=== PATIENT | female | born 1935 | race Caucasian/White ===

== ENCOUNTER 2018-01-11 13:38 | Inpatient (IN) | payer OTHER ==
[2018-01-11] MEDS ORDERED: PANTOPRAZOLE 40 MG INJ ONE (15:44)
[2018-01-11] MEDS ORDERED: CEFTRIAXONE 1000 MG/VIAL ONE (15:44)
[2018-01-11] MEDS ORDERED: LEVALBUTEROL 1.25 MG/3 ML NEB ONE (15:44)
[2018-01-11] MEDS ORDERED: NA CHLORIDE 0.9% 0 ML IV ONE (15:44)
[2018-01-11] MEDS ORDERED: IPRATROPIUM BROM 0.5MG/2.5ML ONE (15:44)
[2018-01-11] MEDS ORDERED: NA CHLORIDE 0.9% 1,000 ML ONE ×2 (15:45→18:27)
[2018-01-11] MEDS ORDERED: AZITHROMYCIN 500 MG/250 ML BAG ONE (15:45)
[2018-01-11] MEDS ORDERED: CEFTRIAXONE/SWI 1gm 1 GM/10 ML SYR ONE (15:48)
[2018-01-11 16:13] LABS: Absolute Lymphocytes (CBC) 1.5 K/uL (0.7-4.9); Absolute Monocytes 0.6 K/uL (0.1-1.3); Absolute Neutrophil 6.2 K/uL (1.8-8.0); Basophils % 0.7 % (0-1.3); Eosinophils % 0.4 % (0-4.4); Hematocrit 34.2 % (36.0-45.0); Lymphocytes % 17.3 % (15.3-44.8); MCH 29.9 pg (27.0-35.0); MCV 91.1 fL (80-100); MPV 7.8 fL (7.6-11.3); Monocytes % 7.4 % (3.3-12.3); RBC Red Blood Cell Count 3.76 M/uL (3.86-4.86)
[2018-01-11 16:29] LABS: Protime INR 0.99
[2018-01-11 16:32] LABS: Potassium 3.9 mEq/L (3.6-5.0)
[2018-01-11 16:39] LABS: Albumin 3.7 g/dL (3.2-5.5); Bilirubin Direct 0.1 mg/dL (0-0.2); Bilirubin Total 0.7 mg/dL (0.3-1.2); Protein, Total 7.9 g/dL (6.0-8.3)
[2018-01-11 16:41] LABS: CKMB Creatine Kinase MB 1.3 ng/ml (0.3-4.0)
[2018-01-11 16:44] LABS: Magnesium 3.6 mg/dL (1.8-2.5)
--- NOTE | 2018-01-11 17:23 | ER ---
Nurse's Notes [facility] Name: Veena Gray Age: 83 yrs Sex: Female : 1935 Arrival Date: 01/11/2018 Time: 13:46 Bed 25 Private MD: Diagnosis: Weakness;Hypercalcemia;Hypermagnesemia;Unspecified kidney failure Presentation: 01/11 13:46 Presenting complaint: Patient states: I am sure I am having another UTI, I am being la1 treated for one and I cant get rid of it. I am very weak and having trouble getting up and down. Transition of care: patient was not received from another setting of care. Onset of symptoms was January 11, 2018. Initial Sepsis Screen: Does the patient meet any 2 criteria? No. Patient's initial sepsis screen is negative. Does the patient have a suspected source of infection? No. Patient's initial sepsis screen is negative. Care prior to arrival: None. 13:46 Method Of Arrival: Wheelchair la1 13:46 Acuity: RITIKA 3 la1 Historical: - Allergies: 13:47 Codeine; la1 13:47 Nitrofurantoin; la1 13:47 PENICILLINS; la1 13:47 Sulfa (Sulfonamide Antibiotics); la1 13:47 Macrobid; la1 - PMHx: 13:47 GERD; hiatal hernia; Myocardial infarction; Vertigo; la1 - Immunization history:: Adult Immunizations up to date. - Social history:: Smoking status: Patient/guardian denies using tobacco. - Family history:: not pertinent, pertinent for unknown. Screenin:18 Abuse screen: Denies threats or abuse. Denies injuries from another. Nutritional ed1 screening: No deficits noted. Tuberculosis screening: No symptoms or risk factors identified. Fall Risk No fall in past 12 months (0 pts). No secondary diagnosis (0 pts). No IV (0 pts). Ambulatory Aid- Crutches/Cane/Walker (15 pts). Gait- Weak (10 pts.). Mental Status- Oriented to own ability (0 pts). Total Vigil Fall Scale indicates Low Risk Score (25-44 pts). Fall prevention measures have been instituted. Side Rails Up X 2 Frequent Obs/Assesments occuring Family Present and informed to notify staff if they need to leave bedside As available Patient and Family Educated on Fall Prevention Program and strategies. Assessment: 14:18 General: Appears in no apparent distress. Behavior is calm, cooperative. Pain: Denies ed1 pain. Neuro: Level of Consciousness is awake, alert, obeys commands, Oriented to person, place, time, situation, Relocation Counselor are equal bilaterally Gait is weak. Speech slow. Facial symmetry appears normal, Pupils are PERRLA, Intact Reports blurred vision since 3-4 days ago weakness Denies dizziness, difficulty swallowing, paresthesias numbness headache photophobia diplopia. Cardiovascular: Denies chest pain, Heart tones S1 S2 present. Respiratory: Airway is patent Respiratory effort is even, unlabored, Breath sounds are clear bilaterally. GI: Abdomen is non-distended, Bowel sounds present X 4 quads. Abd is soft and non tender X 4 quads. Reports nausea, Patient currently denies diarrhea, vomiting. : Reports seeing urologist and previous treatment with Doxycycline for recurrent UTI's. EENT: No signs and/or symptoms were reported regarding the EENT system. Derm: Skin is intact, is thin, with poor turgor Skin is dry, Skin is normal, Skin temperature is warm. Musculoskeletal: Circulation, motion, and sensation intact. 14:18 Reassessment: I agree with assessment completed by FLOR Gonzalez . aa5 14:39 Reassessment: Patient appears in no apparent distress at this time. No changes from ed1 previously documented assessment. Patient and/or family updated on plan of care and expected duration. Pain level reassessed. Patient is alert, oriented x 3, equal unlabored respirations, skin warm/dry/pink. 16:15 Reassessment: Patient appears in no apparent distress at this time. No changes from mb3 previously documented assessment. Patient and/or family updated on plan of care and expected duration. Pain level reassessed. Patient is alert, oriented x 3, equal unlabored respirations, skin warm/dry/pink. Patient states symptoms have improved. Vital Signs: 13:47 BP 136 / 79; Pulse 77; Resp 19; Temp 98.3; Pulse Ox 100% on R/A; Weight 63.96 kg; la1 Height 5 ft. 3 in. (160.02 cm); 14:39 BP 167 / 66; Pulse 70; Resp 20; Pulse Ox 93% on R/A; Pain 0/10; ed1 16:14 BP 151 / 91; Pulse 72; Resp 20; Pulse Ox 100% on R/A; mb3 19:26 BP 149 / 49; Pulse 59; Resp 20; Pulse Ox 97% on R/A; mb3 13:47 Body Mass Index 24.98 (63.96 kg, 160.02 cm) la1 ED Course: 13:46 Patient arrived in ED. la1 13:47 Triage completed. la1 13:47 Arm band placed on left wrist. la1 14:10 Lisa Morales LVN is Primary Nurse. ed1 14:18 Patient has correct armband on for positive identification. Bed in low position. Call ed1 light in reach. Side rails up X2. Adult w/ patient. monitoring specialist on. Pulse ox on. NIBP on. Warm blanket given. 14:21 Awaiting ED provider evaluation. ed1 14:40 Resting quietly. Awaiting ED provider evaluation. ed1 14:40 Sridhar Acevedo MD is Attending Physician. [facility] 14:45 Primary Nurse role handed off by Lisa Morales LVN [facility] 14:45 Nelson Dawkins, RACH is Primary Nurse. 3 15:00 Inserted saline lock: 20 gauge in left antecubital area, using aseptic technique. Blood 3 collected. 15:17 Door closed. Warm blanket given. 3 15:51 X-ray completed. Portable x-ray completed in exam room. Patient tolerated procedure jw2 well. 15:51 XRAY Chest (1 view) In Process Unspecified. EDMS 16:50 Urine collected: clean catch specimen, clear, EKG done, by ED staff, reviewed by Sridhar Acevedo MD. 17:20 Vinay Sabillon MD is Hospitalizing Provider. [facility] 18:09 Removal of peripheral IV. Catheter intact, dressing applied. [facility] 18:10 T\T\S collected, blood band applied to patient. add on labs drawn by ar and sent to lab. [facility] Inserted saline lock: 20 gauge in right antecubital area, using aseptic technique. Blood collected. 18:16 CT completed. Patient tolerated procedure well. Patient moved back from CT. Patient bq moved back from radiology. 19:56 No provider procedures requiring assistance completed. Patient admitted, IV remains in [address]. Administered Medications: 15:40 Drug: NS 0.9% 1000 ml Route: IV; Rate: 125 ml/hr; Site: left antecubital; mb3 19:12 Follow up: Response: No adverse reaction mb3 19:13 Follow up: Response: No adverse reaction mb3 19:15 Follow up: IV Status: Infusion continued upon admission mb3 15:40 Drug: Xopenex 1.25 mg Route: Inhalation; mb3 15:40 Drug: AtroVENT Aerosol 0.5 mg Route: Inhalation; mb3 19:13 Follow up: Response: No adverse reaction mb3 15:45 Drug: ProTONIX 40 mg Route: IVP; Site: left antecubital; mb3 19:12 Follow up: Response: No adverse reaction mb3 15:46 Drug: Rocephin - (cefTRIAXone) 1 grams Route: IVPB; Infused Over: 10 mins; Site: left mb3 antecubital; 19:14 Follow up: Response: No adverse reaction; IV Status: Completed infusion mb3 15:50 Drug: Zithromax 500 mg Route: IVPB; Infused Over: 1 hrs; Site: left antecubital; mb3 19:14 Follow up: Response: No adverse reaction; IV Status: Completed infusion mb3 17:35 Drug: NS 0.9% 1000 ml Route: IV; Rate: 1 bolus; Site: left antecubital; mb3 19:13 Follow up: Response: No adverse reaction; IV Status: Completed infusion; IV Intake: mb3 1000ml 20:18 Follow up: Response: No adverse reaction; IV Status: Completed infusion; IV Intake: mb3 1000ml 19:04 Drug: NS 0.9% 500 ml Route: IV; Rate: bolus; Site: right antecubital; mb3 20:18 Follow up: Response: No adverse reaction; IV Status: Completed infusion; IV Intake: mb3 500ml 19:50 Drug: Lasix 40 mg Route: IVP; Site: right antecubital; mb3 20:19 Follow up: Response: No adverse reaction mb3 Intake: 19:13 IV: 1000ml; Total: 1000ml. mb3 20:18 IV: 1000ml; Total: 2000ml. mb3 20:18 IV: 500ml; Total: 2500ml. mb3 Outcome: 17:22 Decision to Hospitalize by Provider. miles 19:55 Admitted to Tele accompanied by tech, via stretcher, room 427, with chart, Report mb3 called to Laisha Reis RN 19:55 Condition: stable 19:55 Instructed on the need for admit. 20:20 Patient left the ED. mb3 Signatures: Dispatcher [employer] EDSridhar Frazier MD MD cha Quilty, Betty bq Calderon, Audri, RN RN aa5 Lisa Morales, AV SPECIALIST AV SPECIALIST ed1 Jeronimo Gomez RN RN amira1 Yesenia Hoover 2 Dina Pena 3 Nelson Dawkins RN RN mb3
--- NOTE | 2018-01-11 17:23 | EDPHYS ---
Physician Documentation [facility] Name: Veena Gray Age: 83 yrs Sex: Female : 1935 Arrival Date: 01/11/2018 Time: 13:46 Bed 25 Private MD: ED Physician Sridhar Acevedo HPI: 01/11 15:33 This 83 yrs old Female presents to ER via Wheelchair with complaints of miles General Weakness. 15:33 weakness, hemoptysis. Onset: The symptoms/episode began/occurred 1 week(s) ago. miles Severity of symptoms: At their worst the symptoms were mild. Historical: - Allergies: 13:47 Codeine; la1 13:47 Nitrofurantoin; la1 13:47 PENICILLINS; la1 13:47 Sulfa (Sulfonamide Antibiotics); la1 13:47 Macrobid; la1 - PMHx: 13:47 GERD; hiatal hernia; Myocardial infarction; Vertigo; la1 - Immunization history:: Adult Immunizations up to date. - Social history:: Smoking status: Patient/guardian denies using tobacco. - Family history:: not pertinent, pertinent for unknown. ROS: 15:33 Constitutional: Negative for fever, chills, and weight loss, Eyes: Negative for injury, miles pain, redness, and discharge, ENT: Negative for injury, pain, and discharge, Neck: Negative for injury, pain, and swelling, Cardiovascular: Negative for chest pain, palpitations, and edema, Respiratory: Negative for shortness of breath, cough, wheezing, and pleuritic chest pain, Abdomen/GI: Negative for abdominal pain, nausea, vomiting, diarrhea, and constipation, Back: Negative for injury and pain, : Negative for injury, bleeding, discharge, and swelling, MS/Extremity: Negative for injury and deformity, Skin: Negative for injury, rash, and discoloration, Neuro: Negative for headache, weakness, numbness, tingling, and seizure, Psych: Negative for depression, anxiety, suicide ideation, homicidal ideation, and hallucinations, Allergy/Immunology: Negative for hives, rash, and allergies. Exam: 15:33 Constitutional: This is a well developed, well nourished patient who is awake, alert, miles and in no acute distress. Head/Face: Normocephalic, atraumatic. Eyes: Pupils equal round and reactive to light, extra-ocular motions intact. Lids and lashes normal. Conjunctiva and sclera are non-icteric and not injected. Cornea within normal limits. Periorbital areas with no swelling, redness, or edema. ENT: Nares patent. No nasal discharge, no septal abnormalities noted. Tympanic membranes are normal and external auditory canals are clear. Oropharynx with no redness, swelling, or masses, exudates, or evidence of obstruction, uvula midline. Mucous membranes moist. Neck: Trachea midline, no thyromegaly or masses palpated, and no cervical lymphadenopathy. Supple, full range of motion without nuchal rigidity, or vertebral point tenderness. No Meningismus. Chest/axilla: Normal chest wall appearance and motion. Nontender with no deformity. No lesions are appreciated. Cardiovascular: Regular rate and rhythm with a normal S1 and S2. No gallops, murmurs, or rubs. Normal PMI, no JVD. No pulse deficits. Respiratory: Lungs have equal breath sounds bilaterally, clear to auscultation and percussion. No rales, rhonchi or wheezes noted. No increased work of breathing, no retractions or nasal flaring. Back: No spinal tenderness. No costovertebral tenderness. Full range of motion. Female : Normal external genitalia. Skin: Warm, dry with normal turgor. Normal color with no rashes, no lesions, and no evidence of cellulitis. 15:33 Abdomen/GI: Rectal exam: rectal tone normal, Stool: brown, hemorrhoid(s). Vital Signs: 13:47 BP 136 / 79; Pulse 77; Resp 19; Temp 98.3; Pulse Ox 100% on R/A; Weight 63.96 kg; la1 Height 5 ft. 3 in. (160.02 cm); 14:39 BP 167 / 66; Pulse 70; Resp 20; Pulse Ox 93% on R/A; Pain 0/10; ed1 16:14 BP 151 / 91; Pulse 72; Resp 20; Pulse Ox 100% on R/A; mb3 19:26 BP 149 / 49; Pulse 59; Resp 20; Pulse Ox 97% on R/A; mb3 13:47 Body Mass Index 24.98 (63.96 kg, 160.02 cm) la1 MDM: 14:40 Patient medically screened. [facility] 15:35 Data reviewed: half-way records. [facility] 01/11 15:31 Order name: Basic Metabolic Panel; Complete Time: 16:51 [facility] 01/11 15:31 Order name: BNP; Complete Time: 16:51 [facility] 01/11 15:31 Order name: CBC with Diff; Complete Time: 16:51 [facility] 01/11 15:31 Order name: Ckmb; Complete Time: 16:51 [facility] 01/11 15:31 Order name: CPK; Complete Time: 16:51 [facility] 01/11 15:31 Order name: LFT's; Complete Time: 16:51 [facility] 01/11 15:31 Order name: Magnesium; Complete Time: 16:51 [facility] 01/11 15:31 Order name: PT-INR; Complete Time: 16:51 [facility] 01/11 15:31 Order name: Ptt, Activated; Complete Time: 16:51 [facility] 01/11 15:31 Order name: Troponin (emerg Dept Use Only); Complete Time: 16:51 [facility] 01/11 15:31 Order name: Lipase; Complete Time: 16:51 [facility] 01/11 15:31 Order name: Blood Culture Adult (2) [facility] 01/11 15:31 Order name: Urine Culture [facility] 01/11 15:31 Order name: Type And Screen [facility] 01/11 15:31 Order name: XRAY Chest (1 view); Complete Time: 18:44 [facility] 01/11 17:16 Order name: Chest Abd Pelvis Wo Con; Complete Time: 18:44 EDMS 01/11 17:26 Order name: Urine Dipstick--Ancillary (enter results) ag 01/11 17:26 Order name: Urine Dipstick-Ancillary EDNE 01/11 17:26 Order name: Pth,Intact ag 01/11 17:26 Order name: PTH Intact EDNE 01/11 17:37 Order name: Vitamin D, 25 (OH), TOTAL EDMS 01/11 17:37 Order name: Vitamin D,1,25 Dihydroxy EDNE 01/11 15:31 Order name: EKG; Complete Time: 15:32 [facility] 01/11 15:31 Order name: Cardiac monitoring; Complete Time: 15:39 [facility] 01/11 15:31 Order name: EKG - Nurse/Tech; Complete Time: 16:50 [facility] 01/11 15:31 Order name: IV Saline Lock; Complete Time: 15:39 [facility] 01/11 15:31 Order name: Labs collected and sent; Complete Time: 15:39 [facility] 01/11 15:31 Order name: O2 Per Protocol; Complete Time: 15:39 [facility] 01/11 15:31 Order name: O2 Sat Monitoring; Complete Time: 15:39 [facility] 01/11 15:31 Order name: Urine Dipstick-Ancillary (obtain specimen); Complete Time: 16:50 [facility] 01/11 17:31 Order name: CONS Physician Consult; Complete Time: 19:12 EDMS Administered Medications: 15:40 Drug: NS 0.9% 1000 ml Route: IV; Rate: 125 ml/hr; Site: left antecubital; mb3 19:12 Follow up: Response: No adverse reaction mb3 19:13 Follow up: Response: No adverse reaction mb3 19:15 Follow up: IV Status: Infusion continued upon admission mb3 15:40 Drug: Xopenex 1.25 mg Route: Inhalation; mb3 15:40 Drug: AtroVENT Aerosol 0.5 mg Route: Inhalation; mb3 19:13 Follow up: Response: No adverse reaction mb3 15:45 Drug: ProTONIX 40 mg Route: IVP; Site: left antecubital; mb3 19:12 Follow up: Response: No adverse reaction mb3 15:46 Drug: Rocephin - (cefTRIAXone) 1 grams Route: IVPB; Infused Over: 10 mins; Site: left mb3 antecubital; 19:14 Follow up: Response: No adverse reaction; IV Status: Completed infusion mb3 15:50 Drug: Zithromax 500 mg Route: IVPB; Infused Over: 1 hrs; Site: left antecubital; mb3 19:14 Follow up: Response: No adverse reaction; IV Status: Completed infusion mb3 17:35 Drug: NS 0.9% 1000 ml Route: IV; Rate: 1 bolus; Site: left antecubital; mb3 19:13 Follow up: Response: No adverse reaction; IV Status: Completed infusion; IV Intake: mb3 1000ml 20:18 Follow up: Response: No adverse reaction; IV Status: Completed infusion; IV Intake: mb3 1000ml 19:04 Drug: NS 0.9% 500 ml Route: IV; Rate: bolus; Site: right antecubital; mb3 20:18 Follow up: Response: No adverse reaction; IV Status: Completed infusion; IV Intake: mb3 500ml 19:50 Drug: Lasix 40 mg Route: IVP; Site: right antecubital; mb3 20:19 Follow up: Response: No adverse reaction mb3 Disposition: 01/11/18 17:22 Hospitalization ordered by Vinay Sabillon for Inpatient Admission. Preliminary diagnosis are Weakness, Hypercalcemia, Hypermagnesemia, Unspecified kidney failure. - Bed requested for Telemetry/MedSurg (Inpatient). - Status is Inpatient Admission. mb3 - Condition is Serious. - Problem is new. - Symptoms have improved. UTI on Admission? No Signatures: Dispatcher [employer] EDNE Sridhar Acevedo MD MD cha Attema, Lee RN RN la1 Randa Arredondo RN RN df Nelson Dawkins RN RN mb3 Corrections: (The following items were deleted from the chart) 17:16 15:32 Chest Abdomen Pelvis W Con+CT.RAD.BRZ ordered. [facility] 18:40 17:22 Hospitalization Ordered by Vinay Sabillon MD for Inpatient Admission. df Preliminary diagnosis is Weakness; Hypercalcemia; Hypermagnesemia; Unspecified kidney failure. Bed requested for Telemetry/MedSurg (Inpatient). Status is Inpatient Admission. Condition is Serious. Problem is new. Symptoms have improved. UTI on Admission? No. miles 20:20 18:40 01/11/2018 17:22 Hospitalization Ordered by Vinay Sabillon MD for Inpatient mb3 Admission. Preliminary diagnosis is Weakness; Hypercalcemia; Hypermagnesemia; Unspecified kidney failure. Bed requested for Telemetry/MedSurg (Inpatient). Status is Inpatient Admission. Condition is Serious. Problem is new. Symptoms have improved. UTI on Admission? No. df
[2018-01-11 17:40] LABS: Urine Blood TRACE (NEG); Urine Glucose NEGATIVE (NEG); Urine Protein TRACE (NEG); Urine Specific Gravity 1.015 (1.005-1.030)
--- NOTE | 2018-01-11 18:19 | P.HP ---
Certification for Inpatient With expected LOS: >2 Midnights Practitioner: I am a practitioner with admitting privileges, knowledge of patient current condition, hospital course, and medical plan of care. Services: Services provided to patient in accordance with Admission requirements found in Title 42 Section 412.3 of the Code of Federal Regulations Patient History Date of Service: 01/11/18 Primary Care Provider: Dr. Vega Reason for admission: Hypercalcemia and weakness History of Present Illness: Patient is 83 years of age has been complaining of performed weakness unable to ambulate she dates back to December 27 denies any polydipsia poly urea no history of malignancies quit smoking a long time ago no prior history of hypercalcemia Allergies codeine Allergy (Mild, Verified 07/02/16 17:22) upset stomach nitrofurantoin [From Macrobid] Allergy (Verified 07/02/16 17:22) Shortness of breath Penicillins Allergy (Verified 07/02/16 17:22) Hives Sulfa (Sulfonamide Antibiotics) Allergy (Verified 07/02/16 17:22) Hives Home Medications: Aspirin [Aspirin EC 325 MG] 325 mg PO DAILY #30 tablet. 07/12/16 Cholecalciferol (Vitamin D3) [Vitamin D 5,000 IU Cap*] 5,000 unit PO DAILY #30 cap 07/12/16 Cholecalciferol (Vitamin D3) [Vitamin D3] 5,000 unit PO DAILY #30 capsule Cranberry Fruit Extract [Cranberry] 500 mg PO DAILY #30 tablet 07/12/16 Ferrous Sulfate [Feosol] 325 mg PO BID #60 tablet 07/12/16 Hydralazine [Apresoline*] 25 mg PO BID #60 tab 07/12/16 Lactobacillus Acidophilus [Probiotic] 1 cap PO DAILY #30 capsule 07/12/16 Levothyroxine [Synthroid*] 1 tab PO DAILY #30 tab 07/12/16 Magnesium Oxide [Mag 0X*] 400 mg PO BID #60 tab 07/12/16 Oxybutinin Er 5mg 1 tab PO DAILY #30 07/12/16 Pantoprazole [Protonix Tab*] 40 mg PO DAILYAC #30 tab 07/12/16 Ramipril [Altace*] 5 mg PO DAILY #30 cap 07/12/16 Sertraline [Zoloft*] 12.5 mg PO BEDTIME #30 tab 07/12/16 - Past Medical/Surgical History Diabetic: No -: Hypertension -: Coronary artery disease -: Chronic renal disease -: Orthostatics hypotension -: Osteoporosis -: Osteoarthritis -: GERD -: Depression with anxiety -: Hypothyroidism -: GERD surgery -: History of chest tube placements x3 -: History of heart catheterization -: Cholecystectomy -: Hysterectomy -: Right knee surgery -: R hip surgery Psychosocial/ Personal History: She is , she has 3 children, she lives at home, 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 - Family History Mother -: Cancer Notes: PT states, " She from "Old Age", she was 89." Father -: Stroke Notes: from abdominal aneurysm - Social History Alcohol use: No CD- Drugs: No Caffeine use: Yes Review of Systems 10-point ROS is otherwise unremarkable General: Weakness Physical Examination - Vital Signs Temperature: 98.3 F Blood Pressure: 136/79 Pulse: 77 Respirations: 14 Pulse Ox (%): 100 (Room-air) - Physical Exam General: Alert, Oriented x3 HEENT: Atraumatic Neck: Supple Respiratory: Clear to auscultation bilaterally Cardiovascular: No edema, Normal S1 S2 Gastrointestinal: Normal bowel sounds, Soft and benign Musculoskeletal: No clubbing, No contractures Integumentary: No rashes, No breakdown Neurological: Normal speech - Studies Laboratory Data (last 24 hrs) 01/11/18 15:00: PT 11.7, INR 0.99, APTT 25.5 01/11/18 15:00: WBC 8.4, Hgb 11.2 L, Hct 34.2 L, Plt Count 401 01/11/18 15:00: B-Natriuretic Peptide 397 H 01/11/18 15:00: Sodium 131 L, Potassium 3.9, BUN 32 H, Creatinine 2.97 H, Glucose 125 H, Magnesium 3.6 H* D, Total Bilirubin 0.7, AST 26, ALT 30, Alkaline Phosphatase 59, Lipase 31 Assessment and Plan - Problems (Diagnosis) (1) Hypercalcemia Current Visit: Yes Status: Acute Plan: Patient is 83 years of age admitted with profound weakness since made the 5th she has hypercalcemia hypermagnesemia renal failure white count is normal chest x-ray no obvious lung mass CT scan pending she is probably volume depleted from our hypercalcemia continue with IV fluids serum PTH level ordered nephrology consulted nasal calcitonin results of CT in pending urinalysis is negative - Advance Directives Does patient have a Living Will: No Does patient have a Durable POA for Healthcare: No
[2018-01-11] MEDS ORDERED: NA CHLORIDE 0.9% 500 ML ONE (18:27)
--- NOTE | 2018-01-11 18:36 | RAD REPORT ---
EXAM DESCRIPTION: CT - Chest Abd Pelvis Wo Con - 01/11/2018 6:15 pm CLINICAL HISTORY: Chest and abdominal pain. Urinary tract infection COMPARISON: None TECHNIQUE: Computed axial tomography of the chest, abdomen and pelvis was obtained. Oral contrast wa s given. IV contrast was not requested. All CT scans are performed using dose optimization technique as appropriate and may include automated exposure control or mA/KV adjustment according to patient size. FINDINGS: The evaluation of mediastinum, daylin, vessels and solid organs is limited secondary to the lack of IV contrast administration No mediastinal or hilar lymphadenopathy is seen. A pleural effusion is not present. A pericardial effusion is not seen. Mild pleural thickening is pre sent A lung consolidation is not present. A 11 millimeter right lower lobe nodule is present. Chronic appe aring interstitial lung opacities are noted. A large hiatal hernia is present. Contrast is present within the esophagus. The liver, spleen, pancreas, adrenals and right kidney appear grossly normal. A 13 millimeter mass ex tends off of the left kidney. There is no evidence of diverticulitis. The appendix is normal. A neurostimulator device is in place. IMPRESSION: Large hiatal hernia with gastroesophageal reflux 11 millimeter right lower lobe nodule. Further evaluation could be obtained with nuclear Medicine PET scan. Alternatively the patient have a followup CT in 3 months to assess stability 13 millimeter left renal mass. Ultrasound is recommended
--- NOTE | 2018-01-11 18:42 | RAD REPORT ---
EXAM DESCRIPTION: Angelia Single View01/11/2018 3:53 pm CLINICAL HISTORY: Cough COMPARISON: May 2017 FINDINGS: Bilateral pulmonary opacities are without significant change and most if not all are chron ic. The heart remains enlarged. A large hiatal hernia is seen IMPRESSION: No acute abnormalities displayed
[2018-01-11] MEDS ORDERED: FUROSEMIDE 40 MG/4 ML VIAL ONE (19:33)
[2018-01-11] MEDS: NA CHLORIDE 0.9% 1,000 ML IV SCH (20:31)
[2018-01-11] MEDS: CALCITONIN NASAL SPRAY 200 IU/DOSE NAS SCH (20:31)
[2018-01-11 21:21] VITALS: BMI 25.0
[2018-01-12] MEDS: NA CHLORIDE 0.9% 1,000 ML IV SCH ×4 (03:56→17:54)
[2018-01-12] MEDS: HYDRALAZINE HCL 20 MG/ML VIAL IV PRN ×2 (05:21→15:43)
[2018-01-12 06:02] LABS: Bilirubin Total 0.5 mg/dL (0.3-1.2); Potassium 3.2 mEq/L (3.6-5.0); Protein, Total 6.3 g/dL (6.0-8.3)
--- NOTE | 2018-01-12 08:01 | EKG ---
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
[2018-01-12] MEDS: CALCITONIN NASAL SPRAY 200 IU/DOSE NAS SCH (11:02)
--- NOTE | 2018-01-12 13:50 | RAD REPORT ---
EXAM DESCRIPTION: US - Renal Ultrasound-Complete - 01/12/2018 1:38 pm CLINICAL HISTORY: Acute renal failure COMPARISON: 01/11/2018 CT study FINDINGS: Both kidneys are normal in size, shape and echotexture. The right kidney measures 9.1 x 5.0 x 4.0 cm. No hydronephrosis, focal mass or perinephric fluid. The left kidney measures 9.2 x 4.9 x 4.5 cm. No hydronephrosis, focal mass or perinephric fluid. 20 x 15 mm anechoic cyst is present with a small adjacent calcification. IMPRESSION: Mildly complicated left renal cyst, otherwise negative study.
--- NOTE | 2018-01-12 15:20 | P.PN ---
Subjective Date of Service: 01/12/18 Primary Care Provider: Dr. Vega Chief Complaint: Hypercalcemia and weakness pt seen and examined at bedside. Chart Reviewed and case DW with nephrology. Currently pt states she still feels weak and has been having generalized weakness in her legs more than anywhere else. Review of Systems General: As per HPI Physical Examination - Vital Signs Temperature: 97.4 F Blood Pressure: 197/77 Pulse: 81 Respirations: 18 Pulse Ox (%): 96 - Physical Exam General: Alert, In no apparent distress HEENT: Atraumatic, PERRLA, EOMI Neck: Supple, JVD not distended Respiratory: Clear to auscultation bilaterally, Normal air movement Cardiovascular: Regular rate/rhythm, Normal S1 S2 Gastrointestinal: Normal bowel sounds, No tenderness Musculoskeletal: No tenderness Integumentary: No rashes Neurological: Normal speech, Normal tone, Normal affect Lymphatics: No axilla or inguinal lymphadenopathy - Studies Laboratory Data (last 24 hrs) 01/11/18 15:00: PT 11.7, INR 0.99, APTT 25.5 01/11/18 15:00: WBC 8.4, Hgb 11.2 L, Hct 34.2 L, Plt Count 401 01/11/18 15:00: B-Natriuretic Peptide 397 H 01/11/18 15:00: Sodium 131 L, Potassium 3.9, BUN 32 H, Creatinine 2.97 H, Glucose 125 H, Magnesium 3.6 H* D, Total Bilirubin 0.7, AST 26, ALT 30, Alkaline Phosphatase 59, Lipase 31 Medications List Reviewed: Yes Assessment & Plan - Problems (Diagnosis) (1) Hypercalcemia Current Visit: Yes Status: Acute Plan: Hypercalcemia of unkown etiology. However most likely related to Ca treatment and infusion for osteoporosis -Pt has been taking Ca supplement for osteoporosis along with infusion every 6 months as well -Currently Ca supplementation on hold -IV fluids and Lasix. Ca improving today -CT chest negative for any mass -Nephrology consulted. Appreciated reccs (2) Chronic kidney disease Current Visit: No Status: Chronic Qualifiers: Chronic kidney disease stage: stage 3 (moderate) Qualified Code(s): N18.3 - Chronic kidney disease, stage 3 (moderate) (3) Coronary artery disease Current Visit: No Status: Chronic Qualifiers: Coronary Disease-Associated Artery/Lesion type: unspecified vessel or lesion type [place] vs. transplanted heart: unspecified whether [place] or transplanted heart Associated angina: angina presence unspecified Qualified Code(s): I25.10 - Atherosclerotic heart disease of [place] coronary artery without angina pectoris (4) GERD (gastroesophageal reflux disease) Current Visit: No Status: Chronic Qualifiers: Esophagitis presence: esophagitis presence not specified Qualified Code(s) : K21.9 - Gastro-esophageal reflux disease without esophagitis (5) Hypertension Current Visit: No Status: Chronic Qualifiers: Hypertension type: essential hypertension Qualified Code(s): I10 - Essential (primary) hypertension (6) Hypothyroidism Current Visit: No Status: Chronic Qualifiers: Hypothyroidism type: unspecified Qualified Code(s): E03.9 - Hypothyroidism , unspecified (7) Pulmonary fibrosis Current Visit: No Status: Chronic Discharge Plan: Home Plan to discharge in: 24 Hours - Code Status/Comfort Care Code Status Assessed: Yes Critical Care: No
[2018-01-12 15:45] LABS: Potassium 3.1 mEq/L (3.6-5.0)
[2018-01-12 15:47] LABS: Magnesium 2.7 mg/dL (1.8-2.5); Phosphorus 3.2 mg/dL (2.5-4.3)
--- NOTE | 2018-01-12 17:13 | CON ---
History Of Present Illness: This is a pleasant lady who was admitted to the hospital. She was admit randolph to the hospital for weakness and difficulty ambulating. She was found to have hypercalcemia. I was called to evaluate a finding on the left kidney 11 mm x 13 mm left renal mass. Apparently, she h as had this for years, 6-7 years intermittently. She was evaluated at [facility]. She also sa nohemy Peng while she was here and when she left she sent all her records and patient to Dr. Duong in [place] to follow this. She is here in the hospital now for hypercalcemia. Cyst seems stable, I do not have any more recommendation for a mass that has been stable for 7 years. I do not think we need to worry about her much anymore. We have her follow up with her urologist, Dr. Duong in [place] and she needs something done. She is welcome to see me if she wishes to do so, but I would not be aggressive with this mass anymore. Allergies: CODEINE CAUSES UPSET STOMACH. NITROFURANTOIN, SHORTNESS OF BREATH. PENICILLIN CAUSE HIV ES. SULFA CAUSE HIVES. Home Medications: Aspirin, vitamin D3, cranberry, ferrous sulfate, hydralazine, acidophilus, probiot ic, Synthroid, magnesium oxide, oxybutynin, Protonix, ramipril, sertraline. Past Medical History: Hypertension, coronary artery disease, chronic renal disease stage 4, orthosta tic hypertension, osteoporosis, osteoarthritis, GERD, depression, anxiety, hypothyroidism, history of chest tube placements x3, history of cardiac cath, cholecystectomy, hysterectomy, right knee surgery , right hip surgery. Psychosocial/personal: She is , has 3 children. Lives at home. Retired [employer]. Family History: Mother has cancer. The patient's sister at 89 from old age. Father had a stroke and from abdominal aneurysm. Social History: No alcohol use. No drug use. No caffeine use. Review of Systems: A 10-point review of systems otherwise unremarkable. Physical Examination: Vital Signs: Afebrile, stable. General: She is alert, oriented x3. HEENT: Atraumatic, normocephalic. Respiratory: Clear. Cardiovascular: S1, S2. Gastrointestinal: Normal bowel sounds. Musculoskeletal: No clubbing. Skin: No rashes. Laboratory Data: White count 8.4, H and H 11 and 34, platelet 401. Coags normal. Chemistry: Sodium 135, potassium 3.2, chloride 98, carbon dioxide 30, BUN 30, creatinine 2.8, GFR 16, glucose 99, calc ium 12.4. Assessment: A 13 mm left renal mass that has been stable for years. She is seen at [facility], seen by Dr. Peng, now she is seen by Dr. Duong in [place]. This mass is not growing in size, it is s table. No need to be aggressive about it. Can follow up p.r.n. Follow up with Dr. Duong. WOJCIECH/LIDIA Voice ID: [id number] Report ID: [id number]
[2018-01-12] MEDS: FUROSEMIDE 40 MG/4 ML VIAL IV SCH (17:24)
[2018-01-12] MEDS: FERROUS SULFATE 325 MG TAB PO SCH (20:56)
[2018-01-12] MEDS: POTASSIUM 25 MEQ EFFERV TAB PO SCH (20:56)
[2018-01-12] MEDS: SERTRALINE HCL 50 MG TAB PO SCH (20:57)
[2018-01-12] MEDS: NIFEDIPINE XL 30 MG TABLET PO SCH (20:57)
[2018-01-12] MEDS: FOLIC ACID 1 MG TABLET PO SCH (20:58)
[2018-01-13] MEDS: NA CHLORIDE 0.9% 1,000 ML IV SCH ×4 (00:20→21:19)
[2018-01-13] MEDS: FUROSEMIDE 40 MG/4 ML VIAL IV SCH (01:00)
--- NOTE | 2018-01-13 02:38 | CON ---
Date of Consultation: 01/12/2018 Chief Complaint: Acute kidney injury. History Of Present Illness: Acute kidney injury, severe nonoliguric, associated with electrolyte abnormalities. The patient was found to have severe hypercalcemia. Calcium level was up to 14.7. The patient has nonoliguric urine output. She is started on IV normal saline for volume control and hypovolemia correction. The patient is on normal saline as well as IV Lasix to control hypercalcemia. The patient was started on calcitonin to control hypercalcemia. Intact PTH was evaluated and is suppressed. 25-hydroxy vitamin D level is 67.5, within normal limits. The patient has multiple medical problems. She has history of kidney complex cyst. According to the patient, previous followup with urologist was in [place] for kidney mass. The patient was seen by power generation technician in [place]. The patient came to the hospital because of generalized weakness. She was lethargic and could not ambulate. She is an 83-year-old woman complaining of weakness, was unable to ambulate since 12/27/2017. She was complaining of polydipsia and polyuria. There is history of complex renal cyst. She has a previous history of tobacco, used to smoke 1 pack per day and quit smoking 20 years ago. She used to smoke for about 20 years. The patient has history of hypertension, was taking Ramipril 5 mg a day and hydralazine 25 mg twice a day. Review of Systems: General: Weakness, polyuria. Eyes: Denies vision changes. Ears, nose, mouth, and Throat: Denies sore throat or earache. Respiratory: Denies PND or orthopnea. Cardiovascular: Denies chest pain or palpitation. GI: Denies nausea or vomiting. : Denies dysuria or hematuria. Has polyuria. Denies urinary retention. All other system reviewed and all are negative. Past Medical History: Hypertension, coronary artery disease, chronic kidney disease stage 3, orthostatic hypotension, osteoporosis, osteoarthritis, depression with anxiety, hypothyroidism. Past Surgical History: History of chest tube placement, history of cardiac catheterization, cholecystectomy, hysterectomy, right knee surgery, and right hip surgery. Laboratory Data: Blood work; sodium 131, potassium 3.9, chloride 89, CO2 of 35. BUN 32, creatinine 2.97, glucose 125, calcium 14.7, magnesium 3.6, albumin 3.7, total protein 7.9. Intact PTH is 11. Today blood work showed calcium 11.7, magnesium 2.7, phosphorus 3.2, potassium 3.1, chloride 99, CO2 of 30. Impression And Plan: 1. Severe acute kidney injury, nonoliguric, associated with hypovolemia, RACHAEL inhibitor effect, as well as a hypercalcemia leading to polyuria and volume depletion. The patient is to continue IV fluids with normal saline for hydration and volume expansion. 2. Hypercalcemia. The patient will continue normal saline and Lasix to treat hypercalcemia. Vitamin D level is within normal and intact PTH is suppressed. Plan is to check for any evidence of monoclonal gammopathy of unknown significance. The patient has history of kidney mass. Urology was consulted for kidney mass. 3. Hypokalemia, replacement as needed. Monitor magnesium level. 4. Diabetes, monitor blood glucose closely , adjust insulin treatment. PINEDA/LIDIA Voice ID: [id number] Report ID: [id number] MARIBETH
[2018-01-13 07:04] LABS: Protein, Total 6.3 g/dL (6.0-8.3)
[2018-01-13 07:08] LABS: Bilirubin Total 0.6 mg/dL (0.3-1.2)
[2018-01-13 07:11] LABS: Potassium 2.9 mEq/L (3.6-5.0)
[2018-01-13] MEDS: LEVOTHYROXINE SOD 0.075 MG TAB PO SCH (08:49)
[2018-01-13] MEDS: OXYBUTYNIN ER 5 MG TAB PO SCH (08:49)
[2018-01-13] MEDS: POTASSIUM 25 MEQ EFFERV TAB PO SCH ×2 (08:50→21:22)
[2018-01-13] MEDS: CALCITONIN NASAL SPRAY 200 IU/DOSE NAS SCH (08:50)
[2018-01-13] MEDS: FERROUS SULFATE 325 MG TAB PO SCH ×2 (08:50→21:21)
[2018-01-13] MEDS ORDERED: FUROSEMIDE 40 MG/4 ML VIAL IV ONE ×2 (12:37→13:33)
[2018-01-13] MEDS: HYDRALAZINE HCL 20 MG/ML VIAL IV PRN ×2 (12:38→15:42)
[2018-01-13] MEDS ORDERED: POTASSIUM 25 MEQ EFFERV TAB PO ONE (12:38)
[2018-01-13] MEDS ORDERED: NA CHLORIDE 0.9% 2,000 ML IV SCH (13:00)
[2018-01-13] MEDS: NA CHLORIDE 0.9% 2,000 ML IV ONE ×2 (13:31→15:06)
--- NOTE | 2018-01-13 13:33 | P.PN ---
Subjective Date of Service: 01/13/18 Primary Care Provider: Dr. Vega Chief Complaint: Hypercalcemia and weakness pt seen and examined at bedside. Chart Reviewed and case DW with nephrology. Currently pt states she still feels weak but better than before. Loss IV access awaiting PICC line placement Review of Systems General: As per HPI Physical Examination - Vital Signs Temperature: 98.6 F Blood Pressure: 163/66 Pulse: 78 Respirations: 18 Pulse Ox (%): 97 - Physical Exam General: Alert, In no apparent distress HEENT: Atraumatic, PERRLA, EOMI Neck: Supple, JVD not distended Respiratory: Clear to auscultation bilaterally, Normal air movement Cardiovascular: Regular rate/rhythm, Normal S1 S2 Gastrointestinal: Normal bowel sounds, No tenderness Musculoskeletal: No tenderness Integumentary: No rashes Neurological: Normal speech, Normal tone, Normal affect Lymphatics: No axilla or inguinal lymphadenopathy - Studies Microbiology Data (last 24 hrs): 01/11/18 16:40 Clean Catch Urine [place] Count - Final BETWEEN 10,000 & 100,000 CFU/ML 01/11/18 16:40 Clean Catch Urine - Final Medications List Reviewed: Yes Assessment & Plan - Problems (Diagnosis) (1) Hypercalcemia Onset Date: 01/12/18 Current Visit: Yes Status: Acute Plan: Hypercalcemia of unkown etiology. However most likely related to Ca treatment and infusion for osteoporosis -Pt has been taking Ca supplement for osteoporosis along with infusion every 6 months as well -Currently Ca supplementation on hold -IV fluids and Lasix. Ca improving today -CT chest negative for any mass -Nephrology consulted. Appreciated reccs (2) Chronic kidney disease Current Visit: No Status: Chronic Qualifiers: Chronic kidney disease stage: stage 3 (moderate) Qualified Code(s): N18.3 - Chronic kidney disease, stage 3 (moderate) (3) Coronary artery disease Current Visit: No Status: Chronic Qualifiers: Coronary Disease-Associated Artery/Lesion type: unspecified vessel or lesion type [place] vs. transplanted heart: unspecified whether [place] or transplanted heart Associated angina: angina presence unspecified Qualified Code(s): I25.10 - Atherosclerotic heart disease of [place] coronary artery without angina pectoris (4) GERD (gastroesophageal reflux disease) Current Visit: No Status: Chronic Qualifiers: Esophagitis presence: esophagitis presence not specified Qualified Code(s) : K21.9 - Gastro-esophageal reflux disease without esophagitis (5) Hypertension Current Visit: No Status: Chronic Qualifiers: Hypertension type: essential hypertension Qualified Code(s): I10 - Essential (primary) hypertension (6) Hypothyroidism Current Visit: No Status: Chronic Qualifiers: Hypothyroidism type: unspecified Qualified Code(s): E03.9 - Hypothyroidism , unspecified (7) Pulmonary fibrosis Current Visit: No Status: Chronic Discharge Plan: Home Plan to discharge in: 24 Hours - Code Status/Comfort Care Code Status Assessed: Yes Critical Care: No
--- NOTE | 2018-01-13 14:55 | RAD REPORT ---
EXAM DESCRIPTION: RAD - Chest Single View - 01/13/2018 2:27 pm CLINICAL HISTORY: PICC line placement COMPARISON: January 11 FINDINGS: Portable chest was obtained following placement of a left upper extremity PICC line. The c atheter tip is in the distal SVC.
[2018-01-13] MEDS ORDERED: LIDOCAINE 1% MPF 5 ML VIAL IM PRN (16:00)
[2018-01-13] MEDS ORDERED: SODIUM CHLORIDE 0.9% 10ML INJ IV PRN ×2 (16:00)
--- NOTE | 2018-01-13 17:04 | PN ---
Subjective: The patient was admitted with hypercalcemia. The patient apparently taking vitamin D and calcitriol and calcium carbonate. The patient admitted with severe hypercalcemia and acute kidney injury. Physical Examination: Vital Signs: Blood pressure 155/68, pulse of 71, afebrile. The patient had good urine output. Chest: Clear to auscultation. Heart: S1, S2. Regular. Abdomen: Soft, nontender. Extremities: No edema. Laboratory Data: WBC 8.4, H and H 11/34.2, platelets 401. Sodium 134, potassium 2.9, bicarb 31, BUN 29, creatinine 3.1, GFR of 14, calcium 11.2. PTH of 11. Current Medications: The patient on its include hydralazine, nifedipine, folic acid, levothyroxine. Assessment And Plan: 1. Acute kidney injury secondary to calcium diuresis, prerenal, still on the dry side. I am going to go ahead and bolus the patient with another 2 L of IV fluid and we will give Lasix after. 2. Hypokalemia. We will supplement. 3. Hypercalcemia secondary to milk-alkali, vitamin D and calcium over dose as above. We will continue hydration. 4. Vitamin D deficiency. No need for vitamin D as I do not feel it is appropriate. ZULAY Voice ID: [id number] Report ID: [id number]
[2018-01-13] MEDS: FOLIC ACID 1 MG TABLET PO SCH (21:21)
[2018-01-13] MEDS: SERTRALINE HCL 50 MG TAB PO SCH (21:21)
[2018-01-13] MEDS: NIFEDIPINE XL 30 MG TABLET PO SCH (21:23)
[2018-01-13] MEDS: SODIUM CHLORIDE 0.9% 10ML INJ IV SCH (21:24)
[2018-01-14] MEDS: NA CHLORIDE 0.9% 1,000 ML IV SCH ×4 (04:17→23:00)
[2018-01-14] MEDS: HYDRALAZINE HCL 20 MG/ML VIAL IV PRN (05:19)
[2018-01-14 05:34] LABS: Albumin 3.1 g/dL (3.2-5.5); Magnesium 2.1 mg/dL (1.8-2.5); Phosphorus 2.1 mg/dL (2.5-4.3); Potassium 3.4 mEq/L (3.6-5.0)
[2018-01-14] MEDS: LEVOTHYROXINE SOD 0.075 MG TAB PO SCH (05:44)
[2018-01-14] MEDS: FERROUS SULFATE 325 MG TAB PO SCH ×2 (08:52→21:32)
[2018-01-14] MEDS: OXYBUTYNIN ER 5 MG TAB PO SCH (08:52)
[2018-01-14] MEDS: CALCITONIN NASAL SPRAY 200 IU/DOSE NAS SCH (08:53)
[2018-01-14] MEDS: SODIUM CHLORIDE 0.9% 10ML INJ IV SCH ×2 (08:53→21:00)
[2018-01-14] MEDS: POTASSIUM 25 MEQ EFFERV TAB PO SCH ×2 (08:53→21:32)
--- NOTE | 2018-01-14 12:10 | P.PN ---
Subjective Date of Service: 01/14/18 Primary Care Provider: Dr. Vega Chief Complaint: Hypercalcemia and weakness pt seen and examined at bedside. Chart Reviewed and case DW with nephrology. Currently pt states she still feels weak but better than before. Ca down to 9.4. Awaiting reccs from Nephrology Review of Systems General: As per HPI Physical Examination - Vital Signs Temperature: 97.5 F Blood Pressure: 141/62 Pulse: 82 Respirations: 18 Pulse Ox (%): 98 - Physical Exam General: Alert, In no apparent distress HEENT: Atraumatic, PERRLA, EOMI Neck: Supple, JVD not distended Respiratory: Clear to auscultation bilaterally, Normal air movement Cardiovascular: Regular rate/rhythm, Normal S1 S2 Gastrointestinal: Normal bowel sounds, No tenderness Musculoskeletal: No tenderness Integumentary: No rashes Neurological: Normal speech, Normal tone, Normal affect Lymphatics: No axilla or inguinal lymphadenopathy - Studies Microbiology Data (last 24 hrs): 01/11/18 16:40 Clean Catch Urine [place] Count - Final BETWEEN 10,000 & 100,000 CFU/ML 01/11/18 16:40 Clean Catch Urine - Final Medications List Reviewed: Yes Assessment & Plan - Problems (Diagnosis) (1) Hypercalcemia Onset Date: 01/12/18 Current Visit: Yes Status: Acute Plan: Hypercalcemia of unkown etiology. However most likely related to Ca treatment and infusion for osteoporosis -Pt has been taking Ca supplement for osteoporosis along with infusion every 6 months as well -Currently Ca supplementation on hold -Ca down to 9.4 now. Stop Lasix continue with Fluids -CT chest negative for any mass -Nephrology consulted. Appreciated reccs (2) Chronic kidney disease Current Visit: No Status: Chronic Qualifiers: Chronic kidney disease stage: stage 3 (moderate) Qualified Code(s): N18.3 - Chronic kidney disease, stage 3 (moderate) (3) Coronary artery disease Current Visit: No Status: Chronic Qualifiers: Coronary Disease-Associated Artery/Lesion type: unspecified vessel or lesion type [place] vs. transplanted heart: unspecified whether [place] or transplanted heart Associated angina: angina presence unspecified Qualified Code(s): I25.10 - Atherosclerotic heart disease of [place] coronary artery without angina pectoris (4) GERD (gastroesophageal reflux disease) Current Visit: No Status: Chronic Qualifiers: Esophagitis presence: esophagitis presence not specified Qualified Code(s) : K21.9 - Gastro-esophageal reflux disease without esophagitis (5) Hypertension Current Visit: No Status: Chronic Qualifiers: Hypertension type: essential hypertension Qualified Code(s): I10 - Essential (primary) hypertension (6) Hypothyroidism Current Visit: No Status: Chronic Qualifiers: Hypothyroidism type: unspecified Qualified Code(s): E03.9 - Hypothyroidism , unspecified (7) Pulmonary fibrosis Current Visit: No Status: Chronic
[2018-01-14] MEDS ORDERED: ACETAMINOPHEN 500 MG TAB PO PRN (16:58)
[2018-01-14] MEDS ORDERED: CALCIUM CARBONATE CHEW 500MG TAB PO PRN (17:18)
[2018-01-14] MEDS ORDERED: FUROSEMIDE 40 MG/4 ML VIAL IV ONE ×2 (20:00→23:06)
[2018-01-14] MEDS: SERTRALINE HCL 50 MG TAB PO SCH (21:30)
[2018-01-14] MEDS: FOLIC ACID 1 MG TABLET PO SCH (21:32)
[2018-01-14] MEDS: NIFEDIPINE XL 30 MG TABLET PO SCH (21:32)
[2018-01-15] MEDS: NA CHLORIDE 0.9% 1,000 ML IV SCH ×2 (01:50→09:14)
--- NOTE | 2018-01-15 02:28 | PN ---
Date of Progress Note: 01/14/2018 Subjective: The patient feeling better. No nausea. No vomiting. The patient admitted with hypercalcemia and acute kidney injury. On the recovery phase, the patient's calcium improved from 14 to 9.6. Physical Examination: Vital Signs: Blood pressure 141/65, pulse of 96. Chest: Clear to auscultation. Heart: S1, S2. Regular. Abdomen: Soft, nontender. Extremities: No edema. Laboratory Data: WBC 8.4, H and H 11.2/34.2, platelet 401. Sodium 134, potassium 3.4, bicarb 31. BUN 26 creatinine 2.9, calcium of 9.4, phosphorus 2.1 magnesium 2.1. Current Medications: The patient on include; 1. Calcitonin. 2. Levothyroxine. 3. Ferrous sulfate. 4. Tums. 5. Nifedipine. 6. Tylenol. 7. Sertraline. 8. Lasix. 9. IV fluid. Assessment And Plan: 1. Acute kidney injury, prerenal, secondary to calcium diuresis. I am going to continue hydration. We will give the patient extra dose of Lasix today and we will monitor. 2. Hypertension, controlled, optimal. Continue current medication. 3. Hypercalcemia secondary to milk-alkali. Resolved. I am going to discontinue any calcium supplement, discontinue vitamin D. We will give the patient a dose of Lasix and we will follow up after hydration. 4. Acute kidney injury on chronic kidney disease secondary to calcium. Diuresis. We do not know her baseline. We will request the record from old lasting machine operator bed. We will decrease her hydration for the time being and we will follow up. ZULAY Voice ID: [id number] Report ID: [id number] MARIBETH
[2018-01-15 07:25] LABS: Albumin 3.5 g/dL (3.2-5.5); Phosphorus 1.9 mg/dL (2.5-4.3); Potassium 3.3 mEq/L (3.6-5.0)
[2018-01-15] MEDS: SODIUM CHLORIDE 0.9% 10ML INJ IV SCH (09:00)
[2018-01-15] MEDS: POTASSIUM 25 MEQ EFFERV TAB PO SCH (09:08)
[2018-01-15] MEDS: FERROUS SULFATE 325 MG TAB PO SCH (09:08)
[2018-01-15] MEDS: OXYBUTYNIN ER 5 MG TAB PO SCH (09:14)
[2018-01-15] MEDS ORDERED: MAGNESIUM SULFATE 1 gm IVPB 1 GM/100 ML BAG IV ONE (11:37)
[2018-01-15 12:51] VITALS: BP 136/69; TEMP 99.5
[2018-01-15 13:14] LABS: Vitamin D 1,25-Dihydroxy Total 15 pg/mL (18-72); Vitamin D,1,25-OH2, D2 <8 pg/mL
--- NOTE | 2018-01-15 13:33 | P.DS ---
Admission Date: 01/11/18 Discharge Date: 01/15/18 Primary Care Provider: Dr. Vega Disposition: ROUTINE DISCHARGE Discharge Condition: GOOD Reason for Admission: Hypercalcemia and weakness Consultations: Nephrology - Problems (1) Hypercalcemia Onset Date: 01/12/18 Current Visit: Yes Status: Acute (2) Chronic kidney disease Current Visit: No Status: Chronic Qualifiers: Chronic kidney disease stage: stage 3 (moderate) Qualified Code(s): N18.3 - Chronic kidney disease, stage 3 (moderate) (3) Coronary artery disease Current Visit: No Status: Chronic Qualifiers: Coronary Disease-Associated Artery/Lesion type: unspecified vessel or lesion type [place] vs. transplanted heart: unspecified whether [place] or transplanted heart Associated angina: angina presence unspecified Qualified Code(s): I25.10 - Atherosclerotic heart disease of [place] coronary artery without angina pectoris (4) GERD (gastroesophageal reflux disease) Current Visit: No Status: Chronic Qualifiers: Esophagitis presence: esophagitis presence not specified Qualified Code(s) : K21.9 - Gastro-esophageal reflux disease without esophagitis (5) Hypertension Current Visit: No Status: Chronic Qualifiers: Hypertension type: essential hypertension Qualified Code(s): I10 - Essential (primary) hypertension (6) Hypothyroidism Current Visit: No Status: Chronic Qualifiers: Hypothyroidism type: unspecified Qualified Code(s): E03.9 - Hypothyroidism , unspecified (7) Pulmonary fibrosis Current Visit: No Status: Chronic Brief History of Present Illness: Patient is 83 years of age has been complaining of performed weakness unable to ambulate she dates back to December 27 denies any polydipsia poly urea no history of malignancies quit smoking a long time ago no prior history of hypercalcemia Hospital Course: Overall during the hospital stay patient remained stable Patient was initially admitted to the hospital for hypercalcemia at magnesium and generalized weakness. Patient has been taking calcium supplement along with calciferol vitamin-D and calcium infusion for her osteoporosis and chronic kidney disease. Patient was found to have hypercalcemia here in the hospital on day of admission along with burning media. Her calcium supplements were stopped at that time. Patient was started on IV fluids and Lasix here. Nephrology was consulted. Who agreed with the above plan. Patient's calcium improved markedly here in the hospital. Initially the levels above 12 however it did come down to 9.4. Patient was doing well overall. For her generalized weakness patient had physical therapy consulted worked with the patient here in the hospital and patient did well overall. Patient was able to ambulate 250 feet with a rolling walker and was then safe for discharge home with home health. Patient also had acute kidney injury while here in the hospital most likely secondary to her calcium infusion. Patient was asked to follow up with her primary care provider and her accounting coordinator once discharged from the hospital. Her creatinine improved markedly after the IV fluids and Lasix here in the hospital and this patient was discharged home under stable condition. Patient was also asked to stop her ramipril that she takes at home along with all her calcium supplements and vitamin-D supplements. Vital Signs/Physical Exam: Temp Pulse Resp BP Pulse Ox 99.5 F 89 16 136/69 94 01/15/18 12:00 01/15/18 12:00 01/15/18 12:00 01/15/18 12:00 01/15/18 12:00 General: Alert, In no apparent distress HEENT: Atraumatic, PERRLA, EOMI Neck: Supple, JVD not distended Respiratory: Clear to auscultation bilaterally, Normal air movement Cardiovascular: Regular rate/rhythm, Normal S1 S2 Gastrointestinal: Normal bowel sounds, No tenderness Musculoskeletal: No tenderness Integumentary: No rashes Neurological: Normal speech, Normal tone, Normal affect Lymphatics: No axilla or inguinal lymphadenopathy Laboratory Data at Discharge: WBC 8.4 K/uL (4.3-10.9) 01/11/18 15:00 Hgb 11.2 g/dL (12.0-15.0) L 01/11/18 15:00 Hct 34.2 % (36.0-45.0) L 01/11/18 15:00 Plt Count 401 K/uL (152-406) 01/11/18 15:00 PT 11.7 SECONDS (9.5-12.5) 01/11/18 15:00 INR 0.99 01/11/18 15:00 APTT 25.5 SECONDS (24.3-36.9) 01/11/18 15:00 Sodium 137 mEq/L (135-145) 01/15/18 06:21 Potassium 3.3 mEq/L (3.6-5.0) L 01/15/18 06:21 BUN 27 mg/dL (6-20) H 01/15/18 06:21 Creatinine 2.65 mg/dL (0.44-1.00) H 01/15/18 06:21 Glucose 95 mg/dL (65-120) 01/15/18 06:21 Phosphorus 1.9 mg/dL (2.5-4.3) L 01/15/18 06:21 Magnesium 2.1 mg/dL (1.8-2.5) D 01/14/18 04:55 Total Bilirubin 0.6 mg/dL (0.3-1.2) 01/13/18 05:47 AST 24 IU/L (10-42) 01/13/18 05:47 ALT 20 IU/L (10-60) 01/13/18 05:47 Alkaline Phosphatase 46 IU/L (42-121) 01/13/18 05:47 B-Natriuretic Peptide 397 pg/ml (<=100) H 01/11/18 15:00 Lipase 31 U/L (22-51) 01/11/18 15:00 Home Medications: Ferrous Sulfate [Feosol] 325 mg PO BID #60 tablet 07/12/16 Levothyroxine [Synthroid*] 1 tab PO DAILY #30 tab 07/12/16 Oxybutinin Er 5mg 1 tab PO DAILY #30 07/12/16 Sertraline [Zoloft*] 12.5 mg PO BEDTIME #30 tab 07/12/16 Folic Acid 0.8 mg PO BEDTIME 01/11/18 Nifedipine [Nifedipine ER] 30 mg PO BEDTIME 01/11/18 Patient Discharge Instructions: Please f/u with Nephrology and PCP in 1 to 2 days post discharge. NO new medication. STOP taking following medication. 1. Calcium, Cacitrol. 2. Vit D. 3. Ramipril. 4. Magnesium oxide. 5. Calcium Infusion. You were admitted to the hospital for Hypercalcemia due to extra calcium supplementation You are asked to stop taking it at this time. F/u with PCP for further treatment of osteoporosis Diet: Regular Activity: Ad demetrio Followup: Angelito Vega MD [Primary Care Provider] - 1-2 Days (CALL THE OFFICE TO MAKE AN APPOINTMENT IN 1-2 DAYS)
[2018-01-15 13:40] VITALS: O2SAT 94
--- NOTE | 2018-01-16 22:40 | DS ---
Date of Discharge: 01/15/2018 Subjective: The patient doing well status post calcitonin status post IV fluid. Calcium has dropped down significantly. Physical Examination: Vital Signs: When I saw the patient, blood pressure of 136/69, pulse of 89. Chest: Clear to auscultation. Heart: S1, S2. Regular. Systolic murmur. Abdomen: Soft nontender. EXTREMITY: No edema. Laboratory Data: H and H 11.3/34.2. Sodium 137, potassium 3.3, bicarb 26, BUN 26, creatinine 2.6, calcium 8.7, magnesium 1.9. Current Medications: Current medications the patient is on include Lasix and IV fluid. Current Medication: As above. Had IV iron, folic acid, hydralazine, Lasix 40 daily. Lidocaine, magnesium and nifedipine. Assessment And Plan: 1. Acute kidney injury secondary to calcium diuresis, recovered, resolved. 2. vitamin D intoxication The patient PTH suppress of 11. recover contionue the hydration 3. UTI, continue current antibiotic. 4. Hyponatremia, resolved. 5. Hypokalemia, hypomagnesemia we will supplement. 6. Obstructive uropathy status post cystoscopy we will follow up. ZULAY Voice ID: [id number] Report ID: [id number] MARIBETH
== END 2018-01-15 14:01 | disposition home or self-care (01) | DRG 641 ==
LOC: ER 13:38 → ERHOLD 17:25 → 4TH 20:07
PROVIDERS: ADMIT Internal Medicine Sleep Medicine; ATTEND Internal Medicine Sleep Medicine
PROC: 02HV33Z Insertion of Infusion Device into Superior Vena Cava, Percutaneous Approach (ICD-10-PCS; principal; 2018-01-13)
DX: E83.52 Hypercalcemia (principal); N17.9 Acute kidney failure, unspecified; I12.9 Hypertensive chronic kidney disease with stage 1 through stage 4 chronic kidney disease, or unspecified chronic kidney disease; N18.3 Chronic kidney disease, stage 3 (moderate); K21.9 Gastro-esophageal reflux disease without esophagitis; I25.10 Atherosclerotic heart disease of native coronary artery without angina pectoris; E03.9 Hypothyroidism, unspecified; J84.10 Pulmonary fibrosis, unspecified; E87.6 Hypokalemia; N28.89 Other specified disorders of kidney and ureter; Z88.0 Allergy status to penicillin; Z88.2 Allergy status to sulfonamides
CPT/HCPCS: 36415; 71045; 71250; 74176; 76770; 80048; 80053; 80069; 80076; 81003; 82306; 82550; 82553; 82652; 83690; 83735; 83880; 83970; 84100; 84132; 84484; 85025; 85610; 85730; 86850; 86900; 86901; 87040; 87086; 87088; 93005; 97163; 99285; C9113; J0360; J0456; J0696; J3475; J7030

== ENCOUNTER 2020-05-25 10:59 | Emergency (ER) | payer OTHER ==
--- NOTE | 2020-05-25 13:30 | ER ---
Nurse's Notes [facility] Name: Veena Gray Age: 85 yrs Sex: Female : 1935 Arrival Date: 05/25/2020 Time: 11:02 Bed 17 Private MD: Angelito Vega B Diagnosis: Pain in left arm Presentation: 05/25 11:09 Chief complaint: Patient states: Left arm pain and swelling for 6 days. No fever. Left ll1 elbow feels hot. Had compression stocking on, PMS intact. Coronavirus screen: Client denies travel out of the [place] in the last 14 days. At this time, the client does not indicate any symptoms associated with coronavirus-19. Ebola Screen: Patient denies travel to an Ebola-affected area in the 21 days before illness onset. Initial Sepsis Screen: Does the patient meet any 2 criteria? No. Patient's initial sepsis screen is negative. Risk Assessment: Do you want to hurt yourself or someone else? Patient reports no desire to harm self or others. Onset of symptoms was May 19, 2020. 11:09 Method Of Arrival: Wheelchair ll1 11:09 Acuity: RITIKA 3 ll1 13:29 Initial Sepsis Screen: Does the patient have a suspected source of infection? No. ph Patient's initial sepsis screen is negative. Historical: - Allergies: 11:09 Codeine; ll1 11:09 Macrobid; ll1 11:09 Nitrofurantoin; ll1 11:09 PENICILLINS; ll1 11:09 Sulfa (Sulfonamide Antibiotics); ll1 - PMHx: 11:09 GERD; hiatal hernia; Myocardial infarction; Vertigo; ll1 - Immunization history:: Flu vaccine is up to date. - Social history:: Smoking status: Patient denies any tobacco usage or history of. Screenin:58 Abuse screen: Denies threats or abuse. Denies injuries from another. Nutritional ph screening: No deficits noted. Tuberculosis screening: No symptoms or risk factors identified. Fall Risk None identified. Assessment: 12:30 General: Appears in no apparent distress. comfortable, well groomed, Behavior is calm, ph cooperative, appropriate for age, Denies fever, feeling ill. Pain: Complains of pain in left elbow. Neuro: Level of Consciousness is awake, alert, obeys commands, Oriented to person, place, time, situation. Cardiovascular: No deficits noted. Respiratory: No deficits noted. Derm: Skin is intact, is healthy with good turgor, Skin is pink, warm \T\ dry. Musculoskeletal: Circulation, motion, and sensation intact. Range of motion: intact in all extremities, Swelling present in dorsal aspect of proximal phalanx of left thumb and left elbow. Vital Signs: 11:09 BP 152 / 66; Pulse 74; Resp 17; Temp 98.1; Pulse Ox 96% ; Weight 61.23 kg; Height 5 ft. ll1 3 in. (160.02 cm); Pain 9/10; 13:15 BP 147 / 68; Pulse 67; Resp 18; Temp 97.8; Pulse Ox 100% on R/A; ph 11:09 Body Mass Index 23.91 (61.23 kg, 160.02 cm) ll1 ED Course: 11:02 Patient arrived in ED. mr 11:03 Angelito Vega MD is Private Physician. mr 11:11 Triage completed. ll1 11:11 Arm band placed on. ll1 11:53 Carmela Hill FNP-C [facility]. kb 11:53 Yusuf Ashley MD is Attending Physician. kb 11:58 Clarissa Mulligan, RACH is Primary Nurse. ph 11:59 Patient has correct armband on for positive identification. Bed in low position. Call ph light in reach. Side rails up X 1. Pulse ox on. NIBP on. Door closed. Noise minimized. 12:33 UPPER EXTREMITY VENOUS UNILATE In Process Unspecified. EDMS 13:29 Angelito Vega MD is Referral Physician. kb 13:40 No provider procedures requiring assistance completed. Patient did not have IV access ph during this emergency room visit. Administered Medications: No medications were administered Outcome: 13:29 Discharge ordered by . kb 13:42 Patient left the ED. ph 13:42 Discharged to home via wheelchair. ph 13:42 Condition: good 13:42 Discharge instructions given to patient, Instructed on discharge instructions, follow up and referral plans. Demonstrated understanding of instructions, follow-up care. Signatures: Dispatcher [employer] [facility] Carmela Hill FNP-C FNP-Robe Hardik Laisha mr Clarissa Mulligan RN RN ph Danis, Lynsay, RN RN ll1
--- NOTE | 2020-05-25 13:30 | EDPHYS ---
Physician Documentation [facility] Name: Veena Gray Age: 85 yrs Sex: Female : 1935 Arrival Date: 05/25/2020 Time: 11:02 Bed 17 Private MD: Angelito Vega B ED Physician Yusuf Ashley HPI: 05/25 12:10 This 85 yrs old Female presents to ER via Wheelchair with complaints of Arm kb Pain. 12:10 The patient or guardian complains of pain, that is acute, swelling. The complaints kb affect the left elbow. Context: The problem was sustained at home, resulted from unknown cause. Onset: The symptoms/episode began/occurred 6 day(s) ago. Treatment prior to arrival includes: compression. Modifying factors: The symptoms are alleviated by nothing. the symptoms are aggravated by nothing. Associated signs and symptoms: Pertinent positives: erythema, pain, swelling, Pertinent negatives: decreased range of motion, deformity, fever, nausea, numbness, tingling, vomiting, warmth, weakness. Severity of symptoms: At their worst the symptoms were moderate, in the emergency department the symptoms are unchanged. The patient has not experienced similar symptoms in the past. The patient has not recently seen a physician. Pt reports she had blood drawn last and on Friday she started having pain to left elbow. States it had gotten red and swollen at times so she was concerned that she had a blood clot. Pain at this time. No redness of swelling noted.. Historical: - Allergies: 11:09 Codeine; ll1 11:09 Macrobid; ll1 11:09 Nitrofurantoin; ll1 11:09 PENICILLINS; ll1 11:09 Sulfa (Sulfonamide Antibiotics); ll1 - PMHx: 11:09 GERD; hiatal hernia; Myocardial infarction; Vertigo; ll1 - Immunization history:: Flu vaccine is up to date. - Social history:: Smoking status: Patient denies any tobacco usage or history of. ROS: 12:12 Constitutional: Negative for fever, chills, and weight loss, Cardiovascular: Negative kb for chest pain, palpitations, and edema, Respiratory: Negative for shortness of breath, cough, wheezing, and pleuritic chest pain, Abdomen/GI: Negative for abdominal pain, nausea, vomiting, diarrhea, and constipation, Back: Negative for injury and pain, Skin: Negative for injury, rash, and discoloration, Neuro: Negative for headache, weakness, numbness, tingling, and seizure. 12:12 MS/extremity: Positive for erythema, pain, swelling, tenderness, of the left elbow. Exam: 12:12 Constitutional: This is a well developed, well nourished patient who is awake, alert, kb and in no acute distress. Head/Face: Normocephalic, atraumatic. Chest/axilla: Normal chest wall appearance and motion. Nontender with no deformity. No lesions are appreciated. Cardiovascular: Regular rate and rhythm with a normal S1 and S2. No gallops, murmurs, or rubs. Normal PMI, no JVD. No pulse deficits. Respiratory: Lungs have equal breath sounds bilaterally, clear to auscultation and percussion. No rales, rhonchi or wheezes noted. No increased work of breathing, no retractions or nasal flaring. Abdomen/GI: Soft, non-tender, with normal bowel sounds. No distension or tympany. No guarding or rebound. No evidence of tenderness throughout. Skin: Warm, dry with normal turgor. Normal color with no rashes, no lesions, and no evidence of cellulitis. MS/ Extremity: Pulses equal, no cyanosis. Neurovascular intact. Full, normal range of motion. Neuro: Awake and alert, GCS 15, oriented to person, place, time, and situation. Cranial nerves II-XII grossly intact. Motor strength 5/5 in all extremities. Sensory grossly intact. Cerebellar exam normal. Normal gait. Vital Signs: 11:09 BP 152 / 66; Pulse 74; Resp 17; Temp 98.1; Pulse Ox 96% ; Weight 61.23 kg; Height 5 ft. ll1 3 in. (160.02 cm); Pain 9/10; 13:15 BP 147 / 68; Pulse 67; Resp 18; Temp 97.8; Pulse Ox 100% on R/A; ph 11:09 Body Mass Index 23.91 (61.23 kg, 160.02 cm) ll1 MDM: 11:55 Patient medically screened. kb 12:13 Data reviewed: vital signs, nurses notes. Data interpreted: Pulse oximetry: on room air kb is 96 %. Interpretation: normal. 13:28 Counseling: I had a detailed discussion with the patient and/or guardian regarding: the kb historical points, exam findings, and any diagnostic results supporting the discharge/admit diagnosis, radiology results, the need for outpatient follow up, a family practitioner, to return to the emergency department if symptoms worsen or persist or if there are any questions or concerns that arise at home. 05/25 12:27 Order name: UPPER EXTREMITY VENOUS UNILATE [facility] Administered Medications: No medications were administered Disposition: 05/26 09:27 Co-signature as Attending Physician, Yusuf Ashley MD I agree with the assessment and kdr plan of care. Disposition: 05/25/20 13:29 Discharged to Home. Impression: Pain in left arm. - Condition is Stable. - Discharge Instructions: Musculoskeletal Pain. - Medication Reconciliation Form, Thank You Letter, Antibiotic Education, Prescription Opioid Use form. - Follow up: Emergency Department; When: As needed; Reason: Worsening of condition. Follow up: Angelito Vega MD; When: 2 - 3 days; Reason: Recheck today's complaints, Continuance of care, Re-evaluation by your physician. Signatures: Dispatcher [employer] [facility] Carmela Hill, CENTRAL OFFICE INSPECTOR-C CENTRAL OFFICE INSPECTOR-Ckb Yusuf Ashley MD MD [facility] Clarissa Mulligan RN RN ph Kirsten Moscoso RN RN ll1 Corrections: (The following items were deleted from the chart) 05/25 12:27 11:54 Extremity Venous Uni Ltd+US.RAD.BRZ ordered. [facility] 13:42 13:29 05/25/2020 13:29 Discharged to Home. Impression: Pain in left arm. Condition is ph Stable. Forms are Medication Reconciliation Form, Thank You Letter, Antibiotic Education, Prescription Opioid Use. Follow up: Emergency Department; When: As needed; Reason: Worsening of condition. Follow up: Angelito Vega; When: 2 - 3 days; Reason: Recheck today's complaints, Continuance of care, Re-evaluation by your physician. kb
[2020-05-25 13:48] VITALS: BP 152/66; TEMP 98.1; O2SAT 96
--- NOTE | 2020-05-26 12:49 | RAD REPORT ---
EXAM DESCRIPTION: US - UPPER EXTREMITY VENOUS UNILATE - 05/25/2020 10:20 pm CLINICAL HISTORY: PAIN Arm pain and swelling COMPARISON: Extremity Venous Uni Ltd dated 07/23/2017 FINDINGS: Left upper extremity venous system was interrogated with Doppler technique. Normal flow, c ompressibility and augmentation was noted. There is no DVT present. IMPRESSION: No evidence of left upper extremity deep venous thrombosis.
--- OUTSIDE RECORDS SUMMARY | 2020-05-31 16:07 | XMS REPORT | Continuity of Care Document ---
:1935 Author Organization [facility] t Address [address] [place] [address] Care Team Providers Name Role Phone Charleen MANCILLA, H Attending Clinician Radiology Attending Clinician Unavailable Doctor Unassigned, Name Attending Clinician Unavailable Problems Condition Condition Condition Status Onset Resolution Last Treating Co mments Source Name Details Category Date Date Treatment Clinician Date 593.2 - Diagnosis Active 2015-03-02 Me stevens "CYST OF - 12:46:00 l KIDNEY," 593.2 - 00:01: 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," Active 02/22/2015 PORFIRIO Martines Allergies, Adverse Reactions, Alerts This patient has no known allergies or adverse reactions. Medications This patient has no known medications. Procedures This patient has no known procedures. Encounters Start End Encounter Admission Attending Care Care Encounter Source Date/Time Date/Time Type Type Clinicians Facility Department ID 2020-04-11 2020-04-11 [facility] [id number] 09:20:00 23:59:00 Encounter Radiology Lilli [id number] [place] [id number] [place] [id number] 2020-04-11 2020-04-11 [facility] [id number] 09:00:00 09:19:00 Encounter Yusuf Reeder [id number] [place] [id number] [place] [id number] 2020-04-11 2020-04-11 Orders Doctor DEIRDRE [id number] 00:00:00 00:00:00 Only Unassigned, VELVET [id number] [place] [facility] [id number] 2020-03-31 2020-03-31 Office Charleen TXADONIS [id number] 11:28:01 12:47:12 Visit Yusuf Reeder [id number] [place] [id number] [facility] [id number] [address] 2019-06-02 2019-06-02 Outpatient [facility] [id number] [facility] 05:35:00 05:35:00 2019-05-05 2019-05-05 Outpatient [facility] [id number] [facility] 14:40:00 14:40:00 Results This patient has no known results.
--- OUTSIDE RECORDS SUMMARY | 2020-05-31 16:07 | XMS REPORT | Continuity of Care Document ---
:1935 Author Organization [employer] Care Team Providers Name Role Phone [employer] Unavailable Un available Problems Problem Status Onset Classification Date Comments Sourc e Date Reported 593.2 - Active OPID "CYST OF 5 [address] KIDNEY," Medications No Data Provided for This Section Allergies, Adverse Reactions, Alerts No Known Medication Allergies Immunizations No Data Provided for This Section Results No Data Provided for This Section Pathology Reports No Data Provided for This Section Diagnostic Reports Report Value Date Source Retroperitoneal Complete US EXAM: US RENAL 03/02/2015 O PID [place] DATE: 03/02/2015. INDICATION: Follow up renal cyst. ADDITIONAL INFORMATION: None. COMPARISON: Renal ultrasound from 03/03/2014. TECHNIQUE: Multiplanar roblero scale and color Doppler ultrasound images of the kidneys and urinary bladder were obtained. FINDINGS: The right kidney measures 7. 9 x 2.4 x 2.9 cm and left kidney measures 7.9 x 4.6 x 4.6 cm. Both the kidneys demonstrate mildly increased cortical echogenicity without any hydronephrosis or focal renal pa renchymal calcifications.The urinary bladder is partially distended. There is a 1.2 cm cyst within interpolar region of the left kidney with slightly thick peripheral wall and not significantly changed compared to previous exam. IMPRESSION: 1. Increased renal echogenicity. Correlate with renal function test. 2. A 1.2 cm cyst within inte rpolar region of the left kidney with slightly thick peripheral wall and not significantly changed compared to previous exam. Consultation Notes No Data Provided for This Section Discharge Summaries No Data Provided for This Section History and Physicals No Data Provided for This Section Vital Signs No Data Provided for This Section Encounters No Data Provided for This Section Procedures No Data Provided for This Section Assessment and Plan No Data Provided for This Section Plan of Care No Data Provided for This Section Social History No Data Provided for This Section Family History No Data Provided for This Section Advance Directives No Data Provided for This Section Functional Status No Data Provided for This Section
== END 2020-05-25 13:42 | disposition home or self-care (01) ==
LOC: ER 10:59
DX: M79.602 Pain in left arm (principal); Z88.0 Allergy status to penicillin; Z88.2 Allergy status to sulfonamides; Z88.5 Allergy status to narcotic agent; Z88.8 Allergy status to other drugs, medicaments and biological substances
CPT/HCPCS: 93971; 99283

== ENCOUNTER 2021-01-08 08:01 | Day surgery (SDC) | payer OTHER ==
[2021-01-05 15:41] LABS: Absolute Lymphocytes (CBC) 1.8 K/uL (0.7-4.9); Basophils % 0.9 % (0-1.3); Hematocrit 33.9 % (36.0-45.0); Lymphocytes % 28.8 % (15.3-44.8); MPV 7.6 fL (7.6-11.3); RBC Red Blood Cell Count 3.83 M/uL (3.86-4.86)
[2021-01-05 15:58] LABS: Potassium 4.4 mmol/L (3.5-5.1)
[2021-01-08] MEDS ORDERED: Ringers Lactate 1,000 ML IV ONE (08:45)
[2021-01-08] MEDS ORDERED: CIPROFLOXACIN 400mg IV 400 MG/200 ML BAG IV ONE (08:56)
[2021-01-08] MEDS ORDERED: propofoL 200 MG/20 ML VIAL IV ONE (09:51)
[2021-01-08] MEDS ORDERED: LIDOCAINE 1% MPF 5 ML VIAL ONE (09:51)
[2021-01-08] MEDS ORDERED: FENTANYL CITR 100 MCG/2 ML ONE (09:51)
[2021-01-08] MEDS ORDERED: dexAMETHasone 10 MG/ML VIAL ONE (10:17)
[2021-01-08] MEDS ORDERED: ONDANSETRON 4 MG/2 ML VIAL ONE (10:19)
[2021-01-08] MEDS ORDERED: KETOROLAC 30 MG/ML INJ ONE (10:19)
[2021-01-08] MEDS ORDERED: EPHEDRINE SULF 50 MG/ML VIAL ONE (10:25)
[2021-01-08] MEDS ORDERED: NS 0.9% VIAL 10 ML ONE (10:25)
--- NOTE | 2021-01-08 10:52 | P.BOP ---
Preoperative diagnosis: PERIANAL BASAL CELL CARCINOMA Postoperative diagnosis: same Primary procedure: Wide excision of perianal basal cell carcinoma with frozen section Estimated blood loss: <10cc Specimen: perianal basal cell carcinoma Findings: perianal basal cell carcinoma margins free per Dr Daniel Anesthesia: General Transferred to: Recovery Room Condition: Good
[2021-01-08 15:14] VITALS: BP 167/59; O2SAT 97
[2021-01-08 15:16] VITALS: TEMP 97
--- NOTE | 2021-01-29 14:57 | OP ---
Date of Procedure: 01/08/2021 Surgeon: Riki Willard MD Preoperative Diagnosis: Perianal basal cell carcinoma. Postoperative Diagnosis: Perianal basal cell carcinoma. Procedures: Wide excision of perianal basal cell carcinoma with frozen section. Estimated Blood Loss: Less than 10 mL. Finding: Perianal basal cell carcinoma, margin free of tumor per Dr. Daniel, pathologist. Anesthesia: General plus local. Indication: This is the case of a female, who comes to us with perianal basal cell carcinoma found o n biopsy. Area was excised since the patient has a mass in that region, even though she has hemorrho id, we found also to have a perianal basal cell carcinoma. Discussed the case with the radiologist, Dr. William, who asked us even though he can treat them with radiation therapy. He preferred to hav e a wide excision of the area and got these possible gross negative margins. The patient was fully e xplained the benefits, alternatives, and risks of this, which include, but not limited to infection, bleeding, damage to adjacent structures, anesthesia complication, chronic wound, incontinence, anal s tricture, recurrence, [place], and even . She also understands this may not relieve any symptoms. S he understood and signed the consent. The patient has a previous ulceration in that region. Procedure In Detail: The patient was brought to the operating room, placed in supine position. Anes thesia was done without complication. The patient was placed in lithotomy position with proper prote ction. Then, we proceeded to identify the area and went outside about 1 to 2 cm away from the area o f previous concern and went all the way down to the fat pad to do wide resection and near the anal sp hincter. The mass was marked for orientation and sent to pathologist who stated the margins are free of tumor. At that moment, it is too big for me to close that. So, we proceeded to obtain hemostasi s and we are going to close by secondary intention and she may even require skin graft. The patient tolerated the procedure well. Local anesthesia was applied and then after that, the patient sent to recovery in stable condition. BABITA/LIDIA Voice ID: [id number] Report ID: [id number]
--- NOTE | 2021-01-29 15:03 | DS ---
Date of Discharge: 01/08/2021 Diagnosis: Perianal basal cell carcinoma. Procedure: Wide excision of perianal basal cell carcinoma with frozen section. Disposition: Home. Activity: As tolerated. No heavy lifting. Plan: Follow up in my office in 1 week. Call for appointment at [phone]. Wet-to-dry twice a day a nd after every bowel movement. Medications: See orders. BABITA/MODL Voice ID: [id number] Report ID: [id number]
== END 2021-01-08 12:50 | disposition home health service (06) ==
LOC: OR 08:01
PROVIDERS: ATTEND Surgery
PROC: 0JB90ZZ Excision of Buttock Subcutaneous Tissue and Fascia, Open Approach (ICD-10-PCS; principal; 2021-01-08 09:15)
DX: C44.510 Basal cell carcinoma of anal skin (principal); Z20.822 Contact with and (suspected) exposure to COVID-19
CPT/HCPCS: 85025; 80048; 36415; 88331; 88332; 88305; 46922; U0003; J2704; J3010; J1100; J7120; J2405; J0744

== ENCOUNTER 2021-12-31 18:56 | Emergency (ER) | payer OTHER ==
--- OUTSIDE RECORDS SUMMARY | 2021-12-31 19:04 | XMS REPORT | Continuity of Care Document ---
:1935 Author Organization [facility] t Address [address] [place] [place] [address] Care Team Providers Name Role Phone Charleen MANCILLA, H Primary Care Physician DEREJE Attending Clinician Unavailable Christy GIBBONS Attending Clinician Unavailable 1, Infusion Nurse Attending Clinician Unavailable Christy Gibbons MD Attending Clinician Doctor Unassigned, Name Attending Clinician Unavailable Nyasia Cowan Attending Clinician Unavailable UNKNOWN Attending Clinician Unavailable DINORA Attending Clinician Unavailable HALIMA Attending Clinician Unavailable Halima STRATEGIC PARTNER DEVELOPMENT MANAGER Attending Clinician Dereje MANCILLA Attending Clinician Only, Test Attending Clinician Unavailable Pob, Lab Main Attending Clinician Unavailable Nyasia HOLMAN Attending Clinician Unavailable Mehran Henson DO Attending Clinician Radiology Attending Clinician Unavailable DEREJE Admitting Clinician Unavailable Nyasia Cowan Admitting Clinician Unavailable Dereje MANCILLA Admitting Clinician Payers Payer Name Policy Type Policy Number Effective Date Expiration Date Yrn morales MEDICARE PART A \\T\\ [id number] 1999 B 00:00:00 [employer] [id number] 2016 00:00:00 Problems Condition Condition Condition Status Onset Resolution Last Treating Co mments Source Name Details Category Date Date Treatment Clinician Date CCL / Diagnosis Active 2018-082019-06-02 Mem oria RENAL 0- 05:41:00 l STENT CCL / 00:00: Rowley RENAL 00 STENT Active 05/25/2019 [facility] NEW PT Diagnosis Active 2019-05-05 Mem oria CONSULT - 04-23 14:43:00 l 2ND NEW PT 00:00: Conrad OPINION CONSULT - 00 2ND OPINION Active 04/23/2019 [facility] ATHEROSCLE Diagnosis Active 2016-11-19 Memoria ROSIS OF 10-17 13:05:00 l CHALKYITSIK 00:00: Conrad ARTERIES ATHEROSCLE 00 OF EX ROSIS OF CHALKYITSIK ARTERIES OF EX Active 10/17/2016 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 DIZZINESS Diagnosis Active 2016-05-01 Memoria 04-21 22:08:00 l 00:00: Rowley DIZZINESS 00 Active 04/21/2016 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, ZULLYZeinab AlbaRobyn Gastroesop Problem Resolve 2020-09-01 Memoria hageal d 22:24:26 l reflux [place]ley disease Gastroesop (disorder) hageal reflux disease (disorder) Resolved Problem 09/01/2020 [facility] Group,[facility], ZULLYZeinab AlbaRobyn History of Problem Resolve 2020-09-01 Memoria - surgery d 22:24:26 l (context-d History Her carrizales ependent of - category) surgery (context-d ependent category) Resolved Problem 09/01/2020 Medical Group,[facility] MARIE Vidala History of Problem Resolve 2020-09-01 Memoria - vertigo d 22:24:26 l (context-d History Her carrizales ependent of - category) vertigo (context-d ependent category) Resolved Problem 09/01/2020 Medical Group,[facility], MARIE Robyn Hypertensi Problem Resolve 2020-09-01 Memoria ve d 22:24:26 l disorder, Rowley systemic Hypertensi arterial ve (disorder) disorder, systemic arterial (disorder) Resolved Problem 09/01/2020 Medical Group,[facility] MARIE Carlson ENCNTR FOR Diagnosis Active 2019-05-05 Memoria GENERAL 14:43:00 l ADULT ENCNTR Conrad MEDICAL FOR EXAM W/ GENERAL ADULT MEDICAL EXAM W/ Active [facility] ILLNESS, Diagnosis Active 2016-05-01 M emoria UNSPECIFIE 22:08:00 l D ILLNESS, Galen n UNSPECIFIE D Active [facility] Myocardial Problem Resolve 2002-0 2020-09-01 2020-09-01 Memoria infarction d - 22:24:26 22:24:26 l (disorder) 00:00: Galen martínez Myocardial 00 infarction (disorder) Resolved 08/25/2002 Problem 09/01/2020 Medical Group,[facility], MARIE Carlson Allergies, Adverse Reactions, Alerts Allergy Allergy Status Severity Reaction(s) Onset Inactive Treating Comm ents Source Name Type Date Date Clinician Penicill DA Active U HIVES [facility] ins 09-14 Hector 00:00: [facility] 00 are [facility] Sulfa DA Active U RASH [facility] (Sulfona 09-14 Hector mid 00:00: Healthc Antibiot 00 are ics) [facility] codeine DA Active U NAUSEA [facility] 09-14 Hector 00:00: Healthc 00 are [facility] Codeine Propensi Active Unknown - Gives NPI: 183 ty to See comments 2- patient [id number] adverse 00:00: the reaction 00 opposite s effects from codeine per patient CODEINE DRUG Active Unknown-Cmnt NPI :183 INGREDI 2-11 [id number] 00:00: 00 Nitrofur Propensi Active Hives NPI:18 3 antoin ty to 05-22 [id number] Monohyd/ adverse 00:00: M-Cryst reaction 00 s Penicill Propensi Active Unknown - Childhood NPI:183 ins ty to See comments 05-22 allergy 131 [id number] adverse 00:00: reaction 00 s Sulfur Propensi Active Hives NPI:183 ty to 05-22 [id number] adverse 00:00: reaction 00 s NITROFUR DRUG Active Hives NPI:183 ANTOIN 05-22 [id number] MONOHYD/ 00:00: M-CRYST 00 PENICILL Drug Active 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 Class 05-22 [id number] 00:00: 00 SULFUR DRUG Active Hives NPI:183 INGREDI 05-22 [id number] 00:00: 00 penicill penicill Active Memori a ins<sup> ins<sup> 3-26 l 1</sup> 1</sup> 05:00: Rowley 00 sulfa sulfa Active Memoria drugs<ward drugs<ward 3-26 l p>2</sup p>2</sup 05:00: Galen n > > 00 nitrofur nitrofur Active Memori a antoin<s antoin<s 3-26 l up>1</ward up>1</ward 05:00: Galen n p> p> 00 sulfa sulfa Active Memoria drugs<ward drugs<ward 3-26 l p>3</sup p>3</sup 05:00: Galen n > > 00 penicill penicill Active Memori a ins<sup> ins<sup> 3-26 l 2</sup> 2</sup> 05:00: Conrad 00 Keflex Keflex Active Memoria l [place] penicill penicill Active Memori a ins ins l Conrad sulfa sulfa Active Memoria drugs drugs l [place] codeine codeine Active Memoria l Conrad niacin niacin Active Memoria l Conrad Plavix Plavix Active Memoria l Conrad Celebrex Celebrex Active Memori a l [place] Social History Social Habit Start Date Stop Date Quantity Comments Source Exposure to Not sure NPI:[id number] 1 SARS-CoV-2 (event) Tobacco use and 2020-12-06 2020-12-06 Never used NPI:[id number] exposure 00:00:00 00:00:00 Tobacco Comment 2020-12-06 2020-12-06 quit 30 yrs ago 00:00:00 00:00:00 Sex [birth year] At [birth year] NPI:[id number] 00:00:00 00:00:00 Smoking Status Start Date Stop Date Source Unknown if ever smoked NPI:[id number] Social History 2019-05-05 19:46:47 2019-05-05 19:46:47 [facility] Medications Ordered Filled Start Stop Current Ordering Indication Dosage Frequency Signature Comments Components Source Medication Medication Date Date Medication? Clinician (SIG) Name Name denosumab 202- No [id number] 60mg 60 mg, N PI:183 (PROLIA) 10-25 03- Subcutaneo [id number] injection 15:00: 15:05 us, ONCE, Syrg 60 mg 00 :00 1 dose, On Rosana 10/25/21 at 0915, Routine
grocery team member approving Non-formul miquel medication : YUSUF GIBBONS H
Reaso n for non-formul miquel use: PATIENT CURRENTLY TAKING NONFORMULA RY PRODUCT denosumab 2020- No [id number] 60mg LLAMA FARMER I:183 (PROLIA) 04-12 [id number] injection 14:15: 14:19 Syrg 60 mg 00 :00 denosumab 2020- No [id number] 60mg 60 mg, NPI:183 (PROLIA) 04-12 Subcutaneo [id number] injection 14:15: 14:19 us, ONCE, Syrg 60 mg 00 :00 1 dose, Rosana 04/12/21 at 0930, Routine
grocery team member approving Non-formul miquel medication : YUSUF GIBBONS
Reaso n for non-formul miquel use: PATIENT CURRENTLY TAKING NONFORMULA RY PRODUCT SERTraline Yes 12.5mg Take 12.5 NPI:183 25 mg 8-06 mg by [id number] tablet 16:25: mouth. 07 Cranberry Yes 500mg Take 500 NPI :183 500 mg Cap 8-06 mg by [id number] 16:25: mouth 2 07 (two) times daily. iron,carb/f Yes 1{tbl} Take 1 LLAMA FARMER I:183 olic ac/vit 8-06 tablet by 131 [id number] Bcomp,C 16:25: mouth 2 (IRON-FOLIC 07 (two) 500 ORAL) times daily. SERTraline Yes 12.5mg Take 12.5 NPI:183 25 mg 8-06 mg by [id number] tablet 16:25: mouth. 07 Cranberry Yes 500mg Take 500 NPI :183 500 mg Cap 8-06 mg by [id number] 16:25: mouth 2 07 (two) times daily. iron,carb/f 0 Yes 1{tbl} Take 1 LLAMA FARMER I:183 olic ac/vit 8-06 tablet by 131 [id number] Bcomp,C 16:25: mouth 2 (IRON-FOLIC 07 (two) 500 ORAL) times daily. SERTraline Yes 12.5mg Take 12.5 NPI:183 25 mg 8-06 mg by [id number] tablet 16:25: mouth. 07 Cranberry Yes 500mg Take 500 NPI :183 500 mg Cap 8-06 mg by [id number] 16:25: mouth 2 07 (two) times daily. iron,carb/f 2020-0 Yes 1{tbl} Take 1 LLAMA FARMER I:183 olic ac/vit 8-06 tablet by 131 [id number] Bcomp,C 16:25: mouth 2 (IRON-FOLIC 07 (two) 500 ORAL) times daily. SERTraline 2020-0 Yes 12.5mg Take 12.5 NPI:183 25 mg 8-06 mg by [id number] tablet 11:25: mouth. 07 Cranberry 2020-0 Yes 500mg Take 500 NPI :183 500 mg Cap 8-06 mg by [id number] 11:25: mouth 2 07 (two) times daily. iron,carb/f 2020-0 Yes 1{tbl} Take 1 LLAMA FARMER I:183 olic ac/vit 8-06 tablet by 131 [id number] Bcomp,C 11:25: mouth 2 (IRON-FOLIC 07 (two) 500 ORAL) times daily. SERTraline 2020-0 Yes 12.5mg Take 12.5 NPI:183 25 mg 8-06 mg by [id number] tablet 11:25: mouth. 07 Cranberry 2020-0 Yes 500mg Take 500 NPI :183 500 mg Cap 8-06 mg by [id number] 11:25: mouth 2 07 (two) times daily. iron,carb/f 2020-0 Yes 1{tbl} Take 1 LLAMA FARMER I:183 olic ac/vit 8-06 tablet by 131 [id number] Bcomp,C 11:25: mouth 2 (IRON-FOLIC 07 (two) 500 ORAL) times daily. folic acid 2020-0 Yes [id number] Take by NPI:183 (FA-8) 0.8 4-15 mouth. [id number] mg Cap 15:51: 38 Magnesium 2020-0 Yes [id number] 500mg Take 500 NPI:183 250 mg Tab 4-15 mg by [id number] 15:51: mouth. 38 aspirin 81 2020-0 Yes 81mg Take 81 mg N PI:183 mg EC 4-15 by mouth [id number] tablet 15:51: daily. 38 CALCIUM 2020-0 Yes Take by NPI:18 3 CITRATE 4-15 mouth. [id number] ORAL 15:51: 38 NIFEdipine 2020-0 Yes Nifedical LLAMA FARMER I:183 XL 30 mg 24 4-15 XL 30 mg 1318 781 hr tablet 15:51: tablet,ext 38 ended release SERTraline 2020-0 Yes sertraline N PI:183 25 mg 4-15 25 mg [id number] tablet 15:51: tablet 38 mirabegron 2020-0 Yes Take by NPI :183 (MYRBETRIQ) 4-15 mouth [id number] 50 mg 15:51: daily. tablet 38 ramipriL 10 2020-0 Yes 10mg Take 10 mg NPI:183 mg capsule 4-15 by mouth 44330 81 15:51: daily. 38 folic acid 2020-0 Yes [id number] Take by NPI:183 (FA-8) 0.8 4-15 mouth. [id number] mg Cap 15:51: 38 Magnesium 2020-0 Yes [id number] 500mg Take 500 NPI:183 250 mg Tab 4-15 mg by [id number] 15:51: mouth. 38 aspirin 81 2020-0 Yes 81mg Take 81 mg N PI:183 mg EC 4-15 by mouth [id number] tablet 15:51: daily. 38 CALCIUM 0 Yes Take by NPI:18 3 CITRATE 4-15 mouth. [id number] ORAL 15:51: 38 NIFEdipine 2020-0 Yes Nifedical LLAMA FARMER I:183 XL 30 mg 24 4-15 XL 30 mg 1318 781 hr tablet 15:51: tablet,ext 38 ended release SERTraline 0 Yes sertraline N PI:183 25 mg 4-15 25 mg [id number] tablet 15:51: tablet 38 mirabegron 2020-0 Yes Take by NPI :183 (MYRBETRIQ) 4-15 mouth [id number] 50 mg 15:51: daily. tablet 38 ramipriL 10 0 Yes 10mg Take 10 mg NPI:183 mg capsule 4-15 by mouth 26154 81 15:51: daily. 38 folic acid 2020-0 Yes [id number] Take by NPI:183 (FA-8) 0.8 4-15 mouth. 7868550 mg Cap 15:51: 38 Magnesium 2020-0 Yes [id number] 500mg Take 500 NPI:183 250 mg Tab 4-15 mg by [id number] 15:51: mouth. 38 aspirin 81 2020-0 Yes 81mg Take 81 mg N PI:183 mg EC 4-15 by mouth [id number] tablet 15:51: daily. 38 CALCIUM 2020-0 Yes Take by NPI:18 3 CITRATE 4-15 mouth. [id number] ORAL 15:51: 38 NIFEdipine 2020-0 Yes Nifedical LLAMA FARMER I:183 XL 30 mg 24 4-15 XL 30 mg 1318 781 hr tablet 15:51: tablet,ext 38 ended release SERTraline 2020-0 Yes sertraline N PI:183 25 mg 4-15 25 mg [id number] tablet 15:51: tablet 38 mirabegron 2020-0 Yes Take by NPI :183 (MYRBETRIQ) 4-15 mouth [id number] 50 mg 15:51: daily. tablet 38 ramipriL 10 2020-0 Yes 10mg Take 10 mg NPI:183 mg capsule 4-15 by mouth 62186 81 15:51: daily. 38 folic acid 2020-0 Yes [id number] Take by NPI:183 (FA-8) 0.8 4-15 mouth. 2763201 mg Cap 15:51: 38 Magnesium 2020-0 Yes [id number] 500mg Take 500 NPI:183 250 mg Tab 4-15 mg by [id number] 15:51: mouth. 38 aspirin 81 2020-0 Yes 81mg Take 81 mg N PI:183 mg EC 4-15 by mouth [id number] tablet 15:51: daily. 38 CALCIUM 2020-0 Yes Take by NPI:18 3 CITRATE 4-15 mouth. [id number] ORAL 15:51: 38 NIFEdipine 2020-0 Yes Nifedical LLAMA FARMER I:183 XL 30 mg 24 4-15 XL 30 mg 1318 781 hr tablet 15:51: tablet,ext 38 ended release SERTraline 2020-0 Yes sertraline N PI:183 25 mg 4-15 25 mg [id number] tablet 15:51: tablet 38 mirabegron 2020-0 Yes Take by NPI :183 (MYRBETRIQ) 4-15 mouth [id number] 50 mg 15:51: daily. tablet 38 ramipriL 10 2020-0 Yes 10mg Take 10 mg NPI:183 mg capsule 4-15 by mouth 39072 81 15:51: daily. 38 folic acid 2020-0 Yes [id number] Take by NPI:183 (FA-8) 0.8 4-15 mouth. 1829794 mg Cap 15:51: 38 Magnesium 2020-0 Yes [id number] 500mg Take 500 NPI:183 250 mg Tab 4-15 mg by [id number] 15:51: mouth. 38 aspirin 81 2020-0 Yes 81mg Take 81 mg N PI:183 mg EC 4-15 by mouth [id number] tablet 15:51: daily. 38 CALCIUM 202-0 Yes Take by NPI:18 3 CITRATE 4-15 mouth. [id number] ORAL 15:51: 38 NIFEdipine 2020-0 Yes Nifedical LLAMA FARMER I:183 XL 30 mg 24 4-15 XL 30 mg 1318 781 hr tablet 15:51: tablet,ext 38 ended release SERTraline 2020-0 Yes sertraline N PI:183 25 mg 4-15 25 mg [id number] tablet 15:51: tablet 38 mirabegron 2020-0 Yes Take by NPI :183 (MYRBETRIQ) 4-15 mouth [id number] 50 mg 15:51: daily. tablet 38 ramipriL 10 2020-0 Yes 10mg Take 10 mg NPI:183 mg capsule 4-15 by mouth [id number] 81 15:51: daily. 38 folic acid 2020-0 Yes [id number] Take by NPI:183 (FA-8) 0.8 4-15 mouth. [id number] mg Cap 15:51: 38 Magnesium 2020-0 Yes [id number] 500mg Take 500 NPI:183 250 mg Tab 4-15 mg by [id number] 15:51: mouth. 38 aspirin 81 2020-0 Yes 81mg Take 81 mg N PI:183 mg EC 4-15 by mouth [id number] tablet 15:51: daily. 38 CALCIUM 2020-0 Yes Take by NPI:18 3 CITRATE 4-15 mouth. [id number] ORAL 15:51: 38 NIFEdipine 2020-0 Yes Nifedical LLAMA FARMER I:183 XL 30 mg 24 4-15 XL 30 mg 1318 781 hr tablet 15:51: tablet,ext 38 ended release SERTraline 2020-0 Yes sertraline N PI:183 25 mg 4-15 25 mg [id number] tablet 15:51: tablet 38 mirabegron 2020-0 Yes Take by NPI :183 (MYRBETRIQ) 4-15 mouth [id number] 50 mg 15:51: daily. tablet 38 ramipriL 10 0 Yes 10mg Take 10 mg NPI:183 mg capsule 4-15 by mouth 70377 81 15:51: daily. 38 folic acid 2020-0 Yes [id number] Take by NPI:183 (FA-8) 0.8 4-15 mouth. 7456725 mg Cap 15:51: 38 Magnesium 2020-0 Yes [id number] 500mg Take 500 NPI:183 250 mg Tab 4-15 mg by [id number] 15:51: mouth. 38 aspirin 81 2020-0 Yes 81mg Take 81 mg N PI:183 mg EC 4-15 by mouth [id number] tablet 15:51: daily. 38 CALCIUM 0 Yes Take by NPI:18 3 CITRATE 4-15 mouth. [id number] ORAL 15:51: 38 NIFEdipine 2020-0 Yes Nifedical LLAMA FARMER I:183 XL 30 mg 24 4-15 XL 30 mg 1318 781 hr tablet 15:51: tablet,ext 38 ended release mirabegron 0 Yes Take by NPI :183 (MYRBETRIQ) 4-15 mouth [id number] 50 mg 15:51: daily. tablet 38 ramipriL 10 0 Yes 10mg Take 10 mg NPI:183 mg capsule 4-15 by mouth 60176 81 15:51: daily. 38 folic acid 0 Yes [id number] Take by NPI:183 (FA-8) 0.8 4-15 mouth. [id number] mg Cap 15:51: 38 Magnesium 2020-0 Yes [id number] 500mg Take 500 NPI:183 250 mg Tab 4-15 mg by [id number] 15:51: mouth. 38 aspirin 81 2020-0 Yes 81mg Take 81 mg N PI:183 mg EC 4-15 by mouth [id number] tablet 15:51: daily. 38 CALCIUM 0 Yes Take by NPI:18 3 CITRATE 4-15 mouth. [id number] ORAL 15:51: 38 NIFEdipine 2020-0 Yes Nifedical LLAMA FARMER I:183 XL 30 mg 24 4-15 XL 30 mg 1318 781 hr tablet 15:51: tablet,ext 38 ended release mirabegron 2020-0 Yes Take by NPI :183 (MYRBETRIQ) 4-15 mouth [id number] 50 mg 15:51: daily. tablet 38 ramipriL 10 2021-0 Yes 10mg Take 10 mg NPI:183 mg capsule 4-15 by mouth 02925 81 15:51: daily. 38 folic acid Yes [id number] Take by NPI:183 (FA-8) 0.8 4-15 mouth. 6546817 mg Cap 15:51: 38 Magnesium Yes [id number] 500mg Take 500 NPI:183 250 mg Tab 4-15 mg by [id number] 15:51: mouth. 38 aspirin 81 Yes 81mg Take 81 mg N PI:183 mg EC 4-15 by mouth [id number] tablet 15:51: daily. 38 CALCIUM Yes Take by NPI:18 3 CITRATE 4-15 mouth. [id number] ORAL 15:51: 38 NIFEdipine Yes Nifedical LLAMA FARMER I:183 XL 30 mg 24 4-15 XL 30 mg 1318 781 hr tablet 15:51: tablet,ext 38 ended release mirabegron Yes Take by NPI :183 (MYRBETRIQ) 4-15 mouth [id number] 50 mg 15:51: daily. tablet 38 ramipriL 10 Yes 10mg Take 10 mg NPI:183 mg capsule 4-15 by mouth 25440 81 15:51: daily. 38 mupirocin 2020- No Intra-op NPI :183 (BACTROBAN 12-07 [id number] OINT) 2 % 14:46: 17:51 skin 00 :38 ointment bupivacaine 2020- No PRN, NPI:1 83 liposome 12-07 Starting [id number] 1 (PF) 14:42: 17:51 Rosana (EXPAREL 00 :38 12/07/20 at (PF)) 1.3 % 0942, (13.3 Until Rosana mg/mL) 12/07/20 at injection 1251, Routine, Intra-op sodium 2020- No PRN, NPI:183 chloride 12-07 Starting 069118 1 0.9 % 14:38: 17:51 Rosana irrigation 00 :38 12/07/20 at solution 0938, Until Rosana 12/07/20 at 1251, Intra-op lactated 2021-0 2021- No 1000mL at 42 NPI:1 83 ringers IV 4-15 04-15 mL/hr, [id number] 1 infusion 13:00: 13:27 1,000 mL, 1,000 mL 00 :00 IV Infusion, ONCE, 1 dose, Rosana 12/07/20 at 0800, Routine, DSU Pre-op lactated 2020-0 2021- No 1000mL at 42 NPI:1 83 ringers IV 4-15 04-15 mL/hr, [id number] 1 infusion 13:00: 13:27 1,000 mL, 1,000 mL 00 :00 IV Infusion, ONCE, 1 dose, Rosana 12/07/20 at 0800, Routine, DSU Pre-op folic acid 2020-0 Yes [id number] Take by NPI:183 (FA-8) 0.8 4-15 mouth. [id number] mg Cap 10:51: 38 Magnesium 2020-0 Yes [id number] 500mg Take 500 NPI:183 250 mg Tab 4-15 mg by [id number] 10:51: mouth. 38 aspirin 81 0 Yes 81mg Take 81 mg N PI:183 mg EC 4-15 by mouth [id number] tablet 10:51: daily. 38 CALCIUM Yes Take by NPI:18 3 CITRATE 4-15 mouth. [id number] ORAL 10:51: 38 NIFEdipine 2020-0 Yes Nifedical LLAMA FARMER I:183 XL 30 mg 24 4-15 XL 30 mg 1318 781 hr tablet 10:51: tablet,ext 38 ended release mirabegron Yes Take by NPI :183 (MYRBETRIQ) 4-15 mouth [id number] 50 mg 10:51: daily. tablet 38 ramipriL 10 0 Yes 10mg Take 10 mg NPI:183 mg capsule 4-15 by mouth 25155 81 10:51: daily. 38 folic acid 2020-0 Yes [id number] Take by NPI:183 (FA-8) 0.8 4-15 mouth. 0493733 mg Cap 10:51: 38 Magnesium 2020-0 Yes [id number] 500mg Take 500 NPI:183 250 mg Tab 4-15 mg by [id number] 10:51: mouth. 38 aspirin 81 2020-0 Yes 81mg Take 81 mg N PI:183 mg EC 4-15 by mouth [id number] tablet 10:51: daily. 38 CALCIUM 2020-0 Yes Take by NPI:18 3 CITRATE 4-15 mouth. [id number] ORAL 10:51: 38 NIFEdipine 2020-0 Yes Nifedical LLAMA FARMER I:183 XL 30 mg 24 4-15 XL 30 mg 1318 781 hr tablet 10:51: tablet,ext 38 ended release mirabegron 2020-0 Yes Take by NPI :183 (MYRBETRIQ) 4-15 mouth [id number] 50 mg 10:51: daily. tablet 38 ramipriL 10 2020-0 Yes 10mg Take 10 mg NPI:183 mg capsule 4-15 by mouth 06907 81 10:51: daily. 38 Magnesium 2020-0 Yes [id number] 500mg Take 500 NPI:183 250 mg Tab 4-14 mg by [id number] 16:39: mouth. 09 aspirin 81 2020-0 Yes 81mg Take 81 mg N PI:183 mg EC 4-14 by mouth [id number] tablet 16:39: daily. 09 CALCIUM 2020-0 Yes Take by NPI:18 3 CITRATE 4-14 mouth. [id number] ORAL 16:39: 09 NIFEdipine 2020-0 Yes Nifedical LLAMA FARMER I:183 XL 30 mg 24 4-14 XL 30 mg 1318 781 hr tablet 16:39: tablet,ext 09 ended release SERTraline 2020-0 Yes sertraline N PI:183 25 mg 4-14 25 mg [id number] tablet 16:39: tablet 09 mirabegron 2020-0 Yes Take by NPI :183 (MYRBETRIQ) 4-14 mouth [id number] 50 mg 16:39: daily. tablet 09 Magnesium 2020-0 Yes [id number] 500mg Take 500 NPI:183 250 mg Tab 4-14 mg by [id number] 16:39: mouth. 09 aspirin 81 2020-0 Yes 81mg Take 81 mg N PI:183 mg EC 4-14 by mouth [id number] tablet 16:39: daily. 09 CALCIUM 2020-0 Yes Take by NPI:18 3 CITRATE 4-14 mouth. [id number] ORAL 16:39: 09 NIFEdipine 2020-0 Yes Nifedical LLAMA FARMER I:183 XL 30 mg 24 4-14 XL 30 mg 1318 781 hr tablet 16:39: tablet,ext 09 ended release SERTraline 2021-0 Yes sertraline N PI:183 25 mg 4-14 25 mg [id number] tablet 16:39: tablet mirabegron Yes Take by NPI :183 (MYRBETRIQ) 4-14 mouth [id number] 50 mg 16:39: daily. tablet 09 NIFEdipine Yes Nifedical LLAMA FARMER I:183 XL 30 mg 24 2-11 XL 30 mg 1318 781 hr tablet 21:33: tablet,ext 01 ended release SERTraline Yes sertraline N PI:183 25 mg 2-11 25 mg [id number] tablet 21:33: tablet 01 NIFEdipine Yes Nifedical [employer] FARMER I:183 XL 30 mg 24 2-11 XL 30 mg 1318 781 hr tablet 21:33: tablet,ext 01 ended release SERTraline Yes sertraline N PI:183 25 mg 2-11 25 mg [id number] tablet 21:33: tablet NIFEdipine Yes Nifedical [employer]ARMER I:183 XL 30 mg 24 2-11 XL 30 mg 1318 781 hr tablet 21:33: tablet,ext 01 ended release SERTraline Yes sertraline N PI:183 25 mg 2-11 25 mg [id number] tablet 21:33: tablet NIFEdipine Yes Nifedical [employer] FARMER I:183 XL 30 mg 24 2-11 XL 30 mg 1318 781 hr tablet 21:33: tablet,ext 01 ended release SERTraline Yes sertraline N PI:183 25 mg 2-11 25 mg [id number] tablet 21:33: tablet 01 24 HR 2019-08 Yes 50 mg = 1 Memoria mirabegron 2-30 tab, PO, l 50 MG 15:24: Daily, # Rowley Extended 00 30 tab, 0 Release Refill(s), Tablet Pharmacy: [Myrbetriq] [facility], 160.02, cm, 08/23/20 8:57:00 [employer], Height, 60, kg, 08/23/20 8:57:00 [employer], Weight 24 HR 2019-08 Yes 50 mg = 1 Memoria mirabegron 0-21 tab, PO, l 50 MG 16:58: Daily, # Rowley Extended 00 30 tab, 0 Release Refill(s), Tablet Pharmacy: [Myrbetriq] [facility], 160.02, cm, 06/14/20 10:46:00 CDT, Height, 60, kg, 06/14/20 10:46:00 CDT, Weight Estradiol 2019-08 Yes See Memoria 0.1 MG/ML 0 Instructio l Vaginal 16:58: ns, apply Mela nn Cream 00 pea size [Estrace] amount to urethra and vagina 3xweek. May dispose of applicator ., # 43 gm, 3 Refill(s), Pharmacy: [facility], 160.02, cm, 06/14/20 10:46:00 CDT, Height, 60, kg, 06/14/20 10:46:00 CDT, Weight NIFEdipine 2018-08 Yes 30 mg = 1 Me moria 30 mg oral 0-09 tab, PO, l tablet, 15:23: BID, # 30 Mela nn extended 00 tab, 0 release Refill(s) spironolact 2018-08 Yes 25 mg = 1 M emoria one 25 mg 0-09 tab, PO, l oral tablet 15:23: Daily, # He rmann 00 30 tab, 3 Refill(s) Sodium 2018-08 No 750 mL, Memoria Chloride 0 Rate: 75 l 0.9% IV 750 14:55: ml/hr, Herm angela mL 00 Infuse over: 10 hr, Route: IV, Dosing Weight 65.909 kg, Total Volume: 750, Start date: 06/02/19 9:55:00 CDT, Duration: 10 hr, Stop date: 06/02/19 19:54:00 CDT, 1.72, m2, 0 Nitroglycer 2018-08 No Notes: Arturo sony in 0 (Same l 14:55: as:Nitroqu Rowley 00 ick, Nitrostat) "Do Not Crush" Sublingual tablet Hydralazine 2018-08 No 10 mg, Arturo sony 0 Route: IV, l 11:50: ONCE, Dosing Weight 65.909, kg, Start date: 06/02/19 6:50:00 CDT, Stop date: 06/02/19 6:50:00 CDT oxybutynin 2018-08 Yes 5 mg = 1 Mem oria 5 mg oral 0-09 tab, PO, l tablet, 10:59: QAM, 0 Rowley extended 00 Refill(s) release ramipril 10 2018-08 Yes 10 mg = 1 M emoria mg oral 0-09 cap, PO, l capsule 10:59: BID, 0 Conrad 00 Refill(s) Roane 2018-08 Yes 1 tab, PO, Memor ia Calcium 0-09 BID, 0 l with 10:59: Refill(s) Conrad Vitamin D 00 Chelated 2018-08 Yes See Memoria Magnesium 0-09 Instructio l 10:59: ns, 250 mg Conrad 00 PO QPM, 0 Refill(s) Bifidobacte Yes 4 mg = 1 Me moria rium 9-11 cap, PO, l Infantis 4 19:55: Daily, # Her carrizales MG Oral 00 28 cap, 0 Capsule Refill(s) [Align] azithromyci Yes See Memori a n 250 mg 9-11 Instructio l oral tablet 19:55: ns, Take 2 Rowley 00 tablets by mouth the first day then 1 tablet by mouth daily on days 2-5., # 6 tab, 0 Refill(s) folic acid Yes [id number] Take by [id number] (FA-[id number]) 0.8 8-16 mouth. [id number] mg Cap 13:45: 04 Magnesium Yes [id number] 500mg Take 500 NPI:[id number] 250 mg Tab 8-16 mg by [id number] 13:45: mouth. 04 aspirin 81 Yes 81mg Take 81 mg N PI:183 mg EC 8-16 by mouth [id number] tablet 13:45: daily. 04 CALCIUM Yes Take by NPI:18 3 CITRATE 8-16 mouth. [id number] ORAL 13:45: 04 folic acid Yes [id number] Take by NPI:183 (FA-8) 0.8 8-16 mouth. [id number] mg Cap 13:45: 04 Magnesium Yes [id number] 500mg Take 500 NPI:183 250 mg Tab 8-16 mg by [id number] 13:45: mouth. 04 aspirin 81 Yes 81mg Take 81 mg N PI:183 mg EC 8-16 by mouth [id number] tablet 13:45: daily. 04 CALCIUM 2019-0 Yes Take by NPI:18 3 CITRATE 8-16 mouth. [id number] ORAL 13:45: 04 folic acid 2019-0 Yes [id number] Take by NPI:183 (FA-8) 0.8 8-16 mouth. [id number] mg Cap 13:45: 04 Magnesium 2019-0 Yes [id number] 500mg Take 500 NPI:183 250 mg Tab 8-16 mg by [id number] 13:45: mouth. 04 aspirin 81 2019-0 Yes 81mg Take 81 mg N PI:183 mg EC 8-16 by mouth [id number] tablet 13:45: daily. 04 CALCIUM 2019-0 Yes Take by NPI:18 3 CITRATE 8-16 mouth. [id number] ORAL 13:45: 04 folic acid 2019-0 Yes [id number] Take by NPI:183 (FA-8) 0.8 8-16 mouth. [id number] mg Cap 13:45: 04 Magnesium 2019-0 Yes [id number] 500mg Take 500 NPI:183 250 mg Tab 8-16 mg by [id number] 13:45: mouth. 04 aspirin 81 2019-0 Yes 81mg Take 81 mg N PI:183 mg EC 8-16 by mouth [id number] tablet 13:45: daily. 04 CALCIUM 2019-0 Yes Take by NPI:18 3 CITRATE 8-16 mouth. [id number] ORAL 13:45: 04 folic acid 2019-0 Yes [id number] Take by NPI:183 (FA-8) 0.8 8-16 mouth. [id number] mg Cap 13:45: 04 Magnesium 2019-0 Yes [id number] 500mg Take 500 NPI:183 250 mg Tab 8-16 mg by [id number] 13:45: mouth. 04 aspirin 81 2019-0 Yes 81mg Take 81 mg N PI:183 mg EC 8-16 by mouth [id number] tablet 13:45: daily. 04 CALCIUM 2019-0 Yes Take by NPI:18 3 CITRATE 8-16 mouth. [id number] ORAL 13:45: 04 folic acid 2019-0 Yes [id number] Take by NPI:183 (FA-8) 0.8 8-16 mouth. [id number] mg Cap 13:45: 04 Magnesium 2019-0 Yes [id number] 500mg Take 500 NPI:183 250 mg Tab 8-16 mg by [id number] 13:45: mouth. 04 aspirin 81 2019-0 Yes 81mg Take 81 mg N PI:183 mg EC 8-16 by mouth [id number] tablet 13:45: daily. 04 CALCIUM 2019-0 Yes Take by NPI:18 3 CITRATE 8-16 mouth. [id number] ORAL 13:45: 04 folic acid 2019-0 Yes [id number] Take by NPI:183 (FA-8) 0.8 8-16 mouth. [id number] mg Cap 13:45: 04 Magnesium 2019-0 Yes [id number] 500mg Take 500 NPI:183 250 mg Tab 8-16 mg by [id number] 13:45: mouth. 04 aspirin 81 2019-0 Yes 81mg Take 81 mg N PI:183 mg EC 8-16 by mouth [id number] tablet 13:45: daily. 04 CALCIUM 2019-0 Yes Take by NPI:18 3 CITRATE 8-16 mouth. [id number] ORAL 13:45: 04 folic acid 2019-0 Yes [id number] Take by NPI:183 (FA-8) 0.8 8-16 mouth. [id number] mg Cap 13:45: 04 Magnesium 2019-0 Yes [id number] 500mg Take 500 NPI:183 250 mg Tab 8-16 mg by [id number] 13:45: mouth. 04 aspirin 81 2019-0 Yes 81mg Take 81 mg N PI:183 mg EC 8-16 by mouth [id number] tablet 13:45: daily. CALCIUM 2019-0 Yes Take by NPI:18 3 CITRATE 8-16 mouth. [id number] ORAL 13:45: 04 folic acid 2019-0 Yes [id number] Take by NPI:183 (FA-8) 0.8 8-16 mouth. [id number] mg Cap 13:45: 04 Magnesium 2019-0 Yes [id number] 500mg Take 500 NPI:183 250 mg Tab 8-16 mg by [id number] 13:45: mouth. 04 aspirin 81 2019-0 Yes 81mg Take 81 mg N PI:183 mg EC 8-16 by mouth [id number] tablet 13:45: daily. 04 CALCIUM 2019-0 Yes Take by NPI:18 3 CITRATE 8-16 mouth. [id number] ORAL 13:45: 04 folic acid 2019-0 Yes [id number] Take by NPI:183 (FA-8) 0.8 8-16 mouth. [id number] mg Cap 13:45: 04 Magnesium 2019-0 Yes [id number] 500mg Take 500 NPI:183 250 mg Tab 8-16 mg by [id number] 13:45: mouth. 04 aspirin 81 2019-0 Yes 81mg Take 81 mg N PI:183 mg EC 8-16 by mouth [id number] tablet 13:45: daily. CALCIUM 2019-0 Yes Take by NPI:18 3 CITRATE 8-16 mouth. [id number] ORAL 13:45: 04 folic acid 2019-0 Yes [id number] Take by NPI:183 (FA-8) 0.8 8-16 mouth. [id number] mg Cap 13:45: 04 Magnesium 2019-0 Yes [id number] 500mg Take 500 NPI:183 250 mg Tab 8-16 mg by [id number] 13:45: mouth. 04 aspirin 81 2019-0 Yes 81mg Take 81 mg N PI:183 mg EC 8-16 by mouth [id number] tablet 13:45: daily. 04 CALCIUM 2019-0 Yes Take by NPI:18 3 CITRATE 8-16 mouth. [id number] ORAL 13:45: 04 folic acid 2019-0 Yes [id number] Take by NPI:183 (FA-8) 0.8 8-16 mouth. [id number] mg Cap 13:45: 04 Magnesium 2019-0 Yes [id number] 500mg Take 500 NPI:183 250 mg Tab 8-16 mg by [id number] 13:45: mouth. aspirin 81 2019-0 Yes 81mg Take 81 mg N PI:183 mg EC 8-16 by mouth [id number] tablet 13:45: daily. 04 CALCIUM 2019-0 Yes Take by NPI:18 3 CITRATE 8-16 mouth. [id number] ORAL 13:45: 04 folic acid 2019-0 Yes [id number] Take by NPI:183 (FA-8) 0.8 8-16 mouth. [id number] mg Cap 13:45: 04 Magnesium 2019-0 Yes [id number] 500mg Take 500 NPI:183 250 mg Tab 8-16 mg by [id number] 13:45: mouth. 04 aspirin 81 2019-0 Yes 81mg Take 81 mg N PI:183 mg EC 8-16 by mouth [id number] tablet 13:45: daily. 04 CALCIUM 2019-0 Yes Take by NPI:18 3 CITRATE 8-16 mouth. [id number] ORAL 13:45: 04 folic acid 2019-0 Yes [id number] Take by NPI:183 (FA-8) 0.8 8-16 mouth. [id number] mg Cap 13:45: 04 Magnesium 2019- Yes [id number] 500mg Take 500 NPI:183 250 mg Tab 8-16 mg by [id number] 13:45: mouth. 04 aspirin 81 Yes 81mg Take 81 mg N PI:183 mg EC 8-16 by mouth [id number] tablet 13:45: daily. 04 CALCIUM 2019 Yes Take by NPI:18 3 CITRATE 8-16 mouth. [id number] ORAL 13:45: 04 folic acid Yes [id number] Take by NPI:183 (FA-8) 0.8 8-16 mouth. [id number] mg Cap 13:45: 04 folic acid 2019 Yes [id number] Take by NPI:183 (FA-8) 0.8 8-16 mouth. [id number] mg Cap 13:45: 04 CALCIUM 2017 Yes Take by NPI:18 3 CITRATE 7-11 mouth. [id number] ORAL 18:20: 52 aspirin 81 Yes 81mg Take 81 mg N PI:183 mg EC 7-11 by mouth [id number] tablet 18:20: daily. 51 aspirin 81 No Notes: Do Me moria mg tablet, 10-29 not crush l enteric 15:00: or chew. Galen n coated 00 (Same As: Ecotrin) clopidogrel No 75 mg, Arturo sony 10-29 Route: PO, l 15:00: Drug form: Conrad 00 TAB, Daily, Dosing Weight 64.545, kg, Start date: 10/29/16 9:00:00 FAMILY [employer]DEPENDENCE CASE MANAGER, Duration: 30 day, Stop date: 11/27/16 9:00:00 CDT Magnesium No Notes: Memori a Oxide 10-29 (Same as: l 15:00: Mag-Ox Conrad 400) Magnesium oxide 082ja=101q g elemental magnesium Dose=____m g magnesium oxide (___mg elemental magnesium) Folic Acid No 0.8 mg, 2 Me moria 10-29 tab, l 15:00: Route: PO, Conrad 00 Drug form: TAB, Daily, Dosing Weight 64.545, kg, Start date: 10/29/16 9:00:00 FAMILY INDEPENDENCE CASE MANAGER, Duration: 30 day, Stop date: 11/27/16 9:00:00 CDT ferrous 2016- No 325 mg, 1 Memor ia sulfate 3-07 tab, l 15:00: Route: PO, Conrad 00 Drug form: ECTAB, Daily, Dosing Weight 64.545, kg, Start date: 10/29/16 9:00:00 FAMILY INDEPENDENCE CASE MANAGER, Duration: 30 day, Stop date: 11/27/16 9:00:00 CDT Vitamin D3 No Notes: Memor ia 3-07 Same as: l 15:00: Vitamin D3 Aspirin No Notes: Do Memor ia 3-07 not crush l 15:00: or chew. (Same As: Ecotrin) Sertraline No Notes: Memor ia 3-07 (Same as: l 15:00: Zoloft) Ramipril No Notes: Memoria 3-07 (Same l 15:00: as:Altace) Synthroid No 75 Memoria 3-07 microgram, l 12:30: 1 tab, Route: PO, Drug form: TAB, Q630AM, Dosing Weight 64.545, kg, Start date: 10/29/16 6:30:00 FAMILY INDEPENDENCE CASE MANAGER, Duration: 30 day, Stop date: 11/27/16 6:30:00 CDT Ticagrelor No Notes: Memor ia 3-07 (Same as: l 12:00: Brilinta) ticagrelor No Notes: Memor ia 3-07 (Same as: l 04:00: Brilinta) Saline No Notes: Memoria Flush 0.9% 3-07 (Same as: l 03:00: BD Posiflush) Brilinta No 60 mg, Memoria 3-07 Route: PO, l 03:00: Drug form: Rowley 00 TAB, Q12H, Dosing Weight 64.545, kg, Start date: 10/28/16 21:00:00 FAMILY INDEPENDENCE CASE MANAGER, Duration: 30 day, Stop date: 11/27/16 9:00:00 CDT Phenergan No Notes: Do Mem oria 10-29 not give l 01:52: IV push. Conrad (Same as: Phenergan) Hydralazine No Notes: Arturo sony 10-29 (Same as: l 00:36: Apresoline ) Push over 5 minutes Saline No Notes: Memoria Flush 0.9% 10-28 (Same as: l 23:59: BD Posiflush) clopidogrel No 300 mg, Mem oria 10-28 Route: PO, l 23:59: Drug form: Conrad 00 TAB, ONCE, Dosing Weight 64.545, kg, Priority: NOW, Start date: 10/28/16 17:59:00 FAMILY INDEPENDENCE CASE MANAGER, Stop date: 10/28/16 17:59:00 FAMILY INDEPENDENCE CASE MANAGER Nitroglycer No Notes: Arturo sony in 10-28 (Same l 23:59: as:Nitroqu ick, Nitrostat) "Do Not Crush" Sublingual tablet Acetaminoph No Notes: Do M emoria en 10-28 not exceed l 23:59: 4 gm/day. (Same as: Tylenol) Sodium No 25 mL, Memoria Chloride 10-28 Rate: 20 l 0.154 23:59: ml/hr, Rowley MEQ/ML 00 Infuse Injectable over: 1.3 Solution hr, Route: IV, Dosing Weight 64.545 kg, Total Volume: 25, Start date: 10/28/16 17:59:00 FAMILY INDEPENDENCE CASE MANAGER, Duration: 24 hr, Stop date: 10/29/16 17:58:00 FAMILY INDEPENDENCE CASE MANAGER Midodrine No 2.5 mg, Memor ia 10-28 Route: PO, l 23:00: Drug form: Conrad 00 TAB, TID, Dosing Weight 64.545, kg, Start date: 10/28/16 17:00:00 FAMILY INDEPENDENCE CASE MANAGER, Duration: 30 day, Stop date: 11/27/16 13:00:00 CDT oxybutynin No Notes: Memor ia 10-28 Same as: l 23:00: Ditropan) Rowley 00 Triamcinolo No Notes: Arturo sony ne 10-28 (Same As: l Acetonide 23:00: Kenalog) Herm angela 0.001 MG/MG 00 Topical Ointment lansoprazol No Notes: Arturo sony e - Take 1 l 22:30: hour Conrad 00 before or 2 hours after meal; Expires in 14 days. Shake well before use. (Same as:Kaiden olson) Compound ed Product - formulatio n not commercial ly available* * aspirin 81 Yes 81 mg, PO, M emoria mg tablet, 3-06 Daily, # l enteric 22:09: 120 tab, 0 Herm angela coated 00 Refill(s) ticagrelor Yes 60 mg, PO, M emoria 60 mg oral 10-28 Q12H, # 60 l tablet 22:09: tab, 0 Conrad 00 Refill(s) Nitroglycer No 0.4 mg, 1 M emoria in 10-28 tab, l 22:00: Route: SL, Rowley 00 Drug form: TAB, Q5Min, Dosing Weight 64.545, kg, PRN Chest Pain, Start date: 10/28/16 16:00:00 FAMILY INDEPENDENCE CASE MANAGER, Duration: 3 doses or times, Stop date: Limited # of times Sodium No 750 mL, Memoria Chloride 10-28 Rate: 75 l 0.154 22:00: ml/hr, Conrad MEQ/ML 00 Infuse Injectable over: 10 Solution hr, Route: IV, Dosing Weight 64.545 kg, Total Volume: 750, Start date: 10/28/16 16:00:00 FAMILY INDEPENDENCE CASE MANAGER, Duration: 10 hr, Stop date: 10/29/16 1:59:00 FAMILY INDEPENDENCE CASE MANAGER ferrous Yes 325 mg = 1 Arturo sony sulfate 325 - tab, PO, l mg oral 19:32: Daily, # Galen n enteric 00 30 tab, 0 coated Refill(s) tablet pantoprazol Yes = 1 Pack, M emoria e 40 MG -06 PO, Daily, l Granules 19:32: # 30 ea, 0 Her carrizales [Protonix] 00 Refill(s) Sodium No 1,000 mL, Memori a Chloride 10-28 Rate: 75 l 0.154 19:25: ml/hr, Conrad MEQ/ML 00 Infuse Injectable over: 13.3 Solution hr, Route: IV, Dosing Weight 64.545 kg, Total Volume: 1,000, Start date: 10/28/16 13:25:00 FAMILY INDEPENDENCE CASE MANAGER, Duration: 30 day, Stop date: 11/27/16 13:24:00 CDT Sodium 2016-0 No 250 mL, Memoria Chloride 10-28 Rate: 250 l 0.154 19:24: ml/hr, Rowley MEQ/ML 00 Infuse Injectable over: 1 Solution hr, Route: IV, Dosing Weight 64.545 kg, Total Volume: 250, Start date: 10/28/16 13:24:00 FAMILY INDEPENDENCE CASE MANAGER, Duration: 30 day, Stop date: 11/27/16 14:23:00 CDT midodrine Yes 2.5 mg = 1 Me moria 2.5 mg oral 04-26 tab, PO, l tablet 16:05: TID, # 90 Galen n 00 tab, 0 Refill(s) non-formula Yes 2.5 mg =, M emoria ry 04-26 PO, BID, # l 16:05: 60, Rowley 00 Refill(s) 0, MISC Maalox No Notes: Memoria Advanced 04-26 (aluminum l Regular 08:55: hydroxide- Herm angela Strength 00 magnesium SUSP hyd-simeth icone 200-200-20 mg/5ml 30 ml ud TRICIA) Sertraline No Sertraline M emoria 25 mg 04-26 25 mg l tablet 02:00: tablet, Conrad 00 0.5 tab, Drug form: MISC, Route: PO, Bedtime, 04/25/16 21:00:00 CDT, Duration: 30 day, Stop date: 05/24/16 21:00:00 CDT potassium No Notes: Memori a chloride 04-25 (Same as: l 14:30: Potassium Conrad 00 Chloride) Mag-Ox 400 No 500 mg, Arturo sony 04-25 Route: PO, l 14:00: Drug form: Rowley 00 TAB, Daily, Dosing Weight 68.636, kg, Start date: 04/25/16 9:00:00 CDT, Duration: 30 day, Stop date: 05/24/16 9:00:00 CDT Sertraline No Sertraline M emoria 25 mg 9- 25 mg l tablet 02:00: tablet, Rowley 00 0.5 tab, Drug form: MISC, Route: PO, Bedtime, 04/24/16 21:00:00 CDT, Duration: 30 day, Stop date: 05/23/16 21:00:00 CDT oxybutynin No Notes: Memor ia 8-31 Same as: l 22:00: Ditropan) Pindolol No 2.5 mg, Memori a 8 Route: PO, l 22:00: Drug form: Rowley 00 TAB, BID, Dosing Weight 68.636, kg, Start date: 04/24/16 17:00:00 CDT, Duration: 30 day, Stop date: 05/24/16 9:00:00 CDT oxybutynin No 5 mg, Memori a extended 04-24 Route: PO, l release 22:00: Drug form: Herm angela 00 ERTAB, BID, Dosing Weight 68.636, kg, Start date: 04/24/16 17:00:00 CDT, Duration: 30 day, Stop date: 05/24/16 9:00:00 CDT pindolol 5 No pindolol 5 M emoria mg tab 8-31 mg tab, l 18:00: 2.5 mg, 0.5 tab, Drug form: MISC, Route: PO, BID, 04/24/16 13:00:00 CDT, Duration: 30 day, Stop date: 05/24/16 9:00:00 CDT Midodrine No Notes: Memori a 8-31 (Same l 18:00: as:Proamat ine) bisoprolol No Notes: Memor ia 8-31 (Same As: l 16:30: Zebeta) 2.5 mg = 1/2 x 5 mg tab Keflex No Notes: Memoria 8-31 Take on l 14:00: empty stomach. (Same As: Keflex) Vitamin D3 No Notes: Memor ia 8-31 Same as : l 14:00: Vitamin D3 Conrad 00 Folic Acid No 0.8 mg, 2 Me moria 04-24 tab, l 14:00: Route: PO, Rowley 00 Drug form: TAB, Daily, Dosing Weight 68.636, kg, Start date: 04/24/16 9:00:00 CDT, Duration: 30 day, Stop date: 05/23/16 9:00:00 CDT Vitamin D3 No 5,000 Memori a 5000 intl 04-24 unit, l units oral 14:00: Route: PO, H ermann capsule 00 Daily, Dosing Weight 68.636, kg, Start date: 04/24/16 9:00:00 CDT, Duration: 30 day, Stop date: 05/23/16 9:00:00 CDT Sertraline No Sertraline M emoria 25 mg 04-24 25 mg l tablet 14:00: tablet, Conrad 00 0.5 tab, Drug form: MISC, Route: PO, Daily, 04/24/16 9:00:00 CDT, Duration: 30 day, Stop date: 05/23/16 9:00:00 CDT Sertraline No 12.5 mg, Mem oria 04-24 Route: PO, l 14:00: Drug form: Rowley 00 TAB, Daily, Dosing Weight 68.636, kg, Start date: 04/24/16 9:00:00 CDT, Duration: 30 day, Stop date: 05/23/16 9:00:00 CDT Potassium No 10 mEq, 1 Mem oria Chloride 10 04-24 tab, l MEQ 14:00: Route: PO, Conrad Extended 00 Drug form: Release ERTAB, Tablet Daily, Dosing Weight 68.636, kg, Start date: 04/24/16 9:00:00 CDT, Duration: 30 day, Stop date: 05/23/16 9:00:00 CDT Mag-Ox 400 No Notes: Memor ia 04-24 (Same as: l 11:53: Mag-Ox Conrad 400) Magnesium oxide 245rm=230q g elemental magnesium Dose=____m g magnesium oxide (___mg elemental magnesium) Hydralazine No Notes: Arturo sony 04-23 (Same as: l 09:51: Apresoline Rowley 00 ) Push over 5 minutes hydrALAZINE No Notes: Arturo sony 8-30 (Same as: l 08:32: Apresoline Conrad ) Push over 5 minutes Hydralazine No Notes: Arturo sony 8-30 (Same as: l 08:09: Apresoline Rowley ) Push over 5 minutes Ramipril No Notes: Memoria 8-30 (Same l 07:08: as:Altace) Rowley 00 24 HR No Notes: Memoria Nifedipine 8-30 (Same as: l 30 MG 02:43: Adalat CC, Galen n Extended 00 Procardia Release XL) Give Tablet on empty [Procardia] stomach. Take 1 hour before or 2 hours after meal; "Avoid grapefruit and grapefruit juice". Do not crush Synthroid No Notes: Memori a 8-29 Take 1 l 14:10: hour Conrad 00 before or 2 hours after meal; Enteral feeds may interefere with the absorption of this medication . (Same as:Synthro id, Levothroid ) Aspirin No Notes: (Do Arturo sony 8-29 Not Crush) l 14:00: Do not Rowley 00 crush or chew. Thyroxine No Notes: Memori a 8-29 Take 1 l 11:30: hour Rowley 00 before or 2 hours after meal; Enteral feeds may interefere with the absorption of this medication . (Same as:Synthro id, Levothroid ) heparin No Notes: Memoria 8-29 porcine l 05:00: heparin Rowley 00 Ramipril No Notes: Memoria 8-29 (Same l 03:10: as:Altace) Conrad 00 Phenergan No Notes: Memori a 8-29 (Same as: l 02:37: Phenergan) Rowley 00 6.25 mg = 1/2 x 12.5 mg TAB Triamcinolo Yes 1 appl, Mem oria ne 04-22 TOP, TID, l Acetonide 02:36: # 15 gm, 0 He rmann 0.001 MG/MG 00 Refill(s) Topical Ointment oxybutynin Yes 5 mg = 1 Mem oria 5 mg oral 8-29 tab, PO, l tablet 02:36: BID, # 60 Galen n 00 tab, 1 Refill(s) ramipril Yes 2.5 mg = 1 Mem oria 2.5 mg oral 04-22 cap, PO, l capsule 02:36: Daily, 0 Galen n 00 Refill(s) folic acid Yes 0.8 mg = 1 M emoria 0.8 mg oral 04-22 tab, PO, l tablet 02:36: Daily, 0 Rowley 00 Refill(s) Cephalexin Yes 500 mg = 1 M emoria 500 MG Oral 04-22 cap, PO, l Capsule 02:36: Daily, # Galen n [Keflex] 00 40 cap, 0 Refill(s) sertraline Yes See Memoria 25 mg oral 04-22 Instructio l tablet 02:36: ns, 0.5 Rowley 00 tab PO Daily 30 day, 1 Refill(s) Aspirin 325 Yes 325 mg = 1 Memoria MG Oral 04-22 tab, PO, l Tablet 02:36: Daily, # Conrad 00 30 tab, 0 Refill(s) potassium Yes 15 mEq = 1 Me moria citrate 15 - tab, PO, l MEQ 02:36: Daily, 0 Conrad Extended 00 Refill(s) Release Tablet [Urocit-K] Probiotic Yes 1 cap, PO, Me moria Formula 04-22 Daily, 0 l oral 02:36: Refill(s) Conrad capsule 00 24 HR No 30 mg = 1 Memoria Nifedipine - tab, PO, l 30 MG 02:36: PRN, # 30 Conrad Extended 00 tab, 0 Release Refill(s) Tablet magnesium Yes 500 mg = 1 Me moria oxide 500 8- tab, PO, l mg oral 02:36: Daily, # Galen n tablet 00 10 tab, 0 Refill(s) ramipril 5 No 5 mg = 1 Mem oria mg oral -29 cap, PO, l capsule 02:36: PRN, # 30 Mela nn 00 cap, 1 Refill(s) Docusate No Notes: Memoria 8- (Same as: l 02:32: Colace) (Do Not Crush) Acetaminoph No Notes: Do M emoria en 04-22 not exceed l 02:32: 4 gm/day. (Same as: Tylenol) Vitamin D3 Yes 0 Memoria 04-22 Refill(s) l 01:37: Rowley Levothyroxi Yes 75 Memori a ne Sodium 04-22 microgram l 0.075 MG 01:37: = 1 tab, Mela nn Oral Tablet 00 PO, Daily, [Synthroid] 0 Refill(s) oxybutynin No 5 mg = 1 Mem oria 5 mg oral 04-22 tab, PO, l tablet, 01:37: BID, # 30 Mela nn extended 00 tab, 0 release Refill(s) Cephalexin No 500 mg = 1 M emoria 500 MG Oral 04-22 cap, PO, l Capsule 01:37: QID, # 40 Mela nn [Keflex] 00 cap, 0 Refill(s) Magnesium Yes [id number] 500mg Take 500 NPI:183 250 mg Tab 3-14 mg by [id number] 20:10: mouth. 26 oxybutynin Yes NPI:183 XL 1-19 [id number] (DITROPAN-X 00:00: L) 5 mg 24 00 hr tablet cephALEXin Yes NPI:183 (KEFLEX) 1-19 [id number] 500 mg 00:00: capsule 00 oxybutynin Yes NPI:183 XL 1-19 [id number] (DITROPAN-X 00:00: L) 5 mg 24 00 hr tablet cephALEXin Yes NPI:183 (KEFLEX) 1-19 [id number] 500 mg 00:00: capsule 00 oxybutynin Yes NPI:183 XL 1-19 [id number] (DITROPAN-X 00:00: L) 5 mg 24 00 hr tablet cephALEXin Yes NPI:183 (KEFLEX) 1-19 [id number] 500 mg 00:00: capsule 00 oxybutynin Yes NPI:183 XL 1-19 [id number] (DITROPAN-X 00:00: L) 5 mg 24 00 hr tablet cephALEXin 2016-0 Yes NPI:183 (KEFLEX) 1-19 [id number] 500 mg 00:00: capsule 00 oxybutynin 2015-0 Yes NPI:183 XL 1-19 [id number] (DITROPAN-X 00:00: L) 5 mg 24 00 hr tablet cephALEXin 2016-0 Yes NPI:183 (KEFLEX) 1-19 [id number] 500 mg 00:00: capsule 00 oxybutynin 2015-0 Yes NPI:183 XL 1-19 [id number] (DITROPAN-X 00:00: L) 5 mg 24 00 hr tablet cephALEXin 2015-0 Yes NPI:183 (KEFLEX) 1-19 [id number] 500 mg 00:00: capsule 00 oxybutynin 2015-0 Yes NPI:183 XL 1-19 [id number] (DITROPAN-X 00:00: L) 5 mg 24 00 hr tablet cephALEXin 2015-0 Yes NPI:183 (KEFLEX) 1-19 [id number] 500 mg 00:00: capsule 00 oxybutynin 2015-0 Yes NPI:183 XL 1-19 [id number] (DITROPAN-X 00:00: L) 5 mg 24 00 hr tablet cephALEXin 0 Yes NPI:183 (KEFLEX) 1-19 [id number] 500 mg 00:00: capsule 00 oxybutynin 2015-0 Yes NPI:183 XL 1-19 [id number] (DITROPAN-X 00:00: L) 5 mg 24 00 hr tablet cephALEXin 0 Yes NPI:183 (KEFLEX) 1-19 [id number] 500 mg 00:00: capsule 00 oxybutynin 2015-0 Yes NPI:183 XL 1-19 [id number] (DITROPAN-X 00:00: L) 5 mg 24 00 hr tablet cephALEXin 0 Yes NPI:183 (KEFLEX) 1-19 [id number] 500 mg 00:00: capsule 00 oxybutynin 2015-0 Yes NPI:183 XL 1-19 [id number] (DITROPAN-X 00:00: L) 5 mg 24 00 hr tablet cephALEXin 2015-0 Yes NPI:183 (KEFLEX) 1-19 [id number] 500 mg 00:00: capsule 00 oxybutynin 2016-0 Yes NPI:183 XL 1-19 [id number] (DITROPAN-X 00:00: L) 5 mg 24 00 hr tablet cephALEXin 2016-0 Yes NPI:183 (KEFLEX) 1-19 [id number] 500 mg 00:00: capsule 00 oxybutynin 2016-0 Yes NPI:183 XL 1-19 [id number] (DITROPAN-X 00:00: L) 5 mg 24 00 hr tablet cephALEXin 2016-0 Yes NPI:183 (KEFLEX) 1- [id number] 500 mg 00:00: capsule 00 oxybutynin 2015-0 Yes NPI:183 XL 1- [id number] (DITROPAN-X 00:00: L) 5 mg 24 00 hr tablet cephALEXin 2015-0 Yes NPI:183 (KEFLEX) 1- [id number] 500 mg 00:00: capsule 00 oxybutynin 2015-0 Yes NPI:183 XL 1- [id number] (DITROPAN-X 00:00: L) 5 mg 24 00 hr tablet cephALEXin 2015-0 Yes NPI:183 (KEFLEX) 1- [id number] 500 mg 00:00: capsule 00 oxybutynin 2015-0 Yes NPI:183 XL 1- [id number] (DITROPAN-X 00:00: L) 5 mg 24 00 hr tablet cephALEXin 2015-0 Yes NPI:183 (KEFLEX) 1 [id number] 500 mg 00:00: capsule 00 oxybutynin 2015-0 Yes NPI:183 XL 1- [id number] (DITROPAN-X 00:00: L) 5 mg 24 00 hr tablet cephALEXin 2015-0 Yes NPI:183 (KEFLEX) 1- [id number] 500 mg 00:00: capsule 00 oxybutynin 2015-0 Yes NPI:183 XL 1- [id number] (DITROPAN-X 00:00: L) 5 mg 24 00 hr tablet cephALEXin 2015-0 Yes NPI:183 (KEFLEX) 1- [id number] 500 mg 00:00: capsule 00 oxybutynin 2015-0 Yes NPI:183 XL 1- [id number] (DITROPAN-X 00:00: L) 5 mg 24 00 hr tablet cephALEXin 2016-0 Yes NPI:183 (KEFLEX) 1-19 [id number] 500 mg 00:00: capsule 00 oxybutynin 2016-0 Yes NPI:183 XL 1-19 [id number] (DITROPAN-X 00:00: L) 5 mg 24 00 hr tablet cephALEXin 2016-0 Yes NPI:183 (KEFLEX) 1-19 [id number] 500 mg 00:00: capsule 00 oxybutynin 2016-0 Yes NPI:183 XL 1-19 [id number] (DITROPAN-X 00:00: L) 5 mg 24 00 hr tablet cephALEXin 2016-0 Yes NPI:183 (KEFLEX) 1- [id number] 500 mg 00:00: capsule 00 oxybutynin 2015-0 Yes NPI:183 XL 1- [id number] (DITROPAN-X 00:00: L) 5 mg 24 00 hr tablet cephALEXin 2015-0 Yes NPI:183 (KEFLEX) 1- [id number] 500 mg 00:00: capsule 00 oxybutynin 2015-0 Yes NPI:183 XL 1- [id number] (DITROPAN-X 00:00: L) 5 mg 24 00 hr tablet cephALEXin 0 Yes NPI:183 (KEFLEX) 1- [id number] 500 mg 00:00: capsule 00 oxybutynin 2015-0 Yes NPI:183 XL 1- [id number] (DITROPAN-X 00:00: L) 5 mg 24 00 hr tablet cephALEXin 2015-0 Yes NPI:183 (KEFLEX) 1-19 [id number] 500 mg 00:00: capsule 00 oxybutynin 2015-0 Yes NPI:183 XL 1- [id number] (DITROPAN-X 00:00: L) 5 mg 24 00 hr tablet cephALEXin 2015-0 Yes NPI:183 (KEFLEX) 1- [id number] 500 mg 00:00: capsule 00 oxybutynin 2015-0 Yes NPI:183 XL 1-19 [id number] (DITROPAN-X 00:00: L) 5 mg 24 00 hr tablet cephALEXin 2015-0 Yes NPI:183 (KEFLEX) 1-19 [id number] 500 mg 00:00: capsule 00 oxybutynin 2015-0 Yes NPI:183 XL 1-19 [id number] (DITROPAN-X 00:00: L) 5 mg 24 00 hr tablet cephALEXin Yes NPI:183 (KEFLEX) 1-19 [id number] 500 mg 00:00: capsule 00 oxybutynin Yes NPI:183 XL 1-19 [id number] (DITROPAN-X 00:00: L) 5 mg 24 00 hr tablet cephALEXin Yes NPI:183 (KEFLEX) 1-19 [id number] 500 mg 00:00: capsule 00 folic acid Yes [id number] Take by NPI:183 (FA-8) 0.8 9-28 mouth. [id number] mg Cap 17:57: 49 SERTraline 0 Yes [id number] 12.5mg 12.5 mg. NPI:183 (ZOLOFT) 25 9-23 [id number] mg tablet 00:00: 00 SYNTHROID 0 Yes [id number] NPI: 183 75 mcg 9-23 [id number] tablet 00:00: 00 SERTraline 0 Yes [id number] 12.5mg 12.5 mg. NPI:183 (ZOLOFT) 25 9-23 [id number] mg tablet 00:00: 00 SYNTHROID 0 Yes [id number] NPI: 183 75 mcg 9-23 [id number] tablet 00:00: 00 SERTraline 0 Yes [id number] 12.5mg 12.5 mg. NPI:183 (ZOLOFT) 25 9-23 [id number] mg tablet 00:00: 00 SYNTHROID 0 Yes [id number] NPI: 183 75 mcg 9-23 [id number] tablet 00:00: 00 SERTraline 0 Yes [id number] 12.5mg 12.5 mg. NPI:183 (ZOLOFT) 25 9-23 [id number] mg tablet 00:00: 00 SYNTHROID 0 Yes [id number] NPI: 183 75 mcg 9-23 [id number] tablet 00:00: 00 SERTraline 0 Yes [id number] 12.5mg 12.5 mg. NPI:183 (ZOLOFT) 25 9-23 [id number] mg tablet 00:00: 00 SYNTHROID 0 Yes [id number] NPI: 183 75 mcg 9-23 [id number] tablet 00:00: 00 SERTraline 2015-0 Yes [id number] 12.5mg 12.5 mg. NPI:183 (ZOLOFT) 25 9-23 [id number] mg tablet 00:00: 00 SYNTHROID 2015-0 Yes [id number] NPI: 183 75 mcg 9-23 [id number] tablet 00:00: 00 SERTraline 2015-0 Yes [id number] 12.5mg 12.5 mg. NPI:183 (ZOLOFT) 25 9-23 [id number] mg tablet 00:00: 00 SYNTHROID 2015-0 Yes [id number] NPI: 183 75 mcg 9-23 [id number] tablet 00:00: 00 SERTraline 2015-0 Yes [id number] 12.5mg 12.5 mg. NPI:183 (ZOLOFT) 25 9-23 [id number] mg tablet 00:00: 00 SYNTHROID 2015-0 Yes [id number] NPI: 183 75 mcg 9-23 [id number] tablet 00:00: 00 SERTraline 2015-0 Yes [id number] 12.5mg 12.5 mg. NPI:183 (ZOLOFT) 25 9-23 [id number] mg tablet 00:00: 00 SYNTHROID 2015-0 Yes [id number] NPI: 183 75 mcg 9-23 [id number] tablet 00:00: 00 SERTraline 2015-0 Yes [id number] 12.5mg 12.5 mg. NPI:183 (ZOLOFT) 25 9-23 [id number] mg tablet 00:00: 00 SYNTHROID 2015-0 Yes [id number] NPI: 183 75 mcg 9-23 [id number] tablet 00:00: 00 SERTraline 2015-0 Yes [id number] 12.5mg 12.5 mg. NPI:183 (ZOLOFT) 25 9-23 [id number] mg tablet 00:00: 00 SYNTHROID 2015-0 Yes [id number] NPI: 183 75 mcg 9-23 [id number] tablet 00:00: 00 SYNTHROID 2015-0 Yes [id number] NPI: 183 75 mcg 9-23 [id number] tablet 00:00: 00 SYNTHROID 2015-0 Yes [id number] NPI: 183 75 mcg 9-23 [id number] tablet 00:00: 00 SYNTHROID 2015-0 Yes [id number] NPI: 183 75 mcg 9-23 [id number] tablet 00:00: 00 SYNTHROID 2015-0 Yes [id number] NPI: 183 75 mcg 9-23 [id number] tablet 00:00: 00 SYNTHROID 2015-0 Yes [id number] NPI: 183 75 mcg 9-23 [id number] tablet 00:00: 00 SYNTHROID 2015-0 Yes [id number] NPI: 183 75 mcg 9-23 [id number] tablet 00:00: 00 SYNTHROID 2015-0 Yes [id number] NPI: 183 75 mcg 9-23 [id number] tablet 00:00: 00 SYNTHROID 2015-0 Yes [id number] NPI: 183 75 mcg 9-23 [id number] tablet 00:00: 00 SYNTHROID 2015-0 Yes [id number] NPI: 183 75 mcg 9-23 [id number] tablet 00:00: 00 SYNTHROID 2015-0 Yes [id number] NPI: 183 75 mcg 9-23 [id number] tablet 00:00: 00 SYNTHROID 2015-0 Yes [id number] NPI: 183 75 mcg 9-23 [id number] tablet 00:00: 00 SYNTHROID 2015-0 Yes [id number] NPI: 183 75 mcg 9-23 [id number] tablet 00:00: 00 SYNTHROID 2015-0 Yes [id number] NPI: 183 75 mcg 9-23 [id number] tablet 00:00: 00 SYNTHROID 2015-0 Yes [id number] NPI: 183 75 mcg 9-23 [id number] tablet 00:00: 00 SYNTHROID 2015-0 Yes [id number] NPI: 183 75 mcg 9-23 [id number] tablet 00:00: 00 SYNTHROID 2015-0 Yes [id number] NPI: 183 75 mcg 9-23 [id number] tablet 00:00: 00 SYNTHROID 2015-0 Yes [id number] NPI: 183 75 mcg 9-23 [id number] tablet 00:00: 00 Immunizations Ordered Immunization Filled Immunization Date Status Commen ts Source Name Name SARS-COV-2 COVID-19 2020-11-06 Completed NPI:1 [id number] PFIZER VACCINE 00:00:00 SARS-COV-2 COVID-19 2020-11-06 Completed NPI:1 [id number] PFIZER VACCINE 00:00:00 SARS-COV-2 COVID-19 2020-11-06 Completed NPI:1 [id number] PFIZER VACCINE 00:00:00 SARS-COV-2 COVID-19 2020-11-06 Completed NPI:1 [id number] PFIZER VACCINE 00:00:00 SARS-COV-2 COVID-19 2020-11-06 Completed NPI:1 [id number] PFIZER VACCINE 00:00:00 SARS-COV-2 COVID-19 2020-11-06 Completed NPI:1 [id number] PFIZER VACCINE 00:00:00 SARS-COV-2 COVID-19 2020-11-06 Completed NPI:1 [id number] PFIZER VACCINE 00:00:00 SARS-COV-2 COVID-19 2020-11-06 Completed NPI:1 [id number] PFIZER VACCINE 00:00:00 SARS-COV-2 COVID-19 2020-11-06 Completed NPI:1 [id number] PFIZER VACCINE 00:00:00 SARS-COV-2 COVID-19 2020-11-06 Completed NPI:1 [id number] PFIZER VACCINE 00:00:00 SARS-COV-2 COVID-19 2020-11-06 Completed NPI:1 [id number] PFIZER VACCINE 00:00:00 SARS-COV-2 COVID-19 2020-11-06 Completed NPI:1 [id number] PFIZER VACCINE 00:00:00 SARS-COV-2 COVID-19 2020-11-06 Completed NPI:1 [id number] PFIZER VACCINE 00:00:00 SARS-COV-2 COVID-19 2020-11-06 Completed NPI:1 [id number] PFIZER VACCINE 00:00:00 SARS-COV-2 COVID-19 2020-11-06 Completed NPI:1 [id number] PFIZER VACCINE 00:00:00 SARS-COV-2 COVID-19 2020-10-16 Completed NPI:1 [id number] PFIZER VACCINE 00:00:00 SARS-COV-2 COVID-19 2020-10-16 Completed NPI:1 [id number] PFIZER VACCINE 00:00:00 SARS-COV-2 COVID-19 2020-10-16 Completed NPI:1 [id number] PFIZER VACCINE 00:00:00 SARS-COV-2 COVID-19 2020-10-16 Completed NPI:1 [id number] PFIZER VACCINE 00:00:00 SARS-COV-2 COVID-19 2020-10-16 Completed NPI:1 [id number] PFIZER VACCINE 00:00:00 SARS-COV-2 COVID-19 2020-10-16 Completed NPI:1 [id number] PFIZER VACCINE 00:00:00 SARS-COV-2 COVID-19 2020-10-16 Completed NPI:1 [id number] PFIZER VACCINE 00:00:00 SARS-COV-2 COVID-19 2020-10-16 Completed NPI:1 [id number] PFIZER VACCINE 00:00:00 SARS-COV-2 COVID-19 2020-10-16 Completed NPI:1 [id number] PFIZER VACCINE 00:00:00 SARS-COV-2 COVID-19 2020-10-16 Completed NPI:1 [id number] PFIZER VACCINE 00:00:00 SARS-COV-2 COVID-19 2020-10-16 Completed NPI:1 [id number] PFIZER VACCINE 00:00:00 SARS-COV-2 COVID-19 2020-10-16 Completed NPI:1 [id number] PFIZER VACCINE 00:00:00 SARS-COV-2 COVID-19 2020-10-16 Completed NPI:1 [id number] PFIZER VACCINE 00:00:00 SARS-COV-2 COVID-19 2020-10-16 Completed NPI:1 [id number] PFIZER VACCINE 00:00:00 SARS-COV-2 COVID-19 2020-10-16 Completed NPI:1 [id number] PFIZER VACCINE 00:00:00 Influenza High Dose 2019-06-03 Completed NPI:1 [id number] 00:00:00 Influenza High Dose 2019-06-03 Completed NPI:1 [id number] 00:00:00 Influenza High Dose 2019-06-03 Completed NPI:1 [id number] 00:00:00 Influenza High Dose 2019-06-03 Completed NPI:1 [id number] 00:00:00 Influenza High Dose 2019-06-03 Completed NPI:1 [id number] 00:00:00 Influenza High Dose 2019-06-03 Completed NPI:1 [id number] 00:00:00 Influenza High Dose 2019-06-03 Completed NPI:1 [id number] 00:00:00 Influenza High Dose 2019-06-03 Completed NPI:1 [id number] 00:00:00 Influenza High Dose 2019-06-03 Completed NPI:1 [id number] 00:00:00 Influenza High Dose 2019-06-03 Completed NPI:1 [id number] 00:00:00 Influenza High Dose 2019-06-03 Completed NPI:1 [id number] 00:00:00 Influenza High Dose 2019-06-03 Completed NPI:1 [id number] 00:00:00 Influenza High Dose 2019-06-03 Completed NPI:1 [id number] 00:00:00 Influenza High Dose 2019-06-03 Completed NPI:1 [id number] 00:00:00 Influenza High Dose 2019-06-03 Completed NPI:1 [id number] 00:00:00 Influenza High Dose 2019-06-03 Completed NPI:1 [id number] 00:00:00 Influenza High Dose 2019-06-03 Completed NPI:1 [id number] 00:00:00 Influenza High Dose 2019-06-03 Completed NPI:1 [id number] 00:00:00 Influenza High Dose 2019-06-03 Completed NPI:1 [id number] 00:00:00 Influenza High Dose 2019-06-03 Completed NPI:1 [id number] 00:00:00 Influenza High Dose 2019-06-03 Completed NPI:1 [id number] 00:00:00 Influenza High Dose 2019-06-03 Completed NPI:1 [id number] 00:00:00 Influenza High Dose 2019-06-03 Completed NPI:1 [id number] 00:00:00 Influenza High Dose 2019-06-03 Completed NPI:1 [id number] 00:00:00 Influenza High Dose 2019-06-03 Completed NPI:1 [id number] 00:00:00 Pneumococcal 13 2018-06-19 Completed NPI:[id number] 10690 Conjugate, PCV13 00:00:00 (Prevnar 13) Pneumococcal 13 2018-06-19 Completed NPI:59579 77914 Conjugate, PCV13 00:00:00 (Prevnar 13) Pneumococcal 13 2018-06-19 Completed NPI:[id number] 51683 Conjugate, PCV13 00:00:00 (Prevnar 13) Pneumococcal 13 2018-06-19 Completed NPI:[id number] 39341 Conjugate, PCV13 00:00:00 (Prevnar 13) Pneumococcal 13 2018-06-19 Completed NPI:24468 98794 Conjugate, PCV13 00:00:00 (Prevnar 13) Pneumococcal 13 2018-06-19 Completed NPI:85945 23054 Conjugate, PCV13 00:00:00 (Prevnar 13) Pneumococcal 13 2018-06-19 Completed NPI:[id number] 87287 Conjugate, PCV13 00:00:00 (Prevnar 13) Pneumococcal 13 2018-06-19 Completed NPI:[id number] 93551 Conjugate, PCV13 00:00:00 (Prevnar 13) Pneumococcal 13 2018-06-19 Completed NPI:29431 84329 Conjugate, PCV13 00:00:00 (Prevnar 13) Pneumococcal 13 2018-06-19 Completed NPI:42597 25102 Conjugate, PCV13 00:00:00 (Prevnar 13) Pneumococcal 13 2018-06-19 Completed NPI:21696 19587 Conjugate, PCV13 00:00:00 (Prevnar 13) Pneumococcal 13 2018-06-19 Completed NPI:46004 74919 Conjugate, PCV13 00:00:00 (Prevnar 13) Pneumococcal 13 2018-06-19 Completed NPI:[id number] 47833 Conjugate, PCV13 00:00:00 (Prevnar 13) Pneumococcal 13 2018-06-19 Completed NPI:97227 79248 Conjugate, PCV13 00:00:00 (Prevnar 13) Pneumococcal 13 2018-06-19 Completed NPI:98799 01401 Conjugate, PCV13 00:00:00 (Prevnar 13) Pneumococcal 13 2018-06-19 Completed NPI:05479 08569 Conjugate, PCV13 00:00:00 (Prevnar 13) Pneumococcal 13 2018-06-19 Completed NPI:18418 95026 Conjugate, PCV13 00:00:00 (Prevnar 13) Pneumococcal 13 2018-06-19 Completed NPI:16621 55423 Conjugate, PCV13 00:00:00 (Prevnar 13) Pneumococcal 13 2018-06-19 Completed NPI:[id number] 50262 Conjugate, PCV13 00:00:00 (Prevnar 13) Pneumococcal 13 2018-06-19 Completed NPI:19666 23298 Conjugate, PCV13 00:00:00 (Prevnar 13) Pneumococcal 13 2018-06-19 Completed NPI:79967 38852 Conjugate, PCV13 00:00:00 (Prevnar 13) Pneumococcal 13 2018-06-19 Completed NPI:57656 34175 Conjugate, PCV13 00:00:00 (Prevnar 13) Pneumococcal 13 2018-06-19 Completed NPI:03608 08411 Conjugate, PCV13 00:00:00 (Prevnar 13) Pneumococcal 13 2018-06-19 Completed NPI:74070 99780 Conjugate, PCV13 00:00:00 (Prevnar 13) Pneumococcal 13 2018-06-19 Completed NPI:[id number] 37408 Conjugate, PCV13 00:00:00 (Prevnar 13) Influenza High Dose 2016-09-03 Completed NPI:1 [id number] 00:00:00 Influenza High Dose 2016-09-03 Completed NPI:1 [id number] 00:00:00 Influenza High Dose 2016-09-03 Completed NPI:1 [id number] 00:00:00 Influenza High Dose 2016-09-03 Completed NPI:1 [id number] 00:00:00 Influenza High Dose 2016-09-03 Completed NPI:1 [id number] 00:00:00 Influenza High Dose 2016-09-03 Completed NPI:1 [id number] 00:00:00 Influenza High Dose 2016-09-03 Completed NPI:1 [id number] 00:00:00 Influenza High Dose 2016-09-03 Completed NPI:1 [id number] 00:00:00 Influenza High Dose 2016-09-03 Completed NPI:1 [id number] 00:00:00 Influenza High Dose 2016-09-03 Completed NPI:1 [id number] 00:00:00 Influenza High Dose 2016-09-03 Completed NPI:1 [id number] 00:00:00 Influenza High Dose 2016-09-03 Completed NPI:1 [id number] 00:00:00 Influenza High Dose 2016-09-03 Completed NPI:1 [id number] 00:00:00 Influenza High Dose 2016-09-03 Completed NPI:1 [id number] 00:00:00 Influenza High Dose 2016-09-03 Completed NPI:1 [id number] 00:00:00 Influenza High Dose 2016-09-03 Completed NPI:1 [id number] 00:00:00 Influenza High Dose 2016-09-03 Completed NPI:1 [id number] 00:00:00 Influenza High Dose 2016-09-03 Completed NPI:1 [id number] 00:00:00 Influenza High Dose 2016-09-03 Completed NPI:1 [id number] 00:00:00 Influenza High Dose 2016-09-03 Completed NPI:1 [id number] 00:00:00 Influenza High Dose 2016-09-03 Completed NPI:1 [id number] 00:00:00 Influenza High Dose 2016-09-03 Completed NPI:1 [id number] 00:00:00 Influenza High Dose 2016-09-03 Completed NPI:1 [id number] 00:00:00 Influenza High Dose 2016-09-03 Completed NPI:1 [id number] 00:00:00 Influenza High Dose 2016-09-03 Completed NPI:1 [id number] 00:00:00 Influenza High Dose 2016-09-03 Completed NPI:1 [id number] 00:00:00 Influenza High Dose 2016-09-03 Completed NPI:1 [id number] 00:00:00 Influenza High Dose 2016-09-03 Completed NPI:1 [id number] 00:00:00 Vital Signs Vital Name Observation Time Observation Value Comments Source Systolic blood 2021-10-25 14:57:00 168 mm[Hg] NPI:18 [id number] pressure Diastolic blood 2021-10-25 14:57:00 71 mm[Hg] NPI:1 [id number] pressure Heart rate 2021-10-25 14:57:00 73 /min NPI:1831 [id number] Body temperature 2021-10-25 14:57:00 36.61 Keira Respiratory rate 2021-10-25 14:57:00 19 /min Body height 2021-10-25 14:57:00 160 cm NPI:1831 [id number] Body weight 2021-10-25 14:57:00 54.432 kg NPI:1831 [id number] BMI 2021-10-25 14:57:00 21.26 kg/m2 NPI:1831 [id number] Oxygen saturation in 2021-10-25 14:57:00 98 /min Arterial blood by Pulse oximetry Systolic blood 2021-04-12 14:10:00 160 mm[Hg] NPI:18 [id number] pressure Diastolic blood 2021-04-12 14:10:00 80 mm[Hg] NPI:1 [id number] pressure Heart rate 2021-04-12 14:10:00 74 /min NPI:1831 [id number] Body temperature 2021-04-12 14:10:00 37.33 Keira Respiratory rate 2021-04-12 14:10:00 16 /min Body height 2021-04-12 14:10:00 157.5 cm NPI:1831 939117 Body weight 2021-04-12 14:10:00 54.432 kg NPI:1831 988323 BMI 2021-04-12 14:10:00 21.95 kg/m2 NPI:1831 524805 Oxygen saturation in 2021-04-12 14:10:00 99 /min Arterial blood by Pulse oximetry Systolic blood 2021-03-30 16:20:00 145 mm[Hg] NPI:18 [id number] pressure Diastolic blood 2021-03-30 16:20:00 74 mm[Hg] NPI:1 [id number] pressure Heart rate 2021-03-30 16:20:00 71 /min NPI:1831 544373 Body weight 2021-03-30 16:20:00 54.795 kg NPI:1831 [id number] BMI 2021-03-30 16:20:00 21.40 kg/m2 NPI:1831 427598 Oxygen saturation in 2021-03-30 16:20:00 100 /min Arterial blood by Pulse oximetry Systolic blood 2020-12-07 15:39:00 162 mm[Hg] NPI:18 [id number] pressure Diastolic blood 2020-12-07 15:39:00 83 mm[Hg] NPI:1 [id number] pressure Heart rate 2020-12-07 15:39:00 97 /min NPI:1831 [id number] Respiratory rate 2020-12-07 15:39:00 26 /min Oxygen saturation in 2020-12-07 15:39:00 98 /min Arterial blood by Pulse oximetry Body temperature 2020-12-07 15:04:00 36.33 Keira Body height 2020-11-30 18:07:00 160 cm NPI:1831 [id number] Body weight 2020-11-30 18:07:00 56.7 kg NPI:1831 694253 BMI 2020-11-30 18:07:00 22.15 kg/m2 NPI:1831 062564 Systolic blood 2020-12-07 15:39:00 162 mm[Hg] NPI:18 [id number] pressure Diastolic blood 2020-12-07 15:39:00 83 mm[Hg] NPI:1 [id number] pressure Heart rate 2020-12-07 15:39:00 97 /min NPI:1831 627997 Respiratory rate 2020-12-07 15:39:00 26 /min Oxygen saturation in 2020-12-07 15:39:00 98 /min Arterial blood by Pulse oximetry Body temperature 2020-12-07 15:04:00 36.33 Keira Body height 2020-11-30 18:07:00 160 cm NPI:1831 000151 Body weight 2020-11-30 18:07:00 56.7 kg NPI:1831 708406 BMI 2020-11-30 18:07:00 22.15 kg/m2 NPI:1831 433861 Systolic blood 2020-03-31 16:34:00 140 mm[Hg] NPI:18 [id number] pressure Diastolic blood 2020-03-31 16:34:00 80 mm[Hg] NPI:1 [id number] pressure Heart rate 2020-03-31 16:34:00 82 /min NPI:1831 940551 Respiratory rate 2020-03-31 16:34:00 16 /min Body height 2020-03-31 16:34:00 157.5 cm NPI:1831 877516 Body weight 2020-03-31 16:34:00 62.415 kg NPI:1831 402088 BMI 2020-03-31 16:34:00 25.17 kg/m2 NPI:1831 296266 Systolic blood 2020-03-31 16:34:00 140 mm[Hg] NPI:18 [id number] pressure Diastolic blood 2020-03-31 16:34:00 80 mm[Hg] NPI:1 [id number] pressure Heart rate 2020-03-31 16:34:00 82 /min NPI:1831 549491 Respiratory rate 2020-03-31 16:34:00 16 /min Body height 2020-03-31 16:34:00 157.5 cm NPI:1831 844743 Body weight 2020-03-31 16:34:00 62.415 kg NPI:1831 766224 BMI 2020-03-31 16:34:00 25.17 kg/m2 NPI:1831 929154 Systolic blood 2019-10-15 17:38:00 135 mm[Hg] NPI:18 [id number] pressure Diastolic blood 2019-10-15 17:38:00 78 mm[Hg] NPI:1 [id number] pressure Heart rate 2019-10-15 17:38:00 74 /min NPI:1831 482507 Respiratory rate 2019-10-15 17:38:00 18 /min Body height 2019-10-15 17:38:00 160 cm NPI:1831 786294 Body weight 2019-10-15 17:38:00 65.772 kg NPI:1831 227319 BMI 2019-10-15 17:38:00 25.69 kg/m2 NPI:1831 621094 Systolic blood 2019-04-09 13:42:00 144 mm[Hg] NPI:18 [id number] pressure Diastolic blood 2019-04-09 13:42:00 82 mm[Hg] NPI:1 [id number] pressure Heart rate 2019-04-09 13:42:00 70 /min NPI:1831 129068 Respiratory rate 2019-04-09 13:42:00 16 /min Body height 2019-04-09 13:42:00 160 cm NPI:1831 026349 Body weight 2019-04-09 13:42:00 63.957 kg NPI:1831 739613 BMI 2019-04-09 13:42:00 24.98 kg/m2 NPI:1831 669067 Height 2020-08-23 14:57:00 160.02 cm [facility] Weight 2020-08-23 14:57:00 [facility] BMI Calculated 2020-08-23 14:57:00 [facility] Systolic (mm Hg) 2020-06-14 15:46:00 [facility] Diastolic (mm Hg) 2020-06-14 15:46:00 [facility] Heart Rate 2020-06-14 15:46:00 [facility] Height 2020-06-14 15:46:00 160.02 cm [facility] Weight 2020-06-14 15:46:00 [facility] BMI Calculated 2020-06-14 15:46:00 [facility] Systolic (mm Hg) 2019-06-02 17:15:00 Arturo [facility] Diastolic (mm Hg) 2019-06-02 17:15:00 [facility] Systolic (mm Hg) 2019-06-02 16:40:00 Arturo [facility] Diastolic (mm Hg) 2019-06-02 16:40:00 [facility] Systolic (mm Hg) 2019-06-02 16:10:00 Arturo rial Cornad Diastolic (mm Hg) 2019-06-02 16:10:00 [facility] Temperature Oral (F) 2019-06-02 11:36:00 98.4 F [facility] Height 2019-06-02 10:43:00 157.48 cm [facility] Weight 2019-06-02 10:43:00 [facility] BMI Calculated 2019-06-02 10:43:00 [facility] Systolic (mm Hg) 2019-05-05 19:46:00 [facility] Diastolic (mm Hg) 2019-05-05 19:46:00 [facility] Heart Rate 2019-05-05 19:46:00 [facility] Respitory Rate 2019-05-05 19:46:00 [facility] Height 2019-05-05 19:46:00 152.4 cm [facility] Weight 2019-05-05 19:46:00 [facility] BMI Calculated 2019-05-05 19:46:00 [facility] Systolic (mm Hg) 2016-10-29 13:36:00 Arturo [facility] Diastolic (mm Hg) 2016-10-29 13:36:00 [facility] Systolic (mm Hg) 2016-10-29 10:30:00 [facility] Diastolic (mm Hg) 2016-10-29 10:30:00 [facility] Systolic (mm Hg) 2016-10-29 08:30:00 [facility] Diastolic (mm Hg) 2016-10-29 08:30:00 [facility] Temperature Oral (F) 2016-10-29 05:00:00 96.6 F [facility] Temperature Oral (F) 2016-10-28 18:45:00 97.0 F [facility] Respitory Rate 2016-10-28 18:45:00 [facility] BMI Calculated 2016-10-28 18:23:00 [facility] Weight 2016-10-28 18:23:00 [facility] Height 2016-10-28 18:23:00 160.02 cm [facility] Systolic (mm Hg) 2016-04-26 20:27:00 [facility] Diastolic (mm Hg) 2016-04-26 20:27:00 [facility] Heart Rate 2016-04-26 20:27:00 [facility] Temperature Oral (F) 2016-04-26 20:27:00 98.4 F [facility] Respitory Rate 2016-04-26 20:27:00 [facility] Systolic (mm Hg) 2016-04-26 16:51:00 [facility]uro [facility] Diastolic (mm Hg) 2016-04-26 16:51:00 [facility] Respitory Rate 2016-04-26 16:51:00 [facility] Temperature Oral (F) 2016-04-26 16:51:00 98.4 F [facility] Heart Rate 2016-04-26 16:51:00 [facility] Diastolic (mm Hg) 2016-04-26 13:02:00 [facility] Systolic (mm Hg) 2016-04-26 13:02:00 [facility] Heart Rate 2016-04-26 13:02:00 [facility] Respitory Rate 2016-04-26 13:00:00 [facility] Temperature Oral (F) 2016-04-26 13:00:00 98.1 F [facility] BMI Calculated 2016-04-22 01:09:00 Shonda Winter Weight 2016-04-22 01:09:00 [facility] Height 2016-04-22 01:09:00 160.02 cm [facility] Procedures Procedure Date / Time Performing Source Performed Clinician ASSIGNMENT OF BENEFITS 2021-10-25 Doctor Unassigned, NPI:18 [id number] 14:47:18 [facility] [id number] 2021-09-18 [facility] [id number] 2021-09-18 [facility] 00:[facility] [id number] 2021-09-18 [facility] 00[facility]00:[facility] [id number] 2021-09-18 [facility] 00:00:[facility] [id number] 2021-09-18 [facility] 00:00:[facility] AUTHORIZATION FOR RELEASE OF 2021-01-02 Doctor Unassigned, PHI 05:01:00 [facility] AUTHORIZATION FOR RELEASE OF 2020-12-08 Doctor Unassigned, PHI 05:01:00 [facility] RECTAL MASS EXCISION 2020-12-07 Riki Reyez NPI:[id number] 13:43:00 PROCTOSIGMOIDOSCOPY 2020-12-07 Riki Reyez NPI:[id number] 13:43:00 EXAM UNDER ANESTHESIA 2020-12-07 Riki Reyez NPI:[id number] 13:43:00 DAY SURGERY - ADC 2020-12-07 Doctor Unassigned, NPI:[id number] 05:01:00 [facility] XR CHEST 2 VW 2020-12-06 Riki Reyez 14:03:00 DSU PRE-OP 2020-12-06 Doctor Unassigned, NPI:[id number] 1 05:01:00 [facility] DSU PRE-OP 2020-11-29 Doctor Unassigned, NPI:[id number] 1 05:01:00 [facility] DSU PRE-OP 2020-11-29 Doctor Unassigned, NPI:[id number] 1 05:01:00 [facility] DSU PRE-OP 2020-11-27 Doctor Unassigned, NPI:[id number] 1 05:01:00 [facility] DSU PRE-OP 2020-11-27 Doctor Unassigned, NPI:[id number] 1 05:01:00 [facility] XR CHEST 2 VW 2020-10-06 Riki Reyez 15:27:41 DEXA PERIPHERAL (FOREARM) 2020-04-11 Yusuf Gibbons 15:15:04 DEXA AXIAL (HIP AND SPINE) 2020-04-11 Yusuf Gibbons NPI :[id number] 15:13:34 ASSIGNMENT OF BENEFITS 2020-04-11 Doctor Unassigned, NPI:18 [id number] 14:16:11 [facility] DEXA AXIAL (HIP AND SPINE) 2019-04-14 Yusuf Gibbons NPI :[id number] 16:36:12 CONSENT/REFUSAL FOR DIAGNOSIS 2019-04-14 Doctor Unassigned, AND TREATMENT 16:01:26 [facility] ASSIGNMENT OF BENEFITS 2019-04-14 Doctor Unassigned, NPI:18 [id number] 16:00:59 [facility] ASSIGNMENT OF BENEFITS 2019-04-09 Doctor Unassigned, NPI:18 [id number] 13:24:09 [facility] 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 koch [facility] prosthesis<sup>1</sup> Placement of stent in cardiac Me [facility] conduit Encounters Start End Encounter Admission Attending Care Care Encounter Source Date/Time Date/Time Type Type Clinicians Facility Department ID 2021-06-24 Outpatient Jeovany REYEZ [facility] [id number] NPI:183 10:58:25 RIKI [id number] Outpatient Jeovany REYEZ [facility] [id number] NPI:183 23:07:21 RIKI [id number] 2022-04-05 Outpatient Jeovany GIBBONS [facility] [id number] NPI:183 11:30:00 11:30:00 YUSUF [id number] 2022-02-27 2022-02-27 Outpatient Jeovany GIBBONS [facility] [id number] NPI:183 00:00:00 00:00:00 YUSUF [id number] 2021-10-25 2021-10-25 Nurse 1, Adc Infusion Nurse [facility] 1.2. [id number] NPI:183 09:00:00 09:15:00 Visit Yusuf Gibbons [id number] [place] [id number] SURGICAL [id number] MAR[place] 053 2021-10-25 2021-10-25 Outpatient R [facility] [id number] NPI:183 09:00:00 09:00:00 [id number] 2021-10-25 2021-10-25 [facility] [id number] NPI:183 09:00:00 09:00:00 YUSUF [id number] 1 2021-10-25 2021-10-25 Orders Doctor GILMORE [id number] NPI:183 00:00:00 00:00:00 Only Unassigned, VELVET [id number] [facility] [id number] 2021-10-19 2021-10-19 Outpatient R [facility] [id number] NPI:183 12:00:00 12:00:00 [id number] 1 2021-10-11 2021-10-11 Outpatient R [facility] [id number] NPI:183 09:30:00 09:30:00 [id number] 1 2021-10-11 2021-10-11 [facility] [id number] NPI:183 09:30:00 09:30:00 YUSUF [id number] 1 2021-09-18 2021-09-21 Inpatient Aj Rootic [facility] MEDI.01 [id number] [facility] 00:40:00 18:15:00 [id number] [facility] 2021-09-18 2021-09-21 Inpatient Aj Rootic [facility] MEDI.01 [id number] [facility] 00:40:00 18:15:00 [facility] 2021-09-18 2021-09-18 Outpatient Iván Cowan HCANW REF BP17 [id number]- [facility] 18:46:00 18:46:00 [id number] [place] [facility] 2021-09-14 2021-09-14 Outpatient Iván Root [facility] 3DAY BP17 [id number]- [facility] 00:00:00 23:59:00 [id number] [place] [facility] [place] are [facility] 2021-09-14 2021-09-14 Outpatient UNKNOWN HCACL LABO [id number] [facility] 17:46:00 17:46:00 [id number] [facility] 2021-08-16 2021-08-16 [id number] [place] 00:00:00 00:00:00 MY, 448 Method i [facility] 2021-04-13 2021-04-13 Outpatient R HALIMA [facility] [id number] -[id number] NPI:183 09:30:00 09:30:00 MEAGHAN [id number] 1 2021-04-12 2021-04-12 Outpatient R [facility] [id number] -20 NPI:183 09:30:00 09:30:00 [id number] 1 2021-04-12 2021-04-12 Outpatient R CHARLEEN [facility] [id number] NPI:183 09:30:00 09:30:00 YUSUF [id number] 1 2021-04-12 2021-04-12 Nurse 1, Adc Infusion Nurse [facility] 1.2. 840.114 [id number] NPI:183 09:09:47 09:24:47 Visit Yusuf Gibbons 350.1.13.10 [id number] [place] 4.2.7.2.686 Surgical [id number] [place] 053 2021-04-06 2021-04-06 [facility] [id number] NPI:183 10:00:00 10:00:00 YUSUF [id number] 1 2021-04-06 2021-04-06 Outpatient R CHARLEEN [facility] [id number] NPI:183 10:00:00 10:00:00 YUSUF [id number] 1 2021-03-30 2021-03-30 Office Yusuf Gibbons [facility] 1.2.840. 114 [id number] NPI:183 11:03:18 12:12:59 Visit Halima Meaghan Reeder 350.1.13.10 [id number] [place] 4.2.7.2.686 Professio [id number] [facility] 2021-03-30 2021-03-30 [facility] [id number] -[id number] NPI:183 11:00:00 11:00:00 MEAGHAN [id number] 1 2021-03-30 2021-03-30 [facility] [id number] NPI:183 11:00:00 11:00:00 MEAGHAN [id number] 1 2021-01-02 2021-01-02 Orders Doctor DEIRDRE 1.2.840.114 [id number] NPI:183 00:00:00 00:00:00 Only Unassigned, VELVET 350.1.13.10 [id number] [facility] 4.2.7.2.686 [id number] 2020-12-19 2020-12-19 Telephone Charleen [facility] 1.2.840.114 [id number] NPI:183 00:00:00 00:00:00 Yusuf Reeder 350.1.13.10 1 [id number] [place] 4.2.7.2.686 Professio [id number] [address] 2020-12-08 2020-12-08 Orders Doctor GILMORE 1.2.840.114 [id number] NPI:183 00:00:00 00:00:00 Only UnassignedVELVET 350.1.13.10 [id number] [place] [address].2.7.2.686 [id number] 009 2020-12-07 2020-12-07 Surgery [facility] 1.2.203.149 [id number] NPI:183 09:00:00 11:18:00 Riki Reeder 350.1.13.10 1 [id number] [place] 4.2.7.2.686 Surgical [id number] [place] [address] 2020-12-07 2020-12-07 [facility] 1.2.840.114 [id number] NPI:183 07:58:00 10:51:00 Encounter Riki Reeder 350.1.13.10 [id number] [place] 4.2.7.2.686 [facility] [id number] [place] 071 2020-12-07 2020-12-07 Orders Doctor GILMORE 1.2.840.114 [id number] NPI:183 00:00:00 00:00:00 Only Unassigned, VELVET 350.1.13.10 [id number] [facility] 4.2.7.2.686 [id number] [id number] 2020-12-06 2020-12-06 Laboratory Only, [facility] Test [facility] 1.2.840. 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, [facility] Lab Main [facility] 1.2.8 40.114 [id number] NPI:183 08:49:30 09:04:30 Visit Riki Reyez 350.1.13.10 [id number] Yarelis 4.2.7.2.686 [facility] [phone] [address] 2020-12-06 2020-12-06 [facility] 1.2.840.114 [id number] NPI:183 08:45:00 08:46:00 Encounter Riki Reeder 350.1.13.10 [id number] Yarelis 4.2.7.2.686 [place] [id number] [id number] 2020-12-06 2020-12-06 Outpatient R [facility] [id number] -[id number] NPI:183 08:15:00 08:15:00 [id number] 1 2020-12-06 2020-12-06 [facility] [id number] NPI:183 08:15:00 08:15:00 RIKI 360368 1 2020-12-06 2020-12-06 Orders Doctor DEIRDRE 1.2.840.114 [id number] NPI:183 00:00:00 00:00:00 Only Unassigned, VELVET 350.1.13.10 [id number] [place] [address].2.7.2.686 [phone] 009 2020-11-06 2020-11-06 Outpatient Jeovany HOLMAN [facility] [id number] 7N-20 NPI:183 15:30:00 15:30:00 AIYANA [id number] 1 2020-11-06 2020-11-06 Outpatient R RIVER [facility] [id number] NPI:183 15:30:00 15:30:00 AIYANA [id number] 1 2020-10-16 2020-10-16 Outpatient Jeovany HOLMAN [facility] 40546 7N-20 NPI:183 16:10:00 16:10:00 AIYANA [id number] 1 2020-10-16 2020-10-16 Outpatient R RIVER [facility] [id number] NPI:183 16:10:00 16:10:00 AIYANA [id number] 1 2020-10-06 2020-10-06 [facility] 1.2.840.114 [id number] NPI:183 08:54:38 23:59:00 Beny Reeder 350.1.13.10 [id number] Pinch 4.2.7.2.686 [place] [phone] [id number] 2020-10-06 2020-10-06 Outpatient R DEREJE [facility] [id number] NPI:183 08:45:00 08:45:00 RIKI [id number] 1 2020-10-06 2020-10-06 Laboratory Only, Adc Test [facility] 1.2.840. 114 [id number] NPI:183 08:28:29 08:43:29 Only Riki Reyez 350.1.13.10 [id number] Pinch 4.2.7.2.686 [place] [id number] 353 2020-10-06 2020-10-06 Outpatient R [facility] [id number] -20 NPI:183 08:30:00 08:30:00 [id number] 1 2020-09-17 2020-09-17 Patient [facility] 1.2.840.114 [id number] NPI:183 00:00:00 00:00:00 Outreach Nathanael [facility] 350.1.13.10 1 [id number] Mehran [facility] 4.2.7.2.686 [place] [id number] [id number] 2020-08-30 2020-08-30 Ambulatory nullFlavo [facility] 35 [id number] Memoria 15:00:00 15:00:00 Pre-Reg r Specialty 04 l [facility] 2020-08-23 2020-08-24 Outpatient nullFlavo [facility] 35 [id number] Memoria 15:00:00 05:59:59 r Specialty 05 l [facility] 2020-06-14 2020-06-15 Outpatient nullFlavo [facility] 35 [id number] Memoria 16:00:00 04:59:59 r Specialty 03 l [facility] 2020-04-11 2020-04-11 [facility] 1.2.840 .114 [id number] 09:20:00 23:59:00 Encounter Radiology [place] 350.1.13.10 Pinch 4.2.7.2.686 [place] [phone] 800 2020-04-11 2020-04-11 [facility] 1.2.840 .114 [id number] NPI:183 09:20:00 23:59:00 Encounter Radiology [place] 350.1.13.10 [id number] Pinch 4.2.7.2.686 [place] [phone] 800 2020-04-11 2020-04-11 [facility] 1.2.840.114 [id number] 09:00:00 09:19:00 Encounter Yusuf H [place] 350.1.13.10 Pinch 4.2.7.2.686 [place] [id number] 800 2020-04-11 2020-04-11 [facility] 1.2.840.114 [id number] NPI:183 09:00:00 09:19:00 Encounter Yusuf H [place] 350.1.13.10 [id number] Pinch 4.2.7.2.686 [place] [id number] 800 2020-04-11 2020-04-11 Outpatient R CHARLEEN [facility] [id number] 7N-20 NPI:183 09:00:00 09:00:00 YUSUF [id number] 1 2020-04-11 2020-04-11 Outpatient R CHARLEEN [facility] [id number] 43954 NPI:183 00:00:00 00:00:00 YUSUF [id number] 1 2020-04-11 2020-04-11 Orders Doctor GILMORE 1.2.840.114 [id number] 00:00:00 00:00:00 Only Unassigned, VELVET 350.1.13.[address]686 [id number] 009 2020-04-11 2020-04-11 Orders Doctor GILMORE 1.2.840.114 [id number] NPI:183 00:00:00 00:00:00 Only Unassigned, VELVET 350.1.13.10 [id number] [place] [facility] 4.2.7.2.686 [id number] 009 2020-03-31 2020-03-31 [facility] 1.2.445.833 [id number] 2593 11:28:01 12:47:12 Visit Yusuf Reeder 350.1.13.10 [place] 4.2.7.2.686 [facility] [phone] [facility] 220 [facility] 2020-03-31 2020-03-31 [facility] 1.2.827.451 [id number] 2593 NPI:183 11:28:01 12:47:12 Visit Yusuf Reeder 350.1.13.10 1 [id number] [place] 4.2.7.2.686 [place] [phone] [facility] Building 2020-03-31 2020-03-31 [facility] 15155 7N-20 NPI:183 11:30:00 11:30:00 YUSUF [id number] 1 2020-03-31 2020-03-31 [facility] [id number] 91263 NPI:183 11:30:00 11:30:00 YUSUF [id number] 1 2019-10-15 2019-10-15 Office [facility] 1.2.236.095 [id number] 2011 NPI:183 11:31:15 12:29:05 Visit Yusuf [place] 350.1.13.10 1 [id number] P[place] 4.2.7.2.686 [facility] [phone] [facility] Building 2019-10-15 2019-10-[address] [facility] [id number] 66326 NPI:183 11:30:00 12:29:05 YUSUF [id number] 1 2019-06-02 2019-06-02 [facility] [id number] Memoria 10:35:00 18:05:00 Outpatient r Rowley 04 l [facility] 2019-06-02 2019-06-02 Outpatient [facility] CAR 7504 [facility] 05:35:00 05:35:00 2019-05-19 2019-05-20 Outpt Diag nullFlavo [facility] [id number] Memoria 18:18:00 04:59:00 Services r Outpatient 05 l [facility] Galen Carlson 2019-05-05 2019-05-06 Outpatient nullFlavo [facility] 638 [id number] Memoria 19:40:00 04:59:00 r Disease 03 l [facility] 2019-05-05 2019-05-05 Outpatient [facility] 7503 [facility] 14:40:00 14:40:00 2019-04-14 2019-04-14 [facility] 1.2.840.114 [id number] NPI:183 11:00:22 23:59:00 Encounter Yusuf H Lilli 350.1.13.10 [id number] [place] 4.2.7.2.686 [place] [phone] 800 2019-04-09 2019-04-09 Office [facility] 1.2.071.979 [id number] 3665 NPI:183 08:26:57 10:14:43 Visit Yusuf [place] 350.1.13.10 1 [id number] [place] 4.2.7.2.686 [facility] [phone] [facility] 220 [facility] 2019-04-09 2019-04-09 Orders Doctor GILMORE 1.2.840.114 [id number] NPI:183 00:00:00 00:00:00 Only Unassigned, VELVET 350.1.13.10 [id number] [place] [facility] 4.2.7.2.686 [id number] [id number] 2016-10-28 2016-10-29 Bedded [facility] [id number] Memoria 18:02:00 15:07:00 Outpatient r Rowley 02 l [facility] 2016-04-22 2016-04-27 [id number] Memoria 00:43:00 01:07:00 [facility] 41 l [facility] 2015-03-02 2015-03-03 Outpt Diag nullFlavo [facility] [id number] Memoria 17:37:00 04:59:00 Services r Outpatient 00 l [facility] 2015-03-02 2015-03-02 [facility] [id number] Memoria 13:30:00 13:30:00 00 [facility] 2014-03-03 2014-03-04 Outpt Diag nullFlavo [facility] [id number] Memoria 16:41:00 04:59:00 Services r Outpatient 03 l [facility] Results Test Description Test Time Test Comments Results Result Comments Source SURGICAL 2021-09-21 11:13:00 Test Item Value Reference Range Interpretation Jennifer dennis SURGICAL RUN DATE: (test 09/21/21 [facility] - LAB PAGE 1 RUN TIME: 1113 code = Specimen Inquiry RUN USER: INTERFACE SR) PATIENT: JASON GOYAL LOC: P.5N POD B U #: [id number] AGE/SX: 86/ F ROOM: [facility] RE09/18/21REG DR: Iván Cowan MD : 35 BED: 1 DIS: STATUS: ADM IN TLOC: SPEC #: [id number] RECD: -[id number] STATUS: SOUCarl REQ #: [id number] BALDO: 09/18/21-[address] [facility] [address]: Iván Cowan MD ENTERED: 09/18/21-1330 SP TYPE: SURGICAL OTHR DR: Sam Nur MD ORDERED: [id number], 98248/2, ANATOMIC SPEC HISTOLOGY: TISSUE ID BLK PCS MARIBEL LEV / PROCEDURE DISPOSITION ____ ___ ___ ___ ___ SMINNT A 2 1 COLSR B 14 1 SOFTISD EB C 1 1 TISSUES: A. SMALL INTESTINE RESECTION NO T TUMOR - Small Bowel Dupliaction Cyst B. COLON SEGMENTAL RESECTION NOT TUMOR - Rectosigmoid Col on C. SOFT TISSUE NOT TUMOR / MASS / LIPOMA / DEBRIDEMENT - Foreign Body on the Rect um FINAL DIAGNOSIS A. 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 B. COLON, RECTOSIGMOID , EXCISION:- Diverticulosis with mural fibrosis and luminal narrowing, consistent with stricture. - Serosal adhesions. - 6 benign lymph nodes. - Resection margins are unremarkable. C. SOFT TISSU E, "FOREIGN BODY ON RECTUM," EXCISION:- Fibroadipose tissue with fibrosis and suture material with a f oreign body giant cell reaction. GROSS DESCRIPTION A. Received in formalin, labeled with deysi nt's name, medical record number and "smallbowel duplication cyst". It consists of a cystic/dilated portion of small bowel thatmeasures 4.1 x 4.0 x 2.3 cm and has a 3.5 cm staple line. The serosal ward rface is smoothglistening zimmerman. The specimen is opened to reveal green-yellow fecal material. Turret Lathe Operator sections are submitted in cassettes A1 and A2 as follows: A1 - margin; A2 -service liaison representative sections of dilated bowel- full thickness. The specimen also demonstratesthinning of the small bowel wall to a thickness of 0.1 cm. In these areas the mucosalfolds are slightly flattened. No masses, lesions are identified. B. Received in formalin, labeled with patient's name, medical yolis rd number and"rectosigmoid colon". It consists of a 20.4 cm length of rectum-colon and attached so fttissue. The rectal portion measures approximately 5.0 cm in length. The specimen has an CONT INUED ON NEXT PAGE RUN DATE: 09/21/21 [facility] - LAB PAGE 2 RUN TIME: 1113 Specimen Inquiry RUN USER: INTERFACE SPEC #: [id number] PATIENT: JASON GOYAL #[id number] (Continued) GROSS DESCRIPTION (Continued) average circumference ranging from 5.5 to 3.0 cm. The serosal surface of the speci men issmooth glistening with 2 areas of white fibrosis. An area of serosal disruption and 2 areasof ser osal fibrosis are inked blue, with the most proximal serosal fibrosis present 3.1 cmfrom the proxi mal margin. The most distal is 4.9 cm from the distal margin. The specimenis opened to reveal normal rugal folds and multiple diverticula and an area of luminalnarrowing at the proximal most blue in k. This area also corresponds to, a focal area ofmucosal fibrosis is present 3.1 cm from the lou in and measures 0.2 x 0.2 x 0.1 cm. Noother definitive mucosal lesions are identified. Two unremarkabl e colorectal donuts arealso received. Turret Lathe Operator sections are submitted as follows: B1 - proximal ma rgin; B2-distal margin; B3 - service liaison representative section of mesenteric margin and radial margin; B4 to B6- pro ximal serosal scar with diverticula; B7 - service liaison representative sections at middle area ofserosal fibrosis; B8 - service liaison representative sections at distal mural disruption; B9 and B10 -candidate lymph nodes; B11 - represent ative section from non-designated donuts; B12 to B14- additional soft tissue with possible lymph nodes. C . Received in formalin, labeled with patient's name, medical record number and "foreignbody rectum". I t consists of a 3.0 x 1.5 x 0.9 cm portion of fibroadipose with embeddedstitches. Represent ative sections are submitted in cassette C. ASHLEY/araceli Technical component performed at [facility] [facility], [facility], [address] MICROSCOPIC DESCRIPTION NEGATIVE FOR MAL IGNANCY. PERFORMED AND INCORPORATED INTO THE FINAL DIAGNOSIS. CLINICAL INFORMATION Diverticular stricture (per op note) Signed SIGNATURE ON FILE Steve Shell 09/21/21 1113 END OF REPORT BASIC METABOLIC [id number] 08:32:00 Test Item Value Reference Range Interpretation Comments SODIUM (test code 140 mmol/L 136-145 N Please not e: New = NA) Reference Range Sep 2020 POTASSIUM (test 3.4 mmol/L 3.5-5.1 L code = K) CHLORIDE (test 107 mmol/L 98-107 N Please note: New code = CL) Reference Range Sep 2020 CARBON DIOXIDE 25 mmol/L 20-31 N Please note: New (test code = CO2) Reference Range Sep 2020 GLUCOSE (test code 95 mg/dL 74-106 N Please no te: New = GLU) Reference Range Sep 2020 BLOOD UREA 13 mg/dL 9-23 N Please note: Ne w NITROGEN (test Reference Ran ge Feb code = BUN) 2020 GLOMERULAR >=60 max >60 Units are FILTRATION RATE estimate mL/min mL/min/1. 73m2 The (test code = GFR) estimated glomerular filtration rate is computed usingpatient ra ce, age (>18), sex, and serum creatinin e. If anyof the neede d data elements a re missing the Laboratory hammad ot compute an estimation of t he glomerular filtration rate . CREATININE (test 0.50 mg/dL 0.55-1.02 L Please note : New code = CREAT) Reference Rang e Sep 2020 CALCIUM (test code 8.0 mg/dL 8.7-10.4 L Please no te: New = CA) Reference Range Sep 2020 [id number] 08:32:00 Test Item Value Reference Range Interpretation Comments MAGNESIUM (test code = 1.3 mg/dL 1.6-2.6 L Pleas e note: New MAG) Reference Range Sep 2020 CBC W/AUTO [id number] 08:16:00 Test Item Value Reference Range Interpretation Comments WHITE BLOOD CELL (test code = 8.4 x10 3/uL 4.8-10.8 N WBC) RED BLOOD CELL (test code = 3.17 x10 6/uL 4.20-5.40 L RBC) HEMOGLOBIN (test code = HGB) 9.5 g/dL 12.0-16.0 L HEMATOCRIT (test code = HCT) 29.6 % 37.0-47.0 L MEAN CELL VOLUME (test code = 93.4 fL 81.0-99.0 N MCV) MEAN CELL HGB (test code = MCH) 30.0 pg 27-31 N MEAN CELL HGB CONCENTRATION 32.1 G/DL 33-36.5 L (test code = MCHC) RED CELL DISTRIBUTION WIDTH 12.9 % 12.9-16.9 N (test code = RDW) PLATELET COUNT (test code = 220 x10 3/uL 150-440 N PLT) MEAN PLATELET VOLUME (test code 9.6 fL 8.9-12.4 N = MPV) NEUTROPHIL % (test code = NT%) 75.9 % 42.2-75.2 H LYMPHOCYTE % (test code = LY%) 14.1 % 20.5-51.1 L MONOCYTE % (test code = MO%) 5.7 % 1.7-9.3 N EOSINOPHIL % (test code = EO%) 3.7 % 0.0-7.0 N BASOPHIL % (test code = BA%) 0.2 % 0-2.5 N NEUTROPHIL # (test code = NT#) 6.35 x10 3/uL 1.80-7.70 N LYMPHOCYTE # (test code = LY#) 1.18 x10 3/uL 1.00-4.80 N MONOCYTE # (test code = MO#) 0.48 x10 3/uL 0.00-0.80 N EOSINOPHIL # (test code = EO#) 0.31 x10 3/uL 0.00-0.45 N BASOPHIL # (test code = BA#) 0.02 x10 3/uL 0.0-0.20 N RECOLLECTCBC W/MANUAL [id number] 05:55:00 Test Item Value Reference Range Interpretation Comments WHITE BLOOD CELL (test code = 11.2 x10 3/uL 4.8-10.8 H WBC) RED BLOOD CELL (test code = 4.20 x10 6/uL 4.20-5.40 N RBC) HEMOGLOBIN (test code = HGB) 12.4 g/dL 12.0-16.0 N HEMATOCRIT (test code = HCT) 38.5 % 37.0-47.0 N MEAN CELL VOLUME (test code = 91.7 fL 81.0-99.0 N MCV) MEAN CELL HGB (test code = MCH) 29.5 pg 27-31 N MEAN CELL HGB CONCENTRATION 32.2 G/DL 33-36.5 L (test code = MCHC) RED CELL DISTRIBUTION WIDTH 12.8 % 12.9-16.9 L (test code = RDW) PLATELET COUNT (test code = 266 x10 3/uL 150-440 N PLT) MEAN PLATELET VOLUME (test code 9.5 fL 8.9-12.4 N = MPV) NEUTROPHIL % (test code = NT%) 78.8 % 42.2-75.2 H LYMPHOCYTE % (test code = LY%) 16.2 % 20.5-51.1 L MONOCYTE % (test code = MO%) 4.2 % 1.7-9.3 N EOSINOPHIL % (test code = EO%) 0.2 % 0.0-7.0 N BASOPHIL % (test code = BA%) 0.2 % 0-2.5 N NEUTROPHIL # (test code = NT#) 8.84 x10 3/uL 1.80-7.70 H LYMPHOCYTE # (test code = LY#) 1.81 x10 3/uL 1.00-4.80 N MONOCYTE # (test code = MO#) 0.47 x10 3/uL 0.00-0.80 N EOSINOPHIL # (test code = EO#) 0.02 x10 3/uL 0.00-0.45 N BASOPHIL # (test code = BA#) 0.02 x10 3/uL 0.0-0.20 N TOTAL CELLS COUNTED (test code 100 #CELLS = TCC) SEGMENTED NEUTROPHILS (test 79 % 49-71 H code = SEG) LYMPHOCYTE (test code = LYMPH) 16 % 20-40 L MONOCYTE (test code = MON) 5 % 3-8 N PLATELET ESTIMATE (test code = ADEQUATE ADEQUATE PLTEST) PLATELET MORPHOLOGY (test code NORMAL NORMAL = PLTMORPH) BASIC METABOLIC [id number] 05:04:00 Test Item Value Reference Range Interpretation Comments SODIUM (test code 140 mmol/L 136-145 N Please not e: New = NA) Reference Range Sep 2020 POTASSIUM (test 3.8 mmol/L 3.5-5.1 N code = K) CHLORIDE (test 105 mmol/L 98-107 N Please note: New code = CL) Reference Range Sep 2020 CARBON DIOXIDE 26 mmol/L 20-31 N Please note: New (test code = CO2) Reference Range Sep 2020 GLUCOSE (test code 100 mg/dL 74-106 N Please no te: New = GLU) Reference Range Sep 2020 BLOOD UREA 17 mg/dL 9-23 N Please note: Ne w NITROGEN (test Reference Ran ge Feb code = BUN) 2020 GLOMERULAR >=60 max >60 Units are FILTRATION RATE estimate mL/min mL/min/1. 73m2 The (test code = GFR) estimated glomerular filtration rate is computed usingpatient ra ce, age (>18), sex, and serum creatinin e. If anyof the neede d data elements a re missing the Laboratory hammad ot compute an estimation of t he glomerular filtration rate . CREATININE (test 0.80 mg/dL 0.55-1.02 N Please note : New code = CREAT) Reference Rang e Sep 2020 CALCIUM (test code 8.9 mg/dL 8.7-10.4 N Please no te: New = CA) Reference Range Sep 2020 [id number] 05:04:00 Test Item Value Reference Range Interpretation Comments MAGNESIUM (test code = 2.0 mg/dL 1.6-2.6 N Pleas e note: New MAG) Reference Range Sep 2020 CBC W/AUTO [id number] 04:41:00 Test Item Value Reference Range Interpretation Comments WHITE BLOOD CELL (test code = 9.8 x10 3/uL 4.8-10.8 N WBC) RED BLOOD CELL (test code = 3.64 x10 6/uL 4.20-5.40 L RBC) HEMOGLOBIN (test code = HGB) 11.0 g/dL 12.0-16.0 L HEMATOCRIT (test code = HCT) 33.5 % 37.0-47.0 L MEAN CELL VOLUME (test code = 92.0 fL 81.0-99.0 N MCV) MEAN CELL HGB (test code = MCH) 30.2 pg 27-31 N MEAN CELL HGB CONCENTRATION 32.8 G/DL 33-36.5 L (test code = MCHC) RED CELL DISTRIBUTION WIDTH 12.5 % 12.9-16.9 L (test code = RDW) PLATELET COUNT (test code = 242 x10 3/uL 150-440 N PLT) MEAN PLATELET VOLUME (test code 9.8 fL 8.9-12.4 N = MPV) NEUTROPHIL % (test code = NT%) 82.8 % 42.2-75.2 H LYMPHOCYTE % (test code = LY%) 11.0 % 20.5-51.1 L MONOCYTE % (test code = MO%) 5.8 % 1.7-9.3 N EOSINOPHIL % (test code = EO%) 0.0 % 0.0-7.0 N BASOPHIL % (test code = BA%) 0.1 % 0-2.5 N NEUTROPHIL # (test code = NT#) 8.09 x10 3/uL 1.80-7.70 H LYMPHOCYTE # (test code = LY#) 1.08 x10 3/uL 1.00-4.80 N MONOCYTE # (test code = MO#) 0.57 x10 3/uL 0.00-0.80 N EOSINOPHIL # (test code = EO#) 0.00 x10 3/uL 0.00-0.45 N BASOPHIL # (test code = BA#) 0.01 x10 3/uL 0.0-0.20 N BASIC METABOLIC [id number] 04:31:00 Test Item Value Reference Range Interpretation Comments SODIUM (test code 138 mmol/L 136-145 N Please not e: New = NA) Reference Range Sep 2020 POTASSIUM (test 4.6 mmol/L 3.5-5.1 N code = K) CHLORIDE (test 105 mmol/L 98-107 N Please note: New code = CL) Reference Range Sep 2020 CARBON DIOXIDE 25 mmol/L 20-31 N Please note: New (test code = CO2) Reference Range Sep 2020 GLUCOSE (test code 150 mg/dL 74-106 H Please no te: New = GLU) Reference Range Sep 2020 BLOOD UREA 22 mg/dL 9-23 N Please note: Ne w NITROGEN (test Reference Ran ge Feb code = BUN) 2020 GLOMERULAR >=60 max >60 Units are FILTRATION RATE estimate mL/min mL/min/1. 73m2 The (test code = GFR) estimated glomerular filtration rate is computed usingpatient ra ce, age (>18), sex, and serum creatinin e. If anyof the neede d data elements a re missing the Laboratory hammad ot compute an estimation of t he glomerular filtration rate . CREATININE (test 0.90 mg/dL 0.55-1.02 N Please note : New code = CREAT) Reference Rang e Sep 2020 CALCIUM (test code 8.7 mg/dL 8.7-10.4 N Please no te: New = CA) Reference Range Sep 2020 [id number] 04:31:00 Test Item Value Reference Range Interpretation Comments MAGNESIUM (test code = 1.5 mg/dL 1.6-2.6 L Pleas e note: New MAG) Reference Range Sep 2020 Novel Coronavirus 2018 [id number] 14:55:00 Test Item Value Reference Range Interpretation Comments Novel Coronavirus Negative Negative Positive r esults are 2019 Inhouse (test indicativ e of the presence code = COVNONPUI) ofSARS-CoV -2 RNA, clinical correlation wit h patient historyand othe r diagnostic info rmation is necessary to determinepatien t infection status. Positiv e results do not rule out bacterial infection or co -infection with other viru ses. Negative result s do not preclude SARS-C oV-2 infection andsh ould not be used as the rama e basis for patient managementdecis ions. Negative result s must be combined with otherclinical observations, p atient history, and epidemiological information . Detection of SARS-CoV-2 RNA may be affe cted bysample collec tion methods, storag e conditions, and /or stageof infection. Dominique l RNA mutations, vacc inations, antiviraltherap eutics, antibiotics, chemotherapeuti c orimmunosuppres diana drugs have not been e valuated for effectson d etection. Results are for the identification of SARS-CoV-2 RNA usingreal-time (RT) polymerase cali n reaction (PCR) technolog yfor the qualitative det ection of nucleic acids f rom [id number] v irus and diagnosis of SA RS-CoV-2 virusinfection. It is an Emergency Use Authorization ( EUA) testauthorized by the U.S. FDA. First test? UnknownEmployed in Healthcare? UnknownSymptomatic as defined by CDC? UnknownHospitalizeddue to COVID? UnknownIn ICU due to COVID? UnknownResident in a congregate care setting? Unknown? NoAge at collection: Jeremy Coronavirus 2019 [id number] 14:55:00 Test Item Value Reference Range Interpretation Comments Novel Coronavirus Negative Negative Positive r esults are 2019 Inhouse (test indicativ e of the presence code = COVNONPUI) ofSARS-CoV -2 RNA, clinical correlation wit h patient historyand othe r diagnostic info rmation is necessary to determinepatien t infection status. Positiv e results do not rule out bacterial infection or co -infection with other viru ses. Negative result s do not preclude SARS-C oV-2 infection andsh ould not be used as the rama e basis for patient managementdecis ions. Negative result s must be combined with otherclinical observations, p atient history, and epidemiological information . Detection of SARS-CoV-2 RNA may be affe cted bysample collec tion methods, storag e conditions, and /or stageof infection. Dominique l RNA mutations, vacc inations, antiviraltherap eutics, antibiotics, chemotherapeuti c orimmunosuppres diana drugs have not been e valuated for effectson d etection. Results are for the identification of SARS-CoV-2 RNA usingreal-time (RT) polymerase cali n reaction (PCR) technolog yfor the qualitative det ection of nucleic acids f rom [id number]-[id number]-1 v irus and diagnosis of SA RS-CoV-2 virusinfection. It is an Emergency Use Authorization ( EUA) testauthorized by the U.S. FDA. First test? UnknownEmployed in Healthcare? UnknownSymptomatic as defined by CDC? UnknownHospitalizeddue to COVID? UnknownIn ICU due to COVID? UnknownResident in a congregate care setting? Unknown? NoAge at collection: YBASIC METABOLIC [id number] 11:15:00 Test Item Value Reference Range Interpretation Comments SODIUM (test code 140 mmol/L 136-145 N Please not e: New = NA) Reference Range Sep 2020 POTASSIUM (test 4.1 mmol/L 3.5-5.1 N code = K) CHLORIDE (test 105 mmol/L 98-107 N Please note: New code = CL) Reference Range Sep 2020 CARBON DIOXIDE 29 mmol/L 20-31 N Please note: New (test code = CO2) Reference Range Sep 2020 GLUCOSE (test code 106 mg/dL 74-106 N Please no te: New = GLU) Reference Range Sep 2020 BLOOD UREA 19 mg/dL 9-23 N Please note: Ne w NITROGEN (test Reference Ran ge Feb code = BUN) 2020 GLOMERULAR >=60 max >60 Units are FILTRATION RATE estimate mL/min mL/min/1. 73m2 The (test code = GFR) estimated glomerular filtration rate is computed usingpatient ra ce, age (>18), sex, and serum creatinin e. If anyof the neede d data elements a re missing the Laboratory hammad ot compute an estimation of t he glomerular filtration rate . CREATININE (test 0.80 mg/dL 0.55-1.02 N Please note : New code = CREAT) Reference Rang e Sep 2020 CALCIUM (test code 9.6 mg/dL 8.7-10.4 N Please no te: New = CA) Reference Range Sep 2020 CBC W/AUTO [id number] 10:57:00 Test Item Value Reference Range Interpretation Comments WHITE BLOOD CELL (test code = 6.8 x10 3/uL 4.8-10.8 N WBC) RED BLOOD CELL (test code = 4.54 x10 6/uL 4.20-5.40 N RBC) HEMOGLOBIN (test code = HGB) 13.4 g/dL 12.0-16.0 N HEMATOCRIT (test code = HCT) 42.4 % 37.0-47.0 N MEAN CELL VOLUME (test code = 93.4 fL 81.0-99.0 N MCV) MEAN CELL HGB (test code = MCH) 29.5 pg 27-31 N MEAN CELL HGB CONCENTRATION 31.6 G/DL 33-36.5 L (test code = MCHC) RED CELL DISTRIBUTION WIDTH 12.7 % 12.9-16.9 L (test code = RDW) PLATELET COUNT (test code = 297 x10 3/uL 150-440 N PLT) MEAN PLATELET VOLUME (test code 9.1 fL 8.9-12.4 N = MPV) NEUTROPHIL % (test code = NT%) 62.3 % 42.2-75.2 N LYMPHOCYTE % (test code = LY%) 25.0 % 20.5-51.1 N MONOCYTE % (test code = MO%) 8.6 % 1.7-9.3 N EOSINOPHIL % (test code = EO%) 3.1 % 0.0-7.0 N BASOPHIL % (test code = BA%) 0.7 % 0-2.5 N NEUTROPHIL # (test code = NT#) 4.22 x10 3/uL 1.80-7.70 N LYMPHOCYTE # (test code = LY#) 1.69 x10 3/uL 1.00-4.80 N MONOCYTE # (test code = MO#) 0.58 x10 3/uL 0.00-0.80 N EOSINOPHIL # (test code = EO#) 0.21 x10 3/uL 0.00-0.45 N BASOPHIL # (test code = BA#) 0.05 x10 3/uL 0.0-0.20 N XR CHEST 2 [id number] 14:14:50HISTORY: Preop. TECHNIQUE: PA and lateral views of the chest are obtained. Comparison ismade with 10/06/2020 study. FINDINGS: Abnormal findings are seen in the lower lungs, slightly more inthe left lower lung, consistent with chronic pulmonary fibrosis with mildelevation left hemidiaphragm. Old fracture deformity noted in themidaxillary segment of left fifth rib and posterior segment of left seventhrib has been partially resected probably for remote history of thoracicsurgery. No acute pneumonia detected. No pneumothorax or pleural effusion orpulmonary congestion. Cardiothoracic ratio of approximately 10.5/22.1 cm isconsistent with normal cardiac size. Mild thoracic kyphosis is noted withminimal remote fracture deformity suspected in T4 and T5 vertebral bodies.No aggressive bone lesions. CONCLUSIONS: No signs of acute cardiopulmonary disease.[facility], Radiant Results Inft User - 12/06/2020 9:15 AM CD THISTORY: Preop.TECHNIQUE: PA and lateral views of the chest are obtained. Comparison ismade with 10/06/2020 study.FINDINGS: Abnormal findings are seen in the lower lungs, slightly more inthe left lowerlung, consistent with chronic pulmonary fibrosis with mildelevation left hemidiaphragm. Old fracturedeformity noted in themidaxillary segment of left fifth rib and posterior segment of left seventhribhas been partially resected probably for remote history of thoracicsurgery.No acute pneumonia detected. No pneumothorax or pleural effusion orpulmonary congestion. Cardiothoracic ratio of fvqjskmustjlc26.5/22.1 cm isconsistent with normal cardiac size. Mild thoracic kyphosis is noted withminimal remote fracture deformity suspected in T4 and T5 vertebral bodies.No aggressive bone lesions.CONCLUSIONS:No signs of acute cardiopulmonary disease. NPI:[id number] CHEST 2 [id number] 15:35:52EXAM: XR CHEST 2 VW HISTORY: Hemorrhage of rectum and anus Disease of rectum COMPARISON: None. FINDINGS: The heart and great vessels are normal except for calcium in the arch ofthe aorta. Small pleural effusions blunt the costophrenic angles but thelungs are otherwise satisfactorily expanded and clear except for minorbasilar subsegmental atelectasis on the left. A hiatal hernia lies behindthe heart. ? [facility], Radiant Results Inft User - 10/06/2020 9:37 AM CSTEXAM: XR CHEST 2 VWHISTORY: Hemorrhage of rectum and anus Disease of rectum COMPARISON: None.FINDINGS:The heart and great vessels are normal except for calcium in the arch ofthe aorta. Small pleural effusions blunt the costophrenic anglesbut thelungs are otherwise satisfactorily expanded and clear except for minorbasilar subsegmental ate lectasis on the left. A hiatal hernia lies behindthe heart. REFERENCE LAB [id number] 15:25:00 Test Item Value Reference Range Interpretation Comments Result 2 (Urine Culture) See Result Comment (test code = Result 2 (Urine Culture)) [facility]angelaNOV[facility] CENTERBrandyn PERIPHERAL (FOREARM)2020-04-11 15:19:04HISTORY: Osteoporosis. TECHNIQUE: Bone density estimation is done using DEXA scan, over the distalleft forearm. FINDINGS: Details of the results are enclosed for your review. The summaryis as follows. Estimated BMD value over distal third of the radius was 0.677 g/sq cm withT score of -3.0. Estimated BMD value over distal third of ulna was 0.483g/sq cm. CONCLUSION: Moderate osteoporosis in distal thir d of the left radius and ulna. [facility], Radiant Results Inft User - 04/11/2020 10:20 AM CDTHISTORY: Osteoporosis.TECHNIQUE: Bone density estimation is done using DEXA scan, over the distalleft forearm.FINDINGS: Details of the results are enclosed for your review. The summaryis as follows.Estimated BMDvalue over distal third of the radius was 0.677 g/sq cm withT score of -3.0. Estimated BMD value over distal third of ulna was 0.483g/sq cm.CONCLUSION: Moderate osteoporosis in distal third of the leftradius and ulna.NPI:[id number] AXIAL (HIP AND SPINE)2020-04-11 15:17:51HISTORY: History of osteoporosis. TECHNIQUE: Bone density estimation is done using DEXA scan over the lumbarspines. FINDINGS: Details of the results are enclosed for your review. The summaryis as follows. LUMBAR SPINES:Average BMD value from L1 through L4 is 1.063 gm/sq cm, with T- score -1.1.Minimal further loss of the estimated bone mineral density values notedwhen compared with March 2019 study. CONCLUSION: Very mild osteopenia in lumbar spines. ASSESSMENT: WHO-definitions: T-score normal: +/- 1 SD around the meanosteopenia: >1 to 2.4 SD below the meanosteoporosis: >2.5 SD below the meanFracture risk doubles for each 1.5 SD below the mean. [facility], Radiant Results Inft User - 04/11/2020 10:19 AM CDTHISTORY: History of osteoporosis.TECHNIQUE: Bone density estimation is done using DEXA scan over the lumbarspines.FINDINGS: Details of the results are enclosed for your review. The summaryis as follows.LUMBAR SPINES:Average BMD value from L1 through L4 is 1.063 gm/sq cm, with T-score -1.1.Minimal further loss of the estimated bone mineral density values notedwhen compared with March 2019 study.CONCLUSION: Very mild osteopenia in lumbar spines.ASSESSMENT: WHO-definitions: T- scorenormal: +/- 1 SD around the meanosteopenia: >1 to 2.4 SD below the meanosteoporosis: >2.5 SD below the meanFracture risk doubles for each 1.5 SD below the mean.NPI:[id number] 14:36:00 Test Item Value Reference Range Interpretation Comments POC Activated Clotting Time (test code 186 s = POC Activated Clotting Time) [facility] [id number] 10:47:00 Test Item Value Reference Range Interpretation Comments ABO/Rh (test code = ABO/Rh) O POS [facility] [id number] 10:47:00 Test Item Value Reference Range Interpretation Comments Antibody Scrn (test Positive (06/02/19 5:47 code = Antibody Scrn) AM) [facility] [id number] 10:47:00 Test Item Value Reference Range Interpretation Comments AB Int (test code = Non-specific IgG AB Int) Antibody [facility] [id number] 10:47:00 Test Item Value Reference Range Interpretation Comments PAUL Gel Int (test Positive (06/02/19 5:47 code = PAUL Gel Int) AM) [facility] [id number] 10:47:00 Test Item Value Reference Range Interpretation Comments C3 Int (test code = Negative (06/02/19 5:47 C3 Int) AM) [facility] [id number] 10:47:00 Test Item Value Reference Range Interpretation Comments Eluate Int (test code = Eluate Int) See Note [facility] [id number] 10:47:00 Test Item Value Reference Range Interpretation Comments Glucose Lvl (test code = Glucose Lvl) 102 70-99 [facility]2019-10-09 10:47:00 Test Item Value Reference Range Interpretation Comments BUN (test code = BUN) 20 7-22 [facility]2019-10-09 10:47:00 Test Item Value Reference Range Interpretation Comments Creatinine Lvl (test code = Creatinine 1.00 0.50-1.40 Lvl) [facility]2019-10-09 10:47:00 Test Item Value Reference Range Interpretation Comments Sodium Lvl (test code = Sodium Lvl) 143 135-145 [facility]2019-10-09 10:47:00 Test Item Value Reference Range Interpretation Comments Potassium Lvl (test code = Potassium 3.7 3.5-5.1 Lvl) [facility]2019-10-09 10:47:00 Test Item Value Reference Range Interpretation Comments Chloride Lvl (test code = Chloride Lvl) 105 95-109 [facility]2019-10-09 10:47:00 Test Item Value Reference Range Interpretation Comments CO2 (test code = CO2) 31 24-32 [facility]2019-10-09 10:47:00 Test Item Value Reference Range Interpretation Comments Calcium Lvl (test code = Calcium Lvl) 10.0 8.5-10.5 [facility]2019-10-09 10:47:00 Test Item Value Reference Range Interpretation Comments eGFR (test code = eGFR) 52 [facility]2019-10-09 10:47:00 Test Item Value Reference Range Interpretation Comments AGAP (test code = AGAP) 10.7 10.0-20.0 [facility]2019-10-09 10:47:00 Test Item Value Reference Range Interpretation Comments Magnesium Lvl (test code = Magnesium 2.1 1.8-2.4 Lvl) [facility]2019-10-09 10:47:00 Test Item Value Reference Range Interpretation Comments Phosphorus (test code = Phosphorus) 3.4 2.5-4.5 [facility] [id number] 10:47:00 Test Item Value Reference Range Interpretation Comments WBC (test code = WBC) 6.2 3.7-10.4 [facility] [id number] 10:47:00 Test Item Value Reference Range Interpretation Comments RBC (test code = RBC) 4.17 4.20-5.40 [facility] [id number] 10:47:00 Test Item Value Reference Range Interpretation Comments Hgb (test code = Hgb) 12.5 12.0-16.0 [facility] C[id number] 10:47:00 Test Item Value Reference Range Interpretation Comments Hct (test code = Hct) 37.7 36.0-48.0 [facility] [id number] 10:47:00 Test Item Value Reference Range Interpretation Comments MCV (test code = MCV) 90.4 80.0-98.0 [facility] Cent[id number] 10:47:00 Test Item Value Reference Range Interpretation Comments MCH (test code = MCH) 30.0 pg 27.0-31.0 [facility] CenterXvfniclGOSTSFEFBC9497-65-64 10:47:00 Test Item Value Reference Range Interpretation Comments MCHC (test code = MCHC) 33.2 32.0-36.0 [facility] Cent[id number] 10:47:00 Test Item Value Reference Range Interpretation Comments RDW (test code = RDW) 13.5 11.5-14.5 [facility] C[id number] 10:47:00 Test Item Value Reference Range Interpretation Comments Platelet (test code = Platelet) 288 133-450 [facility] Cent[id number] 10:47:00 Test Item Value Reference Range Interpretation Comments MPV (test code = MPV) 7.1 7.4-10.4 [facility] CenterHcxvjeqUDWGVFJVKF2472-17-14 10:47:00 Test Item Value Reference Range Interpretation Comments PT (test code = PT) 13.0 s 12.0-14.7 [facility] CenterD[id number] 10:47:00 Test Item Value Reference Range Interpretation Comments PTT (test code = PTT) 29.2 s 22.9-35.8 [facility] CenterAasqtbpJZCCGSBJZK9648-95-16 10:47:00 Test Item Value Reference Range Interpretation Comments INR (test code = INR) 1.00 1 0.85-1.17 [facility] [id number] 10:47:00 Test Item Value Reference Range Interpretation Comments Segs (test code = Segs) 60.5 45.0-75.0 [facility] CenterNguddcoPMQEQLLRMF4562-65-81 10:47:00 Test Item Value Reference Range Interpretation Comments Lymphocytes (test code = Lymphocytes) 26.2 20.0-40.0 [facility] CenterDitqztgYUIVRSYNRA8390-09-13 10:47:00 Test Item Value Reference Range Interpretation Comments Monocytes (test code = Monocytes) 8.7 2.0-12.0 [facility] Cent[id number] 10:47:00 Test Item Value Reference Range Interpretation Comments Eosinophils (test code = 4.0 See_Comment [A utomated message] The Eosinophils) system which ge nerated this result tra nsmitted reference range : <=4.0. The reference r robbie was not used to int erpret this result as normal/abnormal . [facility] CenterJafatlhMIHSOYQUXN2592-07-92 10:47:00 Test Item Value Reference Range Interpretation Comments Basophils (test code = 0.6 See_Comment [Aut omated message] The Basophils) system which ge nerated this result tra nsmitted reference range : <=1.0. The reference r robbie was not used to int erpret this result as normal/abnormal . [facility] Cent[id number] 10:47:00 Test Item Value Reference Range Interpretation Comments Neutrophils # (test code = Neutrophils 3.7 1.5-8.1 #) [facility] Cent[id number] 10:47:00 Test Item Value Reference Range Interpretation Comments Lymphocytes # (test code = Lymphocytes 1.6 1.0-5.5 #) [facility] CenterEpxsvlaUVBSADPRJO8705-12-60 10:47:00 Test Item Value Reference Range Interpretation Comments Monocytes # (test code 0.5 See_Comment [Aut omated message] The = Monocytes #) system which generated this result tra nsmitted reference range : <=0.8. The reference r robbie was not used to int erpret this result as normal/abnormal . [facility] CenterDxrudleNNEXMFCFFU2462-34-30 10:47:00 Test Item Value Reference Range Interpretation Comments Eosinophils # (test code 0.3 See_Comment [A utomated message] The = Eosinophils #) system whic h generated this result tra nsmitted reference range : <=0.5. The reference r robbie was not used to int erpret this result as normal/abnormal . [facility] AXIAL (HIP AND SPINE)2019-04-14 16:40:40HISTORY: Osteoporosis screening study. TECHNIQUE: Bone density estimation is done using DEXA scan, over the lumbarspines. Patient is status post bilateral hip replacement. FINDINGS: Details of the results are enclosed for your review. The summaryis as follows. LUMBAR SPINES:Average BMD value from L1 through L4 is 1.091 gm/sq cm, with T-score -0.8.Mild lumbar levoscoliosis is noted. CONCLUSION: No osteoporosis detected lumbar vertebral bodies. ASSESSMENT: WHO- definitions: T-score normal: +/- 1 SD around the meanosteopenia: >1 to 2.4 SD below the meanosteoporosis: >2.5 SD below the meanFracturerisk doubles for each 1.5 SD below the mean. [facility], Radiant Results Inft User - 04/14/2019 11:42 AM CDTHISTORY: Osteoporosis screening study.TECHNIQUE: Bone density estimation is done using DEXA scan, over the lumbarspines. Patient is status post bilateral hip replacement.FINDINGS: Details of the results are enclosed for your review. The summaryis as follows.LUMBAR SPINES:Average BMD value from L1 through L4 is 1.091 gm/sq cm, with T-score -0.8.Mild lumbar levoscoliosis is noted.CONCLUSION: No osteoporosis detected lumbar vertebral bodies.ASSESSMENT: WHO-definitions: T-scorenormal: +/- 1 SD around the meanosteopenia: >1 to 2.4 SD below the meanosteoporosis: >2.5 SD below the meanFracture risk doubles for each 1.5 SD below the mean.NPI:[id number] 11:37:00 Test Item Value Reference Range Interpretation Comments eGFR (test code = eGFR) 48 [facility]2017-03-07 11:37:00 Test Item Value Reference Range Interpretation Comments Creatinine Lvl (test code = Creatinine 1.08 0.50-1.40 Lvl) [facility] Cent[id number] 11:37:00 Test Item Value Reference Range Interpretation Comments Hgb (test code = Hgb) 12.6 12.0-16.0 [facility] CenterQihtdqiGSSOFAWCZF1332-02-60 00:09:00 Test Item Value Reference Range Interpretation Comments POC Activated Clotting Time (test code 198 s = POC Activated Clotting Time) [id number] 22:02:00 Test Item Value Reference Range Interpretation Comments POC Activated Clotting Time (test code 268 s = POC Activated Clotting Time) [facility] BANK [id number] 18:25:00 Test Item Value Reference Range Interpretation Comments ABO/Rh (test code = ABO/Rh) O POS [facility] [id number] 18:25:00 Test Item Value Reference Range Interpretation Comments Antibody Scrn (test Negative (10/28/16 12:25 code = Antibody Scrn) PM) [facility]landsCHEM [id number] 18:25:00 Test Item Value Reference Range Interpretation Comments Magnesium Lvl (test code = Magnesium 1.9 1.8-2.4 Lvl) [id number] 18:25:00 Test Item Value Reference Range Interpretation Comments Potassium Lvl (test code = Potassium 4.4 3.5-5.1 Lvl) [facility] Sault[id number] 18:25:00 Test Item Value Reference Range Interpretation Comments Calcium Lvl (test code = Calcium Lvl) 9.4 8.5-10.5 [facility] SaultAffwwvqBXNICQTRFDRO0451-71-39 18:25:00 Test Item Value Reference Range Interpretation Comments CO2 (test code = CO2) 31 24-32 [facility] Sa[id number] 18:25:00 Test Item Value Reference Range Interpretation Comments Chloride Lvl (test code = Chloride Lvl) 103 95-109 [facility] Sault[id number] 18:25:00 Test Item Value Reference Range Interpretation Comments eGFR (test code = eGFR) 55 [facility] SaultUpomwbiAKGWDIQHQSVP2659-15-65 18:25:00 Test Item Value Reference Range Interpretation Comments Sodium Lvl (test code = Sodium Lvl) 141 135-145 [facility] Sault[id number] 18:25:00 Test Item Value Reference Range Interpretation Comments Creatinine Lvl (test code = Creatinine 0.97 0.50-1.40 Lvl) [facility] SaultCwkpvokAXIPQUGUVYZU0902-41-64 18:25:00 Test Item Value Reference Range Interpretation Comments BUN (test code = BUN) 24 7-22 [facility] Sault[id number] 18:25:00 Test Item Value Reference Range Interpretation Comments Glucose Lvl (test code = Glucose Lvl) 108 70-99 [facility] SaultTdjiinfHGZKCGSDZWEC8530-04-77 18:25:00 Test Item Value Reference Range Interpretation Comments AGAP (test code = AGAP) 11.4 10.0-20.0 [facility] CenterBzvhvgeCLOAOGOYIZ9890-03-25 18:25:00 Test Item Value Reference Range Interpretation Comments INR (test code = INR) 1.10 0.85-1.17 [facility] CenterXtehcvdXYWJWLNWPP0208-13-03 18:25:00 Test Item Value Reference Range Interpretation Comments PT (test code = PT) 14.4 s 12.0-14.7 [facility] CenterXqhrposYEUVLXAAQL4659-05-44 18:25:00 Test Item Value Reference Range Interpretation Comments PTT (test code = PTT) 30.3 s 22.9-35.8 [facility] C[id number] 18:25:00 Test Item Value Reference Range Interpretation Comments Hgb (test code = Hgb) 13.1 12.0-16.0 [facility] CenterTitnltxRYPXAPVYOZ7876-34-38 18:25:00 Test Item Value Reference Range Interpretation Comments RBC (test code = RBC) 4.51 4.20-5.40 [facility] CenterWghisknFMWKPBNUTM3521-50-34 18:25:00 Test Item Value Reference Range Interpretation Comments WBC (test code = WBC) 5.4 3.7-10.4 [facility] CenterZeqhuxzUMOQVSXQJH2757-57-86 18:25:00 Test Item Value Reference Range Interpretation Comments MPV (test code = MPV) 7.2 7.4-10.4 [facility] CenterTvbckdhJZAEWHTFGK8481-40-94 18:25:00 Test Item Value Reference Range Interpretation Comments MCHC (test code = MCHC) 33.0 32.0-36.0 [facility] CenterYwjybfaWAEKENCGIT6421-72-07 18:25:00 Test Item Value Reference Range Interpretation Comments RDW (test code = RDW) 14.0 11.5-14.5 [facility] CenterTwffqlcPBRUGCLRLI7067-06-91 18:25:00 Test Item Value Reference Range Interpretation Comments Platelet (test code = Platelet) 278 133-450 [facility] CenterXyzvnxmQPXJKDOUTY1695-03-92 18:25:00 Test Item Value Reference Range Interpretation Comments MCH (test code = MCH) 29.0 pg 27.0-31.0 [facility] CenterWqxsgciASUSMRQXUW2205-56-14 18:25:00 Test Item Value Reference Range Interpretation Comments MCV (test code = MCV) 87.9 80.0-98.0 [facility] CenterEomasbvYFTRJXSSXZ8898-45-77 18:25:00 Test Item Value Reference Range Interpretation Comments Hct (test code = Hct) 39.7 36.0-48.0 [facility] CenterTiixnztSZFPYKUPNB7074-58-64 18:25:00 Test Item Value Reference Range Interpretation Comments Eosinophils (test code = 2.2 See_Comment [A utomated message] The Eosinophils) system which ge nerated this result tra nsmitted reference range : <=4.0. The reference r robbie was not used to int erpret this result as normal/abnormal . [facility] CenterUthxaeeSDRTKURSFM4499-63-97 18:25:00 Test Item Value Reference Range Interpretation Comments Segs-Bands # (test code = Segs-Bands #) 2.8 1.5-8.1 [facility] CenterBblfxftPPZCPCMYPU4670-69-23 18:25:00 Test Item Value Reference Range Interpretation Comments Basophils (test code = 0.9 See_Comment [Aut omated message] The Basophils) system which ge nerated this result tra nsmitted reference range : <=1.0. The reference r robbie was not used to int erpret this result as normal/abnormal . [facility] CenterTcnkuyqMDVOVLJPZZ6065-04-71 18:25:00 Test Item Value Reference Range Interpretation Comments Lymphocytes # (test code = Lymphocytes 2.1 1.0-5.5 #) [facility] Cent[id number] 18:25:00 Test Item Value Reference Range Interpretation Comments Segs (test code = Segs) 52.3 45.0-75.0 [facility] CenterEwgywxaJQEWRKMPCK1646-40-48 18:25:00 Test Item Value Reference Range Interpretation Comments Lymphocytes (test code = Lymphocytes) 38.0 20.0-40.0 [facility] Cent[id number] 18:25:00 Test Item Value Reference Range Interpretation Comments Monocytes (test code = Monocytes) 6.6 2.0-12.0 [facility] CenterEuhxyyeJIRYGJSHCT8393-66-79 18:25:00 Test Item Value Reference Range Interpretation Comments Basophils # (test code 0.1 See_Comment [Aut omated message] The = Basophils #) system which generated this result tra nsmitted reference range : <=0.2. The reference r robbie was not used to int erpret this result as normal/abnormal . [facility] CenterJrimmvyLCOCHXOPTX6493-65-47 18:25:00 Test Item Value Reference Range Interpretation Comments Eosinophils # (test code 0.1 See_Comment [A utomated message] The = Eosinophils #) system whic h generated this result tra nsmitted reference range : <=0.5. The reference r robbie was not used to int erpret this result as normal/abnormal . [facility] CenterIuplxsyQEVRVXOVIL1341-90-31 18:25:00 Test Item Value Reference Range Interpretation Comments Monocytes # (test code 0.4 See_Comment [Aut omated message] The = Monocytes #) system which generated this result tra nsmitted reference range : <=0.8. The reference r robbie was not used to int erpret this result as normal/abnormal . [facility]landsBriteseed [id number] 08:58:00 Test Item Value Reference Range Interpretation Comments Phosphorus (test code = Phosphorus) 2.9 2.5-4.5 [facility]landsBriteseed [id number] 08:58:00 Test Item Value Reference Range Interpretation Comments Magnesium Lvl (test code = Magnesium 2.4 1.8-2.4 Lvl) [facility] SaultUrgmtzaDEAEVAZVKXWY5133-62-07 08:58:00 Test Item Value Reference Range Interpretation Comments Sodium Lvl (test code = Sodium Lvl) 139 135-145 [facility]aultOygncvfUWGXXWBMVREL8572-05-11 08:58:00 Test Item Value Reference Range Interpretation Comments Creatinine Lvl (test code = Creatinine 1.14 0.50-1.40 Lvl) [facility] SaultQelioeoJIBRDSLEZRKW7153-32-63 08:58:00 Test Item Value Reference Range Interpretation Comments Chloride Lvl (test code = Chloride Lvl) 104 95-109 [facility] SaultIgnzrqnNTBQZAAOSDSF6107-38-07 08:58:00 Test Item Value Reference Range Interpretation Comments CO2 (test code = CO2) 28 24-32 [facility] SaultEgfogxvVHHSVMVSYZSA2778-92-70 08:58:00 Test Item Value Reference Range Interpretation Comments Calcium Lvl (test code = Calcium Lvl) 8.7 8.5-10.5 [facility] SaultRtjrsrhWVYBEFCTTQJO6730-25-84 08:58:00 Test Item Value Reference Range Interpretation Comments Potassium Lvl (test code = Potassium 4.8 3.5-5.1 Lvl) [facility] SaultJckmeilQIWUWGXVXZEW7676-02-27 08:58:00 Test Item Value Reference Range Interpretation Comments AGAP (test code = AGAP) 11.8 10.0-20.0 [facility] SaultJdxfbssNWQQZYVSLGES8293-07-57 08:58:00 Test Item Value Reference Range Interpretation Comments eGFR (test code = eGFR) 45 [facility] SaultIljthzpKVEXXDZRBGZS3545-60-12 08:58:00 Test Item Value Reference Range Interpretation Comments BUN (test code = BUN) 25 7-22 [facility] SaultGazhkltYJTMXLDEEFGP1279-20-68 08:58:00 Test Item Value Reference Range Interpretation Comments Glucose Lvl (test code = Glucose Lvl) 113 70-99 [facility]JugechxNQJVKPIZWL9039-68-98 08:58:00 Test Item Value Reference Range Interpretation Comments MPV (test code = MPV) 7.8 7.4-10.4 [facility] CenterGnycdkfALOJOROYEL8001-98-72 08:58:00 Test Item Value Reference Range Interpretation Comments Platelet (test code = Platelet) 301 133-450 [facility] CenterBpcyzuvZRWKNKZZLW7220-86-41 08:58:00 Test Item Value Reference Range Interpretation Comments RDW (test code = RDW) 14.1 11.5-14.5 [facility] CenterAshhlbgEOPVQTNWST8014-19-14 08:58:00 Test Item Value Reference Range Interpretation Comments MCH (test code = MCH) 29.9 pg 27.0-31.0 [facility] CenterYjxmfkoBYUYQMWYFA1590-34-00 08:58:00 Test Item Value Reference Range Interpretation Comments MCV (test code = MCV) 89.6 80.0-98.0 [facility] CenterNkvozzgGWEJXEJECG3780-74-53 08:58:00 Test Item Value Reference Range Interpretation Comments MCHC (test code = MCHC) 33.4 32.0-36.0 [facility] CenterShlycerHNTEKYYMEJ7537-66-88 08:58:00 Test Item Value Reference Range Interpretation Comments Hct (test code = Hct) 34.3 36.0-48.0 [facility] CenterUndgxjlWTKCUMCKZX7843-24-26 08:58:00 Test Item Value Reference Range Interpretation Comments Hgb (test code = Hgb) 11.5 12.0-16.0 [facility] CenterCylihwnTTCQFGIIWS6013-22-21 08:58:00 Test Item Value Reference Range Interpretation Comments RBC (test code = RBC) 3.83 4.20-5.40 [facility] CenterWjmayijLSRVDKYHAY8701-16-47 08:58:00 Test Item Value Reference Range Interpretation Comments WBC (test code = WBC) 8.2 3.7-10.4 [facility] CenterPdwmggyJMQWFRUXIZ1589-14-62 08:58:00 Test Item Value Reference Range Interpretation Comments Lymphocytes # (test code = Lymphocytes 1.9 1.0-5.5 #) [facility] CenterHexamviEPVJORAFZT5551-32-88 08:58:00 Test Item Value Reference Range Interpretation Comments Segs-Bands # (test code = Segs-Bands #) 5.5 1.5-8.1 [facility] CenterKpofrmuYFIBIDQYKO8059-25-08 08:58:00 Test Item Value Reference Range Interpretation Comments Eosinophils (test code = 1.4 See_Comment [A utomated message] The Eosinophils) system which ge nerated this result tra nsmitted reference range : <=4.0. The reference r robbie was not used to int erpret this result as normal/abnormal . [facility] CenterPcqofwgXTZMMAMCWZ0500-35-36 08:58:00 Test Item Value Reference Range Interpretation Comments Basophils (test code = 0.5 See_Comment [Aut omated message] The Basophils) system which ge nerated this result tra nsmitted reference range : <=1.0. The reference r robbie was not used to int erpret this result as normal/abnormal . [facility] CenterJduxmszKDSLAJUPSC6283-31-86 08:58:00 Test Item Value Reference Range Interpretation Comments Monocytes (test code = Monocytes) 9.1 2.0-12.0 [facility] CenterZscfcctSFCBFETPTB3599-42-56 08:58:00 Test Item Value Reference Range Interpretation Comments Segs (test code = Segs) 66.2 45.0-75.0 [facility] CenterAfebesvSBRUAQUQVM8795-94-85 08:58:00 Test Item Value Reference Range Interpretation Comments Lymphocytes (test code = Lymphocytes) 22.8 20.0-40.0 [facility] CenterXqttvgeICEVSATZIT5513-17-98 08:58:00 Test Item Value Reference Range Interpretation Comments Eosinophils # (test code 0.1 See_Comment [A utomated message] The = Eosinophils #) system whic h generated this result tra nsmitted reference range : <=0.5. The reference r robbie was not used to int erpret this result as normal/abnormal . [facility] CenterIzuojwaQHBZHDIVXD5875-34-31 08:58:00 Test Item Value Reference Range Interpretation Comments Monocytes # (test code 0.7 See_Comment [Aut omated message] The = Monocytes #) system which generated this result tra nsmitted reference range : <=0.8. The reference r robbie was not used to int erpret this result as normal/abnormal . [facility]2016-09-01 09:58:00 Test Item Value Reference Range Interpretation Comments Phosphorus (test code = Phosphorus) 3.7 2.5-4.5 [facility]2016-09-01 09:58:00 Test Item Value Reference Range Interpretation Comments Magnesium Lvl (test code = Magnesium 2.1 1.8-2.4 Lvl) [facility]2016-09-01 09:58:00 Test Item Value Reference Range Interpretation Comments eGFR (test code = eGFR) 42 [facility]2016-09-01 09:58:00 Test Item Value Reference Range Interpretation Comments AGAP (test code = AGAP) 12.9 10.0-20.0 [facility]2016-09-01 09:58:00 Test Item Value Reference Range Interpretation Comments Chloride Lvl (test code = Chloride Lvl) 104 95-109 [facility]2016-09-01 09:58:00 Test Item Value Reference Range Interpretation Comments CO2 (test code = CO2) 25 24-32 [facility]2016-09-01 09:58:00 Test Item Value Reference Range Interpretation Comments Calcium Lvl (test code = Calcium Lvl) 8.5 8.5-10.5 [facility]2016-09-01 09:58:00 Test Item Value Reference Range Interpretation Comments Potassium Lvl (test code = Potassium 3.9 3.5-5.1 Lvl) [facility]2016-09-01 09:58:00 Test Item Value Reference Range Interpretation Comments Creatinine Lvl (test code = Creatinine 1.22 0.50-1.40 Lvl) [facility]2016-09-01 09:58:00 Test Item Value Reference Range Interpretation Comments Sodium Lvl (test code = Sodium Lvl) 138 135-145 [facility]2016-09-01 09:58:00 Test Item Value Reference Range Interpretation Comments BUN (test code = BUN) 24 7-22 [facility]2016-09-01 09:58:00 Test Item Value Reference Range Interpretation Comments Glucose Lvl (test code = Glucose Lvl) 92 70-99 [facility]2016-08-31 14:11:00 Test Item Value Reference Range Interpretation Comments Aldosterone (test code = Aldosterone) no gt [facility]OljzcjgANPZKVPWDWKJW1912-74-02 13:47:00 Test Item Value Reference Range Interpretation Comments Cortisol (test code = Cortisol) 8.6 [facility]2016-08-31 07:59:00 Test Item Value Reference Range Interpretation Comments Phosphorus (test code = Phosphorus) 3.3 2.5-4.5 [facility]2016-08-31 07:59:00 Test Item Value Reference Range Interpretation Comments Magnesium Lvl (test code = Magnesium 1.8 1.8-2.4 Lvl) [facility] SaultRiqdfhjETRJAFXJEZKK3265-09-30 07:59:00 Test Item Value Reference Range Interpretation Comments AGAP (test code = AGAP) 11.2 10.0-20.0 [facility] SaultUirwporPBFXOZVQOPAA1339-34-96 07:59:00 Test Item Value Reference Range Interpretation Comments eGFR (test code = eGFR) 49 [facility] SaultJsnwipqCYCDKHKZYZKQ1244-49-40 07:59:00 Test Item Value Reference Range Interpretation Comments Calcium Lvl (test code = Calcium Lvl) 8.4 8.5-10.5 [facility] SaultUzmtjtfIYFJSQVMGOVD5563-62-58 07:59:00 Test Item Value Reference Range Interpretation Comments Potassium Lvl (test code = Potassium 4.2 3.5-5.1 Lvl) [facility] SaultPouckaeDSYOBOYWVOIF6501-29-99 07:59:00 Test Item Value Reference Range Interpretation Comments Chloride Lvl (test code = Chloride Lvl) 105 95-109 [facility] SaultMydbkhkYWPSDTWSCZDF9558-38-58 07:59:00 Test Item Value Reference Range Interpretation Comments CO2 (test code = CO2) 28 24-32 [facility] SaultBvsrkddNDAPHPWIHANO7537-39-97 07:59:00 Test Item Value Reference Range Interpretation Comments BUN (test code = BUN) 22 7-22 [facility] SaultUbidjqvVRMARBBEVTTO6695-31-33 07:59:00 Test Item Value Reference Range Interpretation Comments Glucose Lvl (test code = Glucose Lvl) 109 70-99 [facility] SaultIxcojaqLPBSFUZZSVGP2077-95-28 07:59:00 Test Item Value Reference Range Interpretation Comments Creatinine Lvl (test code = Creatinine 1.07 0.50-1.40 Lvl) [facility] SaultCjkhmrcBVVIMTIEFTBS5468-79-27 07:59:00 Test Item Value Reference Range Interpretation Comments Sodium Lvl (test code = Sodium Lvl) 140 135-145 [facility] CenterTlrpdstDRBOJPJQAI5453-56-30 07:59:00 Test Item Value Reference Range Interpretation Comments WBC (test code = WBC) 7.3 3.7-10.4 [facility] CenterMkoempvAKXYHQKVMI0719-36-53 07:59:00 Test Item Value Reference Range Interpretation Comments MCH (test code = MCH) 29.6 pg 27.0-31.0 [facility] CenterXumiydxXPAPMLHYVD0934-38-10 07:59:00 Test Item Value Reference Range Interpretation Comments MCV (test code = MCV) 88.9 80.0-98.0 [facility] CenterVdbaxwtLMZTUVYKNE2218-19-67 07:59:00 Test Item Value Reference Range Interpretation Comments Hct (test code = Hct) 36.7 36.0-48.0 [facility] CenterJnenfjbWUTTOOHEQK8446-56-07 07:59:00 Test Item Value Reference Range Interpretation Comments Hgb (test code = Hgb) 12.2 12.0-16.0 [facility] CenterWmyfalnQFOTYOMDQT1790-06-17 07:59:00 Test Item Value Reference Range Interpretation Comments RBC (test code = RBC) 4.12 4.20-5.40 [facility] CenterVrygoylEAJUIFUCRZ4468-32-64 07:59:00 Test Item Value Reference Range Interpretation Comments MPV (test code = MPV) 7.3 7.4-10.4 [facility] CenterNudrwtxMMNPHMUSTG3658-54-80 07:59:00 Test Item Value Reference Range Interpretation Comments Platelet (test code = Platelet) 290 133-450 [facility] CenterPnuulwiDBXAZXWGWC6603-95-75 07:59:00 Test Item Value Reference Range Interpretation Comments RDW (test code = RDW) 13.8 11.5-14.5 [facility] CenterRwxfcnaCOJEGIVLUL8116-32-40 07:59:00 Test Item Value Reference Range Interpretation Comments MCHC (test code = MCHC) 33.3 32.0-36.0 [facility] CenterSrtwtyoQHAEEANXPS9032-24-21 07:59:00 Test Item Value Reference Range Interpretation Comments Lymphocytes # (test code = Lymphocytes 1.6 1.0-5.5 #) [facility] CenterTiupdtlTPYCXGRTFT4907-64-60 07:59:00 Test Item Value Reference Range Interpretation Comments Segs-Bands # (test code = Segs-Bands #) 4.8 1.5-8.1 [facility] CenterYzkrysaNPLAJGZGOC3227-90-35 07:59:00 Test Item Value Reference Range Interpretation Comments Eosinophils # (test code 0.2 See_Comment [A utomated message] The = Eosinophils #) system whic h generated this result tra nsmitted reference range : <=0.5. The reference r robbie was not used to int erpret this result as normal/abnormal . [facility] CenterPisjeboCXXCBPASBV2378-74-47 07:59:00 Test Item Value Reference Range Interpretation Comments Monocytes # (test code 0.7 See_Comment [Aut omated message] The = Monocytes #) system which generated this result tra nsmitted reference range : <=0.8. The reference r robbie was not used to int erpret this result as normal/abnormal . [facility] CenterGanegpkNZFAWRQOBW1328-81-63 07:59:00 Test Item Value Reference Range Interpretation Comments Basophils # (test code 0.1 See_Comment [Aut omated message] The = Basophils #) system which generated this result tra nsmitted reference range : <=0.2. The reference r robbie was not used to int erpret this result as normal/abnormal . [facility] CenterQbjfgviHJOFFZCALX5125-23-45 07:59:00 Test Item Value Reference Range Interpretation Comments Lymphocytes (test code = Lymphocytes) 21.7 20.0-40.0 [facility] CenterAtlsfflHVFVVAKONN9196-37-81 07:59:00 Test Item Value Reference Range Interpretation Comments Segs (test code = Segs) 65.6 45.0-75.0 [facility] CenterDeysypjSGLQBWMOAO8777-70-16 07:59:00 Test Item Value Reference Range Interpretation Comments Basophils (test code = 0.8 See_Comment [Aut omated message] The Basophils) system which ge nerated this result tra nsmitted reference range : <=1.0. The reference r robbie was not used to int erpret this result as normal/abnormal . [facility] CenterJouyguaOGWZDTRSIK2549-49-79 07:59:00 Test Item Value Reference Range Interpretation Comments Eosinophils (test code = 2.1 See_Comment [A utomated message] The Eosinophils) system which ge nerated this result tra nsmitted reference range : <=4.0. The reference r robbie was not used to int erpret this result as normal/abnormal . [facility] CenterRqyyblwPWDMEIISGE8434-31-20 07:59:00 Test Item Value Reference Range Interpretation Comments Monocytes (test code = Monocytes) 9.8 2.0-12.0 [facility] CenterSxpqxmnRYIMBKGCQT1908-72-26 08:51:00 Test Item Value Reference Range Interpretation Comments Segs (test code = Segs) 53.8 45.0-75.0 [facility] CenterFqnxaacCDNTDWWSBF4990-62-10 08:51:00 Test Item Value Reference Range Interpretation Comments Monocytes # (test code 0.6 See_Comment [Aut omated message] The = Monocytes #) system which generated this result tra nsmitted reference range : <=0.8. The reference r robbie was not used to int erpret this result as normal/abnormal . [facility] CenterZnyeekpCLOLZPXOXU3555-16-15 08:51:00 Test Item Value Reference Range Interpretation Comments Basophils (test code = 0.7 See_Comment [Aut omated message] The Basophils) system which ge nerated this result tra nsmitted reference range : <=1.0. The reference r robbie was not used to int erpret this result as normal/abnormal . [facility] CenterKwpcuyyRFJRVUYPGC9529-67-00 08:51:00 Test Item Value Reference Range Interpretation Comments Segs-Bands # (test code = Segs-Bands #) 3.1 1.5-8.1 [facility] CenterNqcnmexORPYAWGLKA2715-79-27 08:51:00 Test Item Value Reference Range Interpretation Comments Monocytes (test code = Monocytes) 9.7 2.0-12.0 [facility] CenterQqcfffcWMVERQHPKB9018-96-15 08:51:00 Test Item Value Reference Range Interpretation Comments Eosinophils (test code = 3.5 See_Comment [A utomated message] The Eosinophils) system which ge nerated this result tra nsmitted reference range : <=4.0. The reference r robbie was not used to int erpret this result as normal/abnormal . [facility] CenterKzmknhjIXPMQYWQWE8085-20-82 08:51:00 Test Item Value Reference Range Interpretation Comments Lymphocytes (test code = Lymphocytes) 32.3 20.0-40.0 [facility] CenterDlskmlfRVRHSKXVMC4865-51-91 08:51:00 Test Item Value Reference Range Interpretation Comments Eosinophils # (test code 0.2 See_Comment [A utomated message] The = Eosinophils #) system whic h generated this result tra nsmitted reference range : <=0.5. The reference r robbie was not used to int erpret this result as normal/abnormal . [facility] CenterVcavqqfAMNEUCSSNR4121-25-33 08:51:00 Test Item Value Reference Range Interpretation Comments Lymphocytes # (test code = Lymphocytes 1.8 1.0-5.5 #) [facility] CenterIlwdmbcBXWEYYMQVH9573-95-97 08:51:00 Test Item Value Reference Range Interpretation Comments MPV (test code = MPV) 7.6 7.4-10.4 [facility] CenterDaxorkkOHEXNKFNLB9166-62-34 08:51:00 Test Item Value Reference Range Interpretation Comments MCH (test code = MCH) 30.0 pg 27.0-31.0 [facility] CenterDfxmbqhOSIIGSWKJA2707-14-01 08:51:00 Test Item Value Reference Range Interpretation Comments MCV (test code = MCV) 89.1 80.0-98.0 [facility] CenterRjpbcigZRZSTOJRLY4596-69-82 08:51:00 Test Item Value Reference Range Interpretation Comments MCHC (test code = MCHC) 33.7 32.0-36.0 [facility] CenterEtomrctRNEWZQEEIG4720-50-39 08:51:00 Test Item Value Reference Range Interpretation Comments RDW (test code = RDW) 13.8 11.5-14.5 [facility] CenterZngxambUPONUXQHND9866-66-11 08:51:00 Test Item Value Reference Range Interpretation Comments Platelet (test code = Platelet) 266 133-450 [facility] CenterNvynhuxRXYPVFANUU4029-03-78 08:51:00 Test Item Value Reference Range Interpretation Comments Hgb (test code = Hgb) 12.1 12.0-16.0 [facility] CenterYkedjzgCVMYCECCDP4907-62-69 08:51:00 Test Item Value Reference Range Interpretation Comments Hct (test code = Hct) 35.8 36.0-48.0 [facility] CenterRltimikLKBTFIPMRF0456-93-22 08:51:00 Test Item Value Reference Range Interpretation Comments WBC (test code = WBC) 5.7 3.7-10.4 [facility] CenterAanhrueFULPJSJYIN0490-83-60 08:51:00 Test Item Value Reference Range Interpretation Comments RBC (test code = RBC) 4.01 4.20-5.40 [facility]2016-08-29 06:54:00 Test Item Value Reference Range Interpretation Comments Albumin Lvl (test code = Albumin Lvl) 3.2 3.5-5.0 [facility]2016-08-29 06:54:00 Test Item Value Reference Range Interpretation Comments ALT (test code = ALT) 29 See_Comment [Auto mated message] The system which ge nerated this result transmit randolph reference range : <=65. The reference range was not used to interpr et this result as juan m l/abnormal. [facility]2016-08-29 06:54:00 Test Item Value Reference Range Interpretation Comments Total Protein (test code = Total 7.4 6.4-8.4 Protein) [facility]2016-08-29 06:54:00 Test Item Value Reference Range Interpretation Comments B/C Ratio (test code = B/C Ratio) 19 6-25 [facility]2016-08-29 06:54:00 Test Item Value Reference Range Interpretation Comments A/G Ratio (test code = A/G Ratio) 0.8 0.7-1.6 [facility]2016-08-29 06:54:00 Test Item Value Reference Range Interpretation Comments Globulin (test code = Globulin) 4.2 2.7-4.2 [facility]2016-08-29 06:54:00 Test Item Value Reference Range Interpretation Comments Bili Total (test code = Bili Total) 0.5 0.2-1.3 [facility]2016-08-29 06:54:00 Test Item Value Reference Range Interpretation Comments Alk Phos (test code = Alk Phos) 66 39-136 [facility]CHE[facility] CGMPK6568-90-70 06:54:00 Test Item Value Reference Range Interpretation Comments AST (test code = AST) 23 See_Comment [Auto mated message] The system which ge nerated this result transmit randolph reference range : <=37. The reference range was not used to interpr et this result as juan m l/abnormal. [facility]annCARDIAC KPJYOZM2410-74-63 03:48:00 Test Item Value Reference Range Interpretation Comments Troponin-I (test code no gt See_Comment [Auto mated message] The = Troponin-I) system which g enerated this result transmit randolph reference range : <=0.40. The reference r robbie was not used to interpr et this result as juan m l/abnormal. [facility] MpoeidjSNIJWMURFL0381-19-21 03:48:00 Test Item Value Reference Range Interpretation Comments PTT (test code = PTT) 30.5 s 22.9-35.8 [facility] CenterVgjziltXWPIJHTPUH2950-90-82 03:48:00 Test Item Value Reference Range Interpretation Comments Etoh (%) (test code = Etoh (%)) no gt [facility] NtrylvjGXHGJCLFRB4692-57-92 03:48:00 Test Item Value Reference Range Interpretation Comments Ethanol Lvl (test code = Ethanol Lvl) no gt [facility] AND [id number] 03:48:00 Test Item Value Reference Range Interpretation Comments UA Renal Epi (test code = UA Renal Epi) [facility] [id number] 03:48:00 Test Item Value Reference Range Interpretation Comments UA Urobilinogen (test code = UA <=1.0 mg/dL 0.1-1.0 Urobilinogen) [facility] [id number] 03:48:00 Test Item Value Reference Range Interpretation Comments UA Color (test code = Yellow *NA*(04/21/16 UA Color) 10:48 PM) [facility] [id number] 03:48:00 Test Item Value Reference Range Interpretation Comments UA pH (test code = UA pH) 8.0 5.0-8.0 [facility] [id number] 03:48:00 Test Item Value Reference Range Interpretation Comments UA Spec Grav (test code = UA Spec Grav) 1.011 [facility] AND [id number] 03:48:00 Test Item Value Reference Range Interpretation Comments UA Turbidity (test code Slight *ABN*(04/21/16 = UA Turbidity) 10:48 PM) [facility] AND [id number] 03:48:00 Test Item Value Reference Range Interpretation Comments UA Glucose (test code = UA Negative mg/dL Glucose) [facility] AND [id number] 03:48:00 Test Item Value Reference Range Interpretation Comments UA Blood (test code = Negative (04/21/16 10:48 UA Blood) PM) [facility] AND [id number] 03:48:00 Test Item Value Reference Range Interpretation Comments UA Protein (test code = UA Protein) 30 mg/dL [facility] AND [id number] 03:48:00 Test Item Value Reference Range Interpretation Comments UA Bili (test code = Negative *NA*(04/21/16 UA Bili) 10:48 PM) [facility] AND [id number] 03:48:00 Test Item Value Reference Range Interpretation Comments UA Ketones (test code = UA Negative mg/dL Ketones) [facility] AND [id number] 03:48:00 Test Item Value Reference Range Interpretation Comments UA Nitrite (test code Negative (04/21/16 10:48 = UA Nitrite) PM) [facility] AND [id number] 03:48:00 Test Item Value Reference Range Interpretation Comments UA Leuk Est (test Negative (04/21/16 10:48 code = UA Leuk Est) PM) [facility] AND [id number] 03:48:00 Test Item Value Reference Range Interpretation Comments UA Amorph Chari (test code = Occasional /HPF UA Amorph Chari) [facility] AND [id number] 03:48:00 Test Item Value Reference Range Interpretation Comments UA WBC (test code = 1 See_Comment [Automa randolph message] The UA WBC) system which ge nerated this result transmit randolph reference range : <=5. The reference range was not used to interpr et this result as juan m l/abnormal. [facility] AND [id number] 03:48:00 Test Item Value Reference Range Interpretation Comments UA Mucus (test code = UA Mucus) Few [facility] [id number] 03:48:00 Test Item Value Reference Range Interpretation Comments UA Sq Epi (test code = UA Sq Occasional /LPF Epi) [facility]
[2021-12-31 20:23] LABS: Absolute Lymphocytes (CBC) 1.6 K/uL (0.7-4.9); Hematocrit 33.1 % (36.0-45.0); Lymphocytes % 29.7 % (15.3-44.8); MPV 7.5 fL (7.6-11.3); RBC Red Blood Cell Count 3.71 M/uL (3.86-4.86)
[2021-12-31 20:27] LABS: Protime INR 1.21
[2021-12-31 20:46] LABS: Bilirubin Direct 0.2 mg/dL (0-0.2); Bilirubin Total 0.6 mg/dL (0.2-1.0); Potassium 3.9 mmol/L (3.5-5.1); Protein, Total 6.6 g/dL (6.4-8.2)
--- NOTE | 2021-12-31 21:51 | RAD REPORT ---
EXAM DESCRIPTION: US - Extrem Venous W Compress Burke - 12/31/2021 9:11 pm CLINICAL HISTORY: Pain Bilateral leg edema and swelling. COMPARISON: UPPER EXTREMITY VENOUS UNILATE dated 05/25/2020 TECHNIQUE: Real-time sonographic interrogation of the left and right lower extremity deep venous sys tems was performed. FINDINGS: Normal compressibility, flow augmentation, phasic flow and spontaneous flow is identified in both the left and right lower extremity deep venous systems. IMPRESSION: No sonographic evidence of left or right lower extremity deep venous thrombosis.
--- NOTE | 2021-12-31 21:53 | RAD REPORT ---
EXAM DESCRIPTION: US - Lower Extremity Arterial Bilat - 12/31/2021 9:12 pm CLINICAL HISTORY: Pain COMPARISON: No comparisons TECHNIQUE: Bilateral lower extremity arterial Doppler examination was performed. FINDINGS: Multifocal multisegmental plaquing is bilaterally. No high-grade stenosis or occlusion is evident. Anomaly triphasic and biphasic waveforms are seen david aterally. Right dorsalis pedis is monophasic. IMPRESSION: Mild distal right peripheral vascular disease evident.
--- NOTE | 2021-12-31 21:55 | RAD REPORT ---
EXAM DESCRIPTION: US - Abdomen Pelvis Scan US - 12/31/2021 9:14 pm CLINICAL HISTORY: High blood pressure per patient, told left renal artery occlusion/problem COMPARISON: No comparisons FINDINGS: No hydronephrosis is seen affecting either kidney. No solid renal masses. Doppler interrogation of both renal artery systems was limited by bowel gas. There is mildly elevated peak systolic velocity proximal left renal artery measuring 114 cm/second. T his could indicate mild to moderate stenosis. Followup nonemergent CTA or MRA of the renal arteries would be suggested.
--- NOTE | 2021-12-31 22:05 | EDPHYS ---
Physician Documentation [facility] Name: Veena Gray Age: 86 yrs Sex: Female : 1935 Arrival Date: 12/31/2021 Time: 18:57 Bed 17 Private MD: Angelito Vega B ED Physician Brandan Bansal HPI: 12/31 19:20 This 86 yrs old Female presents to ER via Unassigned with complaints of Leg Swelling. rn 19:21 The patient has elevated blood pressure and discovered this. rn 19:22 The patient presents with pain, swelling. The complaints affect the , RLE and LLE. rn Onset: The symptoms/episode began/occurred last week. Modifying factors: The symptoms are alleviated by nothing. the symptoms are aggravated by nothing. Severity of symptoms: At their worst the symptoms were moderate, in the emergency department the symptoms are unchanged. The patient has experienced similar episodes in the past. The patient has been recently seen by a physician:. Pt reports swelling to bilateral legs, for 1 week, seen by her appraiser timber, had negative doppler u/s of aorta/iliacs, states previous left iliac stent 7 years ago. Put on spironolactone because has sulfa allergy. States swelling not improving but not significantly worse. Has happened before. No sob or chest pain. No fever. . Historical: - Allergies: 19:35 Codeine; lp1 19:35 Macrobid; lp1 19:35 Nitrofurantoin; lp1 19:35 PENICILLINS; lp1 19:35 Sulfa (Sulfonamide Antibiotics); lp1 - Home Meds: 19:35 myrbetriq 50mg Daily [Active]; Synthroid Oral 75 mcg daily [Active]; Altace Oral 5 mg lp1 twice a day [Active]; Cephalexin Oral 500 mg [Active]; Iron CR Oral [Active]; 19:39 d-mannose oral [Active]; Spironolactone Oral [Active]; Prozac 10 mg Oral cap 1 cap once lp1 daily [Active]; Bystolic 5 mg oral tab 1 tab once daily [Active]; aspirin 81 mg Oral TbEC 1 tab once daily [Active]; - PMHx: 19:35 GERD; hiatal hernia; Myocardial infarction; Vertigo; Kidney disease; lp1 - PSHx: 19:35 Iliac stent; Cholecystectomy; hysterectomy; lp1 - Immunization history:: Adult Immunizations up to date, Client reports receiving the 2nd dose of the Covid vaccine. - Social history:: Smoking status: Patient denies any tobacco usage or history of. - Family history:: not pertinent. - Hospitalizations: : No recent hospitalization is reported. ROS: 19:25 Constitutional: Negative for fever, chills, and weight loss, Eyes: Negative for injury, rn pain, redness, and discharge, Neck: Negative for injury, pain, and swelling, Cardiovascular: Negative for chest pain, palpitations Respiratory: Negative for shortness of breath, cough, wheezing, and pleuritic chest pain, Abdomen/GI: Negative for abdominal pain, nausea, vomiting, diarrhea, and constipation, Back: Negative for injury and pain, : Negative for injury, bleeding, discharge, and swelling, MS/Extremity: Negative for injury and deformity, + leg swelling and pain Skin: Negative for injury, rash, and discoloration, Neuro: Negative for headache, weakness, numbness, tingling, and seizure. Exam: 19:25 Constitutional: This is a well developed, well nourished patient who is awake, alert, rn and in no acute distress. Ambulatory without distress to room. Head/Face: Normocephalic, atraumatic. Eyes: Periorbital areas with no swelling, redness, or edema. Cardiovascular: Regular rate and rhythm . No pulse deficits. Respiratory: No increased work of breathing, no retractions or nasal flaring. Abdomen/GI: soft, non-tender Skin: Warm, dry with normal turgor. Normal color with no rashes, no lesions, and no evidence of cellulitis. MS/ Extremity: Pulses equal, no cyanosis. 2+ pitting edema bilateral lower ext to knee Neuro: Awake and alert, GCS 15 Vital Signs: 19:29 BP 202 / 68; Pulse 67; Resp 18; Temp 98.4(O); Pulse Ox 98% on R/A; Weight 53.98 kg (R); lp1 Height 5 ft. 3 in. (160.02 cm); 20:30 BP 193 / 72; Pulse 68; Resp 18; Pulse Ox 96% on R/A; ll3 22:19 BP 179 / 78; Pulse 57; Resp 20; Pulse Ox 96% on R/A; ll3 19:29 Body Mass Index 21.08 (53.98 kg, 160.02 cm) lp1 MDM: 19:03 Patient medically screened. rn 22:01 Differential diagnosis: DVT, peripheral vascular disease, renal artery stenosis, CHF, rn edema. Data reviewed: vital signs, nurses notes, lab test result(s), radiologic studies, CT scan, doppler, ultrasound, and as a result, I will discharge patient. Counseling: I had a detailed discussion with the patient and/or guardian regarding: the historical points, exam findings, and any diagnostic results supporting the discharge/admit diagnosis, lab results, radiology results, the need for outpatient follow up, to return to the emergency department if symptoms worsen or persist or if there are any questions or concerns that arise at home. Special discussion: I discussed with the patient/guardian in detail that at this point there is no indication for admission to the hospital. It is understood, however, that if the symptoms persist or worsen the patient needs to return immediately for re-evaluation. ED course: No acute findings on w/u, patient already saw her appraiser timber and plan was to start spironolactone given sulfa allergy. No occlusions or DVT found. Will dc home with continuation of spironolactone and instructed her to call her appraiser timber in AM and given return precautions.. 12/31 19:19 Order name: CBC with Diff; Complete Time: 22:00 rn 12/31 19:19 Order name: Basic Metabolic Panel; Complete Time: 22:00 rn 12/31 19:19 Order name: Protime (+inr); Complete Time: :00 rn 12/31 19:19 Order name: Ptt, Activated; Complete Time: :00 rn 12/31 19:19 Order name: BNP; Complete Time: 22:00 rn 12/31 19:19 Order name: LFT's; Complete Time: 22:00 rn 12/31 19:19 Order name: IV Start; Complete Time: 20:22 rn 12/31 19:19 Order name: Extrem Venous W Compression Burke US; Complete Time: 22:00 rn 12/31 19:19 Order name: Lower Extremity Arterial Bilat US; Complete Time: 22:00 rn 12/31 19:19 Order name: Cardiac monitoring; Complete Time: 21:15 rn 12/31 19:19 Order name: O2 Sat Monitoring; Complete Time: 21:15 rn 12/31 21:16 Order name: Abdomen Pelvis Scan\E\US; Complete Time: 22:00 EDMS Administered Medications: No medications were administered Disposition Summary: 12/31/21 22:05 Discharge Ordered Location: Home rn Problem: an ongoing problem rn Symptoms: are unchanged rn Condition: Stable rn Diagnosis - Edema, unspecified rn - Peripheral vascular disease, unspecified rn Followup: rn - With: Private Physician - When: Tomorrow - Reason: Recheck today's complaints, Re-evaluation by your physician Discharge Instructions: - Discharge Summary Sheet rn - Edema rn - Peripheral Vascular Disease rn - Peripheral Edema rn Forms: - Medication Reconciliation Form rn - Thank You Letter rn - Antibiotic agriculture internship - Prescription Opioid Use rn Signatures: Dispatcher [employer] EDMS Brandan Bansal MD MD rn Pena, Laura, RN RN lp1 Corrections: (The following items were deleted from the chart) 19:25 19:22 Pt reports swelling to bilateral legs, for 1 week, seen by her appraiser timber, had rn negative doppler u/s of aorta/iliacs, states previous left iliac stent 7 years ago. Put on spironolactone because has sulfa allergy . rn 21:16 19:22 Rp Exam Complete+US.RAD.BRZ ordered. EDMS EDMS
--- NOTE | 2021-12-31 22:05 | ER ---
Nurse's Notes [facility] Name: Veena Gray Age: 86 yrs Sex: Female : 1935 Arrival Date: 12/31/2021 Time: 18:57 Bed 17 Private MD: Angelito Vega B Diagnosis: Edema, unspecified;Peripheral vascular disease, unspecified Presentation: 12/31 19:29 Chief complaint: Patient states: High blood pressure x 1 week with bilateral lower leg lp1 swelling, reports pain in right lower leg; Reported shortness of breath with exertion. Coronavirus screen: At this time, the client does not indicate any symptoms associated with coronavirus-19. Ebola Screen: No symptoms or risks identified at this time. Initial Sepsis Screen: Does the patient meet any 2 criteria? No. Patient's initial sepsis screen is negative. Does the patient have a suspected source of infection? No. Patient's initial sepsis screen is negative. Risk Assessment: Do you want to hurt yourself or someone else? Patient reports no desire to harm self or others. Onset of symptoms was December 31, 2021. 19:29 Method Of Arrival: Wheelchair lp1 19:29 Acuity: RITIKA 2 lp1 Triage Assessment: 20:56 General: Appears uncomfortable, Behavior is calm, cooperative. Musculoskeletal: ll3 Swelling present in right leg and left leg. Historical: - Allergies: 19:35 Codeine; lp1 19:35 Macrobid; lp1 19:35 Nitrofurantoin; lp1 19:35 PENICILLINS; lp1 19:35 Sulfa (Sulfonamide Antibiotics); lp1 - Home Meds: 19:35 myrbetriq 50mg Daily [Active]; Synthroid Oral 75 mcg daily [Active]; Altace Oral 5 mg lp1 twice a day [Active]; Cephalexin Oral 500 mg [Active]; Iron CR Oral [Active]; 19:39 d-mannose oral [Active]; Spironolactone Oral [Active]; Prozac 10 mg Oral cap 1 cap once lp1 daily [Active]; Bystolic 5 mg oral tab 1 tab once daily [Active]; aspirin 81 mg Oral TbEC 1 tab once daily [Active]; - PMHx: 19:35 GERD; hiatal hernia; Myocardial infarction; Vertigo; Kidney disease; lp1 - PSHx: 19:35 Iliac stent; Cholecystectomy; hysterectomy; lp1 - Immunization history:: Adult Immunizations up to date, Client reports receiving the 2nd dose of the Covid vaccine. - Social history:: Smoking status: Patient denies any tobacco usage or history of. - Family history:: not pertinent. - Hospitalizations: : No recent hospitalization is reported. Screenin:56 Abuse screen: Denies threats or abuse. Nutritional screening: No deficits noted. ll3 Tuberculosis screening: No symptoms or risk factors identified. Fall Risk No fall in past 12 months (0 pts). No secondary diagnosis (0 pts). IV access (20 points). Ambulatory Aid- None/Bed Rest/Nurse Assist (0 pts). Gait- Normal/Bed Rest/Wheelchair (0 pts) Mental Status- Oriented to own ability (0 pts). Total Vigil Fall Scale indicates No Risk (0-24 pts). Assessment: 20:54 General: Appears uncomfortable, Behavior is calm, cooperative. Pain: Denies pain. ll3 Neuro: Level of Consciousness is awake, alert, obeys commands, Oriented to person, place, time, situation. Derm: Skin is pink, Bilateral lower leg edema, states they have been swollen for the past 3 days. 22:18 Reassessment: No changes from previously documented assessment. Patient and/or family ll3 updated on plan of care and expected duration. Pain level reassessed. Patient is alert, oriented x 3, equal unlabored respirations, skin warm/dry/pink. Vital Signs: 19:29 BP 202 / 68; Pulse 67; Resp 18; Temp 98.4(O); Pulse Ox 98% on R/A; Weight 53.98 kg (R); lp1 Height 5 ft. 3 in. (160.02 cm); 20:30 BP 193 / 72; Pulse 68; Resp 18; Pulse Ox 96% on R/A; ll3 22:19 BP 179 / 78; Pulse 57; Resp 20; Pulse Ox 96% on R/A; ll3 19:29 Body Mass Index 21.08 (53.98 kg, 160.02 cm) lp1 ED Course: 18:57 Patient arrived in ED. as 18:57 Angelito Vega MD is Private Physician. as 19:03 Brandan Bansal MD is Attending Physician. rn 19:29 Arm band placed on. lp1 19:35 Triage completed. lp1 20:07 Inserted saline lock: 20 gauge in left antecubital area, using aseptic technique. Blood as6 collected. 20:57 Patient has correct armband on for positive identification. Bed in low position. Call ll3 light in reach. Side rails up X 1. 21:13 Extrem Venous W Compression Burke US In Process Unspecified. EDMS 21:13 Lower Extremity Arterial Bilat US In Process Unspecified. EDMS 21:16 Abdomen Pelvis Scan\E\US In Process Unspecified. EDMS 22:19 No provider procedures requiring assistance completed. ll3 22:35 IV discontinued, intact, bleeding controlled, No redness/swelling at site. Pressure ll3 dressing applied. Administered Medications: No medications were administered Outcome: 22:05 Discharge ordered by . rn 22:35 Discharged to home ambulatory. ll3 22:35 Condition: stable 22:35 Discharge instructions given to patient, family, Instructed on discharge instructions, follow up and referral plans. Demonstrated understanding of instructions, follow-up care. 22:36 Patient left the ED. ll3 Signatures: Dispatcher [employer] Delicia Purcell Roman, MD MD rn Pena, Laura, RN RN lp1 Kike De Jesus, RACH RN as6 Shaka Figueroa, RN RN ll3 Corrections: (The following items were deleted from the chart) 21:16 21:13 In radiology for Rp Exam Complete+US.RAD.BRZ. EDMS EDMS
[2022-01-01 01:11] VITALS: TEMP 98.4
[2022-01-01 01:16] VITALS: O2SAT 96
[2022-01-01 01:17] VITALS: BP 179/78
== END 2021-12-31 22:36 | disposition home or self-care (01) ==
LOC: ER 18:56
DX: I73.9 Peripheral vascular disease, unspecified (principal); N28.9 Disorder of kidney and ureter, unspecified; K21.9 Gastro-esophageal reflux disease without esophagitis; I25.2 Old myocardial infarction; Z88.0 Allergy status to penicillin; Z88.2 Allergy status to sulfonamides; Z88.5 Allergy status to narcotic agent; Z88.8 Allergy status to other drugs, medicaments and biological substances
CPT/HCPCS: 36415; 80048; 80076; 83880; 85025; 85610; 85730; 93925; 93970; 93975; 99283

== ENCOUNTER 2022-01-23 15:38 | Emergency (ER) | payer OTHER ==
--- OUTSIDE RECORDS SUMMARY | 2022-01-23 15:46 | XMS REPORT | Continuity of Care Document ---
:1935 Author Organization [facility] t Address [address] [place] [address] Care Team Providers Name Role Phone Charleen MANCILLA, H Primary Care Physician DEREJE Attending Clinician Unavailable Christy GIBBONS Attending Clinician Unavailable 1, Infusion Nurse Attending Clinician Unavailable Charleen MANCILLA, H Attending Clinician Doctor Unassigned, Name Attending Clinician Unavailable Nyasia Cowan Attending Clinician Unavailable UNKNOWN Attending Clinician Unavailable DINORA Attending Clinician Unavailable HALIMA Attending Clinician Unavailable Halima HARTMANP Attending Clinician Dereje MANCILLA Attending Clinician Only, Test Attending Clinician Unavailable Pob, Lab Main Attending Clinician Unavailable Nyasia HOLMAN Attending Clinician Unavailable Mehran Henson DO Attending Clinician Radiology Attending Clinician Unavailable DEREJE Admitting Clinician Unavailable Nyasia Cowan Admitting Clinician Unavailable Dereje MANCILLA Admitting Clinician Payers Payer Name Policy Type Policy Number Effective Date Ex[place] Date [place] [facility] [place] \\T\\ [id number] 1999 B 00:00:00 [employer] [id number] 2016 00:00:00 Problems Condition Condition Condition Status Onset Resolution Last Treating Co mments Source Name Details Category Date Date Treatment Clinician Date CCL / Diagnosis Active 2018-082019-06-02 Alesia oridanny RENAL 0 05:41:00 l STENT CCL / 00:00: [place] RENAL 00 STENT Active 05/25/2019 [facility] NEW PT Diagnosis Active 2019-05-05 Mem oria CONSULT - 04-23 14:43:00 l 2ND NEW PT 00:00: Conrad OPINION CONSULT - 00 2ND OPINION Active 04/23/2019 [facility] ATHEROSCLE Diagnosis Active 2016-11-19 Memoria ROSIS OF 10-17 13:05:00 l [facility] [place] 00:00: Conrad ARTERIES ATHEROSCLE 00 OF EX ROSIS OF [facility] [place] ARTERIES OF EX Active 10/17/2016 [facility] CCL/LEFT Diagnosis Active 2016-10-21 M emoria 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: CCL/LEFT 00:00: Mela nn I70.221 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: I70.221 Active 10/17/2016 [facility] DIZZINESS Diagnosis Active 2016-05-01 Memoria 04-21 22:08:00 l 00:00: Conrad DIZZINESS 00 Active 04/21/2016 [facility] Hyperurice Hyperurice Disease Active U nivers evonne evonne 3-16 ity of 00:00: [place] [facility] Primary Primary Disease Active 2014-08 Univers hypothyroi hypothyroi 2-14 it y of dism dism 00:00: [place] 00 [facility] Primary Primary Disease Active 2014-08 Univers hypothyroi hypothyroi 2-14 it y of dism dism 00:00: [place] 00 [facility] Osteoporos Osteoporos Disease Active U nivers is is 9-28 ity of 00:00: [place] 00 [facility] 593.2 - Diagnosis Active 2016-03-31 Me stevens "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:54: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," 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 - 00:01: 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," Active 03/03/2015 MARIE Martines No known No known Disease Unive rs active active ity of problems problems [facility] Coronary Problem Resolve 2020-09-01 Me moria arterioscl d 22:24:26 l erosis Coronary [place] (disorder) arterioscl erosis (disorder) Resolved Problem 09/01/2020 CAD with stents Medical Group,[facility], MARIE Carlson Gastroesop Problem Resolve 2020-09-01 Memoria hageal d 22:24:26 l reflux Conrad disease Gastroesop (disorder) hageal reflux disease (disorder) Resolved Problem 09/01/2020 Medical Group,[facility], MARIE Carlson History of Problem Resolve 2020-09-01 Memoria - surgery d 22:24:26 l (context-d History Her carrizales ependent of - category) surgery (context-d ependent category) Resolved Problem 09/01/2020 Medical Group,[facility], MARIE Carlson History of Problem Resolve 2020-09-01 Memoria - vertigo d 22:24:26 l (context-d History Her carrizales ependent of - category) vertigo (context-d ependent category) Resolved Problem 09/01/2020 Medical Group,[facility], MARIE Carlson Hypertensi Problem Resolve 2020-09-01 Memoria ve d 22:24:26 l disorder, [place] systemic Hypertensi arterial ve (disorder) disorder, systemic arterial (disorder) Resolved Problem 09/01/2020 Medical Group,[facility], MARIE Carlson ENCNTR FOR Diagnosis Active 2019-05-05 Memoria GENERAL 14:43:00 l ADULT ENCNTR [place] MEDICAL FOR EXAM W/ GENERAL ADULT MEDICAL EXAM W/ Active [facility] ILLNESS, Diagnosis Active 2016-05-01 M emoria UNSPECIFIE 22:08:00 l D ILLNESS, [place] UNSPECIFIE D Active [facility] Myocardial Problem Resolve 2002-0 2020-09-01 2020-09-01 Memoria infarction d - 22:24:26 22:24:26 l (disorder) 00:00: [place] Myocardial 00 infarction (disorder) Resolved 08/25/2002 Problem 09/01/2020 Medical Group,[facility], MARIE Carlson Allergies, Adverse Reactions, Alerts Allergy Allergy Status Severity Reaction(s) Onset Inactive Treating Comm ents Source Name Type Date Date Clinician Penicill DA Active U HIVES [facility] ins 09-14 [place] 00:00: Health 00 are [facility] Sulfa DA Active U RASH [facility] (Sulfona 09-14 [place] mide 00:00: [facility] Antibiot 00 are ics) [facility] codeine DA Active U NAUSEA [facility] 09-14 [place] 00:00: Health 00 are [facility] Codeine Propensi Active Unknown - Gives Univ ers ty to See comments 2 patient ity of adverse 00:00: the [place] reaction 00 opposite Medica l s effects Branch from codeine per patient CODEINE DRUG Active Unknown-Cmnt Uni vers INGREDI 2- ity of 00:00: [place] 00 [facility] Nitrofur Propensi Active Hives Univer s antoin ty to 05-22 ity of Monohyd/ adverse 00:00: [place] M-Cryst reaction 00 Medical s Branch Penicill Propensi Active Unknown - Childhood Univers ins ty to See comments 05-22 allergy ity of adverse 00:00: [place] reaction 00 Medical s Branch Sulfur Propensi Active Hives Univers ty to 05-22 ity of adverse 00:00: [place] reaction 00 Medical s Branch NITROFUR DRUG Active Hives Univers ANTOIN 05-22 ity of MONOHYD/ 00:00: [place] M-CRYST 00 Medical Branch PENICILL Drug Active Unknown-Cmnt Un amalia INS Class 05-22 ity of 00:00: [place] 00 [facility] Branch SULFUR DRUG Active Hives Univers INGREDI 05-22 ity of 00:00: [place] 00 [facility] penicill penicill Active Memori a ins<sup> ins<sup> 3-26 l 1</sup> 1</sup> 05:00: [place] 00 sulfa sulfa Active Memoria drugs<ward drugs<ward 3-26 l p>2</sup p>2</sup 05:00: [place] > > 00 nitrofur nitrofur Active Memori a antoin<s antoin<s 3-26 l up>1</ward up>1</ward 05:00: [place] p> p> 00 sulfa sulfa Active Memoria drugs<ward drugs<ward 3-26 l p>3</sup p>3</sup 05:00: [place] > > 00 penicill penicill Active Memori a ins<sup> ins<sup> 3-26 l 2</sup> 2</sup> 05:00: [place] 00 niacin niacin Active Memoria l [place] Plavix Plavix Active Memoria l [place] Celebrex Celebrex Active Memori a l [place] Keflex Keflex Active Memoria l [place] penicill penicill Active Memori a ins ins l [place] sulfa sulfa Active Memoria drugs drugs l Conrad codeine codeine Active Memoria l Conrad Social History Social Habit Start Date Stop Date Quantity Comments Source Exposure to Not sure [facility] SARS-CoV-2 [facility] (event) [place] Tobacco use and 2020-12-06 2020-12-06 Never used Universit y of exposure 00:00:00 00:00:[address] [facility] Tobacco Comment 2020-12-06 2020-12-06 quit 30 yrs ago Univ ersity of 00:00:00 00:00:[address] [facility] Sex Ass[birth year] Universit y of 00:00:00 00:00:[address] [facility] Smoking Status Start Date Stop Date Source Unknown if ever smoked [facility] Social History 2019-05-05 19:46:47 2019-05-05 19:46:47 [facility] [place] [facility] Medications Ordered Filled Start Stop Current Ordering Indication Dosage Frequency Signature Comments Components Source Medication Medication Date Date Medication? Clinician (SIG) Name Name denosumab 2021- No [id number] 60mg 60 mg, U nivers (PROLIA) 3- 03-03 Subcutaneo ity of injection 15:00: 15:05 [place]CE[place] 60 mg 00 :00 1 dose, On Med ical [place] 10/25/21 Branch at 0915, Routine
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
Reaso n for non-formul miquel use: PATIENT CURRENTLY TAKING NONFORMULA RY PRODUCT denosumab 2020- No [id number] 60mg Un amalia (PROLIA) 04-12 ity of injection 14:15: 14:19 [place] Syrg 60 mg 00 :00 [facility] Branch denosumab 2020- No [id number] 60mg 60 mg, Univers (PROLIA) 04-12 Subcutaneo ity of injection 14:15: 14:19 [place], ONCE, [place] Sy[place] 60 mg 00 :00 1 dose, Medica l [place] Branch 04/12/21 at 0930, Routine
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
Reaso n for non-formul miquel use: PATIENT CURRENTLY TAKING NONFORMULA RY PRODUCT SERTraline Yes 12.5mg Take 12.5 Univers 25 mg 8-06 mg by ity of tablet 16:25: mouth. [address] [place] Yes 500mg Take 500 Uni vers 500 mg Cap 8-06 mg by ity of 16:25: mouth 2 [place] [address] (two) Medical times [place] daily. iron,carb/f Yes 1{tbl} Take 1 Un amalia olic ac/vit 8-06 tablet by ity of Bcomp,C 16:25: mouth 2 [place] (IRON-FOLIC 07 (two) Medical 500 ORAL) times [place] daily. SERTraline Yes 12.5mg Take 12.5 Univers 25 mg 8-06 mg by ity of tablet 16:25: mouth. [address] [place] Yes 500mg Take 500 Uni vers 500 mg Cap 8-06 mg by ity of 16:25: mouth 2 [place] [address] (two) Medical times [place] daily. iron,carb/f Yes 1{tbl} Take 1 Un [facility] olic ac/vit 8-06 tablet by ity of Bcomp,C 16:25: mouth 2 [place] (IRON-FOLIC 07 (two) Medical 500 ORAL) times [place] daily. SERTraline Yes 12.5mg Take 12.5 Univers 25 mg 8-06 mg by ity of tablet 16:25: mouth. [address] [place] Yes 500mg Take 500 Uni vers 500 mg Cap 8-06 mg by ity of 16:25: mouth 2 [place] [address] (two) Medical times Branch daily. iron,carb/f Yes 1{tbl} Take 1 Un [facility] olic ac/vit 8-06 tablet by ity of Bcomp,C 16:25: mouth 2 [place] (IRON-FOLIC 07 (two) Medical 500 ORAL) times Branch daily. SERTraline Yes 12.5mg Take 12.5 Univers 25 mg 8-06 mg by ity of tablet 11:25: mouth. [address] [place] Yes 500mg Take 500 Uni vers 500 mg Cap 8-06 mg by ity of 11:25: mouth 2 [place] [address] (two) Medical times Branch daily. iron,carb/f Yes 1{tbl} Take 1 Un [place] olic ac/vit 8-06 tablet by ity of Bcomp,C 11:25: mouth 2 [place] (IRON-FOLIC 07 (two) Medical 500 ORAL) times Branch daily. SERTraline Yes 12.5mg Take 12.5 Univers 25 mg 8-06 mg by ity of tablet 11:25: mouth. [address] [place] Yes 500mg Take 500 Uni vers 500 mg Cap 8-06 mg by ity of 11:25: mouth 2 [place] [address] (two) Medical times [place] daily. iron,carb/f Yes 1{tbl} Take 1 Un [facility] olic ac/vit 8-06 tablet by ity of Bcomp,C 11:25: mouth 2 [place] (IRON-FOLIC 07 (two) Medical 500 ORAL) times Branch daily. folic acid Yes [id number] Take by Univers (FA-8) 0.8 4-15 mouth. ity of mg Cap 15:51: [address] Magnesium Yes [id number] 500mg Take 500 Univers 250 mg Tab 4-15 mg by ity of 15:51: mouth. [address] aspirin 81 Yes 81mg Take 81 mg U nivers mg EC 4-15 by mouth ity of tablet 15:51: daily. [address] CALCIUM Yes Take by Univer s CITRATE 4-15 mouth. ity of ORAL 15:51: [address] NIFEdipine Yes Nifedical Un [place] XL 30 mg 24 4-15 XL 30 mg ity of hr tablet 15:51: tablet,ext [place] 38 ended Medical release Branch SERTraline Yes sertraline U nivers 25 mg 4-15 25 mg ity of tablet 15:51: tablet [address] mirabegron Yes Take by Uni vers (MYRBETRIQ) 4-15 mouth ity of 50 mg 15:51: daily. [address] ramipriL 10 Yes 10mg Take 10 mg Univers mg capsule 4-15 by mouth ity o f 15:51: daily. [address] folic acid Yes [id number] Take by Univers (FA-8) 0.8 4-15 mouth. ity of mg Cap 15:51: [address] Magnesium Yes [id number] 500mg Take 500 Univers 250 mg Tab 4-15 mg by ity of 15:51: mouth. [address] aspirin 81 Yes 81mg Take 81 mg U nivers mg EC 4-15 by mouth ity of tablet 15:51: daily. [address] CALCIUM Yes Take by Univer s CITRATE 4-15 mouth. ity of ORAL 15:51: [address] NIFEdipine Yes Nifedical Un [place] XL 30 mg 24 4-15 XL 30 mg ity of hr tablet 15:51: tablet,ext [place] 38 ended Medical release Branch SERTraline Yes sertraline U nivers 25 mg 4-15 25 mg ity of tablet 15:51: tablet [address] mirabegron Yes Take by Uni vers (MYRBETRIQ) 4-15 mouth ity of 50 mg 15:51: daily. [address] ramipriL 10 Yes 10mg Take 10 mg Univers mg capsule 4-15 by mouth ity o f 15:51: daily. [address] folic acid Yes [id number] Take by Univers (FA-8) 0.8 4-15 mouth. ity of mg Cap 15:51: [address] Magnesium Yes [id number] 500mg Take 500 Univers 250 mg Tab 4-15 mg by ity of 15:51: mouth. [address] aspirin 81 Yes 81mg Take 81 mg U nivers mg EC 4-15 by mouth ity of tablet 15:51: daily. [address] CALCIUM Yes Take by Univer s CITRATE 4-15 mouth. ity of ORAL 15:51: [address] NIFEdipine Yes Nifedical Un [place] XL 30 mg 24 4-15 XL 30 mg ity of hr tablet 15:51: tablet,ext [place] 38 ended Medical release Branch SERTraline Yes sertraline U nivers 25 mg 4-15 25 mg ity of tablet 15:51: tablet [address] mirabegron Yes Take by Uni vers (MYRBETRIQ) 4-15 mouth ity of 50 mg 15:51: daily. [address] ramipriL 10 Yes 10mg Take 10 mg Univers mg capsule 4-15 by mouth ity o f 15:51: daily. [address] folic acid Yes [id number] Take by Univers (FA-8) 0.8 4-15 mouth. ity of mg Cap 15:51: [address] Magnesium Yes [id number] 500mg Take 500 Univers 250 mg Tab 4-15 mg by ity of 15:51: mouth. [address] aspirin 81 Yes 81mg Take 81 mg U nivers mg EC 4-15 by mouth ity of tablet 15:51: daily. [address] CALCIUM Yes Take by Univer s CITRATE 4-15 mouth. ity of ORAL 15:51: [address] NIFEdipine Yes Nifedical Un [place] XL 30 mg 24 4-15 XL 30 mg ity of hr tablet 15:51: tablet,ext [place] 38 ended Medical release Branch SERTraline Yes sertraline U nivers 25 mg 4-15 25 mg ity of tablet 15:51: tablet [address] mirabegron Yes Take by Uni vers (MYRBETRIQ) 4-15 mouth ity of 50 mg 15:51: daily. [address] ramipriL 10 Yes 10mg Take 10 mg Univers mg capsule 4-15 by mouth ity o f 15:51: daily. [address] folic acid Yes [id number] Take by Univers (FA-8) 0.8 4-15 mouth. ity of mg Cap 15:51: [address] Magnesium Yes [id number] 500mg Take 500 Univers 250 mg Tab 4-15 mg by ity of 15:51: mouth. [address] aspirin 81 Yes 81mg Take 81 mg U nivers mg EC 4-15 by mouth ity of tablet 15:51: daily. [address] CALCIUM Yes Take by Univer s CITRATE 4-15 mouth. ity of ORAL 15:51: [address] NIFEdipine Yes Nifedical Un [place] XL 30 mg 24 4-15 XL 30 mg ity of hr tablet 15:51: tablet,ext [place] 38 ended Medical release Branch SERTraline Yes sertraline U nivers 25 mg 4-15 25 mg ity of tablet 15:51: tablet [address] mirabegron Yes Take by Uni vers (MYRBETRIQ) 4-15 mouth ity of 50 mg 15:51: daily. [address] ramipriL 10 Yes 10mg Take 10 mg Univers mg capsule 4-15 by mouth ity o f 15:51: daily. [address] folic acid Yes [id number] Take by Univers (FA-8) 0.8 4-15 mouth. ity of mg Cap 15:51: [address] Magnesium Yes [id number] 500mg Take 500 Univers 250 mg Tab 4-15 mg by ity of 15:51: mouth. [address] aspirin 81 0 Yes 81mg Take 81 mg U nivers mg EC 4-15 by mouth ity of tablet 15:51: daily. [address] CALCIUM Yes Take by Univer s CITRATE 4-15 mouth. ity of ORAL 15:51: [address] NIFEdipine Yes Nifedical Un [place] XL 30 mg 24 4-15 XL 30 mg ity of hr tablet 15:51: tablet,ext [place] 38 ended Medical release Branch SERTraline Yes sertraline U nivers 25 mg 4-15 25 mg ity of tablet 15:51: tablet [address] mirabegron Yes Take by Uni vers (MYRBETRIQ) 4-15 mouth ity of 50 mg 15:51: daily. [address] ramipriL 10 Yes 10mg Take 10 mg Univers mg capsule 4-15 by mouth ity o f 15:51: daily. [address] folic acid Yes [id number] Take by Univers (FA-8) 0.8 4-15 mouth. ity of mg Cap 15:51: [address] Magnesium Yes [id number] 500mg Take 500 Univers 250 mg Tab 4-15 mg by ity of 15:51: mouth. [address] aspirin 81 Yes 81mg Take 81 mg U nivers mg EC 4-15 by mouth ity of tablet 15:51: daily. [address] CALCIUM Yes Take by Univer s CITRATE 4-15 mouth. ity of ORAL 15:51: [address] NIFEdipine Yes Nifedical [place] XL 30 mg 24 4-15 XL 30 mg ity of hr tablet 15:51: tablet,ext [place] [address] [place] [address] mirabegron Yes Take by Uni vers (MYRBETRIQ) 4-15 mouth ity of 50 mg 15:51: daily. [address] ramipriL 10 Yes 10mg Take 10 mg Univers mg capsule 4-15 by mouth ity o f 15:51: daily. [address] folic acid Yes [id number] Take by Univers (FA-8) 0.8 4-15 mouth. ity of mg Cap 15:51: [address] Magnesium Yes [id number] 500mg Take 500 Univers 250 mg Tab 4-15 mg by ity of 15:51: mouth. [address] aspirin 81 Yes 81mg Take 81 mg U nivers mg EC 4-15 by mouth ity of tablet 15:51: daily. [address] CALCIUM Yes Take by Univer s CITRATE 4-15 mouth. ity of ORAL 15:51: [address] NIFEdipine Yes Nifedical Un [place] XL 30 mg 24 4-15 XL 30 mg ity of hr tablet 15:51: tablet,ext [place] 38 ended Medical release [place] mirabegron Yes Take by Uni vers (MYRBETRIQ) 4-15 mouth ity of 50 mg 15:51: daily. [place] [address] Medical [place] ramipriL 10 Yes 10mg Take 10 mg Univers mg capsule 4-15 by mouth ity o f 15:51: daily. [address] folic acid Yes [id number] Take by Univers (FA-8) 0.8 4-15 mouth. ity of mg Cap 15:51: [address] Magnesium Yes [id number] 500mg Take 500 Univers 250 mg Tab 4-15 mg by ity of 15:51: mouth. [address] aspirin 81 Yes 81mg Take 81 mg U nivers mg EC 4-15 by mouth ity of tablet 15:51: daily. [address] CALCIUM Yes Take by Univer s CITRATE 4-15 mouth. ity of ORAL 15:51: [address] NIFEdipine Yes Nifedical Un [place] XL 30 mg 24 4-15 XL 30 mg ity of hr tablet 15:51: tablet,ext [place] 38 ended Medical release [place] mirabegron Yes Take by Uni vers (MYRBETRIQ) 4-15 mouth ity of 50 mg 15:51: daily. [place] [address] Medical [place] ramipriL 10 Yes 10mg Take 10 mg Univers mg capsule 4-15 by mouth ity o f 15:51: daily. [place] [address] Medical [place] mupirocin 2020- No Intra-op Uni vers (BACTROBAN 12-07 ity of OINT) 2 % 14:46: 17:51 [place] skin 00 :38 Medical ointment Branch bupivacaine 2020- No PRN, Unive rs liposome 12-07 Starting ity of (PF) 14:42: 17:51 [place] (EXPAREL 00 :38 12/07/20 at Medic al (PF)) 1.3 % 0942, [place] (13.3 Until [place] mg/mL) 12/07/20 at injection 1251, Routine, Intra-op sodium 2020- No PRN, Univers chloride 12-07 04-15 Starting ity of 0.9 % 14:38: 17:51 [place] irrigation 00 :38 12/07/20 at Med ical solution 0938, Branch Until [place] 12/07/20 at 1251, Intra-op lactated 2020- No 1000mL at [facility] ringers IV 4-15 04-15 mL/hr, ity of infusion 13:00: 13:27 1,000 mL, [place] as 1,000 mL 00 :00 IV Medical Infusion, Branch ONCE, 1 dose, [place] 12/07/20 at 0800, Routine, DSU Pre-op lactated 2020- No 1000mL at [facility] ringers IV -15 04-15 mL/hr, ity of infusion 13:00: 13:27 1,000 mL, Laurent as 1,000 mL 00 :00 IV Medical Infusion, Branch ONCE, 1 dose, [place] 12/07/20 at 0800, Routine, DSU Pre-op folic acid Yes [id number] Take by Univers (FA-8) 0.8 4-15 mouth. ity of mg Cap 10:51: [address] Magnesium Yes [id number] 500mg Take 500 Univers 250 mg Tab 4-15 mg by ity of 10:51: mouth. [address] aspirin 81 Yes 81mg Take 81 mg U nivers mg EC 4-15 by mouth ity of tablet 10:51: daily. [address] CALCIUM Yes [facility]-15 mouth. ity of ORAL 10:51: [address] NIFEdipine Yes Nifedical [place] XL 30 mg 24 4-15 XL 30 mg ity of hr tablet 10:51: tablet,ext [place] [address] [place] [address] mirabegron Yes Take by Uni vers (MYRBETRIQ) 4-15 mouth ity of 50 mg 10:51: daily. [address] ramipriL 10 Yes 10mg Take 10 mg Univers mg capsule 4-15 by mouth ity o f 10:51: daily. [address] folic acid Yes [id number] Take by Univers (FA-8) 0.8 4-15 mouth. ity of mg Cap 10:51: [address] Magnesium Yes [id number] 500mg Take 500 Univers 250 mg Tab 4-15 mg by ity of 10:51: mouth. [address] aspirin 81 Yes 81mg Take 81 mg U nivers mg EC 4-15 by mouth ity of tablet 10:51: daily. [address] CALCIUM Yes Take by Univer s CITRATE 4-15 mouth. ity of ORAL 10:51: [address] NIFEdipine Yes Nifedical [place] XL 30 mg 24 4-15 XL 30 mg ity of hr tablet 10:51: tablet,ext [place] [address] [place] [address] release [place] mirabegron Yes Take by Uni vers (MYRBETRIQ) 4-15 mouth ity of 50 mg 10:51: daily. [address] ramipriL 10 Yes 10mg Take 10 mg Univers mg capsule 4-15 by mouth ity o f 10:51: daily. [address] Magnesium Yes [id number] 500mg Take 500 Univers 250 mg Tab 4-14 mg by ity of 16:39: mouth. [address] aspirin 81 Yes 81mg Take 81 mg U nivers mg EC 4-14 by mouth ity of tablet 16:39: daily. [address] CALCIUM Yes Take by Univer s CITRATE 4-14 mouth. ity of ORAL 16:39: [address] NIFEdipine Yes Nifedical [place] XL 30 mg 24 4-14 XL 30 mg ity of hr tablet 16:39: tablet,ext [place] [address] [place] [address] SERTraline Yes sertraline U nivers 25 mg 4-14 25 mg ity of tablet 16:39: tablet [address] mirabegron Yes Take by Uni vers (MYRBETRIQ) 4-14 mouth ity of 50 mg 16:39: daily. [address] Magnesium Yes [id number] 500mg Take 500 Univers 250 mg Tab 4-14 mg by ity of 16:39: mouth. [address] aspirin 81 Yes 81mg Take 81 mg U nivers mg EC 4-14 by mouth ity of tablet 16:39: daily. [address] CALCIUM Yes Take by Univer s CITRATE 4-14 mouth. ity of ORAL 16:39: [address] NIFEdipine Yes Nifedical [place] XL 30 mg 24 4-14 XL 30 mg ity of hr tablet 16:39: tablet,ext [place] [facility] Branch SERTraline Yes sertraline U nivers 25 mg 4-14 25 mg ity of tablet 16:39: tablet [address] mirabegron Yes Take by Uni vers (MYRBETRIQ) 4-14 mouth ity of 50 mg 16:39: daily. [facility] NIFEdipine Yes Nifedical Un [place] XL 30 mg 24 2-11 XL 30 mg ity of hr tablet 21:33: tablet,ext [place] [facility] Branch SERTraline Yes sertraline U nivers 25 mg 2-11 25 mg ity of tablet 21:33: tablet [place] [facility] NIFEdipine Yes Nifedical Un [place] XL 30 mg 24 2-11 XL 30 mg ity of hr tablet 21:33: tablet,ext [place] [facility] release Branch SERTraline Yes sertraline U nivers 25 mg 2-11 25 mg ity of tablet 21:33: tablet [place] [facility] NIFEdipine Yes Nifedical Un [place] XL 30 mg 24 2-11 XL 30 mg ity of hr tablet 21:33: tablet,ext [place] Medical release Branch SERTraline Yes sertraline U nivers 25 mg 2-11 25 mg ity of tablet 21:33: tablet [place] [facility] NIFEdipine Yes Nifedical Un [place] XL 30 mg 24 2-11 XL 30 mg ity of hr tablet 21:33: tablet,ext [place] Medical release Branch SERTraline Yes sertraline U nivers 25 mg 2-11 25 mg ity of tablet 21:33: tablet [place] 01 Medical Branch 24 HR 2019-08 Yes 50 mg = 1 Memoria mirabegron 2-30 tab, PO, l 50 MG 15:24: Daily, # [place] Extended 00 30 tab, 0 Release Refill(s), Tablet Pharmacy: [Myrbetriq] [facility] BRAZORIA, 160.02, cm, 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 May dispose of applicator ., # 43 gm, 3 Refill(s), Pharmacy: [facility], 160.02, cm, 06/14/20 10:46:00 CDT, Height, 60, [...] Sodium 2018-08 No 750 mL, Memoria Chloride 0-09 Rate: 75 l 0.9% IV 750 14:55: ml/hr, Herm angela mL 00 Infuse over: 10 hr, Route: IV, Dosing Weight 65.909 kg, Total Volume: 750, Start date: 06/02/19 9:55:00 CDT, Duration: 10 hr, Stop date: 06/02/19 19:54:00 CDT, 1.72, m2, 0 Nitroglycer 2018-08 No Notes: Arturo sony in 0 (Same l 14:55: as:Nitroqu [place] 00 ick, Nitrostat) "Do Not Crush" Sublingual tablet Hydralazine 2018-08 No 10 mg, Arturo sony Route: IV, l 11:50: ONCE, Dosing Weight 65.909, kg, Start date: 06/02/19 6:50:00 CDT, Stop date: 06/02/19 6:50:00 CDT oxybutynin 2018-08 Yes 5 mg = 1 Mem oria 5 mg oral 0-09 tab, PO, l tablet, 10:59: QAM, 0 [place] extended 00 Refill(s) release ramipril 10 2018-08 Yes 10 mg = 1 M emoria mg oral 0 cap, PO, l capsule 10:59: BID, 0 [place] 00 Refill(s) Day 2018-08 Yes 1 tab, PO, Memor ia Calcium 0- BID, 0 l with 10:59: Refill(s) Vitamin D 00 Chelated 2018-08 Yes See Memoria Magnesium 0 Instructio l 10:59: ns, 250 mg Conrad 00 PO QPM, 0 Refill(s) Bifidobacte Yes 4 mg = 1 Me moria rium 9-11 cap, PO, l Infantis 4 19:55: Daily, # Her carrizales MG Oral 00 28 cap, 0 Capsule Refill(s) [Align] azithromyci Yes See Memori a n 250 mg - Instructio l oral tablet 19:55: ns, Take 2 Conrad 00 tablets by mouth the first day then 1 tablet by mouth daily on days 2-5., # 6 tab, 0 Refill(s) folic acid Yes [id number] Take by [facility] (FA-8) 0.8 8-16 mouth. ity of mg Cap 13:45: [address] Magnesium Yes [id number] 500mg Take 500 [facility] 250 mg Tab 8-16 mg by ity of 13:45: mouth. [address] aspirin 81 Yes 81mg Take 81 mg U nivers mg EC 8-16 by mouth ity of tablet 13:45: daily. [address] CALCIUM 2019-0 Yes Take by Univer s CITRATE 8-16 mouth. ity of ORAL 13:45: [address] folic acid 2019-0 Yes [id number] Take by Univers (FA-8) 0.8 8-16 mouth. ity of mg Cap 13:45: [address] Magnesium 2019-0 Yes [id number] 500mg Take 500 [facility] 250 mg Tab 8-16 mg by ity of 13:45: mouth. [address] aspirin 81 20190 Yes 81mg Take 81 mg U nivers mg EC 8-16 by mouth ity of tablet 13:45: daily. [address] CALCIUM 2018-0 Yes Take by Univer s CITRATE 8-16 mouth. ity of ORAL 13:45: [address] folic acid 2019-0 Yes [id number] Take by Univers (FA-8) 0.8 8-16 mouth. ity of mg Cap 13:45: [address] Magnesium 2018- Yes [id number] 500mg Take 500 [facility] 250 mg Tab 8-16 mg by ity of 13:45: mouth. [address] aspirin 81 0 Yes 81mg Take 81 mg U nivers mg EC 8-16 by mouth ity of tablet 13:45: daily. [address] CALCIUM 2018-0 Yes Take by Univer s CITRATE 8-16 mouth. ity of ORAL 13:45: [address] folic acid 2019-0 Yes [id number] Take by Univers (FA-8) 0.8 8-16 mouth. ity of mg Cap 13:45: [address] Magnesium 2019-0 Yes [id number] 500mg Take 500 [facility] 250 mg Tab 8-16 mg by ity of 13:45: mouth. [address] aspirin 81 2018-0 Yes 81mg Take 81 mg U nivers mg EC 8-16 by mouth ity of tablet 13:45: daily. [address] CALCIUM 2019-0 Yes Take by Univer s CITRATE 8-16 mouth. ity of ORAL 13:45: [address] folic acid 2019-0 Yes [id number] Take by Univers (FA-8) 0.8 8-16 mouth. ity of mg Cap 13:45: [address] Magnesium 2019-0 Yes [id number] 500mg Take 500 [facility] 250 mg Tab 8-16 mg by ity of 13:45: mouth. [address] aspirin 81 2019 Yes 81mg Take 81 mg U nivers mg EC 8-16 by mouth ity of tablet 13:45: daily. [address] CALCIUM 2019-0 Yes Take by Univer s CITRATE 8-16 mouth. ity of ORAL 13:45: [address] folic acid 2019 Yes [id number] Take by Univers (FA-8) 0.8 8-16 mouth. ity of mg Cap 13:45: [address] Magnesium 2018- Yes [id number] 500mg Take 500 [facility] 250 mg Tab 8-16 mg by ity of 13:45: mouth. [address] aspirin 81 Yes 81mg Take 81 mg U nivers mg EC 8-16 by mouth ity of tablet 13:45: daily. [address] CALCIUM Yes Take by Univer s CITRATE 8-16 mouth. ity of ORAL 13:45: [address] folic acid Yes [id number] Take by Univers (FA-8) 0.8 8-16 mouth. ity of mg Cap 13:45: [address] Magnesium 2018- Yes [id number] 500mg Take 500 [facility] 250 mg Tab 8-16 mg by ity of 13:45: mouth. [address] aspirin 81 Yes 81mg Take 81 mg U nivers mg EC 8-16 by mouth ity of tablet 13:45: daily. [address] CALCIUM 2018- Yes Take by Univer s CITRATE 8-16 mouth. ity of ORAL 13:45: [address] folic acid 2019- Yes [id number] Take by Univers (FA-8) 0.8 8-16 mouth. ity of mg Cap 13:45: [address] Magnesium 2019-0 Yes [id number] 500mg Take 500 [facility] 250 mg Tab 8-16 mg by ity of 13:45: mouth. [address] aspirin 81 Yes 81mg Take 81 mg U nivers mg EC 8-16 by mouth ity of tablet 13:45: daily. [address] CALCIUM 2019- Yes Take by Univer s CITRATE 8-16 mouth. ity of ORAL 13:45: [address] folic acid 2019-0 Yes [id number] Take by Univers (FA-8) 0.8 8-16 mouth. ity of mg Cap 13:45: [address] Magnesium 2019-0 Yes [id number] 500mg Take 500 [facility] 250 mg Tab 8-16 mg by ity of 13:45: mouth. [address] aspirin 81 Yes 81mg Take 81 mg U nivers mg EC 8-16 by mouth ity of tablet 13:45: daily. [address] CALCIUM 2019-0 Yes Take by Univer s CITRATE 8-16 mouth. ity of ORAL 13:45: [address] folic acid 2019- Yes [id number] Take by Univers (FA-8) 0.8 8-16 mouth. ity of mg Cap 13:45: [address] Magnesium 2019- Yes [id number] 500mg Take 500 [facility] 250 mg Tab 8-16 mg by ity of 13:45: mouth. [address] aspirin 81 Yes 81mg Take 81 mg U nivers mg EC 8-16 by mouth ity of tablet 13:45: daily. [address] CALCIUM 2018- Yes Take by Univer s CITRATE 8-16 mouth. ity of ORAL 13:45: [address] folic acid 2019- Yes [id number] Take by Univers (FA-8) 0.8 8-16 mouth. ity of mg Cap 13:45: [address] Magnesium 2019- Yes [id number] 500mg Take 500 [facility] 250 mg Tab 8-16 mg by ity of 13:45: mouth. [address] aspirin 81 2019 Yes 81mg Take 81 mg U nivers mg EC 8-16 by mouth ity of tablet 13:45: daily. [address] CALCIUM 2019-0 Yes Take by Univer s CITRATE 8-16 mouth. ity of ORAL 13:45: [address] folic acid 2019-0 Yes [id number] Take by Univers (FA-8) 0.8 8-16 mouth. ity of mg Cap 13:45: [address] Magnesium 2019- Yes [id number] 500mg Take 500 [facility] 250 mg Tab 8-16 mg by ity of 13:45: mouth. [address] aspirin 81 2019-0 Yes 81mg Take 81 mg U nivers mg EC 8-16 by mouth ity of tablet 13:45: daily. [address] CALCIUM 2019- Yes Take by Univer s CITRATE 8-16 mouth. ity of ORAL 13:45: [address] folic acid 2019- Yes [id number] Take by Univers (FA-8) 0.8 8-16 mouth. ity of mg Cap 13:45: [address] Magnesium 2019- Yes [id number] 500mg Take 500 [facility] 250 mg Tab 8-16 mg by ity of 13:45: mouth. [address] aspirin 81 0 Yes 81mg Take 81 mg U nivers mg EC 8-16 by mouth ity of tablet 13:45: daily. [address] CALCIUM 2019- Yes Take by Univer s CITRATE 8-16 mouth. ity of ORAL 13:45: [address] folic acid 2019- Yes [id number] Take by Univers (FA-8) 0.8 8-16 mouth. ity of mg Cap 13:45: [address] Magnesium 2019- Yes [id number] 500mg Take 500 [facility] 250 mg Tab 8-16 mg by ity of 13:45: mouth. [address] aspirin 81 2018- Yes 81mg Take 81 mg U nivers mg EC 8-16 by mouth ity of tablet 13:45: daily. [address] CALCIUM 2019-0 Yes Take by Univer s CITRATE 8-16 mouth. ity of ORAL 13:45: [address] folic acid 2019- Yes [id number] Take by [facility] (FA-8) 0.8 8-16 mouth. ity of mg Cap 13:45: [address] folic acid 2019-0 Yes [id number] Take by [facility] (FA-8) 0.8 8-16 mouth. ity of mg Cap 13:45: [address] CALCIUM 2017-0 Yes Take by Univer s CITRATE 7-11 mouth. ity of ORAL 18:20: [address] aspirin 81 2017-0 Yes 81mg Take 81 mg U nivers mg EC 7-11 by mouth ity of tablet 18:20: daily. [address] aspirin 81 2017-0 No Notes: Do Me moria mg tablet, 3-07 not crush l enteric 15:00: or chew. [place] n coated 00 (Same As: Ecotrin) clopidogrel No 75 mg, Arturo sony 307 Route: PO, l 15:00: Drug form: Conrad 00 TAB, Daily, Dosing Weight 64.545, kg, Start date: 10/29/16 9:00:00 ENVIRONMENTAL OFFICER, Duration: 30 day, Stop date: 11/27/16 9:00:00 CDT Magnesium No Notes: Memori a Oxide 10-29 (Same as: l 15:00: Mag-Ox 400) Magnesium oxide [id number] g elemental magnesium Dose=____m g magnesium oxide (___mg elemental magnesium) Folic Acid No 0.8 mg, 2 Me moria 3-07 tab, l 15:00: Route: PO, Drug form: TAB, Daily, Dosing Weight 64.545, kg, Start date: 10/29/16 9:00:00 ENVIRONMENTAL OFFICER, Duration: 30 day, Stop date: 11/27/16 9:00:00 CDT ferrous No 325 mg, 1 Memor ia sulfate - tab, l 15:00: Route: PO, Drug form: ECTAB, Daily, Dosing Weight 64.545, kg, Start date: 10/29/16 9:00:00 ENVIRONMENTAL OFFICER, Duration: 30 day, Stop date: 11/27/16 9:00:00 [...] Weight 64.545, kg, Start date: 10/29/16 6:30:00 ENVIRONMENTAL OFFICER, Duration: 30 day, Stop date: 11/27/16 6:30:00 CDT Ticagrelor No Notes: Memor ia 3-07 (Same as: l 12:00: Brilinta) [place] 00 ticagrelor No Notes: Memor ia 3-07 (Same as: l 04:00: Brilinta) [place] 00 Saline No Notes: Memoria Flush 0.9% 3-07 (Same as: l 03:00: BD Conrad Posiflush) Brilinta No 60 mg, Memoria 10-29 Route: PO, l 03:00: Drug form: Conrad 00 TAB, Q12H, Dosing Weight 64.545, kg, Start date: 10/28/16 21:00:00 ENVIRONMENTAL OFFICER, Duration: 30 day, Stop date: 11/27/16 9:00:00 CDT Phenergan No Notes: Do Mem oria 10-29 not give l 01:52: IV push. Conrad 00 (Same as: Phenergan) Hydralazine No Notes: Arturo sony 10-29 (Same as: l 00:36: Apresoline ) Push over 5 minutes Saline No Notes: Memoria Flush 0.9% 10-28 (Same as: l 23:59: BD Conrad 00 Posiflush) clopidogrel No 300 mg, Mem oria 10-28 Route: PO, l 23:59: Drug form: [place] 00 TAB, ONCE, Dosing Weight 64.545, kg, Priority: NOW, Start date: 10/28/16 17:59:00 ENVIRONMENTAL OFFICER, Stop date: 10/28/16 17:59:00 ENVIRONMENTAL OFFICER Nitroglycer No Notes: Arturo sony in 10-28 (Same l 23:59: as:Nitroqu ick, Nitrostat) "Do Not Crush" Sublingual tablet Acetaminoph No Notes: Do M emoria en 10-28 not exceed l 23:59: 4 gm/day. Conrad 00 (Same as: Tylenol) Sodium No 25 mL, Memoria Chloride 10-28 Rate: 20 l 0.154 23:59: ml/hr, [place] MEQ/ML 00 Infuse Injectable over: 1.3 Solution hr, Route: IV, Dosing Weight 64.545 kg, Total Volume: 25, Start date: 10/28/16 17:59:00 ENVIRONMENTAL OFFICER, Duration: 24 hr, Stop date: 10/29/16 17:58:00 ENVIRONMENTAL OFFICER Midodrine No 2.5 mg, Memor ia 10-28 Route: PO, l 23:00: Drug form: [place] 00 TAB, TID, Dosing Weight 64.545, kg, Start date: 10/28/16 17:00:00 ENVIRONMENTAL OFFICER, Duration: 30 day, Stop date: 11/27/16 13:00:00 CDT oxybutynin No Notes: Memor ia 10-28 Same as: l 23:00: Ditropan) Conrad 00 Triamcinolo No Notes: Arturo sony ne 10-28 (Same As: l Acetonide 23:00: Kenalog) Herm angela 0.001 MG/MG 00 Topical Ointment lansoprazol No Notes: Arturo sony e 10-28 Take 1 l 22:30: hour [place] 00 before or 2 hours after meal; Expires in 14 days. Shake well before use. (Same as:Prevmichelle d) Compound ed Product - formulatio n not commercial ly available* * aspirin 81 Yes 81 mg, PO, M emoria mg tablet, 06 Daily, # l enteric 22:09: 120 tab, 0 Herm angela coated 00 Refill(s) ticagrelor Yes 60 mg, PO, M emoria 60 mg oral 10-28 Q12H, # 60 l tablet 22:09: tab, 0 Conrad 00 Refill(s) Nitroglycer No 0.4 mg, 1 M emoria in 10-28 tab, l 22:00: Route: SL, Conrad 00 Drug form: TAB, Q5Min, Dosing Weight 64.545, kg, PRN Chest Pain, Start date: 10/28/16 16:00:00 ENVIRONMENTAL OFFICER, Duration: 3 doses or times, Stop date: Limited # of times Sodium No 750 mL, Memoria Chloride 10-28 Rate: 75 l 0.154 22:00: ml/hr, Conrad MEQ/ML 00 Infuse Injectable over: 10 Solution hr, Route: IV, Dosing Weight 64.545 kg, Total Volume: 750, Start date: 10/28/16 16:00:00 ENVIRONMENTAL OFFICER, Duration: 10 hr, Stop date: 10/29/16 1:59:00 ENVIRONMENTAL OFFICER ferrous Yes 325 mg = 1 Arturo sony sulfate 325 3-06 tab, PO, l mg oral 19:32: Daily, # Galen n enteric 00 30 tab, 0 coated Refill(s) tablet pantoprazol Yes = 1 Pack, M jimyria e 40 MG 3-06 PO, Daily, l Granules 19:32: # 30 ea, 0 Her carrizales [Protonix] 00 Refill(s) Sodium No 1,000 mL, Memori a Chloride 10-28 Rate: 75 l 0.154 19:25: ml/hr, [place] MEQ/ML 00 Infuse Injectable over: 13.3 Solution hr, Route: IV, Dosing Weight 64.545 kg, Total Volume: 1,000, Start date: 10/28/16 13:25:00 ENVIRONMENTAL OFFICER, Duration: 30 day, Stop date: 11/27/16 13:24:00 CDT Sodium No 250 mL, Memoria Chloride 10-28 Rate: 250 l 0.154 19:24: ml/hr, Conrad MEQ/ML 00 Infuse Injectable over: 1 Solution hr, Route: IV, Dosing Weight 64.545 kg, Total Volume: 250, Start date: 10/28/16 13:24:00 ENVIRONMENTAL OFFICER, Duration: 30 day, Stop date: 11/27/16 14:23:00 CDT midodrine Yes 2.5 mg = 1 Me moria 2.5 mg oral 04-26 tab, PO, l tablet 16:05: TID, # 90 Galen n 00 tab, 0 Refill(s) non-formula Yes 2.5 mg =, Nyasia emoria ry 04-26 PO, BID, # l 16:05: 60, Conrad 00 Refill(s) 0, MISC Maalox No Notes: Memoria Advanced 04-26 (aluminum l Regular 08:55: hydroxide- Herm angela Strength 00 magnesium SUSP hyd-simeth icone 200-200-20 mg/5ml 30 ml ud TRICIA) Sertraline No Sertraline M emoria 25 mg 04-26 25 mg l tablet 02:00: tablet, [place] 00 0.5 tab, Drug form: MISC, Route: PO, Bedtime, 04/25/16 21:00:00 CDT, Duration: 30 day, Stop date: 05/24/16 21:00:00 CDT potassium No Notes: Memori a chloride 04-25 (Same as: l 14:30: Potassium Chloride) Mag-Ox 400 No 500 mg, Arturo sony 04-25 Route: PO, l 14:00: Drug form: Conrad 00 TAB, Daily, Dosing Weight 68.636, kg, Start date: 04/25/16 9:00:00 CDT, Duration: 30 day, Stop date: 05/24/16 9:00:00 CDT Sertraline No Sertraline M emoria 25 mg 04-25 25 mg l tablet 02:00: tablet, Conrad 00 0.5 tab, Drug form: MISC, Route: PO, Bedtime, 04/24/16 21:00:00 CDT, Duration: 30 day, Stop date: 05/23/16 21:00:00 CDT oxybutynin No Notes: Memor ia 04-24 Same as: l 22:00: Ditropan) Pindolol No 2.5 mg, Memori a 8-31 Route: PO, l 22:00: Drug form: Conrad 00 TAB, BID, Dosing Weight 68.636, kg, Start date: 04/24/16 17:00:00 CDT, Duration: 30 day, Stop date: 05/24/16 9:00:00 CDT oxybutynin No 5 mg, Memori a extended 831 Route: PO, l release 22:00: Drug form: Herm angela 00 ERTAB, BID, Dosing Weight 68.636, kg, Start date: 04/24/16 17:00:00 CDT, Duration: 30 day, Stop date: 05/24/16 9:00:00 CDT pindolol 5 No pindolol 5 M emoria mg tab 8-31 mg tab, l 18:00: 2.5 mg, Conrad 00 0.5 tab, Drug form: MISC, Route: PO, BID, 04/24/16 13:00:00 CDT, Duration: 30 day, Stop date: 05/24/16 9:00:00 CDT Midodrine No Notes: Memori a 8-31 (Same l 18:00: as:Proamat [place] 00 ine) bisoprolol No Notes: Memor ia 831 (Same As: l 16:30: Zebeta) Conrad 00 2.5 mg = 1/2 x 5 mg tab Keflex No Notes: Memoria 8-31 Take on l 14:00: empty Conrad stomach. (Same As: Keflex) Vitamin D3 No Notes: Memor ia 831 Same as : l 14:00: Vitamin D3 Conrad 00 Folic Acid No 0.8 mg, 2 Me moria 04-24 tab, l 14:00: Route: PO, [place] 00 Drug form: TAB, Daily, Dosing Weight [...] Sertraline No Sertraline M emoria 25 mg 831 25 mg l tablet 14:00: tablet, [place] 00 0.5 tab, Drug form: MISC, Route: PO, Daily, 04/24/16 9:00:00 CDT, Duration: 30 day, Stop date: 05/23/16 9:00:00 CDT Sertraline No 12.5 mg, Mem oria 831 Route: PO, l 14:00: Drug form: [place] 00 TAB, Daily, Dosing Weight 68.636, kg, Start date: 04/24/16 9:00:00 CDT, Duration: 30 day, Stop date: 05/23/16 9:00:00 CDT Potassium No 10 mEq, 1 Mem oria Chloride 10 04-24 tab, l MEQ 14:00: Route: PO, Conrad Extended Drug form: Release ERTAB, Tablet Daily, Dosing Weight 68.636, kg, Start date: 04/24/16 9:00:00 CDT, Duration: 30 day, Stop date: 05/23/16 9:00:00 CDT Mag-Ox 400 No Notes: Memor ia 8-31 (Same as: l 11:53: Mag-Ox Conrad 00 400) Magnesium oxide 881cc=131i g elemental magnesium Dose=____m g magnesium oxide (___mg elemental magnesium) Hydralazine No Notes: Arturo sony 8-30 (Same as: l 09:51: Apresoline [place] 00 ) Push over 5 minutes hydrALAZINE No Notes: Arturo sony 8-30 (Same as: l 08:32: Apresoline [place] ) Push over 5 minutes Hydralazine No Notes: Arturo sony 8-30 (Same as: l 08:09: Apresoline Conrad ) Push over 5 minutes Ramipril No Notes: Memoria 8-30 (Same l 07:08: as:Altace) [place] 00 24 HR No Notes: Memoria Nifedipine [...] 8-29 Not Crush) l 14:00: Do not Conrad 00 crush or chew. Thyroxine No Notes: Memori a 8-29 Take 1 l 11:30: hour [place] 00 before or 2 hours after meal; Enteral feeds may interefere with the absorption of this medication . (Same as:Synthro id, Levothroid ) heparin No Notes: Memoria 04-22 porcine l 05:00: heparin Conrad 00 Ramipril No Notes: Memoria 04-22 (Same l 03:10: as:Altace) Conrad 00 Phenergan No Notes: Memori a 04-22 (Same as: l 02:37: Phenergan) [place] 00 6.25 mg = 1/2 x 12.5 [...] = 1 Mem oria 2.5 mg oral 8-29 cap, PO, l capsule 02:36: Daily, 0 Galne n 00 Refill(s) folic acid Yes 0.8 mg = 1 M emoria 0.8 mg oral 8-29 tab, PO, l tablet 02:36: Daily, 0 [place] 00 Refill(s) Cephalexin Yes 500 mg = 1 M emoria 500 MG Oral 8-29 cap, PO, l Capsule 02:36: Daily, # Gal[place] n [Keflex] 00 40 cap, 0 Refill(s) sertraline Yes See Memoria 25 mg oral 8-29 Instructio l tablet 02:36: ns, 0.5 [place] 00 tab PO Daily 30 day, 1 Refill(s) Aspirin 325 Yes 325 mg = 1 Memoria MG Oral 8-29 tab, PO, l Tablet 02:36: Daily, # Conrad 00 30 tab, 0 Refill(s) potassium Yes 15 mEq = 1 Me moria citrate 15 8-29 tab, PO, l MEQ 02:36: Daily, 0 [place] Extended 00 Refill(s) Release Tablet [Urocit-K] Probiotic Yes 1 cap, PO, Me moria Formula 8-29 Daily, 0 l oral 02:36: Refill(s) Conrad capsule 00 24 HR No 30 mg = 1 Memoria Nifedipine 8-29 tab, PO, l 30 MG 02:36: PRN, # 30 Conrad Extended 00 tab, 0 Release Refill(s) Tablet magnesium Yes 500 mg = 1 Me moria oxide 500 8-29 tab, PO, l mg oral 02:36: Daily, # [place] n tablet 00 10 tab, 0 Refill(s) ramipril 5 No 5 mg = 1 Mem oria mg oral 829 cap, PO, l capsule 02:36: PRN, # 30 Mela nn 00 cap, 1 Refill(s) Docusate No Notes: Memoria 04-22 (Same as: l 02:32: Colace) [place] (Do Not Crush) Acetaminoph No Notes: Do M emoria en 04-22 not exceed l 02:32: 4 gm/day. [place] (Same as: Tylenol) Vitamin D3 Yes 0 Memoria 04-22 Refill(s) l 01:37: Levothyroxi Yes 75 Memori a ne Sodium 04-22 microgram l 0.075 MG 01:37: = 1 tab, Mela nn Oral Tablet 00 PO, Daily, [Synthroid] 0 Refill(s) oxybutynin No 5 mg = 1 Mem oria 5 mg oral 8-29 tab, PO, l tablet, 01:37: BID, # 30 Mela nn extended 00 tab, 0 release Refill(s) Cephalexin No 500 mg = 1 M emoria 500 MG Oral 829 cap, PO, l Capsule 01:37: QID, # 40 Mela nn [Keflex] 00 cap, 0 Refill(s) Magnesium Yes [id number] 500mg Take 500 Univers 250 mg Tab 3-14 mg by ity of 20:10: mouth. [address] Branch cephALEXin Yes Univers (KEFLEX) 1-19 ity of 500 mg 00:00: [place] capsule 00 [facility] Branch oxybutynin 2016-0 Yes Univers XL 1-19 ity of (DITROPAN-X 00:00: [place] L) 5 mg 24 00 Medical hr tablet Branch cephALEXin [id number] Yes Univers (KEFLEX) 1-19 ity of 500 mg 00:00: [place] capsule 00 Medical Branch oxybutynin 2016-0 Yes Univers XL 1-19 ity of (DITROPAN-X 00:00: [place] L) 5 mg 24 00 Medical hr tablet Branch cephALEXin [id number] Yes Univers (KEFLEX) 1-19 ity of 500 mg 00:00: [place] capsule 00 Medical Branch oxybutynin 20160 Yes Univers XL 1-19 ity of (DITROPAN-X 00:00: [place] L) 5 mg 24 00 Medical hr tablet Branch cephALEXin 2015-0 Yes Univers (KEFLEX) 1-19 ity of 500 mg 00:00: [place] capsule 00 Medical Branch oxybutynin 20160 Yes Univers XL 1-19 ity of (DITROPAN-X 00:00: [place] L) 5 mg 24 00 Medical hr tablet Branch cephALEXin 2015-0 Yes Univers (KEFLEX) 1-19 ity of 500 mg 00:00: [place] capsule 00 Medical Branch oxybutynin 0 Yes Univers XL 1-19 ity of (DITROPAN-X 00:00: [place] L) 5 mg 24 00 Medical hr tablet Branch cephALEXin 2015-0 Yes Univers (KEFLEX) 1-19 ity of 500 mg 00:00: [place] capsule 00 Medical Branch oxybutynin 2015-0 Yes Univers XL 1-19 ity of (DITROPAN-X 00:00: [place] L) 5 mg 24 00 Medical hr tablet Branch cephALEXin 0 Yes Univers (KEFLEX) 1-19 ity of 500 mg 00:00: [place] capsule 00 Medical Branch oxybutynin 2015-0 Yes Univers XL 1-19 ity of (DITROPAN-X 00:00: [place] L) 5 mg 24 00 Medical hr tablet Branch cephALEXin 2015-0 Yes Univers (KEFLEX) 1-19 ity of 500 mg 00:00: [place] capsule 00 Medical Branch oxybutynin 0 Yes Univers XL 1-19 ity of (DITROPAN-X 00:00: [place] L) 5 mg 24 00 Medical hr tablet Branch cephALEXin 0 Yes Univers (KEFLEX) 1-19 ity of 500 mg 00:00: [place] capsule 00 Medical Branch oxybutynin 2016-0 Yes Univers XL 1-19 ity of (DITROPAN-X 00:00: [place] L) 5 mg 24 00 Medical hr tablet Branch cephALEXin 2016-0 Yes Univers (KEFLEX) 1-19 ity of 500 mg 00:00: [place] capsule 00 Medical Branch oxybutynin 2016-0 Yes Univers XL 1-19 ity of (DITROPAN-X 00:00: [place] L) 5 mg 24 00 Medical hr tablet Branch cephALEXin [id number] Yes Univers (KEFLEX) 1-19 ity of 500 mg 00:00: [place] capsule 00 Medical Branch oxybutynin 2016-0 Yes Univers XL 1-19 ity of (DITROPAN-X 00:00: [place] L) 5 mg 24 00 Medical hr tablet Branch cephALEXin 2016-0 Yes Univers (KEFLEX) 1-19 ity of 500 mg 00:00: [place] capsule 00 Medical Branch oxybutynin 2016-0 Yes Univers XL 1-19 ity of (DITROPAN-X 00:00: [place] L) 5 mg 24 00 Medical hr tablet Branch cephALEXin 2016-0 Yes Univers (KEFLEX) 1-19 ity of 500 mg 00:00: [place] capsule 00 Medical Branch oxybutynin 2016-0 Yes Univers XL 1-19 ity of (DITROPAN-X 00:00: [place] L) 5 mg 24 00 Medical hr tablet Branch cephALEXin 2016-0 Yes Univers (KEFLEX) 1-19 ity of 500 mg 00:00: [place] capsule 00 Medical Branch oxybutynin 2016-0 Yes Univers XL 1-19 ity of (DITROPAN-X 00:00: [place] L) 5 mg 24 00 Medical hr tablet Branch cephALEXin 2016-0 Yes Univers (KEFLEX) 1-19 ity of 500 mg 00:00: [place] capsule 00 Medical Branch oxybutynin 2016-0 Yes Univers XL 1-19 ity of (DITROPAN-X 00:00: [place] L) 5 mg 24 00 Medical hr tablet Branch cephALEXin [id number] Yes Univers (KEFLEX) 1-19 ity of 500 mg 00:00: [place] capsule 00 Medical Branch oxybutynin 2016-0 Yes Univers XL 1-19 ity of (DITROPAN-X 00:00: [place] L) 5 mg 24 00 Medical hr tablet Branch cephALEXin 2016-0 Yes Univers (KEFLEX) 1-19 ity of 500 mg 00:00: [place] capsule 00 Medical Branch oxybutynin 2016-0 Yes Univers XL 1-19 ity of (DITROPAN-X 00:00: [place] L) 5 mg 24 00 Medical hr tablet Branch cephALEXin 2016-0 Yes Univers (KEFLEX) 1-19 ity of 500 mg 00:00: [place] capsule 00 Medical Branch oxybutynin 2016-0 Yes Univers XL 1-19 ity of (DITROPAN-X 00:00: [place] L) 5 mg 24 00 Medical hr tablet Branch cephALEXin 2016-0 Yes Univers (KEFLEX) 1-19 ity of 500 mg 00:00: [place] capsule 00 Medical Branch oxybutynin 2016-0 Yes Univers XL 1-19 ity of (DITROPAN-X 00:00: [place] L) 5 mg 24 00 Medical hr tablet Branch cephALEXin 2016-0 Yes Univers (KEFLEX) 1-19 ity of 500 mg 00:00: [place] capsule 00 Medical Branch oxybutynin 2016-0 Yes Univers XL 1-19 ity of (DITROPAN-X 00:00: [place] L) 5 mg 24 00 Medical hr tablet Branch cephALEXin 2016-0 Yes Univers (KEFLEX) 1-19 ity of 500 mg 00:00: [place] capsule 00 Medical Branch oxybutynin 2016-0 Yes Univers XL 1-19 ity of (DITROPAN-X 00:00: [place] L) 5 mg 24 00 Medical hr tablet Branch cephALEXin 2016-0 Yes Univers (KEFLEX) 1-19 ity of 500 mg 00:00: [place] capsule 00 Medical Branch oxybutynin 2016-0 Yes Univers XL 1-19 ity of (DITROPAN-X 00:00: [place] L) 5 mg 24 00 Medical hr tablet Branch cephALEXin 2016-0 Yes Univers (KEFLEX) 1-19 ity of 500 mg 00:00: [place] capsule 00 Medical Branch oxybutynin 2016-0 Yes Univers XL 1-19 ity of (DITROPAN-X 00:00: [place] L) 5 mg 24 00 Medical hr tablet Branch cephALEXin 2016-0 Yes [facility] (KEFLEX) 1-19 ity of 500 mg 00:00: [place] capsule 00 [facility] oxybutynin 0 Yes [facility] XL 1-19 ity of (DITROPAN-X 00:00: [place] L) 5 mg 24 00 Medical hr tablet Branch cephALEXin Yes [facility] (KEFLEX) 1-19 ity of 500 mg 00:00: [place] capsule 00 [facility] oxybutynin 0 Yes [facility] XL 1-19 ity of (DITROPAN-X 00:00: [place] L) 5 mg 24 00 Medical hr tablet Branch cephALEXin Yes [facility] (KEFLEX) 1-19 ity of 500 mg 00:00: [place] capsule 00 [facility] oxybutynin Yes [facility] XL 1-19 ity of (DITROPAN-X 00:00: [place] L) 5 mg 24 00 Medical hr tablet Branch cephALEXin Yes [facility] (KEFLEX) 1-19 ity of 500 mg 00:00: [place] capsule 00 [facility] oxybutynin Yes [facility] XL 1-19 ity of (DITROPAN-X 00:00: [place] L) 5 mg 24 00 Medical hr tablet Branch cephALEXin Yes [facility] (KEFLEX) 1-19 ity of 500 mg 00:00: [place] capsule 00 [facility] oxybutynin Yes [facility] XL 1-19 ity of (DITROPAN-X 00:00: [place] L) 5 mg 24 00 Medical hr tablet Branch folic acid 0 Yes [id number] Take by [facility] (FA-8) 0.8 9-28 mouth. ity of mg Cap 17:57: [place] 49 [facility] SERTraline 0 Yes [id number] 12.5mg 12.5 mg. Univers (ZOLOFT) 25 9-23 ity of mg tablet 00:00: [place] [facility] SYNTHROID 0 Yes [id number] Univ ers 75 mcg 9-23 ity of tablet 00:00: [facility] SERTraline 0 Yes [id number] 12.5mg 12.5 mg. Univers (ZOLOFT) 25 9-23 ity of mg tablet 00:00: [place] [facility] SYNTHROID 0 Yes [id number] Univ ers 75 mcg 9-23 ity of tablet 00:00: [place] [facility] SERTraline 0 Yes [id number] 12.5mg 12.5 mg. Univers (ZOLOFT) 25 9-23 ity of mg tablet 00:00: [place] [facility] SYNTHROID 2014-0 Yes [id number] Univ ers 75 mcg 9-23 ity of tablet 00:00: [place] [facility] SERTraline 2015-0 Yes [id number] 12.5mg 12.5 mg. Univers (ZOLOFT) 25 9-23 ity of mg tablet 00:00: [place] [facility] SYNTHROID 2014-0 Yes [id number] Univ ers 75 mcg 9-23 ity of tablet 00:00: [place] [facility] SERTraline 2014-0 Yes [id number] 12.5mg 12.5 mg. Univers (ZOLOFT) 25 9-23 ity of mg tablet 00:00: [address] SYNTHROID 2014-0 Yes [id number] Univ ers 75 mcg 9-23 ity of tablet 00:00: [address] SERTraline 2014-0 Yes [id number] 12.5mg 12.5 mg. Univers (ZOLOFT) 25 9-23 ity of mg tablet 00:00: [address] SYNTHROID 2014-0 Yes [id number] Univ ers 75 mcg 9-23 ity of tablet 00:00: [address] SERTraline 2015-0 Yes [id number] 12.5mg 12.5 mg. Univers (ZOLOFT) 25 9-23 ity of mg tablet 00:00: [place] [facility] SYNTHROID 2015-0 Yes [id number] Univ ers 75 mcg 9-23 ity of tablet 00:00: [place] [facility] SERTraline 2015-0 Yes [id number] 12.5mg 12.5 mg. Univers (ZOLOFT) 25 9-23 ity of mg tablet 00:00: [place] [facility] SYNTHROID 2014-0 Yes [id number] Univ ers 75 mcg 9-23 ity of tablet 00:00: [place] [facility] SERTraline 2014-0 Yes [id number] 12.5mg 12.5 mg. Univers (ZOLOFT) 25 9-23 ity of mg tablet 00:00: [place] [facility] SYNTHROID 2014-0 Yes [id number] Univ ers 75 mcg 9-23 ity of tablet 00:00: [place] 00 [facility] SERTraline 2015-0 Yes [id number] 12.5mg 12.5 mg. [facility] (ZOLOFT) 25 9-23 ity of mg tablet 00:00: [place] 00 [facility] SYNTHROID 2015-0 Yes [id number] Univ ers 75 mcg 9-23 ity of tablet 00:00: [place] [address] [facility] Branch SERTraline 2015-0 Yes [id number] 12.5mg 12.5 mg. Univers (ZOLOFT) 25 9-23 ity of mg tablet 00:00: [place] [facility] SYNTHROID 2015-0 Yes [id number] Univ ers 75 mcg 9-23 ity of tablet 00:00: [place] [address] [facility] Branch SYNTHROID 2015-0 Yes [id number] Univ ers 75 mcg 9-23 ity of tablet 00:00: [place] [address] [facility] Branch SYNTHROID 2015-0 Yes [id number] Univ ers 75 mcg 9-23 ity of tablet 00:00: [place] [address] [facility] SYNTHROID 2015-0 Yes [id number] Univ ers 75 mcg 9-23 ity of tablet 00:00: [place] [address] [facility] SYNTHROID 2015-0 Yes [id number] Univ ers 75 mcg 9-23 ity of tablet 00:00: [place] [address] [facility] SYNTHROID 2015-0 Yes [id number] Univ ers 75 mcg 9-23 ity of tablet 00:00: [place] [facility] SYNTHROID 2015-0 Yes [id number] Univ ers 75 mcg 9-23 ity of tablet 00:00: [place] [address] [facility] SYNTHROID 2015-0 Yes [id number] Univ ers 75 mcg 9-23 ity of tablet 00:00: [place] [facility] SYNTHROID 2015-0 Yes [id number] Univ ers 75 mcg 9-23 ity of tablet 00:00: [place] [facility] SYNTHROID 2015-0 Yes [id number] Univ ers 75 mcg 9-23 ity of tablet 00:00: [place] 00 [facility] SYNTHROID 2015-0 Yes [id number] Univ ers 75 mcg 9-23 ity of tablet 00:00: [place] [facility] SYNTHROID 2015-0 Yes [id number] Univ ers 75 mcg 9-23 ity of tablet 00:00: [place] [address] [facility] SYNTHROID 2015-0 Yes [id number] Univ ers 75 mcg 9-23 ity of tablet 00:00: [place] 00 [facility] SYNTHROID 2015-0 Yes [id number] Univ ers 75 mcg 9-23 ity of tablet 00:00: [place] 00 [facility] SYNTHROID 2015-0 Yes [id number] Univ ers 75 mcg 9-23 ity of tablet 00:00: [place] 00 [facility] SYNTHROID 2015-0 Yes [id number] Univ ers 75 mcg 9-23 ity of tablet 00:00: [place] 00 [facility] SYNTHROID 2015-0 Yes [id number] Univ ers 75 mcg 9-23 ity of tablet 00:00: [place] 00 [facility] SYNTHROID 2015-0 Yes [id number] Univ ers 75 mcg 9-23 ity of tablet 00:00: [place] 00 [facility] Immunizations Ordered Filled Immunization Date Status Comments [facility] e Immunization Name Name SARS-COV-2 COVID-19 2020-11-06 Completed Unive rsity of PFIZER VACCINE 00:00:00 [facility] SARS-COV-2 COVID-19 2020-11-06 Completed Unive rsity of PFIZER VACCINE 00:00:00 [facility] SARS-COV-2 COVID-19 2020-11-06 Completed Unive rsity of PFIZER VACCINE 00:00:00 [facility] SARS-COV-2 COVID-19 2020-11-06 Completed Unive rsity of PFIZER VACCINE 00:00:00 [facility] SARS-COV-2 COVID-19 2020-11-06 Completed Unive rsity of PFIZER VACCINE 00:00:00 [facility] SARS-COV-2 COVID-19 2020-11-06 Completed Unive rsity of PFIZER VACCINE 00:00:00 [facility] SARS-COV-2 COVID-19 2020-11-06 Completed Unive rsity of PFIZER VACCINE 00:00:00 [facility] SARS-COV-2 COVID-19 2020-11-06 Completed Unive rsity of PFIZER VACCINE 00:00:00 [facility] SARS-COV-2 COVID-19 2020-11-06 Completed Unive rsity of PFIZER VACCINE 00:00:00 [facility] SARS-COV-2 COVID-19 2020-11-06 Completed Unive rsity of PFIZER VACCINE 00:00:00 [facility] SARS-COV-2 COVID-19 2020-11-06 Completed Unive rsity of PFIZER VACCINE 00:00:00 [place] [facility] SARS-COV-2 COVID-19 2020-11-06 Completed Unive rsity of PFIZER VACCINE 00:00:00 [facility] SARS-COV-2 COVID-19 2020-11-06 Completed Unive rsity of PFIZER VACCINE 00:00:00 [facility] SARS-COV-2 COVID-19 2020-11-06 Completed Unive rsity of PFIZER VACCINE 00:00:00 [facility] SARS-COV-2 COVID-19 2020-11-06 Completed Unive rsity of PFIZER VACCINE 00:00:00 [facility] SARS-COV-2 COVID-19 2020-10-16 Completed Unive rsity of PFIZER VACCINE 00:00:00 [facility] SARS-COV-2 COVID-19 2020-10-16 Completed Unive rsity of PFIZER VACCINE 00:00:00 [facility] SARS-COV-2 COVID-19 2020-10-16 Completed Unive rsity of PFIZER VACCINE 00:00:00 [facility] SARS-COV-2 COVID-19 2020-10-16 Completed Unive rsity of PFIZER VACCINE 00:00:00 [facility] SARS-COV-2 COVID-19 2020-10-16 Completed Unive rsity of PFIZER VACCINE 00:00:00 [facility] SARS-COV-2 COVID-19 2020-10-16 Completed Unive rsity of PFIZER VACCINE 00:00:00 [facility] SARS-COV-2 COVID-19 2020-10-16 Completed Unive rsity of PFIZER VACCINE 00:00:00 [facility] SARS-COV-2 COVID-19 2020-10-16 Completed Unive rsity of PFIZER VACCINE 00:00:00 [facility] SARS-COV-2 COVID-19 2020-10-16 Completed Unive rsity of PFIZER VACCINE 00:00:00 [facility] SARS-COV-2 COVID-19 2020-10-16 Completed Unive rsity of PFIZER VACCINE 00:00:00 [facility] SARS-COV-2 COVID-19 2020-10-16 Completed Unive rsity of PFIZER VACCINE 00:00:00 [facility] SARS-COV-2 COVID-19 2020-10-16 Completed Unive rsity of PFIZER VACCINE 00:00:00 [facility] SARS-COV-2 COVID-19 2020-10-16 Completed Unive rsity of PFIZER VACCINE 00:00:00 [facility] SARS-COV-2 COVID-19 2020-10-16 Completed Unive rsity of PFIZER VACCINE 00:00:00 [facility] SARS-COV-2 COVID-19 2020-10-16 Completed Unive rsity of PFIZER VACCINE 00:00:00 [facility] Influenza High Dose 2019-06-03 Completed Unive rsity of 00:00:[address] [facility] Influenza High Dose 2019-06-03 Completed Unive rsity of 00:00:[address] [facility] Influenza High Dose 2019-06-03 Completed Unive rsity of 00:00:[address] [facility] Influenza High Dose 2019-06-03 Completed Unive rsity of 00:00:[address] [facility] Influenza High Dose 2019-06-03 Completed Unive rsity of 00:00:[address] [facility] Influenza High Dose 2019-06-03 Completed Unive rsity of 00:00:[address] [facility] Influenza High Dose 2019-06-03 Completed Unive rsity of 00:00:[address] [facility] Influenza High Dose 2019-06-03 Completed Unive rsity of 00:00:[address] [facility] Influenza High Dose 2019-06-03 Completed Unive rsity of 00:00:[address] [facility] Influenza High Dose 2019-06-03 Completed Unive rsity of 00:00:[address] [facility] Influenza High Dose 2019-06-03 Completed Unive rsity of 00:00:[address] [facility] Influenza High Dose 2019-06-03 Completed Unive rsity of 00:00:[address] [facility] Influenza High Dose 2019-06-03 Completed Unive rsity of 00:00:[address] [facility] Influenza High Dose 2019-06-03 Completed Unive rsity of 00:00:[address] [facility] Influenza High Dose 2019-06-03 Completed Unive rsity of 00:00:[address] [facility] Influenza High Dose 2019-06-03 Completed Unive rsity of 00:00:[address] [facility] Influenza High Dose 2019-06-03 Completed Unive rsity of 00:00:[address] [facility] Influenza High Dose 2019-06-03 Completed Unive rsity of 00:00:[address] [facility] Influenza High Dose 2019-06-03 Completed Unive rsity of 00:00:[address] [facility] Influenza High Dose 2019-06-03 Completed Unive rsity of 00:00:[address] [facility] Influenza High Dose 2019-06-03 Completed Unive rsity of 00:00:[address] [facility] Influenza High Dose 2019-06-03 Completed Unive rsity of 00:00:[address] [facility] Influenza High Dose 2019-06-03 Completed Unive rsity of 00:00:[address] [facility] Influenza High Dose 2019-06-03 Completed Unive rsity of 00:00:[address] [facility] Influenza High Dose 2019-06-03 Completed Unive rsity of 00:00:[address] [facility] Pneumococcal 13 2018-06-19 Completed Universit y of Conjugate, PCV13 00:00:00 [place] [facility] (Prevnar 13) Branch Pneumococcal 13 2018-06-19 Completed Universit y of Conjugate, PCV13 00:00:00 [place] [facility] (Prevnar 13) Branch Pneumococcal 13 2018-06-19 Completed Universit y of Conjugate, PCV13 00:00:00 [place] [facility] (Prevnar 13) Branch Pneumococcal 13 2018-06-19 Completed Universit y of Conjugate, PCV13 00:00:00 [place] [facility] (Prevnar 13) Branch Pneumococcal 13 2018-06-19 Completed Universit y of Conjugate, PCV13 00:00:00 [place] [facility] (Prevnar 13) Branch Pneumococcal 13 2018-06-19 Completed Universit y of Conjugate, PCV13 00:00:00 [place] [facility] (Prevnar 13) Branch Pneumococcal 13 2018-06-19 Completed Universit y of Conjugate, PCV13 00:00:00 [place] [facility] (Prevnar 13) Branch Pneumococcal 13 2018-06-19 Completed Universit y of Conjugate, PCV13 00:00:00 [place] [facility] (Prevnar 13) Branch Pneumococcal 13 2018-06-19 Completed Universit y of Conjugate, PCV13 00:00:00 [place] [facility] (Prevnar 13) Branch Pneumococcal 13 2018-06-19 Completed Universit y of Conjugate, PCV13 00:00:00 [place] [facility] (Prevnar 13) Branch Pneumococcal 13 2018-06-19 Completed Universit y of Conjugate, PCV13 00:00:00 [place] [facility] (Prevnar 13) Branch Pneumococcal 13 2018-06-19 Completed Universit y of Conjugate, PCV13 00:00:00 [place] [facility] (Prevnar 13) Branch Pneumococcal 13 2018-06-19 Completed Universit y of Conjugate, PCV13 00:00:00 [place] [facility] (Prevnar 13) Branch Pneumococcal 13 2018-06-19 Completed Universit y of Conjugate, PCV13 00:00:00 [place] [facility] (Prevnar 13) Branch Pneumococcal 13 2018-06-19 Completed Universit y of Conjugate, PCV13 00:00:00 [place] [facility] (Prevnar 13) Branch Pneumococcal 13 2018-06-19 Completed Universit y of Conjugate, PCV13 00:00:00 [place] [facility] (Prevnar 13) Branch Pneumococcal 13 2018-06-19 Completed Universit y of Conjugate, PCV13 00:00:00 [place] [facility] (Prevnar 13) Branch Pneumococcal 13 2018-06-19 Completed Universit y of Conjugate, PCV13 00:00:00 [place] [facility] (Prevnar 13) Branch Pneumococcal 13 2018-06-19 Completed Universit y of Conjugate, PCV13 00:00:00 [place] [facility] (Prevnar 13) Branch Pneumococcal 13 2018-06-19 Completed Universit y of Conjugate, PCV13 00:00:00 [place] [facility] (Prevnar 13) Branch Pneumococcal 13 2018-06-19 Completed Universit y of Conjugate, PCV13 00:00:00 [place] [facility] (Prevnar 13) Branch Pneumococcal 13 2018-06-19 Completed Universit y of Conjugate, PCV13 00:00:00 [place] [facility] (Prevnar 13) Branch Pneumococcal 13 2018-06-19 Completed Universit y of Conjugate, PCV13 00:00:00 [place] [facility] (Prevnar 13) Branch Pneumococcal 13 2018-06-19 Completed Universit y of Conjugate, PCV13 00:00:00 [place] [facility] (Prevnar 13) Branch Pneumococcal 13 2018-06-19 Completed Universit y of Conjugate, PCV13 00:00:00 [facility] dical (Prevnar 13) Branch Influenza High Dose 2016-09-03 Completed Unive rsity of 00:00:[address] [facility] Influenza High Dose 2016-09-03 Completed Unive rsity of 00:00:[address] [facility] Influenza High Dose 2016-09-03 Completed Unive rsity of 00:00:[address] [facility] Influenza High Dose 2016-09-03 Completed Unive rsity of 00:00:[address] [facility] Influenza High Dose 2016-09-03 Completed Unive rsity of 00:00:[address] [facility] Influenza High Dose 2016-09-03 Completed Unive rsity of 00:00:[address] [facility] Influenza High Dose 2016-09-03 Completed Unive rsity of 00:00:[address] [facility] Influenza High Dose 2016-09-03 Completed Unive rsity of 00:00:[address] [facility] Influenza High Dose 2016-09-03 Completed Unive rsity of 00:00:[address] [facility] Influenza High Dose 2016-09-03 Completed Unive rsity of 00:00:[address] [facility] Influenza High Dose 2016-09-03 Completed Unive rsity of 00:00:[address] [facility] Influenza High Dose 2016-09-03 Completed Unive rsity of 00:00:[address] [facility] Influenza High Dose 2016-09-03 Completed Unive rsity of 00:00:[address] [facility] Influenza High Dose 2016-09-03 Completed Unive rsity of 00:00:[address] [facility] Influenza High Dose 2016-09-03 Completed Unive rsity of 00:00:[address] [facility] Influenza High Dose 2016-09-03 Completed Unive rsity of 00:00:[address] [facility] Influenza High Dose 2016-09-03 Completed Unive rsity of 00:00:[address] [facility] Influenza High Dose 2016-09-03 Completed Unive rsity of 00:00:[address] [facility] Influenza High Dose 2016-09-03 Completed Unive rsity of 00:00:[address] [facility] Influenza High Dose 2016-09-03 Completed Unive rsity of 00:00:[address] [facility] Influenza High Dose 2016-09-03 Completed Unive rsity of 00:00:[address] [facility] Influenza High Dose 2016-09-03 Completed Unive rsity of 00:00:[address] [facility] Influenza High Dose 2016-09-03 Completed Unive rsity of 00:00:[address] [facility] Influenza High Dose 2016-09-03 Completed Unive rsity of 00:00:[address] [facility] Influenza High Dose 2016-09-03 Completed Unive rsity of 00:00:[address] [facility] Influenza High Dose 2016-09-03 Completed Unive rsity of 00:00:[address] [facility] Influenza High Dose 2016-09-03 Completed Unive rsity of 00:00:[address] [facility] Influenza High Dose 2016-09-03 Completed Unive rsity of 00:00:[address] [facility] Vital Signs Vital Name Observation Time Observation Value Comments Source Systolic blood 2021-10-25 14:57:00 168 mm[Hg] Univer sity of pressure [facility] Diastolic blood 2021-10-25 14:57:00 71 mm[Hg] Unive rsity of pressure [facility] Heart rate 2021-10-25 14:57:00 73 /min Universi ty of [facility] Body temperature 2021-10-25 14:57:[address] [facility] Respiratory rate 2021-10-25 14:57:00 19 /min Univ ersity of [facility] Body height 2021-10-25 14:57:00 160 [address] [facility] ty [address] [facility] Body weight 2021-10-25 14:57:[address] [facility] BMI 2021-10-25 14:57:00 21.26 kg/m2 Universi ty of [facility] Oxygen saturation in 2021-10-25 14:57:00 98 /min University of Arterial blood by [facility] Pulse oximetry Branch Systolic blood 2021-04-12 14:10:00 160 mm[Hg] Univer sity of pressure [facility] Diastolic blood 2021-04-12 14:10:00 80 mm[Hg] Unive rsity of pressure [facility] Heart rate 2021-04-12 14:10:00 74 /min Universi ty of [facility] Body temperature 2021-04-12 14:10:[address] 37[address] [address] [facility] Respiratory rate 2021-04-12 14:10:00 16 /min Univ ersity of [facility] Body height 2021-04-12 14:10:00 157.5 cm [facility]i ty [facility] [place] [facility] Body weight 2021-04-12 14:10:00 54.432 kg [facility]i ty [facility] [place] [facility] BMI 2021-04-12 14:10:00 21.95 kg/m2 Universi ty of [facility] Oxygen saturation in 2021-04-12 14:10:00 99 /min University of Arterial blood by [facility] Pulse oximetry Branch Systolic blood 2021-03-30 16:20:00 145 mm[Hg] Univer sity of pressure [place] [facility] Diastolic blood 2021-03-30 16:20:00 74 mm[Hg] Unive rsity of pressure [place] [facility] Heart rate 2021-03-30 16:20:00 71 /min Universi ty of [place] [facility] Body weight 2021-03-30 16:20:00 54.795 kg Universi ty of [place] [facility] BMI 2021-03-30 16:20:00 21.40 kg/m2 Universi ty of [place] [facility] Oxygen saturation in 2021-03-30 16:20:00 100 /min University of Arterial blood by [facility] Pulse oximetry Branch Systolic blood 2020-12-07 15:39:00 162 mm[Hg] Univer sity of pressure [place] [facility] Diastolic blood 2020-12-07 15:39:00 83 mm[Hg] Unive rsity of pressure [place] [facility] Heart rate 2020-12-07 15:39:00 97 /min Universi ty of [place] [facility] Respiratory rate 2020-12-07 15:39:00 26 /min Univ ersity of [place] [facility] Oxygen saturation in 2020-12-07 15:39:00 98 /min University of Arterial blood by [facility] Pulse oximetry Branch Body temperature 2020-12-07 15:04:00 36.33 [place] Univ ersity of [place] [facility] Body height 2020-11-30 18:07:00 160 cm Universi ty of [place] [facility] Body weight 2020-11-30 18:07:00 56.7 kg Universi ty of [place] [facility] BMI 2020-11-30 18:07:00 22.15 kg/m2 [facility]i [facility] [place] [facility] Systolic blood 2020-12-07 15:39:00 162 mm[Hg] Univer sity of pressure [place] [facility] Diastolic blood 2020-12-07 15:39:00 83 mm[Hg] Unive rsity of pressure [place] [facility] Heart rate 2020-12-07 15:39:00 97 /min Universi ty of [place] [facility] Respiratory rate 2020-12-07 15:39:00 26 /min Univ ersity of [place] [facility] Oxygen saturation in 2020-12-07 15:39:00 98 /min University of Arterial blood by [facility] Pulse oximetry Branch Body temperature 2020-12-07 15:04:00 36.[address] [facility] [address] of [facility] Body height 2020-11-30 18:07:00 160 cm [facility]i ty of [place] [facility] [place] Body weight 2020-11-30 18:07:[address] [facility] BMI 2020-11-30 18:07:00 22.15 kg/m2 Universi ty of [facility] Systolic blood 2020-03-31 16:34:00 140 mm[Hg] Univer sity of pressure [facility] Diastolic blood 2020-03-31 16:34:00 80 mm[Hg] Unive rsity of pressure [facility] Heart rate 2020-03-31 16:34:00 82 /min Universi ty of [facility] Respiratory rate 2020-03-31 16:34:00 16 /min Univ ersity of [facility] Body height 2020-03-31 16:34:00 157[address] [facility] Body weight 2020-03-31 16:34:00 62.415 kg Universi ty of [facility] BMI 2020-03-31 16:34:00 25.17 kg/m2 Universi ty of [facility] Systolic blood 2020-03-31 16:34:00 140 mm[Hg] Univer sity of pressure [facility] Diastolic blood 2020-03-31 16:34:00 80 mm[Hg] Unive rsity of pressure [facility] Heart rate 2020-03-31 16:34:00 82 /min Universi ty of [facility] Respiratory rate 2020-03-31 16:34:00 16 /min Univ ersity of [facility] Body height 2020-03-31 16:34:00 157[address] [facility] Body weight 2020-03-31 16:34:00 62.415 kg Universi ty of [facility] BMI 2020-03-31 16:34:00 25.17 kg/m2 Universi ty of [facility] Systolic blood 2019-10-15 17:38:00 135 mm[Hg] Univer sity of pressure [facility] Diastolic blood 2019-10-15 17:38:00 78 mm[Hg] Unive rsity of pressure [place] [facility] Heart rate 2019-10-15 17:38:00 74 /min Universi ty of [place] [facility] Respiratory rate 2019-10-15 17:38:00 18 /min [facility] Body height 2019-10-15 17:38:00 160 cm Universi ty [facility] [place] [facility] Body weight 2019-10-15 17:38:00 65.772 kg Universi ty [facility] BMI 2019-10-15 17:38:00 25.69 kg/m2 Universi ty [facility] Systolic blood 2019-04-09 13:42:00 144 mm[Hg] Univer sity of pressure [place] [facility] Diastolic blood 2019-04-09 13:42:00 82 mm[Hg] Unive rsity of pressure [place] [facility] Heart rate 2019-04-09 13:42:00 70 /min [facility]i ty [facility] [place] [facility] Respiratory rate 2019-04-09 13:42:00 16 /min [facility] Body height 2019-04-09 13:42:00 160 cm [facility]i ty [facility] [place] [facility] Body weight 2019-04-09 13:42:00 63.957 kg Universi ty [facility] BMI 2019-04-09 13:42:00 24.98 kg/m2 [facility] [place] [facility] Height 2020-08-23 14:57:00 160.02 cm [facility] Weight 2020-08-23 14:57:00 [facility] BMI Calculated 2020-08-23 14:57:00 [facility] Systolic (mm Hg) 2020-06-14 15:46:00 [facility] Diastolic (mm Hg) 2020-06-14 15:46:00 [facility] Heart Rate 2020-06-14 15:46:00 [facility] Height 2020-06-14 15:46:00 160.02 cm [facility] Weight 2020-06-14 15:46:00 [facility] BMI Calculated 2020-06-14 15:46:00 [facility] Systolic (mm Hg) 2019-06-02 17:15:00 [facility] Diastolic (mm Hg) 2019-06-02 17:15:00 [facility] Systolic (mm Hg) 2019-06-02 16:40:00 [facility] Diastolic (mm Hg) 2019-06-02 16:40:00 [facility] Systolic (mm Hg) 2019-06-02 16:10:00 [facility] Diastolic (mm Hg) 2019-06-02 16:10:00 [facility] Temperature Oral (F) 2019-06-02 11:36:00 98.4 F [facility] Height 2019-06-02 10:43:00 157.48 cm [facility] Weight 2019-06-02 10:43:00 [facility] BMI Calculated 2019-06-02 10:43:00 [facility] Systolic (mm Hg) 2019-05-05 19:46:00 [facility] Diastolic (mm Hg) 2019-05-05 19:46:00 [facility] Heart Rate 2019-05-05 19:46:00 [facility] Respitory Rate 2019-05-05 19:46:00 [facility] Height 2019-05-05 19:46:00 152.4 cm [facility] Weight 2019-05-05 19:46:00 [facility] BMI Calculated 2019-05-05 19:46:00 Memori al Atkinson Systolic (mm Hg) 2016-10-29 13:36:00 Arturo rial Atkinson Diastolic (mm Hg) 2016-10-29 13:36:00 Mem orial Conrad Systolic (mm Hg) 2016-10-29 10:30:00 Arturo rial Conrad Diastolic (mm Hg) 2016-10-29 10:30:00 Mem orial Atkinson Systolic (mm Hg) 2016-10-29 08:30:00 Arturo rial Conrad Diastolic (mm Hg) 2016-10-29 08:30:00 Mem orial Conrad Temperature Oral (F) 2016-10-29 05:00:00 96.6 F [facility] Temperature Oral (F) 2016-10-28 18:45:00 97.0 F [facility] Respitory Rate 2016-10-28 18:45:00 Memori al Conrad BMI Calculated 2016-10-28 18:23:00 Memori al Conrad Weight 2016-10-28 18:23:00 [facility] Height 2016-10-28 18:23:00 160.02 cm [facility] Systolic (mm Hg) 2016-04-26 20:27:00 Arturo rial Atkinson Diastolic (mm Hg) 2016-04-26 20:27:00 Mem orial Atkinson Heart Rate 2016-04-26 20:27:00 [facility] Temperature Oral (F) 2016-04-26 20:27:00 98.4 F [facility] Respitory Rate 2016-04-26 20:27:00 Memori al Conrad Systolic (mm Hg) 2016-04-26 16:51:00 Arturo rial Conrad Diastolic (mm Hg) 2016-04-26 16:51:00 Mem orial Atkinson Respitory Rate 2016-04-26 16:51:00 Memori al Conrad Temperature Oral (F) 2016-04-26 16:51:00 98.4 F [facility] Heart Rate 2016-04-26 16:51:00 [facility] Diastolic (mm Hg) 2016-04-26 13:02:00 Mem orial Atkinson Systolic (mm Hg) 2016-04-26 13:02:00 Arturo rial Conrad Heart Rate 2016-04-26 13:02:00 [facility] Respitory Rate 2016-04-26 13:00:00 Memori al Atkinson Temperature Oral (F) 2016-04-26 13:00:00 98.1 F [facility] BMI Calculated 2016-04-22 01:09:00 Memori al Atkinson Weight 2016-04-22 01:09:00 [facility] Height 2016-04-22 01:09:00 160.02 cm [facility] Procedures Procedure Date / Time Performing Source Performed Clinician ASSIGNMENT OF BENEFITS 2021-10-25 Doctor Unassigned, [facility] 14:47:18 [facility] [id number] 2021-09-18 [facility] [id number] 2021-09-18 [facility] 00:00:00 [facility] [id number] 2021-09-18 [facility] 00:00:00 [facility] [id number] 2021-09-18 [facility] 00:00:00 [facility] [id number] 2021-09-18 [facility] 00:00:00 [facility] AUTHORIZATION FOR RELEASE OF 2021-01-02 Doctor Unassigned, [facility] PHI 05:01:00 [facility] AUTHORIZATION FOR RELEASE OF 2020-12-08 Doctor Unarosario, [facility] PHI 05:01:00 [facility] RECTAL MASS EXCISION 2020-12-07 Dereje [facility] 13:43:00 Medical Branch PROCTOSIGMOIDOSCOPY 2020-12-07 Dereje [facility] 13:43:00 [facility] EXAM UNDER ANESTHESIA 2020-12-07 Dereje [facility] 13:43:00 Medical Branch DAY SURGERY - ADC 2020-12-07 Doctor Unassigned, [facility] 05:01:00 [facility] XR CHEST 2 VW [facility] DSU PRE-OP 2020-12-06 Doctor Unassigned, [facility] 05:01:00 [facility] DSU PRE-OP 2020-11-29 Doctor Unassigned, [facility] 05:01:00 [facility] DSU PRE-OP 2020-11-29 Doctor Yaelssigned, [facility] 05:01:00 [facility] DSU PRE-OP 2020-11-27 Doctor Unassigned, [facility] 05:01:00 [facility] DSU PRE-OP 2020-11-27 Doctor Unassigned, [facility] 05:01:00 [facility] XR CHEST 2 VW 2020-10-06 [facility] 15:[facility]41 [facility] DEXA PERIPHERAL (FOREARM) 2020-04-11 Yusuf Gibbons [facility] 15:15:04 Medical Branch DEXA AXIAL (HIP AND SPINE) 2020-04-11 Yusuf Gibbons [facility] 15:13:34 Medical Branch ASSIGNMENT OF BENEFITS 2020-04-11 Doctor Chel, [facility] 14:16:11 [facility] DEXA AXIAL (HIP AND SPINE) 2019-04-14 Yusuf Gibbons [facility] 16:36:12 Medical Branch CONSENT/REFUSAL FOR DIAGNOSIS 2019-04-14 Doctor Chel, [facility] AND TREATMENT 16:01:26 [facility] ASSIGNMENT OF BENEFITS 2019-04-14 Doctor Chel, [facility] 16:00:59 [facility] ASSIGNMENT OF BENEFITS 2019-04-09 Doctor Unassigned, [facility] 13:24:09 [facility] [place] 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 koch Atkinson prosthesis<sup>1</sup> Placement of stent in cardiac Me morial Conrad conduit Encounters Start End Encounter Admission Attending Care Care Encounter Source Date/Time Date/Time Type Type Clinicians Facility Department ID 2021-06-24 Outpatient Jeovany REYEZ [facility] [id number] Univers 10:58:25 [facility] 2021-06-23 Outpatient Jeovany REYEZ [facility] [id number] Univers 23:07:21 RIKI [facility] 2022-04-05 2022-04-05 Outpatient R CHARLEEN [facility] [id number] Univers 11:30:00 11:30:00 YUSUF [id number] [facility] 2022-02-27 2022-02-27 Outpatient R CHARLEEN [facility] [id number] Univers 00:00:00 00:00:00 YUSUF [id number] [facility] 2021-10-25 2021-10-25 Nurse 1, Adc Infusion Nurse [facility] 1.2. 840.114 [id number] Univers 09:00:00 09:15:00 Visit Yusuf Gibbons [id number] ity [facility] [phone] [place] [id number] [place] 2021-10-25 2021-10-25 Outpatient R [facility] [id number] Univers 09:00:00 09:00:00 [id number] ity [facility] 2021-10-25 2021-10-25 Outpatient R CHARLEEN [facility] [id number] Univers 09:00:00 09:00:00 YUSUF [facility] 2021-10-25 2021-10-25 Orders Doctor GILMORE 1.2.840.114 [id number] Univers 00:00:00 00:00:00 Only Unassigned, VELVET [id number] ity of [place] [facility] 4.2.7.2.686 Laurent as [phone] [address] 2021-10-19 2021-10-19 Outpatient R [facility] [id number] Univers 12:00:00 12:00:00 [id number] [facility] 2021-10-11 2021-10-11 Outpatient R [facility] [id number] Univers 09:30:00 09:30:00 [id number] [facility] 2021-10-11 2021-10-11 Outpatient R CHARLEEN [facility] [id number] Univers 09:30:00 09:30:00 YUSUF [facility] 2021-09-18 2021-09-21 Inpatient Iván Root [facility] [id number] [facility] 00:40:00 18:15:00 [id number] [facility] 2021-09-18 2021-09-21 Inpatient Iván Root [place] [id number] [id number] [facility] 00:40:00 18:15:00 20 [facility] 2021-09-18 2021-09-18 [facility]17 [id number] [facility] 18:46:00 18:46:00 [id number] [facility] 2021-09-14 2021-09-14 Outpatient Iván Root [facility] 3DAY BP17 [id number] [facility] 00:00:00 23:59:00 [id number] [facility] 2021-09-14 2021-09-14 Outpatient UNKNOWN HCACL LABO [id number] [facility] 17:46:00 17:46:00 [id number] [facility] 2021-08-16 2021-08-[address] [facility] [id number] [place] 00:00:00 00:00:00 MY, Baron Method i [facility] 2021-04-13 2021-04-13 Outpatient Jeovany CASTREJON [facility] [id number] Univers 09:30:00 09:30:00 MEAGHAN [id number] [facility] 2021-04-12 2021-04-12 Outpatient R [facility] [id number] Univers 09:30:00 09:30:00 [id number] ity [facility] 2021-04-12 2021-04-12 Outpatient R CHARLEEN [facility] [id number] Univers 09:30:00 09:30:00 YUSUF [facility] 2021-04-12 2021-04-12 Nurse 1, Adc Infusion Nurse [facility] 1.2. 840.114 [id number] Univers 09:09:47 09:24:47 Visit Yusuf Gibbons [id number] [place] [id number] [place] 199993 [place] 2021-04-06 2021-04-06 Outpatient R CHARLEEN [facility] [id number] Univers 10:00:00 10:00:00 YUSUF [id number] ity [facility] 2021-04-06 2021-04-06 Outpatient R CHARLEEN [facility] [id number] Univers 10:00:00 10:00:00 YUSUF irene [facility] 2021-03-30 2021-03-30 Office Yusuf Gibbons [facility] 1.2.840. 114 [id number] Univers 11:03:18 12:12:59 Visit Meaghan Castrejon [id number] [place] [id number] Nv dical nal 220 [facility] 2021-03-30 2021-03-30 [facility] [id number] Univers 11:00:00 11:00:00 MEAGHAN [id number] ity [facility] 2021-03-30 2021-03-30 Outpatient R HALIMA [facility] [id number] Univers 11:00:00 11:00:00 MEAGHAN [facility] 2021-01-02 2021-01-02 Orders Doctor GILMORE 1.2.840.114 [id number] Univers 00:00:00 00:00:00 Only Unassigned, [place] 350.1.13.10 ity of [facility] 4.2.7.2.686 Laurent as [id number] [facility] 009 [place] 2020-12-19 2020-12-19 [facility]phone [facility] 1.2.840.114 [id number] Univers 00:00:00 00:00:00 Yusuf Reeder 350.1.13.10 i [place] [phone] Nv dical nal 220 Branch [facility] 2020-12-08 2020-12-08 Orders Doctor DEIRDRE 1.2.840.114 [id number] Univers 00:00:00 00:00:00 Only Unassigned, VELVET 350.1.13.10 ity [place] [facility] 4.2.7.2.686 Laurent as [id number] [facility] 009 [place] 2020-12-07 2020-12-07 Surgery [facility] 1.2.329.288 [id number] Univers 09:00:00 11:18:00 Riki Reeder 350.1.13.10 i [place] [id number] [facility] 020 Branch 2020-12-07 2020-12-07 [facility] 1.2.840.114 [id number] Univers 07:58:00 10:51:00 Encounter Riki Reeder [id number] [place] [phone] [facility] 071 [place] 2020-12-07 2020-12-07 Orders Doctor DEIRDRE 1.2.840.114 [id number] Univers 00:00:00 00:00:00 Only Unassigned, VELVET 350.1.13.10 ity [place] [facility] 4.2.7.2.686 Laurent as [phone] [facility] 009 [place] 2020-12-06 2020-12-06 Laboratory Only, Adc Test [facility] 1.2.840. 114 [id number] Univers 08:50:27 09:05:27 Only Riki Reyez [id number] [place] [id number] [facility] 353 Branch 2020-12-06 2020-12-06 Front Office Attendant Alfredo, Adc Lab Main [facility] 1.2.8 40.114 [id number] Univers 08:49:30 09:04:30 Visit Riki Reyez Lilli 350.1.13.10 [place] [phone] Nv dical [facility] 353 Branch [facility] 2020-12-06 2020-12-06 Hospital Dereje [facility] 1.2.840.114 [id number] Univers 08:45:00 08:46:00 Encounter Riki Reeder 350.1.13.10 ity [facility] 4[place]2.[place].2.[place] [id number] [facility] 807 Branch 2020-12-06 2020-12-06 Outpatient R [facility] [id number] Univers 08:15:00 08:15:00 [id number] [facility] 2020-12-06 2020-12-06 Outpatient R DEREJE [facility] [id number] Univers 08:15:00 08:15:00 RIKI [facility] 2020-12-06 2020-12-06 Orders Doctor DEIRDRE 1.2.840.114 [id number] Univers 00:00:00 00:00:00 Only Unassigned, VELVET 350.1.13.10 ity of [place] [facility] 4.2.7.2.686 Laurent as [phone] [facility] 009 Branch 2020-11-06 2020-11-06 Outpatient R RIVER [facility] [id number] Univers 15:30:00 15:30:00 AIYANA [id number] [facility] 2020-11-06 2020-11-06 Outpatient R RIVER [facility] [id number] Univers 15:30:00 15:30:00 AIYANA [facility] 2020-10-16 2020-10-16 Outpatient R RIVER [facility] [id number] Univers 16:10:00 16:10:00 AIYANA [id number] [facility] 2020-10-16 2020-10-16 [facility] [id number] Univers 16:10:00 16:10:00 AIYANA [facility] 2020-10-06 2020-10-06 [facility] 1.2.840.114 [id number] Univers 08:54:38 23:59:00 Encounter [facility]13.10 [facility] 4.2.7.2.686 [facility] [id number] [facility] 807 [place] 2020-10-06 2020-10-06 Out[facility] [id number] Univers 08:45:00 08:45:00 [facility] 2020-10-06 2020-10-06 Laboratory Only, Adc Test [facility] 1.2.840. 114 [id number] Univers 08:28:29 08:43:29 Only Riki Reyez 350.1.13.10 [facility] 4.2.7.2.686 [facility] [id number] [facility] 353 [place] 2020-10-06 2020-10-06 Outpatient R [facility] [id number] Univers 08:30:00 08:30:00 [id number] [facility] 2020-09-17 2020-09-17 Patient [facility] 1.2.840.114 [id number] Univers 00:00:00 00:00:00 [facility] 350.1.13.10 i ty [facility] 4.2.7.2.686 [facility] [phone] Nv dical [address] [place] [address] 2020-08-30 2020-08-30 Ambulatory nullFlavo [facility] Multi 35 [id number] Memoria 15:00:00 15:00:00 Pre-Reg r Specialty 04 l [facility] 2020-08-23 2020-08-24 Outpatient nullFlavo [facility] Multi 35 [id number] Memoria 15:00:00 05:59:59 r Specialty 05 l Clinic [facility] 2020-06-14 2020-06-15 Outpatient nullFlavo [facility] Multi 35 [id number] Memoria 16:00:00 04:59:59 r Specialty 03 l Clinic [facility] 2020-04-11 2020-04-11 [facility] 1.2.840 .114 [id number] 09:20:00 23:59:00 Encounter Radiology Interior 350.1.13.10 [place] 4.2.7.2.686 [place] [id number] 800 2020-04-11 2020-04-11 [facility] 1.2.840 .114 [id number] [facility] 09:20:00 23:59:00 Encounter Radiology Interior 350.1.13.10 ity of [place] 4.2.7.2.686 [facility] [id number] [address] 2020-04-11 2020-04-11 [facility] 1.2.840.114 [id number] 09:00:00 09:19:00 Encounter Yusuf Sanzton 350.1.13.10 [place] 4.2.7.2.686 [place] [id number] 800 2020-04-11 2020-04-11 [facility] 1.2.840.114 [id number] [facility] 09:00:00 09:19:00 Encounter Yusuf Sanzton 350.1.13.10 ity of [place] 4.2.7.2.686 [facility] [id number] [address] 2020-04-11 2020-04-11 Outpatient R [facility] [id number] Univers 09:00:00 09:00:00 YUSUF [id number] itirene [facility] 2020-04-11 2020-04-11 Outpatient R [facility] [id number] Univers 00:00:00 00:00:00 YUSUF vines [facility] 2020-04-11 2020-04-11 Orders Doctor GILMORE 1.2.840.114 [id number] 00:00:00 00:00:00 Only Unassigned, [place]EL[place] 350.1.13.10 [place] [facility] 4.2.7.2.686 [id number] 009 2020-04-11 2020-04-11 Orders Doctor GILMORE 1.2.840.114 [id number] Univers 00:00:00 00:00:00 Only Unassigned, VELVET 350.1.13.10 [facility] 4.2.7.2.686 Laurent as [id number] [address] 2020-03-31 2020-03-31 Office [facility] 1.2.430.900 [id number] 11:28:01 12:47:12 Visit Yusuf Christy Lilli 350.1.13.10 [place] 4.2.7.2.686 Professio [id number] [address] 2020-03-31 2020-03-31 Office [facility] 1.2.045.063 [id number] Univers 11:28:01 12:47:12 Visit Yusuf Reeder 350.1.13.10 i [place] [phone] [address] 2020-03-31 2020-03-31 [facility]patient [facility] [id number] Univers 11:30:00 11:30:00 YUSUF [id number] [facility] 2020-03-31 2020-03-31 [facility] [id number] Univers 11:30:00 11:30:00 YUSUF [facility] 2019-10-15 2019-10-15 Office [facility] [id number] [id number] Univers 11:31:15 12:29:05 Visit uYsuf Reeder 350.1.13.10 i ty [place] [id number] [address] 2019-10-15 2019-10-15 Outpatient [facility] [id number] Univers 11:30:00 12:29:05 YUSUF irene [facility] 2019-06-02 2019-06-02 Bedded [facility] [id number] [facility] 10:35:00 18:05:00 Outpatient r [address] 2019-06-02 2019-06-02 Outpatient [facility] CAR [id number] [facility] 05:35:00 05:35:00 2019-05-19 2019-05-20 Outpt Diag nullFlavo [facility] [id number] Memoria 18:18:00 04:59:00 Services r Outpatient 05 l Imaging - [facility] 2019-05-05 2019-05-06 Outpatient nullFlavo [facility] [id number] Memoria 19:40:00 04:59:00 r Disease 03 l [facility] 2019-05-05 2019-05-05 Outpatient [facility] [id number] [facility] 14:40:00 14:40:00 2019-04-14 2019-04-14 Hospital [facility] 1.2.840.114 [id number] Univers 11:00:22 23:59:00 Encounter Yusuf Reeder 350.1.13.10 [place] [id number] [facility] 800 Branch 2019-04-09 2019-04-09 Office [facility] 1.2.083.854 [id number] Univers 08:26:57 10:14:43 Visit Yusuf Reeder 350.1.13.10 i ty [place] [phone] Nv dical nal 220 Branch Building 2019-04-09 2019-04-09 Orders Doctor DEIRDRE 1.2.840.114 [id number] Univers 00:00:00 00:00:00 Only Unassigned, VELVET 350.1.13.10 ity of [place] [facility] 4.2.7.2.686 Laurent as [id number] [facility] 009 Branch 2016-10-28 2016-10-29 Bedded [facility] [id number] Memoria 18:02:00 15:07:00 Outpatient r Conrad 02 l [facility] 2016-04-22 2016-04-27 [facility] [id number] Memoria 00:43:00 01:07:00 r Conrad 41 l [facility] 2015-03-02 2015-03-03 Outpt Diag nullFlavo [facility] [id number] Memoria 17:37:00 04:59:00 Services r Outpatient 00 l [facility] 2015-03-02 2015-03-02 Outpatient [facility] [id number] Memoria 13:30:00 13:30:00 00 charles Martines 2014-03-03 2014-03-04 Outantione Guzman [facility] [id number] Memoria 16:41:00 04:59:00 Services r Outpatient 03 l Imaging Conrad Martines Results Test Description Test Time Test Comments Results Result Comments Source SURGICAL 2021-09-21 11:13:00 Test Item Value Reference Range Interpretation Comme nts SURGICAL RUN DATE: (test 09/21/21 [facility] - LAB PAGE 1 RUN TIME: 1113 code = Specimen Inquiry RUN USER: INTERFACE SR) PATIENT: JASON GOYAL LOC: P.5N POD B U #: [id number] AGE/SX: 86/ F ROOM: [facility] RE09/18/21[facility]: Iván Cowan MD : 35 BED: 1 DIS: STATUS: ADM IN TLOC: SPEC #: [id number] RECD: -[id number] STATUS: ROLAND PATEL #: [id number] BALDO: 09/18/21-[address]: Iván Cowan MD ENTERED: 09/18/21 SP TYPE: SURGICAL OTHR DR: Sam Nur MD ORDERED: [id number], 48024/2, ANATOMIC SPEC HISTOLOGY: TISSUE ID [id number] PCS [...] DESCRIPTION A. Received in formalin, labeled with patie nt's name, medical record number and "smallbowel duplication cyst". It consists of a cystic/dilated portion of small bowel thatmeasures 4.1 x 4.0 x 2.3 cm and has a 3.5 cm staple line. The serosal ward rface is smoothglistening zimmerman. The specimen is opened to reveal green-yellow fecal material. Field Reimbursement Manager sections are submitted in cassettes A1 and A2 as follows: A1 - margin; A2 -food products sales representative sections of dilated bowel- full thickness. [...] INUED ON NEXT PAGE RUN DATE: 09/21/21 [facility] - LAB PAGE 2 RUN TIME: 1113 Specimen Inquiry RUN USER: INTERFACE SPEC #: [id number] PATIENT: JASON GOYAL #[id number] (Continued) GROSS DESCRIPTION (Continued) average circumference ranging [...] Two unremarkabl e colorectal donuts arealso received. Field Reimbursement Manager sections are submitted as follows: B1 - proximal ma rgin; B2-distal margin; B3 - food products sales representative section of mesenteric margin and radial margin; B4 to B6- pro ximal serosal scar with diverticula; B7 - food products sales representative sections at middle area ofserosal fibrosis; B8 - food products sales representative sections at distal mural disruption; B9 [...] ative sections are submitted in cassette C. ASHLEY/ks Technical component performed at [facility] [facility], [facility], [address] MICROSCOPIC DESCRIPTION NEGATIVE FOR MAL IGNANCY. PERFORMED AND INCORPORATED INTO THE FINAL DIAGNOSIS. CLINICAL INFORMATION Diverticular stricture (per op note) Signed SIGNATURE ON FILE Steve Shell 09/21/21 1113 END OF REPORT BASIC METABOLIC [id number] 08:32:00 Test Item Value Reference Range Interpretation [...] New = CA) Reference Range Sep 2020 [id number] 08:32:00 Test Item Value Reference Range Interpretation Comments MAGNESIUM (test code = 1.3 mg/dL 1.6-2.6 L Pleas e note: New MAG) Reference Range Sep 2020 CBC W/AUTO [id number] 08:16:00 Test Item Value Reference Range Interpretation [...] 0.02 x10 3/uL 0.0-0.20 N RECOLLECTCBC W/MANUAL [id number] 05:55:00 Test Item Value Reference Range Interpretation [...] code NORMAL NORMAL = PLTMORPH) BASIC METABOLIC [id number] 05:04:00 Test Item Value Reference Range Interpretation [...] New = CA) Reference Range Sep 2020 [id number] 05:04:00 Test Item Value Reference Range Interpretation Comments MAGNESIUM (test code = 2.0 mg/dL 1.6-2.6 N Pleas e note: New MAG) Reference Range Sep 2020 CBC W/AUTO [id number] 04:41:00 Test Item Value Reference Range Interpretation [...] 0.01 x10 3/uL 0.0-0.20 N BASIC METABOLIC [id number] 04:31:00 Test Item Value Reference Range Interpretation [...] New = CA) Reference Range Sep 2020 [id number] 04:31:00 Test Item Value Reference Range Interpretation Comments MAGNESIUM (test code = 1.5 mg/dL 1.6-2.6 L Pleas e note: New MAG) Reference Range Sep 2020 Novel Coronavirus 2018 [id number] 14:55:00 Test Item Value Reference Range Interpretation [...] det ection of nucleic acids f rom [id number]-[id number] v irus and diagnosis of SA RS-CoV-2 virusinfection. It is an Emergency Use Authorization ( EUA) testauthorized by the U.S. FDA. First test? UnknownEmployed in Healthcare? UnknownSymptomatic as defined by CDC? UnknownHospitalizeddue to COVID? UnknownIn ICU due to COVID? UnknownResident in a congregate care setting? Unknown? NoAge at collection: Danielleel Coronavirus 2018 [id number] 14:55:00 Test Item Value Reference Range Interpretation [...] det ection of nucleic acids f rom [id number]-[id number]-7 v irus and diagnosis of SA RS-CoV-2 virusinfection. It is an Emergency Use Authorization ( EUA) testauthorized by the U.S. FDA. First test? UnknownEmployed in Healthcare? UnknownSymptomatic as defined by CDC? UnknownHospitalizeddue to COVID? UnknownIn ICU due to COVID? UnknownResident in a congregate care setting? Unknown? NoAge at collection: YBASIC METABOLIC [id number] 11:15:00 Test Item Value Reference Range Interpretation [...] CA) Reference Range Sep 2020 CBC W/AUTO [id number] 10:57:00 Test Item Value Reference Range Interpretation [...] x10 3/uL 0.0-0.20 N XR CHEST 2 [id number] 14:14:50HISTORY: Preop. TECHNIQUE: PA and lateral views [...] lesions. CONCLUSIONS: No signs of acute cardiopulmonary disease.[facility], Radiant Results Inft User - 12/06/2020 9:15 [...] pleural effusion orpulmonary congestion. Cardiothoracic ratio of nveeyxlmixvqr34.5/22.1 cm isconsistent with normal cardiac size. Mild thoracic kyphosis is noted withminimal remote fracture deformity suspected in T4 and T5 vertebral bodies.No aggressive bone lesions.CONCLUSIONS:No signs of acute cardiopulmonary disease. [facility] [id number] 15:35:52EXAM: XR CHEST 2 VW HISTORY: Hemorrhage of rectum and anus Disease of rectum COMPARISON: None. FINDINGS: The heart and great vessels are normal except for calcium in the arch ofthe aorta. Small pleural effusions blunt the costophrenic angles but thelungs are otherwise satisfactorily expanded and clear except for minorbasilar subsegmental atelectasis on the left. A hiatal hernia lies behindthe heart. ? [facility]2020 9:37 AM CSTEXAM: XR CHEST 2 VWHISTORY: Hemorrhage of rectum and anus Disease of rectum COMPARISON: None.FINDINGS:The heart and great vessels are normal except for calcium in the arch ofthe aorta. Small pleural effusions blunt the costophrenic anglesbut thelungs are otherwise satisfactorily expanded and clear except for minorbasilar subsegmental atelectasis on the left. A hiatal hernia lies behindthe heart. [facility] [id number] 15:25:00 Test Item Value Reference Range Interpretation Comments Result 2 (Urine Culture) See Result Comment (test code = Result 2 (Urine Culture)) [facility] (FOREARM)2020-04-11 15:19:04HISTORY: Osteoporosis. TECHNIQUE: Bone density estimation [...] d of the left radius and ulna. [facility], Radiant Results Inft User - 04/11/2020 10:20 [...] in distal third of the leftradius and ulna.[facility]2020-04-11 15:17:51HISTORY: History of [...] for each 1.5 SD below the mean. [facility], Radiant Results Inft User - 04/11/2020 10:19 [...] study.CONCLUSION: Very mild osteopenia in lumbar spines.ASSESSMENT: WHO- definitions: T-scorenormal: +/- 1 SD around the meanosteopenia: >1 to 2.4 SD below the meanosteoporosis: >2.5 SD below the meanFracture risk doubles for each 1.5 SD below the mean.[facility] 2019-06-02 14:36:00 Test Item Value Reference Range Interpretation Comments POC Activated Clotting Time (test code 186 s = POC Activated Clotting Time) [facility] BANK [id number] 10:47:00 Test Item Value Reference Range Interpretation Comments ABO/Rh (test code = ABO/Rh) O POS [facility] [id number] 10:47:00 Test Item Value Reference Range Interpretation Comments Antibody Scrn (test Positive (06/02/19 5:47 code = Antibody Scrn) AM) [facility] [id number] 10:47:00 Test Item Value Reference Range Interpretation Comments AB Int (test code = Non-specific IgG AB Int) Antibody [facility] [id number] 10:47:00 Test Item Value Reference Range Interpretation Comments PAUL Gel Int (test Positive (06/02/19 5:47 code = PAUL Gel Int) AM) [facility] [id number] 10:47:00 Test Item Value Reference Range Interpretation Comments C3 Int (test code = Negative (06/02/19 5:47 C3 Int) AM) [facility] [id number] 10:47:00 Test Item Value Reference Range Interpretation Comments Eluate Int (test code = Eluate Int) See Note [facility] [id number] 10:47:00 Test Item Value Reference Range Interpretation Comments Glucose Lvl (test code = Glucose Lvl) 102 70-99 [facility] [id number] 10:47:00 Test Item Value Reference Range Interpretation Comments BUN (test code = BUN) 20 7-22 [facility] [id number] 10:47:00 Test Item Value Reference Range Interpretation Comments Creatinine Lvl (test code = Creatinine 1.00 0.50-1.40 Lvl) [facility] [id number] 10:47:00 Test Item Value Reference Range Interpretation Comments Sodium Lvl (test code = Sodium Lvl) 143 135-145 [facility] [id number] 10:47:00 Test Item Value Reference Range Interpretation Comments Potassium Lvl (test code = Potassium 3.7 3.5-5.1 Lvl) [facility] [id number] 10:47:00 Test Item Value Reference Range Interpretation Comments Chloride Lvl (test code = Chloride Lvl) 105 95-109 [facility] [id number] 10:47:00 Test Item Value Reference Range Interpretation Comments CO2 (test code = CO2) 31 24-32 [facility]2019-10-09 10:47:00 Test Item Value Reference Range Interpretation Comments Calcium Lvl (test code = Calcium Lvl) 10.0 8.5-10.5 [facility]2019-10-09 10:47:00 Test Item Value Reference Range Interpretation Comments eGFR (test code = eGFR) 52 [facility]2019-10-09 10:47:00 Test Item Value Reference Range Interpretation Comments AGAP (test code = AGAP) 10.7 10.0-20.0 [facility]2019-10-09 10:47:00 Test Item Value Reference Range Interpretation Comments Magnesium Lvl (test code = Magnesium 2.1 1.8-2.4 Lvl) [facility]2019-10-09 10:47:00 Test Item Value Reference Range Interpretation Comments Phosphorus (test code = Phosphorus) 3.4 2.5-4.5 [id number] 10:47:00 Test Item Value Reference Range Interpretation Comments WBC (test code = WBC) 6.2 3.7-10.4 [id number] 10:47:00 Test Item Value Reference Range Interpretation Comments RBC (test code = RBC) 4.17 4.20-5.40 [facility]andEaobyqlKTUKCTMVQP4768-46-24 10:47:00 Test Item Value Reference Range Interpretation Comments Hgb (test code = Hgb) 12.5 12.0-16.0 [facility]a[id number] 10:47:00 Test Item Value Reference Range Interpretation Comments Hct (test code = Hct) 37.7 36.0-48.0 [facility]andTymgdiyZPYKGSEWRO1682-52-72 10:47:00 Test Item Value Reference Range Interpretation Comments MCV (test code = MCV) 90.4 80.0-98.0 [facility]andIlwrgvpSYDCAOXYWN8531-26-07 10:47:00 Test Item Value Reference Range Interpretation Comments MCH (test code = MCH) 30.0 pg 27.0-31.0 [facility]andHfbyyuxZNGQLLDJOV9638-96-73 10:47:00 Test Item Value Reference Range Interpretation Comments MCHC (test code = MCHC) 33.2 32.0-36.0 [facility]andNhgervqVDNUAAQMTO1526-57-20 10:47:00 Test Item Value Reference Range Interpretation Comments RDW (test code = RDW) 13.5 11.5-14.5 [facility]andCxtaxajEPRANWLPSS0648-96-61 10:47:00 Test Item Value Reference Range Interpretation Comments Platelet (test code = Platelet) 288 133-450 [facility]andBevmlbpXWFCPUSBFJ5924-89-97 10:47:00 Test Item Value Reference Range Interpretation Comments MPV (test code = MPV) 7.1 7.4-10.4 [facility]andHidtwcjSEWTLOAFEF2095-56-57 10:47:00 Test Item Value Reference Range Interpretation Comments PT (test code = PT) 13.0 s 12.0-14.7 [facility]andFywzznbZOHLYVPNWT0481-25-03 10:47:00 Test Item Value Reference Range Interpretation Comments PTT (test code = PTT) 29.2 s 22.9-35.8 [facility]a[id number] 10:47:00 Test Item Value Reference Range Interpretation Comments INR (test code = INR) 1.00 1 0.85-1.17 [facility]andCfcmdipBAGIEXGLPF6208-67-17 10:47:00 Test Item Value Reference Range Interpretation Comments Segs (test code = Segs) 60.5 45.0-75.0 [id number] 10:47:00 Test Item Value Reference Range Interpretation Comments Lymphocytes (test code = Lymphocytes) 26.2 20.0-40.0 [facility]a[id number] 10:47:00 Test Item Value Reference Range Interpretation Comments Monocytes (test code = Monocytes) 8.7 2.0-12.0 [facility]andDomfoexMXFZLFJJAM8218-04-56 10:47:00 Test Item Value Reference Range Interpretation Comments Eosinophils (test code = 4.0 See_Comment [A utomated message] The Eosinophils) system which ge nerated this result tra nsmitted reference range : <=4.0. The reference r robbie was not used to int erpret this result as normal/abnormal . [facility]a[id number] 10:47:00 Test Item Value Reference Range Interpretation Comments Basophils (test code = 0.6 See_Comment [Aut omated message] The Basophils) system which ge nerated this result tra nsmitted reference range : <=1.0. The reference r robbie was not used to int erpret this result as normal/abnormal . [facility]andKesheabHIOGTMWANS7146-12-14 10:47:00 Test Item Value Reference Range Interpretation Comments Neutrophils # (test code = Neutrophils 3.7 1.5-8.1 #) [facility]andWlbtahsQOFBRTADYX0351-95-29 10:47:00 Test Item Value Reference Range Interpretation Comments Lymphocytes # (test code = Lymphocytes 1.6 1.0-5.5 #) [facility]a[id number] 10:47:00 Test Item Value Reference Range Interpretation Comments Monocytes # (test code 0.5 See_Comment [Aut omated message] The = Monocytes #) system which generated this result tra nsmitted reference range : <=0.8. The reference r robbie was not used to int erpret this result as normal/abnormal . [facility]a[id number] 10:47:00 Test Item Value Reference Range Interpretation Comments Eosinophils # (test code 0.3 See_Comment [A utomated message] The = Eosinophils #) system whic h generated this result tra nsmitted reference range : <=0.5. The reference r robbie was not used to int erpret this result as normal/abnormal . [facility] AXIAL (HIP AND SPINE)2019-04-14 16:40:40HISTORY: Osteoporosis screening [...] mean. [facility], Radiant Results Inft User - 04/14/2019 11:42 [...] doubles for each 1.5 SD below the mean.[facility] 2016-10-29 11:37:00 Test Item Value Reference Range Interpretation Comments eGFR (test code = eGFR) 48 [facility] [id number] 11:37:00 Test Item Value Reference Range Interpretation Comments Creatinine Lvl (test code = Creatinine 1.08 0.50-1.40 Lvl) [facility]andBlwdsqaDYZGSSSBRH4331-90-76 11:37:00 Test Item Value Reference Range Interpretation Comments Hgb (test code = Hgb) 12.6 12.0-16.0 [facility]andPqkojdpTXJALHTVYE5670-29-58 00:09:00 Test Item Value Reference Range Interpretation Comments POC Activated Clotting Time (test code 198 s = POC Activated Clotting Time) [facility]andRigmphlFXWULSAQVO9005-10-09 22:02:00 Test Item Value Reference Range Interpretation Comments POC Activated Clotting Time (test code 268 s = POC Activated Clotting Time) [facility] [id number] 18:25:00 Test Item Value Reference Range Interpretation Comments ABO/Rh (test code = ABO/Rh) O POS [facility] [id number] 18:25:00 Test Item Value Reference Range Interpretation Comments Antibody Scrn (test Negative (10/28/16 12:25 code = Antibody Scrn) PM) [facility] [id number] 18:25:00 Test Item Value Reference Range Interpretation Comments Magnesium Lvl (test code = Magnesium 1.9 1.8-2.4 Lvl) [facility] HospitalWqtrshtIGHVTAYPYMDF4298-10-58 18:25:00 Test Item Value Reference Range Interpretation Comments Potassium Lvl (test code = Potassium 4.4 3.5-5.1 Lvl) [facility]PmlonlmEUWOSLQLLZGY4441-57-95 18:25:00 Test Item Value Reference Range Interpretation Comments Calcium Lvl (test code = Calcium Lvl) 9.4 8.5-10.5 [facility] HospitalGpofhmdOXBUTZIXMAWV1164-92-81 18:25:00 Test Item Value Reference Range Interpretation Comments CO2 (test code = CO2) 31 24-32 [facility] HospitalYmfllqxJSELHCXCGYDC5394-78-17 18:25:00 Test Item Value Reference Range Interpretation Comments Chloride Lvl (test code = Chloride Lvl) 103 95-109 [facility] HospitalXmaduikSALUKYRWXIVI6406-93-01 18:25:00 Test Item Value Reference Range Interpretation Comments eGFR (test code = eGFR) 55 [facility] HospitalHezunmwQZJMEFYZCBDD9469-00-00 18:25:00 Test Item Value Reference Range Interpretation Comments Sodium Lvl (test code = Sodium Lvl) 141 135-145 [facility] HospitalBxqdozpGGCTKKWDGYRU2990-98-04 18:25:00 Test Item Value Reference Range Interpretation Comments Creatinine Lvl (test code = Creatinine 0.97 0.50-1.40 Lvl) [facility] HospitalNeetnnqVHPCXUSPCAZX2636-20-49 18:25:00 Test Item Value Reference Range Interpretation Comments BUN (test code = BUN) 24 7-22 [facility] HospitalIxrwisbFSSAFHYEURPK8805-05-90 18:25:00 Test Item Value Reference Range Interpretation Comments Glucose Lvl (test code = Glucose Lvl) 108 70-99 [facility] HospitalRercvcvUGXQNTAGFPKL0052-33-49 18:25:00 Test Item Value Reference Range Interpretation Comments AGAP (test code = AGAP) 11.4 10.0-20.0 [facility]andQumnkxwEWHNKSEXBQ6887-60-86 18:25:00 Test Item Value Reference Range Interpretation Comments INR (test code = INR) 1.10 0.85-1.17 [facility]andYdjzxznLASUSIEVAH2033-70-74 18:25:00 Test Item Value Reference Range Interpretation Comments PT (test code = PT) 14.4 s 12.0-14.7 [facility]andTtwvoquYNFUVUHNUD2584-54-53 18:25:00 Test Item Value Reference Range Interpretation Comments PTT (test code = PTT) 30.3 s 22.9-35.8 [facility]andNjykammCMUVHZKOJQ7399-04-13 18:25:00 Test Item Value Reference Range Interpretation Comments Hgb (test code = Hgb) 13.1 12.0-16.0 [facility]andZcxxjjbSMEREJSHCY2384-05-56 18:25:00 Test Item Value Reference Range Interpretation Comments RBC (test code = RBC) 4.51 4.20-5.40 [facility]andIhqftopHPYCKQCGEQ5643-21-37 18:25:00 Test Item Value Reference Range Interpretation Comments WBC (test code = WBC) 5.4 3.7-10.4 [facility]andSjxmxulFNZXMXDODJ2758-33-48 18:25:00 Test Item Value Reference Range Interpretation Comments MPV (test code = MPV) 7.2 7.4-10.4 [facility]andLseczxaFFNZDZEBDJ0532-31-73 18:25:00 Test Item Value Reference Range Interpretation Comments MCHC (test code = MCHC) 33.0 32.0-36.0 [facility]andSoegmdwSESKOBCFVH3112-77-85 18:25:00 Test Item Value Reference Range Interpretation Comments RDW (test code = RDW) 14.0 11.5-14.5 [facility]andTjxrifzIADJNHGFUU3799-76-87 18:25:00 Test Item Value Reference Range Interpretation Comments Platelet (test code = Platelet) 278 133-450 [facility]andLtbsdnqXPDDPOQTTZ0316-00-95 18:25:00 Test Item Value Reference Range Interpretation Comments MCH (test code = MCH) 29.0 pg 27.0-31.0 [facility]andIjmwvpsTZKIJDJNIE5816-04-82 18:25:00 Test Item Value Reference Range Interpretation Comments MCV (test code = MCV) 87.9 80.0-98.0 [facility]andNbpyxawXZDAKRAXGP5805-57-08 18:25:00 Test Item Value Reference Range Interpretation Comments Hct (test code = Hct) 39.7 36.0-48.0 [facility]andHpmapzxMJZGYZYIYZ9508-10-61 18:25:00 Test Item Value Reference Range Interpretation Comments Eosinophils (test code = 2.2 See_Comment [A utomated message] The Eosinophils) system which ge nerated this result tra nsmitted reference range : <=4.0. The reference r robbie was not used to int erpret this result as normal/abnormal . [facility]andMlyjnlePPXCWFJFFV7417-10-23 18:25:00 Test Item Value Reference Range Interpretation Comments Segs-Bands # (test code = Segs-Bands #) 2.8 1.5-8.1 [facility]andVvthpfsZREEHKNWCI4280-20-89 18:25:00 Test Item Value Reference Range Interpretation Comments Basophils (test code = 0.9 See_Comment [Aut omated message] The Basophils) system which ge nerated this result tra nsmitted reference range : <=1.0. The reference r robbie was not used to int erpret this result as normal/abnormal . [facility]andAoibfliUXKFSRIQBU5286-97-78 18:25:00 Test Item Value Reference Range Interpretation Comments Lymphocytes # (test code = Lymphocytes 2.1 1.0-5.5 #) [facility]andGykekfzEIQVBFAZXV1314-82-58 18:25:00 Test Item Value Reference Range Interpretation Comments Segs (test code = Segs) 52.3 45.0-75.0 [place] [id number] 18:25:00 Test Item Value Reference Range Interpretation Comments Lymphocytes (test code = Lymphocytes) 38.0 20.0-40.0 [facility]andOzfjwnaZKOOMBHZEQ8135-84-66 18:25:00 Test Item Value Reference Range Interpretation Comments Monocytes (test code = Monocytes) 6.6 2.0-12.0 [facility]andMiqtltvRDVTROPUMC1682-71-91 18:25:00 Test Item Value Reference Range Interpretation Comments Basophils # (test code 0.1 See_Comment [Aut omated message] The = Basophils #) system which generated this result tra nsmitted reference range : <=0.2. The reference r robbie was not used to int erpret this result as normal/abnormal . [facility]andOqtchngKCPAIKQHBN1721-93-74 18:25:00 Test Item Value Reference Range Interpretation Comments Eosinophils # (test code 0.1 See_Comment [A utomated message] The = Eosinophils #) system whic h generated this result tra nsmitted reference range : <=0.5. The reference r robbie was not used to int erpret this result as normal/abnormal . [facility]andAnautziIYXBPWNITI7544-77-93 18:25:00 Test Item Value Reference Range Interpretation Comments Monocytes # (test code 0.4 See_Comment [Aut omated message] The = Monocytes #) system which generated this result tra nsmitted reference range : <=0.8. The reference r robbie was not used to int erpret this result as normal/abnormal . [facility] [id number] 08:58:00 Test Item Value Reference Range Interpretation Comments Phosphorus (test code = Phosphorus) 2.9 2.5-4.5 [facility] CenterCHEM ECMWH2268-06-86 08:58:00 Test Item Value Reference Range Interpretation Comments Magnesium Lvl (test code = Magnesium 2.4 1.8-2.4 Lvl) [facility] HospitalTbpfqgjWVLCLTNGJTUQ9092-00-00 08:58:00 Test Item Value Reference Range Interpretation Comments Sodium Lvl (test code = Sodium Lvl) 139 135-145 [facility] HospitalRfjlbclUDXNNJAVDYIY6929-48-88 08:58:00 Test Item Value Reference Range Interpretation Comments Creatinine Lvl (test code = Creatinine 1.14 0.50-1.40 Lvl) [facility] HospitalZqbseoqRLQNXPWLEWPE2265-65-16 08:58:00 Test Item Value Reference Range Interpretation Comments Chloride Lvl (test code = Chloride Lvl) 104 95-109 [facility] HospitalHwnfgalAYUJAJBALRSY5443-06-16 08:58:00 Test Item Value Reference Range Interpretation Comments CO2 (test code = CO2) 28 24-32 [facility] HospitalQqqegicQWJUXVYISHUR7728-12-70 08:58:00 Test Item Value Reference Range Interpretation Comments Calcium Lvl (test code = Calcium Lvl) 8.7 8.5-10.5 [facility] HospitalMcgblhdNSJUXBJWZSWR3294-10-60 08:58:00 Test Item Value Reference Range Interpretation Comments Potassium Lvl (test code = Potassium 4.8 3.5-5.1 Lvl) [facility] HospitalJrsaptiTMLFHACFESRF1525-66-63 08:58:00 Test Item Value Reference Range Interpretation Comments AGAP (test code = AGAP) 11.8 10.0-20.0 [facility] HospitalIxniqbgKBPGDFPDQQQL2097-99-27 08:58:00 Test Item Value Reference Range Interpretation Comments eGFR (test code = eGFR) 45 [facility] HospitalMfzhalvGIKXGEYOCKPR2915-87-55 08:58:00 Test Item Value Reference Range Interpretation Comments BUN (test code = BUN) 25 7-22 [facility] HospitalRyszcacCHKTANXYEQHE8574-17-53 08:58:00 Test Item Value Reference Range Interpretation Comments Glucose Lvl (test code = Glucose Lvl) 113 70-99 [facility] CenterNahvyjgEIKGKEBLMS5418-60-79 08:58:00 Test Item Value Reference Range Interpretation Comments MPV (test code = MPV) 7.8 7.4-10.4 [facility]andHayxlxkTHCGCRWZFI3688-00-40 08:58:00 Test Item Value Reference Range Interpretation Comments Platelet (test code = Platelet) 301 534-450 [facility]andWfmozmkRTQXCLMTWI3412-01-23 08:58:00 Test Item Value Reference Range Interpretation Comments RDW (test code = RDW) 14.1 11.5-14.5 [facility]andAvdfxpsGGSYMOGAWT2486-87-66 08:58:00 Test Item Value Reference Range Interpretation Comments MCH (test code = MCH) 29.9 pg 27.0-31.0 [facility]andSpiktsxBSDCKAPKYR0728-71-57 08:58:00 Test Item Value Reference Range Interpretation Comments MCV (test code = MCV) 89.6 80.0-98.0 [facility]andSinzuacVFNNMWZUIY5321-52-85 08:58:00 Test Item Value Reference Range Interpretation Comments MCHC (test code = MCHC) 33.4 32.0-36.0 [facility]andTmfywoaVXFOKTLJIA8269-97-77 08:58:00 Test Item Value Reference Range Interpretation Comments Hct (test code = Hct) 34.3 36.0-48.0 [facility]andMslqzfvXTKAVGSRGG1385-27-61 08:58:00 Test Item Value Reference Range Interpretation Comments Hgb (test code = Hgb) 11.5 12.0-16.0 [facility]andTuquedkURGFTVTIUZ3660-11-84 08:58:00 Test Item Value Reference Range Interpretation Comments RBC (test code = RBC) 3.83 4.20-5.40 [facility]andOeursrvWMNTQYISOE8660-52-70 08:58:00 Test Item Value Reference Range Interpretation Comments WBC (test code = WBC) 8.2 3.7-10.4 [facility]andLibvgazJWABMYERUC8976-06-29 08:58:00 Test Item Value Reference Range Interpretation Comments Lymphocytes # (test code = Lymphocytes 1.9 1.0-5.5 #) [facility]andKuukytfNVUSIOBUDG5688-62-62 08:58:00 Test Item Value Reference Range Interpretation Comments Segs-Bands # (test code = Segs-Bands #) 5.5 1.5-8.1 [facility]andYxoqrxzRLCMFBJKIK3408-77-81 08:58:00 Test Item Value Reference Range Interpretation Comments Eosinophils (test code = 1.4 See_Comment [A utomated message] The Eosinophils) system which ge nerated this result tra nsmitted reference range : <=4.0. The reference r robbie was not used to int erpret this result as normal/abnormal . [facility]ellandBatjaojGSUTCSDCEU1326-51-49 08:58:00 Test Item Value Reference Range Interpretation Comments Basophils (test code = 0.5 See_Comment [Aut omated message] The Basophils) system which ge nerated this result tra nsmitted reference range : <=1.0. The reference r robbie was not used to int erpret this result as normal/abnormal . [facility]andHbyhuduGCNVQSWLLZ1774-18-40 08:58:00 Test Item Value Reference Range Interpretation Comments Monocytes (test code = Monocytes) 9.1 2.0-12.0 [facility]andHzlpsajXYHKPJNTWA0935-47-32 08:58:00 Test Item Value Reference Range Interpretation Comments Segs (test code = Segs) 66.2 45.0-75.0 [facility]andGlwurumAJWQFNHHXG3872-18-91 08:58:00 Test Item Value Reference Range Interpretation Comments Lymphocytes (test code = Lymphocytes) 22.8 20.0-40.0 [facility]andRfarsjiQUGDDMGSTU5575-73-59 08:58:00 Test Item Value Reference Range Interpretation Comments Eosinophils # (test code 0.1 See_Comment [A utomated message] The = Eosinophils #) system whic h generated this result tra nsmitted reference range : <=0.5. The reference r robbie was not used to int erpret this result as normal/abnormal . [facility]ellandKidvlpeSZOZMIKFST9221-45-91 08:58:00 Test Item Value Reference Range Interpretation Comments Monocytes # (test code 0.7 See_Comment [Aut omated message] The = Monocytes #) system which generated this result tra nsmitted reference range : <=0.8. The reference r robbie was not used to int erpret this result as normal/abnormal . [facility] [id number] 09:58:00 Test Item Value Reference Range Interpretation Comments Phosphorus (test code = Phosphorus) 3.7 2.5-4.5 [facility] [id number] 09:58:00 Test Item Value Reference Range Interpretation Comments Magnesium Lvl (test code = Magnesium 2.1 1.8-2.4 Lvl) [facility]2016-09-01 09:58:00 Test Item Value Reference Range Interpretation Comments eGFR (test code = eGFR) 42 [facility]2016-09-01 09:58:00 Test Item Value Reference Range Interpretation Comments AGAP (test code = AGAP) 12.9 10.0-20.0 [facility]2016-09-01 09:58:00 Test Item Value Reference Range Interpretation Comments Chloride Lvl (test code = Chloride Lvl) 104 95-109 [facility]2016-09-01 09:58:00 Test Item Value Reference Range Interpretation Comments CO2 (test code = CO2) 25 24-32 [facility]2016-09-01 09:58:00 Test Item Value Reference Range Interpretation Comments Calcium Lvl (test code = Calcium Lvl) 8.5 8.5-10.5 [facility]2016-09-01 09:58:00 Test Item Value Reference Range Interpretation Comments Potassium Lvl (test code = Potassium 3.9 3.5-5.1 Lvl) [facility]2016-09-01 09:58:00 Test Item Value Reference Range Interpretation Comments Creatinine Lvl (test code = Creatinine 1.22 0.50-1.40 Lvl) [facility]2016-09-01 09:58:00 Test Item Value Reference Range Interpretation Comments Sodium Lvl (test code = Sodium Lvl) 138 135-145 [facility]2016-09-01 09:58:00 Test Item Value Reference Range Interpretation Comments BUN (test code = BUN) 24 7-22 [facility]2016-09-01 09:58:00 Test Item Value Reference Range Interpretation Comments Glucose Lvl (test code = Glucose Lvl) 92 70-99 [facility]2016-08-31 14:11:00 Test Item Value Reference Range Interpretation Comments Aldosterone (test code = Aldosterone) no gt [facility] Cen[id number] 13:47:00 Test Item Value Reference Range Interpretation Comments Cortisol (test code = Cortisol) 8.6 [facility]2016-08-31 07:59:00 Test Item Value Reference Range Interpretation Comments Phosphorus (test code = Phosphorus) 3.3 2.5-4.5 [facility] CenterCHEM [id number] 07:59:00 Test Item Value Reference Range Interpretation Comments Magnesium Lvl (test code = Magnesium 1.8 1.8-2.4 Lvl) [facility]VET[facility]UD6839[facility] 07:59:00 Test Item Value Reference Range Interpretation Comments AGAP (test code = AGAP) 11.2 10.0-20.0 [facility]ZfcxhedCRETOWNIJWNF4664-56-57 07:59:00 Test Item Value Reference Range Interpretation Comments eGFR (test code = eGFR) 49 [facility]CnvekddQZWOBDNLHOTS0919-94-78 07:59:00 Test Item Value Reference Range Interpretation Comments Calcium Lvl (test code = Calcium Lvl) 8.4 8.5-10.5 [facility]HzzvzgzOXROLCSOOXNG6911-73-63 07:59:00 Test Item Value Reference Range Interpretation Comments Potassium Lvl (test code = Potassium 4.2 3.5-5.1 Lvl) [facility] HospitalGthnktwBYADDJXGBXOY4934-20-98 07:59:00 Test Item Value Reference Range Interpretation Comments Chloride Lvl (test code = Chloride Lvl) 105 95-109 [facility] HospitalRyhlkxtWOGRXOICHLHE7509-84-29 07:59:00 Test Item Value Reference Range Interpretation Comments CO2 (test code = CO2) 28 24-32 [facility]WqwlcafZBMVQMNBJHMG0811-71-13 07:59:00 Test Item Value Reference Range Interpretation Comments BUN (test code = BUN) 22 7-22 [facility] HospitalKalotfqVORAPYVAVQDM0101-22-93 07:59:00 Test Item Value Reference Range Interpretation Comments Glucose Lvl (test code = Glucose Lvl) 109 70-99 [facility] HospitalEhofeabEAGOHSAGMVCP1707-33-81 07:59:00 Test Item Value Reference Range Interpretation Comments Creatinine Lvl (test code = Creatinine 1.07 0.50-1.40 Lvl) [facility] HospitalNocqfkrYHSDKYNISZCH4847-11-91 07:59:00 Test Item Value Reference Range Interpretation Comments Sodium Lvl (test code = Sodium Lvl) 140 135-145 [facility]IbsaqslXRIPQESMQQ6537[facility] 07:59:00 Test Item Value Reference Range Interpretation Comments WBC (test code = WBC) 7.3 3.7-10.4 [facility]PwyakwpVUJXNNYNJV7345-52-66 07:59:00 Test Item Value Reference Range Interpretation Comments MCH (test code = MCH) 29.6 pg 27.0-31.0 [facility]andBsvjepySAOUPOWZTN0692-19-03 07:59:00 Test Item Value Reference Range Interpretation Comments MCV (test code = MCV) 88.9 80.0-98.0 [facility]andDhzygmwHEKFKXFNTT0220-99-68 07:59:00 Test Item Value Reference Range Interpretation Comments Hct (test code = Hct) 36.7 36.0-48.0 [facility]andTywxypqAYXFZOYNZI5607-64-67 07:59:00 Test Item Value Reference Range Interpretation Comments Hgb (test code = Hgb) 12.2 12.0-16.0 [facility]andXzoyfsgLSAJOZOPLV6170-57-46 07:59:00 Test Item Value Reference Range Interpretation Comments RBC (test code = RBC) 4.12 4.20-5.40 [facility]andDshinwsTTHKYSLICX9687-03-89 07:59:00 Test Item Value Reference Range Interpretation Comments MPV (test code = MPV) 7.3 7.4-10.4 [facility]andSbryqbgKTIHDCKHSZ5235-65-59 07:59:00 Test Item Value Reference Range Interpretation Comments Platelet (test code = Platelet) 290 133-450 [facility]andPfuqhzuXCPXKAAEVW6285-18-01 07:59:00 Test Item Value Reference Range Interpretation Comments RDW (test code = RDW) 13.8 11.5-14.5 [facility]andOhinlpjANEACSALXK3634-93-38 07:59:00 Test Item Value Reference Range Interpretation Comments MCHC (test code = MCHC) 33.3 32.0-36.0 [facility]andAyvbxpoBJIXWZKLJO6003-76-46 07:59:00 Test Item Value Reference Range Interpretation Comments Lymphocytes # (test code = Lymphocytes 1.6 1.0-5.5 #) [facility]andSyvrbnyVLUSEAYCMH5841-49-33 07:59:00 Test Item Value Reference Range Interpretation Comments Segs-Bands # (test code = Segs-Bands #) 4.8 1.5-8.1 [facility]andWcvzcjvMZERFMCSGU4098-99-14 07:59:00 Test Item Value Reference Range Interpretation Comments Eosinophils # (test code 0.2 See_Comment [A utomated message] The = Eosinophils #) system whic h generated this result tra nsmitted reference range : <=0.5. The reference r robbie was not used to int erpret this result as normal/abnormal . [facility]ellandEjahaxiIPIFXJTIBP3566-36-90 07:59:00 Test Item Value Reference Range Interpretation Comments Monocytes # (test code 0.7 See_Comment [Aut omated message] The = Monocytes #) system which generated this result tra nsmitted reference range : <=0.8. The reference r robbie was not used to int erpret this result as normal/abnormal . [facility]ellandJnlexdsWNBZUYLTKJ4129-32-81 07:59:00 Test Item Value Reference Range Interpretation Comments Basophils # (test code 0.1 See_Comment [Aut omated message] The = Basophils #) system which generated this result tra nsmitted reference range : <=0.2. The reference r robbie was not used to int erpret this result as normal/abnormal . [facility]andQquxgznPREYVGPRBV4938-78-18 07:59:00 Test Item Value Reference Range Interpretation Comments Lymphocytes (test code = Lymphocytes) 21.7 20.0-40.0 [facility]andHjzhcoaRTUETDMDES1408-12-84 07:59:00 Test Item Value Reference Range Interpretation Comments Segs (test code = Segs) 65.6 45.0-75.0 [facility]andFvmdhruUPCIRXPPDW6530-09-84 07:59:00 Test Item Value Reference Range Interpretation Comments Basophils (test code = 0.8 See_Comment [Aut omated message] The Basophils) system which ge nerated this result tra nsmitted reference range : <=1.0. The reference r robbie was not used to int erpret this result as normal/abnormal . [facility]andVxvrucgOLJVZSQSOS1859-06-47 07:59:00 Test Item Value Reference Range Interpretation Comments Eosinophils (test code = 2.1 See_Comment [A utomated message] The Eosinophils) system which ge nerated this result tra nsmitted reference range : <=4.0. The reference r robbie was not used to int erpret this result as normal/abnormal . [facility]ellandJatikhzCYNELVJABQ7243-24-76 07:59:00 Test Item Value Reference Range Interpretation Comments Monocytes (test code = Monocytes) 9.8 2.0-12.0 [facility]andQdmexvlFKPOTFCCFN5580-47-84 08:51:00 Test Item Value Reference Range Interpretation Comments Segs (test code = Segs) 53.8 45.0-75.0 [facility]ellandUvsotrtYDZRSHFBSD5034-79-18 08:51:00 Test Item Value Reference Range Interpretation Comments Monocytes # (test code 0.6 See_Comment [Aut omated message] The = Monocytes #) system which generated this result tra nsmitted reference range : <=0.8. The reference r robbie was not used to int erpret this result as normal/abnormal . [facility]andGxfclxnGFVWMWTTUF3064-59-04 08:51:00 Test Item Value Reference Range Interpretation Comments Basophils (test code = 0.7 See_Comment [Aut omated message] The Basophils) system which ge nerated this result tra nsmitted reference range : <=1.0. The reference r robbie was not used to int erpret this result as normal/abnormal . [facility]andCmomcsfZMOGLEEVBH6733-32-92 08:51:00 Test Item Value Reference Range Interpretation Comments Segs-Bands # (test code = Segs-Bands #) 3.1 1.5-8.1 [facility]andOwzdyeiABDNQOXLYJ2379-71-43 08:51:00 Test Item Value Reference Range Interpretation Comments Monocytes (test code = Monocytes) 9.7 2.0-12.0 [facility]andHeitlloNJKXUHYMVT5195-03-83 08:51:00 Test Item Value Reference Range Interpretation Comments Eosinophils (test code = 3.5 See_Comment [A utomated message] The Eosinophils) system which ge nerated this result tra nsmitted reference range : <=4.0. The reference r robbie was not used to int erpret this result as normal/abnormal . [facility]ellandNwqgdsfKNXDKCYTEG0895-64-71 08:51:00 Test Item Value Reference Range Interpretation Comments Lymphocytes (test code = Lymphocytes) 32.3 20.0-40.0 [facility]andWbvqkgkIWUDRWZFSK0611-68-98 08:51:00 Test Item Value Reference Range Interpretation Comments Eosinophils # (test code 0.2 See_Comment [A utomated message] The = Eosinophils #) system whic h generated this result tra nsmitted reference range : <=0.5. The reference r robbie was not used to int erpret this result as normal/abnormal . [facility]ellandZvvlxydHYXCSVYKEV5754-18-01 08:51:00 Test Item Value Reference Range Interpretation Comments Lymphocytes # (test code = Lymphocytes 1.8 1.0-5.5 #) [facility]ellandYubiixcFYPPKBLETF3974-97-63 08:51:00 Test Item Value Reference Range Interpretation Comments MPV (test code = MPV) 7.6 7.4-10.4 [facility]ellandYxygrhtMWGAWPHPVX0738-91-33 08:51:00 Test Item Value Reference Range Interpretation Comments MCH (test code = MCH) 30.0 pg 27.0-31.0 [facility]ellandDactmacEVRIZHJBGB7530-52-23 08:51:00 Test Item Value Reference Range Interpretation Comments MCV (test code = MCV) 89.1 80.0-98.0 [facility]ellandMkyujizXQVERTUYTU2337-46-16 08:51:00 Test Item Value Reference Range Interpretation Comments MCHC (test code = MCHC) 33.7 32.0-36.0 [facility]ellandIlzoahwDVNJCQPBHS2821-43-99 08:51:00 Test Item Value Reference Range Interpretation Comments RDW (test code = RDW) 13.8 11.5-14.5 [facility]andXszhkwbJDZYCRLXTG6598-46-06 08:51:00 Test Item Value Reference Range Interpretation Comments Platelet (test code = Platelet) 266 133-450 [facility]andWebvygzWUJAHOPAFW7702-33-24 08:51:00 Test Item Value Reference Range Interpretation Comments Hgb (test code = Hgb) 12.1 12.0-16.0 [facility]ellandRnjqzqnIYTHJHVISI4211-18-37 08:51:00 Test Item Value Reference Range Interpretation Comments Hct (test code = Hct) 35.8 36.0-48.0 [facility]andKjramppTXCCZUNOQL6037-75-69 08:51:00 Test Item Value Reference Range Interpretation Comments WBC (test code = WBC) 5.7 3.7-10.4 [facility]ellandSatebqtPJPZUOUSTY0048-71-38 08:51:00 Test Item Value Reference Range Interpretation Comments RBC (test code = RBC) 4.01 4.20-5.40 [facility]2016-08-29 06:54:00 Test Item Value Reference Range Interpretation Comments Albumin Lvl (test code = Albumin Lvl) 3.2 3.5-5.0 [facility] [id number] 06:54:00 Test Item Value Reference Range Interpretation Comments ALT (test code = ALT) 29 See_Comment [Auto mated message] The system which ge nerated this result transmit randolph reference range : <=65. The reference range was not used to interpr et this result as juan m l/abnormal. [facility] [id number] 06:54:00 Test Item Value Reference Range Interpretation Comments Total Protein (test code = Total 7.4 6.4-8.4 Protein) [facility] [id number] 06:54:00 Test Item Value Reference Range Interpretation Comments B/C Ratio (test code = B/C Ratio) 19 6-25 [facility] [id number] 06:54:00 Test Item Value Reference Range Interpretation Comments A/G Ratio (test code = A/G Ratio) 0.8 0.7-1.6 [facility] [id number] 06:54:00 Test Item Value Reference Range Interpretation Comments Globulin (test code = Globulin) 4.2 2.7-4.2 [facility] [id number] 06:54:00 Test Item Value Reference Range Interpretation Comments Bili Total (test code = Bili Total) 0.5 0.2-1.3 [facility] [id number] 06:54:00 Test Item Value Reference Range Interpretation Comments Alk Phos (test code = Alk Phos) 66 39-136 [facility] [id number] 06:54:00 Test Item Value Reference Range Interpretation Comments AST (test code = AST) 23 See_Comment [Auto mated message] The system which ge nerated this result transmit randolph reference range : <=37. The reference range was not used to interpr et this result as juan m l/abnormal. [facility] HospitalCanburgCARDIAC TSXPVXS5496-78-58 03:48:00 Test Item Value Reference Range Interpretation Comments Troponin-I (test code no gt See_Comment [Auto mated message] The = Troponin-I) system which g enerated this result transmit randolph reference range : <=0.40. The reference r robbie was not used to interpr et this result as juan m l/abnormal. [facility] HospitalCmkqvpzKSABWLYVUI8626-98-24 03:48:00 Test Item Value Reference Range Interpretation Comments PTT (test code = PTT) 30.5 s 22.9-35.8 [facility] CenterQfrntrlDTIDJRXREG7482-20-01 03:48:00 Test Item Value Reference Range Interpretation Comments Etoh (%) (test code = Etoh (%)) no gt [facility] CenterOdtohydBIAVCRKPJD7468-55-08 03:48:00 Test Item Value Reference Range Interpretation Comments Ethanol Lvl (test code = Ethanol Lvl) no gt [facility] AND [id number] 03:48:00 Test Item Value Reference Range Interpretation Comments UA Renal Epi (test code = UA Renal Epi) RARE [facility] AND [id number] 03:48:00 Test Item Value Reference Range Interpretation Comments UA Urobilinogen (test code = UA <=1.0 mg/dL 0.1-1.0 Urobilinogen) [facility] AND [id number] 03:48:00 Test Item Value Reference Range Interpretation Comments UA Color (test code = Yellow *NA*(04/21/16 UA Color) 10:48 PM) [facility] AND [id number] 03:48:00 Test Item Value Reference Range Interpretation Comments UA pH (test code = UA pH) 8.0 5.0-8.0 [facility] AND [id number] 03:48:00 Test Item Value Reference Range Interpretation Comments UA Spec Grav (test code = UA Spec Grav) 1.011 [facility] AND [id number] 03:48:00 Test Item Value Reference Range Interpretation Comments UA Turbidity (test code Slight *ABN*(04/21/16 = UA Turbidity) 10:48 PM) [facility] AND [id number] 03:48:00 Test Item Value Reference Range Interpretation Comments UA Glucose (test code = UA Negative mg/dL Glucose) [facility] AND [id number] 03:48:00 Test Item Value Reference Range Interpretation Comments UA Blood (test code = Negative (04/21/16 10:48 UA Blood) PM) [facility] AND [id number] 03:48:00 Test Item Value Reference Range Interpretation Comments UA Protein (test code = UA Protein) 30 mg/dL [facility] AND [id number] 03:48:00 Test Item Value Reference Range Interpretation Comments UA Bili (test code = Negative *NA*(04/21/16 UA Bili) 10:48 PM) [facility] AND [id number] 03:48:00 Test Item Value Reference Range Interpretation Comments UA Ketones (test code = UA Negative mg/dL Ketones) [facility] AND [id number] 03:48:00 Test Item Value Reference Range Interpretation Comments UA Nitrite (test code Negative (04/21/16 10:48 = UA Nitrite) PM) [facility] AND [id number] 03:48:00 Test Item Value Reference Range Interpretation Comments UA Leuk Est (test Negative (04/21/16 10:48 code = UA Leuk Est) PM) [facility] AND [id number] 03:48:00 Test Item Value Reference Range Interpretation Comments UA Amorph Chari (test code = Occasional /HPF UA Amorph Chari) [facility] AND [id number] 03:48:00 Test Item Value Reference Range Interpretation Comments UA WBC (test code = 1 See_Comment [Automa randolph message] The UA WBC) system which ge nerated this result transmit randolph reference range : <=5. The reference range was not used to interpr et this result as juan m l/abnormal. [facility] AND [id number] 03:48:00 Test Item Value Reference Range Interpretation Comments UA Mucus (test code = UA Mucus) Few /LPF [facility] AND [id number] 03:48:00 Test Item Value Reference Range Interpretation Comments UA Sq Epi (test code = UA Sq Occasional /LPF Epi) [facility]
--- NOTE | 2022-01-23 18:09 | ER ---
Nurse's Notes [facility] Name: Veena Gray Age: 87 yrs Sex: Female : 1935 Arrival Date: 01/23/2022 Time: 15:42 Bed External Waiting [facility] MD: Angelito Vega B Diagnosis: Presentation: 01/23 16:18 Chief complaint: Patient states: Fatigue/Weak X 2 weeks. BP upon arrival 128/91. ld1 Coronavirus screen: At this time, the client does not indicate any symptoms associated with coronavirus-19. Ebola Screen: No symptoms or risks identified at this time. Initial Sepsis Screen: Does the patient meet any 2 criteria? No. Patient's initial sepsis screen is negative. Does the patient have a suspected source of infection? No. Patient's initial sepsis screen is negative. Risk Assessment: Do you want to hurt yourself or someone else? Patient reports no desire to harm self or others. Onset of symptoms was January 23, 2022. 16:18 Method Of Arrival: Ambulatory ld1 16:18 Acuity: RITIKA 3 ld1 Triage Assessment: 16:19 General: Appears in no apparent distress. comfortable, Behavior is calm, cooperative, ld1 appropriate for age. General: Reports fatigue for >3 days. Pain: Denies pain. EENT: No signs and/or symptoms were reported regarding the EENT system. Neuro: Level of Consciousness is awake, alert, obeys commands, Oriented to person, place, time, situation. Cardiovascular: Capillary refill < 3 seconds Patient's skin is warm and dry. Respiratory: Airway is patent Respiratory effort is even, unlabored. GI: Abdomen is flat, non-distended. GI: Reports nausea. Historical: - Allergies: 16:19 Codeine; ld1 16:19 Macrobid; ld1 16:19 Nitrofurantoin; ld1 16:19 PENICILLINS; ld1 16:19 Sulfa (Sulfonamide Antibiotics); ld1 - PMHx: 16:19 GERD; Myocardial infarction; Vertigo; kidney disease; hiatal hernia; ld1 - PSHx: 16:19 Cholecystectomy; hysterectomy; Iliac stent; ld1 - Immunization history:: Adult Immunizations up to date, Client reports receiving the 2nd dose of the Covid vaccine. - Social history:: Smoking status: Patient denies any tobacco usage or history of. Patient/guardian denies using alcohol. Vital Signs: 16:18 BP 128 / 91; Pulse 132; Resp 18; Temp 98.6(TE); Pulse Ox 100% on R/A; Weight 54.43 kg; ld1 Height 5 ft. 3 in. (160.02 cm); Pain 0/10; 16:18 Body Mass Index 21.26 (54.43 kg, 160.02 cm) ld1 ED Course: 15:42 Patient arrived in ED. as 15:42 Angelito Vega MD is Private Physician. as 15:47 Yusuf Ashley MD is Attending Physician. kdr 16:19 Triage completed. ld1 16:19 Arm band placed on right wrist. ld1 Administered Medications: No medications were administered Outcome: 18:08 Patient left the ED. ss Signatures: Yusuf Ashley MD MD [facility] Delicia Willard Shelby, RN RN Gloria Gutierrez RN RN ld1
[2022-01-23 18:21] VITALS: BP 128/91; TEMP 98.6; O2SAT 100
== END 2022-01-23 18:08 | disposition left against medical advice (07) ==
LOC: ER 15:38
DX: Z53.21 Procedure and treatment not carried out due to patient leaving prior to being seen by health care provider (principal)
CPT/HCPCS: 99281

== ENCOUNTER 2022-02-03 21:10 | Observation (INO) | payer OTHER ==
--- OUTSIDE RECORDS SUMMARY | 2022-02-03 21:20 | XMS REPORT | Continuity of Care Document ---
:1935 Author Organization [facility] t Address [address] [place] [address] Care Team Providers Name Role Phone Charleen [...] Clinician Unavailable DEREJE Admitting Clinician Unavailable Nyasia Cowna Admitting Clinician Unavailable Dereje MANCILLA Admitting Clinician Payers Payer Name Policy Type Policy Number Effective Date Expiration Date S [facility] MEDICARE PART A \\T\\ [id number] 1999 B 00:00:00 [employer] [id number] 2016 00:00:00 Problems Condition Condition Condition Status Onset Resolution Last Treating Co mments Source Name Details Category Date Date Treatment Clinician Date CCL / Diagnosis Active 2018-082019-06-02 Alesia oridanny RENAL 0 05:41:00 l STENT CCL / 00:00: Conrad RENAL 00 STENT Active 05/25/2019 [facility] NEW PT Diagnosis Active 2019-05-05 Mem oria CONSULT - 04-23 14:43:00 l 2ND NEW PT 00:00: Conrad OPINION CONSULT - 00 2ND OPINION Active 04/23/2019 [facility] ATHEROSCLE Diagnosis Active 2016-11-19 Memoria ROSIS OF 10-17 13:05:00 l [place] 00:00: Conrad ARTERIES ATHEROSCLE 00 OF EX ROSIS OF [place] ARTERIES OF EX Active 10/17/2016 [facility] CCL/LEFT Diagnosis Active 2016-10-21 M emoria 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: CCL/LEFT 00:00: Mela nn I70.221 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: I70.221 Active 10/17/2016 [facility] DIZZINESS Diagnosis Active 2016-05-01 Memoria 04-21 22:08:00 l 00:00: Conrad DIZZINESS 00 Active 04/21/2016 [facility] Hyperurice Hyperurice Disease Active U nivers evonne [...] rs active active ity of problems problems [facility] Coronary Problem Resolve 2020-09-01 Me moria arterioscl d 22:24:26 l erosis Coronary [place] (disorder) arterioscl erosis (disorder) Resolved Problem 09/01/2020 CAD with stents [facility], MARIE Carlson Gastroesop Problem Resolve 2020-09-01 Memoria hageal d 22:24:26 l reflux Conrad disease Gastroesop (disorder) hageal reflux disease (disorder) Resolved Problem 09/01/2020 [facility], MARIE Carlson History of Problem Resolve 2020-09-01 Memoria - surgery d 22:24:26 l (context-d History Her carrizales ependent of - category) surgery (context-d ependent category) Resolved Problem 09/01/2020 [facility], MARIE Carlson History of Problem Resolve 2020-09-01 Memoria - vertigo d 22:24:26 l (context-d History Her carrizales ependent of - category) vertigo (context-d ependent category) Resolved Problem 09/01/2020 [facility], MARIE Carlson Hypertensi Problem Resolve 2020-09-01 Memoria ve d 22:24:26 l disorder, [place] systemic Hypertensi arterial ve (disorder) disorder, systemic arterial (disorder) Resolved Problem 09/01/2020 [facility], MARIE Carlson ENCNTR FOR Diagnosis Active 2019-05-05 Memoria GENERAL 14:43:00 l ADULT ENCNTR [place] MEDICAL FOR EXAM W/ GENERAL ADULT MEDICAL EXAM W/ Active [facility] ILLNESS, Diagnosis Active 2016-05-01 M emoria UNSPECIFIE 22:08:00 l D ILLNESS, [place] UNSPECIFIE D Active [facility] Myocardial Problem Resolve 2002-0 2020-09-01 2020-09-01 Memoria infarction d - 22:24:26 22:24:26 l (disorder) 00:00: [place] Myocardial 00 infarction (disorder) Resolved 08/25/2002 Problem 09/01/2020 [facility], MARIE Carlson Allergies, Adverse Reactions, Alerts Allergy Allergy Status Severity Reaction(s) Onset Inactive Treating Comm ents Source Name Type Date Date Clinician Penicill DA Active U HIVES [facility] ins 09-14 [place] 00:00: Health 00 are [facility] Sulfa DA Active U RASH [facility] (Sulfona 09-14 [place] mide 00:00: [facility] Antibiot 00 are ics) [facility] codeine DA Active U NAUSEA [facility] 09-14 [place] 00:00: Health 00 are [facility] Codeine Propensi Active Unknown - [...] ins<sup> ins<sup> 3-26 l 2</sup> 2</sup> 05:00: [place] 00 niacin niacin Active Memoria l [place] Plavix Plavix Active Memoria l [place] Celebrex Celebrex Active Memori a l [place] Keflex Keflex Active Memoria l Conrad penicill penicill Active Memori a ins ins l [place] sulfa sulfa Active Memoria drugs drugs l Conrad codeine codeine Active Memoria l [place] Social History Social Habit Start Date Stop Date Quantity Comments Source Exposure to Not sure [facility] SARS-CoV-2 [facility] (event) [place] Tobacco use and 2020-12-06 2020-12-06 Never used Universit y of exposure 00:00:00 00:00:00 [facility] Tobacco Comment 2020-12-06 2020-12-06 quit 30 yrs ago Univ ersity of 00:00:00 00:00:00 [facility] Sex Ass[birth year] Universit y of 00:00:00 00:00:00 [facility] Smoking Status Start Date Stop Date Source Unknown if ever smoked [facility] Social History 2019-05-05 19:46:47 2019-05-05 19:46:47 [facility] Medications Ordered Filled Start Stop Current Ordering Indication Dosage Frequency Signature Comments Components Source Medication Medication Date Date Medication? Clinician (SIG) Name Name denosumab 2021- No [id number] 60mg 60 mg, U nivers (PROLIA) 3- 03-03 Subcutaneo ity of injection 15:00: 15:05 [place] 60 mg 00 :00 1 dose, On Med ical [place] 10/25/21 Branch at 0915, Routine
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
Reaso n for non-formul miquel use: PATIENT CURRENTLY TAKING NONFORMULA RY PRODUCT denosumab 2020- No [id number] 60mg Un [place] (PROLIA) 04-12 ity of injection 14:15: 14:19 [place] Syrg 60 mg 00 :00 [facility] Branch denosumab 2020- No [id number] 60mg 60 mg, Univers (PROLIA) 04-12 Subcutaneo ity of injection 14:15: 14:19 [place], [place]CE, [place] 60 mg 00 :00 1 dose, Medica l [place] Branch 04/12/21 at 0930, Routine
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
Reaso n for non-formul miquel use: PATIENT CURRENTLY TAKING NONFORMULA RY PRODUCT SERTraline Yes 12.5mg Take 12.5 Univers 25 mg 8-06 mg by ity of tablet 16:25: mouth. [address] [place] Yes 500mg Take 500 Uni vers 500 mg Cap 8-06 mg by ity of 16:25: mouth 2 [place] [address] (two) Medical times [place] daily. iron,carb/f Yes 1{tbl} Take 1 Un [place] olic ac/vit 8-06 tablet by ity of Bcomp,C 16:25: mouth 2 [place] (IRON-FOLIC 07 (two) Medical 500 ORAL) times [place] daily. SERTraline Yes 12.5mg Take 12.5 Univers 25 mg 8-06 mg by ity of tablet 16:25: mouth. [address] [place] Yes 500mg Take 500 Uni vers 500 mg Cap 8-06 mg by ity of 16:25: mouth 2 [place] [address] (two) Medical times [place] daily. iron,carb/f Yes 1{tbl} Take 1 [place] olic ac/vit 8-06 tablet by ity of Bcomp,C 16:25: mouth 2 [place] (IRON-FOLIC 07 (two) Medical 500 ORAL) times [place] daily. SERTraline Yes 12.5mg Take 12.5 Univers 25 mg 8-06 mg by ity of tablet 16:25: mouth. [address] [place] Yes 500mg Take 500 Uni vers 500 mg Cap 8-06 mg by ity of 16:25: mouth 2 [place] [address] (two) Medical times Branch daily. iron,carb/f Yes 1{tbl} Take 1 [place] olic ac/vit 8-06 tablet by ity of Bcomp,C 16:25: mouth 2 [place] (IRON-FOLIC 07 (two) Medical 500 ORAL) times Branch daily. SERTraline Yes 12.5mg Take 12.5 Univers 25 mg 8-06 mg by ity of tablet 11:25: mouth. [address] [place] Yes 500mg Take 500 Uni vers 500 mg Cap 8-06 mg by ity of 11:25: mouth 2 [place] [address] (two) Medical times Branch daily. iron,carb/f Yes 1{tbl} Take 1 [place] olic ac/vit 8-06 tablet by ity of Bcomp,C 11:25: mouth 2 [place] (IRON-FOLIC 07 (two) Medical 500 ORAL) times Branch daily. SERTraline Yes 12.5mg Take 12.5 Univers 25 mg 8-06 mg by ity of tablet 11:25: mouth. [address] [place] Yes 500mg Take 500 Uni vers 500 mg Cap 8-06 mg by ity of 11:25: mouth 2 [place] [address] (two) Medical times [place] daily. iron,carb/f Yes 1{tbl} Take 1 [place] olic ac/vit 8-06 tablet by ity of Bcomp,C 11:25: mouth 2 [place] (IRON-FOLIC 07 (two) Medical 500 ORAL) times Branch daily. folic acid Yes [id number] Take by Univers (FA-8) 0.8 4-15 mouth. ity of mg Cap 15:51: [address] Magnesium Yes [id number] 500mg Take 500 Univers 250 mg Tab 4-15 mg by ity of 15:51: mouth. [address] aspirin 81 Yes 81mg Take 81 mg U nivers mg EC 4-15 by mouth ity of tablet 15:51: daily. [address] CALCIUM Yes Take by Univer s CITRATE 4-15 mouth. ity of ORAL 15:51: [address] NIFEdipine Yes Nifedical [place] XL 30 mg 24 4-15 XL 30 mg ity of hr tablet 15:51: tablet,ext [place] ended Medical release Branch SERTraline Yes sertraline U nivers 25 mg 4-15 25 mg ity of tablet 15:51: tablet [address] mirabegron Yes Take by Uni vers (MYRBETRIQ) 4-15 mouth ity of 50 mg 15:51: daily. [address] ramipriL 10 Yes 10mg Take 10 mg Univers mg capsule 4-15 by mouth ity o f 15:51: daily. [address] folic acid Yes [id number] Take by Univers (FA-8) 0.8 4-15 mouth. ity of mg Cap 15:51: [address] Magnesium Yes [id number] 500mg Take 500 Univers 250 mg Tab 4-15 mg by ity of 15:51: mouth. [address] aspirin 81 Yes 81mg Take 81 mg U nivers mg EC 4-15 by mouth ity of tablet 15:51: daily. [address] CALCIUM Yes Take by Univer s CITRATE 4-15 mouth. ity of ORAL 15:51: [address] NIFEdipine Yes Nifedical [place] XL 30 mg 24 4-15 XL 30 mg ity of hr tablet 15:51: tablet,ext [place] ended Medical release Branch SERTraline Yes sertraline U nivers 25 mg 4-15 25 mg ity of tablet 15:51: tablet [address] mirabegron Yes Take by Uni vers (MYRBETRIQ) 4-15 mouth ity of 50 mg 15:51: daily. [address] ramipriL 10 Yes 10mg Take 10 mg Univers mg capsule 4-15 by mouth ity o f 15:51: daily. [address] folic acid Yes [id number] Take by Univers (FA-8) 0.8 4-15 mouth. ity of mg Cap 15:51: [address] Magnesium Yes [id number] 500mg Take 500 Univers 250 mg Tab 4-15 mg by ity of 15:51: mouth. [address] aspirin 81 Yes 81mg Take 81 mg U nivers mg EC 4-15 by mouth ity of tablet 15:51: daily. [address] CALCIUM Yes Take by Univer s CITRATE 4-15 mouth. ity of ORAL 15:51: [address] NIFEdipine Yes Nifedical [place] XL 30 mg 24 4-15 XL 30 mg ity of hr tablet 15:51: tablet,ext [place] ended Medical release Branch SERTraline Yes sertraline U nivers 25 mg 4-15 25 mg ity of tablet 15:51: tablet [address] mirabegron Yes Take by Uni vers (MYRBETRIQ) 4-15 mouth ity of 50 mg 15:51: daily. [address] ramipriL 10 Yes 10mg Take 10 mg Univers mg capsule 4-15 by mouth ity o f 15:51: daily. [address] folic acid Yes [id number] Take by Univers (FA-8) 0.8 4-15 mouth. ity of mg Cap 15:51: [address] Magnesium Yes [id number] 500mg Take 500 Univers 250 mg Tab 4-15 mg by ity of 15:51: mouth. [address] aspirin 81 Yes 81mg Take 81 mg U nivers mg EC 4-15 by mouth ity of tablet 15:51: daily. [address] CALCIUM Yes Take by Univer s CITRATE 4-15 mouth. ity of ORAL 15:51: [address] NIFEdipine Yes Nifedical [place] XL 30 mg 24 4-15 XL 30 mg ity of hr tablet 15:51: tablet,ext [place] 38 ended Medical release Branch SERTraline Yes sertraline U nivers 25 mg 4-15 25 mg ity of tablet 15:51: tablet [address] mirabegron Yes Take by Uni vers (MYRBETRIQ) 4-15 mouth ity of 50 mg 15:51: daily. [address] ramipriL 10 Yes 10mg Take 10 mg Univers mg capsule 4-15 by mouth ity o f 15:51: daily. [address] folic acid Yes [id number] Take by Univers (FA-8) 0.8 4-15 mouth. ity of mg Cap 15:51: [address] Magnesium Yes [id number] 500mg Take 500 Univers 250 mg Tab 4-15 mg by ity of 15:51: mouth. [address] aspirin 81 Yes 81mg Take 81 mg U nivers mg EC 4-15 by mouth ity of tablet 15:51: daily. [address] CALCIUM Yes Take by Univer s CITRATE 4-15 mouth. ity of ORAL 15:51: [address] NIFEdipine Yes Nifedical [place] XL 30 mg 24 4-15 XL 30 mg ity of hr tablet 15:51: tablet,ext [place] ended Medical release Branch SERTraline Yes sertraline U nivers 25 mg 4-15 25 mg ity of tablet 15:51: tablet [address] mirabegron Yes Take by Uni vers (MYRBETRIQ) 4-15 mouth ity of 50 mg 15:51: daily. [address] ramipriL 10 Yes 10mg Take 10 mg Univers mg capsule 4-15 by mouth ity o f 15:51: daily. [address] folic acid Yes [id number] Take by Univers (FA-8) 0.8 4-15 mouth. ity of mg Cap 15:51: [address] Magnesium Yes [id number] 500mg Take 500 Univers 250 mg Tab 4-15 mg by ity of 15:51: mouth. [address] aspirin 81 0 Yes 81mg Take 81 mg U nivers mg EC 4-15 by mouth ity of tablet 15:51: daily. [address] CALCIUM Yes Take by Univer s CITRATE 4-15 mouth. ity of ORAL 15:51: [address] NIFEdipine Yes Nifedical [place] XL 30 mg 24 4-15 XL 30 mg ity of hr tablet 15:51: tablet,ext [place] 38 ended Medical release Branch SERTraline Yes sertraline U nivers 25 mg 4-15 25 mg ity of tablet 15:51: tablet [address] mirabegron Yes Take by Uni vers (MYRBETRIQ) 4-15 mouth ity of 50 mg 15:51: daily. [address] ramipriL 10 Yes 10mg Take 10 mg Univers mg capsule 4-15 by mouth ity o f 15:51: daily. [address] folic acid Yes [id number] Take by Univers (FA-8) 0.8 4-15 mouth. ity of mg Cap 15:51: [address] Magnesium Yes [id number] 500mg Take 500 Univers 250 mg Tab 4-15 mg by ity of 15:51: mouth. [address] aspirin 81 Yes 81mg Take 81 mg U nivers mg EC 4-15 by mouth ity of tablet 15:51: daily. [address] CALCIUM Yes Take by Univer s CITRATE 4-15 mouth. ity of ORAL 15:51: [address] NIFEdipine Yes Nifedical [place] XL 30 mg 24 4-15 XL 30 mg ity of hr tablet 15:51: tablet[place]ext [place] [address] [place] [address] mirabegron Yes Take by Uni vers (MYRBETRIQ) 4-15 mouth ity of 50 mg 15:51: daily. [address] ramipriL 10 Yes 10mg Take 10 mg Univers mg capsule 4-15 by mouth ity o f 15:51: daily. [address] folic acid Yes [id number] Take by Univers (FA-8) 0.8 4-15 mouth. ity of mg Cap 15:51: [address] Magnesium Yes [id number] 500mg Take 500 Univers 250 mg Tab 4-15 mg by ity of 15:51: mouth. [address] aspirin 81 Yes 81mg Take 81 mg U nivers mg EC 4-15 by mouth ity of tablet 15:51: daily. [address] CALCIUM Yes Take by Univer s CITRATE 4-15 mouth. ity of ORAL 15:51: [address] NIFEdipine Yes Nifedical [place] XL 30 mg 24 4-15 XL 30 mg ity of hr tablet 15:51: tablet,ext [place] ended Medical release [place] mirabegron Yes Take by Uni vers (MYRBETRIQ) 4-15 mouth ity of 50 mg 15:51: daily. [place] [address] Medical [place] ramipriL 10 Yes 10mg Take 10 mg Univers mg capsule 4-15 by mouth ity o f 15:51: daily. [address] folic acid Yes [id number] Take by Univers (FA-8) 0.8 4-15 mouth. ity of mg Cap 15:51: [address] Magnesium Yes [id number] 500mg Take 500 Univers 250 mg Tab 4-15 mg by ity of 15:51: mouth. [address] aspirin 81 Yes 81mg Take 81 mg U nivers mg EC 4-15 by mouth ity of tablet 15:51: daily. [address] CALCIUM Yes Take by Univer s CITRATE 4-15 mouth. ity of ORAL 15:51: [address] NIFEdipine Yes Nifedical [place] XL 30 mg 24 4-15 XL 30 mg ity of hr tablet 15:51: tablet,ext [place] ended Medical release [place] mirabegron Yes Take by Uni vers (MYRBETRIQ) 4-15 mouth ity of 50 mg 15:51: daily. [place] [address] Medical [place] ramipriL 10 Yes 10mg Take 10 mg Univers mg capsule 4-15 by mouth ity o f 15:51: daily. [place] [address] Medical [place] mupirocin 2020- No Intra-op Uni vers (BACTROBAN 12-07 ity of OINT) 2 % 14:46: 17:51 [place] skin 00 :38 Medical ointment Branch bupivacaine 2020- No PRN, Unive rs liposome 12-07 Starting ity of (PF) 14:42: 17:51 [place] (EXPAREL 00 :38 12/07/20 at Medic al (PF)) 1.3 % 0942, [place] (13.3 Until [place] mg/mL) 12/07/20 at injection 1251, Routine, Intra-op sodium 2020- No PRN, Univers chloride 12-07 04-15 Starting ity of 0.9 % 14:38: 17:51 [place] irrigation 00 :38 12/07/20 at Med ical solution 0938, Branch Until [place] 12/07/20 at 1251, Intra-op lactated 2020- No 1000[facility] 4-15 04-15 mL/hr, ity of infusion 13:00: 13:27 1,000 mL, [place] as 1,000 mL 00 :00 IV Medical Infusion, Branch ONCE, 1 dose, [place] 12/07/20 at 0800, Routine, DSU Pre-op lactated 2020- No 1000mL at 42 [facility] IV -15 04-15 mL/hr, ity of infusion 13:00: 13:27 1,000 mL, Laurent as 1,000 mL 00 :00 IV Medical Infusion, Branch ONCE, 1 dose, [place] 12/07/20 at 0800, Routine, DSU Pre-op folic acid Yes [id number] Take by Univers (FA-8) 0.8 4-15 mouth. ity of mg Cap 10:51: [address] Magnesium Yes [id number] 500mg Take 500 Univers 250 mg Tab 4-15 mg by ity of 10:51: mouth. [address] aspirin 81 Yes 81mg Take 81 mg U nivers mg EC 4-15 by mouth ity of tablet 10:51: daily. [address] CALCIUM Yes Take by [facility] CIT[facility] 4-15 mouth. ity of ORAL 10:51: [address] NIFEdipine Yes Nifedical [place] XL 30 mg 24 4-15 XL 30 mg ity of hr tablet 10:51: tablet,ext [place] [address] [place] [address] mirabegron Yes Take by Uni vers (MYRBETRIQ) 4-15 mouth ity of 50 mg 10:51: daily. [address] ramipriL 10 Yes 10mg Take 10 mg Univers mg capsule 4-15 by mouth ity o f 10:51: daily. [address] folic acid Yes [id number] Take by Univers (FA-8) 0.8 4-15 mouth. ity of mg Cap 10:51: [address] Magnesium Yes [id number] 500mg Take 500 Univers 250 mg Tab 4-15 mg by ity of 10:51: mouth. [address] aspirin 81 Yes 81mg Take 81 mg U nivers mg EC 4-15 by mouth ity of tablet 10:51: daily. [address] CALCIUM Yes Take by Univer s CITRATE 4-15 mouth. ity of ORAL 10:51: [address] NIFEdipine Yes Nifedical [place] XL 30 mg 24 4-15 XL 30 mg ity of hr tablet 10:51: tablet[place]ext [place] [address] [place] [address] release [place] mirabegron Yes Take by Uni vers (MYRBETRIQ) 4-15 mouth ity of 50 mg 10:51: daily. [address] ramipriL 10 Yes 10mg Take 10 mg Univers mg capsule 4-15 by mouth ity o f 10:51: daily. [address] Magnesium Yes [id number] 500mg Take 500 Univers 250 mg Tab 4-14 mg by ity of 16:39: mouth. [address] aspirin 81 Yes 81mg Take 81 mg U nivers mg EC 4-14 by mouth ity of tablet 16:39: daily. [address] CALCIUM Yes Take by Univer s CITRATE 4-14 mouth. ity of ORAL 16:39: [address] NIFEdipine Yes Nifedical [place] XL 30 mg 24 4-14 XL 30 mg ity of hr tablet 16:39: tablet,ext [place] [address] [place] [address] SERTraline Yes sertraline U nivers 25 mg 4-14 25 mg ity of tablet 16:39: tablet [address] mirabegron Yes Take by Uni vers (MYRBETRIQ) 4-14 mouth ity of 50 mg 16:39: daily. [address] Magnesium Yes [id number] 500mg Take 500 Univers 250 mg Tab 4-14 mg by ity of 16:39: mouth. [address] aspirin 81 Yes 81mg Take 81 mg U nivers mg EC 4-14 by mouth ity of tablet 16:39: daily. [address] CALCIUM Yes Take by Univer s CITRATE 4-14 mouth. ity of ORAL 16:39: [address] NIFEdipine Yes Nifedical [place] XL 30 mg 24 4-14 XL 30 mg ity of hr tablet 16:39: tablet,ext [place] [facility] Branch SERTraline Yes sertraline U nivers 25 mg 4-14 25 mg ity of tablet 16:39: tablet [address] mirabegron Yes Take by Uni vers (MYRBETRIQ) 4-14 mouth ity of 50 mg 16:39: daily. [facility] NIFEdipine Yes Nifedical [place] XL 30 mg 24 2-11 XL 30 mg ity of hr tablet 21:33: tablet,ext [place] [facility] Branch SERTraline Yes sertraline U nivers 25 mg 2-11 25 mg ity of tablet 21:33: tablet [place] [facility] NIFEdipine Yes Nifedical [place] XL 30 mg 24 2-11 XL 30 mg ity of hr tablet 21:33: tablet,ext [place] [facility] release Branch SERTraline Yes sertraline U nivers 25 mg 2-11 25 mg ity of tablet 21:33: tablet [place] [facility] NIFEdipine Yes Nifedical [place] XL 30 mg 24 2-11 XL 30 mg ity of hr tablet 21:33: tablet,ext [place] Medical release Branch SERTraline Yes sertraline U nivers 25 mg 2-11 25 mg ity of tablet 21:33: tablet [place] 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, Weight 24 HR 2019-08 Yes 50 mg [...] sony in 0 (Same l 14:55: as:Nitroqu Conrad 00 ick, Nitrostat) "Do Not Crush" Sublingual tablet Hydralazine 2018-08 No 10 mg, Arturo sony Route: IV, l 11:50: ONCE, Dosing Weight 65.909, kg, Start date: 06/02/19 6:50:00 CDT, Stop date: 06/02/19 6:50:00 CDT oxybutynin 2018-08 Yes 5 mg = 1 Mem oria 5 mg oral 0-09 tab, PO, l tablet, 10:59: QAM, 0 [place] extended 00 Refill(s) release ramipril 10 2018-08 Yes 10 mg = 1 M emoria mg oral 0 cap, PO, l capsule 10:59: BID, 0 [place] 00 Refill(s) [place] 2018-08 Yes 1 tab, PO, Memor ia Calcium 0- BID, 0 l with 10:59: Refill(s) Vitamin D 00 Chelated 2018-08 Yes See Memoria Magnesium 0 Instructio l 10:59: ns, 250 mg [place] 00 PO QPM, 0 Refill(s) Bifidobacte Yes [...] 6 tab, 0 Refill(s) folic acid Yes [id number] Take by Univers (FA-8) 0.8 8-16 mouth. ity of mg Cap 13:45: [address] Magnesium Yes [id number] 500mg Take 500 Univers 250 mg Tab 8-16 mg by ity of 13:45: mouth. [address] aspirin 81 Yes 81mg Take 81 mg U nivers mg EC 8-16 by mouth ity of tablet 13:45: daily. [address] CALCIUM 2019-0 Yes Take by Univer s CITRATE 8-16 mouth. ity of ORAL 13:45: [address] folic acid 2019-0 Yes [id number] Take by Univers (FA-8) 0.8 8-16 mouth. ity of mg Cap 13:45: [address] Magnesium 2019-0 Yes [id number] 500mg Take 500 Univers 250 mg Tab 8-16 mg by ity of 13:45: mouth. [address] aspirin 81 20190 Yes 81mg Take 81 mg U nivers mg EC 8-16 by mouth ity of tablet 13:45: daily. [address] CALCIUM 2018-0 Yes Take by Univer s CITRATE 8-16 mouth. ity of ORAL 13:45: [address] folic acid 2019-0 Yes [id number] Take by Univers (FA-8) 0.8 8-16 mouth. ity of mg Cap 13:45: [address] Magnesium 2018- Yes [id number] 500mg Take 500 Univers 250 mg Tab 8-16 mg by ity of 13:45: mouth. [address] aspirin 81 0 Yes 81mg Take 81 mg U nivers mg EC 8-16 by mouth ity of tablet 13:45: daily. [address] CALCIUM 2018-0 Yes Take by Univer s CITRATE 8-16 mouth. ity of ORAL 13:45: [address] folic acid 2019-0 Yes [id number] Take by Univers (FA-8) 0.8 8-16 mouth. ity of mg Cap 13:45: [address] Magnesium 2019-0 Yes [id number] 500mg Take 500 Univers 250 mg Tab 8-16 mg by ity of 13:45: mouth. [address] aspirin 81 2018-0 Yes 81mg Take 81 mg U nivers mg EC 8-16 by mouth ity of tablet 13:45: daily. [address] CALCIUM 2019-0 Yes Take by Univer s CITRATE 8-16 mouth. ity of ORAL 13:45: [address] folic acid 2019-0 Yes [id number] Take by Univers (FA-8) 0.8 8-16 mouth. ity of mg Cap 13:45: [address] Magnesium 2019-0 Yes [id number] 500mg Take 500 Univers 250 mg Tab 8-16 mg by ity of 13:45: mouth. [address] aspirin 81 2019 Yes 81mg Take 81 mg U nivers mg EC 8-16 by mouth ity of tablet 13:45: daily. [address] CALCIUM 2019-0 Yes Take by Univer s CITRATE 8-16 mouth. ity of ORAL 13:45: [address] folic acid 2019 Yes [id number] Take by Univers (FA-8) 0.8 8-16 mouth. ity of mg Cap 13:45: [address] Magnesium 2018- Yes [id number] 500mg Take 500 Univers 250 mg Tab 8-16 mg by ity of 13:45: mouth. [address] aspirin 81 Yes 81mg Take 81 mg U nivers mg EC 8-16 by mouth ity of tablet 13:45: daily. [address] CALCIUM Yes Take by Univer s CITRATE 8-16 mouth. ity of ORAL 13:45: [address] folic acid Yes [id number] Take by Univers (FA-8) 0.8 8-16 mouth. ity of mg Cap 13:45: [address] Magnesium 2018- Yes [id number] 500mg Take 500 Univers 250 mg Tab 8-16 mg by ity of 13:45: mouth. [address] aspirin 81 Yes 81mg Take 81 mg U nivers mg EC 8-16 by mouth ity of tablet 13:45: daily. [address] CALCIUM 2018- Yes Take by Univer s CITRATE 8-16 mouth. ity of ORAL 13:45: [address] folic acid 2019- Yes [id number] Take by Univers (FA-8) 0.8 8-16 mouth. ity of mg Cap 13:45: [address] Magnesium 2019-0 Yes [id number] 500mg Take 500 [facility] 250 mg Tab 8-16 mg by ity of 13:45: mouth. [address] aspirin 81 Yes 81mg Take 81 mg U nivers mg EC 8-16 by mouth ity of tablet 13:45: daily. [address] CALCIUM 2019- Yes Take by Univer s CITRATE 8-16 mouth. ity of ORAL 13:45: [address] folic acid 2019-0 Yes [id number] Take by Univers (FA-8) 0.8 8-16 mouth. ity of mg Cap 13:45: [address] Magnesium 2019-0 Yes [id number] 500mg Take 500 [facility] 250 mg Tab 8-16 mg by ity of 13:45: mouth. [address] aspirin 81 Yes 81mg Take 81 mg U nivers mg EC 8-16 by mouth ity of tablet 13:45: daily. [address] CALCIUM 2019-0 Yes Take by Univer s CITRATE 8-16 mouth. ity of ORAL 13:45: [address] folic acid 2019- Yes [id number] Take by Univers (FA-8) 0.8 8-16 mouth. ity of mg Cap 13:45: [address] Magnesium 2019- Yes [id number] 500mg Take 500 [facility] 250 mg Tab 8-16 mg by ity of 13:45: mouth. [address] aspirin 81 Yes 81mg Take 81 mg U nivers mg EC 8-16 by mouth ity of tablet 13:45: daily. [address] CALCIUM 2018- Yes Take by Univer s CITRATE 8-16 mouth. ity of ORAL 13:45: [address] folic acid 2019- Yes [id number] Take by Univers (FA-8) 0.8 8-16 mouth. ity of mg Cap 13:45: [address] Magnesium 2019- Yes [id number] 500mg Take 500 [facility] 250 mg Tab 8-16 mg by ity of 13:45: mouth. [address] aspirin 81 2019 Yes 81mg Take 81 mg U nivers mg EC 8-16 by mouth ity of tablet 13:45: daily. [address] CALCIUM 2019-0 Yes Take by Univer s CITRATE 8-16 mouth. ity of ORAL 13:45: [address] folic acid 2019-0 Yes [id number] Take by Univers (FA-8) 0.8 8-16 mouth. ity of mg Cap 13:45: [address] Magnesium 2019- Yes [id number] 500mg Take 500 [facility] 250 mg Tab 8-16 mg by ity of 13:45: mouth. [address] aspirin 81 2019-0 Yes 81mg Take 81 mg U nivers mg EC 8-16 by mouth ity of tablet 13:45: daily. [address] CALCIUM 2019- Yes Take by Univer s CITRATE 8-16 mouth. ity of ORAL 13:45: [address] folic acid 2019- Yes [id number] Take by Univers (FA-8) 0.8 8-16 mouth. ity of mg Cap 13:45: [address] Magnesium 2019- Yes [id number] 500mg Take 500 [facility] 250 mg Tab 8-16 mg by ity of 13:45: mouth. [address] aspirin 81 0 Yes 81mg Take 81 mg U nivers mg EC 8-16 by mouth ity of tablet 13:45: daily. [address] CALCIUM 2019- Yes Take by Univer s CITRATE 8-16 mouth. ity of ORAL 13:45: [address] folic acid 2019- Yes [id number] Take by Univers (FA-8) 0.8 8-16 mouth. ity of mg Cap 13:45: [address] Magnesium 2019- Yes [id number] 500mg Take 500 [facility] 250 mg Tab 8-16 mg by ity of 13:45: mouth. [address] aspirin 81 2018- Yes 81mg Take 81 mg U nivers mg EC 8-16 by mouth ity of tablet 13:45: daily. [address] CALCIUM 2019-0 Yes Take by Univer s CITRATE 8-16 mouth. ity of ORAL 13:45: [address] folic acid 2019- Yes [id number] Take by Univers (FA-8) 0.8 8-16 mouth. ity of mg Cap 13:45: [address] folic acid 2019-0 Yes [id number] Take by Univers (FA-8) 0.8 8-16 mouth. ity of mg Cap 13:45: [address] CALCIUM 2017-0 Yes Take by Univer s CITRATE 7-11 mouth. ity of ORAL 18:20: [address] aspirin 81 2017-0 Yes 81mg Take 81 mg U nivers mg EC 7-11 by mouth ity of tablet 18:20: daily. [address] aspirin 81 2017-0 No Notes: Do Me moria mg tablet, 3-07 not crush l enteric 15:00: or chew. [place] coated 00 (Same As: Ecotrin) clopidogrel No 75 mg, Arturo sony 307 Route: PO, l 15:00: Drug form: [place] 00 TAB, Daily, Dosing Weight 64.545, kg, Start date: 10/29/16 9:00:00 [employer], Duration: 30 day, Stop date: 11/27/16 9:00:00 CDT Magnesium No Notes: Memori a Oxide 10-29 (Same as: l 15:00: Mag-Ox 400) Magnesium oxide [id number]=497k g elemental magnesium Dose=____m g magnesium oxide (___mg elemental magnesium) Folic Acid No 0.8 mg, 2 Me moria 3-07 tab, l 15:00: Route: PO, Drug form: TAB, Daily, Dosing Weight 64.545, kg, Start date: 10/29/16 9:00:00 [employer], Duration: 30 day, Stop date: 11/27/16 9:00:00 CDT ferrous No 325 mg, 1 Memor ia sulfate - tab, l 15:00: Route: PO, Drug form: ECTAB, Daily, Dosing Weight 64.545, kg, Start date: 10/29/16 9:00:00 [employer], Duration: 30 day, Stop date: 11/27/16 9:00:00 [...] Weight 64.545, kg, Start date: 10/29/16 6:30:00 [employer], Duration: 30 day, Stop date: 11/27/16 6:30:00 CDT Ticagrelor No Notes: Memor ia 3-07 (Same as: l 12:00: Brilinta) [place] 00 ticagrelor No Notes: Memor ia 3-07 (Same as: l 04:00: Brilinta) [place] 00 Saline No Notes: [facility] Flush 0.9% 3-07 (Same as: l 03:00: BD [place] Posiflush) Brilinta No 60 mg, Memoria 10-29 Route: PO, l 03:00: Drug form: [place] 00 TAB, Q12H, Dosing Weight 64.545, kg, Start date: 10/28/16 21:00:00 [employer], Duration: 30 day, Stop date: 11/27/16 9:00:00 [...] 10-28 Route: PO, l 23:59: Drug form: [place] 00 TAB, ONCE, Dosing Weight 64.545, kg, Priority: NOW, Start date: 10/28/16 17:59:00 [employer], Stop date: 10/28/16 17:59:00 [employer] Nitroglycer No Notes: Arturo sony in 10-28 (Same l 23:59: as:Nitroqu ick, Nitrostat) "Do Not Crush" Sublingual tablet Acetaminoph No Notes: Do M emoria en 10-28 not exceed l 23:59: 4 gm/day. [place] 00 (Same as: Tylenol) Sodium No 25 mL, Memoria Chloride 10-28 Rate: 20 l 0.154 23:59: ml/hr, [place] MEQ/ML 00 Infuse Injectable over: 1.3 Solution hr, Route: IV, Dosing Weight 64.545 kg, Total Volume: 25, Start date: 10/28/16 17:59:00 [employer], Duration: 24 hr, Stop date: 10/29/16 17:58:00 [employer] Midodrine No 2.5 mg, Memor ia 10-28 Route: PO, l 23:00: Drug form: [place] 00 TAB, TID, Dosing Weight 64.545, kg, Start date: 10/28/16 17:00:00 [employer], Duration: 30 day, Stop date: 11/27/16 13:00:00 CDT oxybutynin No Notes: Memor ia 10-28 Same as: l 23:00: Ditropan) [place] 00 Triamcinolo No Notes: Arturo sony ne 10-28 (Same As: l Acetonide 23:00: Kenalog) Herm angela 0.001 MG/MG 00 Topical Ointment lansoprazol No Notes: Arturo sony e 10-28 Take 1 l 22:30: hour [place] 00 [...] # 60 l tablet 22:09: tab, 0 [place] 00 Refill(s) Nitroglycer No 0.4 mg, 1 M emoria in 10-28 tab, l 22:00: Route: SL, [place] 00 Drug form: TAB, Q5Min, Dosing Weight 64.545, kg, PRN Chest Pain, Start date: 10/28/16 16:00:00 [employer], Duration: 3 doses or times, Stop date: Limited # of times Sodium No 750 mL, Mem[facility] Chloride 10-28 Rate: 75 l 0.154 22:00: ml/hr, [place] MEQ/ML 00 Infuse Injectable over: 10 Solution hr, Route: IV, Dosing Weight 64.545 kg, Total Volume: 750, Start date: 10/28/16 16:00:00 [employer], Duration: 10 hr, Stop date: 10/29/16 1:59:00 [employer] ferrous Yes 325 mg = 1 Arturo [...] Total Volume: 1,000, Start date: 10/28/16 13:25:00 [employer], Duration: 30 day, Stop date: 11/27/16 13:24:00 CDT Sodium No 250 mL, Memoria Chloride 10-28 Rate: 250 l 0.154 19:24: ml/hr, [place] MEQ/ML 00 Infuse Injectable over: 1 Solution hr, Route: IV, Dosing Weight 64.545 kg, Total Volume: 250, Start date: 10/28/16 13:24:00 [employer], Duration: 30 day, Stop date: 11/27/16 14:23:00 [...] 04-26 25 mg l tablet 02:00: tablet, [place] 00 0.5 tab, Drug form: MISC, Route: PO, Bedtime, 04/25/16 21:00:00 CDT, Duration: 30 day, Stop date: 05/24/16 21:00:00 CDT potassium No Notes: Memori a chloride 04-25 (Same as: l 14:30: Potassium Chloride) Mag-Ox 400 No 500 mg, Arturo sony 04-25 Route: PO, l 14:00: Drug form: [place] 00 TAB, Daily, Dosing Weight 68.636, kg, Start date: 04/25/16 9:00:00 CDT, Duration: 30 day, Stop date: 05/24/16 9:00:00 CDT Sertraline No Sertraline M emoria 25 mg 04-25 25 mg l tablet 02:00: tablet, [place] 00 0.5 tab, Drug form: MISC, Route: [...] 8-31 mg tab, l 18:00: 2.5 mg, [place] 00 0.5 tab, Drug form: MISC, Route: PO, BID, 04/24/16 13:00:00 CDT, Duration: 30 day, Stop date: 05/24/16 9:00:00 CDT Midodrine No Notes: Memori a 8-31 (Same l 18:00: as:Proamat [place] 00 ine) bisoprolol No Notes: Memor ia 831 (Same As: l 16:30: Zebeta) [place] 00 2.5 mg = 1/2 x 5 mg tab Keflex No Notes: Memoria 8-31 Take on l 14:00: empty [place] stomach. (Same As: Keflex) Vitamin D3 No Notes: Memor ia 831 Same as : l 14:00: Vitamin D3 [place] 00 Folic Acid No 0.8 mg, 2 Me moria 04-24 tab, l 14:00: Route: PO, [place] 00 Drug form: TAB, [...] 831 25 mg l tablet 14:00: tablet, [place] 00 0.5 tab, Drug form: MISC, Route: PO, Daily, 04/24/16 9:00:00 CDT, Duration: 30 day, Stop date: 05/23/16 9:00:00 CDT Sertraline No 12.5 mg, Mem oria 831 Route: PO, l 14:00: Drug form: [place] 00 TAB, Daily, Dosing Weight 68.636, kg, [...] 11:53: Mag-Ox [place] 00 400) Magnesium oxide 195ts=902l g elemental magnesium Dose=____m g magnesium oxide (___mg elemental magnesium) Hydralazine No Notes: Arturo sony 8-30 (Same as: l 09:51: Apresoline [place] 00 ) Push over 5 minutes hydrALAZINE No Notes: Arturo sony 8-30 (Same as: l 08:32: Apresoline [place] ) Push over 5 minutes Hydralazine No Notes: Arturo sony 8-30 (Same as: l 08:09: Apresoline [place] ) Push over 5 minutes Ramipril No Notes: Memoria 8-30 (Same l 07:08: as:Altace) [place] 00 24 HR No Notes: Memoria Nifedipine 8-30 (Same as: l 30 MG 02:43: Adalat CC, [place] Extended 00 Procardia Release XL) Give Tablet on empty [Procardia] stomach. Take 1 hour before or 2 hours after meal; "Avoid grapefruit and grapefruit juice". Do not crush Synthroid No Notes: Memori a 8-29 Take 1 l 14:10: hour [place] 00 before or 2 hours after meal; Enteral feeds may interefere with the absorption of this medication . (Same as:Synthro id, Levothroid ) Aspirin No Notes: (Do Arturo sony 8-29 Not Crush) l 14:00: Do not [place] 00 crush or chew. Thyroxine No Notes: Memori a 8-29 Take 1 l 11:30: hour [place] 00 before or 2 hours after meal; Enteral feeds may interefere with the absorption of this medication . (Same as:Synthro id, Levothroid ) heparin No Notes: Memoria 04-22 porcine l 05:00: heparin [place] 00 Ramipril No Notes: Memoria 04-22 (Same l 03:10: as:Altace) [place] 00 Phenergan No Notes: Memori a 04-22 (Same as: l 02:37: Phenergan) [place] 00 6.25 mg = 1/2 x 12.5 [...] tab, PO, l tablet 02:36: Daily, 0 [place] 00 Refill(s) Cephalexin Yes 500 mg = 1 M emoria 500 MG Oral 8-29 cap, PO, l Capsule 02:36: Daily, # [place] [Keflex] 00 40 cap, 0 Refill(s) sertraline Yes See Memoria 25 mg oral 8-29 Instructio l tablet 02:36: ns, 0.5 [place] 00 tab PO Daily 30 day, 1 Refill(s) Aspirin 325 Yes 325 mg = 1 Memoria MG Oral 8-29 tab, PO, l Tablet 02:36: Daily, # [place] 00 30 tab, 0 Refill(s) potassium Yes 15 mEq = 1 Me moria citrate 15 8-29 tab, PO, l MEQ 02:36: Daily, 0 [place] Extended 00 Refill(s) Release Tablet [Urocit-K] Probiotic Yes 1 cap, PO, Me moria Formula 8-29 Daily, 0 l oral 02:36: Refill(s) [place] capsule 00 24 HR No 30 mg [...] Memoria 04-22 (Same as: l 02:32: Colace) [place] (Do Not Crush) Acetaminoph No Notes: Do M emoria en 04-22 not exceed l 02:32: 4 gm/day. [place] (Same as: Tylenol) Vitamin D3 Yes 0 [...] [Keflex] 00 cap, 0 Refill(s) Magnesium Yes [id number] 500mg Take 500 Univers 250 mg Tab 3-14 mg by ity of 20:10: mouth. [address] Branch cephALEXin Yes Univers (KEFLEX) 1-19 ity of 500 mg 00:00: [place] capsule 00 [facility] Branch oxybutynin 2016-0 Yes Univers XL 1-19 [...] hr tablet Branch folic acid 0 Yes [id number] Take by Univers (FA-8) 0.8 9-28 mouth. ity of mg Cap 17:57: [place] [facility] SERTraline 0 Yes [id number] 12.5mg 12.5 mg. Univers (ZOLOFT) 25 9-23 ity of mg tablet 00:00: [place] 00 [facility] SYNTHROID 0 Yes [id number] Univ ers 75 mcg 9-23 ity of tablet 00:00: Medical Branch SERTraline 0 Yes [id number] 12.5mg 12.5 mg. Univers (ZOLOFT) 25 9-23 ity of mg tablet 00:00: [place] 00 [facility] SYNTHROID 0 Yes [id number] Univ ers 75 mcg 9-23 ity of tablet 00:00: [place] 00 [facility] SERTraline 0 Yes [id number] 12.5mg 12.5 mg. Univers (ZOLOFT) 25 9-23 ity of mg tablet 00:00: [place] [facility] SYNTHROID 2014-0 Yes [id number] Univ ers 75 mcg 9-23 ity of tablet 00:00: [place] [facility] SERTraline 2015-0 Yes [id number] 12.5mg 12.5 mg. Univers (ZOLOFT) 25 9-23 ity of mg tablet 00:00: [place] [facility] SYNTHROID 2014-0 Yes [id number] Univ ers 75 mcg 9-23 ity of tablet 00:00: [place] [facility] SERTraline 2014-0 Yes [id number] 12.5mg 12.5 mg. Univers (ZOLOFT) 25 9-23 ity of mg tablet 00:00: [address] SYNTHROID 2014-0 Yes [id number] Univ ers 75 mcg 9-23 ity of tablet 00:00: [address] SERTraline 2014-0 Yes [id number] 12.5mg 12.5 mg. Univers (ZOLOFT) 25 9-23 ity of mg tablet 00:00: [address] SYNTHROID 2014-0 Yes [id number] Univ ers 75 mcg 9-23 ity of tablet 00:00: [address] SERTraline 2015-0 Yes [id number] 12.5mg 12.5 mg. Univers (ZOLOFT) 25 9-23 ity of mg tablet 00:00: [place] [facility] SYNTHROID 2015-0 Yes [id number] Univ ers 75 mcg 9-23 ity of tablet 00:00: [place] [facility] SERTraline 2015-0 Yes [id number] 12.5mg 12.5 mg. Univers (ZOLOFT) 25 9-23 ity of mg tablet 00:00: [place] [facility] SYNTHROID 2014-0 Yes [id number] Univ ers 75 mcg 9-23 ity of tablet 00:00: [place] [facility] SERTraline 2014-0 Yes [id number] 12.5mg 12.5 mg. Univers (ZOLOFT) 25 9-23 ity of mg tablet 00:00: [place] [facility] SYNTHROID 2014-0 Yes [id number] Univ ers 75 mcg 9-23 ity of tablet 00:00: [place] 00 [facility] SERTraline 2015-0 Yes [id number] 12.5mg 12.5 mg. Univers (ZOLOFT) 25 9-23 ity of mg tablet 00:00: [place] 00 [facility] SYNTHROID 2015-0 Yes [id number] Univ ers 75 mcg 9-23 ity of tablet 00:00: [place] [address] Medical Branch SERTraline 2015-0 Yes [id number] 12.5mg 12.5 mg. Univers (ZOLOFT) 25 9-23 ity of mg tablet 00:00: [place] [facility] SYNTHROID 2015-0 Yes [id number] Univ ers 75 mcg 9-23 ity of tablet 00:00: [place] [address] Medical Branch SYNTHROID 2015-0 Yes [id number] Univ ers 75 mcg 9-23 ity of tablet 00:00: [place] [address] Medical Branch SYNTHROID 2015-0 Yes [id number] Univ ers 75 mcg 9-23 ity of tablet 00:00: [place] [address] Medical Branch SYNTHROID 2015-0 Yes [id number] Univ ers 75 mcg 9-23 ity of tablet 00:00: [place] [address] Medical Branch SYNTHROID 2015-0 Yes [id number] Univ ers 75 mcg 9-23 ity of tablet 00:00: [place] [address] Medical Branch SYNTHROID 2015-0 Yes [id number] Univ ers 75 mcg 9-23 ity of tablet 00:00: [place] [facility] SYNTHROID 2015-0 Yes [id number] Univ ers 75 mcg 9-23 ity of tablet 00:00: [place] [address] Medical Branch SYNTHROID 2015-0 Yes [id number] Univ ers 75 mcg 9-23 ity of tablet 00:00: [place] [facility] SYNTHROID 2015-0 Yes [id number] Univ ers 75 mcg 9-23 ity of tablet 00:00: [place] [facility] SYNTHROID 2015-0 Yes [id number] Univ ers 75 mcg 9-23 ity of tablet 00:00: [place] 00 [facility] SYNTHROID 2015-0 Yes [id number] Univ ers 75 mcg 9-23 ity of tablet 00:00: [place] [facility] SYNTHROID 2015-0 Yes [id number] Univ ers 75 mcg 9-23 ity of tablet 00:00: [place] [address] Medical Branch SYNTHROID 2015-0 Yes [id number] Univ ers 75 mcg 9-23 ity of tablet 00:00: [place] 00 [facility] SYNTHROID 2015-0 Yes [id number] Univ ers 75 mcg 9-23 ity of tablet 00:00: [place] 00 [facility] SYNTHROID 2015-0 Yes [id number] Univ ers 75 mcg 9-23 ity of tablet 00:00: [place] 00 [facility] SYNTHROID 2015-0 Yes [id number] Univ ers 75 mcg 9-23 ity of tablet 00:00: [place] 00 [facility] SYNTHROID 2015-0 Yes [id number] Univ ers 75 mcg 9-23 ity of tablet 00:00: [place] 00 [facility] SYNTHROID 2015-0 Yes [id number] Univ ers 75 mcg 9-23 ity of tablet 00:00: [place] 00 [facility] Immunizations Ordered Filled Immunization Date Status Comments [facility] e Immunization Name Name SARS-COV-2 COVID-19 2020-11-06 Completed Unive rsity of PFIZER VACCINE 00:00:00 [facility] SARS-COV-2 COVID-19 2020-11-06 Completed Unive rsity of PFIZER VACCINE 00:00:00 [facility] SARS-COV-2 COVID-19 2020-11-06 Completed Unive rsity of PFIZER VACCINE 00:00:00 [facility] SARS-COV-2 COVID-19 2020-11-06 Completed Unive rsity of PFIZER VACCINE 00:00:00 [facility] SARS-COV-2 COVID-19 2020-11-06 Completed Unive rsity of PFIZER VACCINE 00:00:00 [facility] SARS-COV-2 COVID-19 2020-11-06 Completed Unive rsity of PFIZER VACCINE 00:00:00 [facility] SARS-COV-2 COVID-19 2020-11-06 Completed Unive rsity of PFIZER VACCINE 00:00:00 [facility] SARS-COV-2 COVID-19 2020-11-06 Completed Unive rsity of PFIZER VACCINE 00:00:00 [facility] SARS-COV-2 COVID-19 2020-11-06 Completed Unive rsity of PFIZER VACCINE 00:00:00 [facility] SARS-COV-2 COVID-19 2020-11-06 Completed Unive rsity of PFIZER VACCINE 00:00:00 [facility] SARS-COV-2 COVID-19 2020-11-06 Completed Unive rsity of PFIZER VACCINE 00:00:00 [place] [facility] SARS-COV-2 COVID-19 2020-11-06 Completed Unive rsity of PFIZER VACCINE 00:00:00 [facility] SARS-COV-2 COVID-19 2020-11-06 Completed Unive rsity of PFIZER VACCINE 00:00:00 [facility] SARS-COV-2 COVID-19 2020-11-06 Completed Unive rsity of PFIZER VACCINE 00:00:00 [facility] SARS-COV-2 COVID-19 2020-11-06 Completed Unive rsity of PFIZER VACCINE 00:00:00 [facility] SARS-COV-2 COVID-19 2020-10-16 Completed Unive rsity of PFIZER VACCINE 00:00:00 [facility] SARS-COV-2 COVID-19 2020-10-16 Completed Unive rsity of PFIZER VACCINE 00:00:00 [facility] SARS-COV-2 COVID-19 2020-10-16 Completed Unive rsity of PFIZER VACCINE 00:00:00 [facility] SARS-COV-2 COVID-19 2020-10-16 Completed Unive rsity of PFIZER VACCINE 00:00:00 [facility] SARS-COV-2 COVID-19 2020-10-16 Completed Unive rsity of PFIZER VACCINE 00:00:00 [facility] SARS-COV-2 COVID-19 2020-10-16 Completed Unive rsity of PFIZER VACCINE 00:00:00 [facility] SARS-COV-2 COVID-19 2020-10-16 Completed Unive rsity of PFIZER VACCINE 00:00:00 [facility] SARS-COV-2 COVID-19 2020-10-16 Completed Unive rsity of PFIZER VACCINE 00:00:00 [facility] SARS-COV-2 COVID-19 2020-10-16 Completed Unive rsity of PFIZER VACCINE 00:00:00 [facility] SARS-COV-2 COVID-19 2020-10-16 Completed Unive rsity of PFIZER VACCINE 00:00:00 [facility] SARS-COV-2 COVID-19 2020-10-16 Completed Unive rsity of PFIZER VACCINE 00:00:00 [facility] SARS-COV-2 COVID-19 2020-10-16 Completed Unive rsity of PFIZER VACCINE 00:00:00 [facility] SARS-COV-2 COVID-19 2020-10-16 Completed Unive rsity of PFIZER VACCINE 00:00:00 [facility] SARS-COV-2 COVID-19 2020-10-16 Completed Unive rsity of PFIZER VACCINE 00:00:00 [facility] SARS-COV-2 COVID-19 2020-10-16 Completed Unive rsity of PFIZER VACCINE 00:00:00 [facility] Influenza High Dose 2019-06-03 Completed Unive rsity of 00:00:00 [facility] Influenza High Dose 2019-06-03 Completed Unive rsity of 00:00:00 [facility] Influenza High Dose 2019-06-03 Completed Unive rsity of 00:00:00 [facility] Influenza High Dose 2019-06-03 Completed Unive rsity of 00:00:00 [facility] Influenza High Dose 2019-06-03 Completed Unive rsity of 00:00:00 [facility] Influenza High Dose 2019-06-03 Completed Unive rsity of 00:00:00 [facility] Influenza High Dose 2019-06-03 Completed Unive rsity of 00:00:00 [facility] Influenza High Dose 2019-06-03 Completed Unive rsity of 00:00:00 [facility] Influenza High Dose 2019-06-03 Completed Unive rsity of 00:00:00 [facility] Influenza High Dose 2019-06-03 Completed Unive rsity of 00:00:00 [facility] Influenza High Dose 2019-06-03 Completed Unive rsity of 00:00:00 [facility] Influenza High Dose 2019-06-03 Completed Unive rsity of 00:00:00 [facility] Influenza High Dose 2019-06-03 Completed Unive rsity of 00:00:00 [facility] Influenza High Dose 2019-06-03 Completed Unive rsity of 00:00:00 [facility] Influenza High Dose 2019-06-03 Completed Unive rsity of 00:00:00 [facility] Influenza High Dose 2019-06-03 Completed Unive rsity of 00:00:00 [facility] Influenza High Dose 2019-06-03 Completed Unive rsity of 00:00:00 [facility] Influenza High Dose 2019-06-03 Completed Unive rsity of 00:00:00 [facility] Influenza High Dose 2019-06-03 Completed Unive rsity of 00:00:00 [facility] Influenza High Dose 2019-06-03 Completed Unive rsity of 00:00:00 [facility] Influenza High Dose 2019-06-03 Completed Unive rsity of 00:00:00 [facility] Influenza High Dose 2019-06-03 Completed Unive rsity of 00:00:00 [facility] Influenza High Dose 2019-06-03 Completed Unive rsity of 00:00:00 [facility] Influenza High Dose 2019-06-03 Completed Unive rsity of 00:00:00 [facility] Influenza High Dose 2019-06-03 Completed Unive rsity of 00:00:00 [facility] Pneumococcal 13 2018-06-19 Completed Universit y of [...] Completed Universit y of Conjugate, PCV13 00:00:00 [facility] dical (Prevnar 13) Branch Influenza High Dose 2016-09-03 Completed Unive rsity of 00:00:00 [facility] Influenza High Dose 2016-09-03 Completed Unive rsity of 00:00:00 [facility] Influenza High Dose 2016-09-03 Completed Unive rsity of 00:00:00 [facility] Influenza High Dose 2016-09-03 Completed Unive rsity of 00:00:00 [facility] Influenza High Dose 2016-09-03 Completed Unive rsity of 00:00:00 [facility] Influenza High Dose 2016-09-03 Completed Unive rsity of 00:00:00 [facility] Influenza High Dose 2016-09-03 Completed Unive rsity of 00:00:00 [facility] Influenza High Dose 2016-09-03 Completed Unive rsity of 00:00:00 [facility] Influenza High Dose 2016-09-03 Completed Unive rsity of 00:00:00 [facility] Influenza High Dose 2016-09-03 Completed Unive rsity of 00:00:00 [facility] Influenza High Dose 2016-09-03 Completed Unive rsity of 00:00:00 [facility] Influenza High Dose 2016-09-03 Completed Unive rsity of 00:00:00 [facility] Influenza High Dose 2016-09-03 Completed Unive rsity of 00:00:00 [facility] Influenza High Dose 2016-09-03 Completed Unive rsity of 00:00:00 [facility] Influenza High Dose 2016-09-03 Completed Unive rsity of 00:00:00 [facility] Influenza High Dose 2016-09-03 Completed Unive rsity of 00:00:00 [facility] Influenza High Dose 2016-09-03 Completed [facility]:00 [facility] [facility] Influenza High Dose 2016-09-03 Completed [facility]ity of 00:00:00 [facility] Influenza High Dose 2016-09-03 Completed [facility]ity of 00:00:00 [facility] Influenza High Dose 2016-09-03 Completed Unive rsity of 00:00:00 [facility] Influenza High Dose 2016-09-03 Completed Unive rsity of 00:00:00 [facility] Influenza High Dose 2016-09-03 Completed Unive rsity of 00:00:00 [facility] Influenza High Dose 2016-09-03 Completed Unive rsity of 00:00:00 [facility] Influenza High Dose 2016-09-03 Completed Unive rsity of 00:00:00 [facility] Influenza High Dose 2016-09-03 Completed Unive rsity of 00:00:00 [facility] Influenza High Dose 2016-09-03 Completed Unive rsity of 00:00:00 [facility] Influenza High Dose 2016-09-03 Completed Unive rsity of 00:00:00 [facility] Influenza High Dose 2016-09-03 Completed Unive rsity of 00:00:00 [facility] Vital Signs Vital Name Observation Time Observation Value Comments Source Systolic blood 2021-10-25 14:57:00 168 mm[Hg] Univer sity of pressure [facility] Diastolic blood 2021-10-25 14:57:00 71 mm[Hg] Unive rsity of pressure [facility] Heart rate 2021-10-25 14:57:00 73 /min Universi ty [facility] Body temperature 2021-10-25 14:57:00 36.61 Keira Univ ersity of [facility] Respiratory rate 2021-10-25 14:57:00 19 /min Univ ersity of [facility] Body height 2021-10-25 14:57:00 160 cm [facility]i ty [facility] Body weight 2021-10-25 14:57:00 54.432 kg [facility] BMI 2021-10-25 14:57:00 21.26 kg/m2 [facility] ty [facility] Oxygen saturation in 2021-10-25 14:57:00 98 /min University of Arterial blood by [facility] Pulse oximetry Branch Systolic blood 2021-04-12 14:10:00 160 mm[Hg] Univer sity of pressure [facility] Diastolic blood 2021-04-12 14:10:00 80 mm[Hg] Unive rsity of pressure [facility] Heart rate 2021-04-12 14:10:00 74 /min Universi ty of [facility] Body temperature 2021-04-12 14:10:00 37.33 Keira Univ ers[facility] Respiratory rate 2021-04-12 14:10:00 16 /min Univ ersity of [facility] Body height 2021-04-12 14:10:00 157.5 cm [facility] [place] [facility] [place] Body weight 2021-04-12 14:10:00 54.432 kg [facility] [place] BMI 2021-04-12 14:10:00 21.95 kg/m2 [facility] Oxygen saturation in 2021-04-12 14:10:00 99 /min University of Arterial blood by [facility] Pulse oximetry Branch Systolic blood 2021-03-30 16:20:00 145 mm[Hg] Univer [facility]ity of [facility] Diastolic blood 2021-03-30 16:20:00 74 mm[Hg] [facility]ive rsity of [facility] Heart rate 2021-03-30 16:20:00 71 /min [facility] Body weight 2021-03-30 16:20:00 54.795 kg [facility] BMI 2021-03-30 16:20:00 21.40 kg/m2 [facility] Oxygen saturation in 2021-03-30 16:20:00 100 /min University of Arterial blood by [facility] Pulse oximetry Branch Systolic blood 2020-12-07 15:39:00 162 mm[Hg] Univer sity of [facility] Diastolic blood 2020-12-07 15:39:00 83 mm[Hg] Unive rsity of [facility] Heart rate 2020-12-07 15:39:00 97 /min [facility] Respiratory rate 2020-12-07 15:39:00 26 /min Univ ers[facility] Oxygen saturation in 2020-12-07 15:39:00 98 /min University of Arterial blood by [facility] Pulse oximetry Branch Body temperature 2020-12-07 15:04:00 36.33 Keira [facility] Body height 2020-11-30 18:07:00 160 cm [facility] Body weight 2020-11-30 18:07:00 56.7 kg [facility] BMI 2020-11-30 18:07:00 22.15 kg/m2 [facility] Systolic blood 2020-12-07 15:39:00 162 mm[Hg] Univer [facility]ity of [facility] Diastolic blood 2020-12-07 15:39:00 83 mm[Hg] Unive rsity of [facility] Heart rate 2020-12-07 15:39:00 97 /min [facility] Respiratory rate 2020-12-07 15:39:00 26 /min Univ ers[facility] Oxygen saturation in 2020-12-07 15:39:00 98 /min University of Arterial blood by [facility] Pulse oximetry Branch Body temperature 2020-12-07 15:04:00 36.33 Keira Univ ers[facility] Body height 2020-11-30 18:07:00 160 cm [facility] [place] [facility] [place] Body weight 2020-11-30 18:07:00 56.7 kg [facility] BMI 2020-11-30 18:07:00 22.15 kg/m2 [facility] Systolic blood 2020-03-31 16:34:00 140 mm[Hg] Univer sity of pressure [facility] Diastolic blood 2020-03-31 16:34:00 80 mm[Hg] Unive rsity of pressure [facility] Heart rate 2020-03-31 16:34:00 82 /min [facility]i ty [facility] Respiratory rate 2020-03-31 16:34:00 16 /min Univ ersity of [facility] Body height 2020-03-31 16:34:00 157.5 cm Universi ty of [facility] Body weight 2020-03-31 16:34:00 62.415 kg Universi ty of [facility] BMI 2020-03-31 16:34:00 25.17 kg/m2 Universi ty of [facility] Systolic blood 2020-03-31 16:34:00 140 mm[Hg] Univer sity of pressure [facility] Diastolic blood 2020-03-31 16:34:00 80 mm[Hg] Unive rsity of pressure [facility] Heart rate 2020-03-31 16:34:00 82 /min Universi ty of [facility] Respiratory rate 2020-03-31 16:34:00 16 /min Univ ersity of [facility] Body height 2020-03-31 16:34:00 157.5 cm [facility]i [facility] Body weight 2020-03-31 16:34:00 62.415 kg Universi ty of [facility] BMI 2020-03-31 16:34:00 25.17 kg/m2 [facility] Systolic blood 2019-10-15 17:38:00 135 mm[Hg] Univer sity of pressure [facility] Diastolic blood 2019-10-15 17:38:00 78 mm[Hg] [facility]ive [facility]ity of [facility] Heart rate 2019-10-15 17:38:00 74 /min [facility] Respiratory rate 2019-10-15 17:38:00 18 /min [facility] Body height 2019-10-15 17:38:00 160 cm [facility] Body weight 2019-10-15 17:38:00 65.772 kg Universi ty [facility] Branch BMI 2019-10-15 17:38:00 25.69 kg/m2 Universi ty [facility] Branch Systolic blood 2019-04-09 13:42:00 144 mm[Hg] Univer sity of [facility] Diastolic blood 2019-04-09 13:42:00 82 mm[Hg] Unive rsity of [facility] Heart rate 2019-04-09 13:42:00 70 /min [facility] Respiratory rate 2019-04-09 13:42:00 16 /min [facility] Body height 2019-04-09 13:42:00 160 cm [facility] Body weight 2019-04-09 13:42:00 63.957 kg Universi ty [facility] BMI 2019-04-09 13:42:00 24.98 kg/m2 [facility] Height 2020-08-23 14:57:00 160.02 cm [facility] Weight 2020-08-23 14:57:00 [facility] BMI Calculated 2020-08-23 14:57:00 [facility] Systolic (mm Hg) 2020-06-14 15:46:00 Arturo rial [facility] Diastolic (mm Hg) 2020-06-14 15:46:00 Mem [facility] [place] Heart Rate 2020-06-14 15:46:00 [facility] Height 2020-06-14 15:46:00 160.02 cm [facility] Weight 2020-06-14 15:46:00 [facility] BMI Calculated 2020-06-14 15:46:00 [facility] [place] Systolic (mm Hg) 2019-06-02 17:15:00 Arturo [facility] Diastolic (mm Hg) 2019-06-02 17:15:00 Mem [facility] Systolic (mm Hg) 2019-06-02 16:40:00 Arturo [facility] [place] Diastolic (mm Hg) 2019-06-02 16:40:00 Mem o[facility] Systolic (mm Hg) 2019-06-02 16:10:00 Arturo [facility] Diastolic (mm Hg) 2019-06-02 16:10:00 Mem orial [facility] Temperature Oral (F) 2019-06-02 11:36:00 98.4 F [facility] Height 2019-06-02 10:43:00 157.48 cm [facility] Weight 2019-06-02 10:43:00 [facility] BMI Calculated 2019-06-02 10:43:00 [facility] [place] Systolic (mm Hg) 2019-05-05 19:46:00 Arturo [facility] [place] Diastolic (mm Hg) 2019-05-05 19:46:00 Mem [facility] Heart Rate 2019-05-05 19:46:00 [facility] Respitory Rate 2019-05-05 19:46:00 [facility] [place] Height 2019-05-05 19:46:00 152.4 cm [facility] Weight 2019-05-05 19:46:00 [facility] BMI Calculated 2019-05-05 19:46:00 [facility] [place] Systolic (mm Hg) 2016-10-29 13:36:00 Arturo rial [facility] Diastolic (mm Hg) 2016-10-29 13:36:00 [facility] [place] Systolic (mm Hg) 2016-10-29 10:30:00 Arturo [facility] [place] Diastolic (mm Hg) 2016-10-29 10:30:00 Mem [facility] Systolic (mm Hg) 2016-10-29 08:30:00 Arturo [facility] [place] Diastolic (mm Hg) 2016-10-29 08:30:00 [facility] [place] Temperature Oral (F) 2016-10-29 05:00:00 96.6 F [facility] Temperature Oral (F) 2016-10-28 18:45:00 97.0 F [facility] Respitory Rate 2016-10-28 18:45:00 Memori [facility] BMI Calculated 2016-10-28 18:23:00 [facility] Weight 2016-10-28 18:23:00 [facility] Height 2016-10-28 18:23:00 160.02 cm [facility] Systolic (mm Hg) 2016-04-26 20:27:00 Arturo rial [facility] Diastolic (mm Hg) 2016-04-26 20:27:00 [facility] [place] Heart Rate 2016-04-26 20:27:00 [facility] Temperature Oral (F) 2016-04-26 20:27:00 98.4 F [facility] Respitory Rate 2016-04-26 20:27:00 [facility] Systolic (mm Hg) 2016-04-26 16:51:00 Arturo [facility] [place] Diastolic (mm Hg) 2016-04-26 16:51:00 [facility] [place] Respitory Rate 2016-04-26 16:51:00 Memori al [facility] Temperature Oral (F) 2016-04-26 16:51:00 98.4 F [facility] Heart Rate 2016-04-26 16:51:00 [facility] Diastolic (mm Hg) 2016-04-26 13:02:00 [facility] [place] Systolic (mm Hg) 2016-04-26 13:02:00 Arturo [facility] [place] Heart Rate 2016-04-26 13:02:00 [facility] Respitory Rate 2016-04-26 13:00:00 Memori [facility] Temperature Oral (F) 2016-04-26 13:00:00 98.1 F [facility] BMI Calculated 2016-04-22 01:09:00 [facility] [place] Weight 2016-04-22 01:09:00 [facility] Height 2016-04-22 01:09:00 160.02 cm [facility] Procedures Procedure Date / Time Performing Source Performed Clinician ASSIGNMENT OF BENEFITS 2021-10-25 Doctor Unassigned, [facility] 14:47:18 [facility] [id number] 2021-09-18 [facility]ER [facility] 00:[facility] [id number] 2021-09-18 HAAER [facility] 00:00:00 [facility] [id number] 2021-09-18 HAAER [facility] 00:00:00 [facility] [id number] 2021-09-18 HAAER [facility] 00:00:00 [facility] [id number] 2021-09-18 HAAER [facility] 00:00:00 [facility] AUTHORIZATION FOR RELEASE OF 2021-01-02 Doctor Unassigned, [facility] [place] [facility]I 05:01:00 [facility] AUTHORIZATION FOR RELEASE OF 2020-12-08 Doctor Unarosario, [facility] PHI 05:01:00 [facility] RECTAL MASS EXCISION 2020-12-07 Dereje [facility] 13:43:00 Medical Branch PROCTOSIGMOIDOSCOPY 2020-12-07 Dereje [facility] 13:43:00 [facility] EXAM UNDER ANESTHESIA 2020-12-07 Dereje [facility] 13:43:00 Medical Branch DAY SURGERY - ADC 2020-12-07 Doctor Unassigned, [facility] 05:01:00 [facility] XR CHEST 2 VW [facility] 14[facility] DSU PRE-OP 2020-12-06 Doctor Unassigned, [facility] 05:01:00 [facility] DSU PRE-OP 2020-11-29 Doctor Unassigned, [facility] 05:01:00 [facility] DSU PRE-OP 2020-11-29 Doctor Yaelssigned, [facility] 05:01:00 [facility] DSU PRE-OP 2020-11-27 Doctor Unassigned, [facility] 05:01:00 [facility] DSU PRE-OP 2020-11-27 Doctor Unassigned, [facility] 05:01:00 [facility] XR CHEST 2 VW [facility] [place] 15[facility] DEXA PERIPHERAL (FOREARM) 2020-04-[address] [facility] 15:15:04 Medical Branch DEXA AXIAL (HIP AND SPINE) 2020-04-11 Yusuf Gibbons [facility] 15:13:34 Medical Branch ASSIGNMENT OF BENEFITS 2020-04-11 Doctor Chle, [facility] 14:16:11 [facility] DEXA AXIAL (HIP AND SPINE) 2019-04-14 Yusuf Gibbons [facility] 16:36:12 Medical Branch CONSENT/REFUSAL FOR DIAGNOSIS 2019-04-14 Doctor Chel, [facility] AND TREATMENT 16:01:26 [facility] ASSIGNMENT OF BENEFITS 2019-04-14 Doctor Chel, [facility] 16:00:59 [facility] ASSIGNMENT OF BENEFITS 2019-04-09 Doctor Unassigned, [facility] 13:24:09 [facility] [place] 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 koch Conrad prosthesis<sup>1</sup> Placement of stent in cardiac Me morial Conrad conduit Encounters Start End Encounter Admission Attending Care Care Encounter Source Date/Time Date/Time Type Type Clinicians Facility Department ID 2021-06-24 Outpatient Jeovany REYEZ [facility] [id number] Univers 10:58:25 [facility] 2021-06-23 Outpatient Jeovany REYEZ [facility] [id number] Univers 23:07:21 RIKI [facility] 2022-04-05 2022-04-05 Outpatient R CHARLEEN [facility] [id number] Univers 11:30:00 11:30:00 YUSUF [id number] [facility] 2022-02-27 2022-02-27 Outpatient R CHARLEEN [facility] [id number] Univers 00:00:00 00:00:00 YUSUF [id number] [facility] 2021-10-25 2021-10-25 Nurse 1, Adc Infusion Nurse [facility] 1.2. 840.114 [id number] Univers 09:00:00 09:15:00 Visit Yusuf Gibbons [id number] ity [facility] [phone] 161063 [place] 2021-10-25 2021-10-25 Outpatient R [facility] [id number] Univers 09:00:00 09:00:00 [id number] ity [facility] 2021-10-25 2021-10-25 Outpatient R CHARLEEN [facility] [id number] Univers 09:00:00 09:00:00 YUSUF [facility] 2021-10-25 2021-10-25 Orders Doctor GILMORE 1.2.840.114 [id number] Univers 00:00:00 00:00:00 Only Unassigned, VELVET [id number] ity of [place] [facility] [id number] Laurent as [id number] [address] 2021-10-19 2021-10-19 Outpatient R [facility] [id number] Univers 12:00:00 12:00:00 [id number] [facility] 2021-10-11 2021-10-11 Outpatient R [facility] [id number] Univers 09:30:00 09:30:00 [id number] [facility] 2021-10-11 2021-10-11 Outpatient R CHARLEEN [facility] [id number] Univers 09:30:00 09:30:00 YUSUF [facility] 2021-09-18 2021-09-21 Inpatient Iván Root [facility] [id number] [facility] 00:40:00 18:15:00 [id number] [facility] are [facility] 2021-09-18 2021-09-21 Inpatient Iván Root [place] [address] [id number] [facility] 00:40:00 18:15:00 20 [facility] are [facility] 2021-09-18 2021-09-18 [id number] [facility] 18:46:00 18:46:00 [id number] [facility] are [facility] 2021-09-14 2021-09-14 Outpatient Iván Root [facility] 3DAY [id number] 00:00:00 23:59:00 [id number] [facility] are [facility] 2021-09-14 2021-09-14 Outpatient UNKNOWN HCACL LABO [id number] [facility] 17:46:00 17:46:00 [id number] [facility] 2021-08-16 2021-08-16 [facility] [id number] [place] 00:00:00 00:00:00 MY, Baron Method i [facility] 2021-04-13 2021-04-13 Outpatient Jeovany CASTREJON [facility] [id number] Univers 09:30:00 09:30:00 MEAGHAN [id number] [facility] 2021-04-12 2021-04-12 Outpatient R [facility] [id number] Univers 09:30:00 09:30:00 [id number] ity [facility] 2021-04-12 2021-04-12 Outpatient R CHARLEEN [facility] [id number] Univers 09:30:00 09:30:00 YUSUF [facility] 2021-04-12 2021-04-12 Nurse 1, Adc Infusion Nurse [facility] 1.2. 840.114 [id number] Univers 09:09:47 09:24:47 Visit Yusuf Gibbons [id number] [id number] [phone] [place] 854453 [place] 2021-04-06 2021-04-06 Outpatient R CHARLEEN [facility] [id number] Univers 10:00:00 10:00:00 YUSUF [id number] ity [facility] 2021-04-06 2021-04-06 Outpatient R CHARLEEN [facility] [id number] Univers 10:00:00 10:00:00 YUSUF irene [facility] 2021-03-30 2021-03-30 Office Yusuf Gibbons [facility] 1.2.840. 114 [id number] Univers 11:03:18 12:12:59 Visit Meaghan Castrejon [id number] [id number] [phone] Ne dical nal 220 [facility] 2021-03-30 2021-03-30 [facility] [id number] Univers 11:00:00 11:00:00 MEAGHAN [id number] ity [facility] 2021-03-30 2021-03-30 Outpatient R HALIMA [facility] [id number] Univers 11:00:00 11:00:00 MEAGHAN [facility] 2021-01-02 2021-01-02 Orders Doctor GILMORE 1.2.840.114 [id number] Univers 00:00:00 00:00:00 Only Unassigned, VELVET [id number] [facility] [id number] Laurent as [id number] [facility] 009 [place] 2020-12-19 2020-12-19 [email or web address] 1.2.840.114 [id number] Univers 00:00:00 00:00:00 Yusuf Reeder [id number] [id number] [phone] Ne dical nal [address] [facility] 2020-12-08 2020-12-08 Orders Doctor DEIRDRE 1.2.840.114 [id number] Univers 00:00:00 00:00:00 Only Unassigned, VELVET [id number] [facility]y [facility] [id number] Laurent as [id number] [facility] 009 [place] 2020-12-07 2020-12-07 Surgery [facility] 1.2.052.950 [id number] Univers 09:00:00 11:18:00 Riki Reeder [id number] [id number] [id number] [facility] 020 Branch 2020-12-07 2020-12-07 [facility] 1.2.840.114 [id number] Univers 07:58:00 10:51:00 Encounter Riki Reeder [id number] [id number] [id number] [facility] 071 [place] 2020-12-07 2020-12-07 Orders Doctor DEIRDRE 1.2.840.114 [id number] Univers 00:00:00 00:00:00 Only Unassigned, VELVET [id number] [facility] [id number] Laurent as [id number] [facility] 009 [place] 2020-12-06 2020-12-06 Laboratory Only, Adc Test [facility] 1.2.840. 114 [id number] Univers 08:50:27 09:05:27 Only Riki Reyez [id number] [id number] [id number] [facility] 353 Branch 2020-12-06 2020-12-06 Security Patrol Driver Alfredo, Adc Lab Main [facility] 1.2.8 40.114 [id number] Univers 08:49:30 09:04:30 Visit Riki Reyez Lilli [id number] [id number] [id number] Ne dical [facility] [address] [facility] 2020-12-06 2020-12-06 Hospital Dereje [facility] 1.2.840.114 [id number] Univers 08:45:00 08:46:00 Encounter Riki Reeder [id number] ity [facility] [id number] [id number] [facility] 807 Branch 2020-12-06 2020-12-06 Outpatient R [facility] [id number] Univers 08:15:00 08:15:00 [id number] [facility] 2020-12-06 2020-12-06 Outpatient R DEREJE [facility] [id number] Univers 08:15:00 08:15:00 RIKI [facility] 2020-12-06 2020-12-06 Orders Doctor DEIRDRE 1.2.840.114 [id number] Univers 00:00:00 00:00:00 Only Unassigned, VELVET [id number] ity of [place] [facility] [id number] Laurent as [id number] [facility] 009 Branch 2020-11-06 2020-11-06 Outpatient R RIVER [facility] [id number] Univers 15:30:00 15:30:00 AIYANA [id number] [facility] 2020-11-06 2020-11-06 Outpatient R RIVER [facility] [id number] Univers 15:30:00 15:30:00 AIYANA [facility] 2020-10-16 2020-10-16 Outpatient R RIVER [facility] [id number] Univers 16:10:00 16:10:00 AIYANA [id number] [facility] 2020-10-16 2020-10-16 [facility] [id number] Univers 16:10:00 16:10:00 AIYANA [facility] 2020-10-06 2020-10-06 [email or web address] 1.2.840.114 [id number] Univers 08:54:38 23:59:00 Encounter [id number] [facility] [id number] [facility] [id number] [facility] 807 [place] 2020-10-06 2020-10-06 Outpatient R [facility] [id number] Univers 08:45:00 08:45:00 [facility] 2020-10-06 2020-10-06 Laboratory Only, Adc Test [facility] 1.2.840. 114 [id number] Univers 08:28:29 08:43:29 Only Riki [facility]z [id number] [facility] [id number] [facility] [id number] [facility] 353 [place] 2020-10-06 2020-10-06 Outpatient R [facility] [id number] Univers 08:30:00 08:30:00 [id number] [facility] 2020-09-17 2020-09-17 [email or web address] 1.2.840.114 [id number] Univers 00:00:00 00:00:00 Outreach [facility] [id number] i ty [facility] [id number] [facility] [id number] Ne dical [address] [place] [address] 2020-08-30 2020-08-30 Ambulatory nullFlavo [facility] Multi 35 [id number] Memoria 15:00:00 15:00:00 Pre-Reg r Specialty 04 l [facility] 2020-08-23 2020-08-24 Outpatient nullFlavo [facility] Multi 35 [id number] Memoria 15:00:00 05:59:59 r Specialty 05 l Clinic [facility] 2020-06-14 2020-06-15 Outpatient nullFlavo [facility] 35 [id number] Memoria 16:00:00 04:59:59 r Specialty 03 l Clinic [facility] 2020-04-11 2020-04-11 [facility] 1.2.840 .114 [id number] 09:20:00 23:59:00 Encounter Radiology [employer] [id number] [place] 4.2.7.2.686 [place] [id number] 800 2020-04-11 2020-04-11 [facility] 1.2.840 .114 [id number] [facility] 09:20:00 23:59:00 Encounter Radiology [employer] [id number] ity of [place] 4.2.7.2.686 [facility] [id number] [address] 2020-04-11 2020-04-11 [facility] 1.2.840.114 [id number] 09:00:00 09:19:00 Encounter Yusuf Sanzton [id number] [place] 4.2.7.2.686 [place] [id number] 800 2020-04-11 2020-04-11 [facility] 1.2.840.114 [id number] [facility] 09:00:00 09:19:00 Encounter Yusuf Sanzton [id number] ity of [place] 4.2.7.2.686 [facility] [id number] [address] 2020-04-11 2020-04-[address] [facility] [id number] Univers 09:00:00 09:00:00 YUSUF [id number] itirene [facility] 2020-04-11 2020-04-[address] [facility] [id number] Univers 00:00:00 00:00:00 YUSUF vines [facility] 2020-04-11 2020-04-11 Orders Doctor GILMORE 1.2.840.114 [id number] 00:00:00 00:00:00 Only Unassigned, VELVET [id number] [place] [facility] 4.2.7.2.686 [id number] 2020-04-11 2020-04-11 Orders Doctor GILMORE [id number] [id number] Univers 00:00:00 00:00:00 Only Unassigned, VELVET 350.1.13.10 [facility] 4.2.7.2.686 Laurent as [phone] [address] 2020-03-31 2020-03-31 [email or web address] 1.2.024.681 [id number] 11:28:01 12:47:12 Visit Yusuf Christy Lilli 350.1.13.10 [place] 4.2.7.2.686 Professio [phone] [address] 2020-03-31 2020-03-31 Office [facility] [id number] Univers 11:28:01 12:47:12 Visit Yusuf Reeder 350.1.13.10 [place] [phone] [address] 2020-03-31 2020-03-31 [facility] [id number] Univers 11:30:00 11:30:00 YUSUF [id number] [facility] 2020-03-31 2020-03-31 Out[facility] [id number] Univers 11:30:00 11:30:00 YUSUF [facility] 2019-10-15 2019-10-15 Office [facility] 1.2.028.180 [id number] Univers 11:31:15 12:29:05 Visit Yusuf Reeder 350.1.13.10 [place] [phone] [address] 2019-10-15 2019-10-15 Outpatient R [facility] [id number] Univers 11:30:00 12:29:05 YUSUF irene [facility] 2019-06-02 2019-06-02 Bedded [facility] [id number] [facility] 10:[facility] 18:05:00 Outpatient r [address] 2019-06-02 2019-06-02 Outpatient [facility] CAR 7504 [facility] 05:35:00 05:35:00 2019-05-19 2019-05-[address] [facility] [id number] Memoria 18:18:00 04:59:00 Services r Outpatient 05 l Imaging - Galen Carlson 2019-05-05 2019-05-06 Outpatient nullFlavo [facility] 011 [id number] Memoria 19:40:00 04:59:00 r Disease 03 l [facility] 2019-05-05 2019-05-05 Outpatient [facility] 7503 [facility] 14:40:00 14:40:00 2019-04-14 2019-04-14 Hospital [facility] [id number] Univers 11:00:22 23:59:00 Encounter Yusuf Reeder 350.1.13.10 [place] [phone] [facility] [address] 2019-04-09 2019-04-09 Office [facility] [id number] Univers 08:26:57 10:14:43 Visit Yusuf Reeder 350.1.13.10 [place] [phone] Ne dical nal [address] 2019-04-09 2019-04-09 Orders Doctor DEIRDRE 1.2.840.114 [id number] Univers 00:00:00 00:00:00 Only Unassigned, VELVET 350.1.13.10 [place] [facility] 4.2.7.2.686 Laurent as [phone] [facility] [address] 2016-10-28 2016-10-29 Bedded [facility] [id number] Memoria 18:02:00 15:07:00 Outpatient r Conrad [address] [facility] 2016-04-22 2016-04-27 [facility] [id number] Memoria 00:43:00 01:07:[address] [facility] 2015-03-02 2015-03-[address] [facility] [id number] Memoria 17:37:00 04:59:00 Services r Outpatient 00 l [facility] 2015-03-02 2015-03-02 Outpatient [facility] [id number] Memoria 13:30:00 13:30:00 00 charles Martines 2014-03-03 2014-03-[address] [facility] [id number] Memoria 16:41:00 04:59:00 Services r Outpatient 03 l Imaging Conrad Martines Results Test Description Test Time Test Comments Results Result Comments Source SURGICAL 2021-09-21 11:13:00 Test Item Value Reference Range Interpretation Comme nts SURGICAL RUN DATE: (test 09/21/21 [facility] - LAB PAGE 1 RUN TIME: 1113 code = Specimen Inquiry RUN USER: INTERFACE SR) PATIENT: JASON GOYAL LOC: P.5N POD B U #: [id number] AGE/SX: 86/ F ROOM: [facility] RE09/18/21[facility] DR: Iván Cowan MD : 35 BED: 1 DIS: STATUS: ADM IN TLOC: SPEC #: [id number] RECD: -[id number] STATUS: ROLAND PATEL #: [id number] BALDO: 09/18/21-[address]: Iván Cowan MD ENTERED: 09/18/21 SP TYPE: SURGICAL OTHR DR: Sam Nur MD ORDERED: [id number], 32604/2, ANATOMIC SPEC HISTOLOGY: TISSUE ID [id number] PCS [...] is opened to reveal green-yellow fecal material. [employer] sections are submitted in cassettes A1 and A2 as follows: A1 - margin; A2 -marketing sales representative sections of dilated bowel- full [...] INUED ON NEXT PAGE RUN DATE: 09/21/21 [facility] - LAB PAGE 2 RUN TIME: 1113 Specimen Inquiry RUN USER: INTERFACE SPEC #: [id number] PATIENT: JASON GOYAL #[id number] (Continued) GROSS DESCRIPTION (Continued) average circumference ranging [...] Two unremarkabl e colorectal donuts arealso received. [employer] sections are submitted as follows: B1 - proximal ma rgin; B2-distal margin; B3 - marketing sales representative section of mesenteric margin and radial margin; B4 to B6- pro ximal serosal scar with diverticula; B7 - marketing sales representative sections at middle area ofserosal fibrosis; B8 - marketing sales representative sections at distal mural disruption; [...] cassette C. ASHLEY/ks Technical component performed at [facility] [facility], [facility], [address] MICROSCOPIC DESCRIPTION NEGATIVE FOR MAL IGNANCY. PERFORMED AND INCORPORATED INTO THE FINAL DIAGNOSIS. CLINICAL INFORMATION Diverticular stricture (per op note) Signed SIGNATURE ON FILE Steve Shell 09/21/21 1113 END OF REPORT BASIC METABOLIC [id number] 08:32:00 Test Item Value Reference Range Interpretation [...] New = CA) Reference Range Sep 2020 [id number] 08:32:00 Test Item Value Reference Range Interpretation Comments MAGNESIUM (test code = 1.3 mg/dL 1.6-2.6 L Pleas e note: New MAG) Reference Range Sep 2020 CBC W/AUTO [id number] 08:16:00 Test Item Value Reference Range Interpretation [...] 0.02 x10 3/uL 0.0-0.20 N RECOLLECTCBC W/MANUAL [id number] 05:55:00 Test Item Value Reference Range Interpretation [...] code NORMAL NORMAL = PLTMORPH) BASIC METABOLIC [id number] 05:04:00 Test Item Value Reference Range Interpretation [...] New = CA) Reference Range Sep 2020 [id number] 05:04:00 Test Item Value Reference Range Interpretation Comments MAGNESIUM (test code = 2.0 mg/dL 1.6-2.6 N Pleas e note: New MAG) Reference Range Sep 2020 CBC W/AUTO [id number] 04:41:00 Test Item Value Reference Range Interpretation [...] 0.01 x10 3/uL 0.0-0.20 N BASIC METABOLIC [id number] 04:31:00 Test Item Value Reference Range Interpretation [...] New = CA) Reference Range Sep 2020 [id number] 04:31:00 Test Item Value Reference Range Interpretation Comments MAGNESIUM (test code = 1.5 mg/dL 1.6-2.6 L Pleas e note: New MAG) Reference Range Sep 2020 Novel Coronavirus 2018 [id number] 14:55:00 Test Item Value Reference Range Interpretation [...] det ection of nucleic acids f rom efjVSXN-YwN-7 v irus and diagnosis of SA RS-CoV-2 virusinfection. It is an Emergency Use Authorization ( EUA) testauthorized by the U.S. FDA. First test? UnknownEmployed in Healthcare? UnknownSymptomatic as defined by CDC? UnknownHospitalizeddue to COVID? UnknownIn ICU due to COVID? UnknownResident in a congregate care setting? Unknown? NoAge at collection: Danielleel Coronavirus 2018 [id number] 14:55:00 Test Item Value Reference Range Interpretation [...] det ection of nucleic acids f rom ftnMGQT-FsH-7 v irus and diagnosis of SA RS-CoV-2 virusinfection. It is an Emergency Use Authorization ( EUA) testauthorized by the U.S. FDA. First test? UnknownEmployed in Healthcare? UnknownSymptomatic as defined by CDC? UnknownHospitalizeddue to COVID? UnknownIn ICU due to COVID? UnknownResident in a congregate care setting? Unknown? NoAge at collection: YBASIC METABOLIC [id number] 11:15:00 Test Item Value Reference Range Interpretation [...] CA) Reference Range Sep 2020 CBC W/AUTO [id number] 10:57:00 Test Item Value Reference Range Interpretation [...] x10 3/uL 0.0-0.20 N XR CHEST 2 [id number] 14:14:50HISTORY: Preop. TECHNIQUE: PA and lateral views [...] lesions. CONCLUSIONS: No signs of acute cardiopulmonary disease.[facility] Results Inft User - [...] pleural effusion orpulmonary congestion. Cardiothoracic ratio of gcfdjfuzfstos27.5/22.1 cm isconsistent with normal cardiac size. Mild thoracic kyphosis is noted withminimal remote fracture deformity suspected in T4 and T5 vertebral bodies.No aggressive bone lesions.CONCLUSIONS:No signs of acute cardiopulmonary disease. [facility] 2 [id number] 15:35:52EXAM: XR CHEST 2 VW HISTORY: Hemorrhage of rectum and anus Disease of rectum COMPARISON: None. FINDINGS: The heart and great vessels are normal except for calcium in the arch ofthe aorta. Small pleural effusions blunt the costophrenic angles but thelungs are otherwise satisfactorily expanded and clear except for minorbasilar subsegmental atelectasis on the left. A hiatal hernia lies behindthe heart. ? [facility] - 10/06/2020 9:37 AM [...] left. A hiatal hernia lies behindthe heart. [facility] [id number] 15:25:00 Test Item Value Reference Range Interpretation Comments Result 2 (Urine Culture) See Result Comment (test code = Result 2 (Urine Culture)) [facility] (FOREARM)2020-04-11 15:19:04HISTORY: Osteoporosis. TECHNIQUE: Bone density estimation [...] d of the left radius and ulna. [facility] Inft User - 04/11/2020 10:20 [...] in distal third of the leftradius and ulna.[facility] CenterDEX[facility] SP[facility])2020-04-11 15:17:51HISTORY: History of [...] for each 1.5 SD below the mean. [facility] Inft User - 04/11/2020 10:19 [...] doubles for each 1.5 SD below the mean.[facility] 2019-06-02 14:36:00 Test Item Value Reference Range Interpretation Comments POC Activated Clotting Time (test code 186 s = POC Activated Clotting Time) [facility] BANK [id number] 10:47:00 Test Item Value Reference Range Interpretation Comments ABO/Rh (test code = ABO/Rh) O POS [facility] [id number] 10:47:00 Test Item Value Reference Range Interpretation Comments Antibody Scrn (test Positive (06/02/19 5:47 code = Antibody Scrn) AM) [facility] [id number] 10:47:00 Test Item Value Reference Range Interpretation Comments AB Int (test code = Non-specific IgG AB Int) Antibody [facility] [id number] 10:47:00 Test Item Value Reference Range Interpretation Comments PAUL Gel Int (test Positive (06/02/19 5:47 code = PAUL Gel Int) AM) [facility] [id number] 10:47:00 Test Item Value Reference Range Interpretation Comments C3 Int (test code = Negative (06/02/19 5:47 C3 Int) AM) [facility] [id number] 10:47:00 Test Item Value Reference Range Interpretation Comments Eluate Int (test code = Eluate Int) See Note [facility] [id number] 10:47:00 Test Item Value Reference Range Interpretation Comments Glucose Lvl (test code = Glucose Lvl) 102 70-99 [facility] [id number] 10:47:00 Test Item Value Reference Range Interpretation Comments BUN (test code = BUN) 20 7-22 [facility] [id number] 10:47:00 Test Item Value Reference Range Interpretation Comments Creatinine Lvl (test code = Creatinine 1.00 0.50-1.40 Lvl) [facility] [id number] 10:47:00 Test Item Value Reference Range Interpretation Comments Sodium Lvl (test code = Sodium Lvl) 143 135-145 [facility] [id number] 10:47:00 Test Item Value Reference Range Interpretation Comments Potassium Lvl (test code = Potassium 3.7 3.5-5.1 Lvl) [facility] [id number] 10:47:00 Test Item Value Reference Range Interpretation Comments Chloride Lvl (test code = Chloride Lvl) 105 95-109 [facility] [id number] 10:47:00 Test Item Value Reference Range Interpretation Comments CO2 (test code = CO2) 31 24-32 [facility]2019-10-09 10:47:00 Test Item Value Reference Range Interpretation Comments Calcium Lvl (test code = Calcium Lvl) 10.0 8.5-10.5 [facility]2019-10-09 10:47:00 Test Item Value Reference Range Interpretation Comments eGFR (test code = eGFR) 52 [facility]2019-10-09 10:47:00 Test Item Value Reference Range Interpretation Comments AGAP (test code = AGAP) 10.7 10.0-20.0 [facility]2019-10-09 10:47:00 Test Item Value Reference Range Interpretation Comments Magnesium Lvl (test code = Magnesium 2.1 1.8-2.4 Lvl) [facility]2019-10-09 10:47:00 Test Item Value Reference Range Interpretation Comments Phosphorus (test code = Phosphorus) 3.4 2.5-4.5 [facility] [id number] 10:47:00 Test Item Value Reference Range Interpretation Comments WBC (test code = WBC) 6.2 3.7-10.4 [facility] C[id number] 10:47:00 Test Item Value Reference Range Interpretation Comments RBC (test code = RBC) 4.17 4.20-5.40 [facility] CenterVccuztcLQDAUYFFZC1427-97-23 10:47:00 Test Item Value Reference Range Interpretation Comments Hgb (test code = Hgb) 12.5 12.0-16.0 [facility] C[id number] 10:47:00 Test Item Value Reference Range Interpretation Comments Hct (test code = Hct) 37.7 36.0-48.0 [facility] [id number] 10:47:00 Test Item Value Reference Range Interpretation Comments MCV (test code = MCV) 90.4 80.0-98.0 [facility] CenterGphzupfRNTQNLXVTJ4386-06-43 10:47:00 Test Item Value Reference Range Interpretation Comments MCH (test code = MCH) 30.0 pg 27.0-31.0 [facility] CenterAeihhdpMHHNZKZJUK7074-98-48 10:47:00 Test Item Value Reference Range Interpretation Comments MCHC (test code = MCHC) 33.2 32.0-36.0 [facility] CenterChhobrkTZTXAFPGRL2762-89-47 10:47:00 Test Item Value Reference Range Interpretation Comments RDW (test code = RDW) 13.5 11.5-14.5 [facility] CenterUlkrtjiFRROWZOLCH7965-56-35 10:47:00 Test Item Value Reference Range Interpretation Comments Platelet (test code = Platelet) 288 133-450 [facility] CenterHlfrefwKBQGWYGWZI0473-49-21 10:47:00 Test Item Value Reference Range Interpretation Comments MPV (test code = MPV) 7.1 7.4-10.4 [facility] CenterOieufyfZBDFUAGKST2272-32-78 10:47:00 Test Item Value Reference Range Interpretation Comments PT (test code = PT) 13.0 s 12.0-14.7 [facility] CenterFipeivsXXKYZAFNQL4419-83-14 10:47:00 Test Item Value Reference Range Interpretation Comments PTT (test code = PTT) 29.2 s 22.9-35.8 [facility] CenterEhfwzbzXDNDPAAPCN5178-48-63 10:47:00 Test Item Value Reference Range Interpretation Comments INR (test code = INR) 1.00 1 0.85-1.17 [facility] CenterMtjoxfoZDBAIVNGGV7381-44-47 10:47:00 Test Item Value Reference Range Interpretation Comments Segs (test code = Segs) 60.5 45.0-75.0 [facility] CenterWronwvdJXTVOEZILR2871-27-14 10:47:00 Test Item Value Reference Range Interpretation Comments Lymphocytes (test code = Lymphocytes) 26.2 20.0-40.0 [facility] CenterDcsphjsONJHYPGEPF3354-10-47 10:47:00 Test Item Value Reference Range Interpretation Comments Monocytes (test code = Monocytes) 8.7 2.0-12.0 [facility] CenterXfmmqiyGBWGIPAWWI8816-42-25 10:47:00 Test Item Value Reference Range Interpretation Comments Eosinophils (test code = 4.0 See_Comment [A utomated message] The Eosinophils) system which ge nerated this result tra nsmitted reference range : <=4.0. The reference r robbie was not used to int erpret this result as normal/abnormal . [facility] CenterUudxjarRCJZKWIGBP1900-51-33 10:47:00 Test Item Value Reference Range Interpretation Comments Basophils (test code = 0.6 See_Comment [Aut omated message] The Basophils) system which ge nerated this result tra nsmitted reference range : <=1.0. The reference r robbie was not used to int erpret this result as normal/abnormal . [facility] CenterOosdwwvXETRSLXGHL0014-60-24 10:47:00 Test Item Value Reference Range Interpretation Comments Neutrophils # (test code = Neutrophils 3.7 1.5-8.1 #) [facility] CenterUssgohiWIFRGWAHPK9400-03-15 10:47:00 Test Item Value Reference Range Interpretation Comments Lymphocytes # (test code = Lymphocytes 1.6 1.0-5.5 #) [facility] CenterZpjgfhgPQNQMMTWCK0808-11-61 10:47:00 Test Item Value Reference Range Interpretation Comments Monocytes # (test code 0.5 See_Comment [Aut omated message] The = Monocytes #) system which generated this result tra nsmitted reference range : <=0.8. The reference r robbie was not used to int erpret this result as normal/abnormal . [facility] CenterKgagbvxIWDFXHBPAT9086-63-73 10:47:00 Test Item Value Reference Range Interpretation Comments Eosinophils # (test code 0.3 See_Comment [A utomated message] The = Eosinophils #) system whic h generated this result tra nsmitted reference range : <=0.5. The reference r robbie was not used to int erpret this result as normal/abnormal . [facility] AXIAL (HIP AND SPINE)2019-04-14 16:40:40HISTORY: Osteoporosis screening [...] doubles for each 1.5 SD below the mean.[facility] CenterCHEM PANEL 2016-10-29 11:37:00 Test Item Value Reference Range Interpretation Comments eGFR (test code = eGFR) 48 [facility] [id number] 11:37:00 Test Item Value Reference Range Interpretation Comments Creatinine Lvl (test code = Creatinine 1.08 0.50-1.40 Lvl) [facility] CenterNtkobxnVTYKQZOICD6751-54-60 11:37:00 Test Item Value Reference Range Interpretation Comments Hgb (test code = Hgb) 12.6 12.0-16.0 [facility] CenterPmchrlbFWDCVRNYAN9507-58-55 00:09:00 Test Item Value Reference Range Interpretation Comments POC Activated Clotting Time (test code 198 s = POC Activated Clotting Time) [facility] CenterTchydsfLOUUSVPLJX9847-87-15 22:02:00 Test Item Value Reference Range Interpretation Comments POC Activated Clotting Time (test code 268 s = POC Activated Clotting Time) [facility]way[facility] [id number] 18:25:00 Test Item Value Reference Range Interpretation Comments ABO/Rh (test code = ABO/Rh) O POS [facility] [id number] 18:25:00 Test Item Value Reference Range Interpretation Comments Antibody Scrn (test Negative (10/28/16 12:25 code = Antibody Scrn) PM) [facility] [id number] 18:25:00 Test Item Value Reference Range Interpretation Comments Magnesium Lvl (test code = Magnesium 1.9 1.8-2.4 Lvl) [facility] HospitalWokobwsQSNMQPAXYSQN1788-24-61 18:25:00 Test Item Value Reference Range Interpretation Comments Potassium Lvl (test code = Potassium 4.4 3.5-5.1 Lvl) [facility] SurgeryVqedzavFVIPYSICHFMU3694-05-22 18:25:00 Test Item Value Reference Range Interpretation Comments Calcium Lvl (test code = Calcium Lvl) 9.4 8.5-10.5 [facility] SurgeryAnspdazLBQKRHDXPZPB7497-31-48 18:25:00 Test Item Value Reference Range Interpretation Comments CO2 (test code = CO2) 31 24-32 [facility] SurgeryNwrcnloPTXGLEKQCCLX8130-49-87 18:25:00 Test Item Value Reference Range Interpretation Comments Chloride Lvl (test code = Chloride Lvl) 103 95-109 [facility] SurgeryPbcsxeeGUPNXPTZIITS7887-67-45 18:25:00 Test Item Value Reference Range Interpretation Comments eGFR (test code = eGFR) 55 [facility] SurgeryDdtrnduVQKRYJZWVRCW1371-98-81 18:25:00 Test Item Value Reference Range Interpretation Comments Sodium Lvl (test code = Sodium Lvl) 141 135-145 [facility] SurgeryVfudllzWWISRMVUFTCC7077-71-63 18:25:00 Test Item Value Reference Range Interpretation Comments Creatinine Lvl (test code = Creatinine 0.97 0.50-1.40 Lvl) [facility] SurgeryLnspysyREJEDLWOUAPK3523-60-86 18:25:00 Test Item Value Reference Range Interpretation Comments BUN (test code = BUN) 24 7-22 [facility] SurgeryNvccemtBVJIKHGRTROA6028-25-35 18:25:00 Test Item Value Reference Range Interpretation Comments Glucose Lvl (test code = Glucose Lvl) 108 70-99 [facility] SurgeryEvhebnwBRVTUWQXZHWL7379-04-34 18:25:00 Test Item Value Reference Range Interpretation Comments AGAP (test code = AGAP) 11.4 10.0-20.0 [facility] CenterHwpgzidBZSQJKEKTG5781-78-17 18:25:00 Test Item Value Reference Range Interpretation Comments INR (test code = INR) 1.10 0.85-1.17 [facility] CenterZtwkfegJJGFYGOBAV3371-96-08 18:25:00 Test Item Value Reference Range Interpretation Comments PT (test code = PT) 14.4 s 12.0-14.7 [facility] CenterNnifdtwLEDXQADTGD3716-33-29 18:25:00 Test Item Value Reference Range Interpretation Comments PTT (test code = PTT) 30.3 s 22.9-35.8 [facility] CenterMspqckdVSQWTEGSSE2133-28-72 18:25:00 Test Item Value Reference Range Interpretation Comments Hgb (test code = Hgb) 13.1 12.0-16.0 [facility] CenterNlbhwrsLYEJAMLMIZ3056-70-53 18:25:00 Test Item Value Reference Range Interpretation Comments RBC (test code = RBC) 4.51 4.20-5.40 [facility] CenterExoeyftRRZFMDBFJY0708-53-07 18:25:00 Test Item Value Reference Range Interpretation Comments WBC (test code = WBC) 5.4 3.7-10.4 [facility] CenterMsqcxpkYSTHGDFUHK9691-82-00 18:25:00 Test Item Value Reference Range Interpretation Comments MPV (test code = MPV) 7.2 7.4-10.4 [facility] CenterVkhncxlMGQARWWQQQ4803-02-20 18:25:00 Test Item Value Reference Range Interpretation Comments MCHC (test code = MCHC) 33.0 32.0-36.0 [facility] CenterXvgbqawWQAQYHMLPN1540-88-37 18:25:00 Test Item Value Reference Range Interpretation Comments RDW (test code = RDW) 14.0 11.5-14.5 [facility] CenterOehgzdjBPIKPKZLVH3490-84-21 18:25:00 Test Item Value Reference Range Interpretation Comments Platelet (test code = Platelet) 278 133-450 [facility] CenterWnwunzbZAJUXNTCUV2968-02-74 18:25:00 Test Item Value Reference Range Interpretation Comments MCH (test code = MCH) 29.0 pg 27.0-31.0 [facility] CenterElkvjmyZNYINGDSCP4624-34-71 18:25:00 Test Item Value Reference Range Interpretation Comments MCV (test code = MCV) 87.9 80.0-98.0 [facility] CenterMsgjrcrXUPNWJPSFJ6495-56-31 18:25:00 Test Item Value Reference Range Interpretation Comments Hct (test code = Hct) 39.7 36.0-48.0 [facility] CenterBlzgxzkKOIUJDOKRF6100-57-81 18:25:00 Test Item Value Reference Range Interpretation Comments Eosinophils (test code = 2.2 See_Comment [A utomated message] The Eosinophils) system which ge nerated this result tra nsmitted reference range : <=4.0. The reference r robbie was not used to int erpret this result as normal/abnormal . [facility] CenterVbzgwvaKUYLSQOTPK6359-59-12 18:25:00 Test Item Value Reference Range Interpretation Comments Segs-Bands # (test code = Segs-Bands #) 2.8 1.5-8.1 [facility] CenterPyrbbedQHZGCEWNXU7488-01-56 18:25:00 Test Item Value Reference Range Interpretation Comments Basophils (test code = 0.9 See_Comment [Aut omated message] The Basophils) system which ge nerated this result tra nsmitted reference range : <=1.0. The reference r robbie was not used to int erpret this result as normal/abnormal . [facility] CenterFgnikqfVUIMTMEYYX6264-60-45 18:25:00 Test Item Value Reference Range Interpretation Comments Lymphocytes # (test code = Lymphocytes 2.1 1.0-5.5 #) [facility] CenterSonisfuJKZPEHUCOO5158-14-32 18:25:00 Test Item Value Reference Range Interpretation Comments Segs (test code = Segs) 52.3 45.0-75.0 [place] [id number] 18:25:00 Test Item Value Reference Range Interpretation Comments Lymphocytes (test code = Lymphocytes) 38.0 20.0-40.0 [facility]YbppowiXEKBSXWPYF1846-88-85 18:25:00 Test Item Value Reference Range Interpretation Comments Monocytes (test code = Monocytes) 6.6 2.0-12.0 [facility] CenterLfsxkxtNEICHPCAOU7166-35-02 18:25:00 Test Item Value Reference Range Interpretation Comments Basophils # (test code 0.1 See_Comment [Aut omated message] The = Basophils #) system which generated this result tra nsmitted reference range : <=0.2. The reference r robbie was not used to int erpret this result as normal/abnormal . [facility] CenterZuvcpscZVBJVYFSIP0886-03-61 18:25:00 Test Item Value Reference Range Interpretation Comments Eosinophils # (test code 0.1 See_Comment [A utomated message] The = Eosinophils #) system whic h generated this result tra nsmitted reference range : <=0.5. The reference r robbie was not used to int erpret this result as normal/abnormal . [facility] CenterKuuytnbBMUBHSUCCN9686-39-42 18:25:00 Test Item Value Reference Range Interpretation Comments Monocytes # (test code 0.4 See_Comment [Aut omated message] The = Monocytes #) system which generated this result tra nsmitted reference range : <=0.8. The reference r robbie was not used to int erpret this result as normal/abnormal . [facility] LSJMO5382-28-27 08:58:00 Test Item Value Reference Range Interpretation Comments Phosphorus (test code = Phosphorus) 2.9 2.5-4.5 [facility]CHE[facility] QIUWW5780-40-01 08:58:00 Test Item Value Reference Range Interpretation Comments Magnesium Lvl (test code = Magnesium 2.4 1.8-2.4 Lvl) [facility] SurgeryLomaljfEGFRGOOGMXWI8048-09-45 08:58:00 Test Item Value Reference Range Interpretation Comments Sodium Lvl (test code = Sodium Lvl) 139 135-145 [facility] SurgeryGwvhxunWVPDOXEXLVDI7436-28-77 08:58:00 Test Item Value Reference Range Interpretation Comments Creatinine Lvl (test code = Creatinine 1.14 0.50-1.40 Lvl) [facility] SurgeryTfyuqgmWBSELUIGQOSX4055-59-08 08:58:00 Test Item Value Reference Range Interpretation Comments Chloride Lvl (test code = Chloride Lvl) 104 95-109 [facility] SurgeryFvavkxvZFDPICPOATPK3175-61-33 08:58:00 Test Item Value Reference Range Interpretation Comments CO2 (test code = CO2) 28 24-32 [facility] SurgeryPeojbmbYXEQMOHZXWPD2386-41-77 08:58:00 Test Item Value Reference Range Interpretation Comments Calcium Lvl (test code = Calcium Lvl) 8.7 8.5-10.5 [facility] SurgeryCawfshrQAEOFLDAWFOR0198-33-39 08:58:00 Test Item Value Reference Range Interpretation Comments Potassium Lvl (test code = Potassium 4.8 3.5-5.1 Lvl) [facility] SurgeryDfwtcscIKKBNVCASEQR8289-18-45 08:58:00 Test Item Value Reference Range Interpretation Comments AGAP (test code = AGAP) 11.8 10.0-20.0 [facility] SurgeryJhngulqHRTPXHINDBKN4043-08-35 08:58:00 Test Item Value Reference Range Interpretation Comments eGFR (test code = eGFR) 45 [facility] SurgeryWubcreqGSBRKOKTYKWI2550-35-96 08:58:00 Test Item Value Reference Range Interpretation Comments BUN (test code = BUN) 25 7-22 [facility] SurgerySybqzjuQQIZFFRUDMZY3309-90-56 08:58:00 Test Item Value Reference Range Interpretation Comments Glucose Lvl (test code = Glucose Lvl) 113 70-99 [facility] HospitalYhkjxrtQJIUJAJLDT7186-80-38 08:58:00 Test Item Value Reference Range Interpretation Comments MPV (test code = MPV) 7.8 7.4-10.4 [facility] CenterBpxntpsCLWXBPKGFT4184-80-99 08:58:00 Test Item Value Reference Range Interpretation Comments Platelet (test code = Platelet) 301 568-450 [facility] CenterOralawxYUAWGLGOJC3672-47-63 08:58:00 Test Item Value Reference Range Interpretation Comments RDW (test code = RDW) 14.1 11.5-14.5 [facility] CenterWizntedVEJQOAJIRU7050-14-74 08:58:00 Test Item Value Reference Range Interpretation Comments MCH (test code = MCH) 29.9 pg 27.0-31.0 [facility] CenterNvwlcdfZSQIJCWXWG7497-90-72 08:58:00 Test Item Value Reference Range Interpretation Comments MCV (test code = MCV) 89.6 80.0-98.0 [facility] CenterZnhwmcgDWRFNZRRXR6436-03-58 08:58:00 Test Item Value Reference Range Interpretation Comments MCHC (test code = MCHC) 33.4 32.0-36.0 [facility] CenterAwyhnmwSWBACMARVJ6546-41-52 08:58:00 Test Item Value Reference Range Interpretation Comments Hct (test code = Hct) 34.3 36.0-48.0 [facility] CenterOyxemywXJKRLHOIDH9218-88-57 08:58:00 Test Item Value Reference Range Interpretation Comments Hgb (test code = Hgb) 11.5 12.0-16.0 [facility] CenterUgettceCIGRWWOLOX2449-56-86 08:58:00 Test Item Value Reference Range Interpretation Comments RBC (test code = RBC) 3.83 4.20-5.40 [facility] CenterAromrcnHWSEXDPVZT1702-75-27 08:58:00 Test Item Value Reference Range Interpretation Comments WBC (test code = WBC) 8.2 3.7-10.4 [facility] CenterXcyrwhoHYTQVVIBPT5657-15-16 08:58:00 Test Item Value Reference Range Interpretation Comments Lymphocytes # (test code = Lymphocytes 1.9 1.0-5.5 #) [facility] CenterIsfeccdOONQDYUUOQ0466-18-15 08:58:00 Test Item Value Reference Range Interpretation Comments Segs-Bands # (test code = Segs-Bands #) 5.5 1.5-8.1 [facility] CenterPchmxeuPEUOBZCOQH5810-19-07 08:58:00 Test Item Value Reference Range Interpretation Comments Eosinophils (test code = 1.4 See_Comment [A utomated message] The Eosinophils) system which ge nerated this result tra nsmitted reference range : <=4.0. The reference r robbie was not used to int erpret this result as normal/abnormal . [facility] CenterXezcyvgRFCVAVPTUG8968-75-15 08:58:00 Test Item Value Reference Range Interpretation Comments Basophils (test code = 0.5 See_Comment [Aut omated message] The Basophils) system which ge nerated this result tra nsmitted reference range : <=1.0. The reference r robbie was not used to int erpret this result as normal/abnormal . [facility] CenterCufdtzqRALPWNEAVZ5193-90-02 08:58:00 Test Item Value Reference Range Interpretation Comments Monocytes (test code = Monocytes) 9.1 2.0-12.0 [facility] CenterWixazgwZMSREGNVJL3796-46-24 08:58:00 Test Item Value Reference Range Interpretation Comments Segs (test code = Segs) 66.2 45.0-75.0 [facility] CenterAkvqtxvKBTGEHIPYA5820-57-13 08:58:00 Test Item Value Reference Range Interpretation Comments Lymphocytes (test code = Lymphocytes) 22.8 20.0-40.0 [facility] CenterJrwdstdYMOLMSTDDF5193-53-93 08:58:00 Test Item Value Reference Range Interpretation Comments Eosinophils # (test code 0.1 See_Comment [A utomated message] The = Eosinophils #) system whic h generated this result tra nsmitted reference range : <=0.5. The reference r robbie was not used to int erpret this result as normal/abnormal . [facility] CenterPvgqhmhSITXEELGBP5503-28-46 08:58:00 Test Item Value Reference Range Interpretation Comments Monocytes # (test code 0.7 See_Comment [Aut omated message] The = Monocytes #) system which generated this result tra nsmitted reference range : <=0.8. The reference r robbie was not used to int erpret this result as normal/abnormal . [facility] HospitalRocketfuel Games BVGJU5497-47-11 09:58:00 Test Item Value Reference Range Interpretation Comments Phosphorus (test code = Phosphorus) 3.7 2.5-4.5 [facility] HospitalRocketfuel Games UUVRL0921-53-95 09:58:00 Test Item Value Reference Range Interpretation Comments Magnesium Lvl (test code = Magnesium 2.1 1.8-2.4 Lvl) [facility]2016-09-01 09:58:00 Test Item Value Reference Range Interpretation Comments eGFR (test code = eGFR) 42 [facility]2016-09-01 09:58:00 Test Item Value Reference Range Interpretation Comments AGAP (test code = AGAP) 12.9 10.0-20.0 [facility]2016-09-01 09:58:00 Test Item Value Reference Range Interpretation Comments Chloride Lvl (test code = Chloride Lvl) 104 95-109 [facility]2016-09-01 09:58:00 Test Item Value Reference Range Interpretation Comments CO2 (test code = CO2) 25 24-32 [facility]2016-09-01 09:58:00 Test Item Value Reference Range Interpretation Comments Calcium Lvl (test code = Calcium Lvl) 8.5 8.5-10.5 [facility]2016-09-01 09:58:00 Test Item Value Reference Range Interpretation Comments Potassium Lvl (test code = Potassium 3.9 3.5-5.1 Lvl) [facility]2016-09-01 09:58:00 Test Item Value Reference Range Interpretation Comments Creatinine Lvl (test code = Creatinine 1.22 0.50-1.40 Lvl) [facility]2016-09-01 09:58:00 Test Item Value Reference Range Interpretation Comments Sodium Lvl (test code = Sodium Lvl) 138 135-145 [facility]2016-09-01 09:58:00 Test Item Value Reference Range Interpretation Comments BUN (test code = BUN) 24 7-22 [facility]2016-09-01 09:58:00 Test Item Value Reference Range Interpretation Comments Glucose Lvl (test code = Glucose Lvl) 92 70-99 [facility]2016-08-31 14:11:00 Test Item Value Reference Range Interpretation Comments Aldosterone (test code = Aldosterone) no gt [facility] HospitalOqxpbxySSNLHGPSAROBP8026-67-47 13:47:00 Test Item Value Reference Range Interpretation Comments Cortisol (test code = Cortisol) 8.6 [facility]2016-08-31 07:59:00 Test Item Value Reference Range Interpretation Comments Phosphorus (test code = Phosphorus) 3.3 2.5-4.5 [facility] HospitalCHEM QEARN2452-22-50 07:59:00 Test Item Value Reference Range Interpretation Comments Magnesium Lvl (test code = Magnesium 1.8 1.8-2.4 Lvl) [facility] SurgeryUcbbdpaPRUWWIFONVOM7678-25-25 07:59:00 Test Item Value Reference Range Interpretation Comments AGAP (test code = AGAP) 11.2 10.0-20.0 [facility] SurgeryTmfcjhaZAYFIKHGCLHI8367-22-49 07:59:00 Test Item Value Reference Range Interpretation Comments eGFR (test code = eGFR) 49 [facility] SurgeryFoexqqgCBGPMYNDOYPA4057-51-89 07:59:00 Test Item Value Reference Range Interpretation Comments Calcium Lvl (test code = Calcium Lvl) 8.4 8.5-10.5 [facility] SurgeryAucrwwiWIUYHOQYQDZK2725-55-14 07:59:00 Test Item Value Reference Range Interpretation Comments Potassium Lvl (test code = Potassium 4.2 3.5-5.1 Lvl) [facility] SurgeryJmbvhhqARSJMPKEFSPG5199-03-90 07:59:00 Test Item Value Reference Range Interpretation Comments Chloride Lvl (test code = Chloride Lvl) 105 95-109 [facility] SurgeryMgmioshCQVVBSUBTXRM6593-83-58 07:59:00 Test Item Value Reference Range Interpretation Comments CO2 (test code = CO2) 28 24-32 [facility] SurgeryXyepejlYSNQJFSXKHZR1409-92-29 07:59:00 Test Item Value Reference Range Interpretation Comments BUN (test code = BUN) 22 7-22 [facility] SurgeryYekuunaTCCJVYHLHTDJ5334-32-27 07:59:00 Test Item Value Reference Range Interpretation Comments Glucose Lvl (test code = Glucose Lvl) 109 70-99 [facility] SurgeryYipoxzlHTSLZRYGASHE9790-53-00 07:59:00 Test Item Value Reference Range Interpretation Comments Creatinine Lvl (test code = Creatinine 1.07 0.50-1.40 Lvl) [facility] SurgeryAoydzgpBTKHNXNQJVDJ5624-23-78 07:59:00 Test Item Value Reference Range Interpretation Comments Sodium Lvl (test code = Sodium Lvl) 140 135-145 [facility]HwtujwrKVEDKLFYWJ1002-43-21 07:59:00 Test Item Value Reference Range Interpretation Comments WBC (test code = WBC) 7.3 3.7-10.4 [facility] CenterZdlmeoxXHMXPFUEIG0132-39-72 07:59:00 Test Item Value Reference Range Interpretation Comments MCH (test code = MCH) 29.6 pg 27.0-31.0 [facility] CenterYbfotlaUZKTRSHFWB3961-78-72 07:59:00 Test Item Value Reference Range Interpretation Comments MCV (test code = MCV) 88.9 80.0-98.0 [facility] CenterXjtkdigCOPOUHNJBA9084-25-85 07:59:00 Test Item Value Reference Range Interpretation Comments Hct (test code = Hct) 36.7 36.0-48.0 [facility] CenterYuceqfrOKOIOFSUBV4361-07-67 07:59:00 Test Item Value Reference Range Interpretation Comments Hgb (test code = Hgb) 12.2 12.0-16.0 [facility] CenterCxjbdhzNCESEIFGVG7945-21-93 07:59:00 Test Item Value Reference Range Interpretation Comments RBC (test code = RBC) 4.12 4.20-5.40 [facility] CenterOrvufeuJFLCCGOUMK9249-70-32 07:59:00 Test Item Value Reference Range Interpretation Comments MPV (test code = MPV) 7.3 7.4-10.4 [facility] CenterVogjeidMAMSLHSOUC2423-13-67 07:59:00 Test Item Value Reference Range Interpretation Comments Platelet (test code = Platelet) 290 133-450 [facility] CenterBnsikwdEUNQQBDZXR9431-99-74 07:59:00 Test Item Value Reference Range Interpretation Comments RDW (test code = RDW) 13.8 11.5-14.5 [facility] CenterVjvxvahHIABEYZOEC5879-08-53 07:59:00 Test Item Value Reference Range Interpretation Comments MCHC (test code = MCHC) 33.3 32.0-36.0 [facility] CenterDakqeadJBJMOAWEVE8466-28-59 07:59:00 Test Item Value Reference Range Interpretation Comments Lymphocytes # (test code = Lymphocytes 1.6 1.0-5.5 #) [facility] CenterBhcexkfPOPKIPQHPD0102-32-34 07:59:00 Test Item Value Reference Range Interpretation Comments Segs-Bands # (test code = Segs-Bands #) 4.8 1.5-8.1 [facility] CenterYbwwuutQWRMBDJUAY4565-89-56 07:59:00 Test Item Value Reference Range Interpretation Comments Eosinophils # (test code 0.2 See_Comment [A utomated message] The = Eosinophils #) system whic h generated this result tra nsmitted reference range : <=0.5. The reference r robbie was not used to int erpret this result as normal/abnormal . [facility] CenterIzhwkdnFQFEEHXMCA2111-21-30 07:59:00 Test Item Value Reference Range Interpretation Comments Monocytes # (test code 0.7 See_Comment [Aut omated message] The = Monocytes #) system which generated this result tra nsmitted reference range : <=0.8. The reference r robbie was not used to int erpret this result as normal/abnormal . [facility] CenterKfhxcfnBTCNECWRRQ5605-25-68 07:59:00 Test Item Value Reference Range Interpretation Comments Basophils # (test code 0.1 See_Comment [Aut omated message] The = Basophils #) system which generated this result tra nsmitted reference range : <=0.2. The reference r robbie was not used to int erpret this result as normal/abnormal . [facility] CenterUkfnagtLGPZPPTGYZ0999-05-07 07:59:00 Test Item Value Reference Range Interpretation Comments Lymphocytes (test code = Lymphocytes) 21.7 20.0-40.0 [facility] CenterTgayjpaGAUZVQCCJK4866-31-12 07:59:00 Test Item Value Reference Range Interpretation Comments Segs (test code = Segs) 65.6 45.0-75.0 [facility] CenterVoffqaoQAOEBZXHBC0200-17-47 07:59:00 Test Item Value Reference Range Interpretation Comments Basophils (test code = 0.8 See_Comment [Aut omated message] The Basophils) system which ge nerated this result tra nsmitted reference range : <=1.0. The reference r robbie was not used to int erpret this result as normal/abnormal . [facility] CenterEsxxfjtYDOGSKVSMQ7870-50-78 07:59:00 Test Item Value Reference Range Interpretation Comments Eosinophils (test code = 2.1 See_Comment [A utomated message] The Eosinophils) system which ge nerated this result tra nsmitted reference range : <=4.0. The reference r robbie was not used to int erpret this result as normal/abnormal . [facility] CenterFjnklskZKCBTLJCCU1752-53-15 07:59:00 Test Item Value Reference Range Interpretation Comments Monocytes (test code = Monocytes) 9.8 2.0-12.0 [facility] CenterMyntawdQGUTBGELVI6856-64-12 08:51:00 Test Item Value Reference Range Interpretation Comments Segs (test code = Segs) 53.8 45.0-75.0 [facility] CenterWrytwbnRCGLTFXKYS0606-83-85 08:51:00 Test Item Value Reference Range Interpretation Comments Monocytes # (test code 0.6 See_Comment [Aut omated message] The = Monocytes #) system which generated this result tra nsmitted reference range : <=0.8. The reference r robbie was not used to int erpret this result as normal/abnormal . [facility] CenterQupckbaDJNWJOWSKJ9102-08-25 08:51:00 Test Item Value Reference Range Interpretation Comments Basophils (test code = 0.7 See_Comment [Aut omated message] The Basophils) system which ge nerated this result tra nsmitted reference range : <=1.0. The reference r robbie was not used to int erpret this result as normal/abnormal . [facility] CenterEvkuxhhGKOYMOXTGE2018-85-71 08:51:00 Test Item Value Reference Range Interpretation Comments Segs-Bands # (test code = Segs-Bands #) 3.1 1.5-8.1 [facility] CenterHsdmglkODBKKMQYXP9302-24-02 08:51:00 Test Item Value Reference Range Interpretation Comments Monocytes (test code = Monocytes) 9.7 2.0-12.0 [facility] CenterFvlsyaiIKRBENORCV7155-62-01 08:51:00 Test Item Value Reference Range Interpretation Comments Eosinophils (test code = 3.5 See_Comment [A utomated message] The Eosinophils) system which ge nerated this result tra nsmitted reference range : <=4.0. The reference r robbie was not used to int erpret this result as normal/abnormal . [facility] CenterPvcpeskKLJMNZXWVF9372-07-76 08:51:00 Test Item Value Reference Range Interpretation Comments Lymphocytes (test code = Lymphocytes) 32.3 20.0-40.0 [facility] CenterUaqzvvmWKWEVRAMRF9109-52-35 08:51:00 Test Item Value Reference Range Interpretation Comments Eosinophils # (test code 0.2 See_Comment [A utomated message] The = Eosinophils #) system whic h generated this result tra nsmitted reference range : <=0.5. The reference r robbie was not used to int erpret this result as normal/abnormal . [facility] CenterDpakzqwQDJNXMDBCU2359-46-71 08:51:00 Test Item Value Reference Range Interpretation Comments Lymphocytes # (test code = Lymphocytes 1.8 1.0-5.5 #) [facility] CenterHczkwouRPEUNHMCKD3429-52-05 08:51:00 Test Item Value Reference Range Interpretation Comments MPV (test code = MPV) 7.6 7.4-10.4 [facility] CenterJrmngfuTEWMRZCSGJ2421-81-35 08:51:00 Test Item Value Reference Range Interpretation Comments MCH (test code = MCH) 30.0 pg 27.0-31.0 [facility] CenterDfktwygSXDUNXUWFC5344-84-07 08:51:00 Test Item Value Reference Range Interpretation Comments MCV (test code = MCV) 89.1 80.0-98.0 [facility] CenterPkezvviSREPJSMVDT8045-07-88 08:51:00 Test Item Value Reference Range Interpretation Comments MCHC (test code = MCHC) 33.7 32.0-36.0 [facility] CenterBogmresAXWGIHTPBX1086-85-71 08:51:00 Test Item Value Reference Range Interpretation Comments RDW (test code = RDW) 13.8 11.5-14.5 [facility] CenterRtzqsdxOLYSGXXTBV7207-09-80 08:51:00 Test Item Value Reference Range Interpretation Comments Platelet (test code = Platelet) 266 133-450 [facility] CenterKodumcnRLHVNLMSWV2033-52-39 08:51:00 Test Item Value Reference Range Interpretation Comments Hgb (test code = Hgb) 12.1 12.0-16.0 [facility] CenterZpmignyWRBSFQBZKU1652-69-99 08:51:00 Test Item Value Reference Range Interpretation Comments Hct (test code = Hct) 35.8 36.0-48.0 [facility] CenterGtpqasaNUBEZZZIAZ6217-46-64 08:51:00 Test Item Value Reference Range Interpretation Comments WBC (test code = WBC) 5.7 3.7-10.4 [facility] CenterOmkqretFOQVMAHHVQ8174-62-68 08:51:00 Test Item Value Reference Range Interpretation Comments RBC (test code = RBC) 4.01 4.20-5.40 [facility]2016-08-29 06:54:00 Test Item Value Reference Range Interpretation Comments Albumin Lvl (test code = Albumin Lvl) 3.2 3.5-5.0 [facility] FMJDE2141-25-49 06:54:00 Test Item Value Reference Range Interpretation Comments ALT (test code = ALT) 29 See_Comment [Auto mated message] The system which ge nerated this result transmit randolph reference range : <=65. The reference range was not used to interpr et this result as juan m l/abnormal. [facility] UHYJI5132-28-94 06:54:00 Test Item Value Reference Range Interpretation Comments Total Protein (test code = Total 7.4 6.4-8.4 Protein) [facility] MDSOX4725-53-13 06:54:00 Test Item Value Reference Range Interpretation Comments B/C Ratio (test code = B/C Ratio) 19 6-25 [facility] [id number] 06:54:00 Test Item Value Reference Range Interpretation Comments A/G Ratio (test code = A/G Ratio) 0.8 0.7-1.6 [facility] MJYCI4717-61-29 06:54:00 Test Item Value Reference Range Interpretation Comments Globulin (test code = Globulin) 4.2 2.7-4.2 [facility] GNVNH2879-69-45 06:54:00 Test Item Value Reference Range Interpretation Comments Bili Total (test code = Bili Total) 0.5 0.2-1.3 [facility] SJNFF9248-23-46 06:54:00 Test Item Value Reference Range Interpretation Comments Alk Phos (test code = Alk Phos) 66 39-136 [facility] [id number] 06:54:00 Test Item Value Reference Range Interpretation Comments AST (test code = AST) 23 See_Comment [Auto mated message] The system which ge nerated this result transmit randolph reference range : <=37. The reference range was not used to interpr et this result as juan m l/abnormal. [facility] HospitalAmerican Board of Addiction Medicine (ABAM)CARDIAC YBPXTGA1669-83-19 03:48:00 Test Item Value Reference Range Interpretation Comments Troponin-I (test code no gt See_Comment [Auto mated message] The = Troponin-I) system which g enerated this result transmit randolph reference range : <=0.40. The reference r robbie was not used to interpr et this result as juan m l/abnormal. [facility] HospitalTuivxkhNVVQVFAMGO6201-77-82 03:48:00 Test Item Value Reference Range Interpretation Comments PTT (test code = PTT) 30.5 s 22.9-35.8 [facility] HospitalBmemrqsZAIJUUOWIQ5056-14-46 03:48:00 Test Item Value Reference Range Interpretation Comments Etoh (%) (test code = Etoh (%)) no gt [facility] HospitalNfvzjdqEYQFIZPRHF0904-72-48 03:48:00 Test Item Value Reference Range Interpretation Comments Ethanol Lvl (test code = Ethanol Lvl) no gt [facility] AND [id number] 03:48:00 Test Item Value Reference Range Interpretation Comments UA Renal Epi (test code = UA Renal Epi) RARE [facility] AND [id number] 03:48:00 Test Item Value Reference Range Interpretation Comments UA Urobilinogen (test code = UA <=1.0 mg/dL 0.1-1.0 Urobilinogen) [facility] AND [id number] 03:48:00 Test Item Value Reference Range Interpretation Comments UA Color (test code = Yellow *NA*(04/21/16 UA Color) 10:48 PM) [facility] AND [id number] 03:48:00 Test Item Value Reference Range Interpretation Comments UA pH (test code = UA pH) 8.0 5.0-8.0 [facility] AND [id number] 03:48:00 Test Item Value Reference Range Interpretation Comments UA Spec Grav (test code = UA Spec Grav) 1.011 [facility] AND [id number] 03:48:00 Test Item Value Reference Range Interpretation Comments UA Turbidity (test code Slight *ABN*(04/21/16 = UA Turbidity) 10:48 PM) [facility] AND [id number] 03:48:00 Test Item Value Reference Range Interpretation Comments UA Glucose (test code = UA Negative mg/dL Glucose) [facility] AND [id number] 03:48:00 Test Item Value Reference Range Interpretation Comments UA Blood (test code = Negative (04/21/16 10:48 UA Blood) PM) [facility] AND [id number] 03:48:00 Test Item Value Reference Range Interpretation Comments UA Protein (test code = UA Protein) 30 mg/dL [facility] AND [id number] 03:48:00 Test Item Value Reference Range Interpretation Comments UA Bili (test code = Negative *NA*(04/21/16 UA Bili) 10:48 PM) [facility] AND [id number] 03:48:00 Test Item Value Reference Range Interpretation Comments UA Ketones (test code = UA Negative mg/dL Ketones) [facility] AND [id number] 03:48:00 Test Item Value Reference Range Interpretation Comments UA Nitrite (test code Negative (04/21/16 10:48 = UA Nitrite) PM) [facility] AND [id number] 03:48:00 Test Item Value Reference Range Interpretation Comments UA Leuk Est (test Negative (04/21/16 10:48 code = UA Leuk Est) PM) [facility] [id number] 03:48:00 Test Item Value Reference Range Interpretation Comments UA Amorph Chari (test code = Occasional /HPF UA Amorph Chari) [facility] [id number] 03:48:00 Test Item Value Reference Range Interpretation Comments UA WBC (test code = 1 See_Comment [Automa randolph message] The UA WBC) system which ge nerated this result transmit randolph reference range : <=5. The reference range was not used to interpr et this result as juan m l/abnormal. [facility] [id number] 03:48:00 Test Item Value Reference Range Interpretation Comments UA Mucus (test code = UA Mucus) Few /LPF [facility] [id number] 03:48:00 Test Item Value Reference Range Interpretation Comments UA Sq Epi (test code = UA Sq Occasional /LPF Epi) [facility]
[2022-02-03] MEDS ORDERED: METOPROLOL TARTRATE 5 MG/5 ML INJ IV ONE (21:48)
[2022-02-03 21:50] LABS: Absolute Lymphocytes (CBC) 2.7 K/uL (0.7-4.9); Hematocrit 39.5 % (36.0-45.0); Lymphocytes % 27.9 % (15.3-44.8); MPV 7.3 fL (7.6-11.3); RBC Red Blood Cell Count 4.45 M/uL (3.86-4.86)
[2022-02-03 21:53] LABS: Protime INR 1.43
[2022-02-03 22:16] LABS: Albumin 3.6 g/dL (3.4-5.0); Bilirubin Direct 0.1 mg/dL (0-0.2); Bilirubin Total 0.3 mg/dL (0.2-1.0); Digoxin Level 1.7 ng/mL (0.80-2.00); Magnesium 1.8 mg/dL (1.8-2.4); Potassium 5.1 mmol/L (3.5-5.1); Protein, Total 7.8 g/dL (6.4-8.2); Troponin High Sensitivity 13.7 pg/mL (<58.9)
--- NOTE | 2022-02-04 02:17 | ER ---
Nurse's Notes [facility] Name: Veena Gray Age: 87 yrs Sex: Female : 1935 Arrival Date: 02/03/2022 Time: 21:11 Bed 28 Private MD: Diagnosis: Atrial Fibrillation with RVR Presentation: 02/03 21:29 Chief complaint: Patient states: "I was at home and I felt like my heart was going as6 crazy and I was having chest pain" pt is newly dx with a-fib. Coronavirus screen: At this time, the client does not indicate any symptoms associated with coronavirus-19. Ebola Screen: No symptoms or risks identified at this time. Initial Sepsis Screen: Does the patient meet any 2 criteria? No. Patient's initial sepsis screen is negative. Does the patient have a suspected source of infection? No. Patient's initial sepsis screen is negative. Risk Assessment: Do you want to hurt yourself or someone else? Patient reports no desire to harm self or others. Onset of symptoms was February 03, 2022. 21:29 Method Of Arrival: Wheelchair as6 21:29 Acuity: RITIKA 2 as6 Historical: - Allergies: 21:31 Codeine; as6 21:31 Macrobid; as6 21:31 Nitrofurantoin; as6 21:31 PENICILLINS; as6 21:31 Sulfa (Sulfonamide Antibiotics); as6 - Home Meds: 21:31 Digoxin Oral 0.25 mg daily [Active]; Spironolactone Oral 25 mg daily [Active]; as6 levothyroxine oral 75 mcg daily [Active]; Prozac Oral 10 mg daily [Active]; - PMHx: 21:31 GERD; hiatal hernia; kidney disease; Myocardial infarction; Vertigo; as6 - PSHx: 21:31 Cholecystectomy; hysterectomy; Iliac stent; as6 - Immunization history:: Client reports receiving the 2nd dose of the Covid vaccine, pfizer. - Social history:: Smoking status: Patient/guardian denies using tobacco, the patient reports quitting approximately 30 years ago. Screenin:48 Abuse screen: Denies threats or abuse. Denies injuries from another. Nutritional as6 screening: No deficits noted. Tuberculosis screening: No symptoms or risk factors identified. Fall Risk None identified. Assessment: 21:30 General: Appears in no apparent distress. Behavior is calm, cooperative. Pain: Denies as6 pain. Neuro: Castañeda Agitation-Sedation Scale (RASS): 0 - Alert and Calm Level of Consciousness is awake, alert, obeys commands, Oriented to person, place, time, situation. Cardiovascular: Reports palpitations, Rhythm is atrial fibrillation with rapid ventricular response. Respiratory: Respiratory effort is even, unlabored, Respiratory pattern is regular, symmetrical. 22:46 Reassessment: Patient appears in no apparent distress at this time. as6 02/04 00:03 Reassessment: Patient and/or family updated on plan of care and expected duration. Pain as6 level reassessed. 02:02 Reassessment: No changes from previously documented assessment. General:. as6 Vital Signs: 02/03 21:29 BP 162 / 87; Pulse 145; Resp 16 S; Temp 97.7(TE); Pulse Ox 100% on R/A; Weight 51.71 kg as6 (R); Height 5 ft. 3 in. (160.02 cm) (R); Pain 0/10; 21:56 BP 130 / 93; Pulse 116; Resp 15 S; Pulse Ox 100% on R/A; as6 22:46 BP 127 / 95; Pulse 109; Resp 18 S; Pulse Ox 98% on R/A; as6 02/04 00:01 BP 146 / 89; Pulse 114; Resp 14 S; Pulse Ox 98% on R/A; as6 01:00 BP 150 / 96; Pulse 113; Resp 23 S; Pulse Ox 98% on R/A; as6 02:02 BP 137 / 99; Pulse 108; Resp 18 S; Pulse Ox 99% on R/A; as6 04:00 BP 141 / 80; Pulse 94; Resp 17 S; Pulse Ox 99% on R/A; as6 02/03 21:29 Body Mass Index 20.19 (51.71 kg, 160.02 cm) as6 ED Course: 02/03 21:11 Patient arrived in ED. bp1 21:14 Armaan Duran MD is Attending Physician. mh7 21:16 Kike De Jesus, RACH is Primary Nurse. as6 21:30 Inserted saline lock: 18 gauge in right antecubital area, using aseptic technique. as6 Blood collected. 21:31 Triage completed. as6 21:48 Arm band placed on. as6 21:48 Placed in gown. Bed in low position. Call light in reach. Side rails up X2. Adult w/ as6 patient. Client placed on continuous cardiac and pulse oximetry monitoring. NIBP monitoring applied. Warm blanket given. 22:42 XRAY Chest (1 view) In Process Unspecified. EDAR 02/04 02:16 Alan Santos MD is Hospitalizing Provider. [facility] 04:17 No provider procedures requiring assistance completed. Patient admitted, IV remains in as6 place. Administered Medications: 02/03 21:48 Drug: Lopressor (metoprolol) 5 mg Route: IVP; Site: right antecubital; as6 21:57 Drug: Lopressor (metoprolol) 5 mg Route: IVP; Site: right antecubital; as6 22:21 Drug: Lopressor (metoprolol) 5 mg Route: IVP; Site: right antecubital; as6 02/04 06:30 Follow up: Response: No adverse reaction as6 Medication: 04:18 VIS not applicable for this client. as6 Outcome: 02:16 Decision to Hospitalize by Provider. mh7 04:17 Admitted to ER Hold. Please see [facility] for further documentation. as6 04:17 Condition: stable 04:17 Instructed on the need for admit. 17:56 Patient left the ED. bp Signatures: Dispatcher [employer] EDAR Presley Morillo, RACH RN Stephany [facility] Armaan Duran MD MD [facility] Kike De Jesus RN RN as6
--- NOTE | 2022-02-04 02:17 | EDPHYS ---
Physician Documentation [facility] Name: Veena Gray Age: 87 yrs Sex: Female : 1935 Arrival Date: 02/03/2022 Time: 21:11 Bed 28 Private MD: ED Physician Armaan Duran HPI: 02/03 21:30 This 87 yrs old Female presents to ER via Unassigned with complaints of Afib. mh7 21:30 The patient presents with a history of irregular heart beat, heart racing. Context: The mh7 symptoms occur at rest. Onset: The symptoms/episode began/occurred today. Duration: The patient or guardian reports a single episode, that is still ongoing. Modifying factors: The symptoms are aggravated by nothing. The symptoms are alleviated by nothing. Associated signs and symptoms: Pertinent positives: chest pain, SOB, Pertinent negatives: anxiety, cough, fever, lightheadedness, nausea, syncope, near-syncope, unusual stressors, vertigo, vomiting. Severity of symptoms: At their worst the symptoms were moderate today, in the emergency department the symptoms are unchanged. The patient has experienced similar episodes in the past, several times. Historical: - Allergies: 21:31 Codeine; as6 21:31 Macrobid; as6 21:31 Nitrofurantoin; as6 21:31 PENICILLINS; as6 21:31 Sulfa (Sulfonamide Antibiotics); as6 - Home Meds: 21:31 Digoxin Oral 0.25 mg daily [Active]; Spironolactone Oral 25 mg daily [Active]; as6 levothyroxine oral 75 mcg daily [Active]; Prozac Oral 10 mg daily [Active]; - PMHx: 21:31 GERD; hiatal hernia; kidney disease; Myocardial infarction; Vertigo; as6 - PSHx: 21:31 Cholecystectomy; hysterectomy; Iliac stent; as6 - Immunization history:: Client reports receiving the 2nd dose of the Covid vaccine, [employer]. - Social history:: Smoking status: Patient/guardian denies using tobacco, the patient reports quitting approximately 30 years ago. ROS: 21:30 Constitutional: Negative for fever, chills, and weight loss, Eyes: Negative for injury, mh7 pain, redness, and discharge, ENT: Negative for injury, pain, and discharge, Neck: Negative for injury, pain, and swelling, Abdomen/GI: Negative for abdominal pain, nausea, vomiting, diarrhea, and constipation, Back: Negative for injury and pain, : Negative for injury, bleeding, discharge, and swelling, MS/Extremity: Negative for injury and deformity, Skin: Negative for injury, rash, and discoloration, Neuro: Negative for headache, weakness, numbness, tingling, and seizure, Psych: Negative for depression, anxiety, suicide ideation, homicidal ideation, and hallucinations, Allergy/Immunology: Negative for hives, rash, and allergies, Endocrine: Negative for neck swelling, polydipsia, polyuria, polyphagia, and marked weight changes, Hematologic/Lymphatic: Negative for swollen nodes, abnormal bleeding, and unusual bruising. Exam: 21:30 Constitutional: This is a well developed, well nourished patient who is awake, alert, mh7 and in no acute distress. Head/Face: Normocephalic, atraumatic. Eyes: Pupils equal round and reactive to light, extra-ocular motions intact. Lids and lashes normal. Conjunctiva and sclera are non-icteric and not injected. Cornea within normal limits. Periorbital areas with no swelling, redness, or edema. Neck: Trachea midline, no thyromegaly or masses palpated, and no cervical lymphadenopathy. Supple, full range of motion without nuchal rigidity, or vertebral point tenderness. No Meningismus. Chest/axilla: Normal chest wall appearance and motion. Nontender with no deformity. No lesions are appreciated. 21:30 Respiratory: Lungs have equal breath sounds bilaterally, clear to auscultation and percussion. No rales, rhonchi or wheezes noted. No increased work of breathing, no retractions or nasal flaring. Abdomen/GI: Soft, non-tender, with normal bowel sounds. No distension or tympany. No guarding or rebound. No evidence of tenderness throughout. Back: No spinal tenderness. No costovertebral tenderness. Full range of motion. Skin: Warm, dry with normal turgor. Normal color with no rashes, no lesions, and no evidence of cellulitis. MS/ Extremity: Pulses equal, no cyanosis. Neurovascular intact. Full, normal range of motion. Neuro: Awake and alert, GCS 15, oriented to person, place, time, and situation. Cranial nerves II-XII grossly intact. Motor strength 5/5 in all extremities. Sensory grossly intact. Cerebellar exam normal. Normal gait. Psych: Awake, alert, with orientation to person, place and time. Behavior, mood, and affect are within normal limits. 21:30 Cardiovascular: Rate: tachycardic, Rhythm: irregularly irregular, Pulses: no pulse deficits are appreciated, Heart sounds: normal, normal S1and S2, Edema: is not appreciated, JVD: is not appreciated. Vital Signs: 21:29 BP 162 / 87; Pulse 145; Resp 16 S; Temp 97.7(TE); Pulse Ox 100% on R/A; Weight 51.71 kg as6 (R); Height 5 ft. 3 in. (160.02 cm) (R); Pain 0/10; 21:56 BP 130 / 93; Pulse 116; Resp 15 S; Pulse Ox 100% on R/A; as6 22:46 BP 127 / 95; Pulse 109; Resp 18 S; Pulse Ox 98% on R/A; as6 06/13 00:01 BP 146 / 89; Pulse 114; Resp 14 S; Pulse Ox 98% on R/A; as6 01:00 BP 150 / 96; Pulse 113; Resp 23 S; Pulse Ox 98% on R/A; as6 02:02 BP 137 / 99; Pulse 108; Resp 18 S; Pulse Ox 99% on R/A; as6 04:00 BP 141 / 80; Pulse 94; Resp 17 S; Pulse Ox 99% on R/A; as6 06/12 21:29 Body Mass Index 20.19 (51.71 kg, 160.02 cm) as6 MDM: 02:15 Differential diagnosis: arrythmia, dehydration, stress disorder. Data reviewed: vital 7 signs, nurses notes, lab test result(s), cardiac enzymes, CBC, electrolytes, EKG, radiologic studies, plain films. Data interpreted: Pulse oximetry: on room air is 99 %. Interpretation: normal. Counseling: I had a detailed discussion with the patient and/or guardian regarding: the historical points, exam findings, and any diagnostic results supporting the discharge/admit diagnosis, the presence of at least one elevated blood pressure reading (>120/80) during this emergency department visit, lab results, radiology results, the need for further work-up and treatment in the hospital. Response to treatment: the patient's symptoms have mildly improved after treatment. 02:16 Patient medically screened. [facility] 02/03 21:28 Order name: Basic Metabolic Panel; Complete Time: 22:16 [facility] 02/03 21:28 Order name: CBC with Diff; Complete Time: 22:16 [facility] 02/03 21:28 Order name: LFT's; Complete Time: 22:16 [facility] 02/03 21:28 Order name: Magnesium; Complete Time: 22:16 [facility] 02/03 21:28 Order name: NT PRO-BNP; Complete Time: 22:16 [facility] 02/03 21:28 Order name: PT-INR; Complete Time: 22:16 [facility] 02/03 21:28 Order name: Troponin HS; Complete Time: 22:16 [facility] 02/03 21:29 Order name: Digoxin; Complete Time: 22:16 [facility] 02/04 02:30 Order name: COVID-19 SARS RT PCR (Document "Date of Onset" if Symptomatic) as6 02/04 03:09 Order name: Urine Dipstick-Ancillary [facility] 02/04 05:58 Order name: CBC with Automated Diff [facility] 02/04 06:35 Order name: Comprehensive Metabolic Panel [facility] 02/04 06:35 Order name: T4 Free [facility] 02/04 06:35 Order name: Magnesium [facility] 02/03 21:28 Order name: XRAY Chest (1 view) [facility] 02/03 21:28 Order name: EKG; Complete Time: 21:29 [facility] 02/03 21:28 Order name: Cardiac monitoring; Complete Time: 21:42 [facility] 02/03 21:28 Order name: EKG - Nurse/Tech; Complete Time: 21:42 [facility] 02/03 21:28 Order name: IV Saline Lock; Complete Time: 21:42 [facility] 02/03 21:28 Order name: Labs collected and sent; Complete Time: 21:42 [facility] 02/03 21:28 Order name: O2 Per Protocol; Complete Time: 21:42 [facility] 02/03 21:28 Order name: O2 Sat Monitoring; Complete Time: 21:42 [facility] 02/03 21:28 Order name: Urine Dipstick-Ancillary (obtain specimen); Complete Time: 03:10 [facility] 02/04 06:35 Order name: Thyroid Stimulating Hormone EDMS Administered Medications: 02/03 21:48 Drug: Lopressor (metoprolol) 5 mg Route: IVP; Site: right antecubital; as6 21:57 Drug: Lopressor (metoprolol) 5 mg Route: IVP; Site: right antecubital; as6 22:21 Drug: Lopressor (metoprolol) 5 mg Route: IVP; Site: right antecubital; as6 02/04 06:30 Follow up: Response: No adverse reaction as6 Disposition Summary: 02/04/22 02:16 Hospitalization Ordered Hospitalization Status: Inpatient Admission [facility] Provider: Alan Santos Condition: Stable [facility] Problem: an acute exacerbation [facility] Symptoms: have improved [facility] Bed/Room Type: Standard [facility] Location: [facility] ER HOLD(02/04/22 03:00) Room Assignment: ERHOLD-(02/04/22 03:00) cg Diagnosis - Atrial Fibrillation with RVR [facility] Forms: - Medication Reconciliation Form 7 - SBAR form 7 Signatures: Dispatcher [employer] Zoie Chatterjee RN RN Armaan Duran MD MD 7 Kike De Jesus RN RN as6 Corrections: (The following items were deleted from the chart) 03:00 02:16 Telemetry/MedSurg (Inpatient) [facility] cg 03:00 02:16 [facility]
--- NOTE | 2022-02-04 02:44 | P.HP ---
Certification for Inpatient Patient admitted to: Observation With expected LOS: <2 Midnights Patient will require the following post-hospital care: None Practitioner: I am a practitioner with admitting privileges, knowledge of patient current condition, hospital course, and medical plan of care. Services: Services provided to patient in accordance with Admission requirements found in Title 42 Section 412.3 of the Code of Federal Regulations Patient History Date of Service: 02/04/22 Reason for admission: A. fib RVR History of Present Illness: 87-year-old female recently diagnosed with A. fib history of hypertension, GERD, CKD presents to the emergency department for palpitations. Patient arrives emergency department in A. fib RVR with a rate around 140-150 she is given 3 rounds of Lopressor IV her rate did respond and is currently around 110. She takes digoxin 2 5 mg daily at home her digoxin levels within normal limits at this time she has not had echocardiogram since she has been diagnosed with atrial fibrillation. ED prior wishes to admit under observation for A. fib RVR. Allergies codeine Allergy (Mild, Verified 01/05/21 16:49) upset stomach nitrofurantoin [From Macrobid] Allergy (Verified 01/05/21 16:49) Shortness of breath Penicillins Allergy (Verified 01/05/21 16:49) Hives Sulfa (Sulfonamide Antibiotics) Allergy (Verified 01/05/21 16:49) Hives/pulmonary fibrosis latex adhesives Allergy (Uncoded 01/05/21 16:49) "skin comes off" Home Medications: Ferrous Sulfate [Feosol] 325 mg PO BID #60 tablet 07/12/16 Levothyroxine [Synthroid*] 1 tab PO DAILY #30 tab 07/12/16 Folic Acid 800 mg PO BEDTIME 01/11/18 Nifedipine [Nifedipine ER] 30 mg PO BEDTIME 01/11/18 Aspirin 81 mg PO DAILY 01/05/21 Bacillus Coagulans/Inulin [Probiotic 1 B Cfu-250 mg Cap] 1 each PO BID 01/05/21 Cephalexin [Keflex*] 1 tab PO DAILY 01/05/21 Cranberry Fruit Extract [Cranberry] 425 mg PO DAILY 01/05/21 Magnesium Oxide [Magnesium] 250 mg PO BID 01/05/21 Mirabegron [Myrbetriq] 50 mg PO DAILY 01/05/21 ramipriL [Ramipril] 10 mg PO DAILY 01/05/21 Sertraline [Zoloft] 25 mg PO DAILY 01/12/21 - Past Medical/Surgical History Diabetic: No -: Hypertension -: Coronary artery disease -: Chronic renal disease -: Orthostatics hypotension -: Osteoporosis -: Osteoarthritis -: GERD -: Depression with anxiety -: Hypothyroidism -: GERD surgery -: History of chest tube placements x3 -: History of heart catheterization -: Cholecystectomy -: Hysterectomy -: Right knee surgery -: R hip surgery Psychosocial/ Personal History: She is , she has 3 children, she lives at home, she is a retired [employer]. - Family History Mother -: Cancer Notes: PT states, " She from "Old Age", she was 89." Father -: Stroke Notes: from abdominal aneurysm - Social History Smoking Status: Never smoker Alcohol use: No CD- Drugs: No Caffeine use: Yes Place of Residence: Home Review of Systems 10-point ROS is otherwise unremarkable General: Weakness Cardiovascular: Palpitations Physical Examination - Physical Exam General: Alert, In no apparent distress, Oriented x3 HEENT: Atraumatic, PERRLA, Mucous membr. moist/pink, EOMI, Sclerae nonicteric Neck: Supple, 2+ carotid pulse no bruit, No LAD, Without JVD or thyroid abnormality Respiratory: Clear to auscultation bilaterally, Normal air movement Cardiovascular: Normal S1 S2, Irregular heart rate/rhythm Gastrointestinal: Normal bowel sounds, No tenderness Musculoskeletal: No tenderness Integumentary: No rashes Neurological: Normal gait, Normal speech, Normal strength at 5/5 x4 extr, Normal tone, Normal affect Lymphatics: No axilla or inguinal lymphadenopathy - Studies Laboratory Data (last 24 hrs) 02/03/22 21:37: PT 15.8 H, INR 1.43 02/03/22 21:37: WBC 9.6, Hgb 12.9, Hct 39.5, Plt Count 295 02/03/22 21:37: Sodium 138, Potassium 5.1, BUN 18, Creatinine 1.23, Glucose 78, Magnesium 1.8, Total Bilirubin 0.3, AST 14 L, ALT 30, Alkaline Phosphatase 57 Assessment and Plan - Plan Assessment: A. fib RVR CKD 3 hypertension GERD Plan: A. fib RVR: Monitor on telemetry, cardiology consult in place continue digoxin, as needed IV Lopressor for rate control. Echocardiogram ordered. CKD 3: Stable hypertension: Continue home medication adjustments per cardiology. GERD: continue home meds DVT PPX: Continue Eliquis 2.5 Code status: Full Discharge Plan: Home Plan to discharge in: 24 Hours - Advance Directives Does patient have a Living Will: No Does patient have a Durable POA for Healthcare: No - Code Status/Comfort Care Code Status Assessed: Yes (Full code) Critical Care: No Time Spent Managing Pts Care (In Minutes): 70
[2022-02-04 03:09] LABS: Urine Blood 1+ (Negative); Urine Glucose Negative (Negative); Urine Protein 2+ (Negative); Urine Specific Gravity 1.025 (1.005-1.030)
[2022-02-04] MEDS ORDERED: ONDANSETRON 4 MG/2 ML VIAL IV PRN (05:11)
[2022-02-04 05:54] LABS: Absolute Lymphocytes (CBC) 1.6 K/uL (0.7-4.9); Lymphocytes % 24.3 % (15.3-44.8); MPV 7.2 fL (7.6-11.3); RBC Red Blood Cell Count 3.85 M/uL (3.86-4.86)
[2022-02-04 06:18] LABS: Bilirubin Total 0.3 mg/dL (0.2-1.0); Magnesium 1.7 mg/dL (1.8-2.4); Potassium 5.2 mmol/L (3.5-5.1); Protein, Total 6.7 g/dL (6.4-8.2); Thyroid Stimulating Hormone 1.08 uIU/mL (0.360-3.740)
[2022-02-04 06:23] VITALS: BMI 20.2
[2022-02-04] MEDS ORDERED: DIGOXIN 0.25 MG TABLET PO SCH (09:00)
[2022-02-04] MEDS ORDERED: APIXABAN 2.5 MG TABLET PO SCH (09:00)
[2022-02-04] MEDS ORDERED: MAGNESIUM SULFATE 1 gm IVPB 1 GM/100 ML BAG IV ONE ×2 (09:00→11:28)
[2022-02-04] MEDS ORDERED: APIXABAN 5 MG TABLET ONE (11:27)
[2022-02-04] MEDS ORDERED: DIGOXIN 0.25 MG TABLET ONE (11:27)
--- NOTE | 2022-02-04 13:34 | EKG ---
Test Date: 2022-02-03 Test Time: 21:18:19 Job Forwarder: MELLISSA MEASUREMENT RESULTS: Intervals: Rate: 147 [place]: QRSD: 76 QT: 290 QTc: 453 [place]: P: [place]: QRS: 108 T: -71 INTERPRETIVE STATEMENTS: Atrial fibrillation with RVR Rightward axis ST & T wave abnormality, consider inferior ischemia ST & T wave abnormality, consider anterolateral ischemia Abnormal ECG Compared to ECG 01/30/2022 11:57:09 ST (T wave) deviation still present Possible ischemia still present Electronically Signed On 02-04-22 13:32:59 CDT by Zhang Rivera
--- NOTE | 2022-02-04 15:38 | RAD REPORT ---
EXAM DESCRIPTION: RAD - Chest Single View - 02/03/2022 10:41 pm CLINICAL HISTORY: PALPITATIONS. COMPARISON: None. TECHNIQUE: Single view AP chest radiograph(s). FINDINGS: Trace diffuse pulmonary perihilar interstitial thickening. Mild elevation of the left lauren diaphragm with mild adjacent atelectasis. Mild atelectasis in the right lung base. No definite infilt rate identified. No pleural effusion. No pneumothorax. Borderline cardiac size. No significant osseou s abnormality. IMPRESSION: Trace diffuse pulmonary interstitial thickening. Mild bibasilar atelectasis. Electronically signed by: Lurdes Dumont MD 02/03/2022 10:52 PM CDT Due to temporary technical issues with the PACS/Fluency reporting system, reports are being signed by the in house radiologist without review as a courtesy to ensure prompt reporting. The interpreting r adiologist is fully responsible for the content of the report.
[2022-02-04 16:51] VITALS: BP 133/87; TEMP 98.6
[2022-02-04 18:26] VITALS: O2SAT 99
--- NOTE | 2022-02-07 20:20 | CON ---
Date of Consultation: 02/04/2022 Reason For Consultation: Atrial fibrillation. History Of Present Illness: Ms. Gray is 87. Has a history of hypothyroidism, hypertension, and depr ession. Came in with rapid atrial fibrillation, remained in atrial fibrillation today, has controlle d response. She received digoxin, beta-ekn. She is on Eliquis. Echocardiogram is pending. She denied any chest pain, nausea, vomiting, diaphoresis, PND, orthopnea, or syncope. Denied any fever or chills. Past Medical History: As stated above. Allergies: SHE IS ALLERGIC TO PENICILLIN, CODEINE, AND SULFA. Review of Systems: Negative. Social History: Negative. Family History: Negative. Medications: At home include aspirin, Synthroid, nifedipine, ramipril, Myrbetriq, and Zoloft. Physical Examination: Vital Signs: Stable, afebrile, atrial fibrillation at rate of 80. HEENT: Negative. Neck: Supple with no bruit. Chest: Clear to auscultation and percussion. Cardiac: Revealed atrial fibrillation. No murmurs, gallops, or rubs. Abdomen: Benign. Extremities: Revealed no clubbing, cyanosis, or edema. Diagnostic Data: Within normal limits except for the EKG showing AFib. Her BNP was 4900. Impression And Plan: New onset atrial fibrillation in a patient with history of hypertension, hypoth yroidism, and depression. She is 87. I think she is on high risk for a stroke. I think she needs t o be on beta-blockers, Eliquis, digoxin as needed. We will see what her echocardiogram shows before making further decisions. SONYA/LIDIA Voice ID: [id number] Report ID: [id number]
== END 2022-02-04 17:30 | disposition home or self-care (01) ==
LOC: ER 21:10 → ERHOLD 02-04 02:44
PROVIDERS: ADMIT Hospitalist; ATTEND Hospitalist
DX: I48.91 Unspecified atrial fibrillation (principal); I12.9 Hypertensive chronic kidney disease with stage 1 through stage 4 chronic kidney disease, or unspecified chronic kidney disease; N18.30 Chronic kidney disease, stage 3 unspecified; E03.9 Hypothyroidism, unspecified; K21.9 Gastro-esophageal reflux disease without esophagitis; I25.10 Atherosclerotic heart disease of native coronary artery without angina pectoris; I95.1 Orthostatic hypotension; F41.8 Other specified anxiety disorders; M19.90 Unspecified osteoarthritis, unspecified site; I25.2 Old myocardial infarction; Z20.822 Contact with and (suspected) exposure to COVID-19; Z79.82 Long term (current) use of aspirin; Z79.899 Other long term (current) drug therapy; Z88.0 Allergy status to penicillin; Z88.2 Allergy status to sulfonamides; Z88.5 Allergy status to narcotic agent; Z88.8 Allergy status to other drugs, medicaments and biological substances; Z91.040 Latex allergy status; Z87.891 Personal history of nicotine dependence; Z90.49 Acquired absence of other specified parts of digestive tract; Z90.710 Acquired absence of both cervix and uterus; Z80.9 Family history of malignant neoplasm, unspecified; Z82.3 Family history of stroke
CPT/HCPCS: 93005; 85025 ×2; 80048; 36415; 83735 ×2; 85610; 80162; 80076; 84443; 81003; 84484; 84439; 80053; 83880; 71045; 96374; 99285; U0003; J3475; G0378 ×2

== ENCOUNTER 2022-04-21 18:51 | Inpatient (IN) | payer OTHER ==
--- OUTSIDE RECORDS SUMMARY | 2022-04-21 19:08 | XMS REPORT | Continuity of Care Document ---
:1935 Author Organization [facility] t Address [address] [place] [place] [address] Care Team Providers Name Role Phone YUSUF GIBOBNS Primary Care Physician Unavailable Gurwinder Haro Attending Clinician Unavailable RIKI REYEZ Attending Clinician Unavailable YUSUF GIBBONS Attending Clinician Unavailable Doctor Unassigned, [place] Attending Clinician Unavailable Therapy, [facility] Covid Infusion Attending Clinician Unavailable Ivan Fuentes MD Attending Clinician IVAN FUENTES Attending Clinician Unavailable REENA BEVERLY Attending Clinician Unavailable Deirdre Bowie PA-C Attending Clinician Reena Kerr Attending Clinician Yusuf Gibbons MD Attending Clinician 1, [facility] Infusion Nurse Attending Clinician Unavailable Iván Cowan Attending Clinician Unavailable UNKNOWN Attending Clinician Unavailable Neida Jones Attending Clinician +- [phone] Iván Cowan MD Attending Clinician MEAGHAN CASTREJON Attending Clinician Unavailable Meaghan Antony Attending Clinician Riki Reyez MD Attending Clinician Only, Ad[facility] Test Attending Clinician Unavailable Pob, [facility] Lab Main Attending Clinician Unavailable AIYANA HOLMAN Attending Clinician Unavailable Nathanael Henson DO Attending Clinician Mandie Byrnes Attending Clinician Radiology Attending Clinician Unavailable Pilo Greene Attending Clinician Alejandro Holder Attending Clinician Cayden Fong Attending Clinician Iván Cowan Admitting Clinician Unavailable RIKI REYEZ Admitting Clinician Unavailable YUSUF GIBBONS Admitting Clinician Unavailable Riki Reyez MD Admitting Clinician Pilo Greene Admitting Clinician Deirdre Sanon Jr Admitting Clinician Payers Payer Name Policy Type Policy Number Effective Date Expiration Date S [facility] MEDICARE PART A \\T\\ [id number] 1999 B 00:00:00 [place] LIFE [id number] 2016 00:00:00 [place] [id number] 2020 BENEFITS 00:00:00 Problems Condition Condition Condition Status Onset Resolution Last Treating Co mments Source Name Details Category Date Date Treatment Clinician Date CCL / CCL / Diagnosis Active 2018-082019-06-02 Mem oria RENAL RENAL 0- 05:41:00 l STENT STENT 00:00: [place] Active 00 05/25/2019 [facility] NEW PT NEW PT Diagnosis Active 2019-05-05 Me moria CONSULT - CONSULT - 04-23 14:43:00 l 2ND 2ND 00:00: Conrad OPINION OPINION 00 Active 04/23/2019 [facility] ATHEROSCLE ATHEROSCL Diagnosis Active 2016-11-19 Memoria ROSIS OF EROSIS OF - 13:05:00 l RED DEVIL RED DEVIL 00:00: Conrad ARTERIES ARTERIES 00 OF EX OF EX Active 10/17/2016 [facility] CCL/LEFT CCL/LEFT Diagnosis Active 2016-10-21 Memoria LEG LEG 2- 15:24:00 l ORTHOPEDIC TECH/DX: ORTHOPEDIC TECH/DX: 00:00: Conrad I70.221 I70.221 00 Active 10/17/2016 [facility] DIZZINESS DIZZINESS Diagnosis Active 2016-05-01 Memoria Active 04-21 22:08:00 l 04/21/2016 00:00: Galen martínez [address] Hyperurice Hyperurice Disease Active U shira evonne evonne 3-16 ity of 00:00: [place] [facility] Primary Primary Disease Active 2014-08 Univers hypothyroi hypothyroi 2-14 it y of dism dism 00:00: [place] [facility] Primary Primary Disease Active 2014-08 Univers hypothyroi hypothyroi 2-14 it y of dism dism 00:00: [place] [facility] [place] Osteoporos Osteoporos Disease Active U shira is is 9-28 ity of 00:00: [place] [facility] 593.2 - 593.2 - Diagnosis Active 2016-03-31 Memoria "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," KIDNEY," 00:01: [place] martínez Active 00 03/03/2015 MARIE Martines No known No known Disease Unive rs active active ity of problems problems [facility] Coronary Coronary Problem Resolve 2020-09-01 Memoria arterioscl arterioscl d 22:24:26 l erosis erosis Conrad (disorder) (disorder) Resolved Problem 09/01/2020 CAD with stents [facility] MARIE Carlson Gastroesop Gastroeso Problem Resolve 2020-09-01 Memoria hageal phageal d 22:24:26 l reflux reflux [place] disease disease (disorder) (disorder) Resolved Problem 09/01/2020 [facility] MARIE Carlson History of History Problem Resolve 2020-09-01 Memoria - surgery of - d 22:24:26 l (context-d surgery Mela nn ependent (context-d category) ependent category) Resolved Problem 09/01/2020 [facility] MARIE Carlson History of History Problem Resolve 2020-09-01 Memoria - vertigo of - d 22:24:26 l (context-d vertigo Mela nn ependent (context-d category) ependent category) Resolved Problem 09/01/2020 [facility], ZULLYZeinab AlbaRobyn Hypertensi Hypertens Problem Resolve 2020-09-01 Memoria ve nathan d 22:24:26 l disorder, disorder, Herm angela systemic systemic arterial arterial (disorder) (disorder) Resolved Problem 09/01/2020 [facility], MARIE Robyn ENCNTR FOR ENCNTR Diagnosis Active 2019-05-05 Memoria GENERAL FOR 14:43:00 l ADULT GENERAL [place] MEDICAL ADULT EXAM W/ MEDICAL EXAM W/ Active [facility] ILLNESS, ILLNESS, Diagnosis Active 2016-05-01 Memoria UNSPECIFIE UNSPECIFIE 22:08:00 l D D Active [facility] Myocardial Myocardia Problem Resolve 2020-09-01 2020-09-01 Memoria infarction l d 08-25 22:24:26 22:24:26 l (disorder) infarction 00:00: He rmann (disorder) 00 Resolved 08/25/2002 Problem 09/01/2020 [facility], MARIE Robyn Allergies, Adverse Reactions, Alerts Allergy Allergy Status Severity Reaction(s) Onset Inactive Treating Comm ents Source Name Type Date Date Clinician Penicill DA Active U HIVES [facility] ins 09-14 [place] 00:00: [facility] 00 are [facility] Sulfa DA Active U RASH [facility] (Sulfona 09-14 [place] mide 00:00: Healthc Antibiot 00 are ics) [facility] codeine DA Active U NAUSEA [facility] 09-14 [place] 00:00: [facility] 00 are [facility] Codeine Propensi Active Unknown - Gives Univ ers ty to See comments 2-11 patient ity of adverse 00:00: the [place] reaction 00 opposite Medica l s effects Branch from codeine per patient CODEINE DRUG Active Unknown-Cmnt Uni vers INGREDI 2-11 ity of 00:00: [place] 00 Medical Branch [...] 05-22 ity of adverse 00:00: [place] reaction Medical s Branch NITROFUR DRUG Active Hives Univers ANTOIN 05-22 ity of MONOHYD/ 00:00: [place] M-CRYST 00 Medical Branch PENICILL Drug Active Unknown-Cmnt Un [place] INS Class 05-22 ity of 00:00: [place] 00 Medical Branch SULFUR DRUG Active Hives Univers INGREDI 05-22 ity of 00:00: [place] 00 Medical Branch Penicill Propensi Active Unknown - Childhood Univers ins ty to See comments 05-22 allergy ity of adverse 00:00: [place] reaction 00 Medical s Branch penicill penicill Active Memori a ins<sup> ins<sup> 3-26 l 1</sup> 1</sup> 05:00: Conrad 00 sulfa sulfa Active Memoria drugs<ward drugs<ward 3-26 l p>2</sup p>2</sup 05:00: Galen n > > 00 nitrofur nitrofur Active Memori a antoin<s antoin<s 3-26 l up>3</ward up>3</ward 05:00: Galen n p> p> 00 sulfa sulfa Active Memoria drugs<ward drugs<ward 3-26 l p>3</sup p>3</sup 05:00: Galen n > > 00 penicill penicill Active Memori a ins<sup> ins<sup> 3-26 l 2</sup> 2</sup> 05:00: Conrad 00 codeine codeine Active Memoria l Conrad niacin niacin Active Memoria l Conrad Plavix Plavix Active Memoria l Conrad Celebrex Celebrex Active Memori a l Conrad Keflex Keflex Active Memoria l Conrad penicill penicill Active Memori a ins ins l Conrad sulfa sulfa Active Memoria drugs drugs l Conrad Social History Social Habit Start Date Stop Date Quantity Comments Source Exposure to Not sure University of SARS-CoV-2 [place] [facility] (event) Branch History of Current smoker University of tobacco use [facility] Tobacco use and 2022-03-13 2022-03-13 Smokeless tobacco Un iversity of exposure 00:00:00 00:00:00 non-user [facility] Tobacco Comment 2022-03-13 2022-03-13 quit 30 yrs ago Univ ersity of 00:00:00 00:00:00 [facility] Sex Ass[birth year] [facility] 00:00:00 00:00:00 Smoking Status Start Date Stop Date Source Tobacco smoking consumption [facility] unknown Social History 2020-08-23 14:59:17 2020-08-23 14:59:17 [facility] Medications Ordered Filled Start Stop Current Ordering Indication Dosage Frequency Signature Comments Components Source Medication Medication Date Date Medication? Clinician (SIG) Name Name mirabegron Yes Take by [facility] [place] [facility] ers (MYRBETRIQ) 7-20 mouth ity of 50 mg 17:29: daily. [place] tablet [address] [place] [address] d-mannose Yes Take by Unive rs 500 mg Cap 7-20 mouth. ity of 17:29: [address] spironolact Yes Take by Uni vers one 25 mg/5 7-20 mouth ity of mL oral 17:29: daily. [place] suspension [address] [place] [address] levothyroxi Yes 75mg Take 75 mg Univers ne sodium 7-20 by mouth. ity o f (LEVOTHROID 17:29: [place] ORAL) [address] [place] [address] mirabegron Yes Take by Univ ers (MYRBETRIQ) 7-20 mouth ity of 50 mg 17:29: daily. [place] tablet [address] [place] [address] d-mannose Yes Take by Unive rs 500 mg Cap 7-20 mouth. ity of 17:29: [address] spironolact Yes Take by Uni vers one 25 mg/5 7-20 mouth ity of mL oral 17:29: daily. [place] suspension [address] [place] [address] levothyroxi Yes 75mg Take 75 mg Univers ne sodium 7-20 by mouth. ity o f (LEVOTHROID 17:29: [place] ORAL) [address] [place] [address] mirabegron 0 Yes Take by Univ ers (MYRBETRIQ) 7-20 mouth ity of 50 mg 17:29: daily. [place] tablet 15 Medical Branch d-mannose 0 Yes Take by Unive rs 500 mg Cap 7-20 mouth. ity of 17:29: [place] 15 Medical Branch spironolact Yes Take by Uni vers one 25 mg/5 7-20 mouth ity of mL oral 17:29: daily. [place] suspension 15 Medical Branch levothyroxi 0 Yes 75mg Take 75 mg Univers ne sodium 7-20 by mouth. ity o f (LEVOTHROID 17:29: [place] ORAL) 15 Medical Branch mirabegron Yes Take by Univ ers (MYRBETRIQ) 7-20 mouth ity of 50 mg 17:29: daily. [place] tablet 15 Medical Branch d-mannose Yes Take by Unive rs 500 mg Cap 7-20 mouth. ity of 17:29: [place] 15 Medical Branch spironolact Yes Take by Uni vers one 25 mg/5 7-20 mouth ity of mL oral 17:29: daily. [place] suspension 15 Medical Branch levothyroxi 0 Yes 75mg Take 75 mg Univers ne sodium 7-20 by mouth. ity o f (LEVOTHROID 17:29: [place] ORAL) 15 Medical Branch amiodarone Yes 200mg Take 200 Un [place] 200 mg 7-12 mg by ity of tablet 00:00: mouth in [place] 00 the Medical morning. Branch amiodarone 2021-0 Yes 200mg Take 200 Un [place] 200 mg 7-12 mg by ity of tablet 00:00: mouth in [place] 00 the Medical morning. Branch amiodarone 2021-0 Yes 200mg Take 200 Un [place] 200 mg 7-12 mg by ity of tablet 00:00: mouth in [place] 00 the Medical morning. Branch amiodarone 2021-0 Yes 200mg Take 200 [facility] [place] 200 mg 7-12 mg by ity of tablet 00:00: mouth in [place] 00 the Medical morning. Branch amLODIPine 0 Yes 2.5mg Take 2.5 Un [place] 2.5 mg 6-20 mg by ity of tablet 00:00: mouth in [place] [address] the Medical morning Branch and 2.5 mg in the evening. amLODIPine 2021-0 Yes 2.5mg Take 2.5 Un [place] 2.5 mg 6-20 mg by ity of tablet 00:00: mouth in [place] [address] the Medical morning Branch and 2.5 mg in the evening. amLODIPine 2021-0 Yes 2.5mg Take 2.5 Un [place] 2.5 mg 6-20 mg by ity of tablet 00:00: mouth in [place] [address] the Medical morning Branch and 2.5 mg in the evening. amLODIPine 2021-0 Yes 2.5mg Take 2.5 Un [place] 2.5 mg 6-20 mg by ity of tablet 00:00: mouth in [place] [address] the [facility] morning [place] and 2.5 mg in the evening. ELIQUIS 2.5 2021-0 Yes 2.5mg Take 2.5 U nivers mg tablet 6-17 mg by ity of 00:00: mouth [place] ([facility]) Medical times [place] daily. ELIQUIS 2.5 2021-0 Yes 2.5mg Take 2.5 U nivers mg tablet 6-17 mg by ity of 00:00: mouth [place] ([facility]) Medical times [place] daily. ELIQUIS 2.5 2021-0 Yes 2.5mg Take 2.5 U nivers mg tablet 6-17 mg by ity of 00:00: mouth [place] ([facility]) Medical times [place] daily. ELIQUIS 2.5 2021-0 Yes 2.5mg Take 2.5 U nivers mg tablet 6-17 mg by ity of 00:00: mouth [place] [address] ([facility]) [facility] daily. denosumab 2021- No [id number] 60mg 60 mg, U nivers (PROLIA) 3-03 03-03 Subcutaneo ity of injection 15:00: 15:05 [place], [place]CE, [place] Sy[place] 60 mg 00 :00 1 dose, On [facility] 10/25/21 Branch at 0915, Routine
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
Reaso n for non-formul miquel use: PATIENT CURRENTLY TAKING NONFORMULA RY PRODUCT denosumab 2020- No [id number] 60mg Un [place] (PROLIA) 04-12 ity of injection 14:15: 14:19 [place] Syrg 60 mg 00 :00 [facility] Branch denosumab 2020- No [id number] 60mg 60 mg, Univers (PROLIA) 04-12 Subcutaneo ity of injection 14:15: 14:19 [place], [place]CE, [place] Sy[place] 60 mg 00 :00 1 dose, Medica l [place] Branch 04/12/21 at 0930, Routine
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
Reaso n for non-formul miquel use: PATIENT CURRENTLY TAKING NONFORMULA RY PRODUCT SERTraline Yes 12.5mg Take 12.5 Univers 25 mg 8-06 mg by ity of tablet 16:25: mouth. [address] [place] Yes 500mg Take 500 Uni vers 500 mg Cap 8-06 mg by ity of 16:25: mouth 2 [place] [address] (two) Medical times [place] daily. iron,carb/f Yes 1{tbl} Take 1 Un [place] olic ac/vit 8-06 tablet by ity of Bcomp,C 16:25: mouth 2 [place] (IRON-FOLIC 07 (two) Medical 500 ORAL) times [place] daily. SERTraline Yes 12.5mg Take 12.5 Univers 25 mg 8-06 mg by ity of tablet 16:25: mouth. [address] [place] Yes 500mg Take 500 Uni vers 500 mg Cap 8-06 mg by ity of 16:25: mouth 2 [place] [address] (two) Medical times [place] daily. iron,carb/f Yes 1{tbl} Take 1 [facility] [place] olic ac/vit 8-06 tablet by ity of Bcomp,C 16:25: mouth 2 [place] (IRON-FOLIC 07 (two) Medical 500 ORAL) times [place] daily. SERTraline Yes 12.5mg Take 12.5 Univers 25 mg 8-06 mg by ity of tablet 16:25: mouth. [address] [place] Yes 500mg Take 500 Uni vers 500 mg Cap 8-06 mg by ity of 16:25: mouth 2 [place] 07 (two) Medical times Branch daily. iron,carb/f 2020-0 Yes 1{tbl} Take 1 Un [place] olic ac/vit 8-06 tablet by ity of Bcomp,C 16:25: mouth 2 [place] (IRON-FOLIC 07 (two) Medical 500 ORAL) times Branch daily. SERTraline 2020-0 Yes 12.5mg Take 12.5 Univers 25 mg 8-06 mg by ity of tablet 11:25: mouth. Medical Branch [place] 2020-0 Yes 500mg Take 500 Uni vers 500 mg Cap 8-06 mg by ity of 11:25: mouth 2 [place] 07 (two) Medical times Branch daily. iron,carb/f 2020-0 Yes 1{tbl} Take 1 Un [place] olic ac/vit 8-06 tablet by ity of Bcomp,C 11:25: mouth 2 [place] (IRON-FOLIC 07 (two) Medical 500 ORAL) times Branch daily. SERTraline 2020-0 Yes 12.5mg Take 12.5 Univers 25 mg 8-06 mg by ity of tablet 11:25: mouth. [place] [address] Medical Branch [place] 2020-0 Yes 500mg Take 500 Uni vers 500 mg Cap 8-06 mg by ity of 11:25: mouth 2 [place] 07 (two) Medical times Branch daily. iron,carb/f 2020-0 Yes 1{tbl} Take 1 [facility] [place] olic ac/vit 8-06 tablet by ity of Bcomp,C 11:25: mouth 2 [place] (IRON-FOLIC 07 (two) Medical 500 ORAL) times Branch daily. SERTraline 2020-0 Yes 12.5mg Take 12.5 Univers 25 mg 8-06 mg by ity of tablet 11:25: mouth. [place] [address] Medical Branch [place] 2020-0 Yes 500mg Take 500 Uni vers 500 mg Cap 8-06 mg by ity of 11:25: mouth 2 [place] 07 (two) Medical times Branch daily. iron,carb/f 2020-0 Yes 1{tbl} Take 1 [place] olic ac/vit 8-06 tablet by ity of Bcomp,C 11:25: mouth 2 [place] (IRON-FOLIC 07 (two) Medical 500 ORAL) times Branch daily. SERTraline 2020-0 Yes 12.5mg Take 12.5 Univers 25 mg 8-06 mg by ity of tablet 11:25: mouth. [place] [address] Medical Branch [place] 2020-0 Yes 500mg Take 500 Uni vers 500 mg Cap 8-06 mg by ity of 11:25: mouth 2 [place] [address] (two) Medical times Branch daily. iron,carb/f 2020-0 Yes 1{tbl} Take 1 [place] olic ac/vit 8-06 tablet by ity of Bcomp,C 11:25: mouth 2 [place] (IRON-FOLIC 07 (two) Medical 500 ORAL) times Branch daily. SERTraline 2020-0 Yes 12.5mg Take 12.5 Univers 25 mg 8-06 mg by ity of tablet 11:25: mouth. [address] Branch [place] 0 Yes 500mg Take 500 Uni vers 500 mg Cap 8-06 mg by ity of 11:25: mouth 2 [place] [address] (two) Medical times Branch daily. iron,carb/f 2020-0 Yes 1{tbl} Take 1 [place] olic ac/vit 8-06 tablet by ity of Bcomp,C 11:25: mouth 2 [place] (IRON-FOLIC 07 (two) Medical 500 ORAL) times Branch daily. SERTraline 2020-0 Yes 12.5mg Take 12.5 Univers 25 mg 8-06 mg by ity of tablet 11:25: mouth. [place] [address] Medical Branch [place] 0 Yes 500mg Take 500 Uni vers 500 mg Cap 8-06 mg by ity of 11:25: mouth 2 [place] [address] (two) Medical times Branch daily. iron,carb/f 2020-0 Yes 1{tbl} Take 1 [place] olic ac/vit 8-06 tablet by ity of Bcomp,C 11:25: mouth 2 [place] (IRON-FOLIC 07 (two) Medical 500 ORAL) times Branch daily. SERTraline 2020-0 Yes 12.5mg Take 12.5 Univers 25 mg 8-06 mg by ity of tablet 11:25: mouth. [place] [address] Medical Branch [place] 2020-0 Yes 500mg Take 500 Uni vers 500 mg Cap 8-06 mg by ity of 11:25: mouth 2 [place] [address] (two) Medical times Branch daily. iron,carb/f 2020-0 Yes 1{tbl} Take 1 [place] olic ac/vit 8-06 tablet by ity of Bcomp,C 11:25: mouth 2 [place] (IRON-FOLIC 07 (two) Medical 500 ORAL) times Branch daily. folic acid Yes [id number] Take by [facility] (FA-8) 0.8 4-15 mouth. ity of mg Cap 15:51: [address] Magnesium Yes [id number] 500mg Take 500 Univers 250 mg Tab 4-15 mg by ity of 15:51: mouth. [address] aspirin 81 Yes 81mg Take 81 mg U nivers mg EC 4-15 by mouth ity of tablet 15:51: daily. [address] CALCIUM Yes Take by Univers CITRATE 4-15 mouth. ity of ORAL 15:51: [address] NIFEdipine Yes Nifedical [facility] [place] XL 30 mg 24 4-15 XL 30 mg ity of hr tablet 15:51: [place] [address] [place] [address] SERTraline Yes sertraline U nivers 25 mg 4-15 25 mg ity of tablet 15:51: tablet [address] mirabegron Yes Take by [facility] [place] [facility] ers (MYRBETRIQ) 4-15 mouth ity of 50 mg 15:51: daily. [address] ramipriL 10 Yes 10mg Take 10 mg Univers mg capsule 4-15 by mouth ity o f 15:51: daily. [address] folic acid Yes [id number] Take by [facility] (-8) 0.8 4-15 mouth. ity of mg Cap 15:51: [address] Magnesium Yes [id number] 500mg Take 500 Univers 250 mg Tab 4-15 mg by ity of 15:51: mouth. [address] aspirin 81 Yes 81mg Take 81 mg U nivers mg EC 4-15 by mouth ity of tablet 15:51: daily. [address] CALCIUM Yes Take by Univers CITRATE 4-15 mouth. ity of ORAL 15:51: [address] NIFEdipine Yes Nifedical [place] XL 30 mg 24 4-15 XL 30 mg ity of hr tablet 15:51: tablet,ext [place] 38 ended Medical release Branch SERTraline Yes sertraline U nivers 25 mg 4-15 25 mg ity of tablet 15:51: tablet [address] mirabegron Yes Take by [facility] [place] [facility] ers (MYRBETRIQ) 4-15 mouth ity of 50 mg 15:51: daily. [address] ramipriL 10 Yes 10mg Take 10 mg Univers mg capsule 4-15 by mouth ity o f 15:51: daily. [address] folic acid Yes [id number] Take by Univers (FA-8) 0.8 4-15 mouth. ity of mg Cap 15:51: [address] Magnesium Yes [id number] 500mg Take 500 Univers 250 mg Tab 4-15 mg by ity of 15:51: mouth. [address] aspirin 81 Yes 81mg Take 81 mg U nivers mg EC 4-15 by mouth ity of tablet 15:51: daily. [address] CALCIUM Yes Take by Univers CITRATE 4-15 mouth. ity of ORAL 15:51: [address] NIFEdipine Yes Nifedical [place] XL 30 mg 24 4-15 XL 30 mg ity of hr tablet 15:51: [place],ext [place] 38 ended Medical release Branch SERTraline Yes sertraline U nivers 25 mg 4-15 25 mg ity of tablet 15:51: tablet [address] mirabegron Yes Take by [facility] [place] [facility] ers (MYRBETRIQ) 4-15 mouth ity of 50 mg 15:51: daily. [address] ramipriL 10 Yes 10mg Take 10 mg Univers mg capsule 4-15 by mouth ity o f 15:51: daily. [address] folic acid Yes [id number] Take by Univers (FA-8) 0.8 4-15 mouth. ity of mg Cap 15:51: [address] Magnesium Yes [id number] 500mg Take 500 Univers 250 mg Tab 4-15 mg by ity of 15:51: mouth. [address] aspirin 81 0 Yes 81mg Take 81 mg U nivers mg EC 4-15 by mouth ity of tablet 15:51: daily. [address] CALCIUM Yes Take by Univers CITRATE 4-15 mouth. ity of ORAL 15:51: [address] NIFEdipine Yes Nifedical [place] XL 30 mg 24 4-15 XL 30 mg ity of hr tablet 15:51: [place],ext [place] 38 ended Medical release Branch SERTraline Yes sertraline U nivers 25 mg 4-15 25 mg ity of tablet 15:51: tablet [address] mirabegron Yes Take by [facility] [place] [facility] ers (MYRBETRIQ) 4-15 mouth ity of 50 mg 15:51: daily. [address] ramipriL 10 Yes 10mg Take 10 mg Univers mg capsule 4-15 by mouth ity o f 15:51: daily. [address] folic acid Yes [id number] Take by Univers (FA-8) 0.8 4-15 mouth. ity of mg Cap 15:51: [address] Magnesium Yes [id number] 500mg Take 500 Univers 250 mg Tab 4-15 mg by ity of 15:51: mouth. [address] aspirin 81 Yes 81mg Take 81 mg U nivers mg EC 4-15 by mouth ity of tablet 15:51: daily. [address] CALCIUM Yes Take by Univers CITRATE 4-15 mouth. ity of ORAL 15:51: [address] NIFEdipine Yes Nifedical [place] XL 30 mg 24 4-15 XL 30 mg ity of hr tablet 15:51: [place],ext [place] 38 ended Medical release Branch SERTraline Yes sertraline U nivers 25 mg 4-15 25 mg ity of tablet 15:51: tablet [address] mirabegron Yes Take by [facility] ers (MYRBETRIQ) 4-15 mouth ity of 50 mg 15:51: daily. [address] ramipriL 10 Yes 10mg Take 10 mg Univers mg capsule 4-15 by mouth ity o f 15:51: daily. [address] folic acid Yes [id number] Take by [facility] (FA-8) 0.8 4-15 mouth. ity of mg Cap 15:51: [address] Magnesium Yes [id number] 500mg Take 500 Univers 250 mg Tab 4-15 mg by ity of 15:51: mouth. [address] aspirin 81 0 Yes 81mg Take 81 mg U nivers mg EC 4-15 by mouth ity of tablet 15:51: daily. [address] CALCIUM Yes Take by Univers CITRATE 4-15 mouth. ity of ORAL 15:51: [address] NIFEdipine Yes Nifedical [place] XL 30 mg 24 4-15 XL 30 mg ity of hr tablet 15:51: [place],ext [place] 38 ended Medical release Branch SERTraline Yes sertraline U nivers 25 mg 4-15 25 mg ity of tablet 15:51: tablet [address] mirabegron Yes Take by [facility] [place] [facility] ers (MYRBETRIQ) 4-15 mouth ity of 50 mg 15:51: daily. [address] ramipriL 10 Yes 10mg Take 10 mg Univers mg capsule 4-15 by mouth ity o f 15:51: daily. [address] folic acid Yes [id number] Take by [facility] (-8) 0.8 4-15 mouth. ity of mg Cap 15:51: [address] Magnesium Yes [id number] 500mg Take 500 Univers 250 mg Tab 4-15 mg by ity of 15:51: mouth. [address] aspirin 81 0 Yes 81mg Take 81 mg U nivers mg EC 4-15 by mouth ity of tablet 15:51: daily. [address] CALCIUM Yes Take by Univers CITRATE 4-15 mouth. ity of ORAL 15:51: [address] NIFEdipine Yes Nifedical [place] XL 30 mg 24 4-15 XL 30 mg ity of hr tablet 15:51: [place],ext [place] 38 ended Medical release Branch mirabegron Yes Take by [facility] [place] [facility] ers (MYRBETRIQ) 4-15 mouth ity of 50 mg 15:51: daily. [address] ramipriL 10 Yes 10mg Take 10 mg Univers mg capsule 4-15 by mouth ity o f 15:51: daily. [address] folic acid Yes [id number] Take by Univers (FA-8) 0.8 4-15 mouth. ity of mg Cap 15:51: [address] Magnesium Yes [id number] 500mg Take 500 Univers 250 mg Tab 4-15 mg by ity of 15:51: mouth. [address] aspirin 81 0 Yes 81mg Take 81 mg U nivers mg EC 4-15 by mouth ity of tablet 15:51: daily. [address] CALCIUM Yes Take by Univers CITRATE 4-15 mouth. ity of ORAL 15:51: [address] NIFEdipine Yes Nifedical [place] XL 30 mg 24 4-15 XL 30 mg ity of hr tablet 15:51: [place],ext [place] 38 ended Medical release Branch mirabegron Yes Take by [facility] [place] [facility] ers (MYRBETRIQ) 4-15 mouth ity of 50 mg 15:51: daily. [place] [address] [facility] [place] ramipriL 10 Yes 10mg Take 10 mg [facility] mg capsule 4-15 by mouth ity o f 15:51: daily. [address] folic acid Yes [id number] Take by Univers (FA-8) 0.8 4-15 mouth. ity of mg Cap 15:51: [address] Magnesium Yes [id number] 500mg Take 500 [facility] 250 mg Tab 4-15 mg by ity of 15:51: mouth. [address] aspirin 81 Yes 81mg Take 81 mg U nivers mg EC 4-15 by mouth ity of tablet 15:51: daily. [address] CALCIUM Yes Take by Univers CITRATE 4-15 mouth. ity of ORAL 15:51: [address] NIFEdipine 0 Yes Nifedical [facility] [place] XL 30 mg 24 4-15 XL 30 mg ity of hr tablet 15:51: [place] ended Medical release Branch mirabegron Yes Take by [facility] ers (MYRBETRIQ) 4-15 mouth ity of 50 mg 15:51: daily. [place] tablet [address] [place] [address] ramipriL 10 Yes 10mg Take 10 mg [facility] mg capsule 4-15 by mouth ity o f 15:51: daily. [address] mupirocin 2020- No Intra-op Uni vers (BACTROBAN 12-07 ity of OINT) 2 % 14:46: 17:51 [place] skin 00 :38 Medical ointment Branch bupivacaine 2020- No PRN, Unive rs liposome 12-07 Starting ity of (PF) 14:42: 17:51 [place] (EXPAREL 00 :38 12/07/20 at Medic al (PF)) 1.3 % 0942, Branch (13.3 Until [place] mg/mL) 12/07/20 at injection 1251, Routine, Intra-op sodium 2020- No PRN, Univers chloride 12-07 Starting ity of 0.9 % 14:38: 17:51 [place] irrigation 00 :38 12/07/20 at Med ical solution 0938, Branch Until [place] 12/07/20 at 1251, Intra-op lactated 2020- No 1000mL at 42 [facility] rs ringers IV 4- 04-15 mL/hr, ity of infusion 13:00: 13:27 1,000 mL, [place] as 1,000 mL 00 :00 IV Medical Infusion, Branch ONCE, 1 dose, [place] 12/07/20 at 0800, Routine, DSU Pre-op lactated 2020- No 1000mL at 42 [facility] rs ringers IV - 04-15 mL/hr, ity of infusion 13:00: 13:27 1,000 mL, [place] as 1,000 mL 00 :00 IV Medical Infusion, Branch ONCE, 1 dose, [place] 12/07/20 at 0800, Routine, DSU Pre-op Magnesium Yes [id number] 500mg Take 500 [facility] 250 mg Tab 4-15 mg by ity of 10:51: mouth. [address] aspirin 81 Yes 81mg Take 81 mg U nivers mg EC 4-15 by mouth ity of tablet 10:51: daily. [address] CALCIUM Yes Take by [facility] CITRATE 4-15 mouth. ity of ORAL 10:51: [address] NIFEdipine Yes Nifedical [facility] [place] XL 30 mg 24 4-15 XL 30 mg ity of hr tablet 10:51: [place] ended Medical release Branch mirabegron Yes Take by Univ ers (MYRBETRIQ) 4-15 mouth ity of 50 mg 10:51: daily. [address] ramipriL 10 Yes 10mg Take 10 mg [facility] mg capsule 4-15 by mouth ity o f 10:51: daily. [address] folic acid Yes [id number] Take by [facility] (FA-8) 0.8 4-15 mouth. ity of mg Cap 10:51: [address] Magnesium Yes [id number] 500mg Take 500 [facility] 250 mg Tab 4-15 mg by ity of 10:51: mouth. [address] aspirin 81 Yes 81mg Take 81 mg U nivers mg EC 4-15 by mouth ity of tablet 10:51: daily. [address] CALCIUM Yes Take by [facility] CITRATE 4-15 mouth. ity of ORAL 10:51: [address] NIFEdipine Yes Nifedical [facility] [place] XL 30 mg 24 4-15 XL 30 mg ity of hr tablet 10:51: tablet,[place] ended Medical release Branch ramipriL 10 Yes 10mg Take 10 mg [facility] mg capsule 4-15 by mouth ity o f 10:51: daily. [address] folic acid Yes [id number] Take by Univers (FA-8) 0.8 4-15 mouth. ity of mg Cap 10:51: [address] Magnesium Yes [id number] 500mg Take 500 [facility] 250 mg Tab 4-15 mg by ity of 10:51: mouth. [address] aspirin 81 0 Yes 81mg Take 81 mg U nivers mg EC 4-15 by mouth ity of tablet 10:51: daily. [address] CALCIUM 0 Yes Take by [facility] CITRATE 4-15 mouth. ity of ORAL 10:51: [address] NIFEdipine 2021-0 Yes Nifedical [facility] [place] XL 30 mg 24 4-15 XL 30 mg ity of hr tablet 10:51: tablet,[place] ended [facility] Branch ramipriL 10 Yes 10mg Take 10 mg Univers mg capsule 4-15 by mouth ity o f 10:51: daily. [address] folic acid Yes [id number] Take by Univers (FA-8) 0.8 4-15 mouth. ity of mg Cap 10:51: [address] Magnesium Yes [id number] 500mg Take 500 [facility] 250 mg Tab 4-15 mg by ity of 10:51: mouth. [address] aspirin 81 Yes 81mg Take 81 mg U nivers mg EC 4-15 by mouth ity of tablet 10:51: daily. [address] CALCIUM Yes Take by Univers CITRATE 4-15 mouth. ity of ORAL 10:51: [address] NIFEdipine Yes Nifedical [facility] [place] XL 30 mg 24 4-15 XL 30 mg ity of hr tablet 10:51: [place] ended [facility] ramipriL 10 Yes 10mg Take 10 mg Univers mg capsule 4-15 by mouth ity o f 10:51: daily. [address] folic acid Yes [id number] Take by Univers (FA-8) 0.8 4-15 mouth. ity of mg Cap 10:51: [address] Magnesium Yes [id number] 500mg Take 500 [facility] 250 mg Tab 4-15 mg by ity of 10:51: mouth. [address] aspirin 81 0 Yes 81mg Take 81 mg U nivers mg EC 4-15 by mouth ity of tablet 10:51: daily. [address] CALCIUM 0 Yes Take by [facility] CITRATE 4-15 mouth. ity of ORAL 10:51: [address] NIFEdipine Yes Nifedical [facility] [place] XL 30 mg 24 4-15 XL 30 mg ity of hr tablet 10:51: tablet,ext [place] ended [facility] Branch ramipriL 10 Yes 10mg Take 10 mg [facility] mg capsule 4-15 by mouth ity o f 10:51: daily. [address] folic acid 0 Yes [id number] Take by Univers (FA-8) 0.8 4-15 mouth. ity of mg Cap 10:51: [address] Magnesium 0 Yes [id number] 500mg Take 500 [facility] 250 mg Tab 4-15 mg by ity of 10:51: mouth. [address] aspirin 81 0 Yes 81mg Take 81 mg U nivers mg EC 4-15 by mouth ity of tablet 10:51: daily. [address] CALCIUM 0 Yes Take by [facility] CITRATE 4-15 mouth. ity of ORAL 10:51: [address] NIFEdipine Yes Nifedical [facility] [place] XL 30 mg 24 4-15 XL 30 mg ity of hr tablet 10:51: [place] [address] [place] [address] Medical release Branch mirabegron Yes Take by Univ ers (MYRBETRIQ) 4-15 mouth ity of 50 mg 10:51: daily. [address] ramipriL 10 Yes 10mg Take 10 mg [facility] mg capsule 4-15 by mouth ity o f 10:51: daily. [address] folic acid Yes [id number] Take by Univers (FA-8) 0.8 4-15 mouth. ity of mg Cap 10:51: [address] Magnesium 0 Yes [id number] 500mg Take 500 [facility] 250 mg Tab 4-15 mg by ity of 10:51: mouth. [address] aspirin 81 0 Yes 81mg Take 81 mg U nivers mg EC 4-15 by mouth ity of tablet 10:51: daily. [address] CALCIUM Yes Take by [facility] CITRATE 4-15 mouth. ity of ORAL 10:51: [address] NIFEdipine 0 Yes Nifedical [facility] [place] XL 30 mg 24 4-15 XL 30 mg ity of hr tablet 10:51: tablet,ext [place] 38 [facility] Medical release Branch mirabegron Yes Take by Univ ers (MYRBETRIQ) 4-15 mouth ity of 50 mg 10:51: daily. [address] ramipriL 10 0 Yes 10mg Take 10 mg [facility] mg capsule 4-15 by mouth ity o f 10:51: daily. [address] folic acid Yes [id number] Take by Univers (FA-8) 0.8 4-15 mouth. ity of mg Cap 10:51: [address] Magnesium 2020-0 Yes [id number] 500mg Take 500 [facility] 250 mg Tab 4-14 mg by ity of 16:39: mouth. [address] aspirin 81 Yes 81mg Take 81 mg U nivers mg EC 4-14 by mouth ity of tablet 16:39: daily. [address] CALCIUM Yes Take by [facility] CITRATE 4-14 mouth. ity of ORAL 16:39: [address] NIFEdipine Yes Nifedical [facility] [place] XL 30 mg 24 4-14 XL 30 mg ity of hr tablet 16:39: [place] Medical release Branch SERTraline Yes sertraline U nivers 25 mg 4-14 25 mg ity of tablet 16:39: tablet [address] mirabegron Yes Take by [facility] ers (MYRBETRIQ) 4-14 mouth ity of 50 mg 16:39: daily. [address] Magnesium Yes [id number] 500mg Take 500 Univers 250 mg Tab 4-14 mg by ity of 16:39: mouth. [address] aspirin 81 Yes 81mg Take 81 mg U nivers mg EC 4-14 by mouth ity of tablet 16:39: daily. [address] CALCIUM Yes Take by Univers CITRATE 4-14 mouth. ity of ORAL 16:39: [address] NIFEdipine Yes Nifedical [facility] [place] XL 30 mg 24 4-14 XL 30 mg ity of hr tablet 16:39: [place] ended Medical release Branch SERTraline Yes sertraline U nivers 25 mg 4-14 25 mg ity of tablet 16:39: tablet [address] mirabegron Yes Take by Univ ers (MYRBETRIQ) 4-14 mouth ity of 50 mg 16:39: daily. [address] NIFEdipine Yes Nifedical [facility] [place] XL 30 mg 24 2-11 XL 30 mg ity of hr tablet 21:33: tablet[place] Medical release Branch SERTraline Yes sertraline U nivers 25 mg 2-11 25 mg ity of tablet 21:33: tablet [address] NIFEdipine Yes Nifedical [facility] [place] XL 30 mg 24 2-11 XL 30 mg ity of hr tablet 21:33: tablet[place] Medical release Branch SERTraline Yes sertraline U nivers 25 mg 2-11 25 mg ity of tablet 21:33: tablet [address] NIFEdipine Yes Nifedical [facility] [place] XL 30 mg 24 2-11 XL 30 mg ity of hr tablet 21:33: tablet[place] Medical release Branch SERTraline Yes sertraline U nivers 25 mg 2-11 25 mg ity of tablet 21:33: tablet [address] NIFEdipine Yes Nifedical [facility] [place] XL 30 mg 24 2-11 XL 30 mg ity of hr tablet 21:33: tablet[place] Medical release Branch SERTraline Yes sertraline U nivers 25 mg 2-11 25 mg ity of tablet 21:33: tablet [address] 24 HR 2019-08 Yes 50 mg = 1 [facility] mirabegron 2-30 tab, PO, l 50 MG 15:24: Daily, # [place] Extended 00 30 tab, 0 Release Refill(s), Tablet Pharmacy: [[facility]] [facility] [employer], 160.02, cm, 08/23/20 8:57:00 [employer]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, Height, 60, kg, 08/23/20 8:57:00 [employer]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, Weight 24 HR 2019-08 Yes 50 mg = 1 [facility] mirabegron 2-30 tab, PO, l 50 MG 15:24: Daily, # [place] Extended 00 30 tab, 0 Release Refill(s), Tablet Pharmacy: [[facility]] [facility] [employer], 160.02, cm, 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 May dispose of applicator ., # 43 gm, 3 Refill(s), Pharmacy: [facility], 160.02, cm, 06/14/20 10:46:00 CDT, Height, 60, kg, 06/14/20 10:46:00 CDT, Weight 24 HR 2019-08 Yes 50 mg = 1 [facility] mirabegron 0-21 tab, PO, l 50 MG 16:58: Daily, # [place] Extended 00 30 tab, 0 Release Refill(s), [facility] [employer], 160.02, cm, 06/14/20 10:46:00 CDT, Height, 60, kg, 06/14/20 10:46:00 CDT, Weight Estradiol 2019-08 Yes See Memoria 0.1 MG/ML 0-21 Instructio l Vaginal 16:58: ns, apply Mela nn Cream 00 pea size [Estrace] amount to urethra and vagina 3xweek. May dispose of applicator ., # 43 gm, 3 Refill(s), Pharmacy: [facility], 160.02, cm, 06/14/20 10:46:00 CDT, Height, [...] He rmann 00 30 tab, 3 Refill(s) NIFEdipine 2018-08 Yes 30 mg = 1 [...] ick, Nitrostat) "Do Not Crush" Sublingual tablet Sodium 2018-08 No 750 mL, Memoria Chloride [...] 6:50:00 CDT, Stop date: 06/02/19 6:50:00 CDT Hydralazine 2018-08 No 10 mg, Arturo sony 0 Route: IV, l 11:50: ONCE, [place] 00 Dosing Weight 65.909, kg, Start date: 06/02/19 6:50:00 CDT, Stop date: 06/02/19 6:50:00 CDT oxybutynin 2018-08 Yes 5 mg = 1 Mem oria 5 mg oral 0-09 tab, PO, l tablet, 10:59: QAM, 0 [place] extended 00 Refill(s) release ramipril 2018-08 Yes 10 mg = 1 M emoria mg oral 0-09 cap, PO, l capsule 10:59: BID, 0 [place] 00 Refill(s) [place] 2018-08 Yes 1 tab, PO, Memor ia Calcium 0-09 BID, 0 l with 10:59: Refill(s) [place] Vitamin D 00 Chelated 2018-08 Yes See Memoria Magnesium 0-09 Instructio l 10:59: ns, 250 mg [place] 00 PO QPM, 0 Refill(s) oxybutynin 2018-08 Yes 5 mg = 1 Mem oria 5 mg oral 0-09 tab, PO, l tablet, 10:59: QAM, 0 [place] extended 00 Refill(s) release ramipril 2018-08 Yes 10 mg = 1 M emoria mg oral 0-09 cap, PO, l capsule 10:59: BID, 0 [place] 00 Refill(s) [place] 2018-08 Yes 1 tab, PO, Memor ia Calcium 0-09 BID, 0 l with 10:59: Refill(s) [place] Vitamin D 00 Chelated 2018-08 Yes See Memoria Magnesium 0-09 Instructio l 10:59: ns, 250 mg [place] 00 PO QPM, 0 Refill(s) Bifidobacte Yes 4 mg = 1 Me moria rium 9-11 cap, PO, l [place] 4 19:55: Daily, # Her carrizales MG Oral 00 28 cap, 0 Capsule Refill(s) [Align] azithromyci Yes See Memori a n 250 mg 9-11 Instructio l oral tablet 19:55: ns, Take 2 [place] 00 tablets by mouth the first day then 1 tablet by mouth daily on days 2-5., # 6 tab, 0 Refill(s) Bifidobacte Yes 4 mg = 1 Me moria rium 9-11 cap, PO, l [place] 4 19:55: Daily, # Her carrizales MG Oral 00 28 cap, 0 Capsule Refill(s) [Align] azithromyci Yes See Memori a n 250 mg 9- Instructio l oral tablet 19:55: ns, Take 2 [place] 00 tablets by mouth the first day then 1 tablet by mouth daily on days 2-5., # 6 tab, 0 Refill(s) folic acid Yes [id number] Take by Univers (FA-8) 0.8 8-16 mouth. ity of mg Cap 13:45: [address] Magnesium Yes [id number] 500mg Take 500 Univers 250 mg Tab 8-16 mg by ity of 13:45: mouth. [address] aspirin 81 Yes 81mg Take 81 mg U nivers mg EC 8-16 by mouth ity of tablet 13:45: daily. [address] CALCIUM Yes Take by [facility] CITRATE 8-16 mouth. ity of ORAL 13:45: [address] folic acid Yes [id number] Take by Univers (FA-8) 0.8 8-16 mouth. ity of mg Cap 13:45: [address] Magnesium Yes [id number] 500mg Take 500 [facility] 250 mg Tab 8-16 mg by ity of 13:45: mouth. [address] aspirin 81 Yes 81mg Take 81 mg U nivers mg EC 8-16 by mouth ity of tablet 13:45: daily. [address] CALCIUM Yes Take by [facility] CITRATE 8-16 mouth. ity of ORAL 13:45: [address] folic acid 2018- Yes [id number] Take by Univers (FA-8) 0.8 8-16 mouth. ity of mg Cap 13:45: [address] Magnesium 2018- Yes [id number] 500mg Take 500 Univers 250 mg Tab 8-16 mg by ity of 13:45: mouth. [address] aspirin 81 Yes 81mg Take 81 mg U nivers mg EC 8-16 by mouth ity of tablet 13:45: daily. [address] CALCIUM Yes Take by Univers CITRATE 8-16 mouth. ity of ORAL 13:45: [address] folic acid 2019-0 Yes [id number] Take by Univers (FA-8) 0.8 8-16 mouth. ity of mg Cap 13:45: [address] Magnesium 2019-0 Yes [id number] 500mg Take 500 Univers 250 mg Tab 8-16 mg by ity of 13:45: mouth. [address] aspirin 81 Yes 81mg Take 81 mg U nivers mg EC 8-16 by mouth ity of tablet 13:45: daily. [address] CALCIUM 2019-0 Yes Take by Univers CITRATE 8-16 mouth. ity of ORAL 13:45: [address] folic acid 2018- Yes [id number] Take by Univers (FA-8) 0.8 8-16 mouth. ity of mg Cap 13:45: [address] Magnesium 2018- Yes [id number] 500mg Take 500 Univers 250 mg Tab 8-16 mg by ity of 13:45: mouth. [address] aspirin 81 Yes 81mg Take 81 mg U nivers mg EC 8-16 by mouth ity of tablet 13:45: daily. [address] CALCIUM 2018- Yes Take by Univers CITRATE 8-16 mouth. ity of ORAL 13:45: [address] folic acid 2019- Yes [id number] Take by Univers (FA-8) 0.8 8-16 mouth. ity of mg Cap 13:45: [address] Magnesium 2018- Yes [id number] 500mg Take 500 Univers 250 mg Tab 8-16 mg by ity of 13:45: mouth. [address] aspirin 81 2019- Yes 81mg Take 81 mg U nivers mg EC 8-16 by mouth ity of tablet 13:45: daily. [address] CALCIUM 2018-0 Yes Take by Univers CITRATE 8-16 mouth. ity of ORAL 13:45: [address] folic acid 2019-0 Yes [id number] Take by Univers (FA-8) 0.8 8-16 mouth. ity of mg Cap 13:45: [address] Magnesium 2019-0 Yes [id number] 500mg Take 500 Univers 250 mg Tab 8-16 mg by ity of 13:45: mouth. [address] aspirin 81 2018-0 Yes 81mg Take 81 mg U nivers mg EC 8-16 by mouth ity of tablet 13:45: daily. [address] CALCIUM 2019-0 Yes Take by Univers CITRATE 8-16 mouth. ity of ORAL 13:45: [address] folic acid 2018- Yes [id number] Take by Univers (FA-8) 0.8 8-16 mouth. ity of mg Cap 13:45: [address] Magnesium 2018- Yes [id number] 500mg Take 500 [facility] 250 mg Tab 8-16 mg by ity of 13:45: mouth. [address] aspirin 81 Yes 81mg Take 81 mg U nivers mg EC 8-16 by mouth ity of tablet 13:45: daily. [address] CALCIUM 2018- Yes Take by Univers CITRATE 8-16 mouth. ity of ORAL 13:45: [address] folic acid Yes [id number] Take by Univers (FA-8) 0.8 8-16 mouth. ity of mg Cap 13:45: [address] Magnesium 2018- Yes [id number] 500mg Take 500 [facility] 250 mg Tab 8-16 mg by ity of 13:45: mouth. [address] aspirin 81 Yes 81mg Take 81 mg U nivers mg EC 8-16 by mouth ity of tablet 13:45: daily. [address] CALCIUM 2018- Yes Take by Univers CITRATE 8-16 mouth. ity of ORAL 13:45: [address] folic acid 2018-0 Yes [id number] Take by Univers (FA-8) 0.8 8-16 mouth. ity of mg Cap 13:45: [address] Magnesium 2018- Yes [id number] 500mg Take 500 [facility] 250 mg Tab 8-16 mg by ity of 13:45: mouth. [address] aspirin 81 0 Yes 81mg Take 81 mg U nivers mg EC 8-16 by mouth ity of tablet 13:45: daily. [address] CALCIUM 2018-0 Yes Take by Univers CITRATE 8-16 mouth. ity of ORAL 13:45: [address] folic acid 2018-0 Yes [id number] Take by Univers (FA-8) 0.8 8-16 mouth. ity of mg Cap 13:45: [address] Magnesium 2018- Yes [id number] 500mg Take 500 [facility] 250 mg Tab 8-16 mg by ity of 13:45: mouth. [address] aspirin 81 2019-0 Yes 81mg Take 81 mg U nivers mg EC 8-16 by mouth ity of tablet 13:45: daily. [address] CALCIUM 2019-0 Yes Take by Univers CITRATE 8-16 mouth. ity of ORAL 13:45: [address] folic acid 2019-0 Yes [id number] Take by Univers (FA-8) 0.8 8-16 mouth. ity of mg Cap 13:45: [address] Magnesium 2019-0 Yes [id number] 500mg Take 500 Univers 250 mg Tab 8-16 mg by ity of 13:45: mouth. [address] aspirin 81 2018- Yes 81mg Take 81 mg U nivers mg EC 8-16 by mouth ity of tablet 13:45: daily. [address] CALCIUM 2018-0 Yes Take by Univers CITRATE 8-16 mouth. ity of ORAL 13:45: [address] folic acid 2019- Yes [id number] Take by Univers (FA-8) 0.8 8-16 mouth. ity of mg Cap 13:45: [address] Magnesium 2019- Yes [id number] 500mg Take 500 Univers 250 mg Tab 8-16 mg by ity of 13:45: mouth. [address] aspirin 81 0 Yes 81mg Take 81 mg U nivers mg EC 8-16 by mouth ity of tablet 13:45: daily. [address] CALCIUM 2018- Yes Take by Univers CITRATE 8-16 mouth. ity of ORAL 13:45: [address] folic acid 2019-0 Yes [id number] Take by Univers (FA-8) 0.8 8-16 mouth. ity of mg Cap 13:45: [address] Magnesium 2019-0 Yes [id number] 500mg Take 500 [facility] 250 mg Tab 8-16 mg by ity of 13:45: mouth. [address] aspirin 81 2019-0 Yes 81mg Take 81 mg U nivers mg EC 8-16 by mouth ity of tablet 13:45: daily. [address] CALCIUM 2019-0 Yes Take by Univers CITRATE 8-16 mouth. ity of ORAL 13:45: [address] folic acid 2019-0 Yes [id number] Take by Univers (FA-8) 0.8 8-16 mouth. ity of mg Cap 13:45: [address] folic acid 2019-0 Yes [id number] Take by Univers (FA-8) 0.8 8-16 mouth. ity of mg Cap 13:45: [address] CALCIUM 2017-0 Yes Take by [facility] CITRATE 7-11 mouth. ity of ORAL 18:20: [address] aspirin 81 2017- Yes 81mg Take 81 mg U nivers mg EC 7-11 by mouth ity of tablet 18:20: daily. [address] aspirin 81 2017-0 No Notes: Do Me moria mg tablet, 07 not crush l enteric 15:00: or chew. 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 [place] 00 (Same As: Ecotrin) Sertraline No Notes: Memor ia 3- (Same as: l 15:00: Zoloft) Ramipril No Notes: Memoria 3-07 (Same l 15:00: as:Altace) aspirin 81 No Notes: Do Me moria mg tablet, 10-29 not crush l enteric 15:00: or chew. 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, Duration: 30 day, Stop date: 11/27/16 6:30:00 CDT Ticagrelor No Notes: Memor ia 3-07 (Same as: l 12:00: Brilinta) Ticagrelor No Notes: Memor ia 3-07 (Same as: l 12:00: Brilinta) ticagrelor No Notes: Memor ia 3-07 (Same as: l 04:00: Brilinta) ticagrelor No Notes: Memor ia 3-07 (Same as: l 04:00: Brilinta) Saline No Notes: Memoria Flush 0.9% 3-07 (Same as: l 03:00: BD [place] Posiflush) Brilinta No 60 mg, Memoria 3-07 Route: PO, l 03:00: Drug form: [place] 00 TAB, Q12H, Dosing Weight 64.545, kg, Start date: 10/28/16 21:00:00 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 [place] 00 (Same as: Phenergan) Phenergan No Notes: Do Mem oria -07 not give l 01:52: IV push. [place] 00 (Same as: Phenergan) Hydralazine No Notes: Arturo sony -07 (Same as: l 00:36: Apresoline [place] 00 ) Push over 5 minutes Hydralazine No Notes: Arturo sony -07 (Same as: l 00:36: Apresoline [place] 00 ) Push over 5 minutes Saline No Notes: Memoria Flush 0.9% 10-28 (Same as: l 23:59: BD [place] 00 Posiflush) clopidogrel No 300 mg, Mem oria 10-28 Route: PO, l 23:59: Drug form: [place] 00 TAB, ONCE, Dosing Weight 64.545, kg, Priority: NOW, Start date: 10/28/16 17:59:00 INVENT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, Stop date: 10/28/16 17:59:00 INVENT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 Nitroglycer No Notes: Arturo sony in 10-28 (Same l 23:59: as:Nitroqu [place] 00 ick, Nitrostat) "Do Not Crush" Sublingual tablet Acetaminoph No Notes: Do M emoria en 10-28 not exceed l 23:59: 4 gm/day. 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 [place] 00 (Same as: Tylenol) Sodium No 25 mL, [facility]oria Chloride 10-28 Rate: 20 l 0.154 23:59: ml/hr, [place] MEQ/ML 00 Infuse Injectable over: 1.3 Solution hr, Route: IV, Dosing Weight 64.545 kg, Total Volume: 25, Start date: 10/28/16 17:59:00 INVENT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, Duration: 24 hr, Stop date: 10/29/16 17:58:00 INVENT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 Midodrine No 2.5 mg, Memor ia 10-28 Route: PO, l 23:00: Drug form: [place] 00 TAB, TID, Dosing Weight 64.545, kg, Start date: 10/28/16 17:00:00 INVENT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, Duration: 30 day, Stop date: 11/27/16 13:00:00 CDT oxybutynin No Notes: Memor ia 10-28 Same as: l 23:00: Ditropan) [place] 00 Triamcinolo No Notes: Arturo sony ne 10-28 (Same As: l Acetonide 23:00: Kenalog) Herm angela 0.001 MG/MG 00 Topical Ointment Midodrine No 2.5 mg, Memor ia 10-28 Route: PO, l 23:00: Drug form: [place] 00 TAB, TID, Dosing Weight 64.545, kg, Start date: 10/28/16 17:00:00 INVENT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, Duration: 30 day, Stop date: 11/27/16 13:00:00 CDT oxybutynin No Notes: Memor ia 06 Same as: l 23:00: Ditropan) [place] 00 Triamcinolo No Notes: Arturo sony ne 10-28 (Same As: l Acetonide 23:00: Kenalog) Herm angela 0.001 MG/MG 00 Topical Ointment lansoprazol No Notes: Arturo sony e 10-28 Take 1 l 22:30: hour [place] 00 before or 2 hours after meal; Expires in 14 days. Shake well before use. (Same as:Kaiden olson) Compound ed Product - formulatio n not commercial ly available* * lansoprazol No Notes: Arturo sony e 10-28 Take 1 l 22:30: hour [place] 00 before or 2 hours after meal; Expires in 14 days. Shake well before use. (Same as:Kaiden d) Compound ed Product - formulatio n not commercial ly available* * aspirin 81 2016- Yes 81 mg, PO, M emoria mg tablet, 3-06 Daily, # l enteric 22:09: 120 tab, 0 Herm angela coated 00 Refill(s) ticagrelor 2017-0 Yes 60 mg, PO, M emoria 60 mg oral -06 Q12H, # 60 l tablet 22:09: tab, 0 [place] 00 Refill(s) aspirin 81 2017-0 Yes 81 mg, PO, M emoria mg tablet, 3-06 Daily, # l enteric 22:09: 120 tab, 0 Herm angela coated 00 Refill(s) ticagrelor 2017-0 Yes 60 mg, PO, M emoria 60 mg oral -06 Q12H, # 60 l tablet 22:09: tab, 0 [place] 00 Refill(s) Nitroglycer No 0.4 mg, 1 M emoria in 10-28 tab, l 22:00: Route: SL, Drug form: TAB, Q5Min, Dosing Weight 64.545, kg, PRN Chest Pain, Start date: 10/28/16 16:00:00 INVENT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, Duration: 3 doses or times, Stop date: Limited # of times Sodium 2017-0 No 750 mL, Memoria Chloride 10-28 Rate: 75 l 0.154 22:00: ml/hr, [place] MEQ/ML 00 Infuse Injectable over: 10 Solution hr, Route: IV, Dosing Weight 64.545 kg, Total Volume: 750, Start date: 10/28/16 16:00:00 INVENT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, Duration: 10 hr, Stop date: 10/29/16 1:59:00 INVENT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 Nitroglycer No 0.4 mg, 1 M emoria in 3-06 tab, l 22:00: Route: SL, [place] 00 Drug form: TAB, Q5Min, Dosing Weight 64.545, kg, PRN Chest Pain, Start date: 10/28/16 16:00:00 INVENT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, Duration: 3 doses or times, Stop date: Limited # of times Sodium 2016- No 750 mL, Memoria Chloride 10-28 Rate: 75 l 0.154 22:00: ml/hr, [place] MEQ/ML 00 Infuse Injectable over: 10 Solution hr, Route: IV, Dosing Weight 64.545 kg, Total Volume: 750, Start date: 10/28/16 16:00:00 INVENT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, Duration: 10 hr, Stop date: 10/29/16 1:59:00 INVENT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 ferrous 2017- Yes 325 mg = 1 Arturo sony sulfate 325 3-06 tab, PO, l mg oral 19:32: Daily, # [place] enteric 00 30 tab, 0 coated Refill(s) tablet pantoprazol Yes = 1 Pack, M emoria e 40 MG 3-06 PO, Daily, l Granules 19:32: # 30 ea, 0 Her carrizales [Protonix] 00 Refill(s) ferrous 2017-0 Yes 325 mg = 1 Arturo sony sulfate 325 3-06 tab, PO, l mg oral 19:32: Daily, # [place] enteric 00 30 tab, 0 coated Refill(s) tablet pantoprazol Yes = 1 Pack, M emoria e 40 MG 3-06 PO, Daily, l Granules 19:32: # 30 ea, 0 Her carrizales [Protonix] 00 Refill(s) Sodium 2017-0 No 1,000 mL, Memori a Chloride 3-06 Rate: 75 l 0.154 19:25: ml/hr, [place] MEQ/ML 00 Infuse Injectable over: 13.3 Solution hr, Route: IV, Dosing Weight 64.545 kg, Total Volume: 1,000, Start date: 10/28/16 13:25:00 INVENT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, Duration: 30 day, Stop date: 11/27/16 13:24:00 CDT Sodium 2017-0 No 1,000 mL, Memori a Chloride 3-06 Rate: 75 l 0.154 19:25: ml/hr, [place] MEQ/ML 00 Infuse Injectable over: 13.3 Solution hr, Route: IV, Dosing Weight 64.545 kg, Total Volume: 1,000, Start date: 10/28/16 13:25:00 INVENT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, Duration: 30 day, Stop date: 11/27/16 13:24:00 CDT Sodium 2017-0 No 250 mL, Memoria Chloride 3-06 Rate: 250 l 0.154 19:24: ml/hr, [place] MEQ/ML 00 Infuse Injectable over: 1 Solution hr, Route: IV, Dosing Weight 64.545 kg, Total Volume: 250, Start date: 10/28/16 13:24:00 INVENT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, Duration: 30 day, Stop date: 11/27/16 14:23:00 CDT Sodium 2017-0 No 250 mL, [facility]oria Chloride 3-06 Rate: 250 l 0.154 19:24: ml/hr, [place] MEQ/ML 00 Infuse Injectable over: 1 Solution hr, Route: IV, Dosing Weight 64.545 kg, Total Volume: 250, Start date: 10/28/16 13:24:00 INVENT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, Duration: 30 day, Stop date: 11/27/16 14:23:00 CDT midodrine Yes 2.5 mg = 1 Me moria 2.5 mg oral 04-26 tab, PO, l tablet 16:05: TID, # 90 [place] 00 tab, 0 Refill(s) non-formula Yes 2.5 mg =, M emoria ry 04-26 PO, BID, # l 16:05: 60, [place] 00 Refill(s) 0, MISC midodrine Yes 2.5 mg = 1 Me [...] icone 200-200-20 mg/5ml 30 ml ud TRICIA) Maalox No Notes: Memoria Advanced 04-26 (aluminum l Regular 08:55: hydroxide- Herm angela Strength 00 magnesium SUSP hyd-simeth icone 200-200-20 mg/5ml 30 ml ud TRICIA) Sertraline No Sertraline M emoria 25 mg 04-26 25 mg l tablet 02:00: tablet, [place] 00 0.5 tab, Drug form: MISC, Route: PO, Bedtime, 04/25/16 21:00:00 CDT, Duration: 30 day, Stop date: 05/24/16 21:00:00 CDT Sertraline No Sertraline M emoria 25 mg 04-26 25 mg l tablet 02:00: tablet, [place] 00 0.5 tab, Drug form: MISC, Route: PO, Bedtime, 04/25/16 21:00:00 CDT, Duration: 30 day, Stop date: 05/24/16 21:00:00 CDT potassium No Notes: Memori a chloride 04-25 (Same as: l 14:30: Potassium [place] 00 Chloride) potassium No Notes: Memori a chloride 04-25 (Same as: l 14:30: Potassium [place] 00 Chloride) Mag-Ox 400 No 500 mg, Arturo sony 04-25 Route: PO, l 14:00: Drug form: [place] 00 TAB, Daily, Dosing Weight 68.636, kg, Start date: 04/25/16 9:00:00 CDT, Duration: 30 day, Stop date: 05/24/16 9:00:00 CDT Mag-Ox 400 No 500 mg, Arturo sony 04-25 Route: PO, l 14:00: Drug form: [place] 00 TAB, Daily, Dosing Weight 68.636, kg, Start date: 04/25/16 9:00:00 CDT, Duration: 30 day, Stop date: 05/24/16 9:00:00 CDT Sertraline No Sertraline M emoria 25 mg 04-25 25 mg l tablet 02:00: tablet, [place] 00 0.5 tab, Drug form: MISC, Route: PO, Bedtime, 04/24/16 21:00:00 CDT, Duration: 30 day, Stop date: 05/23/16 21:00:00 CDT Sertraline No Sertraline M emoria 25 mg 04-25 25 mg l tablet 02:00: tablet, [place] 00 0.5 tab, Drug form: MISC, Route: PO, Bedtime, 04/24/16 21:00:00 CDT, Duration: 30 day, Stop date: 05/23/16 21:00:00 CDT oxybutynin 0 No Notes: Memor ia 04-24 Same as: l 22:00: Ditropan) Pindolol No 2.5 mg, Memori a 04-24 Route: PO, l 22:00: Drug form: [place] 00 TAB, BID, Dosing Weight 68.636, kg, Start date: 04/24/16 17:00:00 CDT, Duration: 30 day, Stop date: 05/24/16 9:00:00 CDT oxybutynin 0 No 5 mg, Memori a extended 04-24 Route: PO, l release 22:00: Drug form: Herm angela 00 ERTAB, BID, Dosing Weight 68.636, kg, Start date: 04/24/16 17:00:00 CDT, Duration: 30 day, Stop date: 05/24/16 9:00:00 CDT oxybutynin 2015-0 No Notes: Memor ia 8- Same as: l 22:00: Ditropan) Pindolol 0 No 2.5 mg, Memori a 04-24 Route: PO, l 22:00: Drug form: [place] 00 TAB, BID, Dosing Weight 68.636, kg, Start date: 04/24/16 17:00:00 CDT, Duration: 30 day, Stop date: 05/24/16 9:00:00 CDT oxybutynin No 5 mg, Memori a extended 8-31 Route: PO, l release 22:00: Drug form: [...] Memori a 8-31 (Same l 18:00: as:Proamat [place] 00 ine) pindolol 5 No pindolol 5 M emoria mg tab 8-31 mg tab, l 18:00: 2.5 mg, [place] 00 0.5 tab, Drug form: MISC, Route: PO, BID, 04/24/16 13:00:00 CDT, Duration: 30 day, Stop date: 05/24/16 9:00:00 CDT Midodrine No Notes: Memori a 8-31 (Same l 18:00: as:Proamat [place] 00 ine) bisoprolol No Notes: Memor ia 8-31 (Same As: l 16:30: Zebeta) [place] 00 2.5 mg = 1/2 x 5 mg tab bisoprolol No Notes: Memor ia 8-31 (Same As: l 16:30: Zebeta) [place] 00 2.5 mg = 1/2 x 5 mg tab Keflex No Notes: Memoria 8-31 Take on l 14:00: empty [place] 00 stomach. (Same As: Keflex) Vitamin D3 No Notes: Memor ia 31 Same as : l 14:00: Vitamin D3 Folic Acid No 0.8 mg, 2 Me moria 8 tab, l 14:00: Route: PO, [place] Drug form: TAB, Daily, Dosing Weight 68.636, [...] 04-24 25 mg l tablet 14:00: tablet, 00 0.5 tab, Drug form: MISC, Route: PO, Daily, 04/24/16 9:00:00 CDT, Duration: 30 day, Stop date: 05/23/16 9:00:00 CDT Sertraline No 12.5 mg, Mem oria 04-24 Route: PO, l 14:00: Drug form: [place] 00 TAB, Daily, Dosing Weight 68.636, kg, Start date: 04/24/16 9:00:00 CDT, Duration: 30 day, Stop date: 05/23/16 9:00:00 CDT Potassium No 10 mEq, 1 Mem oria Chloride 10 04-24 tab, l MEQ 14:00: Route: PO, [place] Extended 00 Drug form: Release ERTAB, Tablet Daily, Dosing Weight 68.636, kg, Start date: 04/24/16 9:00:00 CDT, Duration: 30 day, Stop date: 05/23/16 9:00:00 CDT Keflex 0 No Notes: Memoria 8-31 Take on l 14:00: empty stomach. (Same As: Keflex) Vitamin D3 No Notes: Memor ia 04-24 Same as : l 14:00: Vitamin D3 Folic Acid No 0.8 mg, 2 Me moria 04-24 tab, l 14:00: Route: PO, Drug form: TAB, Daily, Dosing Weight 68.636, [...] 04-24 25 mg l tablet 14:00: tablet, 0.5 tab, Drug form: MISC, Route: PO, Daily, 04/24/16 9:00:00 CDT, Duration: 30 day, Stop date: 05/23/16 9:00:00 CDT Sertraline No 12.5 mg, Mem oria 04-24 Route: PO, l 14:00: Drug form: [place] TAB, Daily, Dosing Weight 68.636, kg, Start date: 04/24/16 9:00:00 CDT, Duration: 30 day, Stop date: 05/23/16 9:00:00 CDT Potassium No 10 mEq, 1 Mem oria Chloride 10 04-24 tab, l MEQ 14:00: Route: PO, Drug form: Release ERTAB, Tablet Daily, Dosing Weight 68.636, kg, Start date: 04/24/16 9:00:00 CDT, Duration: 30 day, Stop date: 05/23/16 9:00:00 CDT Mag-Ox 400 No Notes: Memor ia 04-24 (Same as: l 11:53: Mag-Ox 400) Magnesium oxide 218hd=064y g elemental magnesium Dose=____m g magnesium oxide (___mg elemental magnesium) Mag-Ox 400 No Notes: Memor ia 8-31 (Same as: l 11:53: Mag-Ox [place] 00 400) Magnesium oxide 336ts=557p g elemental magnesium Dose=____m g magnesium oxide (___mg elemental magnesium) Hydralazine No Notes: Arturo sony 8-30 (Same as: l 09:51: Apresoline [place] 00 ) Push over 5 minutes Hydralazine No Notes: Arturo sony 8-30 (Same as: l 09:51: Apresoline [place] 00 ) Push over 5 minutes hydrALAZINE No Notes: Arturo sony 8-30 (Same as: l 08:32: Apresoline [place] 00 ) Push over 5 minutes hydrALAZINE No Notes: Arturo sony 8-30 (Same as: l 08:32: Apresoline [place] 00 ) Push over 5 minutes Hydralazine No Notes: Arturo sony 8-30 (Same as: l 08:09: Apresoline ) Push over 5 minutes Hydralazine No Notes: Arturo sony 8-30 (Same as: l 08:09: Apresoline [place] 00 ) Push over 5 minutes Ramipril No Notes: Memoria 8-30 (Same l 07:08: as:Altace) [place] 00 Ramipril No Notes: Memoria 8-30 (Same l 07:08: as:Altace) [place] 00 24 HR No Notes: Memoria Nifedipine 8-30 (Same as: l 30 MG 02:43: Adalat CC, [place] Extended 00 Procardia Release XL) Give Tablet on empty [Procardia] stomach. Take 1 hour before or 2 hours after meal; "Avoid grapefruit and grapefruit juice". Do not crush 24 HR No Notes: Memoria Nifedipine 8-30 (Same as: l 30 MG 02:43: Adalat CC, [place] Extended 00 Procardia Release XL) Give Tablet on empty [Procardia] stomach. Take 1 hour before or 2 hours after meal; "Avoid grapefruit and grapefruit juice". Do not crush Synthroid No Notes: Memori a 8-29 Take 1 l 14:10: hour [place] 00 before or 2 hours after meal; Enteral feeds may interefere with the absorption of this medication . (Same as:Synthro id, Levothroid ) Synthroid No Notes: Memori a 8-29 Take 1 l 14:10: hour [place] 00 before or 2 hours after meal; Enteral feeds may interefere with the absorption of this medication . (Same as:Synthro id, Levothroid ) Aspirin No Notes: (Do Arturo sony 8-29 Not Crush) l 14:00: Do not [place] 00 crush or chew. Aspirin No Notes: (Do Arturo sony 8-29 Not Crush) l 14:00: Do not [place] 00 crush or chew. Thyroxine No Notes: Memori a 8-29 Take 1 l 11:30: hour [place] 00 before or 2 hours after meal; Enteral feeds may interefere with the absorption of this medication . (Same as:Synthro id, Levothroid ) Thyroxine No Notes: Memori a 8-29 Take 1 l 11:30: hour [place] 00 before or 2 hours after meal; Enteral feeds may interefere with the absorption of this medication . (Same as:Synthro id, Levothroid ) heparin No Notes: Memoria 8-29 porcine l 05:00: heparin [place] 00 heparin No Notes: Memoria 8-29 porcine l 05:00: heparin [place] 00 Ramipril No Notes: Memoria 8- (Same l 03:10: as:Altace) [place] 00 Ramipril No Notes: Memoria 8-29 (Same l 03:10: as:Altace) [place] 00 Phenergan No Notes: Memori a 04-22 (Same as: l 02:37: Phenergan) [place] 00 6.25 mg = 1/2 x 12.5 mg TAB Phenergan No Notes: Memori a 8- (Same as: l 02:37: Phenergan) [place] 00 6.25 mg = 1/2 x 12.5 [...] tab, PO, l tablet 02:36: Daily, 0 [place] 00 Refill(s) Cephalexin Yes 500 mg = 1 M emoria 500 MG Oral 8-29 cap, PO, l Capsule 02:36: Daily, # [place] [Keflex] 00 40 cap, 0 Refill(s) sertraline Yes See Memoria 25 mg oral 8-29 Instructio l tablet 02:36: ns, 0.5 [place] 00 tab PO Daily 30 day, 1 Refill(s) Aspirin 325 Yes 325 mg = 1 Memoria MG Oral 8-29 tab, PO, l Tablet 02:36: Daily, # [place] 00 30 tab, 0 Refill(s) potassium Yes 15 mEq = 1 Me moria citrate 15 8-29 tab, PO, l MEQ 02:36: Daily, 0 [place] Extended 00 Refill(s) Release Tablet [Urocit-K] Probiotic [...] mg = 1 Mem oria mg oral 8-29 cap, PO, l capsule 02:36: PRN, # 30 Mela nn 00 cap, 1 Refill(s) Triamcinolo Yes 1 appl, Mem oria ne - TOP, TID, l Acetonide 02:36: # 15 gm, 0 He rmann 0.001 MG/MG 00 Refill(s) Topical Ointment oxybutynin Yes 5 mg = 1 Mem oria 5 mg oral -29 tab, PO, l tablet 02:36: BID, # 60 [place] 00 tab, 1 Refill(s) ramipril Yes 2.5 mg = 1 Mem oria 2.5 mg oral 04-22 cap, PO, l capsule 02:36: Daily, 0 [place] 00 Refill(s) folic acid Yes 0.8 mg = 1 M emoria 0.8 mg oral 04-22 tab, PO, l tablet 02:36: Daily, 0 [place] 00 Refill(s) Cephalexin Yes 500 mg = 1 M emoria 500 MG Oral 04-22 cap, PO, l Capsule 02:36: Daily, # [place] [Keflex] 00 40 cap, 0 Refill(s) sertraline Yes See Memoria 25 mg oral 04-22 Instructio l tablet 02:36: ns, 0.5 [place] 00 tab PO Daily 30 day, 1 Refill(s) Aspirin 325 Yes 325 mg = 1 Memoria MG Oral 04-22 tab, PO, l Tablet 02:36: Daily, # [place] 00 30 tab, 0 Refill(s) potassium Yes [...] l 30 MG 02:36: PRN, # 30 [place] Extended 00 tab, 0 Release Refill(s) Tablet magnesium Yes 500 mg = 1 Me moria oxide 500 -29 tab, PO, l mg oral 02:36: Daily, # [place] tablet 00 10 tab, 0 Refill(s) ramipril 5 No 5 mg = 1 Mem oria mg oral 8-29 cap, PO, l capsule 02:36: PRN, # 30 Mela nn 00 cap, 1 Refill(s) Docusate No Notes: Memoria 04-22 (Same as: l 02:32: Colace) [place] 00 (Do Not Crush) Acetaminoph No Notes: Do M emoria en 04-22 not exceed l 02:32: 4 gm/day. [place] 00 (Same as: Tylenol) Docusate No Notes: Memoria 04-22 (Same as: l 02:32: Colace) [place] (Do Not Crush) Acetaminoph No Notes: Do M emoria en 04-22 not exceed l 02:32: 4 gm/day. (Same as: Tylenol) Vitamin D3 Yes 0 Memoria 8-29 Refill(s) l 01:37: Levothyroxi Yes 75 Memori a ne Sodium 8-29 microgram l 0.075 MG 01:37: = 1 tab, Mela nn Oral Tablet 00 PO, Daily, [Synthroid] 0 Refill(s) oxybutynin No 5 mg = 1 Mem oria 5 mg oral 8-29 tab, PO, l tablet, 01:37: BID, # 30 Mela nn extended 00 tab, 0 release Refill(s) Cephalexin No 500 mg = 1 M emoria 500 MG Oral 8-29 cap, PO, l Capsule 01:37: QID, # 40 Mela nn [Keflex] 00 cap, 0 Refill(s) Vitamin D3 Yes 0 Memoria 8-29 Refill(s) l 01:37: [place] 00 Levothyroxi Yes 75 Memori a ne Sodium 8-29 microgram l 0.075 MG 01:37: = 1 tab, Mela nn Oral Tablet 00 PO, Daily, [Synthroid] 0 Refill(s) oxybutynin No 5 mg = 1 Mem oria 5 mg oral 8-29 tab, PO, l tablet, 01:37: BID, # 30 Mela nn extended 00 tab, 0 release Refill(s) Cephalexin No 500 mg = 1 M emoria 500 MG Oral 8-29 cap, PO, l Capsule 01:37: QID, # 40 Mela nn [Keflex] 00 cap, 0 Refill(s) Magnesium Yes [id number] 500mg Take 500 [facility] 250 mg Tab 3-14 mg by ity of 20:10: mouth. [place] [id number] [facility] cephALEXin Yes Univers (KEFLEX) 1-19 ity [...] 00 Medical hr tablet Branch folic acid Yes [id number] Take by [facility] (FA-8) 0.8 9-28 mouth. ity of mg Cap 17:57: [place] [facility] SERTraline Yes [id number] 12.5mg 12.5 mg. Univers (ZOLOFT) 25 9-23 ity of mg tablet 00:00: [place] 00 [facility] SYNTHROID Yes [id number] Univ ers 75 mcg 9-23 ity of tablet 00:00: [facility] SERTraline Yes [id number] 12.5mg 12.5 mg. Univers (ZOLOFT) 25 9-23 ity of mg tablet 00:00: 00 Medical Branch SYNTHROID Yes [id number] Univ ers 75 mcg 9-23 ity of tablet 00:00: Medical Branch SERTraline Yes [id number] 12.5mg 12.5 mg. Univers (ZOLOFT) 25 9-23 ity of mg tablet 00:00: [place] 00 [facility] SYNTHROID Yes [id number] Univ ers 75 mcg 9-23 ity of tablet 00:00: [facility] SERTraline 2015-0 Yes [id number] 12.5mg 12.5 mg. Univers (ZOLOFT) 25 9-23 ity of mg tablet 00:00: [place] [facility] SYNTHROID 2015-0 Yes [id number] Univ ers 75 mcg 9-23 ity of tablet 00:00: [place] [facility] SERTraline 2015-0 Yes [id number] 12.5mg 12.5 mg. Univers (ZOLOFT) 25 9-23 ity of mg tablet 00:00: [place] [facility] SYNTHROID 2014-0 Yes [id number] Univ ers 75 mcg 9-23 ity of tablet 00:00: [place] [facility] SERTraline 2015-0 Yes [id number] 12.5mg 12.5 mg. Univers (ZOLOFT) 25 9-23 ity of mg tablet 00:00: [place] [facility] SYNTHROID 2014-0 Yes [id number] Univ ers 75 mcg 9-23 ity of tablet 00:00: [place] [facility] SERTraline 2015-0 Yes [id number] 12.5mg 12.5 mg. Univers (ZOLOFT) 25 9-23 ity of mg tablet 00:00: [place] [facility] SYNTHROID 2015-0 Yes [id number] Univ ers 75 mcg 9-23 ity of tablet 00:00: [place] [facility] SERTraline 2015-0 Yes [id number] 12.5mg 12.5 mg. Univers (ZOLOFT) 25 9-23 ity of mg tablet 00:00: [facility] SYNTHROID 2015-0 Yes [id number] Univ ers 75 mcg 9-23 ity of tablet 00:00: [place] [facility] SERTraline 2015-0 Yes [id number] 12.5mg 12.5 mg. Univers (ZOLOFT) 25 9-23 ity of mg tablet 00:00: [place] [facility] SYNTHROID 2014-0 Yes [id number] Univ ers 75 mcg 9-23 ity of tablet 00:00: [place] [facility] SERTraline 2015-0 Yes [id number] 12.5mg 12.5 mg. Univers (ZOLOFT) 25 9-23 ity of mg tablet 00:00: [place] 00 [facility] SYNTHROID 2015-0 Yes [id number] Univ ers 75 mcg 9-23 ity of tablet 00:00: [place] 00 [facility] SERTraline 2015-0 Yes [id number] 12.5mg 12.5 mg. Univers (ZOLOFT) 25 9-23 ity of mg tablet 00:00: [place] 00 [facility] SYNTHROID 2015-0 Yes [id number] Univ ers 75 mcg 9-23 ity of tablet 00:00: [place] 00 [facility] SYNTHROID 2015-0 Yes [id number] Univ ers 75 mcg 9-23 ity of tablet 00:00: [place] 00 [facility] SYNTHROID 2015-0 Yes [id number] Univ ers 75 mcg 9-23 ity of tablet 00:00: [place] [address] [facility] Branch SYNTHROID 2015-0 Yes [id number] Univ ers 75 mcg 9-23 ity of tablet 00:00: [place] [address] [facility] Branch SYNTHROID 2015-0 Yes [id number] Univ ers 75 mcg 9-23 ity of tablet 00:00: [place] [address] [facility] Branch SYNTHROID 2015-0 Yes [id number] Univ ers 75 mcg 9-23 ity of tablet 00:00: [place] [address] [facility] Branch SYNTHROID 2015-0 Yes [id number] Univ ers 75 mcg 9-23 ity of tablet 00:00: [place] [address] [facility] Branch SYNTHROID 2015-0 Yes [id number] Univ ers 75 mcg 9-23 ity of tablet 00:00: [place] [address] [facility] Branch SYNTHROID 2015-0 Yes [id number] Univ ers 75 mcg 9-23 ity of tablet 00:00: [place] [address] [facility] Branch SYNTHROID 2015-0 Yes [id number] Univ ers 75 mcg 9-23 ity of tablet 00:00: [place] 00 [facility] SYNTHROID 2015-0 Yes [id number] Univ ers 75 mcg 9-23 ity of tablet 00:00: [place] 00 [facility] SYNTHROID 2015-0 Yes [id number] Univ ers 75 mcg 9-23 ity of tablet 00:00: [place] 00 [facility] SYNTHROID 2015-0 Yes [id number] Univ ers 75 mcg 9-23 ity of tablet 00:00: [place] 00 [facility] SYNTHROID 2015-0 Yes [id number] Univ ers 75 mcg 9-23 ity of tablet 00:00: [place] [address] [facility] Branch SYNTHROID 2015-0 Yes [id number] Univ ers 75 mcg 9-23 ity of tablet 00:00: [place] 00 [facility] SYNTHROID 2015-0 Yes [id number] Univ ers 75 mcg 9-23 ity of tablet 00:00: [place] [facility] SYNTHROID 2015-0 Yes [id number] Univ ers 75 mcg 9-23 ity of tablet 00:00: [place] [facility] SYNTHROID 2015-0 Yes [id number] Univ ers 75 mcg 9-23 ity of tablet 00:00: [place] [facility] SYNTHROID 2015-0 Yes [id number] Univ ers 75 mcg 9-23 ity of tablet 00:00: [place] [address] [facility] Branch SYNTHROID 2015-0 Yes [id number] Univ ers 75 mcg 9-23 ity of tablet 00:00: [place] [address] [facility] Branch SYNTHROID 2015-0 Yes [id number] Univ ers 75 mcg 9-23 ity of tablet 00:00: [place] [address] [facility] Branch SYNTHROID 2015-0 Yes [id number] Univ ers 75 mcg 9-23 ity of tablet 00:00: [place] [address] [facility] Branch SYNTHROID 2015-0 Yes [id number] Univ ers 75 mcg 9-23 ity of tablet 00:00: [address] Immunizations Ordered Filled Immunization Date Status Comments [facility] e Immunization Name Name BEBTELOVIMAB 2022-03-14 Completed [facility] o f 00:00:00 [facility] BEBTELOVIMAB 2022-03-14 Completed University o f 00:00:00 [facility] BEBTELOVIMAB 2022-03-14 Completed University o f 00:00:00 [facility] SARS-COV-2 COVID-19 2020-11-06 Completed Unive rsity of PFIZER VACCINE 00:00:00 [facility] SARS-COV-2 COVID-19 2020-11-06 Completed Unive rsity of PFIZER VACCINE 00:00:00 [facility] SARS-COV-2 COVID-19 2020-11-06 Completed [facility] of PFIZER VACCINE 00:00:00 [facility] SARS-COV-2 COVID-19 2020-11-06 Completed [facility] of PFIZER VACCINE 00:00:00 [facility] SARS-COV-2 COVID-19 2020-11-06 Completed [facility] of PFIZER VACCINE 00:00:00 [facility] SARS-COV-2 COVID-19 2020-11-06 Completed [facility] of PFIZER VACCINE 00:00:00 [facility] SARS-COV-2 COVID-19 2020-11-06 Completed [facility] of PFIZER VACCINE 00:00:00 [facility] SARS-COV-2 COVID-19 2020-11-06 Completed [facility] of PFIZER VACCINE 00:00:00 [facility] SARS-COV-2 COVID-19 2020-11-06 Completed [facility] of PFIZER VACCINE 00:00:00 [facility] SARS-COV-2 COVID-19 2020-11-06 Completed [facility] of PFIZER VACCINE 00:00:00 [facility] SARS-COV-2 COVID-19 2020-11-06 Completed [facility] of PFIZER VACCINE 00:00:00 [facility] SARS-COV-2 COVID-19 2020-11-06 Completed [facility] of PFIZER VACCINE 00:00:00 [facility] SARS-COV-2 COVID-19 2020-11-06 Completed [facility] PFIZER VACCINE 00:00:00 [facility] SARS-COV-2 COVID-19 2020-11-06 Completed [facility] of PFIZER VACCINE 00:00:00 [facility] SARS-COV-2 COVID-19 2020-11-06 Completed [facility] of PFIZER VACCINE 00:00:00 [facility] SARS-COV-2 COVID-19 2020-11-06 Completed [facility] of PFIZER VACCINE 00:00:00 [facility] SARS-COV-2 COVID-19 2020-11-06 Completed [facility] of PFIZER VACCINE 00:00:00 [facility] SARS-COV-2 COVID-19 2020-11-06 Completed [facility] of PFIZER VACCINE 00:00:00 [facility] SARS-COV-2 COVID-19 2020-11-06 Completed [facility] of PFIZER VACCINE 00:00:00 [facility] SARS-COV-2 COVID-19 2020-11-06 Completed [facility] of PFIZER VACCINE 00:00:00 [facility] SARS-COV-2 COVID-19 2020-10-16 Completed [facility] of PFIZER VACCINE 00:00:00 [facility] SARS-COV-2 COVID-19 2020-10-16 Completed [facility] of PFIZER VACCINE 00:00:00 [facility] SARS-COV-2 COVID-19 2020-10-16 Completed [facility] of PFIZER VACCINE 00:00:00 [facility] SARS-COV-2 COVID-19 2020-10-16 Completed [facility] of PFIZER VACCINE 00:00:00 [facility] SARS-COV-2 COVID-19 2020-10-16 Completed [facility] of PFIZER VACCINE 00:00:00 [facility] SARS-COV-2 COVID-19 2020-10-16 Completed [facility] of PFIZER VACCINE 00:00:00 [facility] SARS-COV-2 COVID-19 2020-10-16 Completed [facility] of PFIZER VACCINE 00:00:00 [facility] SARS-COV-2 COVID-19 2020-10-16 Completed [facility] of PFIZER VACCINE 00:00:00 [facility] SARS-COV-2 COVID-19 2020-10-16 Completed [facility] of PFIZER VACCINE 00:00:00 [facility] SARS-COV-2 COVID-19 2020-10-16 Completed [facility] of PFIZER VACCINE 00:00:00 [facility] SARS-COV-2 COVID-19 2020-10-16 Completed [facility] of PFIZER VACCINE 00:00:00 [facility] SARS-COV-2 COVID-19 2020-10-16 Completed [facility] of PFIZER VACCINE 00:00:00 [facility] SARS-COV-2 COVID-19 2020-10-16 Completed [facility] of PFIZER VACCINE 00:00:00 [facility] SARS-COV-2 COVID-19 2020-10-16 Completed [facility] of PFIZER VACCINE 00:00:00 [facility] SARS-COV-2 COVID-19 2020-10-16 Completed [facility] of PFIZER VACCINE 00:00:00 [facility] SARS-COV-2 COVID-19 2020-10-16 Completed [facility] of PFIZER VACCINE 00:00:00 [facility] SARS-COV-2 COVID-19 2020-10-16 Completed [facility] of PFIZER VACCINE 00:00:00 [facility] SARS-COV-2 COVID-19 2020-10-16 Completed [facility] of PFIZER VACCINE 00:00:00 [facility] SARS-COV-2 COVID-19 2020-10-16 Completed [facility] of PFIZER VACCINE 00:00:00 [facility] SARS-COV-2 COVID-19 2020-10-16 Completed [facility] of PFIZER VACCINE 00:00:00 [facility] Influenza High Dose 2019-06-03 Completed [facility] of 00:00:00 [facility] Influenza High Dose 2019-06-03 Completed [facility] of 00:00:00 [facility] Influenza High Dose 2019-06-03 Completed [facility] of 00:00:00 [facility] Influenza High Dose 2019-06-03 Completed [facility] of 00:00:00 [facility] Influenza High Dose 2019-06-03 Completed [facility] of 00:00:00 [facility] Influenza High Dose 2019-06-03 Completed [facility] of 00:00:00 [facility] Influenza High Dose 2019-06-03 Completed [facility] of 00:00:00 [facility] Influenza High Dose 2019-06-03 Completed [facility] of 00:00:00 [facility] Influenza High Dose 2019-06-03 Completed [facility] of 00:00:00 [facility] Influenza High Dose 2019-06-03 Completed [facility] of 00:00:00 [facility] Influenza High Dose 2019-06-03 Completed [facility] of 00:00:00 [facility] Influenza High Dose 2019-06-03 Completed [facility] of 00:00:00 [facility] Influenza High Dose 2019-06-03 Completed [facility]ive [facility]ity of 00:00:00 [facility] Influenza High Dose 2019-06-03 Completed [facility] of 00:00:00 [facility] Influenza High Dose 2019-06-03 Completed [facility] of 00:00:00 [facility] Influenza High Dose 2019-06-03 Completed [facility]ive [facility]ity of 00:00:00 [facility] Influenza High Dose 2019-06-03 Completed [facility] of 00:00:00 [facility] Influenza High Dose 2019-06-03 Completed [facility] of 00:00:00 [facility] Influenza High Dose 2019-06-03 Completed [facility] of 00:00:00 [facility] Influenza High Dose 2019-06-03 Completed [facility] of 00:00:00 [facility] Influenza High Dose 2019-06-03 Completed [facility] of 00:00:00 [facility] Influenza High Dose 2019-06-03 Completed [facility] of 00:00:00 [facility] Influenza High Dose 2019-06-03 Completed [facility] of 00:00:00 [facility] Influenza High Dose 2019-06-03 Completed [facility] of 00:00:00 [facility] Influenza High Dose 2019-06-03 Completed [facility] of 00:00:00 [facility] Influenza High Dose 2019-06-03 Completed [facility] of 00:00:00 [facility] Influenza High Dose 2019-06-03 Completed [facility] of 00:00:00 [facility] Influenza High Dose 2019-06-03 Completed [facility] of 00:00:00 [facility] Influenza High Dose 2019-06-03 Completed [facility] of 00:00:00 [facility] Influenza High Dose 2019-06-03 Completed [facility] of 00:00:00 [facility] Pneumococcal 13 2018-06-19 Completed [facility] of Conjugate, PCV13 00:00:00 [place] [facility] (Prevnar 13) [facility] Pneumococcal 13 2018-06-19 Completed [facility] of Conjugate, PCV13 00:00:[address] [facility] [place] [facility] (Pre[place]ar 13) [facility] Pneumococcal 13 2018-06-19 Completed [facility] of Conjugate, PCV13 00:00:00 [place] [facility] (Prevnar 13) [facility] Pneumococcal 13 2018-06-19 Completed [facility] of Conjugate, PCV13 00:00:00 [place] [facility] (Prevnar 13) [facility] Pneumococcal 13 2018-06-19 Completed [facility] of Conjugate, PCV13 00:00:00 [place] [facility] (Prevnar 13) [facility] Pneumococcal 13 2018-06-19 Completed [facility] of Conjugate, PCV13 00:00:00 [place] [facility] (Prevnar 13) [facility] Pneumococcal 13 2018-06-19 Completed [facility]it [facility] of Conjugate, PCV13 00:00:[address] [facility] [place] (Pre[place]ar 13) [facility] Pneumococcal 13 2018-06-19 [...] 00:00:00 [place] [facility] (Prevnar 13) [facility] Influenza High Dose 2016-09-03 Completed [facility] of 00:00:00 [facility] Influenza High Dose 2016-09-03 Completed [facility] of 00:00:00 [facility] Influenza High Dose 2016-09-03 Completed [facility] of 00:00:00 [facility] Influenza High Dose 2016-09-03 Completed [facility] of 00:00:00 [facility] Influenza High Dose 2016-09-03 Completed [facility] of 00:00:00 [facility] Influenza High Dose 2016-09-03 Completed [facility] of 00:00:00 [facility] Influenza High Dose 2016-09-03 Completed [facility] of 00:00:00 [facility] Influenza High Dose 2016-09-03 Completed [facility] of 00:00:00 [facility] Influenza High Dose 2016-09-03 Completed [facility] of 00:00:00 [facility] Influenza High Dose 2016-09-03 Completed [facility] of 00:00:00 [facility] Influenza High Dose 2016-09-03 Completed [facility] of 00:00:00 [facility] Influenza High Dose 2016-09-03 Completed [facility] of 00:00:00 [facility] Influenza High Dose 2016-09-03 Completed [facility] of 00:00:00 [facility] Influenza High Dose 2016-09-03 Completed [facility] of 00:00:00 [facility] Influenza High Dose 2016-09-03 Completed [facility] of 00:00:00 [facility] Influenza High Dose 2016-09-03 Completed [facility] of 00:00:00 [facility] Influenza High Dose 2016-09-03 Completed [facility] of 00:00:00 [facility] Influenza High Dose 2016-09-03 Completed [facility] of 00:00:00 [facility] Influenza High Dose 2016-09-03 Completed [facility] of 00:00:00 [facility] Influenza High Dose 2016-09-03 Completed [facility] of 00:00:00 [facility] Influenza High Dose 2016-09-03 Completed [facility] of 00:00:00 [facility] Influenza High Dose 2016-09-03 Completed [facility] of 00:00:00 [facility] Influenza High Dose 2016-09-03 Completed [facility] of 00:00:00 [facility] Influenza High Dose 2016-09-03 Completed [facility] of 00:00:00 [facility] Influenza High Dose 2016-09-03 Completed [facility] of 00:00:00 [facility] Influenza High Dose 2016-09-03 Completed [facility] of 00:00:00 [facility] Influenza High Dose 2016-09-03 Completed [facility] of 00:00:00 [facility] Influenza High Dose 2016-09-03 Completed [facility] of 00:00:00 [facility] Influenza High Dose 2016-09-03 Completed [facility] of 00:00:00 [facility] Influenza High Dose 2016-09-03 Completed [facility] of 00:00:00 [facility] Influenza High Dose 2016-09-03 Completed [facility] of 00:00:00 [facility] Influenza High Dose 2016-09-03 Completed [facility] of 00:00:00 [facility] Influenza High Dose 2016-09-03 Completed [facility] of 00:00:00 [facility] Vital Signs Vital Name Observation Time Observation Value Comments Source Systolic blood 2022-03-14 22:18:00 126 mm[Hg] [facility] of pressure [facility] Diastolic blood 2022-03-14 22:18:00 87 mm[Hg] [facility] of pressure [facility] Heart rate 2022-03-14 22:18:00 49 /min [facility] Body temperature 2022-03-14 22:18:00 36.61 Keira [facility] Respiratory rate 2022-03-14 22:18:00 18 /min [facility] Oxygen saturation in 2022-03-14 22:18:00 94 /min [facility] of Arterial blood by [facility] Pulse oximetry Branch Body height 2022-03-14 21:04:00 160 cm [facility] Body weight 2022-03-14 21:04:00 48.081 kg [facility] BMI 2022-03-14 21:04:00 18.78 kg/m2 [facility] Systolic blood 2022-03-13 22:29:00 178 mm[Hg] [facility] of pressure [facility] Diastolic blood 2022-03-13 22:29:00 76 mm[Hg] [facility] of pressure [facility] Heart rate 2022-03-13 22:23:00 68 /min [facility] Body temperature 2022-03-13 22:23:00 36.61 Keira [facility] Respiratory rate 2022-03-13 22:23:00 19 /min [facility] Body height 2022-03-13 22:23:00 160 cm [facility] Body weight 2022-03-13 22:23:00 48.217 kg [facility] BMI 2022-03-13 22:23:00 18.83 kg/m2 [facility] Oxygen saturation in 2022-03-13 22:23:00 97 /min [facility] Arterial blood by [facility] P[facility] oximetry [facility] Systolic blood 2021-10-25 14:57:00 168 mm[Hg] [facility] of pressure [facility] Diastolic blood 2021-10-25 14:57:00 71 mm[Hg] [facility] of pressure [facility] Heart rate 2021-10-25 14:57:00 73 /min [facility] Body temperature 2021-10-25 14:57:00 36.61 Keira [facility] Respiratory rate 2021-10-25 14:57:00 19 /min [facility] Body height 2021-10-25 14:57:00 160 cm [facility] Body weight 2021-10-25 14:57:00 54.432 kg [facility] BMI 2021-10-25 14:57:00 21.26 kg/m2 [facility] Oxygen saturation in 2021-10-25 14:57:00 98 /min [facility] blood by [place] [employer] [facility] Systolic blood 2021-04-12 14:10:00 160 mm[Hg] [facility] pressure [facility] Diastolic blood 2021-04-12 14:10:00 80 mm[Hg] [facility] of pressure [facility] Heart rate 2021-04-12 14:10:00 74 /min [facility] Body temperature 2021-04-12 14:10:00 37.33 Keira [facility] Respiratory rate 2021-04-12 14:10:00 16 /min [facility] Body height 2021-04-12 14:10:00 157.5 cm [facility] Body weight 2021-04-12 14:10:00 54.432 kg [facility] BMI 2021-04-12 14:10:00 21.95 kg/m2 [facility] Oxygen saturation in 2021-04-12 14:10:00 99 /min [facility] blood by [place] [employer] [facility] Systolic blood 2021-03-30 16:20:00 145 mm[Hg] [facility] pressure [facility] Diastolic blood 2021-03-30 16:20:00 74 mm[Hg] [facility] pressure [facility] Heart rate 2021-03-30 16:20:00 71 /min [facility] Body weight 2021-03-30 16:20:00 54.795 kg [facility] BMI 2021-03-30 16:20:00 21.40 kg/m2 [facility] Oxygen saturation in 2021-03-30 16:20:00 100 /min [facility] by [place] [employer] [facility] Systolic blood 2020-12-07 15:39:00 162 mm[Hg] [facility] pressure [facility] Diastolic blood 2020-12-07 15:39:00 83 mm[Hg] [facility] pressure [facility] Heart rate 2020-12-07 15:39:00 97 /min [facility] Respiratory rate 2020-12-07 15:39:00 26 /min [facility] Oxygen saturation in 2020-12-07 15:39:00 98 /min [facility] Arterial blood by [facility] andrez Pulse oximetry Branch Body temperature 2020-12-07 15:04:00 36.33 Keira [facility] Body height 2020-11-30 18:07:00 160 cm [facility] Body weight 2020-11-30 18:07:00 56.7 kg [facility] BMI 2020-11-30 18:07:00 22.15 kg/m2 [facility] Systolic blood 2020-12-07 15:39:00 162 mm[Hg] [facility] pressure [facility] Diastolic blood 2020-12-07 15:39:00 83 mm[Hg] [facility] pressure [facility] Heart rate 2020-12-07 15:39:00 97 /min [facility] Respiratory rate 2020-12-07 15:39:00 26 /min [facility] Oxygen saturation in 2020-12-07 15:39:00 98 /min [facility] Arterial blood by [facility] andrez Pulse oximetry Branch Body temperature 2020-12-07 15:04:00 36.33 Keira [facility] Body height 2020-11-30 18:07:00 160 cm [facility] Body weight 2020-11-30 18:07:00 56.7 kg [facility] BMI 2020-11-30 18:07:00 22.15 kg/m2 [facility] Systolic blood 2020-03-31 16:34:00 140 mm[Hg] [facility] pressure [facility] Diastolic blood 2020-03-31 16:34:00 80 mm[Hg] [facility] pressure [facility] Heart rate 2020-03-31 16:34:00 82 /min [facility] Respiratory rate 2020-03-31 16:34:00 16 /min [facility] Body height 2020-03-31 16:34:00 157.5 cm [facility] Body weight 2020-03-31 16:34:00 62.415 kg [facility] BMI 2020-03-31 16:34:00 25.17 kg/m2 [facility] Systolic blood 2020-03-31 16:34:00 140 mm[Hg] [facility] pressure [facility] Diastolic blood 2020-03-31 16:34:00 80 mm[Hg] [facility] pressure [facility] Heart rate 2020-03-31 16:34:00 82 /min [facility] Respiratory rate 2020-03-31 16:34:00 16 /min [facility] Body height 2020-03-31 16:34:00 157.5 cm [facility] Body weight 2020-03-31 16:34:00 62.415 kg [facility] BMI 2020-03-31 16:34:00 25.17 kg/m2 [facility] Systolic blood 2019-10-15 17:38:00 135 mm[Hg] [facility] pressure [facility] Diastolic blood 2019-10-15 17:38:00 78 mm[Hg] [facility] pressure [facility] Heart rate 2019-10-15 17:38:00 74 /min [facility] Respiratory rate 2019-10-15 17:38:00 18 /min [facility] Body height 2019-10-15 17:38:00 160 cm [facility] Body weight 2019-10-15 17:38:00 65.772 kg [facility] BMI 2019-10-15 17:38:00 25.69 kg/m2 [facility] Systolic blood 2019-04-09 13:42:00 144 mm[Hg] [facility] pressure [facility] Diastolic blood 2019-04-09 13:42:00 82 mm[Hg] [facility] of pressure [facility] Heart rate 2019-04-09 13:42:00 70 /min [facility] Respiratory rate 2019-04-09 13:42:00 16 /min [facility] Body height 2019-04-09 13:42:00 160 cm [facility] Body weight 2019-04-09 13:42:00 63.957 kg [facility] BMI 2019-04-09 13:42:00 24.98 kg/m2 [facility] Height 2020-08-23 14:57:00 160.02 cm [facility] Weight 2020-08-23 14:57:00 [facility] BMI Calculated 2020-08-23 14:57:00 [facility] Systolic (mm Hg) 2020-06-14 15:46:00 [facility] Diastolic (mm Hg) 2020-06-14 15:46:00 [facility] [place] Heart Rate 2020-06-14 15:46:00 [facility] Height 2020-06-14 15:46:00 160.02 cm [facility] Weight 2020-06-14 15:46:00 [facility] BMI Calculated 2020-06-14 15:46:00 [facility] [place] Systolic (mm Hg) 2019-06-02 17:15:00 [facility] Diastolic (mm Hg) 2019-06-02 17:15:00 [facility] Systolic (mm Hg) 2019-06-02 16:40:00 [facility] [place] Diastolic (mm Hg) 2019-06-02 16:40:00 [facility] [place] Systolic (mm Hg) 2019-06-02 16:10:00 [facility] [place] Diastolic (mm Hg) 2019-06-02 16:10:00 [facility] [place] Temperature Oral (F) 2019-06-02 11:36:00 98.4 F [facility] Height 2019-06-02 10:43:00 157.48 cm [facility] Weight 2019-06-02 10:43:00 [facility] BMI Calculated 2019-06-02 10:43:00 [facility] Systolic (mm Hg) 2019-05-05 19:46:00 [facility] Diastolic (mm Hg) 2019-05-05 19:46:00 [facility] [place] Heart Rate 2019-05-05 19:46:00 [facility] Respitory Rate 2019-05-05 19:46:00 [facility] Height 2019-05-05 19:46:00 152.4 cm [facility] Weight 2019-05-05 19:46:00 [facility] BMI Calculated 2019-05-05 19:46:00 [facility] [place] Systolic (mm Hg) 2016-10-29 13:36:00 [facility] [place] Diastolic (mm Hg) 2016-10-29 13:36:00 [facility] [place] Systolic (mm Hg) 2016-10-29 10:30:00 [facility] [place] Diastolic (mm Hg) 2016-10-29 10:30:00 [facility] Systolic (mm Hg) 2016-10-29 08:30:00 [facility] Diastolic (mm Hg) 2016-10-29 08:30:00 [facility] Temperature Oral (F) 2016-10-29 05:00:00 96.6 F [facility] Temperature Oral (F) 2016-10-28 18:45:00 97.0 F [facility] Respitory Rate 2016-10-28 18:45:00 [facility] BMI Calculated 2016-10-28 18:23:00 [facility] Weight 2016-10-28 18:23:00 [facility] Height 2016-10-28 18:23:00 160.02 cm [facility] Systolic (mm Hg) 2016-04-26 20:27:00 [facility] [place] Diastolic (mm Hg) 2016-04-26 20:27:00 [facility] Heart Rate 2016-04-26 20:27:00 [facility] Temperature Oral (F) 2016-04-26 20:27:00 98.4 F [facility] Respitory Rate 2016-04-26 20:27:00 [facility] Systolic (mm Hg) 2016-04-26 16:51:00 [facility] [place] Diastolic (mm Hg) 2016-04-26 16:51:00 [facility] [place] Respitory Rate 2016-04-26 16:51:00 [facility] [place] Temperature Oral (F) 2016-04-26 16:51:00 98.4 F [facility] Heart Rate 2016-04-26 16:51:00 [facility] Diastolic (mm Hg) 2016-04-26 13:02:00 Alesia Martines Systolic (mm Hg) 2016-04-26 13:02:00 Arturo Martines Heart Rate 2016-04-26 13:02:00 Alli Martines Respitory Rate 2016-04-26 13:00:00 Shonda Winter Temperature Oral (F) 2016-04-26 13:00:00 98.1 F Alli Martines BMI Calculated 2016-04-22 01:09:00 Shonda Winter Weight 2016-04-22 01:09:00 [facility] Height 2016-04-22 01:09:00 160.02 cm [facility] Procedures Procedure Date / Time Performing Source Performed Clinician EXTERNAL PROVIDER RECORDS 2022-03-29 Doctor Unassigned, [facility] 05:01:00 [facility] CONSENT/REFUSAL FOR DIAGNOSIS 2022-03-14 Doctor Unassigned, [facility] AND TREATMENT 05:01:00 [facility] POCT SARS-COV-2 ANTIGEN 2022-03-13 Reena Beverly [facility] (BINAX NOW) 22:30:00 [facility] DEXA PERIPHERAL (FOREARM) 2022-02-27 Yusuf Gibbons [facility] 19:53:36 [facility] DEXA AXIAL (HIP AND SPINE) 2022-02-27 Yusuf Gibbons [facility] 19:53:36 [facility] ASSIGNMENT OF BENEFITS 2021-10-25 Doctor Unasscarlee, [facility] 14:47:18 [facility] [id number] 2021-09-18 [facility]AAER [facility] [id number] 2021-09-18 HAAER [facility] 00:00:00 [facility] [id number] 2021-09-18 HAAER [facility] 00:00:00 [facility] [id number] 2021-09-18 HAAER [facility] 00:00:00 [facility] [id number] 2021-09-18 HAAER [facility] 00:00:00 [facility] GASTROINTESTINAL PANEL 2021-08-16 [facility] 20:00:00 Neida Amezquita AUTHORIZATION FOR RELEASE OF 2021-01-02 Doctor Unasscarlee, [facility] PHI 05:01:00 [facility] AUTHORIZATION FOR RELEASE OF 2020-12-08 Doctor Unassigned, [facility] PHI 05:01:00 [facility] RECTAL MASS EXCISION 2020-12-07 [facility] 13:43:00 [facility] PROCTOSIGMOIDOSCOPY 2020-12-07 Dereje [facility] 13:43:00 [facility] EXAM UNDER ANESTHESIA 2020-12-07 [facility] 13:43:00 [facility] DAY SURGERY - ADC 2020-12-07 Doctor Unassigned, [facility] 05:01:00 [facility] XR CHEST 2 VW 2020-12-06 [facility] 14:03:00 [facility] DSU PRE-OP 2020-12-06 Doctor Unassigned, [facility] 05:01:00 [facility] DSU PRE-OP 2020-11-29 Doctor Unassigned, [facility] 05:01:00 [facility] DSU PRE-OP 2020-11-29 Doctor Unassigned, [facility] 05:01:00 [facility] DSU PRE-OP 2020-11-27 Doctor Unassigned, [facility] 05:01:00 [facility] DSU PRE-OP 2020-11-27 Doctor Unassigned, [facility] 05:01:00 [facility] XR CHEST 2 VW 2020[facility]10-[facility] 15:27:41 [facility] DEXA PERIPHERAL (FOREARM) 2020-04-11 Yusuf Gibbons [facility] 15:15:04 Medical [facility] DEXA AXIAL (HIP AND SPINE) 2020-04-11 Yusuf Gibbons [facility] 15:13:34 [facility] ASSIGNMENT OF BENEFITS 2020-04-11 Doctor Chel, [facility] 14:16:11 [facility] DEXA AXIAL (HIP AND SPINE) 2019-04-14 Yusuf Gibbons [facility] 16:36:12 [facility] CONSENT/REFUSAL FOR DIAGNOSIS 2019-04-14 Doctor Romeroigned, [facility] T[facility]MENT 16:01:26 [facility] ASSIGNMENT OF BENEFITS 2019-04-14 Doctor Chel, [facility] 16:00:59 [facility] ASSIGNMENT OF BENEFITS 2019-04-09 Doctor Unassigned, [facility] 13:24:09 [facility] 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 Martines prosthesis<sup>1</sup> Placement of stent in cardiac Me morial [place] conduit Plan of Care Planned Activity Planned Date Details Comments Source Future Scheduled 2022-04-12 SHINGLES VACCINES (1 Met [facility] Test 01:52:51 of 2) [code = SHINGLES VACCINES (1 of 2)] Future Scheduled 2022-04-12 65+ P[facility]OCOCCAL [facility] Test 01:52:51 VACCINE (2 - PPSV23 or PCV20) [code = 65+ PNEUMOCOCCAL VACCINE (2 - PPSV23 or PCV20)] Future Scheduled 2022-04-12 COVID-19 VACCINE (4 - [facility] Test 01:52:51 Booster for Pfizer series) [code = COVID-19 VACCINE (4 - Booster for Pfizer series)] Future Scheduled 2022-04-12 INFLUENZA VACCINE [facility] Test 01:52:51 [code = INFLUENZA VACCINE] Future Scheduled 2022-04-12 HEPATITIS B VACCINES Met [facility] Test 01:52:51 (1 of 3 - 3-dose series) [code = HEPATITIS B VACCINES (1 of 3 - 3-dose series)] Encounters Start End Encounter Admission Attending Care Care Encounter Source Date/Time Date/Time Type Type Clinicians Facility Department ID 2022-05-03 Inpatient VINCENZO Haro [facility] DAYS [id number] [facility] 10:30:[address] 2021-06-24 Outpatient Jeovany REYEZ MNADONIS CHANTE [id number] Univers 10:58:25 RIKI [facility] 2021-06-23 Outpatient Jeovany REYEZ MNADONIS CHANTE [id number] Univers 23:07:21 RIKI [facility] 2023-04-04 2023-04-04 Outpatient Jeovany GIBBONS [facility] [id number] [id number] Univers 11:30:00 11:30:00 YUSUF [id number] [facility] 2023-04-04 2023-04-04 Outpatient Jeovany GIBBONS [facility] [id number] Univers 11:30:00 11:30:00 YUSUF [facility] 2023-02-24 2023-02-24 Outpatient R CHARLEEN [facility] [id number] [id number]-20 Univers 11:30:00 11:30:00 YUSUF [id number] [facility] 2022-10-31 2022-10-31 Outpatient R [facility] [id number] -20 Univers 11:00:00 11:00:00 [id number] [facility] 2022-10-31 2022-10-31 [facility] [id number] Univers 11:00:00 11:00:00 YUSUF [facility] 2022-04-30 2022-04-30 Outpatient R [facility] [id number] -[id number] Univers 13:00:00 13:00:00 [id number] [facility] 2022-04-30 2022-04-30 [facility] [id number] Univers 13:00:00 13:00:00 YUSUF [facility] 2022-04-11 2022-04-11 Out[facility] [id number] Univers 11:00:00 11:00:00 YUSUF [facility] 2022-04-05 2022-04-05 Out[facility] [id number] Univers 11:30:00 12:40:58 [facility] 2022-04-05 2022-04-05 Out[facility] [id number] [id number]-20 Univers 11:30:00 11:30:00 YUSUF [id number] [facility] 2022-03-29 2022-03-29 Orders Doctor DEIRDRE 1.2.840.114 [id number] Univers 00:00:00 00:00:00 Only Unassigned, VELVET 350.1.13.10 it[place] [facility] 4.2.7.2.686 Laurent as [phone] [address] 2022-03-14 2022-03-14 Nurse Therapy, Adc Covid Infusion [facility] 1.2.840.114 [id number] Univers 16:00:00 17:00:00 Visit Ivan Fuentes 350.1.13.10 ity of [place] [id number] [facility] [address] 2022-03-14 2022-03-14 Outpatient R TYSON [facility] [id number] -20 Univers 16:00:00 16:00:00 IVAN [id number] ity [facility] 2022-03-14 2022-03-14 Outpatient Jeovany FUENTES [facility] [id number] Univers 16:00:00 16:00:[address] [facility] 2022-03-14 2022-03-14 Orders Doctor DEIRDRE 1.2.840.114 [id number] Univers 00:00:00 00:00:00 Only Unassigned, VELVET 350.1.13.10 [facility] 4.2.7.2.686 Laurent as [phone] [address] 2022-03-13 2022-03-13 [facility] [id number] Univers 17:00:00 17:53:42 REENA swift [facility] 2022-03-13 2022-03-13 Urgent Deirdre Bowie [facility] 1.2.840.114 [id number] Univers 17:00:00 17:20:00 [facility] 350.1.13.10 ity of [place] 4.2.7.2.686 Laurent as [place] [phone] [address] MEDICAL OFFICE BUILDING 2022-03-13 2022-03-13 Outpatient R [facility] [id number] -[id number] Univers 17:00:00 17:00:00 [id number] ity [facility] 2022-03-13 2022-03-13 Out[facility] [id number] Univers 17:00:00 17:00:00 REENA swift [facility] 2022-02-27 2022-02-27 Outpatient R [facility] [id number] Univers 14:16:04 23:59:00 YUSUF vines [facility] 2022-02-27 2022-02-27 Damaris Sandersney, [facility] 1.2.840.114 [id number] Univers 14:15:00 23:59:00 Encounter Yusuf MACIEL 350.1.13.10 ity [facility] 4.2.7.2.686 [facility] [id number] [facility] [address] 2022-02-27 2022-02-27 Outpatient [facility] [id number] 7N-20 Univers 00:00:00 00:00:00 YUSUF [id number] ity [facility] 2021-10-25 2021-10-25 Nurse 1, Adc Infusion Nurse [facility] 1.2. 840.114 [id number] Univers 09:00:00 09:15:00 Visit Yusuf Gibbons 350.1.13.10 ity [facility] 4.2.7.2.686 [facility] [phone] [place] [address] [place] 2021-10-25 2021-10-25 Outpatient R [facility] [id number] -[id number] Univers 09:00:00 09:00:00 [id number] ity [facility] 2021-10-25 2021-10-25 Outpatient [facility] [id number] Univers 09:00:00 09:00:00 YUSUF [facility] 2021-10-25 2021-10-25 Orders Doctor DEIRDRE 1.2.840.114 [id number] Univers 00:00:00 00:00:00 Only Unassigned, VELVET 350.1.13.10 it[place] of [place] [facility] 4.2.7.2.686 Laurent [id number] [facility] [address] 2021-10-19 2021-10-19 Outpatient R [facility] [id number] -[id number] Univers 12:00:00 12:00:00 [id number] ity [facility] 2021-10-11 2021-10-11 Outpatient R [facility] [id number] -[id number] Univers 09:30:00 09:30:00 [id number] ity [facility] 2021-10-11 2021-10-11 Outpatient [facility] [id number] Univers 09:30:00 09:30:00 YUSUF vines of [facility] 2021-09-18 2021-09-21 Inpatient Iván Root [facility] MEDI.01 BP174 [id number]- [facility] 00:40:00 18:15:00 [id number] [place] [facility] are [facility] 2021-09-18 2021-09-21 Inpatient Iván Root [facility].01 GS409 [id number] [facility] 00:40:00 18:15:00 [facility] are [facility] 2021-09-18 2021-09-18 Outpatient [facility]17 [id number]- [facility] 18:46:00 18:46:00 [id number] [place] [facility] are [facility] 2021-09-14 2021-09-14 Outpatient Iván Root [facility] 3DAY BP17 [id number]- [facility] 00:00:00 23:59:[id number] [facility] 2021-09-14 2021-09-14 Outpatient UNKNOWN HCACL LABO [id number] [facility] 17:46:00 17:46:00 [id number] [facility] 2021-08-16 2021-08-16 Lab Neida Blank 1. 2.840.1 [id number] Methodi 14:00:00 14:05:00 Iván Cowan Moises 03041.1.1 448 3.430.2.7 Hospit a .3.369213 l .8 2021-08-16 2021-08-16 Outpatient [facility] [id number] [place] 00:00:00 00:00:00 MY, 448 Method i [facility] 2021-08-15 2021-08-15 Orders Edward 1.2.840.1 [id number] Methodi 00:00:00 00:00:00 Only jeff, 37611.1.[address] [place] 3.430.2.7 Hospi carmina Amezquita .3.709894 l .8 2021-04-13 2021-04-13 Outpatient Jeovany CASTREJON [facility] [id number] -20 Univers 09:30:00 09:30:00 MEAGHAN [id number] ity [facility] 2021-04-12 2021-04-12 Outpatient R [facility] [id number] -[id number] Univers 09:30:00 09:30:00 [id number] [facility] 2021-04-12 2021-04-12 Outpatient R GIBBONS, [facility] [id number] Univers 09:30:00 09:30:00 YUSUF [facility] 2021-04-12 2021-04-12 Nurse 1, Adc Infusion Nurse [facility] 1.2. 840.114 [id number] Univers 09:09:47 09:24:47 Visit Yusuf Gibbons 350.1.13.10 it[place] maycol [place].2.[place] [id number] [place] [id number] [place] 2021-04-06 2021-04-06 Outpatient [facility] [id number] 7N-20 Univers 10:00:00 10:00:00 YUSUF [id number] [facility] 2021-04-06 2021-04-06 Outpatient [facility] [id number] Univers 10:00:00 10:00:00 YUSUF [facility] 2021-03-30 2021-03-30 Office Yusuf Gibbons [facility] 1.2.840. 114 [id number] Univers 11:03:18 12:12:59 Visit Meaghan Castrejon 350.1.13.10 it[place] [id number] [place]ical nal [address] [facility] 2021-03-30 2021-03-30 Outpatient [facility] [id number] -[id number] Univers 11:00:00 11:00:00 MEAGHAN [id number] [facility] 2021-03-30 2021-03-30 Outpatient [facility] [id number] Univers 11:00:00 11:00:00 MEAGHAN [facility] 2021-01-02 2021-01-02 Orders Doctor GILMORE 1.2.840.114 [id number] Univers 00:00:00 00:00:00 Only Unassigned, VELVET 350.1.13.10 it[place] of [place] HOSPITAL 4.2.7.2.686 Laurent as [id number] [address] 2020-12-19 2020-12-19 [facility] 1.2.840.114 [id number] Univers 00:00:00 00:00:00 Yusuf Maciel 350.1.13.10 i [place] of [place] [phone] [place] dical [facility] 220 [facility] 2020-12-08 2020-12-08 Orders Doctor DEIRDRE 1.2.840.114 [id number] Univers 00:00:00 00:00:00 Only Unassigned, VELVET 350.1.13.10 it[place] of [place] HOSPITAL 4.2.7.2.686 Laurent as [id number] [address] 2020-12-07 2020-12-[address] [facility] 1.2.212.823 [id number] Univers 09:00:00 11:18:00 Riki Maciel 350.1.13.10 i [place] [id number] [facility] 0[address] [place] 2020-12-07 2020-12-[address] [facility] 1.2.840.114 [id number] Univers 07:58:00 10:51:00 Encounter Riki Maciel 350.1.13.10 [place] [id number] [facility] 071 [place] 2020-12-07 2020-12-07 Orders Doctor DEIRDRE 1.2.840.114 [id number] Univers 00:00:00 00:00:00 Only Unassigned, VELVET 350.1.13.10 it[place] of [place] HOSPITAL 4.2.7.2.686 Laurent as [id number] [address] 2020-12-06 2020-12-06 Laboratory Only, Adc Test [facility] 1.2.840. 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 Main [facility] 1.2.8 40.114 [id number] Univers 08:49:30 09:04:30 Visit Riki Reyez [place] 350.1.13.10 ity of [place] 4.2.7.2.686 [facility] Profess[facility] [phone] [place] dical [facility] [address] [facility] 2020-12-06 2020-12-06 Hospital Dereje [facility] 1.2.840.114 [id number] Univers 08:45:00 08:46:00 Encounter Riki Maciel 350.1.13.10 ity of [place] 4.2.7.2.686 [facility] [id number] [facility] [address] 2020-12-06 2020-12-06 Outpatient R [facility] [id number] -[id number] Univers 08:15:00 08:15:00 [id number] ity [facility] 2020-12-06 2020-12-06 Outpatient R DEREJE [facility] [id number] Univers 08:15:00 08:15:00 RIKI [facility] 2020-12-06 2020-12-06 Orders Doctor GILMORE 1.2.840.114 [id number] Univers 00:00:00 00:00:00 Only Unassigned, VELVET 350.1.13.10 ity of [place] [facility] 4.2.7.2.686 Laurent [id number] [facility] [address] 2020-11-06 2020-11-06 Outpatient R RIVER [facility] [id number] [id number] Univers 15:30:00 15:30:00 AIYANA [id number] [facility] 2020-11-06 2020-11-06 Outpatient R RIVER [facility] [id number] Univers 15:30:00 15:30:[address] [facility] 2020-10-16 2020-10-16 Outpatient R RIVER [facility] [id number] Univers 16:10:00 16:10:00 AIYANA [id number] [facility] 2020-10-16 2020-10-16 Outpatient R RIVER, [facility] [id number] Univers 16:10:00 16:10:00 AIYANA [facility] 2020-10-06 2020-10-06 [facility] 1.2.840.114 [id number] Univers 08:54:38 23:59:00 Encounter Riki Maciel 350.1.13.10 [facility] 4.2.7.2.686 [facility] [id number] [facility] [address] [place] 2020-10-06 2020-10-06 Outpatient R DEREJE [facility] [id number] Univers 08:45:00 08:45:00 RIKI [facility] 2020-10-06 2020-10-06 Laboratory Only, Adc Test [facility] 1.2.840. 114 [id number] Univers 08:28:29 08:43:29 Only Riki Reyez 350.1.13.10 [facility] 4.2.7.2.686 [facility] [id number] [facility] [address] 2020-10-06 2020-10-06 Outpatient R [facility] [id number] Univers 08:30:00 08:30:00 [id number] [facility] 2020-09-17 2020-09-17 Patient Sixto [facility] 1.2.840.114 [id number] Univers 00:00:00 00:00:00 Outreach Nathanael GLEASON 350.1.13.10 i ty of [facility] 4.2.7.2.686 [facility] [id number] Wa dical [address] [place] 2020-08-30 2020-08-30 Ambulatory nullFlavo [facility] 35 [id number] Memoria 15:00:00 15:00:00 Pre-Reg r Specialty 04 l Clinic [facility] 2020-08-30 2020-08-30 Ambulatory nullFlavo [facility] 35 [id number] Memoria 15:00:00 15:00:00 Pre-Reg r Specialty 04 l Clinic [facility] 2020-08-30 2020-08-30 Outpatient Staller, [facility] MG [id number] 09:00:00 09:00:00 Mandie L 04 2020-08-23 2020-08-24 Outpatient nullFlavo [facility] 35 [id number] Memoria 15:00:00 05:59:59 r Specialty 05 l [facility] 2020-08-23 2020-08-24 Outpatient nullFlavo MG Multi 35 [id number] Memoria 15:00:00 05:59:59 r Specialty 05 l [facility] 2020-08-23 2020-08-23 Outpatient Staller, [facility] MG [id number] 09:00:00 23:59:59 Mandie L 05 2020-08-23 2020-08-23 Outpatient MHIE MHIE [id number] Memoria 09:00:00 09:00:00 05 l [place] 2020-07-26 2020-07-26 Outpatient MHIE MHIE [id number] Memoria 11:00:00 11:00:00 04 [facility] 2020-06-14 2020-06-15 Outpatient nullFlavo MG Multi 35 [id number] Memoria 16:00:00 04:59:59 r Specialty 03 l [facility] 2020-06-14 2020-06-15 Outpatient nullFlavo MG Multi 35 [id number] Memoria 16:00:00 04:59:59 r Specialty 03 l [facility] 2020-06-14 2020-06-14 Outpatient Staller, [facility] MG [id number] 11:00:00 23:59:59 Mandie L 03 2020-06-14 2020-06-14 Outpatient MHIE MHIE [id number] Memoria 11:00:00 11:00:00 03 [facility] 2020-04-11 2020-04-11 [facility] 1.2.840 .114 [id number] 09:20:00 23:59:00 Encounter Radiology [place] 350.1.13.10 [place] 4.2.7.2.686 [place] [id number] 800 2020-04-11 2020-04-11 [facility] 1.2.840 .114 [id number] Univers 09:20:00 23:59:00 Encounter Radiology Lilli 350.1.13.10 ity of [place] 4.2.7.2.686 [facility] [id number] [address] 2020-04-11 2020-04-11 [facility] 1.2.840.114 [id number] 09:00:00 09:19:00 Encounter Yusuf Maciel 350.1.13.10 [place] 4.2.7.2.686 [place] [id number] [facility] 2020-04-11 2020-04-11 [facility] 1.2.840.114 [id number] Univers 09:00:00 09:19:00 Encounter Yusuf Maciel 350.1.13.10 ity of [place] 4.2.7.2.686 [facility] [id number] [address] 2020-04-11 2020-04-11 Outpatient R [facility] [id number] [id number]-20 Univers 09:00:00 09:00:00 YUSUF [id number] itirene [facility] 2020-04-11 2020-04-11 Outpatient R [facility] [id number] Univers 00:00:00 00:00:00 YUSUF vines [facility] 2020-04-11 2020-04-11 Orders Doctor DEIRDRE 1.2.840.114 [id number] 00:00:00 00:00:00 Only Unassigned, [place]ELVET 350.1.13.10 [place] [address].2.7.2.686 [id number] 009 2020-04-11 2020-04-11 Orders Doctor GILMORE 1.2.840.114 [id number] Univers 00:00:00 00:00:00 Only Unassigned, VELVET 350.1.13.10 ity of [place] [facility] 4.2.7.2.686 Laurent [id number] [address] 2020-03-31 2020-03-31 [facility] 1.2.063.070 [id number] 11:28:01 12:47:12 Visit Yusuf Maciel 350.1.13.10 [place] 4.2.7.2.686 Professio [id number] [address] 2020-03-31 2020-03-31 Office [facility] 1.2.606.075 [id number] Univers 11:28:01 12:47:12 Visit Yusuf Maciel 350.1.13.10 i ty [place] [phone] Wa dical [address] 2020-03-31 2020-03-31 [facility] [id number] [id number] Univers 11:30:00 11:30:00 YUSUF [id number] [facility] 2020-03-31 2020-03-31 Outpatient R [facility] [id number] Univers 11:30:00 11:30:00 YUSUF [facility] 2019-10-15 2019-10-15 Office [facility] 1.2.442.914 [id number] Univers 11:31:15 12:29:05 Visit Yusuf Maciel 350.1.13.10 i ty [place] 4[place]2.7.2.[place] [phone] Wa dical [address] 2019-10-15 2019-10-15 Outpatient R [facility] [id number] Univers 11:30:00 12:29:05 YUSUF [facility] 2019-06-02 2019-06-02 [facility] [id number] Memoria 10:35:00 18:05:00 Outpatient r [place] 04 [facility] 2019-06-02 2019-06-02 Bedded nullFlavo [facility] [id number] Memoria 10:35:00 18:05:00 Outpatient r [place] 04 [facility] 2019-06-02 2019-06-02 Outpatient Jc [facility] [id number] 05:35:00 13:05:00 Pilo Jin 2019-06-02 2019-06-02 Outpatient [facility] CAR 7504 [facility] 05:35:00 05:35:00 2019-05-19 2019-05-20 Outpt Diag nullFlavo [facility] [id number] Memoria 18:18:00 04:59:00 Services r Outpatient 05 l [facility] 2019-05-19 2019-05-20 Outpt Diag nullFlavo [facility] [id number] Memoria 18:18:00 04:59:00 Services r Outpatient 05 l Imaging Dino Carlson 2019-05-19 2019-05-19 Outpatient Jc, 2.16.840. 2.16.840.1. [id number] 13:18:00 23:59:00 Pilo Thayer [id number]. 242545.3.61 05 3.615.101 5.101 2019-05-05 2019-05-06 Outpatient nullFlavo [facility] [id number] Memoria 19:40:00 04:59:00 r Disease 03 l [facility] 2019-05-05 2019-05-06 Outpatient nullFlavo [facility] [id number] Memoria 19:40:00 04:59:00 r Disease 03 [facility] 2019-05-05 2019-05-05 [facility] [id number] 14:40:00 23:59:00 At[place] 03 2019-05-05 2019-05-05 Outpatient [facility] [id number] [facility] 14:40:00 14:40:00 2019-04-14 2019-04-14 [facility] 1.2.840.114 [id number] Univers 11:00:22 23:59:00 Encounter Yusuf Maciel 350.1.13.10 ity of [place] 4.2.7.2.686 [facility] s [place] [id number] [facility] [address] [place] 2019-04-09 2019-04-09 Office [facility] 1.2.901.980 [id number] Univers 08:26:57 10:14:43 Visit Yusuf Maciel 350.1.13.10 i ty of [place] 4.2.7.2.686 [facility] s [facility] [phone] Wa dical [facility] 220 [facility] 2019-04-09 2019-04-09 Orders Doctor DEIRDRE 1.2.840.114 [id number] Univers 00:00:00 00:00:00 Only Unassigned, VELVET 350.1.13.10 ity of [place] [facility] 4.2.7.2.686 Laurent as [phone] [facility] [address] 2016-10-28 2016-10-29 Bedded nullFlavo [facility] [id number] Memoria 18:02:00 15:07:00 Outpatient r [place] 02 [facility] 2016-10-28 2016-10-29 Bedded nullFlavo [facility] [id number] Memoria 18:02:00 15:07:00 Outpatient r [place] 02 [facility] 2016-10-28 2016-10-29 Outpatient Jc [facility] [id number] 12:02:00 09:07:00 Pilo R 02 2016-04-22 2016-04-27 Inpatient nullFlavo [facility] [id number] Memoria 00:43:00 01:07:[address] 2016-04-22 2016-04-27 Inpatient nullFlavo [facility] [id number] Memoria 00:43:00 01:07:[address] 2016-04-21 2016-04-26 Outpatient Jc [facility] [id number] 19:43:00 20:07:00 Pilo R 41 2015-03-02 2015-03-03 Outpt Diag nullFlavo [facility] [id number] Memoria 17:37:00 04:59:00 Services r Outpatient 00 l Imaging [facility] 2015-03-02 2015-03-03 Outpt Diag nullFlavo [facility] [id number] Memoria 17:37:00 04:59:00 Services r Outpatient 00 l [facility] 2015-03-02 2015-03-02 Outpatient Cayden Fong 2.16.840. 2.16.840.1. [id number] 12:37:00 23:59:00 [id number]. 010563.3.61 00 3.615.0.1 5.0.772 48 3978-07-09 2015-03-02 Outpatient [facility] [id number] Memoria 13:30:00 13:30:00 00 [facility] 2015-03-02 2015-03-02 Outpatient [facility] [id number] Memoria 13:30:00 13:30:00 00 [facility] 2014-03-03 2014-03-04 Outpt Diag nullFlavo [facility] [id number] Memoria 16:41:00 04:59:00 Services r Outpatient 03 l Imaging Conrad Martines 2014-03-03 2014-03-04 Outpt Diag nullFlavo [facility] [id number] Memoria 16:41:00 04:59:00 Services r Outpatient 03 l Imaging Conrad Martines 2014-03-03 2014-03-03 Outpatient Cayden Fong 2.16.840. 2.16.840.1. [id number] 11:41:00 23:59:00 1.018473. 370776.3.61 03 3.615.0.1 5.0.101 01 Results Test Description Test Time Test Comments Results Result Comments Source POCT SARS-COV-2 ANTIGEN (BINAX NOW) 2022-03-13 22:30:00 Test Item Value Reference Range Interpretation Comme nts POCT SARS-COV-2 ANTIGEN (test code Positive Not Detected A = 5076) On board controls acceptable with Yes C Line (test code = 3574) THO (test code = THO) accurate development and interpretation of all internal controls Lab Interpretation (test code = Abnormal 86011-3) [facility]2022-01-28 11:13:00 Test Item Value Reference Range Interpretation Comments SURGICAL (test code = SR) --------RUN DATE: 09/21/21 [facility] - LAB PAGE 1 RUN TIME: 1113 Specimen Inquiry RUN USER: INTERFACE --------PATIENT: JASON GOYAL LOC: P.5N POD B U #: [id number] AGE/SX: 86/F ROOM: [facility]80 RE09/18/21REG DR: Iván Cowan MD : 35 BED: 1 DIS: STATUS: ADM IN TLOC: -------- SPEC #: [id number] RECD: 09/18/21-1327 STATUS: ROLAND REQ #: [id number] BALDO: 09/18/21-1210 [facility] DR: Iván Cowan MD ENTERED: 09/18/21-1330 SP TYPE: SURGICAL OTHR DR: Sam Omer MD ORDERED: [id number], 52772/2, ANATOMIC SPEC HISTOLOGY: TISSUE ID BLK PCS MARIBEL LEV / PROCEDURE DISPOSITION ____ ___ ___ ___ ___ SMINNT A 2 1 COLSR B 14 1 SOFTISDEB C 1 1 TISSUES: A. 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 COLON SEGMENTAL RESECTION NOT TUMOR - Rectosigmoid Colon C. SOFT TISSUE NOT TUMOR / MASS / LIPOMA / DEBRIDEMENT - Foreign Body on the Rectum FINAL DIAGNOSIS A. 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 B. COLON, RECTOSIGMOID, EXCISION:- Diverticulosis with mural fibrosis and luminal narrowing, consistent with stricture. - Serosal adhesions. - 6 benign lymph nodes. - Resection margins are unremarkable. C. SOFT TISSUE, "FOREIGN BODY ON RECTUM," EXCISION:- Fibroadipose tissue with fibrosis and suture material with a foreign body giant cell reaction. GROSS DESCRIPTION A. Received in formalin, labeled with patient's name, medical record number and "smallbowel duplication cyst". It consists of a cystic/dilated portion of small bowel thatmeasures 4.1 x 4.0 x 2.3 cm and has a 3.5 cm staple line. The serosal surface is smoothglistening zimmerman. The specimen is opened to reveal green-yellow fecal material. Care Manager Cna sections are submitted in cassettes A1 and A2 as follows: A1 - margin; A2 -field representative sections of dilated bowel- full thickness. The specimen also demonstratesthinning of the small bowel wall to a thickness of 0.1 cm. In these areas the mucosalfolds are slightly flattened. No masses, lesions are identified. B. Received in formalin, labeled with patient's name, medical record number and"rectosigmoid colon". It consists of a 20.4 cm length of rectum-colon and attached softtissue. The rectal portion measures approximately 5.0 cm in length. The specimen has an CONTINUED ON NEXT PAGE --------RUN DATE: 09/21/21 [facility] - LAB PAGE 2 RUN TIME: 1113 Specimen Inquiry RUN USER: INTERFACE --------SPEC #: [id number] PATIENT: JYOTSNAJASONXON #[id number] (Continued) GROSS DESCRIPTION (Continued) average circumference ranging from 5.5 to 3.0 cm. The serosal surface of the specimen issmooth glistening with 2 areas of white fibrosis. An area of serosal disruption and 2 areasof serosal fibrosis are inked blue, with the most proximal serosal fibrosis present 3.1 cmfrom the proximal margin. The most distal is 4.9 cm from the distal margin. The specimenis opened to reveal normal rugal folds and multiple diverticula and an area of luminalnarrowing at the proximal most blue ink. This area also corresponds to, a focal area ofmucosal fibrosis is present 3.1 cm from the margin and measures 0.2 x 0.2 x 0.1 cm. Noother definitive mucosal lesions are identified. Two unremarkable colorectal donuts arealso received. Care Manager Cna sections are submitted as follows: B1 - proximal margin; B2-distal margin; B3 - field representative section of mesenteric margin and radial margin; B4 to B6- proximal serosal scar with diverticula; B7 - field representative sections at middle area ofserosal fibrosis; B8 - field representative sections at distal mural disruption; B9 and B10 -candidate lymph nodes; B11 - field representative section from non-designated donuts; B12 to B14- additional soft tissue with possible lymph nodes. C. Received in formalin, labeled with patient's name, medical record number and "foreignbody rectum". It consists of a 3.0 x 1.5 x 0.9 cm portion of fibroadipose with embeddedstitches. Care Manager Cna sections are submitted in cassette C. ASHLEY/ks Technical component performed at [facility], [place], [address] MICROSCOPIC DESCRIPTION NEGATIVE FOR MALIGNANCY. PERFORMED AND INCORPORATED INTO THE FINAL DIAGNOSIS. CLINICAL INFORMATION Diverticular stricture (per op note) Signed SIGNATURE ON FILE Steve Shell 09/21/21 1113 -------- END OF REPORT BASIC METABOLIC [id number] 08:32:00 Test Item Value Reference Range Interpretation [...] New = CA) Reference Range Sep 2020 [id number] 08:32:00 Test Item Value Reference Range Interpretation Comments MAGNESIUM (test code = 1.3 mg/dL 1.6-2.6 L Pleas e note: New MAG) Reference Range Sep 2020 CBC W/AUTO [id number] 08:16:00 Test Item Value Reference Range Interpretation [...] 0.02 x10 3/uL 0.0-0.20 N RECOLLECTCBC W/MANUAL [id number] 05:55:00 Test Item Value Reference Range Interpretation [...] code NORMAL NORMAL = PLTMORPH) BASIC METABOLIC [id number] 05:04:00 Test Item Value Reference Range Interpretation [...] New = CA) Reference Range Sep 2020 [id number] 05:04:00 Test Item Value Reference Range Interpretation Comments MAGNESIUM (test code = 2.0 mg/dL 1.6-2.6 N Pleas e note: New MAG) Reference Range Sep 2020 CBC W/AUTO [id number] 04:41:00 Test Item Value Reference Range Interpretation [...] 0.01 x10 3/uL 0.0-0.20 N BASIC METABOLIC [id number] 04:31:00 Test Item Value Reference Range Interpretation [...] New = CA) Reference Range Sep 2020 [id number] 04:31:00 Test Item Value Reference Range Interpretation Comments MAGNESIUM (test code = 1.5 mg/dL 1.6-2.6 L Pleas e note: New MAG) Reference Range Sep 2020 Novel Coronavirus 2018 [id number] 14:55:00 Test Item Value Reference Range Interpretation [...] det ection of nucleic acids f rom nvnYZJH-VsL-[id number] v irus and diagnosis of SA RS-CoV-2 virusinfection. It is an Emergency Use Authorization ( EUA) testauthorized by the U.S. FDA. First test? UnknownEmployed in Healthcare? UnknownSymptomatic as defined by CDC? UnknownHospitalizeddue to COVID? UnknownIn ICU due to COVID? UnknownResident in a congregate care setting? Unknown? NoAge at collection: Jeremy Coronavirus 2019 [id number] 14:55:00 Test Item Value Reference Range Interpretation [...] det ection of nucleic acids f rom frgHYGF-YuQ-7 v irus and diagnosis of SA RS-CoV-2 virusinfection. It is an Emergency Use Authorization ( EUA) testauthorized by the U.S. FDA. First test? UnknownEmployed in Healthcare? UnknownSymptomatic as defined by CDC? UnknownHospitalizeddue to COVID? UnknownIn ICU due to COVID? UnknownResident in a congregate care setting? Unknown? NoAge at collection: YBASIC METABOLIC [id number] 11:15:00 Test Item Value Reference Range Interpretation [...] CA) Reference Range Sep 2020 CBC W/AUTO [id number] 10:57:00 Test Item Value Reference Range Interpretation [...] = BA#) 0.05 x10 3/uL 0.0-0.20 N Gastrointestinal [id number] 02:35:09 Test Item Value Reference Interpretation Comments Range Adenovirus 40/41 PCR Not Detected Specime n (test code = 7113) Informati onSpecimen Source: StoolSp ecimen Site: Nonpreser [place] Astrovirus PCR (test Not Detected code = 4790) Campylobacter PCR Not Detected (test code = 7114) Clostridioides Not Detected difficile PCR (test code = 7115) Cryptosporidium PCR Not Detected (test code = 7116) Cyclospora Not Detected cayetanensis PCR (test code = 7117) Enteroaggregative E Not Detected coli PCR (test code = 4784) Entamoeba histolytica Not Detected PCR (test code = 7118) Enteroinvasive E coli Not Detected PCR (test code = 4788) Enteropathogenic E Not Detected coli PCR (test code = 4785) Norovirus PCR (test Not Detected code = 7119) Plesiomonas Not Detected shigelloides PCR (test code = 4782) Rotavirus PCR (test Not Detected code = 0052169) Salmonella PCR (test Not Detected code = 4783) Sapovirus PCR (test Not Detected code = 4791) Enterotoxigenic E coli Not Detected PCR (test code = 4786) Shigatoxin producing E Not Detected coli PCR (test code = 4787) E coli O157 PCR (test Not Reported code = 7120) Vibrio PCR (test code Not Detected = 7121) Vibrio cholerae PCR Not Detected (test code = 7122) Yersinia Not Detected enterocolitica PCR (test code = 7123) Giardia lamblia PCR Not Detected (test code = 7124) [facility] CHEST 2 [id number] 14:14:50HISTORY: Preop. TECHNIQUE: PA and lateral views [...] lesions. CONCLUSIONS: No signs of acute cardiopulmonary disease.[facility], Radiant Results Inft User - 12/06/2020 9:15 AM CDTHISTORY: Preop.TECHNIQUE: PA and lateral views of the chest are obtained. Comparison ismade with 10/06/2020 study.FINDINGS: Abnormal findings are seen in the lower lungs, slightly more inthe left lower l charis, consistent with chronic pulmonary fibrosis with mildelevation [...] T4 and T5 vertebral bodies.No aggressive bone lesions.CONCLUSIONS: No signs of acute cardiopulmonary disease.[facility] 2020-10-06 15:35:52EXAM: XR CHEST 2 VW HISTORY: Hemorrhage of rectum and anus Disease of rectum COMPARISON: None. FINDINGS: The heart and great vessels are normal except for calcium in the arch ofthe aorta. Small pleuraleffusions blunt the costophrenic angles but thelungs are otherwise satisfactorily expanded and clearexcept for minorbasilar subsegmental atelectasis on the left. A hiatal hernia lies behindthe heart. ? [facility], [facility] Results Inft User - 10/06/2020 9:37 [...] the left. A hiatal hernia lies behindthe heart.[facility] 2020-08-23 15:25:00 Test Item Value Reference Range Interpretation Comments Result 2 (Urine Culture) See Result Comment (test code = Result 2 (Urine Culture)) [facility] LAB [id number] 15:25:00 Test Item Value Reference Range Interpretation Comments Result 2 (Urine Culture) See Result Comment (test code = Result 2 (Urine Culture)) [facility] PERIPHERAL (FOREARM)2020-04-11 15:19:04HISTORY: Osteoporosis. TECHNIQUE: Bone density [...] d of the left radius and ulna. [facility], Radiant Results Inft User - 04/11/2020 10:20 AM CDTHISTORY: Osteoporosis.TECHNIQUE: Bone density estimation is done using DEXA scan, over the distalleft forearm.FINDINGS: Details of the results are enclosed for your review. The summaryis as follows.Estimated BMD value over distal third of the radius was 0.677 g/sq cm withT score of -3.0. Estimated BMD value over distal third of ulna was 0.483g/sq cm.CONCLUSION: Moderate osteoporosis in distal third of the left radius and ulna.[facility] (HIP [facility] SPINE)2020-04-11 15:17:51HISTORY: History of [...] for each 1.5 SD below the mean. [facility], Radiant Results Inft User - 04/11/2020 10:19 [...] in lumbar spines.ASSESSMENT: WHO- definitions: T-scorenormal: +/- 1SD around the meanosteopenia: >1 to 2.4 SD below the meanosteoporosis: >2.5 SD below the meanFracture risk doubles for each 1.5 SD below the mean.[facility] 2019-06-02 14:36:00 Test Item Value Reference Range Interpretation Comments POC Activated Clotting Time (test code 186 s = POC Activated Clotting Time) [facility] [id number] 14:36:00 Test Item Value Reference Range Interpretation Comments POC Activated Clotting Time (test code 186 s = POC Activated Clotting Time) [facility] [id number] 10:47:00 Test Item Value Reference Range Interpretation Comments ABO/Rh (test code = ABO/Rh) O POS [facility] [id number] 10:47:00 Test Item Value Reference Range Interpretation Comments Antibody Scrn (test Positive (06/02/19 5:47 code = Antibody Scrn) AM) [facility] [id number] 10:47:00 Test Item Value Reference Range Interpretation Comments AB Int (test code = Non-specific IgG AB Int) Antibody [facility] [id number] 10:47:00 Test Item Value Reference Range Interpretation Comments PAUL Gel Int (test Positive (06/02/19 5:47 code = PAUL Gel Int) AM) [facility] [id number] 10:47:00 Test Item Value Reference Range Interpretation Comments C3 Int (test code = Negative (06/02/19 5:47 C3 Int) AM) [facility] [id number] 10:47:00 Test Item Value Reference Range Interpretation Comments Eluate Int (test code = Eluate Int) See Note [facility]2019-10-09 10:47:00 Test Item Value Reference Range Interpretation Comments Glucose Lvl (test code = Glucose Lvl) 102 70-99 [facility] [id number] 10:47:00 Test Item Value Reference Range Interpretation Comments BUN (test code = BUN) 20 7-22 [facility] [id number] 10:47:00 Test Item Value Reference Range Interpretation Comments Creatinine Lvl (test code = Creatinine 1.00 0.50-1.40 Lvl) [facility]2019-10-09 10:47:00 Test Item Value Reference Range Interpretation Comments Sodium Lvl (test code = Sodium Lvl) 143 135-145 [facility]2019-10-09 10:47:00 Test Item Value Reference Range Interpretation Comments Potassium Lvl (test code = Potassium 3.7 3.5-5.1 Lvl) [facility]2019-10-09 10:47:00 Test Item Value Reference Range Interpretation Comments Chloride Lvl (test code = Chloride Lvl) 105 95-109 [facility]2019-10-09 10:47:00 Test Item Value Reference Range Interpretation Comments CO2 (test code = CO2) 31 24-32 [facility]2019-10-09 10:47:00 Test Item Value Reference Range Interpretation Comments Calcium Lvl (test code = Calcium Lvl) 10.0 8.5-10.5 [facility]2019-10-09 10:47:00 Test Item Value Reference Range Interpretation Comments eGFR (test code = eGFR) 52 [facility]2019-10-09 10:47:00 Test Item Value Reference Range Interpretation Comments AGAP (test code = AGAP) 10.7 10.0-20.0 [facility]2019-10-09 10:47:00 Test Item Value Reference Range Interpretation Comments Magnesium Lvl (test code = Magnesium 2.1 1.8-2.4 Lvl) [facility]2019-10-09 10:47:00 Test Item Value Reference Range Interpretation Comments Phosphorus (test code = Phosphorus) 3.4 2.5-4.5 [facility] [id number] 10:47:00 Test Item Value Reference Range Interpretation Comments WBC (test code = WBC) 6.2 3.7-10.4 [facility] [id number] 10:47:00 Test Item Value Reference Range Interpretation Comments RBC (test code = RBC) 4.17 4.20-5.40 [facility] [id number] 10:47:00 Test Item Value Reference Range Interpretation Comments Hgb (test code = Hgb) 12.5 12.0-16.0 [facility] Cent[id number] 10:47:00 Test Item Value Reference Range Interpretation Comments Hct (test code = Hct) 37.7 36.0-48.0 [facility] [id number] 10:47:00 Test Item Value Reference Range Interpretation Comments MCV (test code = MCV) 90.4 80.0-98.0 [facility] Cent[id number] 10:47:00 Test Item Value Reference Range Interpretation Comments MCH (test code = MCH) 30.0 pg 27.0-31.0 [facility] [id number] 10:47:00 Test Item Value Reference Range Interpretation Comments MCHC (test code = MCHC) 33.2 32.0-36.0 [facility] [id number] 10:47:00 Test Item Value Reference Range Interpretation Comments RDW (test code = RDW) 13.5 11.5-14.5 [facility] [id number] 10:47:00 Test Item Value Reference Range Interpretation Comments Platelet (test code = Platelet) 288 133-450 [facility] [id number] 10:47:00 Test Item Value Reference Range Interpretation Comments MPV (test code = MPV) 7.1 7.4-10.4 [facility] CenterVxuovkkBODIDQPSRZ4912-78-72 10:47:00 Test Item Value Reference Range Interpretation Comments PT (test code = PT) 13.0 s 12.0-14.7 [facility] Cent[id number] 10:47:00 Test Item Value Reference Range Interpretation Comments PTT (test code = PTT) 29.2 s 22.9-35.8 [facility] [id number] 10:47:00 Test Item Value Reference Range Interpretation Comments INR (test code = INR) 1.00 1 0.85-1.17 [facility] CenterQjjvbwkROIBJCHHKX5081-26-14 10:47:00 Test Item Value Reference Range Interpretation Comments Segs (test code = Segs) 60.5 45.0-75.0 [facility] Cent[id number] 10:47:00 Test Item Value Reference Range Interpretation Comments Lymphocytes (test code = Lymphocytes) 26.2 20.0-40.0 [facility] Cent[id number] 10:47:00 Test Item Value Reference Range Interpretation Comments Monocytes (test code = Monocytes) 8.7 2.0-12.0 [facility] CenterAwpfvdoWPDJQJNFVK8531-26-24 10:47:00 Test Item Value Reference Range Interpretation Comments Eosinophils (test code = 4.0 See_Comment [A utomated message] The Eosinophils) system which ge nerated this result tra nsmitted reference range : <=4.0. The reference r robbie was not used to int erpret this result as normal/abnormal . [facility] Cent[id number] 10:47:00 Test Item Value Reference Range Interpretation Comments Basophils (test code = 0.6 See_Comment [Aut omated message] The Basophils) system which ge nerated this result tra nsmitted reference range : <=1.0. The reference r robbie was not used to int erpret this result as normal/abnormal . [facility] Cent[id number] 10:47:00 Test Item Value Reference Range Interpretation Comments Neutrophils # (test code = Neutrophils 3.7 1.5-8.1 #) [facility] CenterIjyvkukFYDKXUVHJL7729-88-12 10:47:00 Test Item Value Reference Range Interpretation Comments Lymphocytes # (test code = Lymphocytes 1.6 1.0-5.5 #) [facility] CenterPbpltnzTNYBYIMQEW9901-05-81 10:47:00 Test Item Value Reference Range Interpretation Comments Monocytes # (test code 0.5 See_Comment [Aut omated message] The = Monocytes #) system which generated this result tra nsmitted reference range : <=0.8. The reference r robbie was not used to int erpret this result as normal/abnormal . [facility] CenterLtogmslRDLBRGHYTW6331-01-06 10:47:00 Test Item Value Reference Range Interpretation Comments Eosinophils # (test code 0.3 See_Comment [A utomated message] The = Eosinophils #) system ic h generated this result tra nsmitted reference range : <=0.5. The reference r robbie was not used to int erpret this result as normal/abnormal . [facility] [id number] 10:47:00 Test Item Value Reference Range Interpretation Comments ABO/Rh (test code = ABO/Rh) O POS [facility] [id number] 10:47:00 Test Item Value Reference Range Interpretation Comments Antibody Scrn (test Positive (06/02/19 5:47 code = Antibody Scrn) AM) [facility] [id number] 10:47:00 Test Item Value Reference Range Interpretation Comments AB Int (test code = Non-specific IgG AB Int) Antibody [facility] [id number] 10:47:00 Test Item Value Reference Range Interpretation Comments PAUL Gel Int (test Positive (06/02/19 5:47 code = PAUL Gel Int) AM) [facility] [id number] 10:47:00 Test Item Value Reference Range Interpretation Comments C3 Int (test code = Negative (06/02/19 5:47 C3 Int) AM) [facility] [id number] 10:47:00 Test Item Value Reference Range Interpretation Comments Eluate Int (test code = Eluate Int) See Note [facility] [id number] 10:47:00 Test Item Value Reference Range Interpretation Comments Glucose Lvl (test code = Glucose Lvl) 102 70-99 [facility] [id number] 10:47:00 Test Item Value Reference Range Interpretation Comments BUN (test code = BUN) 20 7-22 [facility] [id number] 10:47:00 Test Item Value Reference Range Interpretation Comments Creatinine Lvl (test code = Creatinine 1.00 0.50-1.40 Lvl) [facility] [id number] 10:47:00 Test Item Value Reference Range Interpretation Comments Sodium Lvl (test code = Sodium Lvl) 143 135-145 [facility] [id number] 10:47:00 Test Item Value Reference Range Interpretation Comments Potassium Lvl (test code = Potassium 3.7 3.5-5.1 Lvl) [facility] [id number] 10:47:00 Test Item Value Reference Range Interpretation Comments Chloride Lvl (test code = Chloride Lvl) 105 95-109 [facility] [id number] 10:47:00 Test Item Value Reference Range Interpretation Comments CO2 (test code = CO2) 31 24-32 [facility] [id number] 10:47:00 Test Item Value Reference Range Interpretation Comments Calcium Lvl (test code = Calcium Lvl) 10.0 8.5-10.5 [facility] [id number] 10:47:00 Test Item Value Reference Range Interpretation Comments eGFR (test code = eGFR) 52 [facility] [id number] 10:47:00 Test Item Value Reference Range Interpretation Comments AGAP (test code = AGAP) 10.7 10.0-20.0 [facility]2019-10-09 10:47:00 Test Item Value Reference Range Interpretation Comments Magnesium Lvl (test code = Magnesium 2.1 1.8-2.4 Lvl) [facility]2019-10-09 10:47:00 Test Item Value Reference Range Interpretation Comments Phosphorus (test code = Phosphorus) 3.4 2.5-4.5 [facility] CenterIcpuryoARAEWZULJZ3167-41-72 10:47:00 Test Item Value Reference Range Interpretation Comments WBC (test code = WBC) 6.2 3.7-10.4 [facility] CenterRergvxdUXLPISNIHU3811-34-19 10:47:00 Test Item Value Reference Range Interpretation Comments RBC (test code = RBC) 4.17 4.20-5.40 [facility] CenterDykwwwlKZMQBEFCFC2208-92-59 10:47:00 Test Item Value Reference Range Interpretation Comments Hgb (test code = Hgb) 12.5 12.0-16.0 [facility] CenterKxvlijiHCKQIXXFTI9434-62-44 10:47:00 Test Item Value Reference Range Interpretation Comments Hct (test code = Hct) 37.7 36.0-48.0 [facility] Cent[id number] 10:47:00 Test Item Value Reference Range Interpretation Comments MCV (test code = MCV) 90.4 80.0-98.0 [facility] CenterTreebuxSIHNNXUEVX0606-92-18 10:47:00 Test Item Value Reference Range Interpretation Comments MCH (test code = MCH) 30.0 pg 27.0-31.0 [facility] CenterOhwafsfZJFPFGPPCU9507-14-74 10:47:00 Test Item Value Reference Range Interpretation Comments MCHC (test code = MCHC) 33.2 32.0-36.0 [facility] CenterGpeghucNCCZRSSBYO0425-96-48 10:47:00 Test Item Value Reference Range Interpretation Comments RDW (test code = RDW) 13.5 11.5-14.5 [facility] Cent[id number] 10:47:00 Test Item Value Reference Range Interpretation Comments Platelet (test code = Platelet) 288 133-450 [facility] CenterGvmfceoDOGKTDJDGJ0851-53-14 10:47:00 Test Item Value Reference Range Interpretation Comments MPV (test code = MPV) 7.1 7.4-10.4 [facility] CenterK[id number] 10:47:00 Test Item Value Reference Range Interpretation Comments PT (test code = PT) 13.0 s 12.0-14.7 [facility] CenterKbtghtrJFBACIISLR3726-63-43 10:47:00 Test Item Value Reference Range Interpretation Comments PTT (test code = PTT) 29.2 s 22.9-35.8 [facility] CenterGsjoxycORJJVSCXOI3558-60-56 10:47:00 Test Item Value Reference Range Interpretation Comments INR (test code = INR) 1.00 1 0.85-1.17 [facility] CenterCvvuvbfKWFJAAIKSC0120-27-55 10:47:00 Test Item Value Reference Range Interpretation Comments Segs (test code = Segs) 60.5 45.0-75.0 [facility] CenterYqrqdtiRFWPLXEENN2031-45-13 10:47:00 Test Item Value Reference Range Interpretation Comments Lymphocytes (test code = Lymphocytes) 26.2 20.0-40.0 [facility] CenterJbqljkeSKCXFYEOGT6273-58-30 10:47:00 Test Item Value Reference Range Interpretation Comments Monocytes (test code = Monocytes) 8.7 2.0-12.0 [facility] CenterPqekwerPSTFDZDGKN4362-43-20 10:47:00 Test Item Value Reference Range Interpretation Comments Eosinophils (test code = 4.0 See_Comment [A utomated message] The Eosinophils) system which ge nerated this result tra nsmitted reference range : <=4.0. The reference r robbie was not used to int erpret this result as normal/abnormal . [facility] CenterIthofsrEDJHDDSAVY6301-72-82 10:47:00 Test Item Value Reference Range Interpretation Comments Basophils (test code = 0.6 See_Comment [Aut omated message] The Basophils) system which ge nerated this result tra nsmitted reference range : <=1.0. The reference r robbie was not used to int erpret this result as normal/abnormal . [facility]ZwpghrlDABKBJTWOH6761-28-62 10:47:00 Test Item Value Reference Range Interpretation Comments Neutrophils # (test code = Neutrophils 3.7 1.5-8.1 #) [facility] CenterMrlmagfPTRQUAMSLH4195-31-00 10:47:00 Test Item Value Reference Range Interpretation Comments Lymphocytes # (test code = Lymphocytes 1.6 1.0-5.5 #) [facility] CenterRdfdmepDLXOXQCBAC3083-51-45 10:47:00 Test Item Value Reference Range Interpretation Comments Monocytes # (test code 0.5 See_Comment [Aut omated message] The = Monocytes #) system which generated this result tra nsmitted reference range : <=0.8. The reference r robbie was not used to int erpret this result as normal/abnormal . [facility] CenterHozvctiHEMVBWBHSM2533-88-05 10:47:00 Test Item Value Reference Range Interpretation Comments Eosinophils # (test code 0.3 See_Comment [A utomated message] The = Eosinophils #) system whic h generated this result tra nsmitted reference range : <=0.5. The reference r robbie was not used to int erpret this result as normal/abnormal . [facility] ([facility])2019-04-14 16:40:40HISTORY: Osteoporosis screening study. [...] for each 1.5 SD below the mean. [facility], Radiant Results Inft User - 04/14/2019 11:42 [...] No osteoporosis detected lumbar vertebral bodies.ASSESSMENT: WHO-definitions: T- scorenormal: +/- 1 SD around the meanosteopenia: >1 to 2.4 SD below the meanosteoporosis: >2.5 SD below the meanFracture riskdoubles for each 1.5 SD below the mean.[facility]2017-03-07 11:37:00 Test Item Value Reference Range Interpretation Comments eGFR (test code = eGFR) 48 [facility]2017-03-07 11:37:00 Test Item Value Reference Range Interpretation Comments Creatinine Lvl (test code = Creatinine 1.08 0.50-1.40 Lvl) [facility] CenterTfpoovnVOIDMWELSX7286-74-04 11:37:00 Test Item Value Reference Range Interpretation Comments Hgb (test code = Hgb) 12.6 12.0-16.0 [facility]2017-03-07 11:37:00 Test Item Value Reference Range Interpretation Comments eGFR (test code = eGFR) 48 [facility]2017-03-07 11:37:00 Test Item Value Reference Range Interpretation Comments Creatinine Lvl (test code = Creatinine 1.08 0.50-1.40 Lvl) [facility] CenterBaclkebOXPBIBDKOP3738-68-78 11:37:00 Test Item Value Reference Range Interpretation Comments Hgb (test code = Hgb) 12.6 12.0-16.0 [facility] CenterRsdqiqhPVGVRFGFYJ3247-61-47 00:09:00 Test Item Value Reference Range Interpretation Comments POC Activated Clotting Time (test code 198 s = POC Activated Clotting Time) [facility] CenterOwdphsjWJVVBLRNGS5917-34-07 00:09:00 Test Item Value Reference Range Interpretation Comments POC Activated Clotting Time (test code 198 s = POC Activated Clotting Time) [facility] CenterScjrzdiNNAPNOMECR7207-26-46 22:02:00 Test Item Value Reference Range Interpretation Comments POC Activated Clotting Time (test code 268 s = POC Activated Clotting Time) [facility] CenterXgrmfrjVIREOBMNOR6135-00-37 22:02:00 Test Item Value Reference Range Interpretation Comments POC Activated Clotting Time (test code 268 s = POC Activated Clotting Time) [facility] HealthcareGdcztkdAMDUBWYITSVV5083-73-44 18:25:00 Test Item Value Reference Range Interpretation Comments CO2 (test code = CO2) 31 24-32 [facility] HealthcareQykuvnySLPWGYSOTGJH1203-30-61 18:25:00 Test Item Value Reference Range Interpretation Comments Chloride Lvl (test code = Chloride Lvl) 103 95-109 [facility] HealthcareGkwthhxIOONWONUIXOV6823-44-25 18:25:00 Test Item Value Reference Range Interpretation Comments eGFR (test code = eGFR) 55 [facility] HealthcareNgfxlkjQVCTEKZWFNGM6338-98-87 18:25:00 Test Item Value Reference Range Interpretation Comments Sodium Lvl (test code = Sodium Lvl) 141 135-145 [facility] RJLNMZV0188-90-10 18:25:00 Test Item Value Reference Range Interpretation Comments ABO/Rh (test code = ABO/Rh) O POS [facility] AIMWVVO8037-57-59 18:25:00 Test Item Value Reference Range Interpretation Comments Antibody Scrn (test Negative (10/28/16 12:25 code = Antibody Scrn) PM) [facility] [id number] 18:25:00 Test Item Value Reference Range Interpretation Comments Magnesium Lvl (test code = Magnesium 1.9 1.8-2.4 Lvl) [facility] HealthcareXqsogeiHCSFZDSUTCYI0111-07-68 18:25:00 Test Item Value Reference Range Interpretation Comments Potassium Lvl (test code = Potassium 4.4 3.5-5.1 Lvl) [facility] HealthcareTurvfetKARWLDQAGBBT4593-54-86 18:25:00 Test Item Value Reference Range Interpretation Comments Calcium Lvl (test code = Calcium Lvl) 9.4 8.5-10.5 [facility] HealthcareQxhzrxnHHRPBFZUHJKJ6772-94-55 18:25:00 Test Item Value Reference Range Interpretation Comments CO2 (test code = CO2) 31 24-[address] [facility] [facility] [facility]XxaeyhrJLCBSUAJMPLN5776-64-91 18:25:00 Test Item Value Reference Range Interpretation Comments Creatinine Lvl (test code = Creatinine 0.97 0.50-1.40 Lvl) [facility] HealthcareWomcsmhBIUCXXWAKTBZ9796-76-42 18:25:00 Test Item Value Reference Range Interpretation Comments Chloride Lvl (test code = Chloride Lvl) 103 95-109 [facility] HealthcareTkwznfoWDECDFJFGFTV2621-58-97 18:25:00 Test Item Value Reference Range Interpretation Comments eGFR (test code = eGFR) 55 [facility] HealthcareTwdejahDFEHLPENMXAP5385-95-42 18:25:00 Test Item Value Reference Range Interpretation Comments Sodium Lvl (test code = Sodium Lvl) 141 135-145 [facility] HealthcareRoxwsmxEKIFLWKEXULR2548-22-92 18:25:00 Test Item Value Reference Range Interpretation Comments Creatinine Lvl (test code = Creatinine 0.97 0.50-1.40 Lvl) [facility] HealthcareKcunwjgGUYVJRGFGIPH3487-91-16 18:25:00 Test Item Value Reference Range Interpretation Comments BUN (test code = BUN) 24 7- [facility] HealthcareMjbhsawSFDEGZLDVRAX0619-52-25 18:25:00 Test Item Value Reference Range Interpretation Comments Glucose Lvl (test code = Glucose Lvl) 108 70-99 [facility] HealthcareKqpowcbTLSANXAQNHFB2415-20-37 18:25:00 Test Item Value Reference Range Interpretation Comments AGAP (test code = AGAP) 11.4 10.0-20.0 [facility] CenterInwlowmUZHZMEITZL4015-87-38 18:25:00 Test Item Value Reference Range Interpretation Comments INR (test code = INR) 1.10 0.85-1.17 [facility] CenterFwgqhqyQNDDCARJPA5741-47-49 18:25:00 Test Item Value Reference Range Interpretation Comments PT (test code = PT) 14.4 s 12.0-14.7 [facility] CenterEarisiaVKNZNTLUOG7860-82-34 18:25:00 Test Item Value Reference Range Interpretation Comments PTT (test code = PTT) 30.3 s 22.9-35.8 [facility] HealthcareQfqgjbbYSUZDPSVYHBU7409-88-66 18:25:00 Test Item Value Reference Range Interpretation Comments BUN (test code = BUN) 24 7- [facility] CenterDwqrrlcEXTFNPMBLC6474-43-31 18:25:00 Test Item Value Reference Range Interpretation Comments Hgb (test code = Hgb) 13.1 12.0-16.0 [facility] CenterYqfvsnhRBMWGUMTAU0907-14-57 18:25:00 Test Item Value Reference Range Interpretation Comments RBC (test code = RBC) 4.51 4.20-5.40 [facility] CenterFgotvhkBCBPZOOUMX4817-66-09 18:25:00 Test Item Value Reference Range Interpretation Comments WBC (test code = WBC) 5.4 3.7-10.4 [facility] CenterCqvpqmeACNJTNPWZW5471-08-28 18:25:00 Test Item Value Reference Range Interpretation Comments MPV (test code = MPV) 7.2 7.4-10.4 [facility] CenterNmrlwtxJKWZFSTKJE5042-80-87 18:25:00 Test Item Value Reference Range Interpretation Comments MCHC (test code = MCHC) 33.0 32.0-36.0 [facility] CenterDrotbweQEKZJEYYOL4243-24-63 18:25:00 Test Item Value Reference Range Interpretation Comments RDW (test code = RDW) 14.0 11.5-14.5 [facility] CenterDsfqbwbKBARFQCJAD5854-68-20 18:25:00 Test Item Value Reference Range Interpretation Comments Platelet (test code = Platelet) 278 133-450 [facility] CenterKpkxmtvJJFJHPJTTT1279-13-36 18:25:00 Test Item Value Reference Range Interpretation Comments MCH (test code = MCH) 29.0 pg 27.0-31.0 [facility] CenterPktraoxLWPVALTFRH0686-35-77 18:25:00 Test Item Value Reference Range Interpretation Comments MCV (test code = MCV) 87.9 80.0-98.0 [facility] CenterXogjoedENGUCLJXSL4935-70-48 18:25:00 Test Item Value Reference Range Interpretation Comments Hct (test code = Hct) 39.7 36.0-48.0 [facility]OhukyvxVQPMFXZQCDWX2315-38-64 18:25:00 Test Item Value Reference Range Interpretation Comments Glucose Lvl (test code = Glucose Lvl) 108 70-99 [facility] CenterFqosbsiQUTNTIBGCF0383-92-45 18:25:00 Test Item Value Reference Range Interpretation Comments Eosinophils (test code = 2.2 See_Comment [A utomated message] The Eosinophils) system which ge nerated this result tra nsmitted reference range : <=4.0. The reference r robbie was not used to int erpret this result as normal/abnormal . [facility] CenterMalrtkxWQRYLYCTQI3070-30-39 18:25:00 Test Item Value Reference Range Interpretation Comments Segs-Bands # (test code = Segs-Bands #) 2.8 1.5-8.1 [facility] CenterWucvfbdWKWVZSDCSO0071-62-94 18:25:00 Test Item Value Reference Range Interpretation Comments Basophils (test code = 0.9 See_Comment [Aut omated message] The Basophils) system which ge nerated this result tra nsmitted reference range : <=1.0. The reference r robbie was not used to int erpret this result as normal/abnormal . [facility] CenterMqrpmzmYFXUDJIYXU5058-06-76 18:25:00 Test Item Value Reference Range Interpretation Comments Lymphocytes # (test code = Lymphocytes 2.1 1.0-5.5 #) [facility] CenterVzdjzwcZVHSDZFFNH0049-21-96 18:25:00 Test Item Value Reference Range Interpretation Comments Segs (test code = Segs) 52.3 45.0-75.0 [facility] CenterFtmehagTGJWBEFAGI3805-12-79 18:25:00 Test Item Value Reference Range Interpretation Comments Lymphocytes (test code = Lymphocytes) 38.0 20.0-40.0 [facility] CenterOndixhnARVMFWSLVL8939-01-81 18:25:00 Test Item Value Reference Range Interpretation Comments Monocytes (test code = Monocytes) 6.6 2.0-12.0 [facility] CenterNaoorphDWPSCCPGFO5842-13-73 18:25:00 Test Item Value Reference Range Interpretation Comments Basophils # (test code 0.1 See_Comment [Aut omated message] The = Basophils #) system which generated this result tra nsmitted reference range : <=0.2. The reference r robbie was not used to int erpret this result as normal/abnormal . [facility] CenterFndmpqqFPHNKVVHIY0207-60-85 18:25:00 Test Item Value Reference Range Interpretation Comments Eosinophils # (test code 0.1 See_Comment [A utomated message] The = Eosinophils #) system whic h generated this result tra nsmitted reference range : <=0.5. The reference r robbie was not used to int erpret this result as normal/abnormal . [facility] CenterQpcdiscLSEZFKETXU7677-57-28 18:25:00 Test Item Value Reference Range Interpretation Comments Monocytes # (test code 0.4 See_Comment [Aut omated message] The = Monocytes #) system which generated this result tra nsmitted reference range : <=0.8. The reference r robbie was not used to int erpret this result as normal/abnormal . [facility] SystemPuoqdqhGATEWVQHZOOI6309-82-27 18:25:00 Test Item Value Reference Range Interpretation Comments AGAP (test code = AGAP) 11.4 10.0-20.0 [facility] CenterTobrwplLMEWJYXFFK6184-72-86 18:25:00 Test Item Value Reference Range Interpretation Comments INR (test code = INR) 1.10 0.85-1.17 [facility] CenterIhenvvrRXKBZZSDEM2507-67-84 18:25:00 Test Item Value Reference Range Interpretation Comments PT (test code = PT) 14.4 s 12.0-14.7 [facility] CenterPiqmnctXBWRWDFBEM1236-44-83 18:25:00 Test Item Value Reference Range Interpretation Comments PTT (test code = PTT) 30.3 s 22.9-35.8 [facility] CenterNkztpogRLPXHYYBXJ5834-54-15 18:25:00 Test Item Value Reference Range Interpretation Comments Hgb (test code = Hgb) 13.1 12.0-16.0 [place] [address]-03-06 18:25:00 Test Item Value Reference Range Interpretation Comments RBC (test code = RBC) 4.51 4.20-5.40 [facility] CenterTtftsqxTNUGIWLCKN8526-54-35 18:25:00 Test Item Value Reference Range Interpretation Comments WBC (test code = WBC) 5.4 3.7-10.4 [facility] CenterQmoalibAAWYVBALBN4608-47-77 18:25:00 Test Item Value Reference Range Interpretation Comments MPV (test code = MPV) 7.2 7.4-10.4 [place] [address]-03-06 18:25:00 Test Item Value Reference Range Interpretation Comments MCHC (test code = MCHC) 33.0 32.0-36.0 [facility] CenterDtznbxuPTLQYZJUQJ8602-13-42 18:25:00 Test Item Value Reference Range Interpretation Comments RDW (test code = RDW) 14.0 11.5-14.5 [facility] CenterNexbsmoWFZIDCYEDH7710-12-00 18:25:00 Test Item Value Reference Range Interpretation Comments Platelet (test code = Platelet) 278 133-450 [facility] CenterBithqzaQDGGCLFHRI8872-47-63 18:25:00 Test Item Value Reference Range Interpretation Comments MCH (test code = MCH) 29.0 pg 27.0-31.0 [facility] CenterUtmeeqxDXLPTOFXXB6639-30-96 18:25:00 Test Item Value Reference Range Interpretation Comments MCV (test code = MCV) 87.9 80.0-98.0 [facility] CenterYqombcqNEZZJUDNTC7263-88-85 18:25:00 Test Item Value Reference Range Interpretation Comments Hct (test code = Hct) 39.7 36.0-48.0 [facility] CenterUrobzvlSZLJPASFXK7775-46-32 18:25:00 Test Item Value Reference Range Interpretation Comments Eosinophils (test code = 2.2 See_Comment [A utomated message] The Eosinophils) system which ge nerated this result tra nsmitted reference range : <=4.0. The reference r robbie was not used to int erpret this result as normal/abnormal . [facility] CenterLdfkccjJXCMELMGXV5984-05-72 18:25:00 Test Item Value Reference Range Interpretation Comments Segs-Bands # (test code = Segs-Bands #) 2.8 1.5-8.1 [facility] CenterUdlupmaPWNOEGVMWF7226-06-44 18:25:00 Test Item Value Reference Range Interpretation Comments Basophils (test code = 0.9 See_Comment [Aut omated message] The Basophils) system which ge nerated this result tra nsmitted reference range : <=1.0. The reference r robbie was not used to int erpret this result as normal/abnormal . [facility] CenterVjfamknIKFNWWXQOY2677-38-71 18:25:00 Test Item Value Reference Range Interpretation Comments Lymphocytes # (test code = Lymphocytes 2.1 1.0-5.5 #) [facility] CenterAagvcspPFWQRMAOBV7822-18-89 18:25:00 Test Item Value Reference Range Interpretation Comments Segs (test code = Segs) 52.3 45.0-75.0 [facility] CenterDhevmkxIVROJRDWQE8499-01-72 18:25:00 Test Item Value Reference Range Interpretation Comments Lymphocytes (test code = Lymphocytes) 38.0 20.0-40.0 [facility] CenterTwmwechCZAMUQRQIV7983-37-37 18:25:00 Test Item Value Reference Range Interpretation Comments Monocytes (test code = Monocytes) 6.6 2.0-12.0 [facility] CenterKfsgfugOPMAZGEFXL9315-30-50 18:25:00 Test Item Value Reference Range Interpretation Comments Basophils # (test code 0.1 See_Comment [Aut omated message] The = Basophils #) system which generated this result tra nsmitted reference range : <=0.2. The reference r robbie was not used to int erpret this result as normal/abnormal . [facility] CenterQxicipiVKOFHEKQXU3026-98-31 18:25:00 Test Item Value Reference Range Interpretation Comments Eosinophils # (test code 0.1 See_Comment [A utomated message] The = Eosinophils #) system whic h generated this result tra nsmitted reference range : <=0.5. The reference r robbie was not used to int erpret this result as normal/abnormal . [facility] CenterIzqouhcVYEHRGNOSN2111-15-12 18:25:00 Test Item Value Reference Range Interpretation Comments Monocytes # (test code 0.4 See_Comment [Aut omated message] The = Monocytes #) system which generated this result tra nsmitted reference range : <=0.8. The reference r robbie was not used to int erpret this result as normal/abnormal . [facility] [employer] DIKFJGI8721-86-73 18:25:00 Test Item Value Reference Range Interpretation Comments ABO/Rh (test code = ABO/Rh) O POS [facility] [employer] SDVZWHM8428-70-98 18:25:00 Test Item Value Reference Range Interpretation Comments Antibody Scrn (test Negative (10/28/16 12:25 code = Antibody Scrn) PM) [facility] [employer] TABIW4596-00-47 18:25:00 Test Item Value Reference Range Interpretation Comments Magnesium Lvl (test code = Magnesium 1.9 1.8-2.4 Lvl) [facility] DgrxttuPFTEYCJBSBXW5873-59-59 18:25:00 Test Item Value Reference Range Interpretation Comments Potassium Lvl (test code = Potassium 4.4 3.5-5.1 Lvl) [facility] SystemVxjosapKMSTPXONWFRG8223-64-30 18:25:00 Test Item Value Reference Range Interpretation Comments Calcium Lvl (test code = Calcium Lvl) 9.4 8.5-10.5 [facility] [employer] EONRT4361-95-22 08:58:00 Test Item Value Reference Range Interpretation Comments Phosphorus (test code = Phosphorus) 2.9 2.5-4.5 [facility] [employer] KODQU2516-89-76 08:58:00 Test Item Value Reference Range Interpretation Comments Magnesium Lvl (test code = Magnesium 2.4 1.8-2.4 Lvl) [facility] YsmxsptBUYHYUVQRBQT2826-54-57 08:58:00 Test Item Value Reference Range Interpretation Comments Sodium Lvl (test code = Sodium Lvl) 139 135-145 [facility] SystemKekukvkLCJLSMRLRQQU8891-17-87 08:58:00 Test Item Value Reference Range Interpretation Comments Creatinine Lvl (test code = Creatinine 1.14 0.50-1.40 Lvl) [facility] SystemLnaaieiNGPXTYSAWWEF6586-82-18 08:58:00 Test Item Value Reference Range Interpretation Comments Chloride Lvl (test code = Chloride Lvl) 104 95-109 [facility] SystemWxbfkzkBFCJVTFCKEPB4702-88-27 08:58:00 Test Item Value Reference Range Interpretation Comments CO2 (test code = CO2) 28 24-32 [facility] HealthcareKinwtwzBWPJKAZCQEIB8728-13-30 08:58:00 Test Item Value Reference Range Interpretation Comments Calcium Lvl (test code = Calcium Lvl) 8.7 8.5-10.5 [facility] HealthcareAwsodngMCZQQGUMKBMA5494-97-27 08:58:00 Test Item Value Reference Range Interpretation Comments Potassium Lvl (test code = Potassium 4.8 3.5-5.1 Lvl) [facility] HealthcareEeaqvhdOPQYWZMSVOVN5983-67-69 08:58:00 Test Item Value Reference Range Interpretation Comments AGAP (test code = AGAP) 11.8 10.0-20.0 [facility] HealthcareHmggewxCJMKFBNFHVBL2544-15-13 08:58:00 Test Item Value Reference Range Interpretation Comments eGFR (test code = eGFR) 45 [facility] HealthcareDqrxgncORIZLFONGBMU4171-45-96 08:58:00 Test Item Value Reference Range Interpretation Comments BUN (test code = BUN) 25 7-22 [facility] HealthcareEsoiiquPUOIZIHDHMSR6318-27-72 08:58:00 Test Item Value Reference Range Interpretation Comments Glucose Lvl (test code = Glucose Lvl) 113 70-99 [facility] CenterKvzjkboUDMWBCTXWJ7794-33-76 08:58:00 Test Item Value Reference Range Interpretation Comments MPV (test code = MPV) 7.8 7.4-10.4 [facility] CenterKjplbejDBVWOMDMNT9043-02-68 08:58:00 Test Item Value Reference Range Interpretation Comments Platelet (test code = Platelet) 301 133-450 [facility] CenterInlukhtONWSHOMQHL6072-35-44 08:58:00 Test Item Value Reference Range Interpretation Comments RDW (test code = RDW) 14.1 11.5-14.5 [facility] CenterZtlxpnvYJIEEVVFBJ4371-35-26 08:58:00 Test Item Value Reference Range Interpretation Comments MCH (test code = MCH) 29.9 pg 27.0-31.0 [facility] CenterTkfrnojEMJXZLICFS9905-13-54 08:58:00 Test Item Value Reference Range Interpretation Comments MCV (test code = MCV) 89.6 80.0-98.0 [facility] CenterHlffcglXWXUWRRFDS0221-12-18 08:58:00 Test Item Value Reference Range Interpretation Comments MCHC (test code = MCHC) 33.4 32.0-36.0 [facility] CenterDtgvjvzTLCCIKRNBT4690-35-76 08:58:00 Test Item Value Reference Range Interpretation Comments Hct (test code = Hct) 34.3 36.0-48.0 [facility] CenterGgbpwuoMKGUQTPBJO9535-87-42 08:58:00 Test Item Value Reference Range Interpretation Comments Hgb (test code = Hgb) 11.5 12.0-16.0 [facility] CenterUzejprzGHPLYLGZXZ3333-13-80 08:58:00 Test Item Value Reference Range Interpretation Comments RBC (test code = RBC) 3.83 4.20-5.40 [facility] CenterTeiyvrvIBZGOWHWUK9000-56-44 08:58:00 Test Item Value Reference Range Interpretation Comments WBC (test code = WBC) 8.2 3.7-10.4 [facility] CenterDvvczatLENZSQTEEM5128-30-66 08:58:00 Test Item Value Reference Range Interpretation Comments Lymphocytes # (test code = Lymphocytes 1.9 1.0-5.5 #) [facility] CenterWnvyvimSQJSITTTMW9073-56-74 08:58:00 Test Item Value Reference Range Interpretation Comments Segs-Bands # (test code = Segs-Bands #) 5.5 1.5-8.1 [facility] CenterUlmyxcsBBBDLUCGRY6330-60-02 08:58:00 Test Item Value Reference Range Interpretation Comments Eosinophils (test code = 1.4 See_Comment [A utomated message] The Eosinophils) system which ge nerated this result tra nsmitted reference range : <=4.0. The reference r robbie was not used to int erpret this result as normal/abnormal . [facility] CenterAqotwrtKZTKEBOPBP6802-15-56 08:58:00 Test Item Value Reference Range Interpretation Comments Basophils (test code = 0.5 See_Comment [Aut omated message] The Basophils) system which ge nerated this result tra nsmitted reference range : <=1.0. The reference r robbie was not used to int erpret this result as normal/abnormal . [facility] CenterXemywvoWIVFQCPCXF7792-81-05 08:58:00 Test Item Value Reference Range Interpretation Comments Monocytes (test code = Monocytes) 9.1 2.0-12.0 [facility] CenterRygaeckDTYOIPQRVI6235-62-41 08:58:00 Test Item Value Reference Range Interpretation Comments Segs (test code = Segs) 66.2 45.0-75.0 [facility] CenterUatxpjtIWDBYCTNUB5019-51-34 08:58:00 Test Item Value Reference Range Interpretation Comments Lymphocytes (test code = Lymphocytes) 22.8 20.0-40.0 [facility] CenterYtlyosfJKCUQJQQUK8020-70-53 08:58:00 Test Item Value Reference Range Interpretation Comments Eosinophils # (test code 0.1 See_Comment [A utomated message] The = Eosinophils #) system whic h generated this result tra nsmitted reference range : <=0.5. The reference r robbie was not used to int erpret this result as normal/abnormal . [facility] CenterKwihrydOEXKGCGEHR3876-55-39 08:58:00 Test Item Value Reference Range Interpretation Comments Monocytes # (test code 0.7 See_Comment [Aut omated message] The = Monocytes #) system which generated this result tra nsmitted reference range : <=0.8. The reference r robbie was not used to int erpret this result as normal/abnormal . [facility] PBDIL9961-23-97 08:58:00 Test Item Value Reference Range Interpretation Comments Phosphorus (test code = Phosphorus) 2.9 2.5-4.5 [facility] JGCFA6910-48-59 08:58:00 Test Item Value Reference Range Interpretation Comments Magnesium Lvl (test code = Magnesium 2.4 1.8-2.4 Lvl) [facility] HealthcareSodovqePIXLDFRCLRKL0238-81-59 08:58:00 Test Item Value Reference Range Interpretation Comments Sodium Lvl (test code = Sodium Lvl) 139 135-145 [facility] HealthcareNzetitxSWGFEPKFJEDP7480-03-75 08:58:00 Test Item Value Reference Range Interpretation Comments Creatinine Lvl (test code = Creatinine 1.14 0.50-1.40 Lvl) [facility] HealthcareBxdkdgzZYUPMLIGEEBK9769-39-64 08:58:00 Test Item Value Reference Range Interpretation Comments Chloride Lvl (test code = Chloride Lvl) 104 95-109 [facility] HealthcareHslhwulDJAEEVJQTNDF6738-84-18 08:58:00 Test Item Value Reference Range Interpretation Comments CO2 (test code = CO2) 28 24-32 [facility] HealthcarePdloxhlGZGRUEBSCKAC7341-80-42 08:58:00 Test Item Value Reference Range Interpretation Comments Calcium Lvl (test code = Calcium Lvl) 8.7 8.5-10.5 [facility] HealthcareOuanbfnSOQZKMMAXTAF1034-27-66 08:58:00 Test Item Value Reference Range Interpretation Comments Potassium Lvl (test code = Potassium 4.8 3.5-5.1 Lvl) [facility]XxnljjkFNVISUUFDSUN8683-43-61 08:58:00 Test Item Value Reference Range Interpretation Comments AGAP (test code = AGAP) 11.8 10.0-20.0 [facility] HealthcareFnjgexfSHBXUBIUTCAE2220-28-26 08:58:00 Test Item Value Reference Range Interpretation Comments eGFR (test code = eGFR) 45 [facility] HealthcareVrngfliFJCVLZADWFWX6125-96-49 08:58:00 Test Item Value Reference Range Interpretation Comments BUN (test code = BUN) 25 7-22 [facility] HealthcareKvdiughSBOJEIMMWQQS0655-77-39 08:58:00 Test Item Value Reference Range Interpretation Comments Glucose Lvl (test code = Glucose Lvl) 113 70-99 [facility]UtfcxcbHNHGRLTXAW4707-53-43 08:58:00 Test Item Value Reference Range Interpretation Comments MPV (test code = MPV) 7.8 7.4-10.4 [facility] CenterEpcexfxEDWVFPBQXX8978-68-57 08:58:00 Test Item Value Reference Range Interpretation Comments Platelet (test code = Platelet) 301 133-450 [facility] CenterTfzbkfdJZGALLNBDR3428-55-74 08:58:00 Test Item Value Reference Range Interpretation Comments RDW (test code = RDW) 14.1 11.5-14.5 [facility] CenterReikoapNYQDMKADVD3185-56-36 08:58:00 Test Item Value Reference Range Interpretation Comments MCH (test code = MCH) 29.9 pg 27.0-31.0 [facility] CenterCybswgrMIDHNZTOHP2711-48-10 08:58:00 Test Item Value Reference Range Interpretation Comments MCV (test code = MCV) 89.6 80.0-98.0 [facility] CenterKsvikpnMZGRWHAJOV5166-48-58 08:58:00 Test Item Value Reference Range Interpretation Comments MCHC (test code = MCHC) 33.4 32.0-36.0 [facility] CenterNzxkkngEHICUWHBEI5104-63-40 08:58:00 Test Item Value Reference Range Interpretation Comments Hct (test code = Hct) 34.3 36.0-48.0 [facility] CenterTfilfkyJZMHXARYGL5924-13-57 08:58:00 Test Item Value Reference Range Interpretation Comments Hgb (test code = Hgb) 11.5 12.0-16.0 [facility] CenterLrhrbzvBDAAJEMLAF5478-85-45 08:58:00 Test Item Value Reference Range Interpretation Comments RBC (test code = RBC) 3.83 4.20-5.40 [facility] CenterTgqjueeWFFOXPOMLG4261-70-78 08:58:00 Test Item Value Reference Range Interpretation Comments WBC (test code = WBC) 8.2 3.7-10.4 [facility] CenterHaigkvnHFFLVQTWAH0149-26-84 08:58:00 Test Item Value Reference Range Interpretation Comments Lymphocytes # (test code = Lymphocytes 1.9 1.0-5.5 #) [facility] CenterIiytvxxRBMMIVYVFT1338-20-43 08:58:00 Test Item Value Reference Range Interpretation Comments Segs-Bands # (test code = Segs-Bands #) 5.5 1.5-8.1 [facility] CenterYywnatwYYADXCCOZJ7730-65-41 08:58:00 Test Item Value Reference Range Interpretation Comments Eosinophils (test code = 1.4 See_Comment [A utomated message] The Eosinophils) system which ge nerated this result tra nsmitted reference range : <=4.0. The reference r robbie was not used to int erpret this result as normal/abnormal . [facility] CenterFelewavMNTUVXGCVS4830-62-13 08:58:00 Test Item Value Reference Range Interpretation Comments Basophils (test code = 0.5 See_Comment [Aut omated message] The Basophils) system which ge nerated this result tra nsmitted reference range : <=1.0. The reference r robbie was not used to int erpret this result as normal/abnormal . [facility] CenterZhslfpcLESXPGNBZK5154-46-57 08:58:00 Test Item Value Reference Range Interpretation Comments Monocytes (test code = Monocytes) 9.1 2.0-12.0 [facility] CenterCnjkebyEWNIONGMLL2362-15-09 08:58:00 Test Item Value Reference Range Interpretation Comments Segs (test code = Segs) 66.2 45.0-75.0 [facility] CenterIehwqplAPKFCYBTEZ8720-99-97 08:58:00 Test Item Value Reference Range Interpretation Comments Lymphocytes (test code = Lymphocytes) 22.8 20.0-40.0 [facility] CenterJmwguzsEKOWCUQUZM8630-57-04 08:58:00 Test Item Value Reference Range Interpretation Comments Eosinophils # (test code 0.1 See_Comment [A utomated message] The = Eosinophils #) system whic h generated this result tra nsmitted reference range : <=0.5. The reference r robbie was not used to int erpret this result as normal/abnormal . [facility] CenterDkiksocJAOKACBMIV3903-51-24 08:58:00 Test Item Value Reference Range Interpretation Comments Monocytes # (test code 0.7 See_Comment [Aut omated message] The = Monocytes #) system which generated this result tra nsmitted reference range : <=0.8. The reference r robbie was not used to int erpret this result as normal/abnormal . [facility]2016-09-01 09:58:00 Test Item Value Reference Range Interpretation Comments Phosphorus (test code = Phosphorus) 3.7 2.5-4.5 [facility]2016-09-01 09:58:00 Test Item Value Reference Range Interpretation Comments Magnesium Lvl (test code = Magnesium 2.1 1.8-2.4 Lvl) [facility]2016-09-01 09:58:00 Test Item Value Reference Range Interpretation Comments eGFR (test code = eGFR) 42 [facility]2016-09-01 09:58:00 Test Item Value Reference Range Interpretation Comments AGAP (test code = AGAP) 12.9 10.0-20.0 [facility]2016-09-01 09:58:00 Test Item Value Reference Range Interpretation Comments Chloride Lvl (test code = Chloride Lvl) 104 95-109 [facility]2016-09-01 09:58:00 Test Item Value Reference Range Interpretation Comments CO2 (test code = CO2) 25 24-32 [facility]2016-09-01 09:58:00 Test Item Value Reference Range Interpretation Comments Calcium Lvl (test code = Calcium Lvl) 8.5 8.5-10.5 [facility]2016-09-01 09:58:00 Test Item Value Reference Range Interpretation Comments Potassium Lvl (test code = Potassium 3.9 3.5-5.1 Lvl) [facility]2016-09-01 09:58:00 Test Item Value Reference Range Interpretation Comments Creatinine Lvl (test code = Creatinine 1.22 0.50-1.40 Lvl) [facility]2016-09-01 09:58:00 Test Item Value Reference Range Interpretation Comments Sodium Lvl (test code = Sodium Lvl) 138 135-145 [facility]2016-09-01 09:58:00 Test Item Value Reference Range Interpretation Comments BUN (test code = BUN) 24 7-22 [facility]2016-09-01 09:58:00 Test Item Value Reference Range Interpretation Comments Glucose Lvl (test code = Glucose Lvl) 92 70-99 [facility]2016-09-01 09:58:00 Test Item Value Reference Range Interpretation Comments Phosphorus (test code = Phosphorus) 3.7 2.5-4.5 [facility]2016-09-01 09:58:00 Test Item Value Reference Range Interpretation Comments Magnesium Lvl (test code = Magnesium 2.1 1.8-2.4 Lvl) [facility]2016-09-01 09:58:00 Test Item Value Reference Range Interpretation Comments eGFR (test code = eGFR) 42 [facility]2016-09-01 09:58:00 Test Item Value Reference Range Interpretation Comments AGAP (test code = AGAP) 12.9 10.0-20.0 [facility]2016-09-01 09:58:00 Test Item Value Reference Range Interpretation Comments Chloride Lvl (test code = Chloride Lvl) 104 95-109 [facility]2016-09-01 09:58:00 Test Item Value Reference Range Interpretation Comments CO2 (test code = CO2) 25 24-32 [facility]2016-09-01 09:58:00 Test Item Value Reference Range Interpretation Comments Calcium Lvl (test code = Calcium Lvl) 8.5 8.5-10.5 [facility]2016-09-01 09:58:00 Test Item Value Reference Range Interpretation Comments Potassium Lvl (test code = Potassium 3.9 3.5-5.1 Lvl) [facility]2016-09-01 09:58:00 Test Item Value Reference Range Interpretation Comments Creatinine Lvl (test code = Creatinine 1.22 0.50-1.40 Lvl) [facility]2016-09-01 09:58:00 Test Item Value Reference Range Interpretation Comments Sodium Lvl (test code = Sodium Lvl) 138 135-145 [facility]2016-09-01 09:58:00 Test Item Value Reference Range Interpretation Comments BUN (test code = BUN) 24 7-22 [facility]2016-09-01 09:58:00 Test Item Value Reference Range Interpretation Comments Glucose Lvl (test code = Glucose Lvl) 92 70-99 [facility]2016-08-31 14:11:00 Test Item Value Reference Range Interpretation Comments Aldosterone (test code = Aldosterone) no gt [facility]2016-08-31 14:11:00 Test Item Value Reference Range Interpretation Comments Aldosterone (test code = Aldosterone) no gt [place] [id number] 13:47:00 Test Item Value Reference Range Interpretation Comments Cortisol (test code = Cortisol) 8.6 [place] 706426-08-31 13:47:00 Test Item Value Reference Range Interpretation Comments Cortisol (test code = Cortisol) 8.6 [facility]2016-08-31 07:59:00 Test Item Value Reference Range Interpretation Comments Phosphorus (test code = Phosphorus) 3.3 2.5-4.5 [facility]2016-08-31 07:59:00 Test Item Value Reference Range Interpretation Comments Magnesium Lvl (test code = Magnesium 1.8 1.8-2.4 Lvl) [facility] HealthcareZafsgdyUPPNKRMAESSN8076-31-28 07:59:00 Test Item Value Reference Range Interpretation Comments AGAP (test code = AGAP) 11.2 10.0-20.0 [facility] HealthcareWdgclkwPSEPBUXZOIDR3184-20-65 07:59:00 Test Item Value Reference Range Interpretation Comments eGFR (test code = eGFR) 49 [facility] HealthcareLbsbzcyANHSRGMXROMG0818-61-02 07:59:00 Test Item Value Reference Range Interpretation Comments Calcium Lvl (test code = Calcium Lvl) 8.4 8.5-10.5 [facility] HealthcarePovybhkDFSVCXPMDDKR6213-25-46 07:59:00 Test Item Value Reference Range Interpretation Comments Potassium Lvl (test code = Potassium 4.2 3.5-5.1 Lvl) [facility] HealthcareTssqtblNTPJTEPUDRWL6196-36-38 07:59:00 Test Item Value Reference Range Interpretation Comments Chloride Lvl (test code = Chloride Lvl) 105 95-109 [facility] HealthcareNyuqqtbRKONWBCOQFCV6512-28-46 07:59:00 Test Item Value Reference Range Interpretation Comments CO2 (test code = CO2) 28 24-32 [facility] HealthcareRocqlvbNJYKNEKEXJMO9777-36-85 07:59:00 Test Item Value Reference Range Interpretation Comments BUN (test code = BUN) 22 7-22 [facility] HealthcarePnjxqabTKYCYHFLPKUQ8170-40-05 07:59:00 Test Item Value Reference Range Interpretation Comments Glucose Lvl (test code = Glucose Lvl) 109 70-99 [facility] HealthcareDnhqmhqYITOGGZAPGWL9942-70-04 07:59:00 Test Item Value Reference Range Interpretation Comments Creatinine Lvl (test code = Creatinine 1.07 0.50-1.40 Lvl) [facility] HealthcareRmkmbtjDHVEEFCYQUJO6514-11-80 07:59:00 Test Item Value Reference Range Interpretation Comments Sodium Lvl (test code = Sodium Lvl) 140 135-145 [facility] CenterVsdzmdnRWQUWMFDJW8517-83-89 07:59:00 Test Item Value Reference Range Interpretation Comments WBC (test code = WBC) 7.3 3.7-10.4 [facility] CenterAqwjuuoFIBTAUNPBO9924-51-43 07:59:00 Test Item Value Reference Range Interpretation Comments MCH (test code = MCH) 29.6 pg 27.0-31.0 [facility] CenterEzaazpcENPKGAPJYF9571-29-74 07:59:00 Test Item Value Reference Range Interpretation Comments MCV (test code = MCV) 88.9 80.0-98.0 [facility] CenterVnbuxouNSVXFMDAMR0117-00-67 07:59:00 Test Item Value Reference Range Interpretation Comments Hct (test code = Hct) 36.7 36.0-48.0 [facility] CenterGvbdnneFQOQCHPJCQ4829-39-10 07:59:00 Test Item Value Reference Range Interpretation Comments Hgb (test code = Hgb) 12.2 12.0-16.0 [facility] CenterJgxdsxjYCEPXVQKYT7527-46-32 07:59:00 Test Item Value Reference Range Interpretation Comments RBC (test code = RBC) 4.12 4.20-5.40 [facility] CenterFsmklhjCKIIYODXPP8970-01-38 07:59:00 Test Item Value Reference Range Interpretation Comments MPV (test code = MPV) 7.3 7.4-10.4 [facility] CenterBoozuwrWXZRSOXNMF0030-50-44 07:59:00 Test Item Value Reference Range Interpretation Comments Platelet (test code = Platelet) 290 133-450 [facility] CenterYquvfawZIDMSBQSKW1700-80-31 07:59:00 Test Item Value Reference Range Interpretation Comments RDW (test code = RDW) 13.8 11.5-14.5 [facility] CenterFqtzzdlAUDLYXCJHI9226-33-65 07:59:00 Test Item Value Reference Range Interpretation Comments MCHC (test code = MCHC) 33.3 32.0-36.0 [facility] CenterVermdzzYMYSYOORBV9211-01-52 07:59:00 Test Item Value Reference Range Interpretation Comments Lymphocytes # (test code = Lymphocytes 1.6 1.0-5.5 #) [facility] CenterIwxwbqqODVEABHRRX5368-56-88 07:59:00 Test Item Value Reference Range Interpretation Comments Segs-Bands # (test code = Segs-Bands #) 4.8 1.5-8.1 [facility] CenterRbnqveiNHYALMYYRM3293-94-65 07:59:00 Test Item Value Reference Range Interpretation Comments Eosinophils # (test code 0.2 See_Comment [A utomated message] The = Eosinophils #) system whic h generated this result tra nsmitted reference range : <=0.5. The reference r robbie was not used to int erpret this result as normal/abnormal . [facility] CenterMpbznxbIRPFCYFGEQ0062-14-98 07:59:00 Test Item Value Reference Range Interpretation Comments Monocytes # (test code 0.7 See_Comment [Aut omated message] The = Monocytes #) system which generated this result tra nsmitted reference range : <=0.8. The reference r robbie was not used to int erpret this result as normal/abnormal . [facility] CenterPczgwzgPOPXFTLJKX8215-31-94 07:59:00 Test Item Value Reference Range Interpretation Comments Basophils # (test code 0.1 See_Comment [Aut omated message] The = Basophils #) system which generated this result tra nsmitted reference range : <=0.2. The reference r robbie was not used to int erpret this result as normal/abnormal . [facility] CenterUhngvjaBKWIVOXLJE4099-46-22 07:59:00 Test Item Value Reference Range Interpretation Comments Lymphocytes (test code = Lymphocytes) 21.7 20.0-40.0 [facility] CenterIiexmkqADIPEXPVUN0012-75-77 07:59:00 Test Item Value Reference Range Interpretation Comments Segs (test code = Segs) 65.6 45.0-75.0 [facility] CenterTiulrltMJHCTAKQVB3813-75-40 07:59:00 Test Item Value Reference Range Interpretation Comments Basophils (test code = 0.8 See_Comment [Aut omated message] The Basophils) system which ge nerated this result tra nsmitted reference range : <=1.0. The reference r robbie was not used to int erpret this result as normal/abnormal . [facility] CenterSekctaiTJXTQVEIWY3819-40-89 07:59:00 Test Item Value Reference Range Interpretation Comments Eosinophils (test code = 2.1 See_Comment [A utomated message] The Eosinophils) system which ge nerated this result tra nsmitted reference range : <=4.0. The reference r robbie was not used to int erpret this result as normal/abnormal . [facility] CenterUhaucfzBIGXPEOJWA4953-39-84 07:59:00 Test Item Value Reference Range Interpretation Comments Monocytes (test code = Monocytes) 9.8 2.0-12.0 [facility] KVFNG4197-16-20 07:59:00 Test Item Value Reference Range Interpretation Comments Phosphorus (test code = Phosphorus) 3.3 2.5-4.5 [facility] CKRXF5876-01-83 07:59:00 Test Item Value Reference Range Interpretation Comments Magnesium Lvl (test code = Magnesium 1.8 1.8-2.4 Lvl) [facility] HealthcareTnvqqefRHNWMUDAJVJV5696-51-22 07:59:00 Test Item Value Reference Range Interpretation Comments AGAP (test code = AGAP) 11.2 10.0-20.0 [facility] HealthcareGmhmqeyBYJKCPCGGEUF6583-33-70 07:59:00 Test Item Value Reference Range Interpretation Comments eGFR (test code = eGFR) 49 [facility] HealthcareFqdhcjmDNTYFIQDEIJG5032-60-44 07:59:00 Test Item Value Reference Range Interpretation Comments Calcium Lvl (test code = Calcium Lvl) 8.4 8.5-10.5 [facility] HealthcareIpnwcwsLXWELBDOZNYN2577-86-88 07:59:00 Test Item Value Reference Range Interpretation Comments Potassium Lvl (test code = Potassium 4.2 3.5-5.1 Lvl) [facility] HealthcareQfqtacoUZLYHJGEUFSP5553-43-70 07:59:00 Test Item Value Reference Range Interpretation Comments Chloride Lvl (test code = Chloride Lvl) 105 95-109 [facility] HealthcareVodubkfYYMCMLTEUGPA8645-44-97 07:59:00 Test Item Value Reference Range Interpretation Comments CO2 (test code = CO2) 28 24-32 [facility] HealthcareGlcdanfYRTHMZHNHYHO5738-16-79 07:59:00 Test Item Value Reference Range Interpretation Comments BUN (test code = BUN) 22 7-22 [facility] HealthcareKgcdsbkOUFLTTTIZPBH8535-07-88 07:59:00 Test Item Value Reference Range Interpretation Comments Glucose Lvl (test code = Glucose Lvl) 109 70-99 [facility] HealthcareWxbimxeZJLIHNQTYFUJ8737-16-61 07:59:00 Test Item Value Reference Range Interpretation Comments Creatinine Lvl (test code = Creatinine 1.07 0.50-1.40 Lvl) [facility] HealthcareCfsjtfpUDNAKFUQEMLT2007-79-28 07:59:00 Test Item Value Reference Range Interpretation Comments Sodium Lvl (test code = Sodium Lvl) 140 135-145 [facility] CenterBvfjvrzJEAYNGKEGJ4246-69-08 07:59:00 Test Item Value Reference Range Interpretation Comments WBC (test code = WBC) 7.3 3.7-10.4 [facility] CenterYjahwtoLMTLRBVQBW7594-04-19 07:59:00 Test Item Value Reference Range Interpretation Comments MCH (test code = MCH) 29.6 pg 27.0-31.0 [facility] CenterJihkjxlARKHQTUPKH7309-74-07 07:59:00 Test Item Value Reference Range Interpretation Comments MCV (test code = MCV) 88.9 80.0-98.0 [facility] CenterCulroopKORHJESJXW6665-33-56 07:59:00 Test Item Value Reference Range Interpretation Comments Hct (test code = Hct) 36.7 36.0-48.0 [facility] CenterWyfryblEZKQEZBEQC5654-65-14 07:59:00 Test Item Value Reference Range Interpretation Comments Hgb (test code = Hgb) 12.2 12.0-16.0 [facility] CenterJguwakjHETXSEKLOC6302-76-26 07:59:00 Test Item Value Reference Range Interpretation Comments RBC (test code = RBC) 4.12 4.20-5.40 [facility] CenterLvkaunoLELKNYGUFH4806-95-04 07:59:00 Test Item Value Reference Range Interpretation Comments MPV (test code = MPV) 7.3 7.4-10.4 [facility] CenterLhuqtbiBOSMDWSAWS1163-65-83 07:59:00 Test Item Value Reference Range Interpretation Comments Platelet (test code = Platelet) 290 133-450 [facility] CenterOrkgblpZBJQRBDMBJ7798-72-33 07:59:00 Test Item Value Reference Range Interpretation Comments RDW (test code = RDW) 13.8 11.5-14.5 [facility] CenterRlpsmbhFADMZCLDEB3637-35-95 07:59:00 Test Item Value Reference Range Interpretation Comments MCHC (test code = MCHC) 33.3 32.0-36.0 [facility] CenterMmkrqobPSRFSGLZRP6382-09-62 07:59:00 Test Item Value Reference Range Interpretation Comments Lymphocytes # (test code = Lymphocytes 1.6 1.0-5.5 #) [facility] CenterQelhhzaRKVGKTRXBH5373-73-55 07:59:00 Test Item Value Reference Range Interpretation Comments Segs-Bands # (test code = Segs-Bands #) 4.8 1.5-8.1 [facility] CenterSizyjevYLWFEUMFOQ3922-32-37 07:59:00 Test Item Value Reference Range Interpretation Comments Eosinophils # (test code 0.2 See_Comment [A utomated message] The = Eosinophils #) system whic h generated this result tra nsmitted reference range : <=0.5. The reference r robbie was not used to int erpret this result as normal/abnormal . [facility] CenterMdqzddnCKYEXSUXMY6754-26-17 07:59:00 Test Item Value Reference Range Interpretation Comments Monocytes # (test code 0.7 See_Comment [Aut omated message] The = Monocytes #) system which generated this result tra nsmitted reference range : <=0.8. The reference r robbie was not used to int erpret this result as normal/abnormal . [facility] CenterMuuztapSJMXISPGOJ8562-36-16 07:59:00 Test Item Value Reference Range Interpretation Comments Basophils # (test code 0.1 See_Comment [Aut omated message] The = Basophils #) system which generated this result tra nsmitted reference range : <=0.2. The reference r robbie was not used to int erpret this result as normal/abnormal . [facility] CenterOapjnbxUHXFFAGNVJ2000-93-67 07:59:00 Test Item Value Reference Range Interpretation Comments Lymphocytes (test code = Lymphocytes) 21.7 20.0-40.0 [facility] CenterFdxqqgyZHISMUIDRA7577-38-44 07:59:00 Test Item Value Reference Range Interpretation Comments Segs (test code = Segs) 65.6 45.0-75.0 [place] 326476-08-31 07:59:00 Test Item Value Reference Range Interpretation Comments Basophils (test code = 0.8 See_Comment [Aut omated message] The Basophils) system which ge nerated this result tra nsmitted reference range : <=1.0. The reference r robbie was not used to int erpret this result as normal/abnormal . [facility] CenterBemhoifZXNADLGRAG6389-61-16 07:59:00 Test Item Value Reference Range Interpretation Comments Eosinophils (test code = 2.1 See_Comment [A utomated message] The Eosinophils) system which ge nerated this result tra nsmitted reference range : <=4.0. The reference r robbie was not used to int erpret this result as normal/abnormal . [facility] CenterPlsypriKUTGYQEJBV4601-76-20 07:59:00 Test Item Value Reference Range Interpretation Comments Monocytes (test code = Monocytes) 9.8 2.0-12.0 [facility] CenterVzofxdlSLTRLPJPTJ3797-99-96 08:51:00 Test Item Value Reference Range Interpretation Comments Segs (test code = Segs) 53.8 45.0-75.0 [facility] CenterTkazkjqBBXSKRYHFF5417-38-75 08:51:00 Test Item Value Reference Range Interpretation Comments Monocytes # (test code 0.6 See_Comment [Aut omated message] The = Monocytes #) system which generated this result tra nsmitted reference range : <=0.8. The reference r robbie was not used to int erpret this result as normal/abnormal . [facility] CenterObxaacxAKRXUIJUFP5248-53-77 08:51:00 Test Item Value Reference Range Interpretation Comments Basophils (test code = 0.7 See_Comment [Aut omated message] The Basophils) system which ge nerated this result tra nsmitted reference range : <=1.0. The reference r robbie was not used to int erpret this result as normal/abnormal . [facility] CenterFlkovchARWTGJPLBM8368-84-00 08:51:00 Test Item Value Reference Range Interpretation Comments Segs-Bands # (test code = Segs-Bands #) 3.1 1.5-8.1 [facility] CenterPfmrejhBQBVJFTTKB2664-78-66 08:51:00 Test Item Value Reference Range Interpretation Comments Monocytes (test code = Monocytes) 9.7 2.0-12.0 [facility] CenterAuorthoSUAERGHZXK3834-97-50 08:51:00 Test Item Value Reference Range Interpretation Comments Eosinophils (test code = 3.5 See_Comment [A utomated message] The Eosinophils) system which ge nerated this result tra nsmitted reference range : <=4.0. The reference r robbie was not used to int erpret this result as normal/abnormal . [facility] CenterWowvlfgVMSMCVMZQQ4785-82-80 08:51:00 Test Item Value Reference Range Interpretation Comments Lymphocytes (test code = Lymphocytes) 32.3 20.0-40.0 [facility] CenterWkrovyzLMELJJNCQM1377-70-03 08:51:00 Test Item Value Reference Range Interpretation Comments Eosinophils # (test code 0.2 See_Comment [A utomated message] The = Eosinophils #) system whic h generated this result tra nsmitted reference range : <=0.5. The reference r robbie was not used to int erpret this result as normal/abnormal . [facility] CenterTdqgnhiVZCNRUSAXY0919-86-85 08:51:00 Test Item Value Reference Range Interpretation Comments Lymphocytes # (test code = Lymphocytes 1.8 1.0-5.5 #) [facility] CenterFjqmygbHQUBQUSBUT3952-30-15 08:51:00 Test Item Value Reference Range Interpretation Comments MPV (test code = MPV) 7.6 7.4-10.4 [facility] CenterEhmtmqdUDLOLJHXPH4536-57-37 08:51:00 Test Item Value Reference Range Interpretation Comments MCH (test code = MCH) 30.0 pg 27.0-31.0 [facility] CenterNkzjkfwVYKZCHTEKP9364-78-69 08:51:00 Test Item Value Reference Range Interpretation Comments MCV (test code = MCV) 89.1 80.0-98.0 [facility] CenterPmkdevdHXHLZCWTJD0675-14-81 08:51:00 Test Item Value Reference Range Interpretation Comments MCHC (test code = MCHC) 33.7 32.0-36.0 [id number] 08:51:00 Test Item Value Reference Range Interpretation Comments RDW (test code = RDW) 13.8 11.5-14.5 [facility] CenterAupmajoYEIAZJEVKD1014-94-38 08:51:00 Test Item Value Reference Range Interpretation Comments Platelet (test code = Platelet) 266 133-450 [facility] Cent[id number] 08:51:00 Test Item Value Reference Range Interpretation Comments Hgb (test code = Hgb) 12.1 12.0-16.0 [facility] Cent[id number] 08:51:00 Test Item Value Reference Range Interpretation Comments Hct (test code = Hct) 35.8 36.0-48.0 [facility] CenterYrhnmvqNLJKUSAFUS5448-39-88 08:51:00 Test Item Value Reference Range Interpretation Comments WBC (test code = WBC) 5.7 3.7-10.4 [facility] CenterYizfdtuKJWXATGDWI8853-46-39 08:51:00 Test Item Value Reference Range Interpretation Comments RBC (test code = RBC) 4.01 4.20-5.40 [facility] CenterJhzcmpgMWQOUNYHXT5087-11-85 08:51:00 Test Item Value Reference Range Interpretation Comments Segs (test code = Segs) 53.8 45.0-75.0 [facility] CenterPowveduKBFTJPIALY3617-86-35 08:51:00 Test Item Value Reference Range Interpretation Comments Monocytes # (test code 0.6 See_Comment [Aut omated message] The = Monocytes #) system which generated this result tra nsmitted reference range : <=0.8. The reference r robbie was not used to int erpret this result as normal/abnormal . [facility] CenterSrcvlwfXQSBPVTPCZ9900-26-09 08:51:00 Test Item Value Reference Range Interpretation Comments Basophils (test code = 0.7 See_Comment [Aut omated message] The Basophils) system which ge nerated this result tra nsmitted reference range : <=1.0. The reference r robbie was not used to int erpret this result as normal/abnormal . [facility] CenterHuufkeoIHDZMJUWUO4423-67-69 08:51:00 Test Item Value Reference Range Interpretation Comments Segs-Bands # (test code = Segs-Bands #) 3.1 1.5-8.1 [facility] CenterRvkzzbfWLWSQVQCUQ3805-30-47 08:51:00 Test Item Value Reference Range Interpretation Comments Monocytes (test code = Monocytes) 9.7 2.0-12.0 [facility] CenterPujblriXGHMSTAZAA2503-20-52 08:51:00 Test Item Value Reference Range Interpretation Comments Eosinophils (test code = 3.5 See_Comment [A utomated message] The Eosinophils) system which ge nerated this result tra nsmitted reference range : <=4.0. The reference r robbie was not used to int erpret this result as normal/abnormal . [facility] CenterPopddnqRXIOZUINTR2999-82-07 08:51:00 Test Item Value Reference Range Interpretation Comments Lymphocytes (test code = Lymphocytes) 32.3 20.0-40.0 [facility] CenterGfaqmfxCGHJNTYRSK4343-77-54 08:51:00 Test Item Value Reference Range Interpretation Comments Eosinophils # (test code 0.2 See_Comment [A utomated message] The = Eosinophils #) system whic h generated this result tra nsmitted reference range : <=0.5. The reference r robbie was not used to int erpret this result as normal/abnormal . [facility] CenterQofeffuZKXHSLROLE5973-63-01 08:51:00 Test Item Value Reference Range Interpretation Comments Lymphocytes # (test code = Lymphocytes 1.8 1.0-5.5 #) [facility] CenterRwefyyjNMUVCIREWW6209-87-94 08:51:00 Test Item Value Reference Range Interpretation Comments MPV (test code = MPV) 7.6 7.4-10.4 [facility] CenterDyaouyeNCELSPTPRD7326-21-05 08:51:00 Test Item Value Reference Range Interpretation Comments MCH (test code = MCH) 30.0 pg 27.0-31.0 [facility] CenterCghtrfyRNPCAPUCUJ8158-27-62 08:51:00 Test Item Value Reference Range Interpretation Comments MCV (test code = MCV) 89.1 80.0-98.0 [facility] CenterJofcgqsUKKMYJQTVP3233-71-51 08:51:00 Test Item Value Reference Range Interpretation Comments MCHC (test code = MCHC) 33.7 32.0-36.0 [facility] C[id number] 08:51:00 Test Item Value Reference Range Interpretation Comments RDW (test code = RDW) 13.8 11.5-14.5 [facility] CenterIqyliwhSMVZZOHYWN5779-33-99 08:51:00 Test Item Value Reference Range Interpretation Comments Platelet (test code = Platelet) 266 133-450 [facility] CenterCzewpmvUYDGOFNFVE5615-51-88 08:51:00 Test Item Value Reference Range Interpretation Comments Hgb (test code = Hgb) 12.1 12.0-16.0 [facility] CenterElrcdqtQOORFKOSSP4575-87-08 08:51:00 Test Item Value Reference Range Interpretation Comments Hct (test code = Hct) 35.8 36.0-48.0 [facility] CenterRsavrieMYEWCPOSAT2961-73-54 08:51:00 Test Item Value Reference Range Interpretation Comments WBC (test code = WBC) 5.7 3.7-10.4 [facility] CenterRefudulZVVYNDRMTY1013-84-26 08:51:00 Test Item Value Reference Range Interpretation Comments RBC (test code = RBC) 4.01 4.20-5.40 [facility]2016-08-29 06:54:00 Test Item Value Reference Range Interpretation Comments Bili Total (test code = Bili Total) 0.5 0.2-1.3 [facility]2016-08-29 06:54:00 Test Item Value Reference Range Interpretation Comments Alk Phos (test code = Alk Phos) 66 39-136 [facility]2016-08-29 06:54:00 Test Item Value Reference Range Interpretation Comments AST (test code = AST) 23 See_Comment [Auto mated message] The system which ge nerated this result transmit randolph reference range : <=37. The reference range was not used to interpr et this result as juan m l/abnormal. [facility]2016-08-29 06:54:00 Test Item Value Reference Range Interpretation Comments Albumin Lvl (test code = Albumin Lvl) 3.2 3.5-5.0 [facility]2016-08-29 06:54:00 Test Item Value Reference Range Interpretation Comments ALT (test code = ALT) 29 See_Comment [Auto mated message] The system which ge nerated this result transmit randolph reference range : <=65. The reference range was not used to interpr et this result as juan m l/abnormal. [facility]2016-08-29 06:54:00 Test Item Value Reference Range Interpretation Comments Total Protein (test code = Total 7.4 6.4-8.4 Protein) [facility]2016-08-29 06:54:00 Test Item Value Reference Range Interpretation Comments B/C Ratio (test code = B/C Ratio) 19 6-25 [facility]2016-08-29 06:54:00 Test Item Value Reference Range Interpretation Comments A/G Ratio (test code = A/G Ratio) 0.8 0.7-1.6 [facility]2016-08-29 06:54:00 Test Item Value Reference Range Interpretation Comments Globulin (test code = Globulin) 4.2 2.7-4.2 [facility] [employer] [id number] 06:54:00 Test Item Value Reference Range Interpretation Comments Albumin Lvl (test code = Albumin Lvl) 3.2 3.5-5.0 [facility] [employer] [id number] 06:54:00 Test Item Value Reference Range Interpretation Comments ALT (test code = ALT) 29 See_Comment [Auto mated message] The system which ge nerated this result transmit randolph reference range : <=65. The reference range was not used to interpr et this result as juan m l/abnormal. [facility] [employer] [id number] 06:54:00 Test Item Value Reference Range Interpretation Comments Total Protein (test code = Total 7.4 6.4-8.4 Protein) [facility] [employer] [id number] 06:54:00 Test Item Value Reference Range Interpretation Comments B/C Ratio (test code = B/C Ratio) 19 6-25 [facility] [employer] [id number] 06:54:00 Test Item Value Reference Range Interpretation Comments A/G Ratio (test code = A/G Ratio) 0.8 0.7-1.6 [facility] [employer] [id number] 06:54:00 Test Item Value Reference Range Interpretation Comments Globulin (test code = Globulin) 4.2 2.7-4.2 [facility] [employer] [id number] 06:54:00 Test Item Value Reference Range Interpretation Comments Bili Total (test code = Bili Total) 0.5 0.2-1.3 [facility] [employer] [id number] 06:54:00 Test Item Value Reference Range Interpretation Comments Alk Phos (test code = Alk Phos) 66 39-136 [facility] [employer] [id number] 06:54:00 Test Item Value Reference Range Interpretation Comments AST (test code = AST) 23 See_Comment [Auto mated message] The system which ge nerated this result transmit randolph reference range : <=37. The reference range was not used to interpr et this result as juan m l/abnormal. [facility] Gentor ResourcesCARDIAC [id number] 03:48:00 Test Item Value Reference Range Interpretation Comments Troponin-I (test code no gt See_Comment [Auto mated message] The = Troponin-I) system which g enerated this result transmit randolph reference range : <=0.40. The reference r robbie was not used to interpr et this result as juan m l/abnormal. [facility] HospitalIvrcqltEVOSEUFOUB3512-19-88 03:48:00 Test Item Value Reference Range Interpretation Comments PTT (test code = PTT) 30.5 s 22.9-35.8 [facility] HospitalNbgjpzmUWKFBAIGGI7391-18-08 03:48:00 Test Item Value Reference Range Interpretation Comments Etoh (%) (test code = Etoh (%)) no gt [facility] HospitalKivmzbgUCCDLYASNL1358-32-20 03:48:00 Test Item Value Reference Range Interpretation Comments Ethanol Lvl (test code = Ethanol Lvl) no gt [facility] AND [id number] 03:48:00 Test Item Value Reference Range Interpretation Comments UA Renal Epi (test code = UA Renal Epi) RARE [facility] AND [id number] 03:48:00 Test Item Value Reference Range Interpretation Comments UA Urobilinogen (test code = UA <=1.0 mg/dL 0.1-1.0 Urobilinogen) [facility] AND [id number] 03:48:00 Test Item Value Reference Range Interpretation Comments UA Color (test code = Yellow *NA*(04/21/16 UA Color) 10:48 PM) [facility] AND [id number] 03:48:00 Test Item Value Reference Range Interpretation Comments UA pH (test code = UA pH) 8.0 5.0-8.0 [facility] AND [id number] 03:48:00 Test Item Value Reference Range Interpretation Comments UA Spec Grav (test code = UA Spec Grav) 1.011 [facility] AND [id number] 03:48:00 Test Item Value Reference Range Interpretation Comments UA Turbidity (test code Slight *ABN*(04/21/16 = UA Turbidity) 10:48 PM) [facility] AND [id number] 03:48:00 Test Item Value Reference Range Interpretation Comments UA Glucose (test code = UA Negative mg/dL Glucose) [facility] AND [id number] 03:48:00 Test Item Value Reference Range Interpretation Comments UA Blood (test code = Negative (04/21/16 10:48 UA Blood) PM) [facility] [id number] 03:48:00 Test Item Value Reference Range Interpretation Comments UA Protein (test code = UA Protein) 30 mg/dL [facility] [id number] 03:48:00 Test Item Value Reference Range Interpretation Comments UA Bili (test code = Negative *NA*(04/21/16 UA Bili) 10:48 PM) [facility] [id number] 03:48:00 Test Item Value Reference Range Interpretation Comments UA Ketones (test code = UA Negative mg/dL Ketones) [facility] [id number] 03:48:00 Test Item Value Reference Range Interpretation Comments UA Nitrite (test code Negative (04/21/16 10:48 = UA Nitrite) PM) [facility] AND [id number] 03:48:00 Test Item Value Reference Range Interpretation Comments UA Leuk Est (test Negative (04/21/16 10:48 code = UA Leuk Est) PM) [facility] AND [id number] 03:48:00 Test Item Value Reference Range Interpretation Comments UA Amorph Chari (test code = Occasional /HPF UA Amorph Chari) [facility] [id number] 03:48:00 Test Item Value Reference Range Interpretation Comments UA WBC (test code = 1 See_Comment [Automa randolph message] The UA WBC) system which ge nerated this result transmit randolph reference range : <=5. The reference range was not used to interpr et this result as juan m l/abnormal. [facility] [id number] 03:48:00 Test Item Value Reference Range Interpretation Comments UA Mucus (test code = UA Mucus) Few /LPF [facility] [id number] 03:48:00 Test Item Value Reference Range Interpretation Comments UA Sq Epi (test code = UA Sq Occasional /LPF Epi) [facility] [id number] 03:48:00 Test Item Value Reference Range Interpretation Comments Troponin-I (test code no gt See_Comment [Auto mated message] The = Troponin-I) system which g enerated this result transmit randolph reference range : <=0.40. The reference r robbie was not used to interpr et this result as juan m l/abnormal. [facility] H[id number] 03:48:00 Test Item Value Reference Range Interpretation Comments PTT (test code = PTT) 30.5 s 22.9-35.8 [facility] H[id number] 03:48:00 Test Item Value Reference Range Interpretation Comments Etoh (%) (test code = Etoh (%)) no gt [facility] H[id number] 03:48:00 Test Item Value Reference Range Interpretation Comments Ethanol Lvl (test code = Ethanol Lvl) no gt [facility] AND [id number] 03:48:00 Test Item Value Reference Range Interpretation Comments UA Renal Epi (test code = UA Renal Epi) RARE [facility] AND [id number] 03:48:00 Test Item Value Reference Range Interpretation Comments UA Urobilinogen (test code = UA <=1.0 mg/dL 0.1-1.0 Urobilinogen) [facility] AND [id number] 03:48:00 Test Item Value Reference Range Interpretation Comments UA Color (test code = Yellow *NA*(04/21/16 UA Color) 10:48 PM) [facility] AND [id number] 03:48:00 Test Item Value Reference Range Interpretation Comments UA pH (test code = UA pH) 8.0 5.0-8.0 [facility] AND [id number] 03:48:00 Test Item Value Reference Range Interpretation Comments UA Spec Grav (test code = UA Spec Grav) 1.011 [facility] AND [id number] 03:48:00 Test Item Value Reference Range Interpretation Comments UA Turbidity (test code Slight *ABN*(04/21/16 = UA Turbidity) 10:48 PM) [facility] AND [id number] 03:48:00 Test Item Value Reference Range Interpretation Comments UA Glucose (test code = UA Negative mg/dL Glucose) [facility] AND [id number] 03:48:00 Test Item Value Reference Range Interpretation Comments UA Blood (test code = Negative (04/21/16 10:48 UA Blood) PM) [facility] AND [id number] 03:48:00 Test Item Value Reference Range Interpretation Comments UA Protein (test code = UA Protein) 30 mg/dL [facility] AND [id number] 03:48:00 Test Item Value Reference Range Interpretation Comments UA Bili (test code = Negative *NA*(04/21/16 UA Bili) 10:48 PM) [facility] AND [id number] 03:48:00 Test Item Value Reference Range Interpretation Comments UA Ketones (test code = UA Negative mg/dL Ketones) [facility] AND [id number] 03:48:00 Test Item Value Reference Range Interpretation Comments UA Nitrite (test code Negative (04/21/16 10:48 = UA Nitrite) PM) [facility] AND [id number] 03:48:00 Test Item Value Reference Range Interpretation Comments UA Leuk Est (test Negative (04/21/16 10:48 code = UA Leuk Est) PM) [facility] AND [id number] 03:48:00 Test Item Value Reference Range Interpretation Comments UA Amorph Chari (test code = Occasional /HPF UA Amorph Chari) [facility] AND [id number] 03:48:00 Test Item Value Reference Range Interpretation Comments UA WBC (test code = 1 See_Comment [Automa randolph message] The UA WBC) system which ge nerated this result transmit randolph reference range : <=5. The reference range was not used to interpr et this result as juan m l/abnormal. [facility] AND [id number] 03:48:00 Test Item Value Reference Range Interpretation Comments UA Mucus (test code = UA Mucus) Few /LPF [facility] AND [id number] 03:48:00 Test Item Value Reference Range Interpretation Comments UA Sq Epi (test code = UA Sq Occasional /LPF Epi) [facility]
[2022-04-21 19:45] LABS: Absolute Lymphocytes (CBC) 0.6 K/uL (0.7-4.9); Hematocrit 38.5 % (36.0-45.0); Lymphocytes % 7.6 % (15.3-44.8); MCV 90.6 fL (80-100); MPV 7.1 fL (7.6-11.3); RBC Red Blood Cell Count 4.25 M/uL (3.86-4.86)
[2022-04-21 20:05] LABS: Potassium 5.3 mmol/L (3.5-5.1)
[2022-04-21 20:06] LABS: Albumin 3.8 g/dL (3.4-5.0); Bilirubin Total 0.7 mg/dL (0.2-1.0); Protein, Total 9.1 g/dL (6.4-8.2); Troponin High Sensitivity 8.8 pg/mL (<58.9)
--- NOTE | 2022-04-21 20:26 | RAD REPORT ---
EXAM DESCRIPTION: CT - CTHCSPWOC - 04/21/2022 8:10 pm CLINICAL HISTORY: trauma COMPARISON: Abdomen Pelvis W Contrast dated 04/21/2022; Abdomen Pelvis W Contrast dated 05/19/2020 TECHNIQUE: Axial 5 mm thick images of the head were obtained. Axial 2 mm thick images of the cervical spine were obtained with sagittal and coronal reconstruction images generated and reviewed. All CT scans are performed using dose optimization technique as appropriate and may include automated exposure control or mA/KV adjustment according to patient size. FINDINGS: CT HEAD WITHOUT CONTRAST: No acute hemorrhage, hydrocephalus or extra-axial collection is identified.No areas of brain edema or midline shift. Age advanced cerebral atrophy. Moderate chronic small vessel ischemic changes. The paranasal sinuses and mastoids are clear.The calvarium is intact. CT CERVICAL SPINE WITHOUT CONTRAST: No fracture or subluxation.No prevertebral soft tissues swelling is identified. Pulmonary fibrotic ch anges noted in the lung apices. The esophagus is distended with fluid and particulate matter. Multile carmela cervical spondylosis with varying degrees of neural foraminal narrowing. There is partial fusion across the posterior elements of C3-4. . IMPRESSION: No acute intracranial or cervical spine findings.
--- NOTE | 2022-04-21 20:33 | RAD REPORT ---
EXAM DESCRIPTION: CTAbdomen Pelvis W Contrast - 04/21/2022 8:18 pm CLINICAL HISTORY: abd pain, vomiting COMPARISON: Abdomen Pelvis W Contrast dated 05/19/2020 TECHNIQUE: CT of the abdomen and pelvis was performed. All CT scans are performed using dose optimization technique as appropriate and may include automated exposure control or mA/KV adjustment according to patient size. FINDINGS: Lower chest: Mild pulmonary fibrotic changes noted. 7 mm right lower lobe pulmonary nodule is unchanged since 05/19/2020. Large hiatal hernia. The esophagus is distended with fluid. There has been rotation of the stomach on its axis consistent with an organoaxial gastric volvulus. Multi-vess el coronary artery disease. Aortic valve calcifications. Liver: Too small to characterize liver lesions are likely benign. Biliary: No biliary ductal dilatation. Stomach: No significant focal abnormality. Duodenum: No significant focal abnormality. Pancreas: No significant abnormality. Spleen: No significant abnormality. Adrenal: No suspicious lesions. Kidney/ureter: No hydronephrosis. No renal calculi. Too small to characterize and/or benign appearing renal lesions are noted. Retroperitoneum: No retroperitoneal adenopathy. Vascular: No aneurysm. Bowel: Colorectal anastomosis. Moderate stool is present. No bowel obstruction.. Peritoneum: No ascites or free air. Bladder: Grossly unremarkable. Bladder stimulator. Reproductive: No adnexal masses. Bones: No acute fracture. Bilateral hip arthroplasties. 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 The esophagus is dilate d with fluid/particular matter. Consider NG tube decompression. Recommend surgical consultation.
[2022-04-21] MEDS ORDERED: INSULIN -REGULAR HUMAN 50 UNIT/0.5 ML ML ONE (20:39)
--- NOTE | 2022-04-21 21:21 | RAD REPORT ---
EXAM DESCRIPTION: RAD - Chest Single View - 04/21/2022 9:16 pm CLINICAL HISTORY: CHEST PAIN COMPARISON: Chest Single View dated 02/03/2022; Chest Single View dated 01/13/2018; Chest Single View dated 01/11/2018; Chest Pa And Lat (2 Views) dated 06/02/2017 FINDINGS: Lines: None. Lungs: No evidence of edema or pneumonia. Mild pulmonary fibrotic changes. Pleural: No significant pleural effusions or pneumothorax. Cardiac: The heart size is within normal limits. Bones: No acute fractures. Other: Hiatal hernia. IMPRESSION: No acute cardiopulmonary disease.
[2022-04-21] MEDS ORDERED: FENTANYL CITR 100 MCG/2 ML ONE (22:01)
[2022-04-21] MEDS ORDERED: ONDANSETRON 4 MG/2 ML VIAL ONE (22:01)
[2022-04-21] MEDS ORDERED: DEXTROSE 10%-WATER 500 ML IV ONE (22:05)
[2022-04-21] MEDS ORDERED: HYDRALAZINE HCL 20 MG/ML VIAL ONE (22:19)
--- NOTE | 2022-04-21 22:19 | EDPHYS ---
Physician Documentation [facility] Name: Veena Gray Age: 87 yrs Sex: Female : 1935 Arrival Date: 04/21/2022 Time: 18:52 Bed 4 Private MD: ED Physician Yusuf Ashley HPI: 04/21 23:37 This 87 yrs old Female presents to ER via Wheelchair with complaints of Vomiting, Fall kb Injury. 23:37 The patient presents to the emergency department with nausea, vomiting, abdominal pain. kb Onset: The symptoms/episode began/occurred this morning. Possible causes: unknown. The symptoms are aggravated by nothing. The symptoms are alleviated by nothing. Associated signs and symptoms: Pertinent positives: abdominal pain, nausea, vomiting. Severity of symptoms: At their worst the symptoms were moderate in the emergency department the symptoms are unchanged. The patient has not experienced similar symptoms in the past. The patient has not recently seen a physician. Patient reports she fell backwards on Friday hitting her head and back. Reports headache and neck pain. Today started having epigastric pain, nausea and vomiting. States the vomiting has not stopped so she came in. Denies LOC with fall.. Historical: - Allergies: 19:18 Codeine; lg3 19:18 Macrobid; lg3 19:18 Nitrofurantoin; lg3 19:18 PENICILLINS; lg3 19:18 Sulfa (Sulfonamide Antibiotics); lg3 - Home Meds: 19:18 Eliquis oral [Active]; Amiodarone Oral [Active]; amlodipine oral [Active]; lg3 levothyroxine oral [Active]; Spironolactone Oral 25 mg daily [Active]; - PMHx: 19:18 GERD; hiatal hernia; kidney disease; Myocardial infarction; Vertigo; a fib; lg3 - PSHx: 19:18 Cholecystectomy; hysterectomy; Iliac stent; lg3 - Immunization history:: Adult Immunizations up to date, pfizer X3. - Social history:: Smoking status: Patient denies any tobacco usage or history of. Patient/guardian denies using alcohol, street drugs. - Immunization history: Last tetanus immunization: unknown. ROS: 23:36 Constitutional: Negative for fever, chills, and weight loss. kb 23:36 Neck: Positive for pain with movement, pain at rest. 23:36 Abdomen/GI: Positive for abdominal pain, nausea and vomiting. 23:36 Neuro: Positive for headache. 23:36 All other systems are negative. Exam: 23:36 Constitutional: This is a well developed, well nourished patient who is awake, alert, kb and in no acute distress. Head/Face: Normocephalic, atraumatic. Eyes: Pupils equal round and reactive to light, extra-ocular motions intact. Lids and lashes normal. Conjunctiva and sclera are non-icteric and not injected. Cornea within normal limits. Periorbital areas with no swelling, redness, or edema. ENT: Moist Mucous membranes Neck: Trachea midline, no thyromegaly or masses palpated, and no cervical lymphadenopathy. Supple, full range of motion without nuchal rigidity, or vertebral point tenderness. No Meningismus. Chest/axilla: Normal chest wall appearance and motion. Cardiovascular: Regular rate and rhythm with a normal S1 and S2. No gallops, murmurs, or rubs. No pulse deficits. Respiratory: Respirations even and unlabored. No increased work of breathing. Talking in full sentences Skin: Warm, dry with normal turgor. Normal color. MS/ Extremity: Pulses equal, no cyanosis. Neurovascular intact. Full, normal range of motion. Neuro: Awake and alert, GCS 15, oriented to person, place, time, and situation. Moves all extremities. Normal gait. Psych: Awake, alert, with orientation to person, place and time. Behavior, mood, and affect are within normal limits. 23:36 Abdomen/GI: Inspection: abdomen appears normal, Bowel sounds: normal, Palpation: soft, in all quadrants, mild abdominal tenderness, in the epigastric area. 04/22 00:47 ECG was reviewed by the Attending Physician. kb Vital Signs: 04/21 19:21 BP 197 / 77; Pulse 87; Resp 18; Temp 97.5; Pulse Ox 97% on R/A; Weight 48.99 kg (R); lg3 Height 5 ft. 2 in. (157.48 cm) (R); Pain 7/10; 19:23 BP 204 / 66; Pulse 73; Resp 19 S; Temp 97.5(O); Pulse Ox 98% on R/A; ha1 21:41 Pulse 87; Resp 18; tw5 22:07 BP 219 / 81; Pulse 77; Resp 18; Pulse Ox 91% on R/A; tw5 19:21 Body Mass Index 19.75 (48.99 kg, 157.48 cm) lg3 Kimi Coma Score: 19:29 Eye Response: spontaneous(4). Verbal Response: oriented(5). Motor Response: obeys lg3 commands(6). Total: 15. Trauma Score (Adult): 19:29 Eye Response: spontaneous(1); Verbal Response: oriented(1); Motor Response: obeys lg3 commands(2); Systolic BP: > 89 mm Hg(4); Respiratory Rate: 10 to 29 per min(4); Kimi Score: 15; Trauma Score: 12 MDM: 19:22 Patient medically screened. kb 21:08 Physician consultation: Gen Hernandez MD was contacted at 20:44, regarding consult, kb patient's condition, and will see patient in ED. 21:08 Physician consultation: Gen Hernandez MD in the emergency department to see patient at kb 21:08. 23:36 Data reviewed: vital signs, nurses notes. Data interpreted: Pulse oximetry: on room air kb is 91 %. Interpretation: normal. Counseling: I had a detailed discussion with the patient and/or guardian regarding: the historical points, exam findings, and any diagnostic results supporting the discharge/admit diagnosis, lab results, radiology results, the need for further work-up and treatment in the hospital. 04/21 19:27 Order name: CBC with Diff; Complete Time: 19:58 kb 04/21 19:27 Order name: CMP; Complete Time: 20:06 kb 04/21 19:27 Order name: Lipase; Complete Time: 20:06 kb 04/21 19:27 Order name: Troponin HS; Complete Time: 20:06 kb 04/21 20:56 Order name: Lactate; Complete Time: 21:53 kb 04/21 22:24 Order name: SARS RAPID; Complete Time: 23:10 bb 04/21 19:22 Order name: CT Head C Spine; Complete Time: 20:35 kb 04/22 04:53 Order name: Lactate; Complete Time: 05:15 EDMS 04/22 04:59 Order name: Comprehensive Metabolic Panel; Complete Time: 05:15 EDMS 04/22 04:59 Order name: Phosphorus; Complete Time: 05:15 EDMS 08/29 04:59 Order name: Lipid Profile; Complete Time: 05:15 EDMS 04/22 04:59 Order name: Magnesium; Complete Time: 05:15 EDMS 04/22 04:59 Order name: Thyroid Stimulating Hormone; Complete Time: 05:15 EDMS 04/22 05:46 Order name: CBC without Diff EDMS 04/21 19:27 Order name: CT Abd/Pelvis - IV Contrast Only; Complete Time: 20:35 kb 04/21 19:27 Order name: IV Saline Lock; Complete Time: 19:41 kb 04/21 19:27 Order name: Labs collected and sent; Complete Time: 19:41 kb 04/21 19:27 Order name: EKG; Complete Time: 19:28 kb 04/21 19:27 Order name: EKG - Nurse/Tech; Complete Time: 19:52 kb 04/21 19:27 Order name: Chest Single View XRAY; Complete Time: 21:22 kb 04/21 20:49 Order name: NG Tube; Complete Time: 21:50 kb 04/21 21:38 Order name: XRAY Chest (1 view); Complete Time: 22:39 bb 04/22 07:40 Order name: RAD EDMS EC/29 00:47 Rate is 73 beats/min. Rhythm is regular. QRS Treece is Normal. AL interval is normal at kb 152 msec. QRS interval is normal at 86 msec. QT interval is normal at 486 msec. Administered Medications: 04/21 22:06 Drug: D50W 25 ml {Note: d10 500 ml- 125 ml given.} Route: IVP; Site: left antecubital; 04/22 00:07 Follow up: Response: No adverse reaction 04/21 22:06 Drug: fentaNYL (PF) 25 mcg Route: IVP; Site: left antecubital; 04/22 00:07 Follow up: Response: No adverse reaction; Pain is decreased; RASS: Drowsy (-1) 04/21 22:06 Drug: Zofran (Ondansetron) 4 mg Route: IVP; Site: left antecubital; 04/22 00:07 Follow up: Response: No adverse reaction 04/21 22:09 Drug: Insulin Regular Human 5 units {Co-Signature: lg3 (Isa Ace RN).} Route: IVP; tw5 Site: left antecubital; 04/22 00:07 Follow up: Response: No adverse reaction tw5 04/21 22:11 Drug: hydrALAZINE 10 mg Route: IVP; Site: left antecubital; tw5 04/22 00:07 Follow up: Response: No adverse reaction tw5 Disposition Summary: 04/21/22 22:19 Hospitalization Ordered Hospitalization Status: Inpatient Admission kb Provider: Efe Israel Condition: Stable kb Problem: new kb Symptoms: are unchanged kb Bed/Room Type: Standard kb Location: [facility] ER HOLD(04/21/22 22:31) mw Room Assignment: ERHOLD-(04/21/22 22:31) mw Diagnosis - Organoaxial volvulus kb Forms: - Medication Reconciliation Form kb - SBAR form kb Signatures: Dispatcher [employer] EDCarmela Oden FNP-C FNP-Ckb Webb, Martha RN RN Isa Ace, RN RN lg3 Giulia Pittman tw5 Lana Castrejon PA PA sb3 Isa Ace RN lg3 Corrections: (The following items were deleted from the chart) 04/21 22: 22:19 Tele[facility] : 22:19 kb
--- NOTE | 2022-04-21 22:19 | ER ---
Nurse's Notes [facility] Name: Veena Gray Age: 87 yrs Sex: Female : 1935 Arrival Date: 04/21/2022 Time: 18:52 Bed 4 Private MD: Diagnosis: Organoaxial volvulus Presentation: 04/21 19:15 Chief complaint: Patient states: i fell Friday around 1500 and landed on my back. i hit lg3 the back of my head and now the left side of my head and neck hurt. i started vomiting today around 1100 and it hasn't stopped. Coronavirus screen: Client denies travel out of the [place] in the last 14 days. At this time, the client does not indicate any symptoms associated with coronavirus-19. Ebola Screen: No symptoms or risks identified at this time. Risk Assessment: Do you want to hurt yourself or someone else? Patient reports no desire to harm self or others. Onset of symptoms was April 19, 2022. 19:15 Method Of Arrival: Wheelchair lg3 19:15 Acuity: RITIKA 2 lg3 19:29 Care prior to arrival: None. Mechanism of Injury: Fall from standing position. Trauma lg3 event details: Injury occurred in the [facility], Injury occurred: at home. 19:33 Initial Sepsis Screen: Does the patient meet any 2 criteria? No. Patient's initial lg3 sepsis screen is negative. Does the patient have a suspected source of infection? No. Patient's initial sepsis screen is negative. Triage Assessment: 19:18 General: Appears in no apparent distress. uncomfortable, Behavior is calm, cooperative. lg3 Pain: Complains of pain in head anbd neck. GI: Reports lower abdominal pain, upper abdominal pain, cramping, intolerance of fluids, intolerance of food, nausea, vomiting. Trauma Activation: Alert Physician: ED Physician; Name: Gabi; Notified At: 19:29; Arrived At: Physician: General Surgeon; Name: ; Notified At: 19:29; Arrived At: Physician: Radiology; Name: ; Notified At: 19:29; Arrived At: Physician: Respiratory; Name: ; Notified At: 19:29; Arrived At: Physician: Miller; Name: ; Notified At: 19:29; Arrived At: Historical: - Allergies: 19:18 Codeine; lg3 19:18 Macrobid; lg3 19:18 Nitrofurantoin; lg3 19:18 PENICILLINS; lg3 19:18 Sulfa (Sulfonamide Antibiotics); lg3 - Home Meds: 19:18 Eliquis oral [Active]; Amiodarone Oral [Active]; amlodipine oral [Active]; lg3 levothyroxine oral [Active]; Spironolactone Oral 25 mg daily [Active]; - PMHx: 19:18 GERD; hiatal hernia; kidney disease; Myocardial infarction; Vertigo; a fib; lg3 - PSHx: 19:18 Cholecystectomy; hysterectomy; Iliac stent; lg3 - Immunization history:: Adult Immunizations up to date, pfizer X3. - Social history:: Smoking status: Patient denies any tobacco usage or history of. Patient/guardian denies using alcohol, street drugs. - Immunization history: Last tetanus immunization: unknown. Screenin:29 Abuse screen: Denies threats or abuse. Denies injuries from another. Tuberculosis lg3 screening: No symptoms or risk factors identified. 19:33 Nutritional screening: No deficits noted. Fall Risk Fall in past 12 months (25 points). lg3 Secondary diagnosis (15 points) impaired mobility, Ambulatory Aid- Crutches/Cane/Walker (15 pts). Gait- Weak (10 pts.). Total Vigil Fall Scale indicates High Risk Score (45 or more points). Fall prevention measures have been instituted. Side Rails Up X 2 Frequent Obs/Assessments Occuring Family Present and informed to notify staff if the need to leave the bedside As available patient and family educated on Fall Prevention Program and Strategies. Primary Survey: 19:29 NO uncontrolled hemorrhage observed. Breathing/Chest: Spontaneous respiratory effort, lg3 equal unlabored respirations, breath sounds clear bilaterally, regular pattern, symmetrical chest rise and fall. Respiratory effort: spontaneous, unlabored. Circulation: No external hemorrhage present. Regular and strong central pulse, skin warm/dry/normal color. Disability Pupils are equal, round, reactive to light and accommodation. Client is alert. Client responds to verbal stimuli. Exposure/Environment: All clothing and personal items were removed. Forensic evidence collection is not deemed to be indicated at this time. Items placed in patient belonging bag. Reassessment Alertness and Airway: Awake and alert. The airway is patent. Airway Patent Breathing: Spontaneous respiratory effort, equal unlabored respirations, breath sounds clear bilaterally, regular pattern with symmetrical chest rise and fall. Respiratory effort Spontaneous Unlabored Circulation: No external hemorrhage noted. Regular and strong central pulse, skin warm/dry/normal color. Disability: Pupils Pupils are equal, round, reactive to light and accomodation. Alert Verbal stimuli. Assessment: 19:29 General: Appears in no apparent distress. uncomfortable, Behavior is calm, cooperative. lg3 Pain: Complains of pain in head, neck, abdomen Noted to be grimacing, guarding, resistant to movement. Neuro: No deficits noted. Level of Consciousness is awake, alert, obeys commands, Oriented to person, place, time, situation, Speech is normal, Reports weakness. EENT: No deficits noted. No signs and/or symptoms were reported regarding the EENT system. Cardiovascular: Reports lightheadedness, nausea, vomiting, Capillary refill < 3 seconds Clubbing of nail beds is absent JVD is absent Patient's skin is warm and dry. Respiratory: No deficits noted. Airway is patent Trachea midline Respiratory effort is even, unlabored, Respiratory pattern is regular, symmetrical, Breath sounds are clear bilaterally. GI: Abdomen is flat, non-distended, Reports lower abdominal pain, upper abdominal pain, cramping, epigastric pain, intolerance of fluids, intolerance of food, nausea, vomiting. : No deficits noted. No signs and/or symptoms were reported regarding the genitourinary system. Derm: No deficits noted. No signs and/or symptoms reported regarding the dermatologic system. Skin is intact, is healthy with good turgor, Skin is dry, Skin temperature is warm. Musculoskeletal: Circulation, motion, and sensation intact. Range of motion: intact in all extremities, Reports generalized weakness. 20:25 Reassessment: Patient appears in no apparent distress at this time. No changes from ha1 previously documented assessment. Patient and/or family updated on plan of care and expected duration. Pain level reassessed. Patient is alert, oriented x 3, equal unlabored respirations, skin warm/dry/pink. talking to son at bedside. 21:39 General: At the bedside with Surgeon for about [address] NG tube.. tw5 22:43 General: [facility] [phone]. tw5 Vital Signs: 19:21 BP 197 / 77; Pulse 87; Resp 18; Temp 97.5; Pulse Ox 97% on R/A; Weight 48.99 kg (R); lg3 Height 5 ft. 2 in. (157.48 cm) (R); Pain 7/10; 19:23 BP 204 / 66; Pulse 73; Resp 19 S; Temp 97.5(O); Pulse Ox 98% on R/A; ha1 21:41 Pulse 87; Resp 18; tw5 22:07 BP 219 / 81; Pulse 77; Resp 18; Pulse Ox 91% on R/A; tw5 19:21 Body Mass Index 19.75 (48.99 kg, 157.48 cm) lg3 [place] Coma Score: 19:29 Eye Response: spontaneous(4). Verbal Response: oriented(5). Motor Response: obeys lg3 commands(6). Total: 15. Trauma Score (Adult): 19:29 Eye Response: spontaneous(1); Verbal Response: oriented(1); Motor Response: obeys lg3 commands(2); Systolic BP: > 89 mm Hg(4); Respiratory Rate: 10 to 29 per min(4); Kimi Score: 15; Trauma Score: 12 ED Course: 18:52 Patient arrived in ED. as 19:18 Triage completed. lg3 19:22 Carmela Hill FNP-C is [facility]. kb 19:22 Yusuf Ashley MD is Attending Physician. kb 19:29 Patient has correct armband on for positive identification. Placed in gown. Bed in low lg3 position. Call light in reach. Side rails up X 1. Patient maintains SpO2 saturation greater than 95% on room air. Family accompanied patient. Client placed on continuous cardiac and pulse oximetry monitoring. NIBP monitoring applied. site monitor on. 19:29 Patient maintains SpO2 saturation greater than 95% on room air. lg3 19:33 Arm band placed on right wrist. lg3 19:34 Leydi English, RN is Primary Nurse. ha1 19:34 Thermoregulation: warm blanket given to patient. lg3 19:41 Troponin HS Sent. mh5 19:41 CBC with Diff Sent. mh5 19:41 CMP Sent. 5 19:41 Lipase Sent. 5 19:41 Initial lab(s) drawn, by ar, sent to lab. Inserted saline lock: 22 gauge in right [facility] antecubital area, using aseptic technique. Blood collected. 19:54 Warm blanket given. Pillow given. 5 19:54 EKG done, by ED staff, reviewed by Yusuf Ashley MD. 5 20:12 CT Head C Spine In Process Unspecified. EDMS 20:20 CT Abd/Pelvis - IV Contrast Only In Process Unspecified. EDMS 21:18 Chest Single View XRAY In Process Unspecified. EDMS 21:39 NGT: inserted 16 Fr. via left nare. Placement verified by X-ray, to intermittent tw5 suction. 22:17 XRAY Chest (1 view) In Process Unspecified. EDMS 22:18 Efe Israel is Hospitalizing Provider. 04/22 00:08 No provider procedures requiring assistance completed. Patient admitted, IV remains in [facility] place. Administered Medications: 04/21 22:06 Drug: D50W 25 ml {Note: d10 500 ml- 125 ml given.} Route: IVP; Site: left antecubital; 04/22 00:07 Follow up: Response: No adverse reaction 04/21 22:06 Drug: fentaNYL (PF) 25 mcg Route: IVP; Site: left antecubital; 04/22 00:07 Follow up: Response: No adverse reaction; Pain is decreased; RASS: Drowsy (-1) 04/21 22:06 Drug: Zofran (Ondansetron) 4 mg Route: IVP; Site: left antecubital; 04/22 00:07 Follow up: Response: No adverse reaction 04/21 22:09 Drug: Insulin Regular Human 5 units {Co-Signature: lg3 (Isa Ace RN).} Route: IVP; Site: left antecubital; 04/22 00:07 Follow up: Response: No adverse reaction 04/21 22:11 Drug: hydrALAZINE 10 mg Route: IVP; Site: left antecubital; 04/22 00:07 Follow up: Response: No adverse reaction Medication: 00:08 VIS not applicable for this client. tw5 Intake: 00:08 PO: 0ml; Total: 0ml. tw5 Output: 00:08 Urine: 0ml; Total: 0ml. tw5 Outcome: 04/21 22:19 Decision to Hospitalize by Provider. kb 04/22 00:08 Admitted to ER Hold. Please see [facility] for further documentation. tw5 Condition: stable Instructed on the need for admit. 00:08 Patient's length of stay was not longer than 2 hours. tw5 11:23 Patient left the ED. tp1 Signatures: Dispatcher [employer] EDAL Carmela Hill, TREASURER-C TREASURER-Delicia Mcrae Maria 5 Isa Ace, RACH RN lg3 Giulia Pittman tw5 Giulia Mcdowell RN RN tp1 Leydi English RN RN 1 Isa Ace RN lg3
--- NOTE | 2022-04-21 22:20 | RAD REPORT ---
EXAM DESCRIPTION: RAD - Chest Single View - 04/21/2022 10:15 pm CLINICAL HISTORY: post ng tube placement COMPARISON: Chest Single View dated 04/21/2022; Chest Single View dated 02/03/2022; Chest Single View dated 01/13/2018; Chest Single View dated 01/11/2018 FINDINGS/IMPRESSION: NG tube tip overlies intrathoracic stomach.
--- NOTE | 2022-04-21 22:42 | P.HP ---
Certification for Inpatient Patient admitted to: Inpatient With expected LOS: >2 Midnights Patient will require the following post-hospital care: None Practitioner: I am a practitioner with admitting privileges, knowledge of patient current condition, hospital course, and medical plan of care. Services: Services provided to patient in accordance with Admission requirements found in Title 42 Section 412.3 of the Code of Federal Regulations Patient History Date of Service: 04/22/22 Primary Care Provider: Gary Reason for admission: Organoaxial Volvulus History of Present Illness: Patient is an 87-year-old female with history of afib on eliquis, hypertension, GERD, and CKD3 who presented to the ED with complaints of vomiting. Patient reports that 2 days ago she fell and hit the back of her head/neck without LOC and today she started vomiting. Head CT negative for acute findings. CT abdomen pelvis showed "findings concerning for organoaxial volvulus of the stomach. The esophagus is dilated with fluid/particular matter." labs significant for creatinine 1.4, sodium 133, potassium 5.3, BUN 31. Her blood pressures been high in the 200s systolic. She has recently been diagnosed with orthostatic hypotension and subsequently been taken off her antihypertensives. She was given Zofran, insulin, D50, fentanyl, and hydralazine in the ED. General surgery was consulted who came and evaluated the patient. NG tube was inserted. Patient denies any pain. She is admitted for further evaluation and treatment. Allergies codeine Allergy (Mild, Verified 01/05/21 16:49) upset stomach nitrofurantoin [From Macrobid] Allergy (Verified 01/05/21 16:49) Shortness of breath Penicillins Allergy (Verified 01/05/21 16:49) Hives Sulfa (Sulfonamide Antibiotics) Allergy (Verified 01/05/21 16:49) Hives/pulmonary fibrosis latex adhesives Allergy (Uncoded 01/05/21 16:49) "skin comes off" Home medications list reviewed: Yes Home Medications: Ferrous Sulfate [Feosol] 325 mg PO BID #60 tablet 07/12/16 Levothyroxine [Synthroid*] 1 tab PO DAILY #30 tab 07/12/16 Folic Acid 800 mg PO BEDTIME 01/11/18 Aspirin 81 mg PO DAILY 01/05/21 Bacillus Coagulans/Inulin [Probiotic 1 B Cfu-250 mg Cap] 1 each PO BID 01/05/21 Cephalexin [Keflex*] 1 tab PO DAILY 01/05/21 Cranberry Fruit Extract [Cranberry] 425 mg PO DAILY 01/05/21 Magnesium Oxide [Magnesium] 250 mg PO BID 01/05/21 Mirabegron [Myrbetriq] 50 mg PO DAILY 01/05/21 ramipriL [Ramipril] 10 mg PO DAILY 01/05/21 Sertraline [Zoloft*] 25 mg PO DAILY 01/12/21 Apixaban [Eliquis *] 2.5 mg PO BID #60 tablet 02/04/22 Metoprolol Tartrate 25 mg PO BID #60 02/04/22 - Past Medical/Surgical History Diabetic: No -: Hypertension -: Coronary artery disease -: Chronic renal disease -: Orthostatics hypotension -: Osteoporosis -: Osteoarthritis -: GERD -: Depression with anxiety -: Hypothyroidism -: GERD surgery -: History of chest tube placements x3 -: History of heart catheterization -: Cholecystectomy -: Hysterectomy -: Right knee surgery -: R hip surgery Psychosocial/ Personal History: She is , she has 3 children, she lives at home, 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 - Family History Mother -: Cancer Notes: PT states, " She from "Old Age", she was 89." Father -: Stroke Notes: from abdominal aneurysm - Social History Smoking Status: Never smoker Alcohol use: No CD- Drugs: No Caffeine use: Yes Place of Residence: Home Review of Systems Gastrointestinal: Vomiting Physical Examination - Physical Exam General: Alert, In no apparent distress HEENT: Atraumatic, PERRLA, EOMI, Sclerae nonicteric Neck: Supple, 2+ carotid pulse no bruit, No LAD, Without JVD or thyroid abnormality Respiratory: Clear to auscultation bilaterally, Normal air movement Cardiovascular: Regular rate/rhythm, Normal S1 S2 Gastrointestinal: Soft and benign, Non-distended, No tenderness Musculoskeletal: No tenderness Integumentary: No rashes Neurological: Normal speech, Normal strength at 5/5 x4 extr, Normal tone, Normal affect - Studies Laboratory Data (last 24 hrs) 04/21/22 19:35: Sodium 133 L, Potassium 5.3 H, BUN 31 H, Creatinine 1.41 H, Glucose 171 H, Total Bilirubin 0.7, AST 14 L, ALT 27, Alkaline Phosphatase 55, Lipase 156 04/21/22 19:35: WBC 8.30, Hgb 12.6, Hct 38.5, Plt Count 287 Assessment and Plan - Problems (Diagnosis) (1) Organoaxial gastric volvulus Current Visit: Yes Status: Acute (2) Hyperkalemia Current Visit: Yes Status: Acute (3) Chronic kidney disease Current Visit: Yes Status: Chronic (4) Coronary artery disease Current Visit: Yes Status: Chronic Qualifiers: Coronary Disease-Associated Artery/Lesion type: [place] artery [place] vs. transplanted heart: [place] heart Associated angina: without angina Qualified Code(s): I25.10 - Atherosclerotic heart disease of [place] coronary artery without angina pectoris (5) GERD (gastroesophageal reflux disease) Current Visit: Yes Status: Chronic Qualifiers: Esophagitis presence: without esophagitis Qualified Code(s): K21.9 - Gastro-esophageal reflux disease without esophagitis (6) Hypertension Current Visit: Yes Status: Chronic Qualifiers: Hypertension type: primary hypertension Qualified Code(s): I10 - Essential (primary) hypertension (7) Hypothyroidism Current Visit: Yes Status: Chronic Qualifiers: Hypothyroidism type: unspecified Qualified Code(s): E03.9 - Hypothyroidism, unspecified - Plan -NG tube in place and set on low to intermittent suction per general surgery recommendation. NPO. -IV zosyn for prophylaxis as well as gentle IV hydration. -Labs stable at this time. WBC and lactic WNL. Repeat labs and KUB in the morning. -Patient will need EGD. She sees Dr. Faulkner. Consult in place. Patient reports 40 pound unintentional weight loss this year. -General surgery recommending that patient may also need anchoring gastrostomy. -Potassium was elevated at 5.3. She was given insulin and D50 in ED. Will continue to monitor and correct as appropriate. -BP has been elevated. Hydralazine ordered PRN. -Monitor and replete electrolytes per protocol. -Reconcile and continue home medications. -SCDs for VTE ppx. -Full code. Discharge Plan: Home Plan to discharge in: Greater than 2 days - Advance Directives Does patient have a Living Will: No Does patient have a Durable POA for Healthcare: No - Code Status/Comfort Care Code Status Assessed: Yes (Full) Critical Care: No Time Spent Managing Pts Care (In Minutes): 50
[2022-04-21 23:02] LABS: SARS-CoV-2 Antigen Rapid Res Negative (Negative)
[2022-04-22] MEDS: NA CHLORIDE 0.9% 1,000 ML IV SCH (00:16)
[2022-04-22] MEDS ORDERED: NA CHLORIDE 0.9% 1,000 ML ONE ×2 (00:27→14:01)
[2022-04-22] MEDS: MORPHINE 2 MG/ML SYR IV PRN ×2 (00:54→15:52)
[2022-04-22] MEDS: PIPER TAZO 3.375 GM in NA CHLORIDE 0.9% 100 ML IV SCH ×3 (00:54→15:52)
[2022-04-22] MEDS ORDERED: NA CHLORIDE 0.9% 100 ML ONE ×2 (01:02→09:00)
[2022-04-22] MEDS ORDERED: MORPHINE 2 MG/ML SYR ONE (01:02)
[2022-04-22] MEDS ORDERED: PIPERACIL/TAZO 3.375 GM VIAL IV ONE ×2 (01:03→09:01)
[2022-04-22 04:36] VITALS: BMI 19.7
[2022-04-22 04:53] LABS: Albumin 3.3 g/dL (3.4-5.0); Bilirubin Total 0.7 mg/dL (0.2-1.0); Magnesium 1.8 mg/dL (1.8-2.4); Potassium 4.9 mmol/L (3.5-5.1); Protein, Total 7.8 g/dL (6.4-8.2); Thyroid Stimulating Hormone 0.914 uIU/mL (0.360-3.740)
[2022-04-22 05:43] LABS: Hematocrit 34.1 % (36.0-45.0); MPV 7.9 fL (7.6-11.3); RBC Red Blood Cell Count 3.75 M/uL (3.86-4.86)
--- NOTE | 2022-04-22 07:39 | RAD REPORT ---
EXAM DESCRIPTION: RAD - Abdomen 1 View (KUB) - 04/22/2022 7:06 am CLINICAL HISTORY: NG tube, organoaxial volvulus COMPARISON: No comparisons FINDINGS/IMPRESSION: The NG tube tip is not visualized. Bladder stimulator. Hip arthroplasties. Cont rast within the bladder. Nonobstructive bowel-gas pattern. Vascular stent overlying the left hemipelv is.
[2022-04-22] MEDS ORDERED: PNEUMOCOCCAL VACCINE 0.5 ML IMVAC ONE (08:00)
--- NOTE | 2022-04-22 10:21 | EKG ---
Test Date: 2022-04-21 Test Time: 19:53:20 Quality Compliance Consultant: SHAKEEL MEASUREMENT RESULTS: Intervals: Rate: 73 IN: 152 QRSD: 86 QT: 442 QTc: 486 [place]: P: 88 IN: 152 QRS: 83 T: 75 INTERPRETIVE STATEMENTS: Normal sinus rhythm Normal ECG Compared to ECG 02/03/2022 21:18:19 Atrial fibrillation no longer present Right-axis deviation no longer present ST (T wave) deviation no longer present Possible ischemia no longer present Electronically Signed On 04-22-22 10:20:01 CDT by Balbir [place]
[2022-04-22] MEDS ORDERED: LIDOCAINE 1% MPF 5 ML VIAL ONE (10:56)
[2022-04-22] MEDS ORDERED: propofoL 200 MG/20 ML VIAL IV ONE (10:56)
[2022-04-22] MEDS ORDERED: ROCURONIUM 50 MG/5 ML VIAL IV ONE (10:56)
[2022-04-22] MEDS ORDERED: BUPIVACAINE 0.25% PF 30 ML VIAL ONE (11:17)
[2022-04-22] MEDS ORDERED: FENTANYL CITR 100 MCG/2 ML ONE (11:36)
[2022-04-22] MEDS ORDERED: CISATRACURIUM INJECTION 2 MG/ML (10 ML Vial) IV ONE (11:49)
[2022-04-22] MEDS ORDERED: EPHEDRINE SULF 50 MG/ML VIAL ONE (12:22)
[2022-04-22] MEDS ORDERED: NS 0.9% VIAL 10 ML ONE (12:23)
[2022-04-22] MEDS ORDERED: BUPIVACAINE 0.25% PF 10 ML VIAL IJ ONE (12:44)
[2022-04-22] MEDS ORDERED: NEOSTIGMINE 1 MG/ML -10 ML VIAL ONE (13:11)
[2022-04-22] MEDS ORDERED: GLYCOPYRROLATE 0.2 MG/ML SYR ONE (13:12)
--- NOTE | 2022-04-22 13:30 | P.OP ---
Preoperative diagnosis: Organoaxial Gastric Volvulus Postoperative diagnosis: Organoaxial Gastric Volvulus Primary procedure: Exploratory Laparotomy, Gastropexy Secondary procedure: Gastrostomy Tube Placement Anesthesia: GETA Estimated blood loss: <5cc Specimen: none Findings: Organoaxial Gastric Volvulus - stomach full, no ischemia Drain(s): Other (30fr gastrostomy tube ) Transferred to: Recovery Room Condition: Good
[2022-04-22] MEDS: MORPHINE 4 MG/ML SYR ONE ×2 (13:44→13:57)
[2022-04-22 13:59] VITALS: O2SAT 95
--- NOTE | 2022-04-22 15:25 | P.PN ---
Subjective Date of Service: 04/22/22 Primary Care Provider: Gary Chief Complaint: Organoaxial Volvulus Status post gastrostomy tube and gastroplexy for gastric volvulus. Physical Examination - Vital Signs Temperature: 97.6 F Blood Pressure: 158/50 Pulse: 71 Respirations: 16 Pulse Ox (%): 96 - Studies Laboratory Data (last 24 hrs) 04/21/22 19:35: Sodium 133 L, Potassium 5.3 H, BUN 31 H, Creatinine 1.41 H, Glucose 171 H, Total Bilirubin 0.7, AST 14 L, ALT 27, Alkaline Phosphatase 55, L ipase 156 04/21/22 19:35: WBC 8.30, Hgb 12.6, Hct 38.5, Plt Count 287 Assessment And Plan - Current Problems (Diagnosis) (1) Organoaxial gastric volvulus Current Visit: Yes Status: Acute (2) Acute worsening of stage 3 chronic kidney disease Current Visit: Yes Status: Acute (3) Hiatal hernia Current Visit: Yes Status: Acute (4) Hyperkalemia Current Visit: Yes Status: Acute (5) Hiatal hernia Current Visit: No Status: Chronic - Plan Physical Exam General: Alert, In no apparent distress Neck: Without JVD. Respiratory: Clear to auscultation bilaterally, Normal air movement Cardiovascular: Regular rate/rhythm, Normal S1 S2 Gastrointestinal: Soft and benign, Non-distended, No tenderness. PEG tube in place. Musculoskeletal: No tenderness Neurological: Normal speech, Normal strength at 5/5 x4 extr. Plan: Dr. Hernandez input appreciated. Case also discussed with GI Dr. Lala. Status post gastroplexy and PEG tube placement. Continue supportive measures with IV hydration. IV Protonix. N.p.o. Continue IV Zosyn Monitor for GI bleed. Hyperkalemia resolved. Monitor and optimize electrolytes. General surgery to follow.
[2022-04-22] MEDS ORDERED: SODIUM CHLORIDE 0.9% 10ML INJ IV PRN (15:26)
[2022-04-22] MEDS: ONDANSETRON 4 MG/2 ML VIAL IV PRN (20:12)
[2022-04-22] MEDS: HYDROMORPHONE HCL 0.5 MG/0.5 ML INJ IV PRN (20:12)
[2022-04-22] MEDS: PANTOPRAZOLE 40 MG INJ IVP SCH (20:13)
--- NOTE | 2022-04-22 20:58 | P.PN ---
Date of Service: 04/23/22 Subjective: felt like slightly choking up when laying down - with phlegm and improved after sitting up and coughing out. slight nausea no flatus, no BM ROS: 10 point ROS as noted above, otherwise negative Physical Exam: Gen: NAD, AOx3 HEENT: normal conjunctiva, sclera anicteric CV: regular rate & rhythm, no edema Pulm: non-labored respirations, clear bilaterally Abd: soft, non-tender, non-distended, G tube in place., abdominal binder in place Neuro: normal speech, normal affect, moves all extremities vitals reviewed Problem List organoaxial gastric volvulus RENETTA on CKDIII Hiatal hernia Afib on eliquis CAD HTN GERD Hypothyroidism NPO, NS @75; surgery following, advance to CLD; can lower / dc IVF once tolerating continue Zosyn Protonix BID; IV for now while NPO pain meds as needed Dr. Hernandez consulted; s/p gastropexy / G tube placement Monitor for GI bleed. Hyperkalemia resolved. Monitor and optimize electrolytes. PT consult VTE: SCDs Code: Full Dispo: home vs SNF, ~2 days Time Spent Managing Pts Care (In Minutes): 35
--- NOTE | 2022-04-22 20:59 | CON ---
Date of Consultation: 04/21/2022 Brief History Of Present Illness: Patient is an 87-year-old female with a history of atrial fibrilla tion on Eliquis, hypertension, GERD, CKD, who presented to the ER with complaints of persistent nause a and vomiting that began 2 days prior. She states she fell and hit her back, the back of her head w ithout LOC and started having vomiting, and as such, she was concerned about having the fall being re lated to her nausea, vomiting. She received some pain medication in the ER [place] and felt some symptom atic improvement, but continued to have nausea and pain during the time of my examination on arrival. Past Medical History: As described, hypertension, coronary artery disease, chronic renal disease, or thostatic hypotension, osteoporosis, osteoarthritis, GERD, depression, anxiety, hypothyroidism. Past Surgical History: Includes what sounds like two fundoplications, both wraps apparently failed. Possible paraesophageal hernia repair. She has had chest tubes placed in the past. She has had mul tiple drains placed. She has had a history of heart catheterization, cholecystectomy, hysterectomy, right knee surgery, right hip surgery, bladder stimulator placement. Allergies: TO CODEINE, MACROBID, PENICILLIN, SULFA, AND LATEX. Home Medications: Include ferrous sulfate, Synthroid, folic acid, aspirin, probiotic, Keflex, cranbe rry, magnesium, Myrbetriq, ramipril, Zoloft, Eliquis, and metoprolol. Family History: She states that her family history is significant for abdominal aneurysm in her [facility] er and a stroke. She is , has 3 children. Lives at home. She denies smoking, alcohol, or re creational drug use. Review of Systems: Ten-point review of systems other than HPI, denies. Physical Examination: At the time of my examination, General: She appears somewhat uncomfortable. She appears thin and frail overall consistent with her advanced age and has sarcopenia. HEENT: She is normocephalic. Her sclerae are anicteric. Mucous membranes are moist. Oropharynx cl ear. Neck: Supple without JVD. Chest: Normal expansion and excursion. Cardiovascular: Regular, rate, and rhythm. Pulmonary: Clear to auscultation bilaterally. Abdomen: Mild tenderness in the epigastrium and fullness to the epigastrium. No rebound. No guardi ng. No focal peritonitis. Extremities: No clubbing, cyanosis, or edema. Skin: Warm and dry. She has multiple well-healed surgical scars on her abdomen as well. Vital Signs: At the time of my examination, blood pressure 204/66, pulse 73, respiratory rate 19, an d temperature 97.5. Laboratory Exam: Her white blood cell count was 8.3, hemoglobin 12.6, her hematocrit of 38.5, platel et count was 287, neutrophils 89%. Her lactic acid was 1. Sodium 133, potassium 5.3, chloride 98, c arbon dioxide 27, BUN 31, creatinine 1.4, glucose 171, calcium 10.3, AST 14, ALT 27, alkaline phospha tase 55. Her lipase is 156. Her COVID was negative. She had a CT scan performed of the abdomen and pelvis, as well as, a head CT and C-spine CT. The official head CT, C-spine CT was read as no acute intracranial or cervical spine findings. She had an abdomen and pelvis CT performed as well which w as officially read as findings are concerning for organoaxial volvulus of the stomach. The esophagus is dilated with fluid and particulate matter. Consider NG tube decompression. Recommend surgical c onsultation specifically. There are mild pulmonary fibrotic changes. A large hiatal hernia is evide nt. The esophagus is distended with fluid. There has been rotation of the stomach on its axis consi stent with organoaxial gastric volvulus, multi-vessel coronary artery disease is noted, aortic valve calcification. She has a bladder stimulator as well. Assessment And Plan: This is an 87-year-old female who comes in with nausea, vomiting, and signs and symptoms of organoaxial gastric volvulus. 1.I have personally placed an NG tube and gotten significant contents removed immediately and the dennis sutherland had symptomatic improvement at this time. She has resolution of her nausea, vomiting, and abdo carl pain approximately 15 to 30 minutes after placement of the NG tube without any additional medic ation. 2.Patient has seen Dr. Lala before in the past. I will recommend consultation for Dr. Lala' s input regarding the above stated issues. 3.I highly recommend that patient consider surgical intervention in the form of an exploratory lapar otomy with a gastropexy and placement of a gastrostomy tube. I have explained the risks, benefits, a nd alternatives of the above-stated plan including, but not limited to, bleeding, infection, damage t o surrounding tissues, need for further operation and procedures. Patient has agreed to proceed as i ndicated. Recommend to continue medical management. Thank you for this interesting consult. FRANCISCO Voice ID: [id number] Report ID: [id number]
--- NOTE | 2022-04-22 22:53 | OP ---
Date of Procedure: 04/22/2022 Surgeon: Randolph Hernandez MD, Brief History Of Present Illness: Patient is an 87-year-old woman who presents to the hospital after an episode of severe nausea and vomiting last evening. She states that this began yesterday. She h as had episodes similar before in the past but never to this degree of severity. She states addition ally she thought this is only related to her previous foregut surgeries whereby she had which she bel ieves was her stomach wrapped around her esophagus sounding much like a fundoplication, but the patie nt could not recall specific details. She had a revision of her fundoplication and was told by her g astroenterologist that both repairs have subsequently failed and she continued to have problems with paraesophageal hernias in her past. She presented as described above with nausea and vomiting. An N G tube was placed. She had significant symptomatic improvement and output from the NG tube. As such , I discussed the findings of organoaxial gastric volvulus and the need to secure her stomach with a gastropexy to prevent this from occurring again and possibly having a significant mortality/morbidity if surgical intervention was not considered. Preoperative Diagnosis: Organoaxial gastric volvulus. Postoperative Diagnosis: Organoaxial gastric volvulus. Procedure: 1.Exploratory laparotomy. 2.Open gastropexy. 3.Open Odalis gastrostomy tube placement. Anesthesia: General endotracheal. Estimated Blood Loss: Less than 5 cc. Specimen: None. Findings: Organoaxial gastric volvulus with a full stomach without any evidence of ischemia. Patisincere t did have intraabdominal adhesions but manageable at this time. No other gross deformity was apprec iated in the intraabdominal compartment. Drains: A 30-[place]uv[place] gastrostomy tube was placed in the left upper quadrant. Disposition: Patient transferred to recovery room in good condition. Specimen: None. Procedure In Detail: After informed consent was obtained, patient was brought to the operating room, prepped and draped in the usual sterile fashion after adequate anesthesia was achieved. I made an u pper midline incision using a 10 blade down to subcutaneous tissues. I dissected down through the li arabella alba to expose previous surgical sutures which were grasped with Salbador clamps, elevated, and hel d the fascia in place, so that I could enter the midline peritoneal cavity sharply using Metzenbaum s cissors. The peritoneal cavity was opened safely at this point, and I extended the incision under di rect visualization using electrocautery in an upper midline position. Once this was performed, I vis ualized the stomach which had a rotated appearance, incompletely rotated, not quite 180 degrees in th e abdominal compartment. As such, I grasped the stomach and reduced it, taking down some scar tissue , which had been allowing the stomach to be held in place with electrocautery, unpacked the intestine out of the way with moist laparotomy pads and after reducing the stomach, found an appropriate spot on the anterior gastric wall along the greater curve which would be in a tension-free type position t o place in a Odalis gastrostomy in the left upper quadrant. At this point, after the stomach was redu flor, I placed a pursestring suture around the entry site where the tube would be placed and I then pl aced 4 sutures circumferentially around to the stomach to the anterior abdominal wall, securing it fr om the peritoneal fascia to the anterior gastric body. At this point, I made a stab incision in the anterior abdominal wall and then passed a TI clamp through this grasping the gastrostomy tube. Ballo on was tested at this time, found to be intact. The tube was lubricated and brought through the abdo carl wall and remained passing to the abdominal wall at this time. I then used electrocautery to op en a gastrotomy in the anterior body of the stomach. I inspected the mucosa, which was found to be p ink without evidence of ischemic changes. She did have a significant amount of gastric contents, and as such, I did not completely empty the stomach at this point. I suctioned out much of it, but ther e was a lot of solid particulate matter which was difficult to suction as such. At this point, I pas sed the gastrostomy tube into the stomach at this point and secured the pursestring suture of 2-0 norma k, at this time. I then inflated the balloon with approximately 7 cc of saline and helped to bring i t up to the abdominal wall without tension. I then secured the remaining 4 sutures which were placed circumferentially around to secure the stomach to the anterior abdominal wall. These also were all 2-0 silk sutures and the gastrotomy was secured to the anterior abdominal wall. At this point, the g astrotomy balloon was palpated and felt to be in good apposition to the abdominal wall without tensio n or putting undue stress to cause necrosis of the stomach. I then secured the collar to the anterio r abdominal wall using 2-0 nylon sutures circumferentially around the button on the external surface and I tied a collar stitch around the collar of the gastrostomy tube at the external ring as well to hold it in place. At this point, I placed suction on the gastrostomy tube and gastric contents were coming out at this point. I tested to see if there was any leaks by placing a small amount of liquid into the stomach without any evidence of leakage. I then suctioned that out once again and I irriga randolph the patient's abdomen with the sterile saline at this point and suctioned this out. There was no bleeding and no hemostatic measures were required throughout the procedure other than minor electroc autery. I then brought the omentum and wrapped it around the gastrotomy without tension to sit in a dependent orientation. I then removed the remaining laparotomy pads. All counts were correct, at th is point. I then proceeded to close the abdominal wall using a #1 looped PDS in a running fashion. I then irrigated the skin and subcutaneous tissues and closed them with interrupted irving and a wesley rile dressing placed over top. Patient tolerated the procedure well without evidence of complication and transferred to PACU in good condition. All counts were correct at the end of the case. GILL/LIDIA Voice ID: [id number] Report ID: [id number]
[2022-04-23] MEDS: PIPER TAZO 3.375 GM in NA CHLORIDE 0.9% 100 ML IV SCH ×3 (00:11→16:24)
[2022-04-23] MEDS: HYDROMORPHONE HCL 0.5 MG/0.5 ML INJ IV PRN ×3 (00:12→21:23)
[2022-04-23] MEDS: ONDANSETRON 4 MG/2 ML VIAL IV PRN ×2 (00:12→09:16)
[2022-04-23] MEDS: NA CHLORIDE 0.9% 1,000 ML IV SCH ×3 (00:13→16:24)
[2022-04-23 03:43] LABS: Absolute Lymphocytes (CBC) 0.9 K/uL (0.7-4.9); Hematocrit 29.9 % (36.0-45.0); Lymphocytes % 8.9 % (15.3-44.8); MPV 7.4 fL (7.6-11.3); RBC Red Blood Cell Count 3.29 M/uL (3.86-4.86)
[2022-04-23 04:04] LABS: Magnesium 2.1 mg/dL (1.8-2.4); Potassium 4.6 mmol/L (3.5-5.1)
[2022-04-23] MEDS: PANTOPRAZOLE 40 MG INJ IVP SCH ×2 (10:21→21:23)
[2022-04-23] MEDS: HYDRALAZINE HCL 20 MG/ML VIAL IV PRN (13:14)
[2022-04-23 23:33] LABS: Urine Bilirubin Negative (Negative); Urine Blood 1+ (Negative); Urine Clarity Clear (Clear); Urine Color Yellow (Yellow); Urine Glucose Negative (Negative); Urine Protein 1+ (Negative); Urine Urobilinogen 0.2 mg/dL (0.2-1.0)
[2022-04-23 23:54] LABS: Urine Bacteria <20 /HPF (<20); Urine RBC <5 /HPF (None Seen)
[2022-04-24] MEDS: PIPER TAZO 3.375 GM in NA CHLORIDE 0.9% 100 ML IV SCH ×2 (02:41→08:58)
[2022-04-24 03:59] LABS: Hematocrit 28.1 % (36.0-45.0); MCV 90.9 fL (80-100); MPV 7.5 fL (7.6-11.3); RBC Red Blood Cell Count 3.09 M/uL (3.86-4.86)
[2022-04-24 04:10] LABS: Magnesium 2.1 mg/dL (1.8-2.4); Potassium 4.1 mmol/L (3.5-5.1)
--- NOTE | 2022-04-24 06:39 | P.PN ---
Date of Service: 04/24/22 Subjective: ROS: 10 point ROS as noted above, otherwise negative Physical Exam: Gen: NAD, AOx3 HEENT: normal conjunctiva, sclera anicteric CV: regular rate & rhythm, no edema Pulm: non-labored respirations, clear bilaterally Abd: soft, non-tender, non-distended, G tube in place., abdominal binder in place Neuro: normal speech, normal affect, moves all extremities vitals reviewed Problem List organoaxial gastric volvulus RENETTA on CKDIII Hiatal hernia Afib on eliquis CAD HTN GERD Hypothyroidism surgery following, CLD; can lower / dc IVF once tolerating continue Zosyn Protonix BID; IV for now while NPO pain meds as needed Dr. Hernandez consulted; s/p gastropexy / G tube placement Monitor for GI bleed. Hyperkalemia resolved. Monitor and optimize electrolytes. PT consult VTE: SCDs Code: Full Dispo: home vs SNF, ~2 days Time Spent Managing Pts Care (In Minutes): 35
[2022-04-24] MEDS: HYDRALAZINE HCL 20 MG/ML VIAL IV PRN (08:58)
[2022-04-24] MEDS: PANTOPRAZOLE 40 MG INJ IVP SCH (08:58)
[2022-04-24] MEDS: NA CHLORIDE 0.9% 1,000 ML IV SCH (08:58)
[2022-04-24 17:00] VITALS: BP 173/73; TEMP 98.6
--- NOTE | 2022-04-24 20:35 | P.PN ---
Subjective Date of Service: 04/24/22 Primary Care Provider: Gary Chief Complaint: Organoaxial Volvulus Subjective: Improving (Patient toleraing clears well, no issues, minimal abodminal incisional tenderness, passing gas. feels well.) Physical Examination - Vital Signs Temperature: 98.6 F Blood Pressure: 173/73 Pulse: 93 Respirations: 14 Pulse Ox (%): 94 - Physical Exam General: Alert, In no apparent distress, Cooperative Gastrointestinal: Other (soft, mild appropriate TTP, ND, incisions clean and dry, G-tube clamped, clear currently. ) Assessment And Plan - Current Problems (Diagnosis) (1) Organoaxial gastric volvulus Status: Acute Plan: S/P Exploratory Laparotomy and reduction of stomach with gastropex, Odalis gastostomy placement - advance diet as tolerated - ok to DC from surgical standpoint - follow up in clinic in 1 week - discussed with patient and contact info given
--- NOTE | 2022-04-24 21:20 | P.DS ---
Admission Date: 04/21/22 Discharge Date: 04/24/22 Primary Care Provider: Gary Disposition: ROUTINE DISCHARGE Discharge Condition: GOOD Reason for Admission: Organoaxial Volvulus Consultations: General Surgery - Dr. Hernandez GI - Dr. Lala Brief History of Present Illness: 87-year-old female with history of afib on eliquis, hypertension, GERD, and CKD3 who presented to the ED with complaints of vomiting. Patient reports that 2 days ago she fell and hit the back of her head/neck without LOC and today she started vomiting. Head CT negative for acute findings. CT abdomen pelvis showed "findings concerning for organoaxial volvulus of the stomach. The esophagus is dilated with fluid/particular matter." Her blood pressures been high in the 200s systolic. She has recently been diagnosed with orthostatic hypotension and subsequently been taken off her antihypertensives. General surgery was consulted who came and evaluated the patient. NG tube was inserted. Patient denies any pain. She is admitted for further evaluation and treatment. Hospital Course: Problem List organoaxial gastric volvulus RENETTA on CKDIII Hiatal hernia Afib on eliquis CAD HTN GERD Hypothyroidism Patient presented with abdominal pain, nausea, vomiting. Evaluation in the ED noted organoaxial gastric volvulus. General surgery was consulted, patient underwent surgery -gastropexy and G-tube placement by Dr. Hernandez. Patient's diet was slowly advanced, which she was tolerating full liquid diet without any pain/discomfort. + flatus. She ambulated >150ft with walker. She was deemed stable for discharge home. Discharged home with pantoprazole twice a day for 1 month, and then can resume her omeprazole daily. Instructed on how to flush the g-tube. Follow-up with general surgery - Dr. Hernandez in 1 week. Call office to schedule appointment Follow-up with PCP within 1 week Continue on full liquid diet. Ok to start slowly incorporating soft foods. Physical Exam: Gen: NAD, AOx3 CV: regular rate & rhythm, no edema Pulm: non-labored respirations, clear bilaterally Abd: soft, non-tender, non-distended, G tube in place., abdominal binder in place Neuro: normal speech, normal affect, moves all extremities Vital Signs/Physical Exam: Temp Pulse Resp BP Pulse Ox 98.6 F 93 H 14 173/73 H 94 04/24/22 20:35 04/24/22 20:35 04/24/22 20:35 04/24/22 20:35 04/24/22 20:35 Laboratory Data at Discharge: WBC 9.50 K/uL (4.3-10.9) 04/24/22 02:57 Hgb 9.6 g/dL (12.0-15.0) L 04/24/22 02:57 Hct 28.1 % (36.0-45.0) L 04/24/22 02:57 Plt Count 245 K/uL (152-406) 04/24/22 02:57 Sodium 135 mmol/L (136-145) L 04/24/22 02:57 Potassium 4.1 mmol/L (3.5-5.1) 04/24/22 02:57 BUN 25 mg/dL (7-18) H 04/24/22 02:57 Creatinine 1.15 mg/dL (0.55-1.3) 04/24/22 02:57 Glucose 107 mg/dL (74-106) H 04/24/22 02:57 Phosphorus 4.0 mg/dL (2.5-4.9) 04/22/22 04:06 Magnesium 2.1 mg/dL (1.8-2.4) 04/24/22 02:57 Total Bilirubin 0.7 mg/dL (0.2-1.0) 04/22/22 04:06 AST 11 U/L (15-37) L 04/22/22 04:06 ALT 21 U/L (12-78) 04/22/22 04:06 Alkaline Phosphatase 48 U/L (45-117) 04/22/22 04:06 Triglycerides 48 mg/dL (<150) 04/22/22 04:06 Cholesterol 145 mg/dL (<200) 04/22/22 04:06 HDL Cholesterol 63 mg/dL (40-60) H 04/22/22 04:06 Cholesterol/HDL Ratio 2.30 04/22/22 04:06 Lipase 156 U/L (73-393) 04/21/22 19:35 Home Medications: RX: Levothyroxine [Synthroid*] 1 tab PO DAILY #30 tab 07/12/16 RX: Mirabegron [Myrbetriq] 50 mg PO DAILY 01/05/21 RX: Apixaban [Eliquis *] 2.5 mg PO BID #60 tablet 02/04/22 RX: Amiodarone HCl [Cordarone*] 1 tab DAILY 04/22/22 RX: Fluoxetine HCl 1 tab DAILY 04/22/22 RX: Omeprazole [Prilosec] 40 mg DAILY 04/22/22 RX: Spironolactone 1 tab DAILY 04/22/22 Pantoprazole Sodium [Protonix] 40 mg PO BID 30 Days #60 tab 04/24/22 New Medications: Pantoprazole Sodium [Protonix] 40 mg PO BID 30 Days #60 tab Physician Discharge Instructions: Patient presented with abdominal pain, nausea, vomiting. Evaluation in the ED noted organoaxial gastric volvulus. General surgery was consulted, patient underwent surgery -gastropexy and G-tube placement by Dr. Hernandez. Patient's diet was slowly advanced, which she was tolerating full liquid diet without any pain/discomfort. + flatus. She ambulated >150ft with walker. She was deemed stable for discharge home. Discharged home with pantoprazole twice a day for 1 month, and then can resume her omeprazole daily. Instructed on how to flush the g-tube. Follow-up with general surgery - Dr. Hernandez in 1 week. Call his office to schedule appointment Follow-up with PCP within 1 week Continue on full liquid diet. Ok to start slowly incorporating soft foods. Followup: Gen Hernandez MD [ACTIVE - CAN ADMIT] - Angelito Vega MD [Primary Care Provider] - Time spent managing pt's care (in minutes): 45
== END 2022-04-24 17:23 | disposition home or self-care (01) | DRG 328 ==
LOC: ER 18:51 → ERHOLD 22:27 → 4TH 04-22 14:34
PROVIDERS: ADMIT Internal Medicine; ATTEND Hospitalist
PROC: 0DS60ZZ Reposition Stomach, Open Approach (ICD-10-PCS; principal; 2022-04-22 11:30)
DX: K31.89 Other diseases of stomach and duodenum (principal); K21.9 Gastro-esophageal reflux disease without esophagitis; E87.5 Hyperkalemia; K44.9 Diaphragmatic hernia without obstruction or gangrene; I25.10 Atherosclerotic heart disease of native coronary artery without angina pectoris; E03.9 Hypothyroidism, unspecified; N18.30 Chronic kidney disease, stage 3 unspecified; I25.2 Old myocardial infarction; Z88.5 Allergy status to narcotic agent; Z88.0 Allergy status to penicillin; Z88.1 Allergy status to other antibiotic agents; Z88.8 Allergy status to other drugs, medicaments and biological substances; Z79.82 Long term (current) use of aspirin; Z79.01 Long term (current) use of anticoagulants; Z91.040 Latex allergy status; Z90.49 Acquired absence of other specified parts of digestive tract; Z79.890 Hormone replacement therapy; Z79.899 Other long term (current) drug therapy; Z90.710 Acquired absence of both cervix and uterus; Z20.822 Contact with and (suspected) exposure to COVID-19
CPT/HCPCS: 36415; 70450; 71045; 72125; 74018; 74177; 80048; 80053; 80061; 81001; 83605; 83690; 83735; 84100; 84443; 84484; 85025; 85027; 87086; 87088; 87811; 93005; 94010; 96374; 96375; 97116; 97161; 97530; 99285; A4216; C9113; J0360; J1170; J1815; J2001; J2270; J2405; J2543; J2704; J2710; J3010; J7030; Q9967

== ENCOUNTER 2022-07-22 06:45 | Inpatient (IN) | payer OTHER ==
--- OUTSIDE RECORDS SUMMARY | 2022-07-22 06:56 | XMS REPORT | Continuity of Care Document ---
:1935 Author Organization [facility] [place] t Address [address] [place] [address] [address]. [address] [place] [address] Care Team Providers Name Role Phone Yusuf Gibbons MD Primary Care Physician Gurwinder Haro Attending Clinician Unavailable RIKI REYEZ Attending Clinician Unavailable YUSUF GIBBONS Attending Clinician Unavailable , [facility] Infusion Nurse Attending Clinician Unavailable Yusuf Gibbons MD Attending Clinician Doctor Unassigned, [place] [facility] [place] Attending Clinician Unavailable Therapy, [facility] Covid Infusion Attending Clinician Unavailable Ivan Fuentes MD Attending Clinician IVAN FUENTES Attending Clinician Unavailable REENA BEVERLY Attending Clinician Unavailable Deirdre Bowie PA-C Attending Clinician Reena Kerr Attending Clinician Iván Cowan Attending Clinician Unavailable UNKNOWN Attending Clinician Unavailable Neida Jones Attending Clinician [phone] Iván Cowan MD Attending Clinician Meaghan Antony Attending Clinician MEAGHAN CASTREJON Attending Clinician Unavailable Riki Reyez MD Attending Clinician Only, Adc [...] Policy Number Effective Date Expiration Date S [facility] [place] MEDICARE PART A \\T\\ [id number] 1999 B 00:00:00 [place] [id number] 2016 00:00:00 [place] [id number] 2020 BENEFITS 00:00:00 Problems Condition Condition Condition Status Onset Resolution Last Treating Co mments Source Name Details Category Date Date Treatment Clinician Date CCL / CCL / Diagnosis Active 2018-082019-06-02 Mem oria RENAL RENAL 0- 05:41:00 l STENT STENT 00:00: Conrad Active 00 05/25/2019 [facility] NEW PT NEW PT Diagnosis Active 2019-05-05 Me stevens CONSULT - CONSULT - 04-23 14:43:00 l 2ND 2ND 00:00: Conrad OPINION OPINION 00 Active 04/23/2019 [facility] ATHEROSCLE ATHEROSCL Diagnosis Active 2016-11-19 Memoria ROSIS OF EROSIS OF 10-17 13:05:00 l METLAKATLA METLAKATLA 00:00: Conrad ARTERIES ARTERIES 00 OF EX OF EX Active 10/17/2016 [facility] CCL/LEFT CCL/LEFT Diagnosis Active 2016-10-21 Memoria 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 OPIZeinab Carlson Gastroesop Gastroeso Problem Resolve 2020-09-01 Memoria hageal phageal d 22:24:26 l reflux reflux Conrad disease disease (disorder) (disorder) Resolved Problem 09/01/2020 [facility], MARIE Robyn History of History Problem Resolve 2020-09-01 Memoria - surgery of - d 22:24:26 l (context-d surgery Mela nn ependent (context-d category) ependent category) Resolved Problem 09/01/2020 [facility], OPID Robyn History of History Problem Resolve 2020-09-01 Memoria - vertigo of - d 22:24:26 l (context-d vertigo Mela nn ependent (context-d category) ependent category) Resolved Problem 09/01/2020 [facility], OPID Robyn Hypertensi Problem Resolve 2020-09-01 Memoria ve Hypertensi d 22:24:26 l disorder, ve [place] systemic disorder, arterial systemic (disorder) arterial (disorder) Resolved Problem 09/01/2020 [facility], MARIE Carlson ENCNTR FOR ENCNTR Diagnosis Active 2019-05-05 Memoria GENERAL FOR 14:43:00 l ADULT GENERAL Conrad MEDICAL ADULT EXAM W/ MEDICAL EXAM W/ Active [facility] ILLNESS, ILLNESS, Diagnosis Active 2016-05-01 Memoria UNSPECIFIE UNSPECIFIE 22:08:00 l D D Active Conrad [facility] No known No known Disease Unive rs active active ity of problems problems [facility] [place] Myocardial Problem Resolve 2020-09-01 2020-09-01 Memoria infarction Myocardial d 08-25 22:24:26 22:24:26 l (disorder) infarction 00:00: [place] (disorder) 00 Resolved 08/25/2002 Problem 09/01/2020 [facility], MARIE Carlson Allergies, Adverse Reactions, Alerts Allergy Allergy Status Severity Reaction(s) Onset Inactive Treating Comm ents Source Name Type Date Date Clinician codeine DA Active U NAUSEA [facility] 09-14 [place] 00:00: [facility] 00 are [facility] Penicill DA Active U HIVES [facility] ins 09-14 [place] 00:00: Healthc 00 are [facility] Sulfa DA Active U RASH [facility] (Sulfona 09-14 [place] mide 00:00: Health Antibiot 00 are ics) [facility] CODEINE DRUG Active Unknown-Cmnt Uni vers INGREDI 2-11 ity of 00:00: [place] [facility] Codeine Propensi Active Unknown - Gives Univ ers ty to See comments 2-11 patient ity of adverse 00:00: the [place] reaction 00 opposite Medica l s effects Branch from codeine per patient Nitrofur Propensi Active Hives Univer s antoin ty to 05-22 ity of Monohyd/ adverse 00:00: [place] M-Cryst reaction 00 Medical s Branch NITROFUR DRUG Active Hives Univers ANTOIN 05-22 ity of MONOHYD/ 00:00: [place] M-CRYST 00 Medical Branch PENICILL Drug Active Unknown-Cmnt Un amalia INS Class 05-22 ity of 00:00: [place] 00 Medical Branch SULFUR DRUG Active Hives Univers INGREDI 05-22 ity of 00:00: [place] 00 Medical Branch Sulfur Propensi Active Hives Univers ty to 05-22 ity of adverse 00:00: [place] reaction 00 Medical s Branch Penicill Propensi Active Unknown - Childhood Univers ins ty to See comments 05-22 allergy ity of adverse 00:00: [place] reaction 00 [facility] s Branch penicill penicill Active Memori a [...] Conrad 00 codeine codeine Active Memoria l [place] niacin niacin Active Memoria l [place] Plavix Plavix Active Memoria l [place] Celebrex Celebrex Active Memori a l [place] Keflex Keflex Active Memoria l [place] penicill penicill Active Memori a ins ins l Conrad sulfa sulfa Active Memoria drugs drugs l [place] Social History Social Habit Start Date Stop Date Quantity Comments Source History of Current smoker University of tobacco use [facility] [place] Exposure to 2022-05-13 2022-05-23 Not sure University of SARS-CoV-2 00:00:00 13:43:00 [facility] (event) [place] Tobacco use and 2022-03-13 2022-03-13 Smokeless tobacco Un iversity of exposure 00:00:00 00:00:00 non-user [facility] [place] Tobacco Comment 2022-03-13 2022-03-13 quit 30 yrs ago Univ ersity of 00:00:00 00:00:00 [facility] [place] Sex Ass[birth year] At [birth year] [facility] 00:00:00 00:00:00 Smoking Status Start Date Stop Date Source Tobacco smoking consumption [facility] unknown Social History 2020-08-23 14:59:17 2020-08-23 14:59:17 [facility] Medications Ordered Filled Start Stop Current Ordering Indication Dosage Frequency Signature Comments Components Source Medication Medication Date Date Medication? Clinician (SIG) Name Name denosumab 2021- No [id number] 60mg 60 mg, U nivers (PROLIA) 05-23 [place] ity of injection 18:11: 18:17 [place] 60 mg 00 :00 1 dose, On Med ical [place] Branch 05/23/22 at 1315, Routine
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
Reaso n for non-formul miquel use: PATIENT CURRENTLY TAKING NONFORMULA RY PRODUCT d-mannose Yes Take by Unive rs 500 mg Cap 7-20 mouth. ity of 17:29: [address] spironolact Yes Take by Uni vers one 25 mg/5 7-20 mouth ity of mL oral 17:29: daily. [place] suspension [address] [place] [address] levothyroxi Yes 75mg Take 75 mg Univers ne sodium 7-20 by mouth. ity o f (LEVOTHROID 17:29: [place] ORAL) [address] [place] [address] mirabegron Yes Take by Uni vers (MYRBETRIQ) 7-20 mouth ity of 50 mg 17:29: daily. [place] tablet [address] [place] [address] d-mannose Yes Take by Unive rs 500 mg Cap 7-20 mouth. ity of 17:29: [address] spironolact Yes Take by Uni vers one 25 mg/5 7-20 mouth ity of mL oral 17:29: daily. [place] suspension [address] [place] [address] levothyroxi Yes 75mg Take 75 mg Univers ne sodium 7-20 by mouth. ity o f (LEVOTHROID 17:29: [place] ORAL) [address] [place] [address] mirabegron Yes Take by [facility] ers (MYRBETRIQ) 7-20 mouth ity of 50 mg 17:29: daily. [place] tablet 15 Medical Branch d-mannose Yes Take by [facility] rs 500 mg Cap 7-20 mouth. ity of 17:29: [place] 15 Medical Branch spironolact Yes Take by Uni vers one 25 mg/5 7-20 mouth ity of mL oral 17:29: daily. [place] suspension 15 Medical Branch levothyroxi Yes 75mg Take 75 mg Univers ne sodium 7-20 by mouth. ity o f (LEVOTHROID 17:29: [place] ORAL) 15 Medical Branch mirabegron Yes Take by [facility] ers (MYRBETRIQ) 7-20 mouth ity of 50 mg 17:29: daily. [place] tablet 15 Medical Branch amiodarone Yes 200mg Take 200 Un amalia 200 mg 7-12 mg by ity of tablet 00:00: mouth in [place] 00 the Medical morning. Branch amiodarone Yes 200mg Take 200 Un am[place] 200 mg 7-12 mg by ity of tablet 00:00: mouth in [place] 00 the Medical morning. Branch amiodarone Yes 200mg Take 200 Un am[place] 200 mg 7-12 mg by ity of tablet 00:00: mouth in [place] 00 the Medical morning. Branch amLODIPine Yes 2.5mg Take 2.5 Un [place] 2.5 mg 6-20 mg by ity of tablet 00:00: mouth in [place] 00 the Medical morning Branch and 2.5 mg in the evening. amLODIPine 0 Yes 2.5mg Take 2.5 Un am[place] 2.5 mg 6-20 mg by ity of tablet 00:00: mouth in [place] 00 the Medical morning Branch and 2.5 mg in the evening. amLODIPine 2021-0 Yes 2.5mg Take 2.5 Un am[place] 2.5 mg 6-20 mg by ity of tablet 00:00: mouth in [place] 00 the Medical morning Branch and 2.5 mg in the evening. ELIQUIS 2.5 0 Yes 2.5mg Take 2.5 U nivers mg tablet 6-17 mg by ity of 00:00: mouth 2 [place] [address] (two) Medical times Branch daily. ELIQUIS 2.5 2021-0 Yes 2.5mg Take 2.5 U nivers mg tablet 6-17 mg by ity of 00:00: mouth 2 [place] (two) Medical times Branch daily. ELIQUIS 2.5 2021-0 Yes 2.5mg Take 2.5 U nivers mg tablet 6-17 mg by ity of 00:00: mouth 2 [place] (two) Medical times Branch daily. SERTraline 2020-0 Yes 12.5mg Take 12.5 Univers 25 mg 8-06 mg by ity of tablet 11:25: mouth. [place] Medical [facility] Cranberry 0 Yes 500mg Take 500 Uni vers 500 mg Cap 8-06 mg by ity of 11:25: mouth 2 [place] [address] (two) Medical times Branch daily. iron,carb/f 2020-0 Yes 1{tbl} Take 1 Un amalia olic ac/vit 8-06 tablet by ity of Bcomp,C 11:25: mouth 2 [place] (IRON-FOLIC 07 (two) Medical 500 ORAL) times Branch daily. SERTraline 2020-0 Yes 12.5mg Take 12.5 Univers 25 mg 8-06 mg by ity of tablet 11:25: mouth. [place] [address] Medical Branch Cranberry 0 Yes 500mg Take 500 Uni vers 500 mg Cap 8-06 mg by ity of 11:25: mouth 2 [place] (two) Medical times Branch daily. iron,carb/f 2020-0 Yes 1{tbl} Take 1 Un [place] olic ac/vit 8-06 tablet by ity of Bcomp,C 11:25: mouth 2 [place] (IRON-FOLIC 07 (two) Medical 500 ORAL) times Branch daily. SERTraline 2020-0 Yes 12.5mg Take 12.5 Univers 25 mg 8-06 mg by ity of tablet 11:25: mouth. [place] [address] Medical Branch Cranberry 2020-0 Yes 500mg Take 500 Uni vers 500 mg Cap 8-06 mg by ity of 11:25: mouth 2 [place] 07 (two) Medical times Branch daily. iron,carb/f 2020-0 Yes 1{tbl} Take 1 Un [place] olic ac/vit 8-06 tablet by ity of Bcomp,C 11:25: mouth 2 [place] (IRON-FOLIC 07 (two) Medical 500 ORAL) times Branch daily. folic acid Yes [id number] Take by Univers (FA-8) 0.8 4-15 mouth. ity of mg Cap 10:51: [address] Magnesium Yes [id number] 500mg Take 500 Univers 250 mg Tab 4-15 mg by ity of 10:51: mouth. [address] aspirin 81 0 Yes 81mg Take 81 mg U nivers mg EC 4-15 by mouth ity of tablet 10:51: daily. [address] CALCIUM Yes Take by Univers CITRATE 4-15 mouth. ity of ORAL 10:51: [address] NIFEdipine Yes Nifedical Un [place] XL 30 mg 24 4-15 XL 30 mg ity of hr tablet 10:51: tablet,ext [place] [address] [facility] release [place] ramipriL 10 Yes 10mg Take 10 mg Univers mg capsule 4-15 by mouth ity o f 10:51: daily. [address] folic acid Yes [id number] Take by Univers (FA-8) 0.8 4-15 mouth. ity of mg Cap 10:51: [address] Magnesium Yes [id number] 500mg Take 500 Univers 250 mg Tab 4-15 mg by ity of 10:51: mouth. [address] aspirin 81 0 Yes 81mg Take 81 mg U nivers mg EC 4-15 by mouth ity of tablet 10:51: daily. [address] CALCIUM Yes Take by Univers CITRATE 4-15 mouth. ity of ORAL 10:51: [address] NIFEdipine Yes Nifedical Un [place] XL 30 mg 24 4-15 XL 30 mg ity of hr tablet 10:51: tablet,ext [place] [facility] ramipriL 10 0 Yes 10mg Take 10 mg Univers mg capsule 4-15 by mouth ity o f 10:51: daily. [address] folic acid Yes [id number] Take by Univers (FA-8) 0.8 4-15 mouth. ity of mg Cap 10:51: [address] Magnesium 0 Yes [id number] 500mg Take 500 Univers 250 mg Tab 4-15 mg by ity of 10:51: mouth. [address] aspirin 81 Yes 81mg Take 81 mg U nivers mg EC 4-15 by mouth ity of tablet 10:51: daily. [address] CALCIUM Yes Take by Univers CITRATE 4-15 mouth. ity of ORAL 10:51: [address] NIFEdipine Yes Nifedical Un [place] XL 30 mg 24 4-15 XL 30 mg ity of hr tablet 10:51: [place] [address] [place] [address] Medical release Branch ramipriL 10 Yes 10mg Take 10 mg Univers mg capsule 4-15 by mouth ity o f 10:51: daily. 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 May dispose of applicator ., # 43 gm, 3 Refill(s), [facility] 160.02, cm, 06/14/20 10:46:00 CDT, Height, 60, kg, 06/14/20 10:46:00 CDT, Weight 24 HR 2019-08 Yes 50 mg = 1 Memoria mirabegron 0-21 tab, PO, l 50 MG 16:58: Daily, # [place] Extended 00 30 tab, 0 Release Refill(s), Tablet Pharmacy: [Myrbetriq] [facility], 160.02, cm, 06/14/20 10:46:00 CDT, Height, 60, kg, 06/14/20 10:46:00 CDT, Weight Estradiol 2019-08 Yes See Memoria 0.1 MG/ML 0-21 Instructio l Vaginal 16:58: ns, apply Mela nn Cream 00 pea size [Estrace] amount to urethra and vagina 3xweek. May dispose of applicator ., # 43 gm, 3 Refill(s), Pharmacy: [facility], 160.02, cm, 06/14/20 10:46:00 CDT, Height, 60, [...] Nitroglycer 2018-08 No Notes: Arturo sony in (Same l 14:55: as:Nitroqu Conrad 00 ick, [...] = 1 Mem oria 5 mg oral 0- tab, PO, l tablet, 10:59: QAM, 0 [place] 00 Refill(s) release ramipril 2018-08 Yes 10 mg = 1 M emoria mg oral 0 cap, PO, l capsule 10:59: BID, 0 [place] 00 Refill(s) [place] 2018-08 Yes 1 tab, PO, Memor ia Calcium 0-09 BID, 0 l with 10:59: Refill(s) [place] Vitamin D 00 Chelated 2018-08 Yes See Memoria Magnesium 0-09 Instructio l 10:59: ns, 250 mg Conrad 00 PO QPM, 0 Refill(s) oxybutynin 2018-08 Yes 5 mg = 1 Mem oria 5 mg oral 0-09 tab, PO, l tablet, 10:59: QAM, 0 [place] extended 00 Refill(s) release ramipril 2018-08 Yes 10 mg = 1 M emoria mg oral 0-09 cap, PO, l capsule 10:59: BID, 0 [place] 00 Refill(s) [place] 2018-08 Yes 1 tab, PO, Memor ia Calcium 0-09 BID, 0 l with 10:59: Refill(s) [place] Vitamin D 00 Chelated 2018-08 Yes See Memoria Magnesium 0-09 Instructio l 10:59: ns, 250 mg [place] 00 PO QPM, 0 Refill(s) Bifidobacte Yes [...] l oral tablet 19:55: ns, Take 2 [place] 00 tablets by mouth the first day then 1 tablet by mouth daily on days 2-5., # 6 tab, 0 Refill(s) aspirin 81 No Notes: Do Me moria mg tablet, 3-07 not crush l enteric 15:00: or chew. 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, Duration: 30 day, Stop date: 11/27/16 9:00:00 CDT ferrous No 325 mg, 1 Memor ia sulfate - tab, l 15:00: Route: PO, Drug form: ECTAB, Daily, Dosing Weight 64.545, kg, Start date: 10/29/16 9:00:00 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, Duration: 30 day, Stop date: 11/27/16 [...] Weight 64.545, kg, Start date: 10/29/16 6:30:00 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, Duration: 30 day, Stop date: 11/27/16 6:30:00 CDT Synthroid 2017-0 No 75 Memoria 3-07 microgram, l 12:30: 1 tab, Conrad 00 Route: PO, Drug form: TAB, Q630AM, Dosing Weight 64.545, kg, Start date: 10/29/16 6:30:00 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, Duration: 30 day, Stop date: 11/27/16 6:30:00 CDT Ticagrelor No Notes: Memor ia 3-07 (Same as: l 12:00: Brilinta) [place] Ticagrelor 2016- No Notes: Memor ia 3-07 (Same as: l 12:00: Brilinta) [place] 00 ticagrelor No Notes: Memor ia 3-07 (Same as: l 04:00: Brilinta) ticagrelor No Notes: Memor ia 3-07 (Same as: l 04:00: Brilinta) Saline No Notes: Memoria Flush 0.9% 3-07 (Same as: l 03:00: BD Conrad 00 Posiflush) Brilinta No 60 mg, Memoria 3-07 Route: PO, l 03:00: Drug form: [place] 00 TAB, Q12H, Dosing Weight 64.545, kg, Start date: 10/28/16 21:00:00 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 [place] 00 (Same as: Phenergan) Phenergan No Notes: Do Mem oria 3-07 not give l 01:52: IV push. [place] 00 (Same as: Phenergan) Hydralazine No Notes: Arturo sony - (Same as: l 00:36: Apresoline Conrad 00 ) Push over 5 minutes Hydralazine No Notes: Arturo sony - (Same as: l 00:36: Apresoline [place] 00 ) Push over 5 minutes Saline No Notes: Memoria Flush 0.9% 10-28 (Same as: l 23:59: BD [place] 00 Posiflush) clopidogrel No 300 mg, Mem oria 10-28 Route: PO, l 23:59: Drug form: [place] 00 TAB, ONCE, Dosing Weight 64.545, kg, Priority: NOW, Start date: 10/28/16 17:59:00 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, Stop date: 10/28/16 17:59:00 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 Nitroglycer No Notes: Arturo sony in 10-28 (Same l 23:59: as:Nitroqu [place] 00 ick, Nitrostat) "Do Not Crush" Sublingual tablet Acetaminoph No Notes: Do M emoria en 10-28 not exceed l 23:59: 4 gm/day. 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, Stop date: 10/28/16 17:59:00 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 Nitroglycer No Notes: Arturo sony in [...] Total Volume: 25, Start date: 10/28/16 17:59:00 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, Duration: 24 hr, Stop date: 10/29/16 17:58:00 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 Midodrine No 2.5 mg, Memor ia 10-28 Route: PO, l 23:00: Drug form: [place] 00 TAB, TID, Dosing Weight 64.545, kg, Start date: 10/28/16 17:00:00 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, Duration: 30 day, Stop date: 11/27/16 13:00:00 CDT oxybutynin No Notes: Memor ia 3-06 Same as: l 23:00: Ditropan) Triamcinolo No Notes: Arturo sony ne 3-06 (Same As: l Acetonide 23:00: Kenalog) Herm angela 0.001 MG/MG 00 Topical Ointment Midodrine No 2.5 mg, Memor ia 3-06 Route: PO, l 23:00: Drug form: [place] 00 TAB, TID, Dosing Weight 64.545, kg, Start date: 10/28/16 17:00:00 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, Duration: 30 day, Stop date: 11/27/16 13:00:00 CDT oxybutynin No Notes: Memor ia 3-06 Same as: l 23:00: Ditropan) Conrad 00 Triamcinolo No Notes: Arturo sony ne 3-06 (Same As: l Acetonide 23:00: Kenalog) Herm angela 0.001 MG/MG 00 Topical Ointment lansoprazol No Notes: Arturo sony e 3-06 Take 1 l 22:30: hour Conrad 00 before or 2 hours after meal; Expires in 14 days. Shake well before use. (Same as:Kaiden d) Compound ed Product - formulatio n not commercial ly available* * lansoprazol 2016-0 No Notes: Arturo sony e 10-28 Take 1 l 22:30: hour [place] 00 before or 2 hours after meal; Expires in 14 days. Shake well before use. (Same as:Kaiden d) Compound ed Product - formulatio n not commercial ly available* * aspirin 81 2017-0 Yes 81 mg, PO, M emoria mg tablet, 10-28 Daily, # l enteric 22:09: 120 tab, 0 Herm angela coated 00 Refill(s) ticagrelor 2017-0 Yes 60 mg, PO, M emoria 60 mg oral 10-28 Q12H, # 60 l tablet 22:09: tab, 0 Conrad 00 Refill(s) aspirin 81 2017-0 Yes 81 mg, PO, M emoria mg tablet, 10-28 Daily, # l enteric 22:09: 120 tab, 0 Herm angela coated 00 Refill(s) ticagrelor 2017-0 Yes 60 mg, PO, M emoria 60 mg oral 10-28 Q12H, # 60 l tablet 22:09: tab, 0 [place] 00 Refill(s) Nitroglycer 2016-0 No 0.4 mg, 1 M emoria in 10-28 tab, l 22:00: Route: SL, [place] 00 Drug form: TAB, Q5Min, Dosing Weight 64.545, kg, PRN Chest Pain, Start date: 10/28/16 16:00:00 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, Duration: 3 doses or times, Stop date: Limited # of times Sodium 2016-0 No 750 mL, Memoria Chloride 10-28 Rate: 75 l 0.154 22:00: ml/hr, Conrad MEQ/ML 00 Infuse Injectable over: 10 Solution hr, Route: IV, Dosing Weight 64.545 kg, Total Volume: 750, Start date: 10/28/16 16:00:00 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, Duration: 10 hr, Stop date: 10/29/16 1:59:00 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 Nitroglycer 2016-0 No 0.4 mg, 1 M emoria in 3-06 tab, l 22:00: Route: SL, Conrad 00 Drug form: TAB, Q5Min, Dosing Weight 64.545, kg, PRN Chest Pain, Start date: 10/28/16 16:00:00 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, Duration: 3 doses or times, Stop date: Limited # of times Sodium 2017-0 No 750 mL, Memoria Chloride 06 Rate: 75 l 0.154 22:00: ml/hr, Conrad MEQ/ML 00 Infuse Injectable over: 10 Solution hr, Route: IV, Dosing Weight 64.545 kg, Total Volume: 750, Start date: 10/28/16 16:00:00 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, Duration: 10 hr, Stop date: 10/29/16 1:59:00 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 ferrous 2017-0 Yes 325 mg = 1 Arturo sony sulfate 325 3-06 tab, PO, l mg oral 19:32: Daily, # Gal[place] n enteric 00 30 tab, 0 coated Refill(s) tablet pantoprazol 2017 Yes = 1 Pack, M emoria e 40 MG 3-06 PO, Daily, l Granules 19:32: # 30 ea, 0 Her carrizales [Protonix] 00 Refill(s) ferrous 2017-0 Yes 325 mg = 1 Arturo sony sulfate 325 3-06 tab, PO, l mg oral 19:32: Daily, # [place] enteric 00 30 tab, 0 coated Refill(s) tablet pantoprazol 2017- Yes = 1 Pack, M emoria e 40 MG 3-06 PO, Daily, l Granules 19:32: # 30 ea, 0 Her carrizales [Protonix] 00 Refill(s) Sodium 2017-0 No 1,000 mL, Memori a Chloride 10-28 Rate: 75 l 0.154 19:25: ml/hr, Conrad MEQ/ML 00 Infuse Injectable over: 13.3 Solution hr, Route: IV, Dosing Weight 64.545 kg, Total Volume: 1,000, Start date: 10/28/16 13:25:00 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, Duration: 30 day, Stop date: 11/27/16 13:24:00 CDT Sodium 2016-0 No 1,000 mL, Memori a Chloride 10-28 Rate: 75 l 0.154 19:25: ml/hr, [place] MEQ/ML 00 Infuse Injectable over: 13.3 Solution hr, Route: IV, Dosing Weight 64.545 kg, Total Volume: 1,000, Start date: 10/28/16 13:25:00 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, Duration: 30 day, Stop date: 11/27/16 13:24:00 CDT Sodium 2017-0 No 250 mL, Memoria Chloride 3-06 Rate: 250 l 0.154 19:24: ml/hr, Conrad MEQ/ML 00 Infuse Injectable over: 1 Solution hr, Route: IV, Dosing Weight 64.545 kg, Total Volume: 250, Start date: 10/28/16 13:24:00 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, Duration: 30 day, Stop date: 11/27/16 14:23:00 CDT Sodium 2017-0 No 250 mL, Memoria Chloride 3-06 Rate: 250 l 0.154 19:24: ml/hr, [place] MEQ/ML 00 Infuse Injectable over: 1 Solution hr, Route: IV, Dosing Weight 64.545 kg, Total Volume: 250, Start date: 10/28/16 13:24:00 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, Duration: 30 day, Stop date: 11/27/16 14:23:00 CDT midodrine 2016-0 Yes 2.5 mg = 1 Me moria 2.5 mg oral 9-02 tab, PO, l tablet 16:05: TID, # 90 Galen n 00 tab, 0 Refill(s) non-formula Yes 2.5 mg =, M emoria ry 9-02 PO, BID, # l 16:05: 60, [place] 00 Refill(s) 0, MISC midodrine Yes 2.5 mg = 1 Me moria 2.5 mg oral 9-02 tab, PO, l tablet 16:05: TID, # 90 Gal[place] n 00 tab, 0 Refill(s) non-formula 0 Yes 2.5 mg =, M emoria ry 9-02 PO, BID, # l 16:05: 60, [place] 00 Refill(s) 0, MISC Maalox No Notes: Memoria Advanced 04-26 (aluminum l Regular 08:55: hydroxide- Herm angela Strength 00 magnesium SUSP hyd-simeth icone 200-200-20 mg/5ml 30 ml ud TRICIA) Maalox No Notes: Memoria Advanced 04-26 (aluminum l Regular 08:55: hydroxide- Herm angela Strength 00 magnesium SUSP hyd-simeth icone 200-200-20 mg/5ml 30 ml ud TRICIA) Sertraline No Sertraline M emoria 25 mg - 25 mg l tablet 02:00: tablet, Conrad [...] chloride 04-25 (Same as: l 14:30: Potassium [place] 00 Chloride) potassium No Notes: Memori a chloride 04-25 (Same as: l 14:30: Potassium Conrad 00 Chloride) Mag-Ox 400 No 500 mg, Arturo sony 04-25 Route: PO, l 14:00: Drug form: [place] 00 TAB, Daily, Dosing Weight 68.636, kg, [...] day, Stop date: 05/23/16 21:00:00 CDT Sertraline 2015-0 No Sertraline M emoria 25 mg 04-25 25 mg l tablet 02:00: tablet, Conrad 00 0.5 tab, Drug form: MISC, Route: PO, Bedtime, 04/24/16 21:00:00 CDT, Duration: 30 day, Stop date: 05/23/16 21:00:00 CDT oxybutynin 2015-0 No Notes: Memor ia 04-24 Same as: l 22:00: Ditropan) [place] Pindolol 2016-0 No 2.5 mg, Memori a 8-31 Route: PO, l 22:00: Drug form: Conrad 00 TAB, BID, Dosing Weight 68.636, kg, Start date: 04/24/16 17:00:00 CDT, Duration: 30 day, Stop date: 05/24/16 9:00:00 CDT oxybutynin 2016-0 No 5 mg, Memori a extended 8-31 Route: PO, l release 22:00: Drug form: Herm angela 00 ERTAB, BID, Dosing Weight 68.636, kg, Start date: 04/24/16 17:00:00 CDT, Duration: 30 day, Stop date: 05/24/16 9:00:00 CDT oxybutynin 2015-0 No Notes: Memor ia 04-24 Same as: l 22:00: Ditropan) [place] 00 Pindolol 2016-0 No 2.5 mg, Memori a 8-31 Route: PO, l 22:00: Drug form: Conrad 00 TAB, BID, Dosing Weight 68.636, kg, Start date: 04/24/16 17:00:00 CDT, Duration: 30 day, Stop date: 05/24/16 9:00:00 CDT oxybutynin 2016-0 No 5 mg, Memori a extended 8-31 Route: PO, l release 22:00: Drug form: Herm angela 00 ERTAB, BID, Dosing Weight 68.636, kg, Start date: 04/24/16 17:00:00 CDT, Duration: 30 day, Stop date: 05/24/16 9:00:00 CDT pindolol 5 2016-0 No pindolol 5 M emoria mg tab 8-31 mg tab, l 18:00: 2.5 mg, [place] 00 0.5 tab, Drug form: MISC, Route: PO, BID, 04/24/16 13:00:00 CDT, Duration: 30 day, Stop date: 05/24/16 9:00:00 CDT Midodrine No Notes: Memori a 8-31 (Same l 18:00: as:Proamat Conrad 00 ine) pindolol 5 No pindolol 5 M emoria mg tab 8-31 mg tab, l 18:00: 2.5 mg, [place] 00 0.5 tab, Drug form: MISC, Route: PO, BID, 04/24/16 13:00:00 CDT, Duration: 30 day, Stop date: 05/24/16 9:00:00 CDT Midodrine No Notes: Memori a 8-31 (Same l 18:00: as:Proamat [place] 00 ine) bisoprolol No Notes: Memor ia 8-31 (Same As: l 16:30: Zebeta) Conrad 00 2.5 mg = 1/2 x 5 mg tab bisoprolol No Notes: Memor ia 8-31 (Same As: l 16:30: Zebeta) Conrad 00 2.5 mg = 1/2 x 5 mg tab Keflex No Notes: Memoria 8-31 Take on l 14:00: empty Cornad stomach. (Same As: Keflex) Vitamin D3 No Notes: Memor ia 8-31 Same as : l 14:00: Vitamin D3 Conrad Folic Acid No 0.8 mg, 2 Me moria 8-31 tab, l 14:00: Route: PO, Conrad 00 Drug form: TAB, Daily, Dosing Weight 68.636, kg, Start date: 04/24/16 9:00:00 CDT, Duration: 30 day, Stop date: 05/23/16 9:00:00 CDT Vitamin D3 No 5,000 Memori a 5000 intl 8-31 unit, l units oral 14:00: Route: PO, H ermann capsule 00 Daily, Dosing Weight 68.636, kg, Start date: 04/24/16 9:00:00 CDT, Duration: 30 day, Stop date: 05/23/16 9:00:00 CDT Sertraline No Sertraline M emoria 25 mg 04-24 25 mg l tablet 14:00: tablet, [place] 00 0.5 tab, Drug form: MISC, Route: [...] day, Stop date: 05/23/16 9:00:00 CDT Keflex No Notes: Memoria 04-24 Take on l 14:00: empty stomach. (Same As: Keflex) Vitamin D3 No Notes: Memor ia 04-24 Same as : l 14:00: Vitamin D3 Folic Acid 0 No 0.8 mg, 2 Me moria 04-24 tab, l 14:00: Route: PO, [place] 00 Drug form: TAB, Daily, Dosing Weight [...] 04-24 25 mg l tablet 14:00: tablet, [place] 00 0.5 tab, Drug form: MISC, Route: PO, Daily, 04/24/16 9:00:00 CDT, Duration: 30 day, Stop date: 05/23/16 9:00:00 CDT Sertraline No 12.5 mg, Mem oria 04-24 Route: PO, l 14:00: Drug form: [place] 00 TAB, Daily, Dosing Weight 68.636, kg, [...] ia 04-24 (Same as: l 11:53: Mag-Ox [place] 00 400) Magnesium oxide [id number] g elemental magnesium Dose=____m g magnesium oxide (___mg elemental magnesium) Mag-Ox 400 No Notes: Memor ia 04-24 (Same as: l 11:53: Mag-Ox [place] 00 400) Magnesium oxide [id number] g elemental magnesium Dose=____m g magnesium oxide (___mg elemental magnesium) Hydralazine No Notes: Arturo sony 8-30 (Same as: l 09:51: Apresoline ) Push over 5 minutes Hydralazine No Notes: Arturo sony 8-30 (Same as: l 09:51: Apresoline ) Push over 5 minutes hydrALAZINE No Notes: Arturo sony 8-30 (Same as: l 08:32: Apresoline ) Push over 5 minutes hydrALAZINE No Notes: Arturo sony 8-30 (Same as: l 08:32: Apresoline Conrad ) Push over 5 minutes Hydralazine No Notes: Arturo sony 8-30 (Same as: l 08:09: Apresoline Conrad ) Push over 5 minutes Hydralazine No Notes: Arturo sony 8-30 (Same as: l 08:09: Apresoline [place] ) Push over 5 minutes Ramipril No Notes: Memoria 8-30 (Same l 07:08: as:Altace) Conrad 00 Ramipril No Notes: Memoria 8-30 (Same l 07:08: as:Altace) [place] 00 24 HR No Notes: Memoria Nifedipine [...] a 8-29 Take 1 l 14:10: hour [place] 00 before or 2 hours after meal; Enteral feeds may interefere with the absorption of this medication . (Same as:Synthro id, Levothroid ) Aspirin No Notes: (Do Arturo sony 8-29 Not Crush) l 14:00: Do not [place] 00 crush or chew. Aspirin No Notes: (Do Arturo sony 8-29 Not Crush) l 14:00: Do not [place] 00 crush or chew. Thyroxine No Notes: Memori a 8-29 Take 1 l 11:30: hour Conrad 00 before or 2 hours after meal; Enteral feeds may interefere with the absorption of this medication . (Same as:Synthro id, Levothroid ) Thyroxine No Notes: Memori a 8-29 Take 1 l 11:30: hour [place] 00 before or 2 hours after meal; Enteral feeds may interefere with the absorption of this medication . (Same as:Synthro id, Levothroid ) heparin No Notes: Memoria 8-29 porcine l 05:00: heparin Conrad heparin No Notes: Memoria 8-29 porcine l 05:00: heparin Conrad Ramipril No Notes: Memoria 8- (Same l 03:10: as:Altace) [place] Ramipril No Notes: Memoria 8-29 (Same l 03:10: as:Altace) [place] Phenergan No Notes: Memori a 8- (Same as: l 02:37: Phenergan) [place] 00 6.25 mg = 1/2 x 12.5 mg TAB Phenergan No Notes: Memori a 8-29 (Same as: l 02:37: Phenergan) [place] 00 6.25 mg = 1/2 x 12.5 [...] 04-22 Instructio l tablet 02:36: ns, 0.5 Conrad 00 tab PO Daily 30 day, 1 Refill(s) Aspirin 325 Yes 325 mg = 1 Memoria MG Oral - tab, PO, l Tablet 02:36: Daily, # [...] l 30 MG 02:36: PRN, # 30 [place] Extended 00 tab, 0 Release Refill(s) Tablet magnesium Yes 500 mg = 1 Me moria oxide 500 - tab, PO, l mg oral 02:36: Daily, # Gal[place] n tablet 00 10 tab, 0 Refill(s) ramipril 5 No 5 mg = 1 Mem oria mg oral 29 cap, PO, l capsule 02:36: PRN, # 30 Mela nn 00 cap, 1 Refill(s) Triamcinolo Yes 1 appl, Mem oria ne 04-22 TOP, TID, l Acetonide 02:36: # 15 gm, 0 He rmann 0.001 MG/MG 00 Refill(s) Topical Ointment oxybutynin Yes 5 mg = 1 Mem oria 5 mg oral 8-29 tab, PO, l tablet 02:36: BID, # 60 Galne n 00 tab, 1 Refill(s) ramipril Yes 2.5 mg = 1 Mem oria 2.5 mg oral 29 cap, PO, l capsule 02:36: Daily, 0 Galen n 00 Refill(s) folic acid Yes 0.8 mg = 1 M emoria 0.8 mg oral 04-22 tab, PO, l tablet 02:36: Daily, 0 [place] 00 Refill(s) Cephalexin Yes 500 mg = 1 M emoria 500 MG Oral 04-22 cap, PO, l Capsule 02:36: Daily, # Galen n [Keflex] 00 40 cap, 0 Refill(s) sertraline Yes See Memoria 25 mg oral 04-22 Instructio l tablet 02:36: ns, 0.5 [place] 00 tab PO Daily 30 day, 1 Refill(s) Aspirin 325 Yes 325 mg = 1 Memoria MG Oral 04-22 tab, PO, l Tablet 02:36: Daily, # [place] 00 30 tab, 0 Refill(s) potassium Yes 15 mEq = 1 Me moria citrate 15 04-22 tab, PO, l MEQ 02:36: Daily, 0 Conrad Extended 00 Refill(s) Release Tablet [Urocit-K] Probiotic Yes 1 cap, PO, Me moria Formula 04-22 Daily, 0 l oral 02:36: Refill(s) Conrad capsule 00 24 HR No 30 mg = 1 Memoria Nifedipine 04-22 tab, PO, l 30 MG 02:36: PRN, # 30 [place] Extended 00 tab, 0 Release Refill(s) Tablet magnesium Yes 500 mg = 1 Me moria oxide 500 04-22 tab, PO, l mg oral 02:36: Daily, # Gal[place] n tablet 00 10 tab, 0 Refill(s) ramipril 5 No 5 mg = 1 Mem oria mg oral 04-22 cap, PO, l capsule 02:36: PRN, # 30 Mela nn 00 cap, 1 Refill(s) Docusate No Notes: Memoria 04-22 (Same as: l 02:32: Colace) [place] 00 (Do Not Crush) Acetaminoph No Notes: Do M emoria en 04-22 not exceed l 02:32: 4 gm/day. Conrad 00 (Same as: Tylenol) Docusate No Notes: Memoria 04-22 (Same as: l 02:32: Colace) (Do Not Crush) Acetaminoph No Notes: Do M emoria en 04-22 not exceed l 02:32: 4 gm/day. (Same as: Tylenol) Vitamin D3 Yes 0 Memoria 29 Refill(s) l 01:37: [place] Levothyroxi Yes 75 Memori a ne Sodium [...] Mela nn [Keflex] 00 cap, 0 Refill(s) cephALEXin Yes Univers (KEFLEX) 1-19 ity of 500 mg 00:00: [place] capsule 00 Medical Branch oxybutynin Yes Univers XL -19 ity of (DITROPAN-X 00:00: [place] L) 5 [...] mg 24 00 Medical hr tablet Branch SYNTHROID Yes [id number] Univ ers 75 mcg 9-23 ity of tablet 00:00: [place] 00 Medical Branch SYNTHROID Yes [id number] Univ ers 75 mcg 9-23 ity of tablet 00:00: [place] 00 Medical Branch SYNTHROID Yes [id number] Univ ers 75 mcg 9-23 ity of tablet 00:00: [place] 00 [facility] Branch Immunizations Ordered Filled Immunization Date Status Comments [facility] e Immunization Name Name BEKARENMAB 2022-03-14 Completed University o f 00:00:00 [facility] [place] BEBTELOVIMAB 2022-03-14 Completed University o f 00:00:00 [facility] [place] BEBTELOVIMAB 2022-03-14 Completed University o f 00:00:00 [facility] [place] SARS-COV-2 COVID-19 2020-11-06 Completed Unive rsity of PFIZER VACCINE 00:00:00 [facility] [place] [facility] SARS-COV-2 COVID-19 2020-11-06 Completed Unive rsity of PFIZER VACCINE 00:00:00 [facility] [place] [facility] SARS-COV-2 COVID-19 2020-11-06 Completed Unive rsity of PFIZER VACCINE 00:00:00 [facility] [place] [facility] SARS-COV-2 COVID-19 2020-10-16 Completed Unive rsity of PFIZER VACCINE 00:00:00 [facility] [place] [facility] SARS-COV-2 COVID-19 2020-10-16 Completed Unive rsity of PFIZER VACCINE 00:00:00 [facility] [place] [facility] SARS-COV-2 COVID-19 2020-10-16 Completed Unive rsity of PFIZER VACCINE 00:00:00 [facility] [place] [facility] Influenza High Dose 2019-06-03 Completed Unive rsity of 00:00:00 [place] [facility] Influenza High Dose 2019-06-03 Completed Unive rsity of 00:00:00 [facility] [place] Influenza High Dose 2019-06-03 Completed Unive rsity of 00:00:00 [facility] Branch Pneumococcal 13 2018-06-19 Completed Universit y of Conjugate, PCV13 00:00:00 [place] [facility] (Prevnar 13) Branch Pneumococcal 13 2018-06-19 Completed Universit y of Conjugate, PCV13 00:00:00 [place] [facility] (Prevnar 13) Branch Pneumococcal 13 2018-06-19 Completed Universit y of Conjugate, PCV13 00:00:00 [place] [facility] (Prevnar 13) Branch Influenza High Dose 2016-09-03 Completed Unive rsity of 00:00:00 [facility] [place] Influenza High Dose 2016-09-03 Completed Unive rsity of 00:00:00 [facility] [place] Influenza High Dose 2016-09-03 Completed Unive rsity of 00:00:00 [facility] [place] Vital Signs Vital Name Observation Time Observation Value Comments Source Systolic blood 2022-05-23 18:08:00 164 mm[Hg] [facility]iver [facility] Diastolic blood 2022-05-23 18:08:00 52 mm[Hg] [facility]ive rs[facility] of [facility] Heart rate 2022-05-23 18:08:00 54 /min [facility] Body temperature 2022-05-23 18:08:00 36.89 [facility] Body weight 2022-05-23 18:08:00 47.628 kg [facility] BMI 2022-05-23 18:08:00 18.60 kg/m2 [facility] Oxygen saturation in 2022-05-23 18:08:00 94 /min [facility] Arterial blood by [facility] Pulse oximetry Branch Systolic blood 2022-04-05 16:45:00 178 mm[Hg] Univer sity of [facility] Diastolic blood 2022-04-05 16:45:00 61 mm[Hg] Unive rsity of [facility] Body height 2022-04-05 16:43:[address] [facility] Body weight 2022-04-05 16:43:00 48.988 kg [facility] BMI 2022-04-05 16:43:00 19.13 kg/m2 [facility] Branch Height 2020-08-23 14:57:00 160.02 cm [facility] [place] Weight 2020-08-23 14:57:00 [facility] [place] BMI Calculated 2020-08-23 14:57:00 Memori al [place] Systolic (mm Hg) 2020-06-14 15:46:00 Arturo rial [place] Diastolic (mm Hg) 2020-06-14 15:46:00 Mem orial [place] Heart Rate 2020-06-14 15:46:00 [facility] [place] Height 2020-06-14 15:46:00 160.02 cm [facility] [place] Weight 2020-06-14 15:46:00 [facility] [place] BMI Calculated 2020-06-14 15:46:00 Memori al [place] Systolic (mm Hg) 2019-06-02 17:15:00 Arturo rial [place] Diastolic (mm Hg) 2019-06-02 17:15:00 Mem orial [place] Systolic (mm Hg) 2019-06-02 16:40:00 Arturo rial [place] Diastolic (mm Hg) 2019-06-02 16:40:00 Mem orial [place] Systolic (mm Hg) 2019-06-02 16:10:00 Arturo rial [place] Diastolic (mm Hg) 2019-06-02 16:10:00 Mem orial [place] Temperature Oral (F) 2019-06-02 11:36:00 98.4 F [facility] [place] Height 2019-06-02 10:43:00 157.48 cm [facility] [place] Weight 2019-06-02 10:43:00 [facility] [place] BMI Calculated 2019-06-02 10:43:00 Memori al [place] Systolic (mm Hg) 2019-05-05 19:46:00 Arturo rial [place] Diastolic (mm Hg) 2019-05-05 19:46:00 Mem orial [place] Heart Rate 2019-05-05 19:46:00 [facility] [place] Respitory Rate 2019-05-05 19:46:00 Memori al [place] Height 2019-05-05 19:46:00 152.4 cm [facility] [place] Weight 2019-05-05 19:46:00 [facility] [place] BMI Calculated 2019-05-05 19:46:00 Memori al [place] Systolic (mm Hg) 2016-10-29 13:36:00 Arturo rial [place] Diastolic (mm Hg) 2016-10-29 13:36:00 Mem orial [place] Systolic (mm Hg) 2016-10-29 10:30:00 Arturo rial [place] Diastolic (mm Hg) 2016-10-29 10:30:00 Mem orial [place] Systolic (mm Hg) 2016-10-29 08:30:00 Arturo rial [place] Diastolic (mm Hg) 2016-10-29 08:30:00 Mem orial [place] Temperature Oral (F) 2016-10-29 05:00:00 96.6 F [facility] [place] Temperature Oral (F) 2016-10-28 18:45:00 97.0 F [facility] [place] Respitory Rate 2016-10-28 18:45:00 Memori al Conrad BMI Calculated 2016-10-28 18:23:00 Memori al [place] Weight 2016-10-28 18:23:00 [facility] [place] Height 2016-10-28 18:23:00 160.02 cm [facility] [place] Systolic (mm Hg) 2016-04-26 20:27:00 Arturo rial [place] Diastolic (mm Hg) 2016-04-26 20:27:00 Mem orial Conrad Heart Rate 2016-04-26 20:27:00 [facility] [place] Temperature Oral (F) 2016-04-26 20:27:00 98.4 F [facility] [place] Respitory Rate 2016-04-26 20:27:00 Memori al [place] Systolic (mm Hg) 2016-04-26 16:51:00 Arturo rial [place] Diastolic (mm Hg) 2016-04-26 16:51:00 Mem orial Conrad Respitory Rate 2016-04-26 16:51:00 Memori al [place] Temperature Oral (F) 2016-04-26 16:51:00 98.4 F [facility] [place] Heart Rate 2016-04-26 16:51:00 [facility] [place] Diastolic (mm Hg) 2016-04-26 13:02:00 Mem orial [place] Systolic (mm Hg) 2016-04-26 13:02:00 Arturo rial Conrad Heart Rate 2016-04-26 13:02:00 [facility] [place] Respitory Rate 2016-04-26 13:00:00 Memori al Conrad Temperature Oral (F) 2016-04-26 13:00:00 98.1 F [facility] BMI Calculated 2016-04-22 01:09:00 Shonda Winter Weight 2016-04-22 01:09:00 [facility] Height 2016-04-22 01:09:00 160.02 cm [facility] Procedures Procedure Date / Time Performing Clinician Source Performed ASSIGNMENT OF BENEFITS 2022-05-23 17:57:13 [facility] [place] [facility] [id number] 2021-09-18 00:00:[address] [facility] [id number] 2021-09-18 00:00:[address] [facility] [id number] 2021-09-18 00:00:[address] [facility] [id number] 2021-09-18 00:00:[address] [facility] [id number] 2021-09-18 00:00:[address] [facility] GASTROINTESTINAL PANEL 2021-08-16 20:00:00 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 Martines prosthesis<sup>1</sup> Placement of stent in [facility] cardiac conduit Plan of Care Planned Activity Planned Date Details Comments Source Future Scheduled 2022-06-28 SHINGLES VACCINES (1 Met [facility] Test 18:57:48 of 2) [code = SHINGLES VACCINES (1 of 2)] Future Scheduled 2022-06-28 65+ [facility] VACCINE (2 - PPSV23 if available, else PCV20) [code = 65+ PNEUMOCOCCAL VACCINE (2 - PPSV23 if available, else PCV20)] Future Scheduled 2022-06-28 COVID-19 VACCINE (4 - Me [facility] Test 18:57:48 Booster for Pfizer series) [code = COVID-19 VACCINE (4 - Booster for Pfizer series)] Future Scheduled 2022-06-28 INFLUENZA VACCINE Method [facility] Test 18:57:48 [code = INFLUENZA VACCINE] Future Scheduled 2022-06-28 HEPATITIS B VACCINES Met [facility] Test 18:57:48 (1 of 3 - 3-dose series) [code = HEPATITIS B VACCINES (1 of 3 - 3-dose series)] Future Scheduled 2022-04-12 HEPATITIS B VACCINES Met [facility] Test 01:52:51 (1 of 3 - 3-dose series) [code = HEPATITIS B VACCINES (1 of 3 - 3-dose series)] Future Scheduled 2022-04-12 SHINGLES VACCINES (1 Met [facility] Test 01:52:51 of 2) [code = SHINGLES VACCINES (1 of 2)] Future Scheduled 2022-04-12 65+ [facility]OCOCCAL [facility] Test 01:52:51 VACCINE (2 - PPSV23 or PCV20) [code = 65+ PNEUMOCOCCAL VACCINE (2 - PPSV23 or PCV20)] Future Scheduled 2022-04-12 COVID-19 VACCINE (4 - [facility] Test 01:52:51 Booster for Pfizer series) [code = COVID-19 VACCINE (4 - Booster for Pfizer series)] Future Scheduled 2022-04-12 INFLUENZA VACCINE Method [facility] Hospital Test 01:52:51 [code = INFLUENZA VACCINE] Encounters Start End Encounter Admission Attending Care Care Encounter Source Date/Time Date/Time Type Type Clinicians Facility Department ID 2022-05-03 [id number] 10:30:[address] 2021-06-24 Outpatient Jeovany [facility] [id number] Univers 10:58:25 [facility] 2021-06-23 Outpatient Jeovany [facility] [id number] Univers 23:07:21 [facility] 2023-04-04 2023-04-04 Outpatient Jeovany [facility] [id number] Univers 11:30:00 11:30:00 YUSUF [facility] 2023-04-04 2023-04-04 Outpatient Jeovany [facility] [id number] Univers 11:30:00 11:30:00 YUSUF [facility] 2022-10-31 2022-10-31 Outpatient Jeovany [facility] [id number] Univers 11:00:00 11:00:00 [facility] 2022-05-23 2022-05-23 Nurse 1, Adc Infusion Nurse [facility] [id number]. [id number] Univers 13:00:00 13:15:00 Visit Yusuf Gibbons [id number] ity [facility] [id number] [id number] [facility] [address] [place] 2022-05-23 2022-05-23 [facility] [id number] Univers 13:00:00 13:00:00 YUSUF irene [facility] 2022-05-23 2022-05-23 Orders Doctor DEIRDRE [id number] Univers 00:00:00 00:00:00 Only Unassigned, VELVET [id number] [facility]y [facility] [id number] Laurent as [id number] [address] 2022-04-30 2022-04-30 [facility] [id number] Univers 13:00:00 13:00:00 YUSUF [facility] 2022-04-11 2022-04-11 [facility] [id number] Univers 11:00:00 11:00:00 YUSUF irene [facility] 2022-04-05 2022-04-05 [facility] [id number] Univers 11:30:00 12:40:58 [facility]05 2022-04-05 [facility] [id number] Univers 11:30:00 12:40:58 Visit Yusuf Harrison [facility] 350.1.13.10 it y of [facility] 4.2.7.2.686 Laurent as BERLIN?BLEA [phone] [address] MEDICAL OFFICE BUILDING 2022-03-29 2022-03-29 Orders Doctor DEIRDRE 1.2.840.114 [id number] Univers 00:00:00 00:00:00 Only Unassigned, VELVET 350.1.13.10 ity of [facility] 4.2.7.2.686 Laurent as [phone] [address] 2022-03-14 2022-03-14 Nurse Therapy, Adc Covid Infusion [facility] 1.2.840.114 [id number] Univers 16:00:00 17:00:00 Visit Ivan Fuentes 350.1.13.10 ity [facility] 4.2.7.2.686 [place] [phone] [address] 2022-03-14 2022-03-14 Outpatient R [facility] [id number] Univers 16:00:00 16:00:00 IVAN vines [facility] 2022-03-14 2022-03-14 Orders Doctor DEIRDRE 1.2.840.114 [id number] Univers 00:00:00 00:00:00 Only Unassigned, VELVET 350.1.13.10 [facility] 4.2.7.2.686 Laurent as [phone] [address] 2022-03-13 2022-03-13 Outpatient [facility] [id number] Univers 17:00:00 17:53:42 REENA swift [facility] 2022-03-13 2022-03-13 Urgent Deirdre Bowie [facility] 1.2.840.114 [id number] Univers 17:00:00 17:20:00 Reena Amanda [facility] 350.1.13.10 ity of [facility] 4.2.7.2.686 Laurent as BER[place]?BLEA [phone] [address] MEDICAL OFFICE BUILDING 2022-03-13 2022-03-13 Outpatient Jeovany BEVERLY [facility] [id number] Univers 17:00:00 17:00:00 REENA murray [facility] 2022-02-27 2022-02-27 Outpatient [facility] [id number] Univers 14:16:04 23:59:00 YUSUF vines [facility] 2022-02-27 2022-02-27 [facility] 1.2.840.114 [id number] Univers 14:15:00 23:59:00 Encounter Yusuf MACIEL 350.1.13.10 ity [facility] [place]7.2.[place] [phone] [facility] [address] 2021-10-25 2021-10-25 Nurse 1, Adc Infusion Nurse [facility] 1.2. 840.114 [id number] Univers 09:00:00 09:15:00 Visit Yusuf Gibbons 350.1.13.10 ity [facility] [place]2.7.2.[place] [phone] [facility] [address] 2021-10-25 2021-10-25 Outpatient R CHARLEEN [facility] [id number] Univers 09:00:00 09:00:00 YUSUF vines [facility] 2021-10-25 2021-10-25 Orders Doctor GILMORE 1.2.840.[id number] [facility] 00:00:00 00:00:00 Only Unassigned, VELVET 350.1.13.10 [place] [facility] 4.2.7.2.686 Laurent as [phone] [facility] [address] 2021-10-11 2021-10-11 Outpatient Jeovany GIBBONS [facility] [id number] Univers 09:30:00 09:30:00 YUSUF vines [facility] 2021-09-18 2021-09-21 Inpatient Iván Root [facility].01 GS911 [id number] [facility] 00:40:00 18:15:00 20 [facility] 2021-09-18 2021-09-18 Outpatient Iván Cowan [facility] RE[facility] BN02 [id number] [facility] 18:46:00 18:46:00 80 [facility] 2021-09-14 2021-09-14 Outpatient Iván Root [facility] 3DAY BP00 [id number] [facility] 00:00:00 23:59:00 20 [facility] 2021-09-14 2021-09-14 Outpatient UNKNOWN HCACL LABO [id number] [facility] 17:46:00 17:46:00 15 [facility] 2021-08-16 2021-08-16 Lab Neida Blank 1. 2.840.1 [id number] Methodi 14:00:00 14:05:00 Iván Cowan [address]66.1.[address] 3.430.2.7 Hospit a .3.833000 l .8 2021-08-16 2021-08-16 Lab Neida Blank 1. 2.840.1 [id number] Methodi 14:00:00 14:05:00 Iván Cowan 68141.1.[address] 3.430.2.7 Hospit a .3.724341 l .8 2021-08-15 2021-08-15 Orders Edward 1.2.840.1 [id number] Methodi 00:00:00 00:00:00 Only jeff, 46635.1.[address] [place] 3.430.2.7 Hospi ta Amezquita .3.156316 l .8 2021-08-15 2021-08-15 Orders Edward 1.2.840.1 [id number] Methodi 00:00:00 00:00:00 Only jeff, 49005.1.[address] [place] 3.430.2.7 Hospi ta Amezquita .3.174241 l .8 2021-04-12 2021-04-12 Outpatient R CHARLEEN [facility] [id number] [facility] 09:30:00 09:30:00 YUSUF vines [facility] 2021-04-12 2021-04-12 Nurse 1, Adc Infusion Nurse [facility] 1.2. 840.114 [id number] Univers 09:09:47 09:24:47 Visit Yusuf Gibbons 350.1.13.10 [place]7.2.686 [place] [phone] [place] [address] Branch 2021-04-06 2021-04-06 Outpatient R CHARLEEN [facility] [id number] Univers 10:00:00 10:00:00 YUSUF vines [facility] 2021-03-30 2021-03-30 Office Yusuf Gibbons [facility] 1.2.840. 114 [id number] Univers 11:03:18 12:12:59 Visit Meaghan Castrejon 350.1.13.10 ity of [place].2.7.2.[place] Profess[place] [phone] [facility] 220 [facility] 2021-03-30 2021-03-30 Out[facility] [id number] Univers 11:00:00 11:00:00 MEAGHAN ity [facility] 2021-01-02 2021-01-02 Orders Doctor DEIRDRE 1.2.840.114 [id number] Univers 00:00:00 00:00:00 Only Unassigned, VELVET 350.1.13.10 [place] [facility] 4.2.7.2.686 Laurent as [id number] [address] 2020-12-19 2020-12-19 Tele[facility] 1.2.840.114 [id number] Univers 00:00:00 00:00:00 Yusuf Maciel 350.1.13.10 i ty of [place].7.2.[place] [phone] [facility] 220 [facility] 2020-12-08 2020-12-08 Orders Doctor DEIRDRE 1.2.840.114 [id number] Univers 00:00:00 00:00:00 Only Unassigned, VELVET 350.1.13.10 [place] [facility] 4.2.7.2.686 Laurent as [phone] [address] 2020-12-07 2020-12-07 Surgery [facility] 1.2.744.257 [id number] Univers 09:00:00 11:18:00 Riki Maciel 350.1.13.10 i ty of [place]2.7.2.[place] [phone] [facility] [address] [place] 2020-12-07 2020-12-07 [facility] 1.2.840.114 [id number] Univers 07:58:00 10:51:00 Encounter Riki Maciel 350.1.13.10 ity of [place] 4.2.7.2.686 [place] [phone] [facility] [address] 2020-12-07 2020-12-07 Orders Doctor DEIRDRE 1.2.840.114 [id number] Univers 00:00:00 00:00:00 Only Unassigned, VELVET 350.1.13.10 [place] [facility] 4.2.7.2.686 Laurent as [phone] [facility] [address] 2020-12-06 2020-12-06 Laboratory Only, Adc Test [facility] 1.2.840. 114 [id number] Univers 08:50:27 09:05:27 Only Riki Reyez 350.1.13.10 ity of [place].2.7.2.686 [place] [phone] [facility] [address] [place] 2020-12-06 2020-12-06 [employer] Alfredo, Adc Lab Main [facility] 1.2.8 40.114 [id number] Univers 08:49:30 09:04:30 Visit Riki Reyez 350.1.13.10 ity of [place].7.2.[place] [phone] [place] [facility] [address] [facility] 2020-12-06 2020-12-06 Hospital Dereje [facility] 1.2.840.114 [id number] Univers 08:45:00 08:46:00 Encounter Riki Maciel 350.1.13.10 ity of [place] 4.2.7.2.686 [place] [id number] [facility] [address] 2020-12-06 2020-12-06 Outpatient Jeovany REYEZ [facility] [id number] Univers 08:15:00 08:15:00 RIKI itirene of [facility] 2020-12-06 2020-12-06 Orders Doctor GILMORE 1.2.840.114 [id number] Univers 00:00:00 00:00:00 Only Unassigned, VELVET 350.1.13.10 [place] [facility] 4.2.7.2.686 Lauretn as [phone] [facility] [address] [place] 2020-11-06 2020-11-06 Outpatient Jeovany HOLMAN [facility] [id number] Univers 15:30:00 15:30:00 AIYANA [facility] 2020-10-16 2020-10-16 Outpatient R RIVER [facility] [id number] Univers 16:10:00 16:10:00 AIYANA [facility] 2020-10-06 2020-10-06 [facility] 1.2.840.114 [id number] Univers 08:54:38 23:59:00 Encounter Riki Maciel 350.1.13.10 [facility] 4.2.7.2.686 [facility] [id number] [facility] [address] [place] 2020-10-06 2020-10-06 Outpatient R DEREJE [facility] [id number] Univers 08:45:00 08:45:00 RIKI [facility] 2020-10-06 2020-10-06 Laboratory Only, Adc Test [facility] 1.2.840. 114 [id number] Univers 08:28:29 08:43:29 Only Riki Reyez 350.1.13.10 [facility] 4.2.7.2.686 [facility] [id number] [facility] [address] 2020-09-17 2020-09-17 Patient Sixto [facility] 1.2.840.114 [id number] Univers 00:00:00 00:00:00 Outreach Nathanael PRIMARY 350.1.13.[address] [facility] 4.2.7.2.686 [place] [facility] [phone] [place] [address] 2020-08-30 2020-08-30 Ambulatory nullFlavo [facility] Multi 35 [id number] Memoria 15:00:00 15:00:00 Pre-Reg r Specialty 04 l [facility] 2020-08-30 2020-08-30 Ambulatory nullFlavo [facility] Multi 35 [id number] Memoria 15:00:00 15:00:00 Pre-Reg r Specialty 04 l [facility] 2020-08-30 2020-08-30 Outpatient Fitz [facility] [id number] 09:00:00 09:00:00 Mandie L 04 2020-08-23 2020-08-24 Outpatient nullFlavo [facility] Multi 35 [id number] Memoria 15:00:00 05:59:59 r Specialty 05 l [facility] 2020-08-23 2020-08-24 Outpatient nullFlavo [facility] Multi 35 [id number] Memoria 15:00:00 05:59:59 r Specialty 05 l [facility] 2020-08-23 2020-08-23 Outpatient Staller, [facility] MG [id number] 09:00:00 23:59:59 Mandie L 05 2020-08-23 2020-08-23 Outpatient MHIE MHIE [id number] Memoria 09:00:00 09:00:00 05 l [place] 2020-07-26 2020-07-26 Outpatient MHIE MHIE [id number] Memoria 11:00:00 11:00:00 04 l [place] 2020-06-14 2020-06-15 Outpatient nullFlavo [facility] Multi 35 [id number] Memoria 16:00:00 04:59:59 r Specialty 03 l [facility] 2020-06-14 2020-06-15 Outpatient nullFlavo [facility] Multi 35 [id number] Memoria 16:00:00 04:59:59 r Specialty 03 l Clinic [facility] 2020-06-14 2020-06-14 Outpatient Marcoser, MG [facility] [id number] 11:00:00 23:59:59 Mandie L 03 2020-06-14 2020-06-14 Outpatient MHIE MHIE [id number] Memoria 11:00:00 11:00:00 03 [facility] 2020-04-11 2020-04-[address] [facility] 1.2.840 .114 [id number] 09:20:00 23:59:00 Encounter Radiology [place] 350.1.13.10 [place] [address] [place] [address] [id number] [facility] 2020-04-11 2020-04-[address] LouisYusuf [facility] 1.2.[id number] [facility] 09:20:00 23:59:00 Encounter Radiology [place] 350.1.13.10 ity of [place] 4.2.7.2.686 [facility] [phone] [address] 2020-04-11 2020-04-11 [facility] 1.2.840.114 [id number] 09:00:00 09:19:00 Encounter Yusuf Maciel 350.1.13.10 [place] 4.2.7.2.686 [place] [id number] 800 2020-04-11 2020-04-11 [facility] 1.2.840.114 [id number] Univers 09:00:00 09:19:00 Encounter Yusuf Maciel 350.1.13.10 ity of [place].7.2.686 [place] [id number] [facility] [address] [place] 2020-04-11 2020-04-11 Outpatient R [facility] [id number] Univers 00:00:00 00:00:00 YUSUF vines [facility] 2020-04-11 2020-04-11 Orders Doctor DEIRDRE 1.2.840.114 [id number] 00:00:00 00:00:00 Only Unassigned, VELVET 350.1.13.10 [place] [facility] 4.2.7.2.686 [id number] 009 2020-04-11 2020-04-11 Orders Doctor DEIRDRE 1.2.840.[id number] [facility] 00:00:00 00:00:00 Only Unassigned, VELVET 350.1.13.10 ity [place] [facility] 4.2.7.2.686 Laurent as [phone] [facility] [address] [place] 2020-03-31 2020-03-31 Office [facility] 1.2.913.413 [id number] 11:28:01 12:47:12 Visit Yusuf Maciel 350.1.13.10 [place] 4.2.7.2.686 Professio [phone] [address] 2020-03-31 2020-03-31 Office [facility] 1.2.823.[id number] [facility] 11:28:01 12:47:12 Visit Yusuf Maciel 350.1.13.10 i ty of [place].2.[place] [phone] Me dical [facility] 220 [facility] 2020-03-31 2020-03-31 [facility] [id number] Univers 11:30:00 11:30:00 YUSUF vines [facility] 2019-10-15 2019-10-15 Office Charleen [facility] 1.2.739.577 [id number] Univers 11:31:15 12:29:05 Visit Yusuf Maciel 350.1.13.10 i [facility] 4.2.7.2.686 [facility] Cleburnedanny bravo [facility] [phone] [place] [facility] 220 [facility] 2019-10-15 2019-10-15 Outpatient [facility] [id number] Univers 11:30:00 12:29:05 YUSUF vines [facility] 2019-06-02 2019-06-02 Bedded nullFlavo [facility] [id number] Memoria 10:35:00 18:05:00 Outpatient r [address] 2019-06-02 2019-06-02 Bedded nullFlavo [facility] [id number] Memoria 10:35:00 18:05:00 Outpatient r [address] 2019-06-02 2019-06-02 Outpatient [place], [facility] [id number] 05:35:00 13:05:00 Pilo Jin 2019-06-02 2019-06-02 Outpatient [facility] CAR 7504 [facility] 05:35:00 05:35:00 2019-05-19 2019-05-20 Outpt Diag nullFlavo [facility] [id number] Memoria 18:18:00 04:59:00 Services r Outpatient 05 l Imaging - [place] 2019-05-19 2019-05-20 Outpt Diag nullFlavo [facility] [id number] Memoria 18:18:00 04:59:00 Services r Outpatient 05 l Imaging - [place] 2019-05-19 2019-05-19 Outpatient Jc, 2.16.840. 2.16.840.1. [id number] 13:18:00 23:59:00 Pilo Thayer 1.472442. 661705.3.61 05 3.615.101 5.101 2019-05-05 2019-05-06 Outpatient nullFlavo [facility] 338 [id number] [facility]oria 19:40:00 04:59:00 r Disease 03 l [facility] 2019-05-05 2019-05-06 Outpatient nullFlavo [facility] [id number] Memoria 19:40:00 04:59:00 r Disease 03 l [facility] 2019-05-05 2019-05-05 Outpatient Glory [facility] [id number] 14:40:00 23:59:00 Atilla 03 2019-05-05 2019-05-05 Outpatient [facility] [id number] [facility] 14:40:00 14:40:00 2019-04-14 2019-04-14 [facility] 1.2.840.114 [id number] Univers 11:00:22 23:59:00 Encounter Yusfu Maciel 350.1.13.10 ity of [place] 4.[place].2.[place] [phone] [facility] [address] [place] 2019-04-09 2019-04-09 Office [facility] 1.2.198.515 [id number] Univers 08:26:57 10:14:43 Visit Yusuf Maciel 350.1.13.10 i ty [facility] 4.2.7.2.686 [place] [facility] [phone] [place] dical nal [address] [facility] 2019-04-09 2019-04-09 Orders Doctor DEIRDRE 1.2.840.114 [id number] Univers 00:00:00 00:00:00 Only Unassigned, VELVET 350.1.13.10 ity [place] [facility] 4.2.7.2.686 Laurent as [phone] [facility] [address] 2016-10-28 2016-10-29 Bedded [facility] [id number] Memoria 18:02:00 15:07:00 Outpatient r Conrad 02 [facility] 2016-10-28 2016-10-29 Bedded [facility] [id number] Memoria 18:02:00 15:07:00 Outpatient r Conrad 02 [facility] 2016-10-28 2016-10-29 Outpatient Jc [facility] [id number] 12:02:00 09:07:00 Pilo R 2016-04-22 2016-04-27 Inpatient nullFlavo [facility] [id number] Memoria 00:43:00 01:07:00 r [place] 41 [facility] 2016-04-22 2016-04-27 Inpatient nullFlavo [facility] [id number] Memoria 00:43:00 01:07:00 r [place] 41 [facility] 2016-04-21 2016-04-26 Outpatient Jc, [facility] [id number] 19:43:00 20:07:00 Pilo R 41 2015-03-02 2015-03-03 Outpt Diag nullFlavo [facility] [id number] Memoria 17:37:00 04:59:00 Services r Outpatient 00 l Imaging [facility] 2015-03-02 2015-03-03 Outpt Diag nullFlavo [facility] [id number] Memoria 17:37:00 04:59:00 Services r Outpatient 00 l [facility] 2015-03-02 2015-03-02 Outpatient Cayden Fong 2.16.840. 2.16.840.1. [id number] 12:37:00 23:59:00 [id number]. [id number] 00 3.615.0.1 5.0.765 23 1121-07-09 2015-03-02 Outpatient MHIE IE [id number] Memoria 13:30:00 13:30:00 00 [facility] 2015-03-02 2015-03-02 Outpatient IE IE [id number] Memoria 13:30:00 13:30:00 00 [facility] 2014-03-03 2014-03-04 Outpt Diag nullFlavo [facility] [id number] Memoria 16:41:00 04:59:00 Services r Outpatient 03 l Imaging [facility] 2014-03-03 2014-03-04 Outpt Diag nullFlavo [facility] [id number] Memoria 16:41:00 04:59:00 Services r Outpatient 03 l Imaging [facility] 2014-03-03 2014-03-03 Outpatient Cayden Fong 2.16.840. 2.16.840.1. [id number] 11:41:00 23:59:00 [id number]. 143828.3.61 03 3.615.0.1 5.0.101 01 Results Test Description Test Time Test Comments Results Result Comments Source SURGICAL 2021-09-21 11:13:00 Test Item Value Reference Range Interpretation Commvicky dennis SURGICAL RUN (test DATE: 09/21/21 [facility] - LAB PAGE 1 RUN TIME: 1113 Specimen Inquiry RUN USER: INTERFACE code = PATIENT SR) : ISAACJASON BLANCOXON LOC: Yogesh Gerber U #: [id number] AGE/SX: 86/F ROOM: [facility] RE09/18/[facility]: Iván Cowan MD : 35 BED: 1 DIS: STATUS: ADM IN TLOC: SPEC #: [id number] RECD: STATUS: SOUT REQ #: [id number] BALDO: 09/18/21-[address] [facility] [address]: Iván Cowan MD ENTERED: 08/26 SP TYPE: SURGICAL OTHR DR: Sam Omer MD ORDERED: 25946, 56294/2, ANATOMIC SPE C HISTOLOGY: TISSUE ID BLK PCS MARIBEL LEV / PROCEDURE DISPOSITION ____ ___ ___ ___ ___ SMINNT A 2 1 COLSR B 14 1 SOFTISDEB C 1 1 TISSUES: A. 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 COLON SEGMENTAL RESECTION NO T TUMOR - Rectosigmoid Colon C. SOFT TISSUE NOT TUMOR / MASS / LIPOMA / DEBRIDEMENT - Foreign Body o n the Rectum FINAL DIAGNOSIS A. 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 B. COLON, RECTOSIGMOID, EXCISION:- Diverticulosis with mural fibrosis and luminal narrowing, consistent with s tricture. - Serosal adhesions. - 6 benign lymph nodes. - Resection margins are unremarkable. C. SOFT TISSUE, "FOREIGN BODY ON RECTUM," EXCISION:- Fibroadipose tissue with fibrosis and suture mat erial with a foreign body giant cell reaction. GROSS DESCRIPTION A. Received in formalin, labele d with patient's name, medical record number and "smallbowel duplication cyst". It consis ts of a cystic/dilated portion of small bowel thatmeasures 4.1 x 4.0 x 2.3 cm and has a 3.5 cm stap le line. The serosal surface is smoothglistening zimmerman. The specimen is opened to reveal green-yello w fecal material. Doughnut Glazier sections are submitted in cassettes A1 and A2 as follows: A1 - lou in; A2 -dealer compliance representative sections of dilated bowel- full thickness. The specimen also demonstratesth inning of the small bowel wall to a thickness of 0.1 cm. In these areas the mucosalfolds are slightl y flattened. No masses, lesions are identified. B. Received in formalin, labeled with patie nt's name, medical record number and"rectosigmoid colon". It consists of a 20.4 cm length of rectu m-colon and attached softtissue. The rectal portion measures approximately 5.0 cm in katarzyna th. The specimen has an CONTINUED ON NEXT PAGE RUN DATE: 09/21/21 [facility] - LAB PAGE 2 RUN TIME: 1113 Specimen Inquiry RUN USER: INTERFACE SPEC #: [id number] PATIENT: JASON GOYAL #[id number] (Continued) ---- GROSS DESCRIPTION (Cont inued) average circumference ranging from 5.5 to 3.0 cm. The serosal surface of the specimen issm ooth glistening with 2 areas of white fibrosis. An area of serosal disruption and 2 areasof ser osal fibrosis are inked blue, with the most proximal serosal fibrosis present 3.1 cmfrom the proxi mal margin. The most distal is 4.9 cm from the distal margin. The specimenis opened to reveal normal rugal folds and multiple diverticula and an area of luminalnarrowing at the prox imal most blue ink. This area also corresponds to, a focal area ofmucosal fibrosis is presen t 3.1 cm from the margin and measures 0.2 x 0.2 x 0.1 cm. Noother definitive mucosal lesions a re identified. Two unremarkable colorectal donuts arealso received. Doughnut Glazier sections are submitted as follows: B1 - proximal margin; B2- distal margin; B3 - dealer compliance representative section of me senteric margin and radial margin; B4 to B6- proximal serosal scar with diverticula; B7 - representa tive sections at middle area ofserosal fibrosis; B8 - dealer compliance representative sections at distal mural dis ruption; B9 and B10 -candidate lymph nodes; B11 - dealer compliance representative section from non-designated donuts; B12 to B14- additional soft tissue with possible lymph nodes. C. Received in formalin, lab eled with patient's name, medical record number and "foreignbody rectum". It consists of a 3. 0 x 1.5 x 0.9 cm portion of fibroadipose with embeddedstitches. Doughnut Glazier sections are submitted in cassette C. JE/ks Technical [facility], [address] MICROSCOPIC DESCRIPTION NEGATIVE FOR MALIGNANCY. PERFORMED AN D INCORPORATED INTO THE FINAL DIAGNOSIS. CLINICAL INFORMATION Diverticular stricture (per op note) Signed SIGNATURE ON FILE Steve Shell 09/21/21 1113 END OF REPORT BASIC METABOLIC [id number] 08:32:00 Test Item Value Reference Range Interpretation [...] New = CA) Reference Range Sep 2020 [id number] 08:32:00 Test Item Value Reference Range Interpretation Comments MAGNESIUM (test code = 1.3 mg/dL 1.6-2.6 L Pleas e note: New MAG) Reference Range Sep 2020 CBC W/AUTO [id number] 08:16:00 Test Item Value Reference Range Interpretation [...] 0.02 x10 3/uL 0.0-0.20 N RECOLLECTCBC W/MANUAL [id number] 05:55:00 Test Item Value Reference Range Interpretation [...] code NORMAL NORMAL = PLTMORPH) BASIC METABOLIC [id number] 05:04:00 Test Item Value Reference Range Interpretation [...] New = CA) Reference Range Sep 2020 [id number] 05:04:00 Test Item Value Reference Range Interpretation Comments MAGNESIUM (test code = 2.0 mg/dL 1.6-2.6 N Pleas e note: New MAG) Reference Range Sep 2020 CBC W/AUTO [id number] 04:41:00 Test Item Value Reference Range Interpretation [...] 0.01 x10 3/uL 0.0-0.20 N BASIC METABOLIC [id number] 04:31:00 Test Item Value Reference Range Interpretation [...] New = CA) Reference Range Sep 2020 [id number] 04:31:00 Test Item Value Reference Range Interpretation Comments MAGNESIUM (test code = 1.5 mg/dL 1.6-2.6 L Pleas e note: New MAG) Reference Range Sep 2020 Novel Coronavirus 2018 [id number] 14:55:00 Test Item Value Reference Range Interpretation Comments Novel Coronavirus Negative Negative Positive r esults are 2018 Inhouse (test indicativ e of the presence [...] det ection of nucleic acids f rom fazCYLM-MdC-0 v irus and diagnosis of SA RS-CoV-2 virusinfection. It is an Emergency Use Authorization ( EUA) testauthorized by the U.S. FDA. First test? UnknownEmployed in Healthcare? UnknownSymptomatic as defined by CDC? UnknownHospitalizeddue to COVID? UnknownIn ICU due to COVID? UnknownResident in a congregate care setting? Unknown? NoAge at collection: Jeremy Coronavirus 2018 [id number] 14:55:00 Test Item Value Reference Range Interpretation Comments Novel Coronavirus Negative Negative Positive r esults are 2018 Inhouse (test indicativ e of the presence [...] det ection of nucleic acids f rom ayxKGUU-WkF-4 v irus and diagnosis of SA RS-CoV-2 virusinfection. It is an Emergency Use Authorization ( EUA) testauthorized by the U.S. FDA. First test? UnknownEmployed in Healthcare? UnknownSymptomatic as defined by CDC? UnknownHospitalizeddue to COVID? UnknownIn ICU due to COVID? UnknownResident in a congregate care setting? Unknown? NoAge at collection: YBASIC METABOLIC [id number] 11:15:00 Test Item Value Reference Range Interpretation [...] CA) Reference Range Sep 2020 CBC W/AUTO [id number] 10:57:00 Test Item Value Reference Range Interpretation [...] BA#) 0.05 x10 3/uL 0.0-0.20 N [facility] [id number] 02:35:09 Test Item Value Reference Interpretation Comments [...] Rotavirus PCR (test Not Detected code = 4995380) Salmonella PCR (test Not Detected code = [...] PCR Not Detected (test code = 7124) [id number] 02:35:09 Test Item Value Reference Interpretation Comments [...] Rotavirus PCR (test Not Detected code = 3682807) Salmonella PCR (test Not Detected code = [...] PCR Not Detected (test code = 7124) [facility] [id number] 15:25:00 Test Item Value Reference Range Interpretation Comments Result 2 (Urine Culture) See Result Comment (test code = Result 2 (Urine Culture)) [facility] [id number] 15:25:00 Test Item Value Reference Range Interpretation Comments Result 2 (Urine Culture) See Result Comment (test code = Result 2 (Urine Culture)) [facility]XlvlsnxGPKNLITIZF8993-66-82 14:36:00 Test Item Value Reference Range Interpretation Comments POC Activated Clotting Time (test code 186 s = POC Activated Clotting Time) [facility]landOcmnclsLUMEJPPOFZ8344-08-52 14:36:00 Test Item Value Reference Range Interpretation Comments POC Activated Clotting Time (test code 186 s = POC Activated Clotting Time) [facility] [id number] 10:47:00 Test Item Value Reference Range Interpretation Comments ABO/Rh (test code = ABO/Rh) O POS [facility] [id number] 10:47:00 Test Item Value Reference Range Interpretation Comments Antibody Scrn (test Positive (06/02/19 5:47 code = Antibody Scrn) AM) [facility] [id number] 10:47:00 Test Item Value Reference Range Interpretation Comments AB Int (test code = Non-specific IgG AB Int) Antibody [facility] [id number] 10:47:00 Test Item Value Reference Range Interpretation Comments PAUL Gel Int (test Positive (06/02/19 5:47 code = PAUL Gel Int) AM) [facility] [id number] 10:47:00 Test Item Value Reference Range Interpretation Comments C3 Int (test code = Negative (06/02/19 5:47 C3 Int) AM) [facility] [id number] 10:47:00 Test Item Value Reference Range Interpretation Comments Eluate Int (test code = Eluate Int) See Note [facility]2019-10-09 10:47:00 Test Item Value Reference Range Interpretation Comments Glucose Lvl (test code = Glucose Lvl) 102 70-99 [facility] [id number] 10:47:00 Test Item Value Reference Range Interpretation Comments BUN (test code = BUN) 20 7-22 [facility] [id number] 10:47:00 Test Item Value Reference Range Interpretation Comments Creatinine Lvl (test code = Creatinine 1.00 0.50-1.40 Lvl) [facility] [id number] 10:47:00 Test Item Value Reference Range Interpretation Comments Sodium Lvl (test code = Sodium Lvl) 143 135-145 [facility] [id number] 10:47:00 Test Item Value Reference Range Interpretation Comments Potassium Lvl (test code = Potassium 3.7 3.5-5.1 Lvl) [facility] [id number] 10:47:00 Test Item Value Reference Range Interpretation Comments Chloride Lvl (test code = Chloride Lvl) 105 95-109 [facility] [id number] 10:47:00 Test Item Value Reference Range Interpretation Comments CO2 (test code = CO2) 31 24-32 [facility]2019-10-09 10:47:00 Test Item Value Reference Range Interpretation Comments Calcium Lvl (test code = Calcium Lvl) 10.0 8.5-10.5 [facility]2019-10-09 10:47:00 Test Item Value Reference Range Interpretation Comments eGFR (test code = eGFR) 52 [facility]2019-10-09 10:47:00 Test Item Value Reference Range Interpretation Comments AGAP (test code = AGAP) 10.7 10.0-20.0 [facility]2019-10-09 10:47:00 Test Item Value Reference Range Interpretation Comments Magnesium Lvl (test code = Magnesium 2.1 1.8-2.4 Lvl) [facility]2019-10-09 10:47:00 Test Item Value Reference Range Interpretation Comments Phosphorus (test code = Phosphorus) 3.4 2.5-4.5 [facility]IkklbhpKUQWJTOMLI0926-86-83 10:47:00 Test Item Value Reference Range Interpretation Comments WBC (test code = WBC) 6.2 3.7-10.4 [facility]landXmpazidDMTAYOCTGS0213-06-26 10:47:00 Test Item Value Reference Range Interpretation Comments RBC (test code = RBC) 4.17 4.20-5.40 [facility]landRhwplmqWSSRTYUWGB1653-49-56 10:47:00 Test Item Value Reference Range Interpretation Comments Hgb (test code = Hgb) 12.5 12.0-16.0 [facility]landOzzgdkgTYTXPBWKPL6614-49-40 10:47:00 Test Item Value Reference Range Interpretation Comments Hct (test code = Hct) 37.7 36.0-48.0 [facility]landHrlpnjyTCIHMWDHHJ4349-96-27 10:47:00 Test Item Value Reference Range Interpretation Comments MCV (test code = MCV) 90.4 80.0-98.0 [facility]landSndbiwgXEAOHJMYNW1208-15-19 10:47:00 Test Item Value Reference Range Interpretation Comments MCH (test code = MCH) 30.0 pg 27.0-31.0 [facility]landAnzfudaXUZYNBDHLV5705-95-31 10:47:00 Test Item Value Reference Range Interpretation Comments MCHC (test code = MCHC) 33.2 32.0-36.0 [facility]landIgqqlcoIXBDVFIURQ2113-12-50 10:47:00 Test Item Value Reference Range Interpretation Comments RDW (test code = RDW) 13.5 11.5-14.5 [facility]landNblcdjjHCOFGJGDIV9848-40-71 10:47:00 Test Item Value Reference Range Interpretation Comments Platelet (test code = Platelet) 288 133-450 [facility]landOfnddprEHGMAHWULB0952-91-68 10:47:00 Test Item Value Reference Range Interpretation Comments MPV (test code = MPV) 7.1 7.4-10.4 [facility]landLcaihmxSNPROFVFNN0648-90-03 10:47:00 Test Item Value Reference Range Interpretation Comments PT (test code = PT) 13.0 s 12.0-14.7 [facility]landRaxvhxlFENYJLUHWT3543-36-83 10:47:00 Test Item Value Reference Range Interpretation Comments PTT (test code = PTT) 29.2 s 22.9-35.8 [facility]landUzahjrkNAGWCHYCUI3299-20-40 10:47:00 Test Item Value Reference Range Interpretation Comments INR (test code = INR) 1.00 1 0.85-1.17 [facility]landDqqbpyjPFRLLLBWDL5459-28-04 10:47:00 Test Item Value Reference Range Interpretation Comments Segs (test code = Segs) 60.5 45.0-75.0 [facility]landUrcrgnsPLRDVHWCQP8235-76-29 10:47:00 Test Item Value Reference Range Interpretation Comments Lymphocytes (test code = Lymphocytes) 26.2 20.0-40.0 [facility]landBxitovvTNVTPXHOHN9409-21-65 10:47:00 Test Item Value Reference Range Interpretation Comments Monocytes (test code = Monocytes) 8.7 2.0-12.0 [facility]landEtyrekdZTMBSUMARC4333-52-69 10:47:00 Test Item Value Reference Range Interpretation Comments Eosinophils (test code = 4.0 See_Comment [A utomated message] The Eosinophils) system which ge nerated this result tra nsmitted reference range : <=4.0. The reference r robbie was not used to int erpret this result as normal/abnormal . [facility]landJvocbwmGZCBVDBJRU4799-39-56 10:47:00 Test Item Value Reference Range Interpretation Comments Basophils (test code = 0.6 See_Comment [Aut omated message] The Basophils) system which ge nerated this result tra nsmitted reference range : <=1.0. The reference r robbie was not used to int erpret this result as normal/abnormal . [facility]landXrdycnsIFGUQWETDG4170-32-76 10:47:00 Test Item Value Reference Range Interpretation Comments Neutrophils # (test code = Neutrophils 3.7 1.5-8.1 #) [facility]landApnwobbEMUDXEGJJI5534-25-80 10:47:00 Test Item Value Reference Range Interpretation Comments Lymphocytes # (test code = Lymphocytes 1.6 1.0-5.5 #) [facility]landNehktouZVVINWCWDO8846-21-06 10:47:00 Test Item Value Reference Range Interpretation Comments Monocytes # (test code 0.5 See_Comment [Aut omated message] The = Monocytes #) system which generated this result tra nsmitted reference range : <=0.8. The reference r robbie was not used to int erpret this result as normal/abnormal . [facility]landUtvcaumAASLFCCGXV8121-01-02 10:47:00 Test Item Value Reference Range Interpretation Comments Eosinophils # (test code 0.3 See_Comment [A utomated message] The = Eosinophils #) system whic h generated this result tra nsmitted reference range : <=0.5. The reference r robbie was not used to int erpret this result as normal/abnormal . [facility] [id number] 10:47:00 Test Item Value Reference Range Interpretation Comments ABO/Rh (test code = ABO/Rh) O POS [facility] [id number] 10:47:00 Test Item Value Reference Range Interpretation Comments Antibody Scrn (test Positive (06/02/19 5:47 code = Antibody Scrn) AM) [facility] [id number] 10:47:00 Test Item Value Reference Range Interpretation Comments AB Int (test code = Non-specific IgG AB Int) Antibody [facility] [id number] 10:47:00 Test Item Value Reference Range Interpretation Comments PAUL Gel Int (test Positive (06/02/19 5:47 code = PAUL Gel Int) AM) [facility] [id number] 10:47:00 Test Item Value Reference Range Interpretation Comments C3 Int (test code = Negative (06/02/19 5:47 C3 Int) AM) [facility] [id number] 10:47:00 Test Item Value Reference Range Interpretation Comments Eluate Int (test code = Eluate Int) See Note [facility]2019-10-09 10:47:00 Test Item Value Reference Range Interpretation Comments Glucose Lvl (test code = Glucose Lvl) 102 70-99 [facility]2019-10-09 10:47:00 Test Item Value Reference Range Interpretation Comments BUN (test code = BUN) 20 7-22 [facility]2019-10-09 10:47:00 Test Item Value Reference Range Interpretation Comments Creatinine Lvl (test code = Creatinine 1.00 0.50-1.40 Lvl) [facility]2019-10-09 10:47:00 Test Item Value Reference Range Interpretation Comments Sodium Lvl (test code = Sodium Lvl) 143 135-145 [facility]2019-10-09 10:47:00 Test Item Value Reference Range Interpretation Comments Potassium Lvl (test code = Potassium 3.7 3.5-5.1 Lvl) [facility]2019-10-09 10:47:00 Test Item Value Reference Range Interpretation Comments Chloride Lvl (test code = Chloride Lvl) 105 95-109 [facility]2019-10-09 10:47:00 Test Item Value Reference Range Interpretation Comments CO2 (test code = CO2) 31 24-32 [facility]2019-10-09 10:47:00 Test Item Value Reference Range Interpretation Comments Calcium Lvl (test code = Calcium Lvl) 10.0 8.5-10.5 [facility]2019-10-09 10:47:00 Test Item Value Reference Range Interpretation Comments eGFR (test code = eGFR) 52 [facility]2019-10-09 10:47:00 Test Item Value Reference Range Interpretation Comments AGAP (test code = AGAP) 10.7 10.0-20.0 [facility]2019-10-09 10:47:00 Test Item Value Reference Range Interpretation Comments Magnesium Lvl (test code = Magnesium 2.1 1.8-2.4 Lvl) [facility]2019-10-09 10:47:00 Test Item Value Reference Range Interpretation Comments Phosphorus (test code = Phosphorus) 3.4 2.5-4.5 [facility]landHthokdzSVVQEJJEOH2286-57-82 10:47:00 Test Item Value Reference Range Interpretation Comments WBC (test code = WBC) 6.2 3.7-10.4 [facility]landWphbbprJQLFSLQXSP3544-58-92 10:47:00 Test Item Value Reference Range Interpretation Comments RBC (test code = RBC) 4.17 4.20-5.40 [facility]landJyienbpUFTYJNUVBN0906-82-74 10:47:00 Test Item Value Reference Range Interpretation Comments Hgb (test code = Hgb) 12.5 12.0-16.0 [facility]landHujiwatSIEOUXCXBY2836-67-07 10:47:00 Test Item Value Reference Range Interpretation Comments Hct (test code = Hct) 37.7 36.0-48.0 [facility]landHgvmigiZOTSKXIYQL6438-20-73 10:47:00 Test Item Value Reference Range Interpretation Comments MCV (test code = MCV) 90.4 80.0-98.0 [facility]landJtimglqEMVDHQPXUJ3803-43-16 10:47:00 Test Item Value Reference Range Interpretation Comments MCH (test code = MCH) 30.0 pg 27.0-31.0 [facility]landGyngmyfBNKQOFPYGM7127-42-93 10:47:00 Test Item Value Reference Range Interpretation Comments MCHC (test code = MCHC) 33.2 32.0-36.0 [facility]landZowmjhoRADEDXTKJT7164-07-74 10:47:00 Test Item Value Reference Range Interpretation Comments RDW (test code = RDW) 13.5 11.5-14.5 [facility]landLfkwxpoAOZTIJJSLN0764-17-33 10:47:00 Test Item Value Reference Range Interpretation Comments Platelet (test code = Platelet) 288 972-450 [facility]landZrhvwafCCJAXANMPJ1919-67-18 10:47:00 Test Item Value Reference Range Interpretation Comments MPV (test code = MPV) 7.1 7.4-10.4 [facility]landUdxmcbiUWSJGWDMJU7794-47-43 10:47:00 Test Item Value Reference Range Interpretation Comments PT (test code = PT) 13.0 s 12.0-14.7 [facility]landGtsgctpGVRRZZVEQK8994-92-20 10:47:00 Test Item Value Reference Range Interpretation Comments PTT (test code = PTT) 29.2 s 22.9-35.8 [facility]landAjyqiwmPIBXMXZABC8703-49-07 10:47:00 Test Item Value Reference Range Interpretation Comments INR (test code = INR) 1.00 1 0.85-1.17 [facility]landXnyudfoHMLPIRRLRK1015-45-43 10:47:00 Test Item Value Reference Range Interpretation Comments Segs (test code = Segs) 60.5 45.0-75.0 [facility]landDugflqzSQRTHQSPDV2826-73-22 10:47:00 Test Item Value Reference Range Interpretation Comments Lymphocytes (test code = Lymphocytes) 26.2 20.0-40.0 [facility]landFvkyhvtSTJAQRJLMP8650-73-61 10:47:00 Test Item Value Reference Range Interpretation Comments Monocytes (test code = Monocytes) 8.7 2.0-12.0 [facility]landDmficwqKMHGKINXCH3016-87-48 10:47:00 Test Item Value Reference Range Interpretation Comments Eosinophils (test code = 4.0 See_Comment [A utomated message] The Eosinophils) system which ge nerated this result tra nsmitted reference range : <=4.0. The reference r robbie was not used to int erpret this result as normal/abnormal . [facility]landSwgbhagPQUNKDHHEV1542-04-46 10:47:00 Test Item Value Reference Range Interpretation Comments Basophils (test code = 0.6 See_Comment [Aut omated message] The Basophils) system which ge nerated this result tra nsmitted reference range : <=1.0. The reference r robbie was not used to int erpret this result as normal/abnormal . [facility]landEpxvztpCRQGFDMSEK5897-26-94 10:47:00 Test Item Value Reference Range Interpretation Comments Neutrophils # (test code = Neutrophils 3.7 1.5-8.1 #) [facility]landDnsbcpcLXJXMVJMCK5097-97-25 10:47:00 Test Item Value Reference Range Interpretation Comments Lymphocytes # (test code = Lymphocytes 1.6 1.0-5.5 #) [facility]landBgrzinjNTWKPXJYOA5796-05-53 10:47:00 Test Item Value Reference Range Interpretation Comments Monocytes # (test code 0.5 See_Comment [Aut omated message] The = Monocytes #) system which generated this result tra nsmitted reference range : <=0.8. The reference r robbie was not used to int erpret this result as normal/abnormal . [facility]landXbxnhzpVKKBJHQCYK8067-65-43 10:47:00 Test Item Value Reference Range Interpretation Comments Eosinophils # (test code 0.3 See_Comment [A utomated message] The = Eosinophils #) system whic h generated this result tra nsmitted reference range : <=0.5. The reference r robbie was not used to int erpret this result as normal/abnormal . [facility] [id number] 11:37:00 Test Item Value Reference Range Interpretation Comments eGFR (test code = eGFR) 48 [facility] [id number] 11:37:00 Test Item Value Reference Range Interpretation Comments Creatinine Lvl (test code = Creatinine 1.08 0.50-1.40 Lvl) [facility]landGrgdwnxSMVZFQWFEM6674-43-55 11:37:00 Test Item Value Reference Range Interpretation Comments Hgb (test code = Hgb) 12.6 12.0-16.0 [facility]2017-03-07 11:37:00 Test Item Value Reference Range Interpretation Comments eGFR (test code = eGFR) 48 [facility] [id number] 11:37:00 Test Item Value Reference Range Interpretation Comments Creatinine Lvl (test code = Creatinine 1.08 0.50-1.40 Lvl) [facility]landUzrsfzgFHSWMNISDD1233-26-03 11:37:00 Test Item Value Reference Range Interpretation Comments Hgb (test code = Hgb) 12.6 12.0-16.0 [facility]landUrpxbdcTPNNMPWMXX0609-71-10 00:09:00 Test Item Value Reference Range Interpretation Comments POC Activated Clotting Time (test code 198 s = POC Activated Clotting Time) [facility]landJcnjqznOIPGTNIUHA7710-77-44 00:09:00 Test Item Value Reference Range Interpretation Comments POC Activated Clotting Time (test code 198 s = POC Activated Clotting Time) [facility]landFazrgpaNWWYOTIFAF4858-30-17 22:02:00 Test Item Value Reference Range Interpretation Comments POC Activated Clotting Time (test code 268 s = POC Activated Clotting Time) [facility]landJsksonbIPLKPPXPEQ1527-23-04 22:02:00 Test Item Value Reference Range Interpretation Comments POC Activated Clotting Time (test code 268 s = POC Activated Clotting Time) [facility] DENGPAH2053-42-09 18:25:00 Test Item Value Reference Range Interpretation Comments ABO/Rh (test code = ABO/Rh) [facility] [id number] 18:25:00 Test Item Value Reference Range Interpretation Comments Antibody Scrn (test Negative (10/28/16 12:25 code = Antibody Scrn) PM) [facility]CHE[facility] [id number] 18:25:00 Test Item Value Reference Range Interpretation Comments Magnesium Lvl (test code = Magnesium 1.9 1.8-2.4 Lvl) [facility]YzksgclPCEZHMOWGCIX0550-47-24 18:25:00 Test Item Value Reference Range Interpretation Comments Potassium Lvl (test code = Potassium 4.4 3.5-5.1 Lvl) [facility] HospitalIvenrzjEJQWBYKEGUSG4404-19-65 18:25:00 Test Item Value Reference Range Interpretation Comments Calcium Lvl (test code = Calcium Lvl) 9.4 8.5-10.5 [facility] HospitalOuwfcvkCDLMCAIOZOTB6217-92-81 18:25:00 Test Item Value Reference Range Interpretation Comments CO2 (test code = CO2) 31 24-32 [facility] HospitalKdnetoxNVQBGWXJGIZC5774-23-75 18:25:00 Test Item Value Reference Range Interpretation Comments Chloride Lvl (test code = Chloride Lvl) 103 95-109 [facility] HospitalJiylgrlHGKTRBEMEGVF3341-19-83 18:25:00 Test Item Value Reference Range Interpretation Comments eGFR (test code = eGFR) 55 [facility] HospitalPasujdbZHNJCDGWTWDT5970-40-91 18:25:00 Test Item Value Reference Range Interpretation Comments Sodium Lvl (test code = Sodium Lvl) 141 135-145 [facility] HospitalGdludhkRMWSXXLTIPOG4356-76-42 18:25:00 Test Item Value Reference Range Interpretation Comments Creatinine Lvl (test code = Creatinine 0.97 0.50-1.40 Lvl) [facility] HospitalPzszkrzAQAPBPUVXTTW5699-44-84 18:25:00 Test Item Value Reference Range Interpretation Comments BUN (test code = BUN) 24 7-22 [facility] HospitalIlgjueqIUXDYDDUYKMZ2982-44-15 18:25:00 Test Item Value Reference Range Interpretation Comments Glucose Lvl (test code = Glucose Lvl) 108 70-99 [facility] HospitalQdwbderZPIZLQQHTTFX7233-80-30 18:25:00 Test Item Value Reference Range Interpretation Comments AGAP (test code = AGAP) 11.4 10.0-20.0 [facility] HospitalWhspdqnPLZWICYTEA1396-91-09 18:25:00 Test Item Value Reference Range Interpretation Comments INR (test code = INR) 1.10 0.85-1.17 [facility]landBdexdsjYQSXXZCPQA7603-72-01 18:25:00 Test Item Value Reference Range Interpretation Comments PT (test code = PT) 14.4 s 12.0-14.7 [facility]landWyamjaaOOEDNCUQEM6075-27-66 18:25:00 Test Item Value Reference Range Interpretation Comments PTT (test code = PTT) 30.3 s 22.9-35.8 [facility]landNvuddlfCSDRIRULHB7609-79-67 18:25:00 Test Item Value Reference Range Interpretation Comments Hgb (test code = Hgb) 13.1 12.0-16.0 [facility]landOytmewxQCIGANMYKV8216-89-77 18:25:00 Test Item Value Reference Range Interpretation Comments RBC (test code = RBC) 4.51 4.20-5.40 [facility]landQtegbxfRSJLAPHOUL0061-13-06 18:25:00 Test Item Value Reference Range Interpretation Comments WBC (test code = WBC) 5.4 3.7-10.4 [facility]landWmqmeshFAJMKFTPLG0709-33-99 18:25:00 Test Item Value Reference Range Interpretation Comments MPV (test code = MPV) 7.2 7.4-10.4 [facility]landIxuezsdRHLXTTXFJG4463-09-70 18:25:00 Test Item Value Reference Range Interpretation Comments MCHC (test code = MCHC) 33.0 32.0-36.0 [facility]landPasvgshOBGESNKPZC9644-35-94 18:25:00 Test Item Value Reference Range Interpretation Comments RDW (test code = RDW) 14.0 11.5-14.5 [facility]landKihsvqoTLKALQUYMY6908-57-65 18:25:00 Test Item Value Reference Range Interpretation Comments Platelet (test code = Platelet) 278 133-450 [facility]landAcnnkriCXGVRWDFRW1009-57-06 18:25:00 Test Item Value Reference Range Interpretation Comments MCH (test code = MCH) 29.0 pg 27.0-31.0 [facility]landXuecnlwBLVDEMWVMO3143-59-72 18:25:00 Test Item Value Reference Range Interpretation Comments MCV (test code = MCV) 87.9 80.0-98.0 [facility]landAoltrahQELMMXAILB5984-73-84 18:25:00 Test Item Value Reference Range Interpretation Comments Hct (test code = Hct) 39.7 36.0-48.0 [facility]landSaaordvVTZITQVGFK6141-44-23 18:25:00 Test Item Value Reference Range Interpretation Comments Eosinophils (test code = 2.2 See_Comment [A utomated message] The Eosinophils) system which ge nerated this result tra nsmitted reference range : <=4.0. The reference r robbie was not used to int erpret this result as normal/abnormal . [facility]landSkankxqAHWUFMHLKA5106-15-71 18:25:00 Test Item Value Reference Range Interpretation Comments Segs-Bands # (test code = Segs-Bands #) 2.8 1.5-8.1 [facility]landPkmurscUYHDEDWZSN9092-46-24 18:25:00 Test Item Value Reference Range Interpretation Comments Basophils (test code = 0.9 See_Comment [Aut omated message] The Basophils) system which ge nerated this result tra nsmitted reference range : <=1.0. The reference r robbie was not used to int erpret this result as normal/abnormal . [facility]landQrrjhjnXEZYQNSYXG2509-87-24 18:25:00 Test Item Value Reference Range Interpretation Comments Lymphocytes # (test code = Lymphocytes 2.1 1.0-5.5 #) [facility]landFgibqbhUDADMJXBGZ1866-59-97 18:25:00 Test Item Value Reference Range Interpretation Comments Segs (test code = Segs) 52.3 45.0-75.0 [facility]landBkwtuztWCFTZXKJFB0919-95-23 18:25:00 Test Item Value Reference Range Interpretation Comments Lymphocytes (test code = Lymphocytes) 38.0 20.0-40.0 [facility]landZpejmvbUHBYVDNHZV0898-04-29 18:25:00 Test Item Value Reference Range Interpretation Comments Monocytes (test code = Monocytes) 6.6 2.0-12.0 [facility]landLnktrlaGCECTEKGUI4404-60-13 18:25:00 Test Item Value Reference Range Interpretation Comments Basophils # (test code 0.1 See_Comment [Aut omated message] The = Basophils #) system which generated this result tra nsmitted reference range : <=0.2. The reference r robbie was not used to int erpret this result as normal/abnormal . [facility]NmjkevrBHDIWPXILM0578-52-80 18:25:00 Test Item Value Reference Range Interpretation Comments Eosinophils # (test code 0.1 See_Comment [A utomated message] The = Eosinophils #) system whic h generated this result tra nsmitted reference range : <=0.5. The reference r robbie was not used to int erpret this result as normal/abnormal . [facility]uiqqwtUIKCIYNMHA4290-23-57 18:25:00 Test Item Value Reference Range Interpretation Comments Monocytes # (test code 0.4 See_Comment [Aut omated message] The = Monocytes #) system which generated this result tra nsmitted reference range : <=0.8. The reference r robbie was not used to int erpret this result as normal/abnormal . [facility] [id number] 18:25:00 Test Item Value Reference Range Interpretation Comments ABO/Rh (test code = ABO/Rh) O [facility] [id number] 18:25:00 Test Item Value Reference Range Interpretation Comments Antibody Scrn (test Negative (10/28/16 12:25 code = Antibody Scrn) PM) [facility] [id number] 18:25:00 Test Item Value Reference Range Interpretation Comments Magnesium Lvl (test code = Magnesium 1.9 1.8-2.4 Lvl) [facility]QwvfsygREYOICUQYXCU7265-70-24 18:25:00 Test Item Value Reference Range Interpretation Comments Potassium Lvl (test code = Potassium 4.4 3.5-5.1 Lvl) [facility] HospitalUzhwvyiUBKZAKLKCPII0226-65-57 18:25:00 Test Item Value Reference Range Interpretation Comments Calcium Lvl (test code = Calcium Lvl) 9.4 8.5-10.5 [facility] HospitalDxtraqeMEUQZOCNNQCD8244-01-51 18:25:00 Test Item Value Reference Range Interpretation Comments CO2 (test code = CO2) 31 24-32 [facility]HqzkgmkRBWBTZQFPUGO3564-12-35 18:25:00 Test Item Value Reference Range Interpretation Comments Chloride Lvl (test code = Chloride Lvl) 103 95-109 [facility] CenterJopxgqaDTLLOXIQFVHI0525-08-21 18:25:00 Test Item Value Reference Range Interpretation Comments eGFR (test code = eGFR) 55 [facility]QvrgtbmVMVISOHDCOCB8909-56-92 18:25:00 Test Item Value Reference Range Interpretation Comments Sodium Lvl (test code = Sodium Lvl) 141 135-145 [facility] HospitalPhicfedCUNWHWEPAKBK7991-48-13 18:25:00 Test Item Value Reference Range Interpretation Comments Creatinine Lvl (test code = Creatinine 0.97 0.50-1.40 Lvl) [facility] HospitalFsrynvwUIPIIRLKXRPY1885-78-08 18:25:00 Test Item Value Reference Range Interpretation Comments BUN (test code = BUN) 24 7-22 [facility] HospitalKkqzyszNXMBCHKMICCI1925-74-40 18:25:00 Test Item Value Reference Range Interpretation Comments Glucose Lvl (test code = Glucose Lvl) 108 70-99 [facility] HospitalVsyjpflJNVFLIGTYVOS1438-17-40 18:25:00 Test Item Value Reference Range Interpretation Comments AGAP (test code = AGAP) 11.4 10.0-20.0 [facility]landDrmnpakWVYRPFIEDO3443-21-91 18:25:00 Test Item Value Reference Range Interpretation Comments INR (test code = INR) 1.10 0.85-1.17 [facility]landLyvhxrbBDFTTGENUW2927-12-62 18:25:00 Test Item Value Reference Range Interpretation Comments PT (test code = PT) 14.4 s 12.0-14.7 [facility]landZiirflgCQATTQJCSE7304-95-21 18:25:00 Test Item Value Reference Range Interpretation Comments PTT (test code = PTT) 30.3 s 22.9-35.8 [facility]landNqylrnsCXKRAYJCTU0866-94-56 18:25:00 Test Item Value Reference Range Interpretation Comments Hgb (test code = Hgb) 13.1 12.0-16.0 [facility]landEiemoqtXFJVBSGRTM6943-42-87 18:25:00 Test Item Value Reference Range Interpretation Comments RBC (test code = RBC) 4.51 4.20-5.40 [facility]landFtirwdnTNYKWRUQEX6280-65-88 18:25:00 Test Item Value Reference Range Interpretation Comments WBC (test code = WBC) 5.4 3.7-10.4 [facility]landNakgxikCVMLTPPWXP3121-37-78 18:25:00 Test Item Value Reference Range Interpretation Comments MPV (test code = MPV) 7.2 7.4-10.4 [facility]landIyzrebhDERCBAWBSP5712-67-81 18:25:00 Test Item Value Reference Range Interpretation Comments MCHC (test code = MCHC) 33.0 32.0-36.0 [facility]landDbqbithZCHSCAUBEJ1359-20-95 18:25:00 Test Item Value Reference Range Interpretation Comments RDW (test code = RDW) 14.0 11.5-14.5 [facility]landXuwlbgkLINWIRPFZL2544-98-32 18:25:00 Test Item Value Reference Range Interpretation Comments Platelet (test code = Platelet) 278 133-450 [facility]landUdzwuuiDFHSLWLQAM6963-46-59 18:25:00 Test Item Value Reference Range Interpretation Comments MCH (test code = MCH) 29.0 pg 27.0-31.0 [facility]landWqqzprjKSRQNGNION7121-14-28 18:25:00 Test Item Value Reference Range Interpretation Comments MCV (test code = MCV) 87.9 80.0-98.0 [facility]landVahryikXSEILFSDCL8228-29-19 18:25:00 Test Item Value Reference Range Interpretation Comments Hct (test code = Hct) 39.7 36.0-48.0 [facility]landPuhjxsxDHNJHJMXRG7360-64-48 18:25:00 Test Item Value Reference Range Interpretation Comments Eosinophils (test code = 2.2 See_Comment [A utomated message] The Eosinophils) system which ge nerated this result tra nsmitted reference range : <=4.0. The reference r robbie was not used to int erpret this result as normal/abnormal . [facility]landVenaingRMUKVLMIIC9699-03-10 18:25:00 Test Item Value Reference Range Interpretation Comments Segs-Bands # (test code = Segs-Bands #) 2.8 1.5-8.1 [facility]landRdasbswBUBPIKFRTW0090-88-64 18:25:00 Test Item Value Reference Range Interpretation Comments Basophils (test code = 0.9 See_Comment [Aut omated message] The Basophils) system which ge nerated this result tra nsmitted reference range : <=1.0. The reference r robbie was not used to int erpret this result as normal/abnormal . [facility]landZunlhipUHXPPVLOGF9420-28-19 18:25:00 Test Item Value Reference Range Interpretation Comments Lymphocytes # (test code = Lymphocytes 2.1 1.0-5.5 #) [facility]landKhixgfoVKKFUHCGAS7762-35-10 18:25:00 Test Item Value Reference Range Interpretation Comments Segs (test code = Segs) 52.3 45.0-75.0 [facility]landEdsmysmERZWGUAISD2501-31-36 18:25:00 Test Item Value Reference Range Interpretation Comments Lymphocytes (test code = Lymphocytes) 38.0 20.0-40.0 [facility]landCaifiyoFBBQHPZMEI3987-40-55 18:25:00 Test Item Value Reference Range Interpretation Comments Monocytes (test code = Monocytes) 6.6 2.0-12.0 [facility]landClxrgmjTQWKWYJCAC9015-91-29 18:25:00 Test Item Value Reference Range Interpretation Comments Basophils # (test code 0.1 See_Comment [Aut omated message] The = Basophils #) system which generated this result tra nsmitted reference range : <=0.2. The reference r robbie was not used to int erpret this result as normal/abnormal . [facility]landLrpcuxfZTJNRZASQS3312-94-21 18:25:00 Test Item Value Reference Range Interpretation Comments Eosinophils # (test code 0.1 See_Comment [A utomated message] The = Eosinophils #) system whic h generated this result tra nsmitted reference range : <=0.5. The reference r robbie was not used to int erpret this result as normal/abnormal . [facility]landFmsuveyDEJLYWSUUI2389-47-95 18:25:00 Test Item Value Reference Range Interpretation Comments Monocytes # (test code 0.4 See_Comment [Aut omated message] The = Monocytes #) system which generated this result tra nsmitted reference range : <=0.8. The reference r robbie was not used to int erpret this result as normal/abnormal . [facility] HospitalCITIA CZVXE3544-91-95 08:58:00 Test Item Value Reference Range Interpretation Comments Phosphorus (test code = Phosphorus) 2.9 2.5-4.5 [facility]6[employer] JKNWP0591-65-93 08:58:00 Test Item Value Reference Range Interpretation Comments Magnesium Lvl (test code = Magnesium 2.4 1.8-2.4 Lvl) [facility] HospitalXqgyfwhAGMAXSMYXEWF8867-54-36 08:58:00 Test Item Value Reference Range Interpretation Comments Sodium Lvl (test code = Sodium Lvl) 139 135-145 [facility] HospitalAzctigmVLZNGXRGZKDC2783-21-09 08:58:00 Test Item Value Reference Range Interpretation Comments Creatinine Lvl (test code = Creatinine 1.14 0.50-1.40 Lvl) [facility] HospitalWtmplssAIDRVACCYQPF3787-79-63 08:58:00 Test Item Value Reference Range Interpretation Comments Chloride Lvl (test code = Chloride Lvl) 104 95-109 [facility] HospitalUqhfekoJSFNDGVQCGNJ2564-79-35 08:58:00 Test Item Value Reference Range Interpretation Comments CO2 (test code = CO2) 28 24-32 [facility] HospitalAwotnwnGAHWMOYLFPZY7675-56-13 08:58:00 Test Item Value Reference Range Interpretation Comments Calcium Lvl (test code = Calcium Lvl) 8.7 8.5-10.5 [facility] HospitalLehlqcjODSTVIQRRFHB3182-72-51 08:58:00 Test Item Value Reference Range Interpretation Comments Potassium Lvl (test code = Potassium 4.8 3.5-5.1 Lvl) [facility] HospitalBxbcrefEXIRWDGLBEAW7043-66-16 08:58:00 Test Item Value Reference Range Interpretation Comments AGAP (test code = AGAP) 11.8 10.0-20.0 [facility] HospitalTamebzvYSQJUMQIDCYA2187-16-81 08:58:00 Test Item Value Reference Range Interpretation Comments eGFR (test code = eGFR) 45 [facility] HospitalJagwiixWONXKSNWWCZB5382-58-07 08:58:00 Test Item Value Reference Range Interpretation Comments BUN (test code = BUN) 25 7-22 [facility] HospitalHczzwesNFIODTHYMEGL3237-92-53 08:58:00 Test Item Value Reference Range Interpretation Comments Glucose Lvl (test code = Glucose Lvl) 113 70-99 [facility]landDjtsnkbVPQLFMNYWB3818-85-56 08:58:00 Test Item Value Reference Range Interpretation Comments MPV (test code = MPV) 7.8 7.4-10.4 [facility]landSyosituUACDTSCVZK8977-84-73 08:58:00 Test Item Value Reference Range Interpretation Comments Platelet (test code = Platelet) 301 133-450 [facility]landAyghekqQBLZTQAERD8634-76-81 08:58:00 Test Item Value Reference Range Interpretation Comments RDW (test code = RDW) 14.1 11.5-14.5 [facility]landVxwhpyhGEKPCUHMIJ6983-12-23 08:58:00 Test Item Value Reference Range Interpretation Comments MCH (test code = MCH) 29.9 pg 27.0-31.0 [facility]landSjllubzFRIWHVGONJ1207-89-24 08:58:00 Test Item Value Reference Range Interpretation Comments MCV (test code = MCV) 89.6 80.0-98.0 [facility]landCjmjcfnYGOBVEQFKP5668-04-14 08:58:00 Test Item Value Reference Range Interpretation Comments MCHC (test code = MCHC) 33.4 32.0-36.0 [facility]landUssziflUQICNLLQLV4320-91-87 08:58:00 Test Item Value Reference Range Interpretation Comments Hct (test code = Hct) 34.3 36.0-48.0 [facility]landVtoioubCOZSAAGCXX9888-59-12 08:58:00 Test Item Value Reference Range Interpretation Comments Hgb (test code = Hgb) 11.5 12.0-16.0 [facility]landJautnqjCGOILBSFLD2081-25-54 08:58:00 Test Item Value Reference Range Interpretation Comments RBC (test code = RBC) 3.83 4.20-5.40 [facility]landBtkuvpcBVGVCTZRXI2182-19-48 08:58:00 Test Item Value Reference Range Interpretation Comments WBC (test code = WBC) 8.2 3.7-10.4 [facility]landZlrqgmpLKKCFOTOLA4972-05-64 08:58:00 Test Item Value Reference Range Interpretation Comments Lymphocytes # (test code = Lymphocytes 1.9 1.0-5.5 #) [facility]landGdpjylcNTAZEQEXFA7983-98-26 08:58:00 Test Item Value Reference Range Interpretation Comments Segs-Bands # (test code = Segs-Bands #) 5.5 1.5-8.1 [facility]landWhrkzdzLDABSXZSSR9343-50-02 08:58:00 Test Item Value Reference Range Interpretation Comments Eosinophils (test code = 1.4 See_Comment [A utomated message] The Eosinophils) system which ge nerated this result tra nsmitted reference range : <=4.0. The reference r robbie was not used to int erpret this result as normal/abnormal . [facility]landQgqxgviACEQWUZLDK3173-18-91 08:58:00 Test Item Value Reference Range Interpretation Comments Basophils (test code = 0.5 See_Comment [Aut omated message] The Basophils) system which ge nerated this result tra nsmitted reference range : <=1.0. The reference r robbie was not used to int erpret this result as normal/abnormal . [facility]landJonorrsVLOJTMNHES6955-75-12 08:58:00 Test Item Value Reference Range Interpretation Comments Monocytes (test code = Monocytes) 9.1 2.0-12.0 [facility]landYdeonbuWUJVHJIAEY5984-95-85 08:58:00 Test Item Value Reference Range Interpretation Comments Segs (test code = Segs) 66.2 45.0-75.0 [facility]landFilmzrsDWGINBTIZF2819-54-67 08:58:00 Test Item Value Reference Range Interpretation Comments Lymphocytes (test code = Lymphocytes) 22.8 20.0-40.0 [facility]landXdydwvvDRRQUMZEMR9073-03-36 08:58:00 Test Item Value Reference Range Interpretation Comments Eosinophils # (test code 0.1 See_Comment [A utomated message] The = Eosinophils #) system whic h generated this result tra nsmitted reference range : <=0.5. The reference r robbie was not used to int erpret this result as normal/abnormal . [facility]landMrtcjdzWMDDSTUJNV5798-90-56 08:58:00 Test Item Value Reference Range Interpretation Comments Monocytes # (test code 0.7 See_Comment [Aut omated message] The = Monocytes #) system which generated this result tra nsmitted reference range : <=0.8. The reference r robbie was not used to int erpret this result as normal/abnormal . [facility]CITIA OGSNX5087-64-52 08:58:00 Test Item Value Reference Range Interpretation Comments Phosphorus (test code = Phosphorus) 2.9 2.5-4.5 [facility]CIT[facility] YLWCZ0372-34-44 08:58:00 Test Item Value Reference Range Interpretation Comments Magnesium Lvl (test code = Magnesium 2.4 1.8-2.4 Lvl) [facility] HospitalWhbitktRFDDERRFQSWX9457-01-98 08:58:00 Test Item Value Reference Range Interpretation Comments Sodium Lvl (test code = Sodium Lvl) 139 135-145 [facility] HospitalIepsgluHBMBDEDEGOOK0372-57-34 08:58:00 Test Item Value Reference Range Interpretation Comments Creatinine Lvl (test code = Creatinine 1.14 0.50-1.40 Lvl) [facility] HospitalWgkbwbqBPAHARJYAPIO6778-35-82 08:58:00 Test Item Value Reference Range Interpretation Comments Chloride Lvl (test code = Chloride Lvl) 104 95-109 [facility] HospitalHrsxqbqUUALYSIYYPYK1235-43-89 08:58:00 Test Item Value Reference Range Interpretation Comments CO2 (test code = CO2) 28 24-32 [facility] HospitalThfgcwuPFEYUERFDYGB4705-56-50 08:58:00 Test Item Value Reference Range Interpretation Comments Calcium Lvl (test code = Calcium Lvl) 8.7 8.5-10.5 [facility] HospitalQzjliozSXOKWWINWRIR1919-78-72 08:58:00 Test Item Value Reference Range Interpretation Comments Potassium Lvl (test code = Potassium 4.8 3.5-5.1 Lvl) [facility] HospitalTgvqthkDWRBHFHQTTFD6660-87-75 08:58:00 Test Item Value Reference Range Interpretation Comments AGAP (test code = AGAP) 11.8 10.0-20.0 [facility] HospitalTgpfhriAGEOUBQKWKGO5024-17-02 08:58:00 Test Item Value Reference Range Interpretation Comments eGFR (test code = eGFR) 45 [facility] HospitalBjghwycXOILHQXNWEEG3673-48-26 08:58:00 Test Item Value Reference Range Interpretation Comments BUN (test code = BUN) 25 7-22 [facility] HospitalMysdhquMUIKGZNXMYPI5089-73-11 08:58:00 Test Item Value Reference Range Interpretation Comments Glucose Lvl (test code = Glucose Lvl) 113 70-99 [facility]landCahazlsUIRYXJLUGR6342-88-69 08:58:00 Test Item Value Reference Range Interpretation Comments MPV (test code = MPV) 7.8 7.4-10.4 [facility]landBhsmgpcHINJSNTPUF6406-30-90 08:58:00 Test Item Value Reference Range Interpretation Comments Platelet (test code = Platelet) 301 133-450 [facility]landHpgmcfnHDRXREVGAU2967-55-77 08:58:00 Test Item Value Reference Range Interpretation Comments RDW (test code = RDW) 14.1 11.5-14.5 [facility]landDldvbfrYWBCRASGWV8230-21-56 08:58:00 Test Item Value Reference Range Interpretation Comments MCH (test code = MCH) 29.9 pg 27.0-31.0 [facility]landCxktmspQGWWLKVNZY3804-77-29 08:58:00 Test Item Value Reference Range Interpretation Comments MCV (test code = MCV) 89.6 80.0-98.0 [facility]landKaxujewHFVZZWJDPF4842-45-11 08:58:00 Test Item Value Reference Range Interpretation Comments MCHC (test code = MCHC) 33.4 32.0-36.0 [facility]landOqtpkugGYZQDUBAEY8814-23-27 08:58:00 Test Item Value Reference Range Interpretation Comments Hct (test code = Hct) 34.3 36.0-48.0 [facility]landKwyxczsWPMYOJRONM3400-64-46 08:58:00 Test Item Value Reference Range Interpretation Comments Hgb (test code = Hgb) 11.5 12.0-16.0 [facility]landWctmuyhMHCFWIPEBB7717-01-82 08:58:00 Test Item Value Reference Range Interpretation Comments RBC (test code = RBC) 3.83 4.20-5.40 [facility]landVwjhexiMTFENWVWYL8792-72-45 08:58:00 Test Item Value Reference Range Interpretation Comments WBC (test code = WBC) 8.2 3.7-10.4 [facility]landSxyrbezOYRNXTYKIQ7960-82-82 08:58:00 Test Item Value Reference Range Interpretation Comments Lymphocytes # (test code = Lymphocytes 1.9 1.0-5.5 #) [facility]landJxmxjriVIULZFJOHM1402-90-62 08:58:00 Test Item Value Reference Range Interpretation Comments Segs-Bands # (test code = Segs-Bands #) 5.5 1.5-8.1 [facility]landDhgcsqxCKEWJHNLOW9396-53-85 08:58:00 Test Item Value Reference Range Interpretation Comments Eosinophils (test code = 1.4 See_Comment [A utomated message] The Eosinophils) system which ge nerated this result tra nsmitted reference range : <=4.0. The reference r robbie was not used to int erpret this result as normal/abnormal . [facility]landQeowckoSPDHDEESKG0269-61-42 08:58:00 Test Item Value Reference Range Interpretation Comments Basophils (test code = 0.5 See_Comment [Aut omated message] The Basophils) system which ge nerated this result tra nsmitted reference range : <=1.0. The reference r robbie was not used to int erpret this result as normal/abnormal . [facility]landOngyaugWGQNTJSSFS8463-13-04 08:58:00 Test Item Value Reference Range Interpretation Comments Monocytes (test code = Monocytes) 9.1 2.0-12.0 [facility]landMakvboqBPMLBOCLCB1265-92-61 08:58:00 Test Item Value Reference Range Interpretation Comments Segs (test code = Segs) 66.2 45.0-75.0 [facility]landWcdnxyaJPEBOTFWID2474-07-20 08:58:00 Test Item Value Reference Range Interpretation Comments Lymphocytes (test code = Lymphocytes) 22.8 20.0-40.0 [facility]landLravvrhJGRZEXGAUS8815-11-00 08:58:00 Test Item Value Reference Range Interpretation Comments Eosinophils # (test code 0.1 See_Comment [A utomated message] The = Eosinophils #) system whic h generated this result tra nsmitted reference range : <=0.5. The reference r robbie was not used to int erpret this result as normal/abnormal . [facility]landIrxiitgDORSLEJLCJ4137-20-64 08:58:00 Test Item Value Reference Range Interpretation Comments Monocytes # (test code 0.7 See_Comment [Aut omated message] The = Monocytes #) system which generated this result tra nsmitted reference range : <=0.8. The reference r robbie was not used to int erpret this result as normal/abnormal . [facility]2016-09-01 09:58:00 Test Item Value Reference Range Interpretation Comments Phosphorus (test code = Phosphorus) 3.7 2.5-4.5 [facility]2016-09-01 09:58:00 Test Item Value Reference Range Interpretation Comments Magnesium Lvl (test code = Magnesium 2.1 1.8-2.4 Lvl) [facility]2016-09-01 09:58:00 Test Item Value Reference Range Interpretation Comments eGFR (test code = eGFR) 42 [facility]2016-09-01 09:58:00 Test Item Value Reference Range Interpretation Comments AGAP (test code = AGAP) 12.9 10.0-20.0 [facility]2016-09-01 09:58:00 Test Item Value Reference Range Interpretation Comments Chloride Lvl (test code = Chloride Lvl) 104 95-109 [facility]2016-09-01 09:58:00 Test Item Value Reference Range Interpretation Comments CO2 (test code = CO2) 25 24-32 [facility]2016-09-01 09:58:00 Test Item Value Reference Range Interpretation Comments Calcium Lvl (test code = Calcium Lvl) 8.5 8.5-10.5 [facility]2016-09-01 09:58:00 Test Item Value Reference Range Interpretation Comments Potassium Lvl (test code = Potassium 3.9 3.5-5.1 Lvl) [facility]2016-09-01 09:58:00 Test Item Value Reference Range Interpretation Comments Creatinine Lvl (test code = Creatinine 1.22 0.50-1.40 Lvl) [facility]2016-09-01 09:58:00 Test Item Value Reference Range Interpretation Comments Sodium Lvl (test code = Sodium Lvl) 138 135-145 [facility]2016-09-01 09:58:00 Test Item Value Reference Range Interpretation Comments BUN (test code = BUN) 24 7-22 [facility]2016-09-01 09:58:00 Test Item Value Reference Range Interpretation Comments Glucose Lvl (test code = Glucose Lvl) 92 70-99 [facility]2016-09-01 09:58:00 Test Item Value Reference Range Interpretation Comments Phosphorus (test code = Phosphorus) 3.7 2.5-4.5 [facility]2016-09-01 09:58:00 Test Item Value Reference Range Interpretation Comments Magnesium Lvl (test code = Magnesium 2.1 1.8-2.4 Lvl) [facility]2016-09-01 09:58:00 Test Item Value Reference Range Interpretation Comments eGFR (test code = eGFR) 42 [facility]2016-09-01 09:58:00 Test Item Value Reference Range Interpretation Comments AGAP (test code = AGAP) 12.9 10.0-20.0 [facility]2016-09-01 09:58:00 Test Item Value Reference Range Interpretation Comments Chloride Lvl (test code = Chloride Lvl) 104 95-109 [facility]2016-09-01 09:58:00 Test Item Value Reference Range Interpretation Comments CO2 (test code = CO2) 25 24-32 [facility]2016-09-01 09:58:00 Test Item Value Reference Range Interpretation Comments Calcium Lvl (test code = Calcium Lvl) 8.5 8.5-10.5 [facility]2016-09-01 09:58:00 Test Item Value Reference Range Interpretation Comments Potassium Lvl (test code = Potassium 3.9 3.5-5.1 Lvl) [facility]2016-09-01 09:58:00 Test Item Value Reference Range Interpretation Comments Creatinine Lvl (test code = Creatinine 1.22 0.50-1.40 Lvl) [facility]2016-09-01 09:58:00 Test Item Value Reference Range Interpretation Comments Sodium Lvl (test code = Sodium Lvl) 138 135-145 [facility]2016-09-01 09:58:00 Test Item Value Reference Range Interpretation Comments BUN (test code = BUN) 24 7-22 [facility]2016-09-01 09:58:00 Test Item Value Reference Range Interpretation Comments Glucose Lvl (test code = Glucose Lvl) 92 70-99 [facility]2016-08-31 14:11:00 Test Item Value Reference Range Interpretation Comments Aldosterone (test code = Aldosterone) no gt [facility]2016-08-31 14:11:00 Test Item Value Reference Range Interpretation Comments Aldosterone (test code = Aldosterone) no gt [place] [id number] 13:47:00 Test Item Value Reference Range Interpretation Comments Cortisol (test code = Cortisol) 8.6 [place] [id number] 13:47:00 Test Item Value Reference Range Interpretation Comments Cortisol (test code = Cortisol) 8.6 [facility]2016-08-31 07:59:00 Test Item Value Reference Range Interpretation Comments Phosphorus (test code = Phosphorus) 3.3 2.5-4.5 [facility]2016-08-31 07:59:00 Test Item Value Reference Range Interpretation Comments Magnesium Lvl (test code = Magnesium 1.8 1.8-2.4 Lvl) [facility]AzohzxqRUDKPYHBEXPL6971-90-36 07:59:00 Test Item Value Reference Range Interpretation Comments AGAP (test code = AGAP) 11.2 10.0-20.0 [facility]NvkhedkSYKURZJRQAEZ0760-11-23 07:59:00 Test Item Value Reference Range Interpretation Comments eGFR (test code = eGFR) 49 [facility]QijmyduYPZLPCEBZAEC9182-75-13 07:59:00 Test Item Value Reference Range Interpretation Comments Calcium Lvl (test code = Calcium Lvl) 8.4 8.5-10.5 [facility] HospitalWgnizwgDOGHTFXVLCYE8944-65-65 07:59:00 Test Item Value Reference Range Interpretation Comments Potassium Lvl (test code = Potassium 4.2 3.5-5.1 Lvl) [facility]AqmlfubYYSWQCBSSPEM6183-77-69 07:59:00 Test Item Value Reference Range Interpretation Comments Chloride Lvl (test code = Chloride Lvl) 105 95-109 [facility] HospitalOfpdwlbCRRBOPWMUGPB5305-52-47 07:59:00 Test Item Value Reference Range Interpretation Comments CO2 (test code = CO2) 28 24-32 [facility] HospitalAffnzglSQYJOCNXLIOE1546-53-26 07:59:00 Test Item Value Reference Range Interpretation Comments BUN (test code = BUN) 22 7-22 [facility] HospitalMesnzdsZBIDDESEGWYE8719-27-74 07:59:00 Test Item Value Reference Range Interpretation Comments Glucose Lvl (test code = Glucose Lvl) 109 70-99 [facility]CiuzsvtKILNLLGFWMUE0575-16-09 07:59:00 Test Item Value Reference Range Interpretation Comments Creatinine Lvl (test code = Creatinine 1.07 0.50-1.40 Lvl) [facility] HospitalFgpzpgtYVJTRQDFMBWR6095-83-52 07:59:00 Test Item Value Reference Range Interpretation Comments Sodium Lvl (test code = Sodium Lvl) 140 135-145 [facility]WwmtapwGAMQIYLTOV8206-56-73 07:59:00 Test Item Value Reference Range Interpretation Comments WBC (test code = WBC) 7.3 3.7-10.4 [facility]landGyrfdueYMIXPKIZJS9181-54-26 07:59:00 Test Item Value Reference Range Interpretation Comments MCH (test code = MCH) 29.6 pg 27.0-31.0 [facility]landCezauiqWXUXRLQRHU1380-99-05 07:59:00 Test Item Value Reference Range Interpretation Comments MCV (test code = MCV) 88.9 80.0-98.0 [facility]landKuhikfrWBZKZHDIID8558-03-52 07:59:00 Test Item Value Reference Range Interpretation Comments Hct (test code = Hct) 36.7 36.0-48.0 [facility]landQdphsmpFLDXNIVBMT5448-49-64 07:59:00 Test Item Value Reference Range Interpretation Comments Hgb (test code = Hgb) 12.2 12.0-16.0 [facility]landMyfyughZFISTXJULJ6249-59-50 07:59:00 Test Item Value Reference Range Interpretation Comments RBC (test code = RBC) 4.12 4.20-5.40 [facility]landDyqiudmCRFUKLVTRO4623-36-99 07:59:00 Test Item Value Reference Range Interpretation Comments MPV (test code = MPV) 7.3 7.4-10.4 [facility]landCqeyppcVPHVDLXBFV6779-62-85 07:59:00 Test Item Value Reference Range Interpretation Comments Platelet (test code = Platelet) 290 133-450 [facility]landZzvilwjULJEZUHISG0284-04-94 07:59:00 Test Item Value Reference Range Interpretation Comments RDW (test code = RDW) 13.8 11.5-14.5 [facility]landGlohvtcNGPIWFKAPT9238-58-68 07:59:00 Test Item Value Reference Range Interpretation Comments MCHC (test code = MCHC) 33.3 32.0-36.0 [facility]landKzstzonQKEVISAAWS6596-93-15 07:59:00 Test Item Value Reference Range Interpretation Comments Lymphocytes # (test code = Lymphocytes 1.6 1.0-5.5 #) [facility]landCozosuaGPPICXZJXM1932-20-45 07:59:00 Test Item Value Reference Range Interpretation Comments Segs-Bands # (test code = Segs-Bands #) 4.8 1.5-8.1 [facility]landJbthnopEAMECYTMKA6234-68-87 07:59:00 Test Item Value Reference Range Interpretation Comments Eosinophils # (test code 0.2 See_Comment [A utomated message] The = Eosinophils #) system whic h generated this result tra nsmitted reference range : <=0.5. The reference r robbie was not used to int erpret this result as normal/abnormal . [facility]landUageywsJQZKLVIYCU1979-98-75 07:59:00 Test Item Value Reference Range Interpretation Comments Monocytes # (test code 0.7 See_Comment [Aut omated message] The = Monocytes #) system which generated this result tra nsmitted reference range : <=0.8. The reference r robbie was not used to int erpret this result as normal/abnormal . [facility]landIbonlyzYKDABZNBBG7505-04-55 07:59:00 Test Item Value Reference Range Interpretation Comments Basophils # (test code 0.1 See_Comment [Aut omated message] The = Basophils #) system which generated this result tra nsmitted reference range : <=0.2. The reference r robbie was not used to int erpret this result as normal/abnormal . [facility]landIurfijdALNJMSLWVG7928-10-92 07:59:00 Test Item Value Reference Range Interpretation Comments Lymphocytes (test code = Lymphocytes) 21.7 20.0-40.0 [facility]landKixvfcdLLAPWTUTOQ2147-06-34 07:59:00 Test Item Value Reference Range Interpretation Comments Segs (test code = Segs) 65.6 45.0-75.0 [facility]landDebqhdpNYRSRLNTJJ2209-32-76 07:59:00 Test Item Value Reference Range Interpretation Comments Basophils (test code = 0.8 See_Comment [Aut omated message] The Basophils) system which ge nerated this result tra nsmitted reference range : <=1.0. The reference r robbie was not used to int erpret this result as normal/abnormal . [facility]landBlnrvmyNMSKFTCPTT9150-93-37 07:59:00 Test Item Value Reference Range Interpretation Comments Eosinophils (test code = 2.1 See_Comment [A utomated message] The Eosinophils) system which ge nerated this result tra nsmitted reference range : <=4.0. The reference r robbie was not used to int erpret this result as normal/abnormal . [facility]landNtepridQKHIKANFSS5963-07-18 07:59:00 Test Item Value Reference Range Interpretation Comments Monocytes (test code = Monocytes) 9.8 2.0-12.0 [facility] AGPBD0571-68-96 07:59:00 Test Item Value Reference Range Interpretation Comments Phosphorus (test code = Phosphorus) 3.3 2.5-4.5 [facility] WPUBS1417-01-59 07:59:00 Test Item Value Reference Range Interpretation Comments Magnesium Lvl (test code = Magnesium 1.8 1.8-2.4 Lvl) [facility]IkocqvuPPYZGZOOGXRW4566-40-16 07:59:00 Test Item Value Reference Range Interpretation Comments AGAP (test code = AGAP) 11.2 10.0-20.0 [facility]NbvfmwoGMNSXKMINVFQ2823-98-28 07:59:00 Test Item Value Reference Range Interpretation Comments eGFR (test code = eGFR) 49 [facility] HospitalIucwtqyDZCDFHAABBLR7740-08-65 07:59:00 Test Item Value Reference Range Interpretation Comments Calcium Lvl (test code = Calcium Lvl) 8.4 8.5-10.5 [facility] HospitalXpriphnQRCUDYZIUMLB6791-02-39 07:59:00 Test Item Value Reference Range Interpretation Comments Potassium Lvl (test code = Potassium 4.2 3.5-5.1 Lvl) [facility]AqczufpZVBYYJQZXQPD1951-58-38 07:59:00 Test Item Value Reference Range Interpretation Comments Chloride Lvl (test code = Chloride Lvl) 105 95-109 [facility] HospitalHmdqmtlWYMOGCCFBWGP0594-43-34 07:59:00 Test Item Value Reference Range Interpretation Comments CO2 (test code = CO2) 28 24-32 [facility] HospitalZxoczuaNADHLEQDLKWA0076-17-37 07:59:00 Test Item Value Reference Range Interpretation Comments BUN (test code = BUN) 22 7-22 [facility] HospitalCbamkyhPZHZODNMECOO9936-43-65 07:59:00 Test Item Value Reference Range Interpretation Comments Glucose Lvl (test code = Glucose Lvl) 109 70-99 [facility] HospitalHmdjrycASPEEJKHWRHC0142-72-68 07:59:00 Test Item Value Reference Range Interpretation Comments Creatinine Lvl (test code = Creatinine 1.07 0.50-1.40 Lvl) [facility] HospitalRwkioslSKFPNPZTGCGB8862-70-41 07:59:00 Test Item Value Reference Range Interpretation Comments Sodium Lvl (test code = Sodium Lvl) 140 135-145 [facility]landXjtruntKEGINCHVRU9295-69-24 07:59:00 Test Item Value Reference Range Interpretation Comments WBC (test code = WBC) 7.3 3.7-10.4 [facility]landOovcatrQCFDWPZWUQ3281-93-83 07:59:00 Test Item Value Reference Range Interpretation Comments MCH (test code = MCH) 29.6 pg 27.0-31.0 [facility]landQdpibuaQJHSWAAJDI1513-19-03 07:59:00 Test Item Value Reference Range Interpretation Comments MCV (test code = MCV) 88.9 80.0-98.0 [facility]landHtestzbQJOZEPDOXM4768-80-62 07:59:00 Test Item Value Reference Range Interpretation Comments Hct (test code = Hct) 36.7 36.0-48.0 [facility]landDnojsibIRRBCZIUHR4986-97-98 07:59:00 Test Item Value Reference Range Interpretation Comments Hgb (test code = Hgb) 12.2 12.0-16.0 [facility]landKfnrlkxPDWNHSFPGY6821-02-01 07:59:00 Test Item Value Reference Range Interpretation Comments RBC (test code = RBC) 4.12 4.20-5.40 [facility]landAgybwqrCGXHRAFXIJ5629-24-59 07:59:00 Test Item Value Reference Range Interpretation Comments MPV (test code = MPV) 7.3 7.4-10.4 [facility]landEjcgsgjQIQYCVUHRC8444-38-61 07:59:00 Test Item Value Reference Range Interpretation Comments Platelet (test code = Platelet) 290 133-450 [facility]landLlwmpvoNWEFSBGCKX8103-40-74 07:59:00 Test Item Value Reference Range Interpretation Comments RDW (test code = RDW) 13.8 11.5-14.5 [facility]landAsqftfdRQLWTXGWLT1303-31-20 07:59:00 Test Item Value Reference Range Interpretation Comments MCHC (test code = MCHC) 33.3 32.0-36.0 [facility]landFjnzlcaQQWCVZBULE3948-17-34 07:59:00 Test Item Value Reference Range Interpretation Comments Lymphocytes # (test code = Lymphocytes 1.6 1.0-5.5 #) [facility]landChktkylHDJEDUZREW3889-83-11 07:59:00 Test Item Value Reference Range Interpretation Comments Segs-Bands # (test code = Segs-Bands #) 4.8 1.5-8.1 [facility]landLbwdbrhKVMHHICKDU4258-03-22 07:59:00 Test Item Value Reference Range Interpretation Comments Eosinophils # (test code 0.2 See_Comment [A utomated message] The = Eosinophils #) system whic h generated this result tra nsmitted reference range : <=0.5. The reference r robbie was not used to int erpret this result as normal/abnormal . [facility]landRefbmvlOUBAAGEGLU9365-73-48 07:59:00 Test Item Value Reference Range Interpretation Comments Monocytes # (test code 0.7 See_Comment [Aut omated message] The = Monocytes #) system which generated this result tra nsmitted reference range : <=0.8. The reference r robbie was not used to int erpret this result as normal/abnormal . [facility]landWakhwpbMALLJKHEBB7380-17-90 07:59:00 Test Item Value Reference Range Interpretation Comments Basophils # (test code 0.1 See_Comment [Aut omated message] The = Basophils #) system which generated this result tra nsmitted reference range : <=0.2. The reference r robbie was not used to int erpret this result as normal/abnormal . [facility]landPnnrgevQQPLRVWRAZ9264-03-28 07:59:00 Test Item Value Reference Range Interpretation Comments Lymphocytes (test code = Lymphocytes) 21.7 20.0-40.0 [facility]landTmahzdiGJTOBLREKL8245-20-66 07:59:00 Test Item Value Reference Range Interpretation Comments Segs (test code = Segs) 65.6 45.0-75.0 [facility]landFtnlwztNTUYZHGGFE9964-86-83 07:59:00 Test Item Value Reference Range Interpretation Comments Basophils (test code = 0.8 See_Comment [Aut omated message] The Basophils) system which ge nerated this result tra nsmitted reference range : <=1.0. The reference r robbie was not used to int erpret this result as normal/abnormal . [facility]landZpfpeqjPWRDQQJQTB8012-47-31 07:59:00 Test Item Value Reference Range Interpretation Comments Eosinophils (test code = 2.1 See_Comment [A utomated message] The Eosinophils) system which ge nerated this result tra nsmitted reference range : <=4.0. The reference r robbie was not used to int erpret this result as normal/abnormal . [facility]landDmflggsBMHOJSSGLZ2948-70-15 07:59:00 Test Item Value Reference Range Interpretation Comments Monocytes (test code = Monocytes) 9.8 2.0-12.0 [facility]landRmnecycLTBUHKFZWX2204-51-18 08:51:00 Test Item Value Reference Range Interpretation Comments Segs (test code = Segs) 53.8 45.0-75.0 [facility]landYejsfaoIPPXZGROLG6597-50-50 08:51:00 Test Item Value Reference Range Interpretation Comments Monocytes # (test code 0.6 See_Comment [Aut omated message] The = Monocytes #) system which generated this result tra nsmitted reference range : <=0.8. The reference r robbie was not used to int erpret this result as normal/abnormal . [facility]landKkiynjlPEXOJNTBCJ8474-49-69 08:51:00 Test Item Value Reference Range Interpretation Comments Basophils (test code = 0.7 See_Comment [Aut omated message] The Basophils) system which ge nerated this result tra nsmitted reference range : <=1.0. The reference r robbie was not used to int erpret this result as normal/abnormal . [facility]landZxtqvyxPLWIZKXPBK2552-64-06 08:51:00 Test Item Value Reference Range Interpretation Comments Segs-Bands # (test code = Segs-Bands #) 3.1 1.5-8.1 [place] 671446-08-30 08:51:00 Test Item Value Reference Range Interpretation Comments Monocytes (test code = Monocytes) 9.7 2.0-12.0 [facility]landCbtkbgcULWTVETZLM0386-54-08 08:51:00 Test Item Value Reference Range Interpretation Comments Eosinophils (test code = 3.5 See_Comment [A utomated message] The Eosinophils) system which ge nerated this result tra nsmitted reference range : <=4.0. The reference r robbie was not used to int erpret this result as normal/abnormal . [facility]landEodfjajOBOXUNRPNN3823-95-32 08:51:00 Test Item Value Reference Range Interpretation Comments Lymphocytes (test code = Lymphocytes) 32.3 20.0-40.0 [facility]landSgdbnlbYURJDLBNMO6912-00-45 08:51:00 Test Item Value Reference Range Interpretation Comments Eosinophils # (test code 0.2 See_Comment [A utomated message] The = Eosinophils #) system whic h generated this result tra nsmitted reference range : <=0.5. The reference r robbie was not used to int erpret this result as normal/abnormal . [facility]landGkimtylUZVKXICHJH4178-52-88 08:51:00 Test Item Value Reference Range Interpretation Comments Lymphocytes # (test code = Lymphocytes 1.8 1.0-5.5 #) [facility]landMlgpobmGWVIFYZTTT7823-20-72 08:51:00 Test Item Value Reference Range Interpretation Comments MPV (test code = MPV) 7.6 7.4-10.4 [facility]landThmdibfMMJJYEPPQG3800-76-90 08:51:00 Test Item Value Reference Range Interpretation Comments MCH (test code = MCH) 30.0 pg 27.0-31.0 [facility]landXusabozEYBQHTMHBG7180-57-64 08:51:00 Test Item Value Reference Range Interpretation Comments MCV (test code = MCV) 89.1 80.0-98.0 [facility]landWfejpegSFGVTAYXZT8641-98-43 08:51:00 Test Item Value Reference Range Interpretation Comments MCHC (test code = MCHC) 33.7 32.0-36.0 [facility]landHgpheosGSRYFDFEKK5964-81-26 08:51:00 Test Item Value Reference Range Interpretation Comments RDW (test code = RDW) 13.8 11.5-14.5 [facility]landAglvovcQADYGSLOAS8877-44-62 08:51:00 Test Item Value Reference Range Interpretation Comments Platelet (test code = Platelet) 266 133-450 [facility]landEcijflzEVJZCTOIZY6372-24-09 08:51:00 Test Item Value Reference Range Interpretation Comments Hgb (test code = Hgb) 12.1 12.0-16.0 [facility]landPmxhpcaOPLAXPDSXX0353-85-98 08:51:00 Test Item Value Reference Range Interpretation Comments Hct (test code = Hct) 35.8 36.0-48.0 [facility]landAcftfejDCQWJRFPUZ6086-82-88 08:51:00 Test Item Value Reference Range Interpretation Comments WBC (test code = WBC) 5.7 3.7-10.4 [facility]landUdpocckHWSGLUEBUQ8357-81-28 08:51:00 Test Item Value Reference Range Interpretation Comments RBC (test code = RBC) 4.01 4.20-5.40 [facility]landKtzwgffGBSPRJCTUK1791-69-31 08:51:00 Test Item Value Reference Range Interpretation Comments Segs (test code = Segs) 53.8 45.0-75.0 [facility]landJdkxccnYJARXLGMOJ5452-23-48 08:51:00 Test Item Value Reference Range Interpretation Comments Monocytes # (test code 0.6 See_Comment [Aut omated message] The = Monocytes #) system which generated this result tra nsmitted reference range : <=0.8. The reference r robbie was not used to int erpret this result as normal/abnormal . [facility]landWxyyvovKCDTHJLQVQ3562-33-45 08:51:00 Test Item Value Reference Range Interpretation Comments Basophils (test code = 0.7 See_Comment [Aut omated message] The Basophils) system which ge nerated this result tra nsmitted reference range : <=1.0. The reference r robbie was not used to int erpret this result as normal/abnormal . [facility]landMwqdfdfJZXLLMWLTN1006-55-56 08:51:00 Test Item Value Reference Range Interpretation Comments Segs-Bands # (test code = Segs-Bands #) 3.1 1.5-8.1 [facility]landCptjyxwJUXENGCHGM6220-11-66 08:51:00 Test Item Value Reference Range Interpretation Comments Monocytes (test code = Monocytes) 9.7 2.0-12.0 [facility]landPxhflhyPTHAWMOPIJ1822-12-67 08:51:00 Test Item Value Reference Range Interpretation Comments Eosinophils (test code = 3.5 See_Comment [A utomated message] The Eosinophils) system which ge nerated this result tra nsmitted reference range : <=4.0. The reference r robbie was not used to int erpret this result as normal/abnormal . [facility]landFzinbteIPAXZPQKOC0353-35-69 08:51:00 Test Item Value Reference Range Interpretation Comments Lymphocytes (test code = Lymphocytes) 32.3 20.0-40.0 [facility]landZhizlitPTVVGVGKST2412-97-42 08:51:00 Test Item Value Reference Range Interpretation Comments Eosinophils # (test code 0.2 See_Comment [A utomated message] The = Eosinophils #) system whic h generated this result tra nsmitted reference range : <=0.5. The reference r robbie was not used to int erpret this result as normal/abnormal . [facility]landSgqvqokVOXHLUWQFA9685-03-90 08:51:00 Test Item Value Reference Range Interpretation Comments Lymphocytes # (test code = Lymphocytes 1.8 1.0-5.5 #) [facility]landXcdzyvjMVOJHORCHN1305-21-22 08:51:00 Test Item Value Reference Range Interpretation Comments MPV (test code = MPV) 7.6 7.4-10.4 [facility]landLflyduyNRFYMBPFDC6276-00-63 08:51:00 Test Item Value Reference Range Interpretation Comments MCH (test code = MCH) 30.0 pg 27.0-31.0 [facility]landVhnqkevNFEPVBAPFB5177-36-19 08:51:00 Test Item Value Reference Range Interpretation Comments MCV (test code = MCV) 89.1 80.0-98.0 [facility]landLgjakrmKQPQZPTPLF0272-26-14 08:51:00 Test Item Value Reference Range Interpretation Comments MCHC (test code = MCHC) 33.7 32.0-36.0 [facility]landYhbffhiUSHCWMDSRW2372-13-69 08:51:00 Test Item Value Reference Range Interpretation Comments RDW (test code = RDW) 13.8 11.5-14.5 [facility]landQoljqrsMJJWWMJUKO8793-66-47 08:51:00 Test Item Value Reference Range Interpretation Comments Platelet (test code = Platelet) 266 133-450 [facility]landOengcuaGKMATBXWIU2230-83-08 08:51:00 Test Item Value Reference Range Interpretation Comments Hgb (test code = Hgb) 12.1 12.0-16.0 [facility]landWbpxbqnGWNZVKXAUF7667-31-56 08:51:00 Test Item Value Reference Range Interpretation Comments Hct (test code = Hct) 35.8 36.0-48.0 [facility]landHrockpaIMVNCSZTJX3764-53-89 08:51:00 Test Item Value Reference Range Interpretation Comments WBC (test code = WBC) 5.7 3.7-10.4 [facility]landJfsqpixUGMWTDCHKF7130-33-52 08:51:00 Test Item Value Reference Range Interpretation Comments RBC (test code = RBC) 4.01 4.20-5.40 [facility]2016-08-29 06:54:00 Test Item Value Reference Range Interpretation Comments Bili Total (test code = Bili Total) 0.5 0.2-1.3 [facility]2016-08-29 06:54:00 Test Item Value Reference Range Interpretation Comments Alk Phos (test code = Alk Phos) 66 39-136 [facility]2016-08-29 06:54:00 Test Item Value Reference Range Interpretation Comments AST (test code = AST) 23 See_Comment [Auto mated message] The system which ge nerated this result transmit randolph reference range : <=37. The reference range was not used to interpr et this result as juan m l/abnormal. [facility]2016-08-29 06:54:00 Test Item Value Reference Range Interpretation Comments Albumin Lvl (test code = Albumin Lvl) 3.2 3.5-5.0 [facility]2016-08-29 06:54:00 Test Item Value Reference Range Interpretation Comments ALT (test code = ALT) 29 See_Comment [Auto mated message] The system which ge nerated this result transmit randolph reference range : <=65. The reference range was not used to interpr et this result as juan m l/abnormal. [facility]2016-08-29 06:54:00 Test Item Value Reference Range Interpretation Comments Total Protein (test code = Total 7.4 6.4-8.4 Protein) [facility]2016-08-29 06:54:00 Test Item Value Reference Range Interpretation Comments B/C Ratio (test code = B/C Ratio) 19 6-25 [facility]2016-08-29 06:54:00 Test Item Value Reference Range Interpretation Comments A/G Ratio (test code = A/G Ratio) 0.8 0.7-1.6 [facility]2016-08-29 06:54:00 Test Item Value Reference Range Interpretation Comments Globulin (test code = Globulin) 4.2 2.7-4.2 [facility]2016-08-29 06:54:00 Test Item Value Reference Range Interpretation Comments Bili Total (test code = Bili Total) 0.5 0.2-1.3 [facility]2016-08-29 06:54:00 Test Item Value Reference Range Interpretation Comments Alk Phos (test code = Alk Phos) 66 39-136 [facility]2016-08-29 06:54:00 Test Item Value Reference Range Interpretation Comments AST (test code = AST) 23 See_Comment [Auto mated message] The system which ge nerated this result transmit randolph reference range : <=37. The reference range was not used to interpr et this result as juan m l/abnormal. [facility]2016-08-29 06:54:00 Test Item Value Reference Range Interpretation Comments Albumin Lvl (test code = Albumin Lvl) 3.2 3.5-5.0 [facility]2016-08-29 06:54:00 Test Item Value Reference Range Interpretation Comments ALT (test code = ALT) 29 See_Comment [Auto mated message] The system which ge nerated this result transmit randolph reference range : <=65. The reference range was not used to interpr et this result as juan m l/abnormal. [facility]2016-08-29 06:54:00 Test Item Value Reference Range Interpretation Comments Total Protein (test code = Total 7.4 6.4-8.4 Protein) [facility]2016-08-29 06:54:00 Test Item Value Reference Range Interpretation Comments B/C Ratio (test code = B/C Ratio) 19 6-25 [facility]2016-08-29 06:54:00 Test Item Value Reference Range Interpretation Comments A/G Ratio (test code = A/G Ratio) 0.8 0.7-1.6 [facility]2016-08-29 06:54:00 Test Item Value Reference Range Interpretation Comments Globulin (test code = Globulin) 4.2 2.7-4.2 [facility] AXTXFAZ0116-[facility]-10 03:48:00 Test Item Value Reference Range Interpretation Comments Troponin-I (test code no gt See_Comment [Auto mated message] The = Troponin-I) system which g enerated this result transmit randolph reference range : <=0.40. The reference r robbie was not used to interpr et this result as juan m l/abnormal. [facility] MrwtyfaCEAJQTXIKP4745-78-65 03:48:00 Test Item Value Reference Range Interpretation Comments PTT (test code = PTT) 30.5 s 22.9-35.8 [facility] CmjqjetRHPHNQGJLB1563-21-01 03:48:00 Test Item Value Reference Range Interpretation Comments Etoh (%) (test code = Etoh (%)) no gt [facility] [id number] 03:48:00 Test Item Value Reference Range Interpretation Comments Ethanol Lvl (test code = Ethanol Lvl) [facility]t [facility] [id number] 03:48:00 Test Item Value Reference Range Interpretation Comments UA Renal Epi (test code = UA Renal Epi) [facility] [id number] 03:48:00 Test Item Value Reference Range Interpretation Comments UA Urobilinogen (test code = UA <=1.0 mg/dL 0.1-1.0 Urobilinogen) [facility] [id number] 03:48:00 Test Item Value Reference Range Interpretation Comments UA Color (test code = Yellow *NA*(04/21/16 UA Color) 10:48 PM) [facility] [id number] 03:48:00 Test Item Value Reference Range Interpretation Comments UA pH (test code = UA pH) 8.0 5.0-8.0 [facility] [id number] 03:48:00 Test Item Value Reference Range Interpretation Comments UA Spec Grav (test code = UA Spec Grav) 1.011 [facility] [id number] 03:48:00 Test Item Value Reference Range Interpretation Comments UA Turbidity (test code Slight *ABN*(04/21/16 = UA Turbidity) 10:48 PM) [facility] [id number] 03:48:00 Test Item Value Reference Range Interpretation Comments UA Glucose (test code = UA Negative mg/dL Glucose) [facility] AND [id number] 03:48:00 Test Item Value Reference Range Interpretation Comments UA Blood (test code = Negative (04/21/16 10:48 UA Blood) PM) [facility] AND [id number] 03:48:00 Test Item Value Reference Range Interpretation Comments UA Protein (test code = UA Protein) 30 mg/dL [facility] AND [id number] 03:48:00 Test Item Value Reference Range Interpretation Comments UA Bili (test code = Negative *NA*(04/21/16 UA Bili) 10:48 PM) [facility] AND [id number] 03:48:00 Test Item Value Reference Range Interpretation Comments UA Ketones (test code = UA Negative mg/dL Ketones) [facility] AND [id number] 03:48:00 Test Item Value Reference Range Interpretation Comments UA Nitrite (test code Negative (04/21/16 10:48 = UA Nitrite) PM) [facility] AND [id number] 03:48:00 Test Item Value Reference Range Interpretation Comments UA Leuk Est (test Negative (04/21/16 10:48 code = UA Leuk Est) PM) [facility] AND [id number] 03:48:00 Test Item Value Reference Range Interpretation Comments UA Amorph Chari (test code = Occasional /HPF UA Amorph Chari) [facility] AND [id number] 03:48:00 Test Item Value Reference Range Interpretation Comments UA WBC (test code = 1 See_Comment [Automa randolph message] The UA WBC) system which ge nerated this result transmit randolph reference range : <=5. The reference range was not used to interpr et this result as juan m l/abnormal. [facility] AND [id number] 03:48:00 Test Item Value Reference Range Interpretation Comments UA Mucus (test code = UA Mucus) Few /LPF [facility] AND [id number] 03:48:00 Test Item Value Reference Range Interpretation Comments UA Sq Epi (test code = UA Sq Occasional /LPF Epi) [facility] [id number] 03:48:00 Test Item Value Reference Range Interpretation Comments Troponin-I (test code no gt See_Comment [Auto mated message] The = Troponin-I) system which g enerated this result transmit randolph reference range : <=0.40. The reference r robbie was not used to interpr et this result as juan m l/abnormal. [id number] 03:48:00 Test Item Value Reference Range Interpretation Comments PTT (test code = PTT) 30.5 s 22.9-35.8 [id number] 03:48:00 Test Item Value Reference Range Interpretation Comments Etoh (%) (test code = Etoh (%)) no gt [id number] 03:48:00 Test Item Value Reference Range Interpretation Comments Ethanol Lvl (test code = Ethanol Lvl) no gt [facility] AND [id number] 03:48:00 Test Item Value Reference Range Interpretation Comments UA Renal Epi (test code = UA Renal Epi) RARE [facility] AND [id number] 03:48:00 Test Item Value Reference Range Interpretation Comments UA Urobilinogen (test code = UA <=1.0 mg/dL 0.1-1.0 Urobilinogen) [facility] AND [id number] 03:48:00 Test Item Value Reference Range Interpretation Comments UA Color (test code = Yellow *NA*(04/21/16 UA Color) 10:48 PM) [facility] AND [id number] 03:48:00 Test Item Value Reference Range Interpretation Comments UA pH (test code = UA pH) 8.0 5.0-8.0 [facility] AND [id number] 03:48:00 Test Item Value Reference Range Interpretation Comments UA Spec Grav (test code = UA Spec Grav) 1.011 [facility] AND [id number] 03:48:00 Test Item Value Reference Range Interpretation Comments UA Turbidity (test code Slight *ABN*(04/21/16 = UA Turbidity) 10:48 PM) [facility] AND [id number] 03:48:00 Test Item Value Reference Range Interpretation Comments UA Glucose (test code = UA Negative mg/dL Glucose) [facility] AND [id number] 03:48:00 Test Item Value Reference Range Interpretation Comments UA Blood (test code = Negative (04/21/16 10:48 UA Blood) PM) [facility] AND [id number] 03:48:00 Test Item Value Reference Range Interpretation Comments UA Protein (test code = UA Protein) 30 mg/dL [facility] AND [id number] 03:48:00 Test Item Value Reference Range Interpretation Comments UA Bili (test code = Negative *NA*(04/21/16 UA Bili) 10:48 PM) [facility] AND [id number] 03:48:00 Test Item Value Reference Range Interpretation Comments UA Ketones (test code = UA Negative mg/dL Ketones) [facility] AND [id number] 03:48:00 Test Item Value Reference Range Interpretation Comments UA Nitrite (test code Negative (04/21/16 10:48 = UA Nitrite) PM) [facility] AND [id number] 03:48:00 Test Item Value Reference Range Interpretation Comments UA Leuk Est (test Negative (04/21/16 10:48 code = UA Leuk Est) PM) [facility] AND [id number] 03:48:00 Test Item Value Reference Range Interpretation Comments UA Amorph Chari (test code = Occasional /HPF UA Amorph Chari) [facility] AND [id number] 03:48:00 Test Item Value Reference Range Interpretation Comments UA WBC (test code = 1 See_Comment [Automa randolph message] The UA WBC) system which ge nerated this result transmit randolph reference range : <=5. The reference range was not used to interpr et this result as juan m l/abnormal. [facility] AND [id number] 03:48:00 Test Item Value Reference Range Interpretation Comments UA Mucus (test code = UA Mucus) Few /LPF [facility] AND [id number] 03:48:00 Test Item Value Reference Range Interpretation Comments UA Sq Epi (test code = UA Sq Occasional /LPF Epi) [facility]
[2022-07-22 08:16] LABS: Absolute Lymphocytes (CBC) 0.6 K/uL (0.7-4.9); Lymphocytes % 4.7 % (15.3-44.8); MCV 92.7 fL (80-100); MPV 6.8 fL (7.6-11.3)
[2022-07-22 08:40] LABS: Albumin 3.3 g/dL (3.4-5.0); Bilirubin Total 0.6 mg/dL (0.2-1.0); Potassium 5.2 mmol/L (3.5-5.1); Protein, Total 8.2 g/dL (6.4-8.2)
[2022-07-22 08:42] LABS: Troponin High Sensitivity 160.1 pg/mL (<58.9)
--- NOTE | 2022-07-22 08:50 | RAD REPORT ---
EXAM DESCRIPTION: CT - Chest Abd Pelvis Wo Con - 07/22/2022 8:27 am CLINICAL HISTORY: Chest and abdomen pain. coughing up blood COMPARISON: Chest Abd Pelvis Wo Con dated 01/11/2018 TECHNIQUE: A limited noncontrast study was performed. All CT scans are performed using dose optimization technique as appropriate and may include automated exposure control or mA/KV adjustment according to patient size. FINDINGS: Diffuse COPD is present. There is quite extensive areas of lung consolidation seen particu larly involving the left lung posterior left upper lobe, lingula and left lower lobe. To a lesser ex tent there is involvement of the right lower lobe.Small bilateral pleural effusions, larger on the ri ght.No intrathoracic adenopathy.Very large hiatal hernia. The liver, spleen, pancreas, adrenal glands and kidneys are within normal limits. Gastrostomy tube. No bowel obstruction, free air, free fluid or abscess. There is a very large amount of retained stool seen rectosigmoid colon. Postsurgical changes are present sigmoid colon. Aortoiliac atherosclerosis. No pathologic lymphadenopathy in the abdomen or pelvis. Bilateral total hip arthroplasties. IMPRESSION: Extensive bilateral airspace lung opacities are present, greater on the left. This most likely represents pneumonia.Small bilateral pleural effusions. Moderate fecal retention throughout the colon.
[2022-07-22] MEDS ORDERED: AZITHROMYCIN 500 MG INJ IVPB ONE (09:53)
[2022-07-22] MEDS ORDERED: NA CHLORIDE 0.9% 250 ML ONE (09:53)
[2022-07-22] MEDS ORDERED: CEFTRIAXONE 1000 MG/VIAL ONE (09:53)
[2022-07-22] MEDS ORDERED: NA CHLORIDE 0.9% 50 ML IV ONE (09:53)
--- NOTE | 2022-07-22 09:56 | RAD REPORT ---
EXAM DESCRIPTION: CT - Angio Aorta For Dissection - 07/22/2022 9:17 am CLINICAL HISTORY: Chest pain radiating to the back. dissection COMPARISON: No comparisons TECHNIQUE: CT angiography of the aorta was performed with MIPs. All CT scans are performed using dose optimization technique as appropriate and may include automated exposure control or mA/KV adjustment according to patient size. FINDINGS: A left aortic arch is present with normal branching pattern of the great vessels.No acute aortic finding is seen such as aneurysm, penetrating ulcer or dissection. Heavy atherosclerosis is s een involving the abdominal aorta and visceral artery origins. No evidence of pulmonary embolism. There is a large hiatal hernia present. The majority of the stomach is intrathoracic. Large areas of airspace consolidation seen, greater on the left. Small bilateral pleural effusions ar e present. The liver demonstrates no focal mass or biliary dilatation.Gastrostomy tube.The spleen, pancreas, adr enal glands and right kidney are within normal limits for arterial phase imaging.Benign left renal cy sts. No bowel obstruction, free fluid or abscess.There is a large amount stool retained in the rectosigmoi d colon.No pathologic enlarged lymphadenopathy identified. Bilateral total hip arthroplasty. IMPRESSION: No acute aortic finding is demonstrated.Heavy atherosclerosis of the abdominal aorta is present without acute finding. Extensive bilateral pulmonary opacities, greater on the left, favoring pneumonia. Large hiatal hernia with the majority of the stomach intrathoracic.
[2022-07-22 10:01] LABS: Protime INR 1.59
--- NOTE | 2022-07-22 10:24 | RAD REPORT ---
EXAM DESCRIPTION: RAD - Chest Single View - 07/22/2022 8:53 am CLINICAL HISTORY: COUGH Chest pain. COMPARISON: Abdomen 1 View (KUB) dated 04/22/2022; Chest Single View dated 04/21/2022; Chest Single Vi ew dated 04/21/2022; Chest Single View dated 02/03/2022 FINDINGS: Portable technique limits examination quality. Extensive bilateral pulmonary opacities are present, greater on the left, likely representing bilater al pneumonia. The heart is mildly enlarged. Large hiatal hernia.
[2022-07-22] MEDS ORDERED: HYDROCODONE/APAP 5/325 MG TAB PO PRN (12:21)
[2022-07-22] MEDS ORDERED: ACETAMINOPHEN 325 MG TABLET PO PRN (12:22)
[2022-07-22] MEDS ORDERED: ONDANSETRON 4 MG/2 ML VIAL IV PRN (12:38)
[2022-07-22 12:48] VITALS: BMI 19.8
--- NOTE | 2022-07-22 12:49 | P.HP ---
Certification for Inpatient Patient admitted to: Inpatient With expected LOS: >2 Midnights Patient will require the following post-hospital care: None Practitioner: I am a practitioner with admitting privileges, knowledge of patient current condition, hospital course, and medical plan of care. Services: Services provided to patient in accordance with Admission requirements found in Title 42 Section 412.3 of the Code of Federal Regulations Patient History Date of Service: 07/22/22 Reason for admission: Hemoptysis, Chest pain History of Present Illness: Acute patient is an 87-year-old female with a past medical history significant for A. fib, GERD, COPD, , CAD, OA, hypothyroidism, OAB, depression, anxiety disorder who presents with complaint of hemoptysis onset this morning. Patient also reports chest pain located in the left chest area, rated as 5/10 in severity and described as aching in quality. Patient reports associated signs a nd symptoms of dizziness, shortness of breath and headache. Patient denies any other signs and symptoms. Symptoms are aggravated or relieved by nothing. Patient decided to present to the hospital for medical evaluation. Allergies codeine Allergy (Mild, Verified 01/05/21 16:49) upset stomach nitrofurantoin [From Macrobid] Allergy (Verified 01/05/21 16:49) Shortness of breath Penicillins Allergy (Verified 01/05/21 16:49) Hives Sulfa (Sulfonamide Antibiotics) Allergy (Verified 01/05/21 16:49) Hives/pulmonary fibrosis latex adhesives Allergy (Uncoded 01/05/21 16:49) "skin comes off" Home Medications: Levothyroxine [Synthroid*] 1 tab PO DAILY #30 tab 07/12/16 Mirabegron [Myrbetriq] 50 mg PO DAILY 01/05/21 Apixaban [Eliquis *] 2.5 mg PO BID #60 tablet 02/04/22 Amiodarone HCl [Cordarone*] 1 tab DAILY 04/22/22 Fluoxetine HCl 1 tab DAILY 04/22/22 Omeprazole [Prilosec] 40 mg DAILY 04/22/22 Spironolactone 1 tab DAILY 04/22/22 Pantoprazole Sodium [Protonix] 40 mg PO BID 30 Days #60 tab 04/24/22 - Past Medical/Surgical History Has patient received pneumonia vaccine in the past: No Diabetic: No -: Hypertension -: Coronary artery disease -: Chronic renal disease -: Orthostatics hypotension -: Osteoporosis -: Osteoarthritis -: GERD -: Depression with anxiety -: Hypothyroidism -: GERD surgery -: History of chest tube placements x3 -: History of heart catheterization -: Cholecystectomy -: Hysterectomy -: Right knee surgery -: R hip surgery Psychosocial/ Personal History: She is , she has 3 children, she lives at home, 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 - Family History Mother -: Cancer Notes: PT states, " She from "Old Age", she was 89." Father -: Stroke Notes: from abdominal aneurysm - Social History Smoking Status: Former smoker Alcohol use: No CD- Drugs: No Caffeine use: Yes Place of Residence: Home Review of Systems General: Unremarkable Eyes: Unremarkable ENT: Unremarkable Respiratory: Cough, Shortness of Breath, Hemoptysis Cardiovascular: Chest Pain Gastrointestinal: Unremarkable Genitourinary: Unremarkable Musculoskeletal: Unremarkable Integumentary: Unremarkable Neurological: Other (Dizziness, HOOVER) Lymphatics: Unremarkable Physical Examination - Physical Exam General: Alert, Oriented x3, Cooperative, Mild distress HEENT: Atraumatic, PERRLA, Mucous membr. moist/pink, EOMI, Sclerae nonicteric Neck: Supple, 2+ carotid pulse no bruit, No LAD, Without JVD or thyroid abnormality Respiratory: Diminished Cardiovascular: No edema, Normal S1 S2 Capillary refill: <2 Seconds Gastrointestinal: Normal bowel sounds, No tenderness Musculoskeletal: No swelling, No contractures, No erythema, No tenderness Integumentary: No rashes, No breakdown, No significant lesion, No tenderness/swelling, No erythema Neurological: Normal speech, Normal tone, Normal affect Lymphatics: No axilla or inguinal lymphadenopathy - Studies Laboratory Data (last 24 hrs) 07/22/22 09:43: PT 17.5 H, INR 1.59, APTT 31.2 07/22/22 08:07: Sodium 136, Potassium 5.2 H, BUN 23 H, Creatinine 1.37 H, Glucose 205 H, Total Bilirubin 0.6, AST 20, ALT 30, Alkaline Phosphatase 57 07/22/22 08:07: WBC 13.20 H, Hgb 12.0, Hct 37.0, Plt Count 367 Assessment and Plan - Plan --Hemoptysis. Unclear etiology. Could be secondary to pneumonia. Pulmonology consulted. H&H stable. We will continue to monitor hemoglobin. We will await further recommendation from wound nurse. -- Bilateral pneumonia. Noted on imaging. Patient placed on antibiotics and O2 therapy prn. Further management per wound nurse. --Acute on chronic COPD exacerbation. Continue steroids, O2 therapy and neb treatment with albuterol\\Atrovent. -- Chest pain. To rule out ACS. We will trend serial troponins--currently elevated. Telemetry to monitor for any significant arrhythmia. Cardiology consulted. Echocardiogram pending to assess cardiac functions and structures. Will await further recommendations. -- Atrial fibrillation. Patient currently experiencing hemoptysis. Will hold off for Eliquis. Continue amiodarone. Telemetry to monitor for any malignant arrhythmia. Further management per assembler deck and hull. -- GERD. Continue Protonix. --Hx of CAD. Continue Eliquis when appropriate. --Depression\\Anxiety disorder. Continue home medication. --RENETTA on CKD 3 A. Nephrology consulted. Will await further recommendations. --Elevated BNP. No history of CHF noted. Echocardiogram pending to assess LV\\valvular function and wall motion. Continue diuresis with Lasix. Will reassess BNP in the morning. Further management per assembler deck and hull. --Hyperkalemia. Replete BMP pending. Treatment based on results. --OA. Will manage pain with current pain medication regimen --OAB. Continue home medication. --Hypothyroidism. Continue home medication. --DVT prophylaxis with SCDs. Discharge Plan: Home Plan to discharge in: Greater than 2 days - Advance Directives Does patient have a Living Will: No Does patient have a Durable POA for Healthcare: No - Code Status/Comfort Care Code Status Assessed: Yes Physician Review: Patient Assessed, Agree with Above Assessment and Plan Critical Care: No
[2022-07-22] MEDS ORDERED: ALBUTEROL 2.5 MG/3 ML NEB SOL ONE ×2 (12:54→20:34)
[2022-07-22] MEDS ORDERED: IPRATROPIUM BROM 0.5MG/2.5ML ONE ×2 (12:54→20:34)
[2022-07-22 13:34] LABS: SARS-CoV-2 Antigen Rapid Res Negative (Negative)
[2022-07-22] MEDS: ALBUTEROL 2.5 MG/3 ML NEB SOL NEB SCH ×2 (14:00→20:40)
[2022-07-22] MEDS: IPRATROPIUM BROM 0.5MG/2.5ML NEB SCH ×2 (14:00→20:40)
[2022-07-22] MEDS ORDERED: VANCOMYCIN 1.25 GM in NA CHLORIDE 0.9% 250 ML IVPB ONE (14:00)
[2022-07-22 14:21] LABS: Absolute Lymphocytes (CBC) 0.7 K/uL (0.7-4.9); Hematocrit 33.8 % (36.0-45.0); MCV 93.3 fL (80-100); MPV 7.2 fL (7.6-11.3); RBC Red Blood Cell Count 3.62 M/uL (3.86-4.86)
[2022-07-22 14:26] LABS: Potassium 5.5 mmol/L (3.5-5.1)
[2022-07-22 14:36] LABS: Phosphorus 3.2 mg/dL (2.5-4.9); Thyroid Stimulating Hormone 1.6 uIU/mL (0.360-3.740)
[2022-07-22] MEDS ORDERED: SOD POLYSTYREN SUL 15 GM/60 ML UCUP PO ONE (15:30)
[2022-07-22 15:36] LABS: Blood Morphology Comment NOT SEEN (NOT SEEN); Platelet Estimate ADEQ
[2022-07-22] MEDS ORDERED: METHYLPREDNISOLONE 40 MG INJ ONE (15:51)
[2022-07-22] MEDS: METHYLPREDNISOLONE 40 MG INJ IV SCH (16:09)
[2022-07-22 20:48] LABS: Potassium 5.5 mmol/L (3.5-5.1)
--- NOTE | 2022-07-22 21:48 | P.CNS ---
Date of Consult: 07/22/22 Reason for Consult: RENETTA/ CKD Requesting Physician: Alan Santos Chief Complaint: Hemoptysis, Chest pain History of Present Illness: 87-year-old female with a past medical history significant for A. fib, GERD, COPD, , CAD, OA, hypothyroidism, OAB, depression, anxiety disorder who presents with complaint of hemoptysis onset this morning. Patient also reports chest pain located in the left chest area, rated as 5/10 in severity and described as aching in quality. Patient reports associated signs and symptoms of dizziness, shortness of breath and headache. Patient denies any other signs and symptoms. Symptoms are aggravated or relieved by nothing. Patient decided to present to the hospital for medical evaluation. She woke up around 5pm this morning with chills and coughing up blood. She reports feeling fine yesterday and walking in the yard. Allergies codeine Allergy (Mild, Verified 01/05/21 16:49) upset stomach nitrofurantoin [From Macrobid] Allergy (Verified 01/05/21 16:49) Shortness of breath Penicillins Allergy (Verified 01/05/21 16:49) Hives Sulfa (Sulfonamide Antibiotics) Allergy (Verified 01/05/21 16:49) Hives/pulmonary fibrosis latex adhesives Allergy (Uncoded 01/05/21 16:49) "skin comes off" Home medications list reviewed: Yes Home Medications: Levothyroxine [Synthroid*] 1 tab PO DAILY #30 tab 07/12/16 Mirabegron [Myrbetriq] 50 mg PO DAILY 01/05/21 Apixaban [Eliquis *] 2.5 mg PO BID #60 tablet 02/04/22 Amiodarone HCl [Cordarone*] 1 tab DAILY 04/22/22 Fluoxetine HCl 1 tab DAILY 04/22/22 Omeprazole [Prilosec] 40 mg DAILY 04/22/22 Spironolactone 1 tab DAILY 04/22/22 Pantoprazole Sodium [Protonix] 40 mg PO BID 30 Days #60 tab 04/24/22 - Past Medical/Surgical History Diabetic: No -: Hypertension -: Coronary artery disease -: Chronic renal disease (Dr. 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 - Family History Mother Medical History: Cancer Notes: PT states, " She from "Old Age", she was 89." Father Medical History: Stroke Notes: from abdominal aneurysm - Social History Alcohol use: No CD- Drugs: No Caffeine use: Yes Place of Residence: Home Review of Systems 10-point ROS is otherwise unremarkable General: Chills, Weakness, Malaise Respiratory: Cough, Hemoptysis Physical Examination Temp Pulse Resp BP Pulse Ox 98.9 F 62 110/49 L 95 07/22/22 16:00 07/22/22 16:00 07/22/22 16:00 07/22/22 16:00 General: In no apparent distress, Oriented x3, Cooperative HEENT: Atraumatic Neck: Supple Respiratory: Diminished Cardiovascular: No edema, Regular rate/rhythm Gastrointestinal: Soft and benign, Non-distended Musculoskeletal: No clubbing, No contractures Integumentary: No rashes, No cyanosis Neurological: Normal speech Laboratory Data (last 24 hrs) 07/22/22 09:43: PT 17.5 H, INR 1.59, APTT 31.2 07/22/22 08:07: Sodium 136, Potassium 5.2 H, BUN 23 H, Creatinine 1.37 H, Glucose 205 H, Total Bilirubin 0.6, AST 20, ALT 30, Alkaline Phosphatase 57 07/22/22 08:07: WBC 13.20 H, Hgb 12.0, Hct 37.0, Plt Count 367 Imagings Data: [facility] EXAM DESCRIPTION: RAD - Chest Single View - 07/22/2022 8:53 am CLINICAL HISTORY: COUGH Chest pain. COMPARISON: Abdomen 1 View (KUB) dated 04/22/2022; Chest Single View dated 04/21/2022; Chest Single View dated 04/21/2022; Chest Single View dated 02/03/2022 FINDINGS: Portable technique limits examination quality. Extensive bilateral pulmonary opacities are present, greater on the left [facility] EXAM DESCRIPTION: CT - Chest Abd Pelvis Wo Con - 07/22/2022 8:27 am CLINICAL HISTORY: Chest and abdomen pain. coughing up blood COMPARISON: Chest Abd Pelvis Wo Con dated 01/11/2018 TECHNIQUE: A limited noncontrast study was performed. All CT scans are performed using dose optimization technique as appropriate and may include automated exposure control or mA/KV adjustment according to patient size. FINDINGS: Diffuse COPD is present. There is quite extensive areas of lung consolidation seen particularly involving the left lung posterior left upper lobe, lingula and left lower lobe. To a lesser extent there is involvement of the right lower lobe.Small bilateral pleural effusions, larger on the right.No intrathoracic adenopathy.Very large hiatal hernia. The liver, spleen, pancreas, adrenal glands and kidneys are within normal limits. Gastrostomy tube. No bowel obstruction, free air, free fluid or abscess. There is a very large amount of retained stool seen rectosigmoid colon. Postsurgical changes are present sigmoid colon. Aortoiliac atherosclerosis. No pathologic lymphadenopathy in the abdomen or pelvis. Bilateral total hip arthroplasties. IMPRESSION: Extensive bilateral airspace lung opacities are present, greater on the left. This most likely represents pneumonia.Small bilateral pleural effusions. Moderate fecal retention throughout the colon. [facility] EXAM DESCRIPTION: CT - Angio Aorta For Dissection - 07/22/2022 9:17 am CLINICAL HISTORY: Chest pain radiating to the back. dissection COMPARISON: No comparisons TECHNIQUE: CT angiography of the aorta was performed with MIPs. All CT scans are performed using dose optimization technique as appropriate and may include automated exposure control or mA/KV adjustment according to patient size. FINDINGS: A left aortic arch is present with normal branching pattern of the great vessels.No acute aortic finding is seen such as aneurysm, penetrating ulcer or dissection. Heavy atherosclerosis is seen involving the abdominal aorta and visceral artery origins. No evidence of pulmonary embolism. There is a large hiatal hernia present. The majority of the stomach is intrathoracic. Large areas of airspace consolidation seen, greater on the left. Small bilateral pleural effusions are present. The liver demonstrates no focal mass or biliary dilatation.Gastrostomy tube.The spleen, pancreas, adrenal glands and right kidney are within normal limits for arterial phase imaging.Benign left renal cysts. No bowel obstruction, free fluid or abscess.There is a large amount stool retained in the rectosigmoid colon.No pathologic enlarged lymphadenopathy identified. Bilateral total hip arthroplasty. IMPRESSION: No acute aortic finding is demonstrated.Heavy atherosclerosis of the abdominal aorta is present without acute finding. Extensive bilateral pulmonary opacities, greater on the left, favoring pneumonia. Large hiatal hernia with the majority of the stomach intrathoracic. Conclusions/Impression: CKD IIIb -No NSAIDs Hyponatremia -Lasix daily Hyperkalemia -Agree with kayexalate -Hold spironolactone HTN with CKD -Hold antihypertensives at this time Pulmonary HTN Moderate TR -Caution with excess diuresis IFG -No sugar diet Anemia in chronic illness -Monitor H&H Atherosclerosis of the aorta -Consider statin BL PNA with hemoptysis -Continue abx -Continue Oxygen Thank you kindly for the consultation.
[2022-07-22] MEDS: MAGNESIUM OXIDE 400 MG TAB PO SCH (22:00)
[2022-07-22] MEDS: CEFEPIME 1 GM in NA CHLORIDE 0.9% 100 ML IV SCH (22:00)
[2022-07-22] MEDS ORDERED: MAGNESIUM OXIDE 400 MG TAB ONE (22:07)
[2022-07-22] MEDS ORDERED: NA CHLORIDE 0.9% 100 ML IV ONE (22:07)
[2022-07-22] MEDS ORDERED: PANTOPRAZOLE 40MG TABLET PO ONE (22:07)
[2022-07-22] MEDS ORDERED: CEFEPIME 1 GM/VIAL ONE (22:08)
[2022-07-22] MEDS: PANTOPRAZOLE 40MG TABLET PO SCH (22:20)
[2022-07-23] MEDS ORDERED: ALBUTEROL 2.5 MG/3 ML NEB SOL ONE ×3 (01:47→13:47)
[2022-07-23] MEDS ORDERED: IPRATROPIUM BROM 0.5MG/2.5ML ONE ×3 (01:47→13:47)
[2022-07-23] MEDS: IPRATROPIUM BROM 0.5MG/2.5ML NEB SCH ×4 (01:55→19:35)
[2022-07-23] MEDS: ALBUTEROL 2.5 MG/3 ML NEB SOL NEB SCH ×4 (01:55→19:35)
[2022-07-23] MEDS ORDERED: METHYLPREDNISOLONE 40 MG INJ ONE (02:34)
[2022-07-23] MEDS: METHYLPREDNISOLONE 40 MG INJ IV SCH (02:36)
[2022-07-23 03:07] LABS: Hematocrit 31.1 % (36.0-45.0); Lymphocytes % 6.2 % (15.3-44.8); MCV 93.2 fL (80-100); MPV 7.5 fL (7.6-11.3); RBC Red Blood Cell Count 3.33 M/uL (3.86-4.86)
[2022-07-23 03:28] LABS: Albumin 2.9 g/dL (3.4-5.0); Bilirubin Total 0.5 mg/dL (0.2-1.0); Phosphorus 3.2 mg/dL (2.5-4.9); Potassium 5.2 mmol/L (3.5-5.1); Protein, Total 7.6 g/dL (6.4-8.2); Uric Acid 5.3 mg/dL (2.6-6.0)
[2022-07-23] MEDS: LEVOTHYROXINE SOD 0.075 MG TAB PO SCH (05:54)
[2022-07-23] MEDS ORDERED: PNEUMOCOCCAL VACCINE 0.5 ML IMVAC ONE (08:00)
--- NOTE | 2022-07-23 08:18 | P.CNS ---
Date of Consult: 07/23/22 Reason for Consult: Hemoptysis Chief Complaint: Hemoptysis, Chest pain History of Present Illness: Patient is 87 years of age admitted to the hospital complaining of sudden onset of hemoptysis with some chest pain admitted with a diagnosis of the left lower l obe pneumonia apparently she has been sick for about 4 days Patient has a history of A. fib on anticoagulation Allergies codeine Allergy (Mild, Verified 01/05/21 16:49) upset stomach nitrofurantoin [From Macrobid] Allergy (Verified 01/05/21 16:49) Shortness of breath Penicillins Allergy (Verified 01/05/21 16:49) Hives Sulfa (Sulfonamide Antibiotics) Allergy (Verified 01/05/21 16:49) Hives/pulmonary fibrosis latex adhesives Allergy (Uncoded 01/05/21 16:49) "skin comes off" Home Medications: Levothyroxine [Synthroid*] 1 tab PO DAILY #30 tab 07/12/16 Mirabegron [Myrbetriq] 50 mg PO DAILY 01/05/21 Apixaban [Eliquis *] 2.5 mg PO BID #60 tablet 02/04/22 Amiodarone HCl [Cordarone*] 1 tab DAILY 04/22/22 Fluoxetine HCl 1 tab DAILY 04/22/22 Omeprazole [Prilosec] 40 mg DAILY 04/22/22 Spironolactone 1 tab DAILY 04/22/22 Pantoprazole Sodium [Protonix] 40 mg PO BID 30 Days #60 tab 04/24/22 - Past Medical/Surgical History Diabetic: No -: Hypertension -: Coronary artery disease -: Chronic renal disease (Dr. 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 - Family History Mother Medical History: Cancer Notes: PT states, " She from "Old Age", she was 89." Father Medical History: Stroke Notes: from abdominal aneurysm - Social History Alcohol use: No CD- Drugs: No Caffeine use: Yes Place of Residence: Home Review of Systems 10-point ROS is otherwise unremarkable General: Weakness Respiratory: Cough, Shortness of Breath, Hemoptysis Physical Examination Temp Pulse Resp BP Pulse Ox 98 F 70 18 117/55 L 96 07/23/22 04:00 07/23/22 04:00 07/23/22 04:00 07/23/22 04:00 07/23/22 04:00 General: Alert, In no apparent distress, Oriented x3 Respiratory: Crackles/rales (Crackles and rhonchi on the left side) Cardiovascular: No edema, Normal pulses, Regular rate/rhythm Gastrointestinal: Normal bowel sounds Laboratory Data (last 24 hrs) 07/22/22 09:43: PT 17.5 H, INR 1.59, APTT 31.2 07/22/22 08:07: Sodium 136, Potassium 5.2 H, BUN 23 H, Creatinine 1.37 H, Glucose 205 H, Total Bilirubin 0.6, AST 20, ALT 30, Alkaline Phosphatase 57 07/22/22 08:07: WBC 13.20 H, Hgb 12.0, Hct 37.0, Plt Count 367 - Problems (1) Pneumonia Current Visit: Yes Status: Acute Plan: Patient is 87 years of age admitted with acute left lower lobe pneumonia white count is mildly elevated mild chronic renal failure mild hyperkalemia patient's vital signs are stable blood cultures pending sputum cultures ordered CT scan reviewed patient has bilateral consolidation left greater than right hemoptysis probably secondary to pneumonia DC steroids continue with antibiotic medications labs reviewed Qualifiers: Pneumonia type: due to unspecified organism Laterality: bilateral
[2022-07-23] MEDS: CEFEPIME 1 GM in NA CHLORIDE 0.9% 100 ML IV SCH ×2 (09:00→20:23)
[2022-07-23] MEDS: AMIODARONE HCL 200 MG TAB PO SCH (09:00)
[2022-07-23] MEDS ORDERED: FLUOXETINE 10 MG CAP PO SCH ×2 (09:00→21:00)
[2022-07-23] MEDS: HOME MED 1 EA UNK (Mirabegron [Myrbetriq] 50 MG Tab.Er.24h) PO SCH (09:00)
[2022-07-23] MEDS: FUROSEMIDE 20 MG/ 2ML VIAL IV SCH (09:00)
[2022-07-23] MEDS: PANTOPRAZOLE 40MG TABLET PO SCH ×2 (09:00→20:23)
[2022-07-23] MEDS ORDERED: SPIRONOLACTONE 25 MG TABLET PO SCH (09:00)
[2022-07-23] MEDS: DOCUSATE NA 100 MG CAP PO SCH ×2 (09:00→20:24)
[2022-07-23] MEDS ORDERED: FUROSEMIDE 20 MG/ 2ML VIAL ONE (09:54)
[2022-07-23] MEDS ORDERED: NA CHLORIDE 0.9% 100 ML IV ONE (09:54)
[2022-07-23] MEDS ORDERED: AMIODARONE HCL 200 MG TAB ONE (09:54)
[2022-07-23] MEDS ORDERED: CEFEPIME 1 GM/VIAL ONE (09:54)
[2022-07-23] MEDS ORDERED: PANTOPRAZOLE 40MG TABLET PO ONE (10:26)
--- NOTE | 2022-07-23 12:54 | CON ---
Date of Consultation: 07/22/2022 Reason For Consultation: Hemoptysis, pleuritic chest pain, and atrial fibrillation. History Of Present Illness: Ms. Gray is 87. Has had a history of chronic atrial fibrillation for wh ich she takes amiodarone and Eliquis. She has a history of hypothyroidism, gastroesophageal reflux d isease, and hypertension. She came in with hemoptysis that is significant, pleuritic chest pain. est x-ray showed a possible pneumonia, troponin of 160, atrial fibrillation and rate of 62, creatinin e 1.38, hemoglobin was 10.9, BNP was 1618. Denied PND, orthopnea, pedal edema, palpitations, or sync ope. Past Medical History: As stated above. Allergies: SHE IS ALLERGIC TO PENICILLIN, SULFA, AND CODEINE. Review of Systems: Negative. Social History: Negative. Family History: Negative. Medications: Include amiodarone, Eliquis, Synthroid, Aldactone, Prilosec, and Protonix. Physical Examination: General: She appeared her stated age. Vital Signs: She was in atrial fibrillation at a rate of 62, afebrile. No acute distress. HEENT: Negative. Neck: Supple with no bruit. Chest: Clear to auscultation and percussion. Cardiac: Revealed atrial fibrillation. Abdomen: Benign. Extremities: Revealed no clubbing, cyanosis, or edema. Diagnostic Data: As stated earlier. Impression And Plan: 1.Hemoptysis, pleuritic chest pain possibly secondary to pneumonia. 2.Chronic atrial fibrillation with hemoptysis. We will need to hold the Eliquis. Continue amiodaro ne. 3.Hypothyroidism. 4.Hypertension, well controlled. 5.Gastroesophageal reflux disease, well controlled. 6.Elevated troponin and BNP secondary to demand ischemia. I will continue her regimen except for ho lding Eliquis, obtain a 2D echocardiogram, obtain Pulmonary consultation. No need for heart catheter ization at this point. She will probably need to put her Eliquis down the road. We will consider fu rther Watchman procedure later. SONYA/MODL Voice ID: [id number] Report ID: [id number]
--- NOTE | 2022-07-23 13:54 | PN ---
Date of Progress Note: 07/23/2022 Ms. Gray came in with hemoptysis, atrial fibrillation that is chronic, chest pain that is pleuritic, pneumonia. We held her Eliquis because of her hemoptysis. Pulmonary consultation is pending. Echoc ardiogram is pending. We will eventually need to keep her off the Eliquis. Continue her amiodarone. We will discuss using a Watchman procedure down the road for her chronic atrial fibrillation with t gabby family, but this will have to wait at least few days. Her troponin is trending down. BNP is slig htly elevated. We will see what her echo shows. We have no plan to do a heart catheterization on he r at this point considering her age, her functional status, and her hemoptysis. We will consider annamarie Sparks later. She can go home after that was done whenever it is okay with Dr. Santos. We will see her in the office as an outpatient. SONYA/LIDIA Voice ID: [id number] Report ID: [id number]
--- NOTE | 2022-07-23 14:37 | ECHO ---
HEIGHT: 5 ft 2 in WEIGHT: 108 lb 0.424 oz DATE OF STUDY: 07/23/[address]: Uvaldo Arthur 2-DIMENSIONAL: YES M.MODE: YES DOPPLER: YES COLOR FLOW: YES TDS: PORTABLE: YES DEFINITY: BUBBLE STUDY: DIAGNOSIS: CONGESTIVE HEART FAILURE CARDIAC HISTORY: CATHERIZATION: SURGERY: PROSTHETIC VALVE: PACEMAKER: MEASUREMENTS (cm) DIASTOLIC (NORMALS) SYSTOLIC (NORMALS) IVSd 1.2 (0.6-1.2) LA Diam 4.3 (1.9-4.0) LVEF 64% LVIDd 3.7 (3.5-5.7) LVIDs 2.4 (2.0-3.5) %FS 34% LVPWd 1.1 (0.6-1.2) Ao Diam 2.4 (2.0-3.7) 2 DIMENSIONAL ASSESSMENT: RIGHT ATRIUM: NORMAL LEFT ATRIUM: ENLARGED RIGHT VENTRICLE: NORMAL LEFT VENTRICLE: NORMAL TRICUSPID VALVE: MILD TRICUSPID REGURGITATION MITRAL VALVE: MILD MITRAL REGURGITATION PULMONIC VALVE: MILD PULMONIC INSUFFICIENCY AORTIC VALVE: CALCIFIED AORTIC VALVE PERICARDIAL EFFUSION: NONE AORTIC ROOT: NORMAL LEFT VENTRICULAR WALL MOTION: NORMAL DOPPLER/COLOR FLOW: SEE BELOW COMMENTS: 1. NORMAL LEFT VENTRICULAR EJECTION FRACTION 55-60% WITH NORMAL WALL MOTION 2. CALCIFIED AORTIC VALVE WITH MODERATE AORTIC STENOSIS AND MILD AORTIC INSUFFICIENCY 3. MODERATE DIASTOLIC DYSFUNCTION 4. MILD TRICUSPID REGURGITATION, MITRAL REGURGITATION, PULMONIC INSUFFICIENCY TECHNOLOGIST: GALLO PALACIOS
--- NOTE | 2022-07-23 15:49 | ER ---
Nurse's Notes [facility] Name: Veena Gray Age: 87 yrs Sex: Female : 1935 Arrival Date: 07/22/2022 Time: 06:47 Bed 25 Private MD: Diagnosis: Other pneumonia, unspecified organism;Acute respiratory failure with hypoxia;Subsequent non-ST elevation (NSTEMI) myocardial infarction;Sepsis without end organ dysfunction Presentation: 07/22 06:52 Chief complaint: Patient states: I have been coughing up blood since 1 AM this morning. aa9 Coronavirus screen: Vaccine status: Patient reports receiving the 2nd dose of the covid vaccine. Ebola Screen: No symptoms or risks identified at this time. Risk Assessment: Do you want to hurt yourself or someone else? Patient reports no desire to harm self or others. Onset of symptoms was July 22, 2022. 06:52 Method Of Arrival: EMS: [facility] aa9 06:52 Acuity: RITIKA 2 aa9 06:52 Chief complaint: EMS states: called out for a 87 F reporting to be coughing up blood aa9 since 1 AM, pt sat around 80's, pt refused supplemental O2 en route pt states,:It makes me nauseous." Pt presented with low grade fever at 99.8 F, hypertensive, and denies chest pain at this time. 08:19 Initial Sepsis Screen: Does the patient meet any 2 criteria? RR > 20 per min. No. ap3 Patient's initial sepsis screen is negative. Does the patient have a suspected source of infection? Yes: Productive cough/pneumonia. Triage Assessment: 06:59 General: Appears uncomfortable, slender, Behavior is calm, cooperative, appropriate for aa9 age. Pain: Denies pain. EENT: No signs and/or symptoms were reported regarding the EENT system. Neuro: Level of Consciousness is awake, alert, obeys commands, Oriented to person, place, time, situation. Cardiovascular: Patient's skin is warm and dry. Respiratory: Airway is patent Respiratory effort is even, Respiratory pattern is tachypnea Sputum is thick, bloody white. GI: PEG tube in place. : No signs and/or symptoms were reported regarding the genitourinary system. Derm: Skin is intact, with poor turgor Skin is pale. Musculoskeletal: No signs and/or symptoms reported regarding the musculoskeletal system. Historical: - Allergies: 06:58 PENICILLINS; aa9 06:58 Sulfa (Sulfonamide Antibiotics); aa9 06:58 Codeine; aa9 - PMHx: 06:58 a fib; GERD; hiatal hernia; kidney disease; Myocardial infarction; Vertigo; aa9 - PSHx: 06:58 Cholecystectomy; hysterectomy; Iliac stent; aa9 - Immunization history:: Client reports receiving the 2nd dose of the Covid vaccine. - Social history:: Smoking status: Patient denies any tobacco usage or history of. - Family history:: not pertinent. Screenin:00 Abuse screen: Denies threats or abuse. Denies injuries from another. Tuberculosis aa9 screening: No symptoms or risk factors identified. 12:51 Nutritional screening: No deficits noted. Fall Risk Fall in past 12 months (25 points). ap3 Secondary diagnosis (15 points) IV access (20 points). Ambulatory Aid- None/Bed Rest/Nurse Assist (0 pts). Gait- Weak (10 pts.). Mental Status- Oriented to own ability (0 pts). Assessment: 06:48 Reassessment: pt refused non re breather O2, pt states, "I'm breathing just fine.". aa9 07:45 Reassessment: patient assisted to bedside commode. patient was able to have a soft ap3 formed bowel movement. Vital Signs: 06:52 BP 148 / 102; Pulse 84; Resp 34 S; Pulse Ox 90% on 2 lpm NC; Weight 48.99 kg (R); aa9 Height 5 ft. 2 in. (157.48 cm) (R); 06:58 Temp 99.9(O); aa9 08:18 Pulse 85; Pulse Ox 93% on 2 lpm NC; ap3 09:54 BP 113 / 50; Pulse 73; Pulse Ox 100% on 2 lpm NC; ap3 12:01 BP 103 / 63; Pulse 62; Pulse Ox 100% on R/A; ap3 12:01 Resp 23; ap3 06:52 Body Mass Index 19.75 (48.99 kg, 157.48 cm) aa9 ED Course: 06:47 Patient arrived in ED. ds4 06:50 Paco Evans MD is Attending Physician. rt 06:57 Triage completed. aa9 06:59 Arm band placed on. aa9 07:06 Attending Physician role handed off by Paco Evans MD ms3 07:06 Jerel Cope DO is Attending Physician. ms3 07:11 Lis Patricia, RACH is Primary Nurse. ap3 08:11 Initial lab(s) drawn, by me, sent to lab. Inserted saline lock: 22 gauge in right jd3 antecubital area, using aseptic technique. Blood collected. 08:19 Patient has correct armband on for positive identification. Bed in low position. Call ap3 light in reach. Side rails up X2. Pulse ox on. NIBP on. Door closed. Noise minimized. Warm blanket given. 08:28 Chest Abd Pelvis Wo Con In Process Unspecified. EDMS 08:55 Chest Single View XRAY In Process Unspecified. EDMS 09:19 Angio Aorta For Dissection In Process Unspecified. EDMS 09:25 Alan Santos MD is Hospitalizing Provider. ms3 09:43 First set of blood cultures drawn by me. ap3 09:54 Inserted saline lock: 22 gauge in left antecubital area, using aseptic technique. Blood ap3 collected. 12:50 No provider procedures requiring assistance completed. Patient admitted, IV remains in ap3 place. 07/23 07:28 Subsequent Med Neb Given as ordered Patient was reinforced on procedure Patient eb2 tolerated procedure well without adverse effect. Education provided to the patient regarding: Other: Patient educated on scheduled breathing treatments. 07:28 Respiratory: Breath sounds are clear bilaterally. Denies shortness of breath at rest. eb2 09:03 Primary Nurse role handed off by Lis Patricia RN bd 13:50 Unable to give Med Neb Patient refused therapy at this time. Patient stated "I think eb2 those treatments are giving me a sore throat. My throat is really hurting me. I am going to skip this one, and take the one this evening". RN was notified. Administered Medications: 07/22 10:04 Drug: Rocephin (cefTRIAXone) 1 grams Route: IV; Rate: calculated rate; Site: right ap3 antecubital; 10:40 Follow up: IV Status: Completed infusion ap3 10:40 Drug: AZITHromycin 500 mg Route: IVPB; Infused Over: 1 hrs; Site: left antecubital; ap3 12:02 Follow up: IV Status: Completed infusion; IV Intake: 250ml ap3 Medication: 07:00 VIS not applicable for this client. aa9 Intake: 12:02 IV: 250ml; Total: 250ml. ap3 Outcome: 09:26 Decision to Hospitalize by Provider. ms3 12:50 Admitted to ER Hold. Please see [facility] for further documentation. ap3 12:50 Condition: good 07/23 15:48 Patient left the ED. db Signatures: Dispatcher [employer] EDMS Faviola Avalos Donovan ds4 Jensen Castanon, RN RN jd3 Lis Patricia RN RN ap3 Meg Campos, R/T R/T eb2 Jerel Cope, DO ms3 Tootie Theodore, RN RN aa9 La Witt, RN RN db Paco Evans MD MD rt
--- NOTE | 2022-07-23 15:49 | EDPHYS ---
Physician Documentation [facility] Name: Veena Gray Age: 87 yrs Sex: Female : 1935 Arrival Date: 07/22/2022 Time: 06:47 Bed 25 Private MD: ED Physician Jerel Cope HPI: 07/22 06:58 This 87 yrs old Female presents to ER via EMS with complaints of Spitting up blood. rt 06:58 The patient presents with Spitting up blood. Onset: The symptoms/episode began/occurred rt 6 hour(s) ago. The symptoms do not radiate. Associated signs and symptoms: Pertinent positives: nausea. The symptoms are described as achy. Modifying factors: The symptoms are alleviated by nothing. Severity of pain: At its worst the pain was moderate. Patient presents to the ED with spitting up of blood starting at about 1 AM. The patient reports mild epigastric pain, nonradiating. She denies any cough. She denies shortness of breath, chest pain. States that she has not had change to her stool, states that it is dark but she is taking iron pills. Denies other acute complaints at this time, symptoms are moderate in severity, no other aggravating or alleviating factors.. Historical: - Allergies: 06:58 PENICILLINS; aa9 06:58 Sulfa (Sulfonamide Antibiotics); aa9 06:58 Codeine; aa9 - PMHx: 06:58 a fib; GERD; hiatal hernia; kidney disease; Myocardial infarction; Vertigo; aa9 - PSHx: 06:58 Cholecystectomy; hysterectomy; Iliac stent; aa9 - Immunization history:: Client reports receiving the 2nd dose of the Covid vaccine. - Social history:: Smoking status: Patient denies any tobacco usage or history of. - Family history:: not pertinent. ROS: 06:58 Constitutional: Negative for fever, chills, and weight loss, Eyes: Negative for injury, rt pain, redness, and discharge, Neck: Negative for injury, pain, and swelling, Cardiovascular: Negative for chest pain, palpitations, and edema, Respiratory: Negative for shortness of breath, cough, wheezing, and pleuritic chest pain, MS/Extremity: Negative for injury and deformity, Skin: Negative for injury, rash, and discoloration, Neuro: Negative for headache, weakness, numbness, tingling, and seizure, Psych: Negative for depression, anxiety, suicide ideation, homicidal ideation, and hallucinations. 06:58 Abdomen/GI: Positive for abdominal pain, spitting up blood. Exam: 06:58 Constitutional: This is a well developed, well nourished patient who is awake, alert, rt and in no acute distress. Head/Face: Normocephalic, atraumatic. Eyes: Pupils equal round and reactive to light, extra-ocular motions intact. Lids and lashes normal. Conjunctiva and sclera are non-icteric and not injected. Cornea within normal limits. Periorbital areas with no swelling, redness, or edema. ENT: Nares patent. No nasal discharge, no septal abnormalities noted. Tympanic membranes are normal and external auditory canals are clear. Oropharynx with no redness, swelling, or masses, exudates, or evidence of obstruction, uvula midline. Mucous membranes moist. Neck: Trachea midline, no thyromegaly or masses palpated, and no cervical lymphadenopathy. Supple, full range of motion without nuchal rigidity, or vertebral point tenderness. No Meningismus. Chest/axilla: Normal chest wall appearance and motion. Nontender with no deformity. No lesions are appreciated. Cardiovascular: Regular rate and rhythm with a normal S1 and S2. No gallops, murmurs, or rubs. Normal PMI, no JVD. No pulse deficits. Respiratory: Lungs have equal breath sounds bilaterally, clear to auscultation and percussion. No rales, rhonchi or wheezes noted. No increased work of breathing, no retractions or nasal flaring. Skin: Warm, dry with normal turgor. Normal color with no rashes, no lesions, and no evidence of cellulitis. MS/ Extremity: Pulses equal, no cyanosis. Neurovascular intact. Full, normal range of motion. Neuro: Awake and alert, GCS 15, oriented to person, place, time, and situation. Cranial nerves II-XII grossly intact. Motor strength 5/5 in all extremities. Sensory grossly intact. Cerebellar exam normal. Normal gait. Psych: Awake, alert, with orientation to person, place and time. Behavior, mood, and affect are within normal limits. 06:58 Abdomen/GI: Mild epigastric tenderness without rebound, guarding, distention.. Vital Signs: 06:52 BP 148 / 102; Pulse 84; Resp 34 S; Pulse Ox 90% on 2 lpm NC; Weight 48.99 kg (R); aa9 Height 5 ft. 2 in. (157.48 cm) (R); 06:58 Temp 99.9(O); aa9 08:18 Pulse 85; Pulse Ox 93% on 2 lpm NC; ap3 09:54 BP 113 / 50; Pulse 73; Pulse Ox 100% on 2 lpm NC; ap3 12:01 BP 103 / 63; Pulse 62; Pulse Ox 100% on R/A; ap3 12:01 Resp 23; ap3 06:52 Body Mass Index 19.75 (48.99 kg, 157.48 cm) aa9 MDM: 06:50 Patient medically screened. rt 08:48 ED course: Called by lab for elevated Troponin. With "spitting up blood" and elevated ms3 Troponin will obtain CT chest angio. 11:01 Data reviewed: vital signs, nurses notes, lab test result(s), EKG, radiologic studies, ms3 and as a result, I will admit patient. Counseling: I had a detailed discussion with the patient and/or guardian regarding: the historical points, exam findings, and any diagnostic results supporting the discharge/admit diagnosis, lab results, radiology results, the need for further work-up and treatment in the hospital. 07/22 06:57 Order name: CBC with Diff; Complete Time: 08:44 rt 07/22 06:57 Order name: CMP; Complete Time: 08:44 rt 07/22 06:57 Order name: Troponin High Sensitivity; Complete Time: 08:44 rt 07/22 06:57 Order name: BNP; Complete Time: 08:44 rt 07/22 06:57 Order name: Type And Screen; Complete Time: 09:22 rt 07/22 09:22 Order name: Blood Culture Adult (2) ms3 07/22 09:22 Order name: Lactate w/ 2H reflex if indic.; Complete Time: 11:00 ms3 07/22 09:22 Order name: Protime (+inr); Complete Time: 11:00 ms3 07/22 09:22 Order name: Ptt, Activated; Complete Time: 11:00 ms3 07/22 12:26 Order name: SARS-COV-2 Antigen Rapid bd 07/22 13:35 Order name: SARS-COV-2 Antigen Rapid; Complete Time: 19:00 EDMS 07/22 14:24 Order name: CBC with Automated Diff; Complete Time: 19:00 EDMS 07/22 14:26 Order name: Basic Metabolic Panel; Complete Time: 19:00 EDMS 07/22 14:30 Order name: Lipid Profile; Complete Time: 19:00 EDMS 07/22 06:57 Order name: Chest Single View XRAY; Complete Time: 11:00 rt 07/22 06:57 Order name: CT Abd/Pelvis - IV Contrast Only rt 07/22 14:32 Order name: Troponin High Sensitivity; Complete Time: 19:00 EDMS 07/22 14:37 Order name: Phosphorus; Complete Time: 19:00 EDMS 07/22 14:37 Order name: T4 Free; Complete Time: 19:00 EDMS 07/22 14:37 Order name: Magnesium; Complete Time: 19:00 EDMS 07/22 14:37 Order name: Thyroid Stimulating Hormone; Complete Time: 19:00 EDMS 07/22 15:36 Order name: Manual Differential; Complete Time: 19:00 EDMS 07/22 20:50 Order name: Basic Metabolic Panel EDMS 07/22 20:50 Order name: Troponin High Sensitivity EDMS 07/22 21:15 Order name: Hemoglobin A1c EDMS 07/23 03:09 Order name: CBC with Automated Diff EDMS 07/23 03:33 Order name: Comprehensive Metabolic Panel EDMS 07/23 03:33 Order name: Uric Acid EDMS 07/23 03:33 Order name: Phosphorus EDMS 07/23 03:33 Order name: NT PRO-BNP EDMS 07/22 08:11 Order name: IV; Complete Time: 08:11 jd3 07/22 08:11 Order name: Labs collected and sent; Complete Time: 08:11 jd3 07/22 08:16 Order name: Chest Abd Pelvis Wo Con; Complete Time: 09:22 EDMS 07/22 08:48 Order name: CT Chest For PE Angio ms3 07/22 08:52 Order name: Angio Aorta For Dissection; Complete Time: 11:00 EDMS 07/22 09:22 Order name: EKG; Complete Time: 09:23 ms3 07/22 09:22 Order name: Accucheck; Complete Time: 10:40 ms3 07/22 09:22 Order name: Cardiac monitoring; Complete Time: 09:47 ms3 07/22 09:22 Order name: EKG - Nurse/Tech; Complete Time: 12:21 ms3 07/22 09:22 Order name: IV Saline Lock - Large Bore; Complete Time: 09:47 ms3 07/22 09:22 Order name: O2 Per Protocol; Complete Time: 09:28 ms3 07/22 09:22 Order name: O2 Sat Monitoring; Complete Time: 09:28 ms3 07/22 09:22 Order name: Vital Signs; Complete Time: 09:47 ms3 07/22 12:20 Order name: CONS Physician Consult EDMS Administered Medications: 10:04 Drug: Rocephin (cefTRIAXone) 1 grams Route: IV; Rate: calculated rate; Site: right ap3 antecubital; 10:40 Follow up: IV Status: Completed infusion ap3 10:40 Drug: AZITHromycin 500 mg Route: IVPB; Infused Over: 1 hrs; Site: left antecubital; ap3 12:02 Follow up: IV Status: Completed infusion; IV Intake: 250ml ap3 Disposition Summary: 07/22/22 09:26 Hospitalization Ordered Hospitalization Status: Inpatient Admission ms3 Provider: Alan Santos ms3 Condition: Stable ms3 Problem: new ms3 Symptoms: are unchanged ms3 Bed/Room Type: Standard ms3 Location: Telemetry/MedSurg (Inpatient)(07/23/22 13:59) ja1 Room Assignment: [facility](07/23/22 13:59) ja Diagnosis - Other pneumonia, unspecified organism ms3 - Acute respiratory failure with hypoxia ms3 - Subsequent non-ST elevation (NSTEMI) myocardial infarction ms3 - Sepsis without end organ dysfunction ms3 Forms: - Medication Reconciliation Form ms3 - SBAR form ms3 Signatures: Dispatcher [employer] EDMS Stephanie Pringle RN RN ss Davies, Jonathon, RN RN jd3 Aguilar, Jose, RN RN ja1 Lis Patricia RN RN ap3 Jerel Cope DO DO ms3 Tootie Theodore RN RN aa9 Paco Evans MD MD rt Corrections: (The following items were deleted from the chart) 11:20 11:14 Abdomen ordered. EDMS EDMS 11:20 11:16 Chest For Pe Angio ordered. EDMS EDMS 16: 09:26 Telemetry/MedSurg (Inpatient) ms3 ss 16: 09: ms3 07/23 13:59 07/22 16:26 [facility] ER HOLD ss ja 07/23 13:59 07/22 16:26 ERHOLD- ja1
[2022-07-23] MEDS: MAGNESIUM OXIDE 400 MG TAB PO SCH (20:24)
--- NOTE | 2022-07-23 20:41 | P.PN ---
Date of Service: 07/23/22 Vital Signs Temp Pulse Resp BP Pulse Ox 99.5 F 76 16 108/58 L 97 07/23/22 16:00 07/23/22 16:00 07/23/22 16:00 07/23/22 16:00 07/23/22 16:00 Medications Acetaminophen (Acetaminophen 325 Mg Tablet) 650 mg PO Q6H PRN PRN Reason: TEMP > 100' F Hydrocodone Bitart/Acetaminophen (Hydrocodone/Apap 5/325 Mg Tab) 1 tab PO Q6H PRN PRN Reason: Pain scale 5-7 (Moderate) Albuterol Sulfate (Albuterol 2.5 Mg/3 Ml Neb Kim) 2.5 mg NEB [id number] [facility] Last Admin: 07/23/22 13:54 Dose: Not Given Amiodarone HCl (Amiodarone Hcl 200 Mg Tab) 200 mg PO DAILY [facility] Last Admin: 07/23/22 09:00 Dose: 200 mg Docusate Sodium (Docusate Na 100 Mg Cap) 100 mg PO BID [facility] Last Admin: 07/23/22 20:24 Dose: Not Given Ergocalciferol (Drisdol (Vitamin D=Ergocalciferol) 62101 Unit Cap) 50,000 unit PO Q7D@0900 [facility] Fluoxetine HCl (Fluoxetine 10 Mg Cap) 10 mg PO BEDTIME [facility] Last Admin: 07/23/22 20:23 Dose: 10 mg Furosemide (Furosemide 20 Mg/ 2ml Vial) 20 mg IV DAILY [facility] Last Admin: 07/23/22 09:00 Dose: Not Given Home Med (Mirabegron [Myrbetriq]) 50 mg PO DAILY [facility] Last Admin: 07/23/22 09:00 Dose: Not Given Cefepime HCl 1 gm/ Sodium (Chloride) 100 mls @ 200 mls/hr IV Q12HR [facility]; Protocol Last Admin: 07/23/22 20:23 Dose: 100 mls Vancomycin HCl 1 gm/ Sodium (Chloride) 250 mls @ 250 mls/hr IVPB Q36H [facility] Ipratropium [place] (Ipratropium Brom 0.5mg/2.5ml) 0.5 mg NEB [id number] [facility] Last Admin: 07/23/22 13:54 Dose: Not Given Levothyroxine Sodium (Levothyroxine Sod 0.075 Mg Tab) 0.075 mg PO DAILY [facility] Last Admin: 07/23/22 05:54 Dose: 0.075 mg Magnesium Oxide (Magnesium Oxide 400 Mg Tab) 400 mg PO BEDTIME [facility] Last Admin: 07/23/22 20:24 Dose: 400 mg Ondansetron HCl (Ondansetron 4 Mg/2 Ml Vial) 4 mg IV Q6HP PRN PRN Reason: NAUSEA / VOMITING Pantoprazole Sodium (Pantoprazole 40mg Tablet) 40 mg PO BID [facility]; Protocol Last Admin: 07/23/22 20:23 Dose: 40 mg Sodium Chloride (Flush Normal Saline 10 Ml) 10 ml IV BID [facility] Last Admin: 07/23/22 09:00 Dose: 10 ml Microbiology Results 07/22/22 09:43 Blood - Blood Aerobic Blood Culture - Preliminary No growth in 24 hours. 07/22/22 09:43 Blood - Blood Anaerobic Blood Culture - Preliminary No growth in 24 hours. Assessment/ Plan: Nephrology No dyspnea No chest pain Feeling much better today No acute events overnight Vitals, medications, blood work and imaging reviewed in the chart. General: In no apparent distress, Oriented x3, Cooperative HEENT: Atraumatic Neck: Supple Respiratory: Diminished Cardiovascular: No edema, Regular rate/rhythm Gastrointestinal: Soft and benign, Non-distended Musculoskeletal: No clubbing, No contractures Integumentary: No rashes, No cyanosis Neurological: Normal speech Laboratory Data (last 24 hrs) 07/22/22 09:43: PT 17.5 H, INR 1.59, APTT 31.2 07/22/22 08:07: Sodium 136, Potassium 5.2 H, BUN 23 H, Creatinine 1.37 H, Glucose 205 H, Total Bilirubin 0.6, AST 20, ALT 30, Alkaline Phosphatase 57 07/22/22 08:07: WBC 13.20 H, Hgb 12.0, Hct 37.0, Plt Count 367 Imagings Data: EXAM DESCRIPTION: RAD - Chest Single View - 07/22/2022 8:53 am CLINICAL HISTORY: COUGH Chest pain. COMPARISON: Abdomen 1 View (KUB) dated 04/22/2022; Chest Single View dated 04/21/2022; Chest Single View dated 04/21/2022; Chest Single View dated 02/03/2022 FINDINGS: Portable technique limits examination quality. Extensive bilateral pulmonary opacities are present, greater on the left EXAM DESCRIPTION: CT - Chest Abd Pelvis Wo Con - 07/22/2022 8:27 am CLINICAL HISTORY: Chest and abdomen pain. coughing up blood COMPARISON: Chest Abd Pelvis Wo Con dated 01/11/2018 TECHNIQUE: A limited noncontrast study was performed. All CT scans are performed using dose optimization technique as appropriate and may include automated exposure control or mA/KV adjustment according to patient size. FINDINGS: Diffuse COPD is present. There is quite extensive areas of lung consolidation seen particularly involving the left lung posterior left upper lobe, lingula and left lower lobe. To a lesser extent there is involvement of the right lower lobe.Small bilateral pleural effusions, larger on the right.No intrathoracic adenopathy.Very large hiatal hernia. The liver, spleen, pancreas, adrenal glands and kidneys are within normal limits. Gastrostomy tube. No bowel obstruction, free air, free fluid or abscess. There is a very large amount of retained stool seen rectosigmoid colon. Postsurgical changes are present sigmoid colon. Aortoiliac atherosclerosis. No pathologic lymphadenopathy in the abdomen or pelvis. Bilateral total hip arthroplasties. IMPRESSION: Extensive bilateral airspace lung opacities are present, greater on the left. This most likely represents pneumonia.Small bilateral pleural effusions. Moderate fecal retention throughout the colon. EXAM DESCRIPTION: CT - Angio Aorta For Dissection - 07/22/2022 9:17 am CLINICAL HISTORY: Chest pain radiating to the back. dissection COMPARISON: No comparisons TECHNIQUE: CT angiography of the aorta was performed with MIPs. All CT scans are performed using dose optimization technique as appropriate and may include automated exposure control or mA/KV adjustment according to patient size. FINDINGS: A left aortic arch is present with normal branching pattern of the great vessels.No acute aortic finding is seen such as aneurysm, penetrating ulcer or dissection. Heavy atherosclerosis is seen involving the abdominal aorta and visceral artery origins. No evidence of pulmonary embolism. There is a large hiatal hernia present. The majority of the stomach is in trathoracic. Large areas of airspace consolidation seen, greater on the left. Small bilateral pleural effusions are present. The liver demonstrates no focal mass or biliary dilatation.Gastrostomy tube.The spleen, pancreas, adrenal glands and right kidney are within normal limits for arterial phase imaging.Benign left renal cysts. No bowel obstruction, free fluid or abscess.There is a large amount stool retained in the rectosigmoid colon.No pathologic enlarged lymphadenopathy identified. Bilateral total hip arthroplasty. IMPRESSION: No acute aortic finding is demonstrated.Heavy atherosclerosis of the abdominal aorta is present without acute finding. Extensive bilateral pulmonary opacities, greater on the left, favoring pneumonia. Large hiatal hernia with the majority of the stomach intrathoracic. Conclusions/Impression: CKD IIIb -No NSAIDs -UA pending Hyponatremia -Lasix daily Hyperkalemia -Hold spironolactone -Lasix daily HTN with CKD -Hold antihypertensives at this time Pulmonary HTN Moderate TR -Caution with excess diuresis IFG A1C 5.9 -No sugar diet Anemia in chronic illness -Monitor H&H Atherosclerosis of the aorta -Consider statin BL PNA with hemoptysis -Continue abx -Continue Oxygen
[2022-07-23 22:16] VITALS: O2SAT 96
[2022-07-24] MEDS: IPRATROPIUM BROM 0.5MG/2.5ML NEB SCH ×2 (02:00→09:03)
[2022-07-24] MEDS ORDERED: VANCOMYCIN 1 GM in NA CHLORIDE 0.9% 250 ML IVPB SCH (02:00)
[2022-07-24] MEDS: ALBUTEROL 2.5 MG/3 ML NEB SOL NEB SCH ×2 (02:00→09:03)
[2022-07-24 04:20] LABS: Absolute Lymphocytes (CBC) 1.1 K/uL (0.7-4.9); Hematocrit 27.5 % (36.0-45.0); Lymphocytes % 7.7 % (15.3-44.8); MCV 92.2 fL (80-100); MPV 7.4 fL (7.6-11.3); RBC Red Blood Cell Count 2.98 M/uL (3.86-4.86)
[2022-07-24 04:33] LABS: Potassium 4.8 mmol/L (3.5-5.1); Uric Acid 5.5 mg/dL (2.6-6.0)
[2022-07-24 08:01] LABS: Specific Gravity 1.014 (1.005-1.030); Urine Bacteria <20 /HPF (<20); Urine Bilirubin NEGATIVE (Negative); Urine Blood Trace (Negative); Urine Clarity Clear (Clear); Urine Color Light-Yellow (Yellow); Urine Glucose NEGATIVE (Negative); Urine Mucus Slight /HPF (None Seen); Urine Protein NEGATIVE (Negative); Urine RBC <5 /HPF (None Seen); Urine Urobilinogen Normal (Normal); Urine WBC Clump Rare /HPF (None Seen)
[2022-07-24 08:07] LABS: UR PROTEIN 19.6 mg/dL (<11.9); Urine Protein/Creatinine Ratio 0.35 ratio (<0.15)
[2022-07-24] MEDS: AMIODARONE HCL 200 MG TAB PO SCH (08:15)
[2022-07-24] MEDS: LEVOTHYROXINE SOD 0.075 MG TAB PO SCH (08:15)
[2022-07-24] MEDS: DOCUSATE NA 100 MG CAP PO SCH (08:15)
[2022-07-24] MEDS: PANTOPRAZOLE 40MG TABLET PO SCH (08:15)
[2022-07-24] MEDS: FUROSEMIDE 20 MG/ 2ML VIAL IV SCH ×2 (08:16→08:21)
[2022-07-24] MEDS: CEFEPIME 1 GM in NA CHLORIDE 0.9% 100 ML IV SCH (08:16)
[2022-07-24] MEDS: HOME MED 1 EA UNK (Mirabegron [Myrbetriq] 50 MG Tab.Er.24h) PO SCH (09:00)
--- NOTE | 2022-07-24 11:51 | RAD REPORT ---
EXAM DESCRIPTION: Angelia Single View07/24/2022 11:42 am CLINICAL HISTORY: Chest pain COMPARISON: July 22, 2022 FINDINGS: Mild improvement in the left and no significant change in the right pulmonary opacities w hich probably represent pneumonia. The heart remains enlarged
[2022-07-24 12:14] VITALS: BP 137/63; TEMP 98.1
--- NOTE | 2022-07-24 12:22 | P.PN ---
Subjective Date of Service: 07/24/22 Chief Complaint: Hemoptysis, pneumonia Subjective: Improving (Patient is doing much better hemoptysis is decreased denies any further chest pain) Review of Systems General: Weakness Respiratory: Cough, Shortness of Breath, Hemoptysis Physical Examination - Vital Signs Temperature: 98.1 F Blood Pressure: 137/63 Pulse: 70 Respirations: 16 Pulse Ox (%): 93 - Physical Exam General: Alert, In no apparent distress, Oriented x3 Respiratory: Crackles/rales (Because of the left) Assessment And Plan - Current Problems (Diagnosis) (1) Pneumonia Current Visit: Yes Status: Acute Plan: 87 years of age admitted with hemoptysis left lower lobe pneumonia clinically improving chest x-ray no significant change at count is declining is off oxygen plan to discharge on levofloxacin for another 7 days renal function is stable follow-up with me in 2 weeks with a pre-clinic chest X Qualifiers: Pneumonia type: due to unspecified organism Laterality: bilateral Physician Review: Patient Assessed, Agree with Above Assessment and Plan
[2022-07-24] MEDS ORDERED: levoFLOXacin 750 MG TAB PO SCH (13:00)
--- NOTE | 2022-07-24 17:54 | P.PN ---
Nephrology 9S) This is a delayed entry note, pt seen earlier in the day prior to discharge, pt seen sitting up on the side of the bed denied dyspnea and reported resolution of hemoptysis Vitals, medications, blood work and imaging reviewed in the chart. General: In no apparent distress, Oriented x3, Cooperative HEENT: Atraumatic Neck: Supple Respiratory: b/l air entry, no sig rhonchi Cardiovascular: No edema, Regular rate/rhythm mostly Gastrointestinal: Soft and benign, Non-distended Musculoskeletal: No clubbing, No contractures Integumentary: No rashes, No cyanosis Neurological: Normal speech, awake, alert, non focal Laboratory Data (last 24 hrs) Reviewed Conclusions/Impression: CKD III unspecified -Cr level stable during admission, monitor closely Hyperkalemia -Resolved, Spironolactone held for now HTN -Monitor BP range Chronic diastolic HF, mod , pulm HTN 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
[2022-07-25] MEDS ORDERED: VANCOMYCIN 0.75 GM in NA CHLORIDE 0.9% 150 ML IVPB SCH (02:00)
[2022-07-25] MEDS ORDERED: levoFLOXacin 250 MG TAB PO SCH (09:00)
[2022-07-29] MEDS ORDERED: DRISDOL (VITAMIN D=ERGOCALCIFEROL) 50000 UNIT CAP PO SCH (09:00)
--- NOTE | 2022-08-04 14:59 | P.PN ---
Date of Service: 07/23/22 Subjective Patient is feeling better. Hemoptysis workup as an outpatient. This has improved. Holding off on Eliquis. Will probably use antiplatelet therapy. Symptoms are better. Physical Examination - Vitals reviewed - Physical Exam General: Alert, Oriented x3, Cooperative, Mild distress Respiratory: Diminished Cardiovascular: No edema, Normal S1 S2 Gastrointestinal: Normal bowel sounds, No tenderness Musculoskeletal: No swelling, No contractures, No erythema, No tenderness Integumentary: No rashes, No breakdown, No significant lesion, No tenderness/swelling, No erythema Neurological: Normal speech, Normal tone, Normal affect Assessment and Plan - Assessent/Plan -- Hemoptysis secondary to pneumonia. Pulmonology consultation appreciated. -- Bilateral pneumonia. Continue with antibiotics and O2 therapy prn. Further management per radio communication coordinator. -- Acute on chronic COPD exacerbation. Continue steroids, O2 therapy and neb treatment with albuterol\Atrovent. -- Chest pain. Serial troponins--currently elevated. Telemetry to monitor for any significant arrhythmia. Cardiology consultation appreciated. Echocardiogram pending. Will await further recommendations. -- Atrial fibrillation. Holding Eliquis. Continue amiodarone. Telemetry to monitor for arrhythmia. Further management per compound specialist. -- GERD. Continue Protonix. -- Hx of CAD. Continue Antiplatelet therapy -- Depression\Anxiety disorder. Continue home medication. -- RENETTA on CKD 3 A. Nephrology consulted. Will await further recommendations. -- Elevated BNP. No history of CHF noted. Echocardiogram pending to assess LV\valvular function and wall motion. Continue diuresis with Lasix. Will reassess BNP in the morning. Further management per compound specialist. -- Hyperkalemia. Replete BMP pending. Treatment based on results. -- OA. Will manage pain with current pain medication regimen -- OAB. Continue home medication. -- Hypothyroidism. Continue home medication. -- DVT prophylaxis with SCDs.
--- NOTE | 2022-08-04 15:00 | P.DS ---
Discharge Date: 07/24/22 Disposition: ROUTINE DISCHARGE Discharge Condition: GOOD Reason for Admission: Hemoptysis, pneumonia Brief History of Present Illness: Acute patient is an 87-year-old female with a past medical history significant for A. fib, GERD, COPD, , CAD, OA, hypothyroidism, OAB, depression, anxiety disorder who presents with complaint of hemoptysis onset this morning. Patient also reports chest pain located in the left chest area, rated as 5/10 in severity and described as aching in quality. Patient reports associated signs and symptoms of dizziness, shortness of breath and headache. Patient denies any other signs and symptoms. Symptoms are aggravated or relieved by nothing. Patient decided to present to the hospital for medical evaluation. Hospital Course: Patient is doing much better. Hemodialysis has improved. Continue with nebs, steroids, and antibiotics. Appreciate pulmonary consultation. At this time patient is doing much better in anticipate discharge home with outpatient follow up. Patient will need follow up with cardiology and pulmonary. Continue with labs and have sent off for a nebulizer as well. Return to the emergency room or symptoms worsen. Vital Signs/Physical Exam: Temp Pulse Resp BP Pulse Ox 98.1 F 70 16 137/63 93 07/24/22 12:22 07/24/22 12:22 07/24/22 12:22 07/24/22 12:22 07/24/22 12:22 General: Alert, In no apparent distress, Oriented x3 Laboratory Data at Discharge: WBC 14.40 K/uL (4.3-10.9) H 07/24/22 03:51 Hgb 9.2 g/dL (12.0-15.0) L D 07/24/22 03:51 Hct 27.5 % (36.0-45.0) L 07/24/22 03:51 Plt Count 255 K/uL (152-406) 07/24/22 03:51 PT 17.5 SECONDS (9.5-12.5) H 07/22/22 09:43 INR 1.59 07/22/22 09:43 APTT 31.2 SECONDS (24.3-36.9) 07/22/22 09:43 Sodium 136 mmol/L (136-145) 07/24/22 03:51 Potassium 4.8 mmol/L (3.5-5.1) 07/24/22 03:51 BUN 39 mg/dL (7-18) H 07/24/22 03:51 Creatinine 1.42 mg/dL (0.55-1.3) H 07/24/22 03:51 Glucose 119 mg/dL (74-106) H 07/24/22 03:51 Uric Acid 5.5 mg/dL (2.6-6.0) 07/24/22 03:51 Phosphorus 3.2 mg/dL (2.5-4.9) 07/23/22 02:26 Magnesium 2.0 mg/dL (1.8-2.4) 07/22/22 13:53 Total Bilirubin 0.5 mg/dL (0.2-1.0) 07/23/22 02:26 AST 19 U/L (15-37) 07/23/22 02:26 ALT 30 U/L (12-78) 07/23/22 02:26 Alkaline Phosphatase 43 U/L (45-117) L D 07/23/22 02:26 Triglycerides 60 mg/dL (<150) 07/22/22 13:53 Cholesterol 116 mg/dL (<200) 07/22/22 13:53 HDL Cholesterol 61 mg/dL (40-60) H 07/22/22 13:53 Cholesterol/HDL Ratio 1.90 07/22/22 13:53 Home Medications: Levothyroxine [Synthroid*] 1 tab PO DAILY #30 tab 07/12/16 Mirabegron [Myrbetriq] 50 mg PO DAILY 01/05/21 Apixaban [Eliquis *] 2.5 mg PO BID #60 tablet 02/04/22 Amiodarone HCl [Cordarone*] 1 tab DAILY 04/22/22 Fluoxetine HCl 1 tab DAILY 04/22/22 Omeprazole [Prilosec] 40 mg DAILY 04/22/22 Spironolactone 1 tab DAILY 04/22/22 Pantoprazole Sodium [Protonix] 40 mg PO BID 30 Days #60 tab 04/24/22 Cephalexin [Keflex*] 500 mg PO DAILY 07/23/22 Albuterol Neb [Proventil 0.083% Neb Soln] 2.5 mg NEB [id number] #60 amp 07/24/22 Hydrocodone 5/APAP 325 [[place] 5/325*] 1 tab PO Q6H PRN #30 tab 07/24/22 Ipratropium Neb [Atrovent*] 0.5 mg NEB [id number] #60 amp 07/24/22 Vitamin D [Drisdol*] 50,000 unit PO Q7D@0900 #10 cap 07/24/22 levoFLOXacin [Levaquin*] 500 mg PO DAILY #7 tab 07/24/22 Nebulizer 1 each MC DAILY #1 box 07/26/22 Nebulizer Accessories [Aeroneb Go] 1 each MC DAILY #1 box 07/26/22 New Medications: Nebulizer Accessories [Aeroneb Go] 1 each MC DAILY #1 box Ipratropium Neb [Atrovent*] 0.5 mg NEB [id number] #60 amp Vitamin D [Drisdol*] 50,000 unit PO Q7D@0900 #10 cap levoFLOXacin [Levaquin*] 500 mg PO DAILY #7 tab Nebulizer 1 each MC DAILY #1 box Hydrocodone 5/APAP 325 [[place] 5/325*] 1 tab PO Q6H PRN #30 tab PRN Reason: Pain Scale 5-7 (Moderate) Albuterol Neb [Proventil 0.083% Neb Soln] 2.5 mg NEB [id number] #60 amp Physician Discharge Instructions: OK TO DC IV AND DC HOME FOLLOW-UP WITH PRIMARY CARE PROVIDER IN 1-2 WEEKS FOLLOW-UP WITH Pulmonary and Cardiology(possible stress test) IN 1-2 WEEKS RETURN TO THE ER IF symptoms worsens CALL DR. MARTIN AT [phone] IF ANY QUESTIONS REGARDING HOSPITAL STAY. PLEASE CALL THE FLOOR AT [phone] IF ANY MEDICATION OR NURSING QUESTIONS. Diet: AHA Activity: Fall precautions Followup: NONE,NONE [Primary Care Provider] - Time spent managing pt's care (in minutes): 35
== END 2022-07-24 14:35 | disposition home or self-care (01) | DRG 871 ==
LOC: ER 06:45 → ERHOLD 12:17 → 2ND 07-23 14:55
PROVIDERS: ADMIT Hospitalist; ATTEND Hospitalist
DX: A41.9 Sepsis, unspecified organism (principal); J18.9 Pneumonia, unspecified organism; J96.01 Acute respiratory failure with hypoxia; E87.1 Hypo-osmolality and hyponatremia; J44.0 Chronic obstructive pulmonary disease with (acute) lower respiratory infection; J44.1 Chronic obstructive pulmonary disease with (acute) exacerbation; N17.9 Acute kidney failure, unspecified; I48.20 Chronic atrial fibrillation, unspecified; I24.8 Other forms of acute ischemic heart disease; I50.32 Chronic diastolic (congestive) heart failure; I13.0 Hypertensive heart and chronic kidney disease with heart failure and stage 1 through stage 4 chronic kidney disease, or unspecified chronic kidney disease; N18.31 Chronic kidney disease, stage 3a; D63.1 Anemia in chronic kidney disease; K21.9 Gastro-esophageal reflux disease without esophagitis; F32.A Depression, unspecified; F41.9 Anxiety disorder, unspecified; E87.5 Hyperkalemia; N32.81 Overactive bladder; I25.10 Atherosclerotic heart disease of native coronary artery without angina pectoris; M19.90 Unspecified osteoarthritis, unspecified site; I70.0 Atherosclerosis of aorta; I27.20 Pulmonary hypertension, unspecified; D63.8 Anemia in other chronic diseases classified elsewhere; E03.9 Hypothyroidism, unspecified; R07.9 Chest pain, unspecified; R73.01 Impaired fasting glucose; Z88.5 Allergy status to narcotic agent; Z88.0 Allergy status to penicillin; Z88.1 Allergy status to other antibiotic agents; Z79.01 Long term (current) use of anticoagulants; Z90.49 Acquired absence of other specified parts of digestive tract; Z91.040 Latex allergy status; Z79.890 Hormone replacement therapy; Z79.899 Other long term (current) drug therapy; Z90.710 Acquired absence of both cervix and uterus; Z87.891 Personal history of nicotine dependence; Z20.822 Contact with and (suspected) exposure to COVID-19
CPT/HCPCS: 36415; 71045; 71250; 71275; 74175; 74176; 80048; 80053; 80061; 80202; 81001; 82570; 83036; 83605; 83735; 83880; 84100; 84156; 84439; 84443; 84484; 84550; 85025; 85610; 85730; 86160; 86850; 86900; 86901; 87040; 87811; 93306; 94640; 99285; J0456; J0692; J1940; J2920; J3370; J7050; J7613; J7644; Q9967

== ENCOUNTER 2022-10-29 18:28 | Inpatient (IN) | payer OTHER ==
--- OUTSIDE RECORDS SUMMARY | 2022-10-29 18:42 | XMS REPORT | Continuity of Care Document ---
:1935 Author Organization [facility] t Address [address] [place] [address] [address] [place] [address] Care Team Providers Name Role Phone YUSUF GIBBONS Primary Care Physician Unavailable Gurwinder Haro Attending Clinician Unavailable RIKI REYEZ Attending Clinician Unavailable YUSUF GIBBONS Attending Clinician Unavailable , Infusion Nurse Attending Clinician Unavailable Yusuf Gibbons MD Attending Clinician Doctor Unassigned, [place] Attending Clinician Unavailable Therapy, Adc Covid Infusion Attending Clinician Unavailable Ivan Fuentes MD Attending Clinician IVAN FUENTES Attending Clinician Unavailable REENA BEVERLY Attending Clinician Unavailable Deirdre Bowie PA-C Attending Clinician Reena Kerr Attending Clinician Iván Cowan Attending Clinician Unavailable UNKNOWN Attending Clinician Unavailable Neida Jones Attending Clinician [phone] Iván Cowan MD Attending Clinician Meaghan Antony [...] Policy Number Effective Date Expiration Date [facility] MEDICARE PART A \\T\\ [id number] 1999 B 00:00:00 CONTINENTAL LIFE [id number] 2016 00:00:00 CONTINENTAL [id number] 2020 BENEFITS 00:00:00 Problems Condition Condition Condition Status Onset Resolution Last Treating Co mments Source Name Details Category Date Date Treatment Clinician Date CCL / CCL / Diagnosis Active 2018-082019-06-02 Alesia oria RENAL RENAL 0- 05:41:00 l STENT STENT 00:00: [place] Active 00 05/25/2019 [facility] NEW PT NEW PT Diagnosis Active 2019-05-05 Nyasia carpenter CONSULT - CONSULT - 04-23 14:43:00 l 2ND 2ND 00:00: Conrad OPINION OPINION 00 Active 04/23/2019 [facility] ATHEROSCLE ATHEROSCL Diagnosis Active 2016-11-19 Edgar ROSAIDA OF EROSIS OF 10-17 13:05:00 l [place] 00:00: Conrad ARTERIES ARTERIES 00 OF EX OF EX Active 10/17/2016 [facility] CCL/LEFT CCL/LEFT Diagnosis Active 2016-10-21 Memoria 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: 00:00: [place] I70.221 I70.221 00 Active 10/17/2016 [facility] DIZZINESS DIZZINESS Diagnosis Active 2016-05-01 Memoria Active 04-21 22:08:00 l 04/21/2016 00:00: Galen martínez [address] 593.2 - 593.2 - Diagnosis Active 2016-03-31 Memoria "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 15:54:00 l KIDNEY," KIDNEY," 00:01: [place] martínez Active 00 03/03/2015 MARIE Martines Coronary Coronary Problem Resolve 2020-09-01 Memoria arterioscl arterioscl d 22:24:26 l erosis erosis [place] (disorder) (disorder) Resolved Problem 09/01/2020 CAD with stents [facility], OPIZeinab Carlson Gastroesop Gastroeso Problem Resolve 2020-09-01 Memoria hageal phageal d 22:24:26 l reflux reflux [place] disease disease (disorder) (disorder) Resolved Problem 09/01/2020 [facility], OPIZeinab Carlson History of History Problem Resolve 2020-09-01 Memoria - surgery of - d 22:24:26 l (context-d surgery Mela nn ependent (context-d category) ependent category) Resolved Problem 09/01/2020 [facility], OPID Robyn History of History Problem Resolve 2020-09-01 Memoria - vertigo of - d 22:24:26 l (context-d vertigo Mela nn ependent (context-d category) ependent category) Resolved Problem 09/01/2020 [facility], OPIZeinab Vidala Hypertensi Hypertens Problem Resolve 2020-09-01 Memoria ve nathan d 22:24:26 l disorder, disorder, Herm angela systemic systemic arterial arterial (disorder) (disorder) Resolved Problem 09/01/2020 [facility], MARIE Carlson ENCNTR FOR ENCNTR Diagnosis Active 2019-05-05 Memoria GENERAL FOR 14:43:00 l ADULT GENERAL Conrad MEDICAL ADULT EXAM W/ MEDICAL EXAM W/ Active [facility] ILLNESS, ILLNESS, Diagnosis Active 2016-05-01 Memoria UNSPECIFIE UNSPECIFIE 22:08:00 l D D Active Conrad [facility] No known No known Disease Unive rs active active ity of problems problems [facility] Myocardial Myocardia Problem Resolve 2020-09-01 2020-09-01 Memoria infarction l d 08-25 22:24:26 22:24:26 l (disorder) infarction 00:00: [place] (disorder) 00 Resolved 08/25/2002 Problem 09/01/2020 [facility], MARIE Carlson Allergies, Adverse Reactions, Alerts Allergy Allergy Status Severity Reaction(s) Onset Inactive Treating Comm ents Source Name Type Date Date Clinician Penicill DA Active U HIVES [facility] ins 09-14 [place] 00:00: [facility] 00 are [facility] Sulfa DA Active U RASH [facility] (Sulfona 09-14 [place] mid 00:00: Health Antibiot 00 are ics) [facility] codeine DA Active U NAUSEA [facility] 09-14 [place] 00:00: Healthc 00 are [facility] CODEINE DRUG Active Unknown-Cmnt Uni vers INGREDI [...] Drug Active Unknown-Cmnt Un [place] INS Class 9 ity of 00:00: [place] 00 [facility] [...] Conrad Celebrex Celebrex Active Memori a l Conrda Keflex Keflex Active Memoria l [place] penicill penicill Active Memori a ins ins l [place] sulfa sulfa Active Memoria drugs drugs l [place] Social History Social Habit Start Date Stop Date Quantity Comments Source History of Current smoker University of tobacco use [facility] Exposure to 2022-05-13 2022-05-23 Not sure University of SARS-CoV-2 00:00:00 13:43:00 [facility] [place] Tobacco use and 2022-03-13 2022-03-13 Smokeless tobacco Un iversity of exposure 00:00:00 00:00:00 non-user [facility] Tobacco Comment 2022-03-13 2022-03-13 quit 30 yrs ago Univ ersity of 00:00:00 00:00:00 [facility] Sex Ass[birth year] At [birth year] [facility] 00:00:00 00:00:00 Smoking Status Start Date Stop Date Source Tobacco smoking consumption Meth [facility] unknown Social History 2020-08-23 14:59:17 2020-08-23 14:59:17 [facility] Medications Ordered Filled Start Stop Current Ordering Indication Dosage Frequency Signature Comments Components Source Medication Medication Date Date Medication? Clinician (SIG) Name Name denosumab 2021- No [id number] 60mg 60 mg, U nivers (PROLIA) 05-23 [place] ity of injection 18:11: 18:17 [place] 60 mg 00 :00 1 dose, On Med ical [place] Branch 05/23/22 at 1315, Routine
team member approving Non-formul miquel medication : YUSUF GIBBONS
Reaso n for non-formul miquel use: PATIENT CURRENTLY TAKING NONFORMULA RY PRODUCT d-mannose Yes Take by [facility] ers 500 mg Cap 7-20 mouth. ity of 17:29: [place] [address] [place] [address] Branch spironolact Yes Take by Uni vers one 25 mg/5 7-20 mouth ity of mL oral 17:29: daily. [place] suspension [address] [place] [address] Branch levothyroxi Yes 75mg Take 75 mg Univers ne sodium 7-20 by mouth. ity o f (LEVOTHROID 17:29: [place] ORAL) [address] [place] [address] Branch mirabegron Yes Take by [facility] ers (MYRBETRIQ) 7-20 mouth ity of 50 mg 17:29: daily. [place] tablet [address] [place] [address] Branch d-mannose Yes Take by Unive rs 500 mg Cap 7-20 mouth. ity of 17:29: [address] spironolact Yes Take by Uni vers one 25 mg/5 7-20 mouth ity of mL oral 17:29: daily. [place] suspension [address] [place] [address] levothyroxi Yes 75mg Take 75 mg Univers ne sodium 7-20 by mouth. ity o f (LEVOTHROID 17:29: [place] ORAL) [address] [facility] mirabegron 2022-0 Yes Take by [facility] ers (MYRBETRIQ) 7-20 mouth ity of 50 mg 17:29: daily. [place] tablet 15 Medical Branch d-mannose Yes Take by [facility] rs 500 mg Cap 7-20 mouth. ity of 17:29: [place] 15 Medical Branch spironolact Yes Take by Uni vers one 25 mg/5 7-20 mouth ity of mL oral 17:29: daily. [place] suspension 15 Medical Branch levothyroxi Yes 75mg Take 75 mg Univers ne sodium 7-20 by mouth. ity o f (LEVOTHROID 17:29: [place] ORAL) 15 Medical Branch mirabegron Yes Take by [facility] ers (MYRBETRIQ) 7-20 mouth ity of 50 mg 17:29: daily. [place] tablet 15 Medical Branch amiodarone Yes 200mg Take 200 Un [place] 200 mg 7-12 mg by ity of tablet 00:00: mouth in [place] 00 the Medical morning. Branch amiodarone Yes 200mg Take 200 Un [place] 200 mg 7-12 mg by ity of tablet 00:00: mouth in [place] 00 the Medical morning. Branch amiodarone 0 Yes 200mg Take 200 Un [place] 200 mg 7-12 mg by ity of tablet 00:00: mouth in [place] 00 the Medical morning. Branch amLODIPine Yes 2.5mg Take 2.5 Un [place] 2.5 mg 6-20 mg by ity of tablet 00:00: mouth in [place] 00 the Medical morning Branch and 2.5 mg in the evening. amLODIPine 0 Yes 2.5mg Take 2.5 Un [place] 2.5 mg 6-20 mg by ity of tablet 00:00: mouth in [place] 00 the Medical morning Branch and 2.5 mg in the evening. amLODIPine 2021-0 Yes 2.5mg Take 2.5 Un [place] 2.5 mg 6-20 mg by ity of tablet 00:00: mouth in [place] 00 the Medical morning Branch and 2.5 mg in the evening. ELIQUIS 2.5 2021-0 Yes 2.5mg Take 2.5 U nivers mg tablet 6-17 mg by ity of 00:00: mouth 2 [place] [address] (two) Medical times Branch daily. ELIQUIS 2.5 2021-0 Yes 2.5mg Take 2.5 U nivers mg tablet 6-17 mg by ity of 00:00: mouth 2 [place] (two) Medical times Branch daily. ELIQUIS 2.5 2021-0 Yes 2.5mg Take 2.5 U nivers mg tablet 6-17 mg by ity of 00:00: mouth 2 [place] (two) Medical times Branch daily. SERTraline 2020-0 Yes 12.5mg Take 12.5 Univers 25 mg 8-06 mg by ity of tablet 11:25: mouth. [place] [address] Medical Branch Cranberry 0 Yes 500mg Take 500 Uni vers 500 mg Cap 8-06 mg by ity of 11:25: mouth 2 [place] (two) Medical times Branch daily. iron,carb/f 2020-0 Yes 1{tbl} Take 1 Un [place] olic ac/vit 8-06 tablet by ity of Bcomp,C 11:25: mouth 2 [place] (IRON-FOLIC 07 (two) Medical 500 ORAL) times Branch daily. SERTraline 2020-0 Yes 12.5mg Take 12.5 Univers 25 mg 8-06 mg by ity of tablet 11:25: mouth. [place] [address] Medical Branch Cranberry 0 Yes 500mg Take 500 Uni vers 500 mg Cap 8-06 mg by ity of 11:25: mouth 2 [place] (two) Medical times Branch daily. iron,carb/f 2020-0 Yes 1{tbl} Take 1 [place] olic ac/vit 8-06 tablet by ity of Bcomp,C 11:25: mouth 2 [place] (IRON-FOLIC 07 (two) Medical 500 ORAL) times Branch daily. SERTraline 2020-0 Yes 12.5mg Take 12.5 Univers 25 mg 8-06 mg by ity of tablet 11:25: mouth. [place] [address] Medical Branch Cranberry 2020-0 Yes 500mg Take 500 Uni vers 500 mg Cap 8-06 mg by ity of 11:25: mouth 2 [place] 07 (two) Medical times Branch daily. iron,carb/f 2020-0 Yes 1{tbl} Take 1 [place] olic ac/vit 8-06 tablet by ity of Bcomp,C 11:25: mouth 2 [place] (IRON-FOLIC 07 (two) Medical 500 ORAL) times Branch daily. folic acid Yes [id number] Take by Univers (FA-8) 0.8 4-15 mouth. ity of mg Cap 10:51: [address] Magnesium Yes [id number] 500mg Take 500 Univers 250 mg Tab 4-15 mg by ity of 10:51: mouth. [address] aspirin 81 0 Yes 81mg Take 81 mg U nivers mg EC 4-15 by mouth ity of tablet 10:51: daily. [address] CALCIUM Yes Take by Univers CITRATE 4-15 mouth. ity of ORAL 10:51: [address] NIFEdipine Yes Nifedical Un [place] XL 30 mg 24 4-15 XL 30 mg ity of hr tablet 10:51: tablet,ext [place] [facility] Medical release [place] ramipriL 10 Yes 10mg Take 10 mg Univers mg capsule 4-15 by mouth ity o f 10:51: daily. [address] folic acid Yes [id number] Take by Univers (FA-8) 0.8 4-15 mouth. ity of mg Cap 10:51: [address] Magnesium Yes [id number] 500mg Take 500 Univers 250 mg Tab 4-15 mg by ity of 10:51: mouth. [address] aspirin 81 0 Yes 81mg Take 81 mg U nivers mg EC 4-15 by mouth ity of tablet 10:51: daily. [address] CALCIUM Yes Take by Univers CITRATE 4-15 mouth. ity of ORAL 10:51: [address] NIFEdipine Yes Nifedical Un [place] XL 30 mg 24 4-15 XL 30 mg ity of hr tablet 10:51: tablet,ext [place] [facility] release [place] ramipriL 10 Yes 10mg Take 10 mg Univers mg capsule 4-15 by mouth ity o f 10:51: daily. [address] folic acid Yes [id number] Take by Univers (FA-8) 0.8 4-15 mouth. ity of mg Cap 10:51: [address] Magnesium 0 Yes [id number] 500mg Take 500 Univers 250 mg Tab 4-15 mg by ity of 10:51: mouth. [address] aspirin 81 Yes 81mg Take 81 mg U nivers mg EC 4-15 by mouth ity of tablet 10:51: daily. [address] CALCIUM Yes Take by Univers CITRATE 4-15 mouth. ity of ORAL 10:51: [address] NIFEdipine Yes Nifedical Un [place] XL 30 mg 24 4-15 XL 30 mg ity of hr tablet 10:51: tablet,ext [place] Medical release Branch ramipriL 10 Yes 10mg Take 10 mg Univers mg capsule 4-15 by mouth ity o f 10:51: daily. 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, Height, 60, kg, 08/23/20 8:57:00 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, Weight 24 HR 2019-08 Yes 50 mg = 1 Memoria mirabegron 2-30 tab, PO, l 50 MG 15:24: Daily, # [place] Extended 00 30 tab, 0 Release Refill(s), Tablet Pharmacy: [[facility]] [employer] [place], 160.02, cm, 08/23/20 8:57:00 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 May dispose of applicator ., # 43 gm, 3 Refill(s), Pharmacy: [facility], 160.02, cm, 06/14/20 10:46:00 CDT, Height, 60, kg, 06/14/20 10:46:00 CDT, Weight 24 HR 2020- Yes 50 mg = 1 Memoria mirabegron 0-21 tab, PO, l 50 MG 16:58: Daily, # [place] Extended 00 30 tab, 0 Release Refill(s), Tablet Pharmacy: [[facility]] [facility], 160.02, cm, 06/14/20 10:46:00 CDT, Height, 60, kg, 06/14/20 10:46:00 CDT, Weight Estradiol 2020- Yes See Memoria 0.1 MG/ML 0-21 Instructio l Vaginal 16:58: ns, apply Mela nn Cream 00 pea size [Estrace] amount to urethra and vagina 3xweek. May dispose of applicator ., # 43 gm, 3 Refill(s), Pharmacy: [facility], 160.02, cm, 06/14/20 10:46:00 CDT, Height, 60, kg, 06/14/20 10:46:00 CDT, Weight 24 HR 2020- Yes 50 mg = 1 Memoria mirabegron 0-21 tab, PO, l 50 MG 16:58: Daily, # [place] Extended 00 30 tab, 0 Release Refill(s), Tablet Pharmacy: [[facility]] [facility], 160.02, cm, 06/14/20 10:46:00 CDT, Height, 60, kg, 06/14/20 10:46:00 CDT, Weight Estradiol 2020- Yes See Memoria 0.1 MG/ML 0-21 Instructio l Vaginal 16:58: ns, apply Mela nn Cream 00 pea size [Estrace] amount to urethra and vagina 3xweek. May dispose of applicator ., # 43 gm, 3 Refill(s), Pharmacy: [facility], 160.02, cm, 06/14/20 10:46:00 CDT, Height, [...] Nitroglycer 2018-08 No Notes: Arturo sony in 0-09 (Same l 14:55: as:Nitroqu [place] 00 ick, Nitrostat) "Do Not Crush" Sublingual [...] Sodium 2018-08 No 750 mL, Memoria Chloride Rate: 75 l 0.9% IV 750 14:55: ml/hr, Herm angela mL 00 Infuse over: 10 hr, Route: IV, Dosing Weight 65.909 kg, Total Volume: 750, Start date: 06/02/19 9:55:00 CDT, Duration: 10 hr, Stop date: 06/02/19 19:54:00 CDT, 1.72, m2, 0 Nitroglycer 2018-08 No Notes: Arturo sony in (Same l 14:55: as:Nitroqu [place] 00 ick, Nitrostat) "Do Not Crush" Sublingual [...] Arturo sony Route: IV, l 11:50: ONCE, [place] 00 Dosing Weight 65.909, kg, Start date: 06/02/19 6:50:00 CDT, Stop date: 06/02/19 6:50:00 CDT oxybutynin 2018-08 Yes 5 mg = 1 Mem oria 5 mg oral 0-09 tab, PO, l tablet, 10:59: QAM, 0 [place] extended 00 Refill(s) release ramipril 2018-08 Yes 10 mg = 1 M emoria mg oral 0-09 cap, PO, l capsule 10:59: BID, 0 [place] 00 Refill(s) [place] 2018-08 Yes 1 tab, PO, Memor ia Calcium 0-09 BID, 0 l with 10:59: Refill(s) Conrad Vitamin D 00 Chelated 2018-08 Yes See Memoria Magnesium 0-09 Instructio l 10:59: ns, 250 mg [place] 00 PO QPM, 0 Refill(s) oxybutynin 2018-08 Yes 5 mg = 1 Mem oria 5 mg oral 0-09 tab, PO, l tablet, 10:59: QAM, 0 [place] extended 00 Refill(s) release ramipril 2018-08 Yes 10 mg = 1 M emoria mg oral 0-09 cap, PO, l capsule 10:59: BID, 0 [place] 00 Refill(s) [place] 2018-08 Yes 1 tab, PO, Memor ia Calcium 0-09 BID, 0 l with 10:59: Refill(s) [place] Vitamin D 00 Chelated 2018-08 Yes See Memoria Magnesium 0-09 Instructio l 10:59: ns, 250 mg [place] 00 PO QPM, 0 Refill(s) oxybutynin 2018-08 Yes 5 mg = 1 Mem oria 5 mg oral 0-09 tab, PO, l tablet, 10:59: QAM, 0 [place] extended 00 Refill(s) release ramipril 2018-08 Yes 10 mg = 1 M emoria mg oral 0-09 cap, PO, l capsule 10:59: BID, 0 Conrad 00 Refill(s) [place] 2018-08 Yes 1 tab, PO, Memor ia Calcium 0-09 BID, 0 l with 10:59: Refill(s) Conrad Vitamin D 00 Chelated 2018-08 Yes See Memoria Magnesium 0-09 Instructio l 10:59: ns, 250 mg [place] 00 PO QPM, 0 Refill(s) Bifidobacte Yes [...] l oral tablet 19:55: ns, Take 2 [place] 00 tablets by mouth the first day then 1 tablet by mouth daily on days 2-5., # 6 tab, 0 Refill(s) aspirin 81 No Notes: Do Me moria mg tablet, 10-29 not crush l enteric 15:00: or chew. 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 Conrad (Same As: Ecotrin) Sertraline No Notes: Memor ia -07 (Same as: l 15:00: Zoloft) Ramipril No Notes: Memoria 3-07 (Same l 15:00: as:Altace) aspirin 81 No Notes: Do Me moria mg tablet, 10-29 not crush l enteric 15:00: or chew. 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 (Same As: Ecotrin) Sertraline No Notes: Memor ia 3-07 (Same as: l 15:00: Zoloft) Ramipril No Notes: Memoria 3-07 (Same l 15:00: as:Altace) Synthroid 2016-0 No 75 Memoria 3-07 microgram, l 12:30: 1 tab, Route: PO, Drug form: TAB, Q630AM, Dosing Weight 64.545, kg, Start date: 10/29/16 6:30:00 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, Duration: 30 day, Stop date: 11/27/16 6:30:00 CDT Synthroid 2016-0 No 75 Memoria 3-07 microgram, l 12:30: 1 tab, Route: PO, Drug form: TAB, Q630AM, Dosing Weight 64.545, kg, Start date: 10/29/16 6:30:00 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, Duration: 30 day, Stop date: 11/27/16 6:30:00 CDT Synthroid 2016-0 No 75 Memoria 3-07 microgram, l 12:30: 1 tab, Route: PO, Drug form: TAB, Q630AM, Dosing Weight 64.545, kg, Start date: 10/29/16 6:30:00 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, Duration: 30 day, Stop date: 11/27/16 6:30:00 CDT Ticagrelor 2017-0 No Notes: Memor ia 3-07 (Same as: l 12:00: Brilinta) Conrad Ticagrelor 2016-0 No Notes: Memor ia 3-07 (Same as: l 12:00: Brilinta) [place] Ticagrelor 2016-0 No Notes: Memor ia 3-07 (Same as: l 12:00: Brilinta) [place] ticagrelor 2016-0 No Notes: Memor ia 3-07 (Same as: l 04:00: Brilinta) [place] ticagrelor 2016-0 No Notes: Memor ia 3-07 (Same as: l 04:00: Brilinta) [place] ticagrelor 2016-0 No Notes: Memor ia 3-07 (Same as: l 04:00: Brilinta) [place] Saline No Notes: Memoria Flush 0.9% 3-07 (Same as: l 03:00: BD [place] 00 Posiflush) Brilinta 0 No 60 mg, Memoria 3-07 Route: PO, l 03:00: Drug form: [place] 00 TAB, Q12H, Dosing Weight 64.545, kg, Start date: 10/28/16 21:00:00 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, Duration: 30 day, Stop date: 11/27/16 9:00:00 CDT Saline 0 No Notes: Memoria Flush 0.9% 3-07 (Same as: l 03:00: BD Conrad 00 Posiflush) Brilinta 0 No 60 mg, Memoria 3-07 Route: PO, l 03:00: Drug form: [place] 00 TAB, Q12H, Dosing Weight 64.545, kg, Start date: 10/28/16 21:00:00 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 [place] 00 (Same as: Phenergan) Phenergan No Notes: Do Mem oria 3-07 not give l 01:52: IV push. [place] 00 (Same as: Phenergan) Phenergan No Notes: Do Mem oria 3-07 not give l 01:52: IV push. 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 [place] 00 (Same as: Tylenol) Sodium No 25 mL, Memoria Chloride 10-28 Rate: 20 l 0.154 23:59: ml/hr, Conrad MEQ/ML 00 Infuse Injectable over: 1.3 Solution hr, Route: IV, Dosing Weight 64.545 kg, Total Volume: 25, Start date: 10/28/16 17:59:00 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, Duration: 24 hr, Stop date: 10/29/16 17:58:00 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 Saline No Notes: Memoria Flush 0.9% 10-28 (Same as: l 23:59: BD [place] 00 Posiflush) clopidogrel No 300 mg, Mem oria 10-28 Route: PO, l 23:59: Drug form: [place] 00 TAB, ONCE, Dosing Weight 64.545, kg, Priority: NOW, Start date: 10/28/16 17:59:00 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, Stop date: 10/28/16 17:59:00 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 Nitroglycer No Notes: Arturo sony in 10-28 (Same l 23:59: as:Nitroqu [place] 00 ick, Nitrostat) "Do Not Crush" Sublingual tablet Acetaminoph No Notes: Do M emoria en 10-28 not exceed l 23:59: 4 gm/day. [place] 00 (Same as: Tylenol) Sodium No 25 mL, Memoria Chloride 10-28 Rate: 20 l 0.154 23:59: ml/hr, [place] MEQ/ML 00 Infuse Injectable over: 1.3 Solution hr, Route: IV, Dosing Weight 64.545 kg, Total Volume: 25, Start date: 10/28/16 17:59:00 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, Duration: 24 hr, Stop date: 10/29/16 17:58:00 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 Saline 0 No Notes: Memoria Flush 0.9% 10-28 (Same as: l 23:59: BD [place] 00 Posiflush) clopidogrel No 300 mg, Mem oria 10-28 Route: PO, l 23:59: Drug form: [place] 00 TAB, ONCE, Dosing Weight 64.545, kg, Priority: NOW, Start date: 10/28/16 17:59:00 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, Stop date: 10/28/16 17:59:00 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 Nitroglycer No Notes: Arturo sony in 10-28 (Same l 23:59: as:Nitroqu [place] 00 ick, Nitrostat) "Do Not Crush" Sublingual tablet Acetaminoph No Notes: Do M emoria en 10-28 not exceed l 23:59: 4 gm/day. [place] 00 (Same as: Tylenol) Sodium No 25 mL, Memoria Chloride 10-28 Rate: 20 l 0.154 23:59: ml/hr, [place] MEQ/ML 00 Infuse Injectable over: 1.3 Solution hr, Route: IV, Dosing Weight 64.545 kg, Total Volume: 25, Start date: 10/28/16 17:59:00 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, Duration: 24 hr, Stop date: 10/29/16 17:58:00 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 Midodrine No 2.5 mg, Memor ia 10-28 Route: PO, l 23:00: Drug form: [place] 00 TAB, TID, Dosing Weight 64.545, kg, Start date: 10/28/16 17:00:00 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, Duration: 30 day, Stop date: 11/27/16 13:00:00 CDT oxybutynin No Notes: Memor ia -06 Same as: l 23:00: Ditropan) [place] 00 Triamcinolo No Notes: Arturo sony ne 10-28 (Same As: l Acetonide 23:00: Kenalog) Herm angela 0.001 MG/MG 00 Topical Ointment Midodrine No 2.5 mg, Memor ia 10-28 Route: PO, l 23:00: Drug form: [place] 00 TAB, TID, Dosing Weight 64.545, kg, Start date: 10/28/16 17:00:00 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, Duration: 30 day, Stop date: 11/27/16 13:00:00 CDT oxybutynin No Notes: Memor ia 3-06 Same as: l 23:00: Ditropan) [place] 00 Triamcinolo No Notes: Arturo sony ne 10-28 (Same As: l Acetonide 23:00: Kenalog) Herm angela 0.001 MG/MG 00 Topical Ointment Midodrine No 2.5 mg, Memor ia 3 Route: PO, l 23:00: Drug form: [place] 00 TAB, TID, Dosing Weight 64.545, kg, Start date: 10/28/16 17:00:00 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, Duration: 30 day, Stop date: 11/27/16 13:00:00 CDT oxybutynin No Notes: Memor ia 06 Same as: l 23:00: Ditropan) [place] 00 Triamcinolo No Notes: Arturo sony ne 10-28 (Same As: l Acetonide 23:00: Kenalog) Herm angela 0.001 MG/MG 00 Topical Ointment lansoprazol No Notes: Arturo sony e 3-06 Take 1 l 22:30: hour [place] 00 before or 2 hours after meal; Expires in 14 days. Shake well before use. (Same as:Kaiden loson) Compound ed Product - formulatio n not commercial ly available* * lansoprazol No Notes: Arturo sony e -06 Take 1 l 22:30: hour [place] 00 before or 2 hours after meal; Expires in 14 days. Shake well before use. (Same as:Kaiden d) Compound ed Product - formulatio n not commercial ly available* * lansoprazol No Notes: Arturo sony e - Take 1 l 22:30: hour [place] 00 before or 2 hours after meal; [...] mg, PO, M emoria 60 mg oral 3-06 Q12H, # 60 l tablet 22:09: tab, 0 [place] 00 Refill(s) aspirin 81 2017-0 Yes 81 mg, PO, M emoria mg tablet, 3-06 Daily, # l enteric 22:09: 120 tab, 0 Herm angela coated 00 Refill(s) ticagrelor 2017-0 Yes 60 mg, PO, M emoria 60 mg oral 3-06 Q12H, # 60 l tablet 22:09: tab, 0 [place] 00 Refill(s) aspirin 81 2017-0 Yes 81 mg, PO, M emoria mg tablet, 10-28 Daily, # l enteric 22:09: 120 tab, 0 Herm angela coated 00 Refill(s) ticagrelor 2017-0 Yes 60 mg, PO, M emoria 60 mg oral 10-28 Q12H, # 60 l tablet 22:09: tab, 0 [place] 00 Refill(s) Nitroglycer 2017-0 No 0.4 mg, 1 M emoria in 10-28 tab, l 22:00: Route: , [place] 00 Drug form: TAB, Q5Min, Dosing Weight 64.545, kg, PRN Chest Pain, Start date: 10/28/16 16:00:00 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, Duration: 3 doses or times, Stop date: Limited # of times Sodium 2017-0 No 750 mL, Memoria Chloride 10-28 Rate: 75 l 0.154 22:00: ml/hr, [place] MEQ/ML 00 Infuse Injectable over: 10 Solution hr, Route: IV, Dosing Weight 64.545 kg, Total Volume: 750, Start date: 10/28/16 16:00:00 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, Duration: 10 hr, Stop date: 10/29/16 1:59:00 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 Nitroglycer 2016-0 No 0.4 mg, 1 M emoria in 10-28 tab, l 22:00: Route: Drug form: TAB, Q5Min, Dosing Weight 64.545, kg, PRN Chest Pain, Start date: 10/28/16 16:00:00 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, Duration: 3 doses or times, Stop date: Limited # of times Sodium 2017-0 No 750 mL, Memoria Chloride 10-28 Rate: 75 l 0.154 22:00: ml/hr, [place] MEQ/ML 00 Infuse Injectable over: 10 Solution hr, Route: IV, Dosing Weight 64.545 kg, Total Volume: 750, Start date: 10/28/16 16:00:00 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, Duration: 10 hr, Stop date: 10/29/16 1:59:00 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 Nitroglycer 2017-0 No 0.4 mg, 1 M emoria in 10-28 tab, l 22:00: Route: SL, [place] 00 Drug form: TAB, Q5Min, Dosing Weight 64.545, kg, PRN Chest Pain, Start date: 10/28/16 16:00:00 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, Duration: 3 doses or times, Stop date: Limited # of times Sodium 2016- No 750 mL, Memoria Chloride 10-28 Rate: 75 l 0.154 22:00: ml/hr, [place] MEQ/ML 00 Infuse Injectable over: 10 Solution hr, Route: IV, Dosing Weight 64.545 kg, Total Volume: 750, Start date: 10/28/16 16:00:00 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, Duration: 10 hr, Stop date: 10/29/16 1:59:00 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 ferrous 2017- Yes 325 mg = 1 Arturo sony sulfate 325 3-06 tab, PO, l mg oral 19:32: Daily, # [place] enteric 00 30 tab, 0 coated Refill(s) tablet pantoprazol Yes = 1 Pack, M emoria e 40 MG 3-06 PO, Daily, l Granules 19:32: # 30 ea, 0 Her carrizales [Protonix] 00 Refill(s) ferrous 2016- Yes 325 mg = 1 Arturo sony sulfate 325 3-06 tab, PO, l mg oral 19:32: Daily, # [place] enteric 00 30 tab, 0 coated Refill(s) tablet pantoprazol 2017 Yes = 1 Pack, M emoria e 40 MG 3-06 PO, Daily, l Granules 19:32: # 30 ea, 0 Her carrizales [Protonix] 00 Refill(s) ferrous 2016- Yes 325 mg = 1 Arturo sony sulfate 325 3-06 tab, PO, l mg oral 19:32: Daily, # [place] enteric 00 30 tab, 0 coated Refill(s) tablet pantoprazol Yes = 1 Pack, M emoria e 40 MG 3-06 PO, Daily, l Granules 19:32: # 30 ea, 0 Her carrizales [Protonix] 00 Refill(s) Sodium 2016- No 1,000 mL, Memori a Chloride 10-28 Rate: 75 l 0.154 19:25: ml/hr, [place] MEQ/ML 00 Infuse Injectable over: 13.3 Solution hr, Route: IV, Dosing Weight 64.545 kg, Total Volume: 1,000, Start date: 10/28/16 13:25:00 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, Duration: 30 day, Stop date: 11/27/16 13:24:00 CDT Sodium 2017-0 No 1,000 mL, Memori a Chloride 3-06 Rate: 75 l 0.154 19:25: ml/hr, [place] MEQ/ML 00 Infuse Injectable over: 13.3 Solution hr, Route: IV, Dosing Weight 64.545 kg, Total Volume: 1,000, Start date: 10/28/16 13:25:00 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, Duration: 30 day, Stop date: 11/27/16 13:24:00 CDT Sodium 2017-0 No 1,000 mL, Memori a Chloride 3-06 Rate: 75 l 0.154 19:25: ml/hr, [place] MEQ/ML 00 Infuse Injectable over: 13.3 Solution hr, Route: IV, Dosing Weight 64.545 kg, Total Volume: 1,000, Start date: 10/28/16 13:25:00 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, Duration: 30 day, Stop date: 11/27/16 13:24:00 CDT Sodium 2017-0 No 250 mL, Memoria Chloride 3-06 Rate: 250 l 0.154 19:24: ml/hr, [place] MEQ/ML 00 Infuse Injectable over: 1 Solution hr, Route: IV, Dosing Weight 64.545 kg, Total Volume: 250, Start date: 10/28/16 13:24:00 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, Duration: 30 day, Stop date: 11/27/16 14:23:00 CDT Sodium 2017-0 No 250 mL, Memoria Chloride 3-06 Rate: 250 l 0.154 19:24: ml/hr, Conrad MEQ/ML 00 Infuse Injectable over: 1 Solution hr, Route: IV, Dosing Weight 64.545 kg, Total Volume: 250, Start date: 10/28/16 13:24:00 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, Duration: 30 day, Stop date: 11/27/16 14:23:00 CDT Sodium 2017-0 No 250 mL, Memoria Chloride 3-06 Rate: 250 l 0.154 19:24: ml/hr, [place] MEQ/ML 00 Infuse Injectable over: 1 Solution hr, Route: IV, Dosing Weight 64.545 kg, Total Volume: 250, Start date: 10/28/16 13:24:00 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, Duration: 30 day, Stop date: 11/27/16 14:23:00 CDT midodrine Yes 2.5 mg = 1 Me moria 2.5 mg oral 02 tab, PO, l tablet 16:05: TID, # 90 [place] 00 tab, 0 Refill(s) non-formula Yes 2.5 mg =, M emoria ry - PO, BID, # l 16:05: 60, [place] 00 Refill(s) 0, MISC midodrine Yes 2.5 mg = 1 Me moria 2.5 mg oral 04-26 tab, PO, l tablet 16:05: TID, # 90 [place] 00 tab, 0 Refill(s) non-formula Yes 2.5 mg =, M emoria ry - PO, BID, # l 16:05: 60, [place] 00 Refill(s) 0, MISC midodrine Yes 2.5 mg = 1 Me moria 2.5 mg oral 04-26 tab, PO, l tablet 16:05: TID, # 90 [place] 00 tab, 0 Refill(s) non-formula Yes 2.5 mg =, M emoria ry - PO, BID, # l 16:05: 60, Conrad [...] Sertraline No Sertraline M emoria 25 mg 9-02 25 mg l tablet 02:00: tablet, [place] 00 0.5 tab, Drug form: MISC, Route: PO, Bedtime, 04/25/16 21:00:00 CDT, Duration: 30 day, Stop date: 05/24/16 21:00:00 CDT Sertraline 2016-0 No Sertraline M emoria 25 mg 9-02 25 mg l tablet 02:00: tablet, [place] 00 0.5 tab, Drug form: MISC, Route: PO, Bedtime, 04/25/16 21:00:00 CDT, Duration: 30 day, Stop date: 05/24/16 21:00:00 CDT Sertraline 2015-0 No Sertraline M emoria 25 mg 9-02 25 mg l tablet 02:00: tablet, [place] 00 0.5 tab, Drug form: MISC, Route: PO, Bedtime, 04/25/16 21:00:00 CDT, Duration: 30 day, Stop date: 05/24/16 21:00:00 CDT potassium 2016-0 No Notes: Memori a chloride 9- (Same as: l 14:30: Potassium [place] 00 Chloride) potassium 2016-0 No Notes: Memori a chloride 9-01 (Same as: l 14:30: Potassium [place] 00 Chloride) potassium 2016-0 No Notes: Memori a chloride 9-01 (Same as: l 14:30: Potassium [place] 00 Chloride) Mag-Ox 400 2015-0 No 500 mg, Arturo sony 04-25 Route: PO, l 14:00: Drug form: [place] 00 TAB, Daily, Dosing Weight 68.636, kg, Start date: 04/25/16 9:00:00 CDT, Duration: 30 day, Stop date: 05/24/16 9:00:00 CDT Mag-Ox 400 2016-0 No 500 mg, Arturo sony 04-25 Route: PO, l 14:00: Drug form: [place] 00 TAB, Daily, Dosing Weight 68.636, kg, Start date: 04/25/16 9:00:00 CDT, Duration: 30 day, Stop date: 05/24/16 9:00:00 CDT Mag-Ox 400 2015-0 No 500 mg, Arturo sony 04-25 Route: PO, l 14:00: Drug form: [place] 00 TAB, Daily, Dosing Weight 68.636, kg, Start date: 04/25/16 9:00:00 CDT, Duration: 30 day, Stop date: 05/24/16 9:00:00 CDT Sertraline 2015-0 No Sertraline M emoria 25 mg 9-01 25 mg l tablet 02:00: tablet, [place] 00 0.5 tab, Drug form: MISC, Route: PO, Bedtime, 04/24/16 21:00:00 CDT, Duration: 30 day, Stop date: 05/23/16 21:00:00 CDT Sertraline 2015-0 No Sertraline M emoria 25 mg 9-01 25 mg l tablet 02:00: tablet, [place] 00 0.5 tab, Drug form: MISC, Route: PO, Bedtime, 04/24/16 21:00:00 CDT, Duration: 30 day, Stop date: 05/23/16 21:00:00 CDT Sertraline 2015-0 No Sertraline M emoria 25 mg 9- 25 mg l tablet 02:00: tablet, [place] 00 0.5 tab, Drug form: MISC, Route: PO, Bedtime, 04/24/16 21:00:00 CDT, Duration: 30 day, Stop date: 05/23/16 21:00:00 CDT oxybutynin 2016-0 No Notes: Memor ia 8-31 Same as: l 22:00: Ditropan) [place] 00 Pindolol 2016-0 No 2.5 mg, Memori a 8-31 Route: PO, l 22:00: Drug form: [place] 00 TAB, BID, Dosing Weight 68.636, kg, Start date: 04/24/16 17:00:00 CDT, Duration: 30 day, Stop date: 05/24/16 9:00:00 CDT oxybutynin 2016-0 No 5 mg, Memori a extended 8-31 Route: PO, l release 22:00: Drug form: Herm angela 00 ERTAB, BID, Dosing Weight 68.636, kg, Start date: 04/24/16 17:00:00 CDT, Duration: 30 day, Stop date: 05/24/16 9:00:00 CDT oxybutynin 2016-0 No Notes: Memor ia 8-31 Same as: l 22:00: Ditropan) [place] Pindolol 2016-0 No 2.5 mg, Memori a 8-31 Route: PO, l 22:00: Drug form: [place] 00 TAB, BID, Dosing Weight 68.636, kg, Start date: 04/24/16 17:00:00 CDT, Duration: 30 day, Stop date: 05/24/16 9:00:00 CDT oxybutynin 2016-0 No 5 mg, Memori a extended 8-31 Route: PO, l release 22:00: Drug form: Herm angela 00 ERTAB, BID, Dosing Weight 68.636, kg, Start date: 04/24/16 17:00:00 CDT, Duration: 30 day, Stop date: 05/24/16 9:00:00 CDT oxybutynin 2016-0 No Notes: Memor ia 8-31 Same as: l 22:00: Ditropan) [place] Pindolol 2015-0 No 2.5 mg, Memori a 8-31 Route: [...] Stop date: 05/24/16 9:00:00 CDT pindolol 5 2015-0 No pindolol 5 M emoria mg tab 8-31 mg tab, l 18:00: 2.5 mg, [place] 00 0.5 tab, Drug form: MISC, Route: PO, BID, 04/24/16 13:00:00 CDT, Duration: 30 day, Stop date: 05/24/16 9:00:00 CDT Midodrine 2016-0 No Notes: Memori a 8-31 (Same l 18:00: as:Proamat Conrad 00 ine) pindolol 5 No pindolol 5 M emoria mg tab 8-31 mg tab, l 18:00: 2.5 mg, [place] 00 0.5 tab, Drug form: MISC, Route: [...] ia 8-31 (Same As: l 16:30: Zebeta) [place] 00 2.5 mg = 1/2 x 5 mg tab bisoprolol No Notes: Memor ia 8-31 (Same As: l 16:30: Zebeta) [place] 00 2.5 mg = 1/2 x 5 mg tab bisoprolol No Notes: Memor ia 8-31 (Same As: l 16:30: Zebeta) [place] 00 2.5 mg = 1/2 x 5 mg tab Keflex No Notes: Memoria 8-31 Take on l 14:00: empty [place] 00 stomach. (Same As: Keflex) Vitamin D3 [...] 04-24 Route: PO, l 14:00: Drug form: [place] 00 TAB, Daily, Dosing Weight 68.636, kg, [...] 9:00:00 CDT Keflex 0 No Notes: Memoria 04-24 Take on l 14:00: empty [place] 00 stomach. (Same As: Keflex) Vitamin D3 No Notes: Memor ia 04-24 Same as : l 14:00: Vitamin D3 Folic Acid 0 No 0.8 mg, 2 Me moria 04-24 tab, l 14:00: Route: PO, Conrad Drug form: TAB, Daily, Dosing Weight 68.636, [...] 04-24 Route: PO, l 14:00: Drug form: [place] 00 TAB, Daily, Dosing Weight 68.636, kg, [...] Memoria 04-24 Take on l 14:00: empty [place] stomach. (Same As: Keflex) Vitamin D3 No [...] Sertraline No Sertraline M emoria 25 mg 8 25 mg l tablet 14:00: tablet, [place] 00 0.5 tab, Drug form: MISC, Route: [...] 04-24 (Same as: l 11:53: Mag-Ox Conrad ) Magnesium oxide 724eh=303m g elemental magnesium Dose=____m g magnesium oxide (___mg elemental magnesium) Mag-Ox 400 No Notes: Memor ia 04-24 (Same as: l 11:53: Mag-Ox [place] ) Magnesium oxide 561td=005q g elemental magnesium Dose=____m g magnesium oxide (___mg elemental magnesium) Mag-Ox 400 No Notes: Memor ia 04-24 (Same as: l 11:53: Mag-Ox [place] ) Magnesium oxide 785dx=682f g elemental magnesium Dose=____m g magnesium oxide [...] sony 8-30 (Same as: l 08:09: Apresoline [place] 00 ) Push over 5 minutes Hydralazine No Notes: Arturo sony 8-30 (Same as: l 08:09: Apresoline [place] 00 ) Push over 5 minutes Ramipril No Notes: Memoria 8-30 (Same l 07:08: as:Altace) [place] Ramipril No Notes: Memoria 8-30 (Same l 07:08: as:Altace) Conrad Ramipril No Notes: Memoria 8-30 (Same l [...] a 8-29 Take 1 l 14:10: hour [place] 00 before or 2 hours after meal; [...] a 8-29 Take 1 l 14:10: hour [place] 00 before or 2 hours after meal; Enteral feeds may interefere with the absorption of this medication . (Same as:Synthro id, Levothroid ) Aspirin No Notes: (Do Arturo sony 8-29 Not Crush) l 14:00: Do not [place] 00 crush or chew. Aspirin No Notes: (Do Arturo sony 8-29 Not Crush) l 14:00: Do not [place] 00 crush or chew. Aspirin 0 No Notes: (Do Arturo sony 8-29 Not Crush) l 14:00: Do not [place] 00 crush or chew. Thyroxine 0 No Notes: Memori a 8-29 Take 1 l 11:30: hour [place] 00 before or 2 hours after meal; Enteral feeds may interefere with the absorption of this medication . (Same as:Synthro id, Levothroid ) Thyroxine 0 No Notes: Memori a 8-29 Take 1 l 11:30: hour [place] 00 before or 2 hours after meal; Enteral feeds may interefere with the absorption of this medication . (Same as:Synthro id, Levothroid ) Thyroxine No Notes: Memori a 8-29 Take 1 l 11:30: hour [place] 00 before or 2 hours after meal; Enteral feeds may interefere with the absorption of this medication . (Same as:Synthro id, Levothroid ) heparin No Notes: Memoria 8-29 porcine l 05:00: heparin [place] heparin No Notes: Memoria 8-29 porcine l 05:00: heparin [place] heparin No Notes: Memoria 8-29 porcine l 05:00: heparin [place] Ramipril No Notes: Memoria 8-29 (Same l 03:10: as:Altace) [place] 00 Ramipril No Notes: Memoria 8-29 (Same l 03:10: as:Altace) [place] Ramipril No Notes: Memoria 8-29 (Same l 03:10: as:Altace) [place] 00 Phenergan No Notes: Memori a 8-29 (Same as: l 02:37: Phenergan) [place] 00 6.25 mg = 1/2 x 12.5 mg TAB Phenergan No Notes: Memori a 8-29 (Same as: l 02:37: Phenergan) [place] 00 6.25 mg = 1/2 x 12.5 mg TAB Phenergan No Notes: Memori a 8-29 (Same as: l 02:37: Phenergan) [place] 00 6.25 mg = 1/2 x 12.5 mg TAB Triamcinolo Yes 1 appl, Mem oria ne 04-22 TOP, TID, l Acetonide 02:36: # 15 gm, 0 He rmann 0.001 MG/MG 00 Refill(s) Topical Ointment oxybutynin Yes 5 mg = 1 Mem oria 5 mg oral 04-22 tab, PO, l tablet 02:36: BID, # 60 [place] 00 tab, 1 Refill(s) ramipril Yes 2.5 mg = 1 Mem oria 2.5 mg oral 04-22 cap, PO, l capsule 02:36: Daily, 0 [place] 00 Refill(s) folic acid Yes 0.8 mg = 1 M emoria 0.8 mg oral 04-22 tab, PO, l tablet 02:36: Daily, 0 [place] 00 Refill(s) Cephalexin Yes 500 mg = [...] tab, PO, l Tablet 02:36: Daily, # [place] 00 30 tab, 0 Refill(s) potassium Yes [...] = 1 M emoria 0.8 mg oral 29 tab, PO, l tablet 02:36: Daily, 0 [place] 00 Refill(s) Cephalexin Yes 500 mg = 1 M emoria 500 MG Oral 04-22 cap, PO, l Capsule 02:36: Daily, # [place] [Keflex] 00 40 cap, 0 Refill(s) sertraline Yes See Memoria 25 mg oral 04-22 Instructio l tablet 02:36: ns, 0.5 [place] 00 tab PO Daily 30 day, 1 Refill(s) Aspirin 325 Yes 325 mg = 1 Memoria MG Oral 04-22 tab, PO, l Tablet 02:36: Daily, # [place] 00 30 tab, 0 Refill(s) potassium Yes 15 mEq = 1 Me moria citrate 15 - tab, PO, l MEQ 02:36: Daily, 0 [place] Extended 00 Refill(s) Release Tablet [Urocit-K] Probiotic Yes 1 cap, PO, Me moria Formula 04-22 Daily, 0 l oral 02:36: Refill(s) [place] capsule 00 24 HR No 30 mg = 1 Memoria Nifedipine -29 tab, PO, l 30 MG 02:36: PRN, # 30 [place] Extended 00 tab, 0 Release Refill(s) Tablet [...] cap, PO, l capsule 02:36: Daily, 0 [place] n 00 Refill(s) folic acid Yes 0.8 [...] tab, PO, l Tablet 02:36: Daily, # [place] 00 30 tab, 0 Refill(s) potassium Yes 15 mEq = 1 Me moria citrate 15 8-29 tab, PO, l MEQ 02:36: Daily, 0 [place] Extended 00 Refill(s) Release Tablet [Urocit-K] Probiotic [...] Memoria 04-22 (Same as: l 02:32: Colace) [place] (Do Not Crush) Acetaminoph No Notes: Do M emoria en 04-22 not exceed l 02:32: 4 gm/day. Conrad 00 (Same as: Tylenol) Docusate No Notes: Memoria 04-22 (Same as: l 02:32: Colace) [place] (Do Not Crush) Acetaminoph No Notes: Do M emoria en 04-22 not exceed l 02:32: 4 gm/day. [place] 00 (Same as: Tylenol) Docusate No Notes: Memoria 04-22 (Same as: l 02:32: Colace) [place] (Do Not Crush) Acetaminoph No Notes: Do M emoria en 04-22 not exceed l 02:32: 4 gm/day. [place] 00 (Same as: Tylenol) Vitamin D3 Yes 0 [...] Yes 0 Memoria 8-29 Refill(s) l 01:37: [place] 00 Levothyroxi Yes 75 Memori a ne [...] 00 Medical hr tablet Branch SYNTHROID Yes [id number] Univ ers 75 mcg 9-23 ity of tablet 00:00: [place] [facility] SYNTHROID 2015-0 Yes [id number] Univ ers 75 mcg 9-23 ity of tablet 00:00: [place] [facility] SYNTHROID 2015-0 Yes [id number] Univ ers 75 mcg 9-23 ity of tablet 00:00: [place] [address] [facility] Immunizations Ordered Filled Immunization Date Status Comments [facility] e Immunization Name Name CHETNA 2022-03-14 Completed University o f 00:00:00 [facility] CHETNA 2022-03-14 Completed University o f 00:00:00 [facility] TIMB 2022-03-14 Completed University o f 00:00:00 [facility] SARS-COV-2 COVID-19 2020-11-06 Completed Unive rsity of PFIZER VACCINE 00:00:00 [facility] SARS-COV-2 COVID-19 2020-11-06 Completed Unive rsity of PFIZER VACCINE 00:00:00 [facility] SARS-COV-2 COVID-19 2020-11-06 Completed Unive rsity of PFIZER VACCINE 00:00:00 [facility] SARS-COV-2 COVID-19 2020-10-16 Completed Unive rsity of PFIZER VACCINE 00:00:00 [facility] SARS-COV-2 COVID-19 2020-10-16 Completed Unive rsity of PFIZER VACCINE 00:00:00 [facility] SARS-COV-2 COVID-19 2020-10-16 Completed Unive rsity of PFIZER VACCINE 00:00:00 [facility] Influenza High Dose 2019-06-03 Completed Unive rsity of 00:00:00 [facility] Influenza High Dose 2019-06-03 Completed Unive rsity of 00:00:00 [facility] Influenza High Dose 2019-06-03 Completed Unive rsity of 00:00:00 [facility] Pneumococcal 13 2018-06-19 Completed Universit y of Conjugate, PCV13 00:00:00 [facility] dical (Prevnar 13) Branch Pneumococcal 13 2018-06-19 Completed Universit y of Conjugate, PCV13 00:00:00 [facility] dical (Prevnar 13) Branch Pneumococcal 13 2018-06-19 Completed Universit y of Conjugate, PCV13 00:00:00 [facility] dical (Prevnar 13) Branch Influenza High Dose 2016-09-03 Completed Unive rsity of 00:00:00 [facility] Influenza High Dose 2016-09-03 Completed Unive rsity of 00:00:00 [facility] Influenza High Dose 2016-09-03 Completed Unive rsity of 00:00:00 [facility] Vital Signs Vital Name Observation Time Observation Value Comments Source Systolic blood 2022-05-23 18:08:00 164 mm[Hg] Univer sity of pressure [facility] Diastolic blood 2022-05-23 18:08:00 52 mm[Hg] Unive rsity of [facility] Heart rate 2022-05-23 18:08:00 54 /min [facility]i ty of [facility] Body temperature 2022-05-23 18:08:00 36.89 [place] Univ ers[facility] of [facility] Body weight 2022-05-23 18:08:00 47.628 kg [facility]i ty of [facility] BMI 2022-05-23 18:08:00 18.60 kg/m2 [facility] Oxygen saturation in 2022-05-23 18:08:00 94 /min [facility] Arterial blood by [facility] Pulse oximetry Branch Systolic blood 2022-04-05 16:45:00 178 mm[Hg] [facility] Diastolic blood 2022-04-05 16:45:00 61 mm[Hg] [facility] Body height 2022-04-05 16:43:00 160 cm [facility] Body weight 2022-04-05 16:43:00 48.988 kg [facility] BMI 2022-04-05 16:43:00 19.13 kg/m2 [facility] Height 2020-08-23 14:57:00 [facility] 2020-08-23 14:57:00 [facility] BMI Calculated 2020-08-23 14:57:00 Shonda r[facility] Systolic (mm Hg) 2020-06-14 15:46:00 Arturo rodr[facility] [place] Diastolic (mm Hg) 2020-06-14 15:46:00 [facility] Heart Rate 2020-06-14 15:46:00 [facility] Height 2020-06-14 15:46:00 160.02 cm [facility] Weight 2020-06-14 15:46:00 [facility] [place] BMI Calculated 2020-06-14 15:46:00 [facility] Systolic (mm Hg) 2019-06-02 17:15:00 Arturo rial [place] Diastolic (mm Hg) 2019-06-02 17:15:00 Mem [facility] [place] Systolic (mm Hg) 2019-06-02 16:40:00 Arturo rial [place] Diastolic (mm Hg) 2019-06-02 16:40:00 [facility] [place] Systolic (mm Hg) 2019-06-02 16:10:00 [facility]uro [facility] Diastolic (mm Hg) 2019-06-02 16:10:00 [facility] Temperature Oral (F) 2019-06-02 11:36:00 98.4 F [facility] Height 2019-06-02 10:43:00 157.48 cm [facility] Weight 2019-06-02 10:43:00 [facility] BMI Calculated 2019-06-02 10:43:00 [facility] Systolic (mm Hg) 2019-05-05 19:46:00 Arturo [facility] Diastolic (mm Hg) 2019-05-05 19:46:00 [facility] Heart Rate 2019-05-05 19:46:00 [facility] Respitory Rate 2019-05-05 19:46:00 [facility] Height 2019-05-05 19:46:00 152.4 cm [facility] Weight 2019-05-05 19:46:00 [facility] BMI Calculated 2019-05-05 19:46:00 [facility] Systolic (mm Hg) 2016-10-29 13:36:00 [facility] Diastolic (mm Hg) 2016-10-29 13:36:00 [facility] Systolic (mm Hg) 2016-10-29 10:30:00 Arturo [facility] Diastolic (mm Hg) 2016-10-29 10:30:00 [facility] Systolic (mm Hg) 2016-10-29 08:30:00 [facility] Diastolic (mm Hg) 2016-10-29 08:30:00 [facility] Temperature Oral (F) 2016-10-29 05:00:00 96.6 F [facility] Temperature Oral (F) 2016-10-28 18:45:00 97.0 F [facility] Respitory Rate 2016-10-28 18:45:00 [facility] BMI Calculated 2016-10-28 18:23:00 [facility] Weight 2016-10-28 18:23:00 [facility] Height 2016-10-28 18:23:00 160.02 cm [facility] Systolic (mm Hg) 2016-04-26 20:27:00 [facility] Diastolic (mm Hg) 2016-04-26 20:27:00 [facility] Heart Rate 2016-04-26 20:27:00 [facility] Temperature Oral (F) 2016-04-26 20:27:00 98.4 F [facility] Respitory Rate 2016-04-26 20:27:00 [facility] Systolic (mm Hg) 2016-04-26 16:51:00 [facility] Diastolic (mm Hg) 2016-04-26 16:51:00 [facility] Respitory Rate 2016-04-26 16:51:00 [facility] Temperature Oral (F) 2016-04-26 16:51:00 98.4 F [facility] Heart Rate 2016-04-26 16:51:00 [facility] Diastolic (mm Hg) 2016-04-26 13:02:00 [facility] Systolic (mm Hg) 2016-04-26 13:02:00 [facility]uro [facility] Heart Rate 2016-04-26 13:02:00 [facility] Respitory Rate 2016-04-26 13:00:00 [facility] Temperature Oral (F) 2016-04-26 13:00:00 98.1 F [facility] BMI Calculated 2016-04-22 01:09:00 [facility] Weight 2016-04-22 01:09:00 [facility] Height 2016-04-22 01:09:00 160.02 cm [facility] Procedures Procedure Date / Time Performing Clinician Source Performed ASSIGNMENT OF BENEFITS 2022-05-23 17:57:13 [facility] [place] [facility] [id number] 2021-09-18 00:00:00 HAAER [facility] [id number] 2021-09-18 00:00:00 HAAER [facility] [id number] 2021-09-18 00:00:00 HAAER [facility] [id number] 2021-09-18 00:00:00 HAAER [facility] [id number] 2021-09-18 00:00:00 HAAER [facility] GASTROINTESTINAL PANEL 2021-08-16 20:00:00 [facility] 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 Martines prosthesis<sup>1</sup> Placement of stent in [facility] cardiac conduit Plan of Care Planned Activity Planned Date Details Comments Source Future Scheduled 2022-08-27 SHINGLES VACCINES ([address] [facility] Test 09:13:03 of 2) [code = SHINGLES VACCINES (1 of 2)] Future Scheduled 2022-08-27 65+ PNEUMOCOCCAL [facility] Test 09:13:03 VACCINE (2 - PPSV23 if available, else PCV20) [code = 65+ PNEUMOCOCCAL VACCINE (2 - PPSV23 if available, else PCV20)] Future Scheduled 2022-08-27 COVID-19 VACCINE (4 - [facility] Test 09:13:03 Booster for Pfizer series) [code = COVID-19 VACCINE (4 - Booster for Pfizer series)] Future Scheduled 2022-08-27 INFLUENZA VACCINE Method [facility] Test 09:13:03 [code = INFLUENZA VACCINE] Future Scheduled 2022-06-28 HEPATITIS B VACCINES Met [facility] Test 18:57:48 (1 of 3 - 3-dose series) [code = HEPATITIS B VACCINES (1 of 3 - 3-dose series)] Future Scheduled 2022-06-28 SHINGLES VACCINES ([address] [facility] Test 18:57:48 of 2) [code = SHINGLES VACCINES (1 of 2)] Future Scheduled 2022-06-28 65+ PNEUMOCOCCAL [facility] Test 18:57:48 VACCINE (2 - PPSV23 if available, else PCV20) [code = 65+ PNEUMOCOCCAL VACCINE (2 - PPSV23 if available, else PCV20)] Future Scheduled 2022-06-28 COVID-19 VACCINE (4 - [facility] Test 18:57:48 Booster for Pfizer series) [code = COVID-19 VACCINE (4 - Booster for Pfizer series)] Future Scheduled 2022-06-28 INFLUENZA VACCINE [facility] Test 18:57:48 [code = INFLUENZA VACCINE] Future Scheduled 2022-04-12 HEPATITIS B VACCINES Met [facility] Test 01:52:51 (1 of 3 - 3-dose series) [code = HEPATITIS B VACCINES (1 of 3 - 3-dose series)] Future Scheduled 2022-04-12 SHINGLES VACCINES (1 Met [facility] Test 01:52:51 of 2) [code = [...] series)] Future Scheduled 2022-04-12 INFLUENZA VACCINE Method [facility] Test 01:52:51 [code = INFLUENZA VACCINE] Encounters Start End Encounter Admission Attending Care Care Encounter Source Date/Time Date/Time Type Type Clinicians Facility Department ID 2022-05-03 Inpatient SCOTT Haro [facility] DAYS [id number] [facility] 10:30:[address] 2021-06-24 Outpatient SHAHBAZ STAFFORD CHANTE [id number] Univers 10:58:25 [facility] 2021-06-23 Outpatient SHAHBAZ STAFFORD CHANTE [id number] Univers 23:07:21 RIKI [facility] 2023-04-04 2023-04-04 Outpatient Jeovany GIBBONS [facility] [id number] Univers 11:30:00 11:30:00 YUSUF vines [facility] 2023-04-04 2023-04-04 Outpatient Jeovany GIBBONS [facility] [id number] Univers 11:30:00 11:30:00 YUSUF vines [facility] 2022-10-31 2022-10-31 Outpatient Jeovany GIBBONS [facility] [id number] Univers 11:00:00 11:00:00 YUSUF irene [facility] 2022-05-23 2022-05-23 Nurse 1, Adc Infusion Nurse [facility] 1.2. 840.114 [id number] Univers 13:00:00 13:15:00 Visit Yusuf GibbonsRASHMI 350.1.13.10 [place] [id number] [address] 2022-05-23 2022-05-23 Outpatient R [facility] [id number] Univers 13:00:00 13:00:00 YUSUF irene [facility] 2022-05-23 2022-05-23 Orders Doctor DEIRDRE 1.2.840.114 [id number] Univers 00:00:00 00:00:00 Only Unassigned, VELVET 350.1.13.10 [place] [facility] 4.2.7.2.686 Laurent as [phone] [address] 2022-04-30 2022-04-30 Outpatient R CHARLEEN [facility] [id number] Univers 13:00:00 13:00:00 YUSUF irene [facility] 2022-04-11 2022-04-11 Outpatient R [facility] [id number] Univers 11:00:00 11:00:00 YUSUF vines [facility] 2022-04-05 2022-04-05 Outpatient R [facility] [id number] Univers 11:30:00 12:40:58 YUSUF irene [facility] 2022-04-05 2022-04-05 [facility] 1.2.866.451 [id number] Univers 11:30:00 12:40:58 Visit Yusuf Harrison [facility] 350.1.13.10 it y [facility] 4.2.7.2.686 Laurent as [place]?BLEA [phone] [address] MEDICAL OFFICE [facility] 2022-03-29 2022-03-29 Orders Doctor DEIRDRE 1.2.840.114 [id number] Univers 00:00:00 00:00:00 Only Unassigned, VELVET 350.1.13.10 [place] [facility] 4.2.7.2.686 Laurent as [phone] [address] 2022-03-14 2022-03-14 Nurse Therapy, Adc Covid Infusion [facility] 1.2.840.114 [id number] Univers 16:00:00 17:00:00 Visit Ivan Fuentes 350.1.13.10 [place] of [place] [phone] [place] [id number] Branch 2022-03-14 2022-03-14 Outpatient R T[facility]SELECT [facility] [id number] Univers 16:00:00 16:00:00 IVAN vines [facility] 2022-03-14 2022-03-14 Orders Doctor DEIRDRE 1.2.840.114 [id number] Univers 00:00:00 00:00:00 Only Unassigned, VELVET 350.1.13.10 [place] [facility] 4.2.7.2.686 Laurent as [phone] [address] 2022-03-13 2022-03-13 Outpatient R [facility] [id number] Univers 17:00:00 17:53:42 REENA swift [facility] 2022-03-13 2022-03-13 Urgent Deirdre Bowie [facility] 1.2.840.114 [id number] Univers 17:00:00 17:20:00 Bari [facility] 350.1.13.10 ity maycol [facility] 4.2.7.2.686 Laurent as [place]?BLEA [phone] [address] MEDICAL OFFICE BUILDING 2022-03-13 2022-03-13 Outpatient R [facility] [id number] Univers 17:00:00 17:00:00 REENA swift [facility] 2022-02-27 2022-02-27 Outpatient R [facility] [id number] Univers 14:16:04 23:59:00 YUSUF vines [facility] 2022-02-27 2022-02-27 [facility] 1.2.840.114 [id number] Univers 14:15:00 23:59:00 Encounter Yusuf Christy RAHEEM 350.1.13.10 it[place].2.7.2.686 [place] [phone] [facility] 800 Branch 2021-10-25 2021-10-25 Nurse 1, Adc Infusion Nurse [facility] 1.2. 840.114 [id number] Univers 09:00:00 09:15:00 Visit Yusuf Gibbons 350.1.13.10 ity of [place] 4.2.7.2.686 [facility] s SURGICAL [phone] [facility] 053 Branch 2021-10-25 2021-10-25 Outpatient R CHARLEEN [facility] [id number] Univers 09:00:00 09:00:00 YUSUF vines [facility] 2021-10-25 2021-10-25 Orders Doctor GILMORE 1.2.840.114 [id number] Univers 00:00:00 00:00:00 Only Unassigned, VELVET 350.1.13.10 [place] [facility] 4.2.7.2.686 Laurent as [phone] [facility] 009 Branch 2021-10-11 2021-10-11 Outpatient R CHARLEEN [facility] [id number] Univers 09:30:00 09:30:00 YUSUF vines [facility] 2021-09-18 2021-09-21 Inpatient Iván Root [facility].01 [id number] [id number] [facility] 00:40:00 18:15:00 20 [facility] 2021-09-18 2021-09-18 [facility] [id number] [facility] 18:46:00 18:46:00 80 [facility] 2021-09-14 2021-09-14 Outpatient Iván Root [facility] 3DAY [id number] [facility] 00:00:00 23:59:00 20 [facility] 2021-09-14 2021-09-14 Outpatient UNKNOWN HCACL LABO [id number] [facility] 17:46:00 17:46:00 15 [facility] 2021-08-16 2021-08-16 Lab Neida Blank 1. 2.840.1 [id number] Methodi 14:00:00 14:05:00 Iván Cowan [address]66.1.[address] 3.430.2.7 Hospit a .3.822723 l .8 2021-08-15 2021-08-15 Orders Edward 1.2.840.1 [id number] Methodi 00:00:00 00:00:00 Only jeff, 53686.1.[address] [place] 3.430.2.7 Hospi [facility] .3.829846 l .8 2021-04-12 2021-04-12 Outpatient R CHARLEEN [facility] [id number] Univers 09:30:00 09:30:00 YUSUF vines [facility] 2021-04-12 2021-04-12 Nurse 1, Adc Infusion Nurse [facility] 1.2. 840.114 [id number] Univers 09:09:47 09:24:47 Visit Yusuf Gibbons 350.1.13.10 [place] 4.2.7.2.686 [place] Surgical [id number] [place] 717113 Branch 2021-04-06 2021-04-06 Outpatient R CHARLEEN [facility] [id number] Univers 10:00:00 10:00:00 YUSUF vines [facility] 2021-03-30 2021-03-30 Office Yusuf Gibbons [facility] 1.2.840. 114 [id number] Univers 11:03:18 12:12:59 Visit Meaghan Castrejon 350.1.13.10 [place] 4.2.7.2.686 [place] Professio [phone] [address] 2021-03-30 2021-03-30 Outpatient R HALIMA [facility] [id number] Univers 11:00:00 11:00:00 MEAGHAN vines [facility] 2021-01-02 2021-01-02 Orders Doctor DEIRDRE 1.2.840.114 [id number] Univers 00:00:00 00:00:00 Only Unassigned, VELVET 350.1.13.10 [place] [facility] 4.2.7.2.686 Laurent as [id number] [address] 2020-12-19 2020-12-19 Telephone [facility] 1.2.840.114 [id number] Univers 00:00:00 00:00:00 Yusuf Reeder 350.1.13.10 i [place] [phone] Or dical [facility] [address] [facility] 2020-12-08 2020-12-08 Orders Doctor DEIRDRE 1.2.840.114 [id number] Univers 00:00:00 00:00:00 Only Unassigned, VELVET 350.1.13.10 [place] HOSPITAL 4.2.7.2.686 Laurent as [phone] [address] 2020-12-07 2020-12-07 Surgery [facility] 1.2.903.033 [id number] Univers 09:00:00 11:18:00 Riki Reeder 350.1.13.10 i [place].2.[place] Surgical [phone] [facility] 020 Branch 2020-12-07 2020-12-07 [facility] 1.2.840.114 [id number] Univers 07:58:00 10:51:00 Encounter Riki Reeder 350.1.13.10 [place] [phone] [facility] 071 Branch 2020-12-07 2020-12-07 Orders Doctor DEIRDRE 1.2.840.114 [id number] Univers 00:00:00 00:00:00 Only Unassigned, VELVET 350.1.13.10 [place] HOSPITAL 4.2.7.2.686 Laurent as [id number] [address] 2020-12-06 2020-12-06 Laboratory Only, Adc Test [facility] 1.2.840. 114 [id number] Univers 08:50:27 09:05:27 Only Riki Reyez 350.1.13.10 [place] 4.2.7.2.686 [facility] [id number] [facility] 353 Branch 2020-12-06 2020-12-06 Gericare Aide Alfredo, Adc Lab Main [facility] 1.2.8 40.114 [id number] Univers 08:49:30 09:04:30 Visit Riik Reyez 350.1.13.10 [place] 4.2.7.2.686 [place] Profess[place] [phone] [facility] 353 [facility] 2020-12-06 2020-12-06 [facility] 1.2.840.114 [id number] Univers 08:45:00 08:46:00 Encounter Riki Reeder 350.1.13.10 [place] of [place] 4.2.7.2.686 [facility] [id number] [facility] 807 Branch 2020-12-06 2020-12-06 Outpatient Jeovany REYEZ [facility] [id number] Univers 08:15:00 08:15:00 RIKI jasmyn [facility] 2020-12-06 2020-12-06 Orders Doctor GILMORE 1.2.840.114 [id number] Univers 00:00:00 00:00:00 Only Unassigned, VELVET 350.1.13.10 [place] [facility] 4.2.7.2.686 Laurent as [phone] [facility] 009 Branch 2020-11-06 2020-11-06 Outpatient Jeovany HOLMAN [facility] [id number] Univers 15:30:00 15:30:00 AIYANA jasmyn [facility] 2020-10-16 2020-10-16 Outpatient Jeovany HOLMAN [facility] [id number] Univers 16:10:00 16:10:00 AIYANA vines [facility] 2020-10-06 2020-10-06 [facility] 1.2.840.114 [id number] Univers 08:54:38 23:59:00 Encounter Riki Reeder 350.1.13.10 it[place] of [place] 4.2.7.2.686 [facility] [id number] [facility] andrez 807 Branch 2020-10-06 2020-10-06 Outpatient R DEREJE [facility] [id number] Univers 08:45:00 08:45:00 RIKI vines of [facility] 2020-10-06 2020-10-06 Laboratory Only, Adc Test [facility] 1.2.840. 114 [id number] Univers 08:28:29 08:43:29 Only Riki Reyez 350.1.13.10 ity [facility] 4.2.7.2.686 [facility] [id number] [facility] andrez 353 [address] 2020-09-17 2020-09-17 Patient Sixto [facility] 1.2.840.114 [id number] Univers 00:00:00 00:00:00 Outreach Nathanael ROSIBEL 350.1.13.10 i ty [facility] 4.2.7.2.686 [facility] [phone] Or dical [address] 2020-08-30 2020-08-30 Ambulatory nullFlavo [facility] 35 [id number] Memoria 15:00:00 15:00:00 Pre-Reg r Specialty 04 l Clinic [facility] 2020-08-30 2020-08-30 Ambulatory nullFlavo [facility] 35 [id number] Memoria 15:00:00 15:00:00 Pre-Reg r Specialty 04 l Clinic [facility] 2020-08-30 2020-08-30 Outpatient Fitz [place] [id number] 09:00:00 09:00:00 Mandie L 04 2020-08-23 2020-08-24 Outpatient nullFlavo [facility] 35 [id number] Memoria 15:00:00 05:59:59 r Specialty 05 l [facility] 2020-08-23 2020-08-24 Outpatient nullFlavo [facility] 35 [id number] Memoria 15:00:00 05:59:59 r Specialty 05 l [facility] 2020-08-23 2020-08-23 Outpatient PORFIRIO ByrnesMG [place] [id number] 09:00:00 23:59:59 Mandie L 05 2020-08-23 2020-08-23 Outpatient MHIE MHIE [id number] Memoria 09:00:00 09:00:00 05 l [facility] 2020-07-26 2020-07-26 Outpatient MHIE IE [id number] Memoria 11:00:00 11:00:00 04 l [facility] 2020-06-14 2020-06-15 Outpatient nullFlavo [facility] Multi 35 [id number] Memoria 16:00:00 04:59:59 r Specialty 03 l Clinic [facility] [place] 2020-06-14 2020-06-15 Outpatient nullFlavo [facility] Multi 35 [id number] Memoria 16:00:00 04:59:59 r Specialty 03 l Clinic [facility] 2020-06-14 2020-06-14 Outpatient Staller, [facility] [id number] 11:00:00 23:59:59 Mandie L 03 2020-06-14 2020-06-14 Outpatient MHIE IE [id number] Memoria 11:00:00 11:00:00 03 charles Martines 2020-04-11 2020-04-11 [facility] Yusuf Harrison [facility] 1.2.[id number] [facility] 09:20:00 23:59:00 Encounter Radiology [place] 350.1.13.10 ity of [place] 4.2.7.2.[address] [place] [address] [id number] 2020-04-11 2020-04-11 [facility] 1.2.840 .114 [id number] 09:20:00 23:59:00 Encounter Radiology [place] 350.1.13.10 [place] [address]7.[address] [place] [address] [id number] [facility] 2020-04-11 2020-04-11 [facility] 1.2.840.[id number] [facility] [address] [facility] 09:00:00 09:19:00 Encounter Yusuf Christy [place] 350.1.13.10 ity of [place] 4.2.7.[address] [place] [id number] 2020-04-11 2020-04-11 [facility] 1.2.840.114 [id number] 09:00:00 09:19:00 Encounter Yusuf Harrison [place] 350.1.13.10 [place] 4.2.7.2.686 [place] [id number] 800 2020-04-11 2020-04-11 Outpatient R [facility] [id number] Univers 00:00:00 00:00:00 YUSUF lee annirene [facility] 2020-04-11 2020-04-11 Orders Doctor DEIRDRE 1.2.840.114 [id number] Univers 00:00:00 00:00:00 Only Unassigned, VELVET 350.1.13.10 [place] HOSPITAL 4.2.7.2.686 Laurent as [phone] [address] 2020-04-11 2020-04-11 Orders Doctor DEIRDRE 1.2.840.114 [id number] 00:00:00 00:00:00 Only Unassigned, [place]ELVET 350.1.13.10 [place] [facility] 4.2.7.2.686 [id number] [facility] 2020-03-31 2020-03-31 [facility] 1.2.024.[id number] [facility] 11:28:01 12:47:12 Visit Yusuf Reeder 350.1.13.10 i [place] [phone] [address] 2020-03-31 2020-03-31 [facility] 1.2.528.732 [id number] 11:28:01 12:47:12 Visit Yusuf Reeder 350.1.13.10 [place] 4.2.7.2.686 Professio [phone] [address] 2020-03-31 2020-03-31 Outpatient R [facility] [id number] Univers 11:30:00 11:30:00 YUSUF vines [facility] 2019-10-15 2019-10-15 [facility] 1.2.129.749 [id number] Univers 11:31:15 12:29:05 Visit Yusuf Reeder 350.1.13.10 i [place] 4[place]2.[place].2.[place] [phone] Or dic[address] 2019-10-15 2019-10-15 Outpatient R CHARLEEN, [facility] [id number] Univers 11:30:00 12:29:05 YUSUF lee annirene of [facility] 2019-06-02 2019-06-02 Bedded nullFlavo [facility] [id number] Memoria 10:35:00 18:05:00 Outpatient r Conrad 04 [facility] 2019-06-02 2019-06-02 Bedded nullFlavo [facility] [id number] Memoria 10:35:00 18:05:00 Outpatient r Conrad 04 [facility] 2019-06-02 2019-06-02 Outpatient Jc [facility] [id number] 05:35:00 13:05:00 Pilo Thayer 04 2019-06-02 2019-06-02 Outpatient [facility] CAR [id number] [facility] 05:35:00 05:35:00 2019-05-19 2019-05-20 Outpt Diag nullFlavo [facility] [id number] Memoria 18:18:00 04:59:00 Services r Outpatient 05 l [facility] 2019-05-19 2019-05-20 Outpt Diag nullFlavo [facility] [id number] Memoria 18:18:00 04:59:00 Services r Outpatient 05 l Imaging - [facility] 2019-05-19 2019-05-19 Outpatient [place], 2.16.840. 2.16.840.1. [id number] 13:18:00 23:59:00 Pilo Thayer [id number]. 321295.3.61 05 3.615.101 5.101 2019-05-05 2019-05-06 Outpatient nullFlavo [facility] [id number] Memoria 19:40:00 04:59:00 r Disease 03 l [facility] 2019-05-05 2019-05-06 Outpatient nullFlavo [facility] [id number] Memoria 19:40:00 04:59:00 r Disease 03 l [facility] 2019-05-05 2019-05-05 Outpatient Glory [facility] [id number] 14:40:00 23:59:00 [place] 03 2019-05-05 2019-05-05 Outpatient [facility] [id number] [facility] 14:40:00 14:40:00 2019-04-14 2019-04-14 [facility] 1.2.840.114 [id number] Univers 11:00:22 23:59:00 Encounter Yusuf Harrison [place] 350.1.13.10 [place]2.7.2.686 [place] [phone] [facility] [address] 2019-04-09 2019-04-09 [facility] 1.2.435.743 [id number] Univers 08:26:57 10:14:43 Visit Yusuf Reeder 350.1.13.10 i [place] 4.2.7.2.[place] [phone] Or dical nal [address] [facility] 2019-04-09 2019-04-09 Orders Doctor DEIRDRE 1.2.840.114 [id number] Univers 00:00:00 00:00:00 Only Unassigned, VELVET 350.1.13.10 [place]y of [place] [facility] 4.2.7.2.686 Laurent as [id number] [facility] 009 Branch 2016-10-28 2016-10-29 [facility] [id number] Memoria 18:02:00 15:07:00 Outpatient r Conrad 02 [facility] 2016-10-28 2016-10-29 [facility] [id number] Memoria 18:02:00 15:07:00 Outpatient jeovany Martines 02 [facility] 2016-10-28 2016-10-29 Outpatient Jc [facility] [id number] 12:02:00 09:07:00 Pilo Suarez 2016-04-22 2016-04-27 Inpatient [facility] [id number] Memoria 00:43:00 01:07:00 jeovany Martines 41 [facility] 2016-04-22 2016-04-27 [facility]patient [facility] [id number] Memoria 00:43:00 01:07:00 jeovany Martines 41 [facility] 2016-04-21 2016-04-26 Outpatient Jc [facility] [id number] 19:43:00 20:07:00 Pilo Rucker 2015-03-02 2015-03-03 Outpt Diag nullFlavo [facility] [id number] Memoria 17:37:00 04:59:00 Services r Outpatient 00 l [facility] [place] 2015-03-02 2015-03-03 Outpt Diag nullFlavo [facility] [id number] Memoria 17:37:00 04:59:00 Services r Outpatient 00 l Imaging Conrad Interianoann 2015-03-02 2015-03-02 Outpatient Cayden Fong [id number] 12:37:00 23:59:00 [id number] [id number] 2015-03-02 Outpatient [place] [id number] Memoria 13:30:00 13:30:00 00 [facility] 2015-03-02 2015-03-02 Outpatient IE IE [id number] Memoria 13:30:00 13:30:00 00 [facility] 2014-03-03 2014-03-04 Outpt Diag nullFlavo [facility] [id number] Memoria 16:41:00 04:59:00 Services r Outpatient 03 l Imaging [facility] 2014-03-03 2014-03-04 Outpt Diag nullFlavo [facility] [id number] Memoria 16:41:00 04:59:00 Services r Outpatient 03 l Imaging [facility] 2014-03-03 2014-03-03 Outpatient Cayden Fong [id number] 11:41:00 23:59:00 [id number] 01 Results Test Description Test Time Test Comments Results Result Comments Source SURGICAL 2021-09-21 11:13:00 Test Item Value Reference Range Interpretation Commvicky dennis SURGICAL RUN (test DATE: 09/21/21 [facility] - LAB PAGE 1 RUN TIME: 1113 Specimen Inquiry RUN USER: INTERFACE code = PATIENT SR) : JASON GOYAL LOC: ShilpaaRdha HENSON B U #: [id number] AGE/SX: 86/F ROOM: [facility] RE09/18/21[facility] DR: Iván Cowan MD : 35 BED: 1 DIS: STATUS: ADM IN TLOC: SPEC #: [id number] RECD: STATUS: ROLAND REDeidra #: [id number] BALDO: 09/18/21-1210 [facility] DR: Iván Cowan MD ENTERED: 08/26 SP TYPE: SURGICAL OTHR DR: Sam Omer MD ORDERED: [id number], 53485/2, ANATOMIC SPE C HISTOLOGY: TISSUE ID [id number] [...] opened to reveal green-yello w fecal material. Nursery Hand sections are submitted in cassettes A1 and A2 as follows: A1 - lou in; A2 -business office representative sections of dilated bowel- full thickness. The specimen also demonstratesth inning of the small bowel wall to a thickness of 0.1 cm. In these areas the mucosalfolds are slightl y flattened. No masses, lesions are identified. B. Received in formalin, labeled with paoe nt's name, medical record number and"rectosigmoid colon". It consists of a 20.4 cm length of rectu m-colon and attached softtissue. The rectal portion measures approximately 5.0 cm in katarzyna th. The specimen has an CONTINUED ON NEXT PAGE RUN DATE: 09/21/21 [facility] - LAB PAGE 2 RUN TIME: 1113 Specimen Inquiry RUN USER: INTERFACE SPEC #: [id number] PATIENT: JASON GOYAL #[id number] (Continued) ---- GROSS DESCRIPTION (Cont inued) [...] identified. Two unremarkable colorectal donuts arealso received. Nursery Hand sections are submitted as follows: B1 - proximal margin; B2- distal margin; B3 - business office representative section of me senteric margin and radial margin; B4 to B6- proximal serosal scar with diverticula; B7 - representa tive sections at middle area ofserosal fibrosis; B8 - business office representative sections at distal mural dis ruption; B9 and B10 -candidate lymph nodes; B11 - business office representative section from non-designated donuts; B12 to B14- additional soft tissue with possible lymph nodes. C. Received in formalin, lab eled with patient's name, medical record number and "foreignbody rectum". It consists of a 3. 0 x 1.5 x 0.9 cm portion of fibroadipose with embeddedstitches. Nursery Hand sections are submitted in cassette C. ASHLEY/araceli Technical component [facility] [facility], [facility], [address] MICROSCOPIC DESCRIPTION NEGATIVE FOR MALIGNANCY. PERFORMED AN D INCORPORATED INTO THE FINAL DIAGNOSIS. CLINICAL INFORMATION Diverticular stricture (per op note) Signed SIGNATURE ON FILE Steve Shell 09/21/21 1113 END OF REPORT BASIC METABOLIC [id number] 08:32:00 Test Item Value Reference Range Interpretation [...] New = CA) Reference Range Sep 2020 [id number] 08:32:00 Test Item Value Reference Range Interpretation Comments MAGNESIUM (test code = 1.3 mg/dL 1.6-2.6 L Pleas e note: New MAG) Reference Range Sep 2020 CBC W/AUTO [id number] 08:16:00 Test Item Value Reference Range Interpretation [...] 0.02 x10 3/uL 0.0-0.20 N RECOLLECTCBC W/MANUAL [id number] 05:55:00 Test Item Value Reference Range Interpretation [...] code NORMAL NORMAL = PLTMORPH) BASIC METABOLIC [id number] 05:04:00 Test Item Value Reference Range Interpretation [...] New = CA) Reference Range Sep 2020 [id number] 05:04:00 Test Item Value Reference Range Interpretation Comments MAGNESIUM (test code = 2.0 mg/dL 1.6-2.6 N Pleas e note: New MAG) Reference Range Sep 2020 CBC W/AUTO [id number] 04:41:00 Test Item Value Reference Range Interpretation [...] 0.01 x10 3/uL 0.0-0.20 N BASIC METABOLIC [id number] 04:31:00 Test Item Value Reference Range Interpretation [...] New = CA) Reference Range Sep 2020 [id number] 04:31:00 Test Item Value Reference Range Interpretation Comments MAGNESIUM (test code = 1.5 mg/dL 1.6-2.6 L Pleas e note: New MAG) Reference Range Sep 2020 Novel Coronavirus 2019 [id number] 14:55:00 Test Item Value Reference Range Interpretation [...] det ection of nucleic acids f rom [id number]-[id number] v irus and diagnosis of SA RS-CoV-2 virusinfection. It is an Emergency Use Authorization ( EUA) testauthorized by the U.S. FDA. First test? UnknownEmployed in Healthcare? UnknownSymptomatic as defined by CDC? UnknownHospitalizeddue to COVID? UnknownIn ICU due to COVID? UnknownResident in a congregate care setting? Unknown? NoAge at collection: Irene[place]ash[place]ott Coronavirus 2018 [id number] 14:55:00 Test Item Value Reference Range Interpretation [...] det ection of nucleic acids f rom [id number]-[id number] v irus and diagnosis of SA RS-CoV-2 virusinfection. It is an Emergency Use Authorization ( EUA) testauthorized by the U.S. FDA. First test? UnknownEmployed in Healthcare? UnknownSymptomatic as defined by CDC? UnknownHospitalizeddue to COVID? UnknownIn ICU due to COVID? UnknownResident in a congregate care setting? Unknown? NoAge at collection: YBASIC METABOLIC [id number] 11:15:00 Test Item Value Reference Range Interpretation [...] CA) Reference Range Sep 2020 CBC W/AUTO [id number] 10:57:00 Test Item Value Reference Range Interpretation [...] BA#) 0.05 x10 3/uL 0.0-0.20 N Gastrointestinal [id number] 02:35:09 Test Item Value Reference Interpretation Comments [...] Rotavirus PCR (test Not Detected code = 8917309) Salmonella PCR (test Not Detected code = [...] PCR Not Detected (test code = 7124) [facility] [id number] 02:35:09 Test Item Value Reference Interpretation Comments [...] Rotavirus PCR (test Not Detected code = 3373961) Salmonella PCR (test Not Detected code = [...] PCR Not Detected (test code = 7124) [facility] LAB [id number] 15:25:00 Test Item Value Reference Range Interpretation Comments Result 2 (Urine Culture) See Result Comment (test code = Result 2 (Urine Culture)) [facility] LAB [id number] 15:25:00 Test Item Value Reference Range Interpretation Comments Result 2 (Urine Culture) See Result Comment (test code = Result 2 (Urine Culture)) [facility] LAB [id number] 15:25:00 Test Item Value Reference Range Interpretation Comments Result 2 (Urine Culture) See Result Comment (test code = Result 2 (Urine Culture)) [facility], TXSuypcjpCOKDVXWKBA8759-06-10 14:36:00 Test Item Value Reference Range Interpretation Comments POC Activated Clotting Time (test code 186 s = POC Activated Clotting Time) [facility]uuufnxHKHAHYNWYX6304-37-11 14:36:00 Test Item Value Reference Range Interpretation Comments POC Activated Clotting Time (test code 186 s = POC Activated Clotting Time) [facility], [id number] 14:36:00 Test Item Value Reference Range Interpretation Comments POC Activated Clotting Time (test code 186 s = POC Activated Clotting Time) [facility] [id number] 10:47:00 Test Item Value Reference Range Interpretation Comments ABO/Rh (test code = ABO/Rh) O POS [facility] [id number] 10:47:00 Test Item Value Reference Range Interpretation Comments Antibody Scrn (test Positive (06/02/19 5:47 code = Antibody Scrn) AM) [facility] [id number] 10:47:00 Test Item Value Reference Range Interpretation Comments AB Int (test code = Non-specific IgG AB Int) Antibody [facility] [id number] 10:47:00 Test Item Value Reference Range Interpretation Comments PAUL Gel Int (test Positive (06/02/19 5:47 code = PAUL Gel Int) AM) [facility] [id number] 10:47:00 Test Item Value Reference Range Interpretation Comments C3 Int (test code = Negative (06/02/19 5:47 C3 Int) AM) [facility] [id number] 10:47:00 Test Item Value Reference Range Interpretation Comments Eluate Int (test code = Eluate Int) See Note [facility] [id number] 10:47:00 Test Item Value Reference Range Interpretation Comments Glucose Lvl (test code = Glucose Lvl) 102 70-99 [facility] [id number] 10:47:00 Test Item Value Reference Range Interpretation Comments BUN (test code = BUN) 20 7-22 [facility] [id number] 10:47:00 Test Item Value Reference Range Interpretation Comments Creatinine Lvl (test code = Creatinine 1.00 0.50-1.40 Lvl) [facility] [id number] 10:47:00 Test Item Value Reference Range Interpretation Comments Sodium Lvl (test code = Sodium Lvl) 143 135-145 [facility] [id number] 10:47:00 Test Item Value Reference Range Interpretation Comments Potassium Lvl (test code = Potassium 3.7 3.5-5.1 Lvl) [facility] [id number] 10:47:00 Test Item Value Reference Range Interpretation Comments Chloride Lvl (test code = Chloride Lvl) 105 95-109 [facility] [id number] 10:47:00 Test Item Value Reference Range Interpretation Comments CO2 (test code = CO2) 31 24-32 [facility] [id number] 10:47:00 Test Item Value Reference Range Interpretation Comments Calcium Lvl (test code = Calcium Lvl) 10.0 8.5-10.5 [facility]2019-10-09 10:47:00 Test Item Value Reference Range Interpretation Comments eGFR (test code = eGFR) 52 [facility]2019-10-09 10:47:00 Test Item Value Reference Range Interpretation Comments AGAP (test code = AGAP) 10.7 10.0-20.0 [facility]2019-10-09 10:47:00 Test Item Value Reference Range Interpretation Comments Magnesium Lvl (test code = Magnesium 2.1 1.8-2.4 Lvl) [facility]2019-10-09 10:47:00 Test Item Value Reference Range Interpretation Comments Phosphorus (test code = Phosphorus) 3.4 2.5-4.[address] [facility], TXRlyvulaMPJDZOKEDQ0724-01-19 10:47:00 Test Item Value Reference Range Interpretation Comments WBC (test code = WBC) 6.2 3.7-10.[address] [facility], TXZtbezanVZAWDPJECF6855-60-74 10:47:00 Test Item Value Reference Range Interpretation Comments RBC (test code = RBC) 4.17 4.20-5.[address] [facility], TXYwbpjvhDRQVOUFRCD2251-38-42 10:47:00 Test Item Value Reference Range Interpretation Comments Hgb (test code = Hgb) 12.5 12.0-16.[address] [facility], TXIzxmlnkLUINOWFUWC6075-82-19 10:47:00 Test Item Value Reference Range Interpretation Comments Hct (test code = Hct) 37.7 36.0-48.[address] [facility], TXYfloyadVYXRGDYLSL4887-75-60 10:47:00 Test Item Value Reference Range Interpretation Comments MCV (test code = MCV) 90.4 80.0-98.[address] [facility], TXOcymlalPSIFHGJTXT9562-25-48 10:47:00 Test Item Value Reference Range Interpretation Comments MCH (test code = MCH) 30.0 pg 27.0-31.[address] [facility], TXOtygddiGPPDFIBZGP0170-26-37 10:47:00 Test Item Value Reference Range Interpretation Comments MCHC (test code = MCHC) 33.2 32.0-36.[address] [facility], TXBgwddukAHASRQVHFF6943-41-14 10:47:00 Test Item Value Reference Range Interpretation Comments RDW (test code = RDW) 13.5 11.5-14.[address] [facility], TXNdmjwcdPPCKUWHONK2406-89-61 10:47:00 Test Item Value Reference Range Interpretation Comments Platelet (test code = Platelet) 288 133-[address] [facility], TXEprerefEGCMEEFMRV0404-73-90 10:47:00 Test Item Value Reference Range Interpretation Comments MPV (test code = MPV) 7.1 7.4-10.[address] [facility], TXAgwpcpqIBBMOZTAVV6719-43-94 10:47:00 Test Item Value Reference Range Interpretation Comments PT (test code = PT) 13.0 s 12.0-14.[address] [facility], TXIrklwnfOKUWGHFDOT5940-10-01 10:47:00 Test Item Value Reference Range Interpretation Comments PTT (test code = PTT) 29.2 s 22.9-35.[address] [facility], TXLfjphepUZHCPMXURY1037-08-50 10:47:00 Test Item Value Reference Range Interpretation Comments INR (test code = INR) 1.00 1 0.85-1.[address] [facility], TXVwsombpPTCLOWVNQH8611-31-66 10:47:00 Test Item Value Reference Range Interpretation Comments Segs (test code = Segs) 60.5 45.0-75.[address] [facility], TXNqwhypvYDFFCQKKEE2769-94-38 10:47:00 Test Item Value Reference Range Interpretation Comments Lymphocytes (test code = Lymphocytes) 26.2 20.0-40.[address] [facility], TXDpfggryNCMUSMYMQO9207-84-20 10:47:00 Test Item Value Reference Range Interpretation Comments Monocytes (test code = Monocytes) 8.7 2.0-12.[address] [facility], TXHulgxvzXIZYGZJLYG3989-89-92 10:47:00 Test Item Value Reference Range Interpretation Comments Eosinophils (test code = 4.0 See_Comment [A utomated message] The Eosinophils) system which ge nerated this result tra nsmitted reference range : <=4.0. The reference r robbie was not used to int erpret this result as normal/abnormal . [facility] [place], TXEopnbpdDQOKMFQYYW7164-05-85 10:47:00 Test Item Value Reference Range Interpretation Comments Basophils (test code = 0.6 See_Comment [Aut omated message] The Basophils) system which ge nerated this result tra nsmitted reference range : <=1.0. The reference r robbie was not used to int erpret this result as normal/abnormal . [place] 895639-10-09 10:47:00 Test Item Value Reference Range Interpretation Comments Neutrophils # (test code = Neutrophils 3.7 1.5-8.1 #) [facility], TXTjzfduxMDUDJEGPLH3222-57-97 10:47:00 Test Item Value Reference Range Interpretation Comments Lymphocytes # (test code = Lymphocytes 1.6 1.0-5.5 #) [facility], TXSixcigvZQHPJYDFVV1300-03-34 10:47:00 Test Item Value Reference Range Interpretation Comments Monocytes # (test code 0.5 See_Comment [Aut omated message] The = Monocytes #) system which generated this result tra nsmitted reference range : <=0.8. The reference r robbie was not used to int erpret this result as normal/abnormal . [facility], TXFzpjybgOAAMJYXFEI2195-95-19 10:47:00 Test Item Value Reference Range Interpretation Comments Eosinophils # (test code 0.3 See_Comment [A utomated message] The = Eosinophils #) system whic h generated this result tra nsmitted reference range : <=0.5. The reference r robbie was not used to int erpret this result as normal/abnormal . [facility] [id number] 10:47:00 Test Item Value Reference Range Interpretation Comments ABO/Rh (test code = ABO/Rh) O POS [facility] [id number] 10:47:00 Test Item Value Reference Range Interpretation Comments Antibody Scrn (test Positive (06/02/19 5:47 code = Antibody Scrn) AM) [facility] [id number] 10:47:00 Test Item Value Reference Range Interpretation Comments AB Int (test code = Non-specific IgG AB Int) Antibody [facility] [id number] 10:47:00 Test Item Value Reference Range Interpretation Comments PAUL Gel Int (test Positive (06/02/19 5:47 code = PAUL Gel Int) AM) [facility] [id number] 10:47:00 Test Item Value Reference Range Interpretation Comments C3 Int (test code = Negative (06/02/19 5:47 C3 Int) AM) [facility] [id number] 10:47:00 Test Item Value Reference Range Interpretation Comments Eluate Int (test code = Eluate Int) See Note [facility]2019-10-09 10:47:00 Test Item Value Reference Range Interpretation Comments Glucose Lvl (test code = Glucose Lvl) 102 70-99 [facility]2019-10-09 10:47:00 Test Item Value Reference Range Interpretation Comments BUN (test code = BUN) 20 7-22 [facility]2019-10-09 10:47:00 Test Item Value Reference Range Interpretation Comments Creatinine Lvl (test code = Creatinine 1.00 0.50-1.40 Lvl) [facility]2019-10-09 10:47:00 Test Item Value Reference Range Interpretation Comments Sodium Lvl (test code = Sodium Lvl) 143 135-145 [facility]2019-10-09 10:47:00 Test Item Value Reference Range Interpretation Comments Potassium Lvl (test code = Potassium 3.7 3.5-5.1 Lvl) [facility]2019-10-09 10:47:00 Test Item Value Reference Range Interpretation Comments Chloride Lvl (test code = Chloride Lvl) 105 95-109 [facility]2019-10-09 10:47:00 Test Item Value Reference Range Interpretation Comments CO2 (test code = CO2) 31 24-32 [facility]2019-10-09 10:47:00 Test Item Value Reference Range Interpretation Comments Calcium Lvl (test code = Calcium Lvl) 10.0 8.5-10.5 [facility]2019-10-09 10:47:00 Test Item Value Reference Range Interpretation Comments eGFR (test code = eGFR) 52 [facility]2019-10-09 10:47:00 Test Item Value Reference Range Interpretation Comments AGAP (test code = AGAP) 10.7 10.0-20.0 [facility]2019-10-09 10:47:00 Test Item Value Reference Range Interpretation Comments Magnesium Lvl (test code = Magnesium 2.1 1.8-2.4 Lvl) [facility]2019-10-09 10:47:00 Test Item Value Reference Range Interpretation Comments Phosphorus (test code = Phosphorus) 3.4 2.5-4.5 [facility]wscWHOPVLPZHJ0413-09-04 10:47:00 Test Item Value Reference Range Interpretation Comments WBC (test code = WBC) 6.2 3.7-10.[address] [facility] [place], TXJzshuyrNAHPCICIKV3565-51-13 10:47:00 Test Item Value Reference Range Interpretation Comments RBC (test code = RBC) 4.17 4.20-5.[address] [facility], TXWmdoigdGYKHVOINUU5156-62-95 10:47:00 Test Item Value Reference Range Interpretation Comments Hgb (test code = Hgb) 12.5 12.0-16.[address] [facility], TXSlrdmldHHNTBZUDMG2508-29-75 10:47:00 Test Item Value Reference Range Interpretation Comments Hct (test code = Hct) 37.7 36.0-48.[address] [facility], TXZyzxxydJVIYGFWNRU0894-56-40 10:47:00 Test Item Value Reference Range Interpretation Comments MCV (test code = MCV) 90.4 80.0-98.[address] [facility], TXDbhleyaQCIJVRVVKC4695-25-90 10:47:00 Test Item Value Reference Range Interpretation Comments MCH (test code = MCH) 30.0 pg 27.0-31.[address] [facility] [place], TXAocjekvFKMERAVTAG8874-68-67 10:47:00 Test Item Value Reference Range Interpretation Comments MCHC (test code = MCHC) 33.2 32.0-36.[address] [facility], TXDdlfmjlOQBYEXGQLN5704-29-70 10:47:00 Test Item Value Reference Range Interpretation Comments RDW (test code = RDW) 13.5 11.5-14.[address] [facility], TXCcalqmrHYIYIKFIBT0939-16-48 10:47:00 Test Item Value Reference Range Interpretation Comments Platelet (test code = Platelet) 288 133-[address] [facility] [place], TXTlximmiBKEDOLILYD8854-25-96 10:47:00 Test Item Value Reference Range Interpretation Comments MPV (test code = MPV) 7.1 7.4-10.[address] [facility], TXWjqpfzhJFHRQNTCDK2031-74-40 10:47:00 Test Item Value Reference Range Interpretation Comments PT (test code = PT) 13.0 s 12.0-14.[address] [facility], TXIqbftcvNTULCRXZQL4288-73-45 10:47:00 Test Item Value Reference Range Interpretation Comments PTT (test code = PTT) 29.2 s 22.9-35.[address] [facility], TXBseiqshEDSXYQMGPO1788-00-84 10:47:00 Test Item Value Reference Range Interpretation Comments INR (test code = INR) 1.00 1 0.85-1.[address] [facility] [place], TXQrsznopCUBBFJGIGX9052-69-39 10:47:00 Test Item Value Reference Range Interpretation Comments Segs (test code = Segs) 60.5 45.0-75.[address] [facility] [place], TXLmflexpDDMOYWLRCZ0553-97-56 10:47:00 Test Item Value Reference Range Interpretation Comments Lymphocytes (test code = Lymphocytes) 26.2 20.0-40.[address] [facility] [place], TXJrajhlrZSWXYLBMEX2822-12-11 10:47:00 Test Item Value Reference Range Interpretation Comments Monocytes (test code = Monocytes) 8.7 2.0-12.[address] [facility] [place], TXPbqykupDUAXCTIYQC3160-76-75 10:47:00 Test Item Value Reference Range Interpretation Comments Eosinophils (test code = 4.0 See_Comment [A utomated message] The Eosinophils) system which ge nerated this result tra nsmitted reference range : <=4.0. The reference r robbie was not used to int erpret this result as normal/abnormal . [facility] [place], TXBrrsyzrKDPXXFKCKU6768-67-36 10:47:00 Test Item Value Reference Range Interpretation Comments Basophils (test code = 0.6 See_Comment [Aut omated message] The Basophils) system which ge nerated this result tra nsmitted reference range : <=1.0. The reference r robbie was not used to int erpret this result as normal/abnormal . [facility] [place], TXVcygqqiWQWNDJEXAA1092-18-48 10:47:00 Test Item Value Reference Range Interpretation Comments Neutrophils # (test code = Neutrophils 3.7 1.5-8.1 #) [facility] [place], TXAufmlcoUTHIFODWQO0492-50-42 10:47:00 Test Item Value Reference Range Interpretation Comments Lymphocytes # (test code = Lymphocytes 1.6 1.0-5.5 #) [facility] [place], TXMzttvsnMWFZXPSKJO0928-39-79 10:47:00 Test Item Value Reference Range Interpretation Comments Monocytes # (test code 0.5 See_Comment [Aut omated message] The = Monocytes #) system which generated this result tra nsmitted reference range : <=0.8. The reference r robbie was not used to int erpret this result as normal/abnormal . [facility] [place], TXBwfmxyzZJWNICHPVR7608-75-83 10:47:00 Test Item Value Reference Range Interpretation Comments Eosinophils # (test code 0.3 See_Comment [A utomated message] The = Eosinophils #) system whic h generated this result tra nsmitted reference range : <=0.5. The reference r robbie was not used to int erpret this result as normal/abnormal . [facility] AIZVGWA3585-08-18 10:47:00 Test Item Value Reference Range Interpretation Comments ABO/Rh (test code = ABO/Rh) O POS [facility] KYJMGWK0962-90-32 10:47:00 Test Item Value Reference Range Interpretation Comments Antibody Scrn (test Positive (06/02/19 5:47 code = Antibody Scrn) AM) [facility] [facility] [id number] 10:47:00 Test Item Value Reference Range Interpretation Comments AB Int (test code = Non-specific IgG AB Int) Antibody [facility] [employer] [id number] 10:47:00 Test Item Value Reference Range Interpretation Comments PAUL Gel Int (test Positive (06/02/19 5:47 code = PAUL Gel Int) AM) [facility] [employer] [facility] [id number] 10:47:00 Test Item Value Reference Range Interpretation Comments C3 Int (test code = Negative (06/02/19 5:47 C3 Int) AM) [facility] [id number] 10:47:00 Test Item Value Reference Range Interpretation Comments Eluate Int (test code = Eluate Int) See Note [facility] CenterGreeng[facility] Technologies [id number] 10:47:00 Test Item Value Reference Range Interpretation Comments Glucose Lvl (test code = Glucose Lvl) 102 70-99 [facility] [employer] [id number] 10:47:00 Test Item Value Reference Range Interpretation Comments BUN (test code = BUN) 20 7-22 [facility] [employer] [id number] 10:47:00 Test Item Value Reference Range Interpretation Comments Creatinine Lvl (test code = Creatinine 1.00 0.50-1.40 Lvl) [facility] [employer] [id number] 10:47:00 Test Item Value Reference Range Interpretation Comments Sodium Lvl (test code = Sodium Lvl) 143 135-145 [facility] [employer] [id number] 10:47:00 Test Item Value Reference Range Interpretation Comments Potassium Lvl (test code = Potassium 3.7 3.5-5.1 Lvl) [facility] [employer] [id number] 10:47:00 Test Item Value Reference Range Interpretation Comments Chloride Lvl (test code = Chloride Lvl) 105 95-109 [facility]2019-10-09 10:47:00 Test Item Value Reference Range Interpretation Comments CO2 (test code = CO2) 31 24-32 [facility]2019-10-09 10:47:00 Test Item Value Reference Range Interpretation Comments Calcium Lvl (test code = Calcium Lvl) 10.0 8.5-10.5 [facility]2019-10-09 10:47:00 Test Item Value Reference Range Interpretation Comments eGFR (test code = eGFR) 52 [facility]2019-10-09 10:47:00 Test Item Value Reference Range Interpretation Comments AGAP (test code = AGAP) 10.7 10.0-20.0 [facility]2019-10-09 10:47:00 Test Item Value Reference Range Interpretation Comments Magnesium Lvl (test code = Magnesium 2.1 1.8-2.4 Lvl) [facility]2019-10-09 10:47:00 Test Item Value Reference Range Interpretation Comments Phosphorus (test code = Phosphorus) 3.4 2.5-4.[address] [facility] [place], TXVnwjbnzFOVIKGONMZ1886-53-03 10:47:00 Test Item Value Reference Range Interpretation Comments WBC (test code = WBC) 6.2 3.7-10.[address] [facility] [place], TXSapjczmSYTRZINMFV8523-38-21 10:47:00 Test Item Value Reference Range Interpretation Comments RBC (test code = RBC) 4.17 4.20-5.[address] [facility] [place], TXSwmwfoeBVFKNKZVFS7741-95-44 10:47:00 Test Item Value Reference Range Interpretation Comments Hgb (test code = Hgb) 12.5 12.0-16.[address] [facility] [place], TXTneqwmaUDBEZDFYNA9023-44-50 10:47:00 Test Item Value Reference Range Interpretation Comments Hct (test code = Hct) 37.7 36.0-48.[address] [facility] [place], TXFetsdcqBUQNVRTYFI2626-21-84 10:47:00 Test Item Value Reference Range Interpretation Comments MCV (test code = MCV) 90.4 80.0-98.[address] [facility] [place], TXMoycdqjPLYPWKRDKK2047-45-72 10:47:00 Test Item Value Reference Range Interpretation Comments MCH (test code = MCH) 30.0 pg 27.0-31.[address] [facility] [place], TXConrkcdLEGYGIHSGM3218-60-08 10:47:00 Test Item Value Reference Range Interpretation Comments MCHC (test code = MCHC) 33.2 32.0-36.[address] [facility] [place], TXUyxpgaeGCZTLUNUAM7733-76-92 10:47:00 Test Item Value Reference Range Interpretation Comments RDW (test code = RDW) 13.5 11.5-14.[address] [facility] [place], TXPnryjhjXMNYWBDQFI8304-81-88 10:47:00 Test Item Value Reference Range Interpretation Comments Platelet (test code = Platelet) 288 133-[address] [facility] [place], TXEkndukoSEIPELJIJJ4057-28-00 10:47:00 Test Item Value Reference Range Interpretation Comments MPV (test code = MPV) 7.1 7.4-10.[address] [facility] [place], TXCecczurFJZADMWGRC7480-13-48 10:47:00 Test Item Value Reference Range Interpretation Comments PT (test code = PT) 13.0 s 12.0-14.[address] [facility] [place], TXDgjnsfmLLBYOVILVT6822-62-26 10:47:00 Test Item Value Reference Range Interpretation Comments PTT (test code = PTT) 29.2 s 22.9-35.[address] [facility] [place], TXItuihuhOJIHXBTFMH8462-79-14 10:47:00 Test Item Value Reference Range Interpretation Comments INR (test code = INR) 1.00 1 0.85-1.[address] [facility] [place], TXUhdkemgDFLOTJINLQ4514-22-60 10:47:00 Test Item Value Reference Range Interpretation Comments Segs (test code = Segs) 60.5 45.0-75.[address] [facility] [place], TXWyyjqrtUDXHHHRDYV2185-02-06 10:47:00 Test Item Value Reference Range Interpretation Comments Lymphocytes (test code = Lymphocytes) 26.2 20.0-40.[address] [facility] [place], TXVdrhbrrHBTTBWQUTI1246-19-18 10:47:00 Test Item Value Reference Range Interpretation Comments Monocytes (test code = Monocytes) 8.7 2.0-12.[address] [facility] [place], TXKhvtfbzNKHTVKFNKG2484-11-99 10:47:00 Test Item Value Reference Range Interpretation Comments Eosinophils (test code = 4.0 See_Comment [A utomated message] The Eosinophils) system which ge nerated this result tra nsmitted reference range : <=4.0. The reference r robbie was not used to int erpret this result as normal/abnormal . [facility] [place], TXTfapmfzWTHRKYRQQQ3168-18-54 10:47:00 Test Item Value Reference Range Interpretation Comments Basophils (test code = 0.6 See_Comment [Aut omated message] The Basophils) system which ge nerated this result tra nsmitted reference range : <=1.0. The reference r robbie was not used to int erpret this result as normal/abnormal . [facility] [place], TXRoxaeanIFXSTUAWQU6336-90-08 10:47:00 Test Item Value Reference Range Interpretation Comments Neutrophils # (test code = Neutrophils 3.7 1.5-8.1 #) [facility] [place], TXOlftflbGXECOQPKGS9441-71-70 10:47:00 Test Item Value Reference Range Interpretation Comments Lymphocytes # (test code = Lymphocytes 1.6 1.0-5.5 #) [facility] [place], TXFgnkusvBJEOBSGOLR8181-43-16 10:47:00 Test Item Value Reference Range Interpretation Comments Monocytes # (test code 0.5 See_Comment [Aut omated message] The = Monocytes #) system which generated this result tra nsmitted reference range : <=0.8. The reference r robbie was not used to int erpret this result as normal/abnormal . [facility] [place], TXQobxcjpCFSDFYQJEW5525-14-48 10:47:00 Test Item Value Reference Range Interpretation Comments Eosinophils # (test code 0.3 See_Comment [A utomated message] The = Eosinophils #) system whic h generated this result tra nsmitted reference range : <=0.5. The reference r robbie was not used to int erpret this result as normal/abnormal . [facility]2017-03-07 11:37:00 Test Item Value Reference Range Interpretation Comments eGFR (test code = eGFR) 48 [facility]2017-03-07 11:37:00 Test Item Value Reference Range Interpretation Comments Creatinine Lvl (test code = Creatinine 1.08 0.50-1.40 Lvl) [facility] [place], TXYsrfjuhXUACZRNONL0544-97-22 11:37:00 Test Item Value Reference Range Interpretation Comments Hgb (test code = Hgb) 12.6 12.0-16.0 [facility]2017-03-07 11:37:00 Test Item Value Reference Range Interpretation Comments eGFR (test code = eGFR) 48 [facility]2017-03-07 11:37:00 Test Item Value Reference Range Interpretation Comments Creatinine Lvl (test code = Creatinine 1.08 0.50-1.40 Lvl) [facility] [place], TXOywuysyEYJBTYAVCG6450-93-84 11:37:00 Test Item Value Reference Range Interpretation Comments Hgb (test code = Hgb) 12.6 12.0-16.0 [facility]2017-03-07 11:37:00 Test Item Value Reference Range Interpretation Comments eGFR (test code = eGFR) 48 [facility]2017-03-07 11:37:00 Test Item Value Reference Range Interpretation Comments Creatinine Lvl (test code = Creatinine 1.08 0.50-1.40 Lvl) [facility] [place], TXWkdgkqwGWMMORYNSF4283-11-36 11:37:00 Test Item Value Reference Range Interpretation Comments Hgb (test code = Hgb) 12.6 12.0-16.[address] [facility] [place], TXLckkqmlMOHYDNMATX4127-51-50 00:09:00 Test Item Value Reference Range Interpretation Comments POC Activated Clotting Time (test code 198 s = POC Activated Clotting Time) [facility] [place], TXIbfuoojERNPYUQLCV4921-26-92 00:09:00 Test Item Value Reference Range Interpretation Comments POC Activated Clotting Time (test code 198 s = POC Activated Clotting Time) [facility] [place], TXGvsaymzLJUFHHFYEW7373-51-53 00:09:00 Test Item Value Reference Range Interpretation Comments POC Activated Clotting Time (test code 198 s = POC Activated Clotting Time) [facility] [place], TXMoxnpaeVEBDUWHGED6681-23-93 22:02:00 Test Item Value Reference Range Interpretation Comments POC Activated Clotting Time (test code 268 s = POC Activated Clotting Time) [facility] [place], TXVmuigdkZVCBTNVOEG0912-67-75 22:02:00 Test Item Value Reference Range Interpretation Comments POC Activated Clotting Time (test code 268 s = POC Activated Clotting Time) [facility] [place], TXWmkxbcgOCLVMNBGDP7309-24-91 22:02:00 Test Item Value Reference Range Interpretation Comments POC Activated Clotting Time (test code 268 s = POC Activated Clotting Time) [facility] [id number] 18:25:00 Test Item Value Reference Range Interpretation Comments ABO/Rh (test code = ABO/Rh) O POS [facility] BANK [id number] 18:25:00 Test Item Value Reference Range Interpretation Comments Antibody Scrn (test Negative (10/28/16 12:25 code = Antibody Scrn) PM) [facility] [id number] 18:25:00 Test Item Value Reference Range Interpretation Comments Magnesium Lvl (test code = Magnesium 1.9 1.8-2.4 Lvl) [facility]LLYIQJERGQHU9286-72-26 18:25:00 Test Item Value Reference Range Interpretation Comments Potassium Lvl (test code = Potassium 4.4 3.5-5.1 Lvl) [facility] HospitalFrolwgnWLZVUBCCXMGI6597-78-94 18:25:00 Test Item Value Reference Range Interpretation Comments Calcium Lvl (test code = Calcium Lvl) 9.4 8.5-10.5 [facility] HospitalCtvnzvpKJPLCNVCWPBR8280-04-80 18:25:00 Test Item Value Reference Range Interpretation Comments CO2 (test code = CO2) 31 24-32 [facility] HospitalMrzreczZRDDPUOHHJKE0186-61-85 18:25:00 Test Item Value Reference Range Interpretation Comments Chloride Lvl (test code = Chloride Lvl) 103 95-109 [facility] HospitalPemmlzwWVVPHYLOKBZC7368-40-12 18:25:00 Test Item Value Reference Range Interpretation Comments eGFR (test code = eGFR) 55 [facility] HospitalItwgjduLUYEJTKSOCVR5588-07-15 18:25:00 Test Item Value Reference Range Interpretation Comments Sodium Lvl (test code = Sodium Lvl) 141 135-145 [facility] HospitalXfkzztbPHFAXTILOXKO0454-50-80 18:25:00 Test Item Value Reference Range Interpretation Comments Creatinine Lvl (test code = Creatinine 0.97 0.50-1.40 Lvl) [facility] HospitalTsvfavyVTYBJYYXUNUA6969-17-00 18:25:00 Test Item Value Reference Range Interpretation Comments BUN (test code = BUN) 24 7-22 [facility] HospitalUizfemgUFNOEQCPBNSQ6330-09-94 18:25:00 Test Item Value Reference Range Interpretation Comments Glucose Lvl (test code = Glucose Lvl) 108 70-99 [facility] HospitalYxnzdqfVQAZYZCNCKWB0513-66-65 18:25:00 Test Item Value Reference Range Interpretation Comments AGAP (test code = AGAP) 11.4 10.0-20.[address] [facility] [place], TXKimrcynJGMKDXYEMZ7292-59-20 18:25:00 Test Item Value Reference Range Interpretation Comments INR (test code = INR) 1.10 0.85-1.[address] [facility] [place], TXQlhuggzIDLJJSUMJU5817-04-26 18:25:00 Test Item Value Reference Range Interpretation Comments PT (test code = PT) 14.4 s 12.0-14.[address] [facility] [place], TXOjgsvrqAINIXTBJZE7526-32-47 18:25:00 Test Item Value Reference Range Interpretation Comments PTT (test code = PTT) 30.3 s 22.9-35.[address] [facility] [place], TXTlljfcaTYJWELLHAL6414-05-55 18:25:00 Test Item Value Reference Range Interpretation Comments Hgb (test code = Hgb) 13.1 12.0-16.[address] [facility] [place], TXXnyjdpzPTPWJWVSCD2591-64-07 18:25:00 Test Item Value Reference Range Interpretation Comments RBC (test code = RBC) 4.51 4.20-5.[address] [facility] [place], TXNbocophCEPXVYJDQT1906-09-23 18:25:00 Test Item Value Reference Range Interpretation Comments WBC (test code = WBC) 5.4 3.7-10.[address] [facility] [place], TXPdgbnjdLHZUXXGTFK5330-63-50 18:25:00 Test Item Value Reference Range Interpretation Comments MPV (test code = MPV) 7.2 7.4-10.[address] [facility] [place], TXCesqjnuAYNMPRUMCO7071-89-31 18:25:00 Test Item Value Reference Range Interpretation Comments MCHC (test code = MCHC) 33.0 32.0-36.[address] [facility] [place], TXHodlbglVSTPZISXBO2602-48-15 18:25:00 Test Item Value Reference Range Interpretation Comments RDW (test code = RDW) 14.0 11.5-14.[address] [facility] [place], TXPtqimxbBXXVTMJOHF0033-56-66 18:25:00 Test Item Value Reference Range Interpretation Comments Platelet (test code = Platelet) 278 133-[address] [facility] [place], TXVkdklfhWSVPBIHOND0396-41-06 18:25:00 Test Item Value Reference Range Interpretation Comments MCH (test code = MCH) 29.0 pg 27.0-31.[address] [facility] [place], TXFnmvyxbFHDOWDXWVN9936-93-89 18:25:00 Test Item Value Reference Range Interpretation Comments MCV (test code = MCV) 87.9 80.0-98.[address] [facility] [place], TXLfzzuxjQUEGIHQAUM6220-73-44 18:25:00 Test Item Value Reference Range Interpretation Comments Hct (test code = Hct) 39.7 36.0-48.[address] [facility] [place], TXXqfsrszODRQSKNAHX9878-92-58 18:25:00 Test Item Value Reference Range Interpretation Comments Eosinophils (test code = 2.2 See_Comment [A utomated message] The Eosinophils) system which ge nerated this result tra nsmitted reference range : <=4.0. The reference r robbie was not used to int erpret this result as normal/abnormal . [facility] [place], TXBszupvmITZAOHAHUE5242-14-03 18:25:00 Test Item Value Reference Range Interpretation Comments Segs-Bands # (test code = Segs-Bands #) 2.8 1.5-8.[address] [facility] [place], TXPmcewnwDLXLEVUWCD3135-38-34 18:25:00 Test Item Value Reference Range Interpretation Comments Basophils (test code = 0.9 See_Comment [Aut omated message] The Basophils) system which ge nerated this result tra nsmitted reference range : <=1.0. The reference r robbie was not used to int erpret this result as normal/abnormal . [facility] [place], TXMnnsdywNHFARVRHAW3100-47-18 18:25:00 Test Item Value Reference Range Interpretation Comments Lymphocytes # (test code = Lymphocytes 2.1 1.0-5.5 #) [facility] [place], TXWuophplMPDNXDPIDW8515-32-49 18:25:00 Test Item Value Reference Range Interpretation Comments Segs (test code = Segs) 52.3 45.0-75.[address] [facility] [place], TXZmluiwiHTWPSIUUWE1917-75-20 18:25:00 Test Item Value Reference Range Interpretation Comments Lymphocytes (test code = Lymphocytes) 38.0 20.0-40.[address] [facility] [place], TXGaufokmBFYIQEIJBO6600-43-59 18:25:00 Test Item Value Reference Range Interpretation Comments Monocytes (test code = Monocytes) 6.6 2.0-12.[address] [facility] [place], TXPtmuekeBEWXTXTULL0862-63-38 18:25:00 Test Item Value Reference Range Interpretation Comments Basophils # (test code 0.1 See_Comment [Aut omated message] The = Basophils #) system which generated this result tra nsmitted reference range : <=0.2. The reference r robbie was not used to int erpret this result as normal/abnormal . [facility] [place], TXRthnnopQEOPKIQLSM6594-09-15 18:25:00 Test Item Value Reference Range Interpretation Comments Eosinophils # (test code 0.1 See_Comment [A utomated message] The = Eosinophils #) system whic h generated this result tra nsmitted reference range : <=0.5. The reference r robbie was not used to int erpret this result as normal/abnormal . [facility] [place], TXIgrxpwmGXYFZMBKZU5549-87-27 18:25:00 Test Item Value Reference Range Interpretation Comments Monocytes # (test code 0.4 See_Comment [Aut omated message] The = Monocytes #) system which generated this result tra nsmitted reference range : <=0.8. The reference r robbie was not used to int erpret this result as normal/abnormal . [facility] THBQDSH7093-72-86 18:25:00 Test Item Value Reference Range Interpretation Comments ABO/Rh (test code = ABO/Rh) O POS [facility] FKAZJUZ8958-95-00 18:25:00 Test Item Value Reference Range Interpretation Comments Antibody Scrn (test Negative (10/28/16 12:25 code = Antibody Scrn) PM) [facility] VOZWY5596-97-28 18:25:00 Test Item Value Reference Range Interpretation Comments Magnesium Lvl (test code = Magnesium 1.9 1.8-2.4 Lvl) [facility] HospitalCjdgpnwPOLPXORSHCSE3750-80-87 18:25:00 Test Item Value Reference Range Interpretation Comments Potassium Lvl (test code = Potassium 4.4 3.5-5.1 Lvl) [facility] HospitalVyjoaaaBHPERCPIKTIL2555-81-47 18:25:00 Test Item Value Reference Range Interpretation Comments Calcium Lvl (test code = Calcium Lvl) 9.4 8.5-10.5 [facility] HospitalPtdknrdECUXEMNRAUVA7772-68-26 18:25:00 Test Item Value Reference Range Interpretation Comments CO2 (test code = CO2) 31 24-32 [facility] HospitalYasiqgyLTAESSDVSUHH6700-56-44 18:25:00 Test Item Value Reference Range Interpretation Comments Chloride Lvl (test code = Chloride Lvl) 103 95-109 [facility] HospitalUlpbezaLCZSUFROGMOJ4458-97-56 18:25:00 Test Item Value Reference Range Interpretation Comments eGFR (test code = eGFR) 55 [facility] HospitalWshitnoLEDSEJDMGKTM8902-28-11 18:25:00 Test Item Value Reference Range Interpretation Comments Sodium Lvl (test code = Sodium Lvl) 141 135-145 [facility] HospitalQfxaixdTEPQLRZMUQLF7878-56-44 18:25:00 Test Item Value Reference Range Interpretation Comments Creatinine Lvl (test code = Creatinine 0.97 0.50-1.40 Lvl) [facility] HospitalFfnhrgbWGAIOIAIDXHC9737-06-73 18:25:00 Test Item Value Reference Range Interpretation Comments BUN (test code = BUN) 24 7-22 [facility] HospitalSeufbodPAWERTLBCMYV1277-46-08 18:25:00 Test Item Value Reference Range Interpretation Comments Glucose Lvl (test code = Glucose Lvl) 108 70-99 [facility] HospitalYeanhdrRTVGJWJQKDIX6129-99-01 18:25:00 Test Item Value Reference Range Interpretation Comments AGAP (test code = AGAP) 11.4 10.0-20.[address] [facility] [place], TXUjkxxcuHTQUQSBUUL1986-52-75 18:25:00 Test Item Value Reference Range Interpretation Comments INR (test code = INR) 1.10 0.85-1.[address] [facility] [place], TXHqqfloaEEMGTHCSCD5108-76-74 18:25:00 Test Item Value Reference Range Interpretation Comments PT (test code = PT) 14.4 s 12.0-14.[address] [facility] [place], TXBaowrkcDADDENXCPW2442-95-33 18:25:00 Test Item Value Reference Range Interpretation Comments PTT (test code = PTT) 30.3 s 22.9-35.[address] [facility] [place], TXQgkjoxsNNUUDVILAF7298-26-17 18:25:00 Test Item Value Reference Range Interpretation Comments Hgb (test code = Hgb) 13.1 12.0-16.[address] [facility] [place], TXLqbmlqeZLAPAQVHXG8943-54-84 18:25:00 Test Item Value Reference Range Interpretation Comments RBC (test code = RBC) 4.51 4.20-5.[address] [facility] [place], TXQjodcmaITBGMOIPNV6307-38-44 18:25:00 Test Item Value Reference Range Interpretation Comments WBC (test code = WBC) 5.4 3.7-10.[address] [facility] [place], TXZxjbmtkOWFYWIVKXE8774-70-46 18:25:00 Test Item Value Reference Range Interpretation Comments MPV (test code = MPV) 7.2 7.4-10.[address] [facility] [place], TXAmrizusRUSNCFMNGF7641-68-14 18:25:00 Test Item Value Reference Range Interpretation Comments MCHC (test code = MCHC) 33.0 32.0-36.[address] [facility] [place], TXQykoaaoMOHAUMOWZJ4158-23-30 18:25:00 Test Item Value Reference Range Interpretation Comments RDW (test code = RDW) 14.0 11.5-14.[address] [facility] [place], TXRljdtpeSBLQPGPVRR4320-22-05 18:25:00 Test Item Value Reference Range Interpretation Comments Platelet (test code = Platelet) 278 133-[address] [facility] [place], TXFndjfvlIVMRPEWKGL8191-34-33 18:25:00 Test Item Value Reference Range Interpretation Comments MCH (test code = MCH) 29.0 pg 27.0-31.[address] [facility] [place], TXWpcgfywUHPPGNOZYF4762-93-95 18:25:00 Test Item Value Reference Range Interpretation Comments MCV (test code = MCV) 87.9 80.0-98.[address] [facility] [place], TXRcrnxppHKWKYIDYPG1236-82-94 18:25:00 Test Item Value Reference Range Interpretation Comments Hct (test code = Hct) 39.7 36.0-48.[address] [facility] [place], TXDiqzjkvLCEVSURNGD1472-55-03 18:25:00 Test Item Value Reference Range Interpretation Comments Eosinophils (test code = 2.2 See_Comment [A utomated message] The Eosinophils) system which ge nerated this result tra nsmitted reference range : <=4.0. The reference r robbie was not used to int erpret this result as normal/abnormal . [facility] [place], TXZeaanqfUBTXGJUGLQ5559-43-49 18:25:00 Test Item Value Reference Range Interpretation Comments Segs-Bands # (test code = Segs-Bands #) 2.8 1.5-8.[address] [facility] [place], TXGwiwxnhCCOYQVGISF5941-46-99 18:25:00 Test Item Value Reference Range Interpretation Comments Basophils (test code = 0.9 See_Comment [Aut omated message] The Basophils) system which ge nerated this result tra nsmitted reference range : <=1.0. The reference r robbie was not used to int erpret this result as normal/abnormal . [facility] [place], TXEcevpncKOZYVAVMTF4335-03-31 18:25:00 Test Item Value Reference Range Interpretation Comments Lymphocytes # (test code = Lymphocytes 2.1 1.0-5.5 #) [facility] [place], TXIqifurmKROQIFHIIK3467-51-65 18:25:00 Test Item Value Reference Range Interpretation Comments Segs (test code = Segs) 52.3 45.0-75.[address] [facility] [place], TXHnshldwOJBWFCNEPU8453-34-26 18:25:00 Test Item Value Reference Range Interpretation Comments Lymphocytes (test code = Lymphocytes) 38.0 20.0-40.[address] [facility] [place], TXHrxwvpyEPMFSVNGAA9440-98-34 18:25:00 Test Item Value Reference Range Interpretation Comments Monocytes (test code = Monocytes) 6.6 2.0-12.[address] [facility] [place], TXCqsstgiLAMNNKTPWI1011-97-54 18:25:00 Test Item Value Reference Range Interpretation Comments Basophils # (test code 0.1 See_Comment [Aut omated message] The = Basophils #) system which generated this result tra nsmitted reference range : <=0.2. The reference r robbie was not used to int erpret this result as normal/abnormal . [facility] [place], TXGivhothMBTVADOABM3663-07-40 18:25:00 Test Item Value Reference Range Interpretation Comments Eosinophils # (test code 0.1 See_Comment [A utomated message] The = Eosinophils #) system whic h generated this result tra nsmitted reference range : <=0.5. The reference r robbie was not used to int erpret this result as normal/abnormal . [facility] [place], TXXvoftxsHUQQGIXYSJ4842-53-61 18:25:00 Test Item Value Reference Range Interpretation Comments Monocytes # (test code 0.4 See_Comment [Aut omated message] The = Monocytes #) system which generated this result tra nsmitted reference range : <=0.8. The reference r robbie was not used to int erpret this result as normal/abnormal . [facility] [id number] 18:25:00 Test Item Value Reference Range Interpretation Comments ABO/Rh (test code = ABO/Rh) O POS [facility] [id number] 18:25:00 Test Item Value Reference Range Interpretation Comments Antibody Scrn (test Negative (10/28/16 12:25 code = Antibody Scrn) PM) [facility] [id number] 18:25:00 Test Item Value Reference Range Interpretation Comments Magnesium Lvl (test code = Magnesium 1.9 1.8-2.4 Lvl) [facility]GpmpswhJNULINPCENNJ6734-46-79 18:25:00 Test Item Value Reference Range Interpretation Comments Potassium Lvl (test code = Potassium 4.4 3.5-5.1 Lvl) [facility] HospitalDygslfeJAZHZWZCNXLN2441-02-62 18:25:00 Test Item Value Reference Range Interpretation Comments Calcium Lvl (test code = Calcium Lvl) 9.4 8.5-10.5 [facility] HospitalNkxqnriPQXZZAENILSB5962-10-00 18:25:00 Test Item Value Reference Range Interpretation Comments CO2 (test code = CO2) 31 24-32 [facility] HospitalCepnvwlIILJABZRDOOW5100-35-28 18:25:00 Test Item Value Reference Range Interpretation Comments Chloride Lvl (test code = Chloride Lvl) 103 95-109 [facility] HospitalZlbqpqkHWIBIGROKHZF6260-85-63 18:25:00 Test Item Value Reference Range Interpretation Comments eGFR (test code = eGFR) 55 [facility] HospitalOmjvepjJSPYJECXLQHS4856-76-97 18:25:00 Test Item Value Reference Range Interpretation Comments Sodium Lvl (test code = Sodium Lvl) 141 135-145 [facility] HospitalEnwrpqjSYGDABIIBDQV6005-64-15 18:25:00 Test Item Value Reference Range Interpretation Comments Creatinine Lvl (test code = Creatinine 0.97 0.50-1.40 Lvl) [facility] HospitalDkkryjoXDGIFFUZBISO4314-44-46 18:25:00 Test Item Value Reference Range Interpretation Comments BUN (test code = BUN) 24 7-22 [facility] HospitalOqptxseLHUEYTPDINXV1404-46-41 18:25:00 Test Item Value Reference Range Interpretation Comments Glucose Lvl (test code = Glucose Lvl) 108 70-99 [facility] HospitalTgfmgbfGBSWYSLVUMSF3492-76-97 18:25:00 Test Item Value Reference Range Interpretation Comments AGAP (test code = AGAP) 11.4 10.0-20.[address] [facility] [place], TXMzjkuicTDKZFKBWAU3740-82-02 18:25:00 Test Item Value Reference Range Interpretation Comments INR (test code = INR) 1.10 0.85-1.[address] [facility] [place], TXUqahshrDUXBGQONLJ2585-35-87 18:25:00 Test Item Value Reference Range Interpretation Comments PT (test code = PT) 14.4 s 12.0-14.[address] [facility] [place], TXEoxmpjtFVETJMRAUV7974-96-66 18:25:00 Test Item Value Reference Range Interpretation Comments PTT (test code = PTT) 30.3 s 22.9-35.[address] [facility] [place], TXNriaujaAONAMDFSML5711-64-37 18:25:00 Test Item Value Reference Range Interpretation Comments Hgb (test code = Hgb) 13.1 12.0-16.[address] [facility] [place], TXLeilueyGVHRXFRBZS9831-34-54 18:25:00 Test Item Value Reference Range Interpretation Comments RBC (test code = RBC) 4.51 4.20-5.[address] [facility] [place], TXXgvvpshMQHZXLATKF2770-51-43 18:25:00 Test Item Value Reference Range Interpretation Comments WBC (test code = WBC) 5.4 3.7-10.[address] [facility] [place], TXWggtkbkITMGIKDNMQ7548-33-22 18:25:00 Test Item Value Reference Range Interpretation Comments MPV (test code = MPV) 7.2 7.4-10.[address] [facility] [place], TXAezumupFHLQJGRREX7691-50-38 18:25:00 Test Item Value Reference Range Interpretation Comments MCHC (test code = MCHC) 33.0 32.0-36.[address] [facility] [place], TXUuklcoqILWAPEWTUJ3585-92-39 18:25:00 Test Item Value Reference Range Interpretation Comments RDW (test code = RDW) 14.0 11.5-14.[address] [facility] [place], TXTaucujyELCPKLKYHZ8203-98-14 18:25:00 Test Item Value Reference Range Interpretation Comments Platelet (test code = Platelet) 278 133-[address] [facility] [place], TXQjljxhnIZLTADCRKM6058-31-26 18:25:00 Test Item Value Reference Range Interpretation Comments MCH (test code = MCH) 29.0 pg 27.0-31.[address] [facility] [place], TXUjwcbqcXBVXTZHUZE7312-64-65 18:25:00 Test Item Value Reference Range Interpretation Comments MCV (test code = MCV) 87.9 80.0-98.[address] [facility] [place], TXTkcmzxuFFTXUAJXNA1992-65-58 18:25:00 Test Item Value Reference Range Interpretation Comments Hct (test code = Hct) 39.7 36.0-48.[address] [facility] [place], TXFlcaowaPJYHMALNFY6182-54-07 18:25:00 Test Item Value Reference Range Interpretation Comments Eosinophils (test code = 2.2 See_Comment [A utomated message] The Eosinophils) system which ge nerated this result tra nsmitted reference range : <=4.0. The reference r robbie was not used to int erpret this result as normal/abnormal . [facility] [place], TXCqpthrvBZMKIXSWCA5711-83-38 18:25:00 Test Item Value Reference Range Interpretation Comments Segs-Bands # (test code = Segs-Bands #) 2.8 1.5-8.[address] [facility] [place], TXIlaczdxKOKWWFZUCT6219-28-59 18:25:00 Test Item Value Reference Range Interpretation Comments Basophils (test code = 0.9 See_Comment [Aut omated message] The Basophils) system which ge nerated this result tra nsmitted reference range : <=1.0. The reference r robbie was not used to int erpret this result as normal/abnormal . [facility] [place], TXHkmhitfVUZHANWETJ1250-74-79 18:25:00 Test Item Value Reference Range Interpretation Comments Lymphocytes # (test code = Lymphocytes 2.1 1.0-5.5 #) [facility] [place], TXSmacunqJMFCNAXIVS4292-04-05 18:25:00 Test Item Value Reference Range Interpretation Comments Segs (test code = Segs) 52.3 45.0-75.[address] [facility] [place], TXQvocsryXTIYWAXAJJ7307-08-87 18:25:00 Test Item Value Reference Range Interpretation Comments Lymphocytes (test code = Lymphocytes) 38.0 20.0-40.[address] [facility] [place], TXPxurejjZBKUUNAINY1693-16-15 18:25:00 Test Item Value Reference Range Interpretation Comments Monocytes (test code = Monocytes) 6.6 2.0-12.[address] [facility] [place], TXEbkuqwcMOLKROKGSH4854-74-13 18:25:00 Test Item Value Reference Range Interpretation Comments Basophils # (test code 0.1 See_Comment [Aut omated message] The = Basophils #) system which generated this result tra nsmitted reference range : <=0.2. The reference r robbie was not used to int erpret this result as normal/abnormal . [facility] [place], TXGrmakjeSXMQJWLZQS5629-91-53 18:25:00 Test Item Value Reference Range Interpretation Comments Eosinophils # (test code 0.1 See_Comment [A utomated message] The = Eosinophils #) system whic h generated this result tra nsmitted reference range : <=0.5. The reference r robbie was not used to int erpret this result as normal/abnormal . [facility] [place], TXXiseocoBPIDDLKKCS8227-61-34 18:25:00 Test Item Value Reference Range Interpretation Comments Monocytes # (test code 0.4 See_Comment [Aut omated message] The = Monocytes #) system which generated this result tra nsmitted reference range : <=0.8. The reference r robbie was not used to int erpret this result as normal/abnormal . [facility] CLSJO0732-12-19 08:58:00 Test Item Value Reference Range Interpretation Comments Phosphorus (test code = Phosphorus) 2.9 2.5-4.5 [facility] [id number] 08:58:00 Test Item Value Reference Range Interpretation Comments Magnesium Lvl (test code = Magnesium 2.4 1.8-2.4 Lvl) [facility] HospitalCineshlALHEVJRGSJOC3104-29-70 08:58:00 Test Item Value Reference Range Interpretation Comments Sodium Lvl (test code = Sodium Lvl) 139 135-145 [facility] HospitalLgkvsavHZBWJSHRXGJZ6056-94-16 08:58:00 Test Item Value Reference Range Interpretation Comments Creatinine Lvl (test code = Creatinine 1.14 0.50-1.40 Lvl) [facility] HospitalCnfhpqvYOAWSEPAXUYI4586-74-36 08:58:00 Test Item Value Reference Range Interpretation Comments Chloride Lvl (test code = Chloride Lvl) 104 95-109 [facility] HospitalUdeqwntPYOHUYGRWGPD3724-81-61 08:58:00 Test Item Value Reference Range Interpretation Comments CO2 (test code = CO2) 28 24-32 [facility] HospitalZrejxhnRCKAYNKHWEEK2385-45-26 08:58:00 Test Item Value Reference Range Interpretation Comments Calcium Lvl (test code = Calcium Lvl) 8.7 8.5-10.5 [facility] HospitalSjoxexbIIKNEENOQPLJ0368-72-89 08:58:00 Test Item Value Reference Range Interpretation Comments Potassium Lvl (test code = Potassium 4.8 3.5-5.1 Lvl) [facility] HospitalKoepzmqATXZAKPNGTBH2567-68-18 08:58:00 Test Item Value Reference Range Interpretation Comments AGAP (test code = AGAP) 11.8 10.0-20.0 [facility] HospitalChaxoyjEJNEKRFUEVNE6487-05-13 08:58:00 Test Item Value Reference Range Interpretation Comments eGFR (test code = eGFR) 45 [facility] HospitalOzzfymcEYIWQQIHGKHC7131-41-35 08:58:00 Test Item Value Reference Range Interpretation Comments BUN (test code = BUN) 25 7-22 [facility] HospitalQeimnmvRJRPDUTQOSNA5297-42-88 08:58:00 Test Item Value Reference Range Interpretation Comments Glucose Lvl (test code = Glucose Lvl) 113 70-[address] [facility] [place], TXZdeblktJKSTCAWGXV8859-07-14 08:58:00 Test Item Value Reference Range Interpretation Comments MPV (test code = MPV) 7.8 7.4-10.[address] [facility] [place], TXNdwyywnXMHUWDTBDH6133-30-03 08:58:00 Test Item Value Reference Range Interpretation Comments Platelet (test code = Platelet) 301 133-[address] [facility] [place], TXXakflomEFZENYLULB6370-82-72 08:58:00 Test Item Value Reference Range Interpretation Comments RDW (test code = RDW) 14.1 11.5-14.[address] [facility] [place], TXLkltfdjMXXOQSVNYJ4498-54-41 08:58:00 Test Item Value Reference Range Interpretation Comments MCH (test code = MCH) 29.9 pg 27.0-31.[address] [facility] [place], TXQntzbqnYRSRJLBPTH3772-53-83 08:58:00 Test Item Value Reference Range Interpretation Comments MCV (test code = MCV) 89.6 80.0-98.[address] [facility] [place], TXTsopgacXHWPDMTCHX5705-23-56 08:58:00 Test Item Value Reference Range Interpretation Comments MCHC (test code = MCHC) 33.4 32.0-36.[address] [facility] [place], TXKkgznhtYULHWREHFG8590-86-59 08:58:00 Test Item Value Reference Range Interpretation Comments Hct (test code = Hct) 34.3 36.0-48.[address] [facility] [place], TXXilusqwCDMEDYDEOF8901-70-52 08:58:00 Test Item Value Reference Range Interpretation Comments Hgb (test code = Hgb) 11.5 12.0-16.[address] [facility] [place], TXEftngwoRNOBNRLXWS8140-89-63 08:58:00 Test Item Value Reference Range Interpretation Comments RBC (test code = RBC) 3.83 4.20-5.[address] [facility] [place], TXKemrqfjWFBGIYARHX0558-59-17 08:58:00 Test Item Value Reference Range Interpretation Comments WBC (test code = WBC) 8.2 3.7-10.[address] [facility] [place], TXBqnqepdPGSGXFHZPO4221-71-98 08:58:00 Test Item Value Reference Range Interpretation Comments Lymphocytes # (test code = Lymphocytes 1.9 1.0-5.5 #) [facility] [place], TXTsbcfiiIYBKYXRKOG2511-31-28 08:58:00 Test Item Value Reference Range Interpretation Comments Segs-Bands # (test code = Segs-Bands #) 5.5 1.5-8.[address] [facility] [place], TXFfnlzoiNZRLSBXXAS9448-51-95 08:58:00 Test Item Value Reference Range Interpretation Comments Eosinophils (test code = 1.4 See_Comment [A utomated message] The Eosinophils) system which ge nerated this result tra nsmitted reference range : <=4.0. The reference r robbie was not used to int erpret this result as normal/abnormal . [facility] [place], TXZpjgaxeDRNRBSRKMR7139-44-52 08:58:00 Test Item Value Reference Range Interpretation Comments Basophils (test code = 0.5 See_Comment [Aut omated message] The Basophils) system which ge nerated this result tra nsmitted reference range : <=1.0. The reference r robbie was not used to int erpret this result as normal/abnormal . [facility] [place], TXIqiauonWPVKBGKPMA6024-83-34 08:58:00 Test Item Value Reference Range Interpretation Comments Monocytes (test code = Monocytes) 9.1 2.0-12.[address] [facility] [place], TXLebsybpPCEKWMRVYB8235-49-65 08:58:00 Test Item Value Reference Range Interpretation Comments Segs (test code = Segs) 66.2 45.0-75.[address] [facility] [place], TXOoddyqnZQPPYFJFZJ4423-48-34 08:58:00 Test Item Value Reference Range Interpretation Comments Lymphocytes (test code = Lymphocytes) 22.8 20.0-40.[address] [facility] [place], TXTypkvbsVNBNIJFNLK9445-90-15 08:58:00 Test Item Value Reference Range Interpretation Comments Eosinophils # (test code 0.1 See_Comment [A utomated message] The = Eosinophils #) system whic h generated this result tra nsmitted reference range : <=0.5. The reference r robbie was not used to int erpret this result as normal/abnormal . [facility] [place], TXYxczclxYMGWBTJEDX1067-29-28 08:58:00 Test Item Value Reference Range Interpretation Comments Monocytes # (test code 0.7 See_Comment [Aut omated message] The = Monocytes #) system which generated this result tra nsmitted reference range : <=0.8. The reference r robbie was not used to int erpret this result as normal/abnormal . [facility] WFEPQ8926-75-58 08:58:00 Test Item Value Reference Range Interpretation Comments Phosphorus (test code = Phosphorus) 2.9 2.5-4.5 [facility] QFPIA7530-70-64 08:58:00 Test Item Value Reference Range Interpretation Comments Magnesium Lvl (test code = Magnesium 2.4 1.8-2.4 Lvl) [facility] HospitalVptkgvkUKIMFFVEJUWL3730-97-62 08:58:00 Test Item Value Reference Range Interpretation Comments Sodium Lvl (test code = Sodium Lvl) 139 135-145 [facility] HospitalLjwtzyvAVYNMLGCATWO6966-23-40 08:58:00 Test Item Value Reference Range Interpretation Comments Creatinine Lvl (test code = Creatinine 1.14 0.50-1.40 Lvl) [facility] HospitalNqehxlrEUEHDNGOMOMZ3278-33-74 08:58:00 Test Item Value Reference Range Interpretation Comments Chloride Lvl (test code = Chloride Lvl) 104 95-109 [facility] HospitalZxtkredZDYMEAXUPHEH3073-23-10 08:58:00 Test Item Value Reference Range Interpretation Comments CO2 (test code = CO2) 28 24-32 [facility] HospitalNgmypqoCJVRDNSNWADD0051-15-30 08:58:00 Test Item Value Reference Range Interpretation Comments Calcium Lvl (test code = Calcium Lvl) 8.7 8.5-10.5 [facility] HospitalSmnhnsgDPQSZVGCVSFK7203-02-56 08:58:00 Test Item Value Reference Range Interpretation Comments Potassium Lvl (test code = Potassium 4.8 3.5-5.1 Lvl) [facility] HospitalTmonrzgBEEPCPSUJXIU3324-10-74 08:58:00 Test Item Value Reference Range Interpretation Comments AGAP (test code = AGAP) 11.8 10.0-20.0 [facility] HospitalJftrtfrVSHZYRQQEYTF5435-94-72 08:58:00 Test Item Value Reference Range Interpretation Comments eGFR (test code = eGFR) 45 [facility] HospitalSuxoorkNFJUSCYDFTLW0292-76-27 08:58:00 Test Item Value Reference Range Interpretation Comments BUN (test code = BUN) 25 7-22 [facility] HospitalXvgiagrELAAXZUITXBB8818-91-24 08:58:00 Test Item Value Reference Range Interpretation Comments Glucose Lvl (test code = Glucose Lvl) 113 70-[address] [facility] [place], TXJhjahcjWBJPODTGMJ4903-73-05 08:58:00 Test Item Value Reference Range Interpretation Comments MPV (test code = MPV) 7.8 7.4-10.[address] [facility] [place], TXBjuvsejNNTOIVRPEN6651-45-24 08:58:00 Test Item Value Reference Range Interpretation Comments Platelet (test code = Platelet) 301 133-[address] [facility] [place], TXXmcpfpmIJVJGPDLSS0248-05-44 08:58:00 Test Item Value Reference Range Interpretation Comments RDW (test code = RDW) 14.1 11.5-14.[address] [facility] [place], TXXyjxelxZQTUMMNRVA1112-05-42 08:58:00 Test Item Value Reference Range Interpretation Comments MCH (test code = MCH) 29.9 pg 27.0-31.[address] [facility] [place], TXHjvmpqrILMVYOLQQT1938-08-00 08:58:00 Test Item Value Reference Range Interpretation Comments MCV (test code = MCV) 89.6 80.0-98.[address] [facility] [place], TXDxfzkomFTXBOXLPAN3829-37-10 08:58:00 Test Item Value Reference Range Interpretation Comments MCHC (test code = MCHC) 33.4 32.0-36.[address] [facility] [place], TXHaqfwfnHHQMULGESK1615-98-65 08:58:00 Test Item Value Reference Range Interpretation Comments Hct (test code = Hct) 34.3 36.0-48.[address] [facility] [place], TXBlufrzlEUDFFPRGBV2975-49-25 08:58:00 Test Item Value Reference Range Interpretation Comments Hgb (test code = Hgb) 11.5 12.0-16.[address] [facility] [place], TXXafapfrQLPURISLCT4339-26-43 08:58:00 Test Item Value Reference Range Interpretation Comments RBC (test code = RBC) 3.83 4.20-5.[address] [facility] [place], TXFrqedheYCDDWDGDGU8651-06-27 08:58:00 Test Item Value Reference Range Interpretation Comments WBC (test code = WBC) 8.2 3.7-10.[address] [facility] [place], TXKvpgnokZLTMBYOSFD9713-89-17 08:58:00 Test Item Value Reference Range Interpretation Comments Lymphocytes # (test code = Lymphocytes 1.9 1.0-5.5 #) [facility] [place], TXNqigshyVBZPOUEQDP7623-57-81 08:58:00 Test Item Value Reference Range Interpretation Comments Segs-Bands # (test code = Segs-Bands #) 5.5 1.5-8.[address] [facility] [place], TXMzafmxqFFFYZOEINT1350-13-77 08:58:00 Test Item Value Reference Range Interpretation Comments Eosinophils (test code = 1.4 See_Comment [A utomated message] The Eosinophils) system which ge nerated this result tra nsmitted reference range : <=4.0. The reference r robbie was not used to int erpret this result as normal/abnormal . [facility] [place], TXZaowqspIPDRVJIVLI1554-36-61 08:58:00 Test Item Value Reference Range Interpretation Comments Basophils (test code = 0.5 See_Comment [Aut omated message] The Basophils) system which ge nerated this result tra nsmitted reference range : <=1.0. The reference r robbie was not used to int erpret this result as normal/abnormal . [facility] [place], TXXzjjhbpWTWLQWSYUN2850-77-32 08:58:00 Test Item Value Reference Range Interpretation Comments Monocytes (test code = Monocytes) 9.1 2.0-12.[address] [facility] [place], TXHtlvwlkTDFUMOTAGC1066-76-95 08:58:00 Test Item Value Reference Range Interpretation Comments Segs (test code = Segs) 66.2 45.0-75.[address] [facility] [place], TXYtyulnsRYBNJKUWSG5754-61-29 08:58:00 Test Item Value Reference Range Interpretation Comments Lymphocytes (test code = Lymphocytes) 22.8 20.0-40.[address] [facility] [place], TXGzbaeecOJFDLPJLKX4289-01-51 08:58:00 Test Item Value Reference Range Interpretation Comments Eosinophils # (test code 0.1 See_Comment [A utomated message] The = Eosinophils #) system whic h generated this result tra nsmitted reference range : <=0.5. The reference r robbie was not used to int erpret this result as normal/abnormal . [facility] [place], TXJorhvftPWELYQOITV6237-33-08 08:58:00 Test Item Value Reference Range Interpretation Comments Monocytes # (test code 0.7 See_Comment [Aut omated message] The = Monocytes #) system which generated this result tra nsmitted reference range : <=0.8. The reference r robbie was not used to int erpret this result as normal/abnormal . [facility] OIAUB7470-47-54 08:58:00 Test Item Value Reference Range Interpretation Comments Phosphorus (test code = Phosphorus) 2.9 2.5-4.5 [facility] OCRQW5561-65-02 08:58:00 Test Item Value Reference Range Interpretation Comments Magnesium Lvl (test code = Magnesium 2.4 1.8-2.4 Lvl) [facility] HospitalJdbzojdAMENTPYXWILO8621-20-97 08:58:00 Test Item Value Reference Range Interpretation Comments Sodium Lvl (test code = Sodium Lvl) 139 135-145 [facility] HospitalUgdkaocKUNKZQWFPSMB8710-59-63 08:58:00 Test Item Value Reference Range Interpretation Comments Creatinine Lvl (test code = Creatinine 1.14 0.50-1.40 Lvl) [facility] HospitalJswlxwhEGLYUBORMHKR6402-53-19 08:58:00 Test Item Value Reference Range Interpretation Comments Chloride Lvl (test code = Chloride Lvl) 104 95-109 [facility] HospitalMzosfjdHEQSKKGMOXGA8017-69-63 08:58:00 Test Item Value Reference Range Interpretation Comments CO2 (test code = CO2) 28 24-32 [facility] HospitalMlpmqajLESDOKRDCVDR5870-74-80 08:58:00 Test Item Value Reference Range Interpretation Comments Calcium Lvl (test code = Calcium Lvl) 8.7 8.5-10.5 [facility] HospitalGjhwihaRWWROEZCGUCQ7011-39-66 08:58:00 Test Item Value Reference Range Interpretation Comments Potassium Lvl (test code = Potassium 4.8 3.5-5.1 Lvl) [facility] HospitalJemkgczEHWDPICIMNQU3651-42-76 08:58:00 Test Item Value Reference Range Interpretation Comments AGAP (test code = AGAP) 11.8 10.0-20.0 [facility] HospitalCvwqmauFHGKSEQBNWGH0568-83-20 08:58:00 Test Item Value Reference Range Interpretation Comments eGFR (test code = eGFR) 45 [facility] HospitalEnkbeivGXUBNDPBTWYP9531-35-87 08:58:00 Test Item Value Reference Range Interpretation Comments BUN (test code = BUN) 25 7-22 [facility] HospitalDzmfuqzYTLHIJLZNSIE8539-95-74 08:58:00 Test Item Value Reference Range Interpretation Comments Glucose Lvl (test code = Glucose Lvl) 113 70-[address] [facility] [place], TXMurgravGYWUYAGREQ5127-32-15 08:58:00 Test Item Value Reference Range Interpretation Comments MPV (test code = MPV) 7.8 7.4-10.[address] [facility] [place], TXNxyztpeDUFNBCNOVI7277-32-12 08:58:00 Test Item Value Reference Range Interpretation Comments Platelet (test code = Platelet) 301 133-[address] [facility] [place], TXIuibqfbRKTAMFAENT7630-42-05 08:58:00 Test Item Value Reference Range Interpretation Comments RDW (test code = RDW) 14.1 11.5-14.[address] [facility] [place], TXKxbopngWLUVOZCDYT1691-54-35 08:58:00 Test Item Value Reference Range Interpretation Comments MCH (test code = MCH) 29.9 pg 27.0-31.[address] [facility] [place], TXYulpbrmNLQGWFHGOF2944-87-76 08:58:00 Test Item Value Reference Range Interpretation Comments MCV (test code = MCV) 89.6 80.0-98.[address] [facility] [place], TXHgsldzxEEBXMZYPOE8909-72-54 08:58:00 Test Item Value Reference Range Interpretation Comments MCHC (test code = MCHC) 33.4 32.0-36.[address] [facility] [place], TXClaeixaKACKDDOXVX1936-42-07 08:58:00 Test Item Value Reference Range Interpretation Comments Hct (test code = Hct) 34.3 36.0-48.[address] [facility] [place], TXRgvfuzcHMVOENTFSZ6500-52-54 08:58:00 Test Item Value Reference Range Interpretation Comments Hgb (test code = Hgb) 11.5 12.0-16.[address] [facility] [place], TXZxospnqIDGMMOJNJZ1946-83-38 08:58:00 Test Item Value Reference Range Interpretation Comments RBC (test code = RBC) 3.83 4.20-5.[address] [facility] [place], TXFroyudtIYGOORGWYU5308-80-50 08:58:00 Test Item Value Reference Range Interpretation Comments WBC (test code = WBC) 8.2 3.7-10.[address] [facility] [place], TXUhvcvmvXWIDOZXERK4374-50-98 08:58:00 Test Item Value Reference Range Interpretation Comments Lymphocytes # (test code = Lymphocytes 1.9 1.0-5.5 #) [facility] [place], TXMjvfgtzXWTZTSCEZO1602-07-77 08:58:00 Test Item Value Reference Range Interpretation Comments Segs-Bands # (test code = Segs-Bands #) 5.5 1.5-8.[address] [facility] [place], TXVuinhoqLJNRJFCGDQ3576-23-97 08:58:00 Test Item Value Reference Range Interpretation Comments Eosinophils (test code = 1.4 See_Comment [A utomated message] The Eosinophils) system which ge nerated this result tra nsmitted reference range : <=4.0. The reference r robbie was not used to int erpret this result as normal/abnormal . [facility] [place], TXFoiwchbOSUDWHMYYY4068-70-53 08:58:00 Test Item Value Reference Range Interpretation Comments Basophils (test code = 0.5 See_Comment [Aut omated message] The Basophils) system which ge nerated this result tra nsmitted reference range : <=1.0. The reference r robbie was not used to int erpret this result as normal/abnormal . [facility] [place], TXWvjlopkNXWXYPCGAY2926-75-21 08:58:00 Test Item Value Reference Range Interpretation Comments Monocytes (test code = Monocytes) 9.1 2.0-12.[address] [facility] [place], TXMclenykEOTZDTYVCS7674-75-81 08:58:00 Test Item Value Reference Range Interpretation Comments Segs (test code = Segs) 66.2 45.0-75.[address] [facility] [place], TXApgzzquRIDEOLYRYN3369-06-27 08:58:00 Test Item Value Reference Range Interpretation Comments Lymphocytes (test code = Lymphocytes) 22.8 20.0-40.[address] [facility] [place], TXJiazcrzBCKOFOWNAK3481-45-25 08:58:00 Test Item Value Reference Range Interpretation Comments Eosinophils # (test code 0.1 See_Comment [A utomated message] The = Eosinophils #) system whic h generated this result tra nsmitted reference range : <=0.5. The reference r robbie was not used to int erpret this result as normal/abnormal . [facility] [place], TXEtgcxseAWKHUAJFFN1698-57-99 08:58:00 Test Item Value Reference Range Interpretation Comments Monocytes # (test code 0.7 See_Comment [Aut omated message] The = Monocytes #) system which generated this result tra nsmitted reference range : <=0.8. The reference r robbie was not used to int erpret this result as normal/abnormal . [facility]2016-09-01 09:58:00 Test Item Value Reference Range Interpretation Comments Phosphorus (test code = Phosphorus) 3.7 2.5-4.5 [facility]2016-09-01 09:58:00 Test Item Value Reference Range Interpretation Comments Magnesium Lvl (test code = Magnesium 2.1 1.8-2.4 Lvl) [facility]2016-09-01 09:58:00 Test Item Value Reference Range Interpretation Comments eGFR (test code = eGFR) 42 [facility]2016-09-01 09:58:00 Test Item Value Reference Range Interpretation Comments AGAP (test code = AGAP) 12.9 10.0-20.0 [facility]2016-09-01 09:58:00 Test Item Value Reference Range Interpretation Comments Chloride Lvl (test code = Chloride Lvl) 104 95-109 [facility]2016-09-01 09:58:00 Test Item Value Reference Range Interpretation Comments CO2 (test code = CO2) 25 24-32 [facility]2016-09-01 09:58:00 Test Item Value Reference Range Interpretation Comments Calcium Lvl (test code = Calcium Lvl) 8.5 8.5-10.5 [facility]2016-09-01 09:58:00 Test Item Value Reference Range Interpretation Comments Potassium Lvl (test code = Potassium 3.9 3.5-5.1 Lvl) [facility]2016-09-01 09:58:00 Test Item Value Reference Range Interpretation Comments Creatinine Lvl (test code = Creatinine 1.22 0.50-1.40 Lvl) [facility]2016-09-01 09:58:00 Test Item Value Reference Range Interpretation Comments Sodium Lvl (test code = Sodium Lvl) 138 135-145 [facility]2016-09-01 09:58:00 Test Item Value Reference Range Interpretation Comments BUN (test code = BUN) 24 7-22 [facility]2016-09-01 09:58:00 Test Item Value Reference Range Interpretation Comments Glucose Lvl (test code = Glucose Lvl) 92 70-99 [facility]2016-09-01 09:58:00 Test Item Value Reference Range Interpretation Comments Phosphorus (test code = Phosphorus) 3.7 2.5-4.5 [facility]2016-09-01 09:58:00 Test Item Value Reference Range Interpretation Comments Magnesium Lvl (test code = Magnesium 2.1 1.8-2.4 Lvl) [facility]2016-09-01 09:58:00 Test Item Value Reference Range Interpretation Comments eGFR (test code = eGFR) 42 [facility]2016-09-01 09:58:00 Test Item Value Reference Range Interpretation Comments AGAP (test code = AGAP) 12.9 10.0-20.0 [facility]2016-09-01 09:58:00 Test Item Value Reference Range Interpretation Comments Chloride Lvl (test code = Chloride Lvl) 104 95-109 [facility]2016-09-01 09:58:00 Test Item Value Reference Range Interpretation Comments CO2 (test code = CO2) 25 24-32 [facility]2016-09-01 09:58:00 Test Item Value Reference Range Interpretation Comments Calcium Lvl (test code = Calcium Lvl) 8.5 8.5-10.5 [facility]2016-09-01 09:58:00 Test Item Value Reference Range Interpretation Comments Potassium Lvl (test code = Potassium 3.9 3.5-5.1 Lvl) [facility]2016-09-01 09:58:00 Test Item Value Reference Range Interpretation Comments Creatinine Lvl (test code = Creatinine 1.22 0.50-1.40 Lvl) [facility]2016-09-01 09:58:00 Test Item Value Reference Range Interpretation Comments Sodium Lvl (test code = Sodium Lvl) 138 135-145 [facility]2016-09-01 09:58:00 Test Item Value Reference Range Interpretation Comments BUN (test code = BUN) 24 7-22 [facility]2016-09-01 09:58:00 Test Item Value Reference Range Interpretation Comments Glucose Lvl (test code = Glucose Lvl) 92 70-99 [facility]2016-09-01 09:58:00 Test Item Value Reference Range Interpretation Comments Phosphorus (test code = Phosphorus) 3.7 2.5-4.5 [facility]2016-09-01 09:58:00 Test Item Value Reference Range Interpretation Comments Magnesium Lvl (test code = Magnesium 2.1 1.8-2.4 Lvl) [facility]2016-09-01 09:58:00 Test Item Value Reference Range Interpretation Comments eGFR (test code = eGFR) 42 [facility]2016-09-01 09:58:00 Test Item Value Reference Range Interpretation Comments AGAP (test code = AGAP) 12.9 10.0-20.0 [facility]2016-09-01 09:58:00 Test Item Value Reference Range Interpretation Comments Chloride Lvl (test code = Chloride Lvl) 104 95-109 [facility]2016-09-01 09:58:00 Test Item Value Reference Range Interpretation Comments CO2 (test code = CO2) 25 24-32 [facility]2016-09-01 09:58:00 Test Item Value Reference Range Interpretation Comments Calcium Lvl (test code = Calcium Lvl) 8.5 8.5-10.5 [facility]2016-09-01 09:58:00 Test Item Value Reference Range Interpretation Comments Potassium Lvl (test code = Potassium 3.9 3.5-5.1 Lvl) [facility]2016-09-01 09:58:00 Test Item Value Reference Range Interpretation Comments Creatinine Lvl (test code = Creatinine 1.22 0.50-1.40 Lvl) [facility]2016-09-01 09:58:00 Test Item Value Reference Range Interpretation Comments Sodium Lvl (test code = Sodium Lvl) 138 135-145 [facility]2016-09-01 09:58:00 Test Item Value Reference Range Interpretation Comments BUN (test code = BUN) 24 7-22 [facility]2016-09-01 09:58:00 Test Item Value Reference Range Interpretation Comments Glucose Lvl (test code = Glucose Lvl) 92 70-99 [facility]2016-08-31 14:11:00 Test Item Value Reference Range Interpretation Comments Aldosterone (test code = Aldosterone) no gt [facility]2016-08-31 14:11:00 Test Item Value Reference Range Interpretation Comments Aldosterone (test code = Aldosterone) no gt [facility]2016-08-31 14:11:00 Test Item Value Reference Range Interpretation Comments Aldosterone (test code = Aldosterone) no gt [place] 265856-08-31 13:47:00 Test Item Value Reference Range Interpretation Comments Cortisol (test code = Cortisol) 8.6 [place] 265856-08-31 13:47:00 Test Item Value Reference Range Interpretation Comments Cortisol (test code = Cortisol) 8.6 [place] 265856-08-31 13:47:00 Test Item Value Reference Range Interpretation Comments Cortisol (test code = Cortisol) 8.6 [facility]2016-08-31 07:59:00 Test Item Value Reference Range Interpretation Comments Phosphorus (test code = Phosphorus) 3.3 2.5-4.5 [facility]2016-08-31 07:59:00 Test Item Value Reference Range Interpretation Comments Magnesium Lvl (test code = Magnesium 1.8 1.8-2.4 Lvl) [facility]GZ5017[facility]43-16 07:59:00 Test Item Value Reference Range Interpretation Comments AGAP (test code = AGAP) 11.2 10.0-20.0 [facility] HospitalUtzzlmpMIYNXZGJZYAI7566-15-31 07:59:00 Test Item Value Reference Range Interpretation Comments eGFR (test code = eGFR) 49 [facility] HospitalXksvopqYATSSSQMTOWH9763-48-64 07:59:00 Test Item Value Reference Range Interpretation Comments Calcium Lvl (test code = Calcium Lvl) 8.4 8.5-10.5 [facility] HospitalPqufvimXTFILUHITKCJ5405-11-56 07:59:00 Test Item Value Reference Range Interpretation Comments Potassium Lvl (test code = Potassium 4.2 3.5-5.1 Lvl) [facility] HospitalImkesrlQCEOMLUINJCQ0959-51-43 07:59:00 Test Item Value Reference Range Interpretation Comments Chloride Lvl (test code = Chloride Lvl) 105 95-109 [facility] HospitalWxfbqukJUIVSIEBWQSC0225-51-98 07:59:00 Test Item Value Reference Range Interpretation Comments CO2 (test code = CO2) 28 24-32 [facility] HospitalRiejmvyNANCAKZCHDGC6123-42-76 07:59:00 Test Item Value Reference Range Interpretation Comments BUN (test code = BUN) 22 7-22 [facility] HospitalYndohwyXAGZABVOYBOT7730-29-35 07:59:00 Test Item Value Reference Range Interpretation Comments Glucose Lvl (test code = Glucose Lvl) 109 70-99 [facility] HospitalJbqhwspYKGEWJUSFXCQ9936-68-76 07:59:00 Test Item Value Reference Range Interpretation Comments Creatinine Lvl (test code = Creatinine 1.07 0.50-1.40 Lvl) [facility] HospitalDwrqnekLNPTFXOUAWJX9307-83-81 07:59:00 Test Item Value Reference Range Interpretation Comments Sodium Lvl (test code = Sodium Lvl) 140 135-[address] [facility] [place], TXQcfbidqTDLHSDRCJP3245-19-94 07:59:00 Test Item Value Reference Range Interpretation Comments WBC (test code = WBC) 7.3 3.7-10.[address] [facility] [place], TXYugcrhxSOHIINJLSF8297-13-67 07:59:00 Test Item Value Reference Range Interpretation Comments MCH (test code = MCH) 29.6 pg 27.0-31.[address] [facility] [place], TXGxosghuMWATXMDLST7903-53-68 07:59:00 Test Item Value Reference Range Interpretation Comments MCV (test code = MCV) 88.9 80.0-98.[address] [facility] [place], TXRhfnntoQOXZGVSQZC5779-42-10 07:59:00 Test Item Value Reference Range Interpretation Comments Hct (test code = Hct) 36.7 36.0-48.[address] [facility] [place], TXCatuusbNMZZFLMTPS9050-77-36 07:59:00 Test Item Value Reference Range Interpretation Comments Hgb (test code = Hgb) 12.2 12.0-16.[address] [facility] [place], TXOihqzusMYNEXEYUJL3432-21-43 07:59:00 Test Item Value Reference Range Interpretation Comments RBC (test code = RBC) 4.12 4.20-5.[address] [facility] [place], TXCyeqottDOGMDPUYES2257-07-77 07:59:00 Test Item Value Reference Range Interpretation Comments MPV (test code = MPV) 7.3 7.4-10.[address] [facility] [place], TXQmpxzcfZTSDOUWCBQ3045-98-83 07:59:00 Test Item Value Reference Range Interpretation Comments Platelet (test code = Platelet) 290 133-[address] [facility] [place], TXSykrseiVJIDMQKXOE7795-73-20 07:59:00 Test Item Value Reference Range Interpretation Comments RDW (test code = RDW) 13.8 11.5-14.[address] [facility] [place], TXOmznjfdCCOFGWRJXQ9375-87-06 07:59:00 Test Item Value Reference Range Interpretation Comments MCHC (test code = MCHC) 33.3 32.0-36.[address] [facility] [place], TXVdoqdbgUZFOZZVDFL2006-10-73 07:59:00 Test Item Value Reference Range Interpretation Comments Lymphocytes # (test code = Lymphocytes 1.6 1.0-5.5 #) [facility] [place], TXUdlrpohQMKWWSPKQV3879-94-23 07:59:00 Test Item Value Reference Range Interpretation Comments Segs-Bands # (test code = Segs-Bands #) 4.8 1.5-8.[address] [facility] [place], TXGfsnckgLFDWEMSDBI1454-93-45 07:59:00 Test Item Value Reference Range Interpretation Comments Eosinophils # (test code 0.2 See_Comment [A utomated message] The = Eosinophils #) system whic h generated this result tra nsmitted reference range : <=0.5. The reference r robbie was not used to int erpret this result as normal/abnormal . [facility] [place], TXNrmuscgZQXNSHXAXY8160-95-44 07:59:00 Test Item Value Reference Range Interpretation Comments Monocytes # (test code 0.7 See_Comment [Aut omated message] The = Monocytes #) system which generated this result tra nsmitted reference range : <=0.8. The reference r robbie was not used to int erpret this result as normal/abnormal . [facility] [place], TXOgrvtufARFGYXYPCT9309-60-80 07:59:00 Test Item Value Reference Range Interpretation Comments Basophils # (test code 0.1 See_Comment [Aut omated message] The = Basophils #) system which generated this result tra nsmitted reference range : <=0.2. The reference r robbie was not used to int erpret this result as normal/abnormal . [facility] [place], TXPqowuodAPPYLKFKQC8032-65-93 07:59:00 Test Item Value Reference Range Interpretation Comments Lymphocytes (test code = Lymphocytes) 21.7 20.0-40.[address] [facility] [place], TXRichuhqMWHUWVPHUB6812-39-73 07:59:00 Test Item Value Reference Range Interpretation Comments Segs (test code = Segs) 65.6 45.0-75.[address] [facility] [place], TXWvwgcidAXGFHVLJGN8815-85-07 07:59:00 Test Item Value Reference Range Interpretation Comments Basophils (test code = 0.8 See_Comment [Aut omated message] The Basophils) system which ge nerated this result tra nsmitted reference range : <=1.0. The reference r robbie was not used to int erpret this result as normal/abnormal . [facility] [place], TXTzvninaVUNYKNKHAP8068-31-60 07:59:00 Test Item Value Reference Range Interpretation Comments Eosinophils (test code = 2.1 See_Comment [A utomated message] The Eosinophils) system which ge nerated this result tra nsmitted reference range : <=4.0. The reference r robbie was not used to int erpret this result as normal/abnormal . [facility] [place], TXQldzxxfAEKXPEQCQA7283-68-22 07:59:00 Test Item Value Reference Range Interpretation Comments Monocytes (test code = Monocytes) 9.8 2.0-12.0 [facility]2016-08-31 07:59:00 Test Item Value Reference Range Interpretation Comments Phosphorus (test code = Phosphorus) 3.3 2.5-4.5 [facility]2016-08-31 07:59:00 Test Item Value Reference Range Interpretation Comments Magnesium Lvl (test code = Magnesium 1.8 1.8-2.4 Lvl) [facility]QmvlguvLRBZUHTQBKUM0706-06-96 07:59:00 Test Item Value Reference Range Interpretation Comments AGAP (test code = AGAP) 11.2 10.0-20.0 [facility] HospitalVcypkdfGAACOIOQHAVD5409-83-95 07:59:00 Test Item Value Reference Range Interpretation Comments eGFR (test code = eGFR) 49 [facility] HospitalQhenznpZDPRWFVSMCZG1771-38-20 07:59:00 Test Item Value Reference Range Interpretation Comments Calcium Lvl (test code = Calcium Lvl) 8.4 8.5-10.5 [facility] HospitalUcjsbtuNSGTMBUJCPAZ6975-99-57 07:59:00 Test Item Value Reference Range Interpretation Comments Potassium Lvl (test code = Potassium 4.2 3.5-5.1 Lvl) [facility] HospitalJebinzdJPZOCIYBGBLH7697-87-17 07:59:00 Test Item Value Reference Range Interpretation Comments Chloride Lvl (test code = Chloride Lvl) 105 95-109 [facility] HospitalEqayhydIPSFEHKEGYNC3977-18-64 07:59:00 Test Item Value Reference Range Interpretation Comments CO2 (test code = CO2) 28 24-32 [facility] HospitalRnkhvbnIKWOSSFOJZIY9343-49-82 07:59:00 Test Item Value Reference Range Interpretation Comments BUN (test code = BUN) 22 7-22 [facility] HospitalIsububeMEPQKVKFLCTE1640-15-64 07:59:00 Test Item Value Reference Range Interpretation Comments Glucose Lvl (test code = Glucose Lvl) 109 70-99 [facility] HospitalDwazedzVERTBBZVPEBZ7490-69-28 07:59:00 Test Item Value Reference Range Interpretation Comments Creatinine Lvl (test code = Creatinine 1.07 0.50-1.40 Lvl) [facility] HospitalDftbahdKXOZDHSEYNCB3700-27-91 07:59:00 Test Item Value Reference Range Interpretation Comments Sodium Lvl (test code = Sodium Lvl) 140 135-[address] [facility] [place], TXRnidmlwLHOCWJDVRT8071-74-22 07:59:00 Test Item Value Reference Range Interpretation Comments WBC (test code = WBC) 7.3 3.7-10.[address] [facility] [place], TXHlruposAGCNZFPVYM0998-44-26 07:59:00 Test Item Value Reference Range Interpretation Comments MCH (test code = MCH) 29.6 pg 27.0-31.[address] [facility] [place], TXFpqhetzVZNVBUTNIQ7783-61-43 07:59:00 Test Item Value Reference Range Interpretation Comments MCV (test code = MCV) 88.9 80.0-98.[address] [facility] [place], TXMxryzysOXQADWYTKC7912-07-50 07:59:00 Test Item Value Reference Range Interpretation Comments Hct (test code = Hct) 36.7 36.0-48.[address] [facility] [place], TXZuvqzatUUXQQBLRCF4229-48-90 07:59:00 Test Item Value Reference Range Interpretation Comments Hgb (test code = Hgb) 12.2 12.0-16.[address] [facility] [place], TXZenwttwZTOLRGTCCZ4405-10-49 07:59:00 Test Item Value Reference Range Interpretation Comments RBC (test code = RBC) 4.12 4.20-5.[address] [facility] [place], TXOshcgwlXXMGNMQRAD7577-41-92 07:59:00 Test Item Value Reference Range Interpretation Comments MPV (test code = MPV) 7.3 7.4-10.[address] [facility] [place], TXTjbsqtlBCYCVUKJAQ0506-80-10 07:59:00 Test Item Value Reference Range Interpretation Comments Platelet (test code = Platelet) 290 133-[address] [facility] [place], TXZqgccjxDYXBDSDKPN3700-99-84 07:59:00 Test Item Value Reference Range Interpretation Comments RDW (test code = RDW) 13.8 11.5-14.[address] [facility] [place], TXZqqczgsONZBTOPNCK9358-13-33 07:59:00 Test Item Value Reference Range Interpretation Comments MCHC (test code = MCHC) 33.3 32.0-36.[address] [facility] [place], TXErsbwwtEBQOTNXLQU7659-44-94 07:59:00 Test Item Value Reference Range Interpretation Comments Lymphocytes # (test code = Lymphocytes 1.6 1.0-5.5 #) [facility] [place], TXHywhbimQMGYPYCKPH3153-03-09 07:59:00 Test Item Value Reference Range Interpretation Comments Segs-Bands # (test code = Segs-Bands #) 4.8 1.5-8.[address] [facility] [place], TXEenphedPPSKDEMEEL7100-91-18 07:59:00 Test Item Value Reference Range Interpretation Comments Eosinophils # (test code 0.2 See_Comment [A utomated message] The = Eosinophils #) system whic h generated this result tra nsmitted reference range : <=0.5. The reference r robbie was not used to int erpret this result as normal/abnormal . [facility] [place], TXKeohbjaEWVFAQRNJK0080-36-05 07:59:00 Test Item Value Reference Range Interpretation Comments Monocytes # (test code 0.7 See_Comment [Aut omated message] The = Monocytes #) system which generated this result tra nsmitted reference range : <=0.8. The reference r robbie was not used to int erpret this result as normal/abnormal . [facility] [place], TXEhpaaapPONAMMNEGH7216-21-33 07:59:00 Test Item Value Reference Range Interpretation Comments Basophils # (test code 0.1 See_Comment [Aut omated message] The = Basophils #) system which generated this result tra nsmitted reference range : <=0.2. The reference r robbie was not used to int erpret this result as normal/abnormal . [facility] [place], TXHrgenxdISFMFMLVPJ9216-83-69 07:59:00 Test Item Value Reference Range Interpretation Comments Lymphocytes (test code = Lymphocytes) 21.7 20.0-40.[address] [facility] [place], TXOekppcyGALOSCLLSR6284-67-43 07:59:00 Test Item Value Reference Range Interpretation Comments Segs (test code = Segs) 65.6 45.0-75.[address] [facility] [place], TXWnungvbFQOQGSCEJZ3605-56-61 07:59:00 Test Item Value Reference Range Interpretation Comments Basophils (test code = 0.8 See_Comment [Aut omated message] The Basophils) system which ge nerated this result tra nsmitted reference range : <=1.0. The reference r robbie was not used to int erpret this result as normal/abnormal . [facility] [place], TXQkjgkfgNWVJJBSGVV8560-28-15 07:59:00 Test Item Value Reference Range Interpretation Comments Eosinophils (test code = 2.1 See_Comment [A utomated message] The Eosinophils) system which ge nerated this result tra nsmitted reference range : <=4.0. The reference r robbie was not used to int erpret this result as normal/abnormal . [facility] [place], TXVvmoudpUVVQTZHULJ6052-90-67 07:59:00 Test Item Value Reference Range Interpretation Comments Monocytes (test code = Monocytes) 9.8 2.0-12.0 [facility] IHLIO8234-11-59 07:59:00 Test Item Value Reference Range Interpretation Comments Phosphorus (test code = Phosphorus) 3.3 2.5-4.5 [facility] ALVGT3107-86-66 07:59:00 Test Item Value Reference Range Interpretation Comments Magnesium Lvl (test code = Magnesium 1.8 1.8-2.4 Lvl) [facility]IzlkvbqGKMDSJIMLGEH6881-83-16 07:59:00 Test Item Value Reference Range Interpretation Comments AGAP (test code = AGAP) 11.2 10.0-20.0 [facility] HospitalZvbuyysIPQFEITJEQZY6483-18-01 07:59:00 Test Item Value Reference Range Interpretation Comments eGFR (test code = eGFR) 49 [facility] HospitalYvjoluuWUCRYSJKKRII4401-22-15 07:59:00 Test Item Value Reference Range Interpretation Comments Calcium Lvl (test code = Calcium Lvl) 8.4 8.5-10.5 [facility]bvbfrlFANCMHVNEFSN1005-82-95 07:59:00 Test Item Value Reference Range Interpretation Comments Potassium Lvl (test code = Potassium 4.2 3.5-5.1 Lvl) [facility]RwwfqdrVYGPPRNLPVWR4067-23-73 07:59:00 Test Item Value Reference Range Interpretation Comments Chloride Lvl (test code = Chloride Lvl) 105 95-109 [facility] HospitalFwbagxiMFTHSOPKSABN5063-89-25 07:59:00 Test Item Value Reference Range Interpretation Comments CO2 (test code = CO2) 28 24-32 [facility] HospitalVxgudshSNKHHSQQPPRI5545-19-21 07:59:00 Test Item Value Reference Range Interpretation Comments BUN (test code = BUN) 22 7-22 [facility] HospitalIljyulyKCVEZUZJVLEO5847-02-74 07:59:00 Test Item Value Reference Range Interpretation Comments Glucose Lvl (test code = Glucose Lvl) 109 70-99 [facility] HospitalFndzeylWWVDDEPTIGDI4962-66-09 07:59:00 Test Item Value Reference Range Interpretation Comments Creatinine Lvl (test code = Creatinine 1.07 0.50-1.40 Lvl) [facility] HospitalLpsvyrjVPETLGUWMTLM3571-92-88 07:59:00 Test Item Value Reference Range Interpretation Comments Sodium Lvl (test code = Sodium Lvl) 140 135-[address] [facility] [place], TXUafmgxgNIIRHKAJJG1327-13-13 07:59:00 Test Item Value Reference Range Interpretation Comments WBC (test code = WBC) 7.3 3.7-10.[address] [facility] [place], TXRjstzjaBLETWPGYWO9272-65-47 07:59:00 Test Item Value Reference Range Interpretation Comments MCH (test code = MCH) 29.6 pg 27.0-31.[address] [facility] [place], TXByzifffRYQAWJKEDO2615-78-36 07:59:00 Test Item Value Reference Range Interpretation Comments MCV (test code = MCV) 88.9 80.0-98.[address] [facility] [place], TXTwwqlsoNCJRIINEKM9228-84-77 07:59:00 Test Item Value Reference Range Interpretation Comments Hct (test code = Hct) 36.7 36.0-48.[address] [facility] [place], TXBnjydbbDPHFUHNBAS0181-43-08 07:59:00 Test Item Value Reference Range Interpretation Comments Hgb (test code = Hgb) 12.2 12.0-16.[address] [facility] [place], TXScypcoqBGKCHKZNQX2150-20-35 07:59:00 Test Item Value Reference Range Interpretation Comments RBC (test code = RBC) 4.12 4.20-5.[address] [facility] [place], TXBndnkfeOXMUDQSSUM4949-21-52 07:59:00 Test Item Value Reference Range Interpretation Comments MPV (test code = MPV) 7.3 7.4-10.[address] [facility] [place], TXJqxurpmEDEWRHWHJL9876-66-63 07:59:00 Test Item Value Reference Range Interpretation Comments Platelet (test code = Platelet) 290 133-[address] [facility] [place], TXEfjzvsuTFDZEEEGRW2577-44-60 07:59:00 Test Item Value Reference Range Interpretation Comments RDW (test code = RDW) 13.8 11.5-14.[address] [facility] [place], TXVygimkxUOSKYWUIGO1674-34-89 07:59:00 Test Item Value Reference Range Interpretation Comments MCHC (test code = MCHC) 33.3 32.0-36.[address] [facility] [place], TXXrfpicoHUJVUVRAXR3547-16-67 07:59:00 Test Item Value Reference Range Interpretation Comments Lymphocytes # (test code = Lymphocytes 1.6 1.0-5.5 #) [facility] [place], TXGyqbgcpKFYLJCUWDO0683-67-41 07:59:00 Test Item Value Reference Range Interpretation Comments Segs-Bands # (test code = Segs-Bands #) 4.8 1.5-8.[address] [facility] [place], TXPtjhugqXLBASCVDHM2403-34-57 07:59:00 Test Item Value Reference Range Interpretation Comments Eosinophils # (test code 0.2 See_Comment [A utomated message] The = Eosinophils #) system whic h generated this result tra nsmitted reference range : <=0.5. The reference r robbie was not used to int erpret this result as normal/abnormal . [facility] [place], TXIauzaavSLAMDFVZBI3048-19-58 07:59:00 Test Item Value Reference Range Interpretation Comments Monocytes # (test code 0.7 See_Comment [Aut omated message] The = Monocytes #) system which generated this result tra nsmitted reference range : <=0.8. The reference r robbie was not used to int erpret this result as normal/abnormal . [facility] [place], TXBwtwlksQQUXGYMRCT1995-19-00 07:59:00 Test Item Value Reference Range Interpretation Comments Basophils # (test code 0.1 See_Comment [Aut omated message] The = Basophils #) system which generated this result tra nsmitted reference range : <=0.2. The reference r robbie was not used to int erpret this result as normal/abnormal . [facility] [place], TXDzjdbiwUFUMRUUSZC8993-01-53 07:59:00 Test Item Value Reference Range Interpretation Comments Lymphocytes (test code = Lymphocytes) 21.7 20.0-40.[address] [facility] [place], TXLfhkyvvJYYGBMLUQF1977-30-04 07:59:00 Test Item Value Reference Range Interpretation Comments Segs (test code = Segs) 65.6 45.0-75.[address] [facility] [place], TXXhmjurkOKKOXOCGAM2775-80-74 07:59:00 Test Item Value Reference Range Interpretation Comments Basophils (test code = 0.8 See_Comment [Aut omated message] The Basophils) system which ge nerated this result tra nsmitted reference range : <=1.0. The reference r robbie was not used to int erpret this result as normal/abnormal . [facility] [place], TXGbnqydgIGRAQZHLCX0319-04-71 07:59:00 Test Item Value Reference Range Interpretation Comments Eosinophils (test code = 2.1 See_Comment [A utomated message] The Eosinophils) system which ge nerated this result tra nsmitted reference range : <=4.0. The reference r robbie was not used to int erpret this result as normal/abnormal . [facility] [place], TXCkgqbxvNZVCORYLKC3875-52-04 07:59:00 Test Item Value Reference Range Interpretation Comments Monocytes (test code = Monocytes) 9.8 2.0-12.[address] [facility] [place], TXKvsczpoUVIIXTXWNN7921-93-66 08:51:00 Test Item Value Reference Range Interpretation Comments Segs (test code = Segs) 53.8 45.0-75.[address] [facility] [place], TXCvxwohaCUGYNUHGHT8652-49-25 08:51:00 Test Item Value Reference Range Interpretation Comments Monocytes # (test code 0.6 See_Comment [Aut omated message] The = Monocytes #) system which generated this result tra nsmitted reference range : <=0.8. The reference r robbie was not used to int erpret this result as normal/abnormal . [facility] [place], TXVqyyyyxRYSGHWDGQH5878-94-61 08:51:00 Test Item Value Reference Range Interpretation Comments Basophils (test code = 0.7 See_Comment [Aut omated message] The Basophils) system which ge nerated this result tra nsmitted reference range : <=1.0. The reference r robbie was not used to int erpret this result as normal/abnormal . [facility] [place], TXWewypbhTYEBDEDHOH8233-46-12 08:51:00 Test Item Value Reference Range Interpretation Comments Segs-Bands # (test code = Segs-Bands #) 3.1 1.5-8.[address] [facility] [place], TXNlnpahgBQUUYPSKGT7143-76-49 08:51:00 Test Item Value Reference Range Interpretation Comments Monocytes (test code = Monocytes) 9.7 2.0-12.[address] [facility] [place], TXAtyfentYCEAUUDFLW0028-04-03 08:51:00 Test Item Value Reference Range Interpretation Comments Eosinophils (test code = 3.5 See_Comment [A utomated message] The Eosinophils) system which ge nerated this result tra nsmitted reference range : <=4.0. The reference r robbie was not used to int erpret this result as normal/abnormal . [facility] [place], TXUejylktOJQXZDFTGJ0415-76-77 08:51:00 Test Item Value Reference Range Interpretation Comments Lymphocytes (test code = Lymphocytes) 32.3 20.0-40.[address] [facility] [place], TXOdbnjjhXIEVJRZHGU2499-78-59 08:51:00 Test Item Value Reference Range Interpretation Comments Eosinophils # (test code 0.2 See_Comment [A utomated message] The = Eosinophils #) system whic h generated this result tra nsmitted reference range : <=0.5. The reference r robbie was not used to int erpret this result as normal/abnormal . [facility] [place], TXKzqlgzsMCJDUDCLRI0344-05-22 08:51:00 Test Item Value Reference Range Interpretation Comments Lymphocytes # (test code = Lymphocytes 1.8 1.0-5.5 #) [facility] [place], TXPykjgbxZJPBGAVAEC1690-38-59 08:51:00 Test Item Value Reference Range Interpretation Comments MPV (test code = MPV) 7.6 7.4-10.[address] [facility] [place], TXWnfkomiMVFRTJHQJG0867-43-26 08:51:00 Test Item Value Reference Range Interpretation Comments MCH (test code = MCH) 30.0 pg 27.0-31.[address] [facility] [place], TXYszdwwcEYVNNSNCQR5807-11-49 08:51:00 Test Item Value Reference Range Interpretation Comments MCV (test code = MCV) 89.1 80.0-98.[address] [facility] [place], TXUynkkswQUASGPIJAX5844-09-71 08:51:00 Test Item Value Reference Range Interpretation Comments MCHC (test code = MCHC) 33.7 32.0-36.[address] [facility] [place], TXGewnucoFTEBQGSEAE5452-75-91 08:51:00 Test Item Value Reference Range Interpretation Comments RDW (test code = RDW) 13.8 11.5-14.[address] [facility] [place], TXOurnozsIBNJVCPHFH8411-03-06 08:51:00 Test Item Value Reference Range Interpretation Comments Platelet (test code = Platelet) 266 133-[address] [facility] [place], TXSajzyguNGZMRZFITO7532-29-47 08:51:00 Test Item Value Reference Range Interpretation Comments Hgb (test code = Hgb) 12.1 12.0-16.[address] [facility] [place], TXLxntsdvZXEHLMTLKF1384-88-12 08:51:00 Test Item Value Reference Range Interpretation Comments Hct (test code = Hct) 35.8 36.0-48.[address] [facility] [place], TXCnwkovfBOPVRZFBWN6322-80-08 08:51:00 Test Item Value Reference Range Interpretation Comments WBC (test code = WBC) 5.7 3.7-10.[address] [facility] [place], TXSabcuetXWUCHVRUQD6603-08-49 08:51:00 Test Item Value Reference Range Interpretation Comments RBC (test code = RBC) 4.01 4.20-5.[address] [facility] [place], TXHzcvdvbDQWPIYBDYV1702-13-03 08:51:00 Test Item Value Reference Range Interpretation Comments Segs (test code = Segs) 53.8 45.0-75.[address] [facility] [place], TXTkzdqgjRJDMVGVKDE7514-25-66 08:51:00 Test Item Value Reference Range Interpretation Comments Monocytes # (test code 0.6 See_Comment [Aut omated message] The = Monocytes #) system which generated this result tra nsmitted reference range : <=0.8. The reference r robbie was not used to int erpret this result as normal/abnormal . [facility] [place], TXJswxuebZTJHQIEKSR7291-88-05 08:51:00 Test Item Value Reference Range Interpretation Comments Basophils (test code = 0.7 See_Comment [Aut omated message] The Basophils) system which ge nerated this result tra nsmitted reference range : <=1.0. The reference r robbie was not used to int erpret this result as normal/abnormal . [facility] [place], TXQjrerswCINWRPNEMH3452-43-46 08:51:00 Test Item Value Reference Range Interpretation Comments Segs-Bands # (test code = Segs-Bands #) 3.1 1.5-8.[address] [facility] [place], TXFrhlvkoISKAAWCIHM5745-12-61 08:51:00 Test Item Value Reference Range Interpretation Comments Monocytes (test code = Monocytes) 9.7 2.0-12.[address] [facility] [place], TXCpjgfgfIGAXJKGZCM6913-19-87 08:51:00 Test Item Value Reference Range Interpretation Comments Eosinophils (test code = 3.5 See_Comment [A utomated message] The Eosinophils) system which ge nerated this result tra nsmitted reference range : <=4.0. The reference r robbie was not used to int erpret this result as normal/abnormal . [facility] [place], TXCfogjzmBDHRANMMPK9267-92-20 08:51:00 Test Item Value Reference Range Interpretation Comments Lymphocytes (test code = Lymphocytes) 32.3 20.0-40.[address] [facility] [place], TXMnjwlbfQCYXGCYATX8721-11-13 08:51:00 Test Item Value Reference Range Interpretation Comments Eosinophils # (test code 0.2 See_Comment [A utomated message] The = Eosinophils #) system whic h generated this result tra nsmitted reference range : <=0.5. The reference r robbie was not used to int erpret this result as normal/abnormal . [facility] [place], TXPenejyvHANKMRDSCM5021-16-92 08:51:00 Test Item Value Reference Range Interpretation Comments Lymphocytes # (test code = Lymphocytes 1.8 1.0-5.5 #) [facility] [place], TXWdwhmjmGGOMDOBMDY5124-97-38 08:51:00 Test Item Value Reference Range Interpretation Comments MPV (test code = MPV) 7.6 7.4-10.[address] [facility] [place], TXUczzznqIGSXCWEEVL9273-83-15 08:51:00 Test Item Value Reference Range Interpretation Comments MCH (test code = MCH) 30.0 pg 27.0-31.[address] [facility] [place], TXOjljqthFZCZIQUUYC9122-67-68 08:51:00 Test Item Value Reference Range Interpretation Comments MCV (test code = MCV) 89.1 80.0-98.[address] [facility] [place], TXWiercqfPWVHWEKHNF6617-96-37 08:51:00 Test Item Value Reference Range Interpretation Comments MCHC (test code = MCHC) 33.7 32.0-36.[address] [facility] [place], TXHgzbyimYQZSUKGEXE5445-09-25 08:51:00 Test Item Value Reference Range Interpretation Comments RDW (test code = RDW) 13.8 11.5-14.[address] [facility] [place], TXZidmgygGITAYEUKTM7765-30-53 08:51:00 Test Item Value Reference Range Interpretation Comments Platelet (test code = Platelet) 266 133-[address] [facility] [place], TXUgqcuseVPEBJJQYDB0190-10-12 08:51:00 Test Item Value Reference Range Interpretation Comments Hgb (test code = Hgb) 12.1 12.0-16.[address] [facility] [place], TXTwzzuenRMXROKTMMV6473-59-52 08:51:00 Test Item Value Reference Range Interpretation Comments Hct (test code = Hct) 35.8 36.0-48.[address] [facility] [place], TXRssgkgfQCCKZHPZQZ8640-44-55 08:51:00 Test Item Value Reference Range Interpretation Comments WBC (test code = WBC) 5.7 3.7-10.[address] [facility] [place], TXCbzmdcgPSSGRQKGGC3825-46-46 08:51:00 Test Item Value Reference Range Interpretation Comments RBC (test code = RBC) 4.01 4.20-5.[address] [facility] [place], TXYouvfhmCHXDGALEFR5417-94-91 08:51:00 Test Item Value Reference Range Interpretation Comments Segs (test code = Segs) 53.8 45.0-75.[address] [facility] [place], TXXhjqeegITIBUABFJS4189-44-52 08:51:00 Test Item Value Reference Range Interpretation Comments Monocytes # (test code 0.6 See_Comment [Aut omated message] The = Monocytes #) system which generated this result tra nsmitted reference range : <=0.8. The reference r robbie was not used to int erpret this result as normal/abnormal . [facility] [place], TXZpqpwikQKESIQNIBT6061-39-37 08:51:00 Test Item Value Reference Range Interpretation Comments Basophils (test code = 0.7 See_Comment [Aut omated message] The Basophils) system which ge nerated this result tra nsmitted reference range : <=1.0. The reference r robbie was not used to int erpret this result as normal/abnormal . [facility] [place], TXRnakcfvQAGOCIWXFA7343-40-69 08:51:00 Test Item Value Reference Range Interpretation Comments Segs-Bands # (test code = Segs-Bands #) 3.1 1.5-8.[address] [facility] [place], TXChdynxkSXLRTOXJPU6664-29-06 08:51:00 Test Item Value Reference Range Interpretation Comments Monocytes (test code = Monocytes) 9.7 2.0-12.[address] [facility] [place], TXCaibjhzZIZRZNYIHA3156-10-60 08:51:00 Test Item Value Reference Range Interpretation Comments Eosinophils (test code = 3.5 See_Comment [A utomated message] The Eosinophils) system which ge nerated this result tra nsmitted reference range : <=4.0. The reference r robbie was not used to int erpret this result as normal/abnormal . [facility] [place], TXPkznfguBYAIMYIKFW5592-39-08 08:51:00 Test Item Value Reference Range Interpretation Comments Lymphocytes (test code = Lymphocytes) 32.3 20.0-40.[address] [facility] [place], TXHoswzyxAVVGXLGPOV8763-66-58 08:51:00 Test Item Value Reference Range Interpretation Comments Eosinophils # (test code 0.2 See_Comment [A utomated message] The = Eosinophils #) system whic h generated this result tra nsmitted reference range : <=0.5. The reference r robbie was not used to int erpret this result as normal/abnormal . [facility] [place], TXTrlztouJFDCGIJQVB0859-42-99 08:51:00 Test Item Value Reference Range Interpretation Comments Lymphocytes # (test code = Lymphocytes 1.8 1.0-5.5 #) [facility] [place], TXYgddmwoOZNGWEATDG7257-62-61 08:51:00 Test Item Value Reference Range Interpretation Comments MPV (test code = MPV) 7.6 7.4-10.[address] [facility] [place], TXBqxglzmRMJMEMEAZW5947-71-36 08:51:00 Test Item Value Reference Range Interpretation Comments MCH (test code = MCH) 30.0 pg 27.0-31.[address] [facility] [place], TXUhltfdmDPWXLXDVJE7686-05-11 08:51:00 Test Item Value Reference Range Interpretation Comments MCV (test code = MCV) 89.1 80.0-98.[address] [facility] [place], TXBskyfzoFEWLXHNWAM4996-58-24 08:51:00 Test Item Value Reference Range Interpretation Comments MCHC (test code = MCHC) 33.7 32.0-36.[address] [facility] [place], TXLsyzcepXOTNHVAKMV4928-95-92 08:51:00 Test Item Value Reference Range Interpretation Comments RDW (test code = RDW) 13.8 11.5-14.[address] [facility] [place], TXTgupzloDRGEQKSJNF4919-16-87 08:51:00 Test Item Value Reference Range Interpretation Comments Platelet (test code = Platelet) 266 133-[address] [facility] [place], TXAhhdbzdSMHAKUWASI1072-22-60 08:51:00 Test Item Value Reference Range Interpretation Comments Hgb (test code = Hgb) 12.1 12.0-16.[address] [facility] [place], TXKifnfzxXXWHVAYNHL5389-77-01 08:51:00 Test Item Value Reference Range Interpretation Comments Hct (test code = Hct) 35.8 36.0-48.[address] [facility] [place], TXIchxcfxQEBVKMUXRF8918-88-45 08:51:00 Test Item Value Reference Range Interpretation Comments WBC (test code = WBC) 5.7 3.7-10.[address] [facility] [place], TXVwyjmgpMXXKMDCXGD4072-95-40 08:51:00 Test Item Value Reference Range Interpretation Comments RBC (test code = RBC) 4.01 4.20-5.40 [facility]2016-08-29 06:54:00 Test Item Value Reference Range Interpretation Comments Bili Total (test code = Bili Total) 0.5 0.2-1.3 [facility]2016-08-29 06:54:00 Test Item Value Reference Range Interpretation Comments Alk Phos (test code = Alk Phos) 66 39-136 [facility]2016-08-29 06:54:00 Test Item Value Reference Range Interpretation Comments AST (test code = AST) 23 See_Comment [Auto mated message] The system which ge nerated this result transmit randolph reference range : <=37. The reference range was not used to interpr et this result as juan m l/abnormal. [facility]2016-08-29 06:54:00 Test Item Value Reference Range Interpretation Comments Albumin Lvl (test code = Albumin Lvl) 3.2 3.5-5.0 [facility]2016-08-29 06:54:00 Test Item Value Reference Range Interpretation Comments ALT (test code = ALT) 29 See_Comment [Auto mated message] The system which ge nerated this result transmit randolph reference range : <=65. The reference range was not used to interpr et this result as juan m l/abnormal. [facility]2016-08-29 06:54:00 Test Item Value Reference Range Interpretation Comments Total Protein (test code = Total 7.4 6.4-8.4 Protein) [facility]2016-08-29 06:54:00 Test Item Value Reference Range Interpretation Comments B/C Ratio (test code = B/C Ratio) 02-16 [facility] [id number] 06:54:00 Test Item Value Reference Range Interpretation Comments A/G Ratio (test code = A/G Ratio) 0.8 0.7-1.6 [facility]2016-08-29 06:54:00 Test Item Value Reference Range Interpretation Comments Globulin (test code = Globulin) 4.2 2.7-4.2 [facility]2016-08-29 06:54:00 Test Item Value Reference Range Interpretation Comments Bili Total (test code = Bili Total) 0.5 0.2-1.3 [facility]WELLMTZRI6946-73-92 06:54:00 Test Item Value Reference Range Interpretation Comments Alk Phos (test code = Alk Phos) 66 39-136 [facility]2016-08-29 06:54:00 Test Item Value Reference Range Interpretation Comments AST (test code = AST) 23 See_Comment [Auto mated message] The system which ge nerated this result transmit randolph reference range : <=37. The reference range was not used to interpr et this result as juan m l/abnormal. [facility] [id number] 06:54:00 Test Item Value Reference Range Interpretation Comments Albumin Lvl (test code = Albumin Lvl) 3.2 3.5-5.0 [facility] [id number] 06:54:00 Test Item Value Reference Range Interpretation Comments ALT (test code = ALT) 29 See_Comment [Auto mated message] The system which ge nerated this result transmit randolph reference range : <=65. The reference range was not used to interpr et this result as juan m l/abnormal. [facility] [id number] 06:54:00 Test Item Value Reference Range Interpretation Comments Total Protein (test code = Total 7.4 6.4-8.4 Protein) [facility]2016-08-29 06:54:00 Test Item Value Reference Range Interpretation Comments B/C Ratio (test code = B/C Ratio) 02-16 [facility] [id number] 06:54:00 Test Item Value Reference Range Interpretation Comments A/G Ratio (test code = A/G Ratio) 0.8 0.7-1.6 [facility]annCHE[facility] [id number] 06:54:00 Test Item Value Reference Range Interpretation Comments Globulin (test code = Globulin) 4.2 2.7-4.2 [facility] [employer] EYWCU3047-04-25 06:54:00 Test Item Value Reference Range Interpretation Comments Bili Total (test code = Bili Total) 0.5 0.2-1.3 [facility] [employer] [id number] 06:54:00 Test Item Value Reference Range Interpretation Comments Alk Phos (test code = Alk Phos) 66 39-136 [facility] [employer] [id number] 06:54:00 Test Item Value Reference Range Interpretation Comments AST (test code = AST) 23 See_Comment [Auto mated message] The system which ge nerated this result transmit randolph reference range : <=37. The reference range was not used to interpr et this result as juan m l/abnormal. [facility] [employer] MKZYK1792-84-56 06:54:00 Test Item Value Reference Range Interpretation Comments Albumin Lvl (test code = Albumin Lvl) 3.2 3.5-5.0 [facility] [employer] [id number] 06:54:00 Test Item Value Reference Range Interpretation Comments ALT (test code = ALT) 29 See_Comment [Auto mated message] The system which ge nerated this result transmit randolph reference range : <=65. The reference range was not used to interpr et this result as juan m l/abnormal. [facility] [employer] [id number] 06:54:00 Test Item Value Reference Range Interpretation Comments Total Protein (test code = Total 7.4 6.4-8.4 Protein) [facility] [employer] [id number] 06:54:00 Test Item Value Reference Range Interpretation Comments B/C Ratio (test code = B/C Ratio) 19 6-25 [facility] [employer] [id number] 06:54:00 Test Item Value Reference Range Interpretation Comments A/G Ratio (test code = A/G Ratio) 0.8 0.7-1.6 [facility] [employer] [id number] 06:54:00 Test Item Value Reference Range Interpretation Comments Globulin (test code = Globulin) 4.2 2.7-4.2 [facility] [id number] 03:48:00 Test Item Value Reference Range Interpretation Comments Troponin-I (test code no gt See_Comment [Auto mated message] The = Troponin-I) system which g enerated this result transmit randolph reference range : <=0.40. The reference r robbie was not used to interpr et this result as juan m l/abnormal. [id number] 03:48:00 Test Item Value Reference Range Interpretation Comments PTT (test code = PTT) 30.5 s 22.9-35.8 [id number] 03:48:00 Test Item Value Reference Range Interpretation Comments Etoh (%) (test code = Etoh (%)) no gt [id number] 03:48:00 Test Item Value Reference Range Interpretation Comments Ethanol Lvl (test code = Ethanol Lvl) no gt [facility] AND [id number] 03:48:00 Test Item Value Reference Range Interpretation Comments UA Renal Epi (test code = UA Renal Epi) [facility] AND [id number] 03:48:00 Test Item Value Reference Range Interpretation Comments UA Urobilinogen (test code = UA <=1.0 mg/dL 0.1-1.0 Urobilinogen) [facility] AND [id number] 03:48:00 Test Item Value Reference Range Interpretation Comments UA Color (test code = Yellow *NA*(04/21/16 UA Color) 10:48 PM) [facility] AND [id number] 03:48:00 Test Item Value Reference Range Interpretation Comments UA pH (test code = UA pH) 8.0 5.0-8.0 [facility] AND [id number] 03:48:00 Test Item Value Reference Range Interpretation Comments UA Spec Grav (test code = UA Spec Grav) 1.011 [facility] AND [id number] 03:48:00 Test Item Value Reference Range Interpretation Comments UA Turbidity (test code Slight *ABN*(04/21/16 = UA Turbidity) 10:48 PM) [facility] AND [id number] 03:48:00 Test Item Value Reference Range Interpretation Comments UA Glucose (test code = UA Negative mg/dL Glucose) [facility] AND [id number] 03:48:00 Test Item Value Reference Range Interpretation Comments UA Blood (test code = Negative (04/21/16 10:48 UA Blood) PM) [facility] AND [id number] 03:48:00 Test Item Value Reference Range Interpretation Comments UA Protein (test code = UA Protein) 30 mg/dL [facility] AND [id number] 03:48:00 Test Item Value Reference Range Interpretation Comments UA Bili (test code = Negative *NA*(04/21/16 UA Bili) 10:48 PM) [facility] AND [id number] 03:48:00 Test Item Value Reference Range Interpretation Comments UA Ketones (test code = UA Negative mg/dL Ketones) [facility] AND [id number] 03:48:00 Test Item Value Reference Range Interpretation Comments UA Nitrite (test code Negative (04/21/16 10:48 = UA Nitrite) PM) [facility] AND [id number] 03:48:00 Test Item Value Reference Range Interpretation Comments UA Leuk Est (test Negative (04/21/16 10:48 code = UA Leuk Est) PM) [facility] AND [id number] 03:48:00 Test Item Value Reference Range Interpretation Comments UA Amorph Chari (test code = Occasional /HPF UA Amorph Chari) [facility] AND [id number] 03:48:00 Test Item Value Reference Range Interpretation Comments UA WBC (test code = 1 See_Comment [Automa randolph message] The UA WBC) system which ge nerated this result transmit randolph reference range : <=5. The reference range was not used to interpr et this result as juan m l/abnormal. [facility] AND [id number] 03:48:00 Test Item Value Reference Range Interpretation Comments UA Mucus (test code = UA Mucus) Few /LPF [facility] AND [id number] 03:48:00 Test Item Value Reference Range Interpretation Comments UA Sq Epi (test code = UA Sq Occasional /LPF Epi) [facility] [id number] 03:48:00 Test Item Value Reference Range Interpretation Comments Troponin-I (test code no gt See_Comment [Auto mated message] The = Troponin-I) system which g enerated this result transmit randolph reference range : <=0.40. The reference r robbie was not used to interpr et this result as juan m l/abnormal. [facility] [id number] 03:48:00 Test Item Value Reference Range Interpretation Comments PTT (test code = PTT) 30.5 s 22.9-35.8 [facility] [id number] 03:48:00 Test Item Value Reference Range Interpretation Comments Etoh (%) (test code = Etoh (%)) no gt [facility] [id number] 03:48:00 Test Item Value Reference Range Interpretation Comments Ethanol Lvl (test code = Ethanol Lvl) no gt [facility] AND [id number] 03:48:00 Test Item Value Reference Range Interpretation Comments UA Renal Epi (test code = UA Renal Epi) [facility] AND [id number] 03:48:00 Test Item Value Reference Range Interpretation Comments UA Urobilinogen (test code = UA <=1.0 mg/dL 0.1-1.0 Urobilinogen) [facility] AND [id number] 03:48:00 Test Item Value Reference Range Interpretation Comments UA Color (test code = Yellow *NA*(04/21/16 UA Color) 10:48 PM) [facility] AND [id number] 03:48:00 Test Item Value Reference Range Interpretation Comments UA pH (test code = UA pH) 8.0 5.0-8.0 [facility] AND [id number] 03:48:00 Test Item Value Reference Range Interpretation Comments UA Spec Grav (test code = UA Spec Grav) 1.011 [facility] AND [id number] 03:48:00 Test Item Value Reference Range Interpretation Comments UA Turbidity (test code Slight *ABN*(04/21/16 = UA Turbidity) 10:48 PM) [facility] AND [id number] 03:48:00 Test Item Value Reference Range Interpretation Comments UA Glucose (test code = UA Negative mg/dL Glucose) [facility] AND [id number] 03:48:00 Test Item Value Reference Range Interpretation Comments UA Blood (test code = Negative (04/21/16 10:48 [facility] Blood) PM) [facility] [id number] 03:48:00 Test Item Value Reference Range Interpretation Comments UA Protein (test code = UA Protein) 30 mg/dL [facility] [id number] 03:48:00 Test Item Value Reference Range Interpretation Comments UA Bili (test code = Negative *NA*(04/21/16 UA Bili) 10:48 PM) [facility] [id number] 03:48:00 Test Item Value Reference Range Interpretation Comments UA Ketones (test code = UA Negative mg/dL Ketones) [facility] [id number] 03:48:00 Test Item Value Reference Range Interpretation Comments UA Nitrite (test code Negative (04/21/16 10:48 = UA Nitrite) PM) [facility] [id number] 03:48:00 Test Item Value Reference Range Interpretation Comments UA Leuk Est (test Negative (04/21/16 10:48 code = UA Leuk Est) PM) [facility] [id number] 03:48:00 Test Item Value Reference Range Interpretation Comments UA Amorph Chari (test code = Occasional /HPF UA Amorph Chari) [facility] [id number] 03:48:00 Test Item Value Reference Range Interpretation Comments UA WBC (test code = 1 See_Comment [Automa randolph message] The UA WBC) system which ge nerated this result transmit randolph reference range : <=5. The reference range was not used to interpr et this result as juan m l/abnormal. [facility] [id number] 03:48:00 Test Item Value Reference Range Interpretation Comments UA Mucus (test code = UA Mucus) Few /LPF [facility] [id number] 03:48:00 Test Item Value Reference Range Interpretation Comments UA Sq Epi (test code = UA Sq Occasional /LPF Epi) [facility] [id number] 03:48:00 Test Item Value Reference Range Interpretation Comments Troponin-I (test code no gt See_Comment [Auto mated message] The = Troponin-I) system which g enerated this result transmit randolph reference range : <=0.40. The reference r robbie was not used to interpr et this result as juan m l/abnormal. [facility] [id number] 03:48:00 Test Item Value Reference Range Interpretation Comments PTT (test code = PTT) 30.5 s 22.9-35.8 [facility] [id number] 03:48:00 Test Item Value Reference Range Interpretation Comments Etoh (%) (test code = Etoh (%)) no gt [facility] [id number] 03:48:00 Test Item Value Reference Range Interpretation Comments Ethanol Lvl (test code = Ethanol Lvl) no gt [facility] [id number] 03:48:00 Test Item Value Reference Range Interpretation Comments UA Renal Epi (test code = UA Renal Epi) [facility] AND [id number] 03:48:00 Test Item Value Reference Range Interpretation Comments UA Urobilinogen (test code = UA <=1.0 mg/dL 0.1-1.0 Urobilinogen) [facility] AND [id number] 03:48:00 Test Item Value Reference Range Interpretation Comments UA Color (test code = Yellow *NA*(04/21/16 UA Color) 10:48 PM) [facility] AND [id number] 03:48:00 Test Item Value Reference Range Interpretation Comments UA pH (test code = UA pH) 8.0 5.0-8.0 [facility] AND [id number] 03:48:00 Test Item Value Reference Range Interpretation Comments UA Spec Grav (test code = UA Spec Grav) 1.011 [facility] AND [id number] 03:48:00 Test Item Value Reference Range Interpretation Comments UA Turbidity (test code Slight *ABN*(04/21/16 = UA Turbidity) 10:48 PM) [facility] AND [id number] 03:48:00 Test Item Value Reference Range Interpretation Comments UA Glucose (test code = UA Negative mg/dL Glucose) [facility] AND [id number] 03:48:00 Test Item Value Reference Range Interpretation Comments UA Blood (test code = Negative (04/21/16 10:48 UA Blood) PM) [facility] AND [id number] 03:48:00 Test Item Value Reference Range Interpretation Comments UA Protein (test code = UA Protein) 30 mg/dL [facility] AND [id number] 03:48:00 Test Item Value Reference Range Interpretation Comments UA Bili (test code = Negative *NA*(04/21/16 UA Bili) 10:48 PM) [facility] AND [id number] 03:48:00 Test Item Value Reference Range Interpretation Comments UA Ketones (test code = UA Negative mg/dL Ketones) [facility] AND [id number] 03:48:00 Test Item Value Reference Range Interpretation Comments UA Nitrite (test code Negative (04/21/16 10:48 = UA Nitrite) PM) [facility] AND [id number] 03:48:00 Test Item Value Reference Range Interpretation Comments UA Leuk Est (test Negative (04/21/16 10:48 code = UA Leuk Est) PM) [facility] AND [id number] 03:48:00 Test Item Value Reference Range Interpretation Comments UA Amorph Chari (test code = Occasional /HPF UA Amorph Chari) [facility] AND [id number] 03:48:00 Test Item Value Reference Range Interpretation Comments UA WBC (test code = 1 See_Comment [Automa randolph message] The UA WBC) system which ge nerated this result transmit randolph reference range : <=5. The reference range was not used to interpr et this result as juan m l/abnormal. [facility] AND [id number] 03:48:00 Test Item Value Reference Range Interpretation Comments UA Mucus (test code = UA Mucus) Few /LPF [facility] AND [id number] 03:48:00 Test Item Value Reference Range Interpretation Comments UA Sq Epi (test code = UA Sq Occasional /LPF Epi) [facility]
--- NOTE | 2022-10-29 19:38 | RAD REPORT ---
EXAM DESCRIPTION: RAD - Chest Single View - 10/29/2022 7:31 pm CLINICAL HISTORY: CHEST PAIN Chest pain. COMPARISON: Chest Single View dated 07/24/2022; Chest Single View dated 07/22/2022; Abdomen 1 View ( KUB) dated 04/22/2022; Chest Single View dated 04/21/2022 FINDINGS: Portable technique limits examination quality. Mild bilateral pulmonary opacities are present likely chronic. The heart is mildly enlarged in size. No displaced fractures.Hiatal hernia.
[2022-10-29 20:46] LABS: Absolute Lymphocytes (CBC) 1.1 K/uL (0.7-4.9); Hematocrit 29.3 % (36.0-45.0); Lymphocytes % 17.4 % (15.3-44.8); MPV 6.8 fL (7.6-11.3); RBC Red Blood Cell Count 3.22 M/uL (3.86-4.86)
[2022-10-29 21:09] LABS: Troponin High Sensitivity 7.1 pg/mL (<58.9)
[2022-10-29] MEDS ORDERED: CALCIUM GLUCONATE 1 GM IVPB 1 GM/50 ML BAG IV ONE (21:28)
[2022-10-29] MEDS ORDERED: SOD POLYSTYREN SUL 15 GM/60 ML UCUP ONE (21:28)
--- NOTE | 2022-10-29 21:31 | P.HP ---
Certification for Inpatient Patient admitted to: Observation With expected LOS: <2 Midnights Patient will require the following post-hospital care: None Practitioner: I am a practitioner with admitting privileges, knowledge of patient current condition, hospital course, and medical plan of care. Services: Services provided to patient in accordance with Admission requirements found in Title 42 Section 412.3 of the Code of Federal Regulations Patient History Date of Service: 10/29/22 Primary Care Provider: Gary Reason for admission: Hyperkalemia History of Present Illness: Patient is an 87-year-old female with past medical history of afib on eliquis, CAD, hypertension, GERD, and CKD3 who was sent to the ED by her PCP with an elevated potassium level from outpatient labs. Patient states that she had labs drawn yesterday and was informed today that her potassium was 6.7 and creatinine was 2.3. Patient has no complaints at this time. She is on 25 mg spironolactone daily. Today her potassium is 6. No EKG changes. Cr is 1.7. She was given calcium gluconate and kayexalate in the emergency department. Patient will be admitted for observation. Allergies codeine Allergy (Mild, Verified 01/05/21 16:49) upset stomach nitrofurantoin [From Macrobid] Allergy (Verified 01/05/21 16:49) Shortness of breath Penicillins Allergy (Verified 01/05/21 16:49) Hives Sulfa (Sulfonamide Antibiotics) Allergy (Verified 01/05/21 16:49) Hives/pulmonary fibrosis latex adhesives Allergy (Uncoded 01/05/21 16:49) "skin comes off" Home medications list reviewed: Yes Home Medications: Levothyroxine [Synthroid*] 1 tab PO DAILY #30 tab 07/12/16 Mirabegron [Myrbetriq] 50 mg PO DAILY 01/05/21 Apixaban [Eliquis *] 2.5 mg PO BID #60 tablet 02/04/22 Amiodarone HCl [Cordarone*] 1 tab DAILY 04/22/22 Fluoxetine HCl 1 tab DAILY 04/22/22 Omeprazole [Prilosec] 40 mg DAILY 04/22/22 Spironolactone 1 tab DAILY 04/22/22 Pantoprazole Sodium [Protonix] 40 mg PO BID 30 Days #60 tab 04/24/22 Cephalexin [Keflex*] 500 mg PO DAILY 07/23/22 Albuterol Neb [Proventil 0.083% Neb Soln] 2.5 mg NEB [id number] #60 amp 07/24/22 Hydrocodone 5/APAP 325 [[place] 5/325*] 1 tab PO Q6H PRN #30 tab 07/24/22 Ipratropium Neb [Atrovent*] 0.5 mg NEB [id number] #60 amp 07/24/22 Vitamin D [Drisdol*] 50,000 unit PO Q7D@0900 #10 cap 07/24/22 levoFLOXacin [Levaquin*] 500 mg PO DAILY #7 tab 07/24/22 Nebulizer 1 each MC DAILY #1 box 07/26/22 Nebulizer Accessories [Aeroneb Go] 1 each MC DAILY #1 box 07/26/22 - Past Medical/Surgical History Diabetic: No -: Hypertension -: Coronary artery disease -: Chronic renal disease (Dr. 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 - Family History Mother -: Cancer Notes: PT states, " She from "Old Age", she was 89." Father -: Stroke Notes: from abdominal aneurysm - Social History Smoking Status: Never smoker Alcohol use: No CD- Drugs: No Caffeine use: Yes Place of Residence: Home Review of Systems Unremarkable Physical Examination - Vital Signs Temperature: 98.6 F Blood Pressure: 148/66 Pulse: 59 Respirations: 18 Pulse Ox (%): 96 - Physical Exam General: Alert, In no apparent distress HEENT: Atraumatic, EOMI, Sclerae nonicteric Neck: Supple, 2+ carotid pulse no bruit Respiratory: Clear to auscultation bilaterally, Normal air movement Cardiovascular: Regular rate/rhythm, Normal S1 S2 Gastrointestinal: Normal bowel sounds, No tenderness Musculoskeletal: No tenderness Integumentary: No rashes Neurological: Normal speech, Normal affect - Studies Laboratory Data (last 24 hrs) 03/07/23 20:30: WBC 6.20, Hgb 9.8 L, Hct 29.3 L, Plt Count 293 10/29/22 20:30: Sodium 134 L, Potassium 6.0 H*, BUN 43 H, Creatinine 1.76 H, Glucose 90 Assessment and Plan - Problems (Diagnosis) (1) Acute kidney injury Current Visit: Yes Status: Acute (2) Hyperkalemia Current Visit: Yes Status: Acute (3) Anemia Current Visit: Yes Status: Chronic Qualifiers: Anemia type: due to chronic kidney disease Chronic kidney disease stage: stage 3 (moderate) Chronic kidney disease stage 3 subtype: stage 3b (GFR 30- 44) Qualified Code(s): N18.32 - Chronic kidney disease, stage 3b; D63.1 - Anemia in chronic kidney disease (4) Chronic kidney disease Current Visit: No Status: Chronic Qualifiers: Chronic kidney disease stage: stage 3 (moderate) Chronic kidney disease stage 3 subtype: stage 3b (GFR 30-44) Qualified Code(s): N18.32 - Chronic kidney disease, stage 3b (5) Coronary artery disease Current Visit: Yes Status: Chronic Qualifiers: Coronary Disease-Associated Artery/Lesion type: [place] artery [place] vs. transplanted heart: [place] heart Associated angina: without angina Qualified Code(s): I25.10 - Atherosclerotic heart disease of [place] coronary artery without angina pectoris (6) Hypertension Current Visit: Yes Status: Chronic Qualifiers: Hypertension type: primary hypertension Qualified Code(s): I10 - Essential (primary) hypertension (7) Hypothyroidism Current Visit: Yes Status: Chronic Qualifiers: Hypothyroidism type: unspecified Qualified Code(s): E03.9 - Hypothyroidism, unspecified - Plan Patient is admitted for observation for hyperkalemia, RENETTA. Suspect hyperkalemia secondary to spironolactone. Received calcium gluconate and kayexalate in the ED. Check BMPs q4h. No EKG changes. Monitor on telemetry. Patient is asymptomatic. IV hydration. Nephrology consult. HOLD spironolactone. Resume other home meds, eliquis for VTE prophylaxis. Discharge Plan: Home Plan to discharge in: 24 Hours - Advance Directives Does patient have a Living Will: No Does patient have a Durable POA for Healthcare: No - Code Status/Comfort Care Code Status Assessed: Yes Code Status: Full Code Physician Review: Patient Assessed, Agree with Above Assessment and Plan Critical Care: No Time Spent Managing Pts Care (In Minutes): 50
[2022-10-29] MEDS ORDERED: AMLODIPINE 5 MG TAB ONE (22:38)
[2022-10-29] MEDS ORDERED: APIXABAN 5 MG TABLET ONE (22:38)
[2022-10-29 23:02] LABS: SARS-CoV-2 Antigen Rapid Res Negative (Negative)
[2022-10-29] MEDS ORDERED: ACETAMINOPHEN 500 MG TAB PO PRN (23:12)
[2022-10-29] MEDS ORDERED: ONDANSETRON 4 MG/2 ML VIAL IV PRN (23:12)
[2022-10-29] MEDS ORDERED: NA CHLORIDE 0.9% 1,000 ML IV SCH (23:12)
[2022-10-29] MEDS ORDERED: NA CHLORIDE 0.9% 1,000 ML ONE (23:21)
[2022-10-30 03:34] VITALS: BMI 19.1
[2022-10-30 04:13] LABS: Hematocrit 27.5 % (36.0-45.0); Lymphocytes % 17.5 % (15.3-44.8); MCV 91.1 fL (80-100); MPV 6.7 fL (7.6-11.3); RBC Red Blood Cell Count 3.02 M/uL (3.86-4.86)
[2022-10-30 04:51] LABS: Magnesium 1.8 mg/dL (1.6-2.4); Phosphorus 4.3 mg/dL (2.5-4.9); Thyroid Stimulating Hormone 2.69 uIU/mL (0.358-3.740)
[2022-10-30 04:55] LABS: Potassium 5.6 mmol/L (3.5-5.1)
[2022-10-30 05:26] VITALS: O2SAT 96
[2022-10-30] MEDS ORDERED: CALCIUM GLUC 10% INJ 4.65 MEQ in NA CHLORIDE 0.9% 100 ML IV ONE (05:43)
[2022-10-30] MEDS ORDERED: NA CHLORIDE 0.9% 100 ML ONE (06:24)
[2022-10-30] MEDS ORDERED: CALCIUM GLUCONATE 1 GM IVPB 1 GM/50 ML BAG IV ONE (06:29)
[2022-10-30] MEDS ORDERED: PNEUMOCOCCAL VACCINE 0.5 ML IMVAC ONE (08:00)
[2022-10-30] MEDS ORDERED: MAGNESIUM SULFATE 1 gm IVPB 1 GM/100 ML BAG IV ONE (09:00)
[2022-10-30] MEDS ORDERED: SOD POLYSTYREN SUL 15 GM/60 ML UCUP PO ONE (10:17)
[2022-10-30] MEDS: FUROSEMIDE 20 MG TABLET PO SCH ×2 (10:30→11:06)
[2022-10-30] MEDS: AMLODIPINE 2.5 MG TAB PO SCH ×2 (11:07→21:10)
--- NOTE | 2022-10-30 11:25 | P.CNS ---
Date of Consult: 10/30/22 Reason for Consult: Renal insufficiency, hyperkalemia Requesting Physician: kalani love Primary Care Provider: Gary Chief Complaint: Hyperkalemia History of Present Illness: Patient is an 87-year-old female with past medical history of unspecified Afib on eliquis, reports of CAD, hypertension, GERD, prior colectomy and CKD3 who has been seen by our group during prior admission and who was sent to the ED yesterday by her PCP with an elevated potassium level from outpatient labs. Patient denies any acute complaints, reports some intermittent MARR. Reports intermittent abdominal discomfort or unsettled stomach, reports last BM was on Mon. Pt was given hyperkalemia washout therapy in the ER last night. Allergies codeine Allergy (Mild, Verified 01/05/21 16:49) upset stomach nitrofurantoin [From Macrobid] Allergy (Verified 01/05/21 16:49) Shortness of breath Penicillins Allergy (Verified 01/05/21 16:49) Hives Sulfa (Sulfonamide Antibiotics) Allergy (Verified 01/05/21 16:49) Hives/pulmonary fibrosis latex adhesives Allergy (Uncoded 01/05/21 16:49) "skin comes off" Home Medications: Levothyroxine [Synthroid*] 1 tab PO DAILY #30 tab 07/12/16 Mirabegron [Myrbetriq] 50 mg PO DAILY 01/05/21 Apixaban [Eliquis *] 2.5 mg PO BID #60 tablet 02/04/22 Amiodarone HCl [Cordarone*] 1 tab DAILY 04/22/22 Fluoxetine HCl 1 tab PO DAILY 04/22/22 Omeprazole [Prilosec] 40 mg DAILY 04/22/22 Spironolactone 1 tab DAILY 04/22/22 Pantoprazole Sodium [Protonix] 40 mg PO BID 30 Days #60 tab 04/24/22 Cephalexin [Keflex*] 500 mg PO DAILY 07/23/22 Albuterol Neb [Proventil 0.083% Neb Soln] 2.5 mg NEB [id number] #60 amp 07/24/22 Hydrocodone 5/APAP 325 [[place] 5/325*] 1 tab PO Q6H PRN #30 tab 07/24/22 Ipratropium Neb [Atrovent*] 0.5 mg NEB [id number] #60 amp 07/24/22 Vitamin D [Drisdol*] 50,000 unit PO Q7D@0900 #10 cap 07/24/22 levoFLOXacin [Levaquin*] 500 mg PO DAILY #7 tab 07/24/22 Nebulizer 1 each MC DAILY #1 box 07/26/22 Nebulizer Accessories [Aeroneb Go] 1 each MC DAILY #1 box 07/26/22 Amiodarone HCl [Cordarone Tab] 200 mg PO DAILY 10/30/22 Amlodipine [Norvasc*] 2.5 mg PO BID 10/30/22 D-[place] 1 gm MC DAILY 10/30/22 Ferrous Sulfate [Iron] 325 mg PO DAILY 10/30/22 Folic Acid 1 mg PO DAILY 10/30/22 Guaifenesin [Mucinex] 600 mg PO DAILY 10/30/22 - Past Medical/Surgical History Diabetic: No -: Hypertension -: Coronary artery disease -: Chronic renal disease (Dr. 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 - Family History Mother Medical History: Cancer Notes: PT states, " She from "Old Age", she was 89." Father Medical History: Stroke Notes: from abdominal aneurysm - Social History Alcohol use: No CD- Drugs: No Caffeine use: Yes Place of Residence: Home Review of Systems General: Weakness Eyes: Unremarkable ENT: Unremarkable Respiratory: SOB with Excertion Cardiovascular: As per HPI Gastrointestinal: Abdominal Pain, As per HPI Genitourinary: Unremarkable Musculoskeletal: Unremarkable Integumentary: Unremarkable Neurological: Unremarkable Physical Examination Temp Pulse Resp BP Pulse Ox 97.5 F 67 16 187/62 H 94 10/30/22 08:00 10/30/22 11:07 10/30/22 08:00 10/30/22 11:07 10/30/22 08:00 General: Alert, In no apparent distress, Oriented x3, Other (Elderly, frail) HEENT: Atraumatic, Normocephalic Neck: Supple Respiratory: Normal air movement, Diminished Cardiovascular: Regular rate/rhythm, Systolic murmur Gastrointestinal: Soft and benign, Non-distended, No tenderness, No rebound Musculoskeletal: No clubbing, No swelling, Other (Muscle mass loss) Integumentary: No rashes, No tenderness/swelling Neurological: Normal speech, Normal tone, Normal affect Laboratory Data (last 24 hrs) 10/29/22 20:30: WBC 6.20, Hgb 9.8 L, Hct 29.3 L, Plt Count 293 10/29/22 20:30: Sodium 134 L, Potassium 6.0 H*, BUN 43 H, Creatinine 1.76 H, Glucose 90 Conclusions/Impression: A/P) Possible Stage 1 RENETTA on underlying CKD IIIb -Cr level has trended lower with overnight hydration, ok to d/c IVF as pt denies any N/V/D and able to maintain oral intake Hyperkalemia, recurrent -K level still moderately elevated, keep Spironolactone on hold and d/c on discharge. 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
[2022-10-30 11:26] LABS: Specific Gravity 1.015 (1.005-1.030); Urine Bacteria <20 /HPF (<20); Urine Bilirubin NEGATIVE (Negative); Urine Blood Negative (Negative); Urine Clarity Clear (Clear); Urine Color Light-Yellow (Yellow); Urine Glucose NEGATIVE (Negative); Urine Mucus Slight /HPF (None Seen); Urine Protein NEGATIVE (Negative); Urine Urobilinogen Normal (Normal); Urine WBC Clump Rare /HPF (None Seen); Urine pH 5.5 (5.0-7.0)
--- NOTE | 2022-10-30 13:03 | EKG ---
Test Date: 2022-10-29 Test Time: 20:25:34 Real Property Evaluator: ELIA MEASUREMENT RESULTS: Intervals: Rate: 59 OK: 166 QRSD: 102 QT: 486 QTc: 481 [place]: P: 89 OK: 166 QRS: 86 T: 75 INTERPRETIVE STATEMENTS: Sinus bradycardia with sinus arrhythmia Otherwise normal ECG Compared to ECG 04/21/2022 19:53:20 Sinus rhythm no longer present Electronically Signed On 10-30-22 13:01:27 PAPER REWINDER by Zhang Rivera
[2022-10-30] MEDS ORDERED: D50W 25 GM/50 ML SYRINGE IV ONE (15:36)
[2022-10-30] MEDS ORDERED: GLUCAGON 1 MG/VIAL IM PRN (15:37)
[2022-10-30] MEDS ORDERED: ALBUTEROL 2.5 MG/3 ML NEB SOL NEB ONE ×2 (15:38→16:00)
--- NOTE | 2022-10-30 15:57 | P.PN ---
Subjective Date of Service: 10/30/22 Primary Care Provider: Gary Chief Complaint: Hyperkalemia Patient denies any complain. She is persistently hyperkalemic today. Physical Examination - Vital Signs Temperature: 97.6 F Blood Pressure: 132/63 Pulse: 62 Respirations: 16 Pulse Ox (%): 95 - Studies Laboratory Data (last 24 hrs) 10/29/22 20:30: WBC 6.20, Hgb 9.8 L, Hct 29.3 L, Plt Count 293 10/29/22 20:30: Sodium 134 L, Potassium 6.0 H*, BUN 43 H, Creatinine 1.76 H, Glucose 90 Assessment And Plan - Current Problems (Diagnosis) (1) Hyperkalemia Current Visit: Yes Status: Acute (2) Coronary artery disease Current Visit: Yes Status: Chronic Qualifiers: Coronary Disease-Associated Artery/Lesion type: [place] artery [place] vs. transplanted heart: [place] heart Associated angina: without angina Qualified Code(s): I25.10 - Atherosclerotic heart disease of [place] coronary artery without angina pectoris (3) Anemia Current Visit: Yes Status: Chronic Qualifiers: Anemia type: due to chronic kidney disease Chronic kidney disease stage: stage 3 (moderate) Chronic kidney disease stage 3 subtype: stage 3b (GFR 30- 44) Qualified Code(s): N18.32 - Chronic kidney disease, stage 3b; D63.1 - Anemia in chronic kidney disease (4) Hypertension Current Visit: Yes Status: Chronic Qualifiers: Hypertension type: primary hypertension Qualified Code(s): I10 - Essential (primary) hypertension (5) Hypothyroidism Current Visit: Yes Status: Chronic Qualifiers: Hypothyroidism type: unspecified Qualified Code(s): E03.9 - Hypothyroidism, unspecified (6) Acute worsening of stage 3 chronic kidney disease Current Visit: No Status: Acute - Plan Physical Exam General: Alert, In no apparent distress, underweight. Neck: Supple, no JVD. Respiratory: Clear to auscultation bilaterally, Normal air movement Cardiovascular: Regular rate/rhythm, Normal S1 S2 Gastrointestinal: Normal bowel sounds, No tenderness Musculoskeletal: No tenderness Integumentary: No rashes Neurological: Normal speech, Normal affect. Plan: Hyperkalemia likely related to Aldactone. Nephrology is following and managing hyperkalemia Aldactone discontinued. Hyperkalemia treatment with D50, insulin, bicarb and Kayexalate. Patient reports allergy to sulfa and therefore declining Lasix. Nephrology is following for options-ethacrynic acid RENETTA is improving slightly. Continue amlodipine for hypertension. Monitor renal function.
[2022-10-30] MEDS ORDERED: INSULIN -REGULAR HUMAN 50 UNIT/0.5 ML ML IV ONE (16:00)
[2022-10-30] MEDS: ETHACRYNIC ACID 25 MG TABLET PO SCH (16:23)
[2022-10-30] MEDS: APIXABAN 2.5 MG TABLET PO SCH (21:29)
[2022-10-31 03:40] LABS: Absolute Lymphocytes (CBC) 1.1 K/uL (0.7-4.9); Hematocrit 26.2 % (36.0-45.0); Lymphocytes % 17.4 % (15.3-44.8); MCV 91.2 fL (80-100); MPV 7.2 fL (7.6-11.3); RBC Red Blood Cell Count 2.87 M/uL (3.86-4.86)
[2022-10-31 03:49] LABS: Potassium 5.2 mmol/L (3.5-5.1)
[2022-10-31 06:43] VITALS: TEMP 98.7
[2022-10-31] MEDS ORDERED: LEVOTHYROXINE SOD 0.075 MG TAB PO SCH (07:30)
[2022-10-31] MEDS ORDERED: AMIODARONE HCL 200 MG TAB PO SCH (09:00)
[2022-10-31] MEDS ORDERED: AMLODIPINE 2.5 MG TAB PO SCH (09:00)
[2022-10-31] MEDS ORDERED: FERROUS SULFATE 325 MG TAB PO SCH (09:00)
[2022-10-31] MEDS ORDERED: FOLIC ACID 1 MG TABLET PO SCH (09:00)
[2022-10-31] MEDS: AMLODIPINE 2.5 MG TAB PO SCH (09:26)
[2022-10-31] MEDS: APIXABAN 2.5 MG TABLET PO SCH (09:26)
[2022-10-31] MEDS: ETHACRYNIC ACID 25 MG TABLET PO SCH (09:30)
[2022-10-31 09:33] VITALS: BP 148/68
--- NOTE | 2022-10-31 15:37 | P.DS ---
Admission Date: 10/30/22 Discharge Date: 10/31/22 Primary Care Provider: Gary Disposition: ROUTINE DISCHARGE Discharge Condition: FAIR Reason for Admission: Hyperkalemia - Problems (1) Hyperkalemia Status: Acute (2) Coronary artery disease Status: Chronic Qualifiers: Coronary Disease-Associated Artery/Lesion type: [place] artery [place] vs. transplanted heart: [place] heart Associated angina: without angina Qualified Code(s): I25.10 - Atherosclerotic heart disease of [place] coronary artery without angina pectoris (3) Anemia Status: Chronic Qualifiers: Anemia type: due to chronic kidney disease Chronic kidney disease stage: stage 3 (moderate) Chronic kidney disease stage 3 subtype: stage 3b (GFR 30- 44) Qualified Code(s): N18.32 - Chronic kidney disease, stage 3b; D63.1 - Anemia in chronic kidney disease (4) Hypertension Status: Chronic Qualifiers: Hypertension type: primary hypertension Qualified Code(s): I10 - Essential (primary) hypertension (5) Hypothyroidism Status: Chronic Qualifiers: Hypothyroidism type: unspecified Qualified Code(s): E03.9 - Hypothyroidism, unspecified (6) Acute worsening of stage 3 chronic kidney disease Status: Acute Brief History of Present Illness: Patient is an 87-year-old female with past medical history of afib on eliquis, CAD, hypertension, GERD, and CKD3 who was sent to the ED by her PCP with an elevated potassium level from outpatient labs. Patient states that she had labs drawn the day prior and was informed that her potassium was 6.7 and creatinine was 2.3. Patient had no complaints. She is on 25 mg spironolactone daily. Her potassium was 6.0 in the ED. No EKG changes. Cr is 1.7. She was given calcium gluconate and kayexalate in the emergency department. Patient hospitalized for further management of hyperkalemia. Hospital Course: Patient placed under observation on medical floor IV D50 infusion, insulin. She received a dose of Kayexalate. She was prescribed IV Lasix but patient reported allergy to Lasix. She was therefore placed on ethacrynic acid. Potassium level improved, currently 5.0 and appears stable. She is on Aldactone which has been discontinued. Patient also hydrated briefly for RENETTA. Renal function improved with IV hydration. Patient is currently asymptomatic. She is deemed stable for discharge. She is prescribed maintenance ethacrynic acid per nephrology recommendation. She will follow-up with nephrology as an outpatient for further management of her hyperkalemia. Vital Signs/Physical Exam: Temp Pulse Resp BP Pulse Ox 98.7 F 76 18 148/68 H 94 10/31/22 08:00 10/31/22 09:26 10/31/22 08:00 10/31/22 09:26 10/31/22 08:00 General: Alert, In no apparent distress, Oriented x3 HEENT: Mucous membr. moist/pink Neck: JVD not distended Respiratory: Clear to auscultation bilaterally, Normal air movement Cardiovascular: No edema, Regular rate/rhythm Gastrointestinal: Soft and benign, Non-distended, No tenderness Musculoskeletal: No tenderness Integumentary: No rashes, No cyanosis Neurological: Normal strength at 5/5 x4 extr Laboratory Data at Discharge: WBC 6.20 K/uL (4.3-10.9) 10/31/22 02:37 Hgb 8.6 g/dL (12.0-15.0) L 10/31/22 02:37 Hct 26.2 % (36.0-45.0) L 10/31/22 02:37 Plt Count 254 K/uL (152-406) 10/31/22 02:37 Sodium 138 mmol/L (136-145) 10/31/22 02:37 Potassium 5.0 mmol/L (3.5-5.1) 10/31/22 09:31 BUN 32 mg/dL (7-18) H 10/31/22 02:37 Creatinine 1.27 mg/dL (0.55-1.02) H 10/31/22 02:37 Glucose 82 mg/dL (74-106) 10/31/22 02:37 Phosphorus 4.3 mg/dL (2.5-4.9) 10/30/22 03:58 Magnesium 1.8 mg/dL (1.6-2.4) 10/30/22 03:58 Triglycerides 52 mg/dL (<150) 10/30/22 03:58 Cholesterol 97 mg/dL (<200) 10/30/22 03:58 HDL Cholesterol 50 mg/dL (40-60) 10/30/22 03:58 Cholesterol/HDL Ratio 1.94 10/30/22 03:58 Home Medications: Levothyroxine [Synthroid*] 1 tab PO DAILY #30 tab 07/12/16 Mirabegron [Myrbetriq] 50 mg PO DAILY 01/05/21 Apixaban [Eliquis *] 2.5 mg PO BID #60 tablet 02/04/22 Fluoxetine HCl 1 tab PO DAILY 04/22/22 Amiodarone HCl [Cordarone*] 200 mg PO DAILY 10/30/22 Amlodipine [Norvasc*] 2.5 mg PO BID 10/30/22 D-[place] 1 gm MC DAILY 10/30/22 Ferrous Sulfate [Iron] 325 mg PO DAILY 10/30/22 Folic Acid 1 mg PO DAILY 10/30/22 Guaifenesin [Mucinex] 600 mg PO DAILY 10/30/22 Ethacrynic Acid [Edecrin*] 25 mg PO DAILY #30 tab 10/31/22 New Medications: Ethacrynic Acid [Edecrin*] 25 mg PO DAILY #30 tab Diet: AHA Activity: Ad demetrio Followup: Angelito Vega MD [Primary Care Provider] - 1 Week Time spent managing pt's care (in minutes): 34
== END 2022-10-31 10:56 | disposition home or self-care (01) | DRG 641 ==
LOC: ER 18:28 → ERHOLD 21:25 → 2ND 10-30 00:45 → OBSVTOIN 10-30 17:26
PROVIDERS: ADMIT Internal Medicine; ATTEND Internal Medicine
DX: E87.5 Hyperkalemia (principal); N17.9 Acute kidney failure, unspecified; I13.0 Hypertensive heart and chronic kidney disease with heart failure and stage 1 through stage 4 chronic kidney disease, or unspecified chronic kidney disease; I50.32 Chronic diastolic (congestive) heart failure; N18.32 Chronic kidney disease, stage 3b; D63.1 Anemia in chronic kidney disease; I48.91 Unspecified atrial fibrillation; K21.9 Gastro-esophageal reflux disease without esophagitis; E03.9 Hypothyroidism, unspecified; I27.22 Pulmonary hypertension due to left heart disease; I25.10 Atherosclerotic heart disease of native coronary artery without angina pectoris; T50.0X5A Adverse effect of mineralocorticoids and their antagonists, initial encounter; Z88.5 Allergy status to narcotic agent; Z88.0 Allergy status to penicillin; Z88.1 Allergy status to other antibiotic agents; Z88.8 Allergy status to other drugs, medicaments and biological substances; Z90.49 Acquired absence of other specified parts of digestive tract; Z79.01 Long term (current) use of anticoagulants; Z79.890 Hormone replacement therapy; Z79.899 Other long term (current) drug therapy; Z91.040 Latex allergy status; Z90.710 Acquired absence of both cervix and uterus; Z20.822 Contact with and (suspected) exposure to COVID-19
CPT/HCPCS: 36415; 71045; 80048; 80061; 81001; 83735; 84100; 84132; 84439; 84443; 84484; 85025; 87077; 87086; 87088; 87186; 87811; 93005; 94640; 96365; 99285; J0610; J1815; J3475; J7030; J7613

== ENCOUNTER 2023-01-10 06:54 | Day surgery (SDC) | payer OTHER ==
[2023-01-09 11:55] LABS: Potassium 4.5 mEq/L (3.5-5.1)
[2023-01-10] MEDS ORDERED: propofoL 200 MG/20 ML VIAL IV ONE (07:50)
[2023-01-10] MEDS ORDERED: Ringers Lactate 1,000 ML IV ONE (07:53)
[2023-01-10 09:23] VITALS: BP 158/43; TEMP 97.3; O2SAT 97
== END 2023-01-10 09:25 | disposition home or self-care (01) ==
LOC: OR 06:54
PROVIDERS: ATTEND Surgery
PROC: 0DJ08ZZ Inspection of Upper Intestinal Tract, Via Natural or Artificial Opening Endoscopic (ICD-10-PCS; principal; 2023-01-10 08:00)
DX: R13.10 Dysphagia, unspecified (principal); L91.8 Other hypertrophic disorders of the skin; K44.9 Diaphragmatic hernia without obstruction or gangrene; K31.89 Other diseases of stomach and duodenum
CPT/HCPCS: 43235; 80048; 36415; J2704; J7120

== ENCOUNTER 2023-01-17 07:54 | Day surgery (SDC) | payer OTHER ==
[2023-01-17] MEDS ORDERED: Ringers Lactate 1,000 ML IV ONE (08:22)
[2023-01-17 08:44] VITALS: O2SAT 100
[2023-01-17] MEDS ORDERED: propofoL 200 MG/20 ML VIAL IV ONE (09:50)
[2023-01-17 11:24] VITALS: TEMP 97.5
[2023-01-17 11:27] VITALS: BP 152/54
== END 2023-01-17 11:08 | disposition home or self-care (01) ==
LOC: OR 07:54
PROVIDERS: ATTEND Surgery
PROC: 0DB68ZX Excision of Stomach, Via Natural or Artificial Opening Endoscopic, Diagnostic (ICD-10-PCS; principal; 2023-01-17 10:00)
DX: R13.10 Dysphagia, unspecified (principal); K29.70 Gastritis, unspecified, without bleeding; K57.10 Diverticulosis of small intestine without perforation or abscess without bleeding; L91.8 Other hypertrophic disorders of the skin; I25.10 Atherosclerotic heart disease of native coronary artery without angina pectoris; I48.91 Unspecified atrial fibrillation; I10 Essential (primary) hypertension; I25.2 Old myocardial infarction; Z93.1 Gastrostomy status; Z88.0 Allergy status to penicillin; Z88.2 Allergy status to sulfonamides; Z88.5 Allergy status to narcotic agent; Z95.5 Presence of coronary angioplasty implant and graft; Z91.040 Latex allergy status
CPT/HCPCS: 88312; 88305; 43239; J2704; J7120

== ENCOUNTER 2023-03-01 18:27 | Inpatient (IN) | payer OTHER ==
--- OUTSIDE RECORDS SUMMARY | 2023-03-01 19:01 | XMS REPORT | Continuity of Care Document ---
:1935 Author Organization [facility] t Address [address] [place] [address] [address] [place] [address] Care Team Providers Name Role Phone Angelito Vega Buzz Primary Care Physician Gurwinder Haro Attending Clinician Unavailable RIKI REYEZ Attending Clinician Unavailable ETTA WATTS.HQuincy Attending Clinician Unavailable CUONG ARTHUR Attending Clinician Unavailable CUONG ARTHUR Attending Clinician Unavailable YUSUF VILLASEÑOR Attending Clinician Unavailable STEPHANIE DUNN Attending Clinician Unavailable Etta Watts MDHQuincy Attending Clinician JEFE MAE Attending Clinician Unavailable Jefe Mae MD Attending Clinician Doctor Unassigned, [place] Attending Clinician Unavailable Stephanie Mahmood Attending Clinician Robbi Leon MD Attending Clinician 2, [facility] Lab Attending Clinician Unavailable 1, Adc Infusion Nurse Attending Clinician Unavailable Yusuf Villaseñor MD Attending Clinician Taniya Deluca RN Attending Clinician Ger Armstrong DO Attending Clinician Ruthie Hester DO Attending Clinician CARITO GEORGE Attending Clinician Unavailable CARITO GEORGE Attending Clinician Unavailable BARBARA HERNANDEZ Attending Clinician Unavailable Barbara Tejada Attending Clinician Unknown, Attending Attending Clinician Unavailable Therapy, Adc Covid Infusion Attending Clinician Unavailable Ivan Fuentes MD Attending Clinician IVAN FUENTES Attending Clinician Unavailable REENA BEVERLY Attending Clinician Unavailable Deirdre Bowie PA-C Attending Clinician Reena Kerr Attending Clinician Iván Cowan Attending Clinician Unavailable UNKNOWN Attending Clinician Unavailable Neida Jones Attending Clinician [phone] Iván Cowan MD Attending Clinician Meaghan Antony Attending Clinician MEAGHAN VARGHESE Attending Clinician Unavailable Riki Reyez MD Attending Clinician Only, Adc Test Attending Clinician Unavailable Pob, Adc Lab Main Attending Clinician Unavailable AIYANA HOLMAN Attending Clinician Unavailable Nathanael Henson DO Attending Clinician Mandie Byrnes Attending Clinician Radiology Attending Clinician Unavailable Pilo Greene Attending Clinician Alejandro Holder Attending Clinician Cayden Fong Attending Clinician Iván Cowan Admitting Clinician Unavailable RIKI REYEZ Admitting Clinician Unavailable Ruthie Hester DO Admitting Clinician RUTHIE HESTER Admitting Clinician Unavailable YUSUF VILLASEÑOR Admitting Clinician Unavailable Riki Reyez MD Admitting Clinician Pilo Greene Admitting Clinician Deirdre Sanon Jr Admitting Clinician Payers Payer Name Policy Type Policy Number Effective Date Expiration Date S andrew MEDICARE PART A \\T\\ [id number] 1999 B 00:00:00 [employer] [id number] 2016 00:00:00 [place] [id number] 2020 BENEFITS 00:00:00 Problems Condition Condition Condition Status Onset Resolution Last Treating Co mments Source Name Details Category Date Date Treatment Clinician Date Pulmonary Pulmonary Disease Active Uni vers hypertensi hypertensi 3-19 it y of on on 00:00: [place] 00 Medical Branch PAF PAF Disease Active Univers (paroxysma (paroxysma 3-17 it y of l atrial l atrial 00:00: [place] fibrillati fibrillati 00 Me dical on) on) Branch Acute on Acute on Disease Active Unive rs chronic chronic 3-17 [place]y of diastolic diastolic 00:00[place] congestive congestive 00 Me dical heart heart Branch failure failure Anemia Anemia Disease Active Univers 3-17 ity of 00:00: [place] 00 Medical Branch Coronary Coronary Disease Active Unive rs artery artery 3-17 ity of disease disease 00:00: [place] involving involving 00 Medi andrez [place] Branch coronary coronary artery of artery of [place] heart heart without without angina angina pectoris pectoris Troponin I Troponin I Disease Active U nivers above above 3-17 [place] range range 00 [place] Primary Primary Disease Active Univers hypertensi hypertensi 3-17 it y of on on 00:00: [place] 00 Medical Branch Stage 3a Stage 3a Disease Active Unive rs chronic chronic 3-17 ity of kidney kidney 00:00: [place] disease disease 00 Medical Branch Coronary Coronary Disease Active Unive rs artery artery 3-17 ity of disease disease 00:00: [place] involving involving 00 Medi andrez [place] Branch coronary coronary artery of artery of [place] heart heart without without angina angina pectoris pectoris Acute Acute Disease Active Univers hypoxemic hypoxemic 3-16 [place] respir[place] andrez Branch CCL / CCL / Diagnosis Active 2018-082019-06-02 [facility] RENAL RENAL 0- 05:41:00 l STENT STENT 00:00: Kevin Active 00 05/25/2019 [facility] NEW PT NEW PT Diagnosis Active 2019-05-05 [facility] CONSULT - CONSULT - 04-23 14:43:00 l 2ND 2ND 00:00: Kevin OPINION OPINION 00 Active 04/23/2019 [facility] ATHEROSCLE ATHEROSCL Diagnosis Active 2016-11-19 Memoria ROSIS OF EROSIS OF - 13:05:00 l ORUTSARARMIUT ORUTSARARMIUT 00:00: [place] ARTERIES ARTERIES 00 OF EX OF EX Active 10/17/2016 [facility] CCL/LEFT CCL/LEFT Diagnosis Active 2016-10-21 Memoria LEG LEG - 15:24:00 l CERTIFIED ORTHOPTIST/DX: CERTIFIED ORTHOPTIST/DX: 00:00: Kevin I70.221 I70.221 00 Active 10/17/2016 [facility] DIZZINESS DIZZINESS Diagnosis Active 2016-05-01 Memoria Active 04-21 22:08:00 l 04/21/2016 00:00: [place] martínez [address] 593.2 - 593.2 - Diagnosis Active 2016-03-31 Memoria "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," KIDNEY," 00:01: [place] martínez Active 00 03/03/2015 MARIE [place] Gastroesop Problem Resolve 2020-09-01 Memoria hageal Gastroesop d 22:24:26 l reflux hageal Kevin disease reflux (disorder) disease (disorder) Resolved Problem 09/01/2020 [facility] Group,[facility], MARIE Carlson History of History Problem Resolve 2020-09-01 Memoria - surgery of - d 22:24:26 l (context-d surgery Mela nn ependent (context-d category) ependent category) Resolved Problem 09/01/2020 Medical Group,[facility], MARIE Carlson History of History Problem Resolve 2020-09-01 Memoria - vertigo of - d 22:24:26 l (context-d vertigo Mela nn ependent (context-d category) ependent category) Resolved Problem 09/01/2020 Medical Group,[facility], MARIE Carlson Hypertensi Hypertens Problem Resolve 2020-09-01 Memoria ve nathan d 22:24:26 l disorder, disorder, Herm angela systemic systemic arterial arterial (disorder) (disorder) Resolved Problem 09/01/2020 [facility] Group,[facility], MARIE Carlson ENCNTR FOR ENCNTR Diagnosis Active 2019-05-05 Memoria GENERAL FOR 14:43:00 l ADULT GENERAL Kevin MEDICAL ADULT EXAM W/ MEDICAL EXAM W/ Active [facility] ILLNESS, ILLNESS, Diagnosis Active 2016-05-01 Memoria UNSPECIFIE UNSPECIFIE 22:08:00 l D D [facility] [place] [place] No known No known Disease Unive rs active active ity of problems problems [facility] Myocardial Myocardia Problem Resolve 2020-09-01 2020-09-01 Memoria infarction l d 08-25 22:24:26 22:24:26 l (disorder) infarction 00:00: He rmann (disorder) 00 Resolved 08/25/2002 Problem 09/01/2020 Medical Group,[facility], MARIE Carlson Allergies, Adverse Reactions, Alerts Allergy Allergy Status Severity Reaction(s) Onset Inactive Treating Comm ents Source Name Type Date Date Clinician Penicill DA Active U [facility]ES [facility] ins 09-14 [place] [facility] 00 are [facility] Sulfa DA Active U RASH [facility] (Sulfona 09-14 [place] mide 00:00: [facility] Antibiot 00 are ics) [facility] codeine DA Active U NAUSEA [facility] 09-14 [place] 00:[facility]: [facility] 00 are [facility] CODEINE DRUG Active Unknown-Cmnt Uni vers INGREDI 2- ity of 00:00: [place] [facility] Codeine [...] Medical Branch PENICILL Drug Active Unknown-Cmnt Un amlaia INS Class 05-22 ity of 00:00: [place] [...] ins<sup> ins<sup> 3-26 l 1</sup> 1</sup> 05:00: [place] 00 sulfa sulfa Active Memoria drugs<ward drugs<ward 3-26 l p>2</sup p>2</sup 05:00: [place] n > > 00 nitrofur nitrofur Active Memori a antoin<s antoin<s 3-26 l up>3</ward up>3</ward 05:00: [place] n p> p> 00 sulfa sulfa Active Memoria drugs<ward drugs<ward 3-26 l p>3</sup p>3</sup 05:00: [place] n > > 00 penicill penicill Active Memori a ins<sup> ins<sup> 3-26 l 2</sup> 2</sup> 05:00: Kevin 00 codeine codeine Active Memoria l [place] niacin niacin Active Memoria l [place] Plavix Plavix Active Memoria l [place] Celebrex Celebrex Active Memori a l [place] Keflex Keflex Active Memoria l [place] penicill penicill Active Memori a ins ins l Kevin sulfa sulfa Active Memoria drugs drugs l Kevin Social History Social Habit Start Date Stop Date Quantity Comments Source Gender [facility] History of tobacco Passive smoker Un iversity of use [facility] Exposure to 2023-01-11 2023-01-21 Not sure University of SARS-CoV-2 (event) 00:00:00 09:46:00 [facility] Tobacco use and 2022-11-07 2022-11-07 Former smokeless Uni versity of exposure 00:00:00 00:00:00 tobacco user [facility] Tobacco Comment 2022-03-13 2022-03-13 quit 30 yrs ago Univ ersity of 00:00:00 00:00:00 [facility] Sex Ass[birth year] At [birth year] [facility] 00:00:[facility]00 Hospital Smoking Status Start Date Stop Date Source Tobacco smoking consumption [facility] unknown Social History 2020-08-23 14:59:17 2020-08-23 14:59:17 [facility] Medications Ordered Filled Start Stop Current Ordering Indication Dosage Frequency Signature Comments Components Source Medication Medication Date Date Medication? Clinician (SIG) Name Name acetaminoph 2022- No 1000mg 1,000 mg, Univers en 02-22 Oral, ity of (TYLENOL) 01:00: 01:31 [place] tablet [place] :00 dose, On Medical 1,000 mg Fri Branch 02/21/23 at 2000, BRIANA aspirin 81 2022-2022- No 81mg Take 1 Univ ers mg EC 5-30 05-30 tablet by ity of tablet 10:32: 00:00 mouth in [place] 26 :00 the Medical morning. Branch aspirin 81 2022-0 2022- No 81mg Take 1 Univ ers mg EC 5-30 05-30 tablet by ity of tablet 10:32: 00:00 mouth in [place] 26 :00 the Medical morning. Branch amLODIPine 2022-0 Yes 2.5mg Take 1 Univ ers 2.5 mg 5-30 tablet by ity of tablet 10:31: mouth in [place] [address] the Medical morning Branch and 1 tablet in the evening. amLODIPine 2022-0 Yes 2.5mg Take 1 Univ ers 2.5 mg 5-30 tablet by ity of tablet 10:31: mouth in [place] [address] the Medical morning Branch and 1 tablet in the evening. amLODIPine 2022-0 Yes 2.5mg Take 1 Univ ers 2.5 mg 5-30 tablet by ity of tablet 10:31: mouth in [place] [address] the Medical morning Branch and 1 tablet in the evening. amLODIPine 2023-0 Yes 2.5mg Take 1 Univ ers 2.5 mg 5-30 tablet by ity of tablet 10:31: mouth in [place] [address] the Medical morning Branch and 1 tablet in the evening. amLODIPine 2023-0 Yes 2.5mg Take 1 Univ ers 2.5 mg 5-30 tablet by ity of tablet 10:31: mouth in [place] [address] the Medical morning Branch and 1 tablet in the evening. amLODIPine 2023-0 Yes 2.5mg Take 1 Univ ers 2.5 mg 5-30 tablet by ity of tablet 10:31: mouth in [place] [address] the [facility] morning Branch and 1 tablet in the evening. amLODIPine 2023-0 Yes 2.5mg Take 1 Univ ers 2.5 mg 5-30 tablet by ity of tablet 10:31: mouth in [place] [address] the Medical morning Branch and 1 tablet in the evening. amLODIPine 2023-0 Yes 2.5mg Take 1 Univ ers 2.5 mg 5-30 tablet by ity of tablet 10:31: mouth in [place] [address] the Medical morning [place] and 1 tablet in the evening. amLODIPine 2023-0 Yes 2.5mg Take 1 Univ ers 2.5 mg 5-30 tablet by ity of tablet 10:31: mouth in [place] [address] the [facility] and 1 tablet in the evening. metoprolol 2023-0 Yes [id number] 25mg Take 1 Univers succinate 5-16 tablet by ity o f XL 25 mg 24 00:00: [place] 00 the Medical morning. Branch furosemide 2023-0 Yes [id number] 40mg Take 1 Univers 40 mg 5-16 tablet by ity of tablet 00:00: mouth in [place] 00 the Medical morning. Branch metoprolol 2023-0 Yes [id number] 25mg Take 1 Univers succinate 5-16 tablet by ity o f XL 25 mg 24 00:00: [place] 00 the Medical morning. Branch furosemide 2023-0 Yes [id number] 40mg Take 1 Univers 40 mg 5-16 tablet by ity of tablet 00:00: mouth in [place] 00 the Medical morning. Branch metoprolol 2023-0 Yes [id number] 25mg Take 1 Univers succinate 5-16 tablet by ity o f XL 25 mg 24 00:00: [place] 00 the Medical morning. Branch furosemide 3-0 Yes [id number] 40mg Take 1 Univers 40 mg 5-16 tablet by ity of tablet 00:00: mouth in [place] 00 the Medical morning. Branch metoprolol 3-0 Yes [id number] 25mg Take 1 Univers succinate 5-16 tablet by ity o f XL 25 mg 24 00:00: [place] 00 the Medical morning. Branch furosemide 3-0 Yes [id number] 40mg Take 1 Univers 40 mg 5-16 tablet by ity of tablet 00:00: mouth in [place] 00 the Medical morning. Branch metoprolol 3-0 Yes [id number] 25mg Take 1 Univers succinate 5-16 tablet by ity o f XL 25 mg 24 00:00: [place] 00 the Medical morning. Branch furosemide 3-0 Yes [id number] 40mg Take 1 Univers 40 mg 5-16 tablet by ity of tablet 00:00: mouth in [place] 00 the Medical morning. Branch metoprolol 3-0 Yes [id number] 25mg Take 1 Univers succinate 5-16 tablet by ity o f XL 25 mg 24 00:00: [place] 00 the Medical morning. Branch furosemide 3-0 Yes [id number] 40mg Take 1 Univers 40 mg 5-16 tablet by ity of tablet 00:00: mouth in [place] 00 the Medical morning. Branch metoprolol 3-0 Yes [id number] 25mg Take 1 Univers succinate 5-16 tablet by ity o f XL 25 mg 24 00:00: [place] 00 the Medical morning. Branch furosemide 3-0 Yes [id number] 40mg Take 1 Univers 40 mg 5-16 tablet by ity of tablet 00:00: mouth in [place] 00 the Medical morning. Branch metoprolol 3-0 Yes [id number] 25mg Take 1 Univers succinate 5-16 tablet by ity o f XL 25 mg 24 00:00: [place] 00 the Medical morning. Branch furosemide 3-0 Yes [id number] 40mg Take 1 Univers 40 mg 5-16 tablet by ity of tablet 00:00: mouth in [place] 00 the Medical morning. Branch fosfomycin 2022-0 2022- Yes [id number] 3g Take 3 g Univers 3 gram 5-04 05-05 by mouth ity of packet 00:00: 04:59 once now [place] 00 :00 for 1 Medical dose. Branch fosfomycin 2022-0 2022- Yes [id number] 3g Take 3 g Univers 3 gram 5-04 05-05 by mouth ity of packet 00:00: 04:59 once now [place] 00 :00 for 1 Medical dose. Branch metoprolol 2022-0 Yes [id number] 25mg Take 1 Univers succinate 4-10 tablet by ity o f XL 25 mg 24 00:00: [place] tablet 00 the Medical morning. Branch furosemide 2022-0 Yes [id number] 40mg Take 1 Univers 40 mg 4-10 tablet by ity of tablet 00:00: mouth in [place] 00 the Medical morning. Branch metoprolol 2022-0 Yes [id number] 25mg Take 1 Univers succinate 4-10 tablet by ity o f XL 25 mg 24 00:00: [place] tablet 00 the Medical morning. Branch furosemide 2022-0 Yes [id number] 40mg Take 1 Univers 40 mg 4-10 tablet by ity of tablet 00:00: mouth in [place] 00 the Medical morning. Branch metoprolol 2022-0 Yes [id number] 25mg Take 1 Univers succinate 4-10 tablet by ity o f XL 25 mg 24 00:00: [place] tablet 00 the Medical morning. Branch furosemide 2022-0 Yes [id number] 40mg Take 1 Univers 40 mg 4-10 tablet by ity of tablet 00:00: mouth in [place] 00 the Medical morning. Branch metoprolol 2022-0 2022- No [id number] 25mg Take 1 Univers succinate 4-10 05-16 tablet by ity of XL 25 mg 24 00:00: 00:00 [place] hr tablet 00 :00 the Medical morning. Branch furosemide 2022-0 2022- No [id number] 40mg Take 1 Univers 40 mg 4-10 05-16 tablet by ity of tablet 00:00: 00:00 mouth in [place] 00 :00 the Medical morning. Branch amLODIPine 2022-0 Yes 2.5mg Take 1 Univ ers 2.5 mg 4-07 tablet by ity of tablet 10:39: mouth in [place] [address] the Medical morning Branch and 1 tablet in the evening. amLODIPine 2023-0 Yes 2.5mg Take 1 Univ ers 2.5 mg 4-07 tablet by ity of tablet 10:39: mouth in [place] [address] the Medical morning Branch and 1 tablet in the evening. amLODIPine 2023-0 Yes 2.5mg Take 1 Univ ers 2.5 mg 4-07 tablet by ity of tablet 10:39: mouth in [place] [address] the Medical morning Branch and 1 tablet in the evening. amLODIPine 2023-0 Yes 2.5mg Take 1 Univ ers 2.5 mg 4-07 tablet by ity of tablet 10:39: mouth in [place] [address] the Medical morning Branch and 1 tablet in the evening. amLODIPine 2023-0 Yes 2.5mg Take 1 Univ ers 2.5 mg 4-07 tablet by ity of tablet 10:39: mouth in [place] [address] the Medical morning Branch and 1 tablet in the evening. amLODIPine 2023-0 Yes 2.5mg Take 1 Univ ers 2.5 mg 4-07 tablet by ity of tablet 10:39: mouth in [place] [address] the [facility] morning [place] and 1 tablet in the evening. amLODIPine 2023-0 Yes 2.5mg Take 1 Univ ers 2.5 mg 4-07 tablet by ity of tablet 10:39: mouth in [place] [address] the [facility] and 1 tablet in the evening. spironolact 2023-0 3- No Take by Un amalia one 25 mg/5 4-07 04-07 mouth ity of mL oral 10:38: 00:00 daily. [place] suspension 39 :00 [facility] Branch spironolact 2023-0 3- No Take by Un amalia one 25 mg/5 4-07 04-07 mouth ity of mL oral 10:38: 00:00 daily. [place] suspension 39 :00 Medical Branch aspirin 81 2023-0 Yes 81mg Take 1 Unive rs mg EC 4-07 tablet by ity of tablet 10:38: mouth in [place] [address] the Medical morning. Branch aspirin 81 2023-0 Yes 81mg Take 1 Unive rs mg EC 4-07 tablet by ity of tablet 10:38: mouth in [place] [address] the Medical morning. Branch aspirin 81 2023-0 Yes 81mg Take 1 Unive rs mg EC 4-07 tablet by ity of tablet 10:38: mouth in [place] [address] the Medical morning. Branch aspirin 81 2023-0 Yes 81mg Take 1 Unive rs mg EC 4-07 tablet by ity of tablet 10:38: mouth in [place] [address] the Medical morning. Branch aspirin 81 2023-0 Yes 81mg Take 1 Unive rs mg EC 4-07 tablet by ity of tablet 10:38: mouth in [place] [address] the Medical morning. Branch aspirin 81 2023-0 Yes 81mg Take 1 Unive rs mg EC 4-07 tablet by ity of tablet 10:38: mouth in [place] [address] the Medical morning. Branch aspirin 81 2023-0 Yes 81mg Take 1 Unive rs mg EC 4-07 tablet by ity of tablet 10:38: mouth in [place] [address] the Medical morning. Branch Magnesium 2023-0 Yes [id number] 500mg Take 500 Univers 250 mg Tab 4-07 mg by ity of 10:15: mouth. [address] Magnesium 2023-0 Yes [id number] 500mg Take 500 Univers 250 mg Tab 4-07 mg by ity of 10:15: mouth. [address] Magnesium 2023-0 Yes [id number] 500mg Take 500 Univers 250 mg Tab 4-07 mg by ity of 10:15: mouth. [address] Magnesium 2023-0 Yes [id number] 500mg Take 500 Univers 250 mg Tab 4-07 mg by ity of 10:15: mouth. [address] Magnesium 2023-0 Yes [id number] 500mg Take 500 Univers 250 mg Tab 4-07 mg by ity of 10:15: mouth. [address] Magnesium 2023-0 Yes [id number] 500mg Take 500 Univers 250 mg Tab 4-07 mg by ity of 10:15: mouth. [address] Magnesium 2023-0 Yes [id number] 500mg Take 500 Univers 250 mg Tab 4-07 mg by ity of 10:15: mouth. [address] Magnesium 2023-0 Yes [id number] 500mg Take 500 Univers 250 mg Tab 4-07 mg by ity of 10:15: mouth. [address] Magnesium 2023-0 Yes [id number] 500mg Take 500 Univers 250 mg Tab 4-07 mg by ity of 10:15: mouth. [address] Magnesium 2023-0 Yes [id number] 500mg Take 500 Univers 250 mg Tab 4-07 mg by ity of 10:15: mouth. [address] Magnesium 3-0 Yes [id number] 500mg Take 500 Univers 250 mg Tab 4-07 mg by ity of 10:15: mouth. [address] Magnesium 3-0 Yes [id number] 500mg Take 500 Univers 250 mg Tab 4-07 mg by ity of 10:15: mouth. [address] Magnesium 2022-0 Yes [id number] 500mg Take 500 Univers 250 mg Tab 4-07 mg by ity of 10:15: mouth. [address] Magnesium 2022-0 Yes [id number] 500mg Take 500 Univers 250 mg Tab 4-07 mg by ity of 10:15: mouth. [address] Magnesium 2022-0 Yes [id number] 500mg Take 500 Univers 250 mg Tab 4-07 mg by ity of 10:15: mouth. [address] Magnesium 2022-0 Yes [id number] 500mg Take 500 Univers 250 mg Tab 4-07 mg by ity of 10:15: mouth. [address] iron,carb/f Yes 1{tbl} Take 1 Un amalia olic ac/vit 4-07 tablet by ity of Bcomp,C 10:15: mouth 2 [place] (IRON-FOLIC 21 (two) Medical 500 ORAL) times Branch daily. iron,carb/f 0 Yes 1{tbl} Take 1 Un amalia olic ac/vit 4-07 tablet by ity of Bcomp,C 10:15: mouth 2 [place] (IRON-FOLIC 21 (two) Medical 500 ORAL) times Branch daily. iron,carb/f 0 Yes 1{tbl} Take 1 Un amalia olic ac/vit 4-07 tablet by ity of Bcomp,C 10:15: mouth 2 [place] (IRON-FOLIC 21 (two) Medical 500 ORAL) times Branch daily. iron,carb/f 2022-0 Yes 1{tbl} Take 1 Un amalia olic ac/vit 4-07 tablet by ity of Bcomp,C 10:15: mouth 2 [place] (IRON-FOLIC 21 (two) Medical 500 ORAL) times Branch daily. iron,carb/f 2022-0 Yes 1{tbl} Take 1 Un amalia olic ac/vit 4-07 tablet by ity of Bcomp,C 10:15: mouth 2 [place] (IRON-FOLIC 21 (two) Medical 500 ORAL) times Branch daily. iron,carb/f 0 Yes 1{tbl} Take 1 Un amalia olic ac/vit 4-07 tablet by ity of Bcomp,C 10:15: mouth 2 [place] (IRON-FOLIC 21 (two) Medical 500 ORAL) times Branch daily. iron,carb/f 0 Yes 1{tbl} Take 1 Un amalia olic ac/vit 4-07 tablet by ity of Bcomp,C 10:15: mouth 2 [place] (IRON-FOLIC 21 (two) Medical 500 ORAL) times Branch daily. iron,carb/f 0 Yes 1{tbl} Take 1 Un amalia olic ac/vit 4-07 tablet by ity of Bcomp,C 10:15: mouth 2 [place] (IRON-FOLIC 21 (two) Medical 500 ORAL) times Branch daily. iron,carb/f 0 Yes 1{tbl} Take 1 Un amalia olic ac/vit 4-07 tablet by ity of Bcomp,C 10:15: mouth 2 [place] (IRON-FOLIC 21 (two) Medical 500 ORAL) times Branch daily. iron,carb/f 0 Yes 1{tbl} Take 1 Un amlaia olic ac/vit 4-07 tablet by ity of Bcomp,C 10:15: mouth 2 [place] (IRON-FOLIC 21 (two) Medical 500 ORAL) times Branch daily. iron,carb/f 0 Yes 1{tbl} Take 1 Un amalia olic ac/vit 4-07 tablet by ity of Bcomp,C 10:15: mouth 2 [place] (IRON-FOLIC 21 (two) Medical 500 ORAL) times Branch daily. iron,carb/f 2022-0 Yes 1{tbl} Take 1 Un amalia olic ac/vit 4-07 tablet by ity of Bcomp,C 10:15: mouth 2 [place] (IRON-FOLIC 21 (two) Medical 500 ORAL) times Branch daily. iron,carb/f 0 Yes 1{tbl} Take 1 Un amalia olic ac/vit 4-07 tablet by ity of Bcomp,C 10:15: mouth 2 [place] (IRON-FOLIC 21 (two) Medical 500 ORAL) times Branch daily. iron,carb/f Yes 1{tbl} Take 1 Un amalia olic ac/vit 4-07 tablet by ity of Bcomp,C 10:15: mouth 2 [place] (IRON-FOLIC 21 (two) Medical 500 ORAL) times Branch daily. iron,carb/f Yes 1{tbl} Take 1 Un amalia olic ac/vit 4-07 tablet by ity of Bcomp,C 10:15: mouth 2 [place] (IRON-FOLIC 21 (two) Medical 500 ORAL) times Branch daily. iron,carb/f Yes 1{tbl} Take 1 Un amalia olic ac/vit 4-07 tablet by ity of Bcomp,C 10:15: mouth 2 [place] (IRON-FOLIC 21 (two) Medical 500 ORAL) times Branch daily. denosumab 2022- No [id number] 60mg 60 mg, U nivers (PROLIA) 11-21 Subcutaneo ity of injection 14:45: 14:39 [place] 60 mg 00 :00 1 dose, On [facility] Branch 11/21/22 at 0945, Routine
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 metoprolol 2022- No [id number] 25mg Take 1 Univers succinate 3-21 - tablet by ity of XL 25 mg 24 00:00: 04:59 [place] hr tablet 00 :00 the [facility] morning Branch for 30 days. metoprolol 2022- No [id number] 25mg Take 1 Univers succinate 3-21 -21 tablet by ity of XL 25 mg 24 00:00: 04:59 mouth [place] hr tablet 00 :00 the [facility] Branch for 30 days. metoprolol 2022- No [id number] 25mg Take 1 Univers succinate 3-21 -21 tablet by ity of XL 25 mg 24 00:00: 04:59 mouth in [place] hr tablet 00 :00 the [facility] morning Branch for 30 days. metoprolol 2022- No [id number] 25mg Take 1 Univers succinate 3-21 -21 tablet by ity of XL 25 mg 24 00:00: 04:59 [place] in [place] hr tablet 00 :00 the [facility] for 30 days. metoprolol 2022- No [id number] 25mg Take 1 Univers succinate 3-21 -21 tablet by ity of XL 25 mg 24 00:00: 04:59 [place] hr tablet 00 :00 the [facility] for 30 days. metoprolol 2022- No [id number] 25mg Take 1 Univers succinate 3-21 -21 tablet by ity of XL 25 mg 24 00:00: 04:59 [place] hr tablet 00 :00 the [facility] for 30 days. metoprolol 2022- No [id number] 25mg Take 1 Univers succinate 3-21 -10 tablet by ity of XL 25 mg 24 00:00: 00:00 mouth in [place] hr tablet 00 :00 the [facility] for 30 days. Magnesium 2022- Yes [id number] 500mg Take 500 Univers 250 mg Tab 3-20 mg by ity of 13:23: mouth. [address] aspirin 81 2022-0 Yes 81mg Take 81 mg U nivers mg EC 3-20 by mouth ity of tablet 13:23: daily. [address] mirabegron 2022-0 Yes Take by Univ ers (MYRBETRIQ) 3-20 mouth ity of 50 mg 13:23: daily. [place] tablet 59 Medical Branch iron,carb/f Yes 1{tbl} Take 1 [place] olic ac/vit 3-20 tablet by ity of Bcomp,C 13:23: mouth 2 [place] (IRON-FOLIC 59 (two) Medical 500 ORAL) times Branch daily. spironolact 0 Yes Take by Uni vers one 25 mg/5 3-20 mouth ity of mL oral 13:23: daily. [place] suspension 59 Medical Branch levothyroxi 0 Yes 75mg Take 75 mg Univers ne sodium 3-20 by mouth. ity o f (LEVOTHROID 13:23: [place] ORAL) 59 Medical Branch Magnesium Yes [id number] 500mg Take 500 Univers 250 mg Tab 3-20 mg by ity of 13:23: mouth. [place] [address] Medical Branch aspirin 81 0 Yes 81mg Take 81 mg U nivers mg EC 3-20 by mouth ity of tablet 13:23: daily. [place] [address] Medical Branch mirabegron Yes Take by [facility] ers (MYRBETRIQ) 3-20 mouth ity of 50 mg 13:23: daily. [place] tablet 59 Medical Branch iron,carb/f Yes 1{tbl} Take 1 [place] olic ac/vit 3-20 tablet by ity of Bcomp,C 13:23: mouth 2 [place] (IRON-FOLIC 59 (two) Medical 500 ORAL) times Branch daily. spironolact Yes Take by Uni vers one 25 mg/5 3-20 mouth ity of mL oral 13:23: daily. [place] suspension 59 Medical Branch levothyroxi Yes 75mg Take 75 mg Univers ne sodium 3-20 by mouth. ity o f (LEVOTHROID 13:23: [place] ORAL) 59 Medical Branch Magnesium 0 Yes [id number] 500mg Take 500 Univers 250 mg Tab 3-20 mg by ity of 13:23: mouth. [place] [address] Medical Branch aspirin 81 0 Yes 81mg Take 81 mg U nivers mg EC 3-20 by mouth ity of tablet 13:23: daily. [place] [address] Medical Branch mirabegron 0 Yes Take by [facility] ers (MYRBETRIQ) 3-20 mouth ity of 50 mg 13:23: daily. [place] tablet 59 Medical Branch iron,carb/f Yes 1{tbl} Take 1 [facility] [place] olic ac/vit 3-20 tablet by ity of Bcomp,C 13:23: mouth 2 [place] (IRON-FOLIC 59 (two) Medical 500 ORAL) times Branch daily. spironolact 0 Yes Take by Uni vers one 25 mg/5 3-20 mouth ity of mL oral 13:23: daily. [place] suspension 59 Medical Branch levothyroxi 0 Yes 75mg Take 75 mg Univers ne sodium 3-20 by mouth. ity o f (LEVOTHROID 13:23: [place] ORAL) 59 Medical Branch Magnesium Yes [id number] 500mg Take 500 Univers 250 mg Tab 3-20 mg by ity of 13:23: mouth. [place] [address] Medical Branch aspirin 81 0 Yes 81mg Take 81 mg U nivers mg EC 3-20 by mouth ity of tablet 13:23: daily. [place] [address] Medical Branch mirabegron Yes Take by [facility] ers (MYRBETRIQ) 3-20 mouth ity of 50 mg 13:23: daily. [place] tablet 59 Medical Branch iron,carb/f Yes 1{tbl} Take 1 [place] olic ac/vit 3-20 tablet by ity of Bcomp,C 13:23: mouth 2 [place] (IRON-FOLIC 59 (two) Medical 500 ORAL) times Branch daily. spironolact Yes Take by Uni vers one 25 mg/5 3-20 mouth ity of mL oral 13:23: daily. [place] suspension 59 Medical Branch levothyroxi Yes 75mg Take 75 mg Univers ne sodium 3-20 by mouth. ity o f (LEVOTHROID 13:23: [place] ORAL) 59 Medical Branch Magnesium 0 Yes [id number] 500mg Take 500 Univers 250 mg Tab 3-20 mg by ity of 13:23: mouth. [place] [address] Medical Branch aspirin 81 0 Yes 81mg Take 81 mg U nivers mg EC 3-20 by mouth ity of tablet 13:23: daily. [place] [address] Medical Branch mirabegron 0 Yes Take by [facility] ers (MYRBETRIQ) 3-20 mouth ity of 50 mg 13:23: daily. [place] tablet 59 Medical Branch iron,carb/f Yes 1{tbl} Take 1 [place] olic ac/vit 3-20 tablet by ity of Bcomp,C 13:23: mouth 2 [place] (IRON-FOLIC 59 (two) Medical 500 ORAL) times Branch daily. spironolact Yes Take by Uni vers one 25 mg/5 3-20 mouth ity of mL oral 13:23: daily. [place] suspension 59 Medical Branch levothyroxi Yes 75mg Take 75 mg Univers ne sodium 3-20 by mouth. ity o f (LEVOTHROID 13:23: [place] ORAL) 59 Medical Branch mirabegron Yes Take by [facility] ers (MYRBETRIQ) 3-20 mouth ity of 50 mg 13:23: daily. [place] tablet 59 Medical Branch levothyroxi Yes 75mg Take 75 mg Univers ne sodium 3-20 by mouth. ity o f (LEVOTHROID 13:23: [place] ORAL) 59 Medical Branch mirabegron Yes Take by [facility] ers (MYRBETRIQ) 3-20 mouth ity of 50 mg 13:23: daily. [place] tablet 59 Medical Branch levothyroxi Yes 75mg Take 75 mg Univers ne sodium 3-20 by mouth. ity o f (LEVOTHROID 13:23: [place] ORAL) 59 Medical Branch mirabegron Yes Take by [facility] ers (MYRBETRIQ) 3-20 mouth ity of 50 mg 13:23: daily. [place] tablet 59 Medical Branch levothyroxi Yes 75mg Take 75 mg Univers ne sodium 3-20 by mouth. ity o f (LEVOTHROID 13:23: [place] ORAL) 59 Medical Branch mirabegron Yes Take by [facility] ers (MYRBETRIQ) 3-20 mouth ity of 50 mg 13:23: daily. [place] tablet 59 Medical Branch levothyroxi Yes 75mg Take 75 mg Univers ne sodium 3-20 by mouth. ity o f (LEVOTHROID 13:23: [place] ORAL) 59 Medical Branch mirabegron Yes Take by [facility] ers (MYRBETRIQ) 3-20 mouth ity of 50 mg 13:23: daily. [place] tablet 59 Medical Branch levothyroxi Yes 75mg Take 75 mg Univers ne sodium 3-20 by mouth. ity o f (LEVOTHROID 13:23: [place] ORAL) 59 Medical Branch mirabegron Yes Take by [facility] ers (MYRBETRIQ) 3-20 mouth ity of 50 mg 13:23: daily. [place] tablet 59 Medical Branch levothyroxi Yes 75mg Take 75 mg Univers ne sodium 3-20 by mouth. ity o f (LEVOTHROID 13:23: [place] ORAL) 59 Medical Branch mirabegron Yes Take by [facility] ers (MYRBETRIQ) 3-20 mouth ity of 50 mg 13:23: daily. [place] tablet 59 Medical Branch levothyroxi Yes 75mg Take 75 mg Univers ne sodium 3-20 by mouth. ity o f (LEVOTHROID 13:23: [place] ORAL) 59 Medical Branch mirabegron Yes Take by [facility] ers (MYRBETRIQ) 3-20 mouth ity of 50 mg 13:23: daily. [place] tablet 59 Medical Branch levothyroxi Yes 75mg Take 75 mg Univers ne sodium 3-20 by mouth. ity o f (LEVOTHROID 13:23: [place] ORAL) 59 Medical Branch mirabegron Yes Take by [facility] ers (MYRBETRIQ) 3-20 mouth ity of 50 mg 13:23: daily. [place] tablet 59 Medical Branch levothyroxi Yes 75mg Take 75 mg Univers ne sodium 3-20 by mouth. ity o f (LEVOTHROID 13:23: [place] ORAL) 59 Medical Branch mirabegron Yes Take by [facility] ers (MYRBETRIQ) 3-20 mouth ity of 50 mg 13:23: daily. [place] tablet 59 Medical Branch levothyroxi 0 Yes 75mg Take 75 mg Univers ne sodium 3-20 by mouth. ity o f (LEVOTHROID 13:23: [place] ORAL) 59 Medical Branch mirabegron Yes Take by [facility] ers (MYRBETRIQ) 3-20 mouth ity of 50 mg 13:23: daily. [place] tablet 59 Medical Branch levothyroxi 0 Yes 75mg Take 75 mg Univers ne sodium 3-20 by mouth. ity o f (LEVOTHROID 13:23: [place] ORAL) 59 Medical Branch mirabegron Yes Take by [facility] ers (MYRBETRIQ) 3-20 mouth ity of 50 mg 13:23: daily. [place] tablet 59 Medical Branch levothyroxi Yes 75mg Take 75 mg Univers ne sodium 3-20 by mouth. ity o f (LEVOTHROID 13:23: [place] ORAL) 59 Medical Branch mirabegron Yes Take by [facility] ers (MYRBETRIQ) 3-20 mouth ity of 50 mg 13:23: daily. [place] tablet 59 Medical Branch levothyroxi Yes 75mg Take 75 mg Univers ne sodium 3-20 by mouth. ity o f (LEVOTHROID 13:23: [place] ORAL) 59 Medical Branch mirabegron Yes Take by [facility] ers (MYRBETRIQ) 3-20 mouth ity of 50 mg 13:23: daily. [place] tablet 59 Medical Branch levothyroxi Yes 75mg Take 75 mg Univers ne sodium 3-20 by mouth. ity o f (LEVOTHROID 13:23: [place] ORAL) 59 Medical Branch mirabegron Yes Take by [facility] ers (MYRBETRIQ) 3-20 mouth ity of 50 mg 13:23: daily. [place] tablet 59 Medical Branch levothyroxi Yes 75mg Take 75 mg Univers ne sodium 3-20 by mouth. ity o f (LEVOTHROID 13:23: [place] ORAL) 59 Medical Branch mirabegron Yes Take by [facility] (MYRBETRIQ) 3-20 mouth ity of 50 mg 13:23: daily. [place] tablet 59 Medical Branch levothyroxi Yes 75mg Take 75 mg Univers ne sodium 3-20 by mouth. ity o f (LEVOTHROID 13:23: [place] ORAL) 59 Medical Branch folic acid 2022- No [id number] Take by [facility] (FA-8) 0.8 20 -20 mouth. ity of mg Cap 12:29: 00:00 [place] 50 :00 Medical Branch CALCIUM 2022- No [facility] 3-20 03-20 mouth. ity of ORAL 12:29: 00:00 [place] 50 :00 Medical Branch NIFEdipine 2022- No Nifedical U nivers XL 30 mg 24 3-20 03-20 XL 30 mg ity of hr tablet 12:29: 00:00 tablet,ext [place] 50 :00 ended Medical release Branch SERTraline 2022- No 12.5mg Take 12.5 Univers 25 mg 3-20 03-20 mg by ity of tablet 12:29: 00:00 mouth. [place] 50 :00 [facility] Branch ramipriL 10 2022- No 10mg Take 10 mg Univers mg capsule 3-20 03-20 by mouth ity of 12:29: 00:00 daily. [place] [address] :00 [facility] Cranberry 2022- No 500mg Take 500 [facility] [place] 500 mg Cap 3-20 03-20 mg by ity of 12:29: 00:00 mouth 2 [place] 50 :00 (two) Medical times Branch daily. d-mannose 2022- No Take by Univ ers 500 mg Cap 3-20 03-20 mouth. ity of 12:29: 00:00 [place] [address] :00 [facility] Branch folic acid 2022- No [id number] Take by Univers (FA-8) 0.8 3-20 03-20 mouth. ity of mg Cap 12:29: 00:00 [place] 50 :00 [facility] Branch CALCIUM 2022- No [facility] CIT[facility] 3-20 03-20 mouth. ity of ORAL 12:29: 00:00 [place] 50 :00 [facility] Branch NIFEdipine 2022- No Nifedical U nivers XL 30 mg 24 3-20 03-20 XL 30 mg ity of hr tablet 12:29: 00:00 tablet,ext [place] 50 :00 ended Medical release Branch SERTraline 2022- No 12.5mg Take 12.5 Univers 25 mg 3-20 03-20 mg by ity of tablet 12:29: 00:00 mouth. [place] 50 :00 [facility] Branch ramipriL 10 2022- No 10mg Take 10 mg Univers mg capsule 3-20 03-20 by mouth ity of 12:29: 00:00 daily. [place] 50 :00 [facility] Cranberry 2022- No 500mg Take 500 [place] 500 mg Cap 3-20 03-20 mg by ity of 12:29: 00:00 mouth 2 [place] 50 :00 (two) Medical times Branch daily. d-mannose 2022- No Take by Univ ers 500 mg Cap 3-20 03-20 mouth. ity of 12:29: 00:00 [place] 50 :00 Medical Branch ferrous 2022- No [id number] 325mg Take 1 U nivers sulfate 325 3-20 04-20 tablet by it y of mg (65 mg 00:00: 04:59 mouth in [place] as iron) 00 :00 the Medical tablet morning Branch and 1 tablet in the evening. Do all this for 30 days. furosemide 2022- No [id number] 40mg Take 1 Univers 40 mg 3-20 04-20 tablet by ity of tablet 00:00: 04:59 mouth in [place] 00 :00 the Medical morning Branch for 30 days. ferrous 2022- No [id number] 325mg Take 1 U nivers sulfate 325 3-20 04-20 tablet by it y of mg (65 mg 00:00: 04:59 mouth in [place] iron) 00 :00 the Medical tablet morning Branch and 1 tablet in the evening. Do all this for 30 days. furosemide 2022- No [id number] 40mg Take 1 Univers 40 mg 3-20 04-20 tablet by ity of tablet 00:00: 04:59 mouth in [place] 00 :00 the Medical morning Branch for 30 days. ferrous 2022- No [id number] 325mg Take 1 U nivers sulfate 325 3-20 04-20 tablet by it y of mg (65 mg 00:00: 04:59 mouth in [place] iron) 00 :00 the Medical tablet morning Branch and 1 tablet in the evening. Do all this for 30 days. furosemide 2022- No [id number] 40mg Take 1 Univers 40 mg 3-20 04-20 tablet by ity of tablet 00:00: 04:59 mouth in [place] 00 :00 the Medical morning Branch for 30 days. ferrous 2022- No [id number] 325mg Take 1 U nivers sulfate 325 3-20 04-20 tablet by it y of mg (65 mg 00:00: 04:59 mouth in [place] iron) 00 :00 the Medical tablet morning Branch and 1 tablet in the evening. Do all this for 30 days. furosemide 2022- No [id number] 40mg Take 1 Univers 40 mg 3-20 04-20 tablet by ity of tablet 00:00: 04:59 mouth in [place] 00 :00 the Medical morning Branch for 30 days. ferrous 2022- No [id number] 325mg Take 1 U nivers sulfate 325 3-20 04-20 tablet by it y of mg (65 mg 00:00: 04:59 mouth in [place] iron) 00 :00 the Medical tablet morning Branch and 1 tablet in the evening. Do all this for 30 days. furosemide 2022- No [id number] 40mg Take 1 Univers 40 mg 3-20 04-20 tablet by ity of tablet 00:00: 04:59 mouth in [place] 00 :00 the Medical morning Branch for 30 days. ferrous 2022- No [id number] 325mg Take 1 U nivers sulfate 325 3-20 04-20 tablet by it y of mg (65 mg 00:00: 04:59 mouth in [place] iron) 00 :00 the Medical tablet morning Branch and 1 tablet in the evening. Do all this for 30 days. furosemide 2022- No [id number] 40mg Take 1 Univers 40 mg 3-20 04-20 tablet by ity of tablet 00:00: 04:59 mouth in [place] 00 :00 the Medical morning Branch for 30 days. ferrous 2022- No [id number] 325mg Take 1 U nivers sulfate 325 3-20 04-20 tablet by it y of mg (65 mg 00:00: 04:59 mouth in [place] as iron) 00 :00 the Medical tablet morning Branch and 1 tablet in the evening. Do all this for 30 days. furosemide 2022- No [id number] 40mg Take 1 Univers 40 mg 3-20 04-20 tablet by ity of tablet 00:00: 04:59 mouth in [place] 00 :00 the Medical morning Branch for 30 days. ferrous 2022- No [id number] 325mg Take 1 U nivers sulfate 325 3-20 04-20 tablet by it y of mg (65 mg 00:00: 04:59 mouth in [place] as iron) 00 :00 the Medical tablet morning Branch and 1 tablet in the evening. Do all this for 30 days. furosemide 2022-0 2022- No [id number] 40mg Take 1 Univers 40 mg 3-20 04-10 tablet by ity of tablet 00:00: 00:00 mouth in [place] 00 :00 the Medical morning Branch for 30 days. fosfomycin 0 2022- No [id number] 3g Take 3 g Univers 3 gram 20 03-21 by mouth ity of packet 00:00: 04:59 once now [place] 00 :00 for 1 Medical dose. Branch ferrous 2022-0 Yes 325mg 325 mg, Univer s sulfate 3-19 Oral, BID, ity of tablet 325 01:00: First dose [place] mg 00 on Sat Medical 11/09/22 at Branch 1999, Until Discontinu ed, Routine levalbutero 0 Yes .63mg 0.63 mg, U nivers l (XOPENEX) 3-19 Inhalation it y of nebulizer 01:00: , TID, [place] solution 00 First dose Medic al 0.63 mg (after Branch last modificati on) on 11/09/22 at 2000, Until Discontinu ed, Routine furosemide 2022-0 Yes 40mg 40 mg, Unive rs (LASIX) 3-18 Slow IV ity of injection 22:00: Push, [place] 40 mg 00 QAM+PM, Medical First dose Branch (after last modificati on) on 11/09/22 at 1700, Until Discontinu ed, Routine famotidine 0 Yes 10mg 10 mg, Unive rs (PEPCID AC) 3-18 Oral, ity of tablet 10 14:00: DAILY, [place] mg 00 First dose Medical (after Branch last modificati on) on 11/09/22 at 0900, Until Discontinu ed, Routine metoprolol 0 Yes 25mg 25 mg, Unive rs succinate 3-17 Oral, ity of XL (TOPROL 14:00: DAILY, [place] XL) tablet 00 First dose Med ical 25 mg on Fri Branch 11/08/22 at 0900, Until Discontinu ed, Routine aspirin EC 2022-0 Yes 81mg 81 mg, Unive rs tablet 81 3-17 Oral, ity of mg 14:00: DAILY, [place] 00 First dose Medical on Fri Branch 11/08/22 at 0900, Until Discontinu ed, Routine furosemide 2022- No 20mg 20 mg, [facility] ers (LASIX) 11-08 Slow IV ity of injection 14:00: 18:42 Push, [place] 20 mg 00 :42 QAM+PM, Medical First dose Branch on Fri11/08/22 at 0900, Until Discontinu ed, Routine levalbutero 2022- No .63mg 0.63 mg, Univers l (XOPENEX) 11-08 Inhalation i ty of nebulizer 13:00: 19:38 , TID, [place] solution 00 :15 First dose Medic al 0.63 mg (after Branch last modificati on) on Fri11/08/22 at 0800, Until Discontinu ed, Routine famotidine No 20mg 20 mg, [facility] ers (PEPCID AC) 11-08 Oral, BID, i ty of tablet 20 13:00: 14:23 First dose [place] mg 00 :43 on Fri Medical 11/08/22 at Branch 0800, Until Discontinu ed, Routine cefTRIAXone No 1000mg 1,000 mg, Univers (ROCEPHIN) 11-08 IV ity of 1,000 mg in 12:15: 12:14 Piggyback, [place] NaCl 0.9% 00 :00 Q24H ABX, Medic al (NS) 100 mL 5 doses, Bran ch MINI-BAG First dose on Fri11/08/22 at 0715, Last dose on Fri11/12/22 at 0715, Administer over 30 Minutes, 100 mL
Reas on for Anti-Infec tive: Empiric Therapy for Suspected Infection< br>Empiric Therapy Site: Urine
D uration of therapy: 72 hours levothyroxi Yes 75ug 75 mcg, Uni vers ne 11-08 Oral, ity of (SYNTHROID) 11:00: QAM-0600, [place] tablet 75 00 First dose Medi andrez mcg on Fri Branch 11/08/22 at 0600, Until Discontinu ed apixaban Yes 2.5mg 2.5 mg, Unive rs (ELIQUIS) 11-08 Oral, BID, ity of tablet 2.5 01:00: First dose [place] mg 00 on [place] Medical 11/07/22 at Branch 2000, Until Discontinu ed, Routine
Indicatio ns: Non-Valvul ar Atrial Fibrillati on levalbutero 2022- No 1.25mg 1.25 mg, Univers l (XOPENEX) 11-08 Inhalation i ty of nebulizer 01:00: 11:00 , TID, [place] solution 00 :08 First dose Medic al 1.25 mg on [place] Branch 11/07/22 at 2000, Until Discontinu ed, Routine iopamidol 2022- No [id number] 80mL 80 mL, Univers (ISOVUE 11-08 Intravenou ity o f 370-500 mL) 00:15: 00:15 s, ONCE, 1 [place] injection 00 :00 dose, On Medica l 80 mL [facility] Branch 11/07/22 at 1915, Routine azithromyci No 500mg 500 mg, IV Univers n 11-07 Piggyback, ity of (ZITHROMAX) 23:30: 10:59 Q24H ABX, [place] 500 mg in 00 :48 3 doses, Medica l NaCl 0.9% First dose Bran ch (NS) 250 mL on [place] VIAL-MATE 11/07/22 at IV 1830, Last piggyback dose on 11/09/22 at 1830, Administer over 60 Minutes, 250 mL
Reas on for Anti-Infec tive: Empiric Therapy for Suspected Infection< br>Empiric Therapy Site: Respirator y
Durat ion of therapy: 72 hours ipratropium 2022- No .5mg 0.5 mg, Un [facility] (ATROVENT) 11-07 Inhalation it y of 0.02 % 23:00: 11:00 , Q6H, [place] nebulizer 00 :18 First dose Medi andrez solution on [facility] Branch 0.5 mg 11/07/22 at 1800, Until Discontinu ed, Routine methylpredn 2023-0 2023- No 125mg 125 mg, U nivers isolone sod 316 03-16 Intravenou i ty of succ 23:00: 23:58 s, Q6H, [place] (SOLU-MEDRO 00 :35 First dose Me dical L) on [place] Branch injection 11/07/22 at 125 mg 1800, Until Discontinu ed, Routine guaiFENesin 2022-0 Yes 200mg 200 mg, [facility] [place] 100 mg/5 mL 16 Oral, ity of solution 22:21: Q6HPRN, [place] 200 mg 14 Starting Medical on [place] Branch 11/07/22 at 1721, Until Discontinu ed, Routine, Cough acetaminoph 2022-0 Yes 650mg 650 mg, [facility] [place] en 16 Oral, ity of (TYLENOL) 22:20: Q6HPRN, [place] tablet 650 52 Starting Medic al mg on [place] Branch 11/07/22 at 1720, Until Discontinu ed, Routine, Pain (scale 1-3) FLUoxetine 2022-0 Yes Univers 10 mg 2-20 ity of capsule 00:00: [place] [facility] FLUoxetine 2022-0 Yes Univers 10 mg 2-20 ity of capsule 00:00: [address] Branch FLUoxetine 2022-0 Yes Univers 10 mg 2-20 ity of capsule 00:00: [place] [facility] Branch FLUoxetine 2022-0 Yes Univers 10 mg 2-20 ity of capsule 00:00: [address] FLUoxetine 2022-0 Yes Univers 10 mg 2-20 ity of capsule 00:00: [address] Branch FLUoxetine 2022-0 Yes Univers 10 mg 2-20 ity of capsule 00:00: [place] [facility] Branch FLUoxetine 2022-0 Yes Univers 10 mg 2-20 ity of capsule 00:00: [address] Branch FLUoxetine 2022-0 Yes Univers 10 mg 2-20 ity of capsule 00:00: [place] [facility] Branch FLUoxetine 3-0 Yes Univers 10 mg 2-20 ity of capsule 00:00: [place] [facility] FLUoxetine 2022-0 Yes Univers 10 mg 2-20 ity of capsule 00:00: [address] FLUoxetine 2022-0 Yes Univers 10 mg 2-20 ity of capsule 00:00: [address] FLUoxetine 2022-0 Yes Univers 10 mg 2-20 ity of capsule 00:00: [address] FLUoxetine Yes Univers 10 mg 2-20 ity of capsule 00:00: [facility] FLUoxetine Yes Univers 10 mg 2-20 ity of capsule 00:00: [facility] FLUoxetine Yes Univers 10 mg 2-20 ity of capsule 00:00: [facility] FLUoxetine 0 Yes Univers 10 mg 2-20 ity of capsule 00:00: [facility] Branch denosumab 2021- No [id number] 60mg 60 mg, U nivers (PROLIA) 05-23 Subcutaneo ity of injection 18:11: 18:17 [place], ONCE, [place] 60 mg 00 :00 1 dose, On Med ical [place] Branch 05/23/22 at 1315, Routine
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
Reaso n for non-formul miquel use: PATIENT CURRENTLY TAKING NONFORMULA RY PRODUCT d-mannose Yes [facility] Cap 7-20 mouth. ity of 17:29: [address] spironolact Yes Take by Uni vers one 25 mg/5 7-20 mouth ity of mL oral 17:29: daily. [place] suspension [address] [place] [address] levothyroxi Yes 75mg Take 75 mg Univers ne sodium 7-20 by mouth. ity o f (LEVOTHROID 17:29: [place] ORAL) [address] [place] [address] mirabegron Yes Take by [facility] ers (MYRBETRIQ) 7-20 mouth ity of 50 mg 17:29: daily. [place] tablet [address] [place] [address] Branch d-mannose Yes Take by Unive rs 500 mg Cap 7-20 mouth. ity of 17:29: [address] spironolact Yes Take by Uni vers one 25 mg/5 7-20 mouth ity of mL oral 17:29: daily. [place] suspension [address] [place] [address] levothyroxi Yes 75mg Take 75 mg Univers ne sodium 7-20 by mouth. ity o f (LEVOTHROID 17:29: [place] ORAL) [address] [place] [address] mirabegron 2022-0 Yes Take by [facility] ers (MYRBETRIQ) 7-20 mouth ity of 50 mg 17:29: daily. [place] tablet 15 Medical Branch d-mannose 0 Yes Take by Unive rs 500 mg Cap 7-20 mouth. ity of 17:29: [place] 15 Medical Branch spironolact Yes Take by Uni vers one 25 mg/5 7-20 mouth ity of mL oral 17:29: daily. [place] suspension 15 Medical Branch levothyroxi 0 Yes 75mg Take 75 mg Univers ne sodium 7-20 by mouth. ity o f (LEVOTHROID 17:29: [place] ORAL) 15 Medical Branch mirabegron Yes Take by [facility] ers (MYRBETRIQ) 7-20 mouth ity of 50 mg 17:29: daily. [place] tablet 15 Medical Branch d-mannose Yes Take by Unive rs 500 mg Cap 7-20 mouth. ity of 17:29: [place] 15 Medical Branch spironolact Yes Take by Uni vers one 25 mg/5 7-20 mouth ity of mL oral 17:29: daily. [place] suspension 15 Medical Branch levothyroxi Yes 75mg Take 75 mg Univers ne sodium 7-20 by mouth. ity o f (LEVOTHROID 17:29: [place] ORAL) 15 Medical Branch mirabegron Yes Take by [facility] ers (MYRBETRIQ) 7-20 mouth ity of 50 mg 17:29: daily. [place] tablet 15 Medical Branch amiodarone 0 Yes 200mg Take 200 [facility] [place] 200 mg 7-12 mg by ity of tablet 00:00: mouth in [place] 00 the Medical morning. Branch amiodarone 0 Yes 200mg Take 200 [facility] [place] 200 mg 7-12 mg by ity of tablet 00:00: mouth in [place] 00 the Medical morning. Branch amiodarone 2021-0 Yes 200mg Take 200 [facility] [place] 200 mg 7-12 mg by ity of tablet 00:00: mouth in [place] 00 the Medical morning. Branch amiodarone 0 Yes 200mg Take 200 [facility] [place] 200 mg 7-12 mg by ity of tablet 00:00: mouth in [place] 00 the Medical morning. Branch amiodarone 0 2022- No 200mg Take 200 U nivers 200 mg 7-12 03-20 mg by ity of tablet 00:00: 00:00 mouth in [place] 00 :00 the Medical morning. Branch amiodarone 2021-0 2022- No 200mg Take 200 U nivers 200 mg 7-12 03-20 mg by ity of tablet 00:00: 00:00 mouth in [place] 00 :00 the Medical morning. Branch amLODIPine 2021-0 Yes 2.5mg Take 2.5 [place] 2.5 mg 6-20 mg by ity of tablet 00:00: mouth in [place] 00 the Medical morning Branch and 2.5 mg in the evening. amLODIPine 2021-0 Yes 2.5mg Take 2.5 [facility] 2.5 mg 6-20 mg by ity of tablet 00:00: mouth in [place] 00 the Medical morning Branch and 2.5 mg in the evening. amLODIPine 2021-0 Yes 2.5mg Take 2.5 [facility] 2.5 mg 6-20 mg by ity of tablet 00:00: mouth in [place] 00 the Medical morning Branch and 2.5 mg in the evening. amLODIPine 2021-0 Yes 2.5mg Take 2.5 [facility] 2.5 mg 6-20 mg by ity of tablet 00:00: mouth in [place] 00 the Medical morning Branch and 2.5 mg in the evening. amLODIPine 2021-0 2022- No 2.5mg Take 2.5 U nivers 2.5 mg 6-20 03-20 mg by ity of tablet 00:00: 00:00 mouth in [place] 00 :00 the Medical morning Branch and 2.5 mg in the evening. amLODIPine 2021-0 2022- No 2.5mg Take 2.5 U nivers 2.5 mg 6-20 03-20 mg by ity of tablet 00:00: 00:00 mouth in [place] 00 :00 the Medical morning Branch and 2.5 mg in the evening. ELIQUIS 2.5 2021-0 Yes 2.5mg Take 2.5 U nivers mg tablet 6-17 mg by ity of 00:00: mouth 2 [place] 00 (two) Medical times Branch daily. ELIQUIS 2.5 2021-0 Yes 2.5mg Take 2.5 U nivers mg tablet 6-17 mg by ity of 00:00: mouth (two) Medical times Branch daily. ELIQUIS 2.5 2021-0 Yes 2.5mg Take 2.5 U nivers mg tablet 6-17 mg by ity of 00:00: mouth (two) Medical times Branch daily. ELIQUIS 2.5 2021-0 Yes 2.5mg Take 2.5 U nivers mg tablet 6-17 mg by ity of 00:00: mouth (two) Medical times Branch daily. ELIQUIS 2.5 2021-0 Yes 2.5mg Take 2.5 U nivers mg tablet 6-17 mg by ity of 00:00: mouth (two) Medical times Branch daily. ELIQUIS 2.5 2021-0 Yes 2.5mg Take 2.5 U nivers mg tablet 6-17 mg by ity of 00:00: mouth (two) Medical times Branch daily. ELIQUIS 2.5 2021-0 Yes 2.5mg Take 2.5 U nivers mg tablet 6-17 mg by ity of 00:00: mouth (two) Medical times Branch daily. ELIQUIS 2.5 2021-0 Yes 2.5mg Take 2.5 U nivers mg tablet 6-17 mg by ity of 00:00: mouth (two) Medical times Branch daily. ELIQUIS 2.5 2021-0 Yes 2.5mg Take 2.5 U nivers mg tablet 6-17 mg by ity of 00:00: mouth (two) Medical times Branch daily. ELIQUIS 2.5 2021-0 Yes 2.5mg Take 2.5 U nivers mg tablet 6-17 mg by ity of 00:00: mouth (two) Medical times Branch daily. ELIQUIS 2.5 2021-0 Yes 2.5mg Take 2.5 U nivers mg tablet 6-17 mg by ity of 00:00: mouth (two) Medical times Branch daily. ELIQUIS 2.5 2021-0 Yes 2.5mg Take 2.5 U nivers mg tablet 6-17 mg by ity of 00:00: mouth (two) Medical times Branch daily. ELIQUIS 2.5 2021-0 Yes 2.5mg Take 2.5 U nivers mg tablet 6-17 mg by ity of 00:00: mouth (two) Medical times Branch daily. ELIQUIS 2.5 2021-0 Yes 2.5mg Take 2.5 U nivers mg tablet 6-17 mg by ity of 00:00: mouth (two) Medical times Branch daily. ELIQUIS 2.5 2021-0 Yes 2.5mg Take 2.5 U nivers mg tablet 6-17 mg by ity of 00:00: mouth (two) Medical times Branch daily. ELIQUIS 2.5 2021-0 Yes 2.5mg Take 2.5 U nivers mg tablet 6-17 mg by ity of 00:00: mouth (two) Medical times Branch daily. ELIQUIS 2.5 2021-0 Yes 2.5mg Take 2.5 U nivers mg tablet 6-17 mg by ity of 00:00: mouth (two) Medical times Branch daily. ELIQUIS 2.5 0 Yes 2.5mg Take 2.5 U nivers mg tablet 6-17 mg by ity of 00:00: mouth (two) Medical times Branch daily. ELIQUIS 2.5 2021-0 Yes 2.5mg Take 2.5 U nivers mg tablet 6-17 mg by ity of 00:00: mouth (two) Medical times Branch daily. ELIQUIS 2.5 2021-0 Yes 2.5mg Take 2.5 U nivers mg tablet 6-17 mg by ity of 00:00: mouth (two) Medical times Branch daily. ELIQUIS 2.5 2021-0 Yes 2.5mg Take 2.5 U nivers mg tablet 6-17 mg by ity of 00:00: mouth (two) Medical times Branch daily. ELIQUIS 2.5 2021-0 Yes 2.5mg Take 2.5 U nivers mg tablet 6-17 mg by ity of 00:00: mouth (two) Medical times Branch daily. ELIQUIS 2.5 2021-0 Yes 2.5mg Take 2.5 U nivers mg tablet 6-17 mg by ity of 00:00: mouth 2 [place] (two) Medical times Branch daily. ELIQUIS 2.5 2021-0 Yes 2.5mg Take 2.5 U nivers mg tablet 6-17 mg by ity of 00:00: mouth 2 [place] (two) Medical times Branch daily. ELIQUIS 2.5 2021-0 Yes 2.5mg Take 2.5 U nivers mg tablet 6-17 mg by ity of 00:00: mouth 2 [place] (two) Medical times Branch daily. SERTraline 2020-0 Yes 12.5mg Take 12.5 [facility] 25 mg 8-06 mg by ity of tablet 11:25: mouth. Medical Branch [place] 2020-0 Yes 500mg Take 500 Uni vers 500 mg Cap 8-06 mg by ity of 11:25: mouth 2 [place] [address] (two) Medical times Branch daily. iron,carb/f 2020- Yes 1{tbl} Take 1 [facility] olic ac/vit 8-06 tablet by ity of Bcomp,C 11:25: mouth 2 [place] (IRON-FOLIC 07 (two) Medical 500 ORAL) times Branch daily. SERTraline 2020-0 Yes 12.5mg Take 12.5 [facility] 25 mg 8-06 mg by ity of tablet 11:25: mouth. [place] [address] Medical Branch Cran[place] 2020-0 Yes 500mg Take 500 Uni vers 500 mg Cap 8-06 mg by ity of 11:25: mouth 2 [place] (two) Medical times Branch daily. iron,carb/f 2020-0 Yes 1{tbl} Take 1 [facility] olic ac/vit 8-06 tablet by ity of Bcomp,C 11:25: mouth 2 [place] (IRON-FOLIC 07 (two) Medical 500 ORAL) times Branch daily. SERTraline 2020-0 Yes 12.5mg Take 12.5 [facility] 25 mg 8-06 mg by ity of tablet 11:25: mouth. [place] [address] Medical Branch Cran[place] 2020-0 Yes 500mg Take 500 Uni vers 500 mg Cap 8-06 mg by ity of 11:25: mouth 2 [place] 07 (two) Medical times Branch daily. iron,carb/f 2020-0 Yes 1{tbl} Take 1 [facility] olic ac/vit 8-06 tablet by ity of Bcomp,C 11:25: mouth 2 [place] (IRON-FOLIC 07 (two) Medical 500 ORAL) times Branch daily. SERTraline Yes 12.5mg Take 12.5 [facility] 25 mg 8-06 mg by ity of tablet 11:25: mouth. [address] Cran[place] Yes 500mg Take 500 Uni vers 500 mg Cap 8-06 mg by ity of 11:25: mouth 2 [place] [address] (two) Medical times Branch daily. iron,carb/f Yes 1{tbl} Take 1 [facility] olic ac/vit 8-06 tablet by ity of Bcomp,C 11:25: mouth 2 [place] (IRON-FOLIC 07 (two) Medical 500 ORAL) times Branch daily. folic acid Yes [id number] Take by [facility] (FA-8) 0.8 4-15 mouth. ity of mg Cap 10:51: [address] Magnesium Yes [id number] 500mg Take 500 [facility] 250 mg Tab 4-15 mg by ity of 10:51: mouth. [address] aspirin 81 Yes 81mg Take 81 mg U nivers mg EC 4-15 by mouth ity of tablet 10:51: daily. [address] CALCIUM Yes Take by [facility] CITRATE 4-15 mouth. ity of ORAL 10:51: [address] NIFEdipine Yes Nifedical [facility] XL 30 mg 24 4-15 XL 30 mg ity of hr tablet 10:51: [place] [address] [place] [address] ramipriL 10 Yes 10mg Take 10 mg [facility] mg capsule 4-15 by mouth ity o f 10:51: daily. [address] folic acid Yes [id number] Take by [facility] (FA-8) 0.8 4-15 mouth. ity of mg Cap 10:51: [address] Magnesium Yes [id number] 500mg Take 500 [facility] 250 mg Tab 4-15 mg by ity of 10:51: mouth. [address] aspirin 81 2020-0 Yes 81mg Take 81 mg U nivers mg EC 4-15 by mouth ity of tablet 10:51: daily. [address] CALCIUM Yes Take by [facility] CITRATE 4-15 mouth. ity of ORAL 10:51: [address] NIFEdipine Yes Nifedical [facility] XL 30 mg 24 4-15 XL 30 mg ity of hr tablet 10:51: tablet,ext [place] [facility] ended [facility] ramipriL 10 Yes 10mg Take 10 mg [facility] mg capsule 4-15 by mouth ity o f 10:51: daily. [address] folic acid Yes [id number] Take by [facility] (FA-8) 0.8 4-15 mouth. ity of mg Cap 10:51: [address] Magnesium Yes [id number] 500mg Take 500 [facility] 250 mg Tab 4-15 mg by ity of 10:51: mouth. [address] aspirin 81 0 Yes 81mg Take 81 mg U nivers mg EC 4-15 by mouth ity of tablet 10:51: daily. [address] CALCIUM Yes Take by Univers CITRATE 4-15 mouth. ity of ORAL 10:51: [address] NIFEdipine Yes Nifedical [facility] XL 30 mg 24 4-15 XL 30 mg ity of hr tablet 10:51: tablet,ext [place] 38 [facility] ramipriL 10 Yes 10mg Take 10 mg [facility] mg capsule 4-15 by mouth ity o f 10:51: daily. [address] folic acid 0 Yes [id number] Take by [facility] (FA-8) 0.8 4-15 mouth. ity of mg Cap 10:51: [address] Magnesium 2020-0 Yes [id number] 500mg Take 500 [facility] 250 mg Tab 4-15 mg by ity of 10:51: mouth. [address] aspirin 81 0 Yes 81mg Take 81 mg U nivers mg EC 4-15 by mouth ity of tablet 10:51: daily. [address] CALCIUM 0 Yes Take by [facility] CITRATE 4-15 mouth. ity of ORAL 10:51: [address] NIFEdipine 0 Yes Nifedical [facility] XL 30 mg 24 4-15 XL 30 mg ity of hr tablet 10:51: tablet,ext [place] 38 [facility] ramipriL 10 0 Yes 10mg Take 10 mg [facility] mg capsule 4-15 by mouth ity o f 10:51: daily. [address] 24 HR 2019-08 Yes 50 mg = 1 [facility] mirabegron 2-30 tab, PO, l 50 MG 15:24: Daily, # [place] Extended 00 30 tab, 0 Release Refill(s), Tablet Pharmacy: [[facility]] [employer] [place], 160.02, cm, 08/23/20 8:57:00 [employer], Height, 60, kg, 08/23/20 8:57:00 [employer], Weight 24 HR 2019-08 Yes 50 mg = 1 [facility] mirabegron 2-30 tab, PO, l 50 MG 15:24: Daily, # [place] Extended 00 30 tab, 0 Release Refill(s), Tablet Pharmacy: [[facility]] [employer] [place], 160.02, cm, 08/23/20 8:57:00 [employer], Height, 60, kg, 08/23/20 8:57:00 [employer], Weight 24 HR 2019-08 Yes 50 mg = 1 [facility] mirabegron 2-30 tab, PO, l 50 MG 15:24: Daily, # [place] Extended 00 30 tab, 0 Release Refill(s), Tablet Pharmacy: [[facility]] [employer] [place], 160.02, cm, 08/23/20 8:57:00 [employer], Height, 60, kg, 08/23/20 8:57:00 [employer], Weight 24 HR 2019-08 Yes 50 mg = 1 Memoria mirabegron 2-30 tab, PO, l 50 MG 15:24: Daily, # [place] Extended 00 30 tab, 0 Release Refill(s), Tablet Pharmacy: [[facility]] [employer] [place], 160.02, cm, 08/23/20 8:57:00 [employer], Height, 60, kg, 08/23/20 8:57:00 [employer], Weight 24 HR 2019-08 Yes 50 mg = 1 Memoria mirabegron 2-30 tab, PO, l 50 MG 15:24: Daily, # [place] Extended 00 30 tab, 0 Release Refill(s), Tablet Pharmacy: [[facility]] [employer] [place], 160.02, cm, 08/23/20 8:57:00 [employer], Height, 60, kg, 08/23/20 8:57:00 [employer], Weight 24 HR 2019-08 Yes 50 mg = 1 Memoria mirabegron 2-30 tab, PO, l 50 MG 15:24: Daily, # [place] Extended 00 30 tab, 0 Release Refill(s), Tablet Pharmacy: [[facility]] [employer] [place], 160.02, cm, 08/23/20 8:57:00 [employer], Height, 60, kg, 08/23/20 8:57:00 [employer], Weight 24 HR 2019-08 Yes 50 mg = 1 Memoria mirabegron 2-30 tab, PO, l 50 MG 15:24: Daily, # [place] Extended 00 30 tab, 0 Release Refill(s), Tablet Pharmacy: [[facility]] [employer] [place], 160.02, cm, 08/23/20 8:57:00 [employer], Height, 60, kg, 08/23/20 8:57:00 [employer], Weight 24 HR 2019-08 Yes 50 mg = 1 Memoria mirabegron 2-30 tab, PO, l 50 MG 15:24: Daily, # [place] Extended 00 30 tab, 0 Release Refill(s), Tablet Pharmacy: [[facility]] [employer] [place], 160.02, cm, 08/23/20 8:57:00 [employer], Height, 60, kg, 08/23/20 8:57:00 [employer], Weight 24 HR 2019-08 Yes 50 mg = 1 Memoria mirabegron 2-30 tab, PO, l 50 MG 15:24: Daily, # [place] Extended 00 30 tab, 0 Release Refill(s), Tablet Pharmacy: [[facility]] [employer] [place], 160.02, cm, 08/23/20 8:57:00 [employer], Height, 60, kg, 08/23/20 8:57:00 [employer], Weight 24 HR 2019-08 Yes 50 mg = 1 Memoria mirabegron 2-30 tab, PO, l 50 MG 15:24: Daily, # [place] Extended 00 30 tab, 0 Release Refill(s), Tablet Pharmacy: [[facility]] [employer] [place], 160.02, cm, 08/23/20 8:57:00 [employer], Height, 60, kg, 08/23/20 8:57:00 [employer], Weight 24 HR 2019-08 Yes 50 mg = 1 Memoria mirabegron 2-30 tab, PO, l 50 MG 15:24: Daily, # [place] Extended 00 30 tab, 0 Release Refill(s), Tablet Pharmacy: [[facility]] [facility], 160.02, cm, 08/23/20 8:57:00 [employer], Height, 60, kg, 08/23/20 8:57:00 [employer], Weight 24 HR 2019-08 Yes 50 mg = 1 Memoria mirabegron 2-30 tab, PO, l 50 MG 15:24: Daily, # [place] Extended 00 30 tab, 0 Release Refill(s), Tablet Pharmacy: [[facility]] [facility]LE[facility], 160.02, cm, 08/23/20 8:57:00 [employer], Height, 60, kg, 08/23/20 8:57:00 [employer], Weight 24 HR 2019-08 Yes 50 mg = 1 Memoria mirabegron 0-21 tab, PO, l 50 MG 16:58: Daily, # [place] Extended 00 30 tab, 0 Release Refill(s), [...] PO, l 50 MG 16:58: Daily, # [place] Extended 00 30 tab, 0 Release Refill(s), [...] PO, l 50 MG 16:58: Daily, # [place] Extended 00 30 tab, 0 Release Refill(s), [...] PO, l 50 MG 16:58: Daily, # [place] Extended 00 30 tab, 0 Release Refill(s), [...] PO, l 50 MG 16:58: Daily, # [place] Extended 00 30 tab, 0 Release Refill(s), [...] PO, l 50 MG 16:58: Daily, # [place] Extended 00 30 tab, 0 Release Refill(s), [...] PO, l 50 MG 16:58: Daily, # [place] Extended 00 30 tab, 0 Release Refill(s), [...] PO, l 50 MG 16:58: Daily, # [place] Extended 00 30 tab, 0 Release Refill(s), [...] PO, l 50 MG 16:58: Daily, # [place] Extended 00 30 tab, 0 Release Refill(s), [...] PO, l 50 MG 16:58: Daily, # [place] Extended 00 30 tab, 0 Release Refill(s), [...] PO, l 50 MG 16:58: Daily, # [place] Extended 00 30 tab, 0 Release Refill(s), Tablet Pharmacy: [[facility]] [facility], 160.02, cm, 06/14/20 10:46:00 CDT, Height, 60, kg, 06/14/20 10:46:00 CDT, Weight Estradiol 2020- Yes See Memoria 0.1 MG/ML 0-21 Instructio l Vaginal 16:58: ns, apply Mela nn Cream 00 pea size [Estrace] amount to urethra and vagina 3xweek. May dispose of applicator ., # 43 gm, 3 Refill(s), Pharmacy: [facility], 160.02, cm, 06/14/20 10:46:00 CDT, Height, 60, kg, 06/14/20 10:46:00 CDT, Weight 24 HR 2019-08 Yes 50 mg = 1 Memoria mirabegron 0-21 tab, PO, l 50 MG 16:58: Daily, # [place] Extended 00 30 tab, 0 Release Refill(s), Tablet Pharmacy: [[facility]] [facility], 160.02, cm, 06/14/20 10:46:00 CDT, Height, 60, kg, 06/14/20 10:46:00 CDT, Weight Estradiol 2019-08 Yes See Memoria 0.1 MG/ML 0-21 Instructio l Vaginal 16:58: ns, apply Mela nn Cream 00 pea size [Estrace] amount to urethra and vagina 3xweek. May dispose of applicator ., # 43 gm, 3 Refill(s), Pharmacy: [facility], 160.02, cm, 06/14/20 10:46:00 CDT, Height, [...] sony in 0 (Same l 14:55: as:Nitroqu [place] 00 ick, Nitrostat) "Do Not Crush" Sublingual [...] sony in 0 (Same l 14:55: as:Nitroqu [place] 00 ick, Nitrostat) "Do Not Crush" Sublingual [...] sony in 0 (Same l 14:55: as:Nitroqu [place] 00 ick, Nitrostat) "Do Not Crush" Sublingual [...] Arturo sony in (Same l 14:55: as:Nitroqu [place] 00 ick, Nitrostat) "Do Not Crush" Sublingual [...] Arturo sony in (Same l 14:55: as:Nitroqu [place] 00 ick, Nitrostat) "Do Not Crush" Sublingual [...] Arturo sony in (Same l 14:55: as:Nitroqu [place] 00 ick, Nitrostat) "Do Not Crush" Sublingual [...] Arturo sony in (Same l 14:55: as:Nitroqu [place] 00 ick, Nitrostat) "Do Not Crush" Sublingual [...] sony in 0 (Same l 14:55: as:Nitroqu [place] 00 ick, Nitrostat) "Do Not Crush" Sublingual [...] sony in 0 (Same l 14:55: as:Nitroqu [place] 00 ick, Nitrostat) "Do Not Crush" Sublingual [...] sony in 0 (Same l 14:55: as:Nitroqu [place] 00 ick, Nitrostat) "Do Not Crush" Sublingual [...] Arturo sony in (Same l 14:55: as:Nitroqu [place] 00 ick, Nitrostat) "Do Not Crush" Sublingual [...] Arturo sony in (Same l 14:55: as:Nitroqu [place] ick, Nitrostat) "Do Not Crush" Sublingual tablet Hydralazine 2018-08 No 10 mg, Arturo sony 0 Route: IV, l 11:50: ONCE, Dosing Weight 65.909, kg, Start date: 06/02/19 6:50:00 CDT, Stop date: 06/02/19 6:50:00 CDT Hydralazine 2018-08 No 10 mg, Arturo sony 0- Route: IV, l 11:50: ONCE, Dosing Weight 65.909, kg, Start date: 06/02/19 6:50:00 CDT, Stop date: 06/02/19 6:50:00 CDT Hydralazine 2018-08 No 10 mg, Arturo sony 0- Route: IV, l 11:50: ONCE, Dosing Weight 65.909, kg, Start date: 06/02/19 6:50:00 CDT, Stop date: 06/02/19 6:50:00 CDT Hydralazine 2018-08 No 10 mg, Arturo sony 0-09 Route: IV, l 11:50: ONCE, Dosing Weight 65.909, kg, Start date: 06/02/19 6:50:00 CDT, Stop date: 06/02/19 6:50:00 CDT Hydralazine 2018- No 10 mg, Arturo sony 0-09 Route: IV, l 11:50: ONCE, Dosing Weight 65.909, kg, Start date: 06/02/19 6:50:00 CDT, Stop date: 06/02/19 6:50:00 CDT Hydralazine 2018- No 10 mg, Arturo sony 0-09 Route: IV, l 11:50: ONCE, Dosing Weight 65.909, kg, Start date: 06/02/19 6:50:00 CDT, Stop date: 06/02/19 6:50:00 CDT Hydralazine 2018- No 10 mg, Arturo sony 0-09 Route: IV, l 11:50: ONCE, Dosing Weight 65.909, kg, Start date: 06/02/19 6:50:00 CDT, Stop date: 06/02/19 6:50:00 CDT Hydralazine 2018-08 No 10 mg, Arturo sony 0-09 Route: IV, l 11:50: ONCE, Dosing Weight 65.909, kg, Start date: 06/02/19 6:50:00 CDT, Stop date: 06/02/19 6:50:00 CDT Hydralazine 2018- No 10 mg, Arturo sony 0-09 Route: IV, l 11:50: ONCE, Dosing Weight 65.909, kg, Start date: 06/02/19 6:50:00 CDT, Stop date: 06/02/19 6:50:00 CDT Hydralazine 2018- No 10 mg, Arturo sony 0-09 Route: IV, l 11:50: ONCE, Dosing Weight 65.909, kg, Start date: 06/02/19 6:50:00 CDT, Stop date: 06/02/19 6:50:00 CDT Hydralazine 2018- No 10 mg, Arturo sony 0-09 Route: IV, l 11:50: ONCE, Dosing Weight 65.909, kg, Start date: 06/02/19 6:50:00 CDT, Stop date: 06/02/19 6:50:00 CDT Hydralazine 2018-08 No 10 mg, Arturo sony 0-09 Route: IV, l 11:50: ONCE, Dosing Weight 65.909, kg, Start date: 06/02/19 6:50:00 CDT, Stop date: 06/02/19 6:50:00 CDT oxybutynin 2018-08 Yes 5 mg = 1 Mem oria 5 mg oral 0-09 tab, PO, l tablet, 10:59: QAM, 0 [place] extended 00 Refill(s) release ramipril 2018-08 Yes 10 mg = 1 M emoria mg oral 0-09 cap, PO, l capsule 10:59: BID, 0 [place] 00 Refill(s) [place] 2018-08 Yes 1 tab, PO, Memor ia Calcium 0-09 BID, 0 l with 10:59: Refill(s) Kevin Vitamin D 00 Chelated 2018-08 Yes See Memoria Magnesium 0-09 Instructio l 10:59: ns, 250 mg [place] 00 PO QPM, 0 Refill(s) oxybutynin 2018-08 Yes 5 mg = 1 Mem oria 5 mg oral 0-09 tab, PO, l tablet, 10:59: QAM, 0 [place] extended 00 Refill(s) release ramipril 2018-08 Yes 10 mg = 1 M emoria mg oral 0-09 cap, PO, l capsule 10:59: BID, 0 [place] 00 Refill(s) [place] 2018-08 Yes 1 tab, PO, Memor ia Calcium 0-09 BID, 0 l with 10:59: Refill(s) [place] Vitamin D 00 Chelated 2018-08 Yes See Memoria Magnesium 0-09 Instructio l 10:59: ns, 250 mg [place] 00 PO QPM, 0 Refill(s) oxybutynin 2018-08 Yes 5 mg = 1 Mem oria 5 mg oral 0-09 tab, PO, l tablet, 10:59: QAM, 0 [place] extended 00 Refill(s) release ramipril 2018-08 Yes 10 mg = 1 M emoria mg oral 0-09 cap, PO, l capsule 10:59: BID, 0 [place] 00 Refill(s) [place] 2018-08 Yes 1 tab, PO, Memor ia Calcium 0-09 BID, 0 l with 10:59: Refill(s) [place] Vitamin D 00 Chelated 2018-08 Yes See Memoria Magnesium 0-09 Instructio l 10:59: ns, 250 mg [place] 00 PO QPM, 0 Refill(s) oxybutynin 2018-08 Yes 5 mg = 1 Mem oria 5 mg oral 0-09 tab, PO, l tablet, 10:59: QAM, 0 [place] extended 00 Refill(s) release ramipril 2018-08 Yes 10 mg = 1 M emoria mg oral 0-09 cap, PO, l capsule 10:59: BID, 0 [place] 00 Refill(s) [place] 2018-08 Yes 1 tab, PO, Memor ia Calcium 0-09 BID, 0 l with 10:59: Refill(s) [place] Vitamin D 00 Chelated 2018-08 Yes See Memoria Magnesium 0-09 Instructio l 10:59: ns, 250 mg Kevin 00 PO QPM, 0 Refill(s) oxybutynin 2018-08 Yes 5 mg = 1 Mem oria 5 mg oral 0-09 tab, PO, l tablet, 10:59: QAM, 0 [place] extended 00 Refill(s) release ramipril 2018-08 Yes 10 mg = 1 M emoria mg oral 0-09 cap, PO, l capsule 10:59: BID, 0 [place] 00 Refill(s) [place] 2018-08 Yes 1 tab, PO, Memor ia Calcium 0-09 BID, 0 l with 10:59: Refill(s) [place] Vitamin D 00 Chelated 2018-08 Yes See Memoria Magnesium 0-09 Instructio l 10:59: ns, 250 mg [place] 00 PO QPM, 0 Refill(s) oxybutynin 2018-08 Yes 5 mg = 1 Mem oria 5 mg oral 0-09 tab, PO, l tablet, 10:59: QAM, 0 [place] extended 00 Refill(s) release ramipril 2018-08 Yes 10 mg = 1 M emoria mg oral 0-09 cap, PO, l capsule 10:59: BID, 0 [place] 00 Refill(s) [place] 2018-08 Yes 1 tab, PO, Memor ia Calcium 0-09 BID, 0 l with 10:59: Refill(s) [place] Vitamin D 00 Chelated 2018-08 Yes See Memoria Magnesium 0-09 Instructio l 10:59: ns, 250 mg [place] 00 PO QPM, 0 Refill(s) oxybutynin 2018-08 Yes 5 mg = 1 Mem oria 5 mg oral 0-09 tab, PO, l tablet, 10:59: QAM, 0 [place] extended 00 Refill(s) release ramipril 2018-08 Yes 10 mg = 1 M emoria mg oral 0-09 cap, PO, l capsule 10:59: BID, 0 [place] 00 Refill(s) [place] 2018-08 Yes 1 tab, PO, Memor ia Calcium 0-09 BID, 0 l with 10:59: Refill(s) [place] Vitamin D 00 Chelated 2018-08 Yes See Memoria Magnesium 0-09 Instructio l 10:59: ns, 250 mg Kevin 00 PO QPM, 0 Refill(s) oxybutynin 2018-08 Yes 5 mg = 1 Mem oria 5 mg oral 0-09 tab, PO, l tablet, 10:59: QAM, 0 [place] extended 00 Refill(s) release ramipril 2018-08 Yes 10 mg = 1 M emoria mg oral 0-09 cap, PO, l capsule 10:59: BID, 0 [place] 00 Refill(s) [place] 2018-08 Yes 1 tab, PO, Memor ia Calcium 0-09 BID, 0 l with 10:59: Refill(s) [place] Vitamin D 00 Chelated 2018-08 Yes See Memoria Magnesium 0-09 Instructio l 10:59: ns, 250 mg [place] 00 PO QPM, 0 Refill(s) oxybutynin 2018-08 Yes 5 mg = 1 Mem oria 5 mg oral 0-09 tab, PO, l tablet, 10:59: QAM, 0 [place] extended 00 Refill(s) release ramipril 2018-08 Yes 10 mg = 1 M emoria mg oral 0-09 cap, PO, l capsule 10:59: BID, 0 [place] 00 Refill(s) [place] 2018-08 Yes 1 tab, PO, Memor ia Calcium 0-09 BID, 0 l with 10:59: Refill(s) [place] Vitamin D 00 Chelated 2018-08 Yes See Memoria Magnesium 0-09 Instructio l 10:59: ns, 250 mg [place] 00 PO QPM, 0 Refill(s) oxybutynin 2018-08 Yes 5 mg = 1 Mem oria 5 mg oral 0-09 tab, PO, l tablet, 10:59: QAM, 0 [place] extended 00 Refill(s) release ramipril 2018-08 Yes 10 mg = 1 M emoria mg oral 0-09 cap, PO, l capsule 10:59: BID, 0 [place] 00 Refill(s) [place] 2018-08 Yes 1 tab, PO, Memor ia Calcium 0-09 BID, 0 l with 10:59: Refill(s) [place] Vitamin D 00 Chelated 2018-08 Yes See Memoria Magnesium 0-09 Instructio l 10:59: ns, 250 mg [place] 00 PO QPM, 0 Refill(s) oxybutynin 2018-08 Yes 5 mg = 1 Mem oria 5 mg oral 0-09 tab, PO, l tablet, 10:59: QAM, 0 [place] extended 00 Refill(s) release ramipril 2018-08 Yes 10 mg = 1 M emoria mg oral 0-09 cap, PO, l capsule 10:59: BID, 0 [place] 00 Refill(s) [place] 2018-08 Yes 1 tab, PO, Memor ia Calcium 0-09 BID, 0 l with 10:59: Refill(s) [place] Vitamin D 00 Chelated 2018-08 Yes See Memoria Magnesium 0-09 Instructio l 10:59: ns, 250 mg Kevin 00 PO QPM, 0 Refill(s) oxybutynin 2018-08 Yes 5 mg = 1 Mem oria 5 mg oral 0-09 tab, PO, l tablet, 10:59: QAM, 0 Kevin extended 00 Refill(s) release ramipril 2018-08 Yes 10 mg = 1 M emoria mg oral 0-09 cap, PO, l capsule 10:59: BID, 0 Kevin 00 Refill(s) [place] 2018-08 Yes 1 tab, PO, Memor ia Calcium 0-09 BID, 0 l with 10:59: Refill(s) Kevin Vitamin D 00 Chelated 2018-08 Yes See Mem[facility] Magnesium 0-09 Instructio l 10:59: ns, 250 mg Kevin 00 PO QPM, 0 Refill(s) Bifidobacte 2019-0 Yes 4 mg = 1 Me moria rium 9-11 cap, PO, l [place] 4 19:55: Daily, # Her carrizales MG Oral 00 28 cap, 0 Capsule Refill(s) [Align] azithromyci Yes See Memori a n 250 mg 9-11 Instructio l oral tablet 19:55: ns, Take 2 [place] 00 tablets by mouth the first day then 1 tablet by mouth daily on days 2-5., # 6 tab, 0 Refill(s) Bifidobacte 2018- Yes 4 mg = 1 Me moria rium 9-11 cap, PO, l [place] 4 19:55: Daily, # Her carrizales MG Oral 00 28 cap, 0 Capsule Refill(s) [Align] azithromyci Yes See Memori a n 250 mg 9-11 Instructio l oral tablet 19:55: ns, Take 2 [place] 00 tablets by mouth the first day then 1 tablet by mouth daily on days 2-5., # 6 tab, 0 Refill(s) Bifidobacte 2018-0 Yes 4 mg = 1 Me moria rium 9-11 cap, PO, l [place] 4 19:55: Daily, # Her carrizales MG Oral 00 28 cap, 0 Capsule Refill(s) [Align] azithromyci Yes See Memori a n 250 mg 9-11 Instructio l oral tablet 19:55: ns, Take 2 [place] 00 tablets by mouth the first day then 1 tablet by mouth daily on days 2-5., # 6 tab, 0 Refill(s) Bifidobacte 2018-0 Yes 4 mg = 1 Me moria rium 9-11 cap, PO, l [place] 4 19:55: Daily, # Her carrizales MG Oral 00 28 cap, 0 Capsule Refill(s) [Align] azithromyci Yes See Memori a n 250 mg 9-11 Instructio l oral tablet 19:55: ns, Take 2 [place] 00 tablets by mouth the first day then 1 tablet by mouth daily on days 2-5., # 6 tab, 0 Refill(s) Bifidobacte 2018-0 Yes 4 mg = 1 Me moria rium 9-11 cap, PO, l [place] 4 19:55: Daily, # Her carrizales MG Oral 00 28 cap, 0 Capsule Refill(s) [Align] azithromyci 2019-0 Yes See Memori a n 250 mg 9-11 Instructio l oral tablet 19:55: ns, Take 2 [place] 00 tablets by mouth the first day then 1 tablet by mouth daily on days 2-5., # 6 tab, 0 Refill(s) Bifidobacte 2019-0 Yes 4 mg = 1 Me moria rium 9-11 cap, PO, l [place] 4 19:55: Daily, # Her carrizales MG Oral 00 28 cap, 0 Capsule Refill(s) [Align] azithromyci 0 Yes See Memori a n 250 mg 9-11 Instructio l oral tablet 19:55: ns, Take 2 [place] 00 tablets by mouth the first day then 1 tablet by mouth daily on days 2-5., # 6 tab, 0 Refill(s) Bifidobacte 2019-0 Yes 4 mg = 1 Me moria rium 9-11 cap, PO, l [place] 4 19:55: Daily, # Her carrizales MG Oral 00 28 cap, 0 Capsule Refill(s) [Align] azithromyci 0 Yes See [facility] a n 250 mg 9-11 Instructio l oral tablet 19:55: ns, Take 2 [place] 00 tablets by mouth the first day then 1 tablet by mouth daily on days 2-5., # 6 tab, 0 Refill(s) Bifidobacte 2019-0 Yes 4 mg = 1 Me moria rium 9-11 cap, PO, l [place] 4 19:55: Daily, # Her carrizales MG Oral 00 28 cap, 0 Capsule Refill(s) [Align] azithromyci 2018-0 Yes See [facility] n 250 mg 9-11 Instructio l oral tablet 19:55: ns, Take 2 [place] 00 tablets by mouth the first day then 1 tablet by mouth daily on days 2-5., # 6 tab, 0 Refill(s) Bifidobacte 2019-0 Yes 4 mg = 1 Me moria rium 9-11 cap, PO, l [place] 4 19:55: Daily, # Her carrizales MG Oral 00 28 cap, 0 Capsule Refill(s) [Align] azithromyci Yes See [facility] n 250 mg 9-11 Instructio l oral tablet 19:55: ns, Take 2 [place] 00 tablets by mouth the first day [...] l oral tablet 19:55: ns, Take 2 [place] 00 tablets by mouth the first day [...] l oral tablet 19:55: ns, Take 2 [place] 00 tablets by mouth the first day [...] l oral tablet 19:55: ns, Take 2 [place] 00 tablets by mouth the first day then 1 tablet by mouth daily on days 2-5., # 6 tab, 0 Refill(s) aspirin 81 No Notes: Do Me moria mg tablet, 10-29 not crush l enteric 15:00: or chew. [place] coated 00 (Same As: Ecotrin) clopidogrel No 75 mg, Arturo sony 10-29 Route: PO, l 15:00: Drug form: [place] 00 TAB, Daily, Dosing Weight 64.545, kg, Start date: 10/29/16 9:00:00 [employer], Duration: 30 day, Stop date: 11/27/16 9:00:00 CDT Magnesium No Notes: [facility] a Oxide - (Same as: l 15:00: Mag-Ox 400) Magnesium oxide 893ca=360g g elemental magnesium Dose=____m g magnesium oxide (___mg elemental magnesium) Folic Acid No 0.8 mg, 2 Me moria 3-07 tab, l 15:00: Route: PO, Drug form: TAB, Daily, Dosing Weight 64.545, kg, Start date: 10/29/16 9:00:00 [employer], Duration: 30 day, Stop date: 11/27/16 9:00:00 CDT ferrous No 325 mg, 1 [facility] sulfate - tab, l 15:00: Route: PO, [place] 00 Drug form: ECTAB, Daily, Dosing Weight 64.545, kg, Start date: 10/29/16 9:00:00 [employer], Duration: 30 day, Stop date: 11/27/16 9:00:00 CDT Vitamin D3 No Notes: [facility] 3-07 Same as: l 15:00: Vitamin D3 Aspirin No Notes: Do [facility] 3-07 not crush l 15:00: or chew. [place] (Same As: Ecotrin) Sertraline No Notes: [facility] 3-07 (Same as: l 15:00: Zoloft) Ramipril No Notes: [facility] 3-07 (Same l 15:00: as:Altace) aspirin 81 No Notes: Do Me moria mg tablet, 3-07 not crush l enteric 15:00: or chew. [place] coated 00 (Same As: Ecotrin) clopidogrel No 75 mg, Arturo sony 3-07 Route: PO, l 15:00: Drug form: [place] 00 TAB, Daily, Dosing Weight 64.545, kg, Start date: 10/29/16 9:00:00 [employer], Duration: 30 day, Stop date: 11/27/16 9:00:00 CDT Magnesium 2017-0 No Notes: [facility] a Oxide 3-07 (Same as: l 15:00: Mag-Ox [place] 400) Magnesium oxide 092dn=492h g elemental magnesium Dose=____m g magnesium oxide (___mg elemental magnesium) Folic Acid No 0.8 mg, 2 Me moria 3-07 tab, l 15:00: Route: PO, Drug form: TAB, Daily, Dosing Weight 64.545, kg, Start date: 10/29/16 9:00:00 [employer], Duration: 30 day, Stop date: 11/27/16 9:00:00 CDT ferrous No 325 mg, 1 [facility] sulfate 3-07 tab, l 15:00: Route: PO, Drug form: ECTAB, Daily, Dosing Weight 64.545, kg, Start date: 10/29/16 9:00:00 [employer], Duration: 30 day, Stop date: 11/27/16 9:00:00 CDT Vitamin D3 No Notes: [facility] 3-07 Same as: l 15:00: Vitamin D3 Aspirin No Notes: Do [facility] 3-07 not crush l 15:00: or chew. [place] 00 (Same As: Ecotrin) Sertraline No Notes: [facility] 3-07 (Same as: l 15:00: Zoloft) Ramipril No Notes: [facility] 3-07 (Same l 15:00: as:Altace) aspirin 81 No Notes: Do Me moria mg tablet, 3-07 not crush l enteric 15:00: or chew. [place] coated 00 (Same As: Ecotrin) clopidogrel No 75 mg, Arturo sony 3-07 Route: PO, l 15:00: Drug form: [place] 00 TAB, Daily, Dosing Weight 64.545, kg, Start date: 10/29/16 9:00:00 [employer], Duration: 30 day, Stop date: 11/27/16 9:00:00 CDT Magnesium No Notes: [facility] a Oxide 3-07 (Same as: l 15:00: Mag-Ox [place] 400) Magnesium oxide 830tc=192c g elemental magnesium Dose=____m g magnesium oxide (___mg elemental magnesium) Folic Acid No 0.8 mg, 2 Me moria 3-07 tab, l 15:00: Route: PO, [place] 00 Drug form: TAB, Daily, Dosing Weight 64.545, kg, Start date: 10/29/16 9:00:00 [employer], Duration: 30 day, Stop date: 11/27/16 9:00:00 CDT ferrous No 325 mg, 1 [facility] sulfate 3-07 tab, l 15:00: Route: PO, Drug form: ECTAB, Daily, Dosing Weight 64.545, kg, Start date: 10/29/16 9:00:00 [employer], Duration: 30 day, Stop date: 11/27/16 9:00:00 CDT Vitamin D3 No Notes: [facility] 3-07 Same as: l 15:00: Vitamin D3 Aspirin No Notes: Do [facility] -07 not crush l 15:00: or chew. [place] 00 (Same As: Ecotrin) Sertraline No Notes: [facility] -07 (Same as: l 15:00: Zoloft) Ramipril No Notes: [facility] 3-07 (Same l 15:00: as:Altace) aspirin 81 No Notes: Do Me moria mg tablet, 10-29 not crush l enteric 15:00: or chew. [place] coated (Same As: Ecotrin) clopidogrel No 75 mg, Arturo sony 10-29 Route: PO, l 15:00: Drug form: [place] TAB, Daily, Dosing Weight 64.545, kg, Start date: 10/29/16 9:00:00 [employer], Duration: 30 day, Stop date: 11/27/16 9:00:00 CDT Magnesium No Notes: [facility] a Oxide 10-29 (Same as: l 15:00: Mag-Ox 400) Magnesium oxide 346si=026d g elemental magnesium Dose=____m g magnesium oxide (___mg elemental magnesium) Folic Acid No 0.8 mg, 2 Me moria 3-07 tab, l 15:00: Route: PO, Drug form: TAB, Daily, Dosing Weight 64.545, kg, Start date: 10/29/16 9:00:00 [employer], Duration: 30 day, Stop date: 11/27/16 9:00:00 CDT ferrous 2017-0 No 325 mg, 1 [facility] sulfate 3-07 tab, l 15:00: Route: PO, Drug form: ECTAB, Daily, Dosing Weight 64.545, kg, Start date: 10/29/16 9:00:00 [employer], Duration: 30 day, Stop date: 11/27/16 [...] l enteric 15:00: or chew. [place] 00 (Same As: Ecotrin) clopidogrel No 75 mg, Arturo sony 10-29 Route: PO, l 15:00: Drug form: TAB, Daily, Dosing Weight 64.545, kg, Start date: 10/29/16 9:00:00 [employer], Duration: 30 day, Stop date: 11/27/16 9:00:00 CDT Magnesium No Notes: [facility] a Oxide 10-29 (Same as: l 15:00: Mag-Ox 400) Magnesium oxide 162jd=393h g elemental magnesium Dose=____m g magnesium oxide (___mg elemental magnesium) Folic Acid No 0.8 mg, 2 Me moria 3-07 tab, l 15:00: Route: PO, Drug form: TAB, Daily, Dosing Weight 64.545, kg, Start date: 10/29/16 9:00:00 [employer], Duration: 30 day, Stop date: 11/27/16 9:00:00 CDT ferrous No 325 mg, 1 [facility] sulfate 3-07 tab, l 15:00: Route: PO, [place] 00 Drug form: ECTAB, Daily, Dosing Weight 64.545, kg, Start date: 10/29/16 9:00:00 [employer], Duration: 30 day, Stop date: 11/27/16 9:00:00 CDT Vitamin D3 No Notes: [facility] 3-07 Same as: l 15:00: Vitamin D3 Aspirin No Notes: Do [facility] 3-07 not crush l 15:00: or chew. [place] 00 (Same As: Ecotrin) Sertraline No Notes: [facility] 3-07 (Same as: l 15:00: Zoloft) Ramipril No Notes: [facility] 3-07 (Same l 15:00: as:Altace) aspirin 81 No Notes: Do Me moria mg tablet, 3-07 not crush l enteric 15:00: or chew. [place] coated 00 (Same As: Ecotrin) clopidogrel No 75 mg, Arturo sony 3-07 Route: PO, l 15:00: Drug form: [place] 00 TAB, Daily, Dosing Weight 64.545, kg, Start date: 10/29/16 9:00:00 [employer], Duration: 30 day, Stop date: 11/27/16 9:00:00 CDT Magnesium No Notes: [facility] a Oxide 10-29 (Same as: l 15:00: Mag-Ox 400) Magnesium oxide 850jy=360c g elemental magnesium Dose=____m g magnesium oxide (___mg elemental magnesium) Folic Acid No 0.8 mg, 2 Me moria 3-07 tab, l 15:00: Route: PO, [place] 00 Drug form: TAB, Daily, Dosing Weight 64.545, kg, Start date: 10/29/16 9:00:00 [employer], Duration: 30 day, Stop date: 11/27/16 9:00:00 CDT ferrous No 325 mg, 1 [facility] sulfate 3-07 tab, l 15:00: Route: PO, Drug form: ECTAB, Daily, Dosing Weight 64.545, kg, Start date: 10/29/16 9:00:00 [employer], Duration: 30 day, Stop date: 11/27/16 9:00:00 CDT Vitamin D3 No Notes: [facility] 3-07 Same as: l 15:00: Vitamin D3 Aspirin No Notes: Do [facility] 3-07 not crush l 15:00: or chew. [place] 00 (Same As: Ecotrin) Sertraline No Notes: [facility] 3-07 (Same as: l 15:00: Zoloft) Ramipril No Notes: [facility] 3-07 (Same l 15:00: as:Altace) aspirin 81 No Notes: Do Me moria mg tablet, -07 not crush l enteric 15:00: or chew. [place] coated (Same As: Ecotrin) clopidogrel No 75 mg, Arturo sony 07 Route: PO, l 15:00: Drug form: [place] 00 TAB, Daily, Dosing Weight 64.545, kg, Start date: 10/29/16 9:00:00 [employer], Duration: 30 day, Stop date: 11/27/16 9:00:00 CDT Magnesium No Notes: [facility] a Oxide 10-29 (Same as: l 15:00: Mag-Ox 400) Magnesium oxide 546vx=876y g elemental magnesium Dose=____m g magnesium oxide (___mg elemental magnesium) Folic Acid No 0.8 mg, 2 Me moria 3-07 tab, l 15:00: Route: PO, Drug form: TAB, Daily, Dosing Weight 64.545, kg, Start date: 10/29/16 9:00:00 [employer], Duration: 30 day, Stop date: 11/27/16 9:00:00 CDT ferrous No 325 mg, 1 [facility] sulfate 3-07 tab, l 15:00: Route: PO, Drug form: ECTAB, Daily, Dosing Weight 64.545, kg, Start date: 10/29/16 9:00:00 [employer], Duration: 30 day, Stop date: 11/27/16 9:00:00 CDT Vitamin D3 No Notes: [facility] 3- Same as: l 15:00: Vitamin D3 Aspirin No Notes: Do [facility] 3- not crush l 15:00: or chew. (Same As: Ecotrin) Sertraline No Notes: [facility] - (Same as: l 15:00: Zoloft) Ramipril No Notes: [facility] 10-29 (Same l 15:00: as:Altace) aspirin 81 No Notes: Do Me moria mg tablet, 10-29 not crush l enteric 15:00: or chew. [place] (Same As: Ecotrin) clopidogrel No 75 mg, Arturo sony 10-29 Route: PO, l 15:00: Drug form: TAB, Daily, Dosing Weight 64.545, kg, Start date: 10/29/16 9:00:00 [employer], Duration: 30 day, Stop date: 11/27/16 9:00:00 CDT Magnesium No Notes: [facility] a Oxide 10-29 (Same as: l 15:00: Mag-Ox 400) Magnesium oxide 250rd=449e g elemental magnesium Dose=____m g magnesium oxide (___mg elemental magnesium) Folic Acid No 0.8 mg, 2 Me moria - tab, l 15:00: Route: PO, Drug form: TAB, Daily, Dosing Weight 64.545, kg, Start date: 10/29/16 9:00:00 [employer], Duration: 30 day, Stop date: 11/27/16 9:00:00 CDT ferrous No 325 mg, 1 [facility] sulfate - tab, l 15:00: Route: PO, Drug form: ECTAB, Daily, Dosing Weight 64.545, kg, Start date: 10/29/16 9:00:00 [employer], Duration: 30 day, Stop date: 11/27/16 9:00:00 CDT Vitamin D3 No Notes: [facility] 3-07 Same as: l 15:00: Vitamin D3 Aspirin No Notes: Do [facility] 3-07 not crush l 15:00: or chew. [place] (Same As: Ecotrin) Sertraline No Notes: [facility] 3-07 (Same as: l 15:00: Zoloft) Ramipril No Notes: [facility] 3-07 (Same l 15:00: as:Altace) aspirin 81 No Notes: Do Me moria mg tablet, 3-07 not crush l enteric 15:00: or chew. [place] (Same As: Ecotrin) clopidogrel No 75 mg, Arturo sony 10-29 Route: PO, l 15:00: Drug form: TAB, Daily, Dosing Weight 64.545, kg, Start date: 10/29/16 9:00:00 [employer], Duration: 30 day, Stop date: 11/27/16 9:00:00 CDT Magnesium No Notes: [facility] a Oxide 10-29 (Same as: l 15:00: Mag-Ox 400) Magnesium oxide 637fg=946c g elemental magnesium Dose=____m g magnesium oxide (___mg elemental magnesium) Folic Acid No 0.8 mg, 2 Me moria 3-07 tab, l 15:00: Route: PO, Drug form: TAB, Daily, Dosing Weight 64.545, kg, Start date: 10/29/16 9:00:00 [employer], Duration: 30 day, Stop date: 11/27/16 9:00:00 CDT ferrous No 325 mg, 1 [facility] sulfate 3-07 tab, l 15:00: Route: PO, Drug form: ECTAB, Daily, Dosing Weight 64.545, kg, Start date: 10/29/16 9:00:00 [employer], Duration: 30 day, Stop date: 11/27/16 9:00:00 CDT Vitamin D3 No Notes: [facility] 3-07 Same as: l 15:00: Vitamin D3 Aspirin No Notes: Do [facility] 3-07 not crush l 15:00: or chew. [place] 00 (Same As: Ecotrin) Sertraline No Notes: [facility] 3- (Same as: l 15:00: Zoloft) Ramipril No Notes: [facility] 3-07 (Same l 15:00: as:Altace) aspirin 81 No Notes: Do Me moria mg tablet, 10-29 not crush l enteric 15:00: or chew. [place] coated 00 (Same As: Ecotrin) clopidogrel No 75 mg, Arturo sony 10-29 Route: PO, l 15:00: Drug form: [place] 00 TAB, Daily, Dosing Weight 64.545, kg, Start date: 10/29/16 9:00:00 [employer], Duration: 30 day, Stop date: 11/27/16 9:00:00 CDT Magnesium No Notes: [facility] a Oxide 10-29 (Same as: l 15:00: Mag-Ox 400) Magnesium oxide 818kw=254n g elemental magnesium Dose=____m g magnesium oxide (___mg elemental magnesium) Folic Acid No 0.8 mg, 2 Me moria - tab, l 15:00: Route: PO, Drug form: TAB, Daily, Dosing Weight 64.545, kg, Start date: 10/29/16 9:00:00 [employer], Duration: 30 day, Stop date: 11/27/16 9:00:00 CDT ferrous No 325 mg, 1 [facility] sulfate - tab, l 15:00: Route: PO, Drug form: ECTAB, Daily, Dosing Weight 64.545, kg, Start date: 10/29/16 9:00:00 [employer], Duration: 30 day, Stop date: 11/27/16 9:00:00 CDT Vitamin D3 No Notes: [facility] 3-07 Same as: l 15:00: Vitamin D3 Aspirin No Notes: Do [facility] 3-07 not crush l 15:00: or chew. [place] 00 (Same As: Ecotrin) Sertraline No Notes: [facility] 3-07 (Same as: l 15:00: Zoloft) Ramipril No Notes: [facility] 3-07 (Same l 15:00: as:Altace) aspirin 81 No Notes: Do Me moria mg tablet, 3-07 not crush l enteric 15:00: or chew. [place] (Same As: Ecotrin) clopidogrel No 75 mg, Arturo sony 3- Route: PO, l 15:00: Drug form: TAB, Daily, Dosing Weight 64.545, kg, Start date: 10/29/16 9:00:00 [employer], Duration: 30 day, Stop date: 11/27/16 9:00:00 CDT Magnesium No Notes: [facility] a Oxide 10-29 (Same as: l 15:00: Mag-Ox 400) Magnesium oxide 859mi=750f g elemental magnesium Dose=____m g magnesium oxide (___mg elemental magnesium) Folic Acid No 0.8 mg, 2 Me moria 3-07 tab, l 15:00: Route: PO, Drug form: TAB, Daily, Dosing Weight 64.545, kg, Start date: 10/29/16 9:00:00 [employer], Duration: 30 day, Stop date: 11/27/16 9:00:00 CDT ferrous No 325 mg, 1 [facility] sulfate 3-07 tab, l 15:00: Route: PO, Drug form: ECTAB, Daily, Dosing Weight 64.545, kg, Start date: 10/29/16 9:00:00 [employer], Duration: 30 day, Stop date: 11/27/16 9:00:00 CDT Vitamin D3 No Notes: [facility] 3-07 Same as: l 15:00: Vitamin D3 Aspirin No Notes: Do [facility] 3-07 not crush l 15:00: or chew. [place] (Same As: Ecotrin) Sertraline No Notes: [facility] 3-07 (Same as: l 15:00: Zoloft) Ramipril No Notes: [facility] 3-07 (Same l 15:00: as:Altace) aspirin 81 No Notes: Do Me moria mg tablet, 3-07 not crush l enteric 15:00: or chew. [place] coated (Same As: Ecotrin) clopidogrel No 75 mg, Arturo sony 3-07 Route: PO, l 15:00: Drug form: [place] 00 TAB, Daily, Dosing Weight 64.545, kg, Start date: 10/29/16 9:00:00 [employer], Duration: 30 day, Stop date: 11/27/16 9:00:00 CDT Magnesium No Notes: [facility] a Oxide 10-29 (Same as: l 15:00: Mag-Ox 400) Magnesium oxide 063gf=548t g elemental magnesium Dose=____m g magnesium oxide (___mg elemental magnesium) Folic Acid No 0.8 mg, 2 Me moria -07 tab, l 15:00: Route: PO, Drug form: TAB, Daily, Dosing Weight 64.545, kg, Start date: 10/29/16 9:00:00 [employer], Duration: 30 day, Stop date: 11/27/16 9:00:00 CDT ferrous No 325 mg, 1 [facility] sulfate - tab, l 15:00: Route: PO, Drug form: ECTAB, Daily, Dosing Weight 64.545, kg, Start date: 10/29/16 9:00:00 [employer], Duration: 30 day, Stop date: 11/27/16 9:00:00 CDT Vitamin D3 No Notes: [facility] 3-07 Same as: l 15:00: Vitamin D3 Aspirin No Notes: Do [facility] 3-07 not crush l 15:00: or chew. [place] (Same As: Ecotrin) Sertraline No Notes: [facility] 3-07 (Same as: l 15:00: Zoloft) Ramipril No Notes: [facility] 3-07 (Same l 15:00: as:Altace) Synthroid 2017-0 No 75 [facility] 3-07 microgram, l 12:30: 1 tab, Route: PO, Drug form: TAB, Q630AM, Dosing Weight 64.545, kg, Start date: 10/29/16 6:30:00 [employer], Duration: 30 day, Stop date: 11/27/16 6:30:00 CDT Synthroid 2017-0 No 75 [facility] 3-07 microgram, l 12:30: 1 tab, Route: PO, Drug form: TAB, Q630AM, Dosing Weight 64.545, kg, Start date: 10/29/16 6:30:00 [employer], Duration: 30 day, Stop date: 11/27/16 6:30:00 CDT Synthroid 2017-0 No 75 [facility] 3-07 microgram, l 12:30: 1 tab, Route: PO, Drug form: TAB, Q630AM, Dosing Weight 64.545, kg, Start date: 10/29/16 6:30:00 [employer], Duration: 30 day, Stop date: 11/27/16 6:30:00 CDT Synthroid 2017-0 No 75 [facility] 3-07 microgram, l 12:30: 1 tab, Route: PO, Drug form: TAB, Q630AM, Dosing Weight 64.545, kg, Start date: 10/29/16 6:30:00 [employer], Duration: 30 day, Stop date: 11/27/16 6:30:00 CDT Synthroid 2017-0 No 75 [facility] 3-07 microgram, l 12:30: 1 tab, Route: PO, Drug form: TAB, Q630AM, Dosing Weight 64.545, kg, Start date: 10/29/16 6:30:00 [employer], Duration: 30 day, Stop date: 11/27/16 6:30:00 CDT Synthroid 2017-0 No 75 [facility] 3-07 microgram, l 12:30: 1 tab, Route: PO, Drug form: TAB, Q630AM, Dosing Weight 64.545, kg, Start date: 10/29/16 6:30:00 [employer], Duration: 30 day, Stop date: 11/27/16 6:30:00 CDT Synthroid 2017-0 No 75 [facility] 3-07 microgram, l 12:30: 1 tab, [place] 00 Route: PO, Drug form: TAB, Q630AM, Dosing Weight 64.545, kg, Start date: 10/29/16 6:30:00 [employer], Duration: 30 day, Stop date: 11/27/16 6:30:00 CDT Synthroid 2017-0 No 75 [facility] 3-07 microgram, l 12:30: 1 tab, [place] 00 Route: PO, Drug form: TAB, Q630AM, Dosing Weight 64.545, kg, Start date: 10/29/16 6:30:00 [employer], Duration: 30 day, Stop date: 11/27/16 6:30:00 CDT Synthroid 2017-0 No 75 [facility] 3-07 microgram, l 12:30: 1 tab, Route: PO, Drug form: TAB, Q630AM, Dosing Weight 64.545, kg, Start date: 10/29/16 6:30:00 [employer], Duration: 30 day, Stop date: 11/27/16 6:30:00 CDT Synthroid 2017-0 No 75 [facility] 3-07 microgram, l 12:30: 1 tab, Route: PO, Drug form: TAB, Q630AM, Dosing Weight 64.545, kg, Start date: 10/29/16 6:30:00 [employer], Duration: 30 day, Stop date: 11/27/16 6:30:00 CDT Synthroid 2017-0 No 75 [facility] 3-07 microgram, l 12:30: 1 tab, Route: PO, Drug form: TAB, Q630AM, Dosing Weight 64.545, kg, Start date: 10/29/16 6:30:00 [employer], Duration: 30 day, Stop date: 11/27/16 6:30:00 CDT Synthroid 2017-0 No 75 [facility] 3-07 microgram, l 12:30: 1 tab, [place] 00 Route: PO, Drug form: TAB, Q630AM, Dosing Weight 64.545, kg, Start date: 10/29/16 6:30:00 [employer], Duration: 30 day, Stop date: 11/27/16 6:30:00 CDT Ticagrelor 2017-0 No Notes: [facility] 3-07 (Same as: l 12:00: Brilinta) [place] 00 Ticagrelor 2017-0 No Notes: [facility] 3-07 (Same as: l 12:00: Brilinta) [place] 00 Ticagrelor 2017-0 No Notes: [facility] 3-07 (Same as: l 12:00: Brilinta) [place] 00 Ticagrelor 2017-0 No Notes: [facility] 3-07 (Same as: l 12:00: Brilinta) [place] 00 Ticagrelor 2017-0 No Notes: [facility] 3-07 (Same as: l 12:00: Brilinta) [place] 00 Ticagrelor 2017-0 No Notes: [facility] 3-07 (Same as: l 12:00: Brilinta) [place] 00 Ticagrelor 2017-0 No Notes: [facility] 3-07 (Same as: l 12:00: Brilinta) [place] Ticagrelor 2017-0 No Notes: [facility] 3-07 (Same as: l 12:00: Brilinta) [place] 00 Ticagrelor 2017-0 No Notes: [facility] 3-07 (Same as: l 12:00: Brilinta) [place] 00 Ticagrelor 2017-0 No Notes: [facility] 3-07 (Same as: l 12:00: Brilinta) [place] 00 Ticagrelor 2017-0 No Notes: [facility] 3-07 (Same as: l 12:00: Brilinta) [place] 00 Ticagrelor 2017-0 No Notes: [facility] 3-07 (Same as: l 12:00: Brilinta) [place] 00 ticagrelor 2017-0 No Notes: [facility] 3-07 (Same as: l 04:00: Brilinta) [place] 00 ticagrelor 2017-0 No Notes: [facility] 3-07 (Same as: l 04:00: Brilinta) [place] 00 ticagrelor 2017-0 No Notes: [facility] 3-07 (Same as: l 04:00: Brilinta) [place] 00 ticagrelor 2017-0 No Notes: [facility] 3-07 (Same as: l 04:00: Brilinta) [place] 00 ticagrelor 2017-0 No Notes: [facility] 3-07 (Same as: l 04:00: Brilinta) [place] ticagrelor 2016-0 No Notes: [facility] 3-07 (Same as: l 04:00: Brilinta) [place] ticagrelor 2016-0 No Notes: [facility] 3-07 (Same as: l 04:00: Brilinta) [place] ticagrelor 2016-0 No Notes: [facility] 3-07 (Same as: l 04:00: Brilinta) [place] ticagrelor 0 No Notes: [facility] 3-07 (Same as: l 04:00: Brilinta) [place] ticagrelor 2016-0 No Notes: [facility] 3-07 (Same as: l 04:00: Brilinta) [place] 00 ticagrelor No Notes: [facility] 3-07 (Same as: l 04:00: Brilinta) [place] 00 ticagrelor No Notes: [facility] 3-07 (Same as: l 04:00: Brilinta) [place] 00 Saline No Notes: [facility] Flush 0.9% 3-07 (Same as: l 03:00: BD [place] 00 Posiflush) Brilinta 0 No 60 mg, [facility] 3-07 Route: PO, l 03:00: Drug form: [place] 00 TAB, Q12H, Dosing Weight 64.545, kg, Start date: 10/28/16 21:00:00 [employer], Duration: 30 day, Stop date: 11/27/16 9:00:00 CDT Saline 0 No Notes: [facility] Flush 0.9% 3-07 (Same as: l 03:00: BD [place] 00 Posiflush) Brilinta 0 No 60 mg, [facility] 3-07 Route: PO, l 03:00: Drug form: Kevin 00 TAB, Q12H, Dosing Weight 64.545, kg, Start date: 10/28/16 21:00:00 [employer], Duration: 30 day, Stop date: 11/27/16 9:00:00 CDT Saline 0 No Notes: [facility] Flush 0.9% 3-07 (Same as: l 03:00: BD [place] 00 Posiflush) Brilinta 2017-0 No 60 mg, Memoria 3-07 Route: PO, l 03:00: Drug form: Kevin 00 TAB, Q12H, Dosing Weight 64.545, kg, Start date: 10/28/16 21:00:00 [employer], Duration: 30 day, Stop date: 11/27/16 9:00:00 CDT Saline 2017-0 No Notes: [facility] Flush 0.9% 3-07 (Same as: l 03:00: BD [place] 00 Posiflush) Brilinta 2016-0 No 60 mg, [facility]oria 3-07 Route: PO, l 03:00: Drug form: [place] 00 TAB, Q12H, Dosing Weight 64.545, kg, Start date: 10/28/16 21:00:00 [employer], Duration: 30 day, Stop date: 11/27/16 9:00:00 CDT Saline 2017-0 No Notes: [facility] Flush 0.9% 3-07 (Same as: l 03:00: BD [place] 00 Posiflush) Brilinta 2016-0 No 60 mg, Memoria 3-07 Route: PO, l 03:00: Drug form: Kevin 00 TAB, Q12H, Dosing Weight 64.545, kg, Start date: 10/28/16 21:00:00 [employer], Duration: 30 day, Stop date: 11/27/16 9:00:00 CDT Saline 2017-0 No Notes: [facility] Flush 0.9% 3-07 (Same as: l 03:00: BD [place] 00 Posiflush) Brilinta 2016-0 No 60 mg, [facility] 3-07 Route: PO, l 03:00: Drug form: [place] 00 TAB, Q12H, Dosing Weight 64.545, kg, Start date: 10/28/16 21:00:00 [employer], Duration: 30 day, Stop date: 11/27/16 9:00:00 CDT Saline 2017-0 No Notes: [facility] Flush 0.9% 3-07 (Same as: l 03:00: BD [place] 00 Posiflush) Brilinta 2017-0 No 60 mg, [facility]oria 3-07 Route: PO, l 03:00: Drug form: [place] 00 TAB, Q12H, Dosing Weight 64.545, kg, Start date: 10/28/16 21:00:00 [employer], Duration: 30 day, Stop date: 11/27/16 9:00:00 CDT Saline 2017-0 No Notes: [facility] Flush 0.9% 3-07 (Same as: l 03:00: BD [place] 00 Posiflush) Brilinta 2017-0 No 60 mg, [facility]oria 3-07 Route: PO, l 03:00: Drug form: [place] 00 TAB, Q12H, Dosing Weight 64.545, kg, Start date: 10/28/16 21:00:00 [employer], Duration: 30 day, Stop date: 11/27/16 9:00:00 CDT Saline 2017-0 No Notes: [facility] Flush 0.9% 3-07 (Same as: l 03:00: BD [place] 00 Posiflush) Brilinta 2017-0 No 60 mg, [facility] 3-07 Route: PO, l 03:00: Drug form: [place] 00 TAB, Q12H, Dosing Weight 64.545, kg, Start date: 10/28/16 21:00:00 [employer], Duration: 30 day, Stop date: 11/27/16 9:00:00 CDT Saline 2017-0 No Notes: [facility] Flush 0.9% 3-07 (Same as: l 03:00: BD Kevin 00 Posiflush) Brilinta 2017-0 No 60 mg, Memoria 3-07 Route: PO, l 03:00: Drug form: [place] 00 TAB, Q12H, Dosing Weight 64.545, kg, Start date: 10/28/16 21:00:00 [employer], Duration: 30 day, Stop date: 11/27/16 9:00:00 CDT Saline 2017-0 No Notes: Memoria Flush 0.9% 3-07 (Same as: l 03:00: BD Kevin 00 Posiflush) Brilinta 2017-0 No 60 mg, Memoria 3-07 Route: PO, l 03:00: Drug form: [place] 00 TAB, Q12H, Dosing Weight 64.545, kg, Start date: 10/28/16 21:00:00 [employer], Duration: 30 day, Stop date: 11/27/16 9:00:00 CDT Saline No Notes: Memoria Flush 0.9% -07 (Same as: l 03:00: BD Kevin Posiflush) Brilinta No 60 mg, Memoria 3-07 Route: PO, l 03:00: Drug form: [place] TAB, Q12H, Dosing Weight 64.545, kg, Start date: 10/28/16 21:00:00 [employer], Duration: 30 day, Stop date: 11/27/16 9:00:00 CDT Phenergan No Notes: Do Mem oria 3-07 not give l 01:52: IV push. [place] (Same as: Phenergan) Phenergan No Notes: Do Mem oria 3-07 not give l 01:52: IV push. Kevin (Same as: Phenergan) Phenergan No Notes: Do Mem oria 3-07 not give l 01:52: IV push. [place] (Same as: Phenergan) Phenergan No Notes: Do Mem oria 3-07 not give l 01:52: IV push. [place] (Same as: Phenergan) Phenergan No Notes: Do Mem oria 3-07 not give l 01:52: IV push. Kevin (Same as: Phenergan) Phenergan No Notes: Do Mem oria 3-07 not give l 01:52: IV push. [place] (Same as: Phenergan) Phenergan No Notes: Do Mem oria 3-07 not give l 01:52: IV push. [place] (Same as: Phenergan) Phenergan No Notes: Do Mem oria 3-07 not give l 01:52: IV push. Kevin 00 (Same as: Phenergan) Phenergan No Notes: Do Mem oria 3-07 not give l 01:52: IV push. Kevin 00 (Same as: Phenergan) Phenergan No Notes: Do Mem oria 3-07 not give l 01:52: IV push. Kevin 00 (Same as: Phenergan) Phenergan 2016-0 No Notes: Do Mem oria 3-07 not give l 01:52: IV push. Kevin 00 (Same as: Phenergan) Phenergan 2016-0 No Notes: Do Mem oria 3-07 not give l 01:52: IV push. Kevin 00 (Same as: Phenergan) Hydralazine 2016- No Notes: Arturo sony 3-07 (Same as: l 00:36: Apresoline [place] 00 ) Push over 5 minutes Hydralazine 0 No Notes: Arturo sony 3-07 (Same as: l 00:36: Apresoline [place] 00 ) Push over 5 minutes Hydralazine No Notes: Arturo sony 3-07 (Same as: l 00:36: Apresoline Kevin 00 ) Push over 5 minutes Hydralazine No Notes: Arturo sony 3-07 (Same as: l 00:36: Apresoline [place] 00 ) Push over 5 minutes Hydralazine No Notes: Arturo sony 3-07 (Same as: l 00:36: Apresoline Kevin 00 ) Push over 5 minutes Hydralazine 0 No Notes: Arturo sony 3-07 (Same as: l 00:36: Apresoline [place] 00 ) Push over 5 minutes Hydralazine 0 No Notes: Arturo sony 3-07 (Same as: l 00:36: Apresoline Kevin 00 ) Push over 5 minutes Hydralazine 0 No Notes: Arturo sony 3-07 (Same as: l 00:36: Apresoline [place] 00 ) Push over 5 minutes Hydralazine 0 No Notes: Arturo sony 3-07 (Same as: l 00:36: Apresoline [place] 00 ) Push over 5 minutes Hydralazine 0 No Notes: Arturo sony 3-07 (Same as: l 00:36: Apresoline [place] 00 ) Push over 5 minutes Hydralazine 2016-0 No Notes: Arturo sony 3-07 (Same as: l 00:36: Apresoline Kevin 00 ) Push over 5 minutes Hydralazine 0 No Notes: Arturo sony 3-07 (Same as: l 00:36: Apresoline Kevin 00 ) Push over 5 minutes Saline No Notes: Memoria Flush 0.9% - (Same as: l 23:59: BD [place] 00 Posiflush) clopidogrel 0 No 300 mg, Mem oria 10-28 Route: PO, l 23:59: Drug form: Kevin 00 TAB, ONCE, Dosing Weight 64.545, kg, Priority: NOW, Start date: 10/28/16 17:59:00 [employer], Stop date: 10/28/16 17:59:00 [employer] Nitroglycer No Notes: Arturo sony in 10-28 (Same l 23:59: as:Nitroqu Kevin 00 ick, Nitrostat) "Do Not Crush" Sublingual tablet Acetaminoph No Notes: Do M emoria en 10-28 not exceed l 23:59: 4 gm/day. Kevin 00 (Same as: Tylenol) Sodium No 25 mL, Memoria Chloride 10-28 Rate: 20 l 0.154 23:59: ml/hr, [place] MEQ/ML 00 Infuse Injectable over: 1.3 Solution hr, Route: IV, Dosing Weight 64.545 kg, Total Volume: 25, Start date: 10/28/16 17:59:00 [employer], Duration: 24 hr, Stop date: 10/29/16 17:58:00 [employer] Saline No Notes: Memoria Flush 0.9% - (Same as: l 23:59: BD Kevin 00 Posiflush) clopidogrel No 300 mg, Mem oria 10-28 Route: PO, l 23:59: Drug form: [place] 00 TAB, ONCE, Dosing Weight 64.545, kg, Priority: NOW, Start date: 10/28/16 17:59:00 [employer], Stop date: 10/28/16 17:59:00 [employer] Nitroglycer 0 No Notes: Arturo sony in 10-28 (Same l 23:59: as:Nitroqu Kevin 00 ick, Nitrostat) "Do Not Crush" Sublingual tablet Acetaminoph No Notes: Do M emoria en 10-28 not exceed l 23:59: 4 gm/day. Kevin 00 (Same as: Tylenol) Sodium No 25 mL, Memoria Chloride 10-28 Rate: 20 l 0.154 23:59: ml/hr, [place] MEQ/ML 00 Infuse Injectable over: 1.3 Solution hr, Route: IV, Dosing Weight 64.545 kg, Total Volume: 25, Start date: 10/28/16 17:59:00 [employer], Duration: 24 hr, Stop date: 10/29/16 17:58:00 [employer] Saline No Notes: Memoria Flush 0.9% 10-28 (Same as: l 23:59: BD Kevin 00 Posiflush) clopidogrel No 300 mg, Mem oria 10-28 Route: PO, l 23:59: Drug form: [place] 00 TAB, ONCE, Dosing Weight 64.545, kg, Priority: NOW, Start date: 10/28/16 17:59:00 [employer], Stop date: 10/28/16 17:59:00 [employer] Nitroglycer No Notes: Arturo sony in 10-28 (Same l 23:59: as:Nitroqu [place] 00 ick, Nitrostat) "Do Not Crush" Sublingual tablet Acetaminoph No Notes: Do M emoria en 10-28 not exceed l 23:59: 4 gm/day. Kevin 00 (Same as: Tylenol) Sodium No 25 mL, Mem[facility] Chloride 10-28 Rate: 20 l 0.154 23:59: ml/hr, [place] MEQ/ML 00 Infuse Injectable over: 1.3 Solution hr, Route: IV, Dosing Weight 64.545 kg, Total Volume: 25, Start date: 10/28/16 17:59:00 [employer], Duration: 24 hr, Stop date: 10/29/16 17:58:00 [employer] Saline No Notes: [facility] Flush 0.9% 10-28 (Same as: l 23:59: BD [place] 00 Posiflush) clopidogrel No 300 mg, Mem oria 10-28 Route: PO, l 23:59: Drug form: [place] 00 TAB, ONCE, Dosing Weight 64.545, kg, Priority: NOW, Start date: 10/28/16 17:59:00 [employer], Stop date: 10/28/16 17:59:00 [employer] Nitroglycer No Notes: Arturo sony in 10-28 (Same l 23:59: as:Nitroqu Kevin 00 ick, Nitrostat) "Do Not Crush" Sublingual tablet Acetaminoph No Notes: Do M emoria en 10-28 not exceed l 23:59: 4 gm/day. [place] 00 (Same as: Tylenol) Sodium No 25 mL, [facility] Chloride 10-28 Rate: 20 l 0.154 23:59: ml/hr, Kevin MEQ/ML 00 Infuse Injectable over: 1.3 Solution hr, Route: IV, Dosing Weight 64.545 kg, Total Volume: 25, Start date: 10/28/16 17:59:00 [employer], Duration: 24 hr, Stop date: 10/29/16 17:58:00 [employer] Saline No Notes: [facility] Flush 0.9% 10-28 (Same as: l 23:59: BD [place] 00 Posiflush) clopidogrel No 300 mg, Mem oria 10-28 Route: PO, l 23:59: Drug form: Kevin 00 TAB, ONCE, Dosing Weight 64.545, kg, Priority: NOW, Start date: 10/28/16 17:59:00 [employer], Stop date: 10/28/16 17:59:00 [employer] Nitroglycer No Notes: Arturo sony in 10-28 (Same l 23:59: as:Nitroqu [place] 00 ick, Nitrostat) "Do Not Crush" Sublingual tablet Acetaminoph No Notes: Do M emoria en 10-28 not exceed l 23:59: 4 gm/day. [place] 00 (Same as: Tylenol) Sodium No 25 mL, Mem[facility] Chloride 10-28 Rate: 20 l 0.154 23:59: ml/hr, Kevin MEQ/ML 00 Infuse Injectable over: 1.3 Solution hr, Route: IV, Dosing Weight 64.545 kg, Total Volume: 25, Start date: 10/28/16 17:59:00 [employer], Duration: 24 hr, Stop date: 10/29/16 17:58:00 [employer] Saline No Notes: [facility] Flush 0.9% 10-28 (Same as: l 23:59: BD Kevin 00 Posiflush) clopidogrel No 300 mg, Mem oria 10-28 Route: PO, l 23:59: Drug form: [place] 00 TAB, ONCE, Dosing Weight 64.545, kg, Priority: NOW, Start date: 10/28/16 17:59:00 [employer], Stop date: 10/28/16 17:59:00 [employer] Nitroglycer No Notes: Arturo sony in 10-28 (Same l 23:59: as:Nitroqu [place] 00 ick, Nitrostat) "Do Not Crush" Sublingual tablet Acetaminoph No Notes: Do M emoria en 10-28 not exceed l 23:59: 4 gm/day. Kevin 00 (Same as: Tylenol) Sodium No 25 mL, [facility] Chloride 10-28 Rate: 20 l 0.154 23:59: ml/hr, [place] MEQ/ML 00 Infuse Injectable over: 1.3 Solution hr, Route: IV, Dosing Weight 64.545 kg, Total Volume: 25, Start date: 10/28/16 17:59:00 [employer], Duration: 24 hr, Stop date: 10/29/16 17:58:00 [employer] Saline No Notes: [facility] Flush 0.9% 10-28 (Same as: l 23:59: BD [place] 00 Posiflush) clopidogrel No 300 mg, Mem oria 10-28 Route: PO, l 23:59: Drug form: Kevin 00 TAB, ONCE, Dosing Weight 64.545, kg, Priority: NOW, Start date: 10/28/16 17:59:00 [employer], Stop date: 10/28/16 17:59:00 [employer] Nitroglycer No Notes: Arturo sony in 10-28 (Same l 23:59: as:Nitroqu [place] 00 ick, Nitrostat) "Do Not Crush" Sublingual tablet Acetaminoph No Notes: Do M emoria en 10-28 not exceed l 23:59: 4 gm/day. Kevin 00 (Same as: Tylenol) Sodium No 25 mL, [facility] Chloride 10-28 Rate: 20 l 0.154 23:59: ml/hr, Kevin MEQ/ML 00 Infuse Injectable over: 1.3 Solution hr, Route: IV, Dosing Weight 64.545 kg, Total Volume: 25, Start date: 10/28/16 17:59:00 [employer], Duration: 24 hr, Stop date: 10/29/16 17:58:00 [employer] Saline No Notes: Memoria Flush 0.9% 10-28 (Same as: l 23:59: BD [place] 00 Posiflush) clopidogrel No 300 mg, Mem oria 10-28 Route: PO, l 23:59: Drug form: Kevin 00 TAB, ONCE, Dosing Weight 64.545, kg, Priority: NOW, Start date: 10/28/16 17:59:00 [employer], Stop date: 10/28/16 17:59:00 [employer] Nitroglycer No Notes: Arturo sony in 10-28 (Same l 23:59: as:Nitroqu [place] 00 ick, Nitrostat) "Do Not Crush" Sublingual tablet Acetaminoph No Notes: Do M jimyria en 10-28 not exceed l 23:59: 4 gm/day. [place] 00 (Same as: Tylenol) Sodium No 25 mL, Mem[facility] Chloride 10-28 Rate: 20 l 0.154 23:59: ml/hr, Kevin MEQ/ML 00 Infuse Injectable over: 1.3 Solution hr, Route: IV, Dosing Weight 64.545 kg, Total Volume: 25, Start date: 10/28/16 17:59:00 [employer], Duration: 24 hr, Stop date: 10/29/16 17:58:00 [employer] Saline No Notes: Memoria Flush 0.9% 10-28 (Same as: l 23:59: BD [place] 00 Posiflush) clopidogrel No 300 mg, Mem oria 10-28 Route: PO, l 23:59: Drug form: [place] 00 TAB, ONCE, Dosing Weight 64.545, kg, Priority: NOW, Start date: 10/28/16 17:59:00 [employer], Stop date: 10/28/16 17:59:00 [employer] Nitroglycer No Notes: Arturo sony in 10-28 (Same l 23:59: as:Nitroqu [place] 00 ick, Nitrostat) "Do Not Crush" Sublingual tablet Acetaminoph No Notes: Do Curtis anhria en 10-28 not exceed l 23:59: 4 gm/day. [place] 00 (Same as: Tylenol) Sodium No 25 mL, [facility] Chloride 10-28 Rate: 20 l 0.154 23:59: ml/hr, [place] MEQ/ML 00 Infuse Injectable over: 1.3 Solution hr, Route: IV, Dosing Weight 64.545 kg, Total Volume: 25, Start date: 10/28/16 17:59:00 [employer], Duration: 24 hr, Stop date: 10/29/16 17:58:00 [employer] Saline No Notes: [facility] Flush 0.9% 10-28 (Same as: l 23:59: BD Kevin 00 Posiflush) clopidogrel No 300 mg, Mem oria 10-28 Route: PO, l 23:59: Drug form: [place] 00 TAB, ONCE, Dosing Weight 64.545, kg, Priority: NOW, Start date: 10/28/16 17:59:00 [employer], Stop date: 10/28/16 17:59:00 [employer] Nitroglycer No Notes: Arturo sony in 10-28 (Same l 23:59: as:Nitroqu ick, Nitrostat) "Do Not Crush" Sublingual tablet Acetaminoph No Notes: Do Curtis ahnria en 10-28 not exceed l 23:59: 4 gm/day. Kevin 00 (Same as: Tylenol) Sodium No 25 mL, [facility] Chloride 10-28 Rate: 20 l 0.154 23:59: ml/hr, [place] MEQ/ML 00 Infuse Injectable over: 1.3 Solution hr, Route: IV, Dosing Weight 64.545 kg, Total Volume: 25, Start date: 10/28/16 17:59:00 [employer], Duration: 24 hr, Stop date: 10/29/16 17:58:00 [employer] Saline No Notes: [facility] Flush 0.9% 10-28 (Same as: l 23:59: BD Kevin 00 Posiflush) clopidogrel No 300 mg, Mem oria 10-28 Route: PO, l 23:59: Drug form: [place] 00 TAB, ONCE, Dosing Weight 64.545, kg, Priority: NOW, Start date: 10/28/16 17:59:00 [employer], Stop date: 10/28/16 17:59:00 [employer] Nitroglycer No Notes: Arturo sony in 10-28 (Same l 23:59: as:Nitroqu [place] 00 ick, Nitrostat) "Do Not Crush" Sublingual tablet Acetaminoph No Notes: Do M emoria en 10-28 not exceed l 23:59: 4 gm/day. [place] 00 (Same as: Tylenol) Sodium No 25 mL, Mem[facility] Chloride 10-28 Rate: 20 l 0.154 23:59: ml/hr, Kevin MEQ/ML 00 Infuse Injectable over: 1.3 Solution hr, Route: IV, Dosing Weight 64.545 kg, Total Volume: 25, Start date: 10/28/16 17:59:00 [employer], Duration: 24 hr, Stop date: 10/29/16 17:58:00 [employer] Saline No Notes: Mem[facility] Flush 0.9% 10-28 (Same as: l 23:59: BD Kevin 00 Posiflush) clopidogrel No 300 mg, Mem oria 10-28 Route: PO, l 23:59: Drug form: [place] 00 TAB, ONCE, Dosing Weight 64.545, kg, Priority: NOW, Start date: 10/28/16 17:59:00 [employer], Stop date: 10/28/16 17:59:00 [employer] Nitroglycer No Notes: Arturo sony in 10-28 (Same l 23:59: as:Nitroqu [place] 00 ick, Nitrostat) "Do Not Crush" Sublingual tablet Acetaminoph No Notes: Do M emoria en 10-28 not exceed l 23:59: 4 gm/day. Kevin 00 (Same as: Tylenol) Sodium No 25 mL, [facility] Chloride 10-28 Rate: 20 l 0.154 23:59: ml/hr, [place] MEQ/ML 00 Infuse Injectable over: 1.3 Solution hr, Route: IV, Dosing Weight 64.545 kg, Total Volume: 25, Start date: 10/28/16 17:59:00 [employer], Duration: 24 hr, Stop date: 10/29/16 17:58:00 [employer] Midodrine No 2.5 mg, Memor ia 3-06 Route: PO, l 23:00: Drug form: [place] 00 TAB, TID, Dosing Weight 64.545, kg, Start date: 10/28/16 17:00:00 [employer], Duration: 30 day, Stop date: 11/27/16 13:00:00 CDT oxybutynin 0 No Notes: Memor ia 3-06 Same as: l 23:00: Ditropan) Triamcinolo No Notes: Arturo sony ne 3-06 (Same As: l Acetonide 23:00: Kenalog) Herm angela 0.001 MG/MG 00 Topical Ointment Midodrine No 2.5 mg, Memor ia 3-06 Route: PO, l 23:00: Drug form: [place] 00 TAB, TID, Dosing Weight 64.545, kg, Start date: 10/28/16 17:00:00 [employer], Duration: 30 day, Stop date: 11/27/16 13:00:00 CDT oxybutynin No Notes: Memor ia 3-06 Same as: l 23:00: Ditropan) Triamcinolo No Notes: Arturo sony ne 3-06 (Same As: l Acetonide 23:00: Kenalog) Herm angela 0.001 MG/MG 00 Topical Ointment Midodrine No 2.5 mg, Memor ia 3-06 Route: PO, l 23:00: Drug form: [place] 00 TAB, TID, Dosing Weight 64.545, kg, Start date: 10/28/16 17:00:00 [employer], Duration: 30 day, Stop date: 11/27/16 13:00:00 CDT oxybutynin 0 No Notes: Memor ia 3-06 Same as: l 23:00: Ditropan) Triamcinolo No Notes: Arturo sony ne 3-06 (Same As: l Acetonide 23:00: Kenalog) Herm angela 0.001 MG/MG 00 Topical Ointment Midodrine 2017-0 No 2.5 mg, Memor ia 3-06 Route: PO, l 23:00: Drug form: [place] 00 TAB, TID, Dosing Weight 64.545, kg, Start date: 10/28/16 17:00:00 [employer], Duration: 30 day, Stop date: 11/27/16 13:00:00 CDT oxybutynin No Notes: Memor ia 3-06 Same as: l 23:00: Ditropan) [place] 00 Triamcinolo No Notes: Arturo sony ne 3-06 (Same As: l Acetonide 23:00: Kenalog) Herm angela 0.001 MG/MG 00 Topical Ointment Midodrine No 2.5 mg, Memor ia 3-06 Route: PO, l 23:00: Drug form: [place] 00 TAB, TID, Dosing Weight 64.545, kg, Start date: 10/28/16 17:00:00 [employer], Duration: 30 day, Stop date: 11/27/16 13:00:00 CDT oxybutynin No Notes: Memor ia 3-06 Same as: l 23:00: Ditropan) Kevin 00 Triamcinolo No Notes: Arturo sony ne 3-06 (Same As: l Acetonide 23:00: Kenalog) Herm angela 0.001 MG/MG 00 Topical Ointment Midodrine No 2.5 mg, Memor ia 3-06 Route: PO, l 23:00: Drug form: [place] 00 TAB, TID, Dosing Weight 64.545, kg, Start date: 10/28/16 17:00:00 [employer], Duration: 30 day, Stop date: 11/27/16 13:00:00 CDT oxybutynin No Notes: Memor ia 3-06 Same as: l 23:00: Ditropan) [place] 00 Triamcinolo No Notes: Arturo sony ne 3-06 (Same As: l Acetonide 23:00: Kenalog) Herm angela 0.001 MG/MG 00 Topical Ointment Midodrine No 2.5 mg, Memor ia 3-06 Route: PO, l 23:00: Drug form: [place] 00 TAB, TID, Dosing Weight 64.545, kg, Start date: 10/28/16 17:00:00 [employer], Duration: 30 day, Stop date: 11/27/16 13:00:00 CDT oxybutynin No Notes: Memor ia 3-06 Same as: l 23:00: Ditropan) Triamcinolo No Notes: Arturo sony ne 3-06 (Same As: l Acetonide 23:00: Kenalog) Herm angela 0.001 MG/MG 00 Topical Ointment Midodrine No 2.5 mg, Memor ia 3-06 Route: PO, l 23:00: Drug form: [place] 00 TAB, TID, Dosing Weight 64.545, kg, Start date: 10/28/16 17:00:00 [employer], Duration: 30 day, Stop date: 11/27/16 13:00:00 CDT oxybutynin No Notes: Memor ia 3-06 Same as: l 23:00: Ditropan) Triamcinolo No Notes: Arturo sony ne 3-06 (Same As: l Acetonide 23:00: Kenalog) Herm angela 0.001 MG/MG 00 Topical Ointment Midodrine No 2.5 mg, Memor ia 3-06 Route: PO, l 23:00: Drug form: [place] 00 TAB, TID, Dosing Weight 64.545, kg, Start date: 10/28/16 17:00:00 [employer], Duration: 30 day, Stop date: 11/27/16 13:00:00 CDT oxybutynin No Notes: Memor ia 3-06 Same as: l 23:00: Ditropan) Triamcinolo No Notes: Arturo sony ne 3-06 (Same As: l Acetonide 23:00: Kenalog) Herm angela 0.001 MG/MG 00 Topical Ointment Midodrine No 2.5 mg, Memor ia 3-06 Route: PO, l 23:00: Drug form: [place] 00 TAB, TID, Dosing Weight 64.545, kg, Start date: 10/28/16 17:00:00 [employer], Duration: 30 day, Stop date: 11/27/16 13:00:00 CDT oxybutynin No Notes: Memor ia 3-06 Same as: l 23:00: Ditropan) [place] 00 Triamcinolo No Notes: Arturo sony ne 3-06 (Same As: l Acetonide 23:00: Kenalog) Herm angela 0.001 MG/MG 00 Topical Ointment Midodrine No 2.5 mg, Memor ia 3-06 Route: PO, l 23:00: Drug form: [place] 00 TAB, TID, Dosing Weight 64.545, kg, Start date: 10/28/16 17:00:00 [employer], Duration: 30 day, Stop date: 11/27/16 13:00:00 CDT oxybutynin No Notes: Memor ia 3-06 Same as: l 23:00: Ditropan) [place] 00 Triamcinolo No Notes: Arturo sony ne 3-06 (Same As: l Acetonide 23:00: Kenalog) Herm angela 0.001 MG/MG 00 Topical Ointment Midodrine No 2.5 mg, Memor ia 3-06 Route: PO, l 23:00: Drug form: [place] 00 TAB, TID, Dosing Weight 64.545, kg, Start date: 10/28/16 17:00:00 [employer], Duration: 30 day, Stop date: 11/27/16 13:00:00 CDT oxybutynin No Notes: Memor ia 3-06 Same as: l 23:00: Ditropan) Kevin 00 Triamcinolo No Notes: Arturo sony ne 3-06 (Same As: l Acetonide 23:00: Kenalog) Herm angela 0.001 MG/MG 00 Topical Ointment lansoprazol No Notes: Arturo sony e 3-06 Take 1 l 22:30: hour [place] 00 before or 2 hours after meal; Expires in 14 days. Shake well before use. (Same as:Prevaci d) Compound ed Product - formulatio n not commercial ly available* * lansoprazol No Notes: Arturo sony e 3-06 Take 1 l 22:30: hour [place] 00 before or 2 hours after meal; Expires in 14 days. Shake well before use. (Same as:Prevaci d) Compound ed Product - formulatio n not commercial ly available* * lansoprazol No Notes: Arturo sony e 3-06 Take 1 l 22:30: hour Kevin 00 before or 2 hours after meal; Expires in 14 days. Shake well before use. (Same as:Prevaci d) Compound ed Product - formulatio n not commercial ly available* * lansoprazol No Notes: Arturo sony e 3-06 Take 1 l 22:30: hour [place] 00 before or 2 hours after meal; Expires in 14 days. Shake well before use. (Same as:Prevaci d) Compound ed Product - formulatio n not commercial ly available* * lansoprazol No Notes: Arutro sony e 3-06 Take 1 l 22:30: hour Kevin 00 before or 2 hours after meal; Expires in 14 days. Shake well before use. (Same as:Prevaci d) Compound ed Product - formulatio n not commercial ly available* * lansoprazol No Notes: Arturo sony e 3-06 Take 1 l 22:30: hour [place] 00 before or 2 hours after meal; Expires in 14 days. Shake well before use. (Same as:Prevaci d) Compound ed Product - formulatio n not commercial ly available* * lansoprazol No Notes: Arturo sony e 3-06 Take 1 l 22:30: hour [place] 00 before or 2 hours after meal; Expires in 14 days. Shake well before use. (Same as:Prevaci d) Compound ed Product - formulatio n not commercial ly available* * lansoprazol No Notes: Arturo sony e 3-06 Take 1 l 22:30: hour Kevin 00 before or 2 hours after meal; Expires in 14 days. Shake well before use. (Same as:Prevaci d) Compound ed Product - formulatio n not commercial ly available* * lansoprazol 2017-0 No Notes: Arturo sony e 3-06 Take 1 l 22:30: hour [place] 00 before or 2 hours after meal; Expires in 14 days. Shake well before use. (Same as:Prevaci d) Compound ed Product - formulatio n not commercial ly available* * lansoprazol 0 No Notes: Arturo sony e 3-06 Take 1 l 22:30: hour [place] 00 before or 2 hours after meal; Expires in 14 days. Shake well before use. (Same as:Prevaci d) Compound ed Product - formulatio n not commercial ly available* * lansoprazol 0 No Notes: Arturo sony e 3-06 Take 1 l 22:30: hour Kevin 00 before or 2 hours after meal; Expires in 14 days. Shake well before use. (Same as:Prevaci d) Compound ed Product - formulatio n not commercial ly available* * lansoprazol No Notes: Arturo sony e 3-06 Take 1 l 22:30: hour Kevin 00 before or 2 hours after meal; Expires in 14 days. Shake well before use. (Same as:Prevaci d) Compound ed Product - formulatio n not commercial ly available* * aspirin 81 2017-0 Yes 81 mg, PO, M emoria mg tablet, 3-06 Daily, # l enteric 22:09: 120 tab, 0 Herm angela coated 00 Refill(s) ticagrelor 2017-0 Yes 60 mg, PO, M emoria 60 mg oral 3-06 Q12H, # 60 l tablet 22:09: tab, 0 [place] 00 Refill(s) aspirin 81 2017-0 Yes 81 mg, PO, M emoria mg tablet, 3-06 Daily, # l enteric 22:09: 120 tab, 0 Herm angela coated 00 Refill(s) ticagrelor 2017-0 Yes 60 mg, PO, M emoria 60 mg oral 3-06 Q12H, # 60 l tablet 22:09: tab, 0 [place] 00 Refill(s) aspirin 81 2017-0 Yes 81 mg, PO, M emoria mg tablet, 3-06 Daily, # l enteric 22:09: 120 tab, 0 Herm angela coated 00 Refill(s) ticagrelor 2017-0 Yes 60 mg, PO, M emoria 60 mg oral 10-28 Q12H, # 60 l tablet 22:09: tab, 0 Kevin 00 Refill(s) aspirin 81 2017-0 Yes 81 mg, PO, M emoria mg tablet, - Daily, # l enteric 22:09: 120 tab, 0 [facility] angela coated 00 Refill(s) ticagrelor 2017-0 Yes 60 mg, PO, M [place] 60 mg oral 10-28 Q12H, # 60 l tablet 22:09: tab, 0 [place] 00 Refill(s) aspirin 81 2017-0 Yes 81 mg, PO, M em[place] mg tablet, 10-28 Daily, # l enteric 22:09: 120 tab, 0 [facility] [place] coated 00 Refill(s) ticagrelor 2017-0 Yes 60 mg, PO, M [place] 60 mg oral 10-28 Q12H, # 60 l tablet 22:09: tab, 0 [place] 00 Refill(s) aspirin 81 2017-0 Yes 81 mg, PO, M em[place] mg tablet, 10-28 Daily, # l enteric 22:09: 120 tab, 0 [facility] [place] coated 00 Refill(s) ticagrelor 2017-0 Yes 60 mg, PO, M [place] 60 mg oral 10-28 Q12H, # 60 l tablet 22:09: tab, 0 [place] 00 Refill(s) aspirin 81 2017-0 Yes 81 mg, PO, M emoria mg tablet, - Daily, # l enteric 22:09: 120 tab, 0 [facility] ang[place] coated 00 Refill(s) ticagrelor 2017-0 Yes 60 mg, PO, M [place] 60 mg oral 10-28 Q12H, # 60 l tablet 22:09: tab, 0 [place] 00 Refill(s) aspirin 81 2017-0 Yes 81 mg, PO, M em[place] mg tablet, -06 Daily, # l enteric 22:09: 120 tab, 0 [facility] [place] coated 00 Refill(s) ticagrelor 2017-0 Yes 60 mg, PO, M [place] 60 mg oral 10-28 Q12H, # 60 l tablet 22:09: tab, 0 [place] 00 Refill(s) aspirin 81 2017-0 Yes 81 mg, PO, M em[place] mg tablet, 3-06 Daily, # l enteric 22:09: 120 tab, 0 [facility] [place] coated 00 Refill(s) ticagrelor 2017-0 Yes 60 mg, PO, M [place] 60 mg oral 3-06 Q12H, # 60 l tablet 22:09: tab, 0 [place] 00 Refill(s) aspirin 81 2017-0 Yes 81 mg, PO, M [place] mg tablet, 3-06 Daily, # l enteric 22:09: 120 tab, 0 [facility] [place] coated 00 Refill(s) ticagrelor 2017-0 Yes 60 mg, PO, M [place] 60 mg oral 3- Q12H, # 60 l tablet 22:09: tab, 0 [place] 00 Refill(s) aspirin 81 2017-0 Yes 81 mg, PO, M em[place] mg tablet, 3-06 Daily, # l enteric 22:09: 120 tab, 0 [facility] [place] coated 00 Refill(s) ticagrelor 2017-0 Yes 60 mg, PO, M emoria 60 mg oral 10-28 Q12H, # 60 l tablet 22:09: tab, 0 [place] 00 Refill(s) aspirin 81 2017-0 Yes 81 mg, PO, M emoria mg tablet, -06 Daily, # l enteric 22:09: 120 tab, 0 Herm angela coated 00 Refill(s) ticagrelor 2017-0 Yes 60 mg, PO, M emoria 60 mg oral - Q12H, # 60 l tablet 22:09: tab, 0 Kevin 00 Refill(s) Nitroglycer 2017-0 No 0.4 mg, 1 M emoria in 10-28 tab, l 22:00: Route: SL, [place] Drug form: TAB, Q5Min, Dosing Weight 64.545, kg, PRN Chest Pain, Start date: 10/28/16 16:00:00 [employer], Duration: 3 doses or times, Stop date: Limited # of times Sodium 2017-0 No 750 mL, Memoria Chloride 10-28 Rate: 75 l 0.154 22:00: ml/hr, [place] MEQ/ML 00 Infuse Injectable over: 10 Solution hr, Route: IV, Dosing Weight 64.545 kg, Total Volume: 750, Start date: 10/28/16 16:00:00 [employer], Duration: 10 hr, Stop date: 10/29/16 1:59:00 [employer] Nitroglycer 2017-0 No 0.4 mg, 1 M emoria in 10-28 tab, l 22:00: Route: Kevin TANG Drug form: TAB, Q5Min, Dosing Weight 64.545, kg, PRN Chest Pain, Start date: 10/28/16 16:00:00 [employer], Duration: 3 doses or times, Stop date: Limited # of times Sodium 2017-0 No 750 mL, Mem[facility] Chloride 10-28 Rate: 75 l 0.154 22:00: ml/hr, [place] MEQ/ML 00 Infuse Injectable over: 10 Solution hr, Route: IV, Dosing Weight 64.545 kg, Total Volume: 750, Start date: 10/28/16 16:00:00 [employer], Duration: 10 hr, Stop date: 10/29/16 1:59:00 [employer] Nitroglycer 2017-0 No 0.4 mg, 1 M emoria in 10-28 tab, l 22:00: Route: Kevin TANG Drug form: TAB, Q5Min, Dosing Weight 64.545, kg, PRN Chest Pain, Start date: 10/28/16 16:00:00 [employer], Duration: 3 doses or times, Stop date: Limited # of times Sodium 2017-0 No 750 mL, Mem[facility] Chloride 10-28 Rate: 75 l 0.154 22:00: ml/hr, [place] MEQ/ML 00 Infuse Injectable over: 10 Solution hr, Route: IV, Dosing Weight 64.545 kg, Total Volume: 750, Start date: 10/28/16 16:00:00 [employer], Duration: 10 hr, Stop date: 10/29/16 1:59:00 [employer] Nitroglycer 2017-0 No 0.4 mg, 1 M emoria in 10-28 tab, l 22:00: Route: Kevin TANG Drug form: TAB, Q5Min, Dosing Weight 64.545, kg, PRN Chest Pain, Start date: 10/28/16 16:00:00 [employer], Duration: 3 doses or times, Stop date: Limited # of times Sodium 2017-0 No 750 mL, [facility] Chloride 10-28 Rate: 75 l 0.154 22:00: ml/hr, Kevin MEQ/ML 00 Infuse Injectable over: 10 Solution hr, Route: IV, Dosing Weight 64.545 kg, Total Volume: 750, Start date: 10/28/16 16:00:00 [employer], Duration: 10 hr, Stop date: 10/29/16 1:59:00 [employer] Nitroglycer 2017-0 No 0.4 mg, 1 M emoria in 10-28 tab, l 22:00: Route: Kevin TANG Drug form: TAB, Q5Min, Dosing Weight 64.545, kg, PRN Chest Pain, Start date: 10/28/16 16:00:00 [employer], Duration: 3 doses or times, Stop date: Limited # of times Sodium 2017-0 No 750 mL, [facility] Chloride 10-28 Rate: 75 l 0.154 22:00: ml/hr, [place] MEQ/ML Infuse Injectable over: 10 Solution hr, Route: IV, Dosing Weight 64.545 kg, Total Volume: 750, Start date: 10/28/16 16:00:00 [employer], Duration: 10 hr, Stop date: 10/29/16 1:59:00 [employer] Nitroglycer 2017-0 No 0.4 mg, 1 M emoria in 10-28 tab, l 22:00: Route: Kevin TANG Drug form: TAB, Q5Min, Dosing Weight 64.545, kg, PRN Chest Pain, Start date: 10/28/16 16:00:00 [employer], Duration: 3 doses or times, Stop date: Limited # of times Sodium 2017-0 No 750 mL, [facility] Chloride 10-28 Rate: 75 l 0.154 22:00: ml/hr, Kevin MEQ/ML Infuse Injectable over: 10 Solution hr, Route: IV, Dosing Weight 64.545 kg, Total Volume: 750, Start date: 10/28/16 16:00:00 [employer], Duration: 10 hr, Stop date: 10/29/16 1:59:00 [employer] Nitroglycer 2017-0 No 0.4 mg, 1 M emoria in 10-28 tab, l 22:00: Route: Laisha TANG Drug form: TAB, Q5Min, Dosing Weight 64.545, kg, PRN Chest Pain, Start date: 10/28/16 16:00:00 [employer], Duration: 3 doses or times, Stop date: Limited # of times Sodium 2017-0 No 750 mL, [facility] Chloride 10-28 Rate: 75 l 0.154 22:00: ml/hr, [place] MEQ/ML 00 Infuse Injectable over: 10 Solution hr, Route: IV, Dosing Weight 64.545 kg, Total Volume: 750, Start date: 10/28/16 16:00:00 [employer], Duration: 10 hr, Stop date: 10/29/16 1:59:00 [employer] Nitroglycer 2017-0 No 0.4 mg, 1 M emoria in 10-28 tab, l 22:00: Route: SL, Kevin Drug form: TAB, Q5Min, Dosing Weight 64.545, kg, PRN Chest Pain, Start date: 10/28/16 16:00:00 [employer], Duration: 3 doses or times, Stop date: Limited # of times Sodium 2017-0 No 750 mL, [facility] Chloride 10-28 Rate: 75 l 0.154 22:00: ml/hr, Kevin MEQ/ML 00 Infuse Injectable over: 10 Solution hr, Route: IV, Dosing Weight 64.545 kg, Total Volume: 750, Start date: 10/28/16 16:00:00 [employer], Duration: 10 hr, Stop date: 10/29/16 1:59:00 [employer] Nitroglycer 2017-0 No 0.4 mg, 1 M emoria in 10-28 tab, l 22:00: Route: Kevin Drug form: TAB, Q5Min, Dosing Weight 64.545, kg, PRN Chest Pain, Start date: 10/28/16 16:00:00 [employer], Duration: 3 doses or times, Stop date: Limited # of times Sodium 2017-0 No 750 mL, [facility] Chloride 10-28 Rate: 75 l 0.154 22:00: ml/hr, Kevin MEQ/ML 00 Infuse Injectable over: 10 Solution hr, Route: IV, Dosing Weight 64.545 kg, Total Volume: 750, Start date: 10/28/16 16:00:00 [employer], Duration: 10 hr, Stop date: 10/29/16 1:59:00 [employer] Nitroglycer 2017-0 No 0.4 mg, 1 M emoria in 10-28 tab, l 22:00: Route: SL, Drug form: TAB, Q5Min, Dosing Weight 64.545, kg, PRN Chest Pain, Start date: 10/28/16 16:00:00 [employer], Duration: 3 doses or times, Stop date: Limited # of times Sodium 2017-0 No 750 mL, Mem[facility] Chloride 3 Rate: 75 l 0.154 22:00: ml/hr, [place] MEQ/ML 00 Infuse Injectable over: 10 Solution hr, Route: IV, Dosing Weight 64.545 kg, Total Volume: 750, Start date: 10/28/16 16:00:00 [employer], Duration: 10 hr, Stop date: 10/29/16 1:59:00 [employer] Nitroglycer 2017-0 No 0.4 mg, 1 M emoria in 10-28 tab, l 22:00: Route: SL Drug form: TAB, Q5Min, Dosing Weight 64.545, kg, PRN Chest Pain, Start date: 10/28/16 16:00:00 [employer], Duration: 3 doses or times, Stop date: Limited # of times Sodium 2017-0 No 750 mL, [facility] Chloride 10-28 Rate: 75 l 0.154 22:00: ml/hr, [place] MEQ/ML 00 Infuse Injectable over: 10 Solution hr, Route: IV, Dosing Weight 64.545 kg, Total Volume: 750, Start date: 10/28/16 16:00:00 [employer], Duration: 10 hr, Stop date: 10/29/16 1:59:00 [employer] Nitroglycer 2017-0 No 0.4 mg, 1 M emoria in 10-28 tab, l 22:00: Route: CL[facility] Drug form: TAB, Q5Min, Dosing Weight 64.545, kg, PRN Chest Pain, Start date: 10/28/16 16:00:00 [employer], Duration: 3 doses or times, Stop date: Limited # of times Sodium 2017-0 No 750 mL, Mem[facility] Chloride 3 Rate: 75 l 0.154 22:00: ml/hr, [place] MEQ/ML 00 Infuse Injectable over: 10 Solution hr, Route: IV, Dosing Weight 64.545 kg, Total Volume: 750, Start date: 10/28/16 16:00:00 [employer], Duration: 10 hr, Stop date: 10/29/16 1:59:00 [employer] ferrous 2016- Yes 325 mg = 1 Arturo sony sulfate 325 3-06 tab, PO, l mg oral 19:32: Daily, # [place] enteric 00 30 tab, 0 coated Refill(s) tablet pantoprazol Yes = 1 Pack, M emoria e 40 MG 3-06 PO, Daily, l Granules 19:32: # 30 ea, 0 Her carrizales [Protonix] 00 Refill(s) ferrous Yes 325 mg = 1 Arturo sony sulfate 325 3-06 tab, PO, l mg oral 19:32: Daily, # [place] enteric 00 30 tab, 0 coated Refill(s) tablet pantoprazol Yes = 1 Pack, M emoria e 40 MG 3-06 PO, Daily, l Granules 19:32: # 30 ea, 0 Her car[place] [Protonix] 00 Refill(s) ferrous Yes 325 mg = 1 Arturo sony sulfate 325 3-06 tab, PO, l mg oral 19:32: Daily, # [place] enteric 00 30 tab, 0 coated Refill(s) tablet pantoprazol Yes = 1 Pack, M emoria e 40 MG 3-06 PO, Daily, l Granules 19:32: # 30 ea, 0 Her [place] [Protonix] 00 Refill(s) ferrous Yes 325 mg = 1 Arturo sony sulfate 325 3-06 tab, PO, l mg oral 19:32: Daily, # [place] enteric 00 30 tab, 0 coated Refill(s) tablet pantoprazol Yes = 1 Pack, M emoria e 40 MG 3-06 PO, Daily, l Granules 19:32: # 30 ea, 0 Her [place] [Protonix] 00 Refill(s) ferrous Yes 325 mg = 1 Arturo sony sulfate 325 3-06 tab, PO, l mg oral 19:32: Daily, # [place] enteric 00 30 tab, 0 coated Refill(s) tablet pantoprazol Yes = 1 Pack, M emoria e 40 MG 3-06 PO, Daily, l Granules 19:32: # 30 ea, 0 Her [place] [Protonix] 00 Refill(s) ferrous Yes 325 mg = 1 Arturo sony sulfate 325 3-06 tab, PO, l mg oral 19:32: Daily, # [place] enteric 00 30 tab, 0 coated Refill(s) tablet pantoprazol Yes = 1 Pack, M emoria e 40 MG 3-06 PO, Daily, l Granules 19:32: # 30 ea, 0 Her carriz[place] [Protonix] 00 Refill(s) ferrous Yes 325 mg = 1 Arturo sony sulfate 325 3-06 tab, PO, l mg oral 19:32: Daily, # [place] enteric 00 30 tab, 0 coated Refill(s) tablet pantoprazol Yes = 1 Pack, M emoria e 40 MG 3-06 PO, Daily, l Granules 19:32: # 30 ea, 0 Her [place] [Protonix] 00 Refill(s) ferrous Yes 325 mg = 1 Arturo sony sulfate 325 3-06 tab, PO, l mg oral 19:32: Daily, # [place] enteric 00 30 tab, 0 coated Refill(s) tablet pantoprazol Yes = 1 Pack, M emoria e 40 MG 3-06 PO, Daily, l Granules 19:32: # 30 ea, 0 Her car[place] [Protonix] 00 Refill(s) ferrous Yes 325 mg = 1 Arturo sony sulfate 325 3-06 tab, PO, l mg oral 19:32: Daily, # [place] enteric 00 30 tab, 0 coated Refill(s) tablet pantoprazol Yes = 1 Pack, M emoria e 40 MG 3-06 PO, Daily, l Granules 19:32: # 30 ea, 0 Her car[place] [Protonix] 00 Refill(s) ferrous Yes 325 mg = 1 Arturo sony sulfate 325 3-06 tab, PO, l mg oral 19:32: Daily, # [place] enteric 00 30 tab, 0 coated Refill(s) tablet pantoprazol Yes = 1 Pack, M emoria e 40 MG 3-06 PO, Daily, l Granules 19:32: # 30 ea, 0 Her car[place] [Protonix] 00 Refill(s) ferrous Yes 325 mg = 1 Arturo sony sulfate 325 3-06 tab, PO, l mg oral 19:32: Daily, # [place] enteric 00 30 tab, 0 coated Refill(s) tablet pantoprazol 2017-0 Yes = 1 Pack, M emoria e 40 MG 3-06 PO, Daily, l Granules 19:32: # 30 ea, 0 Her carriz[place] [Protonix] 00 Refill(s) ferrous 2017-0 Yes 325 mg = 1 Arturo sony sulfate 325 3-06 tab, PO, l mg oral 19:32: Daily, # [place] enteric 00 30 tab, 0 coated Refill(s) tablet pantoprazol 2017-0 Yes = 1 Pack, M emoria e 40 MG 3-06 PO, Daily, l Granules 19:32: # 30 ea, 0 Her carriz[place] [Protonix] 00 Refill(s) Sodium 2017-0 No 1,000 mL, Memori a Chloride 3-06 Rate: 75 l 0.154 19:25: ml/hr, Kevin MEQ/ML 00 Infuse Injectable over: 13.3 Solution hr, Route: IV, Dosing Weight 64.545 kg, Total Volume: 1,000, Start date: 10/28/16 13:25:00 [employer], Duration: 30 day, Stop date: 11/27/16 13:24:00 CDT Sodium 2017-0 No 1,000 mL, Memori a Chloride 3-06 Rate: 75 l 0.154 19:25: ml/hr, Kevin MEQ/ML 00 Infuse Injectable over: 13.3 Solution hr, Route: IV, Dosing Weight 64.545 kg, Total Volume: 1,000, Start date: 10/28/16 13:25:00 [employer], Duration: 30 day, Stop date: 11/27/16 13:24:00 CDT Sodium 2017-0 No 1,000 mL, Memori a Chloride 3-06 Rate: 75 l 0.154 19:25: ml/hr, Kevin MEQ/ML 00 Infuse Injectable over: 13.3 Solution hr, Route: IV, Dosing Weight 64.545 kg, Total Volume: 1,000, Start date: 10/28/16 13:25:00 [employer], Duration: 30 day, Stop date: 11/27/16 13:24:00 CDT Sodium 2017-0 No 1,000 mL, Memori a Chloride 3-06 Rate: 75 l 0.154 19:25: ml/hr, Kevin MEQ/ML 00 Infuse Injectable over: 13.3 Solution hr, Route: IV, Dosing Weight 64.545 kg, Total Volume: 1,000, Start date: 10/28/16 13:25:00 [employer], Duration: 30 day, Stop date: 11/27/16 13:24:00 CDT Sodium 2017-0 No 1,000 mL, Memori a Chloride 3-06 Rate: 75 l 0.154 19:25: ml/hr, Kevin MEQ/ML 00 Infuse Injectable over: 13.3 Solution hr, Route: IV, Dosing Weight 64.545 kg, Total Volume: 1,000, Start date: 10/28/16 13:25:00 [employer], Duration: 30 day, Stop date: 11/27/16 13:24:00 CDT Sodium 2017-0 No 1,000 mL, Memori a Chloride 3-06 Rate: 75 l 0.154 19:25: ml/hr, [place] MEQ/ML 00 Infuse Injectable over: 13.3 Solution hr, Route: IV, Dosing Weight 64.545 kg, Total Volume: 1,000, Start date: 10/28/16 13:25:00 [employer], Duration: 30 day, Stop date: 11/27/16 13:24:00 CDT Sodium 2017-0 No 1,000 mL, Memori a Chloride 3-06 Rate: 75 l 0.154 19:25: ml/hr, [place] MEQ/ML 00 Infuse Injectable over: 13.3 Solution hr, Route: IV, Dosing Weight 64.545 kg, Total Volume: 1,000, Start date: 10/28/16 13:25:00 [employer], Duration: 30 day, Stop date: 11/27/16 13:24:00 CDT Sodium 2017-0 No 1,000 mL, Memori a Chloride 3-06 Rate: 75 l 0.154 19:25: ml/hr, Kevin MEQ/ML 00 Infuse Injectable over: 13.3 Solution hr, Route: IV, Dosing Weight 64.545 kg, Total Volume: 1,000, Start date: 10/28/16 13:25:00 [employer], Duration: 30 day, Stop date: 11/27/16 13:24:00 CDT Sodium 2017-0 No 1,000 mL, Memori a Chloride 3-06 Rate: 75 l 0.154 19:25: ml/hr, [place] MEQ/ML 00 Infuse Injectable over: 13.3 Solution hr, Route: IV, Dosing Weight 64.545 kg, Total Volume: 1,000, Start date: 10/28/16 13:25:00 [employer], Duration: 30 day, Stop date: 11/27/16 13:24:00 CDT Sodium 2017-0 No 1,000 mL, Memori a Chloride 3-06 Rate: 75 l 0.154 19:25: ml/hr, Kevin MEQ/ML 00 Infuse Injectable over: 13.3 Solution hr, Route: IV, Dosing Weight 64.545 kg, Total Volume: 1,000, Start date: 10/28/16 13:25:00 [employer], Duration: 30 day, Stop date: 11/27/16 13:24:00 CDT Sodium 2017-0 No 1,000 mL, Memori a Chloride 3-06 Rate: 75 l 0.154 19:25: ml/hr, Kevin MEQ/ML 00 Infuse Injectable over: 13.3 Solution hr, Route: IV, Dosing Weight 64.545 kg, Total Volume: 1,000, Start date: 10/28/16 13:25:00 [employer], Duration: 30 day, Stop date: 11/27/16 13:24:00 CDT Sodium 2017-0 No 1,000 mL, Memori a Chloride 3-06 Rate: 75 l 0.154 19:25: ml/hr, [place] MEQ/ML 00 Infuse Injectable over: 13.3 Solution hr, Route: IV, Dosing Weight 64.545 kg, Total Volume: 1,000, Start date: 10/28/16 13:25:00 [employer], Duration: 30 day, Stop date: 11/27/16 13:24:00 CDT Sodium 2017-0 No 250 mL, [facility] Chloride 3-06 Rate: 250 l 0.154 19:24: ml/hr, Kevin MEQ/ML 00 Infuse Injectable over: 1 Solution hr, Route: IV, Dosing Weight 64.545 kg, Total Volume: 250, Start date: 10/28/16 13:24:00 [employer], Duration: 30 day, Stop date: 11/27/16 14:23:00 CDT Sodium 2017-0 No 250 mL, [facility] Chloride 3-06 Rate: 250 l 0.154 19:24: ml/hr, Kevin MEQ/ML 00 Infuse Injectable over: 1 Solution hr, Route: IV, Dosing Weight 64.545 kg, Total Volume: 250, Start date: 10/28/16 13:24:00 [employer], Duration: 30 day, Stop date: 11/27/16 14:23:00 CDT Sodium 2017-0 No 250 mL, [facility] Chloride 3-06 Rate: 250 l 0.154 19:24: ml/hr, [place] MEQ/ML 00 Infuse Injectable over: 1 Solution hr, Route: IV, Dosing Weight 64.545 kg, Total Volume: 250, Start date: 10/28/16 13:24:00 [employer], Duration: 30 day, Stop date: 11/27/16 14:23:00 CDT Sodium 2017-0 No 250 mL, [facility] Chloride 3-06 Rate: 250 l 0.154 19:24: ml/hr, Kevin MEQ/ML 00 Infuse Injectable over: 1 Solution hr, Route: IV, Dosing Weight 64.545 kg, Total Volume: 250, Start date: 10/28/16 13:24:00 [employer], Duration: 30 day, Stop date: 11/27/16 14:23:00 CDT Sodium 2017-0 No 250 mL, [facility] Chloride 3-06 Rate: 250 l 0.154 19:24: ml/hr, [place] MEQ/ML 00 Infuse Injectable over: 1 Solution hr, Route: IV, Dosing Weight 64.545 kg, Total Volume: 250, Start date: 10/28/16 13:24:00 [employer], Duration: 30 day, Stop date: 11/27/16 14:23:00 CDT Sodium 2017-0 No 250 mL, [facility] Chloride 3-06 Rate: 250 l 0.154 19:24: ml/hr, Kevin MEQ/ML 00 Infuse Injectable over: 1 Solution hr, Route: IV, Dosing Weight 64.545 kg, Total Volume: 250, Start date: 10/28/16 13:24:00 [employer], Duration: 30 day, Stop date: 11/27/16 14:23:00 CDT Sodium 2017-0 No 250 mL, [facility] Chloride 3-06 Rate: 250 l 0.154 19:24: ml/hr, [place] MEQ/ML 00 Infuse Injectable over: 1 Solution hr, Route: IV, Dosing Weight 64.545 kg, Total Volume: 250, Start date: 10/28/16 13:24:00 [employer], Duration: 30 day, Stop date: 11/27/16 14:23:00 CDT Sodium 2017-0 No 250 mL, [facility] Chloride 3-06 Rate: 250 l 0.154 19:24: ml/hr, Kevin MEQ/ML 00 Infuse Injectable over: 1 Solution hr, Route: IV, Dosing Weight 64.545 kg, Total Volume: 250, Start date: 10/28/16 13:24:00 [employer], Duration: 30 day, Stop date: 11/27/16 14:23:00 CDT Sodium 2017-0 No 250 mL, [facility] Chloride 3-06 Rate: 250 l 0.154 19:24: ml/hr, [place] MEQ/ML 00 Infuse Injectable over: 1 Solution hr, Route: IV, Dosing Weight 64.545 kg, Total Volume: 250, Start date: 10/28/16 13:24:00 [employer], Duration: 30 day, Stop date: 11/27/16 14:23:00 CDT Sodium 2017-0 No 250 mL, [facility] Chloride 3-06 Rate: 250 l 0.154 19:24: ml/hr, Kevin MEQ/ML 00 Infuse Injectable over: 1 Solution hr, Route: IV, Dosing Weight 64.545 kg, Total Volume: 250, Start date: 10/28/16 13:24:00 [employer], Duration: 30 day, Stop date: 11/27/16 14:23:00 CDT Sodium 2017-0 No 250 mL, [facility] Chloride 3-06 Rate: 250 l 0.154 19:24: ml/hr, Kevin MEQ/ML 00 Infuse Injectable over: 1 Solution hr, Route: IV, Dosing Weight 64.545 kg, Total Volume: 250, Start date: 10/28/16 13:24:00 [employer], Duration: 30 day, Stop date: 11/27/16 14:23:00 CDT Sodium 2017-0 No 250 mL, [facility] Chloride 3-06 Rate: 250 l 0.154 19:24: ml/hr, [place] MEQ/ML 00 Infuse Injectable over: 1 Solution hr, Route: IV, Dosing Weight 64.545 kg, Total Volume: 250, Start date: 10/28/16 13:24:00 [employer], Duration: 30 day, Stop date: 11/27/16 14:23:00 CDT midodrine 2015-0 Yes 2.5 mg = 1 Me moria 2.5 mg oral 9-02 tab, PO, l tablet 16:05: TID, # 90 [place] 00 tab, 0 Refill(s) non-formula 2015-0 Yes 2.5 mg =, M emoria ry 9-02 PO, BID, # l 16:05: 60, Kevin 00 Refill(s) 0, MISC midodrine 2015-0 Yes 2.5 mg = 1 Me moria 2.5 mg oral 9-02 tab, PO, l tablet 16:05: TID, # 90 [place] 00 tab, 0 Refill(s) non-formula 2015-0 Yes 2.5 mg =, M emoria ry 9-02 PO, BID, # l 16:05: 60, Kevin 00 Refill(s) 0, MISC midodrine 2015-0 Yes 2.5 mg = 1 Me moria 2.5 mg oral 9-02 tab, PO, l tablet 16:05: TID, # 90 [place] 00 tab, 0 Refill(s) non-formula 2015-0 Yes 2.5 mg =, M emoria ry 9-02 PO, BID, # l 16:05: 60, Kevin 00 Refill(s) 0, MISC midodrine 2015-0 Yes 2.5 mg = 1 Me moria 2.5 mg oral 9-02 tab, PO, l tablet 16:05: TID, # 90 [place] 00 tab, 0 Refill(s) non-formula 2016-0 Yes 2.5 mg =, M emoria ry 9-02 PO, BID, # l 16:05: 60, [place] 00 Refill(s) 0, MISC midodrine 2015-0 Yes 2.5 mg = 1 Me moria 2.5 mg oral 9-02 tab, PO, l tablet 16:05: TID, # 90 [place] 00 tab, 0 Refill(s) non-formula 2015-0 Yes 2.5 mg =, M emoria ry 9-02 PO, BID, # l 16:05: 60, [place] 00 Refill(s) 0, MISC midodrine Yes 2.5 mg = 1 Me moria 2.5 mg oral 9-02 tab, PO, l tablet 16:05: TID, # 90 [place] 00 tab, 0 Refill(s) non-formula 2015-0 Yes 2.5 mg =, M emoria ry 9-02 PO, BID, # l 16:05: 60, [place] 00 Refill(s) 0, MISC midodrine Yes 2.5 mg = 1 Me moria 2.5 mg oral -02 tab, PO, l tablet 16:05: TID, # 90 [place] 00 tab, 0 Refill(s) non-formula 0 Yes 2.5 mg =, M emoria ry 9- PO, BID, # l 16:05: 60, [place] 00 Refill(s) 0, MISC midodrine Yes 2.5 mg = 1 Me moria 2.5 mg oral 02 tab, PO, l tablet 16:05: TID, # 90 [place] 00 tab, 0 Refill(s) non-formula 0 Yes 2.5 mg =, M emoria ry 9-02 PO, BID, # l 16:05: 60, Kevin 00 Refill(s) 0, MISC midodrine Yes 2.5 mg = 1 Me moria 2.5 mg oral -02 tab, PO, l tablet 16:05: TID, # 90 [place] 00 tab, 0 Refill(s) non-formula 2015-0 Yes 2.5 mg =, M emoria ry 9-02 PO, BID, # l 16:05: 60, Kevin 00 Refill(s) 0, MISC midodrine Yes 2.5 mg = 1 Me moria 2.5 mg oral 9-02 tab, PO, l tablet 16:05: TID, # 90 [place] 00 tab, 0 Refill(s) non-formula 2015-0 Yes 2.5 mg =, M emoria ry 9-02 PO, BID, # l 16:05: 60, [place] 00 Refill(s) 0, MISC midodrine Yes 2.5 mg = 1 Me moria 2.5 mg oral 02 tab, PO, l tablet 16:05: TID, # 90 [place] 00 tab, 0 Refill(s) non-formula Yes 2.5 mg =, [place] emoria ry 04-26 PO, BID, # l 16:05: 60, Kevin 00 Refill(s) 0, MISC midodrine Yes 2.5 mg = 1 Me moria 2.5 mg oral 04-26 tab, PO, l tablet 16:05: TID, # 90 [place] 00 tab, 0 Refill(s) non-formula Yes 2.5 mg =, M emoria ry 02 PO, BID, # l 16:05: 60, [place] 00 Refill(s) 0, MISC Maalox No Notes: [...] ud TRICIA) Maalox No Notes: [facility] Advanced - (aluminum l Regular 08:55: hydroxide- Herm angela [...] 9-02 25 mg l tablet 02:00: tablet, Kevin 00 0.5 tab, Drug form: MISC, Route: PO, Bedtime, 04/25/16 21:00:00 CDT, Duration: 30 day, Stop date: 05/24/16 21:00:00 CDT Sertraline No Sertraline M emoria 25 mg 9-02 25 mg l tablet 02:00: tablet, [place] 00 0.5 tab, Drug form: MISC, Route: PO, Bedtime, 04/25/16 21:00:00 CDT, Duration: 30 day, Stop date: 05/24/16 21:00:00 CDT Sertraline No Sertraline M emoria 25 mg 9-02 25 mg l tablet 02:00: tablet, [place] 00 0.5 tab, Drug form: MISC, Route: PO, Bedtime, 04/25/16 21:00:00 CDT, Duration: 30 day, Stop date: 05/24/16 21:00:00 CDT Sertraline 2016-0 No Sertraline M emoria 25 mg 9-02 25 mg l tablet 02:00: tablet, [place] 00 0.5 tab, Drug form: MISC, Route: PO, Bedtime, 04/25/16 21:00:00 CDT, Duration: 30 day, Stop date: 05/24/16 21:00:00 CDT Sertraline 2016-0 No Sertraline M emoria 25 mg 9-02 25 mg l tablet 02:00: tablet, [place] 00 0.5 tab, Drug form: MISC, Route: PO, Bedtime, 04/25/16 21:00:00 CDT, Duration: 30 day, Stop date: 05/24/16 21:00:00 CDT Sertraline 2016-0 No Sertraline M emoria 25 mg 9-02 25 mg l tablet 02:00: tablet, Kevin 00 0.5 tab, Drug form: MISC, Route: PO, Bedtime, 04/25/16 21:00:00 CDT, Duration: 30 day, Stop date: 05/24/16 21:00:00 CDT Sertraline 2016-0 No Sertraline M emoria 25 mg 9-02 25 mg l tablet 02:00: tablet, [place] 00 0.5 tab, Drug form: MISC, Route: PO, Bedtime, 04/25/16 21:00:00 CDT, Duration: 30 day, Stop date: 05/24/16 21:00:00 CDT Sertraline 2016-0 No Sertraline M em[place] 25 mg 9-02 25 mg l tablet 02:00: tablet, [place] 00 0.5 tab, Drug form: MISC, Route: PO, Bedtime, 04/25/16 21:00:00 CDT, Duration: 30 day, Stop date: 05/24/16 21:00:00 CDT Sertraline 2016-0 No Sertraline M [place] 25 mg 9-02 25 mg l tablet 02:00: tablet, [place] 00 0.5 tab, Drug form: MISC, Route: PO, Bedtime, 04/25/16 21:00:00 CDT, Duration: 30 day, Stop date: 05/24/16 21:00:00 CDT Sertraline 2015-0 No Sertraline M [place] 25 mg 9-02 25 mg l tablet 02:00: tablet, [place] 00 0.5 tab, Drug form: MISC, Route: PO, Bedtime, 04/25/16 21:00:00 CDT, Duration: 30 day, Stop date: 05/24/16 21:00:00 CDT Sertraline No Sertraline M [place] 25 mg 9-02 25 mg l tablet 02:00: tablet, [place] 00 0.5 tab, Drug form: MISC, Route: PO, Bedtime, 04/25/16 21:00:00 CDT, Duration: 30 day, Stop date: 05/24/16 21:00:00 CDT Sertraline 0 No Sertraline M [place] 25 mg 9-02 25 mg l tablet 02:00: tablet, [place] 00 0.5 tab, Drug form: MISC, Route: PO, Bedtime, 04/25/16 21:00:00 CDT, Duration: 30 day, Stop date: 05/24/16 21:00:00 CDT potassium 2015- No Notes: Memori a chloride 9-01 (Same as: l 14:30: Potassium [place] 00 Chloride) potassium No Notes: [facility] a chloride 9-01 (Same as: l 14:30: Potassium [place] 00 Chloride) potassium No Notes: [facility] a chloride 9- (Same as: l 14:30: Potassium [place] 00 Chloride) potassium No Notes: [facility] a chloride 9-01 (Same as: l 14:30: Potassium [place] 00 Chloride) potassium No Notes: [facility] a chloride 9-01 (Same as: l 14:30: Potassium [place] 00 Chloride) potassium No Notes: [facility] a chloride 9- (Same as: l 14:30: Potassium [place] 00 Chloride) potassium No Notes: [facility] a chloride 9-01 (Same as: l 14:30: Potassium [place] 00 Chloride) potassium 2016-0 No Notes: [facility] a chloride 9- (Same as: l 14:30: Potassium [place] 00 Chloride) potassium 2015-0 No Notes: [facility] a chloride - (Same as: l 14:30: Potassium [place] 00 Chloride) potassium 2015-0 No Notes: [facility] a chloride - (Same as: l 14:30: Potassium [place] 00 Chloride) potassium 2015-0 No Notes: [facility] a chloride 9- (Same as: l 14:30: Potassium [place] 00 Chloride) potassium 2015-0 No Notes: [facility] a chloride 9- (Same as: l 14:30: Potassium [place] 00 Chloride) Mag-Ox 400 No 500 mg, Arturo sony 04-25 Route: PO, l 14:00: Drug form: [place] 00 TAB, Daily, Dosing Weight 68.636, kg, Start date: 04/25/16 9:00:00 CDT, Duration: 30 day, Stop date: 05/24/16 9:00:00 CDT Mag-Ox 400 2015-0 No 500 mg, Arturo sony 04-25 Route: PO, l 14:00: Drug form: [place] 00 TAB, Daily, Dosing Weight 68.636, kg, Start date: 04/25/16 9:00:00 CDT, Duration: 30 day, Stop date: 05/24/16 9:00:00 CDT Mag-Ox 400 2015-0 No 500 mg, Arturo sony 04-25 Route: PO, l 14:00: Drug form: [place] 00 TAB, Daily, Dosing Weight 68.636, kg, Start date: 04/25/16 9:00:00 CDT, Duration: 30 day, Stop date: 05/24/16 9:00:00 CDT Mag-Ox 400 2015-0 No 500 mg, Arturo sony 9 Route: PO, l 14:00: Drug form: [place] 00 TAB, Daily, Dosing Weight 68.636, kg, Start date: 04/25/16 9:00:00 CDT, Duration: 30 day, Stop date: 05/24/16 9:00:00 CDT Mag-Ox 400 2015-0 No 500 mg, Arturo sony 04-25 Route: PO, l 14:00: Drug form: [place] 00 TAB, Daily, Dosing Weight 68.636, kg, Start date: 04/25/16 9:00:00 CDT, Duration: 30 day, Stop date: 05/24/16 9:00:00 CDT Mag-Ox 400 2016-0 No 500 mg, Arturo sony 9 Route: PO, l 14:00: Drug form: [place] 00 TAB, Daily, Dosing Weight 68.636, kg, Start date: 04/25/16 9:00:00 CDT, Duration: 30 day, Stop date: 05/24/16 9:00:00 CDT Mag-Ox 400 2016-0 No 500 mg, Arturo sony 9 Route: PO, l 14:00: Drug form: [place] 00 TAB, Daily, Dosing Weight 68.636, kg, Start date: 04/25/16 9:00:00 CDT, Duration: 30 day, Stop date: 05/24/16 9:00:00 CDT Mag-Ox 400 2016-0 No 500 mg, Arturo sony 9 Route: PO, l 14:00: Drug form: [place] 00 TAB, Daily, Dosing Weight 68.636, kg, Start date: 04/25/16 9:00:00 CDT, Duration: 30 day, Stop date: 05/24/16 9:00:00 CDT Mag-Ox 400 2016-0 No 500 mg, Arturo sony 9 Route: PO, l 14:00: Drug form: [place] 00 TAB, Daily, Dosing Weight 68.636, kg, Start date: 04/25/16 9:00:00 CDT, Duration: 30 day, Stop date: 05/24/16 9:00:00 CDT Mag-Ox 400 2016-0 No 500 mg, Arturo sony 9- Route: PO, l 14:00: Drug form: [place] 00 TAB, Daily, Dosing Weight 68.636, kg, Start date: 04/25/16 9:00:00 CDT, Duration: 30 day, Stop date: 05/24/16 9:00:00 CDT Mag-Ox 400 2016-0 No 500 mg, Arturo sony 9 Route: PO, l 14:00: Drug form: [place] 00 TAB, Daily, Dosing Weight 68.636, kg, Start date: 04/25/16 9:00:00 CDT, Duration: 30 day, Stop date: 05/24/16 9:00:00 CDT Mag-Ox 400 No 500 mg, Arturo sony 04-25 Route: PO, l 14:00: Drug form: [place] 00 TAB, Daily, Dosing Weight 68.636, kg, Start date: 04/25/16 9:00:00 CDT, Duration: 30 day, Stop date: 05/24/16 9:00:00 CDT Sertraline No Sertraline M emoria 25 mg - 25 mg l tablet 02:00: tablet, [place] 00 0.5 tab, Drug form: MISC, Route: PO, Bedtime, 04/24/16 21:00:00 CDT, Duration: 30 day, Stop date: 05/23/16 21:00:00 CDT Sertraline No Sertraline M emoria 25 mg - 25 mg l tablet 02:00: tablet, [place] 00 0.5 tab, Drug form: MISC, Route: PO, Bedtime, 04/24/16 21:00:00 CDT, Duration: 30 day, Stop date: 05/23/16 21:00:00 CDT Sertraline No Sertraline M [place] 25 mg 9-01 25 mg l tablet 02:00: tablet, [place] 00 0.5 tab, Drug form: MISC, Route: PO, Bedtime, 04/24/16 21:00:00 CDT, Duration: 30 day, Stop date: 05/23/16 21:00:00 CDT Sertraline No Sertraline M [place] 25 mg 9-01 25 mg l tablet 02:00: tablet, [place] 00 0.5 tab, Drug form: MISC, Route: PO, Bedtime, 04/24/16 21:00:00 CDT, Duration: 30 day, Stop date: 05/23/16 21:00:00 CDT Sertraline No Sertraline M [place] 25 mg 9-01 25 mg l tablet 02:00: tablet, [place] 00 0.5 tab, Drug form: MISC, Route: PO, Bedtime, 04/24/16 21:00:00 CDT, Duration: 30 day, Stop date: 05/23/16 21:00:00 CDT Sertraline 2016-0 No Sertraline M em[place] 25 mg 9-01 25 mg l tablet 02:00: tablet, [place] 00 0.5 tab, Drug form: MISC, Route: PO, Bedtime, 04/24/16 21:00:00 CDT, Duration: 30 day, Stop date: 05/23/16 21:00:00 CDT Sertraline 2015-0 No Sertraline M em[place] 25 mg 9-01 25 mg l tablet 02:00: tablet, [place] 00 0.5 tab, Drug form: MISC, Route: PO, Bedtime, 04/24/16 21:00:00 CDT, Duration: 30 day, Stop date: 05/23/16 21:00:00 CDT Sertraline 2015-0 No Sertraline M em[place] 25 mg 9-01 25 mg l tablet 02:00: tablet, [place] 00 0.5 tab, Drug form: MISC, Route: PO, Bedtime, 04/24/16 21:00:00 CDT, Duration: 30 day, Stop date: 05/23/16 21:00:00 CDT Sertraline 2015-0 No Sertraline M em[place] 25 mg 9-01 25 mg l tablet 02:00: tablet, [place] 00 0.5 tab, Drug form: MISC, Route: PO, Bedtime, 04/24/16 21:00:00 CDT, Duration: 30 day, Stop date: 05/23/16 21:00:00 CDT Sertraline 2015-0 No Sertraline M em[place] 25 mg 9-01 25 mg l tablet 02:00: tablet, [place] 00 0.5 tab, Drug form: MISC, Route: PO, Bedtime, 04/24/16 21:00:00 CDT, Duration: 30 day, Stop date: 05/23/16 21:00:00 CDT Sertraline 2015-0 No Sertraline M [place] 25 mg 9-01 25 mg l tablet 02:00: tablet, [place] 00 0.5 tab, Drug form: MISC, Route: PO, Bedtime, 04/24/16 21:00:00 CDT, Duration: 30 day, Stop date: 05/23/16 21:00:00 CDT Sertraline 2015-0 No Sertraline M em[place] 25 mg 04-25 25 mg l tablet 02:00: tablet, [place] 00 0.5 tab, Drug form: MISC, Route: PO, Bedtime, 04/24/16 21:00:00 CDT, Duration: 30 day, Stop date: 05/23/16 21:00:00 CDT oxybutynin 2015-0 No Notes: [facility] 8 Same as: l 22:00: Ditropan) [place] Pindolol 2016-0 No 2.5 mg, Memori a 8- Route: PO, l 22:00: Drug form: [place] 00 TAB, BID, Dosing Weight 68.636, kg, Start date: 04/24/16 17:00:00 CDT, Duration: 30 day, Stop date: 05/24/16 9:00:00 CDT oxybutynin 2016-0 No 5 mg, Memori a extended 8 Route: PO, l release 22:00: Drug form: [place] 00 ERTAB, BID, Dosing Weight 68.636, kg, Start date: 04/24/16 17:00:00 CDT, Duration: 30 day, Stop date: 05/24/16 9:00:00 CDT oxybutynin 2015-0 No Notes: [facility] 04-24 Same as: l 22:00: Ditropan) [place] 00 Pindolol 2016-0 No 2.5 mg, Memori a 8- Route: PO, l 22:00: Drug form: [place] 00 TAB, BID, Dosing Weight 68.636, kg, Start date: 04/24/16 17:00:00 CDT, Duration: 30 day, Stop date: 05/24/16 9:00:00 CDT oxybutynin 2016-0 No 5 mg, Memori a extended 8 Route: PO, l release 22:00: Drug form: [place] ang[place] 00 ERTAB, BID, Dosing Weight 68.636, kg, Start date: 04/24/16 17:00:00 CDT, Duration: 30 day, Stop date: 05/24/16 9:00:00 CDT oxybutynin 2016-0 No Notes: [facility] 8-31 Same as: l 22:00: Ditropan) [place] Pindolol 2016-0 No 2.5 mg, Memori a 8-31 Route: PO, l 22:00: Drug form: [place] 00 TAB, BID, Dosing Weight 68.636, kg, [...] CDT oxybutynin 2016-0 No Notes: [facility] - Same as: l 22:00: Ditropan) [place] 00 Pindolol 2016-0 No 2.5 mg, Memori a 8-31 Route: PO, l 22:00: Drug form: [place] 00 TAB, BID, Dosing Weight 68.636, kg, [...] ia 8-31 Same as: l 22:00: Ditropan) [place] Pindolol 2016-0 No 2.5 mg, Memori a 8-31 Route: PO, l 22:00: Drug form: [place] 00 TAB, BID, Dosing Weight 68.636, kg, [...] ia 8-31 Same as: l 22:00: Ditropan) [place] 00 Pindolol 2016-0 No 2.5 mg, Memori a 8-31 Route: PO, l 22:00: Drug form: [place] 00 TAB, BID, Dosing Weight 68.636, kg, [...] CDT oxybutynin 2016-0 No Notes: [facility] 8- Same as: l 22:00: Ditropan) [place] 00 Pindolol 2016-0 No 2.5 mg, Memori a 8-31 Route: PO, l 22:00: Drug form: [place] 00 TAB, BID, Dosing Weight 68.636, kg, [...] ia 8-31 Same as: l 22:00: Ditropan) [place] Pindolol 2016-0 No 2.5 mg, Memori a 8-31 Route: PO, l 22:00: Drug form: [place] 00 TAB, BID, Dosing Weight 68.636, kg, [...] CDT oxybutynin 2016-0 No Notes: [facility] 8- Same as: l 22:00: Ditropan) [place] 00 Pindolol 2016-0 No 2.5 mg, Memori a 8-31 Route: PO, l 22:00: Drug form: [place] 00 TAB, BID, Dosing Weight 68.636, kg, [...] ia 8-31 Same as: l 22:00: Ditropan) [place] Pindolol 2016-0 No 2.5 mg, Memori a 8-31 Route: PO, l 22:00: Drug form: [place] 00 TAB, BID, Dosing Weight 68.636, kg, [...] ia 8-31 Same as: l 22:00: Ditropan) [place] 00 Pindolol 2016-0 No 2.5 mg, Memori a 8-31 Route: PO, l 22:00: Drug form: [place] 00 TAB, BID, Dosing Weight 68.636, kg, [...] CDT oxybutynin 2016-0 No Notes: [facility] 04-24 Same as: l 22:00: Ditropan) [place] 00 Pindolol 2016-0 No 2.5 mg, Memori a 8-31 Route: PO, l 22:00: Drug form: [place] 00 TAB, BID, Dosing Weight 68.636, kg, [...] 8-31 mg tab, l 18:00: 2.5 mg, [place] 00 0.5 tab, Drug form: MISC, Route: PO, BID, 04/24/16 13:00:00 CDT, Duration: 30 day, Stop date: 05/24/16 9:00:00 CDT Midodrine No Notes: Memori a 8-31 (Same l 18:00: as:Proamat [place] 00 ine) pindolol 5 No pindolol 5 M emoria mg tab 8-31 mg tab, l 18:00: 2.5 mg, [place] 00 0.5 tab, Drug form: MISC, Route: PO, BID, 04/24/16 13:00:00 CDT, Duration: 30 day, Stop date: 05/24/16 9:00:00 CDT Midodrine No Notes: [facility]ori a 8-31 (Same l 18:00: as:Proamat [place] 00 ine) pindolol 5 No pindolol 5 M emoria mg tab 8-31 mg tab, l 18:00: 2.5 mg, [place] 00 0.5 tab, Drug form: MISC, Route: PO, BID, 04/24/16 13:00:00 CDT, Duration: 30 day, Stop date: 05/24/16 9:00:00 CDT Midodrine No Notes: [facility]ori a 8-31 (Same l 18:00: as:Proamat [place] 00 ine) pindolol 5 No pindolol 5 M emoria mg tab 8-31 mg tab, l 18:00: 2.5 mg, [place] 00 0.5 tab, Drug form: MISC, Route: PO, BID, 04/24/16 13:00:00 CDT, Duration: 30 day, Stop date: 05/24/16 9:00:00 CDT Midodrine No Notes: Memori a 8-31 (Same l 18:00: as:Proamat [place] 00 ine) pindolol 5 No pindolol 5 M emoria mg tab 8-31 mg tab, l 18:00: 2.5 mg, [place] 00 0.5 tab, Drug form: MISC, Route: PO, BID, 04/24/16 13:00:00 CDT, Duration: 30 day, Stop date: 05/24/16 9:00:00 CDT Midodrine No Notes: Memori a 8-31 (Same l 18:00: as:Proamat [place] 00 ine) pindolol 5 No pindolol 5 M emoria mg tab 8-31 mg tab, l 18:00: 2.5 mg, [place] 00 0.5 tab, Drug form: MISC, Route: PO, BID, 04/24/16 13:00:00 CDT, Duration: 30 day, Stop date: 05/24/16 9:00:00 CDT Midodrine No Notes: Memori a 8-31 (Same l 18:00: as:Proamat [place] 00 ine) pindolol 5 No pindolol 5 M emoria mg tab 8-31 mg tab, l 18:00: 2.5 mg, [place] 00 0.5 tab, Drug form: MISC, Route: PO, BID, 04/24/16 13:00:00 CDT, Duration: 30 day, Stop date: 05/24/16 9:00:00 CDT Midodrine No Notes: [facility] a 8-31 (Same l 18:00: as:Proamat [place] 00 ine) pindolol 5 No pindolol 5 M emoria mg tab 8-31 mg tab, l 18:00: 2.5 mg, [place] 00 0.5 tab, Drug form: MISC, Route: PO, BID, 04/24/16 13:00:00 CDT, Duration: 30 day, Stop date: 05/24/16 9:00:00 CDT Midodrine No Notes: Memori a 8-31 (Same l 18:00: as:Proamat [place] 00 ine) pindolol 5 No pindolol 5 M emoria mg tab 8-31 mg tab, l 18:00: 2.5 mg, [place] 00 0.5 tab, Drug form: MISC, Route: PO, BID, 04/24/16 13:00:00 CDT, Duration: 30 day, Stop date: 05/24/16 9:00:00 CDT Midodrine No Notes: Memori a 8-31 (Same l 18:00: as:Proamat [place] 00 ine) pindolol 5 No pindolol 5 M emoria mg tab 8-31 mg tab, l 18:00: 2.5 mg, [place] 00 0.5 tab, Drug form: MISC, Route: PO, BID, 04/24/16 13:00:00 CDT, Duration: 30 day, Stop date: 05/24/16 9:00:00 CDT Midodrine No Notes: Memori a 8-31 (Same l 18:00: as:Proamat [place] 00 ine) pindolol 5 No pindolol 5 M emoria mg tab 8-31 mg tab, l 18:00: 2.5 mg, [place] 00 0.5 tab, Drug form: MISC, Route: PO, BID, 04/24/16 13:00:00 CDT, Duration: 30 day, Stop date: 05/24/16 9:00:00 CDT Midodrine No Notes: Memori a 8-31 (Same l 18:00: as:Proamat [place] 00 ine) pindolol 5 No pindolol 5 M emoria mg tab 8-31 mg tab, l 18:00: 2.5 mg, [place] 00 0.5 tab, Drug form: MISC, Route: PO, BID, 04/24/16 13:00:00 CDT, Duration: 30 day, Stop date: 05/24/16 9:00:00 CDT Midodrine No Notes: [facility] a 8-31 (Same l 18:00: as:Proamat [place] 00 ine) bisoprolol No Notes: [facility] 8-31 (Same As: l 16:30: Zebeta) [place] 00 2.5 mg = 1/2 x 5 mg tab bisoprolol 2016-0 No Notes: [facility] 8-31 (Same As: l 16:30: Zebeta) [place] 00 2.5 mg = 1/2 x 5 mg tab bisoprolol 2016-0 No Notes: [facility] 8-31 (Same As: l 16:30: Zebeta) [place] 00 2.5 mg = 1/2 x 5 mg tab bisoprolol 2016-0 No Notes: [facility] 8-31 (Same As: l 16:30: Zebeta) [place] 00 2.5 mg = 1/2 x 5 mg tab bisoprolol 2016-0 No Notes: [facility] 8-31 (Same As: l 16:30: Zebeta) [place] 00 2.5 mg = 1/2 x 5 mg tab bisoprolol 2016-0 No Notes: [facility] 8-31 (Same As: l 16:30: Zebeta) [place] 00 2.5 mg = 1/2 x 5 mg tab bisoprolol 2016-0 No Notes: [facility] 8-31 (Same As: l 16:30: Zebeta) [place] 00 2.5 mg = 1/2 x 5 mg tab bisoprolol 2016-0 No Notes: [facility] 8-31 (Same As: l 16:30: Zebeta) [place] 00 2.5 mg = 1/2 x 5 mg tab bisoprolol 2016-0 No Notes: [facility] 8-31 (Same As: l 16:30: Zebeta) [place] 00 2.5 mg = 1/2 x 5 mg tab bisoprolol 2016-0 No Notes: [facility] 8-31 (Same As: l 16:30: Zebeta) [place] 00 2.5 mg = 1/2 x 5 mg tab bisoprolol 2016-0 No Notes: [facility] 8-31 (Same As: l 16:30: Zebeta) [place] 00 2.5 mg = 1/2 x 5 mg tab bisoprolol 2016-0 No Notes: [facility] 8-31 (Same As: l 16:30: Zebeta) [place] 00 2.5 mg = 1/2 x 5 mg tab Keflex 0 No Notes: [facility] 8-31 Take on l 14:00: empty [place] 00 stomach. (Same As: Keflex) Vitamin D3 2016-0 No Notes: [facility] 04-24 Same as : l 14:00: Vitamin D3 Folic Acid No 0.8 mg, 2 Me moria 04-24 tab, l 14:00: Route: PO, [place] Drug form: TAB, Daily, Dosing Weight 68.636, [...] 04-24 Route: PO, l 14:00: Drug form: [place] 00 TAB, Daily, Dosing Weight 68.636, kg, Start date: 04/24/16 9:00:00 CDT, Duration: 30 day, Stop date: 05/23/16 9:00:00 CDT Potassium No 10 mEq, 1 [facility] Chloride 10 04-24 tab, l MEQ 14:00: Route: PO, [place] Extended 00 Drug form: Release ERTAB, Tablet [...] moria 8-31 tab, l 14:00: Route: PO, [place] 00 Drug form: TAB, Daily, Dosing Weight [...] 04-24 Route: PO, l 14:00: Drug form: [place] 00 TAB, Daily, Dosing Weight 68.636, kg, Start date: 04/24/16 9:00:00 CDT, Duration: 30 day, Stop date: 05/23/16 9:00:00 CDT Potassium 2015-0 No 10 mEq, 1 [facility] Chloride 10 04-24 tab, l MEQ 14:00: Route: PO, [place] Extended 00 Drug form: Release ERTAB, Tablet Daily, Dosing Weight 68.636, kg, Start date: 04/24/16 9:00:00 CDT, Duration: 30 day, Stop date: 05/23/16 9:00:00 CDT Keflex 0 No Notes: [facility] 8-31 Take on l 14:00: empty stomach. (Same As: Keflex) Vitamin D3 No Notes: [facility] 8 Same as : l 14:00: Vitamin D3 Folic Acid No 0.8 mg, 2 Me moria 8-31 tab, l 14:00: Route: PO, [place] 00 Drug form: TAB, Daily, Dosing Weight [...] 04-24 25 mg l tablet 14:00: tablet, [place] 00 0.5 tab, Drug form: MISC, Route: PO, Daily, 04/24/16 9:00:00 CDT, Duration: 30 day, Stop date: 05/23/16 9:00:00 CDT Sertraline No 12.5 mg, [facility] 04-24 Route: PO, l 14:00: Drug form: [place] 00 TAB, Daily, Dosing Weight 68.636, kg, Start date: 04/24/16 9:00:00 CDT, Duration: 30 day, Stop date: 05/23/16 9:00:00 CDT Potassium No 10 mEq, 1 [facility] Chloride 10 04-24 tab, l MEQ 14:00: Route: PO, [place] Extended 00 Drug form: Release ERTAB, Tablet [...] moria 04-24 tab, l 14:00: Route: PO, Kevin Drug form: TAB, Daily, Dosing Weight 68.636, [...] 04-24 25 mg l tablet 14:00: tablet, [place] 00 0.5 tab, Drug form: MISC, Route: PO, Daily, 04/24/16 9:00:00 CDT, Duration: 30 day, Stop date: 05/23/16 9:00:00 CDT Sertraline No 12.5 mg, [facility] 04-24 Route: PO, l 14:00: Drug form: [place] 00 TAB, Daily, Dosing Weight 68.636, kg, Start date: 04/24/16 9:00:00 CDT, Duration: 30 day, Stop date: 05/23/16 9:00:00 CDT Potassium No 10 mEq, 1 [facility] Chloride 10 04-24 tab, l MEQ 14:00: Route: PO, [place] Extended 00 Drug form: Release ERTAB, Tablet [...] moria 04-24 tab, l 14:00: Route: PO, [place] Drug form: TAB, Daily, Dosing Weight 68.636, [...] 04-24 25 mg l tablet 14:00: tablet, [place] 00 0.5 tab, Drug form: MISC, Route: PO, Daily, 04/24/16 9:00:00 CDT, Duration: 30 day, Stop date: 05/23/16 9:00:00 CDT Sertraline No 12.5 mg, [facility] 04-24 Route: PO, l 14:00: Drug form: [place] 00 TAB, Daily, Dosing Weight 68.636, kg, Start date: 04/24/16 9:00:00 CDT, Duration: 30 day, Stop date: 05/23/16 9:00:00 CDT Potassium No 10 mEq, 1 [facility] Chloride 10 04-24 tab, l MEQ 14:00: Route: PO, [place] Extended 00 Drug form: Release ERTAB, Tablet Daily, Dosing Weight 68.636, kg, Start date: 04/24/16 9:00:00 CDT, Duration: 30 day, Stop date: 05/23/16 9:00:00 CDT Keflex No Notes: [facility] 04-24 Take on l 14:00: empty [place] stomach. (Same As: Keflex) Vitamin D3 No Notes: [facility] 04-24 Same as : l 14:00: Vitamin D3 [place] 00 Folic Acid No 0.8 mg, 2 Me moria 04-24 tab, l 14:00: Route: PO, Kevin Drug form: TAB, Daily, Dosing Weight 68.636, [...] 04-24 25 mg l tablet 14:00: tablet, [place] 00 0.5 tab, Drug form: MISC, Route: PO, Daily, 04/24/16 9:00:00 CDT, Duration: 30 day, Stop date: 05/23/16 9:00:00 CDT Sertraline No 12.5 mg, [facility] 04-24 Route: PO, l 14:00: Drug form: [place] 00 TAB, Daily, Dosing Weight 68.636, kg, Start date: 04/24/16 9:00:00 CDT, Duration: 30 day, Stop date: 05/23/16 9:00:00 CDT Potassium No 10 mEq, 1 [facility] Chloride 10 04-24 tab, l MEQ 14:00: Route: PO, [place] Extended 00 Drug form: Release ERTAB, Tablet Daily, Dosing Weight 68.636, kg, Start date: 04/24/16 9:00:00 CDT, Duration: 30 day, Stop date: 05/23/16 9:00:00 CDT Keflex No Notes: [facility] 04-24 Take on l 14:00: empty [place] 00 stomach. (Same As: Keflex) Vitamin D3 No Notes: [facility] 04-24 Same as : l 14:00: Vitamin D3 Folic Acid No 0.8 mg, 2 Me moria 04-24 tab, l 14:00: Route: PO, [place] Drug form: TAB, Daily, Dosing Weight 68.636, [...] 04-24 25 mg l tablet 14:00: tablet, [place] 00 0.5 tab, Drug form: MISC, Route: PO, Daily, 04/24/16 9:00:00 CDT, Duration: 30 day, Stop date: 05/23/16 9:00:00 CDT Sertraline No 12.5 mg, [facility] 04-24 Route: PO, l 14:00: Drug form: [place] 00 TAB, Daily, Dosing Weight 68.636, kg, Start date: 04/24/16 9:00:00 CDT, Duration: 30 day, Stop date: 05/23/16 9:00:00 CDT Potassium No 10 mEq, 1 [facility] Chloride 10 04-24 tab, l MEQ 14:00: Route: PO, [place] Extended 00 Drug form: Release ERTAB, Tablet [...] moria 04-24 tab, l 14:00: Route: PO, [place] 00 Drug form: TAB, Daily, Dosing Weight [...] 25 mg - 25 mg l tablet 14:00: tablet, [place] 00 0.5 tab, Drug form: MISC, Route: PO, Daily, 04/24/16 9:00:00 CDT, Duration: 30 day, Stop date: 05/23/16 9:00:00 CDT Sertraline No 12.5 mg, [facility] 04-24 Route: PO, l 14:00: Drug form: [place] 00 TAB, Daily, Dosing Weight 68.636, kg, Start date: 04/24/16 9:00:00 CDT, Duration: 30 day, Stop date: 05/23/16 9:00:00 CDT Potassium No 10 mEq, 1 [facility] Chloride 10 04-24 tab, l MEQ 14:00: Route: PO, [place] Extended 00 Drug form: Release ERTAB, Tablet [...] moria 04-24 tab, l 14:00: Route: PO, [place] 00 Drug form: TAB, Daily, Dosing Weight [...] 04-24 25 mg l tablet 14:00: tablet, [place] 00 0.5 tab, Drug form: MISC, Route: PO, Daily, 04/24/16 9:00:00 CDT, Duration: 30 day, Stop date: 05/23/16 9:00:00 CDT Sertraline No 12.5 mg, [facility] 8 Route: PO, l 14:00: Drug form: [place] 00 TAB, Daily, Dosing Weight 68.636, kg, Start date: 04/24/16 9:00:00 CDT, Duration: 30 day, Stop date: 05/23/16 9:00:00 CDT Potassium No 10 mEq, 1 [facility] Chloride 10 04-24 tab, l MEQ 14:00: Route: PO, [place] Extended 00 Drug form: Release ERTAB, Tablet Daily, Dosing Weight 68.636, kg, Start date: 04/24/16 9:00:00 CDT, Duration: 30 day, Stop date: 05/23/16 9:00:00 CDT Keflex No Notes: [facility] 04-24 Take on l 14:00: empty [place] stomach. (Same As: Keflex) Vitamin D3 No Notes: [facility] 04-24 Same as : l 14:00: Vitamin D3 Folic Acid No 0.8 mg, 2 Me moria 04-24 tab, l 14:00: Route: PO, [place] 00 Drug form: TAB, Daily, Dosing Weight [...] Sertraline No Sertraline M emoria 25 mg 8-31 25 mg l tablet 14:00: tablet, [place] 00 0.5 tab, Drug form: MISC, Route: PO, Daily, 04/24/16 9:00:00 CDT, Duration: 30 day, Stop date: 05/23/16 9:00:00 CDT Sertraline No 12.5 mg, [facility] 8 Route: PO, l 14:00: Drug form: [place] 00 TAB, Daily, Dosing Weight 68.636, kg, Start date: 04/24/16 9:00:00 CDT, Duration: 30 day, Stop date: 05/23/16 9:00:00 CDT Potassium No 10 mEq, 1 [facility] Chloride 10 04-24 tab, l MEQ 14:00: Route: PO, [place] Extended 00 Drug form: Release ERTAB, Tablet Daily, Dosing Weight 68.636, kg, Start date: 04/24/16 9:00:00 CDT, Duration: 30 day, Stop date: 05/23/16 9:00:00 CDT Keflex No Notes: [facility] 04-24 Take on l 14:00: empty [place] 00 stomach. (Same As: Keflex) Vitamin D3 No Notes: [facility] 04-24 Same as : l 14:00: Vitamin D3 Folic Acid No 0.8 mg, 2 Me moria 04-24 tab, l 14:00: Route: PO, [place] 00 Drug form: TAB, Daily, Dosing Weight [...] Sertraline No Sertraline M emoria 25 mg 8-31 25 mg l tablet 14:00: tablet, [place] 00 0.5 tab, Drug form: MISC, Route: PO, Daily, 04/24/16 9:00:00 CDT, Duration: 30 day, Stop date: 05/23/16 9:00:00 CDT Sertraline No 12.5 mg, [facility] 31 Route: PO, l 14:00: Drug form: [place] 00 TAB, Daily, Dosing Weight 68.636, kg, Start date: 04/24/16 9:00:00 CDT, Duration: 30 day, Stop date: 05/23/16 9:00:00 CDT Potassium No 10 mEq, 1 [facility] Chloride 10 04-24 tab, l MEQ 14:00: Route: PO, [place] Extended 00 Drug form: Release ERTAB, Tablet Daily, Dosing Weight 68.636, kg, Start date: 04/24/16 9:00:00 CDT, Duration: 30 day, Stop date: 05/23/16 9:00:00 CDT Keflex No Notes: [facility] - Take on l 14:00: empty [place] stomach. (Same As: Keflex) Vitamin D3 No Notes: [facility] 04-24 Same as : l 14:00: Vitamin D3 [place] Folic Acid No 0.8 mg, 2 Me moria 04-24 tab, l 14:00: Route: PO, [place] 00 Drug form: TAB, Daily, Dosing Weight [...] Sertraline No Sertraline M emoria 25 mg 8-31 25 mg l tablet 14:00: tablet, [place] 00 0.5 tab, Drug form: MISC, Route: PO, Daily, 04/24/16 9:00:00 CDT, Duration: 30 day, Stop date: 05/23/16 9:00:00 CDT Sertraline No 12.5 mg, Mem oria 04-24 Route: PO, l 14:00: Drug form: [place] 00 TAB, Daily, Dosing Weight 68.636, kg, Start date: 04/24/16 9:00:00 CDT, Duration: 30 day, Stop date: 05/23/16 9:00:00 CDT Potassium No 10 mEq, 1 Mem oria Chloride 10 04-24 tab, l MEQ 14:00: Route: PO, [place] Extended Drug form: Release ERTAB, Tablet Daily, Dosing Weight 68.636, kg, Start date: 04/24/16 9:00:00 CDT, Duration: 30 day, Stop date: 05/23/16 9:00:00 CDT Mag-Ox 400 No Notes: Memor ia 04-24 (Same as: l 11:53: [facility]-Ox [place] 400) Magnesium oxide 611lx=145z g elemental magnesium Dose=____m g magnesium oxide (___mg elemental magnesium) Mag-Ox 400 No Notes: Memor ia 04-24 (Same as: l 11:53: Mag-Ox [place] 400) Magnesium oxide 634qq=116y g elemental magnesium Dose=____m g magnesium oxide (___mg elemental magnesium) Mag-Ox 400 No Notes: Memor ia 04-24 (Same as: l 11:53: Mag-Ox [place] 400) Magnesium oxide 986gs=615f g elemental magnesium Dose=____m g magnesium oxide (___mg elemental magnesium) Mag-Ox 400 No Notes: Memor ia 04-24 (Same as: l 11:53: Mag-Ox [place] 400) Magnesium oxide 819nc=989a g elemental magnesium Dose=____m g magnesium oxide (___mg elemental magnesium) Mag-Ox 400 No Notes: Memor ia 04-24 (Same as: l 11:53: Mag-Ox [place] 400) Magnesium oxide 773sv=271q g elemental magnesium Dose=____m g magnesium oxide (___mg elemental magnesium) Mag-Ox 400 No Notes: Memor ia 04-24 (Same as: l 11:53: [facility]-Ox [place] 400) Magnesium oxide 827mp=881p g elemental magnesium Dose=____m g magnesium oxide (___mg elemental magnesium) Mag-Ox 400 No Notes: Memor ia 04-24 (Same as: l 11:53: [facility]-Ox [place] 400) Magnesium oxide 450tl=159f g elemental magnesium Dose=____m g magnesium oxide (___mg elemental magnesium) Mag-Ox 400 No Notes: Memor ia 04-24 (Same as: l 11:53: [facility] 400) Magnesium oxide 173lv=761l g elemental magnesium Dose=____m g magnesium oxide (___mg elemental magnesium) Mag-Ox 400 No Notes: Memor ia 04-24 (Same as: l 11:53: [facility] 400) Magnesium oxide 913bl=856i g elemental magnesium Dose=____m g magnesium oxide (___mg elemental magnesium) Mag-Ox 400 No Notes: Memor ia 04-24 (Same as: l 11:53: [facility]- [place] 00 400) Magnesium oxide 924fm=265s g elemental magnesium Dose=____m g magnesium oxide (___mg elemental magnesium) Mag-Ox 400 No Notes: Memor ia 04-24 (Same as: l 11:53: [facility] 400) Magnesium oxide 311ok=330w g elemental magnesium Dose=____m g magnesium oxide (___mg elemental magnesium) Mag-Ox 400 No Notes: Memor ia 04-24 (Same as: l 11:53: [facility]-Ox [place] 400) Magnesium oxide 467md=696g g elemental magnesium Dose=____m g magnesium oxide (___mg elemental magnesium) Hydralazine No Notes: Arturo sony 04-23 (Same as: l 09:51: [facility] ) Push over 5 minutes Hydralazine No Notes: Arturo sony -30 (Same as: l 09:51: [facility] [place] ) Push over 5 minutes Hydralazine 2016-0 No Notes: Arturo sony 8-30 (Same as: l 09:51: [facility] [place] ) Push over 5 minutes Hydralazine 2016-0 No Notes: Arturo sony 8-30 (Same as: l 09:51: [facility] [place] ) Push over 5 minutes Hydralazine 2016-0 No Notes: Arturo sony 8-30 (Same as: l 09:51: [facility] [place] ) Push over 5 minutes Hydralazine 2016-0 No Notes: Arturo sony 8-30 (Same as: l 09:51: [facility] [place] ) Push over 5 minutes Hydralazine 2016-0 No Notes: Arturo sony 8-30 (Same as: l 09:51: [facility] [place] ) Push over 5 minutes Hydralazine 2016-0 No Notes: Arturo soyn 8-30 (Same as: l 09:51: [facility] [place] ) Push over 5 minutes Hydralazine 2016-0 No Notes: Arturo sony 8-30 (Same as: l 09:51: [facility] [place] ) Push over 5 minutes Hydralazine 2016-0 No Notes: Arturo sony 8-30 (Same as: l 09:51: [facility] [place] ) Push over 5 minutes Hydralazine 2016-0 No Notes: Arturo sony 8-30 (Same as: l 09:51: [facility] [place] ) Push over 5 minutes Hydralazine 2016-0 No Notes: Arturo sony 8-30 (Same as: l 09:51: [facility] [place] ) Push over 5 minutes hydrALAZINE 2016-0 No Notes: Arturo sony 8-30 (Same as: l 08:32: [facility] [place] ) Push over 5 minutes hydrALAZINE 2016-0 No Notes: Arturo sony 8-30 (Same as: l 08:32: [facility] [place] ) Push over 5 minutes hydrALAZINE 2016-0 No Notes: Arturo sony 8-30 (Same as: l 08:32: [facility] [place] ) Push over 5 minutes hydrALAZINE 2016-0 No Notes: Arturo sony 8-30 (Same as: l 08:32: [facility] [place] 00 ) Push over 5 minutes hydrALAZINE 2016-0 No Notes: Arturo sony 8-30 (Same as: l 08:32: [facility] [place] 00 ) Push over 5 minutes hydrALAZINE 2016-0 No Notes: Arturo sony 8-30 (Same as: l 08:32: [facility] [place] 00 ) Push over 5 minutes hydrALAZINE 2016-0 No Notes: Arturo sony 8-30 (Same as: l 08:32: [facility] [place] 00 ) Push over 5 minutes hydrALAZINE 2016-0 No Notes: Arturo sony 8-30 (Same as: l 08:32: [facility] [place] 00 ) Push over 5 minutes hydrALAZINE 2016-0 No Notes: Arturo sony 8-30 (Same as: l 08:32: [facility] [place] 00 ) Push over 5 minutes hydrALAZINE 2016-0 No Notes: Arturo sony 8-30 (Same as: l 08:32: [facility] [place] ) Push over 5 minutes hydrALAZINE 2016-0 No Notes: Arturo sony 8-30 (Same as: l 08:32: [facility] [place] ) Push over 5 minutes hydrALAZINE 2016-0 No Notes: Arturo sony 8-30 (Same as: l 08:32: [facility] [place] 00 ) Push over 5 minutes Hydralazine 2016-0 No Notes: Arturo sony 8-30 (Same as: l 08:09: [facility] [place] ) Push over 5 minutes Hydralazine 2016-0 No Notes: Arturo sony 8-30 (Same as: l 08:09: [facility] [place] ) Push over 5 minutes Hydralazine 2016-0 No Notes: Arturo sony 8-30 (Same as: l 08:09: [facility] [place] 00 ) Push over 5 minutes Hydralazine 2016-0 No Notes: Arturo sony 8-30 (Same as: l 08:09: [facility] [place] ) Push over 5 minutes Hydralazine 2016-0 No Notes: Arturo sony 8-30 (Same as: l 08:09: [facility] [place] 00 ) Push over 5 minutes Hydralazine 2016-0 No Notes: Arturo sony 8-30 (Same as: l 08:09: [facility] [place] 00 ) Push over 5 minutes Hydralazine 2016-0 No Notes: Arturo sony 8-30 (Same as: l 08:09: [facility] [place] 00 ) Push over 5 minutes Hydralazine 2016-0 No Notes: Arturo sony 8-30 (Same as: l 08:09: [facility] [place] ) Push over 5 minutes Hydralazine 2016-0 No Notes: Arturo sony 8-30 (Same as: l 08:09: [facility] [place] ) Push over 5 minutes Hydralazine 2016-0 No Notes: Arturo sony 8-30 (Same as: l 08:09: [facility] [place] 00 ) Push over 5 minutes Hydralazine 2016-0 No Notes: Arturo sony 8-30 (Same as: l 08:09: [facility] [place] 00 ) Push over 5 minutes Hydralazine 2016-0 No Notes: Arturo sony 8-30 (Same as: l 08:09: [facility] [place] 00 ) Push over 5 minutes Ramipril 2016-0 No Notes: Memoria 8-30 (Same l 07:08: as:Altace) [place] Ramipril 2015-0 No Notes: Memoria 8-30 (Same l 07:08: as:Altace) [place] Ramipril 2015-0 No Notes: Memoria 8-30 (Same l 07:08: as:Altace) [place] Ramipril 2015-0 No Notes: Memoria 8-30 (Same l 07:08: as:Altace) [place] Ramipril 2015-0 No Notes: Memoria 8-30 (Same l 07:08: as:Altace) [place] Ramipril 2015-0 No Notes: Memoria 8-30 (Same l 07:08: as:Altace) [place] Ramipril 2015-0 No Notes: Memoria 8-30 (Same l 07:08: as:Altace) [place] Ramipril 2015-0 No Notes: Memoria 8-30 (Same l 07:08: as:Altace) [place] Ramipril 2015-0 No Notes: Memoria 8-30 (Same l 07:08: as:Altace) [place] Ramipril No Notes: Memoria 8-30 (Same l 07:08: as:Altace) Ramipril No Notes: Memoria 8-30 (Same l 07:08: as:Altace) Ramipril No Notes: Memoria 8-30 (Same l 07:08: as:Altace) 24 HR No Notes: Memoria Nifedipine 8-30 [...] a 8-29 Take 1 l 14:10: hour [place] 00 before or 2 hours after meal; Enteral feeds may interefere with the absorption of this medication . (Same as:Synthro id, Levothroid ) Synthroid No Notes: Memori a 8-29 Take 1 l 14:10: hour [place] 00 before or 2 hours after meal; Enteral feeds may interefere with the absorption of this medication . (Same as:Synthro id, Levothroid ) Synthroid No Notes: Memori a 8-29 Take 1 l 14:10: hour [place] 00 before or 2 hours after meal; Enteral feeds may interefere with the absorption of this medication . (Same as:Synthro id, Levothroid ) Synthroid No Notes: Memori a 8-29 Take 1 l 14:10: hour [place] 00 before or 2 hours after meal; Enteral feeds may interefere with the absorption of this medication . (Same as:Synthro id, Levothroid ) Synthroid No Notes: Memori a 8-29 Take 1 l 14:10: hour [place] 00 before or 2 hours after meal; Enteral feeds may interefere with the absorption of this medication . (Same as:Synthro id, Levothroid ) Synthroid No Notes: Memori a 8-29 Take 1 l 14:10: hour [place] 00 before or 2 hours after meal; Enteral feeds may interefere with the absorption of this medication . (Same as:Synthro id, Levothroid ) Synthroid No Notes: Memori a 8-29 Take 1 l 14:10: hour [place] 00 before or 2 hours after meal; Enteral feeds may interefere with the absorption of this medication . (Same as:Synthro id, Levothroid ) Synthroid No Notes: Memori a 8-29 Take 1 l 14:10: hour [place] 00 before or 2 hours after meal; Enteral feeds may interefere with the absorption of this medication . (Same as:Synthro id, Levothroid ) Synthroid No Notes: Memori a 8-29 Take 1 l 14:10: hour [place] 00 before or 2 hours after meal; Enteral feeds may interefere with the absorption of this medication . (Same as:Synthro id, Levothroid ) Synthroid No Notes: Memori a 8-29 Take 1 l 14:10: hour [place] 00 before or 2 hours after meal; Enteral feeds may interefere with the absorption of this medication . (Same as:Synthro id, Levothroid ) Synthroid No Notes: Memori a 8-29 Take 1 l 14:10: hour [place] 00 before or 2 hours after meal; Enteral feeds may interefere with the absorption of this medication . (Same as:Synthro id, Levothroid ) Synthroid No Notes: Memori a 8-29 Take 1 l 14:10: hour [place] 00 before or 2 hours after meal; Enteral feeds may interefere with the absorption of this medication . (Same as:Synthro id, Levothroid ) Aspirin No Notes: (Do Arturo sony 8-29 Not Crush) l 14:00: Do not [place] 00 crush or chew. Aspirin No Notes: (Do Arturo sony 8-29 Not Crush) l 14:00: Do not [place] 00 crush or chew. Aspirin No Notes: (Do Arturo sony 8-29 Not Crush) l 14:00: Do not [place] 00 crush or chew. Aspirin No Notes: (Do Arturo sony 8-29 Not Crush) l 14:00: Do not [place] 00 crush or chew. Aspirin 0 No Notes: (Do Arturo sony 8-29 Not Crush) l 14:00: Do not [place] 00 crush or chew. Aspirin No Notes: (Do Arturo sony 8-29 Not Crush) l 14:00: Do not [place] 00 crush or chew. Aspirin 0 No Notes: (Do Arturo sony 8-29 Not Crush) l 14:00: Do not [place] 00 crush or chew. Aspirin 0 No Notes: (Do Arturo sony 8-29 Not Crush) l 14:00: Do not [place] 00 crush or chew. Aspirin 0 No Notes: (Do Arturo sony 8-29 Not Crush) l 14:00: Do not [place] 00 crush or chew. Aspirin 0 No Notes: (Do Arturo sony 8-29 Not Crush) l 14:00: Do not [place] 00 crush or chew. Aspirin No Notes: (Do Arturo sony 8-29 Not Crush) l 14:00: Do not [place] 00 crush or chew. Aspirin No Notes: (Do Arturo sony 8-29 Not Crush) l 14:00: Do not [place] 00 crush or chew. Thyroxine No Notes: Memori a 8-29 Take 1 l 11:30: hour [place] 00 before or 2 hours after meal; Enteral feeds may interefere with the absorption of this medication . (Same as:Synthro id, Levothroid ) Thyroxine No Notes: Memori a 8-29 Take 1 l 11:30: hour [place] 00 before or 2 hours after meal; Enteral feeds may interefere with the absorption of this medication . (Same as:Synthro id, Levothroid ) Thyroxine No Notes: Memori a 8-29 Take 1 l 11:30: hour [place] 00 before or 2 hours after meal; Enteral feeds may interefere with the absorption of this medication . (Same as:Synthro id, Levothroid ) Thyroxine No Notes: Memori a 8-29 Take 1 l 11:30: hour [place] 00 before or 2 hours after meal; Enteral feeds may interefere with the absorption of this medication . (Same as:Synthro id, Levothroid ) Thyroxine No Notes: Memori a 8-29 Take 1 l 11:30: hour [place] 00 before or 2 hours after meal; Enteral feeds may interefere with the absorption of this medication . (Same as:Synthro id, Levothroid ) Thyroxine No Notes: Memori a 8-29 Take 1 l 11:30: hour [place] 00 before or 2 hours after meal; Enteral feeds may interefere with the absorption of this medication . (Same as:Synthro id, Levothroid ) Thyroxine No Notes: Memori a 8-29 Take 1 l 11:30: hour [place] 00 before or 2 hours after meal; Enteral feeds may interefere with the absorption of this medication . (Same as:Synthro id, Levothroid ) Thyroxine No Notes: Memori a 8-29 Take 1 l 11:30: hour [place] 00 before or 2 hours after meal; Enteral feeds may interefere with the absorption of this medication . (Same as:Synthro id, Levothroid ) Thyroxine No Notes: Memori a 8-29 Take 1 l 11:30: hour [place] 00 before or 2 hours after meal; Enteral feeds may interefere with the absorption of this medication . (Same as:Synthro id, Levothroid ) Thyroxine No Notes: Memori a 8-29 Take 1 l 11:30: hour [place] 00 before or 2 hours after meal; Enteral feeds may interefere with the absorption of this medication . (Same as:Synthro id, Levothroid ) Thyroxine No Notes: Memori a 8-29 Take 1 l 11:30: hour [place] 00 before or 2 hours after meal; Enteral feeds may interefere with the absorption of this medication . (Same as:Synthro id, Levothroid ) Thyroxine No Notes: Memori a 8-29 Take 1 l 11:30: hour [place] 00 before or 2 hours after meal; Enteral feeds may interefere with the absorption of this medication . (Same as:Synthro id, Levothroid ) heparin No Notes: Memoria 8-29 porcine l 05:00: heparin [place] 00 heparin No Notes: Memoria 8-29 porcine l 05:00: heparin [place] 00 heparin No Notes: Memoria 8-29 porcine l 05:00: heparin [place] 00 heparin No Notes: Memoria 8-29 porcine l 05:00: heparin [place] 00 heparin No Notes: Memoria 8-29 porcine l 05:00: heparin [place] 00 heparin No Notes: Memoria 8-29 porcine l 05:00: heparin [place] 00 heparin No Notes: Memoria 8-29 porcine l 05:00: heparin [place] 00 heparin No Notes: Memoria 8-29 porcine l 05:00: heparin [place] 00 heparin No Notes: Memoria 8-29 porcine l 05:00: heparin [place] 00 heparin No Notes: Memoria 8-29 porcine l 05:00: heparin [place] 00 heparin No Notes: Memoria 8-29 porcine l 05:00: heparin [place] 00 heparin No Notes: Memoria 8-29 porcine l 05:00: heparin [place] 00 Ramipril No Notes: Memoria 8-29 (Same l 03:10: as:Altace) [place] 00 Ramipril No Notes: Memoria 8-29 (Same l 03:10: as:Altace) [place] 00 Ramipril No Notes: Memoria 8-29 (Same l 03:10: as:Altace) Ramipril No Notes: Memoria 8-29 (Same l 03:10: as:Altace) [place] 00 Ramipril No Notes: Memoria 8-29 (Same l 03:10: as:Altace) [place] 00 Ramipril No Notes: Memoria 8-29 (Same l 03:10: as:Altace) Ramipril No Notes: Memoria 8-29 (Same l 03:10: as:Altace) Ramipril No Notes: Memoria 8-29 (Same l 03:10: as:Altace) [place] 00 Ramipril No Notes: Memoria 8-29 (Same l 03:10: as:Altace) [place] 00 Ramipril No Notes: Memoria 8-29 (Same l 03:10: as:Altace) [place] 00 Ramipril No Notes: Memoria 8-29 (Same l 03:10: as:Altace) [place] 00 Ramipril No Notes: Memoria 8-29 (Same l 03:10: as:Altace) Phenergan No Notes: Memori a 8-29 (Same as: l 02:37: Phenergan) [place] 6.25 mg = 1/2 x 12.5 mg TAB Phenergan No Notes: Memori a 8-29 (Same as: l 02:37: Phenergan) [place] 00 6.25 mg = 1/2 x 12.5 mg TAB Phenergan No Notes: Memori a 8-29 (Same as: l 02:37: Phenergan) [place] 00 6.25 mg = 1/2 x 12.5 mg TAB Phenergan No Notes: Memori a 8-29 (Same as: l 02:37: Phenergan) [place] 00 6.25 mg = 1/2 x 12.5 mg TAB Phenergan No Notes: Memori a 8-29 (Same as: l 02:37: Phenergan) [place] 00 6.25 mg = 1/2 x 12.5 mg TAB Phenergan No Notes: Memori a 8-29 (Same as: l 02:37: Phenergan) [place] 00 6.25 mg = 1/2 x 12.5 mg TAB Phenergan No Notes: Memori a 8-29 (Same as: l 02:37: Phenergan) [place] 00 6.25 mg = 1/2 x 12.5 mg TAB Phenergan No Notes: Memori a 8-29 (Same as: l 02:37: Phenergan) [place] 00 6.25 mg = 1/2 x 12.5 mg TAB Phenergan No Notes: Memori a 8-29 (Same as: l 02:37: Phenergan) [place] 00 6.25 mg = 1/2 x 12.5 mg TAB Phenergan No Notes: Memori a 8-29 (Same as: l 02:37: Phenergan) [place] 00 6.25 mg = 1/2 x 12.5 mg TAB Phenergan No Notes: Memori a 8-29 (Same as: l 02:37: Phenergan) [place] 00 6.25 mg = 1/2 x 12.5 mg TAB Phenergan No Notes: Memori a 8-29 (Same as: l 02:37: Phenergan) [place] 00 6.25 mg = 1/2 x 12.5 [...] tab, PO, l tablet 02:36: Daily, 0 [place] 00 Refill(s) Cephalexin Yes 500 mg = 1 M emoria 500 MG Oral 04-22 cap, PO, l Capsule 02:36: Daily, # [place] [Keflex] 00 40 cap, 0 Refill(s) sertraline Yes See Memoria 25 mg oral 04-22 Instructio l tablet 02:36: ns, 0.5 [place] 00 tab PO Daily 30 day, 1 Refill(s) Aspirin 325 Yes 325 mg = 1 Memoria MG Oral -29 tab, PO, l Tablet 02:36: Daily, # [place] 00 30 tab, 0 Refill(s) potassium Yes 15 mEq = 1 Me moria citrate 15 - tab, PO, l MEQ 02:36: Daily, 0 [place] Extended 00 Refill(s) Release Tablet [Urocit-K] Probiotic Yes 1 cap, PO, Me moria Formula 04-22 Daily, 0 l oral 02:36: Refill(s) [place] capsule 00 24 HR No 30 mg = 1 Mem[facility] Nifedipine -29 tab, PO, l 30 MG 02:36: PRN, # 30 [place] Extended 00 tab, 0 Release Refill(s) Tablet [...] tab, PO, l tablet 02:36: Daily, 0 [place] 00 Refill(s) Cephalexin Yes 500 mg = 1 M emoria 500 MG Oral 8-29 cap, PO, l Capsule 02:36: Daily, # [place] [Keflex] 00 40 cap, 0 Refill(s) sertraline Yes See [facility] 25 mg oral 8-29 Instructio l tablet 02:36: ns, 0.5 [place] 00 tab PO Daily 30 day, 1 Refill(s) Aspirin 325 Yes 325 mg = 1 Memoria MG Oral 8-29 tab, PO, l Tablet 02:36: Daily, # [place] 00 30 tab, 0 Refill(s) potassium Yes 15 mEq = 1 Me moria citrate 15 8-29 tab, PO, l MEQ 02:36: Daily, 0 [place] Extended 00 Refill(s) Release Tablet [Urocit-K] Probiotic Yes 1 cap, PO, Me moria Formula 8-29 Daily, 0 l oral 02:36: Refill(s) [place] capsule 00 24 HR No 30 mg = 1 [facility] Nifedipine 8-29 tab, PO, l 30 MG 02:36: PRN, # 30 [place] Extended 00 tab, 0 Release Refill(s) Tablet [...] tab, PO, l tablet 02:36: Daily, 0 [place] 00 Refill(s) Cephalexin Yes 500 mg = 1 M emoria 500 MG Oral 04-22 cap, PO, l Capsule 02:36: Daily, # [place] [Keflex] 00 40 cap, 0 Refill(s) sertraline Yes See [facility] 25 mg oral 04-22 Instructio l tablet 02:36: ns, 0.5 [place] 00 tab PO Daily 30 day, 1 Refill(s) Aspirin 325 Yes 325 mg = 1 Memoria MG Oral 04-22 tab, PO, l Tablet 02:36: Daily, # [place] 00 30 tab, 0 Refill(s) potassium Yes 15 mEq = 1 Me moria citrate 15 - tab, PO, l MEQ 02:36: Daily, 0 [place] Extended 00 Refill(s) Release Tablet [Urocit-K] Probiotic Yes 1 cap, PO, Me moria Formula 04-22 Daily, 0 l oral 02:36: Refill(s) [place] capsule 00 24 HR No 30 mg = 1 [facility] Nifedipine 8- tab, PO, l 30 MG 02:36: PRN, # 30 [place] Extended 00 tab, 0 Release Refill(s) Tablet [...] tab, PO, l tablet 02:36: Daily, 0 [place] 00 Refill(s) Cephalexin Yes 500 mg = 1 M emoria 500 MG Oral 04-22 cap, PO, l Capsule 02:36: Daily, # [place] [Keflex] 00 40 cap, 0 Refill(s) sertraline Yes See [facility] 25 mg oral 04-22 Instructio l tablet 02:36: ns, 0.5 [place] 00 tab PO Daily 30 day, 1 Refill(s) Aspirin 325 Yes 325 mg = 1 [facility]oria MG Oral 04-22 tab, PO, l Tablet 02:36: Daily, # [place] 00 30 tab, 0 Refill(s) potassium Yes 15 mEq = 1 Me mor[place] citrate 15 -29 tab, PO, l MEQ 02:36: Daily, 0 [place] Extended 00 Refill(s) Release Tablet [Urocit-K] Probiotic Yes 1 cap, PO, Me moria Formula - Daily, 0 l oral 02:36: Refill(s) [place] capsule 00 24 HR No 30 mg = 1 [facility] Nifedipine 8-29 tab, PO, l 30 MG 02:36: PRN, # 30 [place] Extended 00 tab, 0 Release Refill(s) Tablet magnesium Yes 500 mg = 1 Me moria oxide 500 - tab, PO, l mg oral 02:36: Daily, # [place] tablet 00 10 tab, 0 Refill(s) ramipril 5 2016 No 5 mg = 1 Mem oria mg oral 04-22 cap, PO, l capsule 02:36: PRN, # 30 [place] nn 00 cap, 1 Refill(s) Triamcinolo Yes 1 appl, Mem oria ne 04-22 TOP, TID, l Acetonide 02:36: # 15 gm, 0 [place] 0.001 MG/MG 00 Refill(s) Topical Ointment oxybutynin Yes 5 mg = 1 Mem o[facility] 5 mg oral - tab, PO, l tablet 02:36: BID, # 60 [place] 00 tab, 1 Refill(s) ramipril Yes 2.5 mg = 1 [facility] o[facility] 2.5 mg oral 04-22 cap, PO, l capsule 02:36: Daily, 0 [place] 00 Refill(s) folic acid Yes 0.8 mg = 1 M emoria 0.8 mg oral 04-22 tab, PO, l tablet 02:36: Daily, 0 [place] 00 Refill(s) Cephalexin Yes 500 mg = 1 M emoria 500 MG Oral 04-22 cap, PO, l Capsule 02:36: Daily, # [place] [Keflex] 00 40 cap, 0 Refill(s) sertraline Yes See [facility] 25 mg oral 04-22 Instructio l tablet 02:36: ns, 0.5 [place] 00 tab PO Daily 30 day, 1 Refill(s) Aspirin 325 Yes 325 mg = 1 Memoria MG Oral -29 tab, PO, l Tablet 02:36: Daily, # [place] 00 30 tab, 0 Refill(s) potassium Yes 15 mEq = 1 Me mor[place] citrate 15 -29 tab, PO, l MEQ 02:36: Daily, 0 [place] Extended 00 Refill(s) Release Tablet [Urocit-K] Probiotic Yes 1 cap, PO, Me moria Formula 04-22 Daily, 0 l oral 02:36: Refill(s) [place] capsule 00 24 HR No 30 mg = 1 [facility] Nifedipine 8-29 tab, PO, l 30 MG 02:36: PRN, # 30 [place] Extended 00 tab, 0 Release Refill(s) Tablet [...] Triamcinolo Yes 1 appl, Mem oria ne 8-29 TOP, TID, l Acetonide 02:36: # 15 [...] tab, PO, l tablet 02:36: Daily, 0 [place] 00 Refill(s) Cephalexin Yes 500 mg = 1 M emoria 500 MG Oral 8-29 cap, PO, l Capsule 02:36: Daily, # [place] [Keflex] 00 40 cap, 0 Refill(s) sertraline Yes See [facility] 25 mg oral 8-29 Instructio l tablet 02:36: ns, 0.5 [place] 00 tab PO Daily 30 day, 1 Refill(s) Aspirin 325 Yes 325 mg = 1 Memoria MG Oral 8-29 tab, PO, l Tablet 02:36: Daily, # [place] 00 30 tab, 0 Refill(s) potassium Yes 15 mEq = 1 Me moria citrate 15 8-29 tab, PO, l MEQ 02:36: Daily, 0 [place] Extended 00 Refill(s) Release Tablet [Urocit-K] Probiotic Yes 1 cap, PO, Me moria Formula 829 Daily, 0 l oral 02:36: Refill(s) [place] capsule 00 24 HR No 30 mg = 1 [facility] Nifedipine 8-29 tab, PO, l 30 MG 02:36: PRN, # 30 [place] Extended 00 tab, 0 Release Refill(s) Tablet [...] = 1 Mem oria 2.5 mg oral -29 cap, PO, l capsule 02:36: Daily, 0 [place] 00 Refill(s) folic acid Yes 0.8 mg = 1 M emoria 0.8 mg oral 8-29 tab, PO, l tablet 02:36: Daily, 0 [place] 00 Refill(s) Cephalexin Yes 500 mg = 1 M emoria 500 MG Oral 8-29 cap, PO, l Capsule 02:36: Daily, # [place] [Keflex] 00 40 cap, 0 Refill(s) sertraline Yes See [facility] 25 mg oral 8-29 Instructio l tablet 02:36: ns, 0.5 [place] 00 tab PO Daily 30 day, 1 Refill(s) Aspirin 325 Yes 325 mg = 1 [facility] MG Oral 8-29 tab, PO, l Tablet 02:36: Daily, # [place] 00 30 tab, 0 Refill(s) potassium Yes 15 mEq = 1 Me mor[facility] citrate 15 8-29 tab, PO, l MEQ 02:36: Daily, 0 [place] Extended 00 Refill(s) Release Tablet [Urocit-K] Probiotic Yes 1 cap, PO, Me moria Formula 8- Daily, 0 l oral 02:36: Refill(s) [place] capsule 00 24 HR No 30 mg = 1 [facility] Nifedipine 8-29 tab, PO, l 30 MG 02:36: PRN, # 30 [place] Extended 00 tab, 0 Release Refill(s) Tablet [...] tab, PO, l tablet 02:36: Daily, 0 [place] 00 Refill(s) Cephalexin Yes 500 mg = 1 M emoria 500 MG Oral 8-29 cap, PO, l Capsule 02:36: Daily, # [place] [Keflex] 00 40 cap, 0 Refill(s) sertraline Yes See [facility] 25 mg oral 8-29 Instructio l tablet 02:36: ns, 0.5 [place] 00 tab PO Daily 30 day, 1 Refill(s) Aspirin 325 Yes 325 mg = 1 Mem[facility] MG Oral 8-29 tab, PO, l Tablet 02:36: Daily, # [place] 00 30 tab, 0 Refill(s) potassium Yes 15 mEq = 1 Me moria citrate 15 8- tab, PO, l MEQ 02:36: Daily, 0 [place] Extended 00 Refill(s) Release Tablet [Urocit-K] Probiotic Yes 1 cap, PO, Me moria Formula 04-22 Daily, 0 l oral 02:36: Refill(s) [place] capsule 00 24 HR No 30 mg = 1 [facility] Nifedipine - tab, PO, l 30 MG 02:36: PRN, # 30 [place] Extended 00 tab, 0 Release Refill(s) Tablet [...] tab, PO, l tablet 02:36: Daily, 0 [place] 00 Refill(s) Cephalexin Yes 500 mg = 1 M emoria 500 MG Oral 8-29 cap, PO, l Capsule 02:36: Daily, # [place] [Keflex] 00 40 cap, 0 Refill(s) sertraline Yes See [facility] 25 mg oral 8-29 Instructio l tablet 02:36: ns, 0.5 [place] 00 tab PO Daily 30 day, 1 Refill(s) Aspirin 325 Yes 325 mg = 1 Mem[facility] MG Oral 8-29 tab, PO, l Tablet 02:36: Daily, # [place] 00 30 tab, 0 Refill(s) potassium Yes 15 mEq = 1 Me moria citrate 15 8-29 tab, PO, l MEQ 02:36: Daily, 0 [place] Extended 00 Refill(s) Release Tablet [Urocit-K] Probiotic Yes 1 cap, PO, Me moria Formula - Daily, 0 l oral 02:36: Refill(s) [place] capsule 00 24 HR No 30 mg = 1 [facility] Nifedipine 8-29 tab, PO, l 30 MG 02:36: PRN, # 30 [place] Extended 00 tab, 0 Release Refill(s) Tablet [...] tab, PO, l tablet 02:36: Daily, 0 [place] 00 Refill(s) Cephalexin Yes 500 mg = 1 M emoria 500 MG Oral 8-29 cap, PO, l Capsule 02:36: Daily, # [place] [Keflex] 00 40 cap, 0 Refill(s) sertraline Yes See [facility] 25 mg oral 04-22 Instructio l tablet 02:36: ns, 0.5 [place] 00 tab PO Daily 30 day, 1 Refill(s) Aspirin 325 Yes 325 mg = 1 [facility] MG Oral 8-29 tab, PO, l Tablet 02:36: Daily, # [place] 00 30 tab, 0 Refill(s) potassium Yes 15 mEq = 1 Me mor[facility] citrate 15 - tab, PO, l MEQ 02:36: Daily, 0 [place] Extended 00 Refill(s) Release Tablet [Urocit-K] Probiotic Yes 1 cap, PO, Me moria Formula 04-22 Daily, 0 l oral 02:36: Refill(s) [place] capsule 00 24 HR No 30 mg = 1 [facility] Nifedipine 8-29 tab, PO, l 30 MG 02:36: PRN, # 30 [place] Extended 00 tab, 0 Release Refill(s) Tablet [...] = 1 Mem oria 2.5 mg oral 829 cap, PO, l capsule 02:36: Daily, 0 [place] 00 Refill(s) folic acid Yes 0.8 mg = 1 M emoria 0.8 mg oral 8-29 tab, PO, l tablet 02:36: Daily, 0 [place] 00 Refill(s) Cephalexin Yes 500 mg = 1 M emoria 500 MG Oral 8- cap, PO, l Capsule 02:36: Daily, # [place] [Keflex] 00 40 cap, 0 Refill(s) sertraline Yes See [facility] 25 mg oral 04-22 Instructio l tablet 02:36: ns, 0.5 [place] 00 tab PO Daily 30 day, 1 Refill(s) Aspirin 325 Yes 325 mg = 1 Mem[facility] MG Oral -29 tab, PO, l Tablet 02:36: Daily, # [place] 00 30 tab, 0 Refill(s) potassium Yes 15 mEq = 1 Me moria citrate 15 - tab, PO, l MEQ 02:36: Daily, 0 [place] Extended 00 Refill(s) Release Tablet [Urocit-K] Probiotic Yes 1 cap, PO, Me moria Formula 04-22 Daily, 0 l oral 02:36: Refill(s) [place] capsule 00 24 HR No 30 mg = 1 [facility] Nifedipine 8-29 tab, PO, l 30 MG 02:36: PRN, # 30 [place] Extended 00 tab, 0 Release Refill(s) Tablet [...] tab, PO, l tablet 02:36: Daily, 0 [place] 00 Refill(s) Cephalexin Yes 500 mg = 1 M emoria 500 MG Oral 8- cap, PO, l Capsule 02:36: Daily, # [place] [Keflex] 00 40 cap, 0 Refill(s) sertraline Yes See [facility] 25 mg oral 29 Instructio l tablet 02:36: ns, 0.5 [place] 00 tab PO Daily 30 day, 1 Refill(s) Aspirin 325 Yes 325 mg = 1 Mem[facility] MG Oral 8-29 tab, PO, l Tablet 02:36: Daily, # [place] 00 30 tab, 0 Refill(s) potassium Yes 15 mEq = 1 Me mor[place] citrate 15 -29 tab, PO, l MEQ 02:36: Daily, 0 [place] Extended 00 Refill(s) Release Tablet [Urocit-K] Probiotic Yes 1 cap, PO, Me moria Formula 04-22 Daily, 0 l oral 02:36: Refill(s) [place] capsule 00 24 HR No 30 mg = 1 [facility] Nifedipine 8-29 tab, PO, l 30 MG 02:36: PRN, # 30 Kevin Extended 00 tab, 0 Release Refill(s) Tablet [...] cap, 1 Refill(s) Docusate No Notes: Memoria 8-29 (Same as: l 02:32: Colace) Kevin 00 (Do Not Crush) Acetaminoph No Notes: Do M emoria en 8 not exceed l 02:32: 4 gm/day. Kevin 00 (Same as: Tylenol) Docusate No Notes: Memoria 8- (Same as: l 02:32: Colace) [place] 00 (Do Not Crush) Acetaminoph No Notes: Do M emoria en 8 not exceed l 02:32: 4 gm/day. Kevin 00 (Same as: Tylenol) Docusate No Notes: Memoria 8- (Same as: l 02:32: Colace) [place] 00 (Do Not Crush) Acetaminoph No Notes: Do M emoria en 04-22 not exceed l 02:32: 4 gm/day. [place] 00 (Same as: Tylenol) Docusate No Notes: Memoria 8- (Same as: l 02:32: Colace) [place] 00 (Do Not Crush) Acetaminoph No Notes: Do M emoria en 8 not exceed l 02:32: 4 gm/day. [place] 00 (Same as: Tylenol) Docusate No Notes: Memoria 8-29 (Same as: l 02:32: Colace) [place] 00 (Do Not Crush) Acetaminoph No Notes: Do M emoria en 8 not exceed l 02:32: 4 gm/day. Kevin 00 (Same as: Tylenol) Docusate No Notes: Memoria 8-29 (Same as: l 02:32: Colace) [place] 00 (Do Not Crush) Acetaminoph No Notes: Do M emoria en 8- not exceed l 02:32: 4 gm/day. [place] 00 (Same as: Tylenol) Docusate No Notes: Memoria 8- (Same as: l 02:32: Colace) [place] 00 (Do Not Crush) Acetaminoph No Notes: Do M emoria en 8 not exceed l 02:32: 4 gm/day. [place] (Same as: Tylenol) Docusate No Notes: Memoria 8- (Same as: l 02:32: Colace) [place] (Do Not Crush) Acetaminoph No Notes: Do M emoria en 04-22 not exceed l 02:32: 4 gm/day. Kevin 00 (Same as: Tylenol) Docusate No Notes: Memoria 8- (Same as: l 02:32: Colace) [place] (Do Not Crush) Acetaminoph No Notes: Do M emoria en 04-22 not exceed l 02:32: 4 gm/day. [place] (Same as: Tylenol) Docusate No Notes: Memoria 8- (Same as: l 02:32: Colace) Kevin (Do Not Crush) Acetaminoph No Notes: Do M emoria en 04-22 not exceed l 02:32: 4 gm/day. [place] (Same as: Tylenol) Docusate No Notes: Memoria 8- (Same as: l 02:32: Colace) [place] (Do Not Crush) Acetaminoph No Notes: Do M emoria en 04-22 not exceed l 02:32: 4 gm/day. [place] (Same as: Tylenol) Docusate No Notes: Memoria 8- (Same as: l 02:32: Colace) [place] (Do Not Crush) Acetaminoph No Notes: Do M emoria en 04-22 not exceed l 02:32: 4 gm/day. Kevin 00 (Same as: Tylenol) Vitamin D3 Yes 0 Memoria 04-22 Refill(s) l 01:37: Kevin 00 Levothyroxi Yes 75 Memori a ne Sodium 04-22 microgram l 0.075 MG 01:37: = 1 tab, Mela nn Oral Tablet 00 PO, Daily, [Synthroid] 0 Refill(s) oxybutynin No 5 mg = 1 Mem oria 5 mg oral 04-22 tab, PO, l tablet, 01:37: BID, # 30 Mela nn extended 00 tab, 0 release Refill(s) Cephalexin 2016 No 500 mg = 1 M emoria 500 MG Oral 8-29 cap, PO, l Capsule 01:37: QID, # 40 Mela nn [Keflex] 00 cap, 0 Refill(s) Vitamin D3 0 Yes 0 Memoria 8-29 Refill(s) l 01:37: [place] Levothyroxi Yes 75 Memori a ne Sodium [...] [Keflex] 00 cap, 0 Refill(s) Vitamin D3 0 Yes 0 Memoria 8-29 Refill(s) l 01:37: [place] Levothyroxi Yes 75 Memori a ne Sodium [...] [Keflex] 00 cap, 0 Refill(s) Vitamin D3 0 Yes 0 Memoria 8-29 Refill(s) l 01:37: [place] 00 Levothyroxi 0 Yes 75 Memori a ne Sodium 8-29 [...] Yes 0 Memoria 8-29 Refill(s) l 01:37: [place] Levothyroxi Yes 75 Memori a ne Sodium [...] [Keflex] 00 cap, 0 Refill(s) Vitamin D3 0 Yes 0 Memoria 8-29 Refill(s) l 01:37: [place] Levothyroxi 0 Yes 75 Memori a ne Sodium 8-29 [...] [Keflex] 00 cap, 0 Refill(s) Vitamin D3 0 Yes 0 Memoria 8-29 Refill(s) l 01:37: [place] 00 Levothyroxi 0 Yes 75 Memori a ne Sodium 8-29 [...] Yes 0 Memoria 8-29 Refill(s) l 01:37: [place] 00 Levothyroxi Yes 75 Memori a ne [...] [Keflex] 00 cap, 0 Refill(s) Vitamin D3 2015-0 Yes 0 Memoria 8-29 Refill(s) l 01:37: [place] 00 Levothyroxi 2015-0 Yes 75 Memori a ne Sodium 8-29 microgram l 0.075 MG 01:37: = 1 tab, Mela nn Oral Tablet 00 PO, Daily, [Synthroid] 0 Refill(s) oxybutynin 2015-0 No 5 mg = 1 Mem oria 5 mg oral 8-29 tab, PO, l tablet, 01:37: BID, # 30 Mela nn extended 00 tab, 0 release Refill(s) Cephalexin 2015-0 No 500 mg = 1 M emoria 500 MG Oral 8-29 cap, PO, l Capsule 01:37: QID, # 40 Mela nn [Keflex] 00 cap, 0 Refill(s) Vitamin D3 2015-0 Yes 0 Memoria 8-29 Refill(s) l 01:37: [place] Levothyroxi Yes 75 Memori a ne Sodium [...] Yes 0 Memoria 8-29 Refill(s) l 01:37: [place] Levothyroxi 0 Yes 75 Memori a ne Sodium 8-29 [...] [Keflex] 00 cap, 0 Refill(s) Vitamin D3 0 Yes 0 Memoria 8-29 Refill(s) l 01:37: [place] 00 Levothyroxi 0 Yes 75 Memori a ne Sodium 8-29 microgram l 0.075 MG 01:37: = 1 tab, Mela nn Oral Tablet 00 PO, Daily, [Synthroid] 0 Refill(s) oxybutynin 2016-0 No 5 mg = 1 Mem oria 5 mg oral 8-29 tab, PO, l tablet, 01:37: BID, # 30 Mela nn extended 00 tab, 0 release Refill(s) Cephalexin 0 No 500 mg = 1 M emoria [...] 24 00 Medical hr tablet Branch cephALEXin 2022- No Univer s (KEFLEX) 09-12-20 ity of 500 mg 00:00: 00:00 [place] capsule 00 :00 Medical Branch oxybutynin 2022- No Univer s XL 09-12-20 ity of (DITROPAN-X 00:00: 00:00 [place] L) 5 mg 24 00 :00 Medical hr tablet Branch cephALEXin 2022- No Univer s (KEFLEX) 09-12-20 ity of 500 mg 00:00: 00:00 [place] capsule 00 :00 Medical [facility] oxybutynin 2022- No Univer s XL 09-12-20 ity of (DITROPAN-X 00:00: 00:00 [place] L) 5 mg 24 00 :00 Medical hr tablet Branch SYNTHROID Yes [id number] Univ ers 75 mcg 9-23 ity of tablet 00:00: [place] 00 Medical [facility] SYNTHROID Yes [id number] Univ ers 75 mcg 9-23 ity of tablet 00:00: [place] 00 [facility] SYNTHROID 2014-0 Yes [id number] Univ ers 75 mcg 9-23 ity of tablet 00:00: [place] 00 [facility] SYNTHROID 2014-0 Yes [id number] Univ ers 75 mcg -23 ity of tablet 00:00: [place] 00 [facility] SYNTHROID 2014-0 3- No [id number] Uni vers 75 mcg -14 11-16 ity of tablet 00:00: 00:00 [place] 00 :00 Medical Branch SYNTHROID 2014-0 3- No [id number] Uni vers 75 mcg -14 11-16 ity of tablet 00:00: 00:00 [place] 00 :00 Medical Branch Immunizations Ordered Filled Immunization Date Status Comments [facility] e Immunization Name Name CHETNA 2022-03-14 Completed University o f 00:00:00 [facility] NILAGAB 2022-03-14 Completed University o f 00:00:00 [facility] BEKARENGAB 2022-03-14 Completed University o f 00:00:00 [facility] BEKARENGAB 2022-03-14 Completed University o f 00:00:00 [facility] BEKARENGAB 2022-03-14 Completed University o f 00:00:00 [facility] BEKARENGAB 2022-03-14 Completed University o f 00:00:00 [facility] BEKARENGAB 2022-03-14 Completed University o f 00:00:00 [facility] BEKARENMAB 2022-03-14 Completed University o f 00:00:00 [facility] BEKARENGAB 2022-03-14 Completed University o f 00:00:00 [facility] BEKARENGAB 2022-03-14 Completed University o f 00:00:00 [facility] BEPATRICKOVIGAB 2022-03-14 Completed University o f 00:00:00 [facility] BEKARENGAB 2022-03-14 Completed University o f 00:00:00 [facility] BEKARENGAB 2022-03-14 Completed University o f 00:00:00 [facility] BEKARENGAB 2022-03-14 Completed University o f 00:00:00 [facility] BEKARENMAB 2022-03-14 Completed University o f 00:00:00 [facility] BEPATRICKOVIMAB 2022-03-14 Completed University o f 00:00:00 [facility] BEPATRICKOVIMAB 2022-03-14 Completed University o f 00:00:00 [facility] BEPATRICKOVIMAB 2022-03-14 Completed University o f 00:00:00 [facility] BEPATRICKOVIMAB 2022-03-14 Completed University o f 00:00:00 [facility] BEPATRICKOVIMAB 2022-03-14 Completed University o f 00:00:00 [facility] BEPATRICKOVIMAB 2022-03-14 Completed University o f 00:00:00 [facility] BEPATRICKOVIMAB 2022-03-14 Completed University o f 00:00:00 [facility] BEPATRICKOVIMAB 2022-03-14 Completed University o f 00:00:00 [facility] BEKARENMAB 2022-03-14 Completed University o f 00:00:00 [facility] BEPATRICKOVIMAB 2022-03-14 Completed University o f 00:00:00 [facility] SARS-COV-2 COVID-19 2020-11-06 Completed Unive rsity of PFIZER VACCINE 00:00:00 [facility] SARS-COV-2 COVID-19 2020-11-06 Completed Unive rsity of PFIZER VACCINE 00:00:00 [facility] SARS-COV-2 COVID-19 2020-11-06 Completed Unive rsity of PFIZER VACCINE 00:00:00 [facility] SARS-COV-2 COVID-19 2020-11-06 Completed Unive rsity of PFIZER VACCINE 00:00:00 [facility] SARS-COV-2 COVID-19 2020-11-06 Completed Unive rsity of PFIZER VACCINE 00:00:00 [facility] SARS-COV-2 COVID-19 2020-11-06 Completed Unive rsity of PFIZER VACCINE 00:00:00 [facility] SARS-COV-2 COVID-19 2020-11-06 Completed Unive rsity of PFIZER VACCINE 00:00:00 [place] [facility] SARS-COV-2 COVID-19 2020-11-06 Completed Unive rsity of PFIZER VACCINE 00:00:00 [facility] SARS-COV-2 COVID-19 2020-11-06 Completed Unive rsity of PFIZER VACCINE 00:00:00 [facility] SARS-COV-2 COVID-19 2020-11-06 Completed Unive rsity of PFIZER VACCINE 00:00:00 [facility] SARS-COV-2 COVID-19 2020-11-06 Completed Unive rsity of PFIZER VACCINE 00:00:00 [facility] SARS-COV-2 COVID-19 2020-11-06 Completed Unive rsity of PFIZER VACCINE 00:00:00 [facility] SARS-COV-2 COVID-19 2020-11-06 Completed Unive rsity of PFIZER VACCINE 00:00:00 [facility] SARS-COV-2 COVID-19 2020-11-06 Completed Unive rsity of PFIZER VACCINE 00:00:00 [facility] SARS-COV-2 COVID-19 2020-11-06 Completed Unive rsity of PFIZER VACCINE 00:00:00 [facility] SARS-COV-2 COVID-19 2020-11-06 Completed Unive rsity of PFIZER VACCINE 00:00:00 [facility] SARS-COV-2 COVID-19 2020-11-06 Completed Unive rsity of PFIZER VACCINE 00:00:00 [facility] SARS-COV-2 COVID-19 2020-11-06 Completed Unive rsity of PFIZER VACCINE 00:00:00 [facility] SARS-COV-2 COVID-19 2020-11-06 Completed Unive rsity of PFIZER VACCINE 00:00:00 [facility] SARS-COV-2 COVID-19 2020-11-06 Completed Unive rsity of PFIZER VACCINE 00:00:00 [facility] SARS-COV-2 COVID-19 2020-11-06 Completed Unive rsity of PFIZER VACCINE 00:00:00 [facility] SARS-COV-2 COVID-19 2020-11-06 Completed Unive rsity of PFIZER VACCINE 00:00:00 [facility] SARS-COV-2 COVID-19 2020-11-06 Completed Unive rsity of PFIZER VACCINE 00:00:00 [facility] SARS-COV-2 COVID-19 2020-11-06 Completed Unive rsity of PFIZER VACCINE 00:00:00 [facility] SARS-COV-2 COVID-19 2020-11-06 Completed Unive rsity of PFIZER VACCINE 00:00:00 [facility] SARS-COV-2 COVID-19 2020-10-16 Completed Unive rsity of PFIZER VACCINE 00:00:00 [facility] SARS-COV-2 COVID-19 2020-10-16 Completed Unive rsity of PFIZER VACCINE 00:00:00 [facility] SARS-COV-2 COVID-19 2020-10-16 Completed Unive rsity of PFIZER VACCINE 00:00:00 [facility] SARS-COV-2 COVID-19 2020-10-16 Completed Unive rsity of PFIZER VACCINE 00:00:00 [facility] SARS-COV-2 COVID-19 2020-10-16 Completed Unive rsity of PFIZER VACCINE 00:00:00 [facility] SARS-COV-2 COVID-19 2020-10-16 Completed Unive rsity of PFIZER VACCINE 00:00:00 [facility] SARS-COV-2 COVID-19 2020-10-16 Completed Unive rsity of PFIZER VACCINE 00:00:00 [facility] SARS-COV-2 COVID-19 2020-10-16 Completed Unive rsity of PFIZER VACCINE 00:00:00 [facility] SARS-COV-2 COVID-19 2020-10-16 Completed Unive rsity of PFIZER VACCINE 00:00:00 [facility] SARS-COV-2 COVID-19 2020-10-16 Completed Unive rsity of PFIZER VACCINE 00:00:00 [facility] SARS-COV-2 COVID-19 2020-10-16 Completed Unive rsity of PFIZER VACCINE 00:00:00 [facility] SARS-COV-2 COVID-19 2020-10-16 Completed Unive rsity of PFIZER VACCINE 00:00:00 [facility] SARS-COV-2 COVID-19 2020-10-16 Completed Unive rsity of PFIZER VACCINE 00:00:00 [facility] SARS-COV-2 COVID-19 2020-10-16 Completed Unive rsity of PFIZER VACCINE 00:00:00 [facility] SARS-COV-2 COVID-19 2020-10-16 Completed Unive rsity of PFIZER VACCINE 00:00:00 [facility] SARS-COV-2 COVID-19 2020-10-16 Completed Unive rsity of PFIZER VACCINE 00:00:00 [facility] SARS-COV-2 COVID-19 2020-10-16 Completed Unive rsity of PFIZER VACCINE 00:00:00 [facility] SARS-COV-2 COVID-19 2020-10-16 Completed Unive rsity of PFIZER VACCINE 00:00:00 [facility] SARS-COV-2 COVID-19 2020-10-16 Completed Unive rsity of PFIZER VACCINE 00:00:00 [facility] SARS-COV-2 COVID-19 2020-10-16 Completed Unive rsity of PFIZER VACCINE 00:00:00 [facility] SARS-COV-2 COVID-19 2020-10-16 Completed Unive rsity of PFIZER VACCINE 00:00:00 [facility] SARS-COV-2 COVID-19 2020-10-16 Completed Unive rsity of PFIZER VACCINE 00:00:00 [facility] SARS-COV-2 COVID-19 2020-10-16 Completed Unive rsity of PFIZER VACCINE 00:00:00 [facility] SARS-COV-2 COVID-19 2020-10-16 Completed Unive rsity of PFIZER VACCINE 00:00:00 [facility] SARS-COV-2 COVID-19 2020-10-16 Completed Unive rsity of PFIZER VACCINE 00:00:00 [facility] Influenza High Dose 2019-06-03 Completed Unive rsity of 00:00:00 [facility] Influenza High Dose 2019-06-03 Completed Unive rsity of 00:00:00 [facility] Influenza High Dose 2019-06-03 Completed Unive rsity of 00:00:00 [facility] Influenza High Dose 2019-06-03 Completed Unive rsity of 00:00:00 [facility] Influenza High Dose 2019-06-03 Completed Unive rsity of 00:00:00 [facility] Influenza High Dose 2019-06-03 Completed Unive rsity of 00:00:00 [facility] Influenza High Dose 2019-06-03 Completed Unive rsity of 00:00:00 [facility] Influenza High Dose 2019-06-03 Completed Unive rsity of 00:00:00 [facility] Influenza High Dose 2019-06-03 Completed Unive rsity of 00:00:00 [facility] Influenza High Dose 2019-06-03 Completed Unive rsity of 00:00:00 [facility] Influenza High Dose 2019-06-03 Completed Unive rsity of 00:00:00 [facility] Influenza High Dose 2019-06-03 Completed Unive rsity of 00:00:00 [facility] Influenza High Dose 2019-06-03 Completed Unive rsity of 00:00:00 [facility] Influenza High Dose 2019-06-03 Completed Unive rsity of 00:00:00 [facility] Influenza High Dose 2019-06-03 Completed Unive rsity of 00:00:00 [facility] Influenza High Dose 2019-06-03 Completed Unive rsity of 00:00:00 [facility] Influenza High Dose 2019-06-03 Completed Unive rsity of 00:00:00 [facility] Influenza High Dose 2019-06-03 Completed Unive rsity of 00:00:00 [facility] Influenza High Dose 2019-06-03 Completed Unive rsity of 00:00:00 [facility] Influenza High Dose 2019-06-03 Completed Unive rsity of 00:00:00 [facility] Influenza High Dose 2019-06-03 Completed Unive rsity of 00:00:00 [facility] Influenza High Dose 2019-06-03 Completed Unive rsity of 00:00:00 [facility] Influenza High Dose 2019-06-03 Completed Unive rsity of 00:00:00 [facility] Influenza High Dose 2019-06-03 Completed Unive rsity of 00:00:00 [facility] Influenza High Dose 2019-06-03 Completed Unive rsity of 00:00:00 [facility] Pneumococcal 13 2018-06-19 Completed Universit y of Conjugate, PCV13 00:00:00 [facility] dical (Prevnar 13) Branch Pneumococcal 13 2018-06-19 Completed Universit y of Conjugate, PCV13 00:00:00 [place] [facility]ical (Prevnar 13) Branch Pneumococcal 13 2018-06-19 [...] Completed Universit y of Conjugate, PCV13 00:00:00 [place] [facility] dical (Prevnar 13) Branch Influenza High Dose 2016-09-03 Completed Unive rsity of 00:00:00 [facility] Influenza High Dose 2016-09-03 Completed Unive rsity of 00:00:00 [facility] Influenza High Dose 2016-09-03 Completed Unive rsity of 00:00:00 [facility] Influenza High Dose 2016-09-03 Completed Unive rsity of 00:00:00 [facility] Influenza High Dose 2016-09-03 Completed Unive rsity of 00:00:00 [facility] Influenza High Dose 2016-09-03 Completed Unive rsity of 00:00:00 [facility] Influenza High Dose 2016-09-03 Completed Unive rsity of 00:00:00 [facility] Influenza High Dose 2016-09-03 Completed Unive rsity of 00:00:00 [facility] Influenza High Dose 2016-09-03 Completed Unive rsity of 00:00:00 [facility] Influenza High Dose 2016-09-03 Completed Unive rsity of 00:00:00 [facility] Influenza High Dose 2016-09-03 Completed Unive rsity of 00:00:00 [facility] Influenza High Dose 2016-09-03 Completed Unive rsity of 00:00:00 [facility] Influenza High Dose 2016-09-03 Completed Unive rsity of 00:00:00 [facility] Influenza High Dose 2016-09-03 Completed Unive rsity of 00:00:00 [facility] Influenza High Dose 2016-09-03 Completed Unive rsity of 00:00:00 [facility] Influenza High Dose 2016-09-03 Completed Unive rsity of 00:00:00 [facility] Influenza High Dose 2016-09-03 Completed Unive rsity of 00:00:00 [facility] Influenza High Dose 2016-09-03 Completed Unive rsity of 00:00:00 [facility] Influenza High Dose 2016-09-03 Completed Unive rsity of 00:00:00 [facility] Influenza High Dose 2016-09-03 Completed Unive rsity of 00:00:00 [facility] Influenza High Dose 2016-09-03 Completed Unive rsity of 00:00:00 [facility] Influenza High Dose 2016-09-03 Completed Unive rsity of 00:00:00 [facility] Influenza High Dose 2016-09-03 Completed Unive rsity of 00:00:00 [facility] Influenza High Dose 2016-09-03 Completed Unive rsity of 00:00:00 [facility] Influenza High Dose 2016-09-03 Completed Unive rsity of 00:00:00 [facility] Vital Signs Vital Name Observation Time Observation Value Comments Source Systolic blood 2023-02-22 03:30:00 114 mm[Hg] Univer sity of pressure [facility] Diastolic blood 2023-02-22 03:30:00 90 mm[Hg] Unive rsity of pressure [facility] Heart rate 2023-02-22 03:30:00 63 /min [facility] Respiratory rate 2023-02-22 03:30:00 18 /min [facility] Oxygen saturation in 2023-02-22 03:30:00 97 /min [facility] Arterial blood by [facility] Pulse oximetry [place] Body temperature 2023-02-22 00:25:00 36.72 Keira [facility] 2023-02-22 00:25:00 160 cm [facility] Body weight 2023-02-22 00:25:00 50.803 kg [facility] BMI 2023-02-22 00:25:00 19.84 kg/m2 [facility] Systolic blood 2023-01-21 14:57:00 138 mm[Hg] Univer sity of pressure [place] [facility] Diastolic blood 2023-01-21 14:57:00 57 mm[Hg] Unive rsity of pressure [place] [facility] Heart rate 2023-01-21 14:57:00 58 /min [facility] [place] [facility] Respiratory rate 2023-01-21 14:57:00 19 /min [facility] ers[facility] [place] [facility] Body height 2023-01-21 14:57:00 160 cm [facility] [place] [facility] Body weight 2023-01-21 14:57:00 51.211 kg [facility] [place] [facility] BMI 2023-01-21 14:57:00 20.00 kg/m2 [facility] [place] [facility] Oxygen saturation in 2023-01-21 14:57:00 98 /min University of Arterial blood by [facility] Pulse oximetry Branch Systolic blood 2022-12-26 16:21:00 136 mm[Hg] Univer sity of pressure [facility] Diastolic blood 2022-12-26 16:21:00 60 mm[Hg] Unive rsity of pressure [facility] Heart rate 2022-12-26 16:21:00 58 /min [facility] [place] [facility] Body temperature 2022-12-26 16:21:00 36.17 Keira Univ ers[facility] [place] [facility] Body height 2022-12-26 16:21:00 160 cm [facility] [place] [facility] Body weight 2022-12-26 16:21:00 51.574 kg [facility] [place] [facility] BMI 2022-12-26 16:21:00 20.14 kg/m2 [facility] [place] [facility] Oxygen saturation in 2022-12-26 16:21:00 98 /min University of Arterial blood by [facility]rez Pulse oximetry Branch Systolic blood 2022-11-29 14:57:00 132 mm[Hg] Univer sity of pressure [place] [facility] Diastolic blood 2022-11-29 14:57:00 58 mm[Hg] Unive rsity of pressure [place] [facility] Heart rate 2022-11-29 14:57:00 55 /min [facility] [place] [facility] Body height 2022-11-29 14:57:00 160 cm [facility] [place] [facility] Body weight 2022-11-29 14:57:00 49.351 kg [facility] [place] [facility] BMI 2022-11-29 14:57:00 19.27 kg/m2 [facility] [place] [facility] Oxygen saturation in 2022-11-29 14:57:00 98 /min University of Arterial blood by [place] [facility] Pulse oximetry Branch Systolic blood 2022-11-21 14:34:00 143 mm[Hg] Univer sity of pressure [place] [facility] Diastolic blood 2022-11-21 14:34:00 70 mm[Hg] Unive rsity of pressure [place] [facility] Heart rate 2022-11-21 14:34:00 54 /min [facility] [place] [facility] Body temperature 2022-11-21 14:34:00 36.5 Keira [facility] Body weight 2022-11-21 14:34:00 46.267 kg [facility] BMI 2022-11-21 14:34:00 18.07 kg/m2 [facility] Oxygen saturation in 2022-11-21 14:34:00 94 /min [facility] of Arterial blood by [facility] andrez Pulse oximetry Branch Systolic blood 2022-11-11 16:20:00 102 mm[Hg] [facility] Diastolic blood 2022-11-11 16:20:00 45 mm[Hg] [facility] Heart rate 2022-11-11 16:20:00 68 /min [facility] Body temperature 2022-11-11 16:20:00 36.22 Keira [facility] Respiratory rate 2022-11-11 16:20:00 18 /min [facility] Oxygen saturation in 2022-11-11 16:20:00 95 /min [facility] [place] [facility]xim[facility] Body weight 2022-11-10 08:45:00 46.494 kg [facility] BMI 2022-11-10 08:45:00 18.16 kg/m2 [facility] Body height 2022-11-07 20:10:00 160 cm [facility] Systolic blood 2022-11-07 19:20:00 169 mm[Hg] [facility] Diastolic blood 2022-11-07 19:20:00 74 mm[Hg] [facility] Oxygen saturation in 2022-11-07 19:20:00 96 /min 2L [place] [facility] blood by [place] [employer] andrez Pulse oximetry Branch Heart rate 2022-11-07 19:18:00 71 /min [facility] Body temperature 2022-11-07 19:18:00 36.22 Keira [facility] Respiratory rate 2022-11-07 19:18:00 16 /min [facility] Body height 2022-11-07 19:18:00 160 cm [facility] Body weight 2022-11-07 19:18:00 48.535 kg [facility] BMI 2022-11-07 19:18:00 18.95 kg/m2 [facility] Systolic blood 2022-05-23 18:08:00 164 mm[Hg] [facility] Diastolic blood 2022-05-23 18:08:00 52 mm[Hg] [facility] Heart rate 2022-05-23 18:08:00 54 /min [facility] Body temperature 2022-05-23 18:08:00 36.89 Keira [facility] Body weight 2022-05-23 18:08:00 47.628 kg [facility] BMI 2022-05-23 18:08:00 18.60 kg/m2 [facility] Oxygen saturation in 2022-05-23 18:08:00 94 /min [facility] [place] blood by [place] [employer] andrez Pulse oximetry Branch Systolic blood 2022-04-05 16:45:00 178 mm[Hg] [facility] Diastolic blood 2022-04-05 16:45:00 61 mm[Hg] [facility] Body height 2022-04-05 16:43:00 160 cm [facility] Body weight 2022-04-05 16:43:00 48.988 kg [facility] BMI 2022-04-05 16:43:00 19.13 kg/m2 [facility] Height 2020-08-23 14:57:00 160.02 cm [facility] Weight 2020-08-23 14:57:00 [facility] BMI Calculated 2020-08-23 14:57:00 [facility] [place] Systolic (mm Hg) 2020-06-14 15:46:00 Arturo [facility] [place] Diastolic (mm Hg) 2020-06-14 15:46:00 Mem orial Kevin Heart Rate 2020-06-14 15:46:00 [facility] Height 2020-06-14 15:46:00 160.02 cm [facility] Weight 2020-06-14 15:46:00 [facility] BMI Calculated 2020-06-14 15:46:00 [facility] [place] Systolic (mm Hg) 2019-06-02 17:15:00 Arturo rial Kevin Diastolic (mm Hg) 2019-06-02 17:15:00 Mem orial [facility] Systolic (mm Hg) 2019-06-02 16:40:00 Arturo [facility] [place] Diastolic (mm Hg) 2019-06-02 16:40:00 [facility] [place] Systolic (mm Hg) 2019-06-02 16:10:00 Arturo rial [facility] Diastolic (mm Hg) 2019-06-02 16:10:00 [facility] [place] Temperature Oral (F) 2019-06-02 11:36:00 98.4 F [facility] Height 2019-06-02 10:43:00 157.48 cm [facility] Weight 2019-06-02 10:43:00 [facility] BMI Calculated 2019-06-02 10:43:00 [facility] [place] Systolic (mm Hg) 2019-05-05 19:46:00 Arturo [facility] [place] Diastolic (mm Hg) 2019-05-05 19:46:00 [facility] [place] Heart Rate 2019-05-05 19:46:00 [facility] Respitory Rate 2019-05-05 19:46:00 [facility] [place] Height 2019-05-05 19:46:00 152.4 cm [facility] Weight 2019-05-05 19:46:00 [facility] BMI Calculated 2019-05-05 19:46:00 [facility] [place] Systolic (mm Hg) 2016-10-29 13:36:00 Arturo [facility] [place] Diastolic (mm Hg) 2016-10-29 13:36:00 [facility] [place] Systolic (mm Hg) 2016-10-29 10:30:00 Arturo rial [facility] Diastolic (mm Hg) 2016-10-29 10:30:00 [facility] [place] Systolic (mm Hg) 2016-10-29 08:30:00 Arturo [facility] [place] Diastolic (mm Hg) 2016-10-29 08:30:00 Mem orial [facility] Temperature Oral (F) 2016-10-29 05:00:00 96.6 F [facility] Temperature Oral (F) 2016-10-28 18:45:00 97.0 F [facility] Respitory Rate 2016-10-28 18:45:00 Memori al Kevin BMI Calculated 2016-10-28 18:23:00 Memori al [facility] Weight 2016-10-28 18:23:00 [facility] Height 2016-10-28 18:23:00 160.02 cm [facility] Systolic (mm Hg) 2016-04-26 20:27:00 Arturo rial [facility] Diastolic (mm Hg) 2016-04-26 20:27:00 [facility] [place] Heart Rate 2016-04-26 20:27:00 [facility] Temperature Oral (F) 2016-04-26 20:27:00 98.4 F [facility] Respitory Rate 2016-04-26 20:27:00 [facility] [place] Systolic (mm Hg) 2016-04-26 16:51:00 Artuor [facility] [place] Diastolic (mm Hg) 2016-04-26 16:51:00 Mem orial Kevin Respitory Rate 2016-04-26 16:51:00 Memori al [facility] Temperature Oral (F) 2016-04-26 16:51:00 98.4 F [facility] Heart Rate 2016-04-26 16:51:00 [facility] Diastolic (mm Hg) 2016-04-26 13:02:00 Mem orial [facility] Systolic (mm Hg) 2016-04-26 13:02:00 Arturo rial Kevin Heart Rate 2016-04-26 13:02:00 [facility] Respitory Rate 2016-04-26 13:00:00 Memori al Kevin Temperature Oral (F) 2016-04-26 13:00:00 98.1 F [facility] BMI Calculated 2016-04-22 01:09:00 Memori tanvir Martines Weight 2016-04-22 01:09:00 Alli Martines Height 2016-04-22 01:09:00 160.02 cm [facility] Procedures Procedure Date / Time Performing Clinician Source Performed ABORH CONFIRMATION (LAB 2023-02-22 02:56:00 Jefe Mae [facility] ONLY) Medical Branch CT CERVICAL SPINE WO 2023-02-22 01:47:18 Jefe Mae [facility] CONTRAST Medical Branch XR ANKLE <3 VW LEFT 2023-02-22 01:31:50 Jefe Mae [facility] Medical [place] XR FEMUR 2 VW LEFT 2023-02-22 01:31:50 Jefe Mae [facility] XR HIPS 3 VW LEFT 2023-02-22 01:31:50 Jefe Mae [facility] XR HUMERUS 2 VW LEFT 2023-02-22 01:31:50 Jefe Mae [facility] XR SHOULDER 2+ VW LEFT 2023-02-22 01:31:50 Jefe Mae [facility] COMP. METABOLIC PANEL 2023-02-22 01:03:00 Jefe Mae [facility] ([id number]) Medical Branch CBC WITH DIFF 2023-02-22 01:03:00 Jefe Mae [facility] PROTHROMBIN TIME / INR 2023-02-22 01:03:00 Jefe Mae [facility] ACTIVATED PARTIAL THRMPLAS 2023-02-22 01:03:00 Jefe Mae [facility] Branch HB ABO GROUPING 2023-02-22 01:03:00 Jefe Mae [facility] [facility] NOTICE OF PRIVACY 2023-02-22 00:24:15 Doctor Chel, [facility] PRACTICES [place] [facility] REFERRAL- REQUEST/RESPONSE 2023-02-21 05:01:00 Doctor Chel , [facility] Name Medical Branch EXTERNAL PROVIDER - ADC 2022-12-19 05:01:00 Doctor Yaelsscarlee [facility] CARDIOLOGY [place] [facility] EXTERNAL PROVIDER - ADC 2022-12-02 05:01:00 Doctor Unassigned, [facility] REFERRAL [place] [facility] BASIC METABOLIC PANEL (NA, 2022-11-10 09:54:00 Kellie Vega [facility] K, CL, CO2, GLUCOSE, BUN, Medica l Branch CREATININE, CA) CBC WITH DIFF 2022-11-10 09:54:00 Kellie Vega [facility] N-TERMINAL PRO-BNP 2022-11-10 09:54:00 [facility] EKG-12 LEAD 2022-11-09 13:38:16 Gary [facility] TROPONIN I 2022-11-09 09:11:00 Ruthie Hester [facility] BASIC METABOLIC PANEL (NA, 2022-11-09 09:11:00 Kellie Vega [facility] K, CL, CO2, GLUCOSE, BUN, Medica l Branch CREATININE, CA) CBC WITH DIFF 2022-11-09 09:11:00 Gary Kellie [facility] N-TERMINAL PRO-BNP 2022-11-09 09:11:00 [facility] TROPONIN I 2022-11-08 21:42:00 Gary Kellie [facility] TRANSTHORACIC ECHO (TTE) 2022-11-08 14:55:00 Neeraj Wei [facility] PHOSPHORUS 2022-11-08 11:28:00 Neeraj Wei [facility] MAGNESIUM 2022-11-08 11:28:00 Neeraj Wei [facility] FERRITIN SERUM 2022-11-08 11:28:00 Neeraj Wei [facility] VITAMIN B12, LEVEL 2022-11-08 11:28:00 Neeraj [facility] FOLATE 2022-11-08 11:28:00 Neeraj Wei [facility] TROPONIN I 2022-11-08 11:28:00 Neeraj Wei [facility] THYROID STIMULATING 2022-11-08 11:28:00 Neeraj Wei [facility] HORMONE [facility] Branch HEPATIC FUNCTION PANEL 2022-11-08 11:28:00 Neeraj Wei [facility] ([id number]) (ALB,T.PRO,BILI Medical Branch T,BU/BC,ALT,AST,ALK PHOS) BASIC METABOLIC PANEL (NA, 2022-11-08 11:28:00 Neeraj Wei [facility] K, CL, CO2, GLUCOSE, BUN, Medica l Branch CREATININE, CA) DIFF CONSULT BY 2022-11-08 11:28:00 [facility] PATHOLOGIST [facility] CBC WITH DIFF 2022-11-08 11:28:00 Sanjuana [facility] PROTHROMBIN TIME / INR 2022-11-08 11:28:00 Neeraj Wei [facility] ACTIVATED PARTIAL THRMPLAS 2022-11-08 11:28:00 Neeraj Wei [facility] HARDIK [facility] N-TERMINAL PRO-BNP 2022-11-08 11:28:00 Neeraj [facility] VITAMIN D, 25-OH 2022-11-08 11:28:00 Sanjuana [facility] DIFF CONSULT 2022-11-08 11:28:00 Sanjuana [facility] INTERPRETATION [facility] URINE CULTURE 2022-11-08 03:55:00 Singer [facility] CT ABDOMEN PELVIS W 2022-11-07 23:17:00 Singer [facility] CONTRAST [facility] Branch CT CHEST PULMONARY 2022-11-07 23:17:00 Singer [facility] ANGIOGRAM Medical Branch URINALYSIS 2022-11-07 21:12:00 Singer [facility] XR CHEST 1 VW 2022-11-07 20:37:01 Singer [facility] TROPONIN I 2022-11-07 20:16:00 [facility] COMP. METABOLIC PANEL 2022-11-07 20:16:00 Ger Armstrong [facility] ([id number]) Medical Branch IRON PANEL 2022-11-07 20:16:00 Neeraj Wei [place] [facility] f [facility] CBC WITH DIFF 2022-11-07 20:16:00 Singer Ger [facility] RAPID INFLUENZA A/B 2022-11-07 20:16:00 Ger [facility] N-TERMINAL PRO-BNP 2022-11-07 20:16:00 Ger [facility] COVID-19 (ID NOW RAPID 2022-11-07 20:16:00 Singer Ger [facility] TESTING) Medical Branch LAB ONLY COVID 2022-11-07 20:16:00 Singer [facility] HB ECG ROUTINE & RHYTHM 2022-11-07 20:14:49 Singer Ger [facility] CONSENT/REFUSAL FOR 2022-11-07 20:11:36 Doctor Unassigned, [facility] DIAGNOSIS AND TREATMENT [place] [facility] ASSIGNMENT OF BENEFITS 2022-05-23 17:57:13 Doctor Unassigned, [facility] [place] [facility] [id number] 2021-09-18 00:00:00 H[facility]ER [facility] [id number] 2021-09-18 00:00:00 [facility]ER [facility] [id number] 2021-09-18 00:00:00 [facility] [id number] 2021-09-18 00:00:00 [facility] [id number] 2021-09-18 00:00:00 [facility] GASTROINTESTINAL PANEL 2021-08-16 20:00:00 [facility] 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 Martines prosthesis<sup>1</sup> Placement of stent in [facility] cardiac conduit Plan of Care Planned Activity Planned Date Details Comments Source Future Scheduled 2023-02-07 SHINGLES VACCINES (1 Met [facility] Test 06:26:43 of 2) [code = SHINGLES VACCINES (1 of 2)] Future Scheduled 2023-02-07 65+ PNEUMOCOCCAL [facility] Test 06:26:43 VACCINE (2 - PPSV23 if available, else PCV20) [code = 65+ PNEUMOCOCCAL VACCINE (2 - PPSV23 if available, else PCV20)] Future Scheduled 2023-02-07 COVID-19 VACCINE (4 - [facility] Test 06:26:43 Pfizer series) [code = COVID-19 VACCINE (4 - Pfizer series)] Future Scheduled 2023-02-07 INFLUENZA VACCINE [facility] Test 06:26:43 [code = INFLUENZA VACCINE] Future Scheduled 2022-08-27 SHINGLES VACCINES (1 Met [facility] Test 09:13:03 of 2) [code = SHINGLES VACCINES (1 of 2)] Future Scheduled 2022-08-27 65+ PNEUMOCOCCAL [facility] Test 09:13:03 VACCINE (2 - PPSV23 if available, else PCV20) [code = 65+ PNEUMOCOCCAL VACCINE (2 - PPSV23 if available, else PCV20)] Future Scheduled 2022-08-27 COVID-19 VACCINE (4 - [facility] Test 09:13:03 Booster for Pfizer series) [code = COVID-19 VACCINE (4 - Booster for Pfizer series)] Future Scheduled 2022-08-27 INFLUENZA VACCINE Method [facility] Test 09:13:03 [code = INFLUENZA VACCINE] Future Scheduled 2022-06-28 HEPATITIS B VACCINES Met [facility] Test 18:57:48 (1 of 3 - 3-dose series) [code = HEPATITIS B VACCINES (1 of 3 - 3-dose series)] Future Scheduled 2022-06-28 SHINGLES VACCINES (1 Met [facility] Test 18:57:48 of 2) [code = SHINGLES VACCINES (1 of 2)] Future Scheduled 2022-06-28 65+ PNEUMOCOCCAL [facility] Test 18:57:48 VACCINE (2 - PPSV23 if available, else PCV20) [code = 65+ PNEUMOCOCCAL VACCINE (2 - PPSV23 if available, else PCV20)] Future Scheduled 2022-06-28 COVID-19 VACCINE (4 - Me [facility] Test 18:57:48 Booster for Pfizer series) [code = COVID-19 VACCINE (4 - Booster for Pfizer series)] Future Scheduled 2022-06-28 INFLUENZA VACCINE Method [facility] Test 18:57:48 [code = INFLUENZA VACCINE] Future Scheduled 2022-04-12 HEPATITIS B VACCINES Met [facility] Test 01:52:51 (1 of 3 - 3-dose series) [code = HEPATITIS B VACCINES (1 of 3 - 3-dose series)] Future Scheduled 2022-04-12 SHINGLES VACCINES (1 Met [facility] Test 01:52:51 of 2) [code = SHINGLES [...] Clinicians Facility Department ID 2022-05-03 [id number] 10:30:[address] 2021-06-24 Outpatient Jeovany REYEZ [facility] [id number] Univers 10:58:25 [facility] 2021-06-23 Outpatient Jeovany REYEZ [facility] [id number] Univers 23:07:21 [facility] 2023-07-24 2023-07-24 Outpatient Jeovany WATTS [facility] [id number] Univers 13:30:00 13:30:00 [facility] 2023-04-04 2023-04-04 Outpatient Jeovany VILLASEÑOR [facility] [id number] Univers 11:30:00 11:30:00 [facility] 2023-04-04 2023-04-04 Outpatient Jeovany VILLASEÑOR [facility] [id number] Univers 11:00:00 11:00:00 [facility] 2023-03-17 2023-03-17 Outpatient Jeovany DUNN [facility] [id number] Univers 14:45:00 14:45:00 STEPHANIE vinse o f [facility] 2023-02-26 2023-02-26 [facility]phone [facility] [id number] Univers 00:00:00 00:00:00 Etta MACIEL 350.1.13.10 [place] [id number] [facility] 059 [facility] 2023-02-24 2023-02-24 Outpatient R CHARLEEN, [facility] [id number] Univers 00:00:00 00:00:00 YUSUF y [facility] 2023-02-21 2023-02-22 Emergency X VASUT, [facility] ERT [id number] Univers 19:37:00 00:05:00 JEFE vines [facility] 2023-02-21 2023-02-22 [facility] [id number] Univers 19:37:00 00:05:00 Jefe MACIEL 350.1.13.10 i [place] [id number] [facility] [address] [place] 2023-02-21 2023-02-21 Orders Doctor DEIRDRE 1.2.840.114 [id number] Univers 00:00:00 00:00:00 Only Unassigned, VELVET 350.1.13.10 ity of [place] [facility] 4.2.7.2.686 Laurent as [id number] [facility] [address] [place] 2023-02-21 2023-02-21 Telephone [facility] 1.2.840.114 [id number] Univers 00:00:00 00:00:00 Stephanie MACIEL 350.1.13.10 [place] [id number] [facility] NAL 204 [facility] 2023-02-20 2023-02-20 Telephone [facility] [id number] [id number] Univers 00:00:00 00:00:00 Robbi MACIEL 350.1.13.10 i ty of [place] [facility] [place] [id number] [address] 2023-02-18 2023-02-18 Outpatient R MAC [facility] [id number] Univers 08:11:06 08:10:00 SENDIL ity [facility] 2023-01-21 2023-01-21 [address] [facility] [id number] Univers 10:00:00 10:41:43 SENDIL ity [facility] 2023-01-21 2023-01-21 Office [facility] 1.2.840.114 [id number] [facility] 10:00:00 10:41:43 Visit Etta MACIEL 350.1.13.10 ity of [facility] [place] [id number] [address] 2023-01-07 2023-01-07 Refill [facility] 1.2.840.114 [id number] [facility] 00:00:00 00:00:00 Sendlucio MACIEL 350.1.13.10 [place] [id number] [address] 2022-12-26 2022-12-26 Outpatient R CUONG ARTHUR [facility] [id number] Univers 11:20:00 11:56:50 SANDHYA ALBERTOCurtis ity [facility] 2022-12-26 2022-12-26 Office [facility] 1.2.840.114 [id number] Univers 11:20:00 11:56:50 Visit Alberto MACIEL 350.1.13.10 ity of [place] [id number] [address] 2022-12-19 2022-12-19 Orders Doctor GILMORE 1.2.840.114 [id number] Univers 00:00:00 00:00:00 Only Unassigned, VELVET 350.1.13.10 ity of [place] [facility] 4.2.7.2.686 Laurent as [id number] [address] 2022-12-02 2022-12-02 Telephone Mac [facility] [id number] [id number] Univers 00:00:00 00:00:00 Etta MACIEL 350.1.13.10 it[place] of [place] [id number] Ga dical NAL 059 [facility] 2022-12-02 2022-12-02 Orders Doctor DEIRDRE 1.2.840.114 [id number] Univers 00:00:00 00:00:00 Only Unassigned, VELVET 350.1.13.10 ity of [place] [facility] 4.2.7.2.686 Laurent as [id number] [address] 2022-11-29 2022-11-29 Hotel Night Auditor 2, Adc Lab [facility] 1.2.840.114 [id number] Univers 09:30:00 10:56:55 Visit Etta Watts 350.1.13. 10 ity of [facility] 4.2.[place].2.[place] [id number] [facility] 353 [facility] 2022-11-29 2022-11-29 Outpatient R MAC [facility] [id number] Univers 10:00:00 10:32:38 SENDIL ity of [facility] 2022-11-29 2022-11-29 Office Mac [facility] 1.2.840.114 [id number] Univers 10:00:00 10:32:38 Visit Etta MACIEL 350.1.13.10 it[place] of [place] [id number] Ga dical NAL 059 [facility] 2022-11-21 2022-11-21 Nurse 1, Adc Infusion Nurse [facility] 1.2. 840.114 [id number] Univers 10:00:00 10:15:00 Visit Yusuf Villaseoñr 350.1.13.10 it[place] of [place]ICAL [id number] [facility] [address] 2022-11-21 2022-11-21 Outpatient R CHARLEEN [facility] [id number] Univers 10:00:00 10:00:00 YUSUF vines [facility] 2022-11-12 2022-11-12 Transition LIZETH Deluca 1.2.840.114 [id number] Univers 00:00:00 00:00:00 of Care Taniya CRAMER 350.1.13.10 i ty of [place] [id number] [facility] [address] 2022-11-07 2022-11-11 Hospital Ger [facility] 1.2.840.1 [id number] Univers 15:15:00 13:18:00 Encounter Ruthie Hester 350.1.13.10 [place] [id number] [facility] 081 Branch 2022-11-07 2022-11-07 Outpatient R DAVID [facility] [id number] Univers 14:20:00 14:47:42 BARBARA swift [facility] 2022-11-07 2022-11-07 Outpatient [facility] TRANG [id number] Univers 14:20:00 14:47:42 BARBARA murray [facility] 2022-11-07 2022-11-07 Urgent Barbara Hernandez [facility] 1.2.840 .114 [id number] Univers 14:20:00 14:47:42 Care Unknown, Attending HEALTH 350.1.13.10 ity maycol MACIEL 4.2.7.2.686 Laurent as [place]?BLEA [id number] Ga esha HERRERA [address] [place] [address] MEDICAL OFFICE BUILDING 2022-10-31 2022-10-31 Outpatient R CHARLEEN [facility] [id number] Univers 11:00:00 11:00:00 YUSUF vines [facility] 2022-05-23 2022-05-23 Nurse 1, Adc Infusion Nurse [facility] 1.2. 840.114 [id number] Univers 13:00:00 13:15:00 Visit Yusuf Villaseñor 350.1.13.10 [place]ICAL [id number] [facility] [address] [place] 2022-05-23 2022-05-23 Outpatient R [facility]ASE[facility] [id number] Univers 13:00:00 13:00:00 YUSUF irene [facility] 2022-05-23 2022-05-23 Orders Doctor DEIRDRE 1.2.840.114 [id number] Univers 00:00:00 00:00:00 Only Unassigned, VELVET 350.1.13.10 it[place] of [place] [facility] 4.2.7.2.686 Laurent as [id number] [address] 2022-04-30 2022-04-30 Outpatient [facility] [id number] Univers 13:00:00 13:00:00 YUSUF irene [facility] 2022-04-11 2022-04-11 Outpatient R [facility]ILLASE[facility] [id number] Univers 11:00:00 11:00:00 YUSUF vines [facility] 2022-04-05 2022-04-05 Outpatient [facility] [id number] Univers 11:30:00 12:40:58 [facility] 2022-04-05 2022-04-05 Office [facility] 1.2.140.398 [id number] Univers 11:30:00 12:40:58 Visit Yusuf Harrison [facility] 350.1.13.10 it y of [place] 4.2.7.2.686 Laurent as [place]?BLEA [id number] [address] MEDICAL OFFICE BUILDING 2022-03-29 2022-03-29 Orders Doctor DEIRDRE 1.2.840.114 [id number] Univers 00:00:00 00:00:00 Only Unassigned, VELVET 350.1.13.10 ity of [place] [facility]OSPITAL 4.2.7.2.686 Laurent as [phone] [address] 2022-03-14 2022-03-14 Nurse Therapy, Adc Covid Infusion [facility] 1.2.840.114 [id number] Univers 16:00:00 17:00:00 Visit Ivan Fuentes 350.1.13.10 ity [place]7.2.[place] [phone] [place] [address] [address] 2022-03-14 2022-03-14 Outpatient R [facility] [id number] Univers 16:00:00 16:00:00 IVAN vines [facility] 2022-03-14 2022-03-14 Orders Doctor DEIRDRE 1.2.840.114 [id number] Univers 00:00:00 00:00:00 Only Unassigned, VELVET 350.1.13.10 [facility] 4.2.7.2.686 Laurent as [phone] [address] 2022-03-13 2022-03-13 [facility] [id number] Univers 17:00:00 17:53:42 REENA swift [facility] 2022-03-13 2022-03-13 Urgent Deirdre Bowie [facility] 1.2.840.114 [id number] Univers 17:00:00 17:20:[address] [facility] 350.1.13.10 ity [facility] 4.2.7.2.686 Laurent as [place]?BLEA [phone] [address] MEDICAL OFFICE BUILDING 2022-03-13 2022-03-13 Outpatient [facility] [id number] Univers 17:00:00 17:00:00 REENA swift [facility] 2022-02-27 2022-02-27 Outpatient R [facility] [id number] Univers 14:16:04 23:59:00 YUSUF vines [facility] 2022-02-27 2022-02-27 [facility] 1.2.840.114 [id number] Univers 14:15:00 23:59:00 Encounter Yusuf MACIEL 350.1.13.10 ity [facility] [place] [phone] [facility] [address] 2021-10-25 2021-10-25 Nurse 1, Adc Infusion Nurse [facility] 1.2. 840.114 [id number] Univers 09:00:00 09:15:00 Visit Yusuf Villaseñor 350.1.13.10 ity of [place] 4.2.7.2.686 [facility] s SURGICAL [phone] [facility] [address] 2021-10-25 2021-10-25 Outpatient R [facility] [id number] Univers 09:00:00 09:00:00 YUSUF vines [facility] 2021-10-25 2021-10-25 Orders Doctor GILMORE 1.2.840.114 [id number] [facility] 00:00:00 00:00:00 Only Unassigned, VELVET 350.1.13.10 ity of [place] [facility] 4.2.7.2.686 Laurent as [id number] [facility] [address] 2021-10-11 2021-10-11 Outpatient R CHARLEEN [facility] [id number] Univers 09:30:00 09:30:00 YUSUF vines [facility] 2021-09-18 2021-09-21 Inpatient Iván Root [facility] [id number] [facility] 00:40:00 18:15:00 20 [facility] 2021-09-18 2021-09-18 Outpatient Iván CowanNW REF [id number] [facility] 18:46:00 18:46:00 80 [facility] 2021-09-14 2021-09-14 Outpatient Iván Root [facility] 3DAY BP00 [id number] [facility] 00:00:00 23:59:00 20 [facility] 2021-09-14 2021-09-14 Outpatient UNKNOWN HCACL LABO [id number] [facility] 17:46:00 17:46:00 15 [facility] 2021-08-16 2021-08-16 Lab Neida Blank 1. 2.840.1 [id number] Methodi 14:00:00 14:05:00 Iván Cowan [address].1.[address] 3.430.2.7 Hospit a .3.866318 l .8 2021-08-15 2021-08-15 Orders Edward 1.2.840.1 [id number] Methodi 00:00:00 00:00:00 Only jeff, 41336.1.[address] [place] 3.430.2.7 Hospi ta Amezquita .3.222463 l .8 2021-04-12 2021-04-12 Outpatient R CHARLEEN [facility] [id number] Univers 09:30:00 09:30:00 YUSUF vines [facility] 2021-04-12 2021-04-12 Nurse 1, [facility] Infusion Nurse [facility] 1.2. 840.114 [id number] Univers 09:09:47 09:24:47 Visit Yusuf Villaseñor 350.1.13.10 jasmyn [facility] 4.2.7.2.[place] [id number] [facility] 0[address] 2021-04-06 2021-04-06 Outpatient R CHARLEEN [facility] [id number] Univers 10:00:00 10:00:00 YUSUF vines [facility] 2021-03-30 2021-03-30 Office Yusuf Villaseñor [facility] 1.2.840. 114 [id number] Univers 11:03:18 12:12:59 Visit Meaghan Varghese 350.1.13.10 [place].2.[place] [phone] Ga dical [facility] [address] [facility] 2021-03-30 2021-03-30 Outpatient R HALIMA [facility] [id number] Univers 11:00:00 11:00:00 MEAGHAN vines [facility] 2021-01-02 2021-01-02 Orders Doctor GILMORE 1.2.840.114 [id number] Univers 00:00:00 00:00:00 Only UnassignedVELVET 350.1.13.10 it[place] of [place] HOSPITAL 4.2.7.2.686 Laurent as [phone] [address] 2020-12-19 2020-12-19 Telephone Charleen [facility] 1.2.840.114 [id number] Univers 00:00:00 00:00:00 Yusuf Maciel 350.1.13.10 i ty [place].2.[place] [phone] Ga dical nal [address] [facility] 2020-12-08 2020-12-08 Orders Doctor DEIRDRE 1.2.840.114 [id number] Univers 00:00:00 00:00:00 Only Unassigned, VELVET 350.1.13.10 ity of [place] HOSPITAL 4.2.7.2.686 Laurent as [phone] [address] 2020-12-07 2020-12-07 Surgery [facility] 1.2.791.182 [id number] Univers 09:00:00 11:18:00 Riki Maciel 350.1.13.10 i [place].2.[place] [phone] [facility] 0[address] 2020-12-07 2020-12-07 [facility] 1.2.840.114 [id number] Univers 07:58:00 10:51:00 Encounter Riki Maciel 350.1.13.10 [place].2.[place] [phone] [facility] 0[address] 2020-12-07 2020-12-07 Orders Doctor DEIRDRE 1.2.840.114 [id number] Univers 00:00:00 00:00:00 Only Unassigned, VELVET 350.1.13.10 it[place] HOSPITAL 4.2.7.2.686 Laurent as [phone] [address] 2020-12-06 2020-12-06 Laboratory Only, Adc Test [facility] 1.2.840. 114 [id number] Univers 08:50:27 09:05:27 Only Riki Reyez 350.1.13.10 it[place].7.2.[place] [id number] [facility] 353 [address] 2020-12-06 2020-12-06 Hotel Night Auditor Alfredo, Adc Lab Main [facility] 1.2.8 40.114 [id number] Univers 08:49:30 09:04:30 Visit Riki Reyez 350.1.13.10 [place].2.[place] [phone] [facility] [address] [facility] 2020-12-06 2020-12-06 Surgery [facility] 1.2.840.114 [id number] Univers 08:45:00 08:46:00 Encounter Riki Maciel 350.1.13.10 [place] 4.2.7.2.686 [place] [phone] [facility] [address] [place] 2020-12-06 2020-12-06 Outpatient [facility]ov[facility] [id number] Univers 08:15:00 08:15:00 RIKI irene [facility] 2020-12-06 2020-12-06 Orders Doctor GILMORE 1.2.840.114 [id number] Univers 00:00:00 00:00:00 Only Unassigned, VELVET 350.1.13.10 ity of [place] [facility] 4.2.7.2.686 Laurent as [id number] [facility] [address] 2020-11-06 2020-11-06 Outpatient Jeovany HOLMAN [facility] [id number] Univers 15:30:00 15:30:00 AIYANA vines [facility] 2020-10-16 2020-10-16 Outpatient Jeovany HOLMAN [facility] [id number] Univers 16:10:00 16:10:00 AIYANA vines [facility] 2020-10-06 2020-10-06 Surgery [facility] 1.2.840.114 [id number] Univers 08:54:38 23:59:00 Encounter Riki Maciel 350.1.13.10 [place] 4.2.7.2.[place] [id number] [facility] [address] [place] [place] 2020-10-06 2020-10-06 Outpatient Jeovany REYEZ [facility] [id number] Univers 08:45:00 08:45:00 RIKI ity of [facility] 2020-10-06 2020-10-06 Laboratory Only, Adc Test [facility] 1.2.840. 114 [id number] Univers 08:28:29 08:43:29 Only Riki Reyez 350.1.13.10 ity of [place] 4.2.7.2.686 [facility] [phone] [facility] [address] 2020-09-17 2020-09-17 Patient Sixto [facility] 1.2.840.114 [id number] Univers 00:00:00 00:00:00 Outreach Nathanael PRIMARY 350.1.13.10 i ty [facility] 4.2.7.2.686 [facility] [phone] Ga dical [address] 2020-08-30 2020-08-30 Ambulatory nullFlavo [facility] 35 [id number] Memoria 15:00:00 15:00:00 Pre-Reg r Specialty [address] [facility] 2020-08-30 2020-08-30 Ambulatory nullFlavo [facility] 35 [id number] Memoria 15:00:00 15:00:00 Pre-Reg r Specialty 04 l [facility] 2020-08-30 2020-08-30 Outpatient Fitz, MG [facility] [id number] 09:00:00 09:00:00 Mandie L 04 2020-08-23 2020-08-24 Outpatient nullFlavo [facility] 35 [id number] Memoria 15:00:00 05:59:59 r Specialty 05 l [facility] 2020-08-23 2020-08-24 Outpatient nullFlavo [facility] 35 [id number] Memoria 15:00:00 05:59:59 r Specialty 05 l [facility] 2020-08-23 2020-08-23 Outpatient Fitz MG [facility] [id number] 09:00:00 23:59:59 Mandie L 05 2020-08-23 2020-08-23 Outpatient MHIE MHIE [id number] Memoria 09:00:00 09:00:00 05 l Kevin 2020-07-26 2020-07-26 Outpatient MHIE MHIE [id number] Memoria 11:00:00 11:00:00 04 l Kevin 2020-06-14 2020-06-15 Outpatient nullFlavo MG Multi 35 [id number] Memoria 16:00:00 04:59:59 r Specialty 03 l Clinic [place] 2020-06-14 2020-06-15 Outpatient nullFlavo [facility] 35 [id number] Memoria 16:00:00 04:59:59 r Specialty 03 l Clinic [place] Laisha miller Sergio 2020-06-14 2020-06-14 Outpatient Stall[place], MG MG [id number] 11:00:00 23:59:59 Mandie L 03 2020-06-14 2020-06-14 Outpatient MHIE MHIE [id number] Memoria 11:00:00 11:00:00 03 charles Martines 2020-04-11 2020-04-11 [facility] Yusuf [facility] 1.2.840 .114 [id number] Univers 09:20:00 23:59:00 Encounter Radiology [place] 350.1.13.10 ity of [place] 4.2.7.2.686 [facility] [phone] [address] 2020-04-11 2020-04-11 [facility] 1.2.840 .114 [id number] 09:20:00 23:59:00 Encounter Radiology [place] 350.1.13.10 [place] 4.2.7.2.686 [place] [id number] [facility] 2020-04-11 2020-04-11 [facility] 1.2.840.114 [id number] 09:00:00 09:19:00 Encounter Yusuf Harrison [place] 350.1.13.10 [place] 4.2.7.2.686 [place] [phone] [facility] 2020-04-11 2020-04-11 [facility] 1.2.840.114 [id number] Univers 09:00:00 09:19:00 Encounter Yusuf [place] 350.1.13.10 ity of [place] 4.2.7.2.686 [facility] [phone] [place] [address] [address] 2020-04-11 2020-04-11 Outpatient R [facility] [id number] Univers 00:00:00 00:00:00 YUSUF vines [facility] 2020-04-11 2020-04-11 Orders Doctor DEIRDRE 1.2.840.114 [id number] 00:00:00 00:00:00 Only Unassigned, VELVET 350.1.13.10 [place] [facility] 4.2.7.2.686 [id number] [facility] 2020-04-11 2020-04-11 Orders Doctor DEIRDRE 1.2.840.114 [id number] Univers 00:00:00 00:00:00 Only Unassigned, VELVET 350.1.13.10 it[place] of [place] HOSPITAL 4.2.7.2.686 Laurent as [id number] [address] 2020-03-31 2020-03-31 [facility] 1.2.265.774 [id number] 11:28:01 12:47:12 Visit Yusuf Maciel 350.1.13.10 [place] 4.2.7.2.686 Professio [phone] [address] 2020-03-31 2020-03-31 Office [facility] 1.2.855.129 [id number] Univers 11:28:01 12:47:12 Visit Yusuf Maciel 350.1.13.10 i [place].2.[place] [phone] Ga dical [address] 2020-03-31 2020-03-31 Out[facility] [id number] Univers 11:30:00 11:30:00 YUSUF vines [facility] 2019-10-15 2019-10-15 Office [facility] 1.2.608.473 [id number] Univers 11:31:15 12:29:05 Visit Yusuf Maciel 350.1.13.10 i [place].2.[place] [phone] Ga dical [address] 2019-10-15 2019-10-15 Outpatient [facility] [id number] Univers 11:30:00 12:29:05 YUSUF vines [facility] 2019-06-02 2019-06-02 Bedded nullFlavo [facility] [id number] Memoria 10:35:00 18:05:00 Outpatient r [address] 2019-06-02 2019-06-02 Bedded nullFlavo [facility] [id number] Memoria 10:35:00 18:05:00 Outpatient r [address] 2019-06-02 2019-06-02 Outpatient Jc [facility] [id number] 05:35:00 13:05:00 Pilo R 04 2019-06-02 2019-06-02 Outpatient [facility] CAR 7504 [facility] 05:35:00 05:35:00 2019-05-19 2019-05-20 Outpt Diag nullFlavo [facility] [id number] Memoria 18:18:00 04:59:00 Services r Outpatient 05 l Imaging - [place] [facility] 2019-05-19 2019-05-20 Outpt Diag nullFlavo [facility] [id number] Memoria 18:18:00 04:59:00 Services r Outpatient 05 l Imaging - [place] [facility] 2019-05-19 2019-05-19 Outpatient [place], 2.16.840. 2.16.840.1. [id number] 13:18:00 23:59:00 Pilo Th[place] 1.911786. 888493.3.61 05 3.615.101 5.101 2019-05-05 2019-05-06 Outpatient nullFlavo [facility] 898 [id number] Memoria 19:40:00 04:59:00 r Disease 03 l [facility] 2019-05-05 2019-05-06 Outpatient nullFlavo [facility] 160 [id number] Memoria 19:40:00 04:59:00 r Disease 03 l [facility] 2019-05-05 2019-05-05 Outpatient Glory [facility] [id number] 14:40:00 23:59:00 Atilla 03 2019-05-05 2019-05-05 Outpatient [facility] [id number] [facility] 14:40:00 14:40:00 2019-04-14 2019-04-14 [facility] 1.2.840.114 [id number] [facility] 11:00:22 23:59:00 Encounter Yusuf H Raheem 350.1.13.10 [place] [id number] [facility] [address] 2019-04-09 2019-04-09 Office SHAHBAZ Villaseñor 1.2.837.080 [id number] Univers 08:26:57 10:14:43 Visit Yusuf Maciel 350.1.13.10 i [place] 4.[place].7.2.[place] [facility] [phone] Ga dical nal [address] Building 2019-04-09 2019-04-09 Orders Doctor DEIRDRE 1.2.840.114 [id number] Univers 00:00:00 00:00:00 Only Unassigned, VELVET 350.1.13.10 it[place] of [place] [facility] 4.2.7.2.686 Laurent as [id number] [facility] [address] 2016-10-28 2016-10-29 Bedded [facility] [id number] Memoria 18:02:00 15:07:00 Outpatient r [place] 02 [facility] 2016-10-28 2016-10-29 Bedded [facility] [id number] Memoria 18:02:00 15:07:00 Outpatient r [place] 02 [facility] 2016-10-28 2016-10-29 Outpatient Jc [facility] [id number] 12:02:00 09:07:00 Pilo R 02 2016-04-22 2016-04-27 Inpatient [facility] [id number] Memoria 00:43:00 01:07:00 r Kevin 41 [facility] 2016-04-22 2016-04-27 Inpatient [facility] [id number] Memoria 00:43:00 01:07:00 r [place] 41 [facility] 2016-04-21 2016-04-26 Outpatient Jc [facility] [id number] 19:43:00 20:07:00 Pilo R 41 2015-03-02 2015-03-03 [facility] [id number] Memoria 17:37:00 04:59:00 Services r Outpatient 00 l [facility] 2015-03-02 2015-03-03 Outpt Diag nullFlavo [facility] [id number] Memoria 17:37:00 04:59:00 Services r Outpatient 00 l Imaging Kevin [place] 2015-03-02 2015-03-02 Outpatient Cayden Fong 2.16.840. 2.16.840.1. [id number] 12:37:00 23:59:00 1.447651. 339087.3.61 00 3.615.0.1 5.0.312 68 0122-07-09 2015-03-[address] [facility] [id number] Memoria 13:30:00 13:30:00 00 [facility] 2015-03-02 2015-03-[address] [facility] [id number] Memoria 13:30:00 13:30:00 00 [facility] 2014-03-03 2014-03-04 Outpt Diag nullFlavo [facility] [id number] Memoria 16:41:00 04:59:00 Services r Outpatient 03 l Imaging [facility] 2014-03-03 2014-03-04 Outpt Diag nullFlavo [facility] [id number] Memoria 16:41:00 04:59:00 Services r Outpatient 03 l Imaging [facility] 2014-03-03 2014-03-03 Outpatient Cayden Fong 2.16.840. 2.16.840.1. [id number] 11:41:00 23:59:00 [id number]. 687543.3.61 03 3.615.0.1 5.0.101 01 Results Test Description Test Time Test Comments Results Result Comments Source ABORH Confirmation (Lab Only) 2023-02-22 03:28:00 Test Item Value Reference Range Interpretation Comme nts ABO & RH (test code = 20) O Positive [facility] (91927)2023-02-22 01:27:45 Test Item Value Reference Range Interpretation Comments NA (test code = 138 mmol/L 135-145 8858827131) K (test code = 4.8 mmol/L 3.5-5.0 0061025517) CL (test code = 98 mmol/L 98-108 8824198843) CO2 TOTAL (test code = 33 mmol/L 23-31 H 4065436150) AGAP (test code = 7 2-16 9691547969) BUN (test code = 38 mg/dL 7-23 H 9740943150) GLUCOSE (test code = 182 mg/dL 70-110 H 5291898441) CREATININE (test code = 1.06 mg/dL 0.50-1.04 H 1168991960) TOTAL BILI (test code = 0.4 mg/dL 0.1-1.1 0570207209) CALCIUM (test code = 9.0 mg/dL 8.6-10.6 2454528747) T PROTEIN (test code = 8.0 g/dL 6.3-8.2 2912914562) ALBUMIN (test code = 4.1 g/dL 3.5-5.0 5602587932) ALK PHOS (test code = 63 U/L 34-122 1572085049) ALTv (test code = 27 U/L 5-35 1742-6) AST(SGOT) (test code = 28 U/L 13-40 0627680009) eGFR (test code = 48.9 mL/min/1.73m2 6862856025) THO (test code = THO) Association of Glomerular Filtration Rate (GFR) and Staging of Kidney Disease* + --+ --+ ------+| GFR (mL/min/1.73 m2) ?| With Kidney Damage ?| ?Without Kidney Damage+ --------+ --------+ +| ?>90 ?| ?Stage one ?| ? Normal ?+ ---+ ---+ -------+| ?60-89 ?| ?Stage two ?| ? Decreased GFR ? + --+ --+ ------+| ?30-59 ?| ?Stage three ?| ? Stage three ? + --+ --+ ------+| ?15-29 ?| ?Stage four ? | ? Stage four ?+ ---+ ---+ -------+| ?<15 (or dialysis) ? ?| ?Stage five ? | ? Stage five ?+ ---+ ---+ -------+ *Each stage assumes the associated GFR level has been in effect for at least three months. ?Stages 1 to 5, with or without kidney disease, indicate chronic kidney disease. Notes: Determination of stages one and two (with eGFR >59mL/min/1.73 m2) requires estimation of kidney damage for at least three months as defined by structural or functional abnormalities of the kidney, manifested by either:Pathological abnormalities or Markers of kidney damage (including abnormalities in the composition of the blood or urine or abnormalities in imaging tests). Lab Interpretation Abnormal (test code = 34671-3) [facility]IV[facility] PARTIAL THRMPLAS [id number] 01:23:27 Test Item Value Reference Range Interpretation Comments APTT Patient (test 28 See_Comment [Automat ed code = 3173-2) message] The system which generated this result transmitted reference range : 23 - 38 Seconds . The reference range was not used to interpr et this result as normal/abnormal . THO (test code = THO) The [facility] patient population mean normal value for aPTT is 30 seconds. Lab Interpretation Normal (test code = 63387-9) [facility] TexasProthrombin Time / [id number] 01:21:06 Test Item Value Reference Range Interpretation Comments PROTIME PATIENT (test 13.8 See_Comment [Auto mated message] code = 5964-2) The system wh ich generated this result transmitted ref erence range: 12.0 - 1 4.7 Seconds. The re ference range was not u sed to interpret this result as normal/abnor mal. INR (test code = 6301-6) 1.1 Nor mal INR <1.1; Warfarin Therap eutic range 2.0 to 3. 0 or 2.5 to 3.5, dep ending upon the indica tions. Lab Interpretation (test Normal code = 86529-4) [facility] TexasCBC WITH [id number] 01:15:22 Test Item Value Reference Range Interpretation Comments WBC (test code = 6.26 See_Comment [Automated 8490-2) message] The sy stem which generated this result transmitted reference range : 4.30 - 11.10 10*3/?L. The reference range was not used to interpret this result as normal/abnormal . RBC (test code = 3.73 See_Comment L [Automated 339-8) message] The sy stem which generated this result transmitted reference range : 3.93 - 5.25 10*6/?L. The reference range was not used to interpret this result as normal/abnormal . HGB (test code = 11.4 g/dL 11.6-15.0 L 718-7) HCT (test code = 35.1 % 35.7-45.2 L 4544-3) MCV (test code = 94.1 fL 80.6-95.5 787-2) MCH (test code = 30.6 pg 25.9-32.8 785-6) MCHC (test code = 32.5 g/dL 31.6-35.1 786-4) RDW-SD (test code = 45.5 fL 39.0-49.9 11605-5) RDW-CV (test code = 13.2 % 12.0-15.5 788-0) PLT (test code = 232 See_Comment [Automated 777-3) message] The sy stem which generated this result transmitted reference range : 166 - 358 10*3/ ?L. The reference r robbie was not used to interpret this result as normal/abnormal . MPV (test code = 8.9 fL 9.5-12.9 L 72013-3) NRBC/100 WBC (test 0.0 See_Comment [Automat ed code = 2582587225) message] The system which generated this result transmitted reference range : 0.0 - 10.0 /100 WBCs. The refer ence range was not u sed to interpret th is result as normal/abnormal . NRBC x10^3 (test code See_Comment [Auto mated = 4032512237) message] The s ystem which generated this result transmitted reference range : 10*3/?L. The reference range was not used to interpret this result as normal/abnormal . GRAN MAT (NEUT) % 60.4 % (test code = 770-8) IMM GRAN % (test code 0.50 % = 4815239433) LYMPH % (test code = 25.7 % 736-9) MONO % (test code = 9.1 % 5905-5) EOS % (test code = 3.7 % 713-8) BASO % (test code = 0.6 % 706-2) GRAN MAT x10^3(ANC) 3.78 10*3/uL 1.88-7.09 (test code = 0306217438) IMM GRAN x10^3 (test 0.03 10*3/uL 0.00-0.06 code = 5148700000) LYMPH x10^3 (test code 1.61 10*3/uL 1.32-3.29 = 731-0) MONO x10^3 (test code 0.57 10*3/uL 0.33-0.92 = 742-7) EOS x10^3 (test code = 0.23 10*3/uL 0.03-0.39 711-2) BASO x10^3 (test code 0.04 10*3/uL 0.01-0.07 = 704-7) Lab Interpretation Abnormal (test code = 65296-0) [facility] TexasType and Screen - ONCE [id number] 01:10:00 Test Item Value Reference Range Interpretation Comments ABO & RH (test code = 20) O Positive IAT (test code = 1185) Negative [facility] [id number] 22:26:47 Test Item Value Reference Range Interpretation Comments TROPONIN I (test code = 0.007 ng/mL <=0.034 5675800575) THO (test code = THO) Reference (Normal) Range (defined by the 99th percentile reference limit): <= 0.034 ng/mL Note: Cardiac troponin begins to rise 3-4 hours after the onset of ischemia. Repeat in 4-6 hours if the sample was drawn within 3-4 hours of the onset of the symptom and found normal. Diagnosis of myocardial injury is made with acute changes in cTn concentrations with at least one serial sample above the 99th percentile upper reference limit (URL), taken together with the patient's clinical presentation. Biotin has been reported to cause a negative bias, interpret results relative to patient's use of biotin. Lab Interpretation Normal (test code = 64946-2) [facility] [id number] 13:50:29 Test Item Value Reference Range Interpretation Comments IRON (test code = 3167572041) 23 ug/dL 50-160 L TIBC (test code = 8575256547) 223 ug/dL 250-410 L % FE SAT (test code = 0631947765) 10 % 20-50 L Lab Interpretation (test code = Abnormal 86332-1) [facility] [id number] 20:53:04 Test Item Value Reference Range Interpretation Comments TROPONIN I (test code = 0.007 ng/mL <=0.034 [id number]) THO (test code = THO) Reference (Normal) Range (defined by the 99th percentile reference limit): <= 0.034 ng/mL Note: Cardiac troponin begins to rise 3-4 hours after the onset of ischemia. Repeat in 4-6 hours if the sample was drawn within 3-4 hours of the onset of the symptom and found normal. Diagnosis of myocardial injury is made with acute changes in cTn concentrations with at least one serial sample above the 99th percentile upper reference limit (URL), taken together with the patient's clinical presentation. Biotin has been reported to cause a negative bias, interpret results relative to patient's use of biotin. Lab Interpretation Normal (test code = 05766-0) [id number] 20:50:05 Test Item Value Reference Range Interpretation Comments NT-proBNP (test code = 5920 pg/mL <=450 H [id number]) THO (test code = THO) Biotin has been reported to cause a negative bias, interpret results relative to patient's use of biotin. Lab Interpretation (test Abnormal code = 82294-2) [facility] (08921)2022-11-07 20:41:24 Test Item Value Reference Range Interpretation Comments NA (test code = 137 mmol/L 135-145 6296211537) K (test code = 4.5 mmol/L 3.5-5.0 4712759772) CL (test code = 103 mmol/L 98-108 9078314461) CO2 TOTAL (test code = 25 mmol/L 23-31 3710467157) AGAP (test code = 9 2-16 6686647516) BUN (test code = 37 mg/dL 7-23 H 5468553828) GLUCOSE (test code = 130 mg/dL 70-110 H 0972035474) CREATININE (test code = 1.13 mg/dL 0.50-1.04 H 8940870978) TOTAL BILI (test code = 0.7 mg/dL 0.1-1.3 1768872641) CALCIUM (test code = 8.3 mg/dL 8.6-10.6 L 9976812315) T PROTEIN (test code = 6.8 g/dL 6.3-8.2 2315517454) ALBUMIN (test code = 3.2 g/dL 3.5-5.0 L 7515179480) ALK PHOS (test code = 53 U/L 34-122 6001604914) ALTv (test code = 27 U/L 5-35 1742-6) AST(SGOT) (test code = 25 U/L 13-40 8332484460) eGFR (test code = 45.5 mL/min/1.73m2 6429199373) THO (test code = THO) Association of Glomerular Filtration Rate (GFR) and Staging of Kidney Disease* + --+ --+ ------+| GFR (mL/min/1.73 m2) ?| With Kidney Damage ?| ?Without Kidney Damage+ --------+ --------+ +| ?>90 ?| ?Stage one ?| ? Normal ?+ ---+ ---+ -------+| ?60-89 ?| ?Stage two ?| ? Decreased GFR ? + --+ --+ ------+| ?30-59 ?| ?Stage three ?| ? Stage three ? + --+ --+ ------+| ?15-29 ?| ?Stage four ? | ? Stage four ?+ ---+ ---+ -------+| ?<15 (or dialysis) ? ?| ?Stage five ? | ? Stage five ?+ ---+ ---+ -------+ *Each stage assumes the associated GFR level has been in effect for at least three months. ?Stages 1 to 5, with or without kidney disease, indicate chronic kidney disease. Notes: Determination of stages one and two (with eGFR >59mL/min/1.73 m2) requires estimation of kidney damage for at least three months as defined by structural or functional abnormalities of the kidney, manifested by either:Pathological abnormalities or Markers of kidney damage (including abnormalities in the composition of the blood or urine or abnormalities in imaging tests). Lab Interpretation Abnormal (test code = 10224-7) [facility] WITH [id number] 20:33:19 Test Item Value Reference Range Interpretation Comments WBC (test code = 7.24 See_Comment [Automated 6690-2) message] The sy stem which generated this result transmitted reference range : 4.30 - 11.10 10*3/?L. The reference range was not used to interpret this result as normal/abnormal . RBC (test code = 2.80 See_Comment L [Automated 789-8) message] The sy stem which generated this result transmitted reference range : 3.93 - 5.25 10*6/?L. The reference range was not used to interpret this result as normal/abnormal . HGB (test code = 8.2 g/dL 11.6-15.0 L 718-7) HCT (test code = 26.3 % 35.7-45.2 L 4544-3) MCV (test code = 93.9 fL 80.6-95.5 787-2) MCH (test code = 29.3 pg 25.9-32.8 785-6) MCHC (test code = 31.2 g/dL 31.6-35.1 L 786-4) RDW-SD (test code = 50.0 fL 39.0-49.9 H 53125-2) RDW-CV (test code = 14.3 % 12.0-15.5 788-0) PLT (test code = 293 See_Comment [Automated 777-3) message] The sy stem which generated this result transmitted reference range : 166 - 358 10*3/ ?L. The reference r robbie was not used to interpret this result as normal/abnormal . MPV (test code = 8.8 fL 9.5-12.9 L 84482-6) NRBC/100 WBC (test 0.0 See_Comment [Automat ed code = 7357784073) message] The system which generated this result transmitted reference range : 0.0 - 10.0 /100 WBCs. The refer ence range was not u sed to interpret th is result as normal/abnormal . NRBC x10^3 (test code See_Comment [Auto mated = 8677756672) message] The s ystem which generated this result transmitted reference range : 10*3/?L. The reference range was not used to interpret this result as normal/abnormal . GRAN MAT (NEUT) % 73.7 % (test code = 770-8) IMM GRAN % (test code 0.60 % = 6392192666) LYMPH % (test code = 10.6 % 736-9) MONO % (test code = 11.0 % 5905-5) EOS % (test code = 3.5 % 713-8) BASO % (test code = 0.6 % 706-2) GRAN MAT x10^3(ANC) 5.34 10*3/uL 1.88-7.09 (test code = 8104097354) IMM GRAN x10^3 (test 0.04 10*3/uL 0.00-0.06 code = 2947825823) LYMPH x10^3 (test code 0.77 10*3/uL 1.32-3.29 L = 731-0) MONO x10^3 (test code 0.80 10*3/uL 0.33-0.92 = 742-7) EOS x10^3 (test code = 0.25 10*3/uL 0.03-0.39 711-2) BASO x10^3 (test code 0.04 10*3/uL 0.01-0.07 = 704-7) Lab Interpretation Abnormal (test code = 25445-5) [facility] Test Item Value Reference Range Interpretation Comments SURGICAL (test code = SR) --------RUN DATE: 09/21/21 [facility] - LAB PAGE 1 RUN TIME: 1113 Specimen Inquiry RUN USER: INTERFACE --------PATIENT: GOYAL,PEARLENE ARANA LOC: P.5N POD B U #: [id number] AGE/SX: 86/F ROOM: [facility]80 RE09/18/21REG DR: Iván Cowan MD : 35 BED: 1 DIS: STATUS: ADM IN TLOC: -------- SPEC #: [id number] RECD: 09/18/21-1327 [id number] BALDO: 09/18/21-[address]: Iván Cowan MD ENTERED: 09/18/21-133 SP TYPE: SURGICAL OTHR DR: Sam Mc MD ORDERED: 53981, 84201/2, ANATOMIC SPEC HISTOLOGY: TISSUE ID [id number] PCS [...] is opened to reveal green-yellow fecal material. Bridge Design Engineer sections are submitted in cassettes A1 and A2 as follows: A1 - margin; A2 -industrial relations representative sections of dilated bowel- full thickness. [...] CONTINUED ON NEXT PAGE --------RUN DATE: 09/21/21 [facility] - LAB PAGE 2 RUN TIME: 1113 Specimen Inquiry RUN USER: INTERFACE --------SPEC #: [id number] PATIENT: JASON GOYAL #[id number] (Continued) GROSS DESCRIPTION (Continued) average circumference ranging [...] identified. Two unremarkable colorectal donuts arealso received. Bridge Design Engineer sections are submitted as follows: B1 - proximal margin; B2-distal margin; B3 - industrial relations representative section of mesenteric margin and radial margin; B4 to B6- proximal serosal scar with diverticula; B7 - industrial relations representative sections at middle area ofserosal fibrosis; B8 - industrial relations representative sections at distal mural disruption; B9 and B10 -candidate lymph nodes; B11 - industrial relations representative section from non-designated donuts; B12 to B14- additional soft tissue with possible lymph nodes. C. Received in formalin, labeled with patient's name, medical record number and "foreignbody rectum". It consists of a 3.0 x 1.5 x 0.9 cm portion of fibroadipose with embeddedstitches. Bridge Design Engineer sections are submitted in cassette C. JE/ks Technical component performed at [facility], [place], [address] MICROSCOPIC DESCRIPTION NEGATIVE FOR MALIGNANCY. PERFORMED AND INCORPORATED INTO THE FINAL DIAGNOSIS. CLINICAL INFORMATION Diverticular stricture (per op note) Signed SIGNATURE ON FILE Steve Shell 09/21/21 1113 -------- END OF REPORT BASIC METABOLIC [id number] 08:32:00 Test Item Value Reference Range Interpretation [...] New = CA) Reference Range Sep 2020 [id number] 08:32:00 Test Item Value Reference Range Interpretation Comments MAGNESIUM (test code = 1.3 mg/dL 1.6-2.6 L Pleas e note: New MAG) Reference Range Sep 2020 CBC W/AUTO [id number] 08:16:00 Test Item Value Reference Range Interpretation [...] 0.02 x10 3/uL 0.0-0.20 N RECOLLECTCBC W/MANUAL [id number] 05:55:00 Test Item Value Reference Range Interpretation [...] code NORMAL NORMAL = PLTMORPH) BASIC METABOLIC [id number] 05:04:00 Test Item Value Reference Range Interpretation [...] New = CA) Reference Range Sep 2020 [id number] 05:04:00 Test Item Value Reference Range Interpretation Comments MAGNESIUM (test code = 2.0 mg/dL 1.6-2.6 N Pleas e note: New MAG) Reference Range Sep 2020 CBC W/AUTO [id number] 04:41:00 Test Item Value Reference Range Interpretation [...] 0.01 x10 3/uL 0.0-0.20 N BASIC METABOLIC [id number] 04:31:00 Test Item Value Reference Range Interpretation [...] New = CA) Reference Range Sep 2020 [id number] 04:31:00 Test Item Value Reference Range Interpretation Comments MAGNESIUM (test code = 1.5 mg/dL 1.6-2.6 L Pleas e note: New MAG) Reference Range Sep 2020 Novel Coronavirus 2018 [id number] 14:55:00 Test Item Value Reference Range Interpretation [...] det ection of nucleic acids f rom sttPQJD-BaA-1 v irus and diagnosis of SA RS-CoV-2 virusinfection. It is an Emergency Use Authorization ( EUA) testauthorized by the U.S. FDA. First test? UnknownEmployed in Healthcare? UnknownSymptomatic as defined by CDC? UnknownHospitalizeddue to COVID? UnknownIn ICU due to COVID? UnknownResident in a congregate care setting? Unknown? NoAge at collection: Jeremy Coronavirus 2019 [id number] 14:55:00 Test Item Value Reference Range Interpretation [...] det ection of nucleic acids f rom wubXCHC-AjE-2 v irus and diagnosis of SA RS-CoV-2 virusinfection. It is an Emergency Use Authorization ( EUA) testauthorized by the U.S. FDA. First test? UnknownEmployed in Healthcare? UnknownSymptomatic as defined by CDC? UnknownHospitalizeddue to COVID? UnknownIn ICU due to COVID? UnknownResident in a congregate care setting? Unknown? NoAge at collection: YBASIC METABOLIC [id number] 11:15:00 Test Item Value Reference Range Interpretation [...] CA) Reference Range Sep 2020 CBC W/AUTO [id number] 10:57:00 Test Item Value Reference Range Interpretation [...] BA#) 0.05 x10 3/uL 0.0-0.20 N Gastrointestinal [id number] 02:35:09 Test Item Value Reference Interpretation Comments [...] Rotavirus PCR (test Not Detected code = 1842024) Salmonella PCR (test Not Detected code = [...] PCR Not Detected (test code = 7124) [id number] 02:35:09 Test Item Value Reference Interpretation Comments [...] Rotavirus PCR (test Not Detected code = 7283140) Salmonella PCR (test Not Detected code = [...] PCR Not Detected (test code = 7124) [facility] [id number] 15:25:00 Test Item Value Reference Range Interpretation Comments Result 2 (Urine Culture) See Result Comment (test code = Result 2 (Urine Culture)) [facility] [id number] 15:25:00 Test Item Value Reference Range Interpretation Comments Result 2 (Urine Culture) See Result Comment (test code = Result 2 (Urine Culture)) [facility] LAB [id number] 15:25:00 Test Item Value Reference Range Interpretation Comments Result 2 (Urine Culture) See Result Comment (test code = Result 2 (Urine Culture)) [facility] LAB [id number] 15:25:00 Test Item Value Reference Range Interpretation Comments Result 2 (Urine Culture) See Result Comment (test code = Result 2 (Urine Culture)) [facility] LAB [id number] 15:25:00 Test Item Value Reference Range Interpretation Comments Result 2 (Urine Culture) See Result Comment (test code = Result 2 (Urine Culture)) [facility] LAB [id number] 15:25:00 Test Item Value Reference Range Interpretation Comments Result 2 (Urine Culture) See Result Comment (test code = Result 2 (Urine Culture)) [facility] LAB [id number] 15:25:00 Test Item Value Reference Range Interpretation Comments Result 2 (Urine Culture) See Result Comment (test code = Result 2 (Urine Culture)) [facility] [id number] 15:25:00 Test Item Value Reference Range Interpretation Comments Result 2 (Urine Culture) See Result Comment (test code = Result 2 (Urine Culture)) [facility] [id number] 15:25:00 Test Item Value Reference Range Interpretation Comments Result 2 (Urine Culture) See Result Comment (test code = Result 2 (Urine Culture)) [facility] LAB [id number] 15:25:00 Test Item Value Reference Range Interpretation Comments Result 2 (Urine Culture) See Result Comment (test code = Result 2 (Urine Culture)) [facility] [id number] 15:25:00 Test Item Value Reference Range Interpretation Comments Result 2 (Urine Culture) See Result Comment (test code = Result 2 (Urine Culture)) [facility] LAB [id number] 15:25:00 Test Item Value Reference Range Interpretation Comments Result 2 (Urine Culture) See Result Comment (test code = Result 2 (Urine Culture)) [id number] 14:36:00 Test Item Value Reference Range Interpretation Comments POC Activated Clotting Time (test code 186 s = POC Activated Clotting Time) [facility] LakeCxajczjVUBQFOPSRD5842-46-76 14:36:00 Test Item Value Reference Range Interpretation Comments POC Activated Clotting Time (test code 186 s = POC Activated Clotting Time) [facility] [id number] 14:36:00 Test Item Value Reference Range Interpretation Comments POC Activated Clotting Time (test code 186 s = POC Activated Clotting Time) [facility] [id number] 14:36:00 Test Item Value Reference Range Interpretation Comments POC Activated Clotting Time (test code 186 s = POC Activated Clotting Time) [facility] LakeLvaqdbpHMNBDVFGUC0647-27-88 14:36:00 Test Item Value Reference Range Interpretation Comments POC Activated Clotting Time (test code 186 s = POC Activated Clotting Time) [facility] LakeEauqtieFOURUDQRJN0511-22-87 14:36:00 Test Item Value Reference Range Interpretation Comments POC Activated Clotting Time (test code 186 s = POC Activated Clotting Time) [facility] LakeUhkfswrSRTCDOUQXK1242-04-84 14:36:00 Test Item Value Reference Range Interpretation Comments POC Activated Clotting Time (test code 186 s = POC Activated Clotting Time) [facility] LakeF[id number] 14:36:00 Test Item Value Reference Range Interpretation Comments POC Activated Clotting Time (test code 186 s = POC Activated Clotting Time) [facility] LakeLlwcnxfRJZRAFTFJO6338-27-79 14:36:00 Test Item Value Reference Range Interpretation Comments POC Activated Clotting Time (test code 186 s = POC Activated Clotting Time) [facility] LakeWltsvuaJENKBLAKOX2011-90-36 14:36:00 Test Item Value Reference Range Interpretation Comments POC Activated Clotting Time (test code 186 s = POC Activated Clotting Time) [facility] LakeHqqauksUTDBUFWMUX2829-24-25 14:36:00 Test Item Value Reference Range Interpretation Comments POC Activated Clotting Time (test code 186 s = POC Activated Clotting Time) [facility]rFXUDTUBSAA1013-93-86 14:36:00 Test Item Value Reference Range Interpretation Comments POC Activated Clotting Time (test code 186 s = POC Activated Clotting Time) [facility] [id number] 10:47:00 Test Item Value Reference Range Interpretation Comments ABO/Rh (test code = ABO/Rh) O POS [facility] [id number] 10:47:00 Test Item Value Reference Range Interpretation Comments Antibody Scrn (test Positive (06/02/19 5:47 code = Antibody Scrn) AM) [facility] [id number] 10:47:00 Test Item Value Reference Range Interpretation Comments AB Int (test code = Non-specific IgG AB Int) Antibody [facility] [id number] 10:47:00 Test Item Value Reference Range Interpretation Comments PAUL Gel Int (test Positive (06/02/19 5:47 code = PAUL Gel Int) AM) [facility] [id number] 10:47:00 Test Item Value Reference Range Interpretation Comments C3 Int (test code = Negative (06/02/19 5:47 C3 Int) AM) [facility] [id number] 10:47:00 Test Item Value Reference Range Interpretation Comments Eluate Int (test code = Eluate Int) See Note [facility]2019-10-09 10:47:00 Test Item Value Reference Range Interpretation Comments Glucose Lvl (test code = Glucose Lvl) 102 70-99 [facility] [id number] 10:47:00 Test Item Value Reference Range Interpretation Comments BUN (test code = BUN) 20 7-22 [facility] [id number] 10:47:00 Test Item Value Reference Range Interpretation Comments Creatinine Lvl (test code = Creatinine 1.00 0.50-1.40 Lvl) [facility] [id number] 10:47:00 Test Item Value Reference Range Interpretation Comments Sodium Lvl (test code = Sodium Lvl) 143 135-145 [facility] [id number] 10:47:00 Test Item Value Reference Range Interpretation Comments Potassium Lvl (test code = Potassium 3.7 3.5-5.1 Lvl) [facility]2019-10-09 10:47:00 Test Item Value Reference Range Interpretation Comments Chloride Lvl (test code = Chloride Lvl) 105 95-109 [facility]2019-10-09 10:47:00 Test Item Value Reference Range Interpretation Comments CO2 (test code = CO2) 31 24-32 [facility]2019-10-09 10:47:00 Test Item Value Reference Range Interpretation Comments Calcium Lvl (test code = Calcium Lvl) 10.0 8.5-10.5 [facility]2019-10-09 10:47:00 Test Item Value Reference Range Interpretation Comments eGFR (test code = eGFR) 52 [facility]2019-10-09 10:47:00 Test Item Value Reference Range Interpretation Comments AGAP (test code = AGAP) 10.7 10.0-20.0 [facility]2019-10-09 10:47:00 Test Item Value Reference Range Interpretation Comments Magnesium Lvl (test code = Magnesium 2.1 1.8-2.4 Lvl) [facility]2019-10-09 10:47:00 Test Item Value Reference Range Interpretation Comments Phosphorus (test code = Phosphorus) 3.4 2.5-4.5 [facility] LakeSifabwlFFJPLRYSUN7964-39-32 10:47:00 Test Item Value Reference Range Interpretation Comments WBC (test code = WBC) 6.2 3.7-10.4 [facility] LakeKuuysucJZOODRGRED3587-52-61 10:47:00 Test Item Value Reference Range Interpretation Comments RBC (test code = RBC) 4.17 4.20-5.40 [facility] LakeJabriikQSELOBZVUV9089-81-31 10:47:00 Test Item Value Reference Range Interpretation Comments Hgb (test code = Hgb) 12.5 12.0-16.0 [facility] LakePusdsjmWTEUZDBIYS1842-81-50 10:47:00 Test Item Value Reference Range Interpretation Comments Hct (test code = Hct) 37.7 36.0-48.0 [facility] LakeQdrslxrZZZRWWYQRR8177-98-23 10:47:00 Test Item Value Reference Range Interpretation Comments MCV (test code = MCV) 90.4 80.0-98.0 [facility] LakeAqckgyjFPSFQPAYNA9021-41-10 10:47:00 Test Item Value Reference Range Interpretation Comments MCH (test code = MCH) 30.0 pg 27.0-31.0 [facility] LakeGlranbwOGYGUZLFKF4594-17-89 10:47:00 Test Item Value Reference Range Interpretation Comments MCHC (test code = MCHC) 33.2 32.0-36.0 [facility] LakeWdstrqzSCNHLKKLJP3507-47-29 10:47:00 Test Item Value Reference Range Interpretation Comments RDW (test code = RDW) 13.5 11.5-14.5 [facility] LakeGhegbswQGXYDHJDNL9873-95-32 10:47:00 Test Item Value Reference Range Interpretation Comments Platelet (test code = Platelet) 288 133-450 [facility] LakeWswtudvGDUYEGPLEF7911-95-07 10:47:00 Test Item Value Reference Range Interpretation Comments MPV (test code = MPV) 7.1 7.4-10.4 [facility] LakeTpculfvPRRJGPRMMY7120-19-08 10:47:00 Test Item Value Reference Range Interpretation Comments PT (test code = PT) 13.0 s 12.0-14.7 [facility] LakeEgzspzdFTGYULOJSJ5294-01-07 10:47:00 Test Item Value Reference Range Interpretation Comments PTT (test code = PTT) 29.2 s 22.9-35.8 [facility] LakeGpxeswvJSRKVKZEUQ8692-72-16 10:47:00 Test Item Value Reference Range Interpretation Comments INR (test code = INR) 1.00 1 0.85-1.17 [facility] LakeKyhehfhJZZWTUZGXR9630-86-96 10:47:00 Test Item Value Reference Range Interpretation Comments Segs (test code = Segs) 60.5 45.0-75.0 [facility] LakeXwlugcxTLHHLZNTXB0999-25-35 10:47:00 Test Item Value Reference Range Interpretation Comments Lymphocytes (test code = Lymphocytes) 26.2 20.0-40.0 [facility] LakeLfjnvtlKUCARLOPVX8410-26-56 10:47:00 Test Item Value Reference Range Interpretation Comments Monocytes (test code = Monocytes) 8.7 2.0-12.0 [facility] LakeUqyolgdQAVGCFHLDQ1165-13-37 10:47:00 Test Item Value Reference Range Interpretation Comments Eosinophils (test code = 4.0 See_Comment [A utomated message] The Eosinophils) system which ge nerated this result tra nsmitted reference range : <=4.0. The reference r robbie was not used to int erpret this result as normal/abnormal . [facility] LakeXcqszqyURVNJZWNHE5909-88-30 10:47:00 Test Item Value Reference Range Interpretation Comments Basophils (test code = 0.6 See_Comment [Aut omated message] The Basophils) system which ge nerated this result tra nsmitted reference range : <=1.0. The reference r robbie was not used to int erpret this result as normal/abnormal . [facility] LakeBlzozkuYSLUYVKQUW9589-18-95 10:47:00 Test Item Value Reference Range Interpretation Comments Neutrophils # (test code = Neutrophils 3.7 1.5-8.1 #) [facility] LakeEzsuinoHUKTQWVURX3485-07-31 10:47:00 Test Item Value Reference Range Interpretation Comments Lymphocytes # (test code = Lymphocytes 1.6 1.0-5.5 #) [facility] LakeYnxhesiQIWIMSBOAC6234-84-78 10:47:00 Test Item Value Reference Range Interpretation Comments Monocytes # (test code 0.5 See_Comment [Aut omated message] The = Monocytes #) system which generated this result tra nsmitted reference range : <=0.8. The reference r robbie was not used to int erpret this result as normal/abnormal . [facility] LakeXzoohkiDMREGJBNBZ2725-17-27 10:47:00 Test Item Value Reference Range Interpretation Comments Eosinophils # (test code 0.3 See_Comment [A utomated message] The = Eosinophils #) system whic h generated this result tra nsmitted reference range : <=0.5. The reference r robbie was not used to int erpret this result as normal/abnormal . [facility] [id number] 10:47:00 Test Item Value Reference Range Interpretation Comments ABO/Rh (test code = ABO/Rh) O POS [facility] KQIDNLZ3607-52-35 10:47:00 Test Item Value Reference Range Interpretation Comments Antibody Scrn (test Positive (06/02/19 5:47 code = Antibody Scrn) AM) [facility] [id number] 10:47:00 Test Item Value Reference Range Interpretation Comments AB Int (test code = Non-specific IgG AB Int) Antibody [facility] [id number] 10:47:00 Test Item Value Reference Range Interpretation Comments PAUL Gel Int (test Positive (06/02/19 5:47 code = PAUL Gel Int) AM) [facility] OFZOPIC4611-03-79 10:47:00 Test Item Value Reference Range Interpretation Comments C3 Int (test code = Negative (06/02/19 5:47 C3 Int) AM) [facility] ZJMTJLL6630-47-77 10:47:00 Test Item Value Reference Range Interpretation Comments Eluate Int (test code = Eluate Int) See Note [facility]2019-10-09 10:47:00 Test Item Value Reference Range Interpretation Comments Glucose Lvl (test code = Glucose Lvl) 102 70-99 [facility]2019-10-09 10:47:00 Test Item Value Reference Range Interpretation Comments BUN (test code = BUN) 20 7-22 [facility]2019-10-09 10:47:00 Test Item Value Reference Range Interpretation Comments Creatinine Lvl (test code = Creatinine 1.00 0.50-1.40 Lvl) [facility]2019-10-09 10:47:00 Test Item Value Reference Range Interpretation Comments Sodium Lvl (test code = Sodium Lvl) 143 135-145 [facility]2019-10-09 10:47:00 Test Item Value Reference Range Interpretation Comments Potassium Lvl (test code = Potassium 3.7 3.5-5.1 Lvl) [facility]2019-10-09 10:47:00 Test Item Value Reference Range Interpretation Comments Chloride Lvl (test code = Chloride Lvl) 105 95-109 [facility]2019-10-09 10:47:00 Test Item Value Reference Range Interpretation Comments CO2 (test code = CO2) 31 24-32 [facility]2019-10-09 10:47:00 Test Item Value Reference Range Interpretation Comments Calcium Lvl (test code = Calcium Lvl) 10.0 8.5-10.5 [facility]2019-10-09 10:47:00 Test Item Value Reference Range Interpretation Comments eGFR (test code = eGFR) 52 [facility]2019-10-09 10:47:00 Test Item Value Reference Range Interpretation Comments AGAP (test code = AGAP) 10.7 10.0-20.0 [facility]2019-10-09 10:47:00 Test Item Value Reference Range Interpretation Comments Magnesium Lvl (test code = Magnesium 2.1 1.8-2.4 Lvl) [facility]2019-10-09 10:47:00 Test Item Value Reference Range Interpretation Comments Phosphorus (test code = Phosphorus) 3.4 2.5-4.5 [facility] LakeNssglgyXNDZFHRBDE3619-38-95 10:47:00 Test Item Value Reference Range Interpretation Comments WBC (test code = WBC) 6.2 3.7-10.4 [facility] LakeIhweffqGIOGHQHXLU2630-43-04 10:47:00 Test Item Value Reference Range Interpretation Comments RBC (test code = RBC) 4.17 4.20-5.40 [facility] LakeMdsllmtNOFQRCQVLQ1298-74-73 10:47:00 Test Item Value Reference Range Interpretation Comments Hgb (test code = Hgb) 12.5 12.0-16.0 [facility] LakePptgsinMATBVEKZJX3191-03-24 10:47:00 Test Item Value Reference Range Interpretation Comments Hct (test code = Hct) 37.7 36.0-48.0 [facility] LakeUsmaftwLPVIJBNFGZ8918-11-91 10:47:00 Test Item Value Reference Range Interpretation Comments MCV (test code = MCV) 90.4 80.0-98.0 [facility] LakeGhzqfqbWOXCPIFCMI6158-69-88 10:47:00 Test Item Value Reference Range Interpretation Comments MCH (test code = MCH) 30.0 pg 27.0-31.0 [facility] LakePbaavbgENABWYCEHM8453-58-85 10:47:00 Test Item Value Reference Range Interpretation Comments MCHC (test code = MCHC) 33.2 32.0-36.0 [facility] LakeTilqzxmTOEQSKCLUK5489-98-37 10:47:00 Test Item Value Reference Range Interpretation Comments RDW (test code = RDW) 13.5 11.5-14.5 [facility] LakeQymffbxILYLIJURGY1562-72-36 10:47:00 Test Item Value Reference Range Interpretation Comments Platelet (test code = Platelet) 288 133-450 [facility] LakeQwuofljSPGSXWAUMZ5536-78-66 10:47:00 Test Item Value Reference Range Interpretation Comments MPV (test code = MPV) 7.1 7.4-10.4 [facility] LakeMkkaoodMUHXUTULPG6803-71-96 10:47:00 Test Item Value Reference Range Interpretation Comments PT (test code = PT) 13.0 s 12.0-14.7 [facility] LakeMdbqhcjNUDLTEYNEN0269-06-56 10:47:00 Test Item Value Reference Range Interpretation Comments PTT (test code = PTT) 29.2 s 22.9-35.8 [facility] LakeGgqavjaUTQFJXOQSV6760-26-46 10:47:00 Test Item Value Reference Range Interpretation Comments INR (test code = INR) 1.00 1 0.85-1.17 [facility] LakeQmkphemEURNWNAUOQ2837-87-64 10:47:00 Test Item Value Reference Range Interpretation Comments Segs (test code = Segs) 60.5 45.0-75.0 [facility] LakeImzkanhTLRJWWHNSG7631-42-17 10:47:00 Test Item Value Reference Range Interpretation Comments Lymphocytes (test code = Lymphocytes) 26.2 20.0-40.0 [facility] LakeAzowdneSUTVODKLEK7176-65-13 10:47:00 Test Item Value Reference Range Interpretation Comments Monocytes (test code = Monocytes) 8.7 2.0-12.0 [facility] LakeRchbrnzUBGEVEFFKL5098-03-75 10:47:00 Test Item Value Reference Range Interpretation Comments Eosinophils (test code = 4.0 See_Comment [A utomated message] The Eosinophils) system which ge nerated this result tra nsmitted reference range : <=4.0. The reference r robbie was not used to int erpret this result as normal/abnormal . [facility] LakeRlklrzvXALZTXUEGD8926-11-07 10:47:00 Test Item Value Reference Range Interpretation Comments Basophils (test code = 0.6 See_Comment [Aut omated message] The Basophils) system which ge nerated this result tra nsmitted reference range : <=1.0. The reference r robbie was not used to int erpret this result as normal/abnormal . [facility] LakeXjeipvlWNFHMNMGVX7138-15-78 10:47:00 Test Item Value Reference Range Interpretation Comments Neutrophils # (test code = Neutrophils 3.7 1.5-8.1 #) [facility] LakePjptoupTRLKIWMIIA7188-50-86 10:47:00 Test Item Value Reference Range Interpretation Comments Lymphocytes # (test code = Lymphocytes 1.6 1.0-5.5 #) [facility] LakeOeibttbCKHCACMPEA0661-16-39 10:47:00 Test Item Value Reference Range Interpretation Comments Monocytes # (test code 0.5 See_Comment [Aut omated message] The = Monocytes #) system which generated this result tra nsmitted reference range : <=0.8. The reference r robbie was not used to int erpret this result as normal/abnormal . [facility] LakeRbohdiqJATACUIRJM5654-70-75 10:47:00 Test Item Value Reference Range Interpretation Comments Eosinophils # (test code 0.3 See_Comment [A utomated message] The = Eosinophils #) system whic h generated this result tra nsmitted reference range : <=0.5. The reference r robbie was not used to int erpret this result as normal/abnormal . [facility] [id number] 10:47:00 Test Item Value Reference Range Interpretation Comments ABO/Rh (test code = ABO/Rh) O POS [facility] [id number] 10:47:00 Test Item Value Reference Range Interpretation Comments Antibody Scrn (test Positive (06/02/19 5:47 code = Antibody Scrn) AM) [facility] [id number] 10:47:00 Test Item Value Reference Range Interpretation Comments AB Int (test code = Non-specific IgG AB Int) Antibody [facility] [id number] 10:47:00 Test Item Value Reference Range Interpretation Comments PAUL Gel Int (test Positive (06/02/19 5:47 code = PAUL Gel Int) AM) [facility] [id number] 10:47:00 Test Item Value Reference Range Interpretation Comments C3 Int (test code = Negative (06/02/19 5:47 C3 Int) AM) [facility] [id number] 10:47:00 Test Item Value Reference Range Interpretation Comments Eluate Int (test code = Eluate Int) [facility] Note [facility] [id number] 10:47:00 Test Item Value Reference Range Interpretation Comments Glucose Lvl (test code = Glucose Lvl) 102 70-99 [facility] [id number] 10:47:00 Test Item Value Reference Range Interpretation Comments BUN (test code = BUN) 20 7-22 [facility] [id number] 10:47:00 Test Item Value Reference Range Interpretation Comments Creatinine Lvl (test code = Creatinine 1.00 0.50-1.40 Lvl) [facility] [id number] 10:47:00 Test Item Value Reference Range Interpretation Comments Sodium Lvl (test code = Sodium Lvl) 143 135-145 [facility]2019-10-09 10:47:00 Test Item Value Reference Range Interpretation Comments Potassium Lvl (test code = Potassium 3.7 3.5-5.1 Lvl) [facility]2019-10-09 10:47:00 Test Item Value Reference Range Interpretation Comments Chloride Lvl (test code = Chloride Lvl) 105 95-109 [facility]2019-10-09 10:47:00 Test Item Value Reference Range Interpretation Comments CO2 (test code = CO2) 31 24-32 [facility]2019-10-09 10:47:00 Test Item Value Reference Range Interpretation Comments Calcium Lvl (test code = Calcium Lvl) 10.0 8.5-10.5 [facility]2019-10-09 10:47:00 Test Item Value Reference Range Interpretation Comments eGFR (test code = eGFR) 52 [facility]2019-10-09 10:47:00 Test Item Value Reference Range Interpretation Comments AGAP (test code = AGAP) 10.7 10.0-20.0 [facility]2019-10-09 10:47:00 Test Item Value Reference Range Interpretation Comments Magnesium Lvl (test code = Magnesium 2.1 1.8-2.4 Lvl) [facility]2019-10-09 10:47:00 Test Item Value Reference Range Interpretation Comments Phosphorus (test code = Phosphorus) 3.4 2.5-4.5 [facility] LakeXmyshevQBHQRXOGFX0065-98-43 10:47:00 Test Item Value Reference Range Interpretation Comments WBC (test code = WBC) 6.2 3.7-10.4 [facility] LakeHplzwteVKZIYWCETA3167-46-40 10:47:00 Test Item Value Reference Range Interpretation Comments RBC (test code = RBC) 4.17 4.20-5.40 [facility] LakeWkhcnycCHZWYUNCPK7828-70-21 10:47:00 Test Item Value Reference Range Interpretation Comments Hgb (test code = Hgb) 12.5 12.0-16.0 [place] [id number] 10:47:00 Test Item Value Reference Range Interpretation Comments Hct (test code = Hct) 37.7 36.0-48.0 [facility] LakeNsaavgzPEKKPFIGXI3844-92-79 10:47:00 Test Item Value Reference Range Interpretation Comments MCV (test code = MCV) 90.4 80.0-98.0 [facility] LakeUystqoeXFELVRJMLD2529-38-91 10:47:00 Test Item Value Reference Range Interpretation Comments MCH (test code = MCH) 30.0 pg 27.0-31.0 [facility] LakeXotnbmeOMIECULMUJ7850-34-16 10:47:00 Test Item Value Reference Range Interpretation Comments MCHC (test code = MCHC) 33.2 32.0-36.0 [facility] LakeNxmpovcEHOVVOCQRU1431-37-98 10:47:00 Test Item Value Reference Range Interpretation Comments RDW (test code = RDW) 13.5 11.5-14.5 [facility] LakeZeilrnqVBKUMUQCPK1782-10-44 10:47:00 Test Item Value Reference Range Interpretation Comments Platelet (test code = Platelet) 288 133-450 [facility] LakeCvzhpntZJGTQHBQYJ2464-70-21 10:47:00 Test Item Value Reference Range Interpretation Comments MPV (test code = MPV) 7.1 7.4-10.4 [facility] LakeKzaugfwBFGFKEDTRY5609-69-00 10:47:00 Test Item Value Reference Range Interpretation Comments PT (test code = PT) 13.0 s 12.0-14.7 [facility] LakeTaouxfePJKDGTLXLL3714-25-40 10:47:00 Test Item Value Reference Range Interpretation Comments PTT (test code = PTT) 29.2 s 22.9-35.8 [facility] LakeYrmixdqTVXHPOMEPL1367-23-85 10:47:00 Test Item Value Reference Range Interpretation Comments INR (test code = INR) 1.00 1 0.85-1.17 [facility] LakeBupcbriZRIQFLALUL4194-81-69 10:47:00 Test Item Value Reference Range Interpretation Comments Segs (test code = Segs) 60.5 45.0-75.0 [facility] LakePupunehTYZDHNIKOA1605-80-96 10:47:00 Test Item Value Reference Range Interpretation Comments Lymphocytes (test code = Lymphocytes) 26.2 20.0-40.0 [facility] LakeMbsdcolIIGKRKAZPJ5407-75-07 10:47:00 Test Item Value Reference Range Interpretation Comments Monocytes (test code = Monocytes) 8.7 2.0-12.0 [facility] LakeJotkmkmTBYSSQIFYM8519-81-87 10:47:00 Test Item Value Reference Range Interpretation Comments Eosinophils (test code = 4.0 See_Comment [A utomated message] The Eosinophils) system which ge nerated this result tra nsmitted reference range : <=4.0. The reference r robbie was not used to int erpret this result as normal/abnormal . [facility] LakeCiyvaeeNGHGWPHKIP3355-96-36 10:47:00 Test Item Value Reference Range Interpretation Comments Basophils (test code = 0.6 See_Comment [Aut omated message] The Basophils) system which ge nerated this result tra nsmitted reference range : <=1.0. The reference r robbie was not used to int erpret this result as normal/abnormal . [facility] LakeKncsfwpDMUUEXLGXC6714-88-61 10:47:00 Test Item Value Reference Range Interpretation Comments Neutrophils # (test code = Neutrophils 3.7 1.5-8.1 #) [facility] LakeXqohhbyARZPLXKSPM2672-20-18 10:47:00 Test Item Value Reference Range Interpretation Comments Lymphocytes # (test code = Lymphocytes 1.6 1.0-5.5 #) [facility] LakeWklihgbMTACHLWYHI1055-96-78 10:47:00 Test Item Value Reference Range Interpretation Comments Monocytes # (test code 0.5 See_Comment [Aut omated message] The = Monocytes #) system which generated this result tra nsmitted reference range : <=0.8. The reference r robbie was not used to int erpret this result as normal/abnormal . [facility] LakeHhbvxvnGOZSTMRZLP3787-08-93 10:47:00 Test Item Value Reference Range Interpretation Comments Eosinophils # (test code 0.3 See_Comment [A utomated message] The = Eosinophils #) system whic h generated this result tra nsmitted reference range : <=0.5. The reference r robbie was not used to int erpret this result as normal/abnormal . [facility] WSWRWET6295-57-39 10:47:00 Test Item Value Reference Range Interpretation Comments ABO/Rh (test code = ABO/Rh) O POS [facility] [id number] 10:47:00 Test Item Value Reference Range Interpretation Comments Antibody Scrn (test Positive (06/02/19 5:47 code = Antibody Scrn) AM) [facility] [id number] 10:47:00 Test Item Value Reference Range Interpretation Comments AB Int (test code = Non-specific IgG AB Int) Antibody [facility] [id number] 10:47:00 Test Item Value Reference Range Interpretation Comments PAUL Gel Int (test Positive (06/02/19 5:47 code = PAUL Gel Int) AM) [facility] [id number] 10:47:00 Test Item Value Reference Range Interpretation Comments C3 Int (test code = Negative (06/02/19 5:47 C3 Int) AM) [facility] [id number] 10:47:00 Test Item Value Reference Range Interpretation Comments Eluate Int (test code = Eluate Int) See Note [facility]2019-10-09 10:47:00 Test Item Value Reference Range Interpretation Comments Glucose Lvl (test code = Glucose Lvl) 102 70-99 [facility]2019-10-09 10:47:00 Test Item Value Reference Range Interpretation Comments BUN (test code = BUN) 20 7-22 [facility]2019-10-09 10:47:00 Test Item Value Reference Range Interpretation Comments Creatinine Lvl (test code = Creatinine 1.00 0.50-1.40 Lvl) [facility]2019-10-09 10:47:00 Test Item Value Reference Range Interpretation Comments Sodium Lvl (test code = Sodium Lvl) 143 135-145 [facility]2019-10-09 10:47:00 Test Item Value Reference Range Interpretation Comments Potassium Lvl (test code = Potassium 3.7 3.5-5.1 Lvl) [facility]2019-10-09 10:47:00 Test Item Value Reference Range Interpretation Comments Chloride Lvl (test code = Chloride Lvl) 105 95-109 [facility] [id number] 10:47:00 Test Item Value Reference Range Interpretation Comments CO2 (test code = CO2) 31 24-32 [facility]2019-10-09 10:47:00 Test Item Value Reference Range Interpretation Comments Calcium Lvl (test code = Calcium Lvl) 10.0 8.5-10.5 [facility] [id number] 10:47:00 Test Item Value Reference Range Interpretation Comments eGFR (test code = eGFR) 52 [facility]2019-10-09 10:47:00 Test Item Value Reference Range Interpretation Comments AGAP (test code = AGAP) 10.7 10.0-20.0 [facility]2019-10-09 10:47:00 Test Item Value Reference Range Interpretation Comments Magnesium Lvl (test code = Magnesium 2.1 1.8-2.4 Lvl) [facility]2019-10-09 10:47:00 Test Item Value Reference Range Interpretation Comments Phosphorus (test code = Phosphorus) 3.4 2.5-4.5 [facility] LakeCmxvaqlBVBTJBSEEU0927-66-18 10:47:00 Test Item Value Reference Range Interpretation Comments WBC (test code = WBC) 6.2 3.7-10.4 [facility] LakeUduqaaeQYGJRIBIKU6901-26-42 10:47:00 Test Item Value Reference Range Interpretation Comments RBC (test code = RBC) 4.17 4.20-5.40 [facility] LakeDlivtahGWBGEZRVOG7893-88-83 10:47:00 Test Item Value Reference Range Interpretation Comments Hgb (test code = Hgb) 12.5 12.0-16.0 [facility] LakeZyjbvqpXNYCMBWUPB7255-02-85 10:47:00 Test Item Value Reference Range Interpretation Comments Hct (test code = Hct) 37.7 36.0-48.0 [facility] LakeXgikleyXMBFVFZEFC5737-50-81 10:47:00 Test Item Value Reference Range Interpretation Comments MCV (test code = MCV) 90.4 80.0-98.0 [facility] LakeZfwbvjwNIXGXNRZXB7886-94-76 10:47:00 Test Item Value Reference Range Interpretation Comments MCH (test code = MCH) 30.0 pg 27.0-31.0 [facility] LakeTilsdtuSUYWPBVGBI8885-35-80 10:47:00 Test Item Value Reference Range Interpretation Comments MCHC (test code = MCHC) 33.2 32.0-36.0 [facility] LakePxuyvkbFUPIHNTUSG2110-90-29 10:47:00 Test Item Value Reference Range Interpretation Comments RDW (test code = RDW) 13.5 11.5-14.5 [facility] LakeZlzvbtkZMPYFVIKBS4383-31-04 10:47:00 Test Item Value Reference Range Interpretation Comments Platelet (test code = Platelet) 288 133-450 [facility] LakeFemhjauATIOZOIHCG1287-64-81 10:47:00 Test Item Value Reference Range Interpretation Comments MPV (test code = MPV) 7.1 7.4-10.4 [facility] LakeCwwzwolYJTKJAEMYO1973-43-00 10:47:00 Test Item Value Reference Range Interpretation Comments PT (test code = PT) 13.0 s 12.0-14.7 [facility] LakeWlsnukyMBZCOTIKSQ7688-79-19 10:47:00 Test Item Value Reference Range Interpretation Comments PTT (test code = PTT) 29.2 s 22.9-35.8 [facility] LakeAcinmmaGCVBNXETSG2466-85-05 10:47:00 Test Item Value Reference Range Interpretation Comments INR (test code = INR) 1.00 1 0.85-1.17 [facility] LakeWcpxoobKJNMAETRXK0416-09-49 10:47:00 Test Item Value Reference Range Interpretation Comments Segs (test code = Segs) 60.5 45.0-75.0 [facility] LakeCgyrieeTHLEIJQPDZ8589-48-88 10:47:00 Test Item Value Reference Range Interpretation Comments Lymphocytes (test code = Lymphocytes) 26.2 20.0-40.0 [facility] LakeGoncfncZWFZJNANIL3684-89-77 10:47:00 Test Item Value Reference Range Interpretation Comments Monocytes (test code = Monocytes) 8.7 2.0-12.0 [facility] LakeInkkzfnXVKWXQCKSU3544-17-35 10:47:00 Test Item Value Reference Range Interpretation Comments Eosinophils (test code = 4.0 See_Comment [A utomated message] The Eosinophils) system which ge nerated this result tra nsmitted reference range : <=4.0. The reference r robbie was not used to int erpret this result as normal/abnormal . [facility] LakeOhshxcxZZGIPWNHZH8284-97-23 10:47:00 Test Item Value Reference Range Interpretation Comments Basophils (test code = 0.6 See_Comment [Aut omated message] The Basophils) system which ge nerated this result tra nsmitted reference range : <=1.0. The reference r robbie was not used to int erpret this result as normal/abnormal . [facility] LakeCvxkldbBLDNKHZIZK0476-51-24 10:47:00 Test Item Value Reference Range Interpretation Comments Neutrophils # (test code = Neutrophils 3.7 1.5-8.1 #) [facility] LakeQohdmpxAUVBYWCOGU6922-50-66 10:47:00 Test Item Value Reference Range Interpretation Comments Lymphocytes # (test code = Lymphocytes 1.6 1.0-5.5 #) [facility] LakeYcbqijdZZEOCIZMNS0916-90-76 10:47:00 Test Item Value Reference Range Interpretation Comments Monocytes # (test code 0.5 See_Comment [Aut omated message] The = Monocytes #) system which generated this result tra nsmitted reference range : <=0.8. The reference r robbie was not used to int erpret this result as normal/abnormal . [facility] LakeJuvuyyxHMRWUWQGVM6779-42-67 10:47:00 Test Item Value Reference Range Interpretation Comments Eosinophils # (test code 0.3 See_Comment [A utomated message] The = Eosinophils #) system whic h generated this result tra nsmitted reference range : <=0.5. The reference r robbie was not used to int erpret this result as normal/abnormal . [facility] [id number] 10:47:00 Test Item Value Reference Range Interpretation Comments ABO/Rh (test code = ABO/Rh) O POS [facility] [id number] 10:47:00 Test Item Value Reference Range Interpretation Comments Antibody Scrn (test Positive (06/02/19 5:47 code = Antibody Scrn) AM) [facility] [id number] 10:47:00 Test Item Value Reference Range Interpretation Comments AB Int (test code = Non-specific IgG AB Int) Antibody [facility] [id number] 10:47:00 Test Item Value Reference Range Interpretation Comments PAUL Gel Int (test Positive (06/02/19 5:47 code = PAUL Gel Int) AM) [facility] [id number] 10:47:00 Test Item Value Reference Range Interpretation Comments C3 Int (test code = Negative (06/02/19 5:47 C3 Int) AM) [facility] [id number] 10:47:00 Test Item Value Reference Range Interpretation Comments Eluate Int (test code = Eluate Int) See Note [facility] [id number] 10:47:00 Test Item Value Reference Range Interpretation Comments Glucose Lvl (test code = Glucose Lvl) 102 70-99 [facility] [id number] 10:47:00 Test Item Value Reference Range Interpretation Comments BUN (test code = BUN) 20 7-22 [facility]2019-10-09 10:47:00 Test Item Value Reference Range Interpretation Comments Creatinine Lvl (test code = Creatinine 1.00 0.50-1.40 Lvl) [facility]2019-10-09 10:47:00 Test Item Value Reference Range Interpretation Comments Sodium Lvl (test code = Sodium Lvl) 143 135-145 [facility]2019-10-09 10:47:00 Test Item Value Reference Range Interpretation Comments Potassium Lvl (test code = Potassium 3.7 3.5-5.1 Lvl) [facility]2019-10-09 10:47:00 Test Item Value Reference Range Interpretation Comments Chloride Lvl (test code = Chloride Lvl) 105 95-109 [facility]2019-10-09 10:47:00 Test Item Value Reference Range Interpretation Comments CO2 (test code = CO2) 31 24-32 [facility]2019-10-09 10:47:00 Test Item Value Reference Range Interpretation Comments Calcium Lvl (test code = Calcium Lvl) 10.0 8.5-10.5 [facility]2019-10-09 10:47:00 Test Item Value Reference Range Interpretation Comments eGFR (test code = eGFR) 52 [facility]2019-10-09 10:47:00 Test Item Value Reference Range Interpretation Comments AGAP (test code = AGAP) 10.7 10.0-20.0 [facility]2019-10-09 10:47:00 Test Item Value Reference Range Interpretation Comments Magnesium Lvl (test code = Magnesium 2.1 1.8-2.4 Lvl) [facility]2019-10-09 10:47:00 Test Item Value Reference Range Interpretation Comments Phosphorus (test code = Phosphorus) 3.4 2.5-4.5 [facility] LakeMbydpdaMMSUFBNPLS3792-56-70 10:47:00 Test Item Value Reference Range Interpretation Comments WBC (test code = WBC) 6.2 3.7-10.4 [facility] LakeCjijpecOWTYGDQDLC4061-50-88 10:47:00 Test Item Value Reference Range Interpretation Comments RBC (test code = RBC) 4.17 4.20-5.40 [facility] LakeWjdlvchMPGGTFEACP3453-84-97 10:47:00 Test Item Value Reference Range Interpretation Comments Hgb (test code = Hgb) 12.5 12.0-16.0 [facility] LakePirdcnbEBJETADPME2818-67-46 10:47:00 Test Item Value Reference Range Interpretation Comments Hct (test code = Hct) 37.7 36.0-48.0 [facility] LakeXfpqrulNLRMXMDSRO0139-70-16 10:47:00 Test Item Value Reference Range Interpretation Comments MCV (test code = MCV) 90.4 80.0-98.0 [facility] LakeUtnhznsYEXGSYUPWI2829-45-29 10:47:00 Test Item Value Reference Range Interpretation Comments MCH (test code = MCH) 30.0 pg 27.0-31.0 [facility] [place]StsziudQSASWIJRAV5303-62-85 10:47:00 Test Item Value Reference Range Interpretation Comments MCHC (test code = MCHC) 33.2 32.0-36.0 [facility] LakeXcjpcvuPVKKJPXOMT9192-62-08 10:47:00 Test Item Value Reference Range Interpretation Comments RDW (test code = RDW) 13.5 11.5-14.5 [facility] LakeSyzgxeiYPFOHCOKZC0110-97-88 10:47:00 Test Item Value Reference Range Interpretation Comments Platelet (test code = Platelet) 288 133-450 [facility] LakeAbsckhtSJCVKHLLKR2899-80-81 10:47:00 Test Item Value Reference Range Interpretation Comments MPV (test code = MPV) 7.1 7.4-10.4 [facility] LakeYamwlooRMBDPHKZHW0438-63-04 10:47:00 Test Item Value Reference Range Interpretation Comments PT (test code = PT) 13.0 s 12.0-14.7 [facility] LakeLtkmfdnIHTSWVLMZY9080-56-93 10:47:00 Test Item Value Reference Range Interpretation Comments PTT (test code = PTT) 29.2 s 22.9-35.8 [facility] LakeQdfvyzoMRPIHJMBSB3917-41-73 10:47:00 Test Item Value Reference Range Interpretation Comments INR (test code = INR) 1.00 1 0.85-1.17 [facility] LakeRirzcgwVNXKEVPOAG2269-78-98 10:47:00 Test Item Value Reference Range Interpretation Comments Segs (test code = Segs) 60.5 45.0-75.0 [facility] LakeXvumsgrNQTSQGALSQ2399-29-03 10:47:00 Test Item Value Reference Range Interpretation Comments Lymphocytes (test code = Lymphocytes) 26.2 20.0-40.0 [facility] LakeRezynsjYCBAACHGIW7435-64-70 10:47:00 Test Item Value Reference Range Interpretation Comments Monocytes (test code = Monocytes) 8.7 2.0-12.0 [facility] LakePdepljqZUUCLBYJCJ8562-94-03 10:47:00 Test Item Value Reference Range Interpretation Comments Eosinophils (test code = 4.0 See_Comment [A utomated message] The Eosinophils) system which ge nerated this result tra nsmitted reference range : <=4.0. The reference r robbie was not used to int erpret this result as normal/abnormal . [facility] LakeVfdmqyoEYKFLXBSIC7509-51-20 10:47:00 Test Item Value Reference Range Interpretation Comments Basophils (test code = 0.6 See_Comment [Aut omated message] The Basophils) system which ge nerated this result tra nsmitted reference range : <=1.0. The reference r robbie was not used to int erpret this result as normal/abnormal . [facility] LakeUvgdlyjNAKLDHMJDP6690-10-97 10:47:00 Test Item Value Reference Range Interpretation Comments Neutrophils # (test code = Neutrophils 3.7 1.5-8.1 #) [facility] LakeLbbpwdqVHHQGPDVND2902-03-09 10:47:00 Test Item Value Reference Range Interpretation Comments Lymphocytes # (test code = Lymphocytes 1.6 1.0-5.5 #) [facility] LakeVmnccwwMVYOLOTZUG0020-35-01 10:47:00 Test Item Value Reference Range Interpretation Comments Monocytes # (test code 0.5 See_Comment [Aut omated message] The = Monocytes #) system which generated this result tra nsmitted reference range : <=0.8. The reference r robbie was not used to int erpret this result as normal/abnormal . [facility] LakeEjafhhtHUDPHQSJDF9507-05-71 10:47:00 Test Item Value Reference Range Interpretation Comments Eosinophils # (test code 0.3 See_Comment [A utomated message] The = Eosinophils #) system whic h generated this result tra nsmitted reference range : <=0.5. The reference r robbie was not used to int erpret this result as normal/abnormal . [facility] [id number] 10:47:00 Test Item Value Reference Range Interpretation Comments ABO/Rh (test code = ABO/Rh) O POS [facility] [id number] 10:47:00 Test Item Value Reference Range Interpretation Comments Antibody Scrn (test Positive (06/02/19 5:47 code = Antibody Scrn) AM) [facility] [id number] 10:47:00 Test Item Value Reference Range Interpretation Comments AB Int (test code = Non-specific IgG AB Int) Antibody [facility] [id number] 10:47:00 Test Item Value Reference Range Interpretation Comments PAUL Gel Int (test Positive (06/02/19 5:47 code = PAUL Gel Int) AM) [facility] [id number] 10:47:00 Test Item Value Reference Range Interpretation Comments C3 Int (test code = Negative (06/02/19 5:47 C3 Int) AM) [facility] [id number] 10:47:00 Test Item Value Reference Range Interpretation Comments Eluate Int (test code = Eluate Int) See Note [facility]2019-10-09 10:47:00 Test Item Value Reference Range Interpretation Comments Glucose Lvl (test code = Glucose Lvl) 102 70-99 [facility] [id number] 10:47:00 Test Item Value Reference Range Interpretation Comments BUN (test code = BUN) 20 7-22 [facility] [id number] 10:47:00 Test Item Value Reference Range Interpretation Comments Creatinine Lvl (test code = Creatinine 1.00 0.50-1.40 Lvl) [facility] [id number] 10:47:00 Test Item Value Reference Range Interpretation Comments Sodium Lvl (test code = Sodium Lvl) 143 135-145 [facility] [id number] 10:47:00 Test Item Value Reference Range Interpretation Comments Potassium Lvl (test code = Potassium 3.7 3.5-5.1 Lvl) [facility] [id number] 10:47:00 Test Item Value Reference Range Interpretation Comments Chloride Lvl (test code = Chloride Lvl) 105 95-109 [facility] [id number] 10:47:00 Test Item Value Reference Range Interpretation Comments CO2 (test code = CO2) 31 24-32 [facility]2019-10-09 10:47:00 Test Item Value Reference Range Interpretation Comments Calcium Lvl (test code = Calcium Lvl) 10.0 8.5-10.5 [facility]2019-10-09 10:47:00 Test Item Value Reference Range Interpretation Comments eGFR (test code = eGFR) 52 [facility]2019-10-09 10:47:00 Test Item Value Reference Range Interpretation Comments AGAP (test code = AGAP) 10.7 10.0-20.0 [facility]2019-10-09 10:47:00 Test Item Value Reference Range Interpretation Comments Magnesium Lvl (test code = Magnesium 2.1 1.8-2.4 Lvl) [facility]2019-10-09 10:47:00 Test Item Value Reference Range Interpretation Comments Phosphorus (test code = Phosphorus) 3.4 2.5-4.5 [facility] LakeQxmzabrTJUAYMSBDB6540-10-48 10:47:00 Test Item Value Reference Range Interpretation Comments WBC (test code = WBC) 6.2 3.7-10.4 [facility] LakePhqobupDVCAKGGAUT7727-14-37 10:47:00 Test Item Value Reference Range Interpretation Comments RBC (test code = RBC) 4.17 4.20-5.40 [facility] LakeLtnxxxfBXSUDPDJHG9931-53-91 10:47:00 Test Item Value Reference Range Interpretation Comments Hgb (test code = Hgb) 12.5 12.0-16.0 [facility] LakeRcqxtkkZOLFHKEKOX6168-67-59 10:47:00 Test Item Value Reference Range Interpretation Comments Hct (test code = Hct) 37.7 36.0-48.0 [facility] LakeQpdjxctUDCNIKQYXP7085-79-73 10:47:00 Test Item Value Reference Range Interpretation Comments MCV (test code = MCV) 90.4 80.0-98.0 [facility] LakeZvapepdNFQETOJPWI0725-70-42 10:47:00 Test Item Value Reference Range Interpretation Comments MCH (test code = MCH) 30.0 pg 27.0-31.0 [facility] LakeNpqutytJAKFZIEZLX7467-90-77 10:47:00 Test Item Value Reference Range Interpretation Comments MCHC (test code = MCHC) 33.2 32.0-36.0 [facility] LakeNkgqdddYUGZSPOSIA5564-90-36 10:47:00 Test Item Value Reference Range Interpretation Comments RDW (test code = RDW) 13.5 11.5-14.5 [facility] LakeNzeimoiKJKXXKBNKO9019-61-12 10:47:00 Test Item Value Reference Range Interpretation Comments Platelet (test code = Platelet) 288 133-450 [facility] LakeSbwzkfpXEDLVZTOZR8421-58-70 10:47:00 Test Item Value Reference Range Interpretation Comments MPV (test code = MPV) 7.1 7.4-10.4 [facility] LakeTujglypLOVFFFOGNI0404-48-74 10:47:00 Test Item Value Reference Range Interpretation Comments PT (test code = PT) 13.0 s 12.0-14.7 [facility] LakeAmmtrhiMQEXKWSIBD3694-32-76 10:47:00 Test Item Value Reference Range Interpretation Comments PTT (test code = PTT) 29.2 s 22.9-35.8 [facility] LakeIbslxsuNHWTIANREC4926-14-20 10:47:00 Test Item Value Reference Range Interpretation Comments INR (test code = INR) 1.00 1 0.85-1.17 [facility] LakeQwdsujiBVGNMNJFKZ0984-34-10 10:47:00 Test Item Value Reference Range Interpretation Comments Segs (test code = Segs) 60.5 45.0-75.0 [facility] LakeVxriwxxDEFOTLWLJM1847-22-56 10:47:00 Test Item Value Reference Range Interpretation Comments Lymphocytes (test code = Lymphocytes) 26.2 20.0-40.0 [facility] LakeLgtpgsgJGBHVEKAFF7639-12-91 10:47:00 Test Item Value Reference Range Interpretation Comments Monocytes (test code = Monocytes) 8.7 2.0-12.0 [facility] LakeBbplmnkCIAELOQOMN6027-66-90 10:47:00 Test Item Value Reference Range Interpretation Comments Eosinophils (test code = 4.0 See_Comment [A utomated message] The Eosinophils) system which ge nerated this result tra nsmitted reference range : <=4.0. The reference r robbie was not used to int erpret this result as normal/abnormal . [facility] LakeCahmacyMLYMGXYHDP6844-96-49 10:47:00 Test Item Value Reference Range Interpretation Comments Basophils (test code = 0.6 See_Comment [Aut omated message] The Basophils) system which ge nerated this result tra nsmitted reference range : <=1.0. The reference r robbie was not used to int erpret this result as normal/abnormal . [facility] LakeYtvdtjiWIYLNGHCLT5644-64-82 10:47:00 Test Item Value Reference Range Interpretation Comments Neutrophils # (test code = Neutrophils 3.7 1.5-8.1 #) [facility] LakeZuhhckrEGPLEYNOPB0953-18-78 10:47:00 Test Item Value Reference Range Interpretation Comments Lymphocytes # (test code = Lymphocytes 1.6 1.0-5.5 #) [facility] LakeLsirdugQNBAAXKTFM8593-84-31 10:47:00 Test Item Value Reference Range Interpretation Comments Monocytes # (test code 0.5 See_Comment [Aut omated message] The = Monocytes #) system which generated this result tra nsmitted reference range : <=0.8. The reference r robbie was not used to int erpret this result as normal/abnormal . [facility] LakeVmergpvZKQLUKCUKE3608-13-22 10:47:00 Test Item Value Reference Range Interpretation Comments Eosinophils # (test code 0.3 See_Comment [A utomated message] The = Eosinophils #) system whic h generated this result tra nsmitted reference range : <=0.5. The reference r robbie was not used to int erpret this result as normal/abnormal . [facility] [id number] 10:47:00 Test Item Value Reference Range Interpretation Comments ABO/Rh (test code = ABO/Rh) O POS [facility] [id number] 10:47:00 Test Item Value Reference Range Interpretation Comments Antibody Scrn (test Positive (06/02/19 5:47 code = Antibody Scrn) AM) [facility] [id number] 10:47:00 Test Item Value Reference Range Interpretation Comments AB Int (test code = Non-specific IgG AB Int) Antibody [facility] [id number] 10:47:00 Test Item Value Reference Range Interpretation Comments PAUL Gel Int (test Positive (06/02/19 5:47 code = PAUL Gel Int) AM) [facility] [id number] 10:47:00 Test Item Value Reference Range Interpretation Comments C3 Int (test code = Negative (06/02/19 5:47 C3 Int) AM) [facility] [id number] 10:47:00 Test Item Value Reference Range Interpretation Comments Eluate Int (test code = Eluate Int) See Note [facility]2019-10-09 10:47:00 Test Item Value Reference Range Interpretation Comments Glucose Lvl (test code = Glucose Lvl) 102 70-99 [facility]2019-10-09 10:47:00 Test Item Value Reference Range Interpretation Comments BUN (test code = BUN) 20 7-22 [facility]2019-10-09 10:47:00 Test Item Value Reference Range Interpretation Comments Creatinine Lvl (test code = Creatinine 1.00 0.50-1.40 Lvl) [facility]2019-10-09 10:47:00 Test Item Value Reference Range Interpretation Comments Sodium Lvl (test code = Sodium Lvl) 143 135-145 [facility]2019-10-09 10:47:00 Test Item Value Reference Range Interpretation Comments Potassium Lvl (test code = Potassium 3.7 3.5-5.1 Lvl) [facility]2019-10-09 10:47:00 Test Item Value Reference Range Interpretation Comments Chloride Lvl (test code = Chloride Lvl) 105 95-109 [facility]2019-10-09 10:47:00 Test Item Value Reference Range Interpretation Comments CO2 (test code = CO2) 31 24-32 [facility]2019-10-09 10:47:00 Test Item Value Reference Range Interpretation Comments Calcium Lvl (test code = Calcium Lvl) 10.0 8.5-10.5 [facility]2019-10-09 10:47:00 Test Item Value Reference Range Interpretation Comments eGFR (test code = eGFR) 52 [facility]2019-10-09 10:47:00 Test Item Value Reference Range Interpretation Comments AGAP (test code = AGAP) 10.7 10.0-20.0 [facility]2019-10-09 10:47:00 Test Item Value Reference Range Interpretation Comments Magnesium Lvl (test code = Magnesium 2.1 1.8-2.4 Lvl) [facility]2019-10-09 10:47:00 Test Item Value Reference Range Interpretation Comments Phosphorus (test code = Phosphorus) 3.4 2.5-4.5 [facility] LakeSvfqnidOIRQWQDSWT0331-47-84 10:47:00 Test Item Value Reference Range Interpretation Comments WBC (test code = WBC) 6.2 3.7-10.4 [facility] LakeNdjlwtnPONTVVSZIS0853-69-24 10:47:00 Test Item Value Reference Range Interpretation Comments RBC (test code = RBC) 4.17 4.20-5.40 [facility] LakeAcbfxltLCNJEMVHAW3098-63-76 10:47:00 Test Item Value Reference Range Interpretation Comments Hgb (test code = Hgb) 12.5 12.0-16.0 [facility] LakeQjzpruqAITLZXXPZI8496-94-61 10:47:00 Test Item Value Reference Range Interpretation Comments Hct (test code = Hct) 37.7 36.0-48.0 [facility] LakeUsetkgjVMIXDWMAPX6893-24-14 10:47:00 Test Item Value Reference Range Interpretation Comments MCV (test code = MCV) 90.4 80.0-98.0 [facility] LakeGztqcuaFJTFCGRTUN6407-59-27 10:47:00 Test Item Value Reference Range Interpretation Comments MCH (test code = MCH) 30.0 pg 27.0-31.0 [facility] LakeGlqdausUNSYKAQFBA0742-49-18 10:47:00 Test Item Value Reference Range Interpretation Comments MCHC (test code = MCHC) 33.2 32.0-36.0 [facility] LakeWpofvmzYRWOEFTSXI4858-79-09 10:47:00 Test Item Value Reference Range Interpretation Comments RDW (test code = RDW) 13.5 11.5-14.5 [facility] LakeKbdkfclRZMZQWENCN7533-04-75 10:47:00 Test Item Value Reference Range Interpretation Comments Platelet (test code = Platelet) 288 133-450 [facility] LakeNevlkxzFXWOQONFPP0459-57-35 10:47:00 Test Item Value Reference Range Interpretation Comments MPV (test code = MPV) 7.1 7.4-10.4 [facility] LakeWveymlxWZAJBPPJJV5695-73-02 10:47:00 Test Item Value Reference Range Interpretation Comments PT (test code = PT) 13.0 s 12.0-14.7 [facility] LakeGxvzhxqWCZOBHVRHL8739-59-43 10:47:00 Test Item Value Reference Range Interpretation Comments PTT (test code = PTT) 29.2 s 22.9-35.8 [facility] LakeXlhulaaNXQDBUPXLH5666-69-03 10:47:00 Test Item Value Reference Range Interpretation Comments INR (test code = INR) 1.00 1 0.85-1.17 [facility] LakeUinxgblJQRXUHUSYF0706-01-12 10:47:00 Test Item Value Reference Range Interpretation Comments Segs (test code = Segs) 60.5 45.0-75.0 [facility] LakeZntgqslFZPQLAMQXG6920-76-90 10:47:00 Test Item Value Reference Range Interpretation Comments Lymphocytes (test code = Lymphocytes) 26.2 20.0-40.0 [facility] LakeUfghmcfZIWCAISITZ0267-35-50 10:47:00 Test Item Value Reference Range Interpretation Comments Monocytes (test code = Monocytes) 8.7 2.0-12.0 [facility] LakeZnebaqtVDGAGDPZXZ1870-64-21 10:47:00 Test Item Value Reference Range Interpretation Comments Eosinophils (test code = 4.0 See_Comment [A utomated message] The Eosinophils) system which ge nerated this result tra nsmitted reference range : <=4.0. The reference r robbie was not used to int erpret this result as normal/abnormal . [facility] LakeEbrtgeaKYMVATOBBV2823-78-31 10:47:00 Test Item Value Reference Range Interpretation Comments Basophils (test code = 0.6 See_Comment [Aut omated message] The Basophils) system which ge nerated this result tra nsmitted reference range : <=1.0. The reference r robbie was not used to int erpret this result as normal/abnormal . [facility] LakeNufrbvlPRRZRGJLLQ7833-24-38 10:47:00 Test Item Value Reference Range Interpretation Comments Neutrophils # (test code = Neutrophils 3.7 1.5-8.1 #) [facility] LakePqhvyuaIXKXPHSRNV3774-84-27 10:47:00 Test Item Value Reference Range Interpretation Comments Lymphocytes # (test code = Lymphocytes 1.6 1.0-5.5 #) [facility] LakeYqspxxjPPPXEGXDQO5865-45-85 10:47:00 Test Item Value Reference Range Interpretation Comments Monocytes # (test code 0.5 See_Comment [Aut omated message] The = Monocytes #) system which generated this result tra nsmitted reference range : <=0.8. The reference r robbie was not used to int erpret this result as normal/abnormal . [facility] LakeOeevokbQQLOCLSPCD7083-35-05 10:47:00 Test Item Value Reference Range Interpretation Comments Eosinophils # (test code 0.3 See_Comment [A utomated message] The = Eosinophils #) system whic h generated this result tra nsmitted reference range : <=0.5. The reference r robbie was not used to int erpret this result as normal/abnormal . [facility] [id number] 10:47:00 Test Item Value Reference Range Interpretation Comments ABO/Rh (test code = ABO/Rh) O POS [facility] [employer] [facility] [id number] 10:47:00 Test Item Value Reference Range Interpretation Comments Antibody Scrn (test Positive (06/02/19 5:47 code = Antibody Scrn) AM) [facility] [employer] [facility] [id number] 10:47:00 Test Item Value Reference Range Interpretation Comments AB Int (test code = Non-specific IgG AB Int) [facility] [id number] 10:47:00 Test Item Value Reference Range Interpretation Comments PAUL Gel Int (test Positive (06/02/19 5:47 code = PAUL Gel Int) AM) [facility] [place] [id number] 10:47:00 Test Item Value Reference Range Interpretation Comments C3 Int (test code = Negative (06/02/19 5:47 C3 Int) AM) [facility] [place] [id number] 10:47:00 Test Item Value Reference Range Interpretation Comments Eluate Int (test code = Eluate Int) See Note [facility] [place] [id number] 10:47:00 Test Item Value Reference Range Interpretation Comments Glucose Lvl (test code = Glucose Lvl) 102 70-99 [facility] [place] [id number] 10:47:00 Test Item Value Reference Range Interpretation Comments BUN (test code = BUN) 20 7-22 [facility] [place] [id number] 10:47:00 Test Item Value Reference Range Interpretation Comments Creatinine Lvl (test code = Creatinine 1.00 0.50-1.40 Lvl) [facility] [place] [id number] 10:47:00 Test Item Value Reference Range Interpretation Comments Sodium Lvl (test code = Sodium Lvl) 143 135-145 [facility] [place] [id number] 10:47:00 Test Item Value Reference Range Interpretation Comments Potassium Lvl (test code = Potassium 3.7 3.5-5.1 Lvl) [facility]2019-10-09 10:47:00 Test Item Value Reference Range Interpretation Comments Chloride Lvl (test code = Chloride Lvl) 105 95-109 [facility]2019-10-09 10:47:00 Test Item Value Reference Range Interpretation Comments CO2 (test code = CO2) 31 24-32 [facility]2019-10-09 10:47:00 Test Item Value Reference Range Interpretation Comments Calcium Lvl (test code = Calcium Lvl) 10.0 8.5-10.5 [facility]2019-10-09 10:47:00 Test Item Value Reference Range Interpretation Comments eGFR (test code = eGFR) 52 [facility]2019-10-09 10:47:00 Test Item Value Reference Range Interpretation Comments AGAP (test code = AGAP) 10.7 10.0-20.0 [facility]2019-10-09 10:47:00 Test Item Value Reference Range Interpretation Comments Magnesium Lvl (test code = Magnesium 2.1 1.8-2.4 Lvl) [facility]2019-10-09 10:47:00 Test Item Value Reference Range Interpretation Comments Phosphorus (test code = Phosphorus) 3.4 2.5-4.5 [facility] LakeFnjbozwWYBKCGQWKE2213-32-01 10:47:00 Test Item Value Reference Range Interpretation Comments WBC (test code = WBC) 6.2 3.7-10.4 [facility] LakeArptlqwYRUTRQRJGU9501-35-60 10:47:00 Test Item Value Reference Range Interpretation Comments RBC (test code = RBC) 4.17 4.20-5.40 [facility] LakeKjcmivrTOBVJSDOPG6617-81-87 10:47:00 Test Item Value Reference Range Interpretation Comments Hgb (test code = Hgb) 12.5 12.0-16.0 [facility] LakeDxeixupGRZBBHSOCF3503-26-66 10:47:00 Test Item Value Reference Range Interpretation Comments Hct (test code = Hct) 37.7 36.0-48.0 [facility] LakeOxssyksLDTJLQRDTO7480-48-83 10:47:00 Test Item Value Reference Range Interpretation Comments MCV (test code = MCV) 90.4 80.0-98.0 [facility] LakeLqcnxtxSHCJJCFVDC5288-34-99 10:47:00 Test Item Value Reference Range Interpretation Comments MCH (test code = MCH) 30.0 pg 27.0-31.0 [facility] LakeJavrubkPVEDAKKFXP8357-29-21 10:47:00 Test Item Value Reference Range Interpretation Comments MCHC (test code = MCHC) 33.2 32.0-36.0 [facility] LakeUlaqoukDJZRGKHUYM5486-84-76 10:47:00 Test Item Value Reference Range Interpretation Comments RDW (test code = RDW) 13.5 11.5-14.5 [facility] LakeMdrotmhFXKSYNVNGI1684-13-75 10:47:00 Test Item Value Reference Range Interpretation Comments Platelet (test code = Platelet) 288 133-450 [facility] LakeRmjsobpTCIYYGZBIL2062-12-90 10:47:00 Test Item Value Reference Range Interpretation Comments MPV (test code = MPV) 7.1 7.4-10.4 [facility] LakeHbynyhbHNNOCMYLCJ5339-45-44 10:47:00 Test Item Value Reference Range Interpretation Comments PT (test code = PT) 13.0 s 12.0-14.7 [facility] LakeSadhoxwAXZWJWGPEY3387-62-33 10:47:00 Test Item Value Reference Range Interpretation Comments PTT (test code = PTT) 29.2 s 22.9-35.8 [facility] LakeQecbgtsNKZJTJWPYE3561-79-74 10:47:00 Test Item Value Reference Range Interpretation Comments INR (test code = INR) 1.00 1 0.85-1.17 [facility] LakeEilemswUEXHUPOVXL6304-17-52 10:47:00 Test Item Value Reference Range Interpretation Comments Segs (test code = Segs) 60.5 45.0-75.0 [facility] LakeJdwcpxgNWPXKFTBBK4938-22-22 10:47:00 Test Item Value Reference Range Interpretation Comments Lymphocytes (test code = Lymphocytes) 26.2 20.0-40.0 [facility] LakeImohzftQSPWVIVEDZ7374-41-06 10:47:00 Test Item Value Reference Range Interpretation Comments Monocytes (test code = Monocytes) 8.7 2.0-12.0 [facility] LakeKrvvcldUQBEQLBSYN8948-63-37 10:47:00 Test Item Value Reference Range Interpretation Comments Eosinophils (test code = 4.0 See_Comment [A utomated message] The Eosinophils) system which ge nerated this result tra nsmitted reference range : <=4.0. The reference r robbie was not used to int erpret this result as normal/abnormal . [facility] LakeNoyghruXIQELVIMMK7331-61-35 10:47:00 Test Item Value Reference Range Interpretation Comments Basophils (test code = 0.6 See_Comment [Aut omated message] The Basophils) system which ge nerated this result tra nsmitted reference range : <=1.0. The reference r robbie was not used to int erpret this result as normal/abnormal . [facility] LakeOeyqocaSVGKPQUDJT6978-46-43 10:47:00 Test Item Value Reference Range Interpretation Comments Neutrophils # (test code = Neutrophils 3.7 1.5-8.1 #) [facility] LakeJigiuhnJPMEFSTQAA6097-12-23 10:47:00 Test Item Value Reference Range Interpretation Comments Lymphocytes # (test code = Lymphocytes 1.6 1.0-5.5 #) [facility] LakeZczxztiWIXOOSSVIM4470-18-81 10:47:00 Test Item Value Reference Range Interpretation Comments Monocytes # (test code 0.5 See_Comment [Aut omated message] The = Monocytes #) system which generated this result tra nsmitted reference range : <=0.8. The reference r robbie was not used to int erpret this result as normal/abnormal . [facility] LakeAewllrwCNSJNVNRXS0970-25-40 10:47:00 Test Item Value Reference Range Interpretation Comments Eosinophils # (test code 0.3 See_Comment [A utomated message] The = Eosinophils #) system whic h generated this result tra nsmitted reference range : <=0.5. The reference r robbie was not used to int erpret this result as normal/abnormal . [facility] [id number] 10:47:00 Test Item Value Reference Range Interpretation Comments ABO/Rh (test code = ABO/Rh) O POS [facility] [id number] 10:47:00 Test Item Value Reference Range Interpretation Comments Antibody Scrn (test Positive (06/02/19 5:47 code = Antibody Scrn) AM) [facility] [id number] 10:47:00 Test Item Value Reference Range Interpretation Comments AB Int (test code = Non-specific IgG AB Int) Antibody [facility] [id number] 10:47:00 Test Item Value Reference Range Interpretation Comments PAUL Gel Int (test Positive (06/02/19 5:47 code = PAUL Gel Int) AM) [facility] [id number] 10:47:00 Test Item Value Reference Range Interpretation Comments C3 Int (test code = Negative (06/02/19 5:47 C3 Int) AM) [facility] [id number] 10:47:00 Test Item Value Reference Range Interpretation Comments Eluate Int (test code = Eluate Int) See Note [facility]2019-10-09 10:47:00 Test Item Value Reference Range Interpretation Comments Glucose Lvl (test code = Glucose Lvl) 102 70-99 [facility]2019-10-09 10:47:00 Test Item Value Reference Range Interpretation Comments BUN (test code = BUN) 20 7-22 [facility]2019-10-09 10:47:00 Test Item Value Reference Range Interpretation Comments Creatinine Lvl (test code = Creatinine 1.00 0.50-1.40 Lvl) [facility]2019-10-09 10:47:00 Test Item Value Reference Range Interpretation Comments Sodium Lvl (test code = Sodium Lvl) 143 135-145 [facility]2019-10-09 10:47:00 Test Item Value Reference Range Interpretation Comments Potassium Lvl (test code = Potassium 3.7 3.5-5.1 Lvl) [facility]2019-10-09 10:47:00 Test Item Value Reference Range Interpretation Comments Chloride Lvl (test code = Chloride Lvl) 105 95-109 [facility]2019-10-09 10:47:00 Test Item Value Reference Range Interpretation Comments CO2 (test code = CO2) 31 24-32 [facility]2019-10-09 10:47:00 Test Item Value Reference Range Interpretation Comments Calcium Lvl (test code = Calcium Lvl) 10.0 8.5-10.5 [facility] [id number] 10:47:00 Test Item Value Reference Range Interpretation Comments eGFR (test code = eGFR) 52 [facility]2019-10-09 10:47:00 Test Item Value Reference Range Interpretation Comments AGAP (test code = AGAP) 10.7 10.0-20.0 [facility] [id number] 10:47:00 Test Item Value Reference Range Interpretation Comments Magnesium Lvl (test code = Magnesium 2.1 1.8-2.4 Lvl) [facility]2019-10-09 10:47:00 Test Item Value Reference Range Interpretation Comments Phosphorus (test code = Phosphorus) 3.4 2.5-4.5 [facility] LakeXboiggeOBXELTKBCF5062-82-83 10:47:00 Test Item Value Reference Range Interpretation Comments WBC (test code = WBC) 6.2 3.7-10.4 [facility] LakeHjozhrxTCFCUALZRS9930-95-85 10:47:00 Test Item Value Reference Range Interpretation Comments RBC (test code = RBC) 4.17 4.20-5.40 [facility] LakeNjuutbmHTVGCEGLGM9251-33-95 10:47:00 Test Item Value Reference Range Interpretation Comments Hgb (test code = Hgb) 12.5 12.0-16.0 [facility] LakeFfmjmanYENKSPOEBP2778-70-57 10:47:00 Test Item Value Reference Range Interpretation Comments Hct (test code = Hct) 37.7 36.0-48.0 [facility] LakeKankthqRJJLGONWJH7729-22-24 10:47:00 Test Item Value Reference Range Interpretation Comments MCV (test code = MCV) 90.4 80.0-98.0 [facility] LakeVbuescwPGLDOARKFI2915-64-43 10:47:00 Test Item Value Reference Range Interpretation Comments MCH (test code = MCH) 30.0 pg 27.0-31.0 [facility] LakeGdpftskNIZHOGITPV5264-95-21 10:47:00 Test Item Value Reference Range Interpretation Comments MCHC (test code = MCHC) 33.2 32.0-36.0 [facility] LakeYjbuobrUQPCKWPAPA4017-36-99 10:47:00 Test Item Value Reference Range Interpretation Comments RDW (test code = RDW) 13.5 11.5-14.5 [facility] LakeYgyezvfPYELFJCQUF2127-57-28 10:47:00 Test Item Value Reference Range Interpretation Comments Platelet (test code = Platelet) 288 133-450 [facility] LakeGftqzjkFEVPBRXHAZ9852-35-94 10:47:00 Test Item Value Reference Range Interpretation Comments MPV (test code = MPV) 7.1 7.4-10.4 [facility] LakeRxyueicOZHTUFIETE8915-51-20 10:47:00 Test Item Value Reference Range Interpretation Comments PT (test code = PT) 13.0 s 12.0-14.7 [facility] LakeOxhmrwkINIMSQFTXB7556-40-57 10:47:00 Test Item Value Reference Range Interpretation Comments PTT (test code = PTT) 29.2 s 22.9-35.8 [facility] LakeAhlrjyvZUNDMDLHJB9975-38-85 10:47:00 Test Item Value Reference Range Interpretation Comments INR (test code = INR) 1.00 1 0.85-1.17 [facility] LakeTfinuhwEISNDUAOYR9613-64-58 10:47:00 Test Item Value Reference Range Interpretation Comments Segs (test code = Segs) 60.5 45.0-75.0 [facility] LakeVirtbqmHTUKHWKXMA7407-55-12 10:47:00 Test Item Value Reference Range Interpretation Comments Lymphocytes (test code = Lymphocytes) 26.2 20.0-40.0 [facility] LakeHsytiwmAQWAWJZLKB7981-55-06 10:47:00 Test Item Value Reference Range Interpretation Comments Monocytes (test code = Monocytes) 8.7 2.0-12.0 [facility] LakeQenhukfVXGDMXUFXD2314-95-41 10:47:00 Test Item Value Reference Range Interpretation Comments Eosinophils (test code = 4.0 See_Comment [A utomated message] The Eosinophils) system which ge nerated this result tra nsmitted reference range : <=4.0. The reference r robbie was not used to int erpret this result as normal/abnormal . [facility] LakeDhssouoBOVUVWXNUV4644-59-52 10:47:00 Test Item Value Reference Range Interpretation Comments Basophils (test code = 0.6 See_Comment [Aut omated message] The Basophils) system which ge nerated this result tra nsmitted reference range : <=1.0. The reference r robbie was not used to int erpret this result as normal/abnormal . [facility] LakeMhibcoxVZMAVHVJFP5076-91-14 10:47:00 Test Item Value Reference Range Interpretation Comments Neutrophils # (test code = Neutrophils 3.7 1.5-8.1 #) [facility] LakeAhjslfiHIYQYZOIEF8280-28-15 10:47:00 Test Item Value Reference Range Interpretation Comments Lymphocytes # (test code = Lymphocytes 1.6 1.0-5.5 #) [facility] LakeFjazwfcRGSKYRWPIZ6255-84-17 10:47:00 Test Item Value Reference Range Interpretation Comments Monocytes # (test code 0.5 See_Comment [Aut omated message] The = Monocytes #) system which generated this result tra nsmitted reference range : <=0.8. The reference r robbie was not used to int erpret this result as normal/abnormal . [facility] LakeQrwcoxaHULIBZSFVU8608-36-58 10:47:00 Test Item Value Reference Range Interpretation Comments Eosinophils # (test code 0.3 See_Comment [A utomated message] The = Eosinophils #) system whic h generated this result tra nsmitted reference range : <=0.5. The reference r robbie was not used to int erpret this result as normal/abnormal . [facility] [id number] 10:47:00 Test Item Value Reference Range Interpretation Comments ABO/Rh (test code = ABO/Rh) [facility] [id number] 10:47:00 Test Item Value Reference Range Interpretation Comments Antibody Scrn (test Positive (06/02/19 5:47 code = Antibody Scrn) AM) [facility] [id number] 10:47:00 Test Item Value Reference Range Interpretation Comments AB Int (test code = Non-specific IgG AB Int) Antibody [facility] [id number] 10:47:00 Test Item Value Reference Range Interpretation Comments PAUL Gel Int (test Positive (06/02/19 5:47 code = PAUL Gel Int) AM) [facility] [id number] 10:47:00 Test Item Value Reference Range Interpretation Comments C3 Int (test code = Negative (06/02/19 5:47 C3 Int) AM) [facility] [id number] 10:47:00 Test Item Value Reference Range Interpretation Comments Eluate Int (test code = Eluate Int) See Note [facility] [id number] 10:47:00 Test Item Value Reference Range Interpretation Comments Glucose Lvl (test code = Glucose Lvl) 102 70-99 [facility] [id number] 10:47:00 Test Item Value Reference Range Interpretation Comments BUN (test code = BUN) 20 7-22 [facility] [id number] 10:47:00 Test Item Value Reference Range Interpretation Comments Creatinine Lvl (test code = Creatinine 1.00 0.50-1.40 Lvl) [facility]2019-10-09 10:47:00 Test Item Value Reference Range Interpretation Comments Sodium Lvl (test code = Sodium Lvl) 143 135-145 [facility]2019-10-09 10:47:00 Test Item Value Reference Range Interpretation Comments Potassium Lvl (test code = Potassium 3.7 3.5-5.1 Lvl) [facility]2019-10-09 10:47:00 Test Item Value Reference Range Interpretation Comments Chloride Lvl (test code = Chloride Lvl) 105 95-109 [facility]2019-10-09 10:47:00 Test Item Value Reference Range Interpretation Comments CO2 (test code = CO2) 31 24-32 [facility]2019-10-09 10:47:00 Test Item Value Reference Range Interpretation Comments Calcium Lvl (test code = Calcium Lvl) 10.0 8.5-10.5 [facility]2019-10-09 10:47:00 Test Item Value Reference Range Interpretation Comments eGFR (test code = eGFR) 52 [facility]2019-10-09 10:47:00 Test Item Value Reference Range Interpretation Comments AGAP (test code = AGAP) 10.7 10.0-20.0 [facility]2019-10-09 10:47:00 Test Item Value Reference Range Interpretation Comments Magnesium Lvl (test code = Magnesium 2.1 1.8-2.4 Lvl) [facility]2019-10-09 10:47:00 Test Item Value Reference Range Interpretation Comments Phosphorus (test code = Phosphorus) 3.4 2.5-4.5 [facility] LakeHgtmrqoCJHFTVKXYC0223-54-67 10:47:00 Test Item Value Reference Range Interpretation Comments WBC (test code = WBC) 6.2 3.7-10.4 [facility] LakeMkobvsiIJPEUWTYYR7188-65-15 10:47:00 Test Item Value Reference Range Interpretation Comments RBC (test code = RBC) 4.17 4.20-5.40 [facility] LakeYzlhgivGUZEXPAJUM0039-62-39 10:47:00 Test Item Value Reference Range Interpretation Comments Hgb (test code = Hgb) 12.5 12.0-16.0 [facility] LakeHzimzwnDPOSTWPICT5436-26-41 10:47:00 Test Item Value Reference Range Interpretation Comments Hct (test code = Hct) 37.7 36.0-48.0 [facility] LakeXrltzyxFLPEFPGIBK5679-76-09 10:47:00 Test Item Value Reference Range Interpretation Comments MCV (test code = MCV) 90.4 80.0-98.0 [facility] LakeQgaeuvgDMTGRMWCET4681-12-58 10:47:00 Test Item Value Reference Range Interpretation Comments MCH (test code = MCH) 30.0 pg 27.0-31.0 [facility] LakeVdptacmOXLBSGYPEC6422-64-14 10:47:00 Test Item Value Reference Range Interpretation Comments MCHC (test code = MCHC) 33.2 32.0-36.0 [facility] LakeByxxpalHQCUHTGUOR8617-28-99 10:47:00 Test Item Value Reference Range Interpretation Comments RDW (test code = RDW) 13.5 11.5-14.5 [facility] LakeIunsjbuQQUGWBFZDD5665-81-43 10:47:00 Test Item Value Reference Range Interpretation Comments Platelet (test code = Platelet) 288 133-450 [facility] LakeOpcxmntBBECBMJNRX7494-05-31 10:47:00 Test Item Value Reference Range Interpretation Comments MPV (test code = MPV) 7.1 7.4-10.4 [facility] LakeZcxuxjjNBFYOMINUN0546-45-37 10:47:00 Test Item Value Reference Range Interpretation Comments PT (test code = PT) 13.0 s 12.0-14.7 [facility] LakeXbgvshzJYLNDCULOB4798-56-64 10:47:00 Test Item Value Reference Range Interpretation Comments PTT (test code = PTT) 29.2 s 22.9-35.8 [facility] LakeEnmqqomHKVDYNBRZY8687-34-66 10:47:00 Test Item Value Reference Range Interpretation Comments INR (test code = INR) 1.00 1 0.85-1.17 [facility] LakeJspcsihANNRFJSQIZ2515-73-52 10:47:00 Test Item Value Reference Range Interpretation Comments Segs (test code = Segs) 60.5 45.0-75.0 [facility] LakeQeknpwpRCQPIVULWR1201-98-84 10:47:00 Test Item Value Reference Range Interpretation Comments Lymphocytes (test code = Lymphocytes) 26.2 20.0-40.0 [facility] LakeZmqsivvUOYLMWSDYB7524-89-55 10:47:00 Test Item Value Reference Range Interpretation Comments Monocytes (test code = Monocytes) 8.7 2.0-12.0 [facility] LakeQxunuxuJKJXDOSPOO5317-41-41 10:47:00 Test Item Value Reference Range Interpretation Comments Eosinophils (test code = 4.0 See_Comment [A utomated message] The Eosinophils) system which ge nerated this result tra nsmitted reference range : <=4.0. The reference r robbie was not used to int erpret this result as normal/abnormal . [facility] LakeRtxtvtuUPXUBQHLHZ6789-79-11 10:47:00 Test Item Value Reference Range Interpretation Comments Basophils (test code = 0.6 See_Comment [Aut omated message] The Basophils) system which ge nerated this result tra nsmitted reference range : <=1.0. The reference r robbie was not used to int erpret this result as normal/abnormal . [facility] LakeJbgwgecERGYPDVSVE6037-69-60 10:47:00 Test Item Value Reference Range Interpretation Comments Neutrophils # (test code = Neutrophils 3.7 1.5-8.1 #) [facility] LakeKprmfkfTLWSSQTMGZ3610-22-30 10:47:00 Test Item Value Reference Range Interpretation Comments Lymphocytes # (test code = Lymphocytes 1.6 1.0-5.5 #) [facility] LakeElgpmelIZLUEGMITN7249-30-28 10:47:00 Test Item Value Reference Range Interpretation Comments Monocytes # (test code 0.5 See_Comment [Aut omated message] The = Monocytes #) system which generated this result tra nsmitted reference range : <=0.8. The reference r robbie was not used to int erpret this result as normal/abnormal . [facility] LakeJpymnohWDSYCSDYVW7702-56-43 10:47:00 Test Item Value Reference Range Interpretation Comments Eosinophils # (test code 0.3 See_Comment [A utomated message] The = Eosinophils #) system whic h generated this result tra nsmitted reference range : <=0.5. The reference r robbie was not used to int erpret this result as normal/abnormal . [facility] [id number] 10:47:00 Test Item Value Reference Range Interpretation Comments ABO/Rh (test code = ABO/Rh) O POS [facility] [id number] 10:47:00 Test Item Value Reference Range Interpretation Comments Antibody Scrn (test Positive (06/02/19 5:47 code = Antibody Scrn) AM) [facility] [id number] 10:47:00 Test Item Value Reference Range Interpretation Comments AB Int (test code = Non-specific IgG AB Int) Antibody [facility] [id number] 10:47:00 Test Item Value Reference Range Interpretation Comments PAUL Gel Int (test Positive (06/02/19 5:47 code = PAUL Gel Int) AM) [facility] [id number] 10:47:00 Test Item Value Reference Range Interpretation Comments C3 Int (test code = Negative (06/02/19 5:47 C3 Int) AM) [facility] [id number] 10:47:00 Test Item Value Reference Range Interpretation Comments Eluate Int (test code = Eluate Int) See Note [facility]2019-10-09 10:47:00 Test Item Value Reference Range Interpretation Comments Glucose Lvl (test code = Glucose Lvl) 102 70-99 [facility] [id number] 10:47:00 Test Item Value Reference Range Interpretation Comments BUN (test code = BUN) 20 7-22 [facility] [id number] 10:47:00 Test Item Value Reference Range Interpretation Comments Creatinine Lvl (test code = Creatinine 1.00 0.50-1.40 Lvl) [facility] [id number] 10:47:00 Test Item Value Reference Range Interpretation Comments Sodium Lvl (test code = Sodium Lvl) 143 135-145 [facility] [id number] 10:47:00 Test Item Value Reference Range Interpretation Comments Potassium Lvl (test code = Potassium 3.7 3.5-5.1 Lvl) [facility] [id number] 10:47:00 Test Item Value Reference Range Interpretation Comments Chloride Lvl (test code = Chloride Lvl) 105 95-109 [facility] [id number] 10:47:00 Test Item Value Reference Range Interpretation Comments CO2 (test code = CO2) 31 24-32 [facility] [id number] 10:47:00 Test Item Value Reference Range Interpretation Comments Calcium Lvl (test code = Calcium Lvl) 10.0 8.5-10.5 [facility] [id number] 10:47:00 Test Item Value Reference Range Interpretation Comments eGFR (test code = eGFR) 52 [facility]2019-10-09 10:47:00 Test Item Value Reference Range Interpretation Comments AGAP (test code = AGAP) 10.7 10.0-20.0 [facility]2019-10-09 10:47:00 Test Item Value Reference Range Interpretation Comments Magnesium Lvl (test code = Magnesium 2.1 1.8-2.4 Lvl) [facility]2019-10-09 10:47:00 Test Item Value Reference Range Interpretation Comments Phosphorus (test code = Phosphorus) 3.4 2.5-4.5 [facility] LakeImlmqydKXBLRXSVRR4475-87-09 10:47:00 Test Item Value Reference Range Interpretation Comments WBC (test code = WBC) 6.2 3.7-10.4 [facility] LakeBwcajrnWUELFOXSBP7869-40-88 10:47:00 Test Item Value Reference Range Interpretation Comments RBC (test code = RBC) 4.17 4.20-5.40 [facility] LakeSkzjoojSFHTSWBKZX3318-92-30 10:47:00 Test Item Value Reference Range Interpretation Comments Hgb (test code = Hgb) 12.5 12.0-16.0 [facility] LakeUznsskhXXTVFIPPUG2246-07-06 10:47:00 Test Item Value Reference Range Interpretation Comments Hct (test code = Hct) 37.7 36.0-48.0 [facility] LakeNfskqjdVHKLIMLOGR2704-43-90 10:47:00 Test Item Value Reference Range Interpretation Comments MCV (test code = MCV) 90.4 80.0-98.0 [facility] LakeCsqzzjkGWTDEVQSXP4547-92-91 10:47:00 Test Item Value Reference Range Interpretation Comments MCH (test code = MCH) 30.0 pg 27.0-31.0 [facility] LakeRqsjqmzJUXDQLVZKP3377-40-38 10:47:00 Test Item Value Reference Range Interpretation Comments MCHC (test code = MCHC) 33.2 32.0-36.0 [facility] LakeVqqrlrvQSUDLFYUIR3800-44-26 10:47:00 Test Item Value Reference Range Interpretation Comments RDW (test code = RDW) 13.5 11.5-14.5 [facility] LakeOvxfctkOSLEZWAQRU6225-18-55 10:47:00 Test Item Value Reference Range Interpretation Comments Platelet (test code = Platelet) 288 047-450 [facility] LakeHshxeliLKUXQIYFLQ4912-76-46 10:47:00 Test Item Value Reference Range Interpretation Comments MPV (test code = MPV) 7.1 7.4-10.4 [facility] LakeExunmjlGHIMUORGRM6173-67-28 10:47:00 Test Item Value Reference Range Interpretation Comments PT (test code = PT) 13.0 s 12.0-14.7 [facility] LakeMtvctlcYYQUYBYDVK0555-07-59 10:47:00 Test Item Value Reference Range Interpretation Comments PTT (test code = PTT) 29.2 s 22.9-35.8 [facility] LakeLzkhwnbPZDWPJTIAS9087-32-20 10:47:00 Test Item Value Reference Range Interpretation Comments INR (test code = INR) 1.00 1 0.85-1.17 [facility] LakeUvcjtsbFBSWBQZFMJ2253-34-32 10:47:00 Test Item Value Reference Range Interpretation Comments Segs (test code = Segs) 60.5 45.0-75.0 [facility] LakeJmfoncaVCWQIDJSGO1688-05-19 10:47:00 Test Item Value Reference Range Interpretation Comments Lymphocytes (test code = Lymphocytes) 26.2 20.0-40.0 [facility] LakeMiyvicpOYANCEKCVB5548-83-14 10:47:00 Test Item Value Reference Range Interpretation Comments Monocytes (test code = Monocytes) 8.7 2.0-12.0 [facility] LakeGwqwyvqVAMKHZLXQN5148-77-18 10:47:00 Test Item Value Reference Range Interpretation Comments Eosinophils (test code = 4.0 See_Comment [A utomated message] The Eosinophils) system which ge nerated this result tra nsmitted reference range : <=4.0. The reference r robbie was not used to int erpret this result as normal/abnormal . [facility] LakeAurvtiqRADYONCQXE7214-99-91 10:47:00 Test Item Value Reference Range Interpretation Comments Basophils (test code = 0.6 See_Comment [Aut omated message] The Basophils) system which ge nerated this result tra nsmitted reference range : <=1.0. The reference r robbie was not used to int erpret this result as normal/abnormal . [facility] LakeQoquueeVQKFNPCLGB9046-43-06 10:47:00 Test Item Value Reference Range Interpretation Comments Neutrophils # (test code = Neutrophils 3.7 1.5-8.1 #) [facility] LakeTrnrvhuIOGYWNVUWA1030-35-52 10:47:00 Test Item Value Reference Range Interpretation Comments Lymphocytes # (test code = Lymphocytes 1.6 1.0-5.5 #) [facility] LakeTnafymnXFLJOGYHXW3932-26-25 10:47:00 Test Item Value Reference Range Interpretation Comments Monocytes # (test code 0.5 See_Comment [Aut omated message] The = Monocytes #) system which generated this result tra nsmitted reference range : <=0.8. The reference r robbie was not used to int erpret this result as normal/abnormal . [facility] LakeLcjaimtXLVLFSHLGR9268-07-31 10:47:00 Test Item Value Reference Range Interpretation Comments Eosinophils # (test code 0.3 See_Comment [A utomated message] The = Eosinophils #) system whic h generated this result tra nsmitted reference range : <=0.5. The reference r robbie was not used to int erpret this result as normal/abnormal . [facility] [id number] 10:47:00 Test Item Value Reference Range Interpretation Comments ABO/Rh (test code = ABO/Rh) O POS [facility] [id number] 10:47:00 Test Item Value Reference Range Interpretation Comments Antibody Scrn (test Positive (06/02/19 5:47 code = Antibody Scrn) AM) [facility] [id number] 10:47:00 Test Item Value Reference Range Interpretation Comments AB Int (test code = Non-specific IgG AB Int) Antibody [facility] [id number] 10:47:00 Test Item Value Reference Range Interpretation Comments PAUL Gel Int (test Positive (06/02/19 5:47 code = PAUL Gel Int) AM) [facility] [id number] 10:47:00 Test Item Value Reference Range Interpretation Comments C3 Int (test code = Negative (06/02/19 5:47 C3 Int) AM) [facility] [id number] 10:47:00 Test Item Value Reference Range Interpretation Comments Eluate Int (test code = Eluate Int) See Note [facility] [id number] 10:47:00 Test Item Value Reference Range Interpretation Comments Glucose Lvl (test code = Glucose Lvl) 102 70-99 [facility]2019-10-09 10:47:00 Test Item Value Reference Range Interpretation Comments BUN (test code = BUN) 20 7-22 [facility]2019-10-09 10:47:00 Test Item Value Reference Range Interpretation Comments Creatinine Lvl (test code = Creatinine 1.00 0.50-1.40 Lvl) [facility]2019-10-09 10:47:00 Test Item Value Reference Range Interpretation Comments Sodium Lvl (test code = Sodium Lvl) 143 135-145 [facility]2019-10-09 10:47:00 Test Item Value Reference Range Interpretation Comments Potassium Lvl (test code = Potassium 3.7 3.5-5.1 Lvl) [facility]2019-10-09 10:47:00 Test Item Value Reference Range Interpretation Comments Chloride Lvl (test code = Chloride Lvl) 105 95-109 [facility]2019-10-09 10:47:00 Test Item Value Reference Range Interpretation Comments CO2 (test code = CO2) 31 24-32 [facility]2019-10-09 10:47:00 Test Item Value Reference Range Interpretation Comments Calcium Lvl (test code = Calcium Lvl) 10.0 8.5-10.5 [facility]2019-10-09 10:47:00 Test Item Value Reference Range Interpretation Comments eGFR (test code = eGFR) 52 [facility]2019-10-09 10:47:00 Test Item Value Reference Range Interpretation Comments AGAP (test code = AGAP) 10.7 10.0-20.0 [facility]2019-10-09 10:47:00 Test Item Value Reference Range Interpretation Comments Magnesium Lvl (test code = Magnesium 2.1 1.8-2.4 Lvl) [facility]2019-10-09 10:47:00 Test Item Value Reference Range Interpretation Comments Phosphorus (test code = Phosphorus) 3.4 2.5-4.5 [facility] LakeRpzoafkAGGQQENAWM0390-09-16 10:47:00 Test Item Value Reference Range Interpretation Comments WBC (test code = WBC) 6.2 3.7-10.4 [facility] LakeQnifrpaGEPVGPAFPD0230-69-03 10:47:00 Test Item Value Reference Range Interpretation Comments RBC (test code = RBC) 4.17 4.20-5.40 [facility] LakeNvimisiTTUNACSCJI3452-70-28 10:47:00 Test Item Value Reference Range Interpretation Comments Hgb (test code = Hgb) 12.5 12.0-16.0 [facility] LakeLxwmzoeQVQEQMNYMG1148-62-70 10:47:00 Test Item Value Reference Range Interpretation Comments Hct (test code = Hct) 37.7 36.0-48.0 [facility] LakeHrpeyiyNHNMTVTUDS4598-40-17 10:47:00 Test Item Value Reference Range Interpretation Comments MCV (test code = MCV) 90.4 80.0-98.0 [facility] LakeBlrwjudXKVOTOIFVL0719-07-64 10:47:00 Test Item Value Reference Range Interpretation Comments MCH (test code = MCH) 30.0 pg 27.0-31.0 [facility] LakeArvcwvaFLLNVRNMAT6412-55-24 10:47:00 Test Item Value Reference Range Interpretation Comments MCHC (test code = MCHC) 33.2 32.0-36.0 [facility] LakeHktsgayJQFSCJQDRO2624-41-20 10:47:00 Test Item Value Reference Range Interpretation Comments RDW (test code = RDW) 13.5 11.5-14.5 [facility] LakeTrqrxouQPCTBCZIVT7429-43-02 10:47:00 Test Item Value Reference Range Interpretation Comments Platelet (test code = Platelet) 288 133-450 [facility] LakeAzjevevUAISNDZRJN6194-23-56 10:47:00 Test Item Value Reference Range Interpretation Comments MPV (test code = MPV) 7.1 7.4-10.4 [facility] LakeLxvplpvGZDRYQDMOI2378-27-17 10:47:00 Test Item Value Reference Range Interpretation Comments PT (test code = PT) 13.0 s 12.0-14.7 [facility] LakeWpdcakbWLIGGQOBMM7435-69-99 10:47:00 Test Item Value Reference Range Interpretation Comments PTT (test code = PTT) 29.2 s 22.9-35.8 [facility] LakeRakinhwSDDHZFBOVK7844-05-65 10:47:00 Test Item Value Reference Range Interpretation Comments INR (test code = INR) 1.00 1 0.85-1.17 [facility] LakeGmcxuvdYVGTZDRVCZ4797-60-45 10:47:00 Test Item Value Reference Range Interpretation Comments Segs (test code = Segs) 60.5 45.0-75.0 [facility] LakeGcqbtxtSIANKVEEMR8985-94-06 10:47:00 Test Item Value Reference Range Interpretation Comments Lymphocytes (test code = Lymphocytes) 26.2 20.0-40.0 [facility] LakeDuqfafvWOWHYTSJLI4756-85-41 10:47:00 Test Item Value Reference Range Interpretation Comments Monocytes (test code = Monocytes) 8.7 2.0-12.0 [facility] LakeKurmpcdTMYPXOENOY2186-00-00 10:47:00 Test Item Value Reference Range Interpretation Comments Eosinophils (test code = 4.0 See_Comment [A utomated message] The Eosinophils) system which ge nerated this result tra nsmitted reference range : <=4.0. The reference r robbie was not used to int erpret this result as normal/abnormal . [facility] LakeLwsfzpaEJYMPTHFKN6527-59-12 10:47:00 Test Item Value Reference Range Interpretation Comments Basophils (test code = 0.6 See_Comment [Aut omated message] The Basophils) system which ge nerated this result tra nsmitted reference range : <=1.0. The reference r robbie was not used to int erpret this result as normal/abnormal . [facility] LakeBqismzaVIFFQDJIUH5454-39-84 10:47:00 Test Item Value Reference Range Interpretation Comments Neutrophils # (test code = Neutrophils 3.7 1.5-8.1 #) [facility] LakeZcstvzzUIZLUCTISW5350-93-88 10:47:00 Test Item Value Reference Range Interpretation Comments Lymphocytes # (test code = Lymphocytes 1.6 1.0-5.5 #) [facility] LakeJltkxvlAIHQXGTVGD8634-18-06 10:47:00 Test Item Value Reference Range Interpretation Comments Monocytes # (test code 0.5 See_Comment [Aut omated message] The = Monocytes #) system which generated this result tra nsmitted reference range : <=0.8. The reference r robbie was not used to int erpret this result as normal/abnormal . [facility] LakeHywpfotKKKJLKURRY8086-90-17 10:47:00 Test Item Value Reference Range Interpretation Comments Eosinophils # (test code 0.3 See_Comment [A utomated message] The = Eosinophils #) system whic h generated this result tra nsmitted reference range : <=0.5. The reference r robbie was not used to int erpret this result as normal/abnormal . [facility]2017-03-07 11:37:00 Test Item Value Reference Range Interpretation Comments eGFR (test code = eGFR) 48 [facility]2017-03-07 11:37:00 Test Item Value Reference Range Interpretation Comments Creatinine Lvl (test code = Creatinine 1.08 0.50-1.40 Lvl) [facility] LakeItetoopJVUGXTPOTQ1848-95-30 11:37:00 Test Item Value Reference Range Interpretation Comments Hgb (test code = Hgb) 12.6 12.0-16.0 [facility]2017-03-07 11:37:00 Test Item Value Reference Range Interpretation Comments eGFR (test code = eGFR) 48 [facility]2017-03-07 11:37:00 Test Item Value Reference Range Interpretation Comments Creatinine Lvl (test code = Creatinine 1.08 0.50-1.40 Lvl) [facility] LakeOdnvsteBVUNKSNXUI7825-28-66 11:37:00 Test Item Value Reference Range Interpretation Comments Hgb (test code = Hgb) 12.6 12.0-16.0 [facility]2017-03-07 11:37:00 Test Item Value Reference Range Interpretation Comments eGFR (test code = eGFR) 48 [facility]2017-03-07 11:37:00 Test Item Value Reference Range Interpretation Comments Creatinine Lvl (test code = Creatinine 1.08 0.50-1.40 Lvl) [facility] LakeAtkbrokXWUOTLSWRJ3585-78-96 11:37:00 Test Item Value Reference Range Interpretation Comments Hgb (test code = Hgb) 12.6 12.0-16.0 [facility]2017-03-07 11:37:00 Test Item Value Reference Range Interpretation Comments eGFR (test code = eGFR) 48 [facility]2017-03-07 11:37:00 Test Item Value Reference Range Interpretation Comments Creatinine Lvl (test code = Creatinine 1.08 0.50-1.40 Lvl) [facility] LakeLblhnebAGGUEJCMYP5064-28-65 11:37:00 Test Item Value Reference Range Interpretation Comments Hgb (test code = Hgb) 12.6 12.0-16.0 [facility]2017-03-07 11:37:00 Test Item Value Reference Range Interpretation Comments eGFR (test code = eGFR) 48 [facility]2017-03-07 11:37:00 Test Item Value Reference Range Interpretation Comments Creatinine Lvl (test code = Creatinine 1.08 0.50-1.40 Lvl) [facility] LakeMouoqcxNYBDUYQQQM6866-99-94 11:37:00 Test Item Value Reference Range Interpretation Comments Hgb (test code = Hgb) 12.6 12.0-16.0 [facility]2017-03-07 11:37:00 Test Item Value Reference Range Interpretation Comments eGFR (test code = eGFR) 48 [facility]2017-03-07 11:37:00 Test Item Value Reference Range Interpretation Comments Creatinine Lvl (test code = Creatinine 1.08 0.50-1.40 Lvl) [facility] LakeUratqpoYBEQESKNGY4405-09-48 11:37:00 Test Item Value Reference Range Interpretation Comments Hgb (test code = Hgb) 12.6 12.0-16.0 [facility]2017-03-07 11:37:00 Test Item Value Reference Range Interpretation Comments eGFR (test code = eGFR) 48 [facility]2017-03-07 11:37:00 Test Item Value Reference Range Interpretation Comments Creatinine Lvl (test code = Creatinine 1.08 0.50-1.40 Lvl) [facility] LakeGftqkvhQFKDSQZVYH9144-31-97 11:37:00 Test Item Value Reference Range Interpretation Comments Hgb (test code = Hgb) 12.6 12.0-16.0 [facility]2017-03-07 11:37:00 Test Item Value Reference Range Interpretation Comments eGFR (test code = eGFR) 48 [facility]2017-03-07 11:37:00 Test Item Value Reference Range Interpretation Comments Creatinine Lvl (test code = Creatinine 1.08 0.50-1.40 Lvl) [facility] LakeCpblavoVALDTUGEOT1499-02-25 11:37:00 Test Item Value Reference Range Interpretation Comments Hgb (test code = Hgb) 12.6 12.0-16.0 [facility]2017-03-07 11:37:00 Test Item Value Reference Range Interpretation Comments eGFR (test code = eGFR) 48 [facility]2017-03-07 11:37:00 Test Item Value Reference Range Interpretation Comments Creatinine Lvl (test code = Creatinine 1.08 0.50-1.40 Lvl) [facility] LakeJkfepokIZEMZTAFLU8142-54-17 11:37:00 Test Item Value Reference Range Interpretation Comments Hgb (test code = Hgb) 12.6 12.0-16.0 [facility]2017-03-07 11:37:00 Test Item Value Reference Range Interpretation Comments eGFR (test code = eGFR) 48 [facility]2017-03-07 11:37:00 Test Item Value Reference Range Interpretation Comments Creatinine Lvl (test code = Creatinine 1.08 0.50-1.40 Lvl) [facility] LakeYeenmlySFHUEOLHNB3405-46-09 11:37:00 Test Item Value Reference Range Interpretation Comments Hgb (test code = Hgb) 12.6 12.0-16.0 [facility]2017-03-07 11:37:00 Test Item Value Reference Range Interpretation Comments eGFR (test code = eGFR) 48 [facility]2017-03-07 11:37:00 Test Item Value Reference Range Interpretation Comments Creatinine Lvl (test code = Creatinine 1.08 0.50-1.40 Lvl) [facility] LakeLjknsqpOZSUSIOPTI3382-52-86 11:37:00 Test Item Value Reference Range Interpretation Comments Hgb (test code = Hgb) 12.6 12.0-16.0 [facility]2017-03-07 11:37:00 Test Item Value Reference Range Interpretation Comments eGFR (test code = eGFR) 48 [facility]2017-03-07 11:37:00 Test Item Value Reference Range Interpretation Comments Creatinine Lvl (test code = Creatinine 1.08 0.50-1.40 Lvl) [facility] LakeNukmulfUYKLYKDKUZ9471-31-74 11:37:00 Test Item Value Reference Range Interpretation Comments Hgb (test code = Hgb) 12.6 12.0-16.0 [facility] LakeKosudpnPRARFWFXYS8508-14-19 00:09:00 Test Item Value Reference Range Interpretation Comments POC Activated Clotting Time (test code 198 s = POC Activated Clotting Time) [facility] LakeOcwunhfZCGOACXVHH4276-77-67 00:09:00 Test Item Value Reference Range Interpretation Comments POC Activated Clotting Time (test code 198 s = POC Activated Clotting Time) [facility] LakeTdaijiwXKAMXPFOIM4542-64-85 00:09:00 Test Item Value Reference Range Interpretation Comments POC Activated Clotting Time (test code 198 s = POC Activated Clotting Time) [facility] LakeAkiwblpJHMVCXWATP6471-14-29 00:09:00 Test Item Value Reference Range Interpretation Comments POC Activated Clotting Time (test code 198 s = POC Activated Clotting Time) [facility] LakeApvwatkZETDUEEMNY4360-59-40 00:09:00 Test Item Value Reference Range Interpretation Comments POC Activated Clotting Time (test code 198 s = POC Activated Clotting Time) [facility] LakeFrkiwovDFEQFZBRJD5417-00-89 00:09:00 Test Item Value Reference Range Interpretation Comments POC Activated Clotting Time (test code 198 s = POC Activated Clotting Time) [facility] LakeSibnqlbETNKTSHXUR8998-56-05 00:09:00 Test Item Value Reference Range Interpretation Comments POC Activated Clotting Time (test code 198 s = POC Activated Clotting Time) [facility] LakeEswtfbkSDICLAKCDG1991-13-24 00:09:00 Test Item Value Reference Range Interpretation Comments POC Activated Clotting Time (test code 198 s = POC Activated Clotting Time) [facility] LakeUkfikcoFOMMHBAFWP0361-42-61 00:09:00 Test Item Value Reference Range Interpretation Comments POC Activated Clotting Time (test code 198 s = POC Activated Clotting Time) [facility] LakeEhtouroOUZHOGPUCB6728-56-91 00:09:00 Test Item Value Reference Range Interpretation Comments POC Activated Clotting Time (test code 198 s = POC Activated Clotting Time) [facility] LakeOusfxnzWDXWGRIUZT3284-18-88 00:09:00 Test Item Value Reference Range Interpretation Comments POC Activated Clotting Time (test code 198 s = POC Activated Clotting Time) [facility] LakeRkixnysOOOKWNGLMJ5087-51-31 00:09:00 Test Item Value Reference Range Interpretation Comments POC Activated Clotting Time (test code 198 s = POC Activated Clotting Time) [facility] LakeQqtydmaADVMVVTSDT6179-33-80 22:02:00 Test Item Value Reference Range Interpretation Comments POC Activated Clotting Time (test code 268 s = POC Activated Clotting Time) [facility] LakeLjfplmfKHAPKGHHZY6176-74-40 22:02:00 Test Item Value Reference Range Interpretation Comments POC Activated Clotting Time (test code 268 s = POC Activated Clotting Time) [facility] LakeFysexolTOUJEHAGSV3616-37-93 22:02:00 Test Item Value Reference Range Interpretation Comments POC Activated Clotting Time (test code 268 s = POC Activated Clotting Time) [facility] LakeMzqrojiQYSYCZGZYS7190-39-81 22:02:00 Test Item Value Reference Range Interpretation Comments POC Activated Clotting Time (test code 268 s = POC Activated Clotting Time) [facility] LakePwpsesmZPZGDQAPMJ6975-18-06 22:02:00 Test Item Value Reference Range Interpretation Comments POC Activated Clotting Time (test code 268 s = POC Activated Clotting Time) [facility] LakeDevkmdkWNQTJOBZCX7811-79-10 22:02:00 Test Item Value Reference Range Interpretation Comments POC Activated Clotting Time (test code 268 s = POC Activated Clotting Time) [facility] LakeXivrzjuWYOGTSQNWI0615-97-78 22:02:00 Test Item Value Reference Range Interpretation Comments POC Activated Clotting Time (test code 268 s = POC Activated Clotting Time) [facility] LakeGrziqayIGJEDQQSKJ3440-65-22 22:02:00 Test Item Value Reference Range Interpretation Comments POC Activated Clotting Time (test code 268 s = POC Activated Clotting Time) [facility] LakeCjmxfrpHVBCKDGTNH6411-16-72 22:02:00 Test Item Value Reference Range Interpretation Comments POC Activated Clotting Time (test code 268 s = POC Activated Clotting Time) [facility] LakeYrcurtdHYQZNYIUWN2605-99-33 22:02:00 Test Item Value Reference Range Interpretation Comments POC Activated Clotting Time (test code 268 s = POC Activated Clotting Time) [facility] LakeHydqfvmMSWWWWYXVJ5864-34-67 22:02:00 Test Item Value Reference Range Interpretation Comments POC Activated Clotting Time (test code 268 s = POC Activated Clotting Time) [facility] LakeRmhmsaxGGJJUPQXVI4587-97-49 22:02:00 Test Item Value Reference Range Interpretation Comments POC Activated Clotting Time (test code 268 s = POC Activated Clotting Time) [facility] [id number] 18:25:00 Test Item Value Reference Range Interpretation Comments ABO/Rh (test code = ABO/Rh) O POS [facility] DFQKCYV7358-74-53 18:25:00 Test Item Value Reference Range Interpretation Comments Antibody Scrn (test Negative (10/28/16 12:25 code = Antibody Scrn) PM) [facility] [id number] 18:25:00 Test Item Value Reference Range Interpretation Comments Magnesium Lvl (test code = Magnesium 1.9 1.8-2.4 Lvl) [facility]TwzjgnbMLKVPOMWGSSE4000-70-14 18:25:00 Test Item Value Reference Range Interpretation Comments Potassium Lvl (test code = Potassium 4.4 3.5-5.1 Lvl) [facility] HospitalPizmibuNALXZWSVKZQH2166-38-98 18:25:00 Test Item Value Reference Range Interpretation Comments Calcium Lvl (test code = Calcium Lvl) 9.4 8.5-10.5 [facility] HospitalEbddisgYMHOKRULDAOW8990-41-37 18:25:00 Test Item Value Reference Range Interpretation Comments CO2 (test code = CO2) 31 24-32 [facility] HospitalPgbbkpgVRPLCAUYPXGQ6796-50-54 18:25:00 Test Item Value Reference Range Interpretation Comments Chloride Lvl (test code = Chloride Lvl) 103 95-109 [facility] HospitalTbbjnjrTGGCRFGPEFSQ0123-98-25 18:25:00 Test Item Value Reference Range Interpretation Comments eGFR (test code = eGFR) 55 [facility] HospitalIjclucyRJMXCAJLROOX7922-97-89 18:25:00 Test Item Value Reference Range Interpretation Comments Sodium Lvl (test code = Sodium Lvl) 141 135-145 [facility] HospitalXnpuybkWAQAHACQLWTR0289-80-55 18:25:00 Test Item Value Reference Range Interpretation Comments Creatinine Lvl (test code = Creatinine 0.97 0.50-1.40 Lvl) [facility] HospitalNeetbpsIXZBDWNIKXKJ0342-77-50 18:25:00 Test Item Value Reference Range Interpretation Comments BUN (test code = BUN) 24 7-22 [facility] HospitalAhwpdneTWLEDVYGRFAH7613-22-50 18:25:00 Test Item Value Reference Range Interpretation Comments Glucose Lvl (test code = Glucose Lvl) 108 70-99 [facility] HospitalAzqiwjwJMKLDUUJVMCV3076-80-44 18:25:00 Test Item Value Reference Range Interpretation Comments AGAP (test code = AGAP) 11.4 10.0-20.0 [facility] LakeFkzkgahYSVJOCEDHN8743-27-91 18:25:00 Test Item Value Reference Range Interpretation Comments INR (test code = INR) 1.10 0.85-1.17 [facility] LakeAlfepnfECCUHOTAKB9546-54-74 18:25:00 Test Item Value Reference Range Interpretation Comments PT (test code = PT) 14.4 s 12.0-14.7 [facility] LakeHmmvgpvWNARKKAKWM7356-08-46 18:25:00 Test Item Value Reference Range Interpretation Comments PTT (test code = PTT) 30.3 s 22.9-35.8 [facility] LakeLtydzcqYZWPVCEAMB7607-52-43 18:25:00 Test Item Value Reference Range Interpretation Comments Hgb (test code = Hgb) 13.1 12.0-16.0 [facility] LakeUqkkrgbGGUZQHIDYB6018-36-32 18:25:00 Test Item Value Reference Range Interpretation Comments RBC (test code = RBC) 4.51 4.20-5.40 [facility] LakeEsygzaaDTQAUADUFC2949-21-31 18:25:00 Test Item Value Reference Range Interpretation Comments WBC (test code = WBC) 5.4 3.7-10.4 [facility] LakeEahlpgaASWWGEREVM5926-28-58 18:25:00 Test Item Value Reference Range Interpretation Comments MPV (test code = MPV) 7.2 7.4-10.4 [facility] LakeAggzbrhFRAOZLGSID7262-41-98 18:25:00 Test Item Value Reference Range Interpretation Comments MCHC (test code = MCHC) 33.0 32.0-36.0 [facility] LakeTayhtjfJHMFCOYXJZ4617-24-05 18:25:00 Test Item Value Reference Range Interpretation Comments RDW (test code = RDW) 14.0 11.5-14.5 [facility] LakeOkawksjYAEGKDPIRZ3798-74-17 18:25:00 Test Item Value Reference Range Interpretation Comments Platelet (test code = Platelet) 278 133-450 [facility] LakeAhhslmwIPGJXHWVLA5630-83-34 18:25:00 Test Item Value Reference Range Interpretation Comments MCH (test code = MCH) 29.0 pg 27.0-31.0 [facility] LakeQtxgcloUKRAAXMZKI4868-06-20 18:25:00 Test Item Value Reference Range Interpretation Comments MCV (test code = MCV) 87.9 80.0-98.0 [facility] LakeRkiekozVBSKHIRBAZ6565-98-95 18:25:00 Test Item Value Reference Range Interpretation Comments Hct (test code = Hct) 39.7 36.0-48.0 [facility] LakeTyftvndXQPDIADGOR7396-49-71 18:25:00 Test Item Value Reference Range Interpretation Comments Eosinophils (test code = 2.2 See_Comment [A utomated message] The Eosinophils) system which ge nerated this result tra nsmitted reference range : <=4.0. The reference r robbie was not used to int erpret this result as normal/abnormal . [facility] LakeCmhfxsyZHXXCRMWND8856-51-46 18:25:00 Test Item Value Reference Range Interpretation Comments Segs-Bands # (test code = Segs-Bands #) 2.8 1.5-8.1 [facility] LakeMmguqunDABAIGFGJZ0915-76-56 18:25:00 Test Item Value Reference Range Interpretation Comments Basophils (test code = 0.9 See_Comment [Aut omated message] The Basophils) system which ge nerated this result tra nsmitted reference range : <=1.0. The reference r robbie was not used to int erpret this result as normal/abnormal . [facility] LakeDozddmwFDCBOLLBDX2093-78-08 18:25:00 Test Item Value Reference Range Interpretation Comments Lymphocytes # (test code = Lymphocytes 2.1 1.0-5.5 #) [facility] LakeOvowpkrBNIRNPRLWE1362-08-68 18:25:00 Test Item Value Reference Range Interpretation Comments Segs (test code = Segs) 52.3 45.0-75.0 [facility] LakeFabmykeRZEDECYPFE6198-93-44 18:25:00 Test Item Value Reference Range Interpretation Comments Lymphocytes (test code = Lymphocytes) 38.0 20.0-40.0 [facility] LakeNmnrgdqARKOQPLECT1888-32-27 18:25:00 Test Item Value Reference Range Interpretation Comments Monocytes (test code = Monocytes) 6.6 2.0-12.0 [facility] LakeShrgrvaGXZGWMOHLA3659-96-81 18:25:00 Test Item Value Reference Range Interpretation Comments Basophils # (test code 0.1 See_Comment [Aut omated message] The = Basophils #) system which generated this result tra nsmitted reference range : <=0.2. The reference r robbie was not used to int erpret this result as normal/abnormal . [facility] LakeAdqptduUDLQMDUSXA0112-25-07 18:25:00 Test Item Value Reference Range Interpretation Comments Eosinophils # (test code 0.1 See_Comment [A utomated message] The = Eosinophils #) system whic h generated this result tra nsmitted reference range : <=0.5. The reference r robbie was not used to int erpret this result as normal/abnormal . [facility] LakeQmlhsvdKTTYGLWCAI7334-35-37 18:25:00 Test Item Value Reference Range Interpretation Comments Monocytes # (test code 0.4 See_Comment [Aut omated message] The = Monocytes #) system which generated this result tra nsmitted reference range : <=0.8. The reference r robbie was not used to int erpret this result as normal/abnormal . [facility] [id number] 18:25:00 Test Item Value Reference Range Interpretation Comments ABO/Rh (test code = ABO/Rh) [facility] [id number] 18:25:00 Test Item Value Reference Range Interpretation Comments Antibody Scrn (test Negative (10/28/16 12:25 code = Antibody Scrn) PM) [facility] [id number] 18:25:00 Test Item Value Reference Range Interpretation Comments Magnesium Lvl (test code = Magnesium 1.9 1.8-2.4 Lvl) [facility] HospitalHguiiswHTPRIARLAPZT0358-20-32 18:25:00 Test Item Value Reference Range Interpretation Comments Potassium Lvl (test code = Potassium 4.4 3.5-5.1 Lvl) [facility] HospitalFscfovfHIJEEHSLTQHX8768-70-85 18:25:00 Test Item Value Reference Range Interpretation Comments Calcium Lvl (test code = Calcium Lvl) 9.4 8.5-10.5 [facility] HospitalZgyemazBEGZIKFCVISX4053-58-49 18:25:00 Test Item Value Reference Range Interpretation Comments CO2 (test code = CO2) 31 24-32 [facility] HospitalXyholboKQGLQVJBXNEA8317-89-62 18:25:00 Test Item Value Reference Range Interpretation Comments Chloride Lvl (test code = Chloride Lvl) 103 95-109 [facility] HospitalGbcohiwKOQDVXJWXDRX9611-84-48 18:25:00 Test Item Value Reference Range Interpretation Comments eGFR (test code = eGFR) 55 [facility] HospitalMeggsceHQEJAXFXYDGG1978-08-90 18:25:00 Test Item Value Reference Range Interpretation Comments Sodium Lvl (test code = Sodium Lvl) 141 135-145 [facility] HospitalUendsbjFHRTZWRDLFRL3733-69-15 18:25:00 Test Item Value Reference Range Interpretation Comments Creatinine Lvl (test code = Creatinine 0.97 0.50-1.40 Lvl) [facility] HospitalVylbwktRFITOUNUTSXA5464-66-53 18:25:00 Test Item Value Reference Range Interpretation Comments BUN (test code = BUN) 24 7-22 [facility] HospitalKispurjUBPIYGUVQYXT4424-55-50 18:25:00 Test Item Value Reference Range Interpretation Comments Glucose Lvl (test code = Glucose Lvl) 108 70-99 [facility] HospitalKfvqwkxPXRSKFUEYJOV8208-74-54 18:25:00 Test Item Value Reference Range Interpretation Comments AGAP (test code = AGAP) 11.4 10.0-20.0 [facility] LakeTmnhquqJDOWHBUPLE6748-68-33 18:25:00 Test Item Value Reference Range Interpretation Comments INR (test code = INR) 1.10 0.85-1.17 [facility] LakeHszmdwrWEAHYHGTIX7674-10-43 18:25:00 Test Item Value Reference Range Interpretation Comments PT (test code = PT) 14.4 s 12.0-14.7 [facility] LakeYylkjvlTLUMZUNAXY7408-91-73 18:25:00 Test Item Value Reference Range Interpretation Comments PTT (test code = PTT) 30.3 s 22.9-35.8 [facility] LakeWjzxiqeEVBWEHNLFT8232-06-63 18:25:00 Test Item Value Reference Range Interpretation Comments Hgb (test code = Hgb) 13.1 12.0-16.0 [facility] LakeBzalzobTLVPEVRYNT9205-33-04 18:25:00 Test Item Value Reference Range Interpretation Comments RBC (test code = RBC) 4.51 4.20-5.40 [facility] LakeVqoesseDVXOCOUQRG7316-55-13 18:25:00 Test Item Value Reference Range Interpretation Comments WBC (test code = WBC) 5.4 3.7-10.4 [facility] LakeJaiciejGILMTKHAJO0117-52-15 18:25:00 Test Item Value Reference Range Interpretation Comments MPV (test code = MPV) 7.2 7.4-10.4 [facility] LakeQxoxlfcYGAOHEWFTU5538-84-83 18:25:00 Test Item Value Reference Range Interpretation Comments MCHC (test code = MCHC) 33.0 32.0-36.0 [facility] LakeDjnpphoAXPBDGRDEB8021-84-55 18:25:00 Test Item Value Reference Range Interpretation Comments RDW (test code = RDW) 14.0 11.5-14.5 [facility] LakeRdlhaycDFXSQROBMI8142-63-03 18:25:00 Test Item Value Reference Range Interpretation Comments Platelet (test code = Platelet) 278 133-450 [facility] LakeOugomcpNOTYVHZXFV3509-36-72 18:25:00 Test Item Value Reference Range Interpretation Comments MCH (test code = MCH) 29.0 pg 27.0-31.0 [facility] LakeHkvdoimPJMDBYCYHM7419-52-55 18:25:00 Test Item Value Reference Range Interpretation Comments MCV (test code = MCV) 87.9 80.0-98.0 [facility] LakeAtgtrmuMBJAJSUNHV5838-55-61 18:25:00 Test Item Value Reference Range Interpretation Comments Hct (test code = Hct) 39.7 36.0-48.0 [facility] LakeQrxruzcSVLVBYQJTN3758-42-63 18:25:00 Test Item Value Reference Range Interpretation Comments Eosinophils (test code = 2.2 See_Comment [A utomated message] The Eosinophils) system which ge nerated this result tra nsmitted reference range : <=4.0. The reference r robbie was not used to int erpret this result as normal/abnormal . [facility] LakeXkirwwgRELPUQHFNP4383-86-29 18:25:00 Test Item Value Reference Range Interpretation Comments Segs-Bands # (test code = Segs-Bands #) 2.8 1.5-8.1 [facility] LakeDhszdevUIAUTOGPBT6626-67-95 18:25:00 Test Item Value Reference Range Interpretation Comments Basophils (test code = 0.9 See_Comment [Aut omated message] The Basophils) system which ge nerated this result tra nsmitted reference range : <=1.0. The reference r robbie was not used to int erpret this result as normal/abnormal . [facility] LakeAokbihwCPNHODXVMO7383-12-28 18:25:00 Test Item Value Reference Range Interpretation Comments Lymphocytes # (test code = Lymphocytes 2.1 1.0-5.5 #) [facility] LakeApqpzpiKBGPEVNFWT4804-63-92 18:25:00 Test Item Value Reference Range Interpretation Comments Segs (test code = Segs) 52.3 45.0-75.0 [facility] LakeIlcqlqxAWHOMRYIZN2147-71-22 18:25:00 Test Item Value Reference Range Interpretation Comments Lymphocytes (test code = Lymphocytes) 38.0 20.0-40.0 [facility] LakeUizqzleTRLFYPQVJG3318-84-88 18:25:00 Test Item Value Reference Range Interpretation Comments Monocytes (test code = Monocytes) 6.6 2.0-12.0 [facility] LakeUrplgvvBHQHSTBNDQ2685-36-83 18:25:00 Test Item Value Reference Range Interpretation Comments Basophils # (test code 0.1 See_Comment [Aut omated message] The = Basophils #) system which generated this result tra nsmitted reference range : <=0.2. The reference r robbie was not used to int erpret this result as normal/abnormal . [facility] LakeLkvsdhyLRPRNXHGSO9205-92-59 18:25:00 Test Item Value Reference Range Interpretation Comments Eosinophils # (test code 0.1 See_Comment [A utomated message] The = Eosinophils #) system whic h generated this result tra nsmitted reference range : <=0.5. The reference r robbie was not used to int erpret this result as normal/abnormal . [facility] LakeSplbrolOBCVCNCTJR7643-78-71 18:25:00 Test Item Value Reference Range Interpretation Comments Monocytes # (test code 0.4 See_Comment [Aut omated message] The = Monocytes #) system which generated this result tra nsmitted reference range : <=0.8. The reference r robbie was not used to int erpret this result as normal/abnormal . [facility]Rez[facility] [id number] 18:25:00 Test Item Value Reference Range Interpretation Comments ABO/Rh (test code = ABO/Rh) O POS [facility] [id number] 18:25:00 Test Item Value Reference Range Interpretation Comments Antibody Scrn (test Negative (10/28/16 12:25 code = Antibody Scrn) PM) [facility] CenterNONOCHEM [id number] 18:25:00 Test Item Value Reference Range Interpretation Comments Magnesium Lvl (test code = Magnesium 1.9 1.8-2.4 Lvl) [facility] HospitalWxfrhvsFEZJRWCXFBRD6065-59-51 18:25:00 Test Item Value Reference Range Interpretation Comments Potassium Lvl (test code = Potassium 4.4 3.5-5.1 Lvl) [facility]lwzbaiIZMBSOZCNLCX4528-98-80 18:25:00 Test Item Value Reference Range Interpretation Comments Calcium Lvl (test code = Calcium Lvl) 9.4 8.5-10.5 [facility] HospitalFvkpmmrZZGKDCPLSGIU1060-57-62 18:25:00 Test Item Value Reference Range Interpretation Comments CO2 (test code = CO2) 31 24-32 [facility] HospitalOaxxrkhKGCTOJJISTHG3263-44-08 18:25:00 Test Item Value Reference Range Interpretation Comments Chloride Lvl (test code = Chloride Lvl) 103 95-109 [facility] HospitalNcplmatKOPGUUNOHSIF0553-25-49 18:25:00 Test Item Value Reference Range Interpretation Comments eGFR (test code = eGFR) 55 [facility] HospitalZppnvspVTVGXXTOFWWB1971-51-14 18:25:00 Test Item Value Reference Range Interpretation Comments Sodium Lvl (test code = Sodium Lvl) 141 135-145 [facility] HospitalYipbextVCLOKYNMQPJU9921-98-85 18:25:00 Test Item Value Reference Range Interpretation Comments Creatinine Lvl (test code = Creatinine 0.97 0.50-1.40 Lvl) [facility] HospitalZsywzzrJRNFEBVAMYXP2748-75-42 18:25:00 Test Item Value Reference Range Interpretation Comments BUN (test code = BUN) 24 7-22 [facility] HospitalNqrkauyLKPVODONRTQF9426-99-65 18:25:00 Test Item Value Reference Range Interpretation Comments Glucose Lvl (test code = Glucose Lvl) 108 70-99 [facility] HospitalFfdlshyNIKHAUFEVRMB3803-27-86 18:25:00 Test Item Value Reference Range Interpretation Comments AGAP (test code = AGAP) 11.4 10.0-20.0 [facility] LakeEzunokoIYWCFYZVOK7064-50-35 18:25:00 Test Item Value Reference Range Interpretation Comments INR (test code = INR) 1.10 0.85-1.17 [facility] LakeFoxryksZZYHKYAAJF0339-42-10 18:25:00 Test Item Value Reference Range Interpretation Comments PT (test code = PT) 14.4 s 12.0-14.7 [facility] LakeAeynouqEJAKQGCFBV5373-41-75 18:25:00 Test Item Value Reference Range Interpretation Comments PTT (test code = PTT) 30.3 s 22.9-35.8 [facility] LakeZexzkpkXHJHVEEYOK5241-48-01 18:25:00 Test Item Value Reference Range Interpretation Comments Hgb (test code = Hgb) 13.1 12.0-16.0 [facility] LakeZkytxlnOQENYJBZYW5208-46-56 18:25:00 Test Item Value Reference Range Interpretation Comments RBC (test code = RBC) 4.51 4.20-5.40 [facility] LakeNqcuybdMIKPNCUCUQ3852-49-34 18:25:00 Test Item Value Reference Range Interpretation Comments WBC (test code = WBC) 5.4 3.7-10.4 [facility] LakePgksypjNXWNVPNIZV4689-39-12 18:25:00 Test Item Value Reference Range Interpretation Comments MPV (test code = MPV) 7.2 7.4-10.4 [facility] LakeLbszpmgQGVOKVBUIB1021-49-85 18:25:00 Test Item Value Reference Range Interpretation Comments MCHC (test code = MCHC) 33.0 32.0-36.0 [facility] LakeGombklhAGYUSROQYN6833-60-68 18:25:00 Test Item Value Reference Range Interpretation Comments RDW (test code = RDW) 14.0 11.5-14.5 [facility] LakeMdgccniELTMCZLAPC4376-24-76 18:25:00 Test Item Value Reference Range Interpretation Comments Platelet (test code = Platelet) 278 133-450 [facility] LakeOxgieluSZLUMSLTRD0596-46-93 18:25:00 Test Item Value Reference Range Interpretation Comments MCH (test code = MCH) 29.0 pg 27.0-31.0 [facility] LakeDyxmofgAZTQNNJKYZ1254-96-53 18:25:00 Test Item Value Reference Range Interpretation Comments MCV (test code = MCV) 87.9 80.0-98.0 [facility] LakeYezsjwwLZVHVHGNBJ9624-40-94 18:25:00 Test Item Value Reference Range Interpretation Comments Hct (test code = Hct) 39.7 36.0-48.0 [facility] LakeAayiuelVPYXMHTRZO5268-92-29 18:25:00 Test Item Value Reference Range Interpretation Comments Eosinophils (test code = 2.2 See_Comment [A utomated message] The Eosinophils) system which ge nerated this result tra nsmitted reference range : <=4.0. The reference r robbie was not used to int erpret this result as normal/abnormal . [facility] LakeDtzdxupCEWEPQXPNJ8423-92-11 18:25:00 Test Item Value Reference Range Interpretation Comments Segs-Bands # (test code = Segs-Bands #) 2.8 1.5-8.1 [facility] LakePbvxklxQRJSVTNKOJ1439-50-69 18:25:00 Test Item Value Reference Range Interpretation Comments Basophils (test code = 0.9 See_Comment [Aut omated message] The Basophils) system which ge nerated this result tra nsmitted reference range : <=1.0. The reference r robbie was not used to int erpret this result as normal/abnormal . [facility] LakeEqaxoloKTLUCBXODY9549-79-46 18:25:00 Test Item Value Reference Range Interpretation Comments Lymphocytes # (test code = Lymphocytes 2.1 1.0-5.5 #) [facility] LakeFtwoxzxJLEFNMIZPO9768-27-23 18:25:00 Test Item Value Reference Range Interpretation Comments Segs (test code = Segs) 52.3 45.0-75.0 [facility] LakeKcjcdilJSOHEBLLXI8813-79-83 18:25:00 Test Item Value Reference Range Interpretation Comments Lymphocytes (test code = Lymphocytes) 38.0 20.0-40.0 [facility] LakeJnihtboUJXXQPYBHA1971-40-13 18:25:00 Test Item Value Reference Range Interpretation Comments Monocytes (test code = Monocytes) 6.6 2.0-12.0 [facility] LakePaoxeorPQPVBUBYOM1254-72-45 18:25:00 Test Item Value Reference Range Interpretation Comments Basophils # (test code 0.1 See_Comment [Aut omated message] The = Basophils #) system which generated this result tra nsmitted reference range : <=0.2. The reference r robbie was not used to int erpret this result as normal/abnormal . [facility] LakeSuvxqyeJSBKCPMKXA2138-76-68 18:25:00 Test Item Value Reference Range Interpretation Comments Eosinophils # (test code 0.1 See_Comment [A utomated message] The = Eosinophils #) system whic h generated this result tra nsmitted reference range : <=0.5. The reference r robbie was not used to int erpret this result as normal/abnormal . [facility] LakeIkuvjiuCJTJFKEUMQ6409-41-18 18:25:00 Test Item Value Reference Range Interpretation Comments Monocytes # (test code 0.4 See_Comment [Aut omated message] The = Monocytes #) system which generated this result tra nsmitted reference range : <=0.8. The reference r robbie was not used to int erpret this result as normal/abnormal . [facility] [id number] 18:25:00 Test Item Value Reference Range Interpretation Comments ABO/Rh (test code = ABO/Rh) O POS [facility] [id number] 18:25:00 Test Item Value Reference Range Interpretation Comments Antibody Scrn (test Negative (10/28/16 12:25 code = Antibody Scrn) PM) [facility]CHE[facility] [id number] 18:25:00 Test Item Value Reference Range Interpretation Comments Magnesium Lvl (test code = Magnesium 1.9 1.8-2.4 Lvl) [facility] CenterEegimzbJBXHGHOVTOAH9519-47-93 18:25:00 Test Item Value Reference Range Interpretation Comments Potassium Lvl (test code = Potassium 4.4 3.5-5.1 Lvl) [facility] HospitalLfpxqayEVDOTBCIFTPC3996-69-30 18:25:00 Test Item Value Reference Range Interpretation Comments Calcium Lvl (test code = Calcium Lvl) 9.4 8.5-10.5 [facility] HospitalRdkedjmOZTLASUOGOMF6432-47-68 18:25:00 Test Item Value Reference Range Interpretation Comments CO2 (test code = CO2) 31 24-32 [facility] HospitalFmscarpSVHMZCDXJRQR8325-60-80 18:25:00 Test Item Value Reference Range Interpretation Comments Chloride Lvl (test code = Chloride Lvl) 103 95-109 [facility] HospitalJgmscnuXXSMOGAYHXSZ0769-84-11 18:25:00 Test Item Value Reference Range Interpretation Comments eGFR (test code = eGFR) 55 [facility] HospitalLtcphzqAOYBKQBXXZMP5380-58-61 18:25:00 Test Item Value Reference Range Interpretation Comments Sodium Lvl (test code = Sodium Lvl) 141 135-145 [facility] HospitalIasjcenCILDDOOLVRRZ4359-38-25 18:25:00 Test Item Value Reference Range Interpretation Comments Creatinine Lvl (test code = Creatinine 0.97 0.50-1.40 Lvl) [facility] HospitalDbsokqhGWDWITMEOIDP5504-16-10 18:25:00 Test Item Value Reference Range Interpretation Comments BUN (test code = BUN) 24 7-22 [facility] HospitalQfeqjgwERLQGBQWSZBS6207-90-62 18:25:00 Test Item Value Reference Range Interpretation Comments Glucose Lvl (test code = Glucose Lvl) 108 70-99 [facility] HospitalUymrgvrDVNZPVPVVAZH2755-64-37 18:25:00 Test Item Value Reference Range Interpretation Comments AGAP (test code = AGAP) 11.4 10.0-20.0 [facility] LakeUrcodxjVDGVVTLGGK0033-35-24 18:25:00 Test Item Value Reference Range Interpretation Comments INR (test code = INR) 1.10 0.85-1.17 [facility] LakeNhppymeBLDZEZQNHO4448-77-70 18:25:00 Test Item Value Reference Range Interpretation Comments PT (test code = PT) 14.4 s 12.0-14.7 [facility] LakeOhpwxpfFEZEOZZTVV2245-84-24 18:25:00 Test Item Value Reference Range Interpretation Comments PTT (test code = PTT) 30.3 s 22.9-35.8 [facility] LakeWjjcikeTMJOIZWKNP7976-43-26 18:25:00 Test Item Value Reference Range Interpretation Comments Hgb (test code = Hgb) 13.1 12.0-16.0 [facility] LakeOybvcrqYHOZYHAHNC5897-34-30 18:25:00 Test Item Value Reference Range Interpretation Comments RBC (test code = RBC) 4.51 4.20-5.40 [facility] LakeXgglwtfHUKUZTKQND6390-70-67 18:25:00 Test Item Value Reference Range Interpretation Comments WBC (test code = WBC) 5.4 3.7-10.4 [facility] LakeBvujxinQZBZSXFCNV5995-74-50 18:25:00 Test Item Value Reference Range Interpretation Comments MPV (test code = MPV) 7.2 7.4-10.4 [facility] LakeHdhrwmrDCSOJOSJLA1082-65-94 18:25:00 Test Item Value Reference Range Interpretation Comments MCHC (test code = MCHC) 33.0 32.0-36.0 [facility] LakeQicpscfVZAYKNCKBG6522-50-92 18:25:00 Test Item Value Reference Range Interpretation Comments RDW (test code = RDW) 14.0 11.5-14.5 [facility] LakePiprrdtYRDZKZZNHE3612-68-11 18:25:00 Test Item Value Reference Range Interpretation Comments Platelet (test code = Platelet) 278 133-450 [facility] LakeWjpcvkeXNGXWMVXSB4224-89-28 18:25:00 Test Item Value Reference Range Interpretation Comments MCH (test code = MCH) 29.0 pg 27.0-31.0 [facility] LakeEinvfzvRIGGGZKMLT1777-37-19 18:25:00 Test Item Value Reference Range Interpretation Comments MCV (test code = MCV) 87.9 80.0-98.0 [facility] LakeYxlmmhyJBFLUTGROT1811-10-26 18:25:00 Test Item Value Reference Range Interpretation Comments Hct (test code = Hct) 39.7 36.0-48.0 [facility] LakeSfxqhiwRSMSQBQLJF4991-07-52 18:25:00 Test Item Value Reference Range Interpretation Comments Eosinophils (test code = 2.2 See_Comment [A utomated message] The Eosinophils) system which ge nerated this result tra nsmitted reference range : <=4.0. The reference r robbie was not used to int erpret this result as normal/abnormal . [facility] LakePjhradsTHUSSDBGPX2151-27-55 18:25:00 Test Item Value Reference Range Interpretation Comments Segs-Bands # (test code = Segs-Bands #) 2.8 1.5-8.1 [facility] LakeCedliveDOIUIUEAOP2354-54-93 18:25:00 Test Item Value Reference Range Interpretation Comments Basophils (test code = 0.9 See_Comment [Aut omated message] The Basophils) system which ge nerated this result tra nsmitted reference range : <=1.0. The reference r robbie was not used to int erpret this result as normal/abnormal . [facility] LakeNyekypuPAUQTEXJTV4277-69-22 18:25:00 Test Item Value Reference Range Interpretation Comments Lymphocytes # (test code = Lymphocytes 2.1 1.0-5.5 #) [facility] LakeQdfyjrtWSEPPVJMZF0712-85-49 18:25:00 Test Item Value Reference Range Interpretation Comments Segs (test code = Segs) 52.3 45.0-75.0 [facility] LakeTaoaecdGVKGNSHHHG5483-98-89 18:25:00 Test Item Value Reference Range Interpretation Comments Lymphocytes (test code = Lymphocytes) 38.0 20.0-40.0 [facility] LakeWksyvudHYSRAWCJJA5718-33-69 18:25:00 Test Item Value Reference Range Interpretation Comments Monocytes (test code = Monocytes) 6.6 2.0-12.0 [facility] LakeQujnpoiBJWPWURPCT6144-01-88 18:25:00 Test Item Value Reference Range Interpretation Comments Basophils # (test code 0.1 See_Comment [Aut omated message] The = Basophils #) system which generated this result tra nsmitted reference range : <=0.2. The reference r robbie was not used to int erpret this result as normal/abnormal . [facility] LakeGiykimiHDCDLFPDWJ8958-93-01 18:25:00 Test Item Value Reference Range Interpretation Comments Eosinophils # (test code 0.1 See_Comment [A utomated message] The = Eosinophils #) system whic h generated this result tra nsmitted reference range : <=0.5. The reference r robbie was not used to int erpret this result as normal/abnormal . [facility] LakeAdyftshMHUOFWVJVW1038-32-00 18:25:00 Test Item Value Reference Range Interpretation Comments Monocytes # (test code 0.4 See_Comment [Aut omated message] The = Monocytes #) system which generated this result tra nsmitted reference range : <=0.8. The reference r robbie was not used to int erpret this result as normal/abnormal . [facility] ANGWOBJ2608-63-13 18:25:00 Test Item Value Reference Range Interpretation Comments ABO/Rh (test code = ABO/Rh) O POS [facility] KNWMUIG2439-52-43 18:25:00 Test Item Value Reference Range Interpretation Comments Antibody Scrn (test Negative (10/28/16 12:25 code = Antibody Scrn) PM) [facility] [id number] 18:25:00 Test Item Value Reference Range Interpretation Comments Magnesium Lvl (test code = Magnesium 1.9 1.8-2.4 Lvl) [facility] HospitalBewocqbAOXNOUGYBRHY1974-98-14 18:25:00 Test Item Value Reference Range Interpretation Comments Potassium Lvl (test code = Potassium 4.4 3.5-5.1 Lvl) [facility] HospitalNeunanxMWDVVBVZDYZI1214-10-04 18:25:00 Test Item Value Reference Range Interpretation Comments Calcium Lvl (test code = Calcium Lvl) 9.4 8.5-10.5 [facility] HospitalIedaudtKZNCTBTJLHFJ9641-26-44 18:25:00 Test Item Value Reference Range Interpretation Comments CO2 (test code = CO2) 31 24-32 [facility] HospitalPbkemeaOYHPPIEIEZLQ1507-57-24 18:25:00 Test Item Value Reference Range Interpretation Comments Chloride Lvl (test code = Chloride Lvl) 103 95-109 [facility] HospitalYetxofuGTGFCQTBSYKM6011-15-64 18:25:00 Test Item Value Reference Range Interpretation Comments eGFR (test code = eGFR) 55 [facility] HospitalLmmffjqUHLTHVWRMCDO7744-84-31 18:25:00 Test Item Value Reference Range Interpretation Comments Sodium Lvl (test code = Sodium Lvl) 141 135-145 [facility] HospitalIvlhvcgERPPWMFSUAQS0786-56-86 18:25:00 Test Item Value Reference Range Interpretation Comments Creatinine Lvl (test code = Creatinine 0.97 0.50-1.40 Lvl) [facility] HospitalCmueupjXXBFXSYLJHXE4604-14-42 18:25:00 Test Item Value Reference Range Interpretation Comments BUN (test code = BUN) 24 7-22 [facility] HospitalXbyqmbjQPFOSUDIDDID4900-06-93 18:25:00 Test Item Value Reference Range Interpretation Comments Glucose Lvl (test code = Glucose Lvl) 108 70-99 [facility] HospitalJbmvpjzKIZRBFFLXXXV6940-50-88 18:25:00 Test Item Value Reference Range Interpretation Comments AGAP (test code = AGAP) 11.4 10.0-20.0 [facility] LakeCitskefTXNTJIBUZR7223-79-50 18:25:00 Test Item Value Reference Range Interpretation Comments INR (test code = INR) 1.10 0.85-1.17 [facility] LakeCdzkxajZFEKNQXKTD9959-77-92 18:25:00 Test Item Value Reference Range Interpretation Comments PT (test code = PT) 14.4 s 12.0-14.7 [facility] LakeImrlbtpTVKPQWPMSB6928-21-15 18:25:00 Test Item Value Reference Range Interpretation Comments PTT (test code = PTT) 30.3 s 22.9-35.8 [facility] LakeYmstqehHRJOKQMTJC1244-09-60 18:25:00 Test Item Value Reference Range Interpretation Comments Hgb (test code = Hgb) 13.1 12.0-16.0 [facility] LakeZospqumNAWMXDYMUJ4183-56-71 18:25:00 Test Item Value Reference Range Interpretation Comments RBC (test code = RBC) 4.51 4.20-5.40 [facility] LakeQphhuhwEELXTPPWKN9767-85-81 18:25:00 Test Item Value Reference Range Interpretation Comments WBC (test code = WBC) 5.4 3.7-10.4 [facility] LakePvdacwzNDNGTAPNLT8521-70-83 18:25:00 Test Item Value Reference Range Interpretation Comments MPV (test code = MPV) 7.2 7.4-10.4 [facility] LakeNkbjrodGZARNESAVU7614-90-98 18:25:00 Test Item Value Reference Range Interpretation Comments MCHC (test code = MCHC) 33.0 32.0-36.0 [facility] LakeArqkyaeMVFLPDBIHM8673-92-89 18:25:00 Test Item Value Reference Range Interpretation Comments RDW (test code = RDW) 14.0 11.5-14.5 [facility] LakeHzfigsuMPMZZHHDWV4221-20-29 18:25:00 Test Item Value Reference Range Interpretation Comments Platelet (test code = Platelet) 278 133-450 [facility] LakeWptmipzIWOMPWRNMX0282-09-40 18:25:00 Test Item Value Reference Range Interpretation Comments MCH (test code = MCH) 29.0 pg 27.0-31.0 [facility] LakeUkennzvVJNQULHNKV2940-98-83 18:25:00 Test Item Value Reference Range Interpretation Comments MCV (test code = MCV) 87.9 80.0-98.0 [facility] LakeYygvoczVXBEYPCJYK9354-71-63 18:25:00 Test Item Value Reference Range Interpretation Comments Hct (test code = Hct) 39.7 36.0-48.0 [facility] LakeBgowujxAVWXFDPFJX6642-34-15 18:25:00 Test Item Value Reference Range Interpretation Comments Eosinophils (test code = 2.2 See_Comment [A utomated message] The Eosinophils) system which ge nerated this result tra nsmitted reference range : <=4.0. The reference r robbie was not used to int erpret this result as normal/abnormal . [facility] LakeJabgkngBRWYYUHSGC7248-53-67 18:25:00 Test Item Value Reference Range Interpretation Comments Segs-Bands # (test code = Segs-Bands #) 2.8 1.5-8.1 [place] [id number] 18:25:00 Test Item Value Reference Range Interpretation Comments Basophils (test code = 0.9 See_Comment [Aut omated message] The Basophils) system which ge nerated this result tra nsmitted reference range : <=1.0. The reference r robbie was not used to int erpret this result as normal/abnormal . [facility] LakeCbrlxbaOSDXSIEGQK7824-61-29 18:25:00 Test Item Value Reference Range Interpretation Comments Lymphocytes # (test code = Lymphocytes 2.1 1.0-5.5 #) [facility] LakeWgfywecYXLFCACEDO6813-29-87 18:25:00 Test Item Value Reference Range Interpretation Comments Segs (test code = Segs) 52.3 45.0-75.0 [facility] LakeLsepbliUBUCZKKYFR4932-07-69 18:25:00 Test Item Value Reference Range Interpretation Comments Lymphocytes (test code = Lymphocytes) 38.0 20.0-40.0 [facility] LakeUtvpvunASHGZGGSRO3612-63-42 18:25:00 Test Item Value Reference Range Interpretation Comments Monocytes (test code = Monocytes) 6.6 2.0-12.0 [facility] LakeVbitvkmNLNLUPCVOI0924-55-23 18:25:00 Test Item Value Reference Range Interpretation Comments Basophils # (test code 0.1 See_Comment [Aut omated message] The = Basophils #) system which generated this result tra nsmitted reference range : <=0.2. The reference r robbie was not used to int erpret this result as normal/abnormal . [facility] LakeEhxcpmhDQTWBVLYXN0395-22-67 18:25:00 Test Item Value Reference Range Interpretation Comments Eosinophils # (test code 0.1 See_Comment [A utomated message] The = Eosinophils #) system whic h generated this result tra nsmitted reference range : <=0.5. The reference r robbie was not used to int erpret this result as normal/abnormal . [facility] LakeLvntpfeRPDQMXOAVU8170-76-70 18:25:00 Test Item Value Reference Range Interpretation Comments Monocytes # (test code 0.4 See_Comment [Aut omated message] The = Monocytes #) system which generated this result tra nsmitted reference range : <=0.8. The reference r robbie was not used to int erpret this result as normal/abnormal . [facility] [id number] 18:25:00 Test Item Value Reference Range Interpretation Comments ABO/Rh (test code = ABO/Rh) O POS [facility] [id number] 18:25:00 Test Item Value Reference Range Interpretation Comments Antibody Scrn (test Negative (10/28/16 12:25 code = Antibody Scrn) PM) [facility] HospitalCHE[facility] [id number] 18:25:00 Test Item Value Reference Range Interpretation Comments Magnesium Lvl (test code = Magnesium 1.9 1.8-2.4 Lvl) [facility] HospitalChvtlbhWNPUEPTILIUZ9380-21-20 18:25:00 Test Item Value Reference Range Interpretation Comments Potassium Lvl (test code = Potassium 4.4 3.5-5.1 Lvl) [facility] HospitalPvcfxjeQEXIRSWYENGP5001-59-02 18:25:00 Test Item Value Reference Range Interpretation Comments Calcium Lvl (test code = Calcium Lvl) 9.4 8.5-10.5 [facility] HospitalUaptgchNERXTUWLATPU4681-55-85 18:25:00 Test Item Value Reference Range Interpretation Comments CO2 (test code = CO2) 31 24-32 [facility] HospitalPqfdiboKWKSAFZJKKLT9576-33-48 18:25:00 Test Item Value Reference Range Interpretation Comments Chloride Lvl (test code = Chloride Lvl) 103 95-109 [facility] HospitalTbuklugTPXSDWJDQWVS5927-77-60 18:25:00 Test Item Value Reference Range Interpretation Comments eGFR (test code = eGFR) 55 [facility] HospitalBpxjdrbKYMRWPOPDWBQ6972-33-64 18:25:00 Test Item Value Reference Range Interpretation Comments Sodium Lvl (test code = Sodium Lvl) 141 135-145 [facility] HospitalLkmhezmTVOLXLBJBEXR4863-13-30 18:25:00 Test Item Value Reference Range Interpretation Comments Creatinine Lvl (test code = Creatinine 0.97 0.50-1.40 Lvl) [facility] HospitalNunicllZBGEZIVPCYXD7301-62-50 18:25:00 Test Item Value Reference Range Interpretation Comments BUN (test code = BUN) 24 7-22 [facility] HospitalJhrwbtqTTYCGVRDXTTX2997-59-35 18:25:00 Test Item Value Reference Range Interpretation Comments Glucose Lvl (test code = Glucose Lvl) 108 70-99 [facility] HospitalTkdpqajMEFBYRSQDAFZ0433-02-64 18:25:00 Test Item Value Reference Range Interpretation Comments AGAP (test code = AGAP) 11.4 10.0-20.0 [facility] LakeEwtcsrwYAPQVCQYXG6430-89-91 18:25:00 Test Item Value Reference Range Interpretation Comments INR (test code = INR) 1.10 0.85-1.17 [facility] LakeFlnweyrJJEAPWETTG3558-09-43 18:25:00 Test Item Value Reference Range Interpretation Comments PT (test code = PT) 14.4 s 12.0-14.7 [facility] LakeWjdbwfjFEVUGFQFJE1642-78-54 18:25:00 Test Item Value Reference Range Interpretation Comments PTT (test code = PTT) 30.3 s 22.9-35.8 [facility] LakeHbqwtgoHOKWFMVEWB1392-28-02 18:25:00 Test Item Value Reference Range Interpretation Comments Hgb (test code = Hgb) 13.1 12.0-16.0 [facility] LakeQbwgwpwJMXSTPYQEF2481-15-24 18:25:00 Test Item Value Reference Range Interpretation Comments RBC (test code = RBC) 4.51 4.20-5.40 [facility] LakeRkjeudhPNVNVPNGWP0194-11-50 18:25:00 Test Item Value Reference Range Interpretation Comments WBC (test code = WBC) 5.4 3.7-10.4 [facility] LakeAjytkitYGYXTPUFDU4060-46-71 18:25:00 Test Item Value Reference Range Interpretation Comments MPV (test code = MPV) 7.2 7.4-10.4 [facility] LakeWmdtecwXNXQOVMQLF8724-91-32 18:25:00 Test Item Value Reference Range Interpretation Comments MCHC (test code = MCHC) 33.0 32.0-36.0 [facility] LakeLnbdwbcXSRJRXPGIE9136-55-52 18:25:00 Test Item Value Reference Range Interpretation Comments RDW (test code = RDW) 14.0 11.5-14.5 [facility] LakeOkyhcipMHEXLTVNMX5270-92-12 18:25:00 Test Item Value Reference Range Interpretation Comments Platelet (test code = Platelet) 278 133-450 [facility] LakeKpmmyjnBMOPOGSRPP5578-55-09 18:25:00 Test Item Value Reference Range Interpretation Comments MCH (test code = MCH) 29.0 pg 27.0-31.0 [facility] LakeNdiulbzXTWVYONIAZ3489-33-60 18:25:00 Test Item Value Reference Range Interpretation Comments MCV (test code = MCV) 87.9 80.0-98.0 [facility] LakeEwssgjpNXROOQJUZX9024-91-30 18:25:00 Test Item Value Reference Range Interpretation Comments Hct (test code = Hct) 39.7 36.0-48.0 [facility] LakeAdhharvQYUZWWAAYA4985-65-42 18:25:00 Test Item Value Reference Range Interpretation Comments Eosinophils (test code = 2.2 See_Comment [A utomated message] The Eosinophils) system which ge nerated this result tra nsmitted reference range : <=4.0. The reference r robbie was not used to int erpret this result as normal/abnormal . [facility] LakeTqsqcomLHCPCWOVGV1694-21-34 18:25:00 Test Item Value Reference Range Interpretation Comments Segs-Bands # (test code = Segs-Bands #) 2.8 1.5-8.1 [facility] LakeAgquehpZNMWAPCSLK4812-82-34 18:25:00 Test Item Value Reference Range Interpretation Comments Basophils (test code = 0.9 See_Comment [Aut omated message] The Basophils) system which ge nerated this result tra nsmitted reference range : <=1.0. The reference r robbie was not used to int erpret this result as normal/abnormal . [facility] LakePijzfgxZQVUZKCQOZ3177-78-56 18:25:00 Test Item Value Reference Range Interpretation Comments Lymphocytes # (test code = Lymphocytes 2.1 1.0-5.5 #) [facility] LakeXmmefumTYRFBSHWFA1969-59-27 18:25:00 Test Item Value Reference Range Interpretation Comments Segs (test code = Segs) 52.3 45.0-75.0 [facility] LakeNnfmwbdKYCVFHXQUD1205-11-65 18:25:00 Test Item Value Reference Range Interpretation Comments Lymphocytes (test code = Lymphocytes) 38.0 20.0-40.0 [facility] LakeWckrcsmZLSEBTMWXF5594-64-41 18:25:00 Test Item Value Reference Range Interpretation Comments Monocytes (test code = Monocytes) 6.6 2.0-12.0 [facility] LakeVxgpzfeOMOWIFCJGA9291-87-24 18:25:00 Test Item Value Reference Range Interpretation Comments Basophils # (test code 0.1 See_Comment [Aut omated message] The = Basophils #) system which generated this result tra nsmitted reference range : <=0.2. The reference r robbie was not used to int erpret this result as normal/abnormal . [facility] LakeTvpuyqkEOWAXDUKPM0081-03-86 18:25:00 Test Item Value Reference Range Interpretation Comments Eosinophils # (test code 0.1 See_Comment [A utomated message] The = Eosinophils #) system whic h generated this result tra nsmitted reference range : <=0.5. The reference r robbie was not used to int erpret this result as normal/abnormal . [facility] LakeLeosduwZOVUQZDSWE9632-13-52 18:25:00 Test Item Value Reference Range Interpretation Comments Monocytes # (test code 0.4 See_Comment [Aut omated message] The = Monocytes #) system which generated this result tra nsmitted reference range : <=0.8. The reference r robbie was not used to int erpret this result as normal/abnormal . [facility] OFBKDGY9851-68-57 18:25:00 Test Item Value Reference Range Interpretation Comments ABO/Rh (test code = ABO/Rh) O POS [facility] CenterRe[facility] OWSVYWA8769-28-82 18:25:00 Test Item Value Reference Range Interpretation Comments Antibody Scrn (test Negative (10/28/16 12:25 code = Antibody Scrn) PM) [facility] HospitalScoutzie [id number] 18:25:00 Test Item Value Reference Range Interpretation Comments Magnesium Lvl (test code = Magnesium 1.9 1.8-2.4 Lvl) [facility] CenterFtzwbhpJBJXXQXMXIAN8722-28-03 18:25:00 Test Item Value Reference Range Interpretation Comments Potassium Lvl (test code = Potassium 4.4 3.5-5.1 Lvl) [facility] HospitalQasrjwcGADWBLCEMWDY3529-24-25 18:25:00 Test Item Value Reference Range Interpretation Comments Calcium Lvl (test code = Calcium Lvl) 9.4 8.5-10.5 [facility] HospitalOeftunxTKPUDWETMDZF6158-03-10 18:25:00 Test Item Value Reference Range Interpretation Comments CO2 (test code = CO2) 31 24-32 [facility] HospitalYgfglxcPIRYKZLYGFTT5184-87-74 18:25:00 Test Item Value Reference Range Interpretation Comments Chloride Lvl (test code = Chloride Lvl) 103 95-109 [facility] HospitalCzpdpoiMAEFTQGFISMV1147-55-67 18:25:00 Test Item Value Reference Range Interpretation Comments eGFR (test code = eGFR) 55 [facility] HospitalDsuyigrHAYTXPWKYYEE4357-53-87 18:25:00 Test Item Value Reference Range Interpretation Comments Sodium Lvl (test code = Sodium Lvl) 141 135-145 [facility] HospitalMugvbwjXQCGDIOGXGRP1214-43-02 18:25:00 Test Item Value Reference Range Interpretation Comments Creatinine Lvl (test code = Creatinine 0.97 0.50-1.40 Lvl) [facility] HospitalRongeddTDKWDBSHYLFY0513-43-61 18:25:00 Test Item Value Reference Range Interpretation Comments BUN (test code = BUN) 24 7-22 [facility] HospitalVuruicrCSSHBGKDFHOD7080-35-69 18:25:00 Test Item Value Reference Range Interpretation Comments Glucose Lvl (test code = Glucose Lvl) 108 70-99 [facility] HospitalQgxwskoNCMOFHTQIBFT0046-67-20 18:25:00 Test Item Value Reference Range Interpretation Comments AGAP (test code = AGAP) 11.4 10.0-20.0 [facility] LakeGdxfdedGXLEJUDOJB2036-73-41 18:25:00 Test Item Value Reference Range Interpretation Comments INR (test code = INR) 1.10 0.85-1.17 [facility] LakeWbsbhddODRQSMPFHR4460-35-79 18:25:00 Test Item Value Reference Range Interpretation Comments PT (test code = PT) 14.4 s 12.0-14.7 [facility] LakeDymxzvcATUVLJUYZS4794-67-98 18:25:00 Test Item Value Reference Range Interpretation Comments PTT (test code = PTT) 30.3 s 22.9-35.8 [facility] LakeVnkxrkoQHSSIMJKFW2647-15-20 18:25:00 Test Item Value Reference Range Interpretation Comments Hgb (test code = Hgb) 13.1 12.0-16.0 [facility] LakeFuubnpsPQYEJRGRQZ2624-36-08 18:25:00 Test Item Value Reference Range Interpretation Comments RBC (test code = RBC) 4.51 4.20-5.40 [facility] LakeYcgvemcEKWCCQYXWD5888-76-81 18:25:00 Test Item Value Reference Range Interpretation Comments WBC (test code = WBC) 5.4 3.7-10.4 [facility] LakeGkegvggXMTEPSWTYX1967-41-62 18:25:00 Test Item Value Reference Range Interpretation Comments MPV (test code = MPV) 7.2 7.4-10.4 [facility] LakeLoidhrhFBUZZSMVVX0032-26-17 18:25:00 Test Item Value Reference Range Interpretation Comments MCHC (test code = MCHC) 33.0 32.0-36.0 [facility] LakeEfarpyiXRGIFEUXAD4964-46-57 18:25:00 Test Item Value Reference Range Interpretation Comments RDW (test code = RDW) 14.0 11.5-14.5 [facility] LakeIohtmnpXNFCHRONJI6096-11-36 18:25:00 Test Item Value Reference Range Interpretation Comments Platelet (test code = Platelet) 278 133-450 [facility] LakeUvrebwfUQYIEONYAU1257-31-65 18:25:00 Test Item Value Reference Range Interpretation Comments MCH (test code = MCH) 29.0 pg 27.0-31.0 [facility] LakeOifvmnwNZEQQAYDCF0445-90-38 18:25:00 Test Item Value Reference Range Interpretation Comments MCV (test code = MCV) 87.9 80.0-98.0 [facility] LakeSuglqzaDFXCTWRDWO7465-70-50 18:25:00 Test Item Value Reference Range Interpretation Comments Hct (test code = Hct) 39.7 36.0-48.0 [facility] LakeOlprndjTYRRCSYLYY6496-94-48 18:25:00 Test Item Value Reference Range Interpretation Comments Eosinophils (test code = 2.2 See_Comment [A utomated message] The Eosinophils) system which ge nerated this result tra nsmitted reference range : <=4.0. The reference r robbie was not used to int erpret this result as normal/abnormal . [facility] LakeBrmwgcaGJSESEAWLR1980-27-08 18:25:00 Test Item Value Reference Range Interpretation Comments Segs-Bands # (test code = Segs-Bands #) 2.8 1.5-8.1 [facility] LakeJbicwspYFDGJMCEIC1956-31-28 18:25:00 Test Item Value Reference Range Interpretation Comments Basophils (test code = 0.9 See_Comment [Aut omated message] The Basophils) system which ge nerated this result tra nsmitted reference range : <=1.0. The reference r robbie was not used to int erpret this result as normal/abnormal . [facility] LakeAypjhmcCCMHEVYHSN5383-38-32 18:25:00 Test Item Value Reference Range Interpretation Comments Lymphocytes # (test code = Lymphocytes 2.1 1.0-5.5 #) [facility] LakeQpeksklBYFKWWCLTG0263-83-51 18:25:00 Test Item Value Reference Range Interpretation Comments Segs (test code = Segs) 52.3 45.0-75.0 [facility] LakeSluddldUORBXQIMVQ9445-36-36 18:25:00 Test Item Value Reference Range Interpretation Comments Lymphocytes (test code = Lymphocytes) 38.0 20.0-40.0 [facility] LakeNewedwwRYBNZUMMHR0258-45-61 18:25:00 Test Item Value Reference Range Interpretation Comments Monocytes (test code = Monocytes) 6.6 2.0-12.0 [facility] LakeTkarjeuIONOTMRPOG6806-40-85 18:25:00 Test Item Value Reference Range Interpretation Comments Basophils # (test code 0.1 See_Comment [Aut omated message] The = Basophils #) system which generated this result tra nsmitted reference range : <=0.2. The reference r robbie was not used to int erpret this result as normal/abnormal . [facility] LakeRkoofcsBGSMNNHPJO1307-91-57 18:25:00 Test Item Value Reference Range Interpretation Comments Eosinophils # (test code 0.1 See_Comment [A utomated message] The = Eosinophils #) system whic h generated this result tra nsmitted reference range : <=0.5. The reference r robbie was not used to int erpret this result as normal/abnormal . [facility] LakeStqgainTRGPMQKPHT4475-97-43 18:25:00 Test Item Value Reference Range Interpretation Comments Monocytes # (test code 0.4 See_Comment [Aut omated message] The = Monocytes #) system which generated this result tra nsmitted reference range : <=0.8. The reference r robbie was not used to int erpret this result as normal/abnormal . [facility] ZTYAJYM7398-04-09 18:25:00 Test Item Value Reference Range Interpretation Comments ABO/Rh (test code = ABO/Rh) O POS [facility] JMXYFVL4651-61-44 18:25:00 Test Item Value Reference Range Interpretation Comments Antibody Scrn (test Negative (10/28/16 12:25 code = Antibody Scrn) PM) [facility]CHE[facility] [id number] 18:25:00 Test Item Value Reference Range Interpretation Comments Magnesium Lvl (test code = Magnesium 1.9 1.8-2.4 Lvl) [facility] HospitalTswdwpvRQXBPUPVFSPJ4874-99-85 18:25:00 Test Item Value Reference Range Interpretation Comments Potassium Lvl (test code = Potassium 4.4 3.5-5.1 Lvl) [facility] HospitalUgjxdxsQYRATPUAUSDZ7431-65-40 18:25:00 Test Item Value Reference Range Interpretation Comments Calcium Lvl (test code = Calcium Lvl) 9.4 8.5-10.5 [facility] HospitalSarxpdmSVZYFKNAGBFL6637-20-40 18:25:00 Test Item Value Reference Range Interpretation Comments CO2 (test code = CO2) 31 24-32 [facility] HospitalOarlrwuHBDXJDQSLIBY9033-60-45 18:25:00 Test Item Value Reference Range Interpretation Comments Chloride Lvl (test code = Chloride Lvl) 103 95-109 [facility] HospitalBvncxlcFLTDOLTKFAVI7774-10-88 18:25:00 Test Item Value Reference Range Interpretation Comments eGFR (test code = eGFR) 55 [facility] HospitalHdhejqjUXBQWUJTJIVM4679-74-67 18:25:00 Test Item Value Reference Range Interpretation Comments Sodium Lvl (test code = Sodium Lvl) 141 135-145 [facility] HospitalUxxruinEDHGGMSCJOHD4793-38-54 18:25:00 Test Item Value Reference Range Interpretation Comments Creatinine Lvl (test code = Creatinine 0.97 0.50-1.40 Lvl) [facility] HospitalTjotcwqSFWPOTRYYNOL5616-98-09 18:25:00 Test Item Value Reference Range Interpretation Comments BUN (test code = BUN) 24 7-22 [facility] HospitalJfdlqhwQEDNGGTWZRSL7171-78-94 18:25:00 Test Item Value Reference Range Interpretation Comments Glucose Lvl (test code = Glucose Lvl) 108 70-99 [facility]PpqkldpXNDAPNQAHYHK0405-64-06 18:25:00 Test Item Value Reference Range Interpretation Comments AGAP (test code = AGAP) 11.4 10.0-20.0 [facility]VrxbhitPZZJFDVDYZ4330-81-32 18:25:00 Test Item Value Reference Range Interpretation Comments INR (test code = INR) 1.10 0.85-1.17 [facility] LakeVhwexinPDWUZHFHZW2702-23-63 18:25:00 Test Item Value Reference Range Interpretation Comments PT (test code = PT) 14.4 s 12.0-14.7 [facility] LakeMbxpyhkOBKDLZHPRH2574-45-96 18:25:00 Test Item Value Reference Range Interpretation Comments PTT (test code = PTT) 30.3 s 22.9-35.8 [facility] LakeYwmmanySIGKNYECUT8359-94-02 18:25:00 Test Item Value Reference Range Interpretation Comments Hgb (test code = Hgb) 13.1 12.0-16.0 [facility] LakeAftggzpRBCAKIJPTQ3255-67-11 18:25:00 Test Item Value Reference Range Interpretation Comments RBC (test code = RBC) 4.51 4.20-5.40 [facility] LakeXiniwxwTVGDHIGLQU7951-79-63 18:25:00 Test Item Value Reference Range Interpretation Comments WBC (test code = WBC) 5.4 3.7-10.4 [facility] LakeWdstxglZWPZHIFYTZ6990-40-86 18:25:00 Test Item Value Reference Range Interpretation Comments MPV (test code = MPV) 7.2 7.4-10.4 [facility] LakeNpwltjzGFJVEZPRAG4824-70-19 18:25:00 Test Item Value Reference Range Interpretation Comments MCHC (test code = MCHC) 33.0 32.0-36.0 [facility] LakeSjjorjwGBKFEUXPYJ3036-64-18 18:25:00 Test Item Value Reference Range Interpretation Comments RDW (test code = RDW) 14.0 11.5-14.5 [facility] LakeKzgwyyuNFYEYKJAOI5918-13-35 18:25:00 Test Item Value Reference Range Interpretation Comments Platelet (test code = Platelet) 278 133-450 [facility] LakeUqphgbrXALNNSXMBO3625-50-05 18:25:00 Test Item Value Reference Range Interpretation Comments MCH (test code = MCH) 29.0 pg 27.0-31.0 [facility] LakeSmwvtcoNOZRMBRDYH6030-42-49 18:25:00 Test Item Value Reference Range Interpretation Comments MCV (test code = MCV) 87.9 80.0-98.0 [facility] LakeIkfmauvBQUOCYDJBL5680-50-53 18:25:00 Test Item Value Reference Range Interpretation Comments Hct (test code = Hct) 39.7 36.0-48.0 [facility] LakeNinpeixKXIDXTUWNE0675-48-23 18:25:00 Test Item Value Reference Range Interpretation Comments Eosinophils (test code = 2.2 See_Comment [A utomated message] The Eosinophils) system which ge nerated this result tra nsmitted reference range : <=4.0. The reference r robbie was not used to int erpret this result as normal/abnormal . [facility] LakeYhbxfqxFXHLFDHKMK7781-69-00 18:25:00 Test Item Value Reference Range Interpretation Comments Segs-Bands # (test code = Segs-Bands #) 2.8 1.5-8.1 [facility] LakeOtjfesxLYVTBUHJHN2858-44-96 18:25:00 Test Item Value Reference Range Interpretation Comments Basophils (test code = 0.9 See_Comment [Aut omated message] The Basophils) system which ge nerated this result tra nsmitted reference range : <=1.0. The reference r robbie was not used to int erpret this result as normal/abnormal . [facility] LakeBlrtucjXDRPRYJBXW6008-15-73 18:25:00 Test Item Value Reference Range Interpretation Comments Lymphocytes # (test code = Lymphocytes 2.1 1.0-5.5 #) [facility] LakeSiynfnpNRZLLNSMUZ8448-35-51 18:25:00 Test Item Value Reference Range Interpretation Comments Segs (test code = Segs) 52.3 45.0-75.0 [facility] LakeTfcuyudUWIEHZLHGJ6443-57-19 18:25:00 Test Item Value Reference Range Interpretation Comments Lymphocytes (test code = Lymphocytes) 38.0 20.0-40.0 [facility] LakeIvoupswRXXZSQXZDU6511-15-14 18:25:00 Test Item Value Reference Range Interpretation Comments Monocytes (test code = Monocytes) 6.6 2.0-12.0 [facility] LakeSegpsnsJRENJJXTTP8755-39-17 18:25:00 Test Item Value Reference Range Interpretation Comments Basophils # (test code 0.1 See_Comment [Aut omated message] The = Basophils #) system which generated this result tra nsmitted reference range : <=0.2. The reference r robbie was not used to int erpret this result as normal/abnormal . [facility] LakeJftkyiaMNEBMXRRQA9837-18-89 18:25:00 Test Item Value Reference Range Interpretation Comments Eosinophils # (test code 0.1 See_Comment [A utomated message] The = Eosinophils #) system whic h generated this result tra nsmitted reference range : <=0.5. The reference r robbie was not used to int erpret this result as normal/abnormal . [facility] LakeQdslyrzWAAOGVVJBG3476-43-28 18:25:00 Test Item Value Reference Range Interpretation Comments Monocytes # (test code 0.4 See_Comment [Aut omated message] The = Monocytes #) system which generated this result tra nsmitted reference range : <=0.8. The reference r robbie was not used to int erpret this result as normal/abnormal . [facility] [id number] 18:25:00 Test Item Value Reference Range Interpretation Comments ABO/Rh (test code = ABO/Rh) O POS [facility] [id number] 18:25:00 Test Item Value Reference Range Interpretation Comments Antibody Scrn (test Negative (10/28/16 12:25 code = Antibody Scrn) PM) [facility] HospitalCHEM [id number] 18:25:00 Test Item Value Reference Range Interpretation Comments Magnesium Lvl (test code = Magnesium 1.9 1.8-2.4 Lvl) [facility] HospitalDlzavbfSHWLYWOCRMIM7486-60-03 18:25:00 Test Item Value Reference Range Interpretation Comments Potassium Lvl (test code = Potassium 4.4 3.5-5.1 Lvl) [facility] HospitalYwmepdaHSPRCUIBUJVX7349-04-95 18:25:00 Test Item Value Reference Range Interpretation Comments Calcium Lvl (test code = Calcium Lvl) 9.4 8.5-10.5 [facility] HospitalHjstkaeXHUXEHLBQGVZ0384-98-55 18:25:00 Test Item Value Reference Range Interpretation Comments CO2 (test code = CO2) 31 24-32 [facility] HospitalRrnlgweGWYRZDNXJMZB0719-05-12 18:25:00 Test Item Value Reference Range Interpretation Comments Chloride Lvl (test code = Chloride Lvl) 103 95-109 [facility] HospitalMqnrdfnGRAJUCMNBGAE1108-99-93 18:25:00 Test Item Value Reference Range Interpretation Comments eGFR (test code = eGFR) 55 [facility] HospitalRfyipuoXAMPQNRCIBGO4402-12-29 18:25:00 Test Item Value Reference Range Interpretation Comments Sodium Lvl (test code = Sodium Lvl) 141 135-145 [facility] HospitalKywibefEAJTVSJKQIXU4243-95-93 18:25:00 Test Item Value Reference Range Interpretation Comments Creatinine Lvl (test code = Creatinine 0.97 0.50-1.40 Lvl) [facility] HospitalQcauitlIKPEFDKVBVSP3354-43-56 18:25:00 Test Item Value Reference Range Interpretation Comments BUN (test code = BUN) 24 7-22 [facility] HospitalBbaumyrXVBIHADSYGRL5850-32-70 18:25:00 Test Item Value Reference Range Interpretation Comments Glucose Lvl (test code = Glucose Lvl) 108 70-99 [facility] HospitalMucmfgwWHWCGOBLRZJE3390-04-24 18:25:00 Test Item Value Reference Range Interpretation Comments AGAP (test code = AGAP) 11.4 10.0-20.0 [facility] LakeRmoeilaFZIGRLGENG5440-05-64 18:25:00 Test Item Value Reference Range Interpretation Comments INR (test code = INR) 1.10 0.85-1.17 [facility] LakeHbzgipoELUCRPREIH4496-65-95 18:25:00 Test Item Value Reference Range Interpretation Comments PT (test code = PT) 14.4 s 12.0-14.7 [facility] LakeVtezmbeFCNQTKWFFS2730-06-26 18:25:00 Test Item Value Reference Range Interpretation Comments PTT (test code = PTT) 30.3 s 22.9-35.8 [facility] LakeJskhixpFWPAFDWDTP3134-86-49 18:25:00 Test Item Value Reference Range Interpretation Comments Hgb (test code = Hgb) 13.1 12.0-16.0 [facility] LakeYtqfxplPZFTLDWROJ1326-40-35 18:25:00 Test Item Value Reference Range Interpretation Comments RBC (test code = RBC) 4.51 4.20-5.40 [facility] LakeJeggijkRMZTAYHVXI1173-10-83 18:25:00 Test Item Value Reference Range Interpretation Comments WBC (test code = WBC) 5.4 3.7-10.4 [facility] LakeWyjmgdjKUFSDWJYXD9532-30-30 18:25:00 Test Item Value Reference Range Interpretation Comments MPV (test code = MPV) 7.2 7.4-10.4 [facility] LakeEbfoxmqHHTCBOWVNY0262-10-76 18:25:00 Test Item Value Reference Range Interpretation Comments MCHC (test code = MCHC) 33.0 32.0-36.0 [facility] LakeFvucojfSVDLHPZTFF3784-40-57 18:25:00 Test Item Value Reference Range Interpretation Comments RDW (test code = RDW) 14.0 11.5-14.5 [facility] LakeToplklbHAFWQKFSOU0944-50-69 18:25:00 Test Item Value Reference Range Interpretation Comments Platelet (test code = Platelet) 278 133-450 [facility] LakeZwwrlrqGTTYDAKBUA3494-71-99 18:25:00 Test Item Value Reference Range Interpretation Comments MCH (test code = MCH) 29.0 pg 27.0-31.0 [facility] LakeHszcbbgWIOKNFCXRG2822-01-03 18:25:00 Test Item Value Reference Range Interpretation Comments MCV (test code = MCV) 87.9 80.0-98.0 [facility] LakeRikkenoNGGPQKLTWU9599-13-66 18:25:00 Test Item Value Reference Range Interpretation Comments Hct (test code = Hct) 39.7 36.0-48.0 [facility] LakeWzfabjqUJYCBJEKVN2813-21-01 18:25:00 Test Item Value Reference Range Interpretation Comments Eosinophils (test code = 2.2 See_Comment [A utomated message] The Eosinophils) system which ge nerated this result tra nsmitted reference range : <=4.0. The reference r robbie was not used to int erpret this result as normal/abnormal . [facility] LakeTuxjxlpRQUJHGWMES9108-08-33 18:25:00 Test Item Value Reference Range Interpretation Comments Segs-Bands # (test code = Segs-Bands #) 2.8 1.5-8.1 [facility] LakeZmpkpoaEEBLQDTCDF5796-72-53 18:25:00 Test Item Value Reference Range Interpretation Comments Basophils (test code = 0.9 See_Comment [Aut omated message] The Basophils) system which ge nerated this result tra nsmitted reference range : <=1.0. The reference r robbie was not used to int erpret this result as normal/abnormal . [facility] LakeQolwayyBJTRHRSVLN0094-15-12 18:25:00 Test Item Value Reference Range Interpretation Comments Lymphocytes # (test code = Lymphocytes 2.1 1.0-5.5 #) [facility] LakeOnbcjiaGMLYEDPKUA8614-48-25 18:25:00 Test Item Value Reference Range Interpretation Comments Segs (test code = Segs) 52.3 45.0-75.0 [facility] LakeReuxkrbBULWWKQBVP4773-92-91 18:25:00 Test Item Value Reference Range Interpretation Comments Lymphocytes (test code = Lymphocytes) 38.0 20.0-40.0 [facility] LakeAmcwepdZAWDBYRAFB4688-57-19 18:25:00 Test Item Value Reference Range Interpretation Comments Monocytes (test code = Monocytes) 6.6 2.0-12.0 [facility] LakeVairevlDYXZYWDYQZ9691-90-91 18:25:00 Test Item Value Reference Range Interpretation Comments Basophils # (test code 0.1 See_Comment [Aut omated message] The = Basophils #) system which generated this result tra nsmitted reference range : <=0.2. The reference r robbie was not used to int erpret this result as normal/abnormal . [facility] LakeZynvsqtKDDWHPGFOI0494-34-32 18:25:00 Test Item Value Reference Range Interpretation Comments Eosinophils # (test code 0.1 See_Comment [A utomated message] The = Eosinophils #) system whic h generated this result tra nsmitted reference range : <=0.5. The reference r robbie was not used to int erpret this result as normal/abnormal . [facility] LakeNsjwdncGJKAIOZUHQ8461-29-30 18:25:00 Test Item Value Reference Range Interpretation Comments Monocytes # (test code 0.4 See_Comment [Aut omated message] The = Monocytes #) system which generated this result tra nsmitted reference range : <=0.8. The reference r robbie was not used to int erpret this result as normal/abnormal . [facility] [id number] 18:25:00 Test Item Value Reference Range Interpretation Comments ABO/Rh (test code = ABO/Rh) O POS [facility] [id number] 18:25:00 Test Item Value Reference Range Interpretation Comments Antibody Scrn (test Negative (10/28/16 12:25 code = Antibody Scrn) PM) [facility] [id number] 18:25:00 Test Item Value Reference Range Interpretation Comments Magnesium Lvl (test code = Magnesium 1.9 1.8-2.4 Lvl) [facility] HospitalDiykezySVHATRTNEVPW1312-67-01 18:25:00 Test Item Value Reference Range Interpretation Comments Potassium Lvl (test code = Potassium 4.4 3.5-5.1 Lvl) [facility] HospitalRzzrzesQPVODOEDXJDS8238-23-32 18:25:00 Test Item Value Reference Range Interpretation Comments Calcium Lvl (test code = Calcium Lvl) 9.4 8.5-10.5 [facility] HospitalCxqkryrWEEDTKVKNTXC9558-67-36 18:25:00 Test Item Value Reference Range Interpretation Comments CO2 (test code = CO2) 31 24-32 [facility] HospitalPywbfvnNWYDUGTWOXBB6086-72-38 18:25:00 Test Item Value Reference Range Interpretation Comments Chloride Lvl (test code = Chloride Lvl) 103 95-109 [facility] HospitalGyyvpjpTLZKYMIUOAZU3866-25-95 18:25:00 Test Item Value Reference Range Interpretation Comments eGFR (test code = eGFR) 55 [facility] HospitalWujzlriHYVXEKFLRAXR9213-11-31 18:25:00 Test Item Value Reference Range Interpretation Comments Sodium Lvl (test code = Sodium Lvl) 141 135-145 [facility] HospitalVdwbadfMSGRZCKYIFIB0100-36-40 18:25:00 Test Item Value Reference Range Interpretation Comments Creatinine Lvl (test code = Creatinine 0.97 0.50-1.40 Lvl) [facility] HospitalLivkjhbRMQTTNOKPYQF5917-34-41 18:25:00 Test Item Value Reference Range Interpretation Comments BUN (test code = BUN) 24 7-22 [facility] HospitalUetskirCWKGVYXFHUZM9578-05-29 18:25:00 Test Item Value Reference Range Interpretation Comments Glucose Lvl (test code = Glucose Lvl) 108 70-99 [facility] HospitalMckztztCMCKNYJQJGAY6787-68-92 18:25:00 Test Item Value Reference Range Interpretation Comments AGAP (test code = AGAP) 11.4 10.0-20.0 [facility] LakeAalnfcdJCKLTUQQTI0031-37-84 18:25:00 Test Item Value Reference Range Interpretation Comments INR (test code = INR) 1.10 0.85-1.17 [facility] LakeBvbljdyJJVZRSTOBD9417-41-37 18:25:00 Test Item Value Reference Range Interpretation Comments PT (test code = PT) 14.4 s 12.0-14.7 [facility] LakeMiynsdmWGHLZTWNGJ7903-83-09 18:25:00 Test Item Value Reference Range Interpretation Comments PTT (test code = PTT) 30.3 s 22.9-35.8 [facility] LakeQunqvbhTWLVMHITYO9493-82-84 18:25:00 Test Item Value Reference Range Interpretation Comments Hgb (test code = Hgb) 13.1 12.0-16.0 [place] [address]-03-06 18:25:00 Test Item Value Reference Range Interpretation Comments RBC (test code = RBC) 4.51 4.20-5.40 [facility] LakeTfrddsnQHGJJIASIJ1565-23-57 18:25:00 Test Item Value Reference Range Interpretation Comments WBC (test code = WBC) 5.4 3.7-10.4 [facility] LakeDyvdblfLKJOWLOXMW5507-56-41 18:25:00 Test Item Value Reference Range Interpretation Comments MPV (test code = MPV) 7.2 7.4-10.4 [facility] LakeKwokofeDWEUDPWNZH9370-82-27 18:25:00 Test Item Value Reference Range Interpretation Comments MCHC (test code = MCHC) 33.0 32.0-36.0 [facility] LakeGkgnkodYMPSCDAVCI2982-46-32 18:25:00 Test Item Value Reference Range Interpretation Comments RDW (test code = RDW) 14.0 11.5-14.5 [facility] LakeNhhjtcwOJHBFEFYZS1620-27-54 18:25:00 Test Item Value Reference Range Interpretation Comments Platelet (test code = Platelet) 278 133-450 [facility] LakeUwpwcdrCEXIEEATSP5936-35-79 18:25:00 Test Item Value Reference Range Interpretation Comments MCH (test code = MCH) 29.0 pg 27.0-31.0 [facility] LakeBxnyqyuAGOUUAWGDE0177-12-17 18:25:00 Test Item Value Reference Range Interpretation Comments MCV (test code = MCV) 87.9 80.0-98.0 [facility] LakeArbimepTDDVPCPWZD6900-75-10 18:25:00 Test Item Value Reference Range Interpretation Comments Hct (test code = Hct) 39.7 36.0-48.0 [facility] LakeJlvudopNVLINELKGJ7775-07-22 18:25:00 Test Item Value Reference Range Interpretation Comments Eosinophils (test code = 2.2 See_Comment [A utomated message] The Eosinophils) system which ge nerated this result tra nsmitted reference range : <=4.0. The reference r robbie was not used to int erpret this result as normal/abnormal . [facility] LakeXxfdcwaUJECWPGVKB3752-53-41 18:25:00 Test Item Value Reference Range Interpretation Comments Segs-Bands # (test code = Segs-Bands #) 2.8 1.5-8.1 [facility] LakeMrozhqjQEIVIWGOHS7946-94-04 18:25:00 Test Item Value Reference Range Interpretation Comments Basophils (test code = 0.9 See_Comment [Aut omated message] The Basophils) system which ge nerated this result tra nsmitted reference range : <=1.0. The reference r robbie was not used to int erpret this result as normal/abnormal . [facility] LakeOwpqykoOTWRHFVEXF2020-90-84 18:25:00 Test Item Value Reference Range Interpretation Comments Lymphocytes # (test code = Lymphocytes 2.1 1.0-5.5 #) [facility] LakeXcyblanSFCJAYVFYN7511-78-37 18:25:00 Test Item Value Reference Range Interpretation Comments Segs (test code = Segs) 52.3 45.0-75.0 [facility] LakeHrscefrWSBSRFQHVN2846-94-77 18:25:00 Test Item Value Reference Range Interpretation Comments Lymphocytes (test code = Lymphocytes) 38.0 20.0-40.0 [facility] LakeCarkosuVUYBSVRWYA9212-59-14 18:25:00 Test Item Value Reference Range Interpretation Comments Monocytes (test code = Monocytes) 6.6 2.0-12.0 [facility] LakeLzhktshOSJEUCWJZW0929-90-14 18:25:00 Test Item Value Reference Range Interpretation Comments Basophils # (test code 0.1 See_Comment [Aut omated message] The = Basophils #) system which generated this result tra nsmitted reference range : <=0.2. The reference r robbie was not used to int erpret this result as normal/abnormal . [facility] LakeNxhnesrHGYCYIKPGN6347-71-91 18:25:00 Test Item Value Reference Range Interpretation Comments Eosinophils # (test code 0.1 See_Comment [A utomated message] The = Eosinophils #) system whic h generated this result tra nsmitted reference range : <=0.5. The reference r robbie was not used to int erpret this result as normal/abnormal . [facility] LakeNxhrsiwPKUZWWCIRT4087-76-48 18:25:00 Test Item Value Reference Range Interpretation Comments Monocytes # (test code 0.4 See_Comment [Aut omated message] The = Monocytes #) system which generated this result tra nsmitted reference range : <=0.8. The reference r robbie was not used to int erpret this result as normal/abnormal . [facility]NON[facility] GLBJLOZ3888-87-19 18:25:00 Test Item Value Reference Range Interpretation Comments ABO/Rh (test code = ABO/Rh) O POS [facility] CenterNON[facility] JQTXRHY7307-17-91 18:25:00 Test Item Value Reference Range Interpretation Comments Antibody Scrn (test Negative (10/28/16 12:25 code = Antibody Scrn) PM) [facility] CenterNONOCHEM [id number] 18:25:00 Test Item Value Reference Range Interpretation Comments Magnesium Lvl (test code = Magnesium 1.9 1.8-2.4 Lvl) [facility] HospitalUnwcbppFEESSALTNBJU3780-04-37 18:25:00 Test Item Value Reference Range Interpretation Comments Potassium Lvl (test code = Potassium 4.4 3.5-5.1 Lvl) [facility]OaubkrfTWUWUETAUWQC1057-12-03 18:25:00 Test Item Value Reference Range Interpretation Comments Calcium Lvl (test code = Calcium Lvl) 9.4 8.5-10.5 [facility] CenterZcqplygMMVVKOWMARWA5952-15-57 18:25:00 Test Item Value Reference Range Interpretation Comments CO2 (test code = CO2) 31 24-32 [facility] HospitalKqehauaTWDJZCZRUEKL4610-75-26 18:25:00 Test Item Value Reference Range Interpretation Comments Chloride Lvl (test code = Chloride Lvl) 103 95-109 [facility] CentralYlknueoRDOOZWKEMVIK0682-29-30 18:25:00 Test Item Value Reference Range Interpretation Comments eGFR (test code = eGFR) 55 [facility] HospitalVqwgnsvAWZSHESYWHIE4088-67-42 18:25:00 Test Item Value Reference Range Interpretation Comments Sodium Lvl (test code = Sodium Lvl) 141 135-145 [facility] HospitalShvzlznYUZMAZEKODSG6447-75-48 18:25:00 Test Item Value Reference Range Interpretation Comments Creatinine Lvl (test code = Creatinine 0.97 0.50-1.40 Lvl) [facility] HospitalGwfboxlUXLDRVCPWFWV1470-27-70 18:25:00 Test Item Value Reference Range Interpretation Comments BUN (test code = BUN) 24 7-22 [facility] HospitalKsrasdnTICCOTOBROAD0606-11-69 18:25:00 Test Item Value Reference Range Interpretation Comments Glucose Lvl (test code = Glucose Lvl) 108 70-99 [facility] CenterYntzirrFBPTMCPWBCTL8789-28-68 18:25:00 Test Item Value Reference Range Interpretation Comments AGAP (test code = AGAP) 11.4 10.0-20.0 [facility] LakeMhwohysRXPASQNXSU2990-73-92 18:25:00 Test Item Value Reference Range Interpretation Comments INR (test code = INR) 1.10 0.85-1.17 [facility] LakePebysedJEYDXTZPMC2335-81-62 18:25:00 Test Item Value Reference Range Interpretation Comments PT (test code = PT) 14.4 s 12.0-14.7 [facility] LakeEjxpcejVFDLJFERON4555-43-14 18:25:00 Test Item Value Reference Range Interpretation Comments PTT (test code = PTT) 30.3 s 22.9-35.8 [facility] LakeBsgjihmOKCCMSDWEL2533-83-71 18:25:00 Test Item Value Reference Range Interpretation Comments Hgb (test code = Hgb) 13.1 12.0-16.0 [facility] LakeUztsncnYWAJGSWNJK8146-87-16 18:25:00 Test Item Value Reference Range Interpretation Comments RBC (test code = RBC) 4.51 4.20-5.40 [facility] LakeDkgilpyUWXKZURUIE9575-80-31 18:25:00 Test Item Value Reference Range Interpretation Comments WBC (test code = WBC) 5.4 3.7-10.4 [facility] LakeMzgbryfRQIIXRTAHT0637-96-42 18:25:00 Test Item Value Reference Range Interpretation Comments MPV (test code = MPV) 7.2 7.4-10.4 [facility] LakeSiuzseuCWZCOUZUHW3013-29-26 18:25:00 Test Item Value Reference Range Interpretation Comments MCHC (test code = MCHC) 33.0 32.0-36.0 [facility] LakeDympiupABWSWZTVUW9695-24-86 18:25:00 Test Item Value Reference Range Interpretation Comments RDW (test code = RDW) 14.0 11.5-14.5 [facility] LakeQudavrfEBRZGGYMKY2971-80-00 18:25:00 Test Item Value Reference Range Interpretation Comments Platelet (test code = Platelet) 278 133-450 [facility] LakeKnupwuzRRYLMKRPZV7740-58-92 18:25:00 Test Item Value Reference Range Interpretation Comments MCH (test code = MCH) 29.0 pg 27.0-31.0 [facility] LakeZdezihsUKRCPOVELF3942-79-58 18:25:00 Test Item Value Reference Range Interpretation Comments MCV (test code = MCV) 87.9 80.0-98.0 [facility] LakeJopilmbBQHRGTCFKH4742-33-38 18:25:00 Test Item Value Reference Range Interpretation Comments Hct (test code = Hct) 39.7 36.0-48.0 [facility] LakeAxvzsucIBNJUUYHFY0586-97-28 18:25:00 Test Item Value Reference Range Interpretation Comments Eosinophils (test code = 2.2 See_Comment [A utomated message] The Eosinophils) system which ge nerated this result tra nsmitted reference range : <=4.0. The reference r robbie was not used to int erpret this result as normal/abnormal . [facility] LakeKqmepqkKQAJTDJUEW9358-11-54 18:25:00 Test Item Value Reference Range Interpretation Comments Segs-Bands # (test code = Segs-Bands #) 2.8 1.5-8.1 [facility] LakeQwhxnuiOEBGADCECS7489-41-76 18:25:00 Test Item Value Reference Range Interpretation Comments Basophils (test code = 0.9 See_Comment [Aut omated message] The Basophils) system which ge nerated this result tra nsmitted reference range : <=1.0. The reference r robbie was not used to int erpret this result as normal/abnormal . [facility] LakeGfdaykyEGCDARGNQL8396-14-79 18:25:00 Test Item Value Reference Range Interpretation Comments Lymphocytes # (test code = Lymphocytes 2.1 1.0-5.5 #) [facility] LakeCeyyxfeADBSTFJMBH6020-24-33 18:25:00 Test Item Value Reference Range Interpretation Comments Segs (test code = Segs) 52.3 45.0-75.0 [facility] LakeZzhlxxzDEZIKBKXGV5428-49-10 18:25:00 Test Item Value Reference Range Interpretation Comments Lymphocytes (test code = Lymphocytes) 38.0 20.0-40.0 [facility] LakeHjmporeSXOSAEXUTW4959-65-46 18:25:00 Test Item Value Reference Range Interpretation Comments Monocytes (test code = Monocytes) 6.6 2.0-12.0 [facility] LakeRdrraxgQIPSQXSSXV5469-92-43 18:25:00 Test Item Value Reference Range Interpretation Comments Basophils # (test code 0.1 See_Comment [Aut omated message] The = Basophils #) system which generated this result tra nsmitted reference range : <=0.2. The reference r robbie was not used to int erpret this result as normal/abnormal . [facility] LakeNvghrvsYKKMEUQDXJ3278-85-33 18:25:00 Test Item Value Reference Range Interpretation Comments Eosinophils # (test code 0.1 See_Comment [A utomated message] The = Eosinophils #) system whic h generated this result tra nsmitted reference range : <=0.5. The reference r robbie was not used to int erpret this result as normal/abnormal . [facility] LakeUyfslhoEMRXWJQVIU9911-32-61 18:25:00 Test Item Value Reference Range Interpretation Comments Monocytes # (test code 0.4 See_Comment [Aut omated message] The = Monocytes #) system which generated this result tra nsmitted reference range : <=0.8. The reference r robbie was not used to int erpret this result as normal/abnormal . [facility] CenterRezdy DVKTKWE4548-47-33 18:25:00 Test Item Value Reference Range Interpretation Comments ABO/Rh (test code = ABO/Rh) O POS [facility] UEBDMCV6461-28-50 18:25:00 Test Item Value Reference Range Interpretation Comments Antibody Scrn (test Negative (10/28/16 12:25 code = Antibody Scrn) PM) [facility]CHE[facility] [id number] 18:25:00 Test Item Value Reference Range Interpretation Comments Magnesium Lvl (test code = Magnesium 1.9 1.8-2.4 Lvl) [facility] HospitalFbjseotOKPBFQUJGMFO0317-57-91 18:25:00 Test Item Value Reference Range Interpretation Comments Potassium Lvl (test code = Potassium 4.4 3.5-5.1 Lvl) [facility]BfifakvULCHWQLGCWDU6948-09-81 18:25:00 Test Item Value Reference Range Interpretation Comments Calcium Lvl (test code = Calcium Lvl) 9.4 8.5-10.5 [facility] HospitalDyzseunTDDSZYRIYDNP1389-49-89 18:25:00 Test Item Value Reference Range Interpretation Comments CO2 (test code = CO2) 31 24-32 [facility] HospitalQpjjsggUQCYVPPVCMBS8893-38-70 18:25:00 Test Item Value Reference Range Interpretation Comments Chloride Lvl (test code = Chloride Lvl) 103 95-109 [facility] HospitalUctxbsuVZRRKEMZSYID7637-56-96 18:25:00 Test Item Value Reference Range Interpretation Comments eGFR (test code = eGFR) 55 [facility] HospitalHebikfoIXDNDSMMZBET1479-93-15 18:25:00 Test Item Value Reference Range Interpretation Comments Sodium Lvl (test code = Sodium Lvl) 141 135-145 [facility] HospitalWbayvkvXIPXSNCWUMDW3619-00-16 18:25:00 Test Item Value Reference Range Interpretation Comments Creatinine Lvl (test code = Creatinine 0.97 0.50-1.40 Lvl) [facility] HospitalPjxhbzqDYHIHILXKLHB4024-62-38 18:25:00 Test Item Value Reference Range Interpretation Comments BUN (test code = BUN) 24 7-22 [facility] HospitalQodrlkdHGVMYURHOJBT6268-94-19 18:25:00 Test Item Value Reference Range Interpretation Comments Glucose Lvl (test code = Glucose Lvl) 108 70-99 [facility] HospitalDsgisgjDIQYPYQEMDOQ3961-12-80 18:25:00 Test Item Value Reference Range Interpretation Comments AGAP (test code = AGAP) 11.4 10.0-20.0 [facility] LakeVlkjhmpODRTKPWSZT6370-66-21 18:25:00 Test Item Value Reference Range Interpretation Comments INR (test code = INR) 1.10 0.85-1.17 [facility] LakeSahtbymGKPBPRTNAE7552-05-09 18:25:00 Test Item Value Reference Range Interpretation Comments PT (test code = PT) 14.4 s 12.0-14.7 [facility] LakePkozkaoPMQAGAEZSQ4423-89-21 18:25:00 Test Item Value Reference Range Interpretation Comments PTT (test code = PTT) 30.3 s 22.9-35.8 [facility] LakeDhwvgqfPZXDZBEKOA4777-51-10 18:25:00 Test Item Value Reference Range Interpretation Comments Hgb (test code = Hgb) 13.1 12.0-16.0 [facility] LakeSmhexhxZNBMMXSINU2421-77-80 18:25:00 Test Item Value Reference Range Interpretation Comments RBC (test code = RBC) 4.51 4.20-5.40 [facility] LakeHztwbabFZNKOFNWZK3612-92-85 18:25:00 Test Item Value Reference Range Interpretation Comments WBC (test code = WBC) 5.4 3.7-10.4 [facility] LakeKkepnmrNEMGFKAIKC4697-39-28 18:25:00 Test Item Value Reference Range Interpretation Comments MPV (test code = MPV) 7.2 7.4-10.4 [facility] LakeLmfnostUIKOJPKDJZ2677-24-91 18:25:00 Test Item Value Reference Range Interpretation Comments MCHC (test code = MCHC) 33.0 32.0-36.0 [facility] LakeQxuoqbmMRDLBLNUAK7451-75-95 18:25:00 Test Item Value Reference Range Interpretation Comments RDW (test code = RDW) 14.0 11.5-14.5 [facility] LakeYkfejkjCXHLHTNWPK7792-18-10 18:25:00 Test Item Value Reference Range Interpretation Comments Platelet (test code = Platelet) 278 133-450 [facility] LakeNnxxpmhQYPQAOBWUE3829-33-42 18:25:00 Test Item Value Reference Range Interpretation Comments MCH (test code = MCH) 29.0 pg 27.0-31.0 [facility] LakeWgxcmyeOPEGSQSGLW0275-51-27 18:25:00 Test Item Value Reference Range Interpretation Comments MCV (test code = MCV) 87.9 80.0-98.0 [facility] LakeDbhcabuMVVNAGMWYU2448-28-23 18:25:00 Test Item Value Reference Range Interpretation Comments Hct (test code = Hct) 39.7 36.0-48.0 [facility] LakeZtadlfnDAHSPLDNBN5084-01-89 18:25:00 Test Item Value Reference Range Interpretation Comments Eosinophils (test code = 2.2 See_Comment [A utomated message] The Eosinophils) system which ge nerated this result tra nsmitted reference range : <=4.0. The reference r robbie was not used to int erpret this result as normal/abnormal . [facility] LakeFhrcfivSNRTGLBSIP8526-17-18 18:25:00 Test Item Value Reference Range Interpretation Comments Segs-Bands # (test code = Segs-Bands #) 2.8 1.5-8.1 [facility] LakeLwidztaZQXKSUELKE5497-60-27 18:25:00 Test Item Value Reference Range Interpretation Comments Basophils (test code = 0.9 See_Comment [Aut omated message] The Basophils) system which ge nerated this result tra nsmitted reference range : <=1.0. The reference r robbie was not used to int erpret this result as normal/abnormal . [facility] LakeEeomoydLHZCYDEOFE3421-89-98 18:25:00 Test Item Value Reference Range Interpretation Comments Lymphocytes # (test code = Lymphocytes 2.1 1.0-5.5 #) [facility] LakeLqgrlqrCANMCCSWSB1635-62-06 18:25:00 Test Item Value Reference Range Interpretation Comments Segs (test code = Segs) 52.3 45.0-75.0 [facility] LakePrpqlggBURRIXKPRQ8722-05-73 18:25:00 Test Item Value Reference Range Interpretation Comments Lymphocytes (test code = Lymphocytes) 38.0 20.0-40.0 [facility] LakeNtvtwmoRWPWJMADRQ1264-65-87 18:25:00 Test Item Value Reference Range Interpretation Comments Monocytes (test code = Monocytes) 6.6 2.0-12.0 [facility] LakeLzqticeXOBUPPMPSN1369-27-32 18:25:00 Test Item Value Reference Range Interpretation Comments Basophils # (test code 0.1 See_Comment [Aut omated message] The = Basophils #) system which generated this result tra nsmitted reference range : <=0.2. The reference r robbie was not used to int erpret this result as normal/abnormal . [facility] LakeOmuzahvOQMXIUVUDI2320-94-21 18:25:00 Test Item Value Reference Range Interpretation Comments Eosinophils # (test code 0.1 See_Comment [A utomated message] The = Eosinophils #) system whic h generated this result tra nsmitted reference range : <=0.5. The reference r robbie was not used to int erpret this result as normal/abnormal . [facility] LakeWqqgfydUJVLAVRLLT9578-96-95 18:25:00 Test Item Value Reference Range Interpretation Comments Monocytes # (test code 0.4 See_Comment [Aut omated message] The = Monocytes #) system which generated this result tra nsmitted reference range : <=0.8. The reference r robbie was not used to int erpret this result as normal/abnormal . [facility] DVBRI0317[facility]24 08:58:00 Test Item Value Reference Range Interpretation Comments Phosphorus (test code = Phosphorus) 2.9 2.5-4.5 [facility] IXVLU9997-66-65 08:58:00 Test Item Value Reference Range Interpretation Comments Magnesium Lvl (test code = Magnesium 2.4 1.8-2.4 Lvl) [facility]bnqkrZYGYYTBDNKVQ4902-63-05 08:58:00 Test Item Value Reference Range Interpretation Comments Sodium Lvl (test code = Sodium Lvl) 139 135-145 [facility] HospitalDrtpzcsEOKVFLDUMNJP5294-50-63 08:58:00 Test Item Value Reference Range Interpretation Comments Creatinine Lvl (test code = Creatinine 1.14 0.50-1.40 Lvl) [facility] HospitalMrohzloSRPJKRVBFXQP3553-59-14 08:58:00 Test Item Value Reference Range Interpretation Comments Chloride Lvl (test code = Chloride Lvl) 104 95-109 [facility] HospitalKcstolnKZQDQJDJOKQC4115-68-66 08:58:00 Test Item Value Reference Range Interpretation Comments CO2 (test code = CO2) 28 24-32 [facility] HospitalGgthasiLTZGACEQSXVT3912-93-18 08:58:00 Test Item Value Reference Range Interpretation Comments Calcium Lvl (test code = Calcium Lvl) 8.7 8.5-10.5 [facility] HospitalAhtcdxzXLBCTSAANANC0438-78-70 08:58:00 Test Item Value Reference Range Interpretation Comments Potassium Lvl (test code = Potassium 4.8 3.5-5.1 Lvl) [facility] HospitalPugltjiKAHASXQPYDMS2025-35-72 08:58:00 Test Item Value Reference Range Interpretation Comments AGAP (test code = AGAP) 11.8 10.0-20.0 [facility] HospitalUuhktmkHIQAQVBUETZT0295-18-80 08:58:00 Test Item Value Reference Range Interpretation Comments eGFR (test code = eGFR) 45 [facility] HospitalBfmnkddCEKVCCIXUXQO6589-04-26 08:58:00 Test Item Value Reference Range Interpretation Comments BUN (test code = BUN) 25 7-22 [facility] HospitalPrxurnvIUYKRQSRAJQT9789-63-43 08:58:00 Test Item Value Reference Range Interpretation Comments Glucose Lvl (test code = Glucose Lvl) 113 70-99 [facility] LakeInjcuakJESCFBQFFZ2639-27-16 08:58:00 Test Item Value Reference Range Interpretation Comments MPV (test code = MPV) 7.8 7.4-10.4 [facility] LakeVhwkxjuJWKBZWHHAF2428-47-27 08:58:00 Test Item Value Reference Range Interpretation Comments Platelet (test code = Platelet) 301 133-450 [facility] LakeBrdwltyIEJSZJZVBA7631-94-88 08:58:00 Test Item Value Reference Range Interpretation Comments RDW (test code = RDW) 14.1 11.5-14.5 [facility] LakeUjilehwTGEULEDFZY5169-98-90 08:58:00 Test Item Value Reference Range Interpretation Comments MCH (test code = MCH) 29.9 pg 27.0-31.0 [facility] LakeEgaxskvJBEZHTEKCC9213-89-57 08:58:00 Test Item Value Reference Range Interpretation Comments MCV (test code = MCV) 89.6 80.0-98.0 [facility] LakeFjtliosOXRIDUCCGP4780-16-55 08:58:00 Test Item Value Reference Range Interpretation Comments MCHC (test code = MCHC) 33.4 32.0-36.0 [facility] LakeIbrsdyxCJKGJIBWDD4965-61-36 08:58:00 Test Item Value Reference Range Interpretation Comments Hct (test code = Hct) 34.3 36.0-48.0 [facility] LakeEutmdqfLCZZVSRXRC6021-27-82 08:58:00 Test Item Value Reference Range Interpretation Comments Hgb (test code = Hgb) 11.5 12.0-16.0 [facility] LakeQsoybjvAIIKLFRSFO6363-64-30 08:58:00 Test Item Value Reference Range Interpretation Comments RBC (test code = RBC) 3.83 4.20-5.40 [facility] LakeGoiupoxUNQBTGKEXX0195-69-57 08:58:00 Test Item Value Reference Range Interpretation Comments WBC (test code = WBC) 8.2 3.7-10.4 [facility] LakeVqsahvaRXAGWDGMLY4448-07-10 08:58:00 Test Item Value Reference Range Interpretation Comments Lymphocytes # (test code = Lymphocytes 1.9 1.0-5.5 #) [facility] LakeOobnqigSZFWMWCDFF9807-88-54 08:58:00 Test Item Value Reference Range Interpretation Comments Segs-Bands # (test code = Segs-Bands #) 5.5 1.5-8.1 [facility] LakeXpoahvfUGBYJLHIFS0926-42-05 08:58:00 Test Item Value Reference Range Interpretation Comments Eosinophils (test code = 1.4 See_Comment [A utomated message] The Eosinophils) system which ge nerated this result tra nsmitted reference range : <=4.0. The reference r robbie was not used to int erpret this result as normal/abnormal . [facility] LakeUnftjhkXFMXZUILKN6926-80-06 08:58:00 Test Item Value Reference Range Interpretation Comments Basophils (test code = 0.5 See_Comment [Aut omated message] The Basophils) system which ge nerated this result tra nsmitted reference range : <=1.0. The reference r robbie was not used to int erpret this result as normal/abnormal . [facility] LakeViyjvouUQYXYHHSCE4248-10-28 08:58:00 Test Item Value Reference Range Interpretation Comments Monocytes (test code = Monocytes) 9.1 2.0-12.0 [facility] LakeWtksqwxHQLTWSJVGX2031-88-09 08:58:00 Test Item Value Reference Range Interpretation Comments Segs (test code = Segs) 66.2 45.0-75.0 [facility] LakeHzempggUQCQLQCYBE2480-97-19 08:58:00 Test Item Value Reference Range Interpretation Comments Lymphocytes (test code = Lymphocytes) 22.8 20.0-40.0 [facility] LakeYtsifjpXOXZBHFKHS8595-29-04 08:58:00 Test Item Value Reference Range Interpretation Comments Eosinophils # (test code 0.1 See_Comment [A utomated message] The = Eosinophils #) system whic h generated this result tra nsmitted reference range : <=0.5. The reference r robbie was not used to int erpret this result as normal/abnormal . [facility] LakeDegylomEHRDEFAGGK9880-82-10 08:58:00 Test Item Value Reference Range Interpretation Comments Monocytes # (test code 0.7 See_Comment [Aut omated message] The = Monocytes #) system which generated this result tra nsmitted reference range : <=0.8. The reference r robbie was not used to int erpret this result as normal/abnormal . [facility] LHEDJ7713-98-32 08:58:00 Test Item Value Reference Range Interpretation Comments Phosphorus (test code = Phosphorus) 2.9 2.5-4.5 [facility] XQKIY6384-73-68 08:58:00 Test Item Value Reference Range Interpretation Comments Magnesium Lvl (test code = Magnesium 2.4 1.8-2.4 Lvl) [facility] HospitalIwvizxeEMOBVRBICDAH6849-98-60 08:58:00 Test Item Value Reference Range Interpretation Comments Sodium Lvl (test code = Sodium Lvl) 139 135-145 [facility] HospitalXtzyuuqUONHVXPHJAHH9923-14-27 08:58:00 Test Item Value Reference Range Interpretation Comments Creatinine Lvl (test code = Creatinine 1.14 0.50-1.40 Lvl) [facility] HospitalZbgpwjzXYSBJUXORSQZ8314-85-64 08:58:00 Test Item Value Reference Range Interpretation Comments Chloride Lvl (test code = Chloride Lvl) 104 95-109 [facility] HospitalEsajuowSCXUQHGWVWGX7904-00-60 08:58:00 Test Item Value Reference Range Interpretation Comments CO2 (test code = CO2) 28 24-32 [facility] HospitalUagrctuUOGECTBXKUYD6225-67-77 08:58:00 Test Item Value Reference Range Interpretation Comments Calcium Lvl (test code = Calcium Lvl) 8.7 8.5-10.5 [facility] HospitalEaogyvjMXKMRAGGAQFN2082-60-56 08:58:00 Test Item Value Reference Range Interpretation Comments Potassium Lvl (test code = Potassium 4.8 3.5-5.1 Lvl) [facility] HospitalXxwhhnjHFHMNBJYKIDW4282-01-62 08:58:00 Test Item Value Reference Range Interpretation Comments AGAP (test code = AGAP) 11.8 10.0-20.0 [facility] HospitalDyphwcoYWDOJDUJNSMX6324-77-49 08:58:00 Test Item Value Reference Range Interpretation Comments eGFR (test code = eGFR) 45 [facility] HospitalVgknnbvYDDGXDQUXFGG2118-02-38 08:58:00 Test Item Value Reference Range Interpretation Comments BUN (test code = BUN) 25 7-22 [facility] HospitalVfrfvbtHPBFHNCCTMPR4831-42-99 08:58:00 Test Item Value Reference Range Interpretation Comments Glucose Lvl (test code = Glucose Lvl) 113 70-99 [facility] LakeZampbkvMFJKHKGBPQ3060-32-26 08:58:00 Test Item Value Reference Range Interpretation Comments MPV (test code = MPV) 7.8 7.4-10.4 [facility] LakeBvgwmgdWETEDAPUNS3650-95-42 08:58:00 Test Item Value Reference Range Interpretation Comments Platelet (test code = Platelet) 301 133-450 [facility] LakeUklivdfQZTPBLYHJL6565-84-94 08:58:00 Test Item Value Reference Range Interpretation Comments RDW (test code = RDW) 14.1 11.5-14.5 [facility] LakeFrigxsqFNCYXCUYJA8089-35-22 08:58:00 Test Item Value Reference Range Interpretation Comments MCH (test code = MCH) 29.9 pg 27.0-31.0 [facility] LakeSnujxddOPKSANRXWA9012-19-66 08:58:00 Test Item Value Reference Range Interpretation Comments MCV (test code = MCV) 89.6 80.0-98.0 [facility] LakeMrvccmrAPKGXSEQDZ8248-36-54 08:58:00 Test Item Value Reference Range Interpretation Comments MCHC (test code = MCHC) 33.4 32.0-36.0 [facility] LakeUpqtpdtGTCZPDCEAH6230-03-77 08:58:00 Test Item Value Reference Range Interpretation Comments Hct (test code = Hct) 34.3 36.0-48.0 [facility] LakeQrzzxasECSAUXZZDU2453-49-61 08:58:00 Test Item Value Reference Range Interpretation Comments Hgb (test code = Hgb) 11.5 12.0-16.0 [facility] LakeAxatpczVXPCIFRBNA5747-77-30 08:58:00 Test Item Value Reference Range Interpretation Comments RBC (test code = RBC) 3.83 4.20-5.40 [facility] LakeFvnehqsJNZEHKLXDF1093-90-87 08:58:00 Test Item Value Reference Range Interpretation Comments WBC (test code = WBC) 8.2 3.7-10.4 [facility] LakeAmijlkrCFVUGKFFJQ2271-51-55 08:58:00 Test Item Value Reference Range Interpretation Comments Lymphocytes # (test code = Lymphocytes 1.9 1.0-5.5 #) [facility] LakeKmtbafwVXRNRIYVVP0032-06-76 08:58:00 Test Item Value Reference Range Interpretation Comments Segs-Bands # (test code = Segs-Bands #) 5.5 1.5-8.1 [facility] LakeOkmdtqbNLPLKDXBIZ2568-93-65 08:58:00 Test Item Value Reference Range Interpretation Comments Eosinophils (test code = 1.4 See_Comment [A utomated message] The Eosinophils) system which ge nerated this result tra nsmitted reference range : <=4.0. The reference r robbie was not used to int erpret this result as normal/abnormal . [facility] LakeQkrsqpzXOQDNBXOWY1271-24-05 08:58:00 Test Item Value Reference Range Interpretation Comments Basophils (test code = 0.5 See_Comment [Aut omated message] The Basophils) system which ge nerated this result tra nsmitted reference range : <=1.0. The reference r robbie was not used to int erpret this result as normal/abnormal . [facility] LakeYwlxcpqHEDVDQDYMZ3702-98-04 08:58:00 Test Item Value Reference Range Interpretation Comments Monocytes (test code = Monocytes) 9.1 2.0-12.0 [facility] LakeIodbtpcUWXIVFXFMK1152-40-45 08:58:00 Test Item Value Reference Range Interpretation Comments Segs (test code = Segs) 66.2 45.0-75.0 [facility] LakeMyqqxubVROAWKRYJO4021-55-32 08:58:00 Test Item Value Reference Range Interpretation Comments Lymphocytes (test code = Lymphocytes) 22.8 20.0-40.0 [facility] LakeFtnryrwEPNIVOUXUD9841-36-50 08:58:00 Test Item Value Reference Range Interpretation Comments Eosinophils # (test code 0.1 See_Comment [A utomated message] The = Eosinophils #) system whic h generated this result tra nsmitted reference range : <=0.5. The reference r robbie was not used to int erpret this result as normal/abnormal . [facility] LakeRdujqsrBNGXHVVEFI9077-73-48 08:58:00 Test Item Value Reference Range Interpretation Comments Monocytes # (test code 0.7 See_Comment [Aut omated message] The = Monocytes #) system which generated this result tra nsmitted reference range : <=0.8. The reference r robbie was not used to int erpret this result as normal/abnormal . [facility] XSVXU3556-04-78 08:58:00 Test Item Value Reference Range Interpretation Comments Phosphorus (test code = Phosphorus) 2.9 2.5-4.5 [facility] HIFRJ8652-22-16 08:58:00 Test Item Value Reference Range Interpretation Comments Magnesium Lvl (test code = Magnesium 2.4 1.8-2.4 Lvl) [facility] HospitalWpfmkouKXVCYCBBSOKT0280-61-86 08:58:00 Test Item Value Reference Range Interpretation Comments Sodium Lvl (test code = Sodium Lvl) 139 135-145 [facility] HospitalIzzlizxWABOJYRHRCNG9975-09-96 08:58:00 Test Item Value Reference Range Interpretation Comments Creatinine Lvl (test code = Creatinine 1.14 0.50-1.40 Lvl) [facility] HospitalKqkdpvdXJTOWDUJRTNR1477-72-94 08:58:00 Test Item Value Reference Range Interpretation Comments Chloride Lvl (test code = Chloride Lvl) 104 95-109 [facility] HospitalRcmapbcVEBPPHLTQGSN9871-35-59 08:58:00 Test Item Value Reference Range Interpretation Comments CO2 (test code = CO2) 28 24-32 [facility] HospitalXahuzupYSIKOCENUMIH4759-41-43 08:58:00 Test Item Value Reference Range Interpretation Comments Calcium Lvl (test code = Calcium Lvl) 8.7 8.5-10.5 [facility] HospitalTkqxtobFCJJCGENGXJU8816-10-98 08:58:00 Test Item Value Reference Range Interpretation Comments Potassium Lvl (test code = Potassium 4.8 3.5-5.1 Lvl) [facility] HospitalWwulgqiIMPTBRPVZDIH9350-84-96 08:58:00 Test Item Value Reference Range Interpretation Comments AGAP (test code = AGAP) 11.8 10.0-20.0 [facility] HospitalGzgemmvHLRCSIHOCYGP8593-56-23 08:58:00 Test Item Value Reference Range Interpretation Comments eGFR (test code = eGFR) 45 [facility] HospitalKmnikftSMHULWNLVVJF7677-19-68 08:58:00 Test Item Value Reference Range Interpretation Comments BUN (test code = BUN) 25 7-22 [facility] HospitalNcupxatRBVUIWIIFFEE7552-98-79 08:58:00 Test Item Value Reference Range Interpretation Comments Glucose Lvl (test code = Glucose Lvl) 113 70-99 [facility] LakeMnsluoyLMQWTHEQUV2639-62-49 08:58:00 Test Item Value Reference Range Interpretation Comments MPV (test code = MPV) 7.8 7.4-10.4 [facility] LakeLfjtqasFMAYXJGZEQ8151-84-63 08:58:00 Test Item Value Reference Range Interpretation Comments Platelet (test code = Platelet) 301 133-450 [facility] LakeYtcycorHGPJBUXGPM7662-66-39 08:58:00 Test Item Value Reference Range Interpretation Comments RDW (test code = RDW) 14.1 11.5-14.5 [facility] LakeSyirsqrPCZTJZCDFB8478-51-52 08:58:00 Test Item Value Reference Range Interpretation Comments MCH (test code = MCH) 29.9 pg 27.0-31.0 [facility] LakeOefpnvqVXXRMCQODV1933-29-47 08:58:00 Test Item Value Reference Range Interpretation Comments MCV (test code = MCV) 89.6 80.0-98.0 [facility] LakeYffunmuUZADTJPXIF4725-89-20 08:58:00 Test Item Value Reference Range Interpretation Comments MCHC (test code = MCHC) 33.4 32.0-36.0 [facility] LakeLjxodzuJKMMCQOBSS2082-19-98 08:58:00 Test Item Value Reference Range Interpretation Comments Hct (test code = Hct) 34.3 36.0-48.0 [facility] LakeTkquycnPMCTFTDPXX4608-39-37 08:58:00 Test Item Value Reference Range Interpretation Comments Hgb (test code = Hgb) 11.5 12.0-16.0 [facility] LakeVbuuhqmVWXZCNHHXP9140-12-02 08:58:00 Test Item Value Reference Range Interpretation Comments RBC (test code = RBC) 3.83 4.20-5.40 [facility] LakeVhhzbfmRVDMDOIJJA3627-72-32 08:58:00 Test Item Value Reference Range Interpretation Comments WBC (test code = WBC) 8.2 3.7-10.4 [facility] LakeEnfxgxiNAVJHFRXLE1964-66-00 08:58:00 Test Item Value Reference Range Interpretation Comments Lymphocytes # (test code = Lymphocytes 1.9 1.0-5.5 #) [facility] LakePbmyxmxHZFJEMAKJQ4877-49-19 08:58:00 Test Item Value Reference Range Interpretation Comments Segs-Bands # (test code = Segs-Bands #) 5.5 1.5-8.1 [facility] LakeDkdwvraILBLUXEDTF8549-36-71 08:58:00 Test Item Value Reference Range Interpretation Comments Eosinophils (test code = 1.4 See_Comment [A utomated message] The Eosinophils) system which ge nerated this result tra nsmitted reference range : <=4.0. The reference r robbie was not used to int erpret this result as normal/abnormal . [facility] LakeGkjbauhXKKTOWHAZM6156-17-53 08:58:00 Test Item Value Reference Range Interpretation Comments Basophils (test code = 0.5 See_Comment [Aut omated message] The Basophils) system which ge nerated this result tra nsmitted reference range : <=1.0. The reference r robbie was not used to int erpret this result as normal/abnormal . [facility] LakeZaungvdYCYZYSBSFY8971-67-29 08:58:00 Test Item Value Reference Range Interpretation Comments Monocytes (test code = Monocytes) 9.1 2.0-12.0 [facility] LakeIamjoaiGMDIZXONZL9823-07-52 08:58:00 Test Item Value Reference Range Interpretation Comments Segs (test code = Segs) 66.2 45.0-75.0 [facility] LakeVkfmedqQVCVHVTSZY2443-09-71 08:58:00 Test Item Value Reference Range Interpretation Comments Lymphocytes (test code = Lymphocytes) 22.8 20.0-40.0 [facility] LakeDzgbftmOIRATYFGNS1064-91-92 08:58:00 Test Item Value Reference Range Interpretation Comments Eosinophils # (test code 0.1 See_Comment [A utomated message] The = Eosinophils #) system whic h generated this result tra nsmitted reference range : <=0.5. The reference r robbie was not used to int erpret this result as normal/abnormal . [facility] LakeKnjorkrJIUCNOQWXH5725-76-30 08:58:00 Test Item Value Reference Range Interpretation Comments Monocytes # (test code 0.7 See_Comment [Aut omated message] The = Monocytes #) system which generated this result tra nsmitted reference range : <=0.8. The reference r robbie was not used to int erpret this result as normal/abnormal . [facility] LEAUD2699-[facility]28 08:58:00 Test Item Value Reference Range Interpretation Comments Phosphorus (test code = Phosphorus) 2.9 2.5-4.5 [facility] OJJHV6572-44-33 08:58:00 Test Item Value Reference Range Interpretation Comments Magnesium Lvl (test code = Magnesium 2.4 1.8-2.4 Lvl) [facility] HospitalMblzkzsDQYPTZANTARR2161-61-10 08:58:00 Test Item Value Reference Range Interpretation Comments Sodium Lvl (test code = Sodium Lvl) 139 135-145 [facility] HospitalIzrzgxsZZPTGBIPKZIM5928-96-17 08:58:00 Test Item Value Reference Range Interpretation Comments Creatinine Lvl (test code = Creatinine 1.14 0.50-1.40 Lvl) [facility] HospitalRntkmhlHIPZZODPAELJ2302-66-37 08:58:00 Test Item Value Reference Range Interpretation Comments Chloride Lvl (test code = Chloride Lvl) 104 95-109 [facility] HospitalDpknptrUWXUQHYDOGYL6295-00-12 08:58:00 Test Item Value Reference Range Interpretation Comments CO2 (test code = CO2) 28 24-32 [facility] HospitalGdgntlsZPZSARZVAOSJ7178-56-14 08:58:00 Test Item Value Reference Range Interpretation Comments Calcium Lvl (test code = Calcium Lvl) 8.7 8.5-10.5 [facility] HospitalCozzmrnHUEUBJIXFANT3633-95-51 08:58:00 Test Item Value Reference Range Interpretation Comments Potassium Lvl (test code = Potassium 4.8 3.5-5.1 Lvl) [facility] HospitalBwknybgRIQWDTXYQIFN3969-46-82 08:58:00 Test Item Value Reference Range Interpretation Comments AGAP (test code = AGAP) 11.8 10.0-20.0 [facility] HospitalHkpmvdeOGHLMZPDVAMZ9045-64-63 08:58:00 Test Item Value Reference Range Interpretation Comments eGFR (test code = eGFR) 45 [facility] HospitalCcnvgjqOCHWYVHMXTDA4799-71-21 08:58:00 Test Item Value Reference Range Interpretation Comments BUN (test code = BUN) 25 7-22 [facility] HospitalEmnywotRGBYUXCOZPKO2324-79-07 08:58:00 Test Item Value Reference Range Interpretation Comments Glucose Lvl (test code = Glucose Lvl) 113 70-99 [facility] LakeKboajdcKSUCAWEULZ6810-03-61 08:58:00 Test Item Value Reference Range Interpretation Comments MPV (test code = MPV) 7.8 7.4-10.4 [facility] LakeSyyrevyJAVFZXKWDT6021-91-25 08:58:00 Test Item Value Reference Range Interpretation Comments Platelet (test code = Platelet) 301 133-450 [facility] LakeMqvkvcbJSJWMDHDKA3149-90-82 08:58:00 Test Item Value Reference Range Interpretation Comments RDW (test code = RDW) 14.1 11.5-14.5 [facility] LakeVgcqiqeJVZZMCHTYP8174-93-83 08:58:00 Test Item Value Reference Range Interpretation Comments MCH (test code = MCH) 29.9 pg 27.0-31.0 [facility] LakeCuigmqwYWRAKVVYDT2529-28-23 08:58:00 Test Item Value Reference Range Interpretation Comments MCV (test code = MCV) 89.6 80.0-98.0 [facility] LakeLpjkdbhOCMSIIYEZK6543-40-85 08:58:00 Test Item Value Reference Range Interpretation Comments MCHC (test code = MCHC) 33.4 32.0-36.0 [facility] LakeEqoghjlAHEEIHHHPJ8005-77-35 08:58:00 Test Item Value Reference Range Interpretation Comments Hct (test code = Hct) 34.3 36.0-48.0 [facility] LakeMdltpesLLPNMFRCRC0594-90-06 08:58:00 Test Item Value Reference Range Interpretation Comments Hgb (test code = Hgb) 11.5 12.0-16.0 [facility] LakeZyzhpbtKAJEPQCUTQ3000-95-66 08:58:00 Test Item Value Reference Range Interpretation Comments RBC (test code = RBC) 3.83 4.20-5.40 [facility] LakeHkfrkjvTGSMVSIJOR1012-16-92 08:58:00 Test Item Value Reference Range Interpretation Comments WBC (test code = WBC) 8.2 3.7-10.4 [facility] LakeSiejezyCTCPWINITG6738-21-86 08:58:00 Test Item Value Reference Range Interpretation Comments Lymphocytes # (test code = Lymphocytes 1.9 1.0-5.5 #) [facility] LakeGknhnybWMFOIZQJUZ3019-02-13 08:58:00 Test Item Value Reference Range Interpretation Comments Segs-Bands # (test code = Segs-Bands #) 5.5 1.5-8.1 [facility] LakeIwqkkbnUJNWAKVNGH1422-22-11 08:58:00 Test Item Value Reference Range Interpretation Comments Eosinophils (test code = 1.4 See_Comment [A utomated message] The Eosinophils) system which ge nerated this result tra nsmitted reference range : <=4.0. The reference r robbie was not used to int erpret this result as normal/abnormal . [facility] LakePffahzxDEGLETGEIG5028-68-44 08:58:00 Test Item Value Reference Range Interpretation Comments Basophils (test code = 0.5 See_Comment [Aut omated message] The Basophils) system which ge nerated this result tra nsmitted reference range : <=1.0. The reference r robbie was not used to int erpret this result as normal/abnormal . [facility] LakeYnhsoffDRLTXJNTBI3800-46-97 08:58:00 Test Item Value Reference Range Interpretation Comments Monocytes (test code = Monocytes) 9.1 2.0-12.0 [facility] LakePhmnlygJJMWRUZGUH5611-92-95 08:58:00 Test Item Value Reference Range Interpretation Comments Segs (test code = Segs) 66.2 45.0-75.0 [facility] LakeHhyunukOEGOXYOWGR0575-88-47 08:58:00 Test Item Value Reference Range Interpretation Comments Lymphocytes (test code = Lymphocytes) 22.8 20.0-40.0 [facility] LakeLjtpmzkOJNOQVZKQB1577-73-00 08:58:00 Test Item Value Reference Range Interpretation Comments Eosinophils # (test code 0.1 See_Comment [A utomated message] The = Eosinophils #) system whic h generated this result tra nsmitted reference range : <=0.5. The reference r robbie was not used to int erpret this result as normal/abnormal . [facility]CtgsqxeUHKHOMQOGW2816-71-53 08:58:00 Test Item Value Reference Range Interpretation Comments Monocytes # (test code 0.7 See_Comment [Aut omated message] The = Monocytes #) system which generated this result tra nsmitted reference range : <=0.8. The reference r robbie was not used to int erpret this result as normal/abnormal . [facility]CHE[facility] NNUXX0007-74-66 08:58:00 Test Item Value Reference Range Interpretation Comments Phosphorus (test code = Phosphorus) 2.9 2.5-4.5 [facility]CHE[facility] HBYSQ4089-60-68 08:58:00 Test Item Value Reference Range Interpretation Comments Magnesium Lvl (test code = Magnesium 2.4 1.8-2.4 Lvl) [facility] HospitalRwwadzzVZRLHJMWDABU2398-90-21 08:58:00 Test Item Value Reference Range Interpretation Comments Sodium Lvl (test code = Sodium Lvl) 139 135-145 [facility] HospitalCfgajzlVLJPFUKDHHEE5126-57-92 08:58:00 Test Item Value Reference Range Interpretation Comments Creatinine Lvl (test code = Creatinine 1.14 0.50-1.40 Lvl) [facility] HospitalSkgspusNGACTWMNXFVK5801-88-37 08:58:00 Test Item Value Reference Range Interpretation Comments Chloride Lvl (test code = Chloride Lvl) 104 95-109 [facility] HospitalGkijgzuEYSTLEPLDABX2453-07-73 08:58:00 Test Item Value Reference Range Interpretation Comments CO2 (test code = CO2) 28 24-32 [facility] HospitalPqjdnlbATEVKIIZGZGQ3081-77-24 08:58:00 Test Item Value Reference Range Interpretation Comments Calcium Lvl (test code = Calcium Lvl) 8.7 8.5-10.5 [facility] HospitalCoshuxiWFZAQRNDKGQY3882-32-37 08:58:00 Test Item Value Reference Range Interpretation Comments Potassium Lvl (test code = Potassium 4.8 3.5-5.1 Lvl) [facility] HospitalTmvlycqKXGRTGAPSMKY0162-99-99 08:58:00 Test Item Value Reference Range Interpretation Comments AGAP (test code = AGAP) 11.8 10.0-20.0 [facility] HospitalKiyyyqcSIEQKWYKXXKO6250-76-05 08:58:00 Test Item Value Reference Range Interpretation Comments eGFR (test code = eGFR) 45 [facility] HospitalHijuzryYTORYIYAKSUR9388-38-37 08:58:00 Test Item Value Reference Range Interpretation Comments BUN (test code = BUN) 25 7-22 [facility] HospitalDjvjnqvGKKOGIGEFUPX2138-05-75 08:58:00 Test Item Value Reference Range Interpretation Comments Glucose Lvl (test code = Glucose Lvl) 113 70-99 [facility] LakeSkcvmqbGCOTRJTBKV2985-19-98 08:58:00 Test Item Value Reference Range Interpretation Comments MPV (test code = MPV) 7.8 7.4-10.4 [facility] LakeXefsfewRAARJRAZYX7503-99-16 08:58:00 Test Item Value Reference Range Interpretation Comments Platelet (test code = Platelet) 301 133-450 [facility] LakeEphgoofPOOENWKGKG1385-41-98 08:58:00 Test Item Value Reference Range Interpretation Comments RDW (test code = RDW) 14.1 11.5-14.5 [facility] LakeFnydspmJLSWUADLHO4117-69-82 08:58:00 Test Item Value Reference Range Interpretation Comments MCH (test code = MCH) 29.9 pg 27.0-31.0 [facility] LakeJmyqkvjNUTPIXVQWJ0366-02-34 08:58:00 Test Item Value Reference Range Interpretation Comments MCV (test code = MCV) 89.6 80.0-98.0 [facility] LakeItgkgxfBEZNGGODVR9394-48-74 08:58:00 Test Item Value Reference Range Interpretation Comments MCHC (test code = MCHC) 33.4 32.0-36.0 [facility] LakeVsiptsbMIYMRQRXFQ3297-26-52 08:58:00 Test Item Value Reference Range Interpretation Comments Hct (test code = Hct) 34.3 36.0-48.0 [facility] LakeUnqqbrgWKVSNBOYTH3270-83-87 08:58:00 Test Item Value Reference Range Interpretation Comments Hgb (test code = Hgb) 11.5 12.0-16.0 [facility] LakeYuugsmuTDNSHOKAVN4577-34-20 08:58:00 Test Item Value Reference Range Interpretation Comments RBC (test code = RBC) 3.83 4.20-5.40 [facility] LakeZaxfvjfIXDAUVJLHT5124-59-94 08:58:00 Test Item Value Reference Range Interpretation Comments WBC (test code = WBC) 8.2 3.7-10.4 [facility] LakeKzhgxugMVOMOKLTTB8467-71-61 08:58:00 Test Item Value Reference Range Interpretation Comments Lymphocytes # (test code = Lymphocytes 1.9 1.0-5.5 #) [facility] LakeLdcezepFAKYHYYKQQ1031-55-11 08:58:00 Test Item Value Reference Range Interpretation Comments Segs-Bands # (test code = Segs-Bands #) 5.5 1.5-8.1 [facility] LakeSpeuytzHYDRJTZPBI9907-96-88 08:58:00 Test Item Value Reference Range Interpretation Comments Eosinophils (test code = 1.4 See_Comment [A utomated message] The Eosinophils) system which ge nerated this result tra nsmitted reference range : <=4.0. The reference r robbie was not used to int erpret this result as normal/abnormal . [facility] LakeVsgjzymSCYSOXVUYW1005-65-41 08:58:00 Test Item Value Reference Range Interpretation Comments Basophils (test code = 0.5 See_Comment [Aut omated message] The Basophils) system which ge nerated this result tra nsmitted reference range : <=1.0. The reference r robbie was not used to int erpret this result as normal/abnormal . [facility] LakeYuyxvphOUAAKMOOJH2438-00-18 08:58:00 Test Item Value Reference Range Interpretation Comments Monocytes (test code = Monocytes) 9.1 2.0-12.0 [facility] LakeBerikikWICFQBCFXQ7249-17-97 08:58:00 Test Item Value Reference Range Interpretation Comments Segs (test code = Segs) 66.2 45.0-75.0 [facility] LakeHhzmyipUQHRMLFYHL2750-06-93 08:58:00 Test Item Value Reference Range Interpretation Comments Lymphocytes (test code = Lymphocytes) 22.8 20.0-40.0 [facility] LakeFzjpcjjSICQNDQCXD3877-73-46 08:58:00 Test Item Value Reference Range Interpretation Comments Eosinophils # (test code 0.1 See_Comment [A utomated message] The = Eosinophils #) system whic h generated this result tra nsmitted reference range : <=0.5. The reference r robbie was not used to int erpret this result as normal/abnormal . [facility] LakeNkoliwhCCGIRWVKPX5619-85-55 08:58:00 Test Item Value Reference Range Interpretation Comments Monocytes # (test code 0.7 See_Comment [Aut omated message] The = Monocytes #) system which generated this result tra nsmitted reference range : <=0.8. The reference r robbie was not used to int erpret this result as normal/abnormal . [facility]CHE[facility] WHUOO3142-85-89 08:58:00 Test Item Value Reference Range Interpretation Comments Phosphorus (test code = Phosphorus) 2.9 2.5-4.5 [facility]CHE[facility] WMIEF4529-11-21 08:58:00 Test Item Value Reference Range Interpretation Comments Magnesium Lvl (test code = Magnesium 2.4 1.8-2.4 Lvl) [facility] HospitalXqiljinWLBBFKLHMRDZ9018-92-03 08:58:00 Test Item Value Reference Range Interpretation Comments Sodium Lvl (test code = Sodium Lvl) 139 135-145 [facility] HospitalCcckgdeUGZVVXMKEQBF7188-23-15 08:58:00 Test Item Value Reference Range Interpretation Comments Creatinine Lvl (test code = Creatinine 1.14 0.50-1.40 Lvl) [facility] HospitalByfchnfMPHKGYEYXEKK9964-79-64 08:58:00 Test Item Value Reference Range Interpretation Comments Chloride Lvl (test code = Chloride Lvl) 104 95-109 [facility] HospitalPndjuhiHOQIRUIACXYB6894-03-02 08:58:00 Test Item Value Reference Range Interpretation Comments CO2 (test code = CO2) 28 24-32 [facility] HospitalMtwdeupPMITOCEXUEBA1777-39-37 08:58:00 Test Item Value Reference Range Interpretation Comments Calcium Lvl (test code = Calcium Lvl) 8.7 8.5-10.5 [facility] HospitalVpvmluyQNCVZJSHHNRT1516-14-68 08:58:00 Test Item Value Reference Range Interpretation Comments Potassium Lvl (test code = Potassium 4.8 3.5-5.1 Lvl) [facility] HospitalLeutwkdLNLOSXVIHTOX9373-45-17 08:58:00 Test Item Value Reference Range Interpretation Comments AGAP (test code = AGAP) 11.8 10.0-20.0 [facility] HospitalNivatnrAGJRPDZASDIY3625-21-26 08:58:00 Test Item Value Reference Range Interpretation Comments eGFR (test code = eGFR) 45 [facility] HospitalPermxhxJZMNQUEKXYLR0900-77-35 08:58:00 Test Item Value Reference Range Interpretation Comments BUN (test code = BUN) 25 7-22 [facility] HospitalBofpywqOTOZQTQHJKAH3429-93-48 08:58:00 Test Item Value Reference Range Interpretation Comments Glucose Lvl (test code = Glucose Lvl) 113 70-99 [facility] HospitalVkeqonjZHIKNDIRXZ3475-01-30 08:58:00 Test Item Value Reference Range Interpretation Comments MPV (test code = MPV) 7.8 7.4-10.4 [facility] LakeGxtdlicQSJDTNKIVV5100-84-96 08:58:00 Test Item Value Reference Range Interpretation Comments Platelet (test code = Platelet) 301 133-450 [facility] LakeFmimbkhQJIKGMBURQ2700-14-40 08:58:00 Test Item Value Reference Range Interpretation Comments RDW (test code = RDW) 14.1 11.5-14.5 [facility] LakeMbpflnwBAGSBEKFFQ1055-31-70 08:58:00 Test Item Value Reference Range Interpretation Comments MCH (test code = MCH) 29.9 pg 27.0-31.0 [facility] LakeSuszyhrPMGCJILBAX6466-85-72 08:58:00 Test Item Value Reference Range Interpretation Comments MCV (test code = MCV) 89.6 80.0-98.0 [facility] LakeMfealozUVQORXUVMI8534-93-59 08:58:00 Test Item Value Reference Range Interpretation Comments MCHC (test code = MCHC) 33.4 32.0-36.0 [facility] LakeGdbgpysRZGOMDRVJU1924-57-28 08:58:00 Test Item Value Reference Range Interpretation Comments Hct (test code = Hct) 34.3 36.0-48.0 [facility] LakeCmbmxqaEJSQAHGZZX1595-39-95 08:58:00 Test Item Value Reference Range Interpretation Comments Hgb (test code = Hgb) 11.5 12.0-16.0 [facility] LakeRbkwxtkDOTKAROCNS4620-82-48 08:58:00 Test Item Value Reference Range Interpretation Comments RBC (test code = RBC) 3.83 4.20-5.40 [facility] LakeDpkadkfBMEYQVYPJO3629-63-57 08:58:00 Test Item Value Reference Range Interpretation Comments WBC (test code = WBC) 8.2 3.7-10.4 [facility] LakeTsmgobrXCIWBXLYKC3955-79-14 08:58:00 Test Item Value Reference Range Interpretation Comments Lymphocytes # (test code = Lymphocytes 1.9 1.0-5.5 #) [facility] LakeYwnognbBBPINVHLSI5512-07-86 08:58:00 Test Item Value Reference Range Interpretation Comments Segs-Bands # (test code = Segs-Bands #) 5.5 1.5-8.1 [facility] LakeGbbjjkjKHGHWQHSAT5083-95-93 08:58:00 Test Item Value Reference Range Interpretation Comments Eosinophils (test code = 1.4 See_Comment [A utomated message] The Eosinophils) system which ge nerated this result tra nsmitted reference range : <=4.0. The reference r robbie was not used to int erpret this result as normal/abnormal . [facility] LakeNulhyvbJBUWKSPIHX6946-68-14 08:58:00 Test Item Value Reference Range Interpretation Comments Basophils (test code = 0.5 See_Comment [Aut omated message] The Basophils) system which ge nerated this result tra nsmitted reference range : <=1.0. The reference r robbie was not used to int erpret this result as normal/abnormal . [facility] LakeQsiwkwpBZFBXMOMCM8137-08-55 08:58:00 Test Item Value Reference Range Interpretation Comments Monocytes (test code = Monocytes) 9.1 2.0-12.0 [facility] LakeWjfuqakEFIJFXHOZT5827-84-68 08:58:00 Test Item Value Reference Range Interpretation Comments Segs (test code = Segs) 66.2 45.0-75.0 [facility] LakeXkycvsuVGCMYKPZAJ9311-82-36 08:58:00 Test Item Value Reference Range Interpretation Comments Lymphocytes (test code = Lymphocytes) 22.8 20.0-40.0 [facility] LakeTecmkhhDJBGYZDNZM3758-69-78 08:58:00 Test Item Value Reference Range Interpretation Comments Eosinophils # (test code 0.1 See_Comment [A utomated message] The = Eosinophils #) system whic h generated this result tra nsmitted reference range : <=0.5. The reference r robbie was not used to int erpret this result as normal/abnormal . [facility] LakeCltkkcnRZHNAZRUUI4226-13-47 08:58:00 Test Item Value Reference Range Interpretation Comments Monocytes # (test code 0.7 See_Comment [Aut omated message] The = Monocytes #) system which generated this result tra nsmitted reference range : <=0.8. The reference r robbie was not used to int erpret this result as normal/abnormal . [facility] JXEOE5268-09-36 08:58:00 Test Item Value Reference Range Interpretation Comments Phosphorus (test code = Phosphorus) 2.9 2.5-4.5 [facility] PLNJQ5818-73-09 08:58:00 Test Item Value Reference Range Interpretation Comments Magnesium Lvl (test code = Magnesium 2.4 1.8-2.4 Lvl) [facility] HospitalGawbyfhZDONZWLETAAX5637-30-95 08:58:00 Test Item Value Reference Range Interpretation Comments Sodium Lvl (test code = Sodium Lvl) 139 135-145 [facility] HospitalWxbvcfuNBZSGPENWHZX0999-12-95 08:58:00 Test Item Value Reference Range Interpretation Comments Creatinine Lvl (test code = Creatinine 1.14 0.50-1.40 Lvl) [facility] HospitalUqoprvyHBHWYMQJJMGY3680-56-46 08:58:00 Test Item Value Reference Range Interpretation Comments Chloride Lvl (test code = Chloride Lvl) 104 95-109 [facility] HospitalDcbuhfxEFKNXJAVATFK4562-85-05 08:58:00 Test Item Value Reference Range Interpretation Comments CO2 (test code = CO2) 28 24-32 [facility] HospitalTgugtxlCBGOSENHYPFW5842-14-01 08:58:00 Test Item Value Reference Range Interpretation Comments Calcium Lvl (test code = Calcium Lvl) 8.7 8.5-10.5 [facility] HospitalMluhftfRNAPFSDJTERI8324-44-00 08:58:00 Test Item Value Reference Range Interpretation Comments Potassium Lvl (test code = Potassium 4.8 3.5-5.1 Lvl) [facility] HospitalHefblhiCXUVDNQRIROF8876-62-60 08:58:00 Test Item Value Reference Range Interpretation Comments AGAP (test code = AGAP) 11.8 10.0-20.0 [facility] HospitalYimiuwxQTURNAMFCIXZ8415-69-49 08:58:00 Test Item Value Reference Range Interpretation Comments eGFR (test code = eGFR) 45 [facility] HospitalJyhfadsPZYLLMXHIGQV7279-27-51 08:58:00 Test Item Value Reference Range Interpretation Comments BUN (test code = BUN) 25 7-22 [facility] HospitalAfvrslhWUCYLXIOWNLT0482-36-55 08:58:00 Test Item Value Reference Range Interpretation Comments Glucose Lvl (test code = Glucose Lvl) 113 70-99 [facility] LakeGxsweiiVQSFBTONDZ7071-26-54 08:58:00 Test Item Value Reference Range Interpretation Comments MPV (test code = MPV) 7.8 7.4-10.4 [facility] LakeOiiskauILTWRYZRQZ9064-11-74 08:58:00 Test Item Value Reference Range Interpretation Comments Platelet (test code = Platelet) 301 133-450 [facility] LakeUpakpflMOZDQEJVUN1202-55-49 08:58:00 Test Item Value Reference Range Interpretation Comments RDW (test code = RDW) 14.1 11.5-14.5 [facility] LakeQkbjdcrYPJMOWGAFT5581-32-19 08:58:00 Test Item Value Reference Range Interpretation Comments MCH (test code = MCH) 29.9 pg 27.0-31.0 [facility] LakeYecllqzBSRUBGQNXC3758-30-86 08:58:00 Test Item Value Reference Range Interpretation Comments MCV (test code = MCV) 89.6 80.0-98.0 [facility] LakeMomzxqiBUTGPUSPSK8856-13-14 08:58:00 Test Item Value Reference Range Interpretation Comments MCHC (test code = MCHC) 33.4 32.0-36.0 [facility] LakeBqzhvlePZNIIFVVFY4855-79-24 08:58:00 Test Item Value Reference Range Interpretation Comments Hct (test code = Hct) 34.3 36.0-48.0 [facility] LakeFljwvevBESEUZRACD0554-76-80 08:58:00 Test Item Value Reference Range Interpretation Comments Hgb (test code = Hgb) 11.5 12.0-16.0 [facility] LakeAwxfdisKSXGGYCIUL9551-83-76 08:58:00 Test Item Value Reference Range Interpretation Comments RBC (test code = RBC) 3.83 4.20-5.40 [facility] LakeOyfnhgtEKARRRVUWI4600-73-14 08:58:00 Test Item Value Reference Range Interpretation Comments WBC (test code = WBC) 8.2 3.7-10.4 [facility] LakePxcsqytXRXUSQQLFZ3628-53-78 08:58:00 Test Item Value Reference Range Interpretation Comments Lymphocytes # (test code = Lymphocytes 1.9 1.0-5.5 #) [facility] LakeIjnfgtbRQRPUNCIOS8735-02-34 08:58:00 Test Item Value Reference Range Interpretation Comments Segs-Bands # (test code = Segs-Bands #) 5.5 1.5-8.1 [facility] LakeMqcvncrWBOPJVIHUA1990-04-65 08:58:00 Test Item Value Reference Range Interpretation Comments Eosinophils (test code = 1.4 See_Comment [A utomated message] The Eosinophils) system which ge nerated this result tra nsmitted reference range : <=4.0. The reference r robbie was not used to int erpret this result as normal/abnormal . [facility] LakePrdblltPVJLDNJATI6077-19-62 08:58:00 Test Item Value Reference Range Interpretation Comments Basophils (test code = 0.5 See_Comment [Aut omated message] The Basophils) system which ge nerated this result tra nsmitted reference range : <=1.0. The reference r robbie was not used to int erpret this result as normal/abnormal . [facility] LakeZmsdpfdEGUUAMUSFS6223-46-15 08:58:00 Test Item Value Reference Range Interpretation Comments Monocytes (test code = Monocytes) 9.1 2.0-12.0 [facility] LakeKfcrighDTUBCJSILQ1471-23-71 08:58:00 Test Item Value Reference Range Interpretation Comments Segs (test code = Segs) 66.2 45.0-75.0 [facility] LakePfrzzgfKHGAKFMVRH1915-07-02 08:58:00 Test Item Value Reference Range Interpretation Comments Lymphocytes (test code = Lymphocytes) 22.8 20.0-40.0 [facility] LakeBajvifqPWEMJHPUVG2369-54-58 08:58:00 Test Item Value Reference Range Interpretation Comments Eosinophils # (test code 0.1 See_Comment [A utomated message] The = Eosinophils #) system whic h generated this result tra nsmitted reference range : <=0.5. The reference r robbie was not used to int erpret this result as normal/abnormal . [facility] LakeSmmgmimFFURCIIRXG0586-85-99 08:58:00 Test Item Value Reference Range Interpretation Comments Monocytes # (test code 0.7 See_Comment [Aut omated message] The = Monocytes #) system which generated this result tra nsmitted reference range : <=0.8. The reference r robbie was not used to int erpret this result as normal/abnormal . [facility] YNTOH9819-23-76 08:58:00 Test Item Value Reference Range Interpretation Comments Phosphorus (test code = Phosphorus) 2.9 2.5-4.5 [facility]CHEM UDYUH5757-33-63 08:58:00 Test Item Value Reference Range Interpretation Comments Magnesium Lvl (test code = Magnesium 2.4 1.8-2.4 Lvl) [facility]CjfsxrmUGBIKNDSAKKM7978-11-52 08:58:00 Test Item Value Reference Range Interpretation Comments Sodium Lvl (test code = Sodium Lvl) 139 135-145 [facility]LssbejfBIODNWYIJZWY7645-31-92 08:58:00 Test Item Value Reference Range Interpretation Comments Creatinine Lvl (test code = Creatinine 1.14 0.50-1.40 Lvl) [facility] HospitalRehpicxQCFVMFSYJIVI7310-74-78 08:58:00 Test Item Value Reference Range Interpretation Comments Chloride Lvl (test code = Chloride Lvl) 104 95-109 [facility] HospitalZjzxazhUHZOLJOSNRUC1751-14-99 08:58:00 Test Item Value Reference Range Interpretation Comments CO2 (test code = CO2) 28 24-32 [facility] HospitalEhtwuwiXOELNWVKEJOM0081-84-73 08:58:00 Test Item Value Reference Range Interpretation Comments Calcium Lvl (test code = Calcium Lvl) 8.7 8.5-10.5 [facility] HospitalQbzrbdyUTVVZYDJLBVR8767-02-85 08:58:00 Test Item Value Reference Range Interpretation Comments Potassium Lvl (test code = Potassium 4.8 3.5-5.1 Lvl) [facility] HospitalVenwgkkFJVMHWGTOXXH2779-50-29 08:58:00 Test Item Value Reference Range Interpretation Comments AGAP (test code = AGAP) 11.8 10.0-20.0 [facility] HospitalSvwgbgvJEMVUBIABCDJ2156-11-53 08:58:00 Test Item Value Reference Range Interpretation Comments eGFR (test code = eGFR) 45 [facility] HospitalHhwoxvgXMKJSZRZORNK6960-99-20 08:58:00 Test Item Value Reference Range Interpretation Comments BUN (test code = BUN) 25 7-22 [facility] HospitalTiqrafiXHJXWGKTPAWC2869-79-24 08:58:00 Test Item Value Reference Range Interpretation Comments Glucose Lvl (test code = Glucose Lvl) 113 70-99 [facility] LakeFrrxbeyKESYPMFVAU8672-99-23 08:58:00 Test Item Value Reference Range Interpretation Comments MPV (test code = MPV) 7.8 7.4-10.4 [facility] LakeCmyswdkBARXEJAWJV1152-81-58 08:58:00 Test Item Value Reference Range Interpretation Comments Platelet (test code = Platelet) 301 133-450 [facility] LakeVqpibxhZMGFTBAXTZ8353-27-62 08:58:00 Test Item Value Reference Range Interpretation Comments RDW (test code = RDW) 14.1 11.5-14.5 [facility] LakeCohemgkUVYNLFHHRD1195-12-10 08:58:00 Test Item Value Reference Range Interpretation Comments MCH (test code = MCH) 29.9 pg 27.0-31.0 [facility] LakeGjxvmktEENQBVASKG8388-01-04 08:58:00 Test Item Value Reference Range Interpretation Comments MCV (test code = MCV) 89.6 80.0-98.0 [facility] LakeTpptqlhFAWSRHWBTZ8717-40-04 08:58:00 Test Item Value Reference Range Interpretation Comments MCHC (test code = MCHC) 33.4 32.0-36.0 [facility] LakeQrgigsnYYNGYEMYCI4699-81-04 08:58:00 Test Item Value Reference Range Interpretation Comments Hct (test code = Hct) 34.3 36.0-48.0 [facility] LakeFhpujmzFYJFPNJHJB1774-33-60 08:58:00 Test Item Value Reference Range Interpretation Comments Hgb (test code = Hgb) 11.5 12.0-16.0 [facility] LakeAgvyzkbOZXHLCZYGY3097-01-00 08:58:00 Test Item Value Reference Range Interpretation Comments RBC (test code = RBC) 3.83 4.20-5.40 [facility] LakeAlfahymUTVDFAAGPM5319-05-41 08:58:00 Test Item Value Reference Range Interpretation Comments WBC (test code = WBC) 8.2 3.7-10.4 [facility] LakeRnqbjwqCWMSIWITPW0427-62-19 08:58:00 Test Item Value Reference Range Interpretation Comments Lymphocytes # (test code = Lymphocytes 1.9 1.0-5.5 #) [facility] LakeLzvjldtAHXFUWUYYN9052-95-81 08:58:00 Test Item Value Reference Range Interpretation Comments Segs-Bands # (test code = Segs-Bands #) 5.5 1.5-8.1 [facility] LakeTkekslhMBGEMGYMLP1709-08-14 08:58:00 Test Item Value Reference Range Interpretation Comments Eosinophils (test code = 1.4 See_Comment [A utomated message] The Eosinophils) system which ge nerated this result tra nsmitted reference range : <=4.0. The reference r robbie was not used to int erpret this result as normal/abnormal . [facility] LakeBogvrtkSSMNPIGXZI8740-79-25 08:58:00 Test Item Value Reference Range Interpretation Comments Basophils (test code = 0.5 See_Comment [Aut omated message] The Basophils) system which ge nerated this result tra nsmitted reference range : <=1.0. The reference r robbie was not used to int erpret this result as normal/abnormal . [facility] LakeFubotboRRGTTLCEXK8382-76-32 08:58:00 Test Item Value Reference Range Interpretation Comments Monocytes (test code = Monocytes) 9.1 2.0-12.0 [facility] LakeYonthxvYHBEGOZCKN3018-49-66 08:58:00 Test Item Value Reference Range Interpretation Comments Segs (test code = Segs) 66.2 45.0-75.0 [facility] LakeTonzgfzYZGSWTHNUU7395-89-76 08:58:00 Test Item Value Reference Range Interpretation Comments Lymphocytes (test code = Lymphocytes) 22.8 20.0-40.0 [facility] LakeZaeeadqIYSBHBIASM5925-13-05 08:58:00 Test Item Value Reference Range Interpretation Comments Eosinophils # (test code 0.1 See_Comment [A utomated message] The = Eosinophils #) system whic h generated this result tra nsmitted reference range : <=0.5. The reference r robbie was not used to int erpret this result as normal/abnormal . [facility] LakeTnabswsLEGLCHZYQI4401-31-95 08:58:00 Test Item Value Reference Range Interpretation Comments Monocytes # (test code 0.7 See_Comment [Aut omated message] The = Monocytes #) system which generated this result tra nsmitted reference range : <=0.8. The reference r robbie was not used to int erpret this result as normal/abnormal . [facility] UXAGJ4779-54-40 08:58:00 Test Item Value Reference Range Interpretation Comments Phosphorus (test code = Phosphorus) 2.9 2.5-4.5 [facility] JOOUR8673-25-56 08:58:00 Test Item Value Reference Range Interpretation Comments Magnesium Lvl (test code = Magnesium 2.4 1.8-2.4 Lvl) [facility] HospitalGukmuyhZZVIPGZWGJVW5346-58-09 08:58:00 Test Item Value Reference Range Interpretation Comments Sodium Lvl (test code = Sodium Lvl) 139 135-145 [facility] HospitalUdzwlfyUOMPRVLBBIZR3529-99-15 08:58:00 Test Item Value Reference Range Interpretation Comments Creatinine Lvl (test code = Creatinine 1.14 0.50-1.40 Lvl) [facility] HospitalTqtvjhoRJOEPHHARXOF3906-58-27 08:58:00 Test Item Value Reference Range Interpretation Comments Chloride Lvl (test code = Chloride Lvl) 104 95-109 [facility] HospitalWiqvudySFBGJEUNZIBB3010-03-80 08:58:00 Test Item Value Reference Range Interpretation Comments CO2 (test code = CO2) 28 24-32 [facility] HospitalAdllsbpLIMOBQIUNRIS1173-66-41 08:58:00 Test Item Value Reference Range Interpretation Comments Calcium Lvl (test code = Calcium Lvl) 8.7 8.5-10.5 [facility] HospitalNndxggfBXAIUIOUOAIG1827-63-47 08:58:00 Test Item Value Reference Range Interpretation Comments Potassium Lvl (test code = Potassium 4.8 3.5-5.1 Lvl) [facility] HospitalUpjtzfbOXECYOOSFQQP9683-12-90 08:58:00 Test Item Value Reference Range Interpretation Comments AGAP (test code = AGAP) 11.8 10.0-20.0 [facility] HospitalElcxkmhBTCZFVYIPVUW2657-69-74 08:58:00 Test Item Value Reference Range Interpretation Comments eGFR (test code = eGFR) 45 [facility] HospitalLzbnmluAUXOUWHTMTIY0405-39-01 08:58:00 Test Item Value Reference Range Interpretation Comments BUN (test code = BUN) 25 7-22 [facility] HospitalPcyfglwXDBHUIAUFFVQ4112-37-65 08:58:00 Test Item Value Reference Range Interpretation Comments Glucose Lvl (test code = Glucose Lvl) 113 70-99 [facility] LakeAvmlmqlCCNKGPIOHR5191-52-50 08:58:00 Test Item Value Reference Range Interpretation Comments MPV (test code = MPV) 7.8 7.4-10.4 [facility] LakePsrydudNOGYNRHTZN3607-52-88 08:58:00 Test Item Value Reference Range Interpretation Comments Platelet (test code = Platelet) 301 133-450 [facility] LakeZlybhdhGHHJICHFGY6586-49-86 08:58:00 Test Item Value Reference Range Interpretation Comments RDW (test code = RDW) 14.1 11.5-14.5 [facility] LakeOxzczdcGLEIDXZMJN8428-12-08 08:58:00 Test Item Value Reference Range Interpretation Comments MCH (test code = MCH) 29.9 pg 27.0-31.0 [facility] LakeNnoflxzAALSHHBKTJ9909-64-65 08:58:00 Test Item Value Reference Range Interpretation Comments MCV (test code = MCV) 89.6 80.0-98.0 [facility] LakeGxruwinOWSJTUTORH3010-88-25 08:58:00 Test Item Value Reference Range Interpretation Comments MCHC (test code = MCHC) 33.4 32.0-36.0 [facility] LakeCkyjfpuNJLUURVRSX9962-51-75 08:58:00 Test Item Value Reference Range Interpretation Comments Hct (test code = Hct) 34.3 36.0-48.0 [facility] LakeYkmakmnWJKVSWQMES9108-07-75 08:58:00 Test Item Value Reference Range Interpretation Comments Hgb (test code = Hgb) 11.5 12.0-16.0 [facility] LakeCmsdtaqHQBDIEVNFL6777-96-46 08:58:00 Test Item Value Reference Range Interpretation Comments RBC (test code = RBC) 3.83 4.20-5.40 [facility] LakeSgwlbimXWHGQWPTOB9375-63-75 08:58:00 Test Item Value Reference Range Interpretation Comments WBC (test code = WBC) 8.2 3.7-10.4 [facility] LakeNcylyicPOXMUVFRZU4886-54-13 08:58:00 Test Item Value Reference Range Interpretation Comments Lymphocytes # (test code = Lymphocytes 1.9 1.0-5.5 #) [facility] LakeEztuymnAOMAPNRUIR0692-97-10 08:58:00 Test Item Value Reference Range Interpretation Comments Segs-Bands # (test code = Segs-Bands #) 5.5 1.5-8.1 [facility] LakeOlyovmtQDJMCYXEYV1722-56-29 08:58:00 Test Item Value Reference Range Interpretation Comments Eosinophils (test code = 1.4 See_Comment [A utomated message] The Eosinophils) system which ge nerated this result tra nsmitted reference range : <=4.0. The reference r robbie was not used to int erpret this result as normal/abnormal . [facility] LakeCmnpzmdHFVXIOVGOG1332-75-82 08:58:00 Test Item Value Reference Range Interpretation Comments Basophils (test code = 0.5 See_Comment [Aut omated message] The Basophils) system which ge nerated this result tra nsmitted reference range : <=1.0. The reference r robbie was not used to int erpret this result as normal/abnormal . [facility] LakeOkacrpqCSOFQZFYDN2970-06-24 08:58:00 Test Item Value Reference Range Interpretation Comments Monocytes (test code = Monocytes) 9.1 2.0-12.0 [facility] LakeItyklpyDQZZOCFVTB3929-28-64 08:58:00 Test Item Value Reference Range Interpretation Comments Segs (test code = Segs) 66.2 45.0-75.0 [facility] LakeHgekoyiQWFKFXGZCH1420-83-23 08:58:00 Test Item Value Reference Range Interpretation Comments Lymphocytes (test code = Lymphocytes) 22.8 20.0-40.0 [facility] LakeUlpepkaFRKVTMSBUT3247-58-15 08:58:00 Test Item Value Reference Range Interpretation Comments Eosinophils # (test code 0.1 See_Comment [A utomated message] The = Eosinophils #) system whic h generated this result tra nsmitted reference range : <=0.5. The reference r robbie was not used to int erpret this result as normal/abnormal . [facility] LakeAwhotrcDCXTTGIKNY6144-20-00 08:58:00 Test Item Value Reference Range Interpretation Comments Monocytes # (test code 0.7 See_Comment [Aut omated message] The = Monocytes #) system which generated this result tra nsmitted reference range : <=0.8. The reference r robbie was not used to int erpret this result as normal/abnormal . [facility] XWQPY3966-28-53 08:58:00 Test Item Value Reference Range Interpretation Comments Phosphorus (test code = Phosphorus) 2.9 2.5-4.5 [facility] MKWRW2225-13-51 08:58:00 Test Item Value Reference Range Interpretation Comments Magnesium Lvl (test code = Magnesium 2.4 1.8-2.4 Lvl) [facility] HospitalFrpqufsRXZVYTWLRRDF5811-69-48 08:58:00 Test Item Value Reference Range Interpretation Comments Sodium Lvl (test code = Sodium Lvl) 139 135-145 [facility] HospitalOzxbkxwLXAELIWLAFTU7682-73-54 08:58:00 Test Item Value Reference Range Interpretation Comments Creatinine Lvl (test code = Creatinine 1.14 0.50-1.40 Lvl) [facility] HospitalWbvabwoWMNZKXYQYIVX3348-02-19 08:58:00 Test Item Value Reference Range Interpretation Comments Chloride Lvl (test code = Chloride Lvl) 104 95-109 [facility] HospitalTvrzlnyCFAHMSFZPPBT7659-73-29 08:58:00 Test Item Value Reference Range Interpretation Comments CO2 (test code = CO2) 28 24-32 [facility] HospitalNgmcpfcSOTZGGIDQHAW5342-38-70 08:58:00 Test Item Value Reference Range Interpretation Comments Calcium Lvl (test code = Calcium Lvl) 8.7 8.5-10.5 [facility] HospitalUxyqqfdNEZXMYFKYZHV2991-27-46 08:58:00 Test Item Value Reference Range Interpretation Comments Potassium Lvl (test code = Potassium 4.8 3.5-5.1 Lvl) [facility] HospitalIcyazyvCIJBHVGQLYEI9851-64-99 08:58:00 Test Item Value Reference Range Interpretation Comments AGAP (test code = AGAP) 11.8 10.0-20.0 [facility] HospitalCzeniyvTKJOTNIUGAOR4380-46-21 08:58:00 Test Item Value Reference Range Interpretation Comments eGFR (test code = eGFR) 45 [facility] HospitalQihthpbVMJZAQBSKRRP9806-02-94 08:58:00 Test Item Value Reference Range Interpretation Comments BUN (test code = BUN) 25 7-22 [facility] HospitalJghmkgeSLWPQXSVJMHG5800-77-26 08:58:00 Test Item Value Reference Range Interpretation Comments Glucose Lvl (test code = Glucose Lvl) 113 70-99 [facility] LakeRrjrmwsMSRDPTFAQX0044-83-42 08:58:00 Test Item Value Reference Range Interpretation Comments MPV (test code = MPV) 7.8 7.4-10.4 [facility] LakeYgzflmdIKMIMMYBVZ0170-40-72 08:58:00 Test Item Value Reference Range Interpretation Comments Platelet (test code = Platelet) 301 133-450 [facility] LakeSaoigckHWUTWROSYW3864-51-62 08:58:00 Test Item Value Reference Range Interpretation Comments RDW (test code = RDW) 14.1 11.5-14.5 [facility] LakePmokbfeSNZVQUKDUV9809-98-87 08:58:00 Test Item Value Reference Range Interpretation Comments MCH (test code = MCH) 29.9 pg 27.0-31.0 [facility] LakeQuxrqwbRGOUVZHHSH6803-81-68 08:58:00 Test Item Value Reference Range Interpretation Comments MCV (test code = MCV) 89.6 80.0-98.0 [facility] LakePobeljaNQEZHSNVOS9941-28-92 08:58:00 Test Item Value Reference Range Interpretation Comments MCHC (test code = MCHC) 33.4 32.0-36.0 [facility] LakeQpbxrtyYPGYNOKSZM2938-50-32 08:58:00 Test Item Value Reference Range Interpretation Comments Hct (test code = Hct) 34.3 36.0-48.0 [facility] LakePaohhzdHXCJDEASGJ9627-41-26 08:58:00 Test Item Value Reference Range Interpretation Comments Hgb (test code = Hgb) 11.5 12.0-16.0 [facility] LakeJgkcftyPHUQKHLBKP4247-25-13 08:58:00 Test Item Value Reference Range Interpretation Comments RBC (test code = RBC) 3.83 4.20-5.40 [facility] LakeCzrsqhdBZCNPWCOQG8715-90-64 08:58:00 Test Item Value Reference Range Interpretation Comments WBC (test code = WBC) 8.2 3.7-10.4 [facility] LakeErglxeuZCPMYCAGDL6960-02-83 08:58:00 Test Item Value Reference Range Interpretation Comments Lymphocytes # (test code = Lymphocytes 1.9 1.0-5.5 #) [facility] LakeLnddiygGQCOCFLWNA5512-15-93 08:58:00 Test Item Value Reference Range Interpretation Comments Segs-Bands # (test code = Segs-Bands #) 5.5 1.5-8.1 [facility] LakeGyymbdkMSKGAGSHCS3087-93-58 08:58:00 Test Item Value Reference Range Interpretation Comments Eosinophils (test code = 1.4 See_Comment [A utomated message] The Eosinophils) system which ge nerated this result tra nsmitted reference range : <=4.0. The reference r robbie was not used to int erpret this result as normal/abnormal . [facility] LakeGfnhjhaREMDGYUYZS2866-79-35 08:58:00 Test Item Value Reference Range Interpretation Comments Basophils (test code = 0.5 See_Comment [Aut omated message] The Basophils) system which ge nerated this result tra nsmitted reference range : <=1.0. The reference r robbie was not used to int erpret this result as normal/abnormal . [facility] LakeCuzudisRMDOCFIJSN2706-18-98 08:58:00 Test Item Value Reference Range Interpretation Comments Monocytes (test code = Monocytes) 9.1 2.0-12.0 [facility] LakeDhpecasVVSQQENKNH9529-92-49 08:58:00 Test Item Value Reference Range Interpretation Comments Segs (test code = Segs) 66.2 45.0-75.0 [facility] LakeRlfdhzcGNKCZASQMF1257-90-74 08:58:00 Test Item Value Reference Range Interpretation Comments Lymphocytes (test code = Lymphocytes) 22.8 20.0-40.0 [facility] LakeIhdpiuiYOWJIQGDBI2535-28-75 08:58:00 Test Item Value Reference Range Interpretation Comments Eosinophils # (test code 0.1 See_Comment [A utomated message] The = Eosinophils #) system whic h generated this result tra nsmitted reference range : <=0.5. The reference r robbie was not used to int erpret this result as normal/abnormal . [facility]SmguskhGECLPXCGJV1188-46-40 08:58:00 Test Item Value Reference Range Interpretation Comments Monocytes # (test code 0.7 See_Comment [Aut omated message] The = Monocytes #) system which generated this result tra nsmitted reference range : <=0.8. The reference r robbie was not used to int erpret this result as normal/abnormal . [facility] NQDIJ5063-16-48 08:58:00 Test Item Value Reference Range Interpretation Comments Phosphorus (test code = Phosphorus) 2.9 2.5-4.5 [facility]CHE[facility] GJMHF5707-64-48 08:58:00 Test Item Value Reference Range Interpretation Comments Magnesium Lvl (test code = Magnesium 2.4 1.8-2.4 Lvl) [facility] HospitalTszyguuCREMTUOTTRMM9503-19-55 08:58:00 Test Item Value Reference Range Interpretation Comments Sodium Lvl (test code = Sodium Lvl) 139 135-145 [facility] HospitalKiotaudHVIOIXWNGJTC4089-63-81 08:58:00 Test Item Value Reference Range Interpretation Comments Creatinine Lvl (test code = Creatinine 1.14 0.50-1.40 Lvl) [facility] HospitalZnivxkoBWNCEBSDABMC0135-66-06 08:58:00 Test Item Value Reference Range Interpretation Comments Chloride Lvl (test code = Chloride Lvl) 104 95-109 [facility] HospitalGerooquOFUZSQTBJOZG3515-64-81 08:58:00 Test Item Value Reference Range Interpretation Comments CO2 (test code = CO2) 28 24-32 [facility] HospitalPdswmbeKUDCFFNMCWRU8944-86-48 08:58:00 Test Item Value Reference Range Interpretation Comments Calcium Lvl (test code = Calcium Lvl) 8.7 8.5-10.5 [facility] HospitalBxeryzpOTMAJTEPSPFG0525-82-33 08:58:00 Test Item Value Reference Range Interpretation Comments Potassium Lvl (test code = Potassium 4.8 3.5-5.1 Lvl) [facility] HospitalDpsdyuvJRXQHMHEMZUK7122-77-59 08:58:00 Test Item Value Reference Range Interpretation Comments AGAP (test code = AGAP) 11.8 10.0-20.0 [facility] HospitalFklwesgOIECVNSBXESO3521-49-10 08:58:00 Test Item Value Reference Range Interpretation Comments eGFR (test code = eGFR) 45 [facility] HospitalRfadiefOIWGHUIMGOMY3510-35-84 08:58:00 Test Item Value Reference Range Interpretation Comments BUN (test code = BUN) 25 7-22 [facility] HospitalYlfhlhlNYJWTTYUMIDV2847-00-58 08:58:00 Test Item Value Reference Range Interpretation Comments Glucose Lvl (test code = Glucose Lvl) 113 70-99 [facility] LakeJlkuxigAMPCBIXZMP1369-64-96 08:58:00 Test Item Value Reference Range Interpretation Comments MPV (test code = MPV) 7.8 7.4-10.4 [facility] LakeZwposrdJHQVXIOGUC2711-24-00 08:58:00 Test Item Value Reference Range Interpretation Comments Platelet (test code = Platelet) 301 133-450 [facility] LakeIqdbqdtRBBANVGAAV6133-51-91 08:58:00 Test Item Value Reference Range Interpretation Comments RDW (test code = RDW) 14.1 11.5-14.5 [facility] LakeGbytmbeKUGLTGIKZN5111-86-18 08:58:00 Test Item Value Reference Range Interpretation Comments MCH (test code = MCH) 29.9 pg 27.0-31.0 [facility] LakeOgzcapdSSKIJTMUZE9220-38-95 08:58:00 Test Item Value Reference Range Interpretation Comments MCV (test code = MCV) 89.6 80.0-98.0 [facility] LakeMoksxetNEDFHQVSIP1455-17-67 08:58:00 Test Item Value Reference Range Interpretation Comments MCHC (test code = MCHC) 33.4 32.0-36.0 [facility] LakeWmwxcfjXTMNOFXIVU5721-08-83 08:58:00 Test Item Value Reference Range Interpretation Comments Hct (test code = Hct) 34.3 36.0-48.0 [facility] LakeHtbqvxnMYNZNFRKLC8087-08-29 08:58:00 Test Item Value Reference Range Interpretation Comments Hgb (test code = Hgb) 11.5 12.0-16.0 [facility] LakeMgyketgYRVAKFIJZL2513-13-25 08:58:00 Test Item Value Reference Range Interpretation Comments RBC (test code = RBC) 3.83 4.20-5.40 [facility] LakeBogswluSCNJELSQLQ4578-76-03 08:58:00 Test Item Value Reference Range Interpretation Comments WBC (test code = WBC) 8.2 3.7-10.4 [facility] LakeQvptczzWYZFYAYDMZ1293-15-78 08:58:00 Test Item Value Reference Range Interpretation Comments Lymphocytes # (test code = Lymphocytes 1.9 1.0-5.5 #) [facility] LakeBqflbjuUFHKAVXKMZ3528-72-52 08:58:00 Test Item Value Reference Range Interpretation Comments Segs-Bands # (test code = Segs-Bands #) 5.5 1.5-8.1 [facility] LakeUxkfcrrRFQDWYLAIL3423-64-87 08:58:00 Test Item Value Reference Range Interpretation Comments Eosinophils (test code = 1.4 See_Comment [A utomated message] The Eosinophils) system which ge nerated this result tra nsmitted reference range : <=4.0. The reference r robbie was not used to int erpret this result as normal/abnormal . [facility] LakeXupsruoOKWXWSPIUP4532-33-51 08:58:00 Test Item Value Reference Range Interpretation Comments Basophils (test code = 0.5 See_Comment [Aut omated message] The Basophils) system which ge nerated this result tra nsmitted reference range : <=1.0. The reference r robbie was not used to int erpret this result as normal/abnormal . [facility] LakeXtgbwuwOFVSEPJYWR9218-06-81 08:58:00 Test Item Value Reference Range Interpretation Comments Monocytes (test code = Monocytes) 9.1 2.0-12.0 [facility] LakeLmmykuwFZQXMYVFAY3674-75-16 08:58:00 Test Item Value Reference Range Interpretation Comments Segs (test code = Segs) 66.2 45.0-75.0 [facility] LakeWudaudxKMRNAFBRDU0750-11-42 08:58:00 Test Item Value Reference Range Interpretation Comments Lymphocytes (test code = Lymphocytes) 22.8 20.0-40.0 [facility] LakeQdfdizfIVTBDEDXXN7542-91-84 08:58:00 Test Item Value Reference Range Interpretation Comments Eosinophils # (test code 0.1 See_Comment [A utomated message] The = Eosinophils #) system whic h generated this result tra nsmitted reference range : <=0.5. The reference r robbie was not used to int erpret this result as normal/abnormal . [facility] LakeZkppegtNOZBQTEVRM6627-24-23 08:58:00 Test Item Value Reference Range Interpretation Comments Monocytes # (test code 0.7 See_Comment [Aut omated message] The = Monocytes #) system which generated this result tra nsmitted reference range : <=0.8. The reference r robbie was not used to int erpret this result as normal/abnormal . [facility] [id number] 08:58:00 Test Item Value Reference Range Interpretation Comments Phosphorus (test code = Phosphorus) 2.9 2.5-4.5 [facility] [id number] 08:58:00 Test Item Value Reference Range Interpretation Comments Magnesium Lvl (test code = Magnesium 2.4 1.8-2.4 Lvl) [facility]tkemrzOISMGKOKCXRK7178-60-57 08:58:00 Test Item Value Reference Range Interpretation Comments Sodium Lvl (test code = Sodium Lvl) 139 135-145 [facility] HospitalCfbkrrfXQAIFSRCKQEX6448-60-92 08:58:00 Test Item Value Reference Range Interpretation Comments Creatinine Lvl (test code = Creatinine 1.14 0.50-1.40 Lvl) [facility] HospitalLkcntplKWEUNCSAWQZC3162-52-27 08:58:00 Test Item Value Reference Range Interpretation Comments Chloride Lvl (test code = Chloride Lvl) 104 95-109 [facility] HospitalBxbwjnqSEXLXQPISABX8649-41-82 08:58:00 Test Item Value Reference Range Interpretation Comments CO2 (test code = CO2) 28 24-32 [facility] HospitalRpeokjgKJNOERBRINDK8632-73-40 08:58:00 Test Item Value Reference Range Interpretation Comments Calcium Lvl (test code = Calcium Lvl) 8.7 8.5-10.5 [facility] HospitalRwiaxyyYKMSUQOZJLHA7207-02-77 08:58:00 Test Item Value Reference Range Interpretation Comments Potassium Lvl (test code = Potassium 4.8 3.5-5.1 Lvl) [facility] HospitalKervlsqJXSCEKMECWFD4861-33-94 08:58:00 Test Item Value Reference Range Interpretation Comments AGAP (test code = AGAP) 11.8 10.0-20.0 [facility] HospitalBcznkjfLDTVOHORVICE3198-65-66 08:58:00 Test Item Value Reference Range Interpretation Comments eGFR (test code = eGFR) 45 [facility] HospitalZmyoeomJNZLGFIYJGAE9537-74-89 08:58:00 Test Item Value Reference Range Interpretation Comments BUN (test code = BUN) 25 7-22 [facility] HospitalMymnfzdNLTZIFEMQWEP8406-75-06 08:58:00 Test Item Value Reference Range Interpretation Comments Glucose Lvl (test code = Glucose Lvl) 113 70-99 [facility] LakeCqzncrhARWJQMSGFC0689-11-74 08:58:00 Test Item Value Reference Range Interpretation Comments MPV (test code = MPV) 7.8 7.4-10.4 [facility] LakeYzprseqEIKFQUBLUS3724-38-29 08:58:00 Test Item Value Reference Range Interpretation Comments Platelet (test code = Platelet) 301 133-450 [facility] LakeRkcykmdDKREDOIDVD1589-40-89 08:58:00 Test Item Value Reference Range Interpretation Comments RDW (test code = RDW) 14.1 11.5-14.5 [facility] LakeHsvzfbzITAWCLKRTX7935-51-20 08:58:00 Test Item Value Reference Range Interpretation Comments MCH (test code = MCH) 29.9 pg 27.0-31.0 [facility] LakeEkxtsxyWZFYWJDSIR1316-51-87 08:58:00 Test Item Value Reference Range Interpretation Comments MCV (test code = MCV) 89.6 80.0-98.0 [facility] LakeMduyeebHYVZTERFEQ6317-38-12 08:58:00 Test Item Value Reference Range Interpretation Comments MCHC (test code = MCHC) 33.4 32.0-36.0 [facility] LakePrriybxKWYDFYRVLT1599-46-44 08:58:00 Test Item Value Reference Range Interpretation Comments Hct (test code = Hct) 34.3 36.0-48.0 [facility] LakeVyzalqbPOTRTDMYLQ5769-63-11 08:58:00 Test Item Value Reference Range Interpretation Comments Hgb (test code = Hgb) 11.5 12.0-16.0 [facility] LakeNnxxqhiCCBLCFHJEG7430-48-85 08:58:00 Test Item Value Reference Range Interpretation Comments RBC (test code = RBC) 3.83 4.20-5.40 [facility] LakeFbwwqsyCRYESQKQIC3229-50-43 08:58:00 Test Item Value Reference Range Interpretation Comments WBC (test code = WBC) 8.2 3.7-10.4 [facility] LakeWeyanhkBSCDSCAGJB4465-29-52 08:58:00 Test Item Value Reference Range Interpretation Comments Lymphocytes # (test code = Lymphocytes 1.9 1.0-5.5 #) [facility] LakeEcfzqzkXYBVWSRRAN1560-56-60 08:58:00 Test Item Value Reference Range Interpretation Comments Segs-Bands # (test code = Segs-Bands #) 5.5 1.5-8.1 [facility] LakePzojauaGOMRHSOEZT0121-42-13 08:58:00 Test Item Value Reference Range Interpretation Comments Eosinophils (test code = 1.4 See_Comment [A utomated message] The Eosinophils) system which ge nerated this result tra nsmitted reference range : <=4.0. The reference r robbie was not used to int erpret this result as normal/abnormal . [facility] LakeLbvxylgNNATAHOJGZ5189-91-56 08:58:00 Test Item Value Reference Range Interpretation Comments Basophils (test code = 0.5 See_Comment [Aut omated message] The Basophils) system which ge nerated this result tra nsmitted reference range : <=1.0. The reference r robbie was not used to int erpret this result as normal/abnormal . [facility] LakeRwplwbeBRLQMAOBAM9576-01-51 08:58:00 Test Item Value Reference Range Interpretation Comments Monocytes (test code = Monocytes) 9.1 2.0-12.0 [facility] LakeJtlqamyXYAZNHURTT0836-71-84 08:58:00 Test Item Value Reference Range Interpretation Comments Segs (test code = Segs) 66.2 45.0-75.0 [facility] LakeRlsvcerQEUBPMBXDQ6225-78-57 08:58:00 Test Item Value Reference Range Interpretation Comments Lymphocytes (test code = Lymphocytes) 22.8 20.0-40.0 [facility] LakeOasngcyIMDZUFAKKZ5846-42-09 08:58:00 Test Item Value Reference Range Interpretation Comments Eosinophils # (test code 0.1 See_Comment [A utomated message] The = Eosinophils #) system wh h generated this result tra nsmitted reference range : <=0.5. The reference r robbie was not used to int erpret this result as normal/abnormal . [facility] LakeSlvtvazCTJXBAEJOL5752-76-62 08:58:00 Test Item Value Reference Range Interpretation Comments Monocytes # (test code 0.7 See_Comment [Aut omated message] The = Monocytes #) system which generated this result tra nsmitted reference range : <=0.8. The reference r robbie was not used to int erpret this result as normal/abnormal . [facility]2016-09-01 09:58:00 Test Item Value Reference Range Interpretation Comments Phosphorus (test code = Phosphorus) 3.7 2.5-4.5 [facility]2016-09-01 09:58:00 Test Item Value Reference Range Interpretation Comments Magnesium Lvl (test code = Magnesium 2.1 1.8-2.4 Lvl) [facility]2016-09-01 09:58:00 Test Item Value Reference Range Interpretation Comments eGFR (test code = eGFR) 42 [facility]2016-09-01 09:58:00 Test Item Value Reference Range Interpretation Comments AGAP (test code = AGAP) 12.9 10.0-20.0 [facility]2016-09-01 09:58:00 Test Item Value Reference Range Interpretation Comments Chloride Lvl (test code = Chloride Lvl) 104 95-109 [facility]2016-09-01 09:58:00 Test Item Value Reference Range Interpretation Comments CO2 (test code = CO2) 25 24-32 [facility]2016-09-01 09:58:00 Test Item Value Reference Range Interpretation Comments Calcium Lvl (test code = Calcium Lvl) 8.5 8.5-10.5 [facility]2016-09-01 09:58:00 Test Item Value Reference Range Interpretation Comments Potassium Lvl (test code = Potassium 3.9 3.5-5.1 Lvl) [facility]2016-09-01 09:58:00 Test Item Value Reference Range Interpretation Comments Creatinine Lvl (test code = Creatinine 1.22 0.50-1.40 Lvl) [facility]2016-09-01 09:58:00 Test Item Value Reference Range Interpretation Comments Sodium Lvl (test code = Sodium Lvl) 138 135-145 [facility]2016-09-01 09:58:00 Test Item Value Reference Range Interpretation Comments BUN (test code = BUN) 24 7-22 [facility]2016-09-01 09:58:00 Test Item Value Reference Range Interpretation Comments Glucose Lvl (test code = Glucose Lvl) 92 70-99 [facility]2016-09-01 09:58:00 Test Item Value Reference Range Interpretation Comments Phosphorus (test code = Phosphorus) 3.7 2.5-4.5 [facility]2016-09-01 09:58:00 Test Item Value Reference Range Interpretation Comments Magnesium Lvl (test code = Magnesium 2.1 1.8-2.4 Lvl) [facility]2016-09-01 09:58:00 Test Item Value Reference Range Interpretation Comments eGFR (test code = eGFR) 42 [facility]2016-09-01 09:58:00 Test Item Value Reference Range Interpretation Comments AGAP (test code = AGAP) 12.9 10.0-20.0 [facility]2016-09-01 09:58:00 Test Item Value Reference Range Interpretation Comments Chloride Lvl (test code = Chloride Lvl) 104 95-109 [facility]2016-09-01 09:58:00 Test Item Value Reference Range Interpretation Comments CO2 (test code = CO2) 25 24-32 [facility]2016-09-01 09:58:00 Test Item Value Reference Range Interpretation Comments Calcium Lvl (test code = Calcium Lvl) 8.5 8.5-10.5 [facility]2016-09-01 09:58:00 Test Item Value Reference Range Interpretation Comments Potassium Lvl (test code = Potassium 3.9 3.5-5.1 Lvl) [facility]2016-09-01 09:58:00 Test Item Value Reference Range Interpretation Comments Creatinine Lvl (test code = Creatinine 1.22 0.50-1.40 Lvl) [facility]2016-09-01 09:58:00 Test Item Value Reference Range Interpretation Comments Sodium Lvl (test code = Sodium Lvl) 138 135-145 [facility]2016-09-01 09:58:00 Test Item Value Reference Range Interpretation Comments BUN (test code = BUN) 24 7-22 [facility]2016-09-01 09:58:00 Test Item Value Reference Range Interpretation Comments Glucose Lvl (test code = Glucose Lvl) 92 70-99 [facility]2016-09-01 09:58:00 Test Item Value Reference Range Interpretation Comments Phosphorus (test code = Phosphorus) 3.7 2.5-4.5 [facility]2016-09-01 09:58:00 Test Item Value Reference Range Interpretation Comments Magnesium Lvl (test code = Magnesium 2.1 1.8-2.4 Lvl) [facility]2016-09-01 09:58:00 Test Item Value Reference Range Interpretation Comments eGFR (test code = eGFR) 42 [facility]2016-09-01 09:58:00 Test Item Value Reference Range Interpretation Comments AGAP (test code = AGAP) 12.9 10.0-20.0 [facility]2016-09-01 09:58:00 Test Item Value Reference Range Interpretation Comments Chloride Lvl (test code = Chloride Lvl) 104 95-109 [facility]2016-09-01 09:58:00 Test Item Value Reference Range Interpretation Comments CO2 (test code = CO2) 25 24-32 [facility]2016-09-01 09:58:00 Test Item Value Reference Range Interpretation Comments Calcium Lvl (test code = Calcium Lvl) 8.5 8.5-10.5 [facility]2016-09-01 09:58:00 Test Item Value Reference Range Interpretation Comments Potassium Lvl (test code = Potassium 3.9 3.5-5.1 Lvl) [facility]2016-09-01 09:58:00 Test Item Value Reference Range Interpretation Comments Creatinine Lvl (test code = Creatinine 1.22 0.50-1.40 Lvl) [facility]2016-09-01 09:58:00 Test Item Value Reference Range Interpretation Comments Sodium Lvl (test code = Sodium Lvl) 138 135-145 [facility]2016-09-01 09:58:00 Test Item Value Reference Range Interpretation Comments BUN (test code = BUN) 24 7-22 [facility]2016-09-01 09:58:00 Test Item Value Reference Range Interpretation Comments Glucose Lvl (test code = Glucose Lvl) 92 70-99 [facility]2016-09-01 09:58:00 Test Item Value Reference Range Interpretation Comments Phosphorus (test code = Phosphorus) 3.7 2.5-4.5 [facility]2016-09-01 09:58:00 Test Item Value Reference Range Interpretation Comments Magnesium Lvl (test code = Magnesium 2.1 1.8-2.4 Lvl) [facility]2016-09-01 09:58:00 Test Item Value Reference Range Interpretation Comments eGFR (test code = eGFR) 42 [facility]2016-09-01 09:58:00 Test Item Value Reference Range Interpretation Comments AGAP (test code = AGAP) 12.9 10.0-20.0 [facility]2016-09-01 09:58:00 Test Item Value Reference Range Interpretation Comments Chloride Lvl (test code = Chloride Lvl) 104 95-109 [facility]2016-09-01 09:58:00 Test Item Value Reference Range Interpretation Comments CO2 (test code = CO2) 25 24-32 [facility]2016-09-01 09:58:00 Test Item Value Reference Range Interpretation Comments Calcium Lvl (test code = Calcium Lvl) 8.5 8.5-10.5 [facility]2016-09-01 09:58:00 Test Item Value Reference Range Interpretation Comments Potassium Lvl (test code = Potassium 3.9 3.5-5.1 Lvl) [facility]2016-09-01 09:58:00 Test Item Value Reference Range Interpretation Comments Creatinine Lvl (test code = Creatinine 1.22 0.50-1.40 Lvl) [facility]2016-09-01 09:58:00 Test Item Value Reference Range Interpretation Comments Sodium Lvl (test code = Sodium Lvl) 138 135-145 [facility]2016-09-01 09:58:00 Test Item Value Reference Range Interpretation Comments BUN (test code = BUN) 24 7-22 [facility]2016-09-01 09:58:00 Test Item Value Reference Range Interpretation Comments Glucose Lvl (test code = Glucose Lvl) 92 70-99 [facility]2016-09-01 09:58:00 Test Item Value Reference Range Interpretation Comments Phosphorus (test code = Phosphorus) 3.7 2.5-4.5 [facility]2016-09-01 09:58:00 Test Item Value Reference Range Interpretation Comments Magnesium Lvl (test code = Magnesium 2.1 1.8-2.4 Lvl) [facility]2016-09-01 09:58:00 Test Item Value Reference Range Interpretation Comments eGFR (test code = eGFR) 42 [facility]2016-09-01 09:58:00 Test Item Value Reference Range Interpretation Comments AGAP (test code = AGAP) 12.9 10.0-20.0 [facility]2016-09-01 09:58:00 Test Item Value Reference Range Interpretation Comments Chloride Lvl (test code = Chloride Lvl) 104 95-109 [facility]2016-09-01 09:58:00 Test Item Value Reference Range Interpretation Comments CO2 (test code = CO2) 25 24-32 [facility]2016-09-01 09:58:00 Test Item Value Reference Range Interpretation Comments Calcium Lvl (test code = Calcium Lvl) 8.5 8.5-10.5 [facility]2016-09-01 09:58:00 Test Item Value Reference Range Interpretation Comments Potassium Lvl (test code = Potassium 3.9 3.5-5.1 Lvl) [facility]2016-09-01 09:58:00 Test Item Value Reference Range Interpretation Comments Creatinine Lvl (test code = Creatinine 1.22 0.50-1.40 Lvl) [facility]2016-09-01 09:58:00 Test Item Value Reference Range Interpretation Comments Sodium Lvl (test code = Sodium Lvl) 138 135-145 [facility]2016-09-01 09:58:00 Test Item Value Reference Range Interpretation Comments BUN (test code = BUN) 24 7-22 [facility]2016-09-01 09:58:00 Test Item Value Reference Range Interpretation Comments Glucose Lvl (test code = Glucose Lvl) 92 70-99 [facility]2016-09-01 09:58:00 Test Item Value Reference Range Interpretation Comments Phosphorus (test code = Phosphorus) 3.7 2.5-4.5 [facility]2016-09-01 09:58:00 Test Item Value Reference Range Interpretation Comments Magnesium Lvl (test code = Magnesium 2.1 1.8-2.4 Lvl) [facility]2016-09-01 09:58:00 Test Item Value Reference Range Interpretation Comments eGFR (test code = eGFR) 42 [facility]2016-09-01 09:58:00 Test Item Value Reference Range Interpretation Comments AGAP (test code = AGAP) 12.9 10.0-20.0 [facility]2016-09-01 09:58:00 Test Item Value Reference Range Interpretation Comments Chloride Lvl (test code = Chloride Lvl) 104 95-109 [facility]2016-09-01 09:58:00 Test Item Value Reference Range Interpretation Comments CO2 (test code = CO2) 25 24-32 [facility]2016-09-01 09:58:00 Test Item Value Reference Range Interpretation Comments Calcium Lvl (test code = Calcium Lvl) 8.5 8.5-10.5 [facility]2016-09-01 09:58:00 Test Item Value Reference Range Interpretation Comments Potassium Lvl (test code = Potassium 3.9 3.5-5.1 Lvl) [facility]2016-09-01 09:58:00 Test Item Value Reference Range Interpretation Comments Creatinine Lvl (test code = Creatinine 1.22 0.50-1.40 Lvl) [facility]2016-09-01 09:58:00 Test Item Value Reference Range Interpretation Comments Sodium Lvl (test code = Sodium Lvl) 138 135-145 [facility]2016-09-01 09:58:00 Test Item Value Reference Range Interpretation Comments BUN (test code = BUN) 24 7-22 [facility]2016-09-01 09:58:00 Test Item Value Reference Range Interpretation Comments Glucose Lvl (test code = Glucose Lvl) 92 70-99 [facility]2016-09-01 09:58:00 Test Item Value Reference Range Interpretation Comments Phosphorus (test code = Phosphorus) 3.7 2.5-4.5 [facility]2016-09-01 09:58:00 Test Item Value Reference Range Interpretation Comments Magnesium Lvl (test code = Magnesium 2.1 1.8-2.4 Lvl) [facility]2016-09-01 09:58:00 Test Item Value Reference Range Interpretation Comments eGFR (test code = eGFR) 42 [facility]2016-09-01 09:58:00 Test Item Value Reference Range Interpretation Comments AGAP (test code = AGAP) 12.9 10.0-20.0 [facility]2016-09-01 09:58:00 Test Item Value Reference Range Interpretation Comments Chloride Lvl (test code = Chloride Lvl) 104 95-109 [facility]2016-09-01 09:58:00 Test Item Value Reference Range Interpretation Comments CO2 (test code = CO2) - [facility]2016-09-01 09:58:00 Test Item Value Reference Range Interpretation Comments Calcium Lvl (test code = Calcium Lvl) 8.5 8.5-10.5 [facility]2016-09-01 09:58:00 Test Item Value Reference Range Interpretation Comments Potassium Lvl (test code = Potassium 3.9 3.5-5.1 Lvl) [facility]2016-09-01 09:58:00 Test Item Value Reference Range Interpretation Comments Creatinine Lvl (test code = Creatinine 1.22 0.50-1.40 Lvl) [facility]2016-09-01 09:58:00 Test Item Value Reference Range Interpretation Comments Sodium Lvl (test code = Sodium Lvl) 138 135-145 [facility]2016-09-01 09:58:00 Test Item Value Reference Range Interpretation Comments BUN (test code = BUN) 24 7-22 [facility]2016-09-01 09:58:00 Test Item Value Reference Range Interpretation Comments Glucose Lvl (test code = Glucose Lvl) 92 70-99 [facility]2016-09-01 09:58:00 Test Item Value Reference Range Interpretation Comments Phosphorus (test code = Phosphorus) 3.7 2.5-4.5 [facility]2016-09-01 09:58:00 Test Item Value Reference Range Interpretation Comments Magnesium Lvl (test code = Magnesium 2.1 1.8-2.4 Lvl) [facility]2016-09-01 09:58:00 Test Item Value Reference Range Interpretation Comments eGFR (test code = eGFR) 42 [facility]2016-09-01 09:58:00 Test Item Value Reference Range Interpretation Comments AGAP (test code = AGAP) 12.9 10.0-20.0 [facility]2016-09-01 09:58:00 Test Item Value Reference Range Interpretation Comments Chloride Lvl (test code = Chloride Lvl) 104 95-109 [facility]2016-09-01 09:58:00 Test Item Value Reference Range Interpretation Comments CO2 (test code = CO2) -32 [facility]2016-09-01 09:58:00 Test Item Value Reference Range Interpretation Comments Calcium Lvl (test code = Calcium Lvl) 8.5 8.5-10.5 [facility]2016-09-01 09:58:00 Test Item Value Reference Range Interpretation Comments Potassium Lvl (test code = Potassium 3.9 3.5-5.1 Lvl) [facility]2016-09-01 09:58:00 Test Item Value Reference Range Interpretation Comments Creatinine Lvl (test code = Creatinine 1.22 0.50-1.40 Lvl) [facility]2016-09-01 09:58:00 Test Item Value Reference Range Interpretation Comments Sodium Lvl (test code = Sodium Lvl) 138 135-145 [facility]2016-09-01 09:58:00 Test Item Value Reference Range Interpretation Comments BUN (test code = BUN) 24 7-22 [facility]2016-09-01 09:58:00 Test Item Value Reference Range Interpretation Comments Glucose Lvl (test code = Glucose Lvl) 92 70-99 [facility]2016-09-01 09:58:00 Test Item Value Reference Range Interpretation Comments Phosphorus (test code = Phosphorus) 3.7 2.5-4.5 [facility]2016-09-01 09:58:00 Test Item Value Reference Range Interpretation Comments Magnesium Lvl (test code = Magnesium 2.1 1.8-2.4 Lvl) [facility]2016-09-01 09:58:00 Test Item Value Reference Range Interpretation Comments eGFR (test code = eGFR) 42 [facility]2016-09-01 09:58:00 Test Item Value Reference Range Interpretation Comments AGAP (test code = AGAP) 12.9 10.0-20.0 [facility]2016-09-01 09:58:00 Test Item Value Reference Range Interpretation Comments Chloride Lvl (test code = Chloride Lvl) 104 95-109 [facility]2016-09-01 09:58:00 Test Item Value Reference Range Interpretation Comments CO2 (test code = CO2) 25 24-32 [facility]2016-09-01 09:58:00 Test Item Value Reference Range Interpretation Comments Calcium Lvl (test code = Calcium Lvl) 8.5 8.5-10.5 [facility]2016-09-01 09:58:00 Test Item Value Reference Range Interpretation Comments Potassium Lvl (test code = Potassium 3.9 3.5-5.1 Lvl) [facility]2016-09-01 09:58:00 Test Item Value Reference Range Interpretation Comments Creatinine Lvl (test code = Creatinine 1.22 0.50-1.40 Lvl) [facility]2016-09-01 09:58:00 Test Item Value Reference Range Interpretation Comments Sodium Lvl (test code = Sodium Lvl) 138 135-145 [facility]2016-09-01 09:58:00 Test Item Value Reference Range Interpretation Comments BUN (test code = BUN) 24 7-22 [facility]2016-09-01 09:58:00 Test Item Value Reference Range Interpretation Comments Glucose Lvl (test code = Glucose Lvl) 92 70-99 [facility]2016-09-01 09:58:00 Test Item Value Reference Range Interpretation Comments Phosphorus (test code = Phosphorus) 3.7 2.5-4.5 [facility]2016-09-01 09:58:00 Test Item Value Reference Range Interpretation Comments Magnesium Lvl (test code = Magnesium 2.1 1.8-2.4 Lvl) [facility]2016-09-01 09:58:00 Test Item Value Reference Range Interpretation Comments eGFR (test code = eGFR) 42 [facility]2016-09-01 09:58:00 Test Item Value Reference Range Interpretation Comments AGAP (test code = AGAP) 12.9 10.0-20.0 [facility]2016-09-01 09:58:00 Test Item Value Reference Range Interpretation Comments Chloride Lvl (test code = Chloride Lvl) 104 95-109 [facility]2016-09-01 09:58:00 Test Item Value Reference Range Interpretation Comments CO2 (test code = CO2) 25 24-32 [facility]2016-09-01 09:58:00 Test Item Value Reference Range Interpretation Comments Calcium Lvl (test code = Calcium Lvl) 8.5 8.5-10.5 [facility]2016-09-01 09:58:00 Test Item Value Reference Range Interpretation Comments Potassium Lvl (test code = Potassium 3.9 3.5-5.1 Lvl) [facility]2016-09-01 09:58:00 Test Item Value Reference Range Interpretation Comments Creatinine Lvl (test code = Creatinine 1.22 0.50-1.40 Lvl) [facility]2016-09-01 09:58:00 Test Item Value Reference Range Interpretation Comments Sodium Lvl (test code = Sodium Lvl) 138 135-145 [facility]2016-09-01 09:58:00 Test Item Value Reference Range Interpretation Comments BUN (test code = BUN) 24 7-22 [facility]2016-09-01 09:58:00 Test Item Value Reference Range Interpretation Comments Glucose Lvl (test code = Glucose Lvl) 92 70-99 [facility]2016-09-01 09:58:00 Test Item Value Reference Range Interpretation Comments Phosphorus (test code = Phosphorus) 3.7 2.5-4.5 [facility]2016-09-01 09:58:00 Test Item Value Reference Range Interpretation Comments Magnesium Lvl (test code = Magnesium 2.1 1.8-2.4 Lvl) [facility]2016-09-01 09:58:00 Test Item Value Reference Range Interpretation Comments eGFR (test code = eGFR) 42 [facility]2016-09-01 09:58:00 Test Item Value Reference Range Interpretation Comments AGAP (test code = AGAP) 12.9 10.0-20.0 [facility]2016-09-01 09:58:00 Test Item Value Reference Range Interpretation Comments Chloride Lvl (test code = Chloride Lvl) 104 95-109 [facility]2016-09-01 09:58:00 Test Item Value Reference Range Interpretation Comments CO2 (test code = CO2) 25 24-32 [facility]2016-09-01 09:58:00 Test Item Value Reference Range Interpretation Comments Calcium Lvl (test code = Calcium Lvl) 8.5 8.5-10.5 [facility]2016-09-01 09:58:00 Test Item Value Reference Range Interpretation Comments Potassium Lvl (test code = Potassium 3.9 3.5-5.1 Lvl) [facility]2016-09-01 09:58:00 Test Item Value Reference Range Interpretation Comments Creatinine Lvl (test code = Creatinine 1.22 0.50-1.40 Lvl) [facility]2016-09-01 09:58:00 Test Item Value Reference Range Interpretation Comments Sodium Lvl (test code = Sodium Lvl) 138 135-145 [facility]2016-09-01 09:58:00 Test Item Value Reference Range Interpretation Comments BUN (test code = BUN) 24 7-22 [facility]2016-09-01 09:58:00 Test Item Value Reference Range Interpretation Comments Glucose Lvl (test code = Glucose Lvl) 92 70-99 [facility]2016-09-01 09:58:00 Test Item Value Reference Range Interpretation Comments Phosphorus (test code = Phosphorus) 3.7 2.5-4.5 [facility]2016-09-01 09:58:00 Test Item Value Reference Range Interpretation Comments Magnesium Lvl (test code = Magnesium 2.1 1.8-2.4 Lvl) [facility]2016-09-01 09:58:00 Test Item Value Reference Range Interpretation Comments eGFR (test code = eGFR) 42 [facility]2016-09-01 09:58:00 Test Item Value Reference Range Interpretation Comments AGAP (test code = AGAP) 12.9 10.0-20.0 [facility]2016-09-01 09:58:00 Test Item Value Reference Range Interpretation Comments Chloride Lvl (test code = Chloride Lvl) 104 95-109 [facility]2016-09-01 09:58:00 Test Item Value Reference Range Interpretation Comments CO2 (test code = CO2) 25 24-32 [facility]2016-09-01 09:58:00 Test Item Value Reference Range Interpretation Comments Calcium Lvl (test code = Calcium Lvl) 8.5 8.5-10.5 [facility]2016-09-01 09:58:00 Test Item Value Reference Range Interpretation Comments Potassium Lvl (test code = Potassium 3.9 3.5-5.1 Lvl) [facility]2016-09-01 09:58:00 Test Item Value Reference Range Interpretation Comments Creatinine Lvl (test code = Creatinine 1.22 0.50-1.40 Lvl) [facility] [id number] 09:58:00 Test Item Value Reference Range Interpretation Comments Sodium Lvl (test code = Sodium Lvl) 138 135-145 [facility] [id number] 09:58:00 Test Item Value Reference Range Interpretation Comments BUN (test code = BUN) 24 7-22 [facility] [id number] 09:58:00 Test Item Value Reference Range Interpretation Comments Glucose Lvl (test code = Glucose Lvl) 92 70-99 [facility] [id number] 14:11:00 Test Item Value Reference Range Interpretation Comments Aldosterone (test code = Aldosterone) no [facility] [id number] 14:11:00 Test Item Value Reference Range Interpretation Comments Aldosterone (test code = Aldosterone) no [facility]2016-08-31 14:11:00 Test Item Value Reference Range Interpretation Comments Aldosterone (test code = Aldosterone) no [facility] [id number] 14:11:00 Test Item Value Reference Range Interpretation Comments Aldosterone (test code = Aldosterone) no [facility] [id number] 14:11:00 Test Item Value Reference Range Interpretation Comments Aldosterone (test code = Aldosterone) no [facility] [id number] 14:11:00 Test Item Value Reference Range Interpretation Comments Aldosterone (test code = Aldosterone) no [facility] [id number] 14:11:00 Test Item Value Reference Range Interpretation Comments Aldosterone (test code = Aldosterone) no [facility] [id number] 14:11:00 Test Item Value Reference Range Interpretation Comments Aldosterone (test code = Aldosterone) no [facility] [id number] 14:11:00 Test Item Value Reference Range Interpretation Comments Aldosterone (test code = Aldosterone) no [facility] [id number] 14:11:00 Test Item Value Reference Range Interpretation Comments Aldosterone (test code = Aldosterone) no [facility] [id number] 14:11:00 Test Item Value Reference Range Interpretation Comments Aldosterone (test code = Aldosterone) no [facility] [id number] 14:11:00 Test Item Value Reference Range Interpretation Comments Aldosterone (test code = Aldosterone) no gt [place] [id number] 13:47:00 Test Item Value Reference Range Interpretation Comments Cortisol (test code = Cortisol) 8.6 [place] [id number] 13:47:00 Test Item Value Reference Range Interpretation Comments Cortisol (test code = Cortisol) 8.6 [place] [id number] 13:47:00 Test Item Value Reference Range Interpretation Comments Cortisol (test code = Cortisol) 8.6 [place] [id number] 13:47:00 Test Item Value Reference Range Interpretation Comments Cortisol (test code = Cortisol) 8.6 [facility]QS0837[facility]83 13:47:00 Test Item Value Reference Range Interpretation Comments Cortisol (test code = Cortisol) 8.6 [place] [id number] 13:47:00 Test Item Value Reference Range Interpretation Comments Cortisol (test code = Cortisol) 8.6 [facility]cv[facility]rcXESLPFPPMCSIL2579-51-79 13:47:00 Test Item Value Reference Range Interpretation Comments Cortisol (test code = Cortisol) 8.6 [facility] HospitalLvuwfseDZLZCJQDZVCRU5800-22-41 13:47:00 Test Item Value Reference Range Interpretation Comments Cortisol (test code = Cortisol) 8.6 [facility]AggaqufJNXURHTSTBYJO1336-38-35 13:47:00 Test Item Value Reference Range Interpretation Comments Cortisol (test code = Cortisol) 8.6 [facility] HospitalMcfgenfEDYPLKIOHTDUV6773-10-88 13:47:00 Test Item Value Reference Range Interpretation Comments Cortisol (test code = Cortisol) 8.6 [facility]LleuhmmZJKVUYSUQLYFR5680-58-21 13:47:00 Test Item Value Reference Range Interpretation Comments Cortisol (test code = Cortisol) 8.6 [facility] HospitalWntyeboGXDRYEYABXJNK0848-59-32 13:47:00 Test Item Value Reference Range Interpretation Comments Cortisol (test code = Cortisol) 8.6 [facility] [id number] 07:59:00 Test Item Value Reference Range Interpretation Comments Phosphorus (test code = Phosphorus) 3.3 2.5-4.5 [facility] [id number] 07:59:00 Test Item Value Reference Range Interpretation Comments Magnesium Lvl (test code = Magnesium 1.8 1.8-2.4 Lvl) [facility]SzowgjkVQRJRJVJVEEB1696-47-33 07:59:00 Test Item Value Reference Range Interpretation Comments AGAP (test code = AGAP) 11.2 10.0-20.0 [facility] HospitalYxjinydDJJVBIBKBKUZ8821-56-81 07:59:00 Test Item Value Reference Range Interpretation Comments eGFR (test code = eGFR) 49 [facility] HospitalUxitwibIHAHWJBZVNJJ7290-69-20 07:59:00 Test Item Value Reference Range Interpretation Comments Calcium Lvl (test code = Calcium Lvl) 8.4 8.5-10.5 [facility] HospitalZhtzxmwPYTLJPGWYCNL2157-10-84 07:59:00 Test Item Value Reference Range Interpretation Comments Potassium Lvl (test code = Potassium 4.2 3.5-5.1 Lvl) [facility] HospitalPensqgtBWEPOYRPVFVM6954-18-14 07:59:00 Test Item Value Reference Range Interpretation Comments Chloride Lvl (test code = Chloride Lvl) 105 95-109 [facility] HospitalCnmavxaEKPNHPVBPFCW8136-08-55 07:59:00 Test Item Value Reference Range Interpretation Comments CO2 (test code = CO2) 28 24-32 [facility] HospitalZjgjsblPJBYNCSOJWKH0335-18-51 07:59:00 Test Item Value Reference Range Interpretation Comments BUN (test code = BUN) 22 7-22 [facility] HospitalTotnddvKNNPTFKLESYZ5250-45-02 07:59:00 Test Item Value Reference Range Interpretation Comments Glucose Lvl (test code = Glucose Lvl) 109 70-99 [facility] HospitalYbiclqtAGFXRATUWKAU0752-27-99 07:59:00 Test Item Value Reference Range Interpretation Comments Creatinine Lvl (test code = Creatinine 1.07 0.50-1.40 Lvl) [facility] HospitalQnynxtuDNLHWMJQVWLV3721-80-13 07:59:00 Test Item Value Reference Range Interpretation Comments Sodium Lvl (test code = Sodium Lvl) 140 135-145 [facility] LakeLtmagjfQRTVTELLMK5036-09-24 07:59:00 Test Item Value Reference Range Interpretation Comments WBC (test code = WBC) 7.3 3.7-10.4 [facility] LakeMkwqocxWRRABQLOIU2834-96-03 07:59:00 Test Item Value Reference Range Interpretation Comments MCH (test code = MCH) 29.6 pg 27.0-31.0 [facility] LakeXmyctnzOZMAGFLXNY1084-73-30 07:59:00 Test Item Value Reference Range Interpretation Comments MCV (test code = MCV) 88.9 80.0-98.0 [facility] LakeIgjzqrnFREAXZIGLR3723-71-49 07:59:00 Test Item Value Reference Range Interpretation Comments Hct (test code = Hct) 36.7 36.0-48.0 [facility] LakeOmtyqpzKBYPAGYELX6805-99-96 07:59:00 Test Item Value Reference Range Interpretation Comments Hgb (test code = Hgb) 12.2 12.0-16.0 [facility] LakeDgcorsjYJTBGKQPYT1097-58-74 07:59:00 Test Item Value Reference Range Interpretation Comments RBC (test code = RBC) 4.12 4.20-5.40 [facility] LakeVggmswpEEULXKRQOD4191-11-64 07:59:00 Test Item Value Reference Range Interpretation Comments MPV (test code = MPV) 7.3 7.4-10.4 [facility] LakeEkmsxgaVKNDMLKFME9762-08-04 07:59:00 Test Item Value Reference Range Interpretation Comments Platelet (test code = Platelet) 290 133-450 [facility] LakeVinftupYXYEDDZDGD4686-05-51 07:59:00 Test Item Value Reference Range Interpretation Comments RDW (test code = RDW) 13.8 11.5-14.5 [facility] LakeBjhpydsJWYNXHIWAL7977-40-84 07:59:00 Test Item Value Reference Range Interpretation Comments MCHC (test code = MCHC) 33.3 32.0-36.0 [facility] LakeZyidmraTMCPWVKDXQ0850-63-15 07:59:00 Test Item Value Reference Range Interpretation Comments Lymphocytes # (test code = Lymphocytes 1.6 1.0-5.5 #) [facility] LakeEeyxmjiKYDKQVNWNC8104-00-74 07:59:00 Test Item Value Reference Range Interpretation Comments Segs-Bands # (test code = Segs-Bands #) 4.8 1.5-8.1 [facility] LakeBujjgoyEMTFMTQMDX5187-38-51 07:59:00 Test Item Value Reference Range Interpretation Comments Eosinophils # (test code 0.2 See_Comment [A utomated message] The = Eosinophils #) system whic h generated this result tra nsmitted reference range : <=0.5. The reference r robbie was not used to int erpret this result as normal/abnormal . [facility] LakeVjnyqqvWWDAGKXZZP6376-81-88 07:59:00 Test Item Value Reference Range Interpretation Comments Monocytes # (test code 0.7 See_Comment [Aut omated message] The = Monocytes #) system which generated this result tra nsmitted reference range : <=0.8. The reference r robbie was not used to int erpret this result as normal/abnormal . [facility] LakeHdwmkubPROJZGTNSL1767-60-56 07:59:00 Test Item Value Reference Range Interpretation Comments Basophils # (test code 0.1 See_Comment [Aut omated message] The = Basophils #) system which generated this result tra nsmitted reference range : <=0.2. The reference r robbie was not used to int erpret this result as normal/abnormal . [facility] LakeBfvdapsWAFZIMRUWT7206-81-41 07:59:00 Test Item Value Reference Range Interpretation Comments Lymphocytes (test code = Lymphocytes) 21.7 20.0-40.0 [facility] LakeIguxvsyNCOEFZKAMJ8405-27-10 07:59:00 Test Item Value Reference Range Interpretation Comments Segs (test code = Segs) 65.6 45.0-75.0 [facility] LakeRtyfdjjKTEUUBHJMN6992-57-65 07:59:00 Test Item Value Reference Range Interpretation Comments Basophils (test code = 0.8 See_Comment [Aut omated message] The Basophils) system which ge nerated this result tra nsmitted reference range : <=1.0. The reference r robbie was not used to int erpret this result as normal/abnormal . [facility] LakeRojzfdkJZXFCKLVNC4107-41-01 07:59:00 Test Item Value Reference Range Interpretation Comments Eosinophils (test code = 2.1 See_Comment [A utomated message] The Eosinophils) system which ge nerated this result tra nsmitted reference range : <=4.0. The reference r robbie was not used to int erpret this result as normal/abnormal . [facility] LakeOjpshfuSFYVRFMWDS6467-98-45 07:59:00 Test Item Value Reference Range Interpretation Comments Monocytes (test code = Monocytes) 9.8 2.0-12.0 [facility] JMKQR5929-13-53 07:59:00 Test Item Value Reference Range Interpretation Comments Phosphorus (test code = Phosphorus) 3.3 2.5-4.5 [facility] [id number] 07:59:00 Test Item Value Reference Range Interpretation Comments Magnesium Lvl (test code = Magnesium 1.8 1.8-2.4 Lvl) [facility] HospitalYuasxiwKCWHYVNMGONK4911-15-04 07:59:00 Test Item Value Reference Range Interpretation Comments AGAP (test code = AGAP) 11.2 10.0-20.0 [facility] HospitalYyquspaKRJBVJEAUJVM7540-99-98 07:59:00 Test Item Value Reference Range Interpretation Comments eGFR (test code = eGFR) 49 [facility] HospitalQuhnyxxJHFPEVNMKZUS3312-63-41 07:59:00 Test Item Value Reference Range Interpretation Comments Calcium Lvl (test code = Calcium Lvl) 8.4 8.5-10.5 [facility] HospitalGuhaeisYUCHBRDXBKZX9473-08-65 07:59:00 Test Item Value Reference Range Interpretation Comments Potassium Lvl (test code = Potassium 4.2 3.5-5.1 Lvl) [facility] HospitalRfedrqdFTDILXLRAOLY9651-09-16 07:59:00 Test Item Value Reference Range Interpretation Comments Chloride Lvl (test code = Chloride Lvl) 105 95-109 [facility] HospitalFusdmwaUJWJGEOJPAPG8978-22-94 07:59:00 Test Item Value Reference Range Interpretation Comments CO2 (test code = CO2) 28 24-32 [facility] HospitalGruelexRRDFOUUITGRT0590-55-77 07:59:00 Test Item Value Reference Range Interpretation Comments BUN (test code = BUN) 22 7-22 [facility] HospitalNvwvyezFDXZUXBHQHNC3433-95-11 07:59:00 Test Item Value Reference Range Interpretation Comments Glucose Lvl (test code = Glucose Lvl) 109 70-99 [facility] HospitalTwargnhTXDLTTGULCFL0365-52-37 07:59:00 Test Item Value Reference Range Interpretation Comments Creatinine Lvl (test code = Creatinine 1.07 0.50-1.40 Lvl) [facility] HospitalIkgqjvtZLKKDYLGXJWP3413-77-88 07:59:00 Test Item Value Reference Range Interpretation Comments Sodium Lvl (test code = Sodium Lvl) 140 135-145 [facility] LakeDgzkgaxGFBQBJPWGW5054-88-01 07:59:00 Test Item Value Reference Range Interpretation Comments WBC (test code = WBC) 7.3 3.7-10.4 [facility] LakeDkzxanxJHARCQDLTE6583-37-39 07:59:00 Test Item Value Reference Range Interpretation Comments MCH (test code = MCH) 29.6 pg 27.0-31.0 [facility] LakeDlpfdwvGFOWFEPEWQ1712-06-55 07:59:00 Test Item Value Reference Range Interpretation Comments MCV (test code = MCV) 88.9 80.0-98.0 [facility] LakeJuclbidJMENIEOMGA3177-66-61 07:59:00 Test Item Value Reference Range Interpretation Comments Hct (test code = Hct) 36.7 36.0-48.0 [facility] LakeTaiyobhTNWDLZHIDA2898-31-31 07:59:00 Test Item Value Reference Range Interpretation Comments Hgb (test code = Hgb) 12.2 12.0-16.0 [facility] LakeAjvzwtjHLZIKPBPIW2929-28-11 07:59:00 Test Item Value Reference Range Interpretation Comments RBC (test code = RBC) 4.12 4.20-5.40 [facility] LakeUjfnyefKOPNBZLTFV8629-66-25 07:59:00 Test Item Value Reference Range Interpretation Comments MPV (test code = MPV) 7.3 7.4-10.4 [facility] LakePlzyxfuFSPGHDAGAC1679-63-18 07:59:00 Test Item Value Reference Range Interpretation Comments Platelet (test code = Platelet) 290 133-450 [facility] LakeHwexfnxETUVTCKESM8285-15-64 07:59:00 Test Item Value Reference Range Interpretation Comments RDW (test code = RDW) 13.8 11.5-14.5 [facility] LakeQzxssruFELMVHSHKA3268-63-14 07:59:00 Test Item Value Reference Range Interpretation Comments MCHC (test code = MCHC) 33.3 32.0-36.0 [facility] LakeCcmdydoCFZGDIVVPG6216-60-88 07:59:00 Test Item Value Reference Range Interpretation Comments Lymphocytes # (test code = Lymphocytes 1.6 1.0-5.5 #) [facility] LakeDnhffsmSZEPSURSQR6098-15-35 07:59:00 Test Item Value Reference Range Interpretation Comments Segs-Bands # (test code = Segs-Bands #) 4.8 1.5-8.1 [facility] LakeGpykqpvUYYTYSUNVU6627-27-71 07:59:00 Test Item Value Reference Range Interpretation Comments Eosinophils # (test code 0.2 See_Comment [A utomated message] The = Eosinophils #) system whic h generated this result tra nsmitted reference range : <=0.5. The reference r robbie was not used to int erpret this result as normal/abnormal . [facility] LakeIvgjjyvATEFRLCHTO9547-85-98 07:59:00 Test Item Value Reference Range Interpretation Comments Monocytes # (test code 0.7 See_Comment [Aut omated message] The = Monocytes #) system which generated this result tra nsmitted reference range : <=0.8. The reference r robbie was not used to int erpret this result as normal/abnormal . [facility] LakePzlrijxASIOSPQDLS5414-34-77 07:59:00 Test Item Value Reference Range Interpretation Comments Basophils # (test code 0.1 See_Comment [Aut omated message] The = Basophils #) system which generated this result tra nsmitted reference range : <=0.2. The reference r robbie was not used to int erpret this result as normal/abnormal . [facility] LakeKsobqmwUBWLMHVPPQ1666-43-38 07:59:00 Test Item Value Reference Range Interpretation Comments Lymphocytes (test code = Lymphocytes) 21.7 20.0-40.0 [facility] LakeWfffdubATTGJEIOIA5769-28-48 07:59:00 Test Item Value Reference Range Interpretation Comments Segs (test code = Segs) 65.6 45.0-75.0 [facility] LakeEwlpuydXHZDXOAXRC7943-28-49 07:59:00 Test Item Value Reference Range Interpretation Comments Basophils (test code = 0.8 See_Comment [Aut omated message] The Basophils) system which ge nerated this result tra nsmitted reference range : <=1.0. The reference r robbie was not used to int erpret this result as normal/abnormal . [facility] LakeOvsykgqPITOYZACJW6047-66-28 07:59:00 Test Item Value Reference Range Interpretation Comments Eosinophils (test code = 2.1 See_Comment [A utomated message] The Eosinophils) system which ge nerated this result tra nsmitted reference range : <=4.0. The reference r robbie was not used to int erpret this result as normal/abnormal . [facility] LakeWheotfaRAYLPUHOJF8788-72-46 07:59:00 Test Item Value Reference Range Interpretation Comments Monocytes (test code = Monocytes) 9.8 2.0-12.0 [facility] TILOI3754-65-63 07:59:00 Test Item Value Reference Range Interpretation Comments Phosphorus (test code = Phosphorus) 3.3 2.5-4.5 [facility]2016-08-31 07:59:00 Test Item Value Reference Range Interpretation Comments Magnesium Lvl (test code = Magnesium 1.8 1.8-2.4 Lvl) [facility] HospitalBmlaoeyREVYNBTOOXFW5486-70-61 07:59:00 Test Item Value Reference Range Interpretation Comments AGAP (test code = AGAP) 11.2 10.0-20.0 [facility] HospitalKzqcwefYJQDIRKDAUVP0664-44-50 07:59:00 Test Item Value Reference Range Interpretation Comments eGFR (test code = eGFR) 49 [facility] HospitalOxktgxkKZYCVPAQTEOH0696-59-78 07:59:00 Test Item Value Reference Range Interpretation Comments Calcium Lvl (test code = Calcium Lvl) 8.4 8.5-10.5 [facility] HospitalCtjgfazZYBSXTNRPYLM0126-24-09 07:59:00 Test Item Value Reference Range Interpretation Comments Potassium Lvl (test code = Potassium 4.2 3.5-5.1 Lvl) [facility] HospitalUsehyuySFWAMWUPLGEH0029-89-31 07:59:00 Test Item Value Reference Range Interpretation Comments Chloride Lvl (test code = Chloride Lvl) 105 95-109 [facility] HospitalYgpczymDLEAFQWOZLWS5792-41-90 07:59:00 Test Item Value Reference Range Interpretation Comments CO2 (test code = CO2) 28 24-32 [facility] HospitalZnmzqeePQUIJGWSHEYH2457-21-68 07:59:00 Test Item Value Reference Range Interpretation Comments BUN (test code = BUN) 22 7-22 [facility] HospitalIunafbsLHGHNLHUVWCC2837-30-16 07:59:00 Test Item Value Reference Range Interpretation Comments Glucose Lvl (test code = Glucose Lvl) 109 70-99 [facility] HospitalVocycgkWYEGEXEDVSXP3595-48-99 07:59:00 Test Item Value Reference Range Interpretation Comments Creatinine Lvl (test code = Creatinine 1.07 0.50-1.40 Lvl) [facility] HospitalDbnpofnFQGECGAVFAFY7576-70-79 07:59:00 Test Item Value Reference Range Interpretation Comments Sodium Lvl (test code = Sodium Lvl) 140 135-145 [facility] LakeDyxkkccTTXETAJFEN3416-54-92 07:59:00 Test Item Value Reference Range Interpretation Comments WBC (test code = WBC) 7.3 3.7-10.4 [facility] LakeUkxfajmUNMXHKLOTG8970-36-94 07:59:00 Test Item Value Reference Range Interpretation Comments MCH (test code = MCH) 29.6 pg 27.0-31.0 [facility] LakeEjvftaqKBDVFQPASN8440-87-29 07:59:00 Test Item Value Reference Range Interpretation Comments MCV (test code = MCV) 88.9 80.0-98.0 [facility] LakeOreblafJJEMRCYPFA0048-54-52 07:59:00 Test Item Value Reference Range Interpretation Comments Hct (test code = Hct) 36.7 36.0-48.0 [facility] LakeXmmblwpMDHCPKNZVN2306-32-58 07:59:00 Test Item Value Reference Range Interpretation Comments Hgb (test code = Hgb) 12.2 12.0-16.0 [facility] LakeJjnrgmzGXIKKFADIV7087-63-36 07:59:00 Test Item Value Reference Range Interpretation Comments RBC (test code = RBC) 4.12 4.20-5.40 [facility] LakeAtecaaiQYYLMYVBWG4905-04-90 07:59:00 Test Item Value Reference Range Interpretation Comments MPV (test code = MPV) 7.3 7.4-10.4 [facility] LakeWtnonbeJCZFZCLNWM8860-78-70 07:59:00 Test Item Value Reference Range Interpretation Comments Platelet (test code = Platelet) 290 133-450 [facility] LakePybaqeiSDHBAODFSM3342-71-04 07:59:00 Test Item Value Reference Range Interpretation Comments RDW (test code = RDW) 13.8 11.5-14.5 [facility] LakeEingwqpKBJZNJEGAI8554-70-40 07:59:00 Test Item Value Reference Range Interpretation Comments MCHC (test code = MCHC) 33.3 32.0-36.0 [facility] LakeVbiagvfPTTEJSHXVZ9479-82-46 07:59:00 Test Item Value Reference Range Interpretation Comments Lymphocytes # (test code = Lymphocytes 1.6 1.0-5.5 #) [facility] LakeZdhiwtrJXDXRECAIP9115-39-87 07:59:00 Test Item Value Reference Range Interpretation Comments Segs-Bands # (test code = Segs-Bands #) 4.8 1.5-8.1 [facility] LakeXagjyvfCORYKHMUFH9600-22-39 07:59:00 Test Item Value Reference Range Interpretation Comments Eosinophils # (test code 0.2 See_Comment [A utomated message] The = Eosinophils #) system [facility] generated this result tra nsmitted reference range : <=0.5. The reference r robbie was not used to int erpret this result as normal/abnormal . [facility] LakeAbbcydnAKLZPMTYEG8198-88-37 07:59:00 Test Item Value Reference Range Interpretation Comments Monocytes # (test code 0.7 See_Comment [Aut omated message] The = Monocytes #) system which generated this result tra nsmitted reference range : <=0.8. The reference r robbie was not used to int erpret this result as normal/abnormal . [facility] LakeChdomeoFYHMALPTIL4668-95-03 07:59:00 Test Item Value Reference Range Interpretation Comments Basophils # (test code 0.1 See_Comment [Aut omated message] The = Basophils #) system which generated this result tra nsmitted reference range : <=0.2. The reference r robbie was not used to int erpret this result as normal/abnormal . [facility] LakeBciarmyCILDZEWGDI5405-88-67 07:59:00 Test Item Value Reference Range Interpretation Comments Lymphocytes (test code = Lymphocytes) 21.7 20.0-40.0 [facility] LakeJjtdnvoSJICUETJGH9198-70-27 07:59:00 Test Item Value Reference Range Interpretation Comments Segs (test code = Segs) 65.6 45.0-75.0 [facility] LakeFglceriZJYNVJXSYC7285-90-92 07:59:00 Test Item Value Reference Range Interpretation Comments Basophils (test code = 0.8 See_Comment [Aut omated message] The Basophils) system which ge nerated this result tra nsmitted reference range : <=1.0. The reference r robbie was not used to int erpret this result as normal/abnormal . [facility] LakeEwzmaajDMQBYFSQXQ8601-48-96 07:59:00 Test Item Value Reference Range Interpretation Comments Eosinophils (test code = 2.1 See_Comment [A utomated message] The Eosinophils) system which ge nerated this result tra nsmitted reference range : <=4.0. The reference r robbie was not used to int erpret this result as normal/abnormal . [facility] LakeXlhtbnmQVYLQRJERF6018-87-35 07:59:00 Test Item Value Reference Range Interpretation Comments Monocytes (test code = Monocytes) 9.8 2.0-12.0 [facility]2016-08-31 07:59:00 Test Item Value Reference Range Interpretation Comments Phosphorus (test code = Phosphorus) 3.3 2.5-4.5 [facility]2016-08-31 07:59:00 Test Item Value Reference Range Interpretation Comments Magnesium Lvl (test code = Magnesium 1.8 1.8-2.4 Lvl) [facility] HospitalFerrqcrVYNYRDTNXOSY5660-38-29 07:59:00 Test Item Value Reference Range Interpretation Comments AGAP (test code = AGAP) 11.2 10.0-20.0 [facility] HospitalUixvcefDABHQKROJUXA5483-87-14 07:59:00 Test Item Value Reference Range Interpretation Comments eGFR (test code = eGFR) 49 [facility] HospitalZlvrcfrBAXDQHOYFMUJ8825-04-36 07:59:00 Test Item Value Reference Range Interpretation Comments Calcium Lvl (test code = Calcium Lvl) 8.4 8.5-10.5 [facility] HospitalWtndszsGDNUSWBGLYVU7669-52-89 07:59:00 Test Item Value Reference Range Interpretation Comments Potassium Lvl (test code = Potassium 4.2 3.5-5.1 Lvl) [facility] HospitalJffklhfANLQAGROKATF6723-59-15 07:59:00 Test Item Value Reference Range Interpretation Comments Chloride Lvl (test code = Chloride Lvl) 105 95-109 [facility] HospitalPnvtpvyLVGUGKEZBHTG7685-94-60 07:59:00 Test Item Value Reference Range Interpretation Comments CO2 (test code = CO2) 28 24-32 [facility] HospitalGzoibacHCQYMEOEYVTO8740-84-64 07:59:00 Test Item Value Reference Range Interpretation Comments BUN (test code = BUN) 22 7-22 [facility] HospitalHdcpeglITALNICYODMZ4533-81-88 07:59:00 Test Item Value Reference Range Interpretation Comments Glucose Lvl (test code = Glucose Lvl) 109 70-99 [facility] HospitalCvxxuzaBNDMZTPADLHK0944-68-01 07:59:00 Test Item Value Reference Range Interpretation Comments Creatinine Lvl (test code = Creatinine 1.07 0.50-1.40 Lvl) [facility] HospitalYesrstuGPDSNAVYDKXN5587-61-35 07:59:00 Test Item Value Reference Range Interpretation Comments Sodium Lvl (test code = Sodium Lvl) 140 135-145 [facility] LakeGvtscnoYDFCBZWGWB0510-73-71 07:59:00 Test Item Value Reference Range Interpretation Comments WBC (test code = WBC) 7.3 3.7-10.4 [facility] LakeAypvbbbQBGJGFBRHD5857-39-73 07:59:00 Test Item Value Reference Range Interpretation Comments MCH (test code = MCH) 29.6 pg 27.0-31.0 [facility] LakeJnffdjyHEEZDZROSH0174-77-82 07:59:00 Test Item Value Reference Range Interpretation Comments MCV (test code = MCV) 88.9 80.0-98.0 [facility] LakeQzqzkcuAPHNDVEQAT2995-45-46 07:59:00 Test Item Value Reference Range Interpretation Comments Hct (test code = Hct) 36.7 36.0-48.0 [facility] LakeRwukvfeGOHPVYUBQC9907-54-36 07:59:00 Test Item Value Reference Range Interpretation Comments Hgb (test code = Hgb) 12.2 12.0-16.0 [facility] LakeRldilarMCFTTFQOBG5178-41-40 07:59:00 Test Item Value Reference Range Interpretation Comments RBC (test code = RBC) 4.12 4.20-5.40 [facility] LakeNjqhvfpEGZEDRTCMT1112-74-43 07:59:00 Test Item Value Reference Range Interpretation Comments MPV (test code = MPV) 7.3 7.4-10.4 [facility] LakeJnqwzskAZSMYPTCXO5982-24-70 07:59:00 Test Item Value Reference Range Interpretation Comments Platelet (test code = Platelet) 290 133-450 [facility] LakeQciybluBRGQHYPMQG1049-22-17 07:59:00 Test Item Value Reference Range Interpretation Comments RDW (test code = RDW) 13.8 11.5-14.5 [facility] LakeSlfpfifCLBNKZGECH5398-37-92 07:59:00 Test Item Value Reference Range Interpretation Comments MCHC (test code = MCHC) 33.3 32.0-36.0 [facility] LakeVvtkzopJDPKFDPIJZ0614-32-56 07:59:00 Test Item Value Reference Range Interpretation Comments Lymphocytes # (test code = Lymphocytes 1.6 1.0-5.5 #) [facility] LakeLokbsmmIQRLQFVEWF5892-01-97 07:59:00 Test Item Value Reference Range Interpretation Comments Segs-Bands # (test code = Segs-Bands #) 4.8 1.5-8.1 [facility] LakeMwabpsqHKUSVHADZZ1496-04-06 07:59:00 Test Item Value Reference Range Interpretation Comments Eosinophils # (test code 0.2 See_Comment [A utomated message] The = Eosinophils #) system [facility] generated this result tra nsmitted reference range : <=0.5. The reference r robbie was not used to int erpret this result as normal/abnormal . [facility] LakeDmbyubcUAHPPHHYXW2788-78-34 07:59:00 Test Item Value Reference Range Interpretation Comments Monocytes # (test code 0.7 See_Comment [Aut omated message] The = Monocytes #) system which generated this result tra nsmitted reference range : <=0.8. The reference r robbie was not used to int erpret this result as normal/abnormal . [facility] LakeMnksidxRPTFPMKWIT4322-44-91 07:59:00 Test Item Value Reference Range Interpretation Comments Basophils # (test code 0.1 See_Comment [Aut omated message] The = Basophils #) system which generated this result tra nsmitted reference range : <=0.2. The reference r robbie was not used to int erpret this result as normal/abnormal . [facility] LakeJhkpfdlCIZOSWISHY0715-76-29 07:59:00 Test Item Value Reference Range Interpretation Comments Lymphocytes (test code = Lymphocytes) 21.7 20.0-40.0 [facility] LakeLwyodkrJYGAXPBGCI7021-82-04 07:59:00 Test Item Value Reference Range Interpretation Comments Segs (test code = Segs) 65.6 45.0-75.0 [facility] LakeAlzcseqYKHPCSUWXV5251-38-75 07:59:00 Test Item Value Reference Range Interpretation Comments Basophils (test code = 0.8 See_Comment [Aut omated message] The Basophils) system which ge nerated this result tra nsmitted reference range : <=1.0. The reference r robbie was not used to int erpret this result as normal/abnormal . [facility] LakeIiamrowZDYNZLAKHS8853-47-62 07:59:00 Test Item Value Reference Range Interpretation Comments Eosinophils (test code = 2.1 See_Comment [A utomated message] The Eosinophils) system which ge nerated this result tra nsmitted reference range : <=4.0. The reference r robbie was not used to int erpret this result as normal/abnormal . [facility] LakePkfneeiDCMTZRRHJD5746-43-58 07:59:00 Test Item Value Reference Range Interpretation Comments Monocytes (test code = Monocytes) 9.8 2.0-12.0 [facility]2016-08-31 07:59:00 Test Item Value Reference Range Interpretation Comments Phosphorus (test code = Phosphorus) 3.3 2.5-4.5 [facility] CKLFU6179-57-44 07:59:00 Test Item Value Reference Range Interpretation Comments Magnesium Lvl (test code = Magnesium 1.8 1.8-2.4 Lvl) [facility] HospitalUatqcfhTUSZAYDLYAPJ0656-30-23 07:59:00 Test Item Value Reference Range Interpretation Comments AGAP (test code = AGAP) 11.2 10.0-20.0 [facility] HospitalWpyexseAZGCXSSHPFPE2437-12-35 07:59:00 Test Item Value Reference Range Interpretation Comments eGFR (test code = eGFR) 49 [facility] HospitalHnailjnVFUKZLZJSHUT3313-14-50 07:59:00 Test Item Value Reference Range Interpretation Comments Calcium Lvl (test code = Calcium Lvl) 8.4 8.5-10.5 [facility] HospitalDtvemiuESYMALXPQHRT4910-08-85 07:59:00 Test Item Value Reference Range Interpretation Comments Potassium Lvl (test code = Potassium 4.2 3.5-5.1 Lvl) [facility] HospitalLpprwivPJWHJNSEJSOK6539-10-21 07:59:00 Test Item Value Reference Range Interpretation Comments Chloride Lvl (test code = Chloride Lvl) 105 95-109 [facility] HospitalGrgicctSGBAFFRYMGSD3520-05-27 07:59:00 Test Item Value Reference Range Interpretation Comments CO2 (test code = CO2) 28 24-32 [facility] HospitalBpntxakKOITLJYJACBN4682-42-19 07:59:00 Test Item Value Reference Range Interpretation Comments BUN (test code = BUN) 22 7-22 [facility] HospitalXvvssumXZGABXZJCUJP2514-92-37 07:59:00 Test Item Value Reference Range Interpretation Comments Glucose Lvl (test code = Glucose Lvl) 109 70-99 [facility] HospitalOqvrpdhWZAPIHHQUNDT7968-45-61 07:59:00 Test Item Value Reference Range Interpretation Comments Creatinine Lvl (test code = Creatinine 1.07 0.50-1.40 Lvl) [facility] HospitalGmvitjeIOJAUDBYSZIC0423-78-78 07:59:00 Test Item Value Reference Range Interpretation Comments Sodium Lvl (test code = Sodium Lvl) 140 135-145 [facility] LakeIooogeeMGMNVXSVFX4104-63-42 07:59:00 Test Item Value Reference Range Interpretation Comments WBC (test code = WBC) 7.3 3.7-10.4 [facility] LakeBsinakoNDFAVPMZBP1493-41-63 07:59:00 Test Item Value Reference Range Interpretation Comments MCH (test code = MCH) 29.6 pg 27.0-31.0 [facility] LakeHkmduplIDIIGLJNOC2478-81-76 07:59:00 Test Item Value Reference Range Interpretation Comments MCV (test code = MCV) 88.9 80.0-98.0 [facility] LakeIspbpmkTYQJUXFKXB4356-26-54 07:59:00 Test Item Value Reference Range Interpretation Comments Hct (test code = Hct) 36.7 36.0-48.0 [facility] LakeCgkvapaNNWGCWNDSS5833-40-11 07:59:00 Test Item Value Reference Range Interpretation Comments Hgb (test code = Hgb) 12.2 12.0-16.0 [facility] LakeRrhvofeDQRQJEIKJD5284-79-55 07:59:00 Test Item Value Reference Range Interpretation Comments RBC (test code = RBC) 4.12 4.20-5.40 [facility] LakeWvvfvocUGTUGOMKAR4227-82-44 07:59:00 Test Item Value Reference Range Interpretation Comments MPV (test code = MPV) 7.3 7.4-10.4 [facility] LakeFgbjaqcIYNVHLXJCF6592-81-04 07:59:00 Test Item Value Reference Range Interpretation Comments Platelet (test code = Platelet) 290 133-450 [facility] LakeWegakqfCQPEKSMCLQ5168-72-22 07:59:00 Test Item Value Reference Range Interpretation Comments RDW (test code = RDW) 13.8 11.5-14.5 [facility] LakeGmnspqtNYCZETGYGG7387-80-95 07:59:00 Test Item Value Reference Range Interpretation Comments MCHC (test code = MCHC) 33.3 32.0-36.0 [facility] LakeDhcqasxBMSUKBIYRN8058-71-40 07:59:00 Test Item Value Reference Range Interpretation Comments Lymphocytes # (test code = Lymphocytes 1.6 1.0-5.5 #) [facility] LakeSazlchyBWPMRQWQDP3794-55-67 07:59:00 Test Item Value Reference Range Interpretation Comments Segs-Bands # (test code = Segs-Bands #) 4.8 1.5-8.1 [facility] LakeVrlvwvtBMROPZTQKD1522-92-97 07:59:00 Test Item Value Reference Range Interpretation Comments Eosinophils # (test code 0.2 See_Comment [A utomated message] The = Eosinophils #) system [facility] generated this result tra nsmitted reference range : <=0.5. The reference r robbie was not used to int erpret this result as normal/abnormal . [facility] LakeGplbwtdQEBFDAICOR5217-72-89 07:59:00 Test Item Value Reference Range Interpretation Comments Monocytes # (test code 0.7 See_Comment [Aut omated message] The = Monocytes #) system which generated this result tra nsmitted reference range : <=0.8. The reference r robbie was not used to int erpret this result as normal/abnormal . [facility] LakeQqxmmauQSEQGLPKZV1969-25-45 07:59:00 Test Item Value Reference Range Interpretation Comments Basophils # (test code 0.1 See_Comment [Aut omated message] The = Basophils #) system which generated this result tra nsmitted reference range : <=0.2. The reference r robbie was not used to int erpret this result as normal/abnormal . [facility] LakeDsvgamiZRCCDMXPLG2418-12-06 07:59:00 Test Item Value Reference Range Interpretation Comments Lymphocytes (test code = Lymphocytes) 21.7 20.0-40.0 [facility] LakeKilwbfxMVPJHXURCG6027-97-31 07:59:00 Test Item Value Reference Range Interpretation Comments Segs (test code = Segs) 65.6 45.0-75.0 [facility] LakeRkgqwjrAZTXUWWGPJ5207-01-77 07:59:00 Test Item Value Reference Range Interpretation Comments Basophils (test code = 0.8 See_Comment [Aut omated message] The Basophils) system which ge nerated this result tra nsmitted reference range : <=1.0. The reference r robbie was not used to int erpret this result as normal/abnormal . [facility] LakeQltevuaDUYKPMVKOB0803-29-31 07:59:00 Test Item Value Reference Range Interpretation Comments Eosinophils (test code = 2.1 See_Comment [A utomated message] The Eosinophils) system which ge nerated this result tra nsmitted reference range : <=4.0. The reference r robbie was not used to int erpret this result as normal/abnormal . [facility] LakeErmxqzsXQVDZVOMJV1159-96-42 07:59:00 Test Item Value Reference Range Interpretation Comments Monocytes (test code = Monocytes) 9.8 2.0-12.0 [facility]2016-08-31 07:59:00 Test Item Value Reference Range Interpretation Comments Phosphorus (test code = Phosphorus) 3.3 2.5-4.5 [facility]CHE[facility] NMGDV5245-08-50 07:59:00 Test Item Value Reference Range Interpretation Comments Magnesium Lvl (test code = Magnesium 1.8 1.8-2.4 Lvl) [facility] HospitalSzbukqkZCNSFYFOGLNB8440-16-05 07:59:00 Test Item Value Reference Range Interpretation Comments AGAP (test code = AGAP) 11.2 10.0-20.0 [facility] HospitalRuqoexxKCPWYOYXRUOM5242-92-51 07:59:00 Test Item Value Reference Range Interpretation Comments eGFR (test code = eGFR) 49 [facility] HospitalIpbhfdeNSNENGCAGTVT0797-90-01 07:59:00 Test Item Value Reference Range Interpretation Comments Calcium Lvl (test code = Calcium Lvl) 8.4 8.5-10.5 [facility] HospitalXjccjajJHOEMHWKJRRY4989-48-43 07:59:00 Test Item Value Reference Range Interpretation Comments Potassium Lvl (test code = Potassium 4.2 3.5-5.1 Lvl) [facility] HospitalTfglhveYZHIWJLOGDPC4190-22-97 07:59:00 Test Item Value Reference Range Interpretation Comments Chloride Lvl (test code = Chloride Lvl) 105 95-109 [facility] HospitalXopksiiDXODWYBPDOQK6060-37-92 07:59:00 Test Item Value Reference Range Interpretation Comments CO2 (test code = CO2) 28 24-32 [facility] HospitalTwujwukJJHXTONHLQYV3271-05-55 07:59:00 Test Item Value Reference Range Interpretation Comments BUN (test code = BUN) 22 7-22 [facility] HospitalTiwgzneOXXXTKBQZSWY9170-51-47 07:59:00 Test Item Value Reference Range Interpretation Comments Glucose Lvl (test code = Glucose Lvl) 109 70-99 [facility] HospitalRddnmyuVZVNRRLVOGNX7204-18-04 07:59:00 Test Item Value Reference Range Interpretation Comments Creatinine Lvl (test code = Creatinine 1.07 0.50-1.40 Lvl) [facility] HospitalUarimoeEZMKPEKKYJMA8415-20-61 07:59:00 Test Item Value Reference Range Interpretation Comments Sodium Lvl (test code = Sodium Lvl) 140 135-145 [facility] LakeOexhcpgSXAPNHLHQL3370-58-60 07:59:00 Test Item Value Reference Range Interpretation Comments WBC (test code = WBC) 7.3 3.7-10.4 [facility] LakeAiprupaNZKIQLFXNM2435-13-24 07:59:00 Test Item Value Reference Range Interpretation Comments MCH (test code = MCH) 29.6 pg 27.0-31.0 [facility] LakeLswwsaiNGCHDNFRDP4718-45-28 07:59:00 Test Item Value Reference Range Interpretation Comments MCV (test code = MCV) 88.9 80.0-98.0 [facility] LakeWxelodvEEMDRCBKOX2609-24-77 07:59:00 Test Item Value Reference Range Interpretation Comments Hct (test code = Hct) 36.7 36.0-48.0 [facility] LakeXlazdwfXHGJJIOEAJ9601-46-74 07:59:00 Test Item Value Reference Range Interpretation Comments Hgb (test code = Hgb) 12.2 12.0-16.0 [facility] LakeEqjbuqePATNZUXSNR3660-26-35 07:59:00 Test Item Value Reference Range Interpretation Comments RBC (test code = RBC) 4.12 4.20-5.40 [facility] LakeDqgjpeeTFFFEEVQQR9340-29-46 07:59:00 Test Item Value Reference Range Interpretation Comments MPV (test code = MPV) 7.3 7.4-10.4 [facility] LakeOjdcretABNAHAXGJC6005-21-38 07:59:00 Test Item Value Reference Range Interpretation Comments Platelet (test code = Platelet) 290 133-450 [facility] LakeMhgweldPBGBSAJMCK1418-53-19 07:59:00 Test Item Value Reference Range Interpretation Comments RDW (test code = RDW) 13.8 11.5-14.5 [facility] LakeSlpknmwZUCYKSMGDP2210-51-89 07:59:00 Test Item Value Reference Range Interpretation Comments MCHC (test code = MCHC) 33.3 32.0-36.0 [facility] LakeOrsmoquTGBUXKHEJM9129-78-92 07:59:00 Test Item Value Reference Range Interpretation Comments Lymphocytes # (test code = Lymphocytes 1.6 1.0-5.5 #) [facility] LakeJqgxvwpQOATLKAMVH5300-50-80 07:59:00 Test Item Value Reference Range Interpretation Comments Segs-Bands # (test code = Segs-Bands #) 4.8 1.5-8.1 [facility] LakeYxckyurQEZEXXNMNR0412-32-38 07:59:00 Test Item Value Reference Range Interpretation Comments Eosinophils # (test code 0.2 See_Comment [A utomated message] The = Eosinophils #) system ic h generated this result tra nsmitted reference range : <=0.5. The reference r robbie was not used to int erpret this result as normal/abnormal . [facility] LakeUxvrcpsLWLCCZDRHR1941-11-42 07:59:00 Test Item Value Reference Range Interpretation Comments Monocytes # (test code 0.7 See_Comment [Aut omated message] The = Monocytes #) system which generated this result tra nsmitted reference range : <=0.8. The reference r robbie was not used to int erpret this result as normal/abnormal . [facility] LakeBlavmqmAAOLMWZBLQ0808-09-99 07:59:00 Test Item Value Reference Range Interpretation Comments Basophils # (test code 0.1 See_Comment [Aut omated message] The = Basophils #) system which generated this result tra nsmitted reference range : <=0.2. The reference r robbie was not used to int erpret this result as normal/abnormal . [facility] LakeAjdkhzvFTIKYPNCUI3087-88-10 07:59:00 Test Item Value Reference Range Interpretation Comments Lymphocytes (test code = Lymphocytes) 21.7 20.0-40.0 [facility] LakeGhqjrbsQKVULBJOOP9005-64-14 07:59:00 Test Item Value Reference Range Interpretation Comments Segs (test code = Segs) 65.6 45.0-75.0 [facility] LakeZkrczdnCYCZKBXYWJ1785-23-07 07:59:00 Test Item Value Reference Range Interpretation Comments Basophils (test code = 0.8 See_Comment [Aut omated message] The Basophils) system which ge nerated this result tra nsmitted reference range : <=1.0. The reference r robbie was not used to int erpret this result as normal/abnormal . [facility] LakeRitfrmkEVEYVYKAJW8341-11-19 07:59:00 Test Item Value Reference Range Interpretation Comments Eosinophils (test code = 2.1 See_Comment [A utomated message] The Eosinophils) system which ge nerated this result tra nsmitted reference range : <=4.0. The reference r robbie was not used to int erpret this result as normal/abnormal . [facility] LakeKsjgxrvVFSSPZKVFS2992-10-53 07:59:00 Test Item Value Reference Range Interpretation Comments Monocytes (test code = Monocytes) 9.8 2.0-12.0 [facility]2016-08-31 07:59:00 Test Item Value Reference Range Interpretation Comments Phosphorus (test code = Phosphorus) 3.3 2.5-4.5 [facility]CHE[facility] QDVXP8073-12-18 07:59:00 Test Item Value Reference Range Interpretation Comments Magnesium Lvl (test code = Magnesium 1.8 1.8-2.4 Lvl) [facility] HospitalXmbxaywUMYRYNIGNMZT9969-13-63 07:59:00 Test Item Value Reference Range Interpretation Comments AGAP (test code = AGAP) 11.2 10.0-20.0 [facility] HospitalQeejofxONKLYYHAJDHM8170-70-25 07:59:00 Test Item Value Reference Range Interpretation Comments eGFR (test code = eGFR) 49 [facility] HospitalCwfayluKHVFGMQCSZHY9126-54-97 07:59:00 Test Item Value Reference Range Interpretation Comments Calcium Lvl (test code = Calcium Lvl) 8.4 8.5-10.5 [facility] HospitalMhbddyrZUCVZWMOARQP4651-40-88 07:59:00 Test Item Value Reference Range Interpretation Comments Potassium Lvl (test code = Potassium 4.2 3.5-5.1 Lvl) [facility] HospitalAvfitnuADBAMWFFXTMO2523-02-48 07:59:00 Test Item Value Reference Range Interpretation Comments Chloride Lvl (test code = Chloride Lvl) 105 95-109 [facility] HospitalVcwsbzfKAAOYIVAKVTH6999-73-80 07:59:00 Test Item Value Reference Range Interpretation Comments CO2 (test code = CO2) 28 24-32 [facility] HospitalBqmzqdnGWMLZQFPSGCJ2905-24-26 07:59:00 Test Item Value Reference Range Interpretation Comments BUN (test code = BUN) 22 7-22 [facility] HospitalPiwicfjPLSNPXNEYADL0328-47-75 07:59:00 Test Item Value Reference Range Interpretation Comments Glucose Lvl (test code = Glucose Lvl) 109 70-99 [facility] HospitalOoucdonTOKPWPCCYZWH8072-65-14 07:59:00 Test Item Value Reference Range Interpretation Comments Creatinine Lvl (test code = Creatinine 1.07 0.50-1.40 Lvl) [facility] HospitalZfgryivFNPNOUJMBVQK1879-88-34 07:59:00 Test Item Value Reference Range Interpretation Comments Sodium Lvl (test code = Sodium Lvl) 140 135-145 [facility] LakeOjirkbtKFKUWGFTGF3680-06-90 07:59:00 Test Item Value Reference Range Interpretation Comments WBC (test code = WBC) 7.3 3.7-10.4 [facility] LakeFpqkbnkSJNFKBOJQP0772-89-33 07:59:00 Test Item Value Reference Range Interpretation Comments MCH (test code = MCH) 29.6 pg 27.0-31.0 [facility] LakeUhhbnqdDJGNZOTRKB8342-23-80 07:59:00 Test Item Value Reference Range Interpretation Comments MCV (test code = MCV) 88.9 80.0-98.0 [facility] LakeZngngxbWPSNUXYRVI4310-70-71 07:59:00 Test Item Value Reference Range Interpretation Comments Hct (test code = Hct) 36.7 36.0-48.0 [facility] LakeLuivwtzRAQDRKXTSW2424-39-74 07:59:00 Test Item Value Reference Range Interpretation Comments Hgb (test code = Hgb) 12.2 12.0-16.0 [facility] [facility]vwnhrVIGTJRISMS6877-61-76 07:59:00 Test Item Value Reference Range Interpretation Comments RBC (test code = RBC) 4.12 4.20-5.40 [facility] LakeTfvkmszOSYBMMCNJM7513-24-51 07:59:00 Test Item Value Reference Range Interpretation Comments MPV (test code = MPV) 7.3 7.4-10.4 [facility] LakeBzchjkqURDUPMUHQY4663-82-80 07:59:00 Test Item Value Reference Range Interpretation Comments Platelet (test code = Platelet) 290 133-450 [facility] LakeJmcoclbNOLGHBDSDG7181-24-84 07:59:00 Test Item Value Reference Range Interpretation Comments RDW (test code = RDW) 13.8 11.5-14.5 [facility] LakeLyrrwcnRFSTYJNYTY2275-33-70 07:59:00 Test Item Value Reference Range Interpretation Comments MCHC (test code = MCHC) 33.3 32.0-36.0 [facility] LakeDrxcvbpJKWRWZQPRI9386-75-58 07:59:00 Test Item Value Reference Range Interpretation Comments Lymphocytes # (test code = Lymphocytes 1.6 1.0-5.5 #) [facility] LakePpaxljfHONIXWKTAW4070-58-43 07:59:00 Test Item Value Reference Range Interpretation Comments Segs-Bands # (test code = Segs-Bands #) 4.8 1.5-8.1 [facility] LakeDemhctkRUBLCBKSKQ8855-27-91 07:59:00 Test Item Value Reference Range Interpretation Comments Eosinophils # (test code 0.2 See_Comment [A utomated message] The = Eosinophils #) system whic h generated this result tra nsmitted reference range : <=0.5. The reference r robbie was not used to int erpret this result as normal/abnormal . [facility] LakeRvwqzawZJCILICRML5782-47-70 07:59:00 Test Item Value Reference Range Interpretation Comments Monocytes # (test code 0.7 See_Comment [Aut omated message] The = Monocytes #) system which generated this result tra nsmitted reference range : <=0.8. The reference r robbie was not used to int erpret this result as normal/abnormal . [facility] LakeTdrefcfZQUTBSIEMC6124-24-37 07:59:00 Test Item Value Reference Range Interpretation Comments Basophils # (test code 0.1 See_Comment [Aut omated message] The = Basophils #) system which generated this result tra nsmitted reference range : <=0.2. The reference r robbie was not used to int erpret this result as normal/abnormal . [facility] LakeHazfqlmCCGZQSNOVA3384-61-53 07:59:00 Test Item Value Reference Range Interpretation Comments Lymphocytes (test code = Lymphocytes) 21.7 20.0-40.0 [facility] LakeDwdftrjKYTVYJNIXK4172-86-04 07:59:00 Test Item Value Reference Range Interpretation Comments Segs (test code = Segs) 65.6 45.0-75.0 [facility] LakeNnxhzqnHDHGMOJOLY3955-29-36 07:59:00 Test Item Value Reference Range Interpretation Comments Basophils (test code = 0.8 See_Comment [Aut omated message] The Basophils) system which ge nerated this result tra nsmitted reference range : <=1.0. The reference r robbie was not used to int erpret this result as normal/abnormal . [facility] LakeWrysyldSATIXZKXSG4398-24-50 07:59:00 Test Item Value Reference Range Interpretation Comments Eosinophils (test code = 2.1 See_Comment [A utomated message] The Eosinophils) system which ge nerated this result tra nsmitted reference range : <=4.0. The reference r robbie was not used to int erpret this result as normal/abnormal . [facility] LakeQercryiVOLAIGNNHT9648-80-08 07:59:00 Test Item Value Reference Range Interpretation Comments Monocytes (test code = Monocytes) 9.8 2.0-12.0 [facility]2016-08-31 07:59:00 Test Item Value Reference Range Interpretation Comments Phosphorus (test code = Phosphorus) 3.3 2.5-4.5 [facility] [id number] 07:59:00 Test Item Value Reference Range Interpretation Comments Magnesium Lvl (test code = Magnesium 1.8 1.8-2.4 Lvl) [facility] HospitalAtmsnxeFTJVFMNXGCRH9431-36-14 07:59:00 Test Item Value Reference Range Interpretation Comments AGAP (test code = AGAP) 11.2 10.0-20.0 [facility] HospitalBayjvjjUJRHDHADSWHF1140-95-57 07:59:00 Test Item Value Reference Range Interpretation Comments eGFR (test code = eGFR) 49 [facility] HospitalCeaoeuhLDEYRPTHRGWP9778-72-07 07:59:00 Test Item Value Reference Range Interpretation Comments Calcium Lvl (test code = Calcium Lvl) 8.4 8.5-10.5 [facility] HospitalZjkqzdvXNILCBYYXGOL5237-90-75 07:59:00 Test Item Value Reference Range Interpretation Comments Potassium Lvl (test code = Potassium 4.2 3.5-5.1 Lvl) [facility] HospitalZowvwvyBUABFSUZONOG9058-34-32 07:59:00 Test Item Value Reference Range Interpretation Comments Chloride Lvl (test code = Chloride Lvl) 105 95-109 [facility] HospitalHyrygnqTTWOCAQTKWJB3015-82-46 07:59:00 Test Item Value Reference Range Interpretation Comments CO2 (test code = CO2) 28 24-32 [facility] HospitalEifakdvRMZLZXOVLJMV4842-52-31 07:59:00 Test Item Value Reference Range Interpretation Comments BUN (test code = BUN) 22 7-22 [facility] HospitalPguabveXWAIIWZISJYI9537-00-50 07:59:00 Test Item Value Reference Range Interpretation Comments Glucose Lvl (test code = Glucose Lvl) 109 70-99 [facility] HospitalGhrvsktQEWRZNSFUTVK4678-84-32 07:59:00 Test Item Value Reference Range Interpretation Comments Creatinine Lvl (test code = Creatinine 1.07 0.50-1.40 Lvl) [facility] HospitalOiegknqBGUTLLBETHKG7893-31-59 07:59:00 Test Item Value Reference Range Interpretation Comments Sodium Lvl (test code = Sodium Lvl) 140 135-145 [facility] HospitalJnckzykBETVASERGW3093-71-44 07:59:00 Test Item Value Reference Range Interpretation Comments WBC (test code = WBC) 7.3 3.7-10.4 [facility] LakeDubjrguHSPZYCSRTT6076-56-25 07:59:00 Test Item Value Reference Range Interpretation Comments MCH (test code = MCH) 29.6 pg 27.0-31.0 [facility] LakePcmxnckIPPIZGUZGI4041-78-37 07:59:00 Test Item Value Reference Range Interpretation Comments MCV (test code = MCV) 88.9 80.0-98.0 [facility] LakeEiqzopwXSEGVUVQIM1292-13-86 07:59:00 Test Item Value Reference Range Interpretation Comments Hct (test code = Hct) 36.7 36.0-48.0 [facility] LakeDgekbwrKPDUXPRXSU4733-29-16 07:59:00 Test Item Value Reference Range Interpretation Comments Hgb (test code = Hgb) 12.2 12.0-16.0 [facility] LakeXjdvtdrMKWJNFXKJW6915-79-32 07:59:00 Test Item Value Reference Range Interpretation Comments RBC (test code = RBC) 4.12 4.20-5.40 [facility] LakeZjshbuyINZPVQUVXW7474-69-14 07:59:00 Test Item Value Reference Range Interpretation Comments MPV (test code = MPV) 7.3 7.4-10.4 [facility] LakeVpyjtlfQZBOPLKPHE3501-70-92 07:59:00 Test Item Value Reference Range Interpretation Comments Platelet (test code = Platelet) 290 133-450 [facility] LakeImysteiFQUJPODUFJ8016-79-72 07:59:00 Test Item Value Reference Range Interpretation Comments RDW (test code = RDW) 13.8 11.5-14.5 [facility] LakeTkmvjbsWOHUWSYYAY8187-91-54 07:59:00 Test Item Value Reference Range Interpretation Comments MCHC (test code = MCHC) 33.3 32.0-36.0 [facility] LakeMbsmhypOBXVXXMHWS8468-34-54 07:59:00 Test Item Value Reference Range Interpretation Comments Lymphocytes # (test code = Lymphocytes 1.6 1.0-5.5 #) [facility] LakeNarwudbHOOBWVUQNV5678-47-18 07:59:00 Test Item Value Reference Range Interpretation Comments Segs-Bands # (test code = Segs-Bands #) 4.8 1.5-8.1 [facility] LakeMakuqbwIHDFADKDJU4354-52-10 07:59:00 Test Item Value Reference Range Interpretation Comments Eosinophils # (test code 0.2 See_Comment [A utomated message] The = Eosinophils #) system whic h generated this result tra nsmitted reference range : <=0.5. The reference r robbie was not used to int erpret this result as normal/abnormal . [facility] LakePvfeyzuTYLFXKEQLW1824-19-78 07:59:00 Test Item Value Reference Range Interpretation Comments Monocytes # (test code 0.7 See_Comment [Aut omated message] The = Monocytes #) system which generated this result tra nsmitted reference range : <=0.8. The reference r robbie was not used to int erpret this result as normal/abnormal . [facility] LakeBhnkityMHRYFVXLJC5827-60-66 07:59:00 Test Item Value Reference Range Interpretation Comments Basophils # (test code 0.1 See_Comment [Aut omated message] The = Basophils #) system which generated this result tra nsmitted reference range : <=0.2. The reference r robbie was not used to int erpret this result as normal/abnormal . [facility] LakePyesfefGRRDQMYROE9288-30-95 07:59:00 Test Item Value Reference Range Interpretation Comments Lymphocytes (test code = Lymphocytes) 21.7 20.0-40.0 [facility] LakeYjmwehbTFEOODPFQS6129-08-40 07:59:00 Test Item Value Reference Range Interpretation Comments Segs (test code = Segs) 65.6 45.0-75.0 [facility] LakeGuivbghWQMKETBNFM4248-02-40 07:59:00 Test Item Value Reference Range Interpretation Comments Basophils (test code = 0.8 See_Comment [Aut omated message] The Basophils) system which ge nerated this result tra nsmitted reference range : <=1.0. The reference r robbie was not used to int erpret this result as normal/abnormal . [facility] LakeMzxakcbFNLJINDDNO9561-21-15 07:59:00 Test Item Value Reference Range Interpretation Comments Eosinophils (test code = 2.1 See_Comment [A utomated message] The Eosinophils) system which ge nerated this result tra nsmitted reference range : <=4.0. The reference r robbie was not used to int erpret this result as normal/abnormal . [facility] LakePuhvpraSPKTDFMMEI2770-70-48 07:59:00 Test Item Value Reference Range Interpretation Comments Monocytes (test code = Monocytes) 9.8 2.0-12.0 [facility]2016-08-31 07:59:00 Test Item Value Reference Range Interpretation Comments Phosphorus (test code = Phosphorus) 3.3 2.5-4.5 [facility]CHE[facility] BDGRR5215-23-03 07:59:00 Test Item Value Reference Range Interpretation Comments Magnesium Lvl (test code = Magnesium 1.8 1.8-2.4 Lvl) [facility] HospitalWgxrhmkQNUAYSCTEZBZ1438-05-20 07:59:00 Test Item Value Reference Range Interpretation Comments AGAP (test code = AGAP) 11.2 10.0-20.0 [facility] HospitalCfovsmyJJFTGKRJVPQS9896-57-24 07:59:00 Test Item Value Reference Range Interpretation Comments eGFR (test code = eGFR) 49 [facility] HospitalSmztgyrPETBDBHRACIM5405-06-28 07:59:00 Test Item Value Reference Range Interpretation Comments Calcium Lvl (test code = Calcium Lvl) 8.4 8.5-10.5 [facility] HospitalYxagathAUZOIIBWYYKC2582-56-19 07:59:00 Test Item Value Reference Range Interpretation Comments Potassium Lvl (test code = Potassium 4.2 3.5-5.1 Lvl) [facility] HospitalEsoqvxdIQJADKGCZACU8512-22-41 07:59:00 Test Item Value Reference Range Interpretation Comments Chloride Lvl (test code = Chloride Lvl) 105 95-109 [facility] HospitalOkrimpuQXUNEPLBQKDQ5391-29-63 07:59:00 Test Item Value Reference Range Interpretation Comments CO2 (test code = CO2) 28 24-32 [facility] HospitalTvtswxqPXDESTOUITHW3983-70-38 07:59:00 Test Item Value Reference Range Interpretation Comments BUN (test code = BUN) 22 7-22 [facility] HospitalLwpafzyBWKJJYYFRHMV0998-83-78 07:59:00 Test Item Value Reference Range Interpretation Comments Glucose Lvl (test code = Glucose Lvl) 109 70-99 [facility] HospitalZradjntXRULSLFOCAYQ0300-66-94 07:59:00 Test Item Value Reference Range Interpretation Comments Creatinine Lvl (test code = Creatinine 1.07 0.50-1.40 Lvl) [facility] HospitalEwxykgzIMEVUEXCQHEV4149-27-29 07:59:00 Test Item Value Reference Range Interpretation Comments Sodium Lvl (test code = Sodium Lvl) 140 135-145 [facility] HospitalFtafevzVPHIWLOTFG6594-17-98 07:59:00 Test Item Value Reference Range Interpretation Comments WBC (test code = WBC) 7.3 3.7-10.4 [facility] LakeYtyullxHOIVYXPAJK1097-03-17 07:59:00 Test Item Value Reference Range Interpretation Comments MCH (test code = MCH) 29.6 pg 27.0-31.0 [facility] LakeOxaljdfDVFWQLXMAI2981-91-53 07:59:00 Test Item Value Reference Range Interpretation Comments MCV (test code = MCV) 88.9 80.0-98.0 [facility] LakeFwkpftqOMSXXIIAJL1292-28-66 07:59:00 Test Item Value Reference Range Interpretation Comments Hct (test code = Hct) 36.7 36.0-48.0 [facility] LakeMmwnvatWGGPVNQBWS5750-01-52 07:59:00 Test Item Value Reference Range Interpretation Comments Hgb (test code = Hgb) 12.2 12.0-16.0 [facility] LakePbuygytLSPMWWZLMY8453-05-57 07:59:00 Test Item Value Reference Range Interpretation Comments RBC (test code = RBC) 4.12 4.20-5.40 [facility] LakeFnllxaoLAWFMLVNYO8708-34-16 07:59:00 Test Item Value Reference Range Interpretation Comments MPV (test code = MPV) 7.3 7.4-10.4 [facility] LakeKxgubgwNHVXLEECBG7057-25-05 07:59:00 Test Item Value Reference Range Interpretation Comments Platelet (test code = Platelet) 290 133-450 [facility] LakeYnwumyfQNXZBUDCBV5993-82-56 07:59:00 Test Item Value Reference Range Interpretation Comments RDW (test code = RDW) 13.8 11.5-14.5 [facility] LakeLnydeufBRMJNCBWGO7950-04-41 07:59:00 Test Item Value Reference Range Interpretation Comments MCHC (test code = MCHC) 33.3 32.0-36.0 [facility] LakeAkjqeufAGQEFKXDJS1627-69-74 07:59:00 Test Item Value Reference Range Interpretation Comments Lymphocytes # (test code = Lymphocytes 1.6 1.0-5.5 #) [facility] LakeGysuubqGUICLZURXY1359-43-73 07:59:00 Test Item Value Reference Range Interpretation Comments Segs-Bands # (test code = Segs-Bands #) 4.8 1.5-8.1 [facility] LakeSqwgfbzWYOGMJQKDA1925-67-42 07:59:00 Test Item Value Reference Range Interpretation Comments Eosinophils # (test code 0.2 See_Comment [A utomated message] The = Eosinophils #) system whic h generated this result tra nsmitted reference range : <=0.5. The reference r robbie was not used to int erpret this result as normal/abnormal . [facility] LakeZfebfquQOOOXRGGMW5887-31-77 07:59:00 Test Item Value Reference Range Interpretation Comments Monocytes # (test code 0.7 See_Comment [Aut omated message] The = Monocytes #) system which generated this result tra nsmitted reference range : <=0.8. The reference r robbie was not used to int erpret this result as normal/abnormal . [facility] LakeCgeylzaTEHIECADVX4065-90-17 07:59:00 Test Item Value Reference Range Interpretation Comments Basophils # (test code 0.1 See_Comment [Aut omated message] The = Basophils #) system which generated this result tra nsmitted reference range : <=0.2. The reference r robbie was not used to int erpret this result as normal/abnormal . [facility] LakeKtyohtfBNJYYJJPJE4097-64-42 07:59:00 Test Item Value Reference Range Interpretation Comments Lymphocytes (test code = Lymphocytes) 21.7 20.0-40.0 [facility] LakeExiszqtBWHYOQKUNB9588-17-51 07:59:00 Test Item Value Reference Range Interpretation Comments Segs (test code = Segs) 65.6 45.0-75.0 [facility] LakeScyrcvwLAJITWVEXR5822-70-46 07:59:00 Test Item Value Reference Range Interpretation Comments Basophils (test code = 0.8 See_Comment [Aut omated message] The Basophils) system which ge nerated this result tra nsmitted reference range : <=1.0. The reference r robbie was not used to int erpret this result as normal/abnormal . [facility] LakeSddzgncTIINGKNMCV4493-25-84 07:59:00 Test Item Value Reference Range Interpretation Comments Eosinophils (test code = 2.1 See_Comment [A utomated message] The Eosinophils) system which ge nerated this result tra nsmitted reference range : <=4.0. The reference r robbie was not used to int erpret this result as normal/abnormal . [facility] LakeKryaijjMYFYMPRTUR5148-48-41 07:59:00 Test Item Value Reference Range Interpretation Comments Monocytes (test code = Monocytes) 9.8 2.0-12.0 [facility]2016-08-31 07:59:00 Test Item Value Reference Range Interpretation Comments Phosphorus (test code = Phosphorus) 3.3 2.5-4.5 [facility]CHE[facility] [id number] 07:59:00 Test Item Value Reference Range Interpretation Comments Magnesium Lvl (test code = Magnesium 1.8 1.8-2.4 Lvl) [facility] HospitalGwcnaaiDWVHIIWJLCPF9148-67-28 07:59:00 Test Item Value Reference Range Interpretation Comments AGAP (test code = AGAP) 11.2 10.0-20.0 [facility] HospitalLxdkgnoGIKKFTPYGOZL8408-90-81 07:59:00 Test Item Value Reference Range Interpretation Comments eGFR (test code = eGFR) 49 [facility] HospitalIulkrulOCDUKCXPLYSJ4562-51-48 07:59:00 Test Item Value Reference Range Interpretation Comments Calcium Lvl (test code = Calcium Lvl) 8.4 8.5-10.5 [facility] HospitalJfapfayEOYXKMUIFFVK8267-01-06 07:59:00 Test Item Value Reference Range Interpretation Comments Potassium Lvl (test code = Potassium 4.2 3.5-5.1 Lvl) [facility] HospitalCimswtoMRQWBLFOIFOL1327-24-99 07:59:00 Test Item Value Reference Range Interpretation Comments Chloride Lvl (test code = Chloride Lvl) 105 95-109 [facility] HospitalYqhvihpHQWQABCLNWTL1126-79-58 07:59:00 Test Item Value Reference Range Interpretation Comments CO2 (test code = CO2) 28 24-32 [facility] HospitalOgqfcjrDUAFRGOZVTRJ6492-05-97 07:59:00 Test Item Value Reference Range Interpretation Comments BUN (test code = BUN) 22 7-22 [facility] HospitalLetnnvfLIUNUBCPGRED8204-17-33 07:59:00 Test Item Value Reference Range Interpretation Comments Glucose Lvl (test code = Glucose Lvl) 109 70-99 [facility] HospitalLyhlpmzTLZSKPYKIWRR4357-18-04 07:59:00 Test Item Value Reference Range Interpretation Comments Creatinine Lvl (test code = Creatinine 1.07 0.50-1.40 Lvl) [facility] HospitalFkzyhkvEMWQQXVSZJTA4253-09-97 07:59:00 Test Item Value Reference Range Interpretation Comments Sodium Lvl (test code = Sodium Lvl) 140 135-145 [facility] HospitalMaxmkanPGMYYSPMCD1012-54-41 07:59:00 Test Item Value Reference Range Interpretation Comments WBC (test code = WBC) 7.3 3.7-10.4 [facility] LakeFfxxyycHYGPACBXCR7569-09-18 07:59:00 Test Item Value Reference Range Interpretation Comments MCH (test code = MCH) 29.6 pg 27.0-31.0 [facility] LakeUneodwnKBIJNTKYNN2183-10-37 07:59:00 Test Item Value Reference Range Interpretation Comments MCV (test code = MCV) 88.9 80.0-98.0 [facility] LakeMzyenqyAPNSRROYXI4893-32-64 07:59:00 Test Item Value Reference Range Interpretation Comments Hct (test code = Hct) 36.7 36.0-48.0 [facility] LakeKyfraomOGXTCUXVOR4044-41-37 07:59:00 Test Item Value Reference Range Interpretation Comments Hgb (test code = Hgb) 12.2 12.0-16.0 [facility] LakeIsncezjMJMQKQMCID0411-90-77 07:59:00 Test Item Value Reference Range Interpretation Comments RBC (test code = RBC) 4.12 4.20-5.40 [facility] LakeHlsjyzpUGUBCHIUBJ8771-73-18 07:59:00 Test Item Value Reference Range Interpretation Comments MPV (test code = MPV) 7.3 7.4-10.4 [facility] LakeYxmvudfSPALZFOFCT3658-50-03 07:59:00 Test Item Value Reference Range Interpretation Comments Platelet (test code = Platelet) 290 133-450 [facility] LakeVlzjvmrDOHQLRUBAB0021-95-58 07:59:00 Test Item Value Reference Range Interpretation Comments RDW (test code = RDW) 13.8 11.5-14.5 [facility] LakeCcbtpbhXILZQFPEMX8729-92-84 07:59:00 Test Item Value Reference Range Interpretation Comments MCHC (test code = MCHC) 33.3 32.0-36.0 [facility] LakeAobsbtgYILMFVGYCX7407-27-87 07:59:00 Test Item Value Reference Range Interpretation Comments Lymphocytes # (test code = Lymphocytes 1.6 1.0-5.5 #) [facility] LakeMraubvnYFJFJITLAY2395-62-30 07:59:00 Test Item Value Reference Range Interpretation Comments Segs-Bands # (test code = Segs-Bands #) 4.8 1.5-8.1 [facility] LakeMwfkmdcEMNIOKMXOQ1070-27-30 07:59:00 Test Item Value Reference Range Interpretation Comments Eosinophils # (test code 0.2 See_Comment [A utomated message] The = Eosinophils #) system whic h generated this result tra nsmitted reference range : <=0.5. The reference r robbie was not used to int erpret this result as normal/abnormal . [facility] LakeVlcizapVCIBUULKSW0686-78-14 07:59:00 Test Item Value Reference Range Interpretation Comments Monocytes # (test code 0.7 See_Comment [Aut omated message] The = Monocytes #) system which generated this result tra nsmitted reference range : <=0.8. The reference r robbie was not used to int erpret this result as normal/abnormal . [facility] LakeVgnrsspXTNUVBPPEH6024-60-76 07:59:00 Test Item Value Reference Range Interpretation Comments Basophils # (test code 0.1 See_Comment [Aut omated message] The = Basophils #) system which generated this result tra nsmitted reference range : <=0.2. The reference r robbie was not used to int erpret this result as normal/abnormal . [facility] LakeBiiwhvsOBVJPQSJQS4067-09-00 07:59:00 Test Item Value Reference Range Interpretation Comments Lymphocytes (test code = Lymphocytes) 21.7 20.0-40.0 [facility] LakeRhpdpktUZXOTZUNQA1341-54-75 07:59:00 Test Item Value Reference Range Interpretation Comments Segs (test code = Segs) 65.6 45.0-75.0 [facility] LakeXcaubklIPMSPUMZZJ6080-22-63 07:59:00 Test Item Value Reference Range Interpretation Comments Basophils (test code = 0.8 See_Comment [Aut omated message] The Basophils) system which ge nerated this result tra nsmitted reference range : <=1.0. The reference r robbie was not used to int erpret this result as normal/abnormal . [facility] LakeAjsbkxpWPUUFQHRJR5019-13-22 07:59:00 Test Item Value Reference Range Interpretation Comments Eosinophils (test code = 2.1 See_Comment [A utomated message] The Eosinophils) system which ge nerated this result tra nsmitted reference range : <=4.0. The reference r robbie was not used to int erpret this result as normal/abnormal . [facility] LakePzuozsdVLRSYSSFXN0171-87-56 07:59:00 Test Item Value Reference Range Interpretation Comments Monocytes (test code = Monocytes) 9.8 2.0-12.0 [facility]2016-08-31 07:59:00 Test Item Value Reference Range Interpretation Comments Phosphorus (test code = Phosphorus) 3.3 2.5-4.5 [facility] HospitalScoutzie HAQWC0642-20-85 07:59:00 Test Item Value Reference Range Interpretation Comments Magnesium Lvl (test code = Magnesium 1.8 1.8-2.4 Lvl) [facility] HospitalFbkurmzJQGGUULHADRU1381-38-09 07:59:00 Test Item Value Reference Range Interpretation Comments AGAP (test code = AGAP) 11.2 10.0-20.0 [facility] HospitalFaayfvtBIEQVRIXSRDG1128-12-49 07:59:00 Test Item Value Reference Range Interpretation Comments eGFR (test code = eGFR) 49 [facility] HospitalKdwuftdXSLAIDQJPKWJ1157-60-88 07:59:00 Test Item Value Reference Range Interpretation Comments Calcium Lvl (test code = Calcium Lvl) 8.4 8.5-10.5 [facility] HospitalKmfnjohIJGHKWNDCDCD9868-51-57 07:59:00 Test Item Value Reference Range Interpretation Comments Potassium Lvl (test code = Potassium 4.2 3.5-5.1 Lvl) [facility] HospitalYqwjaqiMJKOWVQIRYBA3579-03-66 07:59:00 Test Item Value Reference Range Interpretation Comments Chloride Lvl (test code = Chloride Lvl) 105 95-109 [facility] HospitalJrhncrzKISDMEKCOFHO9036-86-54 07:59:00 Test Item Value Reference Range Interpretation Comments CO2 (test code = CO2) 28 24-32 [facility] HospitalUydybhqWTXGPATAGMJL2461-95-04 07:59:00 Test Item Value Reference Range Interpretation Comments BUN (test code = BUN) 22 7-22 [facility]NdysszeYGSRGJJBBZRC0886-66-65 07:59:00 Test Item Value Reference Range Interpretation Comments Glucose Lvl (test code = Glucose Lvl) 109 70-99 [facility] HospitalJsqbnkgLHLZAYITYQXQ2934-39-53 07:59:00 Test Item Value Reference Range Interpretation Comments Creatinine Lvl (test code = Creatinine 1.07 0.50-1.40 Lvl) [facility] HospitalDmkzjieMWLLIIGTJBCO1195-71-95 07:59:00 Test Item Value Reference Range Interpretation Comments Sodium Lvl (test code = Sodium Lvl) 140 135-145 [facility]RbvrdjpKLUUGYNITE5281-65-48 07:59:00 Test Item Value Reference Range Interpretation Comments WBC (test code = WBC) 7.3 3.7-10.4 [facility] LakeEdnmserNLGJTJLIPP2529-04-98 07:59:00 Test Item Value Reference Range Interpretation Comments MCH (test code = MCH) 29.6 pg 27.0-31.0 [facility] LakeRftrxmcTDALTNLYYJ7592-44-58 07:59:00 Test Item Value Reference Range Interpretation Comments MCV (test code = MCV) 88.9 80.0-98.0 [facility] LakeLwmybssNWDWICRDMS1116-43-80 07:59:00 Test Item Value Reference Range Interpretation Comments Hct (test code = Hct) 36.7 36.0-48.0 [facility] LakeDagpcyzAGPINPCFQF2507-09-59 07:59:00 Test Item Value Reference Range Interpretation Comments Hgb (test code = Hgb) 12.2 12.0-16.0 [facility] LakeJhkjxdyUFMDWXQPQN9379-34-14 07:59:00 Test Item Value Reference Range Interpretation Comments RBC (test code = RBC) 4.12 4.20-5.40 [facility] LakeCyofkanQKNIUUHEQR4261-69-07 07:59:00 Test Item Value Reference Range Interpretation Comments MPV (test code = MPV) 7.3 7.4-10.4 [facility] LakeCdptsndUQVSVANDYR6773-68-20 07:59:00 Test Item Value Reference Range Interpretation Comments Platelet (test code = Platelet) 290 133-450 [facility] LakeMkkbepoKXVXMUTIWM0840-57-03 07:59:00 Test Item Value Reference Range Interpretation Comments RDW (test code = RDW) 13.8 11.5-14.5 [facility] LakeEsiwtqfQZAXDTDDYR1216-82-57 07:59:00 Test Item Value Reference Range Interpretation Comments MCHC (test code = MCHC) 33.3 32.0-36.0 [facility] LakeSuhafjwESFBGLJLSF5620-45-25 07:59:00 Test Item Value Reference Range Interpretation Comments Lymphocytes # (test code = Lymphocytes 1.6 1.0-5.5 #) [facility] LakeBlhehijETRKJUZAUU6172-29-89 07:59:00 Test Item Value Reference Range Interpretation Comments Segs-Bands # (test code = Segs-Bands #) 4.8 1.5-8.1 [facility] LakeUojcidnCFEARQIJCI6702-37-15 07:59:00 Test Item Value Reference Range Interpretation Comments Eosinophils # (test code 0.2 See_Comment [A utomated message] The = Eosinophils #) system whic h generated this result tra nsmitted reference range : <=0.5. The reference r robbie was not used to int erpret this result as normal/abnormal . [facility] LakeGoyqjoiFTEXBBPZZL2413-58-04 07:59:00 Test Item Value Reference Range Interpretation Comments Monocytes # (test code 0.7 See_Comment [Aut omated message] The = Monocytes #) system which generated this result tra nsmitted reference range : <=0.8. The reference r robbie was not used to int erpret this result as normal/abnormal . [facility] LakeOklzcsnZOTXWSDZOU6359-04-06 07:59:00 Test Item Value Reference Range Interpretation Comments Basophils # (test code 0.1 See_Comment [Aut omated message] The = Basophils #) system which generated this result tra nsmitted reference range : <=0.2. The reference r robbie was not used to int erpret this result as normal/abnormal . [facility] LakeQrxponuKXKLMGATLJ8497-83-08 07:59:00 Test Item Value Reference Range Interpretation Comments Lymphocytes (test code = Lymphocytes) 21.7 20.0-40.0 [facility] LakeTnyydchWUGYYVIASH8123-55-73 07:59:00 Test Item Value Reference Range Interpretation Comments Segs (test code = Segs) 65.6 45.0-75.0 [facility] LakeVnaybcmCNHMYFOVLY6886-85-49 07:59:00 Test Item Value Reference Range Interpretation Comments Basophils (test code = 0.8 See_Comment [Aut omated message] The Basophils) system which ge nerated this result tra nsmitted reference range : <=1.0. The reference r robbie was not used to int erpret this result as normal/abnormal . [facility] LakeApjpzynACYACLRMED7105-88-43 07:59:00 Test Item Value Reference Range Interpretation Comments Eosinophils (test code = 2.1 See_Comment [A utomated message] The Eosinophils) system which ge nerated this result tra nsmitted reference range : <=4.0. The reference r robbie was not used to int erpret this result as normal/abnormal . [facility] LakeSlisylvDGKMXOAQHP7037-57-46 07:59:00 Test Item Value Reference Range Interpretation Comments Monocytes (test code = Monocytes) 9.8 2.0-12.0 [facility] KSMBG2190-57-78 07:59:00 Test Item Value Reference Range Interpretation Comments Phosphorus (test code = Phosphorus) 3.3 2.5-4.5 [facility] KDSSW1152-05-28 07:59:00 Test Item Value Reference Range Interpretation Comments Magnesium Lvl (test code = Magnesium 1.8 1.8-2.4 Lvl) [facility] HospitalGlfgeslNKVRSDBANBLD2881-48-47 07:59:00 Test Item Value Reference Range Interpretation Comments AGAP (test code = AGAP) 11.2 10.0-20.0 [facility] HospitalGoybnbcMGGJLATAYQFT9364-64-99 07:59:00 Test Item Value Reference Range Interpretation Comments eGFR (test code = eGFR) 49 [facility] HospitalIhhtugwUIYBNRWIPTOY7505-70-59 07:59:00 Test Item Value Reference Range Interpretation Comments Calcium Lvl (test code = Calcium Lvl) 8.4 8.5-10.5 [facility] HospitalXgpovvnOJYURNLBXSNM4020-06-57 07:59:00 Test Item Value Reference Range Interpretation Comments Potassium Lvl (test code = Potassium 4.2 3.5-5.1 Lvl) [facility] HospitalWgrhhpkTQGSBPCHTEQY4356-63-03 07:59:00 Test Item Value Reference Range Interpretation Comments Chloride Lvl (test code = Chloride Lvl) 105 95-109 [facility] HospitalRrhqfjzTULIKOWSEUQF8446-37-68 07:59:00 Test Item Value Reference Range Interpretation Comments CO2 (test code = CO2) 28 24-32 [facility] HospitalQupfrjlBTZHLDZIIMMR2858-51-68 07:59:00 Test Item Value Reference Range Interpretation Comments BUN (test code = BUN) 22 7-22 [facility] HospitalJlvpurrMPQNQQDJRMWY5998-01-75 07:59:00 Test Item Value Reference Range Interpretation Comments Glucose Lvl (test code = Glucose Lvl) 109 70-99 [facility] HospitalAvbacisWQSTCQDFGQQM5076-50-28 07:59:00 Test Item Value Reference Range Interpretation Comments Creatinine Lvl (test code = Creatinine 1.07 0.50-1.40 Lvl) [facility] HospitalSukxhrcIBFEPYBCPYHQ6084-07-02 07:59:00 Test Item Value Reference Range Interpretation Comments Sodium Lvl (test code = Sodium Lvl) 140 135-145 [facility]KlakmkmWNPQFCDVOM9503-17-13 07:59:00 Test Item Value Reference Range Interpretation Comments WBC (test code = WBC) 7.3 3.7-10.4 [facility] LakeVnwccjqJZYUKMQKYU9120-05-86 07:59:00 Test Item Value Reference Range Interpretation Comments MCH (test code = MCH) 29.6 pg 27.0-31.0 [facility] LakeTmgreyoPFAIMDTIDQ7689-66-32 07:59:00 Test Item Value Reference Range Interpretation Comments MCV (test code = MCV) 88.9 80.0-98.0 [facility] LakeRycfotdPOKRMPORQL6372-37-46 07:59:00 Test Item Value Reference Range Interpretation Comments Hct (test code = Hct) 36.7 36.0-48.0 [facility] LakeMmaknzqUFPSZKHYBZ0754-69-63 07:59:00 Test Item Value Reference Range Interpretation Comments Hgb (test code = Hgb) 12.2 12.0-16.0 [facility] LakeAlbbpxeFHYUUGNCYP7280-44-36 07:59:00 Test Item Value Reference Range Interpretation Comments RBC (test code = RBC) 4.12 4.20-5.40 [facility] LakeYxsiysgHBNHTRQPLU3206-30-17 07:59:00 Test Item Value Reference Range Interpretation Comments MPV (test code = MPV) 7.3 7.4-10.4 [facility] LakeFadrywlUVGQQIPGZT0428-50-21 07:59:00 Test Item Value Reference Range Interpretation Comments Platelet (test code = Platelet) 290 133-450 [facility] LakeVclebwoOBMXPXMREH8493-54-63 07:59:00 Test Item Value Reference Range Interpretation Comments RDW (test code = RDW) 13.8 11.5-14.5 [facility] LakeUlexqlgNXSUEIXHKX1067-65-58 07:59:00 Test Item Value Reference Range Interpretation Comments MCHC (test code = MCHC) 33.3 32.0-36.0 [facility] LakeUpyeonhHIKBCWKYPE0351-57-93 07:59:00 Test Item Value Reference Range Interpretation Comments Lymphocytes # (test code = Lymphocytes 1.6 1.0-5.5 #) [facility] LakeWasilzoJDWWGUTCLU8998-61-53 07:59:00 Test Item Value Reference Range Interpretation Comments Segs-Bands # (test code = Segs-Bands #) 4.8 1.5-8.1 [facility] LakeHiwnukfHIXHROLUBI1054-61-35 07:59:00 Test Item Value Reference Range Interpretation Comments Eosinophils # (test code 0.2 See_Comment [A utomated message] The = Eosinophils #) system wh h generated this result tra nsmitted reference range : <=0.5. The reference r robbie was not used to int erpret this result as normal/abnormal . [facility] LakeZnkzvzdGBIZCXHNIY2915-94-43 07:59:00 Test Item Value Reference Range Interpretation Comments Monocytes # (test code 0.7 See_Comment [Aut omated message] The = Monocytes #) system which generated this result tra nsmitted reference range : <=0.8. The reference r robbie was not used to int erpret this result as normal/abnormal . [facility] LakeFfajgrzJQBBMLCOQE2654-87-12 07:59:00 Test Item Value Reference Range Interpretation Comments Basophils # (test code 0.1 See_Comment [Aut omated message] The = Basophils #) system which generated this result tra nsmitted reference range : <=0.2. The reference r robbie was not used to int erpret this result as normal/abnormal . [facility] LakeDcnszybRTKCLCCPEX1181-11-62 07:59:00 Test Item Value Reference Range Interpretation Comments Lymphocytes (test code = Lymphocytes) 21.7 20.0-40.0 [facility] LakeZzcgzdnDQBTRGHVGF0577-06-40 07:59:00 Test Item Value Reference Range Interpretation Comments Segs (test code = Segs) 65.6 45.0-75.0 [facility] LakeBgbrxhqSMZGMSOAHJ9562-39-33 07:59:00 Test Item Value Reference Range Interpretation Comments Basophils (test code = 0.8 See_Comment [Aut omated message] The Basophils) system which ge nerated this result tra nsmitted reference range : <=1.0. The reference r robbie was not used to int erpret this result as normal/abnormal . [facility] LakeDmintsmOTUJSDSWQV7090-39-89 07:59:00 Test Item Value Reference Range Interpretation Comments Eosinophils (test code = 2.1 See_Comment [A utomated message] The Eosinophils) system which ge nerated this result tra nsmitted reference range : <=4.0. The reference r robbie was not used to int erpret this result as normal/abnormal . [facility] LakeFbclqsvXHQKUVQTHE9266-65-29 07:59:00 Test Item Value Reference Range Interpretation Comments Monocytes (test code = Monocytes) 9.8 2.0-12.0 [facility] LakeLbtgsjfZFYYHKYVCI3896-61-90 08:51:00 Test Item Value Reference Range Interpretation Comments Segs (test code = Segs) 53.8 45.0-75.0 [facility] LakeQjcafudMZURLNHAXK7801-82-40 08:51:00 Test Item Value Reference Range Interpretation Comments Monocytes # (test code 0.6 See_Comment [Aut omated message] The = Monocytes #) system which generated this result tra nsmitted reference range : <=0.8. The reference r robbie was not used to int erpret this result as normal/abnormal . [facility] LakeBhtsfarXKWYWVEHWY3845-23-57 08:51:00 Test Item Value Reference Range Interpretation Comments Basophils (test code = 0.7 See_Comment [Aut omated message] The Basophils) system which ge nerated this result tra nsmitted reference range : <=1.0. The reference r robbie was not used to int erpret this result as normal/abnormal . [facility] LakeCnyjsmiDDXCGKGKHP7200-61-34 08:51:00 Test Item Value Reference Range Interpretation Comments Segs-Bands # (test code = Segs-Bands #) 3.1 1.5-8.1 [facility] LakeYoblzkxENMXIFHUXK3007-43-27 08:51:00 Test Item Value Reference Range Interpretation Comments Monocytes (test code = Monocytes) 9.7 2.0-12.0 [facility] LakeRziqvelCITLVBCHSJ2313-95-60 08:51:00 Test Item Value Reference Range Interpretation Comments Eosinophils (test code = 3.5 See_Comment [A utomated message] The Eosinophils) system which ge nerated this result tra nsmitted reference range : <=4.0. The reference r robbie was not used to int erpret this result as normal/abnormal . [facility] LakeWmamxlbINHUMOXCIF7161-17-31 08:51:00 Test Item Value Reference Range Interpretation Comments Lymphocytes (test code = Lymphocytes) 32.3 20.0-40.0 [facility] LakeYxiemraDRNDZDSSPQ0864-97-42 08:51:00 Test Item Value Reference Range Interpretation Comments Eosinophils # (test code 0.2 See_Comment [A utomated message] The = Eosinophils #) system whic h generated this result tra nsmitted reference range : <=0.5. The reference r robbie was not used to int erpret this result as normal/abnormal . [facility] LakeVrigwqbGRMCDCSJTL7693-63-93 08:51:00 Test Item Value Reference Range Interpretation Comments Lymphocytes # (test code = Lymphocytes 1.8 1.0-5.5 #) [facility] LakeJkjthegBCUUQRBMLM9870-26-84 08:51:00 Test Item Value Reference Range Interpretation Comments MPV (test code = MPV) 7.6 7.4-10.4 [facility] LakeNufevtaSKWXRVOKZN5928-38-24 08:51:00 Test Item Value Reference Range Interpretation Comments MCH (test code = MCH) 30.0 pg 27.0-31.0 [facility] LakeMuclxcwOTWTAGGFXR4116-52-01 08:51:00 Test Item Value Reference Range Interpretation Comments MCV (test code = MCV) 89.1 80.0-98.0 [facility] LakeZwphufoMYCOWWSPRB2455-08-09 08:51:00 Test Item Value Reference Range Interpretation Comments MCHC (test code = MCHC) 33.7 32.0-36.0 [facility] LakeKtxvmzsEJIEDMJIVM7212-03-03 08:51:00 Test Item Value Reference Range Interpretation Comments RDW (test code = RDW) 13.8 11.5-14.5 [facility] LakeUofxdvsSWTSXBWHLJ8278-41-45 08:51:00 Test Item Value Reference Range Interpretation Comments Platelet (test code = Platelet) 266 133-450 [facility] LakeMeaxjixVBZXOLOZQZ0437-99-07 08:51:00 Test Item Value Reference Range Interpretation Comments Hgb (test code = Hgb) 12.1 12.0-16.0 [facility] LakeVfueyyqQODZUEMRUP0828-56-96 08:51:00 Test Item Value Reference Range Interpretation Comments Hct (test code = Hct) 35.8 36.0-48.0 [facility] LakeAncinnvPOCIYWWLEQ8431-81-50 08:51:00 Test Item Value Reference Range Interpretation Comments WBC (test code = WBC) 5.7 3.7-10.4 [facility] LakeSluqyhbMSKSHEYYLL4848-11-57 08:51:00 Test Item Value Reference Range Interpretation Comments RBC (test code = RBC) 4.01 4.20-5.40 [facility] LakeKxcmnnxCRTWETFUKE3742-05-78 08:51:00 Test Item Value Reference Range Interpretation Comments Segs (test code = Segs) 53.8 45.0-75.0 [facility] LakeEvbmfexOKTHJEXHJP5928-99-15 08:51:00 Test Item Value Reference Range Interpretation Comments Monocytes # (test code 0.6 See_Comment [Aut omated message] The = Monocytes #) system which generated this result tra nsmitted reference range : <=0.8. The reference r robbie was not used to int erpret this result as normal/abnormal . [facility] LakeWggsjziILDBASMCXF2360-07-55 08:51:00 Test Item Value Reference Range Interpretation Comments Basophils (test code = 0.7 See_Comment [Aut omated message] The Basophils) system which ge nerated this result tra nsmitted reference range : <=1.0. The reference r robbie was not used to int erpret this result as normal/abnormal . [facility] LakeKlcgukcCCAAJDUASZ7668-90-28 08:51:00 Test Item Value Reference Range Interpretation Comments Segs-Bands # (test code = Segs-Bands #) 3.1 1.5-8.1 [facility] LakeCrdeyerMURNLACVAO5800-87-29 08:51:00 Test Item Value Reference Range Interpretation Comments Monocytes (test code = Monocytes) 9.7 2.0-12.0 [facility] LakeYgxzxvuBPCCHOYVMF6515-74-52 08:51:00 Test Item Value Reference Range Interpretation Comments Eosinophils (test code = 3.5 See_Comment [A utomated message] The Eosinophils) system which ge nerated this result tra nsmitted reference range : <=4.0. The reference r robbie was not used to int erpret this result as normal/abnormal . [facility] LakeQflpemhBOSAYLNNSV9945-96-02 08:51:00 Test Item Value Reference Range Interpretation Comments Lymphocytes (test code = Lymphocytes) 32.3 20.0-40.0 [facility] LakeAcfpurqIGBBRHWMGJ8438-49-12 08:51:00 Test Item Value Reference Range Interpretation Comments Eosinophils # (test code 0.2 See_Comment [A utomated message] The = Eosinophils #) system ic h generated this result tra nsmitted reference range : <=0.5. The reference r robbie was not used to int erpret this result as normal/abnormal . [facility] LakeHajvklsYQBSCLSSRO9994-97-54 08:51:00 Test Item Value Reference Range Interpretation Comments Lymphocytes # (test code = Lymphocytes 1.8 1.0-5.5 #) [facility] LakeVjrralfFOVQRUIEQQ3451-12-65 08:51:00 Test Item Value Reference Range Interpretation Comments MPV (test code = MPV) 7.6 7.4-10.4 [facility] LakeUlahqhhYKLGYOADWO4102-05-09 08:51:00 Test Item Value Reference Range Interpretation Comments MCH (test code = MCH) 30.0 pg 27.0-31.0 [facility] LakeWmeylusFTTFKKVGUQ5966-40-17 08:51:00 Test Item Value Reference Range Interpretation Comments MCV (test code = MCV) 89.1 80.0-98.0 [facility] LakeVdolsqhTMLTKEVNGR9325-92-72 08:51:00 Test Item Value Reference Range Interpretation Comments MCHC (test code = MCHC) 33.7 32.0-36.0 [facility] LakeTnlbypzIYDYGUCPUC6161-13-18 08:51:00 Test Item Value Reference Range Interpretation Comments RDW (test code = RDW) 13.8 11.5-14.5 [facility] LakeXrfvavfSHNSWOPUOG0268-58-08 08:51:00 Test Item Value Reference Range Interpretation Comments Platelet (test code = Platelet) 266 133-450 [facility] LakeQkxnothJLPZGFKYWF1084-44-26 08:51:00 Test Item Value Reference Range Interpretation Comments Hgb (test code = Hgb) 12.1 12.0-16.0 [facility] LakeGwgqgmbKYPATJUNPA7117-69-54 08:51:00 Test Item Value Reference Range Interpretation Comments Hct (test code = Hct) 35.8 36.0-48.0 [facility] LakeJwcteihZNDYVNVVWO5114-84-35 08:51:00 Test Item Value Reference Range Interpretation Comments WBC (test code = WBC) 5.7 3.7-10.4 [facility] LakeAdjjbmtHXTMXGPMNR9974-21-93 08:51:00 Test Item Value Reference Range Interpretation Comments RBC (test code = RBC) 4.01 4.20-5.40 [facility] LakeVatqxpzFYPGHIQNDX5764-67-97 08:51:00 Test Item Value Reference Range Interpretation Comments Segs (test code = Segs) 53.8 45.0-75.0 [facility] LakeQpdwruwEMBDVFVQKP1695-86-27 08:51:00 Test Item Value Reference Range Interpretation Comments Monocytes # (test code 0.6 See_Comment [Aut omated message] The = Monocytes #) system which generated this result tra nsmitted reference range : <=0.8. The reference r robbie was not used to int erpret this result as normal/abnormal . [facility] LakeYvfiwjfJILEOZVFDV4418-14-39 08:51:00 Test Item Value Reference Range Interpretation Comments Basophils (test code = 0.7 See_Comment [Aut omated message] The Basophils) system which ge nerated this result tra nsmitted reference range : <=1.0. The reference r robbie was not used to int erpret this result as normal/abnormal . [facility] LakeEqsytwfORSIIBDLBQ0168-14-73 08:51:00 Test Item Value Reference Range Interpretation Comments Segs-Bands # (test code = Segs-Bands #) 3.1 1.5-8.1 [facility] LakeRqttgibKIQSERKBFL3926-42-61 08:51:00 Test Item Value Reference Range Interpretation Comments Monocytes (test code = Monocytes) 9.7 2.0-12.0 [facility] LakeJarzyinRMRUWHDFUG6647-99-17 08:51:00 Test Item Value Reference Range Interpretation Comments Eosinophils (test code = 3.5 See_Comment [A utomated message] The Eosinophils) system which ge nerated this result tra nsmitted reference range : <=4.0. The reference r robbie was not used to int erpret this result as normal/abnormal . [facility] LakeGuczoskTJDPSVBVEQ9332-73-06 08:51:00 Test Item Value Reference Range Interpretation Comments Lymphocytes (test code = Lymphocytes) 32.3 20.0-40.0 [facility] LakeYjncjspTUGPWGNVTV9768-39-29 08:51:00 Test Item Value Reference Range Interpretation Comments Eosinophils # (test code 0.2 See_Comment [A utomated message] The = Eosinophils #) system ic h generated this result tra nsmitted reference range : <=0.5. The reference r robbie was not used to int erpret this result as normal/abnormal . [facility] LakeQyympfwKUIAKENFBY8485-89-89 08:51:00 Test Item Value Reference Range Interpretation Comments Lymphocytes # (test code = Lymphocytes 1.8 1.0-5.5 #) [facility] LakeRmygddtZJGDUAYJBM2713-98-75 08:51:00 Test Item Value Reference Range Interpretation Comments MPV (test code = MPV) 7.6 7.4-10.4 [facility] LakeSyyjitnIJTJRXDTJC6917-21-28 08:51:00 Test Item Value Reference Range Interpretation Comments MCH (test code = MCH) 30.0 pg 27.0-31.0 [facility] LakeButefltAKDJYSPYRY9807-65-08 08:51:00 Test Item Value Reference Range Interpretation Comments MCV (test code = MCV) 89.1 80.0-98.0 [facility] LakeWbziejhIOGHIAAGJW1642-85-99 08:51:00 Test Item Value Reference Range Interpretation Comments MCHC (test code = MCHC) 33.7 32.0-36.0 [facility] LakeGalbryrNHPENOLEQY1403-50-43 08:51:00 Test Item Value Reference Range Interpretation Comments RDW (test code = RDW) 13.8 11.5-14.5 [facility] LakeEuqzrawOQGMBLVLQE3876-52-80 08:51:00 Test Item Value Reference Range Interpretation Comments Platelet (test code = Platelet) 266 133-450 [facility] LakeSywxvnbSSCFCSIUVQ7605-52-29 08:51:00 Test Item Value Reference Range Interpretation Comments Hgb (test code = Hgb) 12.1 12.0-16.0 [facility] LakeOcidhauTPGPYOVSSY7412-71-56 08:51:00 Test Item Value Reference Range Interpretation Comments Hct (test code = Hct) 35.8 36.0-48.0 [facility] LakeYjeogupJHKPUYDONG1554-43-42 08:51:00 Test Item Value Reference Range Interpretation Comments WBC (test code = WBC) 5.7 3.7-10.4 [facility] LakeZfiqzwcIBVLEJFIGK6668-17-42 08:51:00 Test Item Value Reference Range Interpretation Comments RBC (test code = RBC) 4.01 4.20-5.40 [facility] LakeDgqwrkgAWFCKHIJIF7217-73-27 08:51:00 Test Item Value Reference Range Interpretation Comments Segs (test code = Segs) 53.8 45.0-75.0 [facility] LakeYkofnbiUIWXTPOFHV7453-33-51 08:51:00 Test Item Value Reference Range Interpretation Comments Monocytes # (test code 0.6 See_Comment [Aut omated message] The = Monocytes #) system which generated this result tra nsmitted reference range : <=0.8. The reference r robbie was not used to int erpret this result as normal/abnormal . [facility] LakeFuuseomMQNQZCVMGN4134-18-50 08:51:00 Test Item Value Reference Range Interpretation Comments Basophils (test code = 0.7 See_Comment [Aut omated message] The Basophils) system which ge nerated this result tra nsmitted reference range : <=1.0. The reference r robbie was not used to int erpret this result as normal/abnormal . [facility] [place]ZZGU1787-06-77 08:51:00 Test Item Value Reference Range Interpretation Comments Segs-Bands # (test code = Segs-Bands #) 3.1 1.5-8.1 [facility] LakeNpszkqmDSQLEOOAKO0753-54-79 08:51:00 Test Item Value Reference Range Interpretation Comments Monocytes (test code = Monocytes) 9.7 2.0-12.0 [facility] LakePujgpxxLUHJVPMPZB5998-47-12 08:51:00 Test Item Value Reference Range Interpretation Comments Eosinophils (test code = 3.5 See_Comment [A utomated message] The Eosinophils) system which ge nerated this result tra nsmitted reference range : <=4.0. The reference r robbie was not used to int erpret this result as normal/abnormal . [facility] LakeBrsybjwITCXDTOZHG7297-76-85 08:51:00 Test Item Value Reference Range Interpretation Comments Lymphocytes (test code = Lymphocytes) 32.3 20.0-40.0 [facility] LakeJryfvlrGMJCDQKSHA8998-50-01 08:51:00 Test Item Value Reference Range Interpretation Comments Eosinophils # (test code 0.2 See_Comment [A utomated message] The = Eosinophils #) system whic h generated this result tra nsmitted reference range : <=0.5. The reference r robbie was not used to int erpret this result as normal/abnormal . [facility] LakeStbhvehNYEEELALWQ9715-90-93 08:51:00 Test Item Value Reference Range Interpretation Comments Lymphocytes # (test code = Lymphocytes 1.8 1.0-5.5 #) [facility] LakeKruowlbJIJUPOIOIG8364-58-50 08:51:00 Test Item Value Reference Range Interpretation Comments MPV (test code = MPV) 7.6 7.4-10.4 [facility] LakeYojdejgRJMDIIQCLH7968-78-84 08:51:00 Test Item Value Reference Range Interpretation Comments MCH (test code = MCH) 30.0 pg 27.0-31.0 [facility] LakeGhlvlcuKZCDMHKDCS5097-44-05 08:51:00 Test Item Value Reference Range Interpretation Comments MCV (test code = MCV) 89.1 80.0-98.0 [facility] LakeXplbdmmDZVEPIJBYT9639-87-43 08:51:00 Test Item Value Reference Range Interpretation Comments MCHC (test code = MCHC) 33.7 32.0-36.0 [facility] LakeJfkshsdRATFKYRIYB9039-77-81 08:51:00 Test Item Value Reference Range Interpretation Comments RDW (test code = RDW) 13.8 11.5-14.5 [facility] LakeZkqkfmaETESJZRSTB2043-94-64 08:51:00 Test Item Value Reference Range Interpretation Comments Platelet (test code = Platelet) 266 133-450 [facility] LakeVtqblvtOZPOKRFIVI9084-39-10 08:51:00 Test Item Value Reference Range Interpretation Comments Hgb (test code = Hgb) 12.1 12.0-16.0 [facility] LakeOkjakicDTEZLFVFSM5265-12-24 08:51:00 Test Item Value Reference Range Interpretation Comments Hct (test code = Hct) 35.8 36.0-48.0 [facility] LakeVzpocroLRGOIWGWAD4954-40-50 08:51:00 Test Item Value Reference Range Interpretation Comments WBC (test code = WBC) 5.7 3.7-10.4 [facility] LakeMxaqnynABDBQYTKQT5360-60-54 08:51:00 Test Item Value Reference Range Interpretation Comments RBC (test code = RBC) 4.01 4.20-5.40 [facility] LakeLcqnmbcEAGRPVXSYJ9642-57-93 08:51:00 Test Item Value Reference Range Interpretation Comments Segs (test code = Segs) 53.8 45.0-75.0 [facility] LakeQzwikalSJBXKKPSPB8550-07-06 08:51:00 Test Item Value Reference Range Interpretation Comments Monocytes # (test code 0.6 See_Comment [Aut omated message] The = Monocytes #) system which generated this result tra nsmitted reference range : <=0.8. The reference r robbie was not used to int erpret this result as normal/abnormal . [facility] LakeAiajfwuUZFKDLMKGE9476-87-42 08:51:00 Test Item Value Reference Range Interpretation Comments Basophils (test code = 0.7 See_Comment [Aut omated message] The Basophils) system which ge nerated this result tra nsmitted reference range : <=1.0. The reference r robbie was not used to int erpret this result as normal/abnormal . [facility] LakeBhjpulfMODZBPPZTS8698-82-83 08:51:00 Test Item Value Reference Range Interpretation Comments Segs-Bands # (test code = Segs-Bands #) 3.1 1.5-8.1 [facility] LakeYdyimxwDFNQVNFQBC3434-96-65 08:51:00 Test Item Value Reference Range Interpretation Comments Monocytes (test code = Monocytes) 9.7 2.0-12.0 [facility] LakeYdbdlvyMTHRHMMUQU8889-42-59 08:51:00 Test Item Value Reference Range Interpretation Comments Eosinophils (test code = 3.5 See_Comment [A utomated message] The Eosinophils) system which ge nerated this result tra nsmitted reference range : <=4.0. The reference r robbie was not used to int erpret this result as normal/abnormal . [facility] LakeGwpizlcJLUOMUSGPI3645-57-35 08:51:00 Test Item Value Reference Range Interpretation Comments Lymphocytes (test code = Lymphocytes) 32.3 20.0-40.0 [facility] LakeQmtgtnaHVUXBMFJWB4421-80-58 08:51:00 Test Item Value Reference Range Interpretation Comments Eosinophils # (test code 0.2 See_Comment [A utomated message] The = Eosinophils #) system whic h generated this result tra nsmitted reference range : <=0.5. The reference r robbie was not used to int erpret this result as normal/abnormal . [facility] LakeRodpdiiQCWCNTWLVU9790-57-97 08:51:00 Test Item Value Reference Range Interpretation Comments Lymphocytes # (test code = Lymphocytes 1.8 1.0-5.5 #) [facility] LakeJayvrxrAXIWUWEKQY2856-39-53 08:51:00 Test Item Value Reference Range Interpretation Comments MPV (test code = MPV) 7.6 7.4-10.4 [facility] LakeSuinivwCZOILZPLQN0349-30-98 08:51:00 Test Item Value Reference Range Interpretation Comments MCH (test code = MCH) 30.0 pg 27.0-31.0 [facility] LakeScknmugVLYHXMAIZG3785-65-61 08:51:00 Test Item Value Reference Range Interpretation Comments MCV (test code = MCV) 89.1 80.0-98.0 [facility] LakeXaoxzxhPHRCXDQXYK8956-81-09 08:51:00 Test Item Value Reference Range Interpretation Comments MCHC (test code = MCHC) 33.7 32.0-36.0 [facility] LakeKzdvfbkRMYQFRPWFH9914-31-89 08:51:00 Test Item Value Reference Range Interpretation Comments RDW (test code = RDW) 13.8 11.5-14.5 [facility] LakeNeixhkvIYDSQQVECG7647-48-63 08:51:00 Test Item Value Reference Range Interpretation Comments Platelet (test code = Platelet) 266 133-450 [facility] LakeOslgumrQHNYFWPQFL0751-23-58 08:51:00 Test Item Value Reference Range Interpretation Comments Hgb (test code = Hgb) 12.1 12.0-16.0 [facility] LakeSchcfnfTWARSDYCMV2608-91-61 08:51:00 Test Item Value Reference Range Interpretation Comments Hct (test code = Hct) 35.8 36.0-48.0 [facility] LakeYtuugcwKZGKXJMDUS7404-79-96 08:51:00 Test Item Value Reference Range Interpretation Comments WBC (test code = WBC) 5.7 3.7-10.4 [facility] LakeDwckcfvJCFQRJZECW4136-08-90 08:51:00 Test Item Value Reference Range Interpretation Comments RBC (test code = RBC) 4.01 4.20-5.40 [facility] LakeGugjpbsINGZGWAVXP2433-81-14 08:51:00 Test Item Value Reference Range Interpretation Comments Segs (test code = Segs) 53.8 45.0-75.0 [facility] LakeQomrjsuKKTYYJCGAE4128-76-87 08:51:00 Test Item Value Reference Range Interpretation Comments Monocytes # (test code 0.6 See_Comment [Aut omated message] The = Monocytes #) system which generated this result tra nsmitted reference range : <=0.8. The reference r robbie was not used to int erpret this result as normal/abnormal . [facility] LakeBkkhvncIMREXGTNLH6493-28-76 08:51:00 Test Item Value Reference Range Interpretation Comments Basophils (test code = 0.7 See_Comment [Aut omated message] The Basophils) system which ge nerated this result tra nsmitted reference range : <=1.0. The reference r robbie was not used to int erpret this result as normal/abnormal . [facility] LakeCrbyfjaGWIMESYOUK1421-44-59 08:51:00 Test Item Value Reference Range Interpretation Comments Segs-Bands # (test code = Segs-Bands #) 3.1 1.5-8.1 [facility] LakeOdnbgxpASRBBOBQSE9567-61-15 08:51:00 Test Item Value Reference Range Interpretation Comments Monocytes (test code = Monocytes) 9.7 2.0-12.0 [facility] LakeKvnfgxtBXXPOWCYLS0014-93-65 08:51:00 Test Item Value Reference Range Interpretation Comments Eosinophils (test code = 3.5 See_Comment [A utomated message] The Eosinophils) system which ge nerated this result tra nsmitted reference range : <=4.0. The reference r robbie was not used to int erpret this result as normal/abnormal . [facility] LakeWoufshyUWFUEXYTRA8085-51-75 08:51:00 Test Item Value Reference Range Interpretation Comments Lymphocytes (test code = Lymphocytes) 32.3 20.0-40.0 [facility] LakeNdrzhfdQTMQFKIVWA7076-84-26 08:51:00 Test Item Value Reference Range Interpretation Comments Eosinophils # (test code 0.2 See_Comment [A utomated message] The = Eosinophils #) system whic h generated this result tra nsmitted reference range : <=0.5. The reference r robbie was not used to int erpret this result as normal/abnormal . [facility] LakeKncqyvgXSVEETVMFJ2895-24-32 08:51:00 Test Item Value Reference Range Interpretation Comments Lymphocytes # (test code = Lymphocytes 1.8 1.0-5.5 #) [facility] LakeIoumwufZHCMRXTQIL1449-72-18 08:51:00 Test Item Value Reference Range Interpretation Comments MPV (test code = MPV) 7.6 7.4-10.4 [facility] LakeYsyvcztIQJYZAKANR1730-66-61 08:51:00 Test Item Value Reference Range Interpretation Comments MCH (test code = MCH) 30.0 pg 27.0-31.0 [facility] LakeYnlmixoQLKEPTDORS5350-65-81 08:51:00 Test Item Value Reference Range Interpretation Comments MCV (test code = MCV) 89.1 80.0-98.0 [facility] LakeFrjscodGHLRWYKLOW4491-96-43 08:51:00 Test Item Value Reference Range Interpretation Comments MCHC (test code = MCHC) 33.7 32.0-36.0 [facility] LakeIrvnxgxBGYAFUBLHY1326-35-99 08:51:00 Test Item Value Reference Range Interpretation Comments RDW (test code = RDW) 13.8 11.5-14.5 [facility] LakeDiyargwGSPRRLDTBI3877-53-41 08:51:00 Test Item Value Reference Range Interpretation Comments Platelet (test code = Platelet) 266 133-450 [facility] LakeFpkwvyeAVBXNVAPPK0595-82-54 08:51:00 Test Item Value Reference Range Interpretation Comments Hgb (test code = Hgb) 12.1 12.0-16.0 [facility] LakeDngoahsMVNMQVKVJC3421-43-47 08:51:00 Test Item Value Reference Range Interpretation Comments Hct (test code = Hct) 35.8 36.0-48.0 [facility] LakeHytjkxoIAQLEBEDMD1277-06-12 08:51:00 Test Item Value Reference Range Interpretation Comments WBC (test code = WBC) 5.7 3.7-10.4 [facility] LakeXnomyqlTVQKNGUINY8996-90-47 08:51:00 Test Item Value Reference Range Interpretation Comments RBC (test code = RBC) 4.01 4.20-5.40 [facility] LakePgpzdtgDLMUMXZEDI4375-85-44 08:51:00 Test Item Value Reference Range Interpretation Comments Segs (test code = Segs) 53.8 45.0-75.0 [facility] LakeQdkjiouSSNLTGUAZB4809-65-53 08:51:00 Test Item Value Reference Range Interpretation Comments Monocytes # (test code 0.6 See_Comment [Aut omated message] The = Monocytes #) system which generated this result tra nsmitted reference range : <=0.8. The reference r robbie was not used to int erpret this result as normal/abnormal . [facility] LakeAfjxovyYJQYKFIYOJ1920-01-17 08:51:00 Test Item Value Reference Range Interpretation Comments Basophils (test code = 0.7 See_Comment [Aut omated message] The Basophils) system which ge nerated this result tra nsmitted reference range : <=1.0. The reference r robbie was not used to int erpret this result as normal/abnormal . [facility] LakeTaoxtvqUPDVZNYSWP3543-23-61 08:51:00 Test Item Value Reference Range Interpretation Comments Segs-Bands # (test code = Segs-Bands #) 3.1 1.5-8.1 [facility] LakeTsiylhrNVQRUAULRM9652-98-55 08:51:00 Test Item Value Reference Range Interpretation Comments Monocytes (test code = Monocytes) 9.7 2.0-12.0 [facility] LakeTtjjexzTMFXWMLKFR4105-97-22 08:51:00 Test Item Value Reference Range Interpretation Comments Eosinophils (test code = 3.5 See_Comment [A utomated message] The Eosinophils) system which ge nerated this result tra nsmitted reference range : <=4.0. The reference r robbie was not used to int erpret this result as normal/abnormal . [facility] LakeWqwnuwwMIANYPSZQX4668-08-27 08:51:00 Test Item Value Reference Range Interpretation Comments Lymphocytes (test code = Lymphocytes) 32.3 20.0-40.0 [facility] LakeHizegcsLVMMRKXXJP9152-48-76 08:51:00 Test Item Value Reference Range Interpretation Comments Eosinophils # (test code 0.2 See_Comment [A utomated message] The = Eosinophils #) system whic h generated this result tra nsmitted reference range : <=0.5. The reference r robbie was not used to int erpret this result as normal/abnormal . [facility] LakeOutujpwITAYMUJWTP2749-28-04 08:51:00 Test Item Value Reference Range Interpretation Comments Lymphocytes # (test code = Lymphocytes 1.8 1.0-5.5 #) [facility] LakeDrjhtuiRUWNVAMUKZ0820-42-08 08:51:00 Test Item Value Reference Range Interpretation Comments MPV (test code = MPV) 7.6 7.4-10.4 [facility] LakeKhqfkddRMORDBRJNM4147-96-69 08:51:00 Test Item Value Reference Range Interpretation Comments MCH (test code = MCH) 30.0 pg 27.0-31.0 [facility] LakeMtawqxgLDPYELXSAA9555-80-20 08:51:00 Test Item Value Reference Range Interpretation Comments MCV (test code = MCV) 89.1 80.0-98.0 [facility] LakeWlzswilLNJVXZLHFY2352-92-53 08:51:00 Test Item Value Reference Range Interpretation Comments MCHC (test code = MCHC) 33.7 32.0-36.0 [facility] LakeJpvzvbrUSCHHKIYID4762-88-03 08:51:00 Test Item Value Reference Range Interpretation Comments RDW (test code = RDW) 13.8 11.5-14.5 [facility] LakeYtabunpRCTDEIUDEO3174-54-38 08:51:00 Test Item Value Reference Range Interpretation Comments Platelet (test code = Platelet) 266 133-450 [facility] LakeJmqwfraPPNKVWDQTV1305-94-13 08:51:00 Test Item Value Reference Range Interpretation Comments Hgb (test code = Hgb) 12.1 12.0-16.0 [facility] LakeYfqupyrPTHOQQGNTD7923-11-40 08:51:00 Test Item Value Reference Range Interpretation Comments Hct (test code = Hct) 35.8 36.0-48.0 [facility] LakeSgdowfuSEJJOKVZIJ0198-23-53 08:51:00 Test Item Value Reference Range Interpretation Comments WBC (test code = WBC) 5.7 3.7-10.4 [facility] LakeEgyyqejNONCQMWKQT5058-68-65 08:51:00 Test Item Value Reference Range Interpretation Comments RBC (test code = RBC) 4.01 4.20-5.40 [facility] LakeRxnkdujURCVWAQNCF5967-21-14 08:51:00 Test Item Value Reference Range Interpretation Comments Segs (test code = Segs) 53.8 45.0-75.0 [facility] LakeZgghlcoHTFOKMOLJO7119-92-59 08:51:00 Test Item Value Reference Range Interpretation Comments Monocytes # (test code 0.6 See_Comment [Aut omated message] The = Monocytes #) system which generated this result tra nsmitted reference range : <=0.8. The reference r robbie was not used to int erpret this result as normal/abnormal . [facility] LakeWltvwyqKIDUISIVLL8430-36-11 08:51:00 Test Item Value Reference Range Interpretation Comments Basophils (test code = 0.7 See_Comment [Aut omated message] The Basophils) system which ge nerated this result tra nsmitted reference range : <=1.0. The reference r robbie was not used to int erpret this result as normal/abnormal . [facility] LakeXwimtmuUTURODUNIE3862-62-93 08:51:00 Test Item Value Reference Range Interpretation Comments Segs-Bands # (test code = Segs-Bands #) 3.1 1.5-8.1 [facility] LakeJmsrpciUUOMCWGNEG6727-82-21 08:51:00 Test Item Value Reference Range Interpretation Comments Monocytes (test code = Monocytes) 9.7 2.0-12.0 [facility] LakePbdeympLWUUHZECGX4074-50-05 08:51:00 Test Item Value Reference Range Interpretation Comments Eosinophils (test code = 3.5 See_Comment [A utomated message] The Eosinophils) system which ge nerated this result tra nsmitted reference range : <=4.0. The reference r robbie was not used to int erpret this result as normal/abnormal . [facility] LakeAjpocwsOAMECJAAVK2100-62-91 08:51:00 Test Item Value Reference Range Interpretation Comments Lymphocytes (test code = Lymphocytes) 32.3 20.0-40.0 [facility] LakeFaioxlmAUROCFCKNA9439-56-05 08:51:00 Test Item Value Reference Range Interpretation Comments Eosinophils # (test code 0.2 See_Comment [A utomated message] The = Eosinophils #) system whic h generated this result tra nsmitted reference range : <=0.5. The reference r robbie was not used to int erpret this result as normal/abnormal . [facility] LakeHhpmuauGDUHHNDTYQ2756-73-35 08:51:00 Test Item Value Reference Range Interpretation Comments Lymphocytes # (test code = Lymphocytes 1.8 1.0-5.5 #) [facility] LakeGehfxjsUOFZQFTFLH1077-15-58 08:51:00 Test Item Value Reference Range Interpretation Comments MPV (test code = MPV) 7.6 7.4-10.4 [facility] LakeFetyafvNWJHACIWIU1624-65-97 08:51:00 Test Item Value Reference Range Interpretation Comments MCH (test code = MCH) 30.0 pg 27.0-31.0 [facility] LakeMjxgzgaUXBXPPSSFG4657-80-04 08:51:00 Test Item Value Reference Range Interpretation Comments MCV (test code = MCV) 89.1 80.0-98.0 [facility] LakeSnxmhfeWOYVSOIVSM0596-25-81 08:51:00 Test Item Value Reference Range Interpretation Comments MCHC (test code = MCHC) 33.7 32.0-36.0 [facility] LakeNqbzlfgZMAULFDUCP0229-08-05 08:51:00 Test Item Value Reference Range Interpretation Comments RDW (test code = RDW) 13.8 11.5-14.5 [facility] LakeLhlydbrQAYTUFXZXL2648-24-66 08:51:00 Test Item Value Reference Range Interpretation Comments Platelet (test code = Platelet) 266 133-450 [facility] LakeXrvfrngXQTJUJODVZ4209-14-09 08:51:00 Test Item Value Reference Range Interpretation Comments Hgb (test code = Hgb) 12.1 12.0-16.0 [facility] LakeLhenevtLRESNOWUGR0179-62-24 08:51:00 Test Item Value Reference Range Interpretation Comments Hct (test code = Hct) 35.8 36.0-48.0 [facility] LakeWlvcgnhMWUUOLZKME4308-21-23 08:51:00 Test Item Value Reference Range Interpretation Comments WBC (test code = WBC) 5.7 3.7-10.4 [facility] LakeWaovuxyRJFEMKJPQG8696-30-94 08:51:00 Test Item Value Reference Range Interpretation Comments RBC (test code = RBC) 4.01 4.20-5.40 [facility] LakeMqawgtiWEYONOCCZR1586-21-57 08:51:00 Test Item Value Reference Range Interpretation Comments Segs (test code = Segs) 53.8 45.0-75.0 [facility] LakeZmujafqTMLTRIZDAC8648-08-88 08:51:00 Test Item Value Reference Range Interpretation Comments Monocytes # (test code 0.6 See_Comment [Aut omated message] The = Monocytes #) system which generated this result tra nsmitted reference range : <=0.8. The reference r robbie was not used to int erpret this result as normal/abnormal . [facility] LakeCyeapvgIGFDQETJQU3428-00-06 08:51:00 Test Item Value Reference Range Interpretation Comments Basophils (test code = 0.7 See_Comment [Aut omated message] The Basophils) system which ge nerated this result tra nsmitted reference range : <=1.0. The reference r robbie was not used to int erpret this result as normal/abnormal . [facility] LakeZabthefPKOSZNLIUM6159-25-66 08:51:00 Test Item Value Reference Range Interpretation Comments Segs-Bands # (test code = Segs-Bands #) 3.1 1.5-8.1 [facility] LakeTnvjvkhIRSOTHUYGP5172-57-30 08:51:00 Test Item Value Reference Range Interpretation Comments Monocytes (test code = Monocytes) 9.7 2.0-12.0 [facility] LakeYomnnwgZSFAHEIKQJ4919-20-10 08:51:00 Test Item Value Reference Range Interpretation Comments Eosinophils (test code = 3.5 See_Comment [A utomated message] The Eosinophils) system which ge nerated this result tra nsmitted reference range : <=4.0. The reference r robbie was not used to int erpret this result as normal/abnormal . [facility] LakeXdhuqreSYPJTIGEUM8534-71-58 08:51:00 Test Item Value Reference Range Interpretation Comments Lymphocytes (test code = Lymphocytes) 32.3 20.0-40.0 [facility] LakeRbwduqkWHEFYVUWXX6769-58-90 08:51:00 Test Item Value Reference Range Interpretation Comments Eosinophils # (test code 0.2 See_Comment [A utomated message] The = Eosinophils #) system whic h generated this result tra nsmitted reference range : <=0.5. The reference r robbie was not used to int erpret this result as normal/abnormal . [facility] LakeOkkialeDNWLHKNGJI9722-95-49 08:51:00 Test Item Value Reference Range Interpretation Comments Lymphocytes # (test code = Lymphocytes 1.8 1.0-5.5 #) [facility] LakeKvsfewyICABQGVXVF9237-44-16 08:51:00 Test Item Value Reference Range Interpretation Comments MPV (test code = MPV) 7.6 7.4-10.4 [facility] LakeWafujvpXYWCYIYXJX1360-43-81 08:51:00 Test Item Value Reference Range Interpretation Comments MCH (test code = MCH) 30.0 pg 27.0-31.0 [facility] LakeZxwnzgqXGRZUVQOQO6813-52-17 08:51:00 Test Item Value Reference Range Interpretation Comments MCV (test code = MCV) 89.1 80.0-98.0 [facility] LakeVlfphydOJSYXSJJDR6291-00-65 08:51:00 Test Item Value Reference Range Interpretation Comments MCHC (test code = MCHC) 33.7 32.0-36.0 [facility] LakeIralnpmYSBYVMXZFX3080-68-03 08:51:00 Test Item Value Reference Range Interpretation Comments RDW (test code = RDW) 13.8 11.5-14.5 [facility] LakeNyylwmbGXNXYEERUV0646-21-60 08:51:00 Test Item Value Reference Range Interpretation Comments Platelet (test code = Platelet) 266 133-450 [facility] LakeXquvscdRYXLJMWGXA3237-95-42 08:51:00 Test Item Value Reference Range Interpretation Comments Hgb (test code = Hgb) 12.1 12.0-16.0 [facility] LakeJnziwwrDNPILFCFKL5359-60-42 08:51:00 Test Item Value Reference Range Interpretation Comments Hct (test code = Hct) 35.8 36.0-48.0 [facility] LakeZiimmdeNYPBPNGKAT3064-31-42 08:51:00 Test Item Value Reference Range Interpretation Comments WBC (test code = WBC) 5.7 3.7-10.4 [facility] LakeGavbxibZPBNBJAMKE6371-73-24 08:51:00 Test Item Value Reference Range Interpretation Comments RBC (test code = RBC) 4.01 4.20-5.40 [facility] LakeEfeezcpNYGYDQQEQA3774-38-72 08:51:00 Test Item Value Reference Range Interpretation Comments Segs (test code = Segs) 53.8 45.0-75.0 [facility] LakeEhmmulsFHXSAKOXBT1786-89-88 08:51:00 Test Item Value Reference Range Interpretation Comments Monocytes # (test code 0.6 See_Comment [Aut omated message] The = Monocytes #) system which generated this result tra nsmitted reference range : <=0.8. The reference r robbie was not used to int erpret this result as normal/abnormal . [facility] LakeCtghlmbEMJMPVQBKC9771-11-18 08:51:00 Test Item Value Reference Range Interpretation Comments Basophils (test code = 0.7 See_Comment [Aut omated message] The Basophils) system which ge nerated this result tra nsmitted reference range : <=1.0. The reference r robbie was not used to int erpret this result as normal/abnormal . [facility] LakeLwqnulgCMVZIQEHEW2911-64-27 08:51:00 Test Item Value Reference Range Interpretation Comments Segs-Bands # (test code = Segs-Bands #) 3.1 1.5-8.1 [facility] LakeZxucqcjBMVGFBSUVV5707-38-60 08:51:00 Test Item Value Reference Range Interpretation Comments Monocytes (test code = Monocytes) 9.7 2.0-12.0 [facility]OejmfzuHZDEXDZNWV6831-01-68 08:51:00 Test Item Value Reference Range Interpretation Comments Eosinophils (test code = 3.5 See_Comment [A utomated message] The Eosinophils) system which ge nerated this result tra nsmitted reference range : <=4.0. The reference r robbie was not used to int erpret this result as normal/abnormal . [facility] LakeBhvdlutRUAETZTJVD2943-42-23 08:51:00 Test Item Value Reference Range Interpretation Comments Lymphocytes (test code = Lymphocytes) 32.3 20.0-40.0 [facility] LakeBlqmpvxNJJRQBVTPQ6925-81-69 08:51:00 Test Item Value Reference Range Interpretation Comments Eosinophils # (test code 0.2 See_Comment [A utomated message] The = Eosinophils #) system whic h generated this result tra nsmitted reference range : <=0.5. The reference r robbie was not used to int erpret this result as normal/abnormal . [facility] LakeZdgrkjwSCRBAQYWCT3229-60-41 08:51:00 Test Item Value Reference Range Interpretation Comments Lymphocytes # (test code = Lymphocytes 1.8 1.0-5.5 #) [facility] LakeOajoaryLLZCGCMVZH4820-85-18 08:51:00 Test Item Value Reference Range Interpretation Comments MPV (test code = MPV) 7.6 7.4-10.4 [facility] LakeOpqdwliDORAIQPXJG8556-23-33 08:51:00 Test Item Value Reference Range Interpretation Comments MCH (test code = MCH) 30.0 pg 27.0-31.0 [facility] LakeJosuiaoMVFQOKUNKL3599-76-06 08:51:00 Test Item Value Reference Range Interpretation Comments MCV (test code = MCV) 89.1 80.0-98.0 [facility] LakeOhkapabMDFTQQRQIC3223-99-65 08:51:00 Test Item Value Reference Range Interpretation Comments MCHC (test code = MCHC) 33.7 32.0-36.0 [facility] LakeZvesjzkQPXCIGVNPI9111-35-71 08:51:00 Test Item Value Reference Range Interpretation Comments RDW (test code = RDW) 13.8 11.5-14.5 [facility] LakeFvvcevwGNNKZXQDCC0710-04-89 08:51:00 Test Item Value Reference Range Interpretation Comments Platelet (test code = Platelet) 266 133-450 [facility] LakeLsukgtfNGRTRQVYME0117-95-50 08:51:00 Test Item Value Reference Range Interpretation Comments Hgb (test code = Hgb) 12.1 12.0-16.0 [facility] LakeSarruczTWQGRMOOUD7662-51-72 08:51:00 Test Item Value Reference Range Interpretation Comments Hct (test code = Hct) 35.8 36.0-48.0 [facility] LakeArhbtqeDRRKBSQETT5442-27-85 08:51:00 Test Item Value Reference Range Interpretation Comments WBC (test code = WBC) 5.7 3.7-10.4 [facility] LakeHioqxmoNSZVWTTGYA4472-98-64 08:51:00 Test Item Value Reference Range Interpretation Comments RBC (test code = RBC) 4.01 4.20-5.40 [facility] LakeJbbsnbxWKFTXWTZGP6853-24-86 08:51:00 Test Item Value Reference Range Interpretation Comments Segs (test code = Segs) 53.8 45.0-75.0 [facility] LakeCpqdxkySMAJUGRHIC6575-87-62 08:51:00 Test Item Value Reference Range Interpretation Comments Monocytes # (test code 0.6 See_Comment [Aut omated message] The = Monocytes #) system which generated this result tra nsmitted reference range : <=0.8. The reference r robbie was not used to int erpret this result as normal/abnormal . [facility] LakeKnhppvhGDFHJBCFOF4312-74-76 08:51:00 Test Item Value Reference Range Interpretation Comments Basophils (test code = 0.7 See_Comment [Aut omated message] The Basophils) system which ge nerated this result tra nsmitted reference range : <=1.0. The reference r robbie was not used to int erpret this result as normal/abnormal . [facility] LakeBicybxlPEHYNMACJD5869-77-58 08:51:00 Test Item Value Reference Range Interpretation Comments Segs-Bands # (test code = Segs-Bands #) 3.1 1.5-8.1 [facility] LakeKucpjptFVRJNNSAJJ1397-35-07 08:51:00 Test Item Value Reference Range Interpretation Comments Monocytes (test code = Monocytes) 9.7 2.0-12.0 [facility] LakeWqyhyudEIPXLSKPGV3567-08-28 08:51:00 Test Item Value Reference Range Interpretation Comments Eosinophils (test code = 3.5 See_Comment [A utomated message] The Eosinophils) system which ge nerated this result tra nsmitted reference range : <=4.0. The reference r robbie was not used to int erpret this result as normal/abnormal . [facility] LakeVyauzwpFQPUSJCCDO4756-90-70 08:51:00 Test Item Value Reference Range Interpretation Comments Lymphocytes (test code = Lymphocytes) 32.3 20.0-40.0 [facility] LakeCnaanbzLNVGUVAPZL3058-55-48 08:51:00 Test Item Value Reference Range Interpretation Comments Eosinophils # (test code 0.2 See_Comment [A utomated message] The = Eosinophils #) system whic h generated this result tra nsmitted reference range : <=0.5. The reference r robbie was not used to int erpret this result as normal/abnormal . [facility] LakeZwgnmtiVNZPDWSCAE9583-66-50 08:51:00 Test Item Value Reference Range Interpretation Comments Lymphocytes # (test code = Lymphocytes 1.8 1.0-5.5 #) [facility] LakeWuiwcdbBZYVLVDDAO9596-92-52 08:51:00 Test Item Value Reference Range Interpretation Comments MPV (test code = MPV) 7.6 7.4-10.4 [facility] LakeVppkpfjOZNVIWGFGY6619-95-53 08:51:00 Test Item Value Reference Range Interpretation Comments MCH (test code = MCH) 30.0 pg 27.0-31.0 [facility] LakeHcnbcvuGERJGVQZIZ2129-71-48 08:51:00 Test Item Value Reference Range Interpretation Comments MCV (test code = MCV) 89.1 80.0-98.0 [facility] LakeWaemwviKQHQJIADVE5152-34-70 08:51:00 Test Item Value Reference Range Interpretation Comments MCHC (test code = MCHC) 33.7 32.0-36.0 [facility] LakeZwmeaugIZHXOOCNPG9558-14-18 08:51:00 Test Item Value Reference Range Interpretation Comments RDW (test code = RDW) 13.8 11.5-14.5 [facility] LakeBovlilrLXCEORSOXQ3666-64-56 08:51:00 Test Item Value Reference Range Interpretation Comments Platelet (test code = Platelet) 266 133-450 [facility] LakeBdanzixBLZUICFMXO0394-69-23 08:51:00 Test Item Value Reference Range Interpretation Comments Hgb (test code = Hgb) 12.1 12.0-16.0 [facility] LakeYabuabdWYHAGOKMKK9447-44-42 08:51:00 Test Item Value Reference Range Interpretation Comments Hct (test code = Hct) 35.8 36.0-48.0 [facility] LakeGkhdaroFHBILWDINR6191-57-32 08:51:00 Test Item Value Reference Range Interpretation Comments WBC (test code = WBC) 5.7 3.7-10.4 [facility] LakeNldxotiUFBJBVOZKO7901-48-92 08:51:00 Test Item Value Reference Range Interpretation Comments RBC (test code = RBC) 4.01 4.20-5.40 [facility] LakeFtpolwwCUVKOKFGAY6482-39-76 08:51:00 Test Item Value Reference Range Interpretation Comments Segs (test code = Segs) 53.8 45.0-75.0 [facility] LakeNdpsvbwLJOFYDRADU2175-77-79 08:51:00 Test Item Value Reference Range Interpretation Comments Monocytes # (test code 0.6 See_Comment [Aut omated message] The = Monocytes #) system which generated this result tra nsmitted reference range : <=0.8. The reference r robbie was not used to int erpret this result as normal/abnormal . [facility] LakeLakdqxbEHUKYMDOVU1106-03-57 08:51:00 Test Item Value Reference Range Interpretation Comments Basophils (test code = 0.7 See_Comment [Aut omated message] The Basophils) system which ge nerated this result tra nsmitted reference range : <=1.0. The reference r robbie was not used to int erpret this result as normal/abnormal . [facility] LakeRfiuegsEARVRVOOND5629-71-37 08:51:00 Test Item Value Reference Range Interpretation Comments Segs-Bands # (test code = Segs-Bands #) 3.1 1.5-8.1 [facility] LakeWkugxspKVCSNJNUFB9512-58-52 08:51:00 Test Item Value Reference Range Interpretation Comments Monocytes (test code = Monocytes) 9.7 2.0-12.0 [facility] LakeZgaknuyYJETACBQYY2129-33-72 08:51:00 Test Item Value Reference Range Interpretation Comments Eosinophils (test code = 3.5 See_Comment [A utomated message] The Eosinophils) system which ge nerated this result tra nsmitted reference range : <=4.0. The reference r robbie was not used to int erpret this result as normal/abnormal . [facility] LakeWyekywiNQQBJFKTJZ3261-72-95 08:51:00 Test Item Value Reference Range Interpretation Comments Lymphocytes (test code = Lymphocytes) 32.3 20.0-40.0 [facility] LakePoziebvEBUMYOKYYY7780-58-63 08:51:00 Test Item Value Reference Range Interpretation Comments Eosinophils # (test code 0.2 See_Comment [A utomated message] The = Eosinophils #) system [facility] h generated this result tra nsmitted reference range : <=0.5. The reference r robbie was not used to int erpret this result as normal/abnormal . [facility] LakeNikhttmHTURZKQZHG6950-21-63 08:51:00 Test Item Value Reference Range Interpretation Comments Lymphocytes # (test code = Lymphocytes 1.8 1.0-5.5 #) [facility] LakeKcdxsowWOTNRBYUOU1265-65-85 08:51:00 Test Item Value Reference Range Interpretation Comments MPV (test code = MPV) 7.6 7.4-10.4 [facility] LakeCsttgrgUXEWEIBVNQ9318-38-35 08:51:00 Test Item Value Reference Range Interpretation Comments MCH (test code = MCH) 30.0 pg 27.0-31.0 [facility] LakeYwxjlnoERECCHLQMT1776-12-42 08:51:00 Test Item Value Reference Range Interpretation Comments MCV (test code = MCV) 89.1 80.0-98.0 [facility] LakeZurhlvpLXIWGVBSCH7554-08-68 08:51:00 Test Item Value Reference Range Interpretation Comments MCHC (test code = MCHC) 33.7 32.0-36.0 [facility] LakeUqhvzwlQBJKEOYJNZ5533-85-89 08:51:00 Test Item Value Reference Range Interpretation Comments RDW (test code = RDW) 13.8 11.5-14.5 [facility] LakeZtbvnvqMQGBFSHVMU5683-86-31 08:51:00 Test Item Value Reference Range Interpretation Comments Platelet (test code = Platelet) 266 133-450 [facility] LakeEfzyxvkEZKABSBNPD4036-17-98 08:51:00 Test Item Value Reference Range Interpretation Comments Hgb (test code = Hgb) 12.1 12.0-16.0 [facility] LakeYzxndjrDVGUNNJBOK5689-81-08 08:51:00 Test Item Value Reference Range Interpretation Comments Hct (test code = Hct) 35.8 36.0-48.0 [facility] LakeSbnwrjeXFUPNGMKHW2188-78-21 08:51:00 Test Item Value Reference Range Interpretation Comments WBC (test code = WBC) 5.7 3.7-10.4 [facility] LakeYuhaahlSEEUCXLIUF0752-65-99 08:51:00 Test Item Value Reference Range Interpretation Comments RBC (test code = RBC) 4.01 4.20-5.40 [facility]2016-08-29 06:54:00 Test Item Value Reference Range Interpretation Comments Bili Total (test code = Bili Total) 0.5 0.2-1.3 [facility]2016-08-29 06:54:00 Test Item Value Reference Range Interpretation Comments Alk Phos (test code = Alk Phos) 66 39-136 [facility]2016-08-29 06:54:00 Test Item Value Reference Range Interpretation Comments AST (test code = AST) 23 See_Comment [Auto mated message] The system which ge nerated this result transmit randolph reference range : <=37. The reference range was not used to interpr et this result as juan m l/abnormal. [facility]2016-08-29 06:54:00 Test Item Value Reference Range Interpretation Comments Albumin Lvl (test code = Albumin Lvl) 3.2 3.5-5.0 [facility] [id number] 06:54:00 Test Item Value Reference Range Interpretation Comments ALT (test code = ALT) 29 See_Comment [Auto mated message] The system which ge nerated this result transmit randolph reference range : <=65. The reference range was not used to interpr et this result as juan m l/abnormal. [facility] [id number] 06:54:00 Test Item Value Reference Range Interpretation Comments Total Protein (test code = Total 7.4 6.4-8.4 Protein) [facility] TJAVW0905-32-06 06:54:00 Test Item Value Reference Range Interpretation Comments B/C Ratio (test code = B/C Ratio) 19 6-25 [facility] [id number] 06:54:00 Test Item Value Reference Range Interpretation Comments A/G Ratio (test code = A/G Ratio) 0.8 0.7-1.6 [facility] [id number] 06:54:00 Test Item Value Reference Range Interpretation Comments Globulin (test code = Globulin) 4.2 2.7-4.2 [facility] [id number] 06:54:00 Test Item Value Reference Range Interpretation Comments Bili Total (test code = Bili Total) 0.5 0.2-1.3 [facility] VYCLJ3822-16-22 06:54:00 Test Item Value Reference Range Interpretation Comments Alk Phos (test code = Alk Phos) 66 39-136 [facility] [id number] 06:54:00 Test Item Value Reference Range Interpretation Comments AST (test code = AST) 23 See_Comment [Auto mated message] The system which ge nerated this result transmit randolph reference range : <=37. The reference range was not used to interpr et this result as juan m l/abnormal. [facility] [id number] 06:54:00 Test Item Value Reference Range Interpretation Comments Albumin Lvl (test code = Albumin Lvl) 3.2 3.5-5.0 [facility] [id number] 06:54:00 Test Item Value Reference Range Interpretation Comments ALT (test code = ALT) 29 See_Comment [Auto mated message] The system which ge nerated this result transmit randolph reference range : <=65. The reference range was not used to interpr et this result as juan m l/abnormal. [facility] [id number] 06:54:00 Test Item Value Reference Range Interpretation Comments Total Protein (test code = Total 7.4 6.4-8.4 Protein) [facility]2016-08-29 06:54:00 Test Item Value Reference Range Interpretation Comments B/C Ratio (test code = B/C Ratio) 19 6-25 [facility]NON[id number] 06:54:00 Test Item Value Reference Range Interpretation Comments A/G Ratio (test code = A/G Ratio) 0.8 0.7-1.6 [facility]2016-08-29 06:54:00 Test Item Value Reference Range Interpretation Comments Globulin (test code = Globulin) 4.2 2.7-4.2 [facility]2016-08-29 06:54:00 Test Item Value Reference Range Interpretation Comments Bili Total (test code = Bili Total) 0.5 0.2-1.3 [facility]NONOAT[facility] MOUNTAINAGVMG0701-63-13 06:54:00 Test Item Value Reference Range Interpretation Comments Alk Phos (test code = Alk Phos) 66 39-136 [facility] [id number] 06:54:00 Test Item Value Reference Range Interpretation Comments AST (test code = AST) 23 See_Comment [Auto mated message] The system which ge nerated this result transmit randolph reference range : <=37. The reference range was not used to interpr et this result as juan m l/abnormal. [facility] [id number] 06:54:00 Test Item Value Reference Range Interpretation Comments Albumin Lvl (test code = Albumin Lvl) 3.2 3.5-5.0 [facility] [id number] 06:54:00 Test Item Value Reference Range Interpretation Comments ALT (test code = ALT) 29 See_Comment [Auto mated message] The system which ge nerated this result transmit randolph reference range : <=65. The reference range was not used to interpr et this result as juan m l/abnormal. [facility] [id number] 06:54:00 Test Item Value Reference Range Interpretation Comments Total Protein (test code = Total 7.4 6.4-8.4 Protein) [facility]2016-08-29 06:54:00 Test Item Value Reference Range Interpretation Comments B/C Ratio (test code = B/C Ratio) 19 6-25 [place] 111826-08-29 06:54:00 Test Item Value Reference Range Interpretation Comments A/G Ratio (test code = A/G Ratio) 0.8 0.7-1.6 [facility]2016-08-29 06:54:00 Test Item Value Reference Range Interpretation Comments Globulin (test code = Globulin) 4.2 2.7-4.2 [facility]2016-08-29 06:54:00 Test Item Value Reference Range Interpretation Comments Bili Total (test code = Bili Total) 0.5 0.2-1.3 [facility]2016-08-29 06:54:00 Test Item Value Reference Range Interpretation Comments Alk Phos (test code = Alk Phos) 66 39-136 [facility]2016-08-29 06:54:00 Test Item Value Reference Range Interpretation Comments AST (test code = AST) 23 See_Comment [Auto mated message] The system which ge nerated this result transmit randolph reference range : <=37. The reference range was not used to interpr et this result as juan m l/abnormal. [facility]2016-08-29 06:54:00 Test Item Value Reference Range Interpretation Comments Albumin Lvl (test code = Albumin Lvl) 3.2 3.5-5.0 [facility]2016-08-29 06:54:00 Test Item Value Reference Range Interpretation Comments ALT (test code = ALT) 29 See_Comment [Auto mated message] The system which ge nerated this result transmit randolph reference range : <=65. The reference range was not used to interpr et this result as juan m l/abnormal. [facility]2016-08-29 06:54:00 Test Item Value Reference Range Interpretation Comments Total Protein (test code = Total 7.4 6.4-8.4 Protein) [facility]2016-08-29 06:54:00 Test Item Value Reference Range Interpretation Comments B/C Ratio (test code = B/C Ratio) 02-16 [facility] [id number] 06:54:00 Test Item Value Reference Range Interpretation Comments A/G Ratio (test code = A/G Ratio) 0.8 0.7-1.6 [facility]2016-08-29 06:54:00 Test Item Value Reference Range Interpretation Comments Globulin (test code = Globulin) 4.2 2.7-4.2 [facility]2016-08-29 06:54:00 Test Item Value Reference Range Interpretation Comments Bili Total (test code = Bili Total) 0.5 0.2-1.3 [facility]NONOATRI[facility] MOUNTAINKBBGA1766-76-16 06:54:00 Test Item Value Reference Range Interpretation Comments Alk Phos (test code = Alk Phos) 66 39-136 [facility] [id number] 06:54:00 Test Item Value Reference Range Interpretation Comments AST (test code = AST) 23 See_Comment [Auto mated message] The system which ge nerated this result transmit randolph reference range : <=37. The reference range was not used to interpr et this result as juan m l/abnormal. [facility] [id number] 06:54:00 Test Item Value Reference Range Interpretation Comments Albumin Lvl (test code = Albumin Lvl) 3.2 3.5-5.0 [facility] [id number] 06:54:00 Test Item Value Reference Range Interpretation Comments ALT (test code = ALT) 29 See_Comment [Auto mated message] The system which ge nerated this result transmit randolph reference range : <=65. The reference range was not used to interpr et this result as juan m l/abnormal. [facility] [id number] 06:54:00 Test Item Value Reference Range Interpretation Comments Total Protein (test code = Total 7.4 6.4-8.4 Protein) [facility] [id number] 06:54:00 Test Item Value Reference Range Interpretation Comments B/C Ratio (test code = B/C Ratio) 02-16 [facility] [id number] 06:54:00 Test Item Value Reference Range Interpretation Comments A/G Ratio (test code = A/G Ratio) 0.8 0.7-1.6 [facility]2016-08-29 06:54:00 Test Item Value Reference Range Interpretation Comments Globulin (test code = Globulin) 4.2 2.7-4.2 [facility]2016-08-29 06:54:00 Test Item Value Reference Range Interpretation Comments Bili Total (test code = Bili Total) 0.5 0.2-1.3 [facility]2016-08-29 06:54:00 Test Item Value Reference Range Interpretation Comments Alk Phos (test code = Alk Phos) 66 39-136 [facility]2016-08-29 06:54:00 Test Item Value Reference Range Interpretation Comments AST (test code = AST) 23 See_Comment [Auto mated message] The system which ge nerated this result transmit randolph reference range : <=37. The reference range was not used to interpr et this result as juan m l/abnormal. [facility]2016-08-29 06:54:00 Test Item Value Reference Range Interpretation Comments Albumin Lvl (test code = Albumin Lvl) 3.2 3.5-5.0 [facility]2016-08-29 06:54:00 Test Item Value Reference Range Interpretation Comments ALT (test code = ALT) 29 See_Comment [Auto mated message] The system which ge nerated this result transmit randolph reference range : <=65. The reference range was not used to interpr et this result as juan m l/abnormal. [facility] [id number] 06:54:00 Test Item Value Reference Range Interpretation Comments Total Protein (test code = Total 7.4 6.4-8.4 Protein) [facility]2016-08-29 06:54:00 Test Item Value Reference Range Interpretation Comments B/C Ratio (test code = B/C Ratio) 19 6-25 [facility]2016-08-29 06:54:00 Test Item Value Reference Range Interpretation Comments A/G Ratio (test code = A/G Ratio) 0.8 0.7-1.6 [facility]2016-08-29 06:54:00 Test Item Value Reference Range Interpretation Comments Globulin (test code = Globulin) 4.2 2.7-4.2 [facility] [id number] 06:54:00 Test Item Value Reference Range Interpretation Comments Bili Total (test code = Bili Total) 0.5 0.2-1.3 [facility]2016-08-29 06:54:00 Test Item Value Reference Range Interpretation Comments Alk Phos (test code = Alk Phos) 66 39-136 [facility]2016-08-29 06:54:00 Test Item Value Reference Range Interpretation Comments AST (test code = AST) 23 See_Comment [Auto mated message] The system which ge nerated this result transmit randolph reference range : <=37. The reference range was not used to interpr et this result as juan m l/abnormal. [facility]2016-08-29 06:54:00 Test Item Value Reference Range Interpretation Comments Albumin Lvl (test code = Albumin Lvl) 3.2 3.5-5.0 [facility]2016-08-29 06:54:00 Test Item Value Reference Range Interpretation Comments ALT (test code = ALT) 29 See_Comment [Auto mated message] The system which ge nerated this result transmit randolph reference range : <=65. The reference range was not used to interpr et this result as juan m l/abnormal. [facility] [id number] 06:54:00 Test Item Value Reference Range Interpretation Comments Total Protein (test code = Total 7.4 6.4-8.4 Protein) [facility]2016-08-29 06:54:00 Test Item Value Reference Range Interpretation Comments B/C Ratio (test code = B/C Ratio) 19 6-25 [facility]2016-08-29 06:54:00 Test Item Value Reference Range Interpretation Comments A/G Ratio (test code = A/G Ratio) 0.8 0.7-1.6 [facility]2016-08-29 06:54:00 Test Item Value Reference Range Interpretation Comments Globulin (test code = Globulin) 4.2 2.7-4.2 [facility]2016-08-29 06:54:00 Test Item Value Reference Range Interpretation Comments Bili Total (test code = Bili Total) 0.5 0.2-1.3 [facility]2016-08-29 06:54:00 Test Item Value Reference Range Interpretation Comments Alk Phos (test code = Alk Phos) 66 39-136 [facility] [id number] 06:54:00 Test Item Value Reference Range Interpretation Comments AST (test code = AST) 23 See_Comment [Auto mated message] The system which ge nerated this result transmit randolph reference range : <=37. The reference range was not used to interpr et this result as juan m l/abnormal. [facility] [id number] 06:54:00 Test Item Value Reference Range Interpretation Comments Albumin Lvl (test code = Albumin Lvl) 3.2 3.5-5.0 [facility] [id number] 06:54:00 Test Item Value Reference Range Interpretation Comments ALT (test code = ALT) 29 See_Comment [Auto mated message] The system which ge nerated this result transmit randolph reference range : <=65. The reference range was not used to interpr et this result as juan m l/abnormal. [facility] [id number] 06:54:00 Test Item Value Reference Range Interpretation Comments Total Protein (test code = Total 7.4 6.4-8.4 Protein) [facility] [id number] 06:54:00 Test Item Value Reference Range Interpretation Comments B/C Ratio (test code = B/C Ratio) 19 6-25 [facility] [id number] 06:54:00 Test Item Value Reference Range Interpretation Comments A/G Ratio (test code = A/G Ratio) 0.8 0.7-1.6 [facility] [id number] 06:54:00 Test Item Value Reference Range Interpretation Comments Globulin (test code = Globulin) 4.2 2.7-4.2 [facility] [id number] 06:54:00 Test Item Value Reference Range Interpretation Comments Bili Total (test code = Bili Total) 0.5 0.2-1.3 [facility] [id number] 06:54:00 Test Item Value Reference Range Interpretation Comments Alk Phos (test code = Alk Phos) 66 39-136 [facility] [id number] 06:54:00 Test Item Value Reference Range Interpretation Comments AST (test code = AST) 23 See_Comment [Auto mated message] The system which ge nerated this result transmit randolph reference range : <=37. The reference range was not used to interpr et this result as juan m l/abnormal. [facility] [id number] 06:54:00 Test Item Value Reference Range Interpretation Comments Albumin Lvl (test code = Albumin Lvl) 3.2 3.5-5.0 [facility]2016-08-29 06:54:00 Test Item Value Reference Range Interpretation Comments ALT (test code = ALT) 29 See_Comment [Auto mated message] The system which ge nerated this result transmit randolph reference range : <=65. The reference range was not used to interpr et this result as juan m l/abnormal. [facility] [id number] 06:54:00 Test Item Value Reference Range Interpretation Comments Total Protein (test code = Total 7.4 6.4-8.4 Protein) [facility]2016-08-29 06:54:00 Test Item Value Reference Range Interpretation Comments B/C Ratio (test code = B/C Ratio) 19 6-25 [facility]2016-08-29 06:54:00 Test Item Value Reference Range Interpretation Comments A/G Ratio (test code = A/G Ratio) 0.8 0.7-1.6 [facility]2016-08-29 06:54:00 Test Item Value Reference Range Interpretation Comments Globulin (test code = Globulin) 4.2 2.7-4.2 [facility]2016-08-29 06:54:00 Test Item Value Reference Range Interpretation Comments Bili Total (test code = Bili Total) 0.5 0.2-1.3 [id number] 06:54:00 Test Item Value Reference Range Interpretation Comments Alk Phos (test code = Alk Phos) 66 39-136 [facility] [id number] 06:54:00 Test Item Value Reference Range Interpretation Comments AST (test code = AST) 23 See_Comment [Auto mated message] The system which ge nerated this result transmit randolph reference range : <=37. The reference range was not used to interpr et this result as juan m l/abnormal. [facility] [id number] 06:54:00 Test Item Value Reference Range Interpretation Comments Albumin Lvl (test code = Albumin Lvl) 3.2 3.5-5.0 [facility]2016-08-29 06:54:00 Test Item Value Reference Range Interpretation Comments ALT (test code = ALT) 29 See_Comment [Auto mated message] The system which ge nerated this result transmit randolph reference range : <=65. The reference range was not used to interpr et this result as juan m l/abnormal. [facility]2016-08-29 06:54:00 Test Item Value Reference Range Interpretation Comments Total Protein (test code = Total 7.4 6.4-8.4 Protein) [facility]2016-08-29 06:54:00 Test Item Value Reference Range Interpretation Comments B/C Ratio (test code = B/C Ratio) 19 6-25 [facility]2016-08-29 06:54:00 Test Item Value Reference Range Interpretation Comments A/G Ratio (test code = A/G Ratio) 0.8 0.7-1.6 [facility]2016-08-29 06:54:00 Test Item Value Reference Range Interpretation Comments Globulin (test code = Globulin) 4.2 2.7-4.2 [facility]2016-08-29 06:54:00 Test Item Value Reference Range Interpretation Comments Bili Total (test code = Bili Total) 0.5 0.2-1.3 [facility]2016-08-29 06:54:00 Test Item Value Reference Range Interpretation Comments Alk Phos (test code = Alk Phos) 66 39-136 [facility]2016-08-29 06:54:00 Test Item Value Reference Range Interpretation Comments AST (test code = AST) 23 See_Comment [Auto mated message] The system which ge nerated this result transmit randolph reference range : <=37. The reference range was not used to interpr et this result as juan m l/abnormal. [facility] [id number] 06:54:00 Test Item Value Reference Range Interpretation Comments Albumin Lvl (test code = Albumin Lvl) 3.2 3.5-5.0 [facility] [id number] 06:54:00 Test Item Value Reference Range Interpretation Comments ALT (test code = ALT) 29 See_Comment [Auto mated message] The system which ge nerated this result transmit randolph reference range : <=65. The reference range was not used to interpr et this result as juan m l/abnormal. [facility] [id number] 06:54:00 Test Item Value Reference Range Interpretation Comments Total Protein (test code = Total 7.4 6.4-8.4 Protein) [facility]2016-08-29 06:54:00 Test Item Value Reference Range Interpretation Comments B/C Ratio (test code = B/C Ratio) 19 6-25 [facility]NON[facility]AT[id number] 06:54:00 Test Item Value Reference Range Interpretation Comments A/G Ratio (test code = A/G Ratio) 0.8 0.7-1.6 [facility]2016-08-29 06:54:00 Test Item Value Reference Range Interpretation Comments Globulin (test code = Globulin) 4.2 2.7-4.2 [facility]2016-08-29 06:54:00 Test Item Value Reference Range Interpretation Comments Bili Total (test code = Bili Total) 0.5 0.2-1.3 [facility] [id number] 06:54:00 Test Item Value Reference Range Interpretation Comments Alk Phos (test code = Alk Phos) 66 39-136 [facility] [id number] 06:54:00 Test Item Value Reference Range Interpretation Comments AST (test code = AST) 23 See_Comment [Auto mated message] The system which ge nerated this result transmit randolph reference range : <=37. The reference range was not used to interpr et this result as juan m l/abnormal. [facility] [id number] 06:54:00 Test Item Value Reference Range Interpretation Comments Albumin Lvl (test code = Albumin Lvl) 3.2 3.5-5.0 [facility] [id number] 06:54:00 Test Item Value Reference Range Interpretation Comments ALT (test code = ALT) 29 See_Comment [Auto mated message] The system which ge nerated this result transmit randolph reference range : <=65. The reference range was not used to interpr et this result as juan m l/abnormal. [facility] [id number] 06:54:00 Test Item Value Reference Range Interpretation Comments Total Protein (test code = Total 7.4 6.4-8.4 Protein) [facility] [id number] 06:54:00 Test Item Value Reference Range Interpretation Comments B/C Ratio (test code = B/C Ratio) 19 6-25 [facility] [id number] 06:54:00 Test Item Value Reference Range Interpretation Comments A/G Ratio (test code = A/G Ratio) 0.8 0.7-1.6 [facility] [id number] 06:54:00 Test Item Value Reference Range Interpretation Comments Globulin (test code = Globulin) 4.2 2.7-4.2 [facility] [id number] 03:48:00 Test Item Value Reference Range Interpretation Comments Troponin-I (test code no gt See_Comment [Auto mated message] The = Troponin-I) system which g enerated this result transmit randolph reference range : <=0.40. The reference r robbie was not used to interpr et this result as juan m l/abnormal. [facility] [id number] 03:48:00 Test Item Value Reference Range Interpretation Comments PTT (test code = PTT) 30.5 s 22.9-35.8 [facility] [id number] 03:48:00 Test Item Value Reference Range Interpretation Comments Etoh (%) (test code = Etoh (%)) no gt [facility] [id number] 03:48:00 Test Item Value Reference Range Interpretation Comments Ethanol Lvl (test code = Ethanol Lvl) no gt [facility] [id number] 03:48:00 Test Item Value Reference Range Interpretation Comments UA Renal Epi (test code = UA Renal Epi) [facility] [id number] 03:48:00 Test Item Value Reference Range Interpretation Comments UA Urobilinogen (test code = UA <=1.0 mg/dL 0.1-1.0 Urobilinogen) [facility] [id number] 03:48:00 Test Item Value Reference Range Interpretation Comments UA Color (test code = Yellow *NA*(04/21/16 UA Color) 10:48 PM) [facility] [id number] 03:48:00 Test Item Value Reference Range Interpretation Comments UA pH (test code = UA pH) 8.0 5.0-8.0 [facility] AND [id number] 03:48:00 Test Item Value Reference Range Interpretation Comments UA Spec Grav (test code = UA Spec Grav) 1.011 [facility] AND [id number] 03:48:00 Test Item Value Reference Range Interpretation Comments UA Turbidity (test code Slight *ABN*(04/21/16 = UA Turbidity) 10:48 PM) [facility] AND [id number] 03:48:00 Test Item Value Reference Range Interpretation Comments UA Glucose (test code = UA Negative mg/dL Glucose) [facility] AND [id number] 03:48:00 Test Item Value Reference Range Interpretation Comments UA Blood (test code = Negative (04/21/16 10:48 UA Blood) PM) [facility] AND [id number] 03:48:00 Test Item Value Reference Range Interpretation Comments UA Protein (test code = UA Protein) 30 mg/dL [facility] AND [id number] 03:48:00 Test Item Value Reference Range Interpretation Comments UA Bili (test code = Negative *NA*(04/21/16 UA Bili) 10:48 PM) [facility] AND [id number] 03:48:00 Test Item Value Reference Range Interpretation Comments UA Ketones (test code = UA Negative mg/dL Ketones) [facility] AND [id number] 03:48:00 Test Item Value Reference Range Interpretation Comments UA Nitrite (test code Negative (04/21/16 10:48 = UA Nitrite) PM) [facility] AND [id number] 03:48:00 Test Item Value Reference Range Interpretation Comments UA Leuk Est (test Negative (04/21/16 10:48 code = UA Leuk Est) PM) [facility] AND [id number] 03:48:00 Test Item Value Reference Range Interpretation Comments UA Amorph Chari (test code = Occasional /HPF UA Amorph Chari) [facility] AND [id number] 03:48:00 Test Item Value Reference Range Interpretation Comments UA WBC (test code = 1 See_Comment [Automa randolph message] The UA WBC) system which ge nerated this result transmit randolph reference range : <=5. The reference range was not used to interpr et this result as juan m l/abnormal. [facility] [id number] 03:48:00 Test Item Value Reference Range Interpretation Comments UA Mucus (test code = UA Mucus) Few /LPF [facility] [id number] 03:48:00 Test Item Value Reference Range Interpretation Comments UA Sq Epi (test code = UA Sq Occasional /LPF Epi) [facility] [id number] 03:48:00 Test Item Value Reference Range Interpretation Comments Troponin-I (test code no gt See_Comment [Auto mated message] The = Troponin-I) system which g enerated this result transmit randolph reference range : <=0.40. The reference r robbie was not used to interpr et this result as juan m l/abnormal. [facility] [id number] 03:48:00 Test Item Value Reference Range Interpretation Comments PTT (test code = PTT) 30.5 s 22.9-35.8 [facility] [id number] 03:48:00 Test Item Value Reference Range Interpretation Comments Etoh (%) (test code = Etoh (%)) no gt [facility] [id number] 03:48:00 Test Item Value Reference Range Interpretation Comments Ethanol Lvl (test code = Ethanol Lvl) no gt [facility] [id number] 03:48:00 Test Item Value Reference Range Interpretation Comments UA Renal Epi (test code = UA Renal Epi) [facility] [id number] 03:48:00 Test Item Value Reference Range Interpretation Comments UA Urobilinogen (test code = UA <=1.0 mg/dL 0.1-1.0 Urobilinogen) [facility] [id number] 03:48:00 Test Item Value Reference Range Interpretation Comments UA Color (test code = Yellow *NA*(04/21/16 UA Color) 10:48 PM) [facility] [id number] 03:48:00 Test Item Value Reference Range Interpretation Comments UA pH (test code = UA pH) 8.0 5.0-8.0 [facility] AND [id number] 03:48:00 Test Item Value Reference Range Interpretation Comments UA Spec Grav (test code = UA Spec Grav) 1.011 [facility] AND [id number] 03:48:00 Test Item Value Reference Range Interpretation Comments UA Turbidity (test code Slight *ABN*(04/21/16 = UA Turbidity) 10:48 PM) [facility] AND [id number] 03:48:00 Test Item Value Reference Range Interpretation Comments UA Glucose (test code = UA Negative mg/dL Glucose) [facility] AND [id number] 03:48:00 Test Item Value Reference Range Interpretation Comments UA Blood (test code = Negative (04/21/16 10:48 UA Blood) PM) [facility] AND [id number] 03:48:00 Test Item Value Reference Range Interpretation Comments UA Protein (test code = UA Protein) 30 mg/dL [facility] AND [id number] 03:48:00 Test Item Value Reference Range Interpretation Comments UA Bili (test code = Negative *NA*(04/21/16 UA Bili) 10:48 PM) [facility] AND [id number] 03:48:00 Test Item Value Reference Range Interpretation Comments UA Ketones (test code = UA Negative mg/dL Ketones) [facility] AND [id number] 03:48:00 Test Item Value Reference Range Interpretation Comments UA Nitrite (test code Negative (04/21/16 10:48 = UA Nitrite) PM) [facility] AND [id number] 03:48:00 Test Item Value Reference Range Interpretation Comments UA Leuk Est (test Negative (04/21/16 10:48 code = UA Leuk Est) PM) [facility] AND [id number] 03:48:00 Test Item Value Reference Range Interpretation Comments UA Amorph Chari (test code = Occasional /HPF UA Amorph Chari) [facility] AND [id number] 03:48:00 Test Item Value Reference Range Interpretation Comments UA WBC (test code = 1 See_Comment [Automa randolph message] The UA WBC) system which ge nerated this result transmit randolph reference range : <=5. The reference range was not used to interpr et this result as juan m l/abnormal. [facility] [id number] 03:48:00 Test Item Value Reference Range Interpretation Comments UA Mucus (test code = UA Mucus) Few /LPF [facility] [id number] 03:48:00 Test Item Value Reference Range Interpretation Comments UA Sq Epi (test code = UA Sq Occasional /LPF Epi) [facility] [id number] 03:48:00 Test Item Value Reference Range Interpretation Comments Troponin-I (test code no gt See_Comment [Auto mated message] The = Troponin-I) system which g enerated this result transmit randolph reference range : <=0.40. The reference r robbie was not used to interpr et this result as juan m l/abnormal. [facility] [id number] 03:48:00 Test Item Value Reference Range Interpretation Comments PTT (test code = PTT) 30.5 s 22.9-35.8 [facility] [id number] 03:48:00 Test Item Value Reference Range Interpretation Comments Etoh (%) (test code = Etoh (%)) no gt [facility] [id number] 03:48:00 Test Item Value Reference Range Interpretation Comments Ethanol Lvl (test code = Ethanol Lvl) no gt [facility] [id number] 03:48:00 Test Item Value Reference Range Interpretation Comments UA Renal Epi (test code = UA Renal Epi) [facility] [id number] 03:48:00 Test Item Value Reference Range Interpretation Comments UA Urobilinogen (test code = UA <=1.0 mg/dL 0.1-1.0 Urobilinogen) [facility] [id number] 03:48:00 Test Item Value Reference Range Interpretation Comments UA Color (test code = Yellow *NA*(04/21/16 UA Color) 10:48 PM) [facility] [id number] 03:48:00 Test Item Value Reference Range Interpretation Comments UA pH (test code = UA pH) 8.0 5.0-8.0 [facility] [id number] 03:48:00 Test Item Value Reference Range Interpretation Comments UA Spec Grav (test code = UA Spec Grav) 1.011 [facility] AND [id number] 03:48:00 Test Item Value Reference Range Interpretation Comments UA Turbidity (test code Slight *ABN*(04/21/16 = UA Turbidity) 10:48 PM) [facility] AND [id number] 03:48:00 Test Item Value Reference Range Interpretation Comments UA Glucose (test code = UA Negative mg/dL Glucose) [facility] AND [id number] 03:48:00 Test Item Value Reference Range Interpretation Comments UA Blood (test code = Negative (04/21/16 10:48 UA Blood) PM) [facility] AND [id number] 03:48:00 Test Item Value Reference Range Interpretation Comments UA Protein (test code = UA Protein) 30 mg/dL [facility] AND [id number] 03:48:00 Test Item Value Reference Range Interpretation Comments UA Bili (test code = Negative *NA*(04/21/16 UA Bili) 10:48 PM) [facility] AND [id number] 03:48:00 Test Item Value Reference Range Interpretation Comments UA Ketones (test code = UA Negative mg/dL Ketones) [facility] AND [id number] 03:48:00 Test Item Value Reference Range Interpretation Comments UA Nitrite (test code Negative (04/21/16 10:48 = UA Nitrite) PM) [facility] AND [id number] 03:48:00 Test Item Value Reference Range Interpretation Comments UA Leuk Est (test Negative (04/21/16 10:48 code = UA Leuk Est) PM) [facility] AND [id number] 03:48:00 Test Item Value Reference Range Interpretation Comments UA Amorph Chari (test code = Occasional /HPF UA Amorph Chari) [facility] AND [id number] 03:48:00 Test Item Value Reference Range Interpretation Comments UA WBC (test code = 1 See_Comment [Automa randolph message] The UA WBC) system which ge nerated this result transmit randolph reference range : <=5. The reference range was not used to interpr et this result as juan m l/abnormal. [facility] AND [id number] 03:48:00 Test Item Value Reference Range Interpretation Comments UA Mucus (test code = UA Mucus) Few /LPF [facility] [id number] 03:48:00 Test Item Value Reference Range Interpretation Comments UA Sq Epi (test code = UA Sq Occasional /LPF Epi) [facility] [id number] 03:48:00 Test Item Value Reference Range Interpretation Comments Troponin-I (test code no gt See_Comment [Auto mated message] The = Troponin-I) system which g enerated this result transmit randolph reference range : <=0.40. The reference r robbie was not used to interpr et this result as juan m l/abnormal. [facility] [id number] 03:48:00 Test Item Value Reference Range Interpretation Comments PTT (test code = PTT) 30.5 s 22.9-35.8 [facility] [id number] 03:48:00 Test Item Value Reference Range Interpretation Comments Etoh (%) (test code = Etoh (%)) no gt [facility] [id number] 03:48:00 Test Item Value Reference Range Interpretation Comments Ethanol Lvl (test code = Ethanol Lvl) no gt [facility] [id number] 03:48:00 Test Item Value Reference Range Interpretation Comments UA Renal Epi (test code = UA Renal Epi) [facility] [id number] 03:48:00 Test Item Value Reference Range Interpretation Comments UA Urobilinogen (test code = UA <=1.0 mg/dL 0.1-1.0 Urobilinogen) [facility] [id number] 03:48:00 Test Item Value Reference Range Interpretation Comments UA Color (test code = Yellow *NA*(04/21/16 UA Color) 10:48 PM) [facility] [id number] 03:48:00 Test Item Value Reference Range Interpretation Comments UA pH (test code = UA pH) 8.0 5.0-8.0 [facility] [id number] 03:48:00 Test Item Value Reference Range Interpretation Comments UA Spec Grav (test code = UA Spec Grav) 1.011 [facility] AND [id number] 03:48:00 Test Item Value Reference Range Interpretation Comments UA Turbidity (test code Slight *ABN*(04/21/16 = UA Turbidity) 10:48 PM) [facility] AND [id number] 03:48:00 Test Item Value Reference Range Interpretation Comments UA Glucose (test code = UA Negative mg/dL Glucose) [facility] AND [id number] 03:48:00 Test Item Value Reference Range Interpretation Comments UA Blood (test code = Negative (04/21/16 10:48 UA Blood) PM) [facility] AND [id number] 03:48:00 Test Item Value Reference Range Interpretation Comments UA Protein (test code = UA Protein) 30 mg/dL [facility] AND [id number] 03:48:00 Test Item Value Reference Range Interpretation Comments UA Bili (test code = Negative *NA*(04/21/16 UA Bili) 10:48 PM) [facility] AND [id number] 03:48:00 Test Item Value Reference Range Interpretation Comments UA Ketones (test code = UA Negative mg/dL Ketones) [facility] AND [id number] 03:48:00 Test Item Value Reference Range Interpretation Comments UA Nitrite (test code Negative (04/21/16 10:48 = UA Nitrite) PM) [facility] AND [id number] 03:48:00 Test Item Value Reference Range Interpretation Comments UA Leuk Est (test Negative (04/21/16 10:48 code = UA Leuk Est) PM) [facility] AND [id number] 03:48:00 Test Item Value Reference Range Interpretation Comments UA Amorph Chari (test code = Occasional /HPF UA Amorph Chari) [facility] AND [id number] 03:48:00 Test Item Value Reference Range Interpretation Comments UA WBC (test code = 1 See_Comment [Automa randolph message] The UA WBC) system which ge nerated this result transmit randolph reference range : <=5. The reference range was not used to interpr et this result as juan m l/abnormal. [facility] AND [id number] 03:48:00 Test Item Value Reference Range Interpretation Comments UA Mucus (test code = UA Mucus) Few /LPF [facility] AND [id number] 03:48:00 Test Item Value Reference Range Interpretation Comments UA Sq Epi (test code = UA Sq Occasional /LPF Epi) [facility] [id number] 03:48:00 Test Item Value Reference Range Interpretation Comments Troponin-I (test code no gt See_Comment [Auto mated message] The = Troponin-I) system which g enerated this result transmit randolph reference range : <=0.40. The reference r robbie was not used to interpr et this result as juan m l/abnormal. [facility] [id number] 03:48:00 Test Item Value Reference Range Interpretation Comments PTT (test code = PTT) 30.5 s 22.9-35.8 [facility] [id number] 03:48:00 Test Item Value Reference Range Interpretation Comments Etoh (%) (test code = Etoh (%)) no gt [facility] [id number] 03:48:00 Test Item Value Reference Range Interpretation Comments Ethanol Lvl (test code = Ethanol Lvl) no gt [facility] [id number] 03:48:00 Test Item Value Reference Range Interpretation Comments UA Renal Epi (test code = UA Renal Epi) [facility] [id number] 03:48:00 Test Item Value Reference Range Interpretation Comments UA Urobilinogen (test code = UA <=1.0 mg/dL 0.1-1.0 Urobilinogen) [facility] [id number] 03:48:00 Test Item Value Reference Range Interpretation Comments UA Color (test code = Yellow *NA*(04/21/16 UA Color) 10:48 PM) [facility] [id number] 03:48:00 Test Item Value Reference Range Interpretation Comments UA pH (test code = UA pH) 8.0 5.0-8.0 [facility] [id number] 03:48:00 Test Item Value Reference Range Interpretation Comments UA Spec Grav (test code = UA Spec Grav) 1.011 [facility] [id number] 03:48:00 Test Item Value Reference Range Interpretation Comments UA Turbidity (test code Slight *ABN*(04/21/16 = UA Turbidity) 10:48 PM) [facility] [id number] 03:48:00 Test Item Value Reference Range Interpretation Comments UA Glucose (test code = UA Negative mg/dL Glucose) [facility] AND [id number] 03:48:00 Test Item Value Reference Range Interpretation Comments UA Blood (test code = Negative (04/21/16 10:48 UA Blood) PM) [facility] AND [id number] 03:48:00 Test Item Value Reference Range Interpretation Comments UA Protein (test code = UA Protein) 30 mg/dL [facility] AND [id number] 03:48:00 Test Item Value Reference Range Interpretation Comments UA Bili (test code = Negative *NA*(04/21/16 UA Bili) 10:48 PM) [facility] AND [id number] 03:48:00 Test Item Value Reference Range Interpretation Comments UA Ketones (test code = UA Negative mg/dL Ketones) [facility] AND [id number] 03:48:00 Test Item Value Reference Range Interpretation Comments UA Nitrite (test code Negative (04/21/16 10:48 = UA Nitrite) PM) [facility] AND [id number] 03:48:00 Test Item Value Reference Range Interpretation Comments UA Leuk Est (test Negative (04/21/16 10:48 code = UA Leuk Est) PM) [facility] AND [id number] 03:48:00 Test Item Value Reference Range Interpretation Comments UA Amorph Chari (test code = Occasional /HPF UA Amorph Chari) [facility] AND [id number] 03:48:00 Test Item Value Reference Range Interpretation Comments UA WBC (test code = 1 See_Comment [Automa randolph message] The UA WBC) system which ge nerated this result transmit randolph reference range : <=5. The reference range was not used to interpr et this result as juan m l/abnormal. [facility] AND [id number] 03:48:00 Test Item Value Reference Range Interpretation Comments UA Mucus (test code = UA Mucus) Few /LPF [facility] AND [id number] 03:48:00 Test Item Value Reference Range Interpretation Comments UA Sq Epi (test code = UA Sq Occasional /LPF Epi) [facility] [id number] 03:48:00 Test Item Value Reference Range Interpretation Comments Troponin-I (test code no gt See_Comment [Auto mated message] The = Troponin-I) system which g enerated this result transmit randolph reference range : <=0.40. The reference r robbie was not used to interpr et this result as juan m l/abnormal. [facility] [id number] 03:48:00 Test Item Value Reference Range Interpretation Comments PTT (test code = PTT) 30.5 s 22.9-35.8 [facility] [id number] 03:48:00 Test Item Value Reference Range Interpretation Comments Etoh (%) (test code = Etoh (%)) no gt [facility] [id number] 03:48:00 Test Item Value Reference Range Interpretation Comments Ethanol Lvl (test code = Ethanol Lvl) no gt [facility] AND [id number] 03:48:00 Test Item Value Reference Range Interpretation Comments UA Renal Epi (test code = UA Renal Epi) RARE [facility] AND [id number] 03:48:00 Test Item Value Reference Range Interpretation Comments UA Urobilinogen (test code = UA <=1.0 mg/dL 0.1-1.0 Urobilinogen) [facility] AND [id number] 03:48:00 Test Item Value Reference Range Interpretation Comments UA Color (test code = Yellow *NA*(04/21/16 UA Color) 10:48 PM) [facility] AND [id number] 03:48:00 Test Item Value Reference Range Interpretation Comments UA pH (test code = UA pH) 8.0 5.0-8.0 [facility] AND [id number] 03:48:00 Test Item Value Reference Range Interpretation Comments UA Spec Grav (test code = UA Spec Grav) 1.011 [facility] AND [id number] 03:48:00 Test Item Value Reference Range Interpretation Comments UA Turbidity (test code Slight *ABN*(04/21/16 = UA Turbidity) 10:48 PM) [facility] AND [id number] 03:48:00 Test Item Value Reference Range Interpretation Comments UA Glucose (test code = UA Negative mg/dL Glucose) [facility] [id number] 03:48:00 Test Item Value Reference Range Interpretation Comments UA Blood (test code = Negative (04/21/16 10:48 UA Blood) PM) [facility] [id number] 03:48:00 Test Item Value Reference Range Interpretation Comments UA Protein (test code = UA Protein) 30 mg/dL [facility] AND [id number] 03:48:00 Test Item Value Reference Range Interpretation Comments UA Bili (test code = Negative *NA*(04/21/16 UA Bili) 10:48 PM) [facility] AND [id number] 03:48:00 Test Item Value Reference Range Interpretation Comments UA Ketones (test code = UA Negative mg/dL Ketones) [facility] AND [id number] 03:48:00 Test Item Value Reference Range Interpretation Comments UA Nitrite (test code Negative (04/21/16 10:48 = UA Nitrite) PM) [facility] AND [id number] 03:48:00 Test Item Value Reference Range Interpretation Comments UA Leuk Est (test Negative (04/21/16 10:48 code = UA Leuk Est) PM) [facility] AND [id number] 03:48:00 Test Item Value Reference Range Interpretation Comments UA Amorph Chari (test code = Occasional /HPF UA Amorph Chari) [facility] AND [id number] 03:48:00 Test Item Value Reference Range Interpretation Comments UA WBC (test code = 1 See_Comment [Automa randolph message] The UA WBC) system which ge nerated this result transmit randolph reference range : <=5. The reference range was not used to interpr et this result as juan m l/abnormal. [facility] AND [id number] 03:48:00 Test Item Value Reference Range Interpretation Comments UA Mucus (test code = UA Mucus) Few /LPF [facility] [id number] 03:48:00 Test Item Value Reference Range Interpretation Comments UA Sq Epi (test code = UA Sq Occasional /LPF Epi) [facility] [id number] 03:48:00 Test Item Value Reference Range Interpretation Comments Troponin-I (test code no gt See_Comment [Auto mated message] The = Troponin-I) system which g enerated this result transmit randolph reference range : <=0.40. The reference r robbie was not used to interpr et this result as juan m l/abnormal. [facility] [id number] 03:48:00 Test Item Value Reference Range Interpretation Comments PTT (test code = PTT) 30.5 s 22.9-35.8 [facility] [id number] 03:48:00 Test Item Value Reference Range Interpretation Comments Etoh (%) (test code = Etoh (%)) no gt [facility] [id number] 03:48:00 Test Item Value Reference Range Interpretation Comments Ethanol Lvl (test code = Ethanol Lvl) no gt [facility] AND [id number] 03:48:00 Test Item Value Reference Range Interpretation Comments UA Renal Epi (test code = UA Renal Epi) RARE [facility] AND [id number] 03:48:00 Test Item Value Reference Range Interpretation Comments UA Urobilinogen (test code = UA <=1.0 mg/dL 0.1-1.0 Urobilinogen) [facility] AND [id number] 03:48:00 Test Item Value Reference Range Interpretation Comments UA Color (test code = Yellow *NA*(04/21/16 UA Color) 10:48 PM) [facility] AND [id number] 03:48:00 Test Item Value Reference Range Interpretation Comments UA pH (test code = UA pH) 8.0 5.0-8.0 [facility] AND [id number] 03:48:00 Test Item Value Reference Range Interpretation Comments UA Spec Grav (test code = UA Spec Grav) 1.011 [facility] AND [id number] 03:48:00 Test Item Value Reference Range Interpretation Comments UA Turbidity (test code Slight *ABN*(04/21/16 = UA Turbidity) 10:48 PM) [facility] AND [id number] 03:48:00 Test Item Value Reference Range Interpretation Comments UA Glucose (test code = UA Negative mg/dL Glucose) [facility] AND [id number] 03:48:00 Test Item Value Reference Range Interpretation Comments UA Blood (test code = Negative (04/21/16 10:48 UA Blood) PM) [facility] AND [id number] 03:48:00 Test Item Value Reference Range Interpretation Comments UA Protein (test code = UA Protein) 30 mg/dL [facility] AND [id number] 03:48:00 Test Item Value Reference Range Interpretation Comments UA Bili (test code = Negative *NA*(04/21/16 UA Bili) 10:48 PM) [facility] AND [id number] 03:48:00 Test Item Value Reference Range Interpretation Comments UA Ketones (test code = UA Negative mg/dL Ketones) [facility] AND [id number] 03:48:00 Test Item Value Reference Range Interpretation Comments UA Nitrite (test code Negative (04/21/16 10:48 = UA Nitrite) PM) [facility] AND [id number] 03:48:00 Test Item Value Reference Range Interpretation Comments UA Leuk Est (test Negative (04/21/16 10:48 code = UA Leuk Est) PM) [facility] [id number] 03:48:00 Test Item Value Reference Range Interpretation Comments UA Amorph Chari (test code = Occasional /HPF UA Amorph Chari) [facility] AND [id number] 03:48:00 Test Item Value Reference Range Interpretation Comments UA WBC (test code = 1 See_Comment [Automa randolph message] The UA WBC) system which ge nerated this result transmit randolph reference range : <=5. The reference range was not used to interpr et this result as juan m l/abnormal. [facility] [id number] 03:48:00 Test Item Value Reference Range Interpretation Comments UA Mucus (test code = UA Mucus) Few /LPF [facility] AND [id number] 03:48:00 Test Item Value Reference Range Interpretation Comments UA Sq Epi (test code = UA Sq Occasional /LPF Epi) [facility] HospitalCARD[facility] [id number] 03:48:00 Test Item Value Reference Range Interpretation Comments Troponin-I (test code no gt See_Comment [Auto mated message] The = Troponin-I) system which g enerated this result transmit randolph reference range : <=0.40. The reference r robbie was not used to interpr et this result as juan m l/abnormal. [facility] [id number] 03:48:00 Test Item Value Reference Range Interpretation Comments PTT (test code = PTT) 30.5 s 22.9-35.8 [facility] [id number] 03:48:00 Test Item Value Reference Range Interpretation Comments Etoh (%) (test code = Etoh (%)) no gt [facility] [id number] 03:48:00 Test Item Value Reference Range Interpretation Comments Ethanol Lvl (test code = Ethanol Lvl) no gt [facility] AND [id number] 03:48:00 Test Item Value Reference Range Interpretation Comments UA Renal Epi (test code = UA Renal Epi) RARE [facility] AND [id number] 03:48:00 Test Item Value Reference Range Interpretation Comments UA Urobilinogen (test code = UA <=1.0 mg/dL 0.1-1.0 Urobilinogen) [facility] AND [id number] 03:48:00 Test Item Value Reference Range Interpretation Comments UA Color (test code = Yellow *NA*(04/21/16 UA Color) 10:48 PM) [facility] AND [id number] 03:48:00 Test Item Value Reference Range Interpretation Comments UA pH (test code = UA pH) 8.0 5.0-8.0 [facility] AND [id number] 03:48:00 Test Item Value Reference Range Interpretation Comments UA Spec Grav (test code = UA Spec Grav) 1.011 [facility] AND [id number] 03:48:00 Test Item Value Reference Range Interpretation Comments UA Turbidity (test code Slight *ABN*(04/21/16 = UA Turbidity) 10:48 PM) [facility] AND [id number] 03:48:00 Test Item Value Reference Range Interpretation Comments UA Glucose (test code = UA Negative mg/dL Glucose) [facility] AND [id number] 03:48:00 Test Item Value Reference Range Interpretation Comments UA Blood (test code = Negative (04/21/16 10:48 UA Blood) PM) [facility] AND [id number] 03:48:00 Test Item Value Reference Range Interpretation Comments UA Protein (test code = UA Protein) 30 mg/dL [facility] AND [id number] 03:48:00 Test Item Value Reference Range Interpretation Comments UA Bili (test code = Negative *NA*(04/21/16 UA Bili) 10:48 PM) [facility] AND [id number] 03:48:00 Test Item Value Reference Range Interpretation Comments UA Ketones (test code = UA Negative mg/dL Ketones) [facility] AND [id number] 03:48:00 Test Item Value Reference Range Interpretation Comments UA Nitrite (test code Negative (04/21/16 10:48 = UA Nitrite) PM) [facility] AND [id number] 03:48:00 Test Item Value Reference Range Interpretation Comments UA Leuk Est (test Negative (04/21/16 10:48 code = UA Leuk Est) PM) [facility] AND [id number] 03:48:00 Test Item Value Reference Range Interpretation Comments UA Amorph Chari (test code = Occasional /HPF UA Amorph Chari) [facility] AND [id number] 03:48:00 Test Item Value Reference Range Interpretation Comments UA WBC (test code = 1 See_Comment [Automa randolph message] The UA WBC) system which ge nerated this result transmit randolph reference range : <=5. The reference range was not used to interpr et this result as juan m l/abnormal. [facility] AND [id number] 03:48:00 Test Item Value Reference Range Interpretation Comments UA Mucus (test code = UA Mucus) Few /LPF [facility] AND [id number] 03:48:00 Test Item Value Reference Range Interpretation Comments UA Sq Epi (test code = UA Sq Occasional /LPF Epi) [facility] [id number] 03:48:00 Test Item Value Reference Range Interpretation Comments Troponin-I (test code no gt See_Comment [Auto mated message] The = Troponin-I) system which g enerated this result transmit randolph reference range : <=0.40. The reference r robbie was not used to interpr et this result as juan m l/abnormal. [facility] [id number] 03:48:00 Test Item Value Reference Range Interpretation Comments PTT (test code = PTT) 30.5 s 22.9-35.8 [facility] XhdyoikMRVRCGFMOU0901-01-27 03:48:00 Test Item Value Reference Range Interpretation Comments Etoh (%) (test code = Etoh (%)) no gt [facility] [id number] 03:48:00 Test Item Value Reference Range Interpretation Comments Ethanol Lvl (test code = Ethanol Lvl) no gt [facility] [id number] 03:48:00 Test Item Value Reference Range Interpretation Comments UA Renal Epi (test code = UA Renal Epi) [facility] [id number] 03:48:00 Test Item Value Reference Range Interpretation Comments UA Urobilinogen (test code = UA <=1.0 mg/dL 0.1-1.0 Urobilinogen) [facility] [id number] 03:48:00 Test Item Value Reference Range Interpretation Comments UA Color (test code = Yellow *NA*(04/21/16 UA Color) 10:48 PM) [facility] [id number] 03:48:00 Test Item Value Reference Range Interpretation Comments UA pH (test code = UA pH) 8.0 5.0-8.0 [facility] [id number] 03:48:00 Test Item Value Reference Range Interpretation Comments UA Spec Grav (test code = UA Spec Grav) 1.011 [facility] [id number] 03:48:00 Test Item Value Reference Range Interpretation Comments UA Turbidity (test code Slight *ABN*(04/21/16 = UA Turbidity) 10:48 PM) [facility] [id number] 03:48:00 Test Item Value Reference Range Interpretation Comments UA Glucose (test code = UA Negative mg/dL Glucose) [facility] AND [id number] 03:48:00 Test Item Value Reference Range Interpretation Comments UA Blood (test code = Negative (04/21/16 10:48 UA Blood) PM) [facility] [id number] 03:48:00 Test Item Value Reference Range Interpretation Comments UA Protein (test code = UA Protein) 30 mg/dL [facility] [id number] 03:48:00 Test Item Value Reference Range Interpretation Comments UA Bili (test code = Negative *NA*(04/21/16 UA Bili) 10:48 PM) [facility] AND [id number] 03:48:00 Test Item Value Reference Range Interpretation Comments UA Ketones (test code = UA Negative mg/dL Ketones) [facility] AND [id number] 03:48:00 Test Item Value Reference Range Interpretation Comments UA Nitrite (test code Negative (04/21/16 10:48 = UA Nitrite) PM) [facility] AND [id number] 03:48:00 Test Item Value Reference Range Interpretation Comments UA Leuk Est (test Negative (04/21/16 10:48 code = UA Leuk Est) PM) [facility] AND [id number] 03:48:00 Test Item Value Reference Range Interpretation Comments UA Amorph Chari (test code = Occasional /HPF UA Amorph Chari) [facility] AND [id number] 03:48:00 Test Item Value Reference Range Interpretation Comments UA WBC (test code = 1 See_Comment [Automa randolph message] The UA WBC) system which ge nerated this result transmit randolph reference range : <=5. The reference range was not used to interpr et this result as juan m l/abnormal. [facility] AND [id number] 03:48:00 Test Item Value Reference Range Interpretation Comments UA Mucus (test code = UA Mucus) Few /LPF [facility] AND [id number] 03:48:00 Test Item Value Reference Range Interpretation Comments UA Sq Epi (test code = UA Sq Occasional /LPF Epi) [facility] [id number] 03:48:00 Test Item Value Reference Range Interpretation Comments Troponin-I (test code no gt See_Comment [Auto mated message] The = Troponin-I) system which g enerated this result transmit randolph reference range : <=0.40. The reference r robbie was not used to interpr et this result as juan m l/abnormal. [facility] [id number] 03:48:00 Test Item Value Reference Range Interpretation Comments PTT (test code = PTT) 30.5 s 22.9-35.8 [facility] [id number] 03:48:00 Test Item Value Reference Range Interpretation Comments Etoh (%) (test code = Etoh (%)) no gt [facility] [id number] 03:48:00 Test Item Value Reference Range Interpretation Comments Ethanol Lvl (test code = Ethanol Lvl) no gt [facility] [id number] 03:48:00 Test Item Value Reference Range Interpretation Comments UA Renal Epi (test code = UA Renal Epi) RARE [facility] AND [id number] 03:48:00 Test Item Value Reference Range Interpretation Comments UA Urobilinogen (test code = UA <=1.0 mg/dL 0.1-1.0 Urobilinogen) [facility] AND [id number] 03:48:00 Test Item Value Reference Range Interpretation Comments UA Color (test code = Yellow *NA*(04/21/16 UA Color) 10:48 PM) [facility] AND [id number] 03:48:00 Test Item Value Reference Range Interpretation Comments UA pH (test code = UA pH) 8.0 5.0-8.0 [facility] AND [id number] 03:48:00 Test Item Value Reference Range Interpretation Comments UA Spec Grav (test code = UA Spec Grav) 1.011 [facility] AND [id number] 03:48:00 Test Item Value Reference Range Interpretation Comments UA Turbidity (test code Slight *ABN*(04/21/16 = UA Turbidity) 10:48 PM) [facility] AND [id number] 03:48:00 Test Item Value Reference Range Interpretation Comments UA Glucose (test code = UA Negative mg/dL Glucose) [facility] AND [id number] 03:48:00 Test Item Value Reference Range Interpretation Comments UA Blood (test code = Negative (04/21/16 10:48 UA Blood) PM) [facility] AND [id number] 03:48:00 Test Item Value Reference Range Interpretation Comments UA Protein (test code = UA Protein) 30 mg/dL [facility] AND [id number] 03:48:00 Test Item Value Reference Range Interpretation Comments UA Bili (test code = Negative *NA*(04/21/16 UA Bili) 10:48 PM) [facility] AND [id number] 03:48:00 Test Item Value Reference Range Interpretation Comments UA Ketones (test code = UA Negative mg/dL Ketones) [facility] AND [id number] 03:48:00 Test Item Value Reference Range Interpretation Comments UA Nitrite (test code Negative (04/21/16 10:48 = UA Nitrite) PM) [facility] AND [id number] 03:48:00 Test Item Value Reference Range Interpretation Comments UA Leuk Est (test Negative (04/21/16 10:48 code = UA Leuk Est) PM) [facility] AND [id number] 03:48:00 Test Item Value Reference Range Interpretation Comments UA Amorph Chari (test code = Occasional /HPF UA Amorph Chari) [facility] AND [id number] 03:48:00 Test Item Value Reference Range Interpretation Comments UA WBC (test code = 1 See_Comment [Automa randolph message] The UA WBC) system which ge nerated this result transmit randolph reference range : <=5. The reference range was not used to interpr et this result as juan m l/abnormal. [facility] AND [id number] 03:48:00 Test Item Value Reference Range Interpretation Comments UA Mucus (test code = UA Mucus) Few /LPF [facility] AND [id number] 03:48:00 Test Item Value Reference Range Interpretation Comments UA Sq Epi (test code = UA Sq Occasional /LPF Epi) [facility] [id number] 03:48:00 Test Item Value Reference Range Interpretation Comments Troponin-I (test code no gt See_Comment [Auto mated message] The = Troponin-I) system which g enerated this result transmit randolph reference range : <=0.40. The reference r robbie was not used to interpr et this result as juan m l/abnormal. [facility] [id number] 03:48:00 Test Item Value Reference Range Interpretation Comments PTT (test code = PTT) 30.5 s 22.9-35.8 [facility] [id number] 03:48:00 Test Item Value Reference Range Interpretation Comments Etoh (%) (test code = Etoh (%)) no gt [id number] 03:48:00 Test Item Value Reference Range Interpretation Comments Ethanol Lvl (test code = Ethanol Lvl) no gt [facility] [id number] 03:48:00 Test Item Value Reference Range Interpretation Comments UA Renal Epi (test code = UA Renal Epi) RARE [facility] [id number] 03:48:00 Test Item Value Reference Range Interpretation Comments UA Urobilinogen (test code = UA <=1.0 mg/dL 0.1-1.0 Urobilinogen) [facility] AND [id number] 03:48:00 Test Item Value Reference Range Interpretation Comments UA Color (test code = Yellow *NA*(04/21/16 UA Color) 10:48 PM) [facility] AND [id number] 03:48:00 Test Item Value Reference Range Interpretation Comments UA pH (test code = UA pH) 8.0 5.0-8.0 [facility] AND [id number] 03:48:00 Test Item Value Reference Range Interpretation Comments UA Spec Grav (test code = UA Spec Grav) 1.011 [facility] AND [id number] 03:48:00 Test Item Value Reference Range Interpretation Comments UA Turbidity (test code Slight *ABN*(04/21/16 = UA Turbidity) 10:48 PM) [facility] AND [id number] 03:48:00 Test Item Value Reference Range Interpretation Comments UA Glucose (test code = UA Negative mg/dL Glucose) [facility] AND [id number] 03:48:00 Test Item Value Reference Range Interpretation Comments UA Blood (test code = Negative (04/21/16 10:48 UA Blood) PM) [facility] AND [id number] 03:48:00 Test Item Value Reference Range Interpretation Comments UA Protein (test code = UA Protein) 30 mg/dL [facility] AND [id number] 03:48:00 Test Item Value Reference Range Interpretation Comments UA Bili (test code = Negative *NA*(04/21/16 UA Bili) 10:48 PM) [facility] AND [id number] 03:48:00 Test Item Value Reference Range Interpretation Comments UA Ketones (test code = UA Negative mg/dL Ketones) [facility] AND [id number] 03:48:00 Test Item Value Reference Range Interpretation Comments UA Nitrite (test code Negative (04/21/16 10:48 = UA Nitrite) PM) [facility] AND [id number] 03:48:00 Test Item Value Reference Range Interpretation Comments UA Leuk Est (test Negative (04/21/16 10:48 code = UA Leuk Est) PM) [facility] AND [id number] 03:48:00 Test Item Value Reference Range Interpretation Comments UA Amorph Chari (test code = Occasional /HPF UA Amorph Chari) [facility] AND [id number] 03:48:00 Test Item Value Reference Range Interpretation Comments UA WBC (test code = 1 See_Comment [Automa randolph message] The UA WBC) system which ge nerated this result transmit randolph reference range : <=5. The reference range was not used to interpr et this result as juan m l/abnormal. [facility] AND [id number] 03:48:00 Test Item Value Reference Range Interpretation Comments UA Mucus (test code = UA Mucus) Few /LPF [facility] AND [id number] 03:48:00 Test Item Value Reference Range Interpretation Comments UA Sq Epi (test code = UA Sq Occasional /LPF Epi) [facility] [id number] 03:48:00 Test Item Value Reference Range Interpretation Comments Troponin-I (test code no gt See_Comment [Auto mated message] The = Troponin-I) system which g enerated this result transmit randolph reference range : <=0.40. The reference r robbie was not used to interpr et this result as juan m l/abnormal. [facility] [id number] 03:48:00 Test Item Value Reference Range Interpretation Comments PTT (test code = PTT) 30.5 s 22.9-35.8 [facility] [id number] 03:48:00 Test Item Value Reference Range Interpretation Comments Etoh (%) (test code = Etoh (%)) no gt [facility] [id number] 03:48:00 Test Item Value Reference Range Interpretation Comments Ethanol Lvl (test code = Ethanol Lvl) no gt [facility] AND [id number] 03:48:00 Test Item Value Reference Range Interpretation Comments UA Renal Epi (test code = UA Renal Epi) RARE [facility] AND [id number] 03:48:00 Test Item Value Reference Range Interpretation Comments UA Urobilinogen (test code = UA <=1.0 mg/dL 0.1-1.0 Urobilinogen) [facility] AND [id number] 03:48:00 Test Item Value Reference Range Interpretation Comments UA Color (test code = Yellow *NA*(04/21/16 UA Color) 10:48 PM) [facility] AND [id number] 03:48:00 Test Item Value Reference Range Interpretation Comments UA pH (test code = UA pH) 8.0 5.0-8.0 [facility] AND [id number] 03:48:00 Test Item Value Reference Range Interpretation Comments UA Spec Grav (test code = UA Spec Grav) 1.011 [facility] AND [id number] 03:48:00 Test Item Value Reference Range Interpretation Comments UA Turbidity (test code Slight *ABN*(04/21/16 = UA Turbidity) 10:48 PM) [facility] AND [id number] 03:48:00 Test Item Value Reference Range Interpretation Comments UA Glucose (test code = UA Negative mg/dL Glucose) [facility] AND [id number] 03:48:00 Test Item Value Reference Range Interpretation Comments UA Blood (test code = Negative (04/21/16 10:48 UA Blood) PM) [facility] AND [id number] 03:48:00 Test Item Value Reference Range Interpretation Comments UA Protein (test code = UA Protein) 30 mg/dL [facility] AND [id number] 03:48:00 Test Item Value Reference Range Interpretation Comments UA Bili (test code = Negative *NA*(04/21/16 UA Bili) 10:48 PM) [facility] AND [id number] 03:48:00 Test Item Value Reference Range Interpretation Comments UA Ketones (test code = UA Negative mg/dL Ketones) [facility] AND [id number] 03:48:00 Test Item Value Reference Range Interpretation Comments UA Nitrite (test code Negative (04/21/16 10:48 = UA Nitrite) PM) [facility] AND [id number] 03:48:00 Test Item Value Reference Range Interpretation Comments UA Leuk Est (test Negative (04/21/16 10:48 code = UA Leuk Est) PM) [facility] AND [id number] 03:48:00 Test Item Value Reference Range Interpretation Comments UA Amorph Chari (test code = Occasional /HPF UA Amorph Chari) [facility] AND [id number] 03:48:00 Test Item Value Reference Range Interpretation Comments UA WBC (test code = 1 See_Comment [Automa randolph message] The UA WBC) system which ge nerated this result transmit randolph reference range : <=5. The reference range was not used to interpr et this result as juan m l/abnormal. [facility] AND [id number] 03:48:00 Test Item Value Reference Range Interpretation Comments UA Mucus (test code = UA Mucus) Few /LPF [facility] AND [id number] 03:48:00 Test Item Value Reference Range Interpretation Comments UA Sq Epi (test code = UA Sq Occasional /LPF Epi) [facility] Notes Date/Time Note Provider Source 2021-09-27 [id number] [facility] 17:38:00-00:00 [address] [place] [address] PATIENT NAME: JASON GOYAL ADMIT DATE: ACCOUNT NO: [id number] ROOM NO: P.0580 AGE: 86 REPORT TYPE: 360 - QUERY RESPONSE DOCUMENT SEX: F ADMITTING PHYSICIAN:Iván Cowan MD ATTENDING PHYSICIAN:Iván Cowan MD Provider Query QUERY TEXT: Condition Blood 360MD Query related questions should be directed to: Yrn HUTCHINSON RN, BSN [email or web address] Based on your clinical judgment, can you provide the known or suspected condition(s) that represent(s) the clinical indicators listed below? The patient's Clinical Indicators include: ON ADMISSION HGB - 09/14/2021 10:25 - 13.4? LASTEST (POST OP) HGB - 09/21/2021 07:34 - 9.5? Elective Surg LOS at 09/21/2021 00:40 "PROCEDURES: 1. Laparoscopic-assisted robotic low anterior re section with primary colorectal anastomosis. 2. Laparoscopic lysis of pelvic adhesions, unrel ated to bowel resection with significant distortion of anatomy. 3. Laparoscopic small bowel resection with prima ry stapled anastomosis, closure." Options provided: -- Blood loss anemia, Please specify the acuity (i.e., acute, chronic, acute on chronic). -- Anemia of chronic disease, Please specify the chronic disease. -- Iron deficiency anemia -- Chemotherapy induced anemia, Please specify d rug. -- Drug induced anemia, Please specify drug. -- Idiopathic aplastic anemia -- Neoplastic anemia -- Other - I will add my own diagnosis -- Dismiss - Not applicable / Not valid -- Dismiss - Clinically unable to determine / Un known -- Assign to another provider QUERY RESPONSE: The patient anemia of chronic disease. Query created by: Saige Hutchinson on 09/21/2021 9 :18 PM at 1738 PATIENT NAME: JASON GOYAL ACCOUNT #: [id number] 2021-09-21 [facility] 15:38:00-00:00 [facility] ([facility]) Med Order Sheet REPORT #: [id number] REPORT STATUS: Signed DATE: 09/21/21 TIME: 1538 PATIENT: JASON GOYAL UNIT #: [id number] ROOM #: P.0580 BED: 1 : 35 AGE: 86 SEX: F ATTEND: Iván Cowan MD ADM AUTHOR: Silviano Henson APRN ATTENTION *EDITS and/or ADDENDA must be made in Patient Ke eper for this note. * * Edits and ammendments created in [employer] are not visible * * in Patient Keeper or the legal medical record (HPF). * Discharge Medication Reconciliation DISCHARGE MEDICATION LIST Aspirin EC Tab (Ecotrin Tab) Dose: 81 MG PO DAILY Ferrous Sulfate Tab (Feosol Tab) Dose: 325 MG PO BID Folic Acid Tab (Folvite Tab) Dose: 1 MG PO DAILY Levothyroxine Tab (Synthroid Tab) Dose: 75 MCG PO DAILY Magnesium Oxide Tab (NF) (Mag Ox Tab (NF)) Dose: Oral BID Myrbetriq tablet,extended release (mirabegron) Dose: 50 MG PO DAILY NIFEdipine Tab.XL (Procardia Tab.XL) Dose: 60 MG PO Bedtime Ramipril Cap (NF) (Altace Cap (NF)) Dose: 5 MG PO DAILY Sertraline Tab (Zoloft Tab) Dose: 25 MG PO DAILY STOPPED HOME MEDICATIONS Dc'd: Cephalexin Cap (Keflex Cap) 500 MG PO Q6H STOPPED HOSPITAL MEDICATIONS Dc'd: Acetaminophen Tab (Tylenol Tab) 650MG PO Q 6HRDc'd: Albuterol/Ipratrop Neb Soln (Duoneb Neb Soln) 3ML Neb RTQ4H PRN whe ezing / shortness of breathDc'd: Celecoxib Cap (CeleBREX Cap) 200MG P O Q12H PRN pain scale 4-6Dc'd: Enoxaparin 40 mg/0.4 ml Inj (Lovenox 40 mg/0.4 ml Inj) 40MG SubQ DAILYDc'd: hydrALAZINE Inj (Apresoline Inj) 5MG IV Q2H PRN sbp greater than 160Dc'd: Ondansetron Inj (Zofran Inj) 4MG IV Q6H PRN nausea and vomitingDc'd: Ondansetron ODT Tab (Zofran ODT Tab) 4MG PO Q6H PRN nausea and vomitingDc'd: Oxybutynin Tab (Ditropan Tab) 5MG PO BIDDc'd: ox yCODONE IR Tab (Roxicodone Tab) 2.5MG PO Q6H PRN pain scale 7-10 (use 2nd)D c'd: Pantoprazole DR Tab (Protonix Tab) 40MG PO DAILYDc'd: Patient's Own Medication MIRABEGRON 50 MG PO DAILY Electronically Signed by Silviano Henson on 0 09/21/21 at 1538 ATTENTION *EDITS and/or ADDENDA must be made in Patient Ke eper for this note. * * Edits and ammendments created in [employer] Unm[employer] TechnologySELECT MEDICAL [facility] are not visible * * in Patient Keeper or the legal medical record (HPF). * RPT #: [id number] END OF REPORT 2021-09-21 [facility] 11:04:00-00:00 [facility] ([facility]) Internal Med. D/C Summary REPORT #: [id number] REPORT STATUS: Signed DATE: 09/21/21 TIME: 1104 PATIENT: JASON GOYAL UNIT #: [id number] ROOM #: P.0580 BED: 1 : 35 AGE: 86 SEX: F ATTEND: Iván Cowan MD ADM AUTHOR: Silviano Henson APRN ATTENTION *EDITS and/or ADDENDA must be made in Patient Ke eper for this note. * * Edits and ammendments created in [employer] are not visible * * in Patient Keeper or the legal medical record ([facility]). * -- CO-SIGNATURE -- COMMENTS: Patient seen and examined doing well POD 3 Plan of care discussed with patient, all questions answered to her satisfaction Agree with the findings as detailed by Silviano smith APRN Discussed with Dr. White, ok for discharge Plans upon discharge are enumerated below Total time spent coordinating care > 35 mins Signed in PatientKeeper by SAM MC MD 09/21/21 at 21:36 -- PROBLEMS/PROCEDURES -- ADMISSION DATE: 09/18/21 ADMITTING DIAGNOSES: - Abdominal adhesions - Bradycardia - Colon cancer - Coronary artery disease - Debility - Depression - Diverticular stricture - GERD (gastroesophageal reflux disease) - Hypertension - Hypothyroidism - Nausea - Overactive bladder DISCHARGE DATE: 09/21/21 DISCHARGE DIAGNOSES: - Abdominal adhesions - Bradycardia - Colon cancer - Coronary artery disease - Debility - Depression - Diverticular stricture - GERD (gastroesophageal reflux disease) - Hypertension - Hypothyroidism - Nausea - Overactive bladder -- HOSPITAL COURSE -- HOSPITAL COURSE: Patient is an 86 year old woman with coronary ar manny disease s/p NM/PCI 2002, depression, hypertension, hy pothyroidism and colon cancer who underwent robotic assisted left colectomy and lysis of adhesions b y Dr. Aquino. Patient is doing well POD#3. Pain is well controlled, and she is ambulating with a walker. Patient is passing flatus, and tolerating a soft diet. Discussed with CRS. Dutch for discharge. -- DISCHARGE MEDICATIONS -- ALLERGIES: codeine (Unknown - Allergy) Penicillins (Unknown - Allergy) Sulfa (Sulfonamide Antibiotics) (Unknown - Aller gy) DISCHARGE MEDICATIONS: Please refer to Discharge Medication list for a complete list of discharge medications Aspirin EC Tab (Ecotrin Tab) 81 MG PO DAILY Ferrous Sulfate Tab (Feosol Tab) 325 MG PO BID Folic Acid Tab (Folvite Tab) 1 MG PO DAILY Levothyroxine Tab (Synthroid Tab) 75 MCG PO JEAN Y Magnesium Oxide Tab (NF) (Mag Ox Tab (NF)) Oral BID Myrbetriq tablet,extended release (mirabegron) 5 0 MG PO DAILY NIFEdipine Tab.XL (Procardia Tab.XL) 60 MG PO Be dtime Ramipril Cap (NF) (Altace Cap (NF)) 5 MG PO JEAN Y Sertraline Tab (Zoloft Tab) 25 MG PO DAILY -- DISCHARGE INSTRUCTIONS -- ADMISSION ORDERS: Discharge Follow Up Details: PK DISCHARGE ORDERS: DC Parameters and Instructions Details: Details: DC Order - No eCQM ADDTIONAL DISCHARGE INSTRUCTIONS: Emergency Instructions: The patient was instruct ed to present to the nearest Emergency Department or call 911 should their sy mptoms return or worsen.; -- OBJECTIVE -- VITALS (09/20 11:04 - 09/21 11:04): Temperature C: 37.3 (36.7 - 37.3) Temperature source: Oral Pulse Rate 93 (90 - 100) Respiratory rate: 18 (18 - 20) BP: 178/91 (150/74 - 178/91) I/Os (09/20 07:00 - 09/21 07:00): Net 3,530.00 Intake 4,130.00 Output 600 -EXAM- GENERAL: alert and cooperative, appears comforta ble. In no distress. Elderly CHEST: very slight sq emphysema noted. LUNGS: Clear bilaterally with normal respiratory effort. HEART: Regular rate and rhythm, normal S1, S2, n o murmurs, no rubs, no gallops, no clicks. ABDOMEN: Soft, minimally tender, incisions clean and dry. normoactive bowel sounds. MUSCULOSKELETAL: No deformity, no scoliosis note d of thoracic or lumbar spine, joint ROM grossly normal, normal gait wi th walker. EXTREMITIES: No clubbing, no cyanosis, no edema. NEUROLOGICAL: No focal deficits, cranial nerves II-XII grossly intact, normal sensation, normal coordination, normal m uscle strength, normal tone. PULSES: Pulses normal in all extremities. SKIN: Intact without significant lesions, or mariangel hes. PSYCHIATRIC: Alert and oriented to time, person, place. Normal mood and affect, intact judgment and insight. -- DATA -- LABS CBC W/AUTO DIFF (09/21/21 07:34) WHITE BLOOD CELL 8.4 RED BLOOD CELL 3.17 L HEMOGLOBIN 9.5D L D L HEMATOCRIT 29.6L L MEAN CELL VOLUME 93.4 MEAN CELL HGB 30.0 MEAN CELL HGB CONCENTRATION 32.1 L RED CELL DISTRIBUTION WIDTH 12.9 PLATELET COUNT 220 MEAN PLATELET VOLUME 9.6 NEUTROPHIL % 75.9 H LYMPHOCYTE % 14.1 L MONOCYTE % 5.7 EOSINOPHIL % 3.7 BASOPHIL % 0.2 NEUTROPHIL # 6.35 LYMPHOCYTE # 1.18 MONOCYTE # 0.48 EOSINOPHIL # 0.31 BASOPHIL # 0.02 MAG (09/21/21 07:21) MAGNESIUM 1.3 L BASIC METABOLIC PANEL (09/21/21 07:21) SODIUM 140 POTASSIUM 3.4L L CHLORIDE 107 CARBON DIOXIDE 25 GLUCOSE 95 BLOOD UREA NITROGEN 13 GLOMERULAR FILTRATION RATE >=60 max estimate CREATININE 0.50L L CALCIUM 8.0 L Signed in PatientKeeper by Silviano Henson APRN 09/21/21 at 15:35 Cosigned by SAM MC MD on 09/21/21 at 2 1:36 Electronically Signed by Silviano Henson on 0 09/21/21 at 2136 at 2136 ATTENTION *EDITS and/or ADDENDA must be made in Patient Ke eper for this note. * * Edits and ammendments created in [employer] are not visible * * in Patient Keeper or the legal medical record (HPF). * RPT #: [id number] END OF REPORT 2021-09-18 [id number] [facility] 18:31:00-00:00 [address] [place] [address] PATIENT NAME: JASON GOYAL ADMIT DATE: ACCOUNT NO: [id number] ROOM NO: P.0580 AGE: 86 REPORT TYPE: OPERATIVE REPORT SEX: F ADMITTING PHYSICIAN:Iván Cowan MD ATTENDING PHYSICIAN:Iván Cowan MD OPERATION DATE: 09/18/2021 PREOPERATIVE DIAGNOSIS: Diverticular stricture. POSTOPERATIVE DIAGNOSES: 1. Severe diverticulitis with stricture and christopher re pelvic adhesions with displaced anatomy. 2. Small bowel duplication creating complication s. PROCEDURES: 1. Laparoscopic-assisted jasvir otic low anterior resection with primary colorectal anastomosis. 2. Laparoscopic lysis of pelvic adhesions, unrel ated to bowel resection with significant distortion of anatomy. 3. Laparoscopic small bowel resection with prima ry stapled anastomosis, closure. COLORECTAL SURGEON: Iván Cowan MD SPORTS MARKETER: Naga Mcgee M.D. ANESTHESIA: General endotracheal anesthesia. SPECIMEN: 1. Low anterior resection/diverticulitis. 2. Small bowel duplication. INDICATIONS AND FINDINGS: The patient presents w ith stricture of the sigmoid colon, progressive in nature, warranting surgical intervention. It was thought to be in the background of diverticular disease. She had had previous pelvic surgery. Upon exploration, the anatomy involved severe diverticular disease, but also significant displacement of the upper rectum with severe adhesions in the pelvis from previous gynecologic and bladder surgery. There were sutures into the rectum itself, pulling and distorting t he anatomy outside of the typical planes of dissection for sigmoid diverti culitis. We were able to perform a resection for sigm oid diverticulitis, but in addition and separate to that, we had to release the rectal adhesions to detach the sutures, which displaced the anatomy and repair and oversew thi s region. The adhesions involved the pelvic gynecologic structur es including the vagina and the pelvic peritoneum. The patient underwent a resection, transrectal e xtraction of specimen and primary colorectal anastomosis. PATIENT NAME: JASON GOYAL ACCOUNT #: [id number] In addition, however, and al so unrelated to this, upon exploration, there was a large what appeared to be duplication of the sma ll bowel near the terminal ileum. This had distended to the point of near p erforation. Therefore, resection was warranted. Mesentery was taken gracia n, resection was performed using a stapling technique. The patient tolerate d the procedure well without complications. Surgical autopsy assistant was present and required for the procedure. PROCEDURE IN DETAIL: The patient was taken to e operating room and after induction of anesthesia, lulu flor in modified lithotomy position. The patient was prepped and draped in sterile fashion. L aparoscopic access was gained. We went on the patient's left side f or access because of previous open cholecystectomy. We put in a second port. We had to lyse of adhes ions, abdominal in order to place our additional ports, which included a 12- mm port on the right side. Next, the robot was docked. We attended to the p pina. We took down the white line of Toldt lateral to medial going up to, but did not have to take down the splenic flexure. At this juncture, we had a p roximal transection in the left colon and as we got distally, there was significant distortion of e rectum beyond the sigmoid diverticular disease and the stricture itself. T his was unrelated and ; however, needed to be attended to. e rectum was folded deep into the pelvis with sutures from previous gynecologi c surgery, creating adhesions and distorting the anatomy. We had to spent sign ificant time approximately an hour attending to the lysis of pelvic adhesions, unrelated to that surgery itself, it distorted the anatomy, which was caug ht up into the vagina and the pelvic peritoneum. We had released permanent sut ures, which were placed along the rectum. We had to oversew this area as well. Once all of this was accomplished, we were able to straighten out the rectum. We divided distally. We extracted the specimen transrectally. Next, nohemy perry put in an anvil to the 31 stapler, secured it to the left colon. Next, as we were running the bowel, we noticed the abnormality of t he distal terminal ileum. We then ran the bowel and mobilized the ileocecal area. It was approximate ly 30 cm to 40 cm proximal to the ileocecal valve. There was a very distended antimesenteric small bowel abnormality, cystic in nature. It was not in the correct location for a Meckel's diverticulum, also has its own mesentery, therefore it was felt to be a small bowel duplication. Bec ause of the abnormal clinical features, it was felt the resection was required. The mesentery was ta bill down with vessel seal device clearing up to the re section and using a stapling technique the bowel was resected and a stapled anastomosis was performed . Evaluation revealed that it was intact and patent. Next, we turned to our colorectal anastomosis. W e were able to staple across the distal rectal cuff using two fires of the blue load. Next, using a circular stapling technique, a primary end-to-end colorectal anastomosis was fashioned. It was oversewn at the cross ing staple lines with 3-0 interrupted Vicryl suture. Next, a flexible sigmoidosc opy was performed with a patent anastomosis and air insufflation test revealed no bubbles or leaks. At this juncture, the 12-mm port was removed. Th e fascia was closed with 0 Vicryl sutures. Needle, instrument, lapa rotomy count was performed as correct. The robot was undocked. Robotic ports were close d with 4-0 Monocryl and Dermabond. The patient tolerated the procedure w ell and was taken to recovery PATIENT NAME: JASON GOYAL ACCOUNT #: [id number] room in good condition. Dictated By: Iván Cowan MD WT: OP:ANABELLE/BASILIO/MELO Conf#: [id number]/DID#: [id number] Authenticated by Iván Cowan MD On 09/19/2021 0 8:41:26 AM Electronically Signed by Iván Cowan MD on 08/26 02/13 at 0841 PATIENT NAME: JASON GOYAL ACCOUNT #: [id number] 2021-09-14 [id number] [facility] 10:39:00-00:[address] [address] PATIENT NAME: JASON GOYAL ADMIT DATE: ACCOUNT NO: [id number] ROOM NO: AGE: 86 REPORT TYPE: eELECTROCARDIOGRAM SEX: F ADMITTING PHYSICIAN: Iván Cowan MD ATTENDING PHYSICIAN: Iván Cowan MD Order: [id number] Test Reason : PRE OP PER ANESTHESIA GUIDELINE S Test Date/Time Stamp: FriSep 14 2021 10:39:21 Blood Pressure : / mmHG Vent. Rate : 073 BPM Atrial Rate : 073 BPM P-R Int : 124 ms QRS Dur : 068 ms QT Int : 386 ms P-R-T Axes : 081 081 079 degree s QTc Int : 425 ms Normal sinus rhythm Normal ECG When compared with ECG of 14-SEP-2021 10:37, MANUAL COMPARISON REQUIRED, DATA IS UNCONFIRMED Confirmed by JOSE ROBERTO MARTIN MD ([id number]) on 09/17/19 2:54:14 PM Referred By: Iván Cowan Confirmed by:JOSE ROBERTO MARTIN MD Electronically Signed by Jose Roberto Martin MD on 0 09/17/21 at [id number] PATIENT NAME: JASON GOYAL ACCOUNT #: [id number] 2019-05-19 EXAM: Abdomen CTA [facility] [place] 13:38:00-00:00 DATE: 05/19/2019 13:38 CDT. INDICATION: I15.0 Renovascular hypertension. COMPARISON: No recent compar isons are available at the time of dictation. Remote renal US on 03/02/2015. TECHNIQUE: Volumetric CT acq uisition of the abdomen after the intravenous infusion of contrast in the arterial phase. Axial, coronal and sagittal reconstructions, along with MIP reconstructions, are created at the acquisition workstation. AEC, mA/kV adjustment by pat ient size, and/or iterative reconstruction technique were used, per departmental dose-optimization program. IV contrast: 100 ml Omnipaque 300. Oral contrast: None. DLP: 384 mGy-cm. FINDINGS: Aorta: The aorta measures as follows: * 2.1 cm at the level of the aortic hiatus, * 1.6 cm at the level of the renal arteries, and * 1.1 cm just proximal to the iliac bifurcation. * Mixed calcific and soft pl aque is seen throughout the abdominal aorta, severe in extent. * There is notable calcific and soft plaque at the right renal ostium with moderate narrowing at this level (image 40 of series 2). * There is a 0.6 cm in lengt h focus of soft plaque about the left renal ostium with moderate luminal narrowing at this level (image 44 of series 2). * No acute abnormality is id entified. Specifically, no aneurysm or dissection is seen. * There appears to be a smal l penetrating atherosclerotic ulcer about the anterior aspect of the abdominal aorta, at the level of the aortic hiatus (axial image 19). The area of interest measures 1.5 x 0.5 cm in the axial plane. * There are mild calcifications at the origin of the SMA (axial image 34). Lower thorax: * Atelectasis versus scarrin g at the lung bases. There appears to be mild honeycombing at the right middle lobe. * Large paraesophageal herni a which contains stomach, spleen, and mesenteric fat, partially imaged (axial image 3). Hepatobiliary: Unremarkable. Gallbladder: Unremarkable. Adrenals: Unremarkable. Spleen: Unremarkable. Pancreas: Unremarkable. Kidneys: * The kidneys are atrophic. * The right kidney measures approximately 8.3 cm in length (sagittal midline image 97). * The left kidney measures a pproximately 7.6 cm in length (sagittal image 214). * No stones or hydronephrosis is identified on e ither side. * A benign-appearing, exophy tic cyst is seen about the upper pole of the left kidney, measuring 2.1 x 1.7 cm (axial image 36). Bowel and mesentery: Unremarkable. Bones and soft tissues: Unremarkable. IMPRESSION: 1. Atherosclerotic plaque at the renal ostia with at least moderate stenosis on BOTH sides. Interventional radiology consultation is recommended. 2. Atrophic kidneys. 3. Severe abdominal aortic a therosclerosis. There appears to be a small penetrating atherosclerotic ulcer along the anterior aspect of the suprarenal abdominal aorta, at the level of the aortic hiatus. 4. No acute abnormality is i dentified. Specifically, no aneurysm or aortic dissection is detected. 5. 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 This area is partially imaged. 2019-05-19 EXAM: Abdomen CTA [facility] [place] 13:38:00-00:00 DATE: 05/19/2019 13:38 CDT. INDICATION: I15.0 Renovascular hypertension. COMPARISON: No recent compar isons are available at the time of dictation. Remote renal US on 03/02/2015. TECHNIQUE: Volumetric CT acq uisition of the abdomen after the intravenous infusion of contrast in the arterial phase. Axial, coronal and sagittal reconstructions, along with MIP reconstructions, are created at the acquisition workstation. AEC, mA/kV adjustment by pat ient size, and/or iterative reconstruction technique were used, per departmental dose-optimization program. IV contrast: 100 ml Omnipaque 300. Oral contrast: None. DLP: 384 mGy-cm. FINDINGS: Aorta: The aorta measures as follows: * 2.1 cm at the level of the aortic hiatus, * 1.6 cm at the level of the renal arteries, and * 1.1 cm just proximal to the iliac bifurcation. * Mixed calcific and soft pl aque is seen throughout the abdominal aorta, severe in extent. * There is notable calcific and soft plaque at the right renal ostium with moderate narrowing at this level (image 40 of series 2). * There is a 0.6 cm in lengt h focus of soft plaque about the left renal ostium with moderate luminal narrowing at this level (image 44 of series 2). * No acute abnormality is id entified. Specifically, no aneurysm or dissection is seen. * There appears to be a smal l penetrating atherosclerotic ulcer about the anterior aspect of the abdominal aorta, at the level of the aortic hiatus (axial image 19). The area of interest measures 1.5 x 0.5 cm in the axial plane. * There are mild calcifications at the origin of the SMA (axial image 34). Lower thorax: * Atelectasis versus scarrin g at the lung bases. There appears to be mild honeycombing at the right middle lobe. * Large paraesophageal herni a which contains stomach, spleen, and mesenteric fat, partially imaged (axial image 3). Hepatobiliary: Unremarkable. Gallbladder: Unremarkable. Adrenals: Unremarkable. Spleen: Unremarkable. Pancreas: Unremarkable. Kidneys: * The kidneys are atrophic. * The right kidney measures approximately 8.3 cm in length (sagittal midline image 97). * The left kidney measures a pproximately 7.6 cm in length (sagittal image 214). * No stones or hydronephrosis is identified on e ither side. * A benign-appearing, exophy tic cyst is seen about the upper pole of the left kidney, measuring 2.1 x 1.7 cm (axial image 36). Bowel and mesentery: Unremarkable. Bones and soft tissues: Unremarkable. IMPRESSION: 1. Atherosclerotic plaque at the renal ostia with at least moderate stenosis on BOTH sides. Interventional radiology consultation is recommended. 2. Atrophic kidneys. 3. Severe abdominal aortic a therosclerosis. There appears to be a small penetrating atherosclerotic ulcer along the anterior aspect of the suprarenal abdominal aorta, at the level of the aortic hiatus. 4. No acute abnormality is i dentified. Specifically, no aneurysm or aortic dissection is detected. 5. 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 This area is partially imaged. 2019-05-19 EXAM: Abdomen CTA [facility] [place] 13:38:00-00:00 DATE: 05/19/2019 13:38 CDT. INDICATION: I15.0 Renovascular hypertension. COMPARISON: No recent compar isons are available at the time of dictation. Remote renal US on 03/02/2015. TECHNIQUE: Volumetric CT acq uisition of the abdomen after the intravenous infusion of contrast in the arterial phase. Axial, coronal and sagittal reconstructions, along with MIP reconstructions, are created at the acquisition workstation. AEC, mA/kV adjustment by pat ient size, and/or iterative reconstruction technique were used, per departmental dose-optimization program. IV contrast: 100 ml Omnipaque 300. Oral contrast: None. DLP: 384 mGy-cm. FINDINGS: Aorta: The aorta measures as follows: * 2.1 cm at the level of the aortic hiatus, * 1.6 cm at the level of the renal arteries, and * 1.1 cm just proximal to the iliac bifurcation. * Mixed calcific and soft pl aque is seen throughout the abdominal aorta, severe in extent. * There is notable calcific and soft plaque at the right renal ostium with moderate narrowing at this level (image 40 of series 2). * There is a 0.6 cm in lengt h focus of soft plaque about the left renal ostium with moderate luminal narrowing at this level (image 44 of series 2). * No acute abnormality is id entified. Specifically, no aneurysm or dissection is seen. * There appears to be a smal l penetrating atherosclerotic ulcer about the anterior aspect of the abdominal aorta, at the level of the aortic hiatus (axial image 19). The area of interest measures 1.5 x 0.5 cm in the axial plane. * There are mild calcifications at the origin of the SMA (axial image 34). Lower thorax: * Atelectasis versus scarrin g at the lung bases. There appears to be mild honeycombing at the right middle lobe. * Large paraesophageal herni a which contains stomach, spleen, and mesenteric fat, partially imaged (axial image 3). Hepatobiliary: Unremarkable. Gallbladder: Unremarkable. Adrenals: Unremarkable. Spleen: Unremarkable. Pancreas: Unremarkable. Kidneys: * The kidneys are atrophic. * The right kidney measures approximately 8.3 cm in length (sagittal midline image 97). * The left kidney measures a pproximately 7.6 cm in length (sagittal image 214). * No stones or hydronephrosis is identified on e ither side. * A benign-appearing, exophy tic cyst is seen about the upper pole of the left kidney, measuring 2.1 x 1.7 cm (axial image 36). Bowel and mesentery: Unremarkable. Bones and soft tissues: Unremarkable. IMPRESSION: 1. Atherosclerotic plaque at the renal ostia with at least moderate stenosis on BOTH sides. Interventional radiology consultation is recommended. 2. Atrophic kidneys. 3. Severe abdominal aortic a therosclerosis. There appears to be a small penetrating atherosclerotic ulcer along the anterior aspect of the suprarenal abdominal aorta, at the level of the aortic hiatus. 4. No acute abnormality is i dentified. Specifically, no aneurysm or aortic dissection is detected. 5. 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 This area is partially imaged. 2019-05-19 EXAM: Abdomen CTA [facility] [place] 13:38:00-00:00 DATE: 05/19/2019 13:38 CDT. INDICATION: I15.0 Renovascular hypertension. COMPARISON: No recent compar isons are available at the time of dictation. Remote renal US on 03/02/2015. TECHNIQUE: Volumetric CT acq uisition of the abdomen after the intravenous infusion of contrast in the arterial phase. Axial, coronal and sagittal reconstructions, along with MIP reconstructions, are created at the acquisition workstation. AEC, mA/kV adjustment by pat ient size, and/or iterative reconstruction technique were used, per departmental dose-optimization program. IV contrast: 100 ml Omnipaque 300. Oral contrast: None. DLP: 384 mGy-cm. FINDINGS: Aorta: The aorta measures as follows: * 2.1 cm at the level of the aortic hiatus, * 1.6 cm at the level of the renal arteries, and * 1.1 cm just proximal to the iliac bifurcation. * Mixed calcific and soft pl aque is seen throughout the abdominal aorta, severe in extent. * There is notable calcific and soft plaque at the right renal ostium with moderate narrowing at this level (image 40 of series 2). * There is a 0.6 cm in lengt h focus of soft plaque about the left renal ostium with moderate luminal narrowing at this level (image 44 of series 2). * No acute abnormality is id entified. Specifically, no aneurysm or dissection is seen. * There appears to be a smal l penetrating atherosclerotic ulcer about the anterior aspect of the abdominal aorta, at the level of the aortic hiatus (axial image 19). The area of interest measures 1.5 x 0.5 cm in the axial plane. * There are mild calcifications at the origin of the SMA (axial image 34). Lower thorax: * Atelectasis versus scarrin g at the lung bases. There appears to be mild honeycombing at the right middle lobe. * Large paraesophageal herni a which contains stomach, spleen, and mesenteric fat, partially imaged (axial image 3). Hepatobiliary: Unremarkable. Gallbladder: Unremarkable. Adrenals: Unremarkable. Spleen: Unremarkable. Pancreas: Unremarkable. Kidneys: * The kidneys are atrophic. * The right kidney measures approximately 8.3 cm in length (sagittal midline image 97). * The left kidney measures a pproximately 7.6 cm in length (sagittal image 214). * No stones or hydronephrosis is identified on e ither side. * A benign-appearing, exophy tic cyst is seen about the upper pole of the left kidney, measuring 2.1 x 1.7 cm (axial image 36). Bowel and mesentery: Unremarkable. Bones and soft tissues: Unremarkable. IMPRESSION: 1. Atherosclerotic plaque at the renal ostia with at least moderate stenosis on BOTH sides. Interventional radiology consultation is recommended. 2. Atrophic kidneys. 3. Severe abdominal aortic a therosclerosis. There appears to be a small penetrating atherosclerotic ulcer along the anterior aspect of the suprarenal abdominal aorta, at the level of the aortic hiatus. 4. No acute abnormality is i dentified. Specifically, no aneurysm or aortic dissection is detected. 5. 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 This area is partially imaged. 2016-04-22 EXAM: MRI BRAIN WITHOUT CONTRAST [facility] [place] 11:02:00-00:00 DATE: 04/21/2016 Center INDICATION: Vertigo COMPARISON: Outside CT brain dated 04/21/2016. TECHNIQUE: Multiplanar, multisequence MRI of the brain without contrast. IV contrast: None. FINDINGS: Diffusion-weighted images fail demonstrate any r ecent ischemic change. Routine non-contrast imaging demonstrates no mass lesion or structural abnormality. There is moderate periventricular and deep white matter T2/FLAIR hyperintensity. Moderate diffuse cortical volume loss with prominence of the vent ricles and sulci. Punctate focus of GRE susceptibility artifact in the white matter posterior to the splenium of the corpus callosum on the left is likely old focus of hemorr dianne. There is no acute hemo rrhagic change. The intracranial arterial and venous structures demonstrate normal flow voids. The visible paranasal sinuses are clear. Small defects in the skull b ase inferior to the bilateral Meckel's caves and an additional defect in the left sphenoid bone, which are filled with CSF signal, are consistent with small meningoceles. No herniation of brain parenchyma is present. IMPRESSION: 1. No acute infarct. 2. Severe white matter disea se, likely sequelae from chronic microvascular ischemic changes. 3. Moderate diffuse cerebral atrophy. 2016-04-22 EXAM: MRI BRAIN WITHOUT CONTRAST [facility] [place] 11:02:00-00:00 DATE: 04/21/2016 Center INDICATION: Vertigo COMPARISON: Outside CT brain dated 04/21/2016. TECHNIQUE: Multiplanar, multisequence MRI of the brain without contrast. IV contrast: None. FINDINGS: Diffusion-weighted images fail demonstrate any r ecent ischemic change. Routine non-contrast imaging demonstrates no mass lesion or structural abnormality. There is moderate periventricular and deep white matter T2/FLAIR hyperintensity. Moderate diffuse cortical volume loss with prominence of the vent ricles and sulci. Punctate focus of GRE susceptibility artifact in the white matter posterior to the splenium of the corpus callosum on the left is likely old focus of hemorr dianne. There is no acute hemo rrhagic change. The intracranial arterial and venous structures demonstrate normal flow voids. The visible paranasal sinuses are clear. Small defects in the skull b ase inferior to the bilateral Meckel's caves and an additional defect in the left sphenoid bone, which are filled with CSF signal, are consistent with small meningoceles. No herniation of brain parenchyma is present. IMPRESSION: 1. No acute infarct. 2. Severe white matter disea se, likely sequelae from chronic microvascular ischemic changes. 3. Moderate diffuse cerebral atrophy. 2016-04-22 EXAM: MRI BRAIN WITHOUT CONTRAST [facility] [place] 11:02:00-00:00 DATE: 04/21/2016 Center INDICATION: Vertigo COMPARISON: Outside CT brain dated 04/21/2016. TECHNIQUE: Multiplanar, multisequence MRI of the brain without contrast. IV contrast: None. FINDINGS: Diffusion-weighted images fail demonstrate any r ecent ischemic change. Routine non-contrast imaging demonstrates no mass lesion or structural abnormality. There is moderate periventricular and deep white matter T2/FLAIR hyperintensity. Moderate diffuse cortical volume loss with prominence of the vent ricles and sulci. Punctate focus of GRE susceptibility artifact in the white matter posterior to the splenium of the corpus callosum on the left is likely old focus of hemorr dianne. There is no acute hemo rrhagic change. The intracranial arterial and venous structures demonstrate normal flow voids. The visible paranasal sinuses are clear. Small defects in the skull b ase inferior to the bilateral Meckel's caves and an additional defect in the left sphenoid bone, which are filled with CSF signal, are consistent with small meningoceles. No herniation of brain parenchyma is present. IMPRESSION: 1. No acute infarct. 2. Severe white matter disea se, likely sequelae from chronic microvascular ischemic changes. 3. Moderate diffuse cerebral atrophy. 2016-04-22 EXAM: MRI BRAIN WITHOUT CONTRAST [facility] [place] 11:02:00-00:00 DATE: 04/21/2016 Center INDICATION: Vertigo COMPARISON: Outside CT brain dated 04/21/2016. TECHNIQUE: Multiplanar, multisequence MRI of the brain without contrast. IV contrast: None. FINDINGS: Diffusion-weighted images fail demonstrate any r ecent ischemic change. Routine non-contrast imaging demonstrates no mass lesion or structural abnormality. There is moderate periventricular and deep white matter T2/FLAIR hyperintensity. Moderate diffuse cortical volume loss with prominence of the vent ricles and sulci. Punctate focus of GRE susceptibility artifact in the white matter posterior to the splenium of the corpus callosum on the left is likely old focus of hemorr dianne. There is no acute hemo rrhagic change. The intracranial arterial and venous structures demonstrate normal flow voids. The visible paranasal sinuses are clear. Small defects in the skull b ase inferior to the bilateral Meckel's caves and an additional defect in the left sphenoid bone, which are filled with CSF signal, are consistent with small meningoceles. No herniation of brain parenchyma is present. IMPRESSION: 1. No acute infarct. 2. Severe white matter disea se, likely sequelae from chronic microvascular ischemic changes. 3. Moderate diffuse cerebral atrophy. 2015-03-02 EXAM: RENAL [facility] [place] 12:46:45-00:00 DATE: 03/02/2015. INDICATION: Follow up renal cyst. ADDITIONAL INFORMATION: None. COMPARISON: Renal ultrasound from 03/03/2014. TECHNIQUE: Multiplanar sandra val and color Doppler ultrasound images of the [...] not significantly changed compared to previous exam. 2015-03-02 EXAM: [facility] [place] 12:46:45-00:00 DATE: 03/02/2015. INDICATION: Follow up renal cyst. ADDITIONAL INFORMATION: None. COMPARISON: Renal ultrasound from 03/03/2014. TECHNIQUE: Multiplanar sandra val and color Doppler ultrasound images of the [...] not significantly changed compared to previous exam. 2015-03-02 EXAM: US RENAL [facility] 12:46:45-00:00 DATE: 03/02/2015. INDICATION: Follow up renal cyst. ADDITIONAL INFORMATION: None. COMPARISON: Renal ultrasound from 03/03/2014. TECHNIQUE: Multiplanar sandra val and color Doppler ultrasound images of the [...] not significantly changed compared to previous exam. 2015-03-02 EXAM: RENAL [facility] 12:46:45-00:00 DATE: 03/02/2015. INDICATION: Follow up renal cyst. ADDITIONAL INFORMATION: None. COMPARISON: Renal ultrasound from 03/03/2014. TECHNIQUE: Multiplanar sandra val and color Doppler ultrasound images of the [...]
--- NOTE | 2023-03-01 20:03 | RAD REPORT ---
EXAM DESCRIPTION: CT - Abdomen Pelvis Wo Contrast - 03/01/2023 7:47 pm CLINICAL HISTORY: Abdominal pain COMPARISON: 2021 TECHNIQUE: Computed axial tomography of the abdomen and pelvis was obtained. IV and oral contrast we re not requested. All CT scans are performed using dose optimization technique as appropriate and may include automated exposure control or mA/KV adjustment according to patient size. FINDINGS: The evaluation of solid organs, vessels and bowel is limited secondary to the lack of con trast administration. Large hiatal hernia Liver, spleen, pancreas and adrenals grossly normal. Tiny renal calculi. No hydronephrosis. 16 millimeter dense left renal cyst is benign. Additional smal l left renal cyst. Postsurgical changes involve the colon. No evidence diverticulitis. Large amount of stool throughout the colon. Bilateral hip arthroplasties. Artifact from the hardware obscures detail the pelvis. Subacute comminuted avulsion fracture greater trochanter left femur. Atherosclerosis IMPRESSION: Subacute comminuted avulsion fracture greater trochanter left femur Marked amount of stool throughout the colon
--- NOTE | 2023-03-01 20:05 | RAD REPORT ---
EXAM DESCRIPTION: RAD - Femur Left - 03/01/2023 7:44 pm CLINICAL HISTORY: Left leg pain FINDINGS: Comminuted avulsion fracture greater trochanter left femur Left hip prosthesis is in good position without evidence of loosening. No dislocation Osteoporosis
--- NOTE | 2023-03-01 21:03 | ER ---
Nurse's Notes [facility] Name: Veena Gray Age: 88 yrs Sex: Female : 1935 Arrival Date: 03/01/2023 Time: 18:27 Bed 7 Private MD: Diagnosis: Left hip avulsion fracture greater trochanter, failure to thrive, constipation Presentation: 03/01 18:32 Chief complaint: EMS states: patient fell approx one week ago, and was evaluated at ap3 another facility. patient states she was dx with a left shoulder fx, and a left hip fx. patient is here for pain, constipation as her last BM was 4 days ago. Coronavirus screen: At this time, the client does not indicate any symptoms associated with coronavirus-19. Ebola Screen: No symptoms or risks identified at this time. Initial Sepsis Screen: Does the patient meet any 2 criteria? No. Patient's initial sepsis screen is negative. Does the patient have a suspected source of infection? No. Patient's initial sepsis screen is negative. Risk Assessment: Do you want to hurt yourself or someone else? Patient reports no desire to harm self or others. Onset of symptoms was February 22, 2023. 18:32 Method Of Arrival: EMS: [facility] ap3 18:32 Acuity: RITIKA 3 ap3 Triage Assessment: 18:44 General: Appears comfortable, Behavior is calm, cooperative. Pain: Complains of pain in ap3 left arm and left leg. Neuro: Level of Consciousness is awake, alert, obeys commands, Oriented to person, place, time, situation. Cardiovascular: Patient's skin is warm and dry. Respiratory: Airway is patent Respiratory effort is even, unlabored, Respiratory pattern is regular, symmetrical. Derm: Bruising that is Reports pain that is 3 out of 10 on a pain scale. 18:45 GI: Reports constipation. ap3 Historical: - Allergies: 18:34 Codeine; ap3 18:34 Macrobid; ap3 18:34 Nitrofurantoin; ap3 18:34 PENICILLINS; ap3 18:34 Sulfa (Sulfonamide Antibiotics); ap3 - Home Meds: 18:34 Furosemide Oral [Active]; metoprolol succinate 25 mg oral Tablet, Extended Release 24 ap3 hr [Active]; Eliquis 2.5 mg oral tablet [Active]; Cephalexin Oral [Active]; levothyroxine oral [Active]; Myrbetriq oral [Active]; amlodipine oral [Active]; folate [Active]; Omeprazole Oral [Active]; Magnesium Oxide Oral [Active]; Fluoxetine Oral [Active]; hydrocodone-acetaminophen 5-325 mg Oral tablet [Active]; - PMHx: 18:34 a fib; GERD; hiatal hernia; Hypothyroidism; kidney disease; Myocardial infarction; ap3 Vertigo; - PSHx: 18:34 Cholecystectomy; hysterectomy; Iliac stent; ap3 - Immunization history:: Client reports receiving the 2nd dose of the Covid vaccine. - Social history:: Smoking status: Patient denies any tobacco usage or history of. Screenin:45 Abuse screen: Denies threats or abuse. Nutritional screening: No deficits noted. ap3 Tuberculosis screening: No symptoms or risk factors identified. 18:46 [facility] ED Fall Risk Assessment (Adult) History of falling in the last 3 months, ap3 including since admission Yes- fall prone (multiple falls) (3 pts). Assessment: 19:35 General: Appears uncomfortable, Behavior is calm, cooperative. Pain: Complains of pain kl in left arm and left leg Pain currently is 7 out of 10 on a pain scale. Quality of pain is described as aching, Aggravated by increased activity, repositioning. Neuro: No deficits noted. Cardiovascular: No deficits noted. Respiratory: No deficits noted. Airway is patent Trachea midline Respiratory effort is even, unlabored, Respiratory pattern is regular, symmetrical. GI: Reports constipation. : Reports burning with urination, incontinence, vaginal itching. Derm: Rash noted that is on groin. Derm: Bruising that is dark purple, on left arm. Musculoskeletal: Reports unable to ambulate. Vital Signs: 18:32 BP 111 / 59; Pulse 77; Resp 17; Temp 97.7; Pulse Ox 100% ; Weight 50.5 kg; Pain 3/10; ap3 19:46 BP 154 / 60; Pulse 73; Resp 16; Pulse Ox 100% on R/A; jb4 22:47 BP 134 / 65; Pulse 84; Resp 19; Temp 97(TE); Pulse Ox 96% on R/A; kl 18:32 Pain Scale: Adult ap3 ED Course: 18:30 Patient arrived in ED. zm 18:31 [facility] sb[facility] 18:31 Sridhar Acevedo MD is Attending Physician. sb4 18:32 Lis Patricia, RN is Primary Nurse. ap3 18:34 Triage completed. ap3 18:46 Arm band placed on right wrist. ap3 18:46 Patient has correct armband on for positive identification. Bed in low position. Call ap3 light in reach. Side rails up X2. Adult w/ patient. Pulse ox on. NIBP on. Door closed. Noise minimized. 19:28 Attending Physician role handed off by Sridhar Acevedo MD kdr 19:28 Yusuf Ashley MD is Attending Physician. kdr 19:46 XRAY Femur LEFT In Process Unspecified. EDMS 19:49 CT Abd/Pelvis - Without Contrast In Process Unspecified. EDMS 21:01 Mynor Cole MD is Hospitalizing Provider. kdr 21:07 Cleaned of incontinence. pericare done, river soap wiped, changed brief, purewick wm place per Pt request, place on contineous low suction. 21:28 Initial lab(s) drawn, by de, sent to lab. 21:31 Basic Metabolic Panel Sent. 21:31 CBC with Diff Sent. wm 22:48 Patient admitted, IV remains in place. kl 22:48 No provider procedures requiring assistance completed. kl 23:00 UAM Sent. wm Administered Medications: 21:58 Drug: Dulcolax PO Delayed Release Tablet 5 mg Route: PO; kl 21:58 Drug: Miralax PO 17 grams Route: PO; Outcome: 21:03 Decision to Hospitalize by Provider. kdr 22:47 Admitted to Med/surg via stretcher, room 213, Report called to rn kl 22:47 Condition: stable 22:47 Discharge instructions given to patient, family, Instructed on the need for admit, Demonstrated understanding of instructions. 23:10 Patient left the ED. kl Signatures: Dispatcher [employer] EDIA Barbara Moscoso RN RN kl Rittger, Kevin, MD MD [facility] Alpesh Simmons RN RN jb4 Lis Patricia RN RN ap3 Marsh, Wendy Sara Willard Sophia, PA-C PA-C sb4 Corrections: (The following items were deleted from the chart) 21:10 21:07 Cleaned of incontinence. pericare done, river soap wiped, changed brief, wm purewick place per Pt request, place on intermittent low suction wm
--- NOTE | 2023-03-01 21:03 | EDPHYS ---
Physician Documentation [facility] Name: Veena Gray Age: 88 yrs Sex: Female : 1935 Arrival Date: 03/01/2023 Time: 18:27 Bed 7 Private MD: ED Physician Yusuf Ashley HPI: 03/01 18:38 This 88 yrs old Female presents to ER via EMS with complaints of constipation, UTI, sb4 immobility. 18:38 88-year-old female with past medical history of hypertension, CKD presents from home sb4 with constipation, generalized pain, and concerns of UTI. About a week ago, patient fell at home and sustained a fracture to her left shoulder and left hip. She was evaluated at [facility] ED and discharged home. She has followed up with Dr. Stover and is prescribed [place]. She only has her to help her at home so she has not been able to move much. Historical: - Allergies: 18:34 Codeine; ap3 18:34 Macrobid; ap3 18:34 Nitrofurantoin; ap3 18:34 PENICILLINS; ap3 18:34 Sulfa (Sulfonamide Antibiotics); ap3 - Home Meds: 18:34 Furosemide Oral [Active]; metoprolol succinate 25 mg oral Tablet, Extended Release 24 ap3 hr [Active]; Eliquis 2.5 mg oral tablet [Active]; Cephalexin Oral [Active]; levothyroxine oral [Active]; Myrbetriq oral [Active]; amlodipine oral [Active]; folate [Active]; Omeprazole Oral [Active]; Magnesium Oxide Oral [Active]; Fluoxetine Oral [Active]; hydrocodone-acetaminophen 5-325 mg Oral tablet [Active]; - PMHx: 18:34 a fib; GERD; hiatal hernia; Hypothyroidism; kidney disease; Myocardial infarction; ap3 Vertigo; - PSHx: 18:34 Cholecystectomy; hysterectomy; Iliac stent; ap3 - Immunization history:: Client reports receiving the 2nd dose of the Covid vaccine. - Social history:: Smoking status: Patient denies any tobacco usage or history of. ROS: 18:38 Constitutional: Negative for fever, chills, and weight loss, Eyes: Negative for injury, sb4 pain, redness, and discharge, ENT: Negative for injury, pain, and discharge, Cardiovascular: Negative for chest pain, palpitations, and edema, Respiratory: Negative for shortness of breath, cough, wheezing, and pleuritic chest pain, Back: Negative for injury and pain, Skin: Negative for injury, rash, and discoloration, Neuro: Negative for headache, weakness, numbness, tingling, and seizure, Psych: Negative for depression, anxiety, suicide ideation, homicidal ideation, and hallucinations. 18:38 Abdomen/GI: Positive for constipation, Negative for abdominal pain, vomiting. 18:38 MS/extremity: Positive for injury or acute deformity, pain, left hip and left shoulder. Exam: 18:38 Constitutional: This is a well developed, well nourished patient who is awake, alert, sb4 and in no acute distress. Head/Face: Normocephalic, atraumatic. Eyes: Extra-ocular motions intact. Periorbital areas with no swelling, redness, or edema. Cardiovascular: Regular rate and rhythm with a normal S1 and S2. Respiratory: Lungs have equal breath sounds bilaterally, clear to auscultation and percussion. No rales, rhonchi or wheezes noted. No increased work of breathing, no retractions or nasal flaring. Abdomen/GI: Soft, non-tender, no distension. Back: No spinal tenderness. No costovertebral tenderness. Full range of motion. Skin: Warm, dry with normal turgor. Normal color with no rashes, no lesions, and no evidence of cellulitis. Neuro: Awake and alert, GCS 15, oriented to person, place, time, and situation. Cranial nerves II-XII grossly intact. Motor strength 5/5 in all extremities. Sensory grossly intact. Cerebellar exam normal. Normal gait. Psych: Awake, alert, with orientation to person, place and time. Behavior, mood, and affect are within normal limits. 18:38 Musculoskeletal/extremity: ROM: limited active range of motion, in the left leg, limited active range of motion due to pain, in the left arm. Vital Signs: 18:32 BP 111 / 59; Pulse 77; Resp 17; Temp 97.7; Pulse Ox 100% ; Weight 50.5 kg; Pain 3/10; ap3 19:46 BP 154 / 60; Pulse 73; Resp 16; Pulse Ox 100% on R/A; jb4 22:47 BP 134 / 65; Pulse 84; Resp 19; Temp 97(TE); Pulse Ox 96% on R/A; kl 18:32 Pain Scale: Adult ap3 MDM: 18:31 Patient medically screened. sb4 18:38 Differential Diagnosis UTI, SBO, pyelonephritis, constipation, musculoskeletal pain sb4 sequela. 18:53 ED course: RUST radiology results. left humerus: Acute impacted and comminuted fracture sb4 of the greater tuberosity and surgical neck of the humerus with superior displacement of the distal humeral fracture fragment. left femur: Suspected periprosthetic intertrochanteric fracture. 21:00 Data reviewed: vital signs, nurses notes, lab test result(s), radiologic studies. ED kdr course: Patient continues to be stable in the ED however she is unable to care for self herself at home. I discussed with Dr. Stover who indicated he would consult on the patient if requested by hospitalist service. Patient was admitted to the hospitalist service in stable condition and happy with the care provided. 03/01 18:31 Order name: UAM sb4 03/01 20:58 Order name: CBC with Diff kdr 03/01 20:58 Order name: Basic Metabolic Panel kdr 03/01 18:35 Order name: CT Abd/Pelvis - Without Contrast; Complete Time: 20:19 sb4 03/01 18:49 Order name: XRAY Femur LEFT; Complete Time: 20:19 sb4 Administered Medications: 21:58 Drug: Dulcolax PO Delayed Release Tablet 5 mg Route: PO; kl 21:58 Drug: Miralax PO 17 grams Route: PO; kl Disposition: 21:00 Co-signature as Attending Physician, Yusuf Ashley MD I agree with the assessment and kdr plan of care. Disposition Summary: 03/01/23 21:03 Hospitalization Ordered Hospitalization Status: Inpatient Admission kdr Provider: Mynor Cole Location: Telemetry/MedSurg (Inpatient) kdr Condition: Fair kdr Problem: an ongoing problem kdr Symptoms: are unchanged kdr Bed/Room Type: Standard kdr Room Assignment: 213(03/01/23 21:36) cg Diagnosis - Left hip avulsion fracture greater trochanter, failure to thrive, constipation kdr Forms: - Medication Reconciliation Form kdr - SBAR form kdr Signatures: Dispatcher [employer] EDMS Danis, Barbara, RN Yusuf Guillaume MD MD kdr Garcia, Cindy, RN RN cg Prokisch, Amanda, RN RN ap3 Brown, Sophia, PA-C PA-C sb4 Corrections: (The following items were deleted from the chart) 21:36 21:03 tone ferro
[2023-03-01] MEDS ORDERED: BISACODYL E.C. 5 MG TAB PO ONE (21:47)
[2023-03-01] MEDS ORDERED: POLYETHYL GLY 3350 17 GM/DOSE ONE (21:47)
[2023-03-01 21:53] LABS: Absolute Lymphocytes (CBC) 1.3 K/uL (0.7-4.9); Hematocrit 27.8 % (36.0-45.0); Lymphocytes % 14.2 % (15.3-44.8); MCV 91.1 fL (80-100); MPV 7.2 fL (7.6-11.3); RBC Red Blood Cell Count 3.05 M/uL (3.86-4.86)
--- NOTE | 2023-03-01 21:57 | P.HP ---
Certification for Inpatient Patient admitted to: Inpatient With expected LOS: >2 Midnights Patient will require the following post-hospital care: None Practitioner: I am a practitioner with admitting privileges, knowledge of patient current condition, hospital course, and medical plan of care. Services: Services provided to patient in accordance with Admission requirements found in Title 42 Section 412.3 of the Code of Federal Regulations Patient History Date of Service: 03/01/23 Reason for admission: Left greater trochanteric avulsion fracture History of Present Illness: 88-year-old female with history of atrial fibrillation on chronic anticoagulation, CAD, chronic diastolic congestive heart failure, hypertension, CKD 3, GERD presents to the emergency department chief complaint of arm, leg pain. She reports that she had a fall on Friday the and [facility] was subsequently discharged home at that time she was noted to have a left humeral fracture as well as a suspected periprosthetic intertrochanteric fracture of the left femur. She has been at home where she lives with her significant other and has been unable to ambulate having significant pain, also became constipated and is concern for urinary tract infection. She was evaluated in the emergency department CT of the abdomen pelvis without contrast was performed which revealed subacute comminuted avulsion fracture greater trochanter left femur, marked amount of stool throughout the colon. ED physician spoke with Dr. Stover who will consult on patient, she will need to be admitted to the hospital as she is unable to ambulate or care for herself. Allergies codeine Allergy (Mild, Verified 01/17/23 08:46) upset stomach nitrofurantoin [From Macrobid] Allergy (Verified 01/17/23 08:46) Shortness of breath Penicillins Allergy (Verified 01/17/23 08:46) Hives Sulfa (Sulfonamide Antibiotics) Allergy (Verified 01/17/23 08:46) Hives/pulmonary fibrosis latex adhesives Allergy (Uncoded 01/17/23 08:46) "skin comes off" Home Medications: Levothyroxine [Synthroid*] 1 tab PO DAILY #30 tab 07/12/16 Mirabegron [Myrbetriq] 50 mg PO DAILY 01/05/21 Apixaban [Eliquis *] 2.5 mg PO BID #60 tablet 02/04/22 Fluoxetine HCl 1 tab PO DAILY 04/22/22 Amlodipine [Norvasc*] 2.5 mg PO BID 10/30/22 Cephalexin [Keflex] 500 mg PO BID 01/09/23 Cyanocobalamin [Vitamin B-12] 1,000 mcg PO DAILY 01/09/23 Metoprolol Succinate [Toprol Xl] 25 mg PO DAILY 01/09/23 - Past Medical/Surgical History Diabetic: No -: Hypertension -: Coronary artery disease -: Chronic renal disease (Dr. Mackenzie) -: Orthostatic hypotension -: Osteoporosis -: Osteoarthritis -: GERD -: Depression with anxiety -: Hypothyroidism -: CHF -: GERD surgery -: History of chest tube placements x3 -: History of heart catheterization -: Cholecystectomy -: Hysterectomy -: Right knee surgery -: R hip surgery Psychosocial/ Personal History: She is , she has 3 children, she lives at home, she is a retired [employer]. - Family History Mother -: Cancer Notes: PT states, " She from "Old Age", she was 89." Father -: Stroke Notes: from abdominal aneurysm - Social History Smoking Status: Never smoker Alcohol use: No CD- Drugs: No Caffeine use: Yes Place of Residence: Home Review of Systems 10-point ROS is otherwise unremarkable Gastrointestinal: Constipation Genitourinary: Dysuria Musculoskeletal: Arm Pain, Leg Pain Physical Examination - Physical Exam General: Alert, In no apparent distress, Oriented x3 HEENT: Atraumatic, PERRLA, Mucous membr. moist/pink, EOMI, Sclerae nonicteric Neck: Supple, 2+ carotid pulse no bruit, No LAD, Without JVD or thyroid abnormality Respiratory: Clear to auscultation bilaterally, Normal air movement Cardiovascular: No edema, Regular rate/rhythm, Normal S1 S2 Capillary refill: <2 Seconds Gastrointestinal: Normal bowel sounds, No tenderness Musculoskeletal: No tenderness Integumentary: No rashes Neurological: Normal speech, Normal tone, Normal affect Assessment and Plan - Plan Assessment: Subacute comminuted avulsion fracture greater trochanter left femur Left humeral fracture Deconditioning, immobility Atrial fibrillation on chronic anticoagulation Chronic diastolic congestive heart failure Hypertension GERD CKD 3 Plan: Subacute comminuted avulsion fracture greater trochanter left femur Left humeral fracture Deconditioning, immobility Orthopedics consult in place, continue gentle IV fluids, as needed pain medications. Patient likely to need rehab and/or placement at discharge, will consult social media content specialist. Appreciate further input from orthopedics. She lives at home with her and is unable to walk. Atrial fibrillation on chronic anticoagulation Continue metoprolol succinate 25 mg daily as well as Eliquis 2.5 twice daily. Chronic diastolic congestive heart failure Appears compensated continue frusemide 40 mg daily. Hypertension GERD CKD 3 Home medications continued. DVT PPX: Continue Eliquis Code status: Full code Discharge Plan: Home Plan to discharge in: Greater than 2 days - Advance Directives Does patient have a Living Will: No Does patient have a Durable POA for Healthcare: No - Code Status/Comfort Care Code Status Assessed: Yes (Full code) Critical Care: No Time Spent Managing Pts Care (In Minutes): 55
[2023-03-01] MEDS ORDERED: ONDANSETRON 4 MG/2 ML VIAL IV PRN (22:31)
[2023-03-01] MEDS ORDERED: MELATONIN 5 MG TABLET PO PRN (22:31)
[2023-03-01 23:24] LABS: Specific Gravity 1.017 (1.005-1.030); Urine Bacteria <20 /HPF (<20); Urine Bilirubin NEGATIVE (Negative); Urine Blood Negative (Negative); Urine Clarity Turbid (Clear); Urine Color Light-Yellow (Yellow); Urine Glucose NEGATIVE (Negative); Urine Mucus Slight /HPF (None Seen); Urine Protein NEGATIVE (Negative); Urine RBC <5 /HPF (None Seen); Urine Urobilinogen 1+ (Normal); Urine WBC Clump Rare /HPF (None Seen); Urine pH 5.5 (5.0-7.0)
[2023-03-01 23:41] VITALS: O2SAT 96
[2023-03-02 00:08] VITALS: BMI 19.1
[2023-03-02 03:05] LABS: Absolute Lymphocytes (CBC) 1.7 K/uL (0.7-4.9); Hematocrit 25.2 % (36.0-45.0); Lymphocytes % 20.2 % (15.3-44.8); MCV 91.1 fL (80-100); MPV 6.6 fL (7.6-11.3); RBC Red Blood Cell Count 2.77 M/uL (3.86-4.86)
[2023-03-02 03:39] LABS: Potassium 3.7 mEq/L (3.5-5.1)
[2023-03-02] MEDS ORDERED: POLYETHYL GLY 3350 17 GM/DOSE PO PRN (05:46)
[2023-03-02] MEDS: LEVOTHYROXINE SOD 0.075 MG TAB PO SCH (05:54)
[2023-03-02] MEDS: METOPROLOL XL 25 MG TAB PO SCH (05:54)
[2023-03-02] MEDS: FUROSEMIDE 40 MG TABLET PO SCH (08:06)
[2023-03-02] MEDS: APIXABAN 2.5 MG TABLET PO SCH ×2 (08:07→20:37)
[2023-03-02] MEDS: PANTOPRAZOLE 40MG TABLET PO SCH ×2 (08:08→17:01)
[2023-03-02] MEDS: AMLODIPINE 2.5 MG TAB PO SCH (08:08)
--- NOTE | 2023-03-02 08:43 | RAD REPORT ---
EXAM DESCRIPTION: RAD - Humerus Left - 03/02/2023 7:04 am CLINICAL HISTORY: fall COMPARISON: No comparisons TECHNIQUE: Left Humerus, 2 views. FINDINGS: Mildly comminuted, and impacted proximal humeral metaphysis fracture, with abduction of th e proximal fragment. Glenohumeral articulation appears to be in good alignment on the provided projec tions. There is no dislocation or periosteal reaction noted. No foreign body or other soft tissue ab normality. IMPRESSION: Mildly comminuted and impacted proximal humeral metaphysis fracture.
--- NOTE | 2023-03-02 19:13 | P.PN ---
Subjective Date of Service: 03/02/23 Chief Complaint: Left greater trochanteric avulsion fracture No acute events overnight. She reports that she is experiencing significant left hip and left arm pain, making it difficult for her to ambulate/move. She is interested in PT services. She denies any chest pain, palpitations, or shortness of breath. Review of Systems 10-point ROS is otherwise unremarkable Musculoskeletal: Arm Pain (left), Leg Pain (left hip) Physical Examination - Vital Signs Temperature: 98.1 F Blood Pressure: 144/65 Pulse: 71 Respirations: 16 Pulse Ox (%): 98 - Physical Exam General: Alert, In no apparent distress, Oriented x3 HEENT: Atraumatic, Mucous membr. moist/pink, Sclerae nonicteric Neck: JVD not distended Respiratory: Clear to auscultation bilaterally, Normal air movement Cardiovascular: No edema, Regular rate/rhythm, Normal S1 S2, No gallops, No rubs, No murmurs Gastrointestinal: Normal bowel sounds, Soft and benign, Non-distended, No tenderness, No rebound, No guarding Musculoskeletal: No clubbing, Other (left hip pain with any movement. left upper extremity with bruising.) Integumentary: No rashes Neurological: Normal speech, Normal affect Assessment And Plan - Plan # Traumatic Ground-Level Fall complicated by Subacute Comminuted Left Greater Trochanter Femur Avulsion Fracture and Left Humerus Fracture # Deconditioning # Osteoporosis - States that she suffered a mechanical ground-level fall on 02/21/2023. She reports that she was at [facility] and was told by their Orthopedic Surgery that her injuries are non-operative. - Radiology: - CT abdomen/pelvis = "subacute comminuted avulsion fracture greater trochanter left femur. Marked amount of stool throughout the colon." - Left femur x-ray = "comminuted avulsion fracture greater trochanter left femur. Left hip prosthesis is in good position without evidence of loosening. No dislocation. Osteoporosis." - Left humerus x-ray = "mildly comminuted and impacted proximal humeral metaphysis fracture." - Orthopedic Surgery consulted and overnight team notified Dr. Stover - recommendations appreciated - Consult PT - will likely require SNF vs IPR placement # Chronic Atrial Fibrillation on Chronic Anticoagulation - Continue home metoprolol, apixaban # Chronic Compensated Diastolic Congestive Heart Failure - Continue home metoprolol, furosemide # Hypertension - Continue home metoprolol, amlodipine # Left Renal Cysts Her creatinine level is within normal limits. Although previously diagnosed with CKDIII, I suspect that her GFR decline is age-related. Cannot exclude earlier stage CKD. - Monitor creatinine and urine output - If worsening, obtain renal ultrasound - Renally dose medications # Hypothyroidism - Continue home levothyroxine # Large Hiatal Hernia with Gastroesophageal Reflux Disease - Continue home pantoprazole Mynor Cole M.D.
[2023-03-03 03:55] LABS: Absolute Lymphocytes (CBC) 1.4 K/uL (0.7-4.9); Hematocrit 25.5 % (36.0-45.0); Lymphocytes % 17.7 % (15.3-44.8); MPV 7.2 fL (7.6-11.3); RBC Red Blood Cell Count 2.83 M/uL (3.86-4.86)
[2023-03-03] MEDS: LEVOTHYROXINE SOD 0.075 MG TAB PO SCH (05:59)
[2023-03-03] MEDS: METOPROLOL XL 25 MG TAB PO SCH (05:59)
[2023-03-03] MEDS: PANTOPRAZOLE 40MG TABLET PO SCH ×2 (07:43→16:32)
[2023-03-03] MEDS: APIXABAN 2.5 MG TABLET PO SCH ×2 (07:43→20:41)
[2023-03-03] MEDS: FUROSEMIDE 40 MG TABLET PO SCH (07:43)
[2023-03-03] MEDS: AMLODIPINE 2.5 MG TAB PO SCH (07:43)
--- NOTE | 2023-03-03 10:06 | CON ---
Date of Consultation: 03/02/2023 Reason For Consultation: Left shoulder pain and left hip pain. History Of Present Illness: Ms. Gray is an 88-year-old female who presented to the ER after sustaini ng a fall onto her left side over 1 week ago. She has been seen in an outside hospital and diagnosed with a left proximal humerus fracture and left periprosthetic femur fracture. The fracture appeared stable of her left hip. A nonoperative treatment was recommended and the patient was discharged myriam e. The patient has been able to mobilize safely at home and reports that her pain has been worsening and she was brought to the emergency room for further evaluation and treatment recommendations. She reports TB pain in the left shoulder as well as her left hip. X-rays in the emergency room demonstr ated a left periprosthetic femur fracture and subsequent x-rays of the left humerus demonstrates a le ft proximal humerus fracture. Review of Systems: As above, otherwise negative. Past Medical History: Includes hypertension, coronary artery disease, chronic kidney disease, osteop orosis, GERD, depression, hypothyroidism, CHF. Past Surgical History: Includes bilateral hip replacements, cholecystectomy, hysterectomy, right kne e surgery, heart catheterization. Social History: Denies tobacco or alcohol use. Lives at home. Allergies: TO CODEINE, MACROBID, PENICILLINS, ZOFRAN, AND LATEX. Home Medications: Per medication reconciliation. Physical Examination: General: No apparent distress. HEENT: Normocephalic, atraumatic. Neck: Supple. Cardiovascular: Brisk cap refill to all digits. Chest: Nonlabored breathing. Abdomen: Nondistended. Psychiatric: Responds to exam. Musculoskeletal: Right upper extremity functional range of motion without pain. No gross deformitie s. No obvious dislocations. Right lower extremity functional range of motion without pain. No sarah s deformities. No obvious dislocations. Left upper extremity tenderness to palpation over the proxi mal humerus and ecchymosis noted over the left arm in a dorsal left shoulder. Neurovascularly intact distally. Left lower extremity tenderness to palpation over the lateral aspect of the left hip; min imal pain with internal and external rotation of the left hip; neurovascular intact distally. Diagnostic Studies: X-rays of the left hip demonstrate a fracture of the greater trochanter of the l eft proximal femur. The hemiarthroplasty stem appears to be stable and fixed distally without signs of loosening or failure. X-rays of the left humerus demonstrate a displaced proximal humerus fractur e with acceptable alignment. Assessment And Plan: Veena is an 88-year-old female with a left proximal humerus fracture, left p eriprosthetic femur fracture. I discussed the patient at length her diagnosis as well as treatment p henny. After reviewing her imaging, no surgical intervention is indicated at this time. The patient m ay be weightbearing as tolerated of her left lower extremity with the aid of a walker to mobilize and pain control. The patient will be nonweightbearing of her left upper extremity given her multiple e xtremity injuries. Recommend physical therapy evaluation as well as possible inpatient rehabilitatio n placement. The patient may follow up in my clinic in 2 weeks for re-evaluation and x-rays of her l eft shoulder and left hip. CV/MODL Voice ID: [id number] Report ID: [id number]
[2023-03-03] MEDS ORDERED: BISACODYL E.C. 5 MG TAB PO PRN (10:56)
--- NOTE | 2023-03-03 14:11 | P.PN ---
Subjective Date of Service: 03/03/23 Chief Complaint: Left greater trochanteric avulsion fracture Patient has no new complaint except intermittent pain in the left arm. Physical Examination - Vital Signs Temperature: 97.5 F Blood Pressure: 141/67 Pulse: 67 Respirations: 16 Pulse Ox (%): 98 Assessment And Plan - Plan Physical Exam General: Alert, In no apparent distress, Oriented x3 Respiratory: Clear to auscultation bilaterally, Normal air movement Cardiovascular: No edema, Regular rate/rhythm, Normal S1 S2, No gallops, No rubs, No murmurs Gastrointestinal: Normal bowel sounds, Soft and benign. Musculoskeletal: Left hip pain with any movement. left upper extremity pain with movement. Integumentary: No rashes Neurological: Normal speech, Normal affect Plan Fall/Comminuted Left Greater Trochanter Femur Avulsion Fracture/Left Humerus Fracture Deconditioning Osteoporosis States that she suffered a mechanical ground-level fall on 02/21/2023. She reports that she was at [facility] and was told by their Orthopedic Surgery that her injuries are non-operative. - Radiology: - CT abdomen/pelvis = "subacute comminuted avulsion fracture greater trochanter left femur. Marked amount of stool throughout the colon." - Left femur x-ray = "comminuted avulsion fracture greater trochanter left femur. Left hip prosthesis is in good position without evidence of loosening. No dislocation. Osteoporosis." - Left humerus x-ray = "mildly comminuted and impacted proximal humeral metap hysis fracture." - Orthopedic Surgery consulted. Patient seen by Dr. Stover who recommend nonsurgical management - Continue PT. -Disposition to acute rehab. Chronic Atrial Fibrillation on Chronic Anticoagulation - Stable - Continue home metoprolol, apixaban Chronic Compensated Diastolic Congestive Heart Failure - Continue home metoprolol, furosemide Hypertension - Continue home metoprolol, amlodipine Left Renal Cysts Her creatinine level is within normal limits. Although previously diagnosed with CKDIII, I suspect that her GFR decline is age-related. - Monitor creatinine and urine output - Renally dose medications Hypothyroidism - Continue home levothyroxine Large Hiatal Hernia with Gastroesophageal Reflux Disease - Continue home pantoprazole
[2023-03-03] MEDS ORDERED: ACETAMINOPHEN 500 MG TAB PO PRN (20:21)
--- NOTE | 2023-03-03 21:42 | P.PN ---
Subjective Date of Service: 03/03/23 Chief Complaint: Left greater trochanter/proximal humerus fracture Subjective: Working w/ PT pain improving Physical Examination - Vital Signs Temperature: 97.9 F Blood Pressure: 138/64 Pulse: 79 Respirations: 16 Pulse Ox (%): 98 - Physical Exam General: Alert, In no apparent distress Musculoskeletal: Other (LUE: ttp over the proximal humuerus; NVI distally; LLE: mild pain with ROM left hip; NVI distally) Assessment And Plan - Plan Veena is an 88 yo female with a left periprosthetic femur fracture and left proximal humerus -continue nonop tx -PT for mobilization -NWB LUE; WBAT LLE -await IPR eval
[2023-03-04] MEDS: METOPROLOL XL 25 MG TAB PO SCH (05:47)
[2023-03-04] MEDS: LEVOTHYROXINE SOD 0.075 MG TAB PO SCH (05:47)
[2023-03-04] MEDS: AMLODIPINE 2.5 MG TAB PO SCH (08:25)
[2023-03-04] MEDS: FUROSEMIDE 40 MG TABLET PO SCH (08:25)
[2023-03-04] MEDS: PANTOPRAZOLE 40MG TABLET PO SCH (08:25)
[2023-03-04] MEDS: APIXABAN 2.5 MG TABLET PO SCH (08:26)
[2023-03-04 12:23] VITALS: BP 98/53; TEMP 97.4
--- NOTE | 2023-03-04 13:57 | P.DS ---
Admission Date: 03/01/23 Discharge Date: 03/04/23 Disposition: TRANSFER TO INPATIENT REHAB Discharge Condition: FAIR Reason for Admission: Left greater trochanter/proximal humerus fracture Brief History of Present Illness: 88-year-old female with history of atrial fibrillation on chronic anticoagulation, CAD, chronic diastolic congestive heart failure, hypertension, CKD 3, GERD presented to the emergency department with a chief complaint of arm, leg pain. She reported that she had a fall on Friday the and went to [facility] was subsequently discharged home. At that time she was noted to have a left humeral fracture as well as a suspected periprosthetic intertrochanteric fracture of the left femur. She has been at home where she lives with her significant other and has been unable to ambulate having significant pain, also became constipated and is concern for urinary tract infection. She was evaluated in the emergency department CT of the abdomen pelvis without contrast was performed which revealed subacute comminuted avulsion fracture greater trochanter left femur, marked amount of stool throughout the colon. ED physician spoke with orthopedic surgeon Dr. Yan and patient admitted for further management. Hospital Course: Patient admitted to the medical floor and the following medical problems addressed: Fall/Comminuted Left Greater Trochanter Femur Avulsion Fracture/Left Humerus Fracture Deconditioning Osteoporosis States that she suffered a mechanical ground-level fall on 02/21/2023. She reports that she was at [facility] and was told by their Orthopedic Surgery that her injuries are non-operative. - Radiology: - CT abdomen/pelvis = "subacute comminuted avulsion fracture greater trochanter left femur. Marked amount of stool throughout the colon." - Left femur x-ray = "comminuted avulsion fracture greater trochanter left femur. Left hip prosthesis is in good position without evidence of loosening. No dislocation. Osteoporosis." - Left humerus x-ray = "mildly comminuted and impacted proximal humeral metaphysis fracture." - Orthopedic Surgery consulted. Patient seen by Dr. Stover who recommend nonsurgical management -Patient received PT. -She has been accepted to inpatient rehab. Chronic Atrial Fibrillation on Chronic Anticoagulation - Stable - Continued home metoprolol, apixaban Chronic Compensated Diastolic Congestive Heart Failure - Continued home metoprolol, furosemide Hypertension -Blood pressure has been borderline low recently while on metoprolol and amlodipine. -Amlodipine held on discharge Left Renal Cysts Her creatinine level is within normal limits. Hypothyroidism - Continued home levothyroxine Large Hiatal Hernia with Gastroesophageal Reflux Disease - Continued home pantoprazole Vital Signs/Physical Exam: Temp Pulse Resp BP Pulse Ox 97.4 F 67 15 98/53 L 97 03/04/23 12:00 03/04/23 12:00 03/04/23 12:00 03/04/23 12:00 03/04/23 12:00 General: Alert, In no apparent distress HEENT: Mucous membr. moist/pink Neck: Supple, JVD not distended Respiratory: Clear to auscultation bilaterally, Normal air movement Cardiovascular: No edema, Regular rate/rhythm, Normal S1 S2 Gastrointestinal: Soft and benign, Non-distended Musculoskeletal: No swelling Integumentary: No cyanosis Neurological: Normal strength at 5/5 x4 extr Laboratory Data at Discharge: WBC 7.80 thou/uL (4.3-10.9) 03/03/23 02:40 Hgb 8.5 g/dL (12.0-15.0) L 03/03/23 02:40 Hct 25.5 % (36.0-45.0) L 03/03/23 02:40 Plt Count 434 thou/uL (152-406) H 03/03/23 02:40 Sodium 137 mEq/L (136-145) 03/03/23 02:40 Potassium 4.0 mEq/L (3.5-5.1) 03/03/23 02:40 BUN 28 mg/dL (7-18) H 03/03/23 02:40 Creatinine 0.79 mg/dL (0.55-1.02) 03/03/23 02:40 Glucose 115 mg/dL (74-106) H 03/03/23 02:40 Home Medications: Levothyroxine [Synthroid*] 1 tab PO DAILY #30 tab 07/12/16 Mirabegron [Myrbetriq] 50 mg PO DAILY 01/05/21 Fluoxetine HCl 1 tab PO BEDTIME 04/22/22 Cyanocobalamin [Vitamin B-12*] 1,000 mcg PO DAILY 01/09/23 Metoprolol Succinate [Toprol Xl*] 25 mg PO DAILY 01/09/23 Apixaban [Eliquis *] 2.5 mg PO BID 03/02/23 D-Mannose 1,000 mg PO BEDTIME 03/02/23 Folic Acid 1,000 mcg PO DAILY 03/02/23 Furosemide [Lasix] 40 mg PO DAILY 03/02/23 Guaifenesin [Mucinex] 600 mg PO BEDTIME 03/02/23 Iron 65 mg PO BID 03/02/23 Magnesium Citrate and Oxide [Magnesium] 250 mg PO BID 03/02/23 Omeprazole [Prilosec] 40 mg PO BID 03/02/23 bisacodyL [Dulcolax*] 10 mg PO DAILY PRN tab 03/04/23 Diet: AHA Activity: Fall precautions Time spent managing pt's care (in minutes): 33
== END 2023-03-04 14:58 | DRG 536 ==
LOC: ER 18:27 → ERHOLD 21:23 → 2ND 22:55
PROVIDERS: ADMIT Internal Medicine; ATTEND Internal Medicine
DX: S72.112A Displaced fracture of greater trochanter of left femur, initial encounter for closed fracture (principal); S42.202A Unspecified fracture of upper end of left humerus, initial encounter for closed fracture; N39.0 Urinary tract infection, site not specified; Z68.1 Body mass index [BMI] 19.9 or less, adult; I50.32 Chronic diastolic (congestive) heart failure; I13.0 Hypertensive heart and chronic kidney disease with heart failure and stage 1 through stage 4 chronic kidney disease, or unspecified chronic kidney disease; I48.20 Chronic atrial fibrillation, unspecified; M97.02XA Periprosthetic fracture around internal prosthetic left hip joint, initial encounter; N18.30 Chronic kidney disease, stage 3 unspecified; E03.9 Hypothyroidism, unspecified; K59.00 Constipation, unspecified; M19.90 Unspecified osteoarthritis, unspecified site; N28.1 Cyst of kidney, acquired; M81.0 Age-related osteoporosis without current pathological fracture; K44.9 Diaphragmatic hernia without obstruction or gangrene; K21.9 Gastro-esophageal reflux disease without esophagitis; I25.10 Atherosclerotic heart disease of native coronary artery without angina pectoris; I25.2 Old myocardial infarction; R62.7 Adult failure to thrive; Z88.5 Allergy status to narcotic agent; Z88.0 Allergy status to penicillin; Z88.8 Allergy status to other drugs, medicaments and biological substances; Z88.1 Allergy status to other antibiotic agents; Z90.49 Acquired absence of other specified parts of digestive tract; Z79.01 Long term (current) use of anticoagulants; Z91.040 Latex allergy status; Z79.890 Hormone replacement therapy; Z96.643 Presence of artificial hip joint, bilateral; Z79.899 Other long term (current) drug therapy; Z90.710 Acquired absence of both cervix and uterus; W18.30XA Fall on same level, unspecified, initial encounter; Y93.9 Activity, unspecified; Y92.019 Unspecified place in single-family (private) house as the place of occurrence of the external cause
CPT/HCPCS: 36415; 74176; 80048; 81001; 85025; 87077; 87086; 87088; 87186; 97110; 97161; 97530; 99285

== ENCOUNTER 2023-03-04 13:42 | Inpatient (IN) | payer OTHER ==
[2023-03-04 15:25] VITALS: BMI 19.0
--- OUTSIDE RECORDS SUMMARY | 2023-03-04 15:42 | XMS REPORT | Continuity of Care Document ---
:1935 Author Organization [facility] t Address [address] [place] [address] [address] [place] [address] Care Team Providers Name Role Phone SARAH PEREIRA Primary Care Physician Unavailable Gurwinder Haro Attending Clinician Unavailable RIKI REYEZ Attending Clinician Unavailable ETTA WATTS.HQuincy Attending Clinician Unavailable CUONG ARTHUR Attending Clinician Unavailable CUONG ARTHUR Attending Clinician Unavailable YUSUF VILLASEÑOR Attending Clinician Unavailable STEPHANIE BLACK Attending Clinician Unavailable Etta Watts MD K.H[facility]in[facility] Attending Clinician JEFE MAE Attending Clinician Unavailable Jefe Mae MD Attending Clinician Doctor Unassigned, [facility] Attending Clinician Unavailable Stephanie Mahmood Attending Clinician Alwash MD, Robbi Salam Attending Clinician 2, [facility] Attending Clinician [...] Clinician Unavailable Neida Jones Attending Clinician [phone] Iván Cowan MD Attending Clinician Meaghan Antony [...] Clinician Unavailable RIKI REYEZ Admitting Clinician Unavailable JEFE MAE Admitting Clinician Unavailable Ruthie Hester DO Admitting Clinician RUTHIE HESTER Admitting Clinician Unavailable YUSUF VILLASEÑOR Admitting Clinician Unavailable Riki Reyez MD Admitting Clinician Pilo Greene Admitting Clinician Deirdre Sanon Jr Admitting Clinician Payers Payer Name Policy Type Policy Number Effective Date Expiration Date S andrew MEDICARE PART A \\T\\ [id number] 1999 B 00:00:00 [employer] [id number] 2016 00:00:00 [facility] [id number] 2020 BENEFITS 00:00:00 Problems Condition Condition Condition [...] 00:00: [place] involving involving 00 Medi andrez in[place] inup[place] 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 [...] 00:00: [place] involving involving 00 Medi andrez inupiat inupiat 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 Acute Acute Disease Active Univers hypoxemic hypoxemic 3-16 [place] failure 00 [facility] andrez Branch CCL / CCL / Diagnosis Active 2018-082019-06-02 [facility] oria RENAL RENAL 0- 05:41:00 l STENT STENT 00:00: Kevin Active 00 05/25/2019 [facility] NEW PT NEW PT Diagnosis Active 2019-05-05 Me moria CONSULT - CONSULT - 04-23 14:43:00 l 2ND 2ND 00:00: Kevin OPINION OPINION 00 Active 04/23/2019 [facility] ATHEROSCLE Diagnosis Active 2016-11-19 Memoria ROSIS OF ATHEROSCLE 2- 13:05:00 l AKHIOK ROSIS OF 00:00: Kevin 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 Active 10/17/2016 [facility] CCL/LEFT CCL/LEFT Diagnosis Active 2016-10-21 Memoria LEG LEG 2- 15:24:00 l 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 PLASTIC/DX: MODEL MAKER PLASTIC/DX: 00:00: Kevin I70.221 I70.221 00 Active 10/17/2016 [facility] DIZZINESS DIZZINESS Diagnosis Active 2016-05-01 Memoria Active 04-21 22:08:00 l 04/21/2016 00:00: Galen martínez [address] 593.2 - 593.2 - Diagnosis Active 2016-03-31 Memoria "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," KIDNEY," 00:01: Gal[place] martínez Active 00 03/03/2015 MARIE Martines No known No known Disease Unive rs active active ity of problems problems [facility] Gastroesop Gastroeso Problem Resolve 2020-09-01 Memoria hageal phageal d 22:24:26 l reflux reflux Kevin disease disease (disorder) (disorder) Resolved Problem 09/01/2020 Medical Group,[facility], MARIE Carlson History of History Problem Resolve 2020-09-01 Memoria - surgery of - d 22:24:26 l (context-d surgery Mela nn ependent (context-d category) ependent category) Resolved Problem 09/01/2020 Medical Group,[facility], MARIE Carlson History of History Problem Resolve 2020-09-01 Memoria - vertigo of - d 22:24:26 l (context-d vertigo Mela nn ependent (context-d category) ependent category) Resolved Problem 09/01/2020 Medical Group,[facility], MARIE Carlson Hypertensi Hypertens Problem Resolve 2020-09-01 Memoria ve nathan d 22:24:26 l disorder, disorder, Herm angela systemic systemic arterial arterial (disorder) (disorder) Resolved Problem 09/01/2020 Medical Group,[facility], MARIE Carlson ENCNTR FOR ENCNTR Diagnosis Active 2019-05-05 Memoria GENERAL FOR 14:43:00 l ADULT GENERAL Kevin MEDICAL ADULT EXAM W/ MEDICAL EXAM W/ Active [facility] ILLNESS, ILLNESS, Diagnosis Active 2016-05-01 Memoria UNSPECIFIE UNSPECIFIE 22:08:00 l D D Active Kevin [facility] Myocardial Myocardia Problem Resolve 2020-09-01 2020-09-01 Memoria infarction l d 08-25 22:24:26 22:24:26 l (disorder) infarction 00:00: He rmann (disorder) 00 Resolved 08/25/2002 Problem 09/01/2020 Medical Group,[facility], MARIE Robyn Allergies, Adverse Reactions, Alerts Allergy Allergy Status Severity Reaction(s) Onset Inactive Treating Comm ents Source Name Type Date Date Clinician Penicill DA Active U HIVES [facility] ins 09-14 [place] 00:00: [facility] 00 are [facility] Sulfa DA Active U RASH [facility] (Sulfona 09-14 [place] mide 00:00: [facility] Antibiot 00 are ics) [facility] codeine DA Active U NAUSEA [facility] 09-14 [place] 00:00: [facility] 00 are [facility] CODEINE DRUG Active Unknown-Cmnt Uni vers INGREDI 2- ity of 00:00: [place] 00 Medical Branch Codeine Propensi Active Unknown - [...] l Kevin niacin niacin Active Memoria l Williams Plavix Plavix Active Memoria l [facility] Celebrex Celebrex Active Memori a l Kevin Keflex Keflex Active Memoria l Williams penicill penicill Active Memori a ins ins l Williams sulfa sulfa Active Memoria drugs drugs l Kevin Social History Social Habit Start Date Stop Date Quantity Comments Source History of tobacco Passive smoker Un iversity of use [facility] Gender identity [facility] Sexual orientation [facility] Exposure to 2023-01-11 2023-01-21 Not sure University of SARS-CoV-2 (event) 00:00:00 09:46:00 [facility] Tobacco use and 2022-11-07 2022-11-07 Former smokeless Uni versity of exposure 00:00:00 00:00:00 tobacco user [facility] Tobacco Comment 2022-03-13 2022-03-13 quit 30 yrs ago Univ ersity of 00:00:00 00:00:00 [facility] Sex Assigned At [birth year] [facility] Smoking Status Start Date Stop Date Source Tobacco smoking consumption Meth [facility] unknown Social History 2020-08-23 14:59:17 2020-08-23 14:59:17 [facility] Medications Ordered Filled Start Stop Current Ordering Indication Dosage Frequency Signature Comments Components Source Medication Medication Date Date Medication? Clinician (SIG) Name Name acetaminoph 2022- No 1000mg 1,000 mg, Univers en 02-22 Oral, ity of (TYLENOL) 01:00: 01:31 [place]CE[place] dose, On Medical 1,000 mg Fri [place] 02/21/23 at 2000, BRIANA aspirin 81 2022- No 81mg Take 1 Univ ers mg EC 5-30 05-30 tablet by ity of tablet 10:32: 00:00 mouth in [place] 26 :00 the Medical morning. Branch aspirin 81 2022-0 2022- No 81mg Take 1 Univ ers mg EC 5-30 05-30 tablet by ity of tablet 10:32: 00:00 mouth in [place] 26 :00 the Medical morning. Branch amLODIPine 2022-0 Yes 2.5mg Take 1 Univ ers 2.5 mg 5-30 tablet by ity of tablet 10:31: mouth in [place] [address] the Medical morning Branch and 1 tablet in the evening. amLODIPine 2022-0 Yes 2.5mg Take 1 Univ ers 2.5 mg 5-30 tablet by ity of tablet 10:31: mouth in [place] [address] the Medical morning Branch and 1 tablet in the evening. amLODIPine 2022-0 Yes 2.5mg Take 1 Univ ers 2.5 mg 5-30 tablet by ity of tablet 10:31: mouth in [place] [address] the Medical morning Branch and 1 tablet in the evening. amLODIPine 2023-0 Yes 2.5mg Take 1 Univ ers 2.5 mg 5-30 tablet by ity of tablet 10:31: mouth in [place] [address] the Medical morning Branch and 1 tablet in the evening. amLODIPine 2023-0 Yes 2.5mg Take 1 Univ ers 2.5 mg 5-30 tablet by ity of tablet 10:31: mouth in [place] [address] the Medical morning Branch and 1 tablet in the evening. amLODIPine 2023-0 Yes 2.5mg Take 1 Univ ers 2.5 mg 5-30 tablet by ity of tablet 10:31: mouth in [place] [address] the Medical morning Branch and 1 tablet in the evening. amLODIPine 2023-0 Yes 2.5mg Take 1 Univ ers 2.5 mg 5-30 tablet by ity of tablet 10:31: mouth in [place] [address] the Medical morning Branch and 1 tablet in the evening. amLODIPine 2023-0 Yes 2.5mg Take 1 Univ ers 2.5 mg 5-30 tablet by ity of tablet 10:31: mouth in [place] [address] the Medical morning [place] and 1 tablet in the evening. amLODIPine 2023-0 Yes 2.5mg Take 1 Univ ers 2.5 mg 5-30 tablet by ity of tablet 10:31: mouth in [place] [address] the [facility] morning [place] and 1 tablet in the evening. metoprolol 2023-0 Yes [id number] 25mg Take 1 Univers succinate 5-16 tablet by ity o f XL 25 mg 24 00:00: [place] tablet 00 the Medical morning. Branch furosemide 2023-0 Yes [id number] 40mg Take 1 Univers 40 mg 5-16 tablet by ity of tablet 00:00: mouth in [place] 00 the Medical morning. Branch metoprolol 2023-0 Yes [id number] 25mg Take 1 Univers succinate 5-16 tablet by ity o f XL 25 mg 24 00:00: [place] 00 the Medical morning. Branch furosemide 2023-0 Yes [id number] 40mg Take 1 Univers 40 mg 5-16 tablet by ity of tablet 00:00: mouth in [place] 00 the Medical morning. Branch metoprolol 2023-0 Yes [id number] 25mg Take 1 Univers succinate 5-16 tablet by ity o f XL 25 mg 24 00:00: [place] tablet 00 the Medical morning. Branch furosemide 3-0 Yes [id number] 40mg Take 1 Univers 40 mg 5-16 tablet by ity of tablet 00:00: mouth in [place] 00 the Medical morning. Branch metoprolol 3-0 Yes [id number] 25mg Take 1 Univers succinate 5-16 tablet by ity o f XL 25 mg 24 00:00: [place] tablet 00 the Medical morning. Branch furosemide 3-0 Yes [id number] 40mg Take 1 Univers 40 mg 5-16 tablet by ity of tablet 00:00: mouth in [place] 00 the Medical morning. Branch metoprolol 3-0 Yes [id number] 25mg Take 1 Univers succinate 5-16 tablet by ity o f XL 25 mg 24 00:00: [place] tablet 00 the Medical morning. Branch furosemide 3-0 Yes [id number] 40mg Take 1 Univers 40 mg 5-16 tablet by ity of tablet 00:00: mouth in [place] 00 the Medical morning. Branch metoprolol 3-0 Yes [id number] 25mg Take 1 Univers succinate 5-16 tablet by ity o f XL 25 mg 24 00:00: [place] tablet 00 the Medical morning. Branch furosemide 3-0 Yes [id number] 40mg Take 1 Univers 40 mg 5-16 tablet by ity of tablet 00:00: mouth in [place] 00 the Medical morning. Branch metoprolol 3-0 Yes [id number] 25mg Take 1 Univers succinate 5-16 tablet by ity o f XL 25 mg 24 00:00: [place] tablet 00 the Medical morning. Branch furosemide 3-0 Yes [id number] 40mg Take 1 Univers 40 mg 5-16 tablet by ity of tablet 00:00: mouth in [place] 00 the Medical morning. Branch metoprolol 2023-0 Yes [id number] 25mg Take 1 Univers succinate 5-16 tablet by ity o f XL 25 mg 24 00:00: [place] tablet 00 the Medical morning. Branch furosemide 3-0 Yes [id number] 40mg Take 1 Univers 40 mg 5-16 tablet by ity of tablet 00:00: mouth in [place] 00 the Medical morning. Branch fosfomycin 2022-0 2022- Yes [id number] 3g Take 3 g Univers 3 gram 5-04 05-05 by mouth ity of packet 00:00: 04:59 once now [place] 00 :00 for 1 Medical dose. Branch fosfomycin 2022-0 2022- Yes [id number] 3g Take 3 g Univers 3 gram 5-04 05-05 by mouth ity of packet 00:00: 04:59 once now [place] 00 :00 for 1 Medical dose. Branch metoprolol 2022-0 Yes [id number] 25mg Take 1 Univers succinate 4-10 tablet by ity o f XL 25 mg 24 00:00: [place] hr tablet 00 the Medical morning. Branch furosemide 2022-0 Yes [id number] 40mg Take 1 Univers 40 mg 4-10 tablet by ity of tablet 00:00: mouth in [place] 00 the Medical morning. Branch metoprolol 2022-0 Yes [id number] 25mg Take 1 Univers succinate 4-10 tablet by ity o f XL 25 mg 24 00:00: [place] hr tablet 00 the Medical morning. Branch furosemide 2022-0 Yes [id number] 40mg Take 1 Univers 40 mg 4-10 tablet by ity of tablet 00:00: mouth in [place] 00 the Medical morning. Branch metoprolol 2022-0 Yes [id number] 25mg Take 1 Univers succinate 4-10 tablet by ity o f XL 25 mg 24 00:00: [place] tablet 00 the Medical morning. Branch furosemide 2022-0 Yes [id number] 40mg Take 1 Univers 40 mg 4-10 tablet by ity of tablet 00:00: mouth in [place] 00 the Medical morning. Branch metoprolol 2022-0 2022- No [id number] 25mg Take 1 Univers succinate 4-10 05-16 tablet by ity of XL 25 mg 24 00:00: 00:00 [place] hr tablet 00 :00 the Medical morning. Branch furosemide 2022-0 2022- No [id number] 40mg Take 1 Univers 40 mg 4-10 05-16 tablet by ity of tablet 00:00: 00:00 mouth in [place] 00 :00 the Medical morning. Branch amLODIPine 2022-0 Yes 2.5mg Take 1 Univ ers 2.5 mg 4-07 tablet by ity of tablet 10:39: mouth in [place] [address] the Medical morning Branch and 1 tablet in the evening. amLODIPine 2023-0 Yes 2.5mg Take 1 Univ ers 2.5 mg 4-07 tablet by ity of tablet 10:39: mouth in [place] [address] the Medical morning Branch and 1 tablet in the evening. amLODIPine 2023-0 Yes 2.5mg Take 1 Univ ers 2.5 mg 4-07 tablet by ity of tablet 10:39: mouth in [place] [address] the Medical morning Branch and 1 tablet in the evening. amLODIPine 2023-0 Yes 2.5mg Take 1 Univ ers 2.5 mg 4-07 tablet by ity of tablet 10:39: mouth in [place] [address] the Medical morning Branch and 1 tablet in the evening. amLODIPine 2023-0 Yes 2.5mg Take 1 Univ ers 2.5 mg 4-07 tablet by ity of tablet 10:39: mouth in [place] [address] the Medical morning Branch and 1 tablet in the evening. amLODIPine 2023-0 Yes 2.5mg Take 1 Univ ers 2.5 mg 4-07 tablet by ity of tablet 10:39: mouth in [place] [address] the Medical morning [place] and 1 tablet in the evening. amLODIPine 2023-0 Yes 2.5mg Take 1 Univ ers 2.5 mg 4-07 tablet by ity of tablet 10:39: mouth in [place] [address] [facility] and 1 tablet in the evening. spironolact 2023-0 3- No Take by Un amalia one 25 mg/5 4-07 04-07 mouth ity of mL oral 10:38: 00:00 daily. [place] suspension 39 :00 [facility] Branch spironolact 2023-0 3- No Take by Un amalia one 25 mg/5 4-07 04-07 mouth ity of mL oral 10:38: 00:00 daily. [place] suspension 39 :00 Medical Branch aspirin 81 2023-0 Yes 81mg Take 1 Unive rs mg EC 4-07 tablet by ity of tablet 10:38: mouth in [place] [address] the Medical morning. Branch aspirin 81 2023-0 Yes 81mg Take 1 Unive rs mg EC 4-07 tablet by ity of tablet 10:38: mouth in [place] [address] the Medical morning. Branch aspirin 81 2023-0 Yes 81mg Take 1 Unive rs mg EC 4-07 tablet by ity of tablet 10:38: mouth in [place] [address] the Medical morning. Branch aspirin 81 2023-0 Yes 81mg Take 1 Unive rs mg EC 4-07 tablet by ity of tablet 10:38: mouth in [place] [address] the Medical morning. Branch aspirin 81 2023-0 Yes 81mg Take 1 Unive rs mg EC 4-07 tablet by ity of tablet 10:38: mouth in [place] [address] the Medical morning. Branch aspirin 81 2023-0 Yes 81mg Take 1 Unive rs mg EC 4-07 tablet by ity of tablet 10:38: mouth in [place] [address] the Medical morning. Branch aspirin 81 2023-0 Yes 81mg Take 1 Unive rs mg EC 4-07 tablet by ity of tablet 10:38: mouth in [place] [address] the Medical morning. Branch Magnesium 2023-0 Yes [id number] 500mg Take 500 Univers 250 mg Tab 4-07 mg by ity of 10:15: mouth. [address] Magnesium 2023-0 Yes [id number] 500mg Take 500 Univers 250 mg Tab 4-07 mg by ity of 10:15: mouth. [address] Magnesium 2023-0 Yes [id number] 500mg Take 500 Univers 250 mg Tab 4-07 mg by ity of 10:15: mouth. [address] Magnesium 2023-0 Yes [id number] 500mg Take 500 Univers 250 mg Tab 4-07 mg by ity of 10:15: mouth. [address] Magnesium 2023-0 Yes [id number] 500mg Take 500 Univers 250 mg Tab 4-07 mg by ity of 10:15: mouth. [address] Magnesium 2023-0 Yes [id number] 500mg Take 500 Univers 250 mg Tab 4-07 mg by ity of 10:15: mouth. [address] Magnesium 2023-0 Yes [id number] 500mg Take 500 Univers 250 mg Tab 4-07 mg by ity of 10:15: mouth. [address] Magnesium 2023-0 Yes [id number] 500mg Take 500 Univers 250 mg Tab 4-07 mg by ity of 10:15: mouth. [address] Magnesium 2023-0 Yes [id number] 500mg Take 500 Univers 250 mg Tab 4-07 mg by ity of 10:15: mouth. [address] Magnesium 2023-0 Yes [id number] 500mg Take 500 Univers 250 mg Tab 4-07 mg by ity of 10:15: mouth. [address] Magnesium 2022-0 Yes [id number] 500mg Take 500 Univers 250 mg Tab 4-07 mg by ity of 10:15: mouth. [address] Magnesium 2022-0 Yes [id number] 500mg Take 500 Univers 250 mg Tab 4-07 mg by ity of 10:15: mouth. [address] Magnesium 2022-0 Yes [id number] 500mg Take 500 Univers 250 mg Tab 4-07 mg by ity of 10:15: mouth. [address] Magnesium 2022-0 Yes [id number] 500mg Take 500 Univers 250 mg Tab 4-07 mg by ity of 10:15: mouth. [address] Magnesium 2022-0 Yes [id number] 500mg Take 500 Univers 250 mg Tab 4-07 mg by ity of 10:15: mouth. [address] Magnesium 2022-0 Yes [id number] 500mg Take 500 Univers 250 mg Tab 4-07 mg by ity of 10:15: mouth. [address] iron,carb/f Yes 1{tbl} Take 1 Un amalia olic ac/vit 4-07 tablet by ity of Bcomp,C 10:15: mouth 2 [place] (IRON-FOLIC 21 (two) Medical 500 ORAL) times Branch daily. iron,carb/f Yes 1{tbl} Take 1 Un amalia olic ac/vit 4-07 tablet by ity of Bcomp,C 10:15: mouth 2 [place] (IRON-FOLIC 21 (two) Medical 500 ORAL) times Branch daily. iron,carb/f 0 Yes 1{tbl} Take 1 Un amalia olic ac/vit 4-07 tablet by ity of Bcomp,C 10:15: mouth 2 [place] (IRON-FOLIC 21 (two) Medical 500 ORAL) times Branch daily. iron,carb/f 2022-0 Yes 1{tbl} Take 1 Un amalia olic ac/vit 4-07 tablet by ity of Bcomp,C 10:15: mouth 2 [place] (IRON-FOLIC 21 (two) Medical 500 ORAL) times Branch daily. iron,carb/f 2023-0 Yes 1{tbl} Take 1 Un amalia olic [...] ORAL) times Branch daily. denosumab 2022- No [id number] 60mg 60 mg, U nivers (PROLIA) 11-21 Subcutaneo ity of injection 14:45: 14:39 [place], [place]CE, [place] Sy[place] 60 mg 00 :00 1 dose, On [facility] Branch 11/21/22 at 0945, Routine
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
interior design faculty member approving Restricted medication : YUSUF VILLASEÑOR metoprolol 2022- No [id number] 25mg Take 1 Univers succinate 3-13 12- tablet by ity of XL 25 mg 24 00:00: 04:59 mouth in [place] hr tablet 00 :00 the Medical morning Branch for 30 days. metoprolol 2022- No [id number] 25mg Take 1 Univers succinate 3-21 - tablet by ity of XL 25 mg 24 00:00: 04:59 mouth in [place] hr tablet 00 :[address] [facility] for 30 days. metoprolol 2022- No [id number] 25mg Take 1 Univers succinate 3-21 -21 tablet by ity of XL 25 mg 24 00:00: 04:59 mouth in [place] hr tablet 00 :[address] [facility] for 30 days. metoprolol 2022- No [id number] 25mg Take 1 Univers succinate 3-21 -21 tablet by ity of XL 25 mg 24 00:00: 04:59 mouth in [place] hr tablet 00 :[address] [facility] for 30 days. metoprolol 2022- No [id number] 25mg Take 1 Univers succinate 3-21 -21 tablet by ity of XL 25 mg 24 00:00: 04:59 mouth in [place] hr tablet 00 :[address] [facility] for 30 days. metoprolol 2022- No [id number] 25mg Take 1 Univers succinate 3-21 -21 tablet by ity of XL 25 mg 24 00:00: 04:59 mouth in [place] hr tablet 00 :[address] [facility] for 30 days. metoprolol 2022- No [id number] 25mg Take 1 Univers succinate 3-21 -21 tablet by ity of XL 25 mg 24 00:00: 04:59 mouth in [place] hr tablet 00 :[address] [facility] for 30 days. metoprolol 2022- No [id number] 25mg Take 1 Univers succinate 3-21 -10 tablet by ity of XL 25 mg 24 00:00: 00:00 mouth in [place] hr tablet 00 :[address] [facility] for 30 days. Magnesium Yes [id number] 500mg Take 500 Univers 250 mg Tab 3-20 mg by ity of 13:23: mouth. [address] aspirin 81 2022-0 Yes 81mg Take 81 mg U nivers mg EC 3-20 by mouth ity of tablet 13:23: daily. [address] mirabegron Yes Take by Univ ers (MYRBETRIQ) 3-20 mouth ity of 50 mg 13:23: daily. [place] tablet 59 Medical Branch iron,carb/f 0 Yes 1{tbl} Take 1 Un amalia olic ac/vit 3-20 tablet by ity of Bcomp,C 13:23: mouth 2 [place] (IRON-FOLIC 59 (two) Medical 500 ORAL) times Branch daily. spironolact 0 Yes Take by Uni vers one 25 mg/5 3-20 mouth ity of mL oral 13:23: daily. [place] suspension 59 Medical Branch levothyroxi 0 Yes 75mg Take 75 mg Univers ne sodium 3-20 by mouth. ity o f (LEVOTHROID 13:23: [place] ORAL) 59 Medical Branch Magnesium 0 Yes [id number] 500mg Take 500 Univers 250 mg Tab 3-20 mg by ity of 13:23: mouth. [place] [address] Medical Branch aspirin 81 0 Yes 81mg Take 81 mg U nivers mg EC 3-20 by mouth ity of tablet 13:23: daily. [place] [address] Medical Branch mirabegron 0 Yes Take by [facility] ers (MYRBETRIQ) 3-20 mouth ity of 50 mg 13:23: daily. [place] tablet 59 Medical Branch iron,carb/f Yes 1{tbl} Take 1 Un amalia olic ac/vit 3-20 tablet by ity of Bcomp,C 13:23: mouth 2 [place] (IRON-FOLIC 59 (two) Medical 500 ORAL) times Branch daily. spironolact 0 Yes Take by Uni vers one 25 mg/5 3-20 mouth ity of mL oral 13:23: daily. [place] suspension 59 Medical Branch levothyroxi 0 Yes 75mg Take 75 mg Univers ne sodium 3-20 by mouth. ity o f (LEVOTHROID 13:23: [place] ORAL) 59 Medical Branch Magnesium 2022-0 Yes [id number] 500mg Take 500 Univers 250 mg Tab 3-20 mg by ity of 13:23: mouth. [place] [address] Medical Branch aspirin 81 0 Yes 81mg Take 81 mg U nivers mg EC 3-20 by mouth ity of tablet 13:23: daily. [place] [address] Medical Branch mirabegron 0 Yes Take by [facility] ers (MYRBETRIQ) 3-20 mouth ity of 50 mg 13:23: daily. [place] tablet 59 Medical Branch iron,carb/f 0 Yes 1{tbl} Take 1 Un amalia olic ac/vit 3-20 tablet by ity of Bcomp,C 13:23: mouth 2 [place] (IRON-FOLIC 59 (two) Medical 500 ORAL) times Branch daily. spironolact 0 Yes Take by Uni vers one 25 mg/5 3-20 mouth ity of mL oral 13:23: daily. [place] suspension 59 Medical Branch levothyroxi 0 Yes 75mg Take 75 mg Univers ne sodium 3-20 by mouth. ity o f (LEVOTHROID 13:23: [place] ORAL) 59 Medical Branch Magnesium 0 Yes [id number] 500mg Take 500 Univers 250 mg Tab 3-20 mg by ity of 13:23: mouth. [place] [address] Medical Branch aspirin 81 0 Yes 81mg Take 81 mg U nivers mg EC 3-20 by mouth ity of tablet 13:23: daily. [place] [address] Medical Branch mirabegron 0 Yes Take by [facility] ers (MYRBETRIQ) 3-20 mouth ity of 50 mg 13:23: daily. [place] tablet 59 Medical Branch iron,carb/f Yes 1{tbl} Take 1 Un amalia olic ac/vit 3-20 tablet by ity of Bcomp,C 13:23: mouth 2 [place] (IRON-FOLIC 59 (two) Medical 500 ORAL) times Branch daily. spironolact 0 Yes Take by Uni vers one 25 mg/5 3-20 mouth ity of mL oral 13:23: daily. [place] suspension 59 Medical Branch levothyroxi 0 Yes 75mg Take 75 mg Univers ne sodium 3-20 by mouth. ity o f (LEVOTHROID 13:23: [place] ORAL) 59 Medical Branch Magnesium 2022-0 Yes [id number] 500mg Take 500 Univers 250 mg Tab 3-20 mg by ity of 13:23: mouth. [place] [address] Medical Branch aspirin 81 0 Yes 81mg Take 81 mg U nivers mg EC 3-20 by mouth ity of tablet 13:23: daily. [place] [address] Medical Branch mirabegron 0 Yes Take by [facility] ers (MYRBETRIQ) 3-20 mouth ity of 50 [...] 59 Medical Branch mirabegron Yes Take by [facility] ers (MYRBETRIQ) 3-20 mouth ity of 50 mg 13:23: daily. [place] tablet 59 Medical Branch levothyroxi Yes 75mg Take 75 mg Univers ne sodium 3-20 by mouth. ity o f (LEVOTHROID 13:23: [place] ORAL) 59 Medical Branch mirabegron Yes Take by [facility] ers (MYRBETRIQ) 3-20 mouth ity of 50 mg 13:23: daily. [place] tablet 59 Medical Branch levothyroxi Yes 75mg Take 75 mg Univers ne sodium 3-20 by mouth. ity o f (LEVOTHROID 13:23: [place] ORAL) 59 Medical Branch mirabegron Yes Take by [facility] ers (MYRBETRIQ) 3-20 mouth ity of 50 mg 13:23: daily. [place] tablet 59 Medical Branch levothyroxi Yes 75mg Take 75 mg Univers ne sodium 3-20 by mouth. ity o f (LEVOTHROID 13:23: [place] ORAL) 59 Medical Branch mirabegron Yes Take by [facility] ers (MYRBETRIQ) 3-20 mouth ity of 50 mg 13:23: daily. [place] tablet 59 Medical Branch levothyroxi Yes 75mg Take 75 mg Univers ne sodium 3-20 by mouth. ity o f (LEVOTHROID 13:23: [place] ORAL) 59 Medical Branch mirabegron Yes Take by [facility] ers (MYRBETRIQ) 3-20 mouth ity of 50 mg 13:23: daily. [place] tablet 59 Medical Branch levothyroxi Yes 75mg Take 75 mg Univers ne sodium 3-20 by mouth. ity o f (LEVOTHROID 13:23: [place] ORAL) 59 Medical Branch mirabegron Yes Take by [facility] ers (MYRBETRIQ) 3-20 mouth ity of 50 mg 13:23: daily. [place] tablet 59 Medical Branch levothyroxi Yes 75mg Take 75 mg Univers ne sodium 3-20 by mouth. ity o f (LEVOTHROID 13:23: [place] ORAL) 59 Medical Branch mirabegron Yes Take by [facility] ers (MYRBETRIQ) 3-20 mouth ity of 50 mg 13:23: daily. [place] tablet 59 Medical Branch levothyroxi Yes 75mg Take 75 mg Univers ne sodium 3-20 by mouth. ity o f (LEVOTHROID 13:23: [place] ORAL) 59 Medical Branch mirabegron Yes Take by [facility] ers (MYRBETRIQ) 3-20 mouth ity of 50 mg 13:23: daily. [place] tablet 59 Medical Branch levothyroxi Yes 75mg Take 75 mg Univers ne sodium 3-20 by mouth. ity o f (LEVOTHROID 13:23: [place] ORAL) 59 Medical Branch mirabegron Yes Take by [facility] ers (MYRBETRIQ) 3-20 mouth ity of 50 mg 13:23: daily. [place] tablet 59 Medical Branch levothyroxi Yes 75mg Take 75 mg Univers ne sodium 3-20 by mouth. ity o f (LEVOTHROID 13:23: [place] ORAL) 59 Medical Branch mirabegron Yes Take by [facility] ers (MYRBETRIQ) 3-20 mouth ity of 50 mg 13:23: daily. [place] tablet 59 Medical Branch levothyroxi 0 Yes 75mg Take 75 mg Univers ne sodium 3-20 by mouth. ity o f (LEVOTHROID 13:23: [place] ORAL) 59 Medical Branch mirabegron Yes Take by [facility] ers (MYRBETRIQ) 3-20 mouth ity of 50 mg 13:23: daily. [place] tablet 59 Medical Branch levothyroxi 0 Yes 75mg Take 75 mg Univers ne sodium 3-20 by mouth. ity o f (LEVOTHROID 13:23: [place] ORAL) 59 Medical Branch mirabegron Yes Take by [facility] ers (MYRBETRIQ) 3-20 mouth ity of 50 mg 13:23: daily. [place] tablet 59 Medical Branch levothyroxi Yes 75mg Take 75 mg Univers ne sodium 3-20 by mouth. ity o f (LEVOTHROID 13:23: [place] ORAL) 59 Medical Branch mirabegron Yes Take by [facility] ers (MYRBETRIQ) 3-20 mouth ity of 50 mg 13:23: daily. [place] tablet 59 Medical Branch levothyroxi Yes 75mg Take 75 mg Univers ne sodium 3-20 by mouth. ity o f (LEVOTHROID 13:23: [place] ORAL) 59 Medical Branch mirabegron Yes Take by [facility] ers (MYRBETRIQ) 3-20 mouth ity of 50 mg 13:23: daily. [place] tablet 59 Medical Branch levothyroxi Yes 75mg Take 75 mg Univers ne sodium 3-20 by mouth. ity o f (LEVOTHROID 13:23: [place] ORAL) 59 Medical Branch mirabegron Yes Take by [facility] ers (MYRBETRIQ) 3-20 mouth ity of 50 mg 13:23: daily. [place] tablet 59 Medical Branch levothyroxi Yes 75mg Take 75 mg Univers ne sodium 3-20 by mouth. ity o f (LEVOTHROID 13:23: [place] ORAL) 59 Medical Branch mirabegron Yes Take by [facility] ers (MYRBETRIQ) 3-20 mouth ity of 50 mg 13:23: daily. [place] tablet 59 Medical Branch levothyroxi Yes 75mg Take 75 mg Univers ne sodium 3-20 by mouth. ity o f (LEVOTHROID 13:23: [place] ORAL) 59 Medical Branch folic acid 2022- No [id number] Take by [facility] (FA-8) 0.8 11-1120 mouth. ity of mg Cap 12:29: 00:00 [place] 50 :00 Medical Branch CALCIUM 2022- No Take by [facility] CITRATE 3-20 03-20 mouth. ity of ORAL 12:29: 00:00 [place] 50 :00 Medical Branch NIFEdipine 2022- No Nifedical U nivers XL 30 mg 24 3-20 03-20 XL 30 mg ity of hr tablet 12:29: 00:00 tablet,ext [place] 50 :00 ended Medical release Branch SERTraline 2022- No 12.5mg Take 12.5 Univers 25 mg 3-20 03-20 mg by ity of tablet 12:29: 00:00 mouth. [place] 50 :00 [facility] Branch ramipriL 10 2022- No 10mg Take 10 mg Univers mg capsule 3-20 03-20 by mouth ity of 12:29: 00:00 daily. [place] [address] :00 [facility] Branch Cranberry 2022- No 500mg Take 500 [place] 500 mg Cap 3-20 03-20 mg by ity of 12:29: 00:00 mouth 2 [place] 50 :00 (two) Medical times Branch daily. d-mannose 2022- No Take by Univ ers 500 mg Cap 3-20 03-20 mouth. ity of 12:29: 00:00 [place] 50 :00 [facility] Branch folic acid 2022- No [id number] Take by Univers (FA-8) 0.8 3-20 03-20 mouth. ity of mg Cap 12:29: 00:00 [place] 50 :00 [facility] Branch CALCIUM 2022- No Take by Univer s CITRATE 3-20 03-20 mouth. ity of ORAL 12:29: 00:00 [place] 50 :00 Medical Branch NIFEdipine 2022- No Nifedical U nivers XL 30 mg 24 3-20 03-20 XL 30 mg ity of hr tablet 12:29: 00:00 tablet,ext [place] 50 :00 ended Medical release Branch SERTraline 2022- No 12.5mg Take 12.5 Univers 25 mg 3-20 03-20 mg by ity of tablet 12:29: 00:00 mouth. [place] 50 :00 [facility] Branch ramipriL 10 2022- No 10mg Take 10 mg Univers mg capsule 3-20 03-20 by mouth ity of 12:29: 00:00 daily. [place] 50 :00 [facility] Branch Cran[place] 2022- No 500mg Take 500 [place] 500 mg Cap 3-20 03-20 mg by ity of 12:29: 00:00 mouth 2 [place] 50 :00 (two) Medical times Branch daily. d-mannose 2022- No Take by Univ ers 500 mg Cap 3-20 03-20 mouth. ity of 12:29: 00:00 [place] 50 :00 Medical Branch ferrous 2022-2022- No [id number] 325mg Take 1 U nivers sulfate 325 3-20 04-20 tablet by it y of mg (65 mg 00:00: 04:59 mouth in [place] as iron) 00 :00 the Medical tablet morning Branch and 1 tablet in the evening. Do all this for 30 days. furosemide 2022- No [id number] 40mg Take 1 Univers 40 mg 3-20 04-20 tablet by ity of tablet 00:00: 04:59 mouth in [place] 00 :00 the Medical morning Branch for 30 days. ferrous 2022- No [id number] 325mg Take 1 U nivers sulfate 325 3-20 04-20 tablet by it y of mg (65 mg 00:00: 04:59 mouth in [place] as iron) 00 :00 the Medical tablet morning Branch and 1 tablet in the evening. Do all this for 30 days. furosemide 2022- No [id number] 40mg Take 1 Univers 40 mg 3-20 04-20 tablet by ity of tablet 00:00: 04:59 mouth in [place] 00 :00 the Medical morning Branch for 30 days. ferrous 2022- No [id number] 325mg Take 1 U nivers sulfate 325 3-20 04-20 tablet by it y of mg (65 mg 00:00: 04:59 mouth in [place] as iron) 00 :00 the Medical tablet morning Branch and 1 tablet in the evening. Do all this for 30 days. furosemide 2022- No [id number] 40mg Take 1 Univers 40 mg 3-20 04-20 tablet by ity of tablet 00:00: 04:59 mouth in [place] 00 :00 the Medical morning Branch for 30 days. ferrous 2022- No [id number] 325mg Take 1 U nivers sulfate 325 3-20 04-20 tablet by it y of mg (65 mg 00:00: 04:59 mouth in [place] as iron) 00 :00 the Medical tablet morning Branch and 1 tablet in the evening. Do all this for 30 days. furosemide 2022- No [id number] 40mg Take 1 Univers 40 mg 3-20 04-20 tablet by ity of tablet 00:00: 04:59 mouth in [place] 00 :00 the Medical morning Branch for 30 days. ferrous 2022- No [id number] 325mg Take 1 U nivers sulfate 325 3-20 04-20 tablet by it y of mg (65 mg 00:00: 04:59 mouth in [place] as iron) 00 :00 the Medical tablet morning Branch and 1 tablet in the evening. Do all this for 30 days. furosemide 2022- No [id number] 40mg Take 1 Univers 40 mg 3-20 04-20 tablet by ity of tablet 00:00: 04:59 mouth in [place] 00 :00 the Medical morning Branch for 30 days. ferrous 2022- No [id number] 325mg Take 1 U nivers sulfate 325 3-20 04-20 tablet by it y of mg (65 mg 00:00: 04:59 mouth in [place] as iron) 00 :00 the Medical tablet morning Branch and 1 tablet in the evening. Do all this for 30 days. furosemide 2022- No [id number] 40mg Take 1 Univers 40 mg 3-20 04-20 tablet by ity of tablet 00:00: 04:59 mouth in [place] 00 :00 the Medical morning Branch for 30 days. ferrous 2022- No [id number] 325mg Take 1 U nivers sulfate 325 3-20 04-20 tablet by it y of mg (65 mg 00:00: 04:59 mouth in [place] as iron) 00 :00 the Medical tablet morning Branch and 1 tablet in the evening. Do all this for 30 days. furosemide 2022- No [id number] 40mg Take 1 Univers 40 mg 3-20 04-20 tablet by ity of tablet 00:00: 04:59 mouth in [place] 00 :00 the Medical morning Branch for 30 days. ferrous 2022- No [id number] 325mg Take 1 U nivers sulfate 325 3-20 04-20 tablet by it y of mg (65 mg 00:00: 04:59 mouth in [place] as iron) 00 :00 the Medical tablet morning Branch and 1 tablet in the evening. Do all this for 30 days. furosemide 0 2022- No [id number] 40mg Take 1 Univers 40 mg -20 04-10 tablet by ity of tablet 00:00: 00:00 mouth in [place] 00 :00 the Medical morning Branch for 30 days. fosfomycin 0 2022- No [id number] 3g Take 3 g Univers 3 gram 20 03-21 by mouth ity of packet 00:00: 04:59 once now [place] 00 :00 for 1 Medical dose. Branch ferrous 0 Yes 325mg 325 mg, Univer s sulfate 3-19 Oral, BID, ity of tablet 325 01:00: First dose [place] mg 00 on Sat Medical 11/09/22 at Branch 2000, Until Discontinu ed, Routine levalbutero 0 Yes .63mg 0.63 mg, U nivers l (XOPENEX) 3-19 Inhalation it y of nebulizer 01:00: , TID, [place] solution 00 First dose Medic al 0.63 mg (after Branch last modificati on) on 11/09/22 at 2000, Until Discontinu ed, Routine furosemide 0 Yes 40mg 40 mg, Unive rs (LASIX) [...] 0900, Until Discontinu ed, Routine aspirin EC 0 Yes 81mg 81 mg, Unive rs tablet 81 3-17 Oral, ity of mg 14:00: DAILY, [place] 00 First dose Medical on Fri Branch 11/08/22 at 0900, Until Discontinu ed, Routine furosemide 2022- No 20mg 20 mg, [facility] ers (LASIX) 11-08 Slow IV ity of injection 14:00: 18:42 Push, [place] 20 mg 00 :42 QAM+PM, Medical First dose Branch on Fri11/08/22 at 0900, Until Discontinu ed, Routine levalbutero 2022- No .63mg 0.63 mg, Univers l (XOPENEX) 11-08 Inhalation i ty of nebulizer 13:00: 19:38 , TID, [place] solution 00 :15 First dose Medic al 0.63 mg (after Branch last modificati on) on Fri11/08/22 at 0800, Until Discontinu ed, Routine famotidine No 20mg 20 mg, [facility] ers (PEPCID AC) 11-08 Oral, BID, i ty of tablet 20 13:00: 14:23 First dose [place] mg 00 :43 on Fri Medical 11/08/22 at Branch 0800, Until Discontinu ed, Routine cefTRIAXone No 1000mg 1,000 mg, Univers (ROCEPHIN) 11-08 IV ity of 1,000 mg in 12:15: 12:14 Piggyback, [place] NaCl 0.9% 00 :00 Q24H ABX, Medic [...] Until Discontinu ed, Routine iopamidol 2022- No [id number] 80mL 80 mL, Univers (ISOVUE 11-08 Intravenou ity o f 370-500 mL) 00:15: 00:15 s, ONCE, 1 [place] injection 00 :00 dose, On Medica l 80 mL [facility] Branch 11/07/22 at 1915, Routine azithromyci No 500mg 500 mg, IV Univers n 11-07 Piggyback, ity of (ZITHROMAX) 23:30: 10:59 Q24H ABX, [place] 500 mg in 00 :48 3 doses, Medica l NaCl 0.9% First dose Bran ch (NS) 250 mL on [facility] VIAL-MATE 11/07/22 at IV 1830, Last piggyback [...] :18 First dose Medi andrez solution on [facility] Branch 0.5 mg 11/07/22 at 1800, Until Discontinu ed, Routine methylpredn 2022- No 125mg 125 mg, U nivers isolone sod 16 03-16 Intravenou i ty of succ 23:00: [...] 16 Oral, ity of (TYLENOL) 22:20: Q6HPRN, [place] tablet 650 52 Starting Medic al mg on [place] Branch 11/07/22 at 1720, Until Discontinu ed, Routine, Pain (scale 1-3) FLUoxetine 2022-0 Yes Univers 10 mg 2-20 ity of capsule 00:00: [place] [facility] FLUoxetine 2022-0 Yes Univers 10 mg 2-20 ity of capsule 00:00: [address] FLUoxetine 2022-0 Yes Univers 10 mg 2-20 ity of capsule 00:00: [address] FLUoxetine 2022-0 Yes Univers 10 mg 2-20 ity of capsule 00:00: [address] FLUoxetine 2022-0 Yes Univers 10 mg 2-20 ity of capsule 00:00: [address] FLUoxetine 2022-0 Yes Univers 10 mg 2-20 ity of capsule 00:00: [address] Branch FLUoxetine 2022-0 Yes Univers 10 mg 2-20 ity of capsule 00:00: [address] FLUoxetine 2022-0 Yes Univers 10 mg 2-20 ity of capsule 00:00: [address] FLUoxetine 2022-0 Yes Univers 10 mg 2-20 ity of capsule 00:00: [address] FLUoxetine 2022-0 Yes Univers 10 mg 2-20 ity of capsule 00:00: [address] FLUoxetine 2022-0 Yes Univers 10 mg 2-20 ity of capsule 00:00: [address] FLUoxetine 2022-0 Yes Univers 10 mg 2-20 ity of capsule 00:00: [address] Branch FLUoxetine Yes Univers 10 mg 2-20 ity of capsule 00:00: [facility] Branch FLUoxetine 0 Yes Univers 10 mg 2-20 ity of capsule 00:00: [facility] Branch FLUoxetine Yes Univers 10 mg 2-20 ity of capsule 00:00: [facility] Branch FLUoxetine 0 Yes Univers 10 mg 2-20 ity of capsule 00:00: [facility] Branch denosumab 2021- No [id number] 60mg 60 mg, U nivers (PROLIA) 05-23 Subcutaneo ity of injection 18:11: 18:17 [place], ONCE, [place] 60 mg 00 :00 1 dose, On Med ical [facility] Branch 05/23/22 at 1315, Routine
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
Reaso n for non-formul miquel use: PATIENT CURRENTLY TAKING NONFORMULA RY PRODUCT d-mannose Yes [facility] mg Cap 7-20 mouth. ity of 17:29: [address] spironolact Yes Take by Uni vers one 25 mg/5 7-20 mouth ity of mL oral 17:29: daily. [place] suspension [address] [place] [address] levothyroxi Yes 75mg Take 75 mg Univers ne sodium 7-20 by mouth. ity o f (LEVOTHROID 17:29: [place] ORAL) [address] [place] [address] mirabegron Yes Take by [facility] ers (MYRBETRIQ) 7-20 mouth ity of 50 mg 17:29: daily. [place] tablet [address] [place] [address] d-mannose Yes Take by Unive rs 500 mg Cap 7-20 mouth. ity of 17:29: [address] spironolact Yes Take by Uni vers one 25 mg/5 7-20 mouth ity of mL oral 17:29: daily. [place] suspension [address] [place] [address] levothyroxi Yes 75mg Take 75 mg Univers ne sodium 7-20 by mouth. ity o f (LEVOTHROID 17:29: [place] ORAL) [address] [place] [address] mirabegron 2022-0 Yes Take by Univ ers (MYRBETRIQ) 7-20 mouth ity of 50 mg 17:29: daily. [place] tablet 15 Medical Branch d-mannose 0 Yes Take by Unive rs 500 mg Cap 7-20 mouth. ity of 17:29: [place] 15 Medical Branch spironolact Yes Take by Uni vers one 25 mg/5 7-20 mouth ity of mL oral 17:29: daily. [place] suspension 15 Medical Branch levothyroxi 0 Yes 75mg Take 75 mg Univers ne sodium 7-20 by mouth. ity o f (LEVOTHROID 17:29: [place] ORAL) 15 Medical Branch mirabegron Yes Take by [facility] ers (MYRBETRIQ) 7-20 mouth ity of 50 mg 17:29: daily. [place] tablet 15 Medical Branch d-mannose Yes Take by Unive rs 500 mg Cap 7-20 mouth. ity of 17:29: [place] 15 Medical Branch spironolact Yes Take by Uni vers one 25 mg/5 7-20 mouth ity of mL oral 17:29: daily. [place] suspension 15 Medical Branch levothyroxi Yes 75mg Take 75 mg Univers ne sodium 7-20 by mouth. ity o f (LEVOTHROID 17:29: [place] ORAL) 15 Medical Branch mirabegron Yes Take by [facility] ers (MYRBETRIQ) 7-20 mouth ity of 50 mg 17:29: daily. [place] tablet 15 Medical Branch amiodarone 0 Yes 200mg Take 200 [place] 200 mg 7-12 mg by ity of tablet 00:00: mouth in [place] 00 the Medical morning. Branch amiodarone 0 Yes 200mg Take 200 [place] 200 mg 7-12 mg by ity of tablet 00:00: mouth in [place] 00 the Medical morning. Branch amiodarone 2021-0 Yes 200mg Take 200 [place] 200 mg 7-12 mg by ity of tablet 00:00: mouth in [place] 00 the Medical morning. Branch amiodarone 0 Yes 200mg Take 200 [place] 200 mg 7-12 mg by ity of tablet 00:00: mouth in [place] 00 the Medical morning. Branch amiodarone 0 2022- No 200mg Take 200 U nivers 200 mg 7-12 03-20 mg by ity of tablet 00:00: 00:00 mouth in [place] 00 :00 the Medical morning. Branch amiodarone 2021-2022- No 200mg Take 200 U nivers 200 mg 7-12 03-20 mg by ity of tablet 00:00: 00:00 mouth in [place] 00 :00 the Medical morning. Branch amLODIPine 2021-0 Yes 2.5mg Take 2.5 [place] 2.5 mg 6-20 mg by ity of tablet 00:00: mouth in [place] 00 the Medical morning Branch and 2.5 mg in the evening. amLODIPine 2021-0 Yes 2.5mg Take 2.5 [place] 2.5 mg 6-20 mg by ity of tablet 00:00: mouth in [place] 00 the Medical morning Branch and 2.5 mg in the evening. amLODIPine 2021-0 Yes 2.5mg Take 2.5 [place] 2.5 mg 6-20 mg by ity of tablet 00:00: mouth in [place] 00 the Medical morning Branch and 2.5 mg in the evening. amLODIPine 2021-0 Yes 2.5mg Take 2.5 [place] 2.5 mg 6-20 mg by ity of tablet 00:00: mouth in [place] 00 the Medical morning Branch and 2.5 mg in the evening. amLODIPine 2021-0 2022- No 2.5mg Take 2.5 U nivers 2.5 mg 6-20 03-20 mg by ity of tablet 00:00: 00:00 mouth in [place] 00 :00 the Medical morning Branch and 2.5 mg in the evening. amLODIPine 2021-0 2022- No 2.5mg Take 2.5 U nivers 2.5 mg 6-20 03-20 mg by ity of tablet 00:00: 00:00 mouth in [place] 00 :00 the Medical morning Branch and 2.5 mg in the evening. ELIQUIS 2.5 2021-0 Yes 2.5mg Take 2.5 U nivers mg tablet 6-17 mg by ity of 00:00: mouth 2 [place] 00 (two) Medical times Branch daily. ELIQUIS [...] mg by ity of 00:00: mouth 2 [place] (two) Medical times Branch daily. ELIQUIS 2.5 2021-0 Yes 2.5mg Take 2.5 U nivers mg tablet 6-17 mg by ity of 00:00: mouth 2 [place] (two) Medical times Branch daily. ELIQUIS 2.5 2021-0 Yes 2.5mg Take 2.5 U nivers mg tablet 6-17 mg by ity of 00:00: mouth 2 [place] (two) Medical times Branch daily. SERTraline 2020-0 Yes 12.5mg Take 12.5 Univers 25 mg 8-06 mg by ity of tablet 11:25: mouth. Medical Branch Cran[place] 2020-0 Yes 500mg Take 500 Uni vers 500 mg Cap 8-06 mg by ity of 11:25: mouth 2 [place] [address] (two) Medical times Branch daily. iron,carb/f 2020-0 Yes 1{tbl} Take 1 Un [place] olic ac/vit 8-06 tablet by ity of Bcomp,C 11:25: mouth 2 [place] (IRON-FOLIC 07 (two) Medical 500 ORAL) times Branch daily. SERTraline 2020-0 Yes 12.5mg Take 12.5 Univers 25 mg 8-06 mg by ity of tablet 11:25: mouth. [place] [address] Medical Branch Cran[place] 2020-0 Yes 500mg Take 500 Uni vers 500 mg Cap 8-06 mg by ity of 11:25: mouth 2 [place] (two) Medical times Branch daily. iron,carb/f 2020-0 Yes 1{tbl} Take 1 [place] olic ac/vit 8-06 tablet by ity of Bcomp,C 11:25: mouth 2 [place] (IRON-FOLIC 07 (two) Medical 500 ORAL) times Branch daily. SERTraline 2020-0 Yes 12.5mg Take 12.5 Univers 25 mg 8-06 mg by ity of tablet 11:25: mouth. [place] [address] Medical Branch Cran[place] 2020-0 Yes 500mg Take 500 Uni vers 500 mg Cap 8-06 mg by ity of 11:25: mouth 2 [place] [address] (two) Medical times Branch daily. iron,carb/f 2020-0 Yes 1{tbl} Take 1 [place] olic ac/vit 8-06 tablet by ity of Bcomp,C 11:25: mouth 2 [place] (IRON-FOLIC 07 (two) Medical 500 ORAL) times Branch daily. SERTraline Yes 12.5mg Take 12.5 Univers 25 mg 8-06 mg by ity of tablet 11:25: mouth. [address] [place] Yes 500mg Take 500 Uni vers 500 mg Cap 8-06 mg by ity of 11:25: mouth 2 [place] [address] (two) Medical times Branch daily. iron,carb/f Yes 1{tbl} Take 1 [place] olic ac/vit 8-06 tablet by ity of Bcomp,C 11:25: mouth 2 [place] (IRON-FOLIC 07 (two) Medical 500 ORAL) times [place] daily. folic acid Yes [id number] Take by Univers (FA-8) 0.8 4-15 mouth. ity of mg Cap 10:51: [address] Magnesium Yes [id number] 500mg Take 500 Univers 250 mg Tab 4-15 mg by ity of 10:51: mouth. [address] aspirin 81 Yes 81mg Take 81 mg U nivers mg EC 4-15 by mouth ity of tablet 10:51: daily. [address] CALCIUM Yes Take by Univers CITRATE 4-15 mouth. ity of ORAL 10:51: [address] NIFEdipine Yes Nifedical [place] XL 30 mg 24 4-15 XL 30 mg ity of hr tablet 10:51: [place],ext [place] [address] [place] [address] Branch ramipriL 10 Yes 10mg Take 10 mg Univers mg capsule 4-15 by mouth ity o f 10:51: daily. [address] folic acid Yes [id number] Take by Univers (FA-8) 0.8 4-15 mouth. ity of mg Cap 10:51: [address] Magnesium Yes [id number] 500mg Take 500 Univers 250 mg Tab 4-15 mg by ity of 10:51: mouth. [address] aspirin 81 0 Yes 81mg Take 81 mg U nivers mg EC 4-15 by mouth ity of tablet 10:51: daily. [address] CALCIUM Yes Take by Univers CITRATE 4-15 mouth. ity of ORAL 10:51: [address] NIFEdipine Yes Nifedical [place] XL 30 mg 24 4-15 XL 30 mg ity of hr tablet 10:51: tablet,ext [place] [facility] ramipriL 10 Yes 10mg Take 10 mg Univers mg capsule 4-15 by mouth ity o f 10:51: daily. [address] folic acid Yes [id number] Take by Univers (FA-8) 0.8 4-15 mouth. ity of mg Cap 10:51: [address] Magnesium Yes [id number] 500mg Take 500 Univers 250 mg Tab 4-15 mg by ity of 10:51: mouth. [address] aspirin 81 0 Yes 81mg Take 81 mg U nivers mg EC 4-15 by mouth ity of tablet 10:51: daily. [address] CALCIUM Yes Take by Univers CITRATE 4-15 mouth. ity of ORAL 10:51: [address] NIFEdipine Yes Nifedical [place] XL 30 mg 24 4-15 XL 30 mg ity of hr tablet 10:51: tablet,ext [place] [address] [facility] ramipriL 10 Yes 10mg Take 10 mg Univers mg capsule 4-15 by mouth ity o f 10:51: daily. [address] folic acid 0 Yes [id number] Take by Univers (FA-8) 0.8 4-15 mouth. ity of mg Cap 10:51: [address] Magnesium 2020-0 Yes [id number] 500mg Take 500 Univers 250 mg Tab 4-15 mg by ity of 10:51: mouth. [address] aspirin 81 2020-0 Yes 81mg Take 81 mg U nivers mg EC 4-15 by mouth ity of tablet 10:51: daily. [address] CALCIUM 0 Yes Take by Univers CITRATE 4-15 mouth. ity of ORAL 10:51: [address] NIFEdipine 0 Yes Nifedical [place] XL 30 mg 24 4-15 XL 30 mg ity of hr tablet 10:51: tablet,ext [place] [address] [facility] ramipriL 10 2020-0 Yes 10mg Take 10 mg Univers mg capsule 4-15 by mouth ity o f 10:51: daily. [address] 24 HR 2019-08 Yes 50 mg = 1 [place] mirabegron 2-30 tab, PO, l 50 MG 15:24: Daily, # [place] Extended 00 30 tab, 0 Release Refill(s), Tablet Pharmacy: [[facility]] [facility], 160.02, cm, 08/23/20 8:57: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, Height, 60, kg, 08/23/20 8:57: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, Weight 24 HR 2019-08 Yes 50 mg = 1 [facility] mirabegron 2-30 tab, PO, l 50 MG 15:24: Daily, # [place] Extended 00 30 tab, 0 Release Refill(s), Tablet Pharmacy: [[facility]] [facility], 160.02, cm, 08/23/20 8:57: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, Height, 60, kg, 08/23/20 8:57: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, Weight 24 HR 2019-08 Yes 50 mg = 1 [facility] mirabegron 2-30 tab, PO, l 50 MG 15:24: Daily, # [place] Extended 00 30 tab, 0 Release Refill(s), Tablet Pharmacy: [[facility]] [facility], 160.02, cm, 08/23/20 8:57: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, Height, 60, kg, 08/23/20 8:57: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, Weight 24 HR 2019-08 Yes 50 mg = 1 [facility] mirabegron 2-30 tab, PO, l 50 MG 15:24: Daily, # [place] Extended 00 30 tab, 0 Release Refill(s), Tablet Pharmacy: [[facility]] [facility], 160.02, cm, 08/23/20 8:57: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, Height, 60, kg, 08/23/20 8:57: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, Weight 24 HR 2019-08 Yes 50 mg = 1 [facility] mirabegron 2-30 tab, PO, l 50 MG 15:24: Daily, # Kevin Extended 00 30 tab, 0 Release Refill(s), Tablet Pharmacy: [[facility], 160.02, cm, 08/23/20 8:57: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, Height, 60, kg, 08/23/20 8:57: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, Weight 24 HR 2019-08 Yes 50 mg = 1 Memoria mirabegron 2-30 tab, PO, l 50 MG 15:24: Daily, # Williams Extended 00 30 tab, 0 Release Refill(s), Tablet Pharmacy: [[facility]] [facility], 160.02, cm, 08/23/20 8:57: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, Height, 60, kg, 08/23/20 8:57: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, Weight 24 HR 2019-08 Yes 50 mg = 1 Memoria mirabegron 2-30 tab, PO, l 50 MG 15:24: Daily, # Williams Extended 00 30 tab, 0 Release Refill(s), Tablet Pharmacy: [[facility]] [facility], 160.02, cm, 08/23/20 8:57: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, Height, 60, kg, 08/23/20 8:57: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, Weight 24 HR 2019-08 Yes 50 mg = 1 Memoria mirabegron 2-30 tab, PO, l 50 MG 15:24: Daily, # Kevin Extended 00 30 tab, 0 Release Refill(s), Tablet Pharmacy: [[facility]] [facility], 160.02, cm, 08/23/20 8:57: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, Height, 60, kg, 08/23/20 8:57: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, Weight 24 HR 2019-08 Yes 50 mg = 1 Memoria mirabegron 2-30 tab, PO, l 50 MG 15:24: Daily, # Williams Extended 00 30 tab, 0 Release Refill(s), Tablet Pharmacy: [[facility]] [facility], 160.02, cm, 08/23/20 8:57: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, Height, 60, kg, 08/23/20 8:57: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, Weight 24 HR 2019-08 Yes 50 mg = 1 Memoria mirabegron 2-30 tab, PO, l 50 MG 15:24: Daily, # Williams Extended 00 30 tab, 0 Release Refill(s), Tablet Pharmacy: [[facility]] [facility], 160.02, cm, 08/23/20 8:57: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, Height, 60, kg, 08/23/20 8:57: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, Weight 24 HR 2019-08 Yes 50 mg = 1 Memoria mirabegron 2-30 tab, PO, l 50 MG 15:24: Daily, # Williams Extended 00 30 tab, 0 Release Refill(s), Tablet Pharmacy: [[facility]] [facility], 160.02, cm, 08/23/20 8:57: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, Height, 60, kg, 08/23/20 8:57: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, Weight 24 HR 2019-08 Yes 50 mg = 1 Memoria mirabegron 2-30 tab, PO, l 50 MG 15:24: Daily, # Williams Extended 00 30 tab, 0 Release Refill(s), Tablet Pharmacy: [[facility]] [facility], 160.02, cm, 08/23/20 8:57: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, Height, 60, kg, 08/23/20 8:57: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, Weight 24 HR 2019-08 Yes 50 mg = 1 Memoria mirabegron 2-30 tab, PO, l 50 MG 15:24: Daily, # Williams Extended 00 30 tab, 0 Release Refill(s), Tablet Pharmacy: [[facility]] [facility], 160.02, cm, 08/23/20 8:57: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, Height, 60, kg, 08/23/20 8:57: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, Weight 24 HR 2019-08 Yes 50 mg = 1 Memoria mirabegron 0-21 tab, PO, l 50 MG 16:58: Daily, # Williams Extended 00 30 tab, 0 Release Refill(s), [...] PO, l 50 MG 16:58: Daily, # Williams Extended 00 30 tab, 0 Release Refill(s), [...] PO, l 50 MG 16:58: Daily, # Williams Extended 00 30 tab, 0 Release Refill(s), [...] PO, l 50 MG 16:58: Daily, # Williams Extended 00 30 tab, 0 Release Refill(s), [...] tab, 0 Release Refill(s), Tablet Pharmacy: [[facility]] [facility], 160.02, cm, 06/14/20 10:46:00 CDT, Height, [...] PO, l 50 MG 16:58: Daily, # Williams Extended 00 30 tab, 0 Release Refill(s), [...] PO, l 50 MG 16:58: Daily, # Williams Extended 00 30 tab, 0 Release Refill(s), [...] PO, l 50 MG 16:58: Daily, # Williams Extended 00 30 tab, 0 Release Refill(s), [...] PO, l 50 MG 16:58: Daily, # Williams Extended 00 30 tab, 0 Release Refill(s), [...] PO, l 50 MG 16:58: Daily, # Williams Extended 00 30 tab, 0 Release Refill(s), Tablet Pharmacy: [[facility]] [facility], 160.02, cm, 06/14/20 10:46:00 CDT, Height, 60, kg, 06/14/20 10:46:00 CDT, Weight Estradiol 2020- Yes See Memoria 0.1 MG/ML 0-21 Instructio l Vaginal 16:58: ns, apply Mela nn Cream 00 pea size [Estrace] amount to urethra and vagina 3xweek. May dispose of applicator ., # 43 gm, 3 Refill(s), Pharmacy: [facility], 160.02, cm, 06/14/20 10:46:00 CDT, Height, [...] sony in 0 (Same l 14:55: as:Nitroqu Williams 00 ick, Nitrostat) "Do Not Crush" Sublingual [...] Arturo sony in (Same l 14:55: as:Nitroqu Williams 00 ick, Nitrostat) "Do Not Crush" Sublingual [...] Arturo sony in (Same l 14:55: as:Nitroqu Williams 00 ick, Nitrostat) "Do Not Crush" Sublingual tablet Sodium 2018-08 No 750 mL, Memoria Chloride 0 Rate: 75 l 0.9% IV 750 14:55: ml/hr, Herm angela mL 00 Infuse over: 10 hr, Route: IV, Dosing Weight 65.909 kg, Total Volume: 750, Start date: 06/02/19 9:55:00 CDT, Duration: 10 hr, Stop date: 06/02/19 19:54:00 CDT, 1.72, m2, 0 Nitroglycer 2018-08 No Notes: Artruo sony in (Same l 14:55: as:Nitroqu Williams 00 ick, Nitrostat) "Do Not Crush" Sublingual [...] Arturo sony in (Same l 14:55: as:Nitroqu Williams 00 ick, Nitrostat) "Do Not Crush" Sublingual [...] sony in 0 (Same l 14:55: as:Nitroqu Williams 00 ick, Nitrostat) "Do Not Crush" Sublingual [...] sony in 0 (Same l 14:55: as:Nitroqu Williams 00 ick, Nitrostat) "Do Not Crush" Sublingual [...] cap, PO, l capsule 10:59: BID, 0 Williams 00 Refill(s) [place] 2018-08 Yes 1 tab, PO, Memor ia Calcium 0-09 BID, 0 l with 10:59: Refill(s) Kevin Vitamin D 00 Chelated 2018-08 Yes See Memoria Magnesium 0-09 Instructio l 10:59: ns, 250 mg Kevin 00 PO QPM, 0 Refill(s) oxybutynin 2018-08 Yes 5 mg = 1 Mem oria 5 mg oral 0-09 tab, PO, l tablet, 10:59: QAM, 0 Williams extended 00 Refill(s) release ramipril 2018-08 Yes 10 mg = 1 M emoria mg oral 0-09 cap, PO, l capsule 10:59: BID, 0 Kevin 00 Refill(s) [place] 2018-08 Yes 1 tab, PO, Memor ia Calcium 0-09 BID, 0 l with 10:59: Refill(s) Kevin Vitamin D 00 Chelated 2018-08 Yes See Memoria Magnesium 0-09 Instructio l 10:59: ns, 250 mg Williams 00 PO QPM, 0 Refill(s) oxybutynin 2018-08 Yes 5 mg = 1 Mem oria 5 mg oral 0-09 tab, PO, l tablet, 10:59: QAM, 0 Kevin extended 00 Refill(s) release ramipril 2018-08 Yes 10 mg = 1 M emoria mg oral 0-09 cap, PO, l capsule 10:59: BID, 0 Williams 00 Refill(s) [place] 2018-08 Yes 1 tab, PO, Memor ia Calcium 0-09 BID, 0 l with 10:59: Refill(s) Williams Vitamin D 00 Chelated 2018-08 Yes See Memoria Magnesium 0-09 Instructio l 10:59: ns, 250 mg Williams 00 PO QPM, 0 Refill(s) oxybutynin 2018-08 Yes 5 mg = 1 Mem oria 5 mg oral 0-09 tab, PO, l tablet, 10:59: QAM, 0 Williams extended 00 Refill(s) release ramipril 2018-08 Yes 10 mg = 1 M emoria mg oral 0-09 cap, PO, l capsule 10:59: BID, 0 Kevin 00 Refill(s) [place] 2018-08 Yes 1 tab, PO, Memor ia [...] capsule 10:59: BID, 0 Kevin 00 Refill(s) [place] 2018-08 Yes 1 tab, PO, Memor ia Calcium 0-09 BID, 0 l with 10:59: Refill(s) Williams Vitamin D 00 Chelated 2018-08 Yes See Memoria Magnesium 0-09 Instructio l 10:59: ns, 250 mg Williams 00 PO QPM, 0 Refill(s) oxybutynin 2018-08 Yes 5 mg = 1 Mem oria 5 mg oral 0-09 tab, PO, l tablet, 10:59: QAM, 0 Kevin extended 00 Refill(s) release ramipril 2018-08 Yes 10 mg = 1 M emoria mg oral 0-09 cap, PO, l capsule 10:59: BID, 0 Kevin 00 Refill(s) [place] 2018-08 Yes 1 tab, PO, Memor ia Calcium 0-09 BID, 0 l with 10:59: Refill(s) Williams Vitamin D 00 Chelated 2018-08 Yes See Memoria Magnesium 0-09 Instructio l 10:59: ns, 250 mg Williams 00 PO QPM, 0 Refill(s) oxybutynin 2018-08 Yes 5 mg = 1 Mem oria 5 mg oral 0-09 tab, PO, l tablet, 10:59: QAM, 0 Williams extended 00 Refill(s) release ramipril 2018-08 Yes 10 mg = 1 M emoria mg oral 0-09 cap, PO, l capsule 10:59: BID, 0 Kevin 00 Refill(s) [place] 2018-08 Yes 1 tab, PO, Memor ia Calcium 0-09 BID, 0 l with 10:59: Refill(s) Williams Vitamin D 00 Chelated 2018-08 Yes See Memoria Magnesium 0-09 Instructio l 10:59: ns, 250 mg Kevin 00 PO QPM, 0 Refill(s) oxybutynin 2018-08 Yes 5 mg = 1 Mem oria 5 mg oral 0-09 tab, PO, l tablet, 10:59: QAM, 0 Williams extended 00 Refill(s) release ramipril 2018-08 Yes 10 mg = 1 M emoria mg oral 0-09 cap, PO, l capsule 10:59: BID, 0 Williams 00 Refill(s) [place] 2018-08 Yes 1 tab, PO, Memor ia Calcium 0-09 BID, 0 l with 10:59: Refill(s) Kevin Vitamin D 00 Chelated 2018-08 Yes See Memoria Magnesium 0-09 Instructio l 10:59: ns, 250 mg Kevin 00 PO QPM, 0 Refill(s) oxybutynin 2018-08 Yes 5 mg = 1 Mem oria 5 mg oral 0-09 tab, PO, l tablet, 10:59: QAM, 0 Williams extended 00 Refill(s) release ramipril 2018-08 Yes 10 mg = 1 M emoria mg oral 0-09 cap, PO, l capsule 10:59: BID, 0 Kevin 00 Refill(s) [place] 2018-08 Yes 1 tab, PO, Memor ia Calcium 0-09 BID, 0 l with 10:59: Refill(s) Kevin Vitamin D 00 Chelated 2018-08 Yes See Memoria Magnesium 0-09 Instructio l 10:59: ns, 250 mg Kevin 00 PO QPM, 0 Refill(s) oxybutynin 2018-08 Yes 5 mg = 1 Mem oria 5 mg oral 0-09 tab, PO, l tablet, 10:59: QAM, 0 Williams extended 00 Refill(s) release ramipril 2018-08 Yes 10 mg = 1 M emoria mg oral 0-09 cap, PO, l capsule 10:59: BID, 0 Kevin 00 Refill(s) [place] 2018-08 Yes 1 tab, PO, Memor ia Calcium 0-09 BID, 0 l with 10:59: Refill(s) Williams Vitamin D 00 Chelated 2018-08 Yes See Memoria Magnesium 0-09 Instructio l 10:59: ns, 250 mg Williams 00 PO QPM, 0 Refill(s) oxybutynin 2018-08 Yes 5 mg = 1 Mem oria 5 mg oral 0-09 tab, PO, l tablet, 10:59: QAM, 0 Williams extended 00 Refill(s) release ramipril 2018-08 Yes 10 mg = 1 M emoria mg oral 0-09 cap, PO, l capsule 10:59: BID, 0 Williams 00 Refill(s) [place] 2018-08 Yes 1 tab, PO, Memor ia Calcium 0-09 BID, 0 l with 10:59: Refill(s) Williams Vitamin D 00 Chelated 2018-08 Yes See Memoria Magnesium 0-09 Instructio l 10:59: ns, 250 mg Kevin 00 PO QPM, 0 Refill(s) oxybutynin 2019-1 Yes 5 mg = 1 Mem oria 5 mg oral 0-09 tab, PO, l tablet, 10:59: QAM, 0 Kevin extended 00 Refill(s) release ramipril 2018-08 Yes 10 mg = 1 M emoria mg oral 0-09 cap, PO, l capsule 10:59: BID, 0 Kevin 00 Refill(s) [place] 2018-08 Yes 1 tab, PO, Memor ia Calcium 0-09 BID, 0 l with 10:59: Refill(s) Williams Vitamin D 00 Chelated 2018-08 Yes See Memoria Magnesium 0-09 Instructio l 10:59: ns, 250 mg Kevin 00 PO QPM, 0 Refill(s) oxybutynin 2018-08 Yes 5 mg = 1 Mem oria 5 mg oral 0-09 tab, PO, l tablet, 10:59: QAM, 0 Williams extended 00 Refill(s) release ramipril 2018-08 Yes 10 mg = 1 M emoria mg oral 0-09 cap, PO, l capsule 10:59: BID, 0 Williams 00 Refill(s) [place] 2018-08 Yes 1 tab, PO, Memor ia Calcium 0-09 BID, 0 l with 10:59: Refill(s) Kevin Vitamin D 00 Chelated 2018-08 Yes See Memoria Magnesium 0-09 Instructio l 10:59: ns, 250 mg Williams 00 PO QPM, 0 Refill(s) Bifidobacte Yes 4 mg = 1 Me moria rium 9-11 cap, PO, l [place] 4 19:55: Daily, # Her carrizales MG Oral 00 28 cap, 0 Capsule Refill(s) [Align] azithromyci Yes See Memori a n 250 mg 9-11 Instructio l oral tablet 19:55: ns, Take 2 Williams 00 tablets by mouth the first day [...] l oral tablet 19:55: ns, Take 2 Williams 00 tablets by mouth the first day [...] l oral tablet 19:55: ns, Take 2 Williams 00 tablets by mouth the first day [...] l oral tablet 19:55: ns, Take 2 Williams 00 tablets by mouth the first day [...] l oral tablet 19:55: ns, Take 2 Williams 00 tablets by mouth the first day [...] l oral tablet 19:55: ns, Take 2 Williams 00 tablets by mouth the first day [...] l oral tablet 19:55: ns, Take 2 Williams 00 tablets by mouth the first day [...] Weight 64.545, kg, Start date: 10/29/16 9:00: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, Duration: 30 day, Stop date: 11/27/16 9:00:00 CDT Magnesium No Notes: Memori a Oxide 10-29 (Same as: l 15:00: Mag-Ox Kevin 00 400) Magnesium oxide 295uf=926d g elemental magnesium Dose=____m g magnesium oxide (___mg elemental magnesium) Folic Acid No 0.8 mg, 2 Me moria 3-07 tab, l 15:00: Route: PO, Drug form: TAB, Daily, Dosing Weight 64.545, kg, Start date: 10/29/16 9:00: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, Duration: 30 day, Stop date: 11/27/16 9:00:00 CDT ferrous No 325 mg, 1 Memor ia sulfate 3-07 tab, l 15:00: Route: PO, Drug form: ECTAB, Daily, Dosing Weight 64.545, kg, Start date: 10/29/16 9:00: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, Duration: 30 day, Stop date: 11/27/16 9:00:00 [...] 307 Route: PO, l 15:00: Drug form: TAB, Daily, Dosing Weight 64.545, kg, Start date: 10/29/16 9:00: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, Duration: 30 day, Stop date: 11/27/16 9:00:00 CDT Magnesium No Notes: Memori a Oxide 07 (Same as: l 15:00: Mag-Ox 400) Magnesium oxide 410cw=438a g elemental magnesium Dose=____m g magnesium oxide (___mg elemental magnesium) Folic Acid No 0.8 mg, 2 Me moria 3-07 tab, l 15:00: Route: PO, Drug form: TAB, Daily, Dosing Weight 64.545, kg, Start date: 10/29/16 9:00: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, Duration: 30 day, Stop date: 11/27/16 9:00:00 CDT ferrous No 325 mg, 1 Memor ia sulfate 3- tab, l 15:00: Route: PO, Drug form: ECTAB, Daily, Dosing Weight 64.545, kg, Start date: 10/29/16 9:00: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, Duration: 30 day, Stop date: 11/27/16 9:00:00 CDT Vitamin D3 No Notes: Memor ia 3-07 Same as: l 15:00: Vitamin D3 Aspirin No Notes: Do Memor ia 3-07 not crush l 15:00: or chew. Williams 00 (Same As: Ecotrin) Sertraline No Notes: Memor ia 3-07 (Same as: l 15:00: Zoloft) Ramipril No Notes: Memoria 3-07 (Same l 15:00: as:Altace) aspirin 81 No Notes: Do Me moria mg tablet, 10-29 not crush l enteric 15:00: or chew. Galen n (Same As: Ecotrin) clopidogrel No 75 mg, Arturo sony 3-07 Route: PO, l 15:00: Drug form: Williams TAB, Daily, Dosing Weight 64.545, kg, Start date: 10/29/16 9:00: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, Duration: 30 day, Stop date: 11/27/16 9:00:00 CDT Magnesium No Notes: Memori a Oxide 10-29 (Same as: l 15:00: Mag-Ox 400) Magnesium oxide 593hz=013p g elemental magnesium Dose=____m g magnesium oxide (___mg elemental magnesium) Folic Acid No 0.8 mg, 2 Me moria 3-07 tab, l 15:00: Route: PO, Drug form: TAB, Daily, Dosing Weight 64.545, kg, Start date: 10/29/16 9:00: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, Duration: 30 day, Stop date: 11/27/16 9:00:00 CDT ferrous No 325 mg, 1 Memor ia sulfate 3-07 tab, l 15:00: Route: PO, Drug form: ECTAB, Daily, Dosing Weight 64.545, kg, Start date: 10/29/16 9:00: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, Duration: 30 day, Stop date: 11/27/16 9:00:00 CDT Vitamin D3 No Notes: Memor ia 3-07 Same as: l 15:00: Vitamin D3 Aspirin No Notes: Do Memor ia 3-07 not crush l 15:00: or chew. Williams (Same As: Ecotrin) Sertraline No Notes: Memor ia 3-07 (Same as: l 15:00: Zoloft) Ramipril No Notes: Memoria 3-07 (Same l 15:00: as:Altace) aspirin 81 No Notes: Do Me moria mg tablet, 10-29 not crush l enteric 15:00: or chew. Galen n coated 00 (Same As: Ecotrin) clopidogrel No 75 mg, Arturo sony 07 Route: PO, l 15:00: Drug form: Williams 00 TAB, Daily, Dosing Weight 64.545, kg, Start date: 10/29/16 9:00: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, Duration: 30 day, Stop date: 11/27/16 9:00:00 CDT Magnesium No Notes: Memori a Oxide 10-29 (Same as: l 15:00: Mag-Ox 400) Magnesium oxide 826el=704b g elemental magnesium Dose=____m g magnesium oxide (___mg elemental magnesium) Folic Acid No 0.8 mg, 2 Me moria 3-07 tab, l 15:00: Route: PO, Drug form: TAB, Daily, Dosing Weight 64.545, kg, Start date: 10/29/16 9:00: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, Duration: 30 day, Stop date: 11/27/16 9:00:00 CDT ferrous No 325 mg, 1 Memor ia sulfate 3-07 tab, l 15:00: Route: PO, Drug form: ECTAB, Daily, Dosing Weight 64.545, kg, Start date: 10/29/16 9:00: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, Duration: 30 day, Stop date: 11/27/16 9:00:00 CDT Vitamin D3 No Notes: Memor ia 3-07 Same as: l 15:00: Vitamin D3 Aspirin No Notes: Do Memor ia 3-07 not crush l 15:00: or chew. Williams (Same As: Ecotrin) Sertraline No Notes: Memor ia 3- (Same as: l 15:00: Zoloft) Ramipril No Notes: Memoria 3- (Same l 15:00: as:Altace) aspirin 81 No Notes: Do Me moria mg tablet, 10-29 not crush l enteric 15:00: or chew. Galen (Same As: Ecotrin) clopidogrel No 75 mg, Arturo sony 10-29 Route: PO, l 15:00: Drug form: Kevin 00 TAB, Daily, Dosing Weight 64.545, kg, Start date: 10/29/16 9:00: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, Duration: 30 day, Stop date: 11/27/16 9:00:00 CDT Magnesium No Notes: Memori a Oxide 10-29 (Same as: l 15:00: Mag-Ox 400) Magnesium oxide 009pe=428m g elemental magnesium Dose=____m g magnesium oxide (___mg elemental magnesium) Folic Acid No 0.8 mg, 2 Me moria - tab, l 15:00: Route: PO, Drug form: TAB, Daily, Dosing Weight 64.545, kg, Start date: 10/29/16 9:00: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, Duration: 30 day, Stop date: 11/27/16 9:00:00 CDT ferrous No 325 mg, 1 Memor ia sulfate -07 tab, l 15:00: Route: PO, Drug form: ECTAB, Daily, Dosing Weight 64.545, kg, Start date: 10/29/16 9:00: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, Duration: 30 day, Stop date: 11/27/16 9:00:00 [...] No Notes: Do Me moria mg tablet, - not crush l enteric 15:00: or chew. Galen n (Same As: Ecotrin) clopidogrel No 75 mg, Arturo sony 10-29 Route: PO, l 15:00: Drug form: TAB, Daily, Dosing Weight 64.545, kg, Start date: 10/29/16 9:00: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, Duration: 30 day, Stop date: 11/27/16 9:00:00 CDT Magnesium No Notes: Memori a Oxide 10-29 (Same as: l 15:00: Mag-Ox 400) Magnesium oxide 693jx=721x g elemental magnesium Dose=____m g magnesium oxide (___mg elemental magnesium) Folic Acid No 0.8 mg, 2 Me moria - tab, l 15:00: Route: PO, Drug form: TAB, Daily, Dosing Weight 64.545, kg, Start date: 10/29/16 9:00: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, Duration: 30 day, Stop date: 11/27/16 9:00:00 CDT ferrous No 325 mg, 1 Memor ia sulfate 3-07 tab, l 15:00: Route: PO, Drug form: ECTAB, Daily, Dosing Weight 64.545, kg, Start date: 10/29/16 9:00: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, Duration: 30 day, Stop date: 11/27/16 9:00:00 CDT Vitamin D3 No Notes: Memor ia 3-07 Same as: l 15:00: Vitamin D3 Aspirin No Notes: Do Memor ia 3-07 not crush l 15:00: or chew. Williams (Same As: Ecotrin) Sertraline No Notes: Memor ia 3- (Same as: l 15:00: Zoloft) Ramipril No Notes: Memoria 3- (Same l 15:00: as:Altace) aspirin 81 No Notes: Do Me moria mg tablet, 10-29 not crush l enteric 15:00: or chew. Galen n coated (Same As: Ecotrin) clopidogrel No 75 mg, Arturo sony 10-29 Route: PO, l 15:00: Drug form: Kevin 00 TAB, Daily, Dosing Weight 64.545, kg, Start date: 10/29/16 9:00: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, Duration: 30 day, Stop date: 11/27/16 9:00:00 CDT Magnesium No Notes: Memori a Oxide 10-29 (Same as: l 15:00: Mag-Ox 400) Magnesium oxide 296lm=679i g elemental magnesium Dose=____m g magnesium oxide (___mg elemental magnesium) Folic Acid No 0.8 mg, 2 Me moria - tab, l 15:00: Route: PO, Drug form: TAB, Daily, Dosing Weight 64.545, kg, Start date: 10/29/16 9:00: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, Duration: 30 day, Stop date: 11/27/16 9:00:00 CDT ferrous No 325 mg, 1 Memor ia sulfate -07 tab, l 15:00: Route: PO, Drug form: ECTAB, Daily, Dosing Weight 64.545, kg, Start date: 10/29/16 9:00: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, Duration: 30 day, Stop date: 11/27/16 9:00:00 [...] Ecotrin) clopidogrel No 75 mg, Arturo sony 3 Route: PO, l 15:00: Drug form: TAB, Daily, Dosing Weight 64.545, kg, Start date: 10/29/16 9:00: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, Duration: 30 day, Stop date: 11/27/16 9:00:00 CDT Magnesium No Notes: Memori a Oxide 10-29 (Same as: l 15:00: Mag-Ox 400) Magnesium oxide 791vo=355q g elemental magnesium Dose=____m g magnesium oxide (___mg elemental magnesium) Folic Acid No 0.8 mg, 2 Me moria -07 tab, l 15:00: Route: PO, Drug form: TAB, Daily, Dosing Weight 64.545, kg, Start date: 10/29/16 9:00: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, Duration: 30 day, Stop date: 11/27/16 9:00:00 CDT ferrous No 325 mg, 1 Memor ia sulfate -07 tab, l 15:00: Route: PO, Drug form: ECTAB, Daily, Dosing Weight 64.545, kg, Start date: 10/29/16 9:00: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, Duration: 30 day, Stop date: 11/27/16 9:00:00 CDT Vitamin D3 No Notes: Memor ia 3-07 Same as: l 15:00: Vitamin D3 Aspirin No Notes: Do Memor ia 3-07 not crush l 15:00: or chew. Kevin (Same As: Ecotrin) Sertraline No Notes: Memor ia 3-07 (Same as: l 15:00: Zoloft) Ramipril No Notes: Memoria 3- (Same l 15:00: as:Altace) aspirin 81 No Notes: Do Me moria mg tablet, 3-07 not crush l enteric 15:00: or chew. Galen n (Same As: Ecotrin) clopidogrel No 75 mg, Arturo sony 3 Route: PO, l 15:00: Drug form: Williams TAB, Daily, Dosing Weight 64.545, kg, Start date: 10/29/16 9:00: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, Duration: 30 day, Stop date: 11/27/16 9:00:00 CDT Magnesium No Notes: Memori a Oxide 10-29 (Same as: l 15:00: Mag-Ox 400) Magnesium oxide 666uh=066m g elemental magnesium Dose=____m g magnesium oxide (___mg elemental magnesium) Folic Acid No 0.8 mg, 2 Me moria - tab, l 15:00: Route: PO, Drug form: TAB, Daily, Dosing Weight 64.545, kg, Start date: 10/29/16 9:00: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, Duration: 30 day, Stop date: 11/27/16 9:00:00 CDT ferrous No 325 mg, 1 Memor ia sulfate - tab, l 15:00: Route: PO, Drug form: ECTAB, Daily, Dosing Weight 64.545, kg, Start date: 10/29/16 9:00: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, Duration: 30 day, Stop date: 11/27/16 9:00:00 CDT Vitamin D3 No Notes: Memor ia 3-07 Same as: l 15:00: Vitamin D3 Aspirin No Notes: Do Memor ia 3-07 not crush l 15:00: or chew. Williams (Same As: Ecotrin) Sertraline No Notes: Memor ia 3-07 (Same as: l 15:00: Zoloft) Ramipril No Notes: Memoria 3-07 (Same l 15:00: as:Altace) aspirin 81 No Notes: Do Me moria mg tablet, 3- not crush l enteric 15:00: or chew. Galen n coated (Same As: Ecotrin) clopidogrel No 75 mg, Arturo sony 10-29 Route: PO, l 15:00: Drug form: 00 TAB, Daily, Dosing Weight 64.545, kg, Start date: 10/29/16 9:00: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, Duration: 30 day, Stop date: 11/27/16 9:00:00 CDT Magnesium No Notes: Memori a Oxide 10-29 (Same as: l 15:00: Mag-Ox 400) Magnesium oxide 602jb=746t g elemental magnesium Dose=____m g magnesium oxide (___mg elemental magnesium) Folic Acid No 0.8 mg, 2 Me moria - tab, l 15:00: Route: PO, Drug form: TAB, Daily, Dosing Weight 64.545, kg, Start date: 10/29/16 9:00: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, Duration: 30 day, Stop date: 11/27/16 9:00:00 CDT ferrous No 325 mg, 1 Memor ia sulfate 10-29 tab, l 15:00: Route: PO, Drug form: ECTAB, Daily, Dosing Weight 64.545, kg, Start date: 10/29/16 9:00: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, Duration: 30 day, Stop date: 11/27/16 9:00:00 [...] 3-07 Route: PO, l 15:00: Drug form: Williams 00 TAB, Daily, Dosing Weight 64.545, kg, Start date: 10/29/16 9:00: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, Duration: 30 day, Stop date: 11/27/16 9:00:00 CDT Magnesium No Notes: Memori a Oxide 10-29 (Same as: l 15:00: Mag-Ox 400) Magnesium oxide 361hx=552r g elemental magnesium Dose=____m g magnesium oxide (___mg elemental magnesium) Folic Acid No 0.8 mg, 2 Me moria - tab, l 15:00: Route: PO, Drug form: TAB, Daily, Dosing Weight 64.545, kg, Start date: 10/29/16 9:00: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, Duration: 30 day, Stop date: 11/27/16 9:00:00 CDT ferrous No 325 mg, 1 Memor ia sulfate - tab, l 15:00: Route: PO, Drug form: ECTAB, Daily, Dosing Weight 64.545, kg, Start date: 10/29/16 9:00: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, Duration: 30 day, Stop date: 11/27/16 9:00:00 CDT Vitamin D3 No Notes: Memor ia 3-07 Same as: l 15:00: Vitamin D3 Aspirin No Notes: Do Memor ia 3-07 not crush l 15:00: or chew. Williams (Same As: Ecotrin) Sertraline No Notes: Memor ia 3-07 (Same as: l 15:00: Zoloft) Ramipril No Notes: Memoria 3-07 (Same l 15:00: as:Altace) aspirin 81 No Notes: Do Me moria mg tablet, 3-07 not crush l enteric 15:00: or chew. Galen n coated (Same As: Ecotrin) clopidogrel No 75 mg, Arturo sony 3-07 Route: PO, l 15:00: Drug form: Williams 00 TAB, Daily, Dosing Weight 64.545, kg, Start date: 10/29/16 9:00: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, Duration: 30 day, Stop date: 11/27/16 9:00:00 CDT Magnesium No Notes: Memori a Oxide 3-07 (Same as: l 15:00: Mag-Ox 400) Magnesium oxide 139sm=624c g elemental magnesium Dose=____m g magnesium oxide (___mg elemental magnesium) Folic Acid No 0.8 mg, 2 Me moria 3-07 tab, l 15:00: Route: PO, Drug form: TAB, Daily, Dosing Weight 64.545, kg, Start date: 10/29/16 9:00: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, Duration: 30 day, Stop date: 11/27/16 9:00:00 CDT ferrous No 325 mg, 1 Memor ia sulfate - tab, l 15:00: Route: PO, Drug form: ECTAB, Daily, Dosing Weight 64.545, kg, Start date: 10/29/16 9:00: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, Duration: 30 day, Stop date: 11/27/16 9:00:00 [...] 3-07 Route: PO, l 15:00: Drug form: Williams 00 TAB, Daily, Dosing Weight 64.545, kg, Start date: 10/29/16 9:00: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, Duration: 30 day, Stop date: 11/27/16 9:00:00 CDT Magnesium No Notes: Memori a Oxide 3-07 (Same as: l 15:00: Mag-Ox 400) Magnesium oxide 925mw=412i g elemental magnesium Dose=____m g magnesium oxide (___mg elemental magnesium) Folic Acid No 0.8 mg, 2 Me moria 3-07 tab, l 15:00: Route: PO, Drug form: TAB, Daily, Dosing Weight 64.545, kg, Start date: 10/29/16 9:00: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, Duration: 30 day, Stop date: 11/27/16 9:00:00 CDT ferrous No 325 mg, 1 Mem[facility] sulfate 3-07 tab, l 15:00: Route: PO, Kevin 00 Drug form: ECTAB, Daily, Dosing Weight 64.545, kg, Start date: 10/29/16 9:00: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, Duration: 30 day, Stop date: 11/27/16 9:00:00 [...] Memoria 3-07 microgram, l 12:30: 1 tab, Williams 00 Route: PO, Drug form: TAB, Q630AM, Dosing Weight 64.545, kg, Start date: 10/29/16 6:30: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, Duration: 30 day, Stop date: 11/27/16 6:30:00 CDT Synthroid 2016-0 No 75 Memoria 3-07 microgram, l 12:30: 1 tab, Williams 00 Route: PO, Drug form: TAB, Q630AM, Dosing Weight 64.545, kg, Start date: 10/29/16 6:30: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, Duration: 30 day, Stop date: 11/27/16 6:30:00 CDT Synthroid 2017-0 No 75 Memoria 3-07 microgram, l 12:30: 1 tab, Kevin 00 Route: PO, Drug form: TAB, Q630AM, Dosing Weight 64.545, kg, Start date: 10/29/16 6:30: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, Duration: 30 day, Stop date: 11/27/16 6:30:00 CDT Synthroid 2017-0 No 75 Memoria 3-07 microgram, l 12:30: 1 tab, Kevin 00 Route: PO, Drug form: TAB, Q630AM, Dosing Weight 64.545, kg, Start date: 10/29/16 6:30: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, Duration: 30 day, Stop date: 11/27/16 6:30:00 CDT Synthroid 2017-0 No 75 Memoria 3-07 microgram, l 12:30: 1 tab, Kevin Route: PO, Drug form: TAB, Q630AM, Dosing Weight 64.545, kg, Start date: 10/29/16 6:30: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, Duration: 30 day, Stop date: 11/27/16 6:30:00 CDT Synthroid 2017-0 No 75 Memoria 3-07 microgram, l 12:30: 1 tab, Kevin 00 Route: PO, Drug form: TAB, Q630AM, Dosing Weight 64.545, kg, Start date: 10/29/16 6:30: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, Duration: 30 day, Stop date: 11/27/16 6:30:00 CDT Synthroid 2017-0 No 75 Memoria 3-07 microgram, l 12:30: 1 tab, Kevin 00 Route: PO, Drug form: TAB, Q630AM, Dosing Weight 64.545, kg, Start date: 10/29/16 6:30: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, Duration: 30 day, Stop date: 11/27/16 6:30:00 CDT Synthroid 2017-0 No 75 Memoria 3-07 microgram, l 12:30: 1 tab, Williams 00 Route: PO, Drug form: TAB, Q630AM, Dosing Weight 64.545, kg, Start date: 10/29/16 6:30: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, Duration: 30 day, Stop date: 11/27/16 6:30:00 CDT Synthroid 2017-0 No 75 Memoria 3-07 microgram, l 12:30: 1 tab, Williams 00 Route: PO, Drug form: TAB, Q630AM, Dosing Weight 64.545, kg, Start date: 10/29/16 6:30: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, Duration: 30 day, Stop date: 11/27/16 6:30:00 CDT Synthroid 2017-0 No 75 Memoria 3-07 microgram, l 12:30: 1 tab, Kevin 00 Route: PO, Drug form: TAB, Q630AM, Dosing Weight 64.545, kg, Start date: 10/29/16 6:30: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, Duration: 30 day, Stop date: 11/27/16 6:30:00 CDT Synthroid 2017-0 No 75 Memoria 3-07 microgram, l 12:30: 1 tab, Kevin 00 Route: PO, Drug form: TAB, Q630AM, Dosing Weight 64.545, kg, Start date: 10/29/16 6:30: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, Duration: 30 day, Stop date: 11/27/16 6:30:00 CDT Synthroid 2017-0 No 75 Memoria 3-07 microgram, l 12:30: 1 tab, Route: PO, Drug form: TAB, Q630AM, Dosing Weight 64.545, kg, Start date: 10/29/16 6:30: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, Duration: 30 day, Stop date: 11/27/16 6:30:00 CDT Synthroid 2017-0 No 75 Memoria 3-07 microgram, l 12:30: 1 tab, Williams 00 Route: PO, Drug form: TAB, Q630AM, Dosing Weight 64.545, kg, Start date: 10/29/16 6:30: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, Duration: 30 day, Stop date: 11/27/16 6:30:00 CDT Ticagrelor 2017-0 No Notes: [facility] 3-07 (Same as: l 12:00: Brilinta) Ticagrelor 2017-0 No Notes: Mem[facility] ia 3-07 (Same as: l 12:00: Brilinta) Kevin 00 Ticagrelor 2017-0 No Notes: [facility] ia 3-07 (Same as: l 12:00: Brilinta) Kevin 00 Ticagrelor 2017-0 No Notes: Mem[facility] ia 3-07 (Same as: l 12:00: Brilinta) Williams Ticagrelor 2017-0 No Notes: Memor ia 3-07 (Same as: l 12:00: Brilinta) Williams Ticagrelor 2017-0 No Notes: Mem[facility] ia 3-07 (Same as: l 12:00: Brilinta) Kevin Ticagrelor 2017-0 No Notes: Mem[facility] ia 3-07 (Same as: l 12:00: Brilinta) Kevin Ticagrelor 2017-0 No Notes: [facility] ia 3-07 (Same as: l 12:00: Brilinta) Williams Ticagrelor 2017-0 No Notes: Mem[facility] ia 3-07 (Same as: l 12:00: Brilinta) Kevin Ticagrelor 2017-0 No Notes: [facility] ia 3-07 (Same as: l 12:00: Brilinta) Kevin Ticagrelor 2017-0 No Notes: [facility] ia 3-07 (Same as: l 12:00: Brilinta) Kevin Ticagrelor 2017-0 No Notes: [facility] 3-07 (Same as: l 12:00: Brilinta) Kevin Ticagrelor 2017-0 No Notes: [facility] ia 3-07 (Same as: l 12:00: Brilinta) Kevin ticagrelor 2017-0 No Notes: [facility] 3-07 (Same as: l 04:00: Brilinta) Kevin ticagrelor 2017-0 No Notes: [facility] ia 3-07 (Same as: l 04:00: Brilinta) Kevin ticagrelor 2017-0 No Notes: [facility] ia 3-07 (Same as: l 04:00: Brilinta) Kevin ticagrelor 2017-0 No Notes: [facility] ia 3-07 (Same as: l 04:00: Brilinta) Williams ticagrelor 2017-0 No Notes: [facility] ia 3-07 (Same as: l 04:00: Brilinta) Williams ticagrelor 2017-0 No Notes: [facility] ia 3-07 (Same as: l 04:00: Brilinta) Williams ticagrelor 2017-0 No Notes: [facility] ia 3-07 (Same as: l 04:00: Brilinta) Williams ticagrelor 2016-0 No Notes: Mem[facility] ia 3-07 [...] ia 3-07 (Same as: l 04:00: Brilinta) Williams ticagrelor 2016-0 No Notes: Mem[facility] ia 3-07 (Same as: l 04:00: Brilinta) Williams Saline 0 No Notes: [facility] Flush 0.9% 3-07 (Same as: l 03:00: BD Williams 00 Posiflush) Brilinta 0 No 60 mg, Memoria 3-07 Route: PO, l 03:00: Drug form: Kevin 00 TAB, Q12H, Dosing Weight 64.545, kg, Start date: 10/28/16 21:00: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, Duration: 30 day, Stop date: 11/27/16 9:00:00 CDT Saline 2016-0 No Notes: [facility] Flush 0.9% 3-07 (Same as: l 03:00: BD Kevin 00 Posiflush) Brilinta 0 No 60 mg, Memoria 3-07 Route: PO, l 03:00: Drug form: Kevin 00 TAB, Q12H, Dosing Weight 64.545, kg, Start date: 10/28/16 21:00: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, Duration: 30 day, Stop date: 11/27/16 9:00:00 CDT Saline 2017-0 No Notes: [facility] Flush 0.9% 3-07 (Same as: l 03:00: BD Williams 00 Posiflush) Brilinta 2016-0 No 60 mg, Memoria 3-07 Route: PO, l 03:00: Drug form: Williams 00 TAB, Q12H, Dosing Weight 64.545, kg, Start date: 10/28/16 21:00: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, Duration: 30 day, Stop date: 11/27/16 9:00:00 CDT Saline 2017-0 No Notes: [facility] Flush 0.9% 3-07 (Same as: l 03:00: BD Williams 00 Posiflush) Brilinta 2016-0 No 60 mg, Memoria 3-07 Route: PO, l 03:00: Drug form: Williams 00 TAB, Q12H, Dosing Weight 64.545, kg, Start date: 10/28/16 21:00: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, Duration: 30 day, Stop date: 11/27/16 9:00:00 CDT Saline 2017-0 No Notes: [facility] Flush 0.9% 3-07 (Same as: l 03:00: BD Williams 00 Posiflush) Brilinta 0 No 60 mg, Memoria 3-07 Route: PO, l 03:00: Drug form: Williams 00 TAB, Q12H, Dosing Weight 64.545, kg, Start date: 10/28/16 21:00: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, Duration: 30 day, Stop date: 11/27/16 9:00:00 CDT Saline 2017-0 No Notes: [facility] Flush 0.9% 3-07 (Same as: l 03:00: BD Kevin 00 Posiflush) Brilinta 0 No 60 mg, Memoria 3-07 Route: PO, l 03:00: Drug form: Kevin 00 TAB, Q12H, Dosing Weight 64.545, kg, Start date: 10/28/16 21:00: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, Duration: 30 day, Stop date: 11/27/16 9:00:00 CDT Saline 2017-0 No Notes: [facility] Flush 0.9% 3-07 (Same as: l 03:00: BD Williams 00 Posiflush) Brilinta 2016-0 No 60 mg, Memoria 3-07 Route: PO, l 03:00: Drug form: Kevin 00 TAB, Q12H, Dosing Weight 64.545, kg, Start date: 10/28/16 21:00: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, Duration: 30 day, Stop date: 11/27/16 9:00:00 CDT Saline 20170 No Notes: [facility] Flush 0.9% 3-07 (Same as: l 03:00: BD Kevin 00 Posiflush) Brilinta 2016-0 No 60 mg, Memoria 3-07 Route: PO, l 03:00: Drug form: Williams 00 TAB, Q12H, Dosing Weight 64.545, kg, Start date: 10/28/16 21:00: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, Duration: 30 day, Stop date: 11/27/16 9:00:00 CDT Saline 2017-0 No Notes: [facility] Flush 0.9% 3-07 (Same as: l 03:00: BD Williams 00 Posiflush) Brilinta 0 No 60 mg, Memoria 3-07 Route: PO, l 03:00: Drug form: Kevin 00 TAB, Q12H, Dosing Weight 64.545, kg, Start date: 10/28/16 21:00: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, Duration: 30 day, Stop date: 11/27/16 9:00:00 CDT Saline 0 No Notes: [facility] Flush 0.9% 3-07 (Same as: l 03:00: BD Kevin 00 Posiflush) Brilinta 2016-0 No 60 mg, Memoria 3-07 Route: PO, l 03:00: Drug form: Kevin 00 TAB, Q12H, Dosing Weight 64.545, kg, Start date: 10/28/16 21:00: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, Duration: 30 day, Stop date: 11/27/16 9:00:00 CDT Saline 2016-0 No Notes: [facility] Flush 0.9% 3-07 (Same as: l 03:00: BD Williams 00 Posiflush) Brilinta 2016-0 No 60 mg, Memoria 3-07 Route: PO, l 03:00: Drug form: Kevin 00 TAB, Q12H, Dosing Weight 64.545, kg, Start date: 10/28/16 21:00: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, Duration: 30 day, Stop date: 11/27/16 9:00:00 CDT Saline No Notes: [facility] Flush 0.9% 3-07 (Same as: l 03:00: BD Kevin 00 Posiflush) Brilinta No 60 mg, Memoria 3-07 Route: PO, l 03:00: Drug form: Williams 00 TAB, Q12H, Dosing Weight 64.545, kg, Start date: 10/28/16 21:00: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, Duration: 30 day, Stop date: 11/27/16 9:00:00 CDT Saline No Notes: [facility] Flush 0.9% 3-07 (Same as: l 03:00: BD Kevin 00 Posiflush) Brilinta No 60 mg, Memoria 3-07 Route: PO, l 03:00: Drug form: Williams 00 TAB, Q12H, Dosing Weight 64.545, kg, Start date: 10/28/16 21:00: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, Duration: 30 day, Stop date: 11/27/16 9:00:00 CDT Phenergan No Notes: Do Mem oria 3-07 not give l 01:52: IV push. Kevin (Same as: Phenergan) Phenergan No Notes: Do Mem oria 3-07 not give l 01:52: IV push. Williams (Same as: Phenergan) Phenergan No Notes: Do Mem oria 3-07 not give l 01:52: IV push. Kevin 00 (Same as: Phenergan) Phenergan No Notes: Do Mem oria 3-07 not give l 01:52: IV push. Williams 00 (Same as: Phenergan) Phenergan No Notes: Do Mem oria 3-07 not give l 01:52: IV push. Williams 00 (Same as: Phenergan) Phenergan No Notes: Do Mem oria 3-07 not give l 01:52: IV push. Kevin 00 (Same as: Phenergan) Phenergan No Notes: Do Mem oria 3-07 not give l 01:52: IV push. Kevin 00 (Same as: Phenergan) Phenergan No Notes: Do Mem oria 3-07 not give l 01:52: IV push. Williams 00 (Same as: Phenergan) Phenergan No Notes: Do Mem oria 3-07 not give l 01:52: IV push. Williams 00 (Same as: Phenergan) Phenergan No Notes: Do Mem oria 3-07 not give l 01:52: IV push. Kevin 00 (Same as: Phenergan) Phenergan No Notes: Do Mem oria 3-07 not give l 01:52: IV push. Williams 00 (Same as: Phenergan) Phenergan No Notes: Do Mem oria 3-07 not give l 01:52: IV push. Kevin 00 (Same as: Phenergan) Phenergan No Notes: Do Mem oria 3-07 not give l 01:52: IV push. Kevin 00 (Same as: Phenergan) Hydralazine No Notes: [...] sony 3-07 (Same as: l 00:36: Apresoline Williams 00 ) Push over 5 minutes Hydralazine No Notes: Arturo sony 3-07 (Same as: l 00:36: Apresoline Williams 00 ) Push over 5 minutes Hydralazine No Notes: Arturo sony 3-07 (Same as: l 00:36: Apresoline Williams 00 ) Push over 5 minutes Hydralazine 0 No Notes: Arturo sony 3-07 (Same as: l 00:36: Apresoline Kevin 00 ) Push over 5 minutes Hydralazine No Notes: Arturo sony 3-07 (Same as: l 00:36: Apresoline Williams 00 ) Push over 5 minutes Hydralazine No Notes: Arturo sony 3-07 (Same as: l 00:36: Apresoline Williams 00 ) Push over 5 minutes Hydralazine No Notes: Arturo sony 3-07 (Same as: l 00:36: Apresoline Williams ) Push over 5 minutes Hydralazine No Notes: Arturo sony 3-07 (Same as: l 00:36: Apresoline Williams 00 ) Push over 5 minutes Hydralazine No Notes: Arturo sony 3-07 (Same as: l 00:36: Apresoline Kevin 00 ) Push over 5 minutes Hydralazine No Notes: Arturo sony 3-07 (Same as: l 00:36: Apresoline Kevin ) Push over 5 minutes Saline No Notes: [facility] Flush 0.9% 10-28 (Same as: l 23:59: BD Williams Posiflush) clopidogrel No 300 mg, Mem oria 10-28 Route: PO, l 23:59: Drug form: Kevin 00 TAB, ONCE, Dosing Weight 64.545, kg, Priority: NOW, Start date: 10/28/16 17:59: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, Stop date: 10/28/16 17:59: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 Nitroglycer No Notes: Arturo sony in 10-28 (Same l 23:59: as:Nitroqu Kevin ick, Nitrostat) "Do Not Crush" Sublingual tablet Acetaminoph No Notes: Do M emoria en 10-28 not exceed l 23:59: 4 gm/day. Kevin 00 (Same as: Tylenol) Sodium No 25 mL, Memoria Chloride 10-28 Rate: 20 l 0.154 23:59: ml/hr, Williams MEQ/ML 00 Infuse Injectable over: 1.3 Solution hr, Route: IV, Dosing Weight 64.545 kg, Total Volume: 25, Start date: 10/28/16 17:59: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, Duration: 24 hr, Stop date: 10/29/16 17:58: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 Saline 0 No Notes: [facility] Flush 0.9% - (Same as: l 23:59: BD Kevin 00 Posiflush) clopidogrel No 300 mg, Mem oria 10-28 Route: PO, l 23:59: Drug form: Williams 00 TAB, ONCE, Dosing Weight 64.545, kg, Priority: NOW, Start date: 10/28/16 17:59: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, Stop date: 10/28/16 17:59: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 Nitroglycer 0 No Notes: Arturo sony in 10-28 (Same l 23:59: as:Nitroqu Williams 00 ick, Nitrostat) "Do Not Crush" Sublingual tablet Acetaminoph No Notes: Do M emoria en 10-28 not exceed l 23:59: 4 gm/day. Kevin 00 (Same as: Tylenol) Sodium No 25 mL, Mem[facility] Chloride 10-28 Rate: 20 l 0.154 23:59: ml/hr, Kevin MEQ/ML 00 Infuse Injectable over: 1.3 Solution hr, Route: IV, Dosing Weight 64.545 kg, Total Volume: 25, Start date: 10/28/16 17:59: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, Duration: 24 hr, Stop date: 10/29/16 17:58: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 Saline 0 No Notes: [facility] Flush 0.9% 10-28 (Same as: l 23:59: BD Kevin 00 Posiflush) clopidogrel No 300 mg, Mem oria 10-28 Route: PO, l 23:59: Drug form: Kevin 00 TAB, ONCE, Dosing Weight 64.545, kg, Priority: NOW, Start date: 10/28/16 17:59: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, Stop date: 10/28/16 17:59: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 Nitroglycer 0 No Notes: Arturo sony in 10-28 (Same l 23:59: as:Nitroqu Kevin 00 ick, Nitrostat) "Do Not Crush" Sublingual tablet Acetaminoph 0 No Notes: Do M emoria en 10-28 not exceed l 23:59: 4 gm/day. Kevin 00 (Same as: Tylenol) Sodium No 25 mL, Memoria Chloride 10-28 Rate: 20 l 0.154 23:59: ml/hr, Williams MEQ/ML 00 Infuse Injectable over: 1.3 Solution hr, Route: IV, Dosing Weight 64.545 kg, Total Volume: 25, Start date: 10/28/16 17:59: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, Duration: 24 hr, Stop date: 10/29/16 17:58: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 Saline No Notes: [facility]oria Flush 0.9% 10-28 (Same as: l 23:59: BD Kevin 00 Posiflush) clopidogrel No 300 mg, Mem oria 10-28 Route: PO, l 23:59: Drug form: Kevin 00 TAB, ONCE, Dosing Weight 64.545, kg, Priority: NOW, Start date: 10/28/16 17:59: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, Stop date: 10/28/16 17:59: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 Nitroglycer No Notes: Arturo sony in 10-28 (Same l 23:59: as:Nitroqu Kevin 00 ick, Nitrostat) "Do Not Crush" Sublingual tablet Acetaminoph No Notes: Do M emoria en 10-28 not exceed l 23:59: 4 gm/day. Williams 00 (Same as: Tylenol) Sodium No 25 mL, Memoria Chloride 10-28 Rate: 20 l 0.154 23:59: ml/hr, Kevin MEQ/ML 00 Infuse Injectable over: 1.3 Solution hr, Route: IV, Dosing Weight 64.545 kg, Total Volume: 25, Start date: 10/28/16 17:59: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, Duration: 24 hr, Stop date: 10/29/16 17:58: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 Saline No Notes: [facility] Flush 0.9% 10-28 (Same as: l 23:59: BD Kevin 00 Posiflush) clopidogrel No 300 mg, Mem oria 10-28 Route: PO, l 23:59: Drug form: Kevin 00 TAB, ONCE, Dosing Weight 64.545, kg, Priority: NOW, Start date: 10/28/16 17:59: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, Stop date: 10/28/16 17:59: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 Nitroglycer No Notes: Arturo sony in 10-28 (Same l 23:59: as:Nitroqu Williams 00 ick, Nitrostat) "Do Not Crush" Sublingual tablet Acetaminoph No Notes: Do M emoria en 10-28 not exceed l 23:59: 4 gm/day. Kevin 00 (Same as: Tylenol) Sodium No 25 mL, Memoria Chloride 10-28 Rate: 20 l 0.154 23:59: ml/hr, Kevin MEQ/ML 00 Infuse Injectable over: 1.3 Solution hr, Route: IV, Dosing Weight 64.545 kg, Total Volume: 25, Start date: 10/28/16 17:59: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, Duration: 24 hr, Stop date: 10/29/16 17:58: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 Saline No Notes: Memoria Flush 0.9% 10-28 (Same as: l 23:59: BD Williams 00 Posiflush) clopidogrel No 300 mg, Mem oria 10-28 Route: PO, l 23:59: Drug form: Williams 00 TAB, ONCE, Dosing Weight 64.545, kg, Priority: NOW, Start date: 10/28/16 17:59: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, Stop date: 10/28/16 17:59: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 Nitroglycer No Notes: Arturo sony in 10-28 [...] Total Volume: 25, Start date: 10/28/16 17:59: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, Duration: 24 hr, Stop date: 10/29/16 17:58: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 Saline No Notes: Memoria Flush 0.9% 10-28 (Same as: l 23:59: BD Williams 00 Posiflush) clopidogrel No 300 mg, Mem oria 10-28 Route: PO, l 23:59: Drug form: Kevin 00 TAB, ONCE, Dosing Weight 64.545, kg, Priority: NOW, Start date: 10/28/16 17:59: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, Stop date: 10/28/16 17:59: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 Nitroglycer No Notes: Arturo sony in 10-28 (Same l 23:59: as:Nitroqu Kevin 00 ick, Nitrostat) "Do Not Crush" Sublingual tablet Acetaminoph No Notes: Do M emoria en 10-28 not exceed l 23:59: 4 gm/day. Williams 00 (Same as: Tylenol) Sodium No 25 mL, Memoria Chloride 10-28 Rate: 20 l 0.154 23:59: ml/hr, Kevin MEQ/ML 00 Infuse Injectable over: 1.3 Solution hr, Route: IV, Dosing Weight 64.545 kg, Total Volume: 25, Start date: 10/28/16 17:59: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, Duration: 24 hr, Stop date: 10/29/16 17:58: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 Saline No Notes: Memoria Flush 0.9% 10-28 (Same as: l 23:59: BD Williams 00 Posiflush) clopidogrel No 300 mg, Mem oria 10-28 Route: PO, l 23:59: Drug form: Williams 00 TAB, ONCE, Dosing Weight 64.545, kg, Priority: NOW, Start date: 10/28/16 17:59: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, Stop date: 10/28/16 17:59: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 Nitroglycer No Notes: Arturo sony in 10-28 (Same l 23:59: as:Nitroqu Williams 00 ick, Nitrostat) "Do Not Crush" Sublingual tablet Acetaminoph No Notes: Do M emoria en 10-28 not exceed l 23:59: 4 gm/day. Williams 00 (Same as: Tylenol) Sodium No 25 mL, Memoria Chloride 10-28 Rate: 20 l 0.154 23:59: ml/hr, Kevin MEQ/ML 00 Infuse Injectable over: 1.3 Solution hr, Route: IV, Dosing Weight 64.545 kg, Total Volume: 25, Start date: 10/28/16 17:59: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, Duration: 24 hr, Stop date: 10/29/16 17:58: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 Saline No Notes: Memoria Flush 0.9% 10-28 (Same as: l 23:59: BD Williams 00 Posiflush) clopidogrel No 300 mg, Mem oria 10-28 Route: PO, l 23:59: Drug form: Williams 00 TAB, ONCE, Dosing Weight 64.545, kg, Priority: NOW, Start date: 10/28/16 17:59: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, Stop date: 10/28/16 17:59: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 Nitroglycer No Notes: Arturo sony in 10-28 (Same l 23:59: as:Nitroqu Kevin 00 ick, Nitrostat) "Do Not Crush" Sublingual tablet Acetaminoph No Notes: Do M emoria en 10-28 not exceed l 23:59: 4 gm/day. Kevin 00 (Same as: Tylenol) Sodium No 25 mL, Memoria Chloride 10-28 Rate: 20 l 0.154 23:59: ml/hr, Williams MEQ/ML 00 Infuse Injectable over: 1.3 Solution hr, Route: IV, Dosing Weight 64.545 kg, Total Volume: 25, Start date: 10/28/16 17:59: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, Duration: 24 hr, Stop date: 10/29/16 17:58: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 Saline No Notes: Memoria Flush 0.9% 10-28 (Same as: l 23:59: BD Williams 00 Posiflush) clopidogrel No 300 mg, Mem oria 10-28 Route: PO, l 23:59: Drug form: Williams 00 TAB, ONCE, Dosing Weight 64.545, kg, Priority: NOW, Start date: 10/28/16 17:59: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, Stop date: 10/28/16 17:59: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 Nitroglycer No Notes: Arturo sony in 10-28 (Same l 23:59: as:Nitroqu Williams 00 ick, Nitrostat) "Do Not Crush" Sublingual tablet Acetaminoph No Notes: Do Curtis ahnria en 10-28 not exceed l 23:59: 4 gm/day. Williams 00 (Same as: Tylenol) Sodium No 25 mL, Memoria Chloride 10-28 Rate: 20 l 0.154 23:59: ml/hr, Williams MEQ/ML 00 Infuse Injectable over: 1.3 Solution hr, Route: IV, Dosing Weight 64.545 kg, Total Volume: 25, Start date: 10/28/16 17:59: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, Duration: 24 hr, Stop date: 10/29/16 17:58: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 Saline No Notes: Memoria Flush 0.9% 10-28 (Same as: l 23:59: BD Williams 00 Posiflush) clopidogrel No 300 mg, Mem oria 10-28 Route: PO, l 23:59: Drug form: Kevin 00 TAB, ONCE, Dosing Weight 64.545, kg, Priority: NOW, Start date: 10/28/16 17:59: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, Stop date: 10/28/16 17:59: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 Nitroglycer No Notes: Arturo sony in 10-28 (Same l 23:59: as:Nitroqu ick, Nitrostat) "Do Not Crush" Sublingual tablet Acetaminoph No Notes: Do Curtis ahnria en 10-28 not exceed l 23:59: 4 gm/day. Williams (Same as: Tylenol) Sodium No 25 mL, Memoria Chloride 10-28 Rate: 20 l 0.154 23:59: ml/hr, Williams MEQ/ML 00 Infuse Injectable over: 1.3 Solution hr, Route: IV, Dosing Weight 64.545 kg, Total Volume: 25, Start date: 10/28/16 17:59: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, Duration: 24 hr, Stop date: 10/29/16 17:58: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 Saline No Notes: Memoria Flush 0.9% 10-28 (Same as: l 23:59: BD Williams 00 Posiflush) clopidogrel No 300 mg, Mem oria 10-28 Route: PO, l 23:59: Drug form: Kevin 00 TAB, ONCE, Dosing Weight 64.545, kg, Priority: NOW, Start date: 10/28/16 17:59: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, Stop date: 10/28/16 17:59: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 Nitroglycer No Notes: Arturo sony in 10-28 [...] Total Volume: 25, Start date: 10/28/16 17:59: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, Duration: 24 hr, Stop date: 10/29/16 17:58: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 Saline No Notes: Memoria Flush 0.9% 10-28 (Same as: l 23:59: BD Williams 00 Posiflush) clopidogrel No 300 mg, Mem oria 10-28 Route: PO, l 23:59: Drug form: Kevin 00 TAB, ONCE, Dosing Weight 64.545, kg, Priority: NOW, Start date: 10/28/16 17:59: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, Stop date: 10/28/16 17:59: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 Nitroglycer No Notes: Arturo sony in 10-28 (Same l 23:59: as:Nitroqu Kevin 00 ick, Nitrostat) "Do Not Crush" Sublingual tablet Acetaminoph No Notes: Do M emoria en 10-28 not exceed l 23:59: 4 gm/day. Williams 00 (Same as: Tylenol) Sodium No 25 mL, Memoria Chloride 10-28 Rate: 20 l 0.154 23:59: ml/hr, Williams MEQ/ML 00 Infuse Injectable over: 1.3 Solution hr, Route: IV, Dosing Weight 64.545 kg, Total Volume: 25, Start date: 10/28/16 17:59: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, Duration: 24 hr, Stop date: 10/29/16 17:58: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 Midodrine No 2.5 mg, Memor ia 3-06 Route: PO, l 23:00: Drug form: Kevin 00 TAB, TID, Dosing Weight 64.545, kg, Start date: 10/28/16 17:00: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, Duration: 30 day, Stop date: 11/27/16 13:00:00 CDT oxybutynin No Notes: Memor ia 3-06 Same as: l 23:00: Ditropan) Triamcinolo No Notes: Arturo sony ne 3-06 (Same As: l Acetonide 23:00: Kenalog) Herm angela 0.001 MG/MG 00 Topical Ointment Midodrine No 2.5 mg, Memor ia 3-06 Route: PO, l 23:00: Drug form: Williams 00 TAB, TID, Dosing Weight 64.545, kg, Start date: 10/28/16 17:00: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, Duration: 30 day, Stop date: 11/27/16 13:00:00 [...] Weight 64.545, kg, Start date: 10/28/16 17:00: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, Duration: 30 day, Stop date: 11/27/16 13:00:00 [...] Weight 64.545, kg, Start date: 10/28/16 17:00: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, Duration: 30 day, Stop date: 11/27/16 13:00:00 [...] Weight 64.545, kg, Start date: 10/28/16 17:00: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, Duration: 30 day, Stop date: 11/27/16 13:00:00 CDT oxybutynin No Notes: Memor ia 3-06 Same as: l 23:00: Ditropan) Kevin 00 Triamcinolo No Notes: Arturo sony ne 3-06 (Same As: l Acetonide 23:00: Kenalog) Herm angela 0.001 MG/MG 00 Topical Ointment Midodrine No 2.5 mg, Memor ia 3-06 Route: PO, l 23:00: Drug form: Williams 00 TAB, TID, Dosing Weight 64.545, kg, Start date: 10/28/16 17:00: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, Duration: 30 day, Stop date: 11/27/16 13:00:00 CDT oxybutynin No Notes: Memor ia 3-06 Same as: l 23:00: Ditropan) Williams 00 Triamcinolo No Notes: Arturo sony ne 3-06 (Same As: l Acetonide 23:00: Kenalog) Herm angela 0.001 MG/MG 00 Topical Ointment Midodrine No 2.5 mg, Memor ia 3-06 Route: PO, l 23:00: Drug form: Williams 00 TAB, TID, Dosing Weight 64.545, kg, Start date: 10/28/16 17:00: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, Duration: 30 day, Stop date: 11/27/16 13:00:00 CDT oxybutynin No Notes: Memor ia 3-06 Same as: l 23:00: Ditropan) Triamcinolo No Notes: Arturo sony ne 3-06 (Same As: l Acetonide 23:00: Kenalog) Herm angela 0.001 MG/MG 00 Topical Ointment Midodrine No 2.5 mg, Memor ia 3-06 Route: PO, l 23:00: Drug form: Williams 00 TAB, TID, Dosing Weight 64.545, kg, Start date: 10/28/16 17:00: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, Duration: 30 day, Stop date: 11/27/16 13:00:00 [...] Weight 64.545, kg, Start date: 10/28/16 17:00: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, Duration: 30 day, Stop date: 11/27/16 13:00:00 CDT oxybutynin 0 No Notes: Memor ia 3-06 Same as: l 23:00: Ditropan) Kevin 00 Triamcinolo No Notes: Arturo sony ne 3-06 (Same As: l Acetonide 23:00: Kenalog) Herm angela 0.001 MG/MG 00 Topical Ointment Midodrine No 2.5 mg, Memor ia 3-06 Route: PO, l 23:00: Drug form: Williams 00 TAB, TID, Dosing Weight 64.545, kg, Start date: 10/28/16 17:00: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, Duration: 30 day, Stop date: 11/27/16 13:00:00 CDT oxybutynin 0 No Notes: Memor ia 3-06 Same as: l 23:00: Ditropan) Triamcinolo No Notes: Arturo sony ne 3-06 (Same As: l Acetonide 23:00: Kenalog) Herm angela 0.001 MG/MG 00 Topical Ointment Midodrine No 2.5 mg, Memor ia 3-06 Route: PO, l 23:00: Drug form: Williams 00 TAB, TID, Dosing Weight 64.545, kg, Start date: 10/28/16 17:00: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, Duration: 30 day, Stop date: 11/27/16 13:00:00 CDT oxybutynin No Notes: Memor ia 3-06 Same as: l 23:00: Ditropan) Triamcinolo No Notes: Arturo sony ne 3-06 (Same As: l Acetonide 23:00: Kenalog) Herm angela 0.001 MG/MG 00 Topical Ointment Midodrine No 2.5 mg, Memor ia 3-06 Route: PO, l 23:00: Drug form: Williams 00 TAB, TID, Dosing Weight 64.545, kg, Start date: 10/28/16 17:00: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, Duration: 30 day, Stop date: 11/27/16 13:00:00 CDT oxybutynin No Notes: Memor ia 3-06 Same as: l 23:00: Ditropan) Triamcinolo No Notes: Arturo sony ne 3-06 (Same As: l Acetonide 23:00: Kenalog) Herm angela 0.001 MG/MG 00 Topical Ointment Midodrine 0 No 2.5 mg, Memor ia 3-06 Route: PO, l 23:00: Drug form: Williams 00 TAB, TID, Dosing Weight 64.545, kg, Start date: 10/28/16 17:00: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, Duration: 30 day, Stop date: 11/27/16 13:00:00 CDT oxybutynin 2017-0 No Notes: Memor ia 3-06 Same as: l 23:00: Ditropan) Kevin 00 Triamcinolo No Notes: Arturo sony ne 3-06 (Same As: l Acetonide 23:00: Kenalog) Herm angela 0.001 MG/MG 00 Topical Ointment lansoprazol No Notes: Arturo sony e 3-06 Take 1 l 22:30: hour Williams 00 before or 2 hours after meal; [...] e 3-06 Take 1 l 22:30: hour Williams 00 before or 2 hours after meal; Expires in 14 days. Shake well before use. (Same as:Prevmichelle d) Compound ed Product - formulatio n not commercial ly available* * lansoprazol No Notes: Arturo sony e 3-06 Take 1 l 22:30: hour Williams 00 before or 2 hours after meal; Expires in 14 days. Shake well before use. (Same as:Prevaci d) Compound ed Product - formulatio n not commercial ly available* * lansoprazol No Notes: Arturo sony e 3-06 Take 1 l 22:30: hour Williams 00 before or 2 hours after meal; [...] e 3-06 Take 1 l 22:30: hour Williams 00 before or 2 hours after meal; Expires in 14 days. Shake well before use. (Same as:Prevaci d) Compound ed Product - formulatio n not commercial ly available* * lansoprazol No Notes: Arturo sony e 3-06 Take 1 l 22:30: hour Williams 00 before or 2 hours after meal; Expires in 14 days. Shake well before use. (Same as:Prevaci d) Compound ed Product - formulatio n not commercial ly available* * lansoprazol No Notes: Arturo sony e 3-06 Take 1 l 22:30: hour Williams 00 before or 2 hours after meal; Expires in 14 days. Shake well before use. (Same as:Prevaci d) Compound ed Product - formulatio n not commercial ly available* * lansoprazol No Notes: Arturo sony e 3-06 Take 1 l 22:30: hour Williams 00 before or 2 hours after meal; [...] e 3-06 Take 1 l 22:30: hour Williams 00 before or 2 hours after meal; [...] # 60 l tablet 22:09: tab, 0 Williams 00 Refill(s) aspirin 81 2017-0 Yes 81 [...] # 60 l tablet 22:09: tab, 0 Williams 00 Refill(s) aspirin 81 2017-0 Yes 81 mg, PO, M emoria mg tablet, 3-06 Daily, # l enteric 22:09: 120 tab, 0 Herm angela coated 00 Refill(s) ticagrelor 2017-0 Yes 60 mg, PO, M emoria 60 mg oral 10-28 Q12H, # 60 l tablet 22:09: tab, 0 Williams 00 Refill(s) aspirin 81 2017-0 Yes 81 mg, PO, M emoria mg tablet, 10-28 Daily, # l enteric 22:09: 120 tab, 0 Herm angela coated 00 Refill(s) ticagrelor 2017-0 Yes 60 mg, PO, M emoria 60 mg oral 10-28 Q12H, # 60 l tablet 22:09: tab, 0 Williams 00 Refill(s) aspirin 81 2017-0 Yes 81 [...] # 60 l tablet 22:09: tab, 0 Williams 00 Refill(s) aspirin 81 2017-0 Yes 81 [...] # 60 l tablet 22:09: tab, 0 Williams 00 Refill(s) aspirin 81 2017-0 Yes 81 mg, PO, M emoria mg tablet, - Daily, # l enteric 22:09: 120 tab, 0 Herm angela coated 00 Refill(s) ticagrelor 2017-0 Yes 60 mg, PO, M emoria 60 mg oral 10-28 Q12H, # 60 l tablet 22:09: tab, 0 Williams 00 Refill(s) Nitroglycer 2017-0 No 0.4 mg, 1 M emoria in 10-28 tab, l 22:00: Route: SL, Drug form: TAB, Q5Min, Dosing Weight 64.545, kg, PRN Chest Pain, Start date: 10/28/16 16:00: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, Duration: 3 doses or times, Stop date: Limited # of times Sodium 2017-0 No 750 mL, Memoria Chloride 10-28 Rate: 75 l 0.154 22:00: ml/hr, Williams MEQ/ML 00 Infuse Injectable over: 10 Solution hr, Route: IV, Dosing Weight 64.545 kg, Total Volume: 750, Start date: 10/28/16 16:00: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, Duration: 10 hr, Stop date: 10/29/16 1:59: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 Nitroglycer 2016-0 No 0.4 mg, 1 M emoria in 10-28 tab, l 22:00: Route: Drug form: TAB, Q5Min, Dosing Weight 64.545, kg, PRN Chest Pain, Start date: 10/28/16 16:00: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, Duration: 3 doses or times, Stop date: Limited # of times Sodium 2017-0 No 750 mL, Memoria Chloride 10-28 Rate: 75 l 0.154 22:00: ml/hr, Kevin MEQ/ML 00 Infuse Injectable over: 10 Solution hr, Route: IV, Dosing Weight 64.545 kg, Total Volume: 750, Start date: 10/28/16 16:00: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, Duration: 10 hr, Stop date: 10/29/16 1:59: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 Nitroglycer 2017-0 No 0.4 mg, 1 M emoria in 10-28 tab, l 22:00: Route: Kevin TANG Drug form: TAB, Q5Min, Dosing Weight 64.545, kg, PRN Chest Pain, Start date: 10/28/16 16:00: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, Duration: 3 doses or times, Stop date: Limited # of times Sodium 2017-0 No 750 mL, Memoria Chloride 10-28 Rate: 75 l 0.154 22:00: ml/hr, Kevin MEQ/ML 00 Infuse Injectable over: 10 Solution hr, Route: IV, Dosing Weight 64.545 kg, Total Volume: 750, Start date: 10/28/16 16:00: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, Duration: 10 hr, Stop date: 10/29/16 1:59: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 Nitroglycer 2017-0 No 0.4 mg, 1 M emoria in 10-28 tab, l 22:00: Route: Kevin TANG Drug form: TAB, Q5Min, Dosing Weight 64.545, kg, PRN Chest Pain, Start date: 10/28/16 16:00: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, Duration: 3 doses or times, Stop date: Limited # of times Sodium 2017-0 No 750 mL, Memoria Chloride 10-28 Rate: 75 l 0.154 22:00: ml/hr, Williams MEQ/ML 00 Infuse Injectable over: 10 Solution hr, Route: IV, Dosing Weight 64.545 kg, Total Volume: 750, Start date: 10/28/16 16:00: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, Duration: 10 hr, Stop date: 10/29/16 1:59: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 Nitroglycer 2017-0 No 0.4 mg, 1 M emoria in 10-28 tab, l 22:00: Route: Kevin TANG Drug form: TAB, Q5Min, Dosing Weight 64.545, kg, PRN Chest Pain, Start date: 10/28/16 16:00: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, Duration: 3 doses or times, Stop date: Limited # of times Sodium 2017-0 No 750 mL, Memoria Chloride 10-28 Rate: 75 l 0.154 22:00: ml/hr, Kevin MEQ/ML 00 Infuse Injectable over: 10 Solution hr, Route: IV, Dosing Weight 64.545 kg, Total Volume: 750, Start date: 10/28/16 16:00: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, Duration: 10 hr, Stop date: 10/29/16 1:59: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 Nitroglycer 2017-0 No 0.4 mg, 1 M emoria in 10-28 tab, l 22:00: Route: Kevin TANG Drug form: TAB, Q5Min, Dosing Weight 64.545, kg, PRN Chest Pain, Start date: 10/28/16 16:00: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, Duration: 3 doses or times, Stop date: Limited # of times Sodium 2017-0 No 750 mL, Memoria Chloride 10-28 Rate: 75 l 0.154 22:00: ml/hr, Williams MEQ/ML Infuse Injectable over: 10 Solution hr, Route: IV, Dosing Weight 64.545 kg, Total Volume: 750, Start date: 10/28/16 16:00: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, Duration: 10 hr, Stop date: 10/29/16 1:59: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 Nitroglycer 2017-0 No 0.4 mg, 1 M emoria in 10-28 tab, l 22:00: Route: Kevin TANG Drug form: TAB, Q5Min, Dosing Weight 64.545, kg, PRN Chest Pain, Start date: 10/28/16 16:00: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, Duration: 3 doses or times, Stop date: Limited # of times Sodium 2017-0 No 750 mL, Memoria Chloride 10-28 Rate: 75 l 0.154 22:00: ml/hr, Kevin MEQ/ML Infuse Injectable over: 10 Solution hr, Route: IV, Dosing Weight 64.545 kg, Total Volume: 750, Start date: 10/28/16 16:00: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, Duration: 10 hr, Stop date: 10/29/16 1:59: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 Nitroglycer 2017-0 No 0.4 mg, 1 M emoria in 10-28 tab, l 22:00: Route: Laisha TANG Drug form: TAB, Q5Min, Dosing Weight 64.545, kg, PRN Chest Pain, Start date: 10/28/16 16:00: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, Duration: 3 doses or times, Stop date: Limited # of times Sodium 2017-0 No 750 mL, Memoria Chloride 10-28 Rate: 75 l 0.154 22:00: ml/hr, Kevin MEQ/ML 00 Infuse Injectable over: 10 Solution hr, Route: IV, Dosing Weight 64.545 kg, Total Volume: 750, Start date: 10/28/16 16:00: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, Duration: 10 hr, Stop date: 10/29/16 1:59: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 Nitroglycer 2017-0 No 0.4 mg, 1 M emoria in 10-28 tab, l 22:00: Route: Kevin TANG Drug form: TAB, Q5Min, Dosing Weight 64.545, kg, PRN Chest Pain, Start date: 10/28/16 16:00: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, Duration: 3 doses or times, Stop date: Limited # of times Sodium 2017-0 No 750 mL, Memoria Chloride 10-28 Rate: 75 l 0.154 22:00: ml/hr, Williams MEQ/ML Infuse Injectable over: 10 Solution hr, Route: IV, Dosing Weight 64.545 kg, Total Volume: 750, Start date: 10/28/16 16:00: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, Duration: 10 hr, Stop date: 10/29/16 1:59: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 Nitroglycer 2017-0 No 0.4 mg, 1 M emoria in 10-28 tab, l 22:00: Route: Kevin TANG Drug form: TAB, Q5Min, Dosing Weight 64.545, kg, PRN Chest Pain, Start date: 10/28/16 16:00: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, Duration: 3 doses or times, Stop date: Limited # of times Sodium 2017-0 No 750 mL, Memoria Chloride 10-28 Rate: 75 l 0.154 22:00: ml/hr, Kevin MEQ/ML 00 Infuse Injectable over: 10 Solution hr, Route: IV, Dosing Weight 64.545 kg, Total Volume: 750, Start date: 10/28/16 16:00: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, Duration: 10 hr, Stop date: 10/29/16 1:59: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 Nitroglycer 2017-0 No 0.4 mg, 1 M emoria in 10-28 tab, l 22:00: Route: SLKevin 00 Drug form: TAB, Q5Min, Dosing Weight 64.545, kg, PRN Chest Pain, Start date: 10/28/16 16:00: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, Duration: 3 doses or times, Stop date: Limited # of times Sodium 2017-0 No 750 mL, Memoria Chloride 3 Rate: 75 l 0.154 22:00: ml/hr, Kevin MEQ/ML 00 Infuse Injectable over: 10 Solution hr, Route: IV, Dosing Weight 64.545 kg, Total Volume: 750, Start date: 10/28/16 16:00: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, Duration: 10 hr, Stop date: 10/29/16 1:59: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 Nitroglycer 2017-0 No 0.4 mg, 1 M emoria in 10-28 tab, l 22:00: Route: CLYDE Drug form: TAB, Q5Min, Dosing Weight 64.545, kg, PRN Chest Pain, Start date: 10/28/16 16:00: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, Duration: 3 doses or times, Stop date: Limited # of times Sodium 2017-0 No 750 mL, Memoria Chloride 10-28 Rate: 75 l 0.154 22:00: ml/hr, Kevin MEQ/ML 00 Infuse Injectable over: 10 Solution hr, Route: IV, Dosing Weight 64.545 kg, Total Volume: 750, Start date: 10/28/16 16:00: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, Duration: 10 hr, Stop date: 10/29/16 1:59: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 Nitroglycer 2017-0 No 0.4 mg, 1 M emoria in 10-28 tab, l 22:00: Route: CLYDE Drug form: TAB, Q5Min, Dosing Weight 64.545, kg, PRN Chest Pain, Start date: 10/28/16 16:00: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, Duration: 3 doses or times, Stop date: Limited # of times Sodium 2017-0 No 750 mL, Memoria Chloride 3 Rate: 75 l 0.154 22:00: ml/hr, Kevin MEQ/ML 00 Infuse Injectable over: 10 Solution hr, Route: IV, Dosing Weight 64.545 kg, Total Volume: 750, Start date: 10/28/16 16:00: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, Duration: 10 hr, Stop date: 10/29/16 1:59: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 ferrous Yes 325 mg = 1 Arturo [...] Total Volume: 1,000, Start date: 10/28/16 13:25: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, Duration: 30 day, Stop date: 11/27/16 13:24:00 CDT Sodium 2017-0 No 1,000 mL, Memori a Chloride 3-06 Rate: 75 l 0.154 19:25: ml/hr, Kevin MEQ/ML 00 Infuse Injectable over: 13.3 Solution hr, Route: IV, Dosing Weight 64.545 kg, Total Volume: 1,000, Start date: 10/28/16 13:25: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, Duration: 30 day, Stop date: 11/27/16 13:24:00 CDT Sodium 2017-0 No 1,000 mL, Memori a Chloride 3-06 Rate: 75 l 0.154 19:25: ml/hr, Kevin MEQ/ML 00 Infuse Injectable over: 13.3 Solution hr, Route: IV, Dosing Weight 64.545 kg, Total Volume: 1,000, Start date: 10/28/16 13:25: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, Duration: 30 day, Stop date: 11/27/16 13:24:00 CDT Sodium 2017-0 No 1,000 mL, Memori a Chloride 3-06 Rate: 75 l 0.154 19:25: ml/hr, Kevin MEQ/ML 00 Infuse Injectable over: 13.3 Solution hr, Route: IV, Dosing Weight 64.545 kg, Total Volume: 1,000, Start date: 10/28/16 13:25: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, Duration: 30 day, Stop date: 11/27/16 13:24:00 CDT Sodium 2017-0 No 1,000 mL, Memori a Chloride 3-06 Rate: 75 l 0.154 19:25: ml/hr, Kevin MEQ/ML 00 Infuse Injectable over: 13.3 Solution hr, Route: IV, Dosing Weight 64.545 kg, Total Volume: 1,000, Start date: 10/28/16 13:25: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, Duration: 30 day, Stop date: 11/27/16 13:24:00 CDT Sodium 2017-0 No 1,000 mL, Memori a Chloride 3-06 Rate: 75 l 0.154 19:25: ml/hr, Williams MEQ/ML 00 Infuse Injectable over: 13.3 Solution hr, Route: IV, Dosing Weight 64.545 kg, Total Volume: 1,000, Start date: 10/28/16 13:25:00 PSYCHIATRY PHYSICIAN, Duration: 30 day, Stop date: 11/27/16 13:24:00 CDT Sodium 2017-0 No 1,000 mL, Memori a Chloride 3-06 Rate: 75 l 0.154 19:25: ml/hr, Williams MEQ/ML 00 Infuse Injectable over: 13.3 Solution hr, Route: IV, Dosing Weight 64.545 kg, Total Volume: 1,000, Start date: 10/28/16 13:25:00 PSYCHIATRY PHYSICIAN, Duration: 30 day, Stop date: 11/27/16 13:24:00 CDT Sodium 2017-0 No 1,000 mL, Memori a Chloride 3-06 Rate: 75 l 0.154 19:25: ml/hr, Kevin MEQ/ML 00 Infuse Injectable over: 13.3 Solution hr, Route: IV, Dosing Weight 64.545 kg, Total Volume: 1,000, Start date: 10/28/16 13:25:00 PSYCHIATRY PHYSICIAN, Duration: 30 day, Stop date: 11/27/16 13:24:00 CDT Sodium 2017-0 No 1,000 mL, Memori a Chloride 3-06 Rate: 75 l 0.154 19:25: ml/hr, Williams MEQ/ML 00 Infuse Injectable over: 13.3 Solution hr, Route: IV, Dosing Weight 64.545 kg, Total Volume: 1,000, Start date: 10/28/16 13:25:00 PSYCHIATRY PHYSICIAN, Duration: 30 day, Stop date: 11/27/16 13:24:00 CDT Sodium 2017-0 No 1,000 mL, Memori a Chloride 3-06 Rate: 75 l 0.154 19:25: ml/hr, Kevin MEQ/ML 00 Infuse Injectable over: 13.3 Solution hr, Route: IV, Dosing Weight 64.545 kg, Total Volume: 1,000, Start date: 10/28/16 13:25:00 PSYCHIATRY PHYSICIAN, Duration: 30 day, Stop date: 11/27/16 13:24:00 CDT Sodium 2017-0 No 1,000 mL, Memori a Chloride 3-06 Rate: 75 l 0.154 19:25: ml/hr, Kevin MEQ/ML 00 Infuse Injectable over: 13.3 Solution hr, Route: IV, Dosing Weight 64.545 kg, Total Volume: 1,000, Start date: 10/28/16 13:25:00 PSYCHIATRY PHYSICIAN, Duration: 30 day, Stop date: 11/27/16 13:24:00 CDT Sodium 2017-0 No 1,000 mL, Memori a Chloride 3-06 Rate: 75 l 0.154 19:25: ml/hr, Williams MEQ/ML 00 Infuse Injectable over: 13.3 Solution hr, Route: IV, Dosing Weight 64.545 kg, Total Volume: 1,000, Start date: 10/28/16 13:25:00 PSYCHIATRY PHYSICIAN, Duration: 30 day, Stop date: 11/27/16 13:24:00 CDT Sodium 2017-0 No 1,000 mL, Memori a Chloride 3-06 Rate: 75 l 0.154 19:25: ml/hr, Kevin MEQ/ML 00 Infuse Injectable over: 13.3 Solution hr, Route: IV, Dosing Weight 64.545 kg, Total Volume: 1,000, Start date: 10/28/16 13:25:00 PSYCHIATRY PHYSICIAN, Duration: 30 day, Stop date: 11/27/16 13:24:00 CDT Sodium 2017-0 No 250 mL, Memoria Chloride 3-06 Rate: 250 l 0.154 19:24: ml/hr, Kevin MEQ/ML 00 Infuse Injectable over: 1 Solution hr, Route: IV, Dosing Weight 64.545 kg, Total Volume: 250, Start date: 10/28/16 13:24:00 PSYCHIATRY PHYSICIAN, Duration: 30 day, Stop date: 11/27/16 14:23:00 CDT Sodium 2017-0 No 250 mL, Memoria Chloride 3-06 Rate: 250 l 0.154 19:24: ml/hr, Kevin MEQ/ML 00 Infuse Injectable over: 1 Solution hr, Route: IV, Dosing Weight 64.545 kg, Total Volume: 250, Start date: 10/28/16 13:24:00 PSYCHIATRY PHYSICIAN, Duration: 30 day, Stop date: 11/27/16 14:23:00 CDT Sodium 2017-0 No 250 mL, Memoria Chloride 3-06 Rate: 250 l 0.154 19:24: ml/hr, Kevin MEQ/ML 00 Infuse Injectable over: 1 Solution hr, Route: IV, Dosing Weight 64.545 kg, Total Volume: 250, Start date: 10/28/16 13:24:00 PSYCHIATRY PHYSICIAN, Duration: 30 day, Stop date: 11/27/16 14:23:00 CDT Sodium 2017-0 No 250 mL, Memoria Chloride 3-06 Rate: 250 l 0.154 19:24: ml/hr, Kevin MEQ/ML 00 Infuse Injectable over: 1 Solution hr, Route: IV, Dosing Weight 64.545 kg, Total Volume: 250, Start date: 10/28/16 13:24:00 PSYCHIATRY PHYSICIAN, Duration: 30 day, Stop date: 11/27/16 14:23:00 CDT Sodium 2017-0 No 250 mL, Memoria Chloride 3-06 Rate: 250 l 0.154 19:24: ml/hr, Williams MEQ/ML 00 Infuse Injectable over: 1 Solution hr, Route: IV, Dosing Weight 64.545 kg, Total Volume: 250, Start date: 10/28/16 13:24:00 PSYCHIATRY PHYSICIAN, Duration: 30 day, Stop date: 11/27/16 14:23:00 CDT Sodium 2017-0 No 250 mL, Memoria Chloride 3-06 Rate: 250 l 0.154 19:24: ml/hr, Kevin MEQ/ML 00 Infuse Injectable over: 1 Solution hr, Route: IV, Dosing Weight 64.545 kg, Total Volume: 250, Start date: 10/28/16 13:24:00 PSYCHIATRY PHYSICIAN, Duration: 30 day, Stop date: 11/27/16 14:23:00 CDT Sodium 2017-0 No 250 mL, Memoria Chloride 3-06 Rate: 250 l 0.154 19:24: ml/hr, Kevin MEQ/ML 00 Infuse Injectable over: 1 Solution hr, Route: IV, Dosing Weight 64.545 kg, Total Volume: 250, Start date: 10/28/16 13:24:00 PSYCHIATRY PHYSICIAN, Duration: 30 day, Stop date: 11/27/16 14:23:00 CDT Sodium 2017-0 No 250 mL, Memoria Chloride 3-06 Rate: 250 l 0.154 19:24: ml/hr, Williams MEQ/ML 00 Infuse Injectable over: 1 Solution hr, Route: IV, Dosing Weight 64.545 kg, Total Volume: 250, Start date: 10/28/16 13:24:00 PSYCHIATRY PHYSICIAN, Duration: 30 day, Stop date: 11/27/16 14:23:00 CDT Sodium 2017-0 No 250 mL, Memoria Chloride 3-06 Rate: 250 l 0.154 19:24: ml/hr, Williams MEQ/ML 00 Infuse Injectable over: 1 Solution hr, Route: IV, Dosing Weight 64.545 kg, Total Volume: 250, Start date: 10/28/16 13:24:00 PSYCHIATRY PHYSICIAN, Duration: 30 day, Stop date: 11/27/16 14:23:00 CDT Sodium 2017-0 No 250 mL, Memoria Chloride 3-06 Rate: 250 l 0.154 19:24: ml/hr, Kevin MEQ/ML 00 Infuse Injectable over: 1 Solution hr, Route: IV, Dosing Weight 64.545 kg, Total Volume: 250, Start date: 10/28/16 13:24:00 PSYCHIATRY PHYSICIAN, Duration: 30 day, Stop date: 11/27/16 14:23:00 CDT Sodium 2017-0 No 250 mL, Memoria Chloride 3-06 Rate: 250 l 0.154 19:24: ml/hr, Kevin MEQ/ML 00 Infuse Injectable over: 1 Solution hr, Route: IV, Dosing Weight 64.545 kg, Total Volume: 250, Start date: 10/28/16 13:24:00 PSYCHIATRY PHYSICIAN, Duration: 30 day, Stop date: 11/27/16 14:23:00 CDT Sodium 2017-0 No 250 mL, Memoria Chloride 3-06 Rate: 250 l 0.154 19:24: ml/hr, Williams MEQ/ML 00 Infuse Injectable over: 1 Solution hr, Route: IV, Dosing Weight 64.545 kg, Total Volume: 250, Start date: 10/28/16 13:24:00 PSYCHIATRY PHYSICIAN, Duration: 30 day, Stop date: 11/27/16 14:23:00 CDT Sodium 2017-0 No 250 mL, Memoria Chloride 3-06 Rate: 250 l 0.154 19:24: ml/hr, Williams MEQ/ML 00 Infuse Injectable over: 1 Solution hr, Route: IV, Dosing Weight 64.545 kg, Total Volume: 250, Start date: 10/28/16 13:24:00 PSYCHIATRY PHYSICIAN, Duration: 30 day, Stop date: 11/27/16 14:23:00 CDT midodrine 2015-0 Yes 2.5 mg = 1 Me moria 2.5 mg oral - tab, PO, l tablet 16:05: TID, # 90 Galen n 00 tab, 0 Refill(s) non-formula 2015-0 Yes 2.5 mg =, M emoria ry 9- PO, BID, # l 16:05: 60, Williams 00 Refill(s) 0, MISC midodrine 2015-0 Yes [...] 9-02 PO, BID, # l 16:05: 60, Williams 00 Refill(s) 0, MISC midodrine Yes 2.5 mg = 1 Me moria 2.5 mg oral -02 tab, PO, l tablet 16:05: TID, # 90 Galen n 00 tab, 0 Refill(s) non-formula Yes 2.5 mg =, M emoria ry 9- PO, BID, # l 16:05: 60, Kevin 00 Refill(s) 0, MISC midodrine Yes 2.5 mg = 1 Me moria 2.5 mg oral 02 tab, PO, l tablet 16:05: TID, # 90 Galen n 00 tab, 0 Refill(s) non-formula 0 Yes 2.5 mg =, M emoria ry 9- PO, BID, # l 16:05: 60, Kvein 00 Refill(s) 0, MISC midodrine Yes 2.5 mg = 1 Me moria 2.5 mg oral -02 tab, PO, l tablet 16:05: TID, # 90 Galen n 00 tab, 0 Refill(s) non-formula 0 Yes 2.5 mg =, M emoria ry 9-02 PO, BID, # l 16:05: 60, Kevin 00 Refill(s) 0, MISC midodrine 0 Yes 2.5 mg = 1 Me moria 2.5 mg oral 9-02 tab, PO, l tablet 16:05: TID, # 90 Galen n 00 tab, 0 Refill(s) non-formula 2015-0 Yes 2.5 mg =, M emoria ry 9-02 PO, BID, # l 16:05: 60, Kevin 00 Refill(s) 0, MISC midodrine 2016 Yes 2.5 mg = 1 Me moria [...] 9-02 PO, BID, # l 16:05: 60, Williams 00 Refill(s) 0, MISC midodrine Yes 2.5 mg = 1 Me moria 2.5 mg oral 9-02 tab, PO, l tablet 16:05: TID, # 90 Galen n 00 tab, 0 Refill(s) non-formula 0 Yes 2.5 mg =, M emoria ry 9-02 PO, BID, # l 16:05: 60, Williams 00 Refill(s) 0, MISC midodrine 0 Yes 2.5 mg = 1 Me moria 2.5 mg oral 9-02 tab, PO, l tablet 16:05: TID, # 90 Galen n 00 tab, 0 Refill(s) non-formula 2015-0 Yes 2.5 mg =, M emoria ry 9-02 PO, BID, # l 16:05: 60, Williams 00 Refill(s) 0, MISC midodrine Yes 2.5 mg = 1 Me moria 2.5 mg oral 04-26 tab, PO, l tablet 16:05: TID, # 90 Galen n 00 tab, 0 Refill(s) non-formula Yes 2.5 mg =, Curtis emoria ry 04-26 PO, BID, # l 16:05: 60, Williams 00 Refill(s) 0, MISC Maalox No Notes: [...] 04-26 (aluminum l Regular 08:55: hydroxide- Herm anglea Strength 00 magnesium SUSP hyd-simeth icone 200-200-20 [...] 9-02 25 mg l tablet 02:00: tablet, Williams 00 0.5 tab, Drug form: MISC, Route: [...] 9-02 25 mg l tablet 02:00: tablet, Williams 00 0.5 tab, Drug form: MISC, Route: [...] 9-02 25 mg l tablet 02:00: tablet, Williams 00 0.5 tab, Drug form: MISC, Route: [...] 9-02 25 mg l tablet 02:00: tablet, Williams 00 0.5 tab, Drug form: MISC, Route: [...] 9-02 25 mg l tablet 02:00: tablet, Williams 00 0.5 tab, Drug form: MISC, Route: PO, Bedtime, 04/25/16 21:00:00 CDT, Duration: 30 day, Stop date: 05/24/16 21:00:00 CDT Sertraline No Sertraline M emoria 25 mg 9-02 25 mg l tablet 02:00: tablet, Williams 00 0.5 tab, Drug form: MISC, Route: PO, Bedtime, 04/25/16 21:00:00 CDT, Duration: 30 day, Stop date: 05/24/16 21:00:00 CDT Sertraline No Sertraline M emoria 25 mg 9-02 25 mg l tablet 02:00: tablet, Williams 00 0.5 tab, Drug form: MISC, Route: PO, Bedtime, 04/25/16 21:00:00 CDT, Duration: 30 day, Stop date: 05/24/16 21:00:00 CDT potassium No Notes: Memori a chloride 9-01 (Same as: l 14:30: Potassium Kevin 00 Chloride) potassium No Notes: Memori a chloride 9- (Same as: l 14:30: Potassium Kevin 00 Chloride) potassium No Notes: Memori a chloride 9-01 (Same as: l 14:30: Potassium Williams 00 Chloride) potassium No Notes: Memori a chloride 9-01 (Same as: l 14:30: Potassium Williams 00 Chloride) potassium No Notes: Memori a chloride 9- (Same as: l 14:30: Potassium Williams 00 Chloride) potassium No Notes: Memori a chloride 9- (Same as: l 14:30: Potassium Williams 00 Chloride) potassium No Notes: Memori a chloride 9-01 (Same as: l 14:30: Potassium Kevin 00 Chloride) potassium 2015- No Notes: Memori a chloride 9-01 (Same as: l 14:30: Potassium Kevin 00 Chloride) potassium No Notes: Memori a chloride 9- (Same as: l 14:30: Potassium Williams 00 Chloride) potassium No Notes: Memori a chloride 9- (Same as: l 14:30: Potassium Kevin 00 Chloride) potassium No Notes: Memori a chloride 9- (Same as: l 14:30: Potassium Williams 00 Chloride) potassium No Notes: Memori a chloride 9- (Same as: l 14:30: Potassium Kevin 00 Chloride) potassium No Notes: Memori a chloride 9- (Same as: l 14:30: Potassium Kevin 00 Chloride) Mag-Ox 400 No 500 mg, Arturo sony 04-25 Route: PO, l 14:00: Drug form: Williams 00 TAB, Daily, Dosing Weight 68.636, kg, [...] 04-25 Route: PO, l 14:00: Drug form: Williams 00 TAB, Daily, Dosing Weight 68.636, kg, [...] 9 Route: PO, l 14:00: Drug form: Williams 00 TAB, Daily, Dosing Weight 68.636, kg, Start date: 04/25/16 9:00:00 CDT, Duration: 30 day, Stop date: 05/24/16 9:00:00 CDT Mag-Ox 400 2016-0 No 500 mg, Arturo sony 9 Route: PO, l 14:00: Drug form: Williams 00 TAB, Daily, Dosing Weight 68.636, kg, Start date: 04/25/16 9:00:00 CDT, Duration: 30 day, Stop date: 05/24/16 9:00:00 CDT Mag-Ox 400 2016-0 No 500 mg, Arturo sony 9- Route: PO, l 14:00: Drug form: Kevin 00 TAB, Daily, Dosing Weight 68.636, kg, Start date: 04/25/16 9:00:00 CDT, Duration: 30 day, Stop date: 05/24/16 9:00:00 CDT Mag-Ox 400 2016-0 No 500 mg, Arturo sony 9 Route: PO, l 14:00: Drug form: Williams 00 TAB, Daily, Dosing Weight 68.636, kg, [...] 04-25 Route: PO, l 14:00: Drug form: Williams 00 TAB, Daily, Dosing Weight 68.636, kg, [...] 9-01 25 mg l tablet 02:00: tablet, Williams 00 0.5 tab, Drug form: MISC, Route: PO, Bedtime, 04/24/16 21:00:00 CDT, Duration: 30 day, Stop date: 05/23/16 21:00:00 CDT Sertraline 2016-0 No Sertraline M emoria 25 mg 9-01 25 mg l tablet 02:00: tablet, Williams 00 0.5 tab, Drug form: MISC, Route: [...] 9-01 25 mg l tablet 02:00: tablet, Williams 00 0.5 tab, Drug form: MISC, Route: [...] 9-01 25 mg l tablet 02:00: tablet, Williams 00 0.5 tab, Drug form: MISC, Route: PO, Bedtime, 04/24/16 21:00:00 CDT, Duration: 30 day, Stop date: 05/23/16 21:00:00 CDT Sertraline 2016-0 No Sertraline M emoria 25 mg 9-01 25 mg l tablet 02:00: tablet, Williams 00 0.5 tab, Drug form: MISC, Route: PO, Bedtime, 04/24/16 21:00:00 CDT, Duration: 30 day, Stop date: 05/23/16 21:00:00 CDT Sertraline 2015-0 No Sertraline M emoria 25 mg 9-01 25 mg l tablet 02:00: tablet, Williams 00 0.5 tab, Drug form: MISC, Route: [...] CDT oxybutynin 2015-0 No Notes: Memor ia - Same as: l 22:00: Ditropan) Kevin 00 Pindolol 2015-0 No 2.5 mg, Memori a 04-24 Route: PO, l 22:00: Drug form: Kevin 00 TAB, BID, Dosing Weight 68.636, kg, Start date: 04/24/16 17:00:00 CDT, Duration: 30 day, Stop date: 05/24/16 9:00:00 CDT oxybutynin 2015-0 No 5 mg, Memori a extended 04-24 [...] 8-31 Route: PO, l 22:00: Drug form: Williams 00 TAB, BID, Dosing Weight 68.636, kg, [...] 8-31 Route: PO, l 22:00: Drug form: Williams 00 TAB, BID, Dosing Weight 68.636, kg, [...] ia 8-31 Same as: l 22:00: Ditropan) Williams Pindolol 2016-0 No 2.5 mg, Memori a [...] ia 04-24 Same as: l 22:00: Ditropan) [place] 00 Pindolol 2016-0 No 2.5 mg, Memori a 8-31 Route: PO, l 22:00: Drug form: Williams 00 TAB, BID, Dosing Weight 68.636, kg, [...] ia 8-31 Same as: l 22:00: Ditropan) [place] Pindolol 2016-0 No 2.5 mg, Memori a [...] ia 8-31 Same as: l 22:00: Ditropan) [place] 00 Pindolol 2016-0 No 2.5 mg, Memori [...] ia 8- Same as: l 22:00: Ditropan) [place] 00 Pindolol 2016-0 No 2.5 mg, Memori [...] ia 8-31 Same as: l 22:00: Ditropan) [place] Pindolol 2016-0 No 2.5 mg, Memori a [...] 8-31 Same as: l 22:00: Ditropan) Kevin Pindolol 2015-0 No 2.5 mg, Memori a [...] Memori a 8-31 (Same l 18:00: as:Proamat Williams 00 ine) pindolol 5 No pindolol 5 M emoria mg tab 8-31 mg tab, l 18:00: 2.5 mg, Williams 00 0.5 tab, Drug form: MISC, Route: [...] Memori a 8-31 (Same l 18:00: as:Proamat Williams 00 ine) pindolol 5 No pindolol 5 [...] Memori a 8-31 (Same l 18:00: as:Proamat [place] 00 ine) pindolol 5 No pindolol 5 [...] 8-31 mg tab, l 18:00: 2.5 mg, Williams 00 0.5 tab, Drug form: MISC, Route: PO, BID, 04/24/16 13:00:00 CDT, Duration: 30 day, Stop date: 05/24/16 9:00:00 CDT Midodrine No Notes: Memori a 8-31 (Same l 18:00: as:Proamat [place] 00 ine) pindolol 5 No pindolol 5 M emoria mg tab 8-31 mg tab, l 18:00: 2.5 mg, Williams 00 0.5 tab, Drug form: MISC, Route: PO, BID, 04/24/16 13:00:00 CDT, Duration: 30 day, Stop date: 05/24/16 9:00:00 CDT Midodrine No Notes: Memori a 8-31 (Same l 18:00: as:Proamat Kevin 00 ine) pindolol 5 No pindolol 5 M emoria mg tab 8-31 mg tab, l 18:00: 2.5 mg, Williams 00 0.5 tab, Drug form: MISC, Route: PO, BID, 04/24/16 13:00:00 CDT, Duration: 30 day, Stop date: 05/24/16 9:00:00 CDT Midodrine No Notes: Memori a 8-31 (Same l 18:00: as:Proamat Kevin 00 ine) pindolol 5 No pindolol 5 M emoria mg tab 8-31 mg tab, l 18:00: 2.5 mg, [place] 00 0.5 tab, Drug form: MISC, Route: PO, BID, 04/24/16 13:00:00 CDT, Duration: 30 day, Stop date: 05/24/16 9:00:00 CDT Midodrine No Notes: Memori a 8-31 (Same l 18:00: as:Proamat [place] ine) pindolol 5 No pindolol 5 M emoria mg tab 8-31 mg tab, l 18:00: 2.5 mg, Kevin 00 0.5 tab, Drug form: MISC, Route: PO, BID, 04/24/16 13:00:00 CDT, Duration: 30 day, Stop date: 05/24/16 9:00:00 CDT Midodrine No Notes: Memori a 8-31 (Same l 18:00: as:Proamat [place] ine) pindolol 5 No pindolol 5 M emoria mg tab 8-31 mg tab, l 18:00: 2.5 mg, Kevin 00 0.5 tab, Drug form: MISC, Route: PO, BID, 04/24/16 13:00:00 CDT, Duration: 30 day, Stop date: 05/24/16 9:00:00 CDT Midodrine No Notes: Memori a 8-31 (Same l 18:00: as:Proamat Kevin ine) bisoprolol 2016-0 No Notes: Memor ia 8-31 (Same As: l 16:30: Zebeta) Williams 00 2.5 mg = 1/2 x 5 [...] = 1/2 x 5 mg tab bisoprolol 20160 No Notes: Memor ia 8-31 (Same As: l 16:30: Zebeta) [place] 00 2.5 mg = 1/2 x 5 mg tab bisoprolol 20160 No Notes: Memor ia 8-31 (Same As: l 16:30: Zebeta) Kevin 00 2.5 mg = 1/2 x 5 mg tab bisoprolol 2016-0 No Notes: Memor ia 8-31 (Same As: l 16:30: Zebeta) [place] 00 2.5 mg = 1/2 x 5 mg tab bisoprolol 20160 No Notes: Memor ia 8-31 (Same As: l 16:30: Zebeta) Kevin 00 2.5 mg = 1/2 x 5 mg tab bisoprolol 20160 No Notes: Memor ia 8-31 (Same As: l 16:30: Zebeta) [place] 00 2.5 mg = 1/2 x 5 mg tab bisoprolol 2016-0 No Notes: Memor ia 8-31 (Same As: l 16:30: Zebeta) [place] 00 2.5 mg = 1/2 x 5 mg tab bisoprolol 2016-0 No Notes: Memor ia 8-31 (Same As: l 16:30: Zebeta) [place] 00 2.5 mg = 1/2 x 5 mg tab bisoprolol 2016-0 No Notes: Memor ia 8-31 (Same As: l 16:30: Zebeta) Kevin 00 2.5 mg = 1/2 x 5 mg tab bisoprolol 20160 No Notes: Memor ia 8-31 (Same As: l 16:30: Zebeta) 2.5 mg = 1/2 x 5 mg tab Keflex No Notes: Memoria 8-31 Take on l 14:00: empty Kevin stomach. (Same As: Keflex) Vitamin D3 No Notes: Memor ia 831 Same as : l 14:00: Vitamin D3 Folic Acid No 0.8 mg, 2 Me moria 8- tab, l 14:00: Route: PO, Kevin 00 [...] 04-24 Take on l 14:00: empty Kevin stomach. (Same As: Keflex) Vitamin D3 No Notes: Memor ia 04-24 Same as : l 14:00: Vitamin D3 Williams 00 Folic Acid No 0.8 mg, 2 Me moria - tab, l 14:00: Route: PO, Kevin 00 [...] 04-24 25 mg l tablet 14:00: tablet, Williams 00 0.5 tab, Drug form: MISC, Route: [...] 04-24 tab, l MEQ 14:00: Route: PO, Williams Extended 00 Drug form: Release ERTAB, Tablet Daily, Dosing Weight 68.636, kg, Start date: 04/24/16 9:00:00 CDT, Duration: 30 day, Stop date: 05/23/16 9:00:00 CDT Keflex No Notes: Memoria 8-31 Take on l 14:00: empty Williams 00 stomach. (Same As: Keflex) Vitamin D3 No Notes: Memor ia 831 Same as : l 14:00: Vitamin D3 Williams 00 Folic Acid No 0.8 mg, 2 [...] Memoria 8-31 Take on l 14:00: empty Kevin 00 stomach. (Same As: Keflex) Vitamin D3 No Notes: Memor ia 8 Same as : l 14:00: Vitamin D3 Kevin 00 Folic Acid No 0.8 mg, 2 Me moria 8 tab, l 14:00: Route: PO, Williams 00 Drug form: TAB, Daily, Dosing Weight [...] 04-24 Route: PO, l 14:00: Drug form: Williams 00 TAB, Daily, Dosing Weight 68.636, kg, Start date: 04/24/16 9:00:00 CDT, Duration: 30 day, Stop date: 05/23/16 9:00:00 CDT Potassium No 10 mEq, 1 Mem oria Chloride 10 04-24 tab, l MEQ 14:00: Route: PO, Williams Extended 00 Drug form: Release ERTAB, Tablet Daily, Dosing Weight 68.636, kg, Start date: 04/24/16 9:00:00 CDT, Duration: 30 day, Stop date: 05/23/16 9:00:00 CDT Keflex 0 No Notes: Memoria 8 Take on l 14:00: empty Williams stomach. (Same As: Keflex) Vitamin D3 2016-0 [...] 04-24 tab, l MEQ 14:00: Route: PO, Williams Extended 00 Drug form: Release ERTAB, Tablet Daily, Dosing Weight 68.636, kg, Start date: 04/24/16 9:00:00 CDT, Duration: 30 day, Stop date: 05/23/16 9:00:00 CDT Keflex 0 No Notes: Memoria 831 Take on l 14:00: empty stomach. (Same [...] 04-24 25 mg l tablet 14:00: tablet, Williams 00 0.5 tab, Drug form: MISC, Route: [...] 05/23/16 9:00:00 CDT Keflex No Notes: Memoria 8 Take on l 14:00: empty Williams 00 stomach. (Same As: Keflex) Vitamin D3 [...] D3 No 5,000 Memori a 5000 intl 831 unit, l units oral 14:00: Route: PO, [...] moria 04-24 tab, l 14:00: Route: PO, Williams Drug form: TAB, Daily, Dosing Weight 68.636, [...] 04-24 25 mg l tablet 14:00: tablet, Williams 00 0.5 tab, Drug form: MISC, Route: PO, Daily, 04/24/16 9:00:00 CDT, Duration: 30 day, Stop date: 05/23/16 9:00:00 CDT Sertraline No 12.5 mg, Mem oria 04-24 Route: PO, l 14:00: Drug form: Williams 00 TAB, Daily, Dosing Weight 68.636, kg, Start date: 04/24/16 9:00:00 CDT, Duration: 30 day, Stop date: 05/23/16 9:00:00 CDT Potassium No 10 mEq, 1 Mem oria Chloride 10 04-24 tab, l MEQ 14:00: Route: PO, [place] Extended 00 Drug form: Release ERTAB, Tablet Daily, Dosing Weight 68.636, kg, Start date: 04/24/16 9:00:00 CDT, Duration: 30 day, Stop date: 05/23/16 9:00:00 CDT Keflex 0 No Notes: Memoria 04-24 Take on l 14:00: empty Williams 00 stomach. (Same As: Keflex) Vitamin D3 No Notes: Memor ia 04-24 Same as : l 14:00: Vitamin D3 Williams 00 Folic Acid No 0.8 mg, 2 Me moria 04-24 tab, l 14:00: Route: PO, Williams Drug form: TAB, Daily, Dosing Weight 68.636, [...] 04-24 25 mg l tablet 14:00: tablet, Williams 00 0.5 tab, Drug form: MISC, Route: [...] Memoria 04-24 Take on l 14:00: empty Williams stomach. (Same As: Keflex) Vitamin D3 No Notes: Memor ia 04-24 Same as : l 14:00: Vitamin D3 Kevin 00 Folic Acid No 0.8 mg, 2 Me moria 04-24 tab, l 14:00: Route: PO, Williams 00 Drug form: TAB, Daily, Dosing Weight [...] 04-24 Route: PO, l 14:00: Drug form: Williams 00 TAB, Daily, Dosing Weight 68.636, kg, [...] Memoria 04-24 Take on l 14:00: empty Williams stomach. (Same As: Keflex) Vitamin D3 No [...] 04-24 25 mg l tablet 14:00: tablet, Williams 00 0.5 tab, Drug form: MISC, Route: [...] 04-24 tab, l MEQ 14:00: Route: PO, [place] Extended 00 Drug form: Release ERTAB, Tablet [...] moria 04-24 tab, l 14:00: Route: PO, Williams 00 Drug form: TAB, Daily, Dosing Weight [...] 04-24 25 mg l tablet 14:00: tablet, Williams 00 0.5 tab, Drug form: MISC, Route: [...] moria 04-24 tab, l 14:00: Route: PO, Williams 00 Drug form: TAB, Daily, Dosing Weight [...] 04-24 Route: PO, l 14:00: Drug form: Williams 00 TAB, Daily, Dosing Weight 68.636, kg, Start date: 04/24/16 9:00:00 CDT, Duration: 30 day, Stop date: 05/23/16 9:00:00 CDT Potassium No 10 mEq, 1 Mem oria Chloride 10 04-24 tab, l MEQ 14:00: Route: PO, [place] Extended 00 Drug form: Release ERTAB, Tablet Daily, Dosing Weight 68.636, kg, Start date: 04/24/16 9:00:00 CDT, Duration: 30 day, Stop date: 05/23/16 9:00:00 CDT Mag-Ox 400 No Notes: Memor ia 04-24 (Same as: l 11:53: [facility]-Ox Williams ) Magnesium oxide 976yw=591l g elemental magnesium Dose=____m g magnesium oxide (___mg elemental magnesium) Mag-Ox 400 No Notes: Memor ia 04-24 (Same as: l 11:53: Mag-Ox Kevin ) Magnesium oxide 500af=805i g elemental magnesium Dose=____m g magnesium oxide (___mg elemental magnesium) Mag-Ox 400 No Notes: Memor ia 04-24 (Same as: l 11:53: Mag-Ox Kevin ) Magnesium oxide 255ld=205f g elemental magnesium Dose=____m g magnesium oxide (___mg elemental magnesium) Mag-Ox 400 No Notes: Memor ia 04-24 (Same as: l 11:53: Mag-Ox Kevin) Magnesium oxide 000jk=413r g elemental magnesium Dose=____m g magnesium oxide (___mg elemental magnesium) Mag-Ox 400 No Notes: Memor ia 04-24 (Same as: l 11:53: Mag-Ox Kevin 400) Magnesium oxide 359fa=697l g elemental magnesium Dose=____m g magnesium oxide (___mg elemental magnesium) Mag-Ox 400 No Notes: Memor ia 04-24 (Same as: l 11:53: Mag-Ox Williams 400) Magnesium oxide 280xs=834u g elemental magnesium Dose=____m g magnesium oxide (___mg elemental magnesium) Mag-Ox 400 No Notes: Memor ia 04-24 (Same as: l 11:53: [facility]-Ox Williams ) Magnesium oxide 195vv=372y g elemental magnesium Dose=____m g magnesium oxide (___mg elemental magnesium) Mag-Ox 400 No Notes: Memor ia 04-24 (Same as: l 11:53: [facility]-Ox Kevin ) Magnesium oxide 926zw=103j g elemental magnesium Dose=____m g magnesium oxide (___mg elemental magnesium) Mag-Ox 400 No Notes: Memor ia 04-24 (Same as: l 11:53: [facility]-Ox Kevin ) Magnesium oxide 154wo=763j g elemental magnesium Dose=____m g magnesium oxide (___mg elemental magnesium) Mag-Ox 400 No Notes: Memor ia 04-24 (Same as: l 11:53: [facility]-Ox Kevin ) Magnesium oxide 654vt=113y g elemental magnesium Dose=____m g magnesium oxide (___mg elemental magnesium) Mag-Ox 400 No Notes: Memor ia 04-24 (Same as: l 11:53: [facility]-Ox Kevin 400) Magnesium oxide 287tw=220y g elemental magnesium Dose=____m g magnesium oxide (___mg elemental magnesium) Mag-Ox 400 No Notes: Memor ia 04-24 (Same as: l 11:53: Mag-Ox Kevin ) Magnesium oxide 360ti=856q g elemental magnesium Dose=____m g magnesium oxide (___mg elemental magnesium) Mag-Ox 400 2015-0 No Notes: Memor ia 8-31 (Same as: l 11:53: Mag-Ox Kevin 00 400) Magnesium oxide 723wl=838z g elemental magnesium Dose=____m g magnesium oxide (___mg elemental magnesium) Hydralazine 0 No Notes: Arturo sony 8-30 (Same as: l 09:51: Apresoline [place] ) Push over 5 minutes Hydralazine 0 No Notes: Arturo sony 8-30 (Same as: l 09:51: Apresoline Kevin ) Push over 5 minutes Hydralazine 0 No Notes: Arturo sony 8-30 (Same as: l 09:51: Apresoline Kevin ) Push over 5 minutes Hydralazine No Notes: Arturo sony 8-30 (Same as: l 09:51: Apresoline [place] 00 ) Push over 5 minutes Hydralazine 0 No Notes: Arturo sony 8-30 (Same as: l 09:51: Apresoline [place] 00 ) Push over 5 minutes Hydralazine 0 No Notes: Arturo sony 8-30 (Same as: l 09:51: Apresoline Kevin 00 ) Push over 5 minutes Hydralazine 0 No Notes: Arturo sony 8-30 (Same as: l 09:51: Apresoline Kevin 00 ) Push over 5 minutes Hydralazine 0 No Notes: Arturo sony 8-30 (Same as: l 09:51: Apresoline Kevin ) Push over 5 minutes Hydralazine 0 No Notes: Arturo sony 8-30 (Same as: l 09:51: Apresoline Kevin ) Push over 5 minutes Hydralazine 0 No Notes: Arturo sony 8-30 (Same as: l 09:51: Apresoline Kevin ) Push over 5 minutes Hydralazine 0 No Notes: Arturo sony 8-30 (Same as: l 09:51: Apresoline Kevin 00 ) Push over 5 minutes Hydralazine 0 No Notes: Arturo sony 8-30 (Same as: l 09:51: Apresoline [place] ) Push over 5 minutes Hydralazine 2016-0 No Notes: Arturo sony 8-30 (Same as: l 09:51: Apresoline [place] 00 ) Push over 5 minutes hydrALAZINE 2016-0 No Notes: Arturo sony 8-30 (Same as: l 08:32: Apresoline [place] 00 ) Push over 5 minutes hydrALAZINE [...] 00 ) Push over 5 minutes hydrALAZINE 20160 No Notes: Arturo sony 8-30 (Same as: l 08:32: Apresoline Kevin 00 ) Push over 5 minutes hydrALAZINE 20160 No Notes: Arturo sony 8-30 (Same as: l 08:32: Apresoline [place] 00 ) Push over 5 minutes hydrALAZINE 0 No Notes: Arturo sony 8-30 (Same as: l 08:32: Apresoline [place] 00 ) Push over 5 minutes hydrALAZINE 0 No Notes: Arturo sony 8-30 (Same as: l 08:32: Apresoline [place] 00 ) Push over 5 minutes hydrALAZINE 20160 No Notes: Arturo sony 8-30 (Same as: l 08:32: Apresoline [place] 00 ) Push over 5 minutes hydrALAZINE 2016-0 No Notes: Arturo sony 8-30 (Same as: l 08:32: Apresoline Kevin 00 ) Push over 5 minutes hydrALAZINE 2016-0 No Notes: Arturo sony 8-30 (Same as: l 08:32: Apresoline [place] 00 ) Push over 5 minutes hydrALAZINE 2016-0 No Notes: Arturo sony 8-30 (Same as: l 08:32: Apresoline [place] 00 ) Push over 5 minutes Hydralazine 2016-0 No Notes: Arturo sony 8-30 (Same as: l 08:09: Apresoline [place] 00 ) Push over 5 minutes Hydralazine [...] sony 8-30 (Same as: l 08:09: Apresoline [place] ) Push over 5 minutes Hydralazine 2016-0 [...] sony 8-30 (Same as: l 08:09: Apresoline [place] ) Push over 5 minutes Hydralazine 2016-0 No Notes: Arturo sony 8-30 (Same as: l 08:09: Apresoline Kevin ) Push over 5 minutes Hydralazine 2016-0 No Notes: Arturo sony 8-30 (Same as: l 08:09: Apresoline [place] ) Push over 5 minutes Ramipril 2016-0 No Notes: Memoria 8-30 (Same l 07:08: as:Altace) Williams Ramipril 2016-0 No Notes: Memoria 8-30 (Same [...] a 8-29 Take 1 l 14:10: hour Williams 00 before or 2 hours after meal; Enteral feeds may interefere with the absorption of this medication . (Same as:Synthro id, Levothroid ) Synthroid No Notes: Memori a 8-29 Take 1 l 14:10: hour [place] 00 before or 2 hours after meal; [...] a 8-29 Take 1 l 14:10: hour [place] 00 before or 2 hours after meal; Enteral feeds may interefere with the absorption of this medication . (Same as:Synthro id, Levothroid ) Synthroid No Notes: Memori a 8-29 Take 1 l 14:10: hour [place] 00 before or 2 hours after meal; Enteral feeds may interefere with the absorption of this medication . (Same as:Synthro id, Levothroid ) Synthroid No Notes: Memori a 8-29 Take 1 l 14:10: hour [place] 00 before or 2 hours after meal; Enteral feeds may interefere with the absorption of this medication . (Same as:Synthro id, Levothroid ) Synthroid No Notes: Memori a 8-29 Take 1 l 14:10: hour [place] 00 before or 2 hours after meal; [...] a 8-29 Take 1 l 14:10: hour [place] 00 before or 2 hours after meal; [...] a 8-29 Take 1 l 14:10: hour [place] 00 before or 2 hours after meal; Enteral feeds may interefere with the absorption of this medication . (Same as:Synthro id, Levothroid ) Synthroid 2015- No Notes: Memori a 8-29 Take 1 l 14:10: hour Kevin 00 before or 2 hours after meal; Enteral feeds may interefere with the absorption of this medication . (Same as:Synthro id, Levothroid ) Aspirin No Notes: (Do Arturo sony 8-29 Not Crush) l 14:00: Do not Williams 00 crush or chew. Aspirin No Notes: (Do Arturo sony 8-29 Not Crush) l 14:00: Do not Kevin 00 crush or chew. Aspirin No Notes: (Do Arturo sony 8-29 Not Crush) l 14:00: Do not Williams 00 crush or chew. Aspirin No Notes: (Do Arturo sony 8-29 Not Crush) l 14:00: Do not Kevin 00 crush or chew. Aspirin No Notes: (Do Arturo sony 8-29 Not Crush) l 14:00: Do not Kevin 00 crush or chew. Aspirin No Notes: (Do Arturo sony 8-29 Not Crush) l 14:00: Do not [place] 00 crush or chew. Aspirin No Notes: (Do Arturo sony 8-29 Not Crush) l 14:00: Do not [place] 00 crush or chew. Aspirin No Notes: (Do Arturo sony 8-29 Not Crush) l 14:00: Do not Kevin 00 crush or chew. Aspirin No Notes: (Do Arturo sony 8-29 Not Crush) l 14:00: Do not [place] 00 crush or chew. Aspirin No Notes: (Do Arturo sony 8-29 Not Crush) l 14:00: Do not [place] 00 crush or chew. Aspirin 0 No Notes: (Do Arturo sony 8-29 Not Crush) l 14:00: Do not [place] 00 crush or chew. Aspirin 0 No Notes: (Do Arturo sony 8-29 Not Crush) l 14:00: Do not [place] 00 crush or chew. Aspirin 0 No Notes: (Do Arturo sony 8-29 Not Crush) l 14:00: Do not Williams 00 crush or chew. Thyroxine No Notes: Memori a 8-29 Take 1 l 11:30: hour Williams 00 before or 2 hours after meal; [...] a 8-29 Take 1 l 11:30: hour [place] 00 before or 2 hours after meal; [...] a 8-29 Take 1 l 11:30: hour [place] 00 before or 2 hours after meal; [...] a 8-29 Take 1 l 11:30: hour [place] 00 before or 2 hours after meal; Enteral feeds may interefere with the absorption of this medication . (Same as:Synthro id, Levothroid ) Thyroxine No Notes: Memori a 8-29 Take 1 l 11:30: hour [place] 00 before or 2 hours after meal; Enteral feeds may interefere with the absorption of this medication . (Same as:Synthro id, Levothroid ) Thyroxine No Notes: Memori a 8-29 Take 1 l 11:30: hour [place] 00 before or 2 hours after meal; Enteral feeds may interefere with the absorption of this medication . (Same as:Synthro id, Levothroid ) Thyroxine No Notes: Memori a 8-29 Take 1 l 11:30: hour [place] 00 before or 2 hours after meal; Enteral feeds may interefere with the absorption of this medication . (Same as:Synthro id, Levothroid ) Thyroxine No Notes: Memori a 8-29 Take 1 l 11:30: hour [place] 00 before or 2 hours after meal; Enteral feeds may interefere with the absorption of this medication . (Same as:Synthro id, Levothroid ) heparin No Notes: Memoria 8-29 porcine l 05:00: heparin Kevin 00 heparin No Notes: Memoria 8-29 porcine l 05:00: heparin [place] 00 heparin No Notes: Memoria 8-29 porcine l 05:00: heparin [place] 00 heparin No Notes: Memoria 8-29 porcine l 05:00: heparin Kevin 00 heparin No Notes: Memoria 8-29 porcine l 05:00: heparin Kevin 00 heparin No Notes: Memoria 8-29 porcine l 05:00: heparin [place] 00 heparin No Notes: Memoria 8-29 porcine l 05:00: heparin [place] 00 heparin No Notes: Memoria 8-29 porcine l 05:00: heparin [place] 00 heparin No Notes: Memoria 8-29 porcine l 05:00: heparin Kevin 00 heparin No Notes: Memoria 8-29 porcine l 05:00: heparin [place] 00 heparin No Notes: Memoria 8-29 porcine l 05:00: heparin Kevin 00 heparin No Notes: Memoria 8-29 porcine l 05:00: heparin [place] 00 heparin No Notes: Memoria 8-29 porcine l 05:00: heparin [place] 00 Ramipril No Notes: Memoria 8-29 (Same l 03:10: as:Altace) [place] 00 Ramipril No Notes: Memoria 8-29 (Same l 03:10: as:Altace) [place] 00 Ramipril No Notes: Memoria 8-29 (Same l 03:10: as:Altace) Ramipril No Notes: Memoria 8-29 (Same l 03:10: as:Altace) Kevin 00 Ramipril No Notes: Memoria 8-29 (Same l 03:10: as:Altace) [place] 00 Ramipril No Notes: Memoria 8-29 (Same [...] a 8-29 (Same as: l 02:37: Phenergan) Williams 00 6.25 mg = 1/2 x 12.5 mg TAB Phenergan No Notes: Memori a 8-29 (Same as: l 02:37: Phenergan) Kevin 00 6.25 mg = 1/2 x 12.5 mg TAB Phenergan 2016-0 No Notes: Memori a 8-29 (Same as: l 02:37: Phenergan) [place] 00 6.25 mg = 1/2 x 12.5 mg TAB Phenergan 2016-0 No Notes: Memori a 8-29 (Same as: l 02:37: Phenergan) Kevin 00 6.25 mg = 1/2 x 12.5 mg TAB Phenergan 2016-0 No Notes: Memori a 8-29 (Same as: l 02:37: Phenergan) [place] 00 6.25 mg = 1/2 x 12.5 mg TAB Phenergan 2016-0 No Notes: Memori a 8-29 (Same as: l 02:37: Phenergan) [place] 00 6.25 mg = 1/2 x 12.5 mg TAB Phenergan 2016-0 No Notes: Memori a 8-29 (Same as: l 02:37: Phenergan) [place] 00 6.25 mg = 1/2 x 12.5 mg TAB Phenergan 2016-0 No Notes: Memori a 8-29 (Same as: l 02:37: Phenergan) Kevin 00 6.25 mg = 1/2 x 12.5 mg TAB Phenergan 2016-0 No Notes: Memori a 8-29 (Same as: l 02:37: Phenergan) [place] 00 6.25 mg = 1/2 x 12.5 mg TAB Phenergan 2016-0 No Notes: Memori a 8-29 (Same as: l 02:37: Phenergan) [place] 00 6.25 mg = 1/2 x 12.5 mg TAB Phenergan 2016-0 No Notes: Memori a 8-29 (Same as: l 02:37: Phenergan) Kevin 00 6.25 mg = 1/2 x 12.5 mg TAB Phenergan 2016-0 No Notes: Memori a 8-29 (Same as: l 02:37: Phenergan) Kevin 00 6.25 mg = 1/2 x 12.5 mg TAB Triamcinolo 2015- Yes 1 appl, Mem oria ne 8- TOP, TID, l Acetonide 02:36: # 15 [...] 8-29 Instructio l tablet 02:36: ns, 0.5 Williams 00 tab PO Daily 30 day, 1 Refill(s) Aspirin 325 Yes 325 mg = 1 Memoria MG Oral 8-29 tab, PO, l Tablet 02:36: Daily, # Williams 00 30 tab, 0 Refill(s) potassium Yes [...] = 1 M emoria 500 MG Oral 8 cap, PO, l Capsule 02:36: Daily, # Galen n [Keflex] 00 40 cap, 0 Refill(s) sertraline Yes See Memoria 25 mg oral 04-22 Instructio l tablet 02:36: ns, 0.5 Kevin 00 tab PO Daily 30 day, 1 Refill(s) Aspirin 325 Yes 325 mg = 1 Memoria MG Oral 29 tab, PO, l Tablet 02:36: Daily, # Kevin 00 30 tab, 0 Refill(s) potassium Yes 15 mEq = 1 Me moria citrate 15 -29 tab, PO, l MEQ 02:36: Daily, 0 Williams Extended 00 Refill(s) Release Tablet [Urocit-K] Probiotic Yes 1 cap, PO, Me moria Formula 04-22 Daily, 0 l oral 02:36: Refill(s) Williams capsule 00 24 HR No 30 mg = 1 Memoria Nifedipine 8-29 tab, PO, l 30 MG 02:36: PRN, # 30 Williams Extended 00 tab, 0 Release Refill(s) Tablet [...] tab, PO, l tablet 02:36: Daily, 0 Williams 00 Refill(s) Cephalexin Yes 500 mg = [...] tab, PO, l Tablet 02:36: Daily, # Williams 00 30 tab, 0 Refill(s) potassium Yes 15 mEq = 1 Me moria citrate 15 -29 tab, PO, l MEQ 02:36: Daily, 0 Williams Extended 00 Refill(s) Release Tablet [Urocit-K] Probiotic Yes 1 cap, PO, Me moria Formula -29 Daily, 0 l oral 02:36: Refill(s) Kevin capsule 00 24 HR No 30 mg = 1 Memoria Nifedipine 8-29 tab, PO, l 30 MG 02:36: PRN, # 30 Williams Extended 00 tab, 0 Release Refill(s) Tablet [...] tab, PO, l tablet 02:36: Daily, 0 Williams 00 Refill(s) Cephalexin Yes 500 mg = [...] tab, PO, l Tablet 02:36: Daily, # Williams 00 30 tab, 0 Refill(s) potassium Yes 15 mEq = 1 Me moria citrate 15 8-29 tab, PO, l MEQ 02:36: Daily, 0 Williams Extended 00 Refill(s) Release Tablet [Urocit-K] Probiotic Yes 1 cap, PO, Me moria Formula 8-29 Daily, 0 l oral 02:36: Refill(s) Williams capsule 00 24 HR No 30 mg = 1 Memoria Nifedipine 8-29 tab, PO, l 30 MG 02:36: PRN, # 30 [facility] Extended 00 tab, 0 Release Refill(s) Tablet [...] Triamcinolo Yes 1 appl, Mem oria ne 8- TOP, TID, l Acetonide 02:36: # 15 [...] tab, PO, l tablet 02:36: Daily, 0 [facility] 00 Refill(s) Cephalexin Yes 500 mg = [...] 8-29 Daily, 0 l oral 02:36: Refill(s) [facility] capsule 00 24 HR No 30 mg [...] Triamcinolo Yes 1 appl, Mem oria ne 8- TOP, TID, l Acetonide 02:36: # 15 [...] tab, PO, l tablet 02:36: Daily, 0 [place] 00 Refill(s) Cephalexin Yes 500 mg = [...] tab, PO, l MEQ 02:36: Daily, 0 [facility] Extended 00 Refill(s) Release Tablet [Urocit-K] Probiotic Yes 1 cap, PO, Me moria Formula 04-22 Daily, 0 l oral 02:36: Refill(s) [facility] capsule 00 24 HR No 30 mg [...] tab, PO, l tablet 02:36: Daily, 0 [facility] 00 Refill(s) Cephalexin Yes 500 mg = 1 M emoria 500 MG Oral 8-29 cap, PO, l Capsule 02:36: Daily, # [place] n [Keflex] 00 40 cap, 0 Refill(s) sertraline Yes See Memoria 25 mg oral 8-29 Instructio l tablet 02:36: ns, 0.5 [facility] 00 tab PO Daily 30 day, 1 Refill(s) Aspirin 325 Yes 325 mg = 1 Memoria MG Oral 8-29 tab, PO, l Tablet 02:36: Daily, # [place] 00 30 tab, 0 Refill(s) potassium Yes 15 mEq = 1 Me moria citrate 15 8-29 tab, PO, l MEQ 02:36: Daily, 0 Kevin Extended 00 Refill(s) Release Tablet [Urocit-K] Probiotic Yes 1 cap, PO, Me moria Formula 04-22 Daily, 0 l oral 02:36: Refill(s) [place] capsule 00 24 HR No 30 mg = 1 [facility] Nifedipine 8-29 tab, PO, l 30 MG 02:36: PRN, # 30 [place] Extended 00 tab, 0 Release Refill(s) Tablet [...] tab, PO, l tablet 02:36: Daily, 0 [place] 00 Refill(s) Cephalexin Yes 500 mg = 1 M emoria 500 MG Oral 04-22 cap, PO, l Capsule 02:36: Daily, # [place] n [Keflex] 00 40 cap, 0 Refill(s) sertraline Yes See Memoria 25 mg oral 04-22 Instructio l tablet 02:36: ns, 0.5 [facility] 00 tab PO Daily 30 day, 1 Refill(s) Aspirin 325 Yes 325 mg = 1 Memoria MG Oral - tab, PO, l Tablet 02:36: Daily, # [place] 00 30 tab, 0 Refill(s) potassium Yes 15 mEq = 1 Me moria citrate 15 - tab, PO, l MEQ 02:36: Daily, 0 [place] Extended 00 Refill(s) Release Tablet [Urocit-K] Probiotic Yes 1 cap, PO, Me moria Formula 04-22 Daily, 0 l oral 02:36: Refill(s) Kevin capsule 00 24 HR No 30 mg = 1 Memoria Nifedipine -29 tab, PO, l 30 MG 02:36: PRN, # 30 [place] Extended 00 tab, 0 Release Refill(s) Tablet [...] = 1 Mem oria 2.5 mg oral - cap, PO, l capsule 02:36: Daily, 0 [place] n 00 Refill(s) folic acid Yes 0.8 mg = 1 M emoria 0.8 mg oral 04-22 tab, PO, l tablet 02:36: Daily, 0 [facility] 00 Refill(s) Cephalexin Yes 500 mg = 1 M emoria 500 MG Oral 04-22 cap, PO, l Capsule 02:36: Daily, # [place] [Keflex] 00 40 cap, 0 Refill(s) sertraline Yes See Memoria 25 mg oral 04-22 Instructio l tablet 02:36: ns, 0.5 [facility] 00 tab PO Daily 30 day, 1 Refill(s) Aspirin 325 Yes 325 mg = 1 Memoria MG Oral - tab, PO, l Tablet 02:36: Daily, # [place] 00 30 tab, 0 Refill(s) potassium Yes 15 mEq = 1 Me moria citrate 15 - tab, PO, l MEQ 02:36: Daily, 0 [place] Extended 00 Refill(s) Release Tablet [Urocit-K] Probiotic [...] = 1 Mem oria 2.5 mg oral 8 cap, PO, l capsule 02:36: Daily, 0 [place] n 00 Refill(s) folic acid Yes 0.8 mg = 1 M emoria 0.8 mg oral -29 tab, PO, l tablet 02:36: Daily, 0 [...] tab, PO, l Tablet 02:36: Daily, # [place] 00 30 tab, 0 Refill(s) potassium Yes [...] tab, PO, l Tablet 02:36: Daily, # [place] 00 30 tab, 0 Refill(s) potassium Yes 15 mEq = 1 Me moria citrate 15 8-29 tab, PO, l MEQ 02:36: Daily, 0 Kevin Extended 00 Refill(s) Release Tablet [Urocit-K] Probiotic Yes 1 cap, PO, Me moria Formula 04-22 Daily, 0 l oral 02:36: Refill(s) [facility] capsule 00 24 HR No 30 mg [...] Triamcinolo Yes 1 appl, Mem oria ne 8- TOP, TID, l Acetonide 02:36: # 15 [...] tab, PO, l tablet 02:36: Daily, 0 [facility] 00 Refill(s) Cephalexin Yes 500 mg = 1 M emoria 500 MG Oral 8 cap, PO, l Capsule 02:36: Daily, # [place] [Keflex] 00 40 cap, 0 Refill(s) sertraline Yes See Memoria 25 mg oral 04-22 Instructio l tablet 02:36: ns, 0.5 Kevin 00 tab PO Daily 30 day, 1 Refill(s) Aspirin 325 Yes 325 mg = 1 Memoria MG Oral 8-29 tab, PO, l Tablet 02:36: Daily, # [place] 00 30 tab, 0 Refill(s) potassium Yes [...] l 30 MG 02:36: PRN, # 30 [facility] Extended 00 tab, 0 Release Refill(s) Tablet [...] Triamcinolo Yes 1 appl, Mem oria ne 8- TOP, TID, l Acetonide 02:36: # 15 [...] tab, PO, l tablet 02:36: Daily, 0 [facility] 00 Refill(s) Cephalexin Yes 500 mg = 1 M emoria 500 MG Oral 8-29 cap, PO, l Capsule 02:36: Daily, # [place] [Keflex] 00 40 cap, 0 Refill(s) sertraline Yes See Memoria 25 mg oral -29 Instructio l tablet 02:36: ns, 0.5 [facility] 00 tab PO Daily 30 day, 1 Refill(s) Aspirin 325 Yes 325 mg = 1 Memoria MG Oral 8-29 tab, PO, l Tablet 02:36: Daily, # Kevin 00 30 tab, 0 Refill(s) potassium Yes 15 mEq = 1 Me moria citrate 15 8-29 tab, PO, l MEQ 02:36: Daily, 0 [place] Extended 00 Refill(s) Release Tablet [Urocit-K] Probiotic [...] Memoria 04-22 (Same as: l 02:32: Colace) Williams 00 (Do Not Crush) Acetaminoph No Notes: Do M emoria en 04-22 not exceed l 02:32: 4 gm/day. Kevin 00 (Same as: Tylenol) Docusate No Notes: Memoria 04-22 (Same as: l 02:32: Colace) Kevin 00 (Do Not Crush) Acetaminoph No Notes: Do M emoria en 04-22 not exceed l 02:32: 4 gm/day. Kevin 00 (Same as: Tylenol) Docusate No Notes: Memoria 8 (Same as: l 02:32: Colace) Kevin 00 (Do Not Crush) Acetaminoph No Notes: Do M emoria en 04-22 not exceed l 02:32: 4 gm/day. Kevin 00 (Same as: Tylenol) Docusate No Notes: Memoria 04-22 (Same as: l 02:32: Colace) Kevin 00 (Do Not Crush) Acetaminoph No Notes: Do M emoria en 04-22 not exceed l 02:32: 4 gm/day. Kevin 00 (Same as: Tylenol) Docusate No Notes: Memoria 8 (Same as: l 02:32: Colace) [facility] 00 (Do Not Crush) Acetaminoph No Notes: Do M emoria en 04-22 not exceed l 02:32: 4 gm/day. [facility] 00 (Same as: Tylenol) Docusate No Notes: Memoria 8- (Same as: l 02:32: Colace) Kevin 00 (Do Not Crush) Acetaminoph No Notes: Do M emoria en 8 not exceed l 02:32: 4 gm/day. [facility] 00 (Same as: Tylenol) Docusate No Notes: Memoria 8- (Same as: l 02:32: Colace) [facility] 00 (Do Not Crush) Acetaminoph No Notes: Do M emoria en 8 not exceed l 02:32: 4 gm/day. Kevin 00 (Same as: Tylenol) Docusate No Notes: Memoria 8- (Same as: l 02:32: Colace) [facility] 00 (Do Not Crush) Acetaminoph No Notes: Do M emoria en 04-22 not exceed l 02:32: 4 gm/day. Kevin 00 (Same as: Tylenol) Docusate No Notes: Memoria 8- (Same as: l 02:32: Colace) [facility] 00 (Do Not Crush) Acetaminoph No Notes: Do M emoria en 8 not exceed l 02:32: 4 gm/day. [facility] 00 (Same as: Tylenol) Docusate No Notes: Memoria 8- (Same as: l 02:32: Colace) Kevin 00 (Do Not Crush) Acetaminoph No Notes: Do M emoria en 8 not exceed l 02:32: 4 gm/day. Kevin 00 (Same as: Tylenol) Docusate No Notes: Memoria 8- (Same as: l 02:32: Colace) [facility] 00 (Do Not Crush) Acetaminoph No Notes: Do M emoria en 8- not exceed l 02:32: 4 gm/day. [facility] 00 (Same as: Tylenol) Docusate No Notes: Memoria 8- (Same as: l 02:32: Colace) [facility] 00 (Do Not Crush) Acetaminoph No Notes: Do M emoria en 8 not exceed l 02:32: 4 gm/day. Kevin 00 (Same as: Tylenol) Docusate No Notes: Memoria 8-29 (Same as: l 02:32: Colace) (Do Not [...] 00 PO, Daily, [Synthroid] 0 Refill(s) oxybutynin 2016- No 5 mg = 1 Mem oria [...] Yes 0 Memoria 8-29 Refill(s) l 01:37: [place] 00 Levothyroxi Yes 75 Memori a ne [...] 8-29 Refill(s) l 01:37: Kevin 00 Levothyroxi Yes [...] [Keflex] 00 cap, 0 Refill(s) Vitamin D3 2016 Yes 0 Memoria 8-29 Refill(s) l 01:37: [place] 00 Levothyroxi [id number] Yes 75 Memori a ne Sodium 8-29 [...] Yes 0 Memoria 8-29 Refill(s) l 01:37: [place] 00 Levothyroxi Yes 75 Memori a ne [...] Yes 0 Memoria 8-29 Refill(s) l 01:37: [place] 00 Levothyroxi 0 Yes 75 Memori a ne Sodium 8-29 microgram l 0.075 MG 01:37: = 1 tab, Mela nn Oral Tablet 00 PO, Daily, [Synthroid] 0 Refill(s) oxybutynin 0 No 5 mg = 1 Mem oria [...] 8-29 Refill(s) l 01:37: Kevin 00 Levothyroxi Yes [...] 00 :00 [facility] tablet Branch SYNTHROID 0 Yes [id number] Univ ers 75 mcg 9-23 ity of tablet 00:00: [place] 00 [facility] SYNTHROID 0 Yes [id number] Univ ers 75 mcg 9-23 ity of tablet 00:00: [place] 00 [facility] SYNTHROID 2014-0 Yes [id number] Univ ers 75 mcg 9-23 ity of tablet 00:00: [place] 00 [facility] SYNTHROID 0 Yes [id number] Univ ers 75 mcg 9-23 ity of tablet 00:00: [place] 00 [facility] SYNTHROID 2014-0 2022- No [id number] Uni vers 75 mcg 9-23 03-16 ity of tablet 00:00: 00:00 [place] 00 :00 [facility] SYNTHROID 2022- No [id number] Uni vers 75 mcg 9-23 -16 ity of tablet 00:00: 00:00 [place] 00 :00 [facility] Immunizations Ordered Filled Immunization Date Status Comments Sour e Immunization Name Name CHETNA 2022-03-14 Completed [facility] 00:00:00 [facility] BEKARENMAB 2022-03-14 Completed [facility] o f 00:00:00 [facility] BEKARENMAB 2022-03-14 Completed [facility] o f 00:00:00 [facility] BEKARENMAB 2022-03-14 Completed [facility] o f 00:00:00 [facility] BEKARENMAB 2022-03-14 Completed [facility] o f 00:00:00 [facility] BEKARENMAB 2022-03-14 Completed [facility] o f 00:00:00 [facility] BEKARENMAB 2022-03-14 Completed [facility] o f 00:00:00 [facility] BEKARENMAB 2022-03-14 Completed [facility] o f 00:00:00 [facility] BEKARENMAB 2022-03-14 Completed [facility] o f 00:00:00 [facility] BEKARENMAB 2022-03-14 Completed University o f 00:00:00 [facility] BEKARENMAB 2022-03-14 Completed [facility] o f 00:00:00 [facility] BEKARENMAB 2022-03-14 Completed [facility] o f 00:00:00 [facility] BEKARENMAB 2022-03-14 Completed [facility] o f 00:00:00 [facility] BEKARENMAB 2022-03-14 Completed [facility] o f 00:00:00 [facility] BEKARENMAB 2022-03-14 Completed University o f 00:00:00 [facility] BEKARENMAB 2022-03-14 Completed University o f 00:00:00 [facility] BEKARENMAB 2022-03-14 Completed University o f 00:00:00 [facility] BEKARENMAB 2022-03-14 Completed University o f 00:00:00 [facility] BEKARENTXB 2022-03-14 Completed University o f 00:00:00 [facility] BEBTELOVIMAB 2022-03-14 Completed University o f 00:00:00 [facility] BEBTELOVIMAB 2022-03-14 Completed University o f 00:00:00 [facility] BEBTELOVIMAB 2022-03-14 Completed University o f 00:00:00 [facility] BEBTELOVIMAB 2022-03-14 Completed University o f 00:00:00 [facility] BETHOMELOVIMAB 2022-03-14 Completed University o f 00:00:00 [facility] BEBTELOVIMAB 2022-03-14 Completed University o f 00:00:00 [facility] SARS-COV-2 COVID-19 2020-11-06 Completed Unive rsity of PFIZER VACCINE 00:00:00 [facility] SARS-COV-2 COVID-19 2020-11-06 Completed Unive rsity of PFIZER VACCINE 00:00:00 [facility] SARS-COV-2 COVID-19 2020-11-06 Completed Unive rsity of PFIZER VACCINE 00:00:00 [facility] SARS-COV-2 COVID-19 2020-11-06 Completed Unive rsity of PFIZER VACCINE 00:00:00 [facility] SARS-COV-2 COVID-19 2020-11-06 Completed Unive rsity of PFIZER VACCINE 00:00:00 [facility] SARS-COV-2 COVID-19 2020-11-06 Completed Unive rsity of PFIZER VACCINE 00:00:00 [facility] SARS-COV-2 COVID-19 2020-11-06 Completed Unive rsity of PFIZER VACCINE 00:00:00 [facility] SARS-COV-2 COVID-19 2020-11-06 Completed Unive rsity of PFIZER VACCINE 00:00:00 [facility] SARS-COV-2 COVID-19 2020-11-06 Completed Unive rsity of PFIZER VACCINE 00:00:00 [facility] SARS-COV-2 COVID-19 2020-11-06 Completed Unive rsity of PFIZER VACCINE 00:00:00 [facility] SARS-COV-2 COVID-19 2020-11-06 Completed Unive rsity of PFIZER VACCINE 00:00:00 [place] [facility] SARS-COV-2 COVID-19 2020-11-06 Completed Unive rsity of PFIZER VACCINE 00:00:00 [facility] [place] [facility] SARS-COV-2 COVID-19 2020-11-06 Completed Unive rsity of PFIZER VACCINE 00:00:00 [facility] [place] [facility] SARS-COV-2 COVID-19 2020-11-06 Completed Unive rsity of PFIZER VACCINE 00:00:00 [facility] [place] [facility] SARS-COV-2 COVID-19 2020-11-06 Completed Unive rsity of PFIZER VACCINE 00:00:00 [facility] [place] [facility] SARS-COV-2 COVID-19 2020-11-06 Completed Unive rsity of PFIZER VACCINE 00:00:00 [facility] [place] [facility] SARS-COV-2 COVID-19 2020-11-06 Completed Unive rsity of PFIZER VACCINE 00:00:00 [facility] [place] [facility] SARS-COV-2 COVID-19 2020-11-06 Completed Unive rsity of PFIZER VACCINE 00:00:00 [facility] [place] [facility] SARS-COV-2 COVID-19 2020-11-06 Completed Unive rsity of PFIZER VACCINE 00:00:00 [facility] [place] [facility] SARS-COV-2 COVID-19 2020-11-06 Completed Unive rsity of PFIZER VACCINE 00:00:00 [facility] [place] [facility] SARS-COV-2 COVID-19 2020-11-06 Completed Unive rsity of PFIZER VACCINE 00:00:00 [facility] [place] [facility] SARS-COV-2 COVID-19 2020-11-06 Completed Unive rsity of PFIZER VACCINE 00:00:00 [facility] [place] [facility] SARS-COV-2 COVID-19 2020-11-06 Completed Unive rsity of PFIZER VACCINE 00:00:00 [facility] [place] [facility] SARS-COV-2 COVID-19 2020-11-06 Completed Unive rsity of PFIZER VACCINE 00:00:00 [facility] [place] [facility] SARS-COV-2 COVID-19 2020-11-06 Completed Unive rsity of PFIZER VACCINE 00:00:00 [facility] SARS-COV-2 COVID-19 2020-10-16 Completed Unive rsity of PFIZER VACCINE 00:00:00 [facility] [place] [facility] SARS-COV-2 COVID-19 2020-10-16 Completed Unive rsity of PFIZER VACCINE 00:00:00 [facility] [place] [facility] SARS-COV-2 COVID-19 2020-10-16 Completed Unive rsity of PFIZER VACCINE 00:00:00 [facility] [place] [facility] SARS-COV-2 COVID-19 2020-10-16 Completed Unive rsity of PFIZER VACCINE 00:00:00 [facility] [place] [facility] SARS-COV-2 COVID-19 2020-10-16 Completed Unive rsity of PFIZER VACCINE 00:00:00 [facility] [place] [facility] SARS-COV-2 COVID-19 2020-10-16 Completed Unive rsity of PFIZER VACCINE 00:00:00 [facility] [place] [facility] SARS-COV-2 COVID-19 2020-10-16 Completed Unive rsity of PFIZER VACCINE 00:00:00 [facility] [place] [facility] SARS-COV-2 COVID-19 2020-10-16 Completed Unive rsity of PFIZER VACCINE 00:00:00 [facility] [place] [facility] SARS-COV-2 COVID-19 2020-10-16 Completed Unive rsity of PFIZER VACCINE 00:00:00 [facility] [place] [facility] SARS-COV-2 COVID-19 2020-10-16 Completed Unive rsity of PFIZER VACCINE 00:00:00 [facility] [place] [facility] SARS-COV-2 COVID-19 2020-10-16 Completed Unive rsity of PFIZER VACCINE 00:00:00 [facility] [place] [facility] SARS-COV-2 COVID-19 2020-10-16 Completed Unive rsity of PFIZER VACCINE 00:00:00 [facility] [place] [facility] SARS-COV-2 COVID-19 2020-10-16 Completed Unive rsity of PFIZER VACCINE 00:00:00 [facility] [place] [facility] SARS-COV-2 COVID-19 2020-10-16 Completed Unive rsity of PFIZER VACCINE 00:00:00 [facility] [place] [facility] SARS-COV-2 COVID-19 2020-10-16 Completed Unive rsity of PFIZER VACCINE 00:00:00 [facility] [place] [facility] SARS-COV-2 COVID-19 2020-10-16 Completed Unive rsity of PFIZER VACCINE 00:00:00 [facility] SARS-COV-2 COVID-19 2020-10-16 Completed Unive rsity of PFIZER VACCINE 00:00:00 [facility] SARS-COV-2 COVID-19 2020-10-16 Completed Unive rsity of PFIZER VACCINE 00:00:00 [facility] SARS-COV-2 COVID-19 2020-10-16 Completed Unive rsity of PFIZER VACCINE 00:00:00 [facility] SARS-COV-2 COVID-19 2020-10-16 Completed Unive rsity of PFIZER VACCINE 00:00:00 [facility] SARS-COV-2 COVID-19 2020-10-16 Completed Unive rsity of PFIZER VACCINE 00:00:00 [facility] SARS-COV-2 COVID-19 2020-10-16 Completed Unive rsity of PFIZER VACCINE 00:00:00 [facility] SARS-COV-2 COVID-19 2020-10-16 Completed Unive rsity of PFIZER VACCINE 00:00:00 [facility] SARS-COV-2 COVID-19 2020-10-16 Completed Unive rsity of PFIZER VACCINE 00:00:00 [facility] SARS-COV-2 COVID-19 2020-10-16 Completed Unive rsity of PFIZER VACCINE 00:00:00 [facility] Influenza High Dose 2019-06-03 Completed Unive rsity of 00:00:00 [facility] Influenza High Dose 2019-06-03 Completed Unive rsity of 00:00:00 [facility] Influenza High Dose 2019-06-03 Completed Unive rsity of 00:00:00 [facility] Influenza High Dose 2019-06-03 Completed Unive rsity of 00:00:00 [facility] Influenza High Dose 2019-06-03 Completed Unive rsity of 00:00:00 [facility] Influenza High Dose 2019-06-03 Completed Unive rsity of 00:00:00 [facility] Influenza High Dose 2019-06-03 Completed Unive rsity of 00:00:00 [facility] Influenza High Dose 2019-06-03 Completed Unive rsity of 00:00:00 [facility] Influenza High Dose 2019-06-03 Completed Unive rsity of 00:00:00 [facility] Influenza High Dose 2019-06-03 Completed Unive rsity of 00:00:00 [facility] Influenza High Dose 2019-06-03 Completed Unive rsity of 00:00:00 [facility] Influenza High Dose 2019-06-03 Completed Unive rsity of 00:00:00 [facility] Influenza High Dose 2019-06-03 Completed Unive rsity of 00:00:00 [facility] Influenza High Dose 2019-06-03 Completed Unive rsity of 00:00:00 [facility] Influenza High Dose 2019-06-03 Completed Unive rsity of 00:00:00 [facility] Influenza High Dose 2019-06-03 Completed Unive rsity of 00:00:00 [facility] Influenza High Dose 2019-06-03 Completed Unive rsity of 00:00:00 [facility] Influenza High Dose 2019-06-03 Completed Unive rsity of 00:00:00 [facility] Influenza High Dose 2019-06-03 Completed Unive rsity of 00:00:00 [facility] Influenza High Dose 2019-06-03 Completed Unive rsity of 00:00:00 [facility] Influenza High Dose 2019-06-03 Completed Unive rsity of 00:00:00 [facility] Influenza High Dose 2019-06-03 Completed Unive rsity of 00:00:00 [facility] Influenza High Dose 2019-06-03 Completed Unive rsity of 00:00:00 [facility] Influenza High Dose 2019-06-03 Completed Unive rsity of 00:00:00 [facility] Influenza High Dose 2019-06-03 Completed Unive rsity of 00:00:00 [facility] Pneumococcal 13 2018-06-19 Completed Universit y of Conjugate, PCV13 00:00:00 [place] [facility] dical (Prevnar 13) Branch Pneumococcal 13 [...] Completed Universit y of Conjugate, PCV13 00:00:00 [facility] dical (Prevnar 13) Branch Pneumococcal 13 2018-06-19 [...] Universit y of Conjugate, PCV13 00:00:00 [place] (Pre[place]ar 13) [facility] Influenza High Dose 2016-09-03 Completed Unive rsity of 00:00:00 [facility] Influenza High Dose 2016-09-03 Completed Unive rsity of 00:00:00 [facility] Influenza High Dose 2016-09-03 Completed Unive rsity of 00:00:00 [facility] Influenza High Dose 2016-09-03 Completed Unive rsity of 00:00:00 [facility] Influenza High Dose 2016-09-03 Completed Unive rsity of 00:00:00 [facility] Influenza High Dose 2016-09-03 Completed Unive rsity of 00:00:00 [facility] Influenza High Dose 2016-09-03 Completed Unive rsity of 00:00:00 [facility] Influenza High Dose 2016-09-03 Completed Unive rsity of 00:00:00 [facility] Influenza High Dose 2016-09-03 Completed Unive rsity of 00:00:00 [facility] Influenza High Dose 2016-09-03 Completed Unive rsity of 00:00:00 [facility] Influenza High Dose 2016-09-03 Completed Unive rsity of 00:00:00 [facility] Influenza High Dose 2016-09-03 Completed Unive rsity of 00:00:00 [facility] Influenza High Dose 2016-09-03 Completed Unive rsity of 00:00:00 [facility] Influenza High Dose 2016-09-03 Completed Unive rsity of 00:00:00 [facility] Influenza High Dose 2016-09-03 Completed Unive rsity of 00:00:00 [facility] Influenza High Dose 2016-09-03 Completed Unive rsity of 00:00:00 [facility] Influenza High Dose 2016-09-03 Completed Unive rsity of 00:00:00 [facility] Influenza High Dose 2016-09-03 Completed Unive rsity of 00:00:00 [facility] Influenza High Dose 2016-09-03 Completed Unive rsity of 00:00:00 [facility] Influenza High Dose 2016-09-03 Completed Unive rsity of 00:00:00 [facility] Influenza High Dose 2016-09-03 Completed Unive rsity of 00:00:00 [facility] Influenza High Dose 2016-09-03 Completed Unive rsity of 00:00:00 [facility] Influenza High Dose 2016-09-03 Completed Unive rsity of 00:00:00 [facility] Influenza High Dose 2016-09-03 Completed Unive rsity of 00:00:00 [facility] Influenza High Dose 2016-09-03 Completed Unive rsity of 00:00:00 [facility] Vital Signs Vital Name Observation Time Observation Value Comments Source Systolic blood 2023-02-22 03:30:00 114 mm[Hg] Univer sity of pressure [facility] Diastolic blood 2023-02-22 03:30:00 90 mm[Hg] Unive rsity of pressure [facility] Heart rate 2023-02-22 03:30:00 [facility] Respiratory rate 2023-02-22 03:30:00 18 /min [facility] 2023-02-22 03:30:00 97 /min [facility] Arterial blood by [facility] Pulse oximetry [facility] Body temperature 2023-02-22 00:25:00 36.72 [facility] [place] [facility] Body height 2023-02-22 00:25:00 160 cm [facility] Body weight 2023-02-22 00:25:00 50.803 kg [facility] BMI 2023-02-22 00:25:00 19.84 kg/m2 [facility] Systolic blood 2023-01-21 14:57:00 138 mm[Hg] Univer sity of pressure [facility] Diastolic blood 2023-01-21 14:57:00 57 mm[Hg] Unive rsity of pressure [facility] Heart rate 2023-01-21 14:57:00 58 /min [facility] [facility] Respiratory rate 2023-01-21 14:57:00 19 /min Univ ersity [facility] Body height 2023-01-21 14:57:00 160 cm [facility]i ty [facility] Body weight 2023-01-21 14:57:00 51.211 kg Universi ty [facility] BMI 2023-01-21 14:57:00 20.00 kg/m2 [facility] Oxygen saturation in 2023-01-21 14:57:00 98 /min University of Arterial blood by [facility] Pulse oximetry Branch Systolic blood 2022-12-26 16:21:00 136 mm[Hg] Univer sity of [facility] Diastolic blood 2022-12-26 16:21:00 60 mm[Hg] Unive rsity of [facility] Heart rate 2022-12-26 16:21:00 58 /min [facility] Body temperature 2022-12-26 16:21:00 36.17 Keira [facility] Body height 2022-12-26 16:21:00 160 cm [facility] Body weight 2022-12-26 16:21:00 51.574 kg [facility] BMI 2022-12-26 16:21:00 20.14 kg/m2 [facility] Oxygen saturation in 2022-12-26 16:21:00 98 /min University of Arterial blood by [facility] Pulse oximetry Branch BMI 2022-11-29 14:57:00 19.27 kg/m2 [facility] Oxygen saturation in 2022-11-29 14:57:00 98 /min University of Arterial blood by [facility] Pulse oximetry Branch Systolic blood 2022-11-29 14:57:00 132 mm[Hg] Univer sity of [facility] Diastolic blood 2022-11-29 14:57:00 58 mm[Hg] Unive rsity of [facility] Heart rate 2022-11-29 14:57:00 55 /min [facility] Body height 2022-11-29 14:57:00 160 cm [facility] Body weight 2022-11-29 14:57:00 49.351 kg [facility] Systolic blood 2022-11-21 14:34:00 143 mm[Hg] Univer sity of [facility] Diastolic blood 2022-11-21 14:34:00 70 mm[Hg] Unive rsity of [facility] Heart rate 2022-11-21 14:34:00 54 /min [facility] Body temperature 2022-11-21 14:34:00 36.5 Keira [facility] Body weight 2022-11-21 14:34:00 46.267 kg [facility] BMI 2022-11-21 14:34:00 18.07 kg/m2 [facility] Oxygen saturation in 2022-11-21 14:34:00 94 /min University of Arterial blood by [facility] andrez Pulse oximetry Branch Systolic blood 2022-11-11 16:20:00 102 mm[Hg] Univer sity of [facility] Diastolic blood 2022-11-11 16:20:00 45 mm[Hg] Unive rsity of [facility] Heart rate 2022-11-11 16:20:00 68 /min [facility] Body temperature 2022-11-11 16:20:00 36.22 Keira [facility] Respiratory rate 2022-11-11 16:20:00 18 /min [facility] Oxygen saturation in 2022-11-11 16:20:00 95 /min University of Arterial blood by [facility] andrez Pulse oximetry Branch Body weight 2022-11-10 08:45:00 46.494 kg [facility] BMI 2022-11-10 08:45:00 18.16 kg/m2 [facility] Body height 2022-11-07 20:10:00 160 cm [facility] Systolic blood 2022-11-07 19:20:00 169 mm[Hg] Univer sity of [facility] Diastolic blood 2022-11-07 19:20:00 74 mm[Hg] Unive rsity of [facility] Oxygen saturation in 2022-11-07 19:20:00 96 /min 2L [place] University of Arterial blood by [facility] andrez Pulse oximetry Branch Heart rate 2022-11-07 19:18:00 71 /min [facility] Body temperature 2022-11-07 19:18:00 36.22 Keira [facility] Respiratory rate 2022-11-07 19:18:00 16 /min [facility] Body height 2022-11-07 19:18:00 160 cm [facility] Body weight 2022-11-07 19:18:00 48.535 kg [facility] BMI 2022-11-07 19:18:00 18.95 kg/m2 Universi ty of [facility] Systolic blood 2022-05-23 18:08:00 164 mm[Hg] Univer sity of pressure [facility] Diastolic blood 2022-05-23 18:08:00 52 mm[Hg] Unive rsity of [facility] Heart rate 2022-05-23 18:08:00 54 /min Universi ty of [facility] Body temperature 2022-05-23 18:08:00 36.89 Keira Univ ersity of [facility] Body weight 2022-05-23 18:08:00 47.628 kg Universi ty of [facility] BMI 2022-05-23 18:08:00 18.60 kg/m2 Universi ty [facility] Oxygen saturation in 2022-05-23 18:08:00 94 /min [facility] Arterial blood by [facility] Pulse oximetry Branch Systolic blood 2022-04-05 16:45:00 178 mm[Hg] Univer sity of pressure [facility] Branch Diastolic blood 2022-04-05 16:45:00 61 mm[Hg] Unive rsity of pressure [facility] Body height 2022-04-05 16:43:00 160 cm Universi ty of [facility] Body weight 2022-04-05 16:43:00 48.988 kg [facility] BMI 2022-04-05 16:43:00 19.13 kg/m2 [facility] Height 2020-08-23 14:57:00 160.02 cm [facility] Weight 2020-08-23 14:57:00 [facility] BMI Calculated 2020-08-23 14:57:00 Shonda al Kevin Systolic (mm Hg) 2020-06-14 15:46:00 Arturo rodríguez Kevin Diastolic (mm Hg) 2020-06-14 15:46:00 Mem orial [facility] Heart Rate 2020-06-14 15:46:00 [facility] Height 2020-06-14 15:46:00 160.02 cm [facility] Weight 2020-06-14 15:46:00 [facility] BMI Calculated 2020-06-14 15:46:00 Memori al [facility] Systolic (mm Hg) 2019-06-02 17:15:00 Arturo rial Kevin Diastolic (mm Hg) 2019-06-02 17:15:00 Mem orial Kevin Systolic (mm Hg) 2019-06-02 16:40:00 Arturo rial Williams Diastolic (mm Hg) 2019-06-02 16:40:00 Mem orial Kevin Systolic (mm Hg) 2019-06-02 16:10:00 Arturo rial Kevin Diastolic (mm Hg) 2019-06-02 16:10:00 Mem orial Kevin Temperature Oral (F) 2019-06-02 11:36:00 98.4 F [facility] Height 2019-06-02 10:43:00 157.48 cm [facility] Weight 2019-06-02 10:43:00 [facility] BMI Calculated 2019-06-02 10:43:00 Memori al Kevin Systolic (mm Hg) 2019-05-05 19:46:00 Arturo rial Kevin Diastolic (mm Hg) 2019-05-05 19:46:00 Mem orial Kevin Heart Rate 2019-05-05 19:46:00 [facility] Respitory Rate 2019-05-05 19:46:00 Memori al [facility] Height 2019-05-05 19:46:00 152.4 cm [facility] Weight 2019-05-05 19:46:00 [facility] BMI Calculated 2019-05-05 19:46:00 Memori al [facility] Systolic (mm Hg) 2016-10-29 13:36:00 Arturo rial Williams Diastolic (mm Hg) 2016-10-29 13:36:00 Mem orial Kevin Systolic (mm Hg) 2016-10-29 10:30:00 Arturo rial Kevin Diastolic (mm Hg) 2016-10-29 10:30:00 Mem orial [facility] Systolic (mm Hg) 2016-10-29 08:30:00 Arturo rial Williams Diastolic (mm Hg) 2016-10-29 08:30:00 Mem orial Kevin Temperature Oral (F) 2016-10-29 05:00:00 96.6 F [facility] Temperature Oral (F) 2016-10-28 18:45:00 97.0 F [facility] Respitory Rate 2016-10-28 18:45:00 Memori al [facility] BMI Calculated 2016-10-28 18:23:00 Memori al [facility] Weight 2016-10-28 18:23:00 [facility] Height 2016-10-28 18:23:00 160.02 cm [facility] Systolic (mm Hg) 2016-04-26 20:27:00 Arturo rial [facility] Diastolic (mm Hg) 2016-04-26 20:27:00 Mem orial [facility] Heart Rate 2016-04-26 20:27:00 [facility] Temperature Oral (F) 2016-04-26 20:27:00 98.4 F [facility] Respitory Rate 2016-04-26 20:27:00 Memori al [facility] Systolic (mm Hg) 2016-04-26 16:51:00 Arturo rial Kevin Diastolic (mm Hg) 2016-04-26 16:51:00 Mem orial Kevin Respitory Rate 2016-04-26 16:51:00 Memori al [facility] Temperature Oral (F) 2016-04-26 16:51:00 98.4 F [facility] Heart Rate 2016-04-26 16:51:00 [facility] Diastolic (mm Hg) 2016-04-26 13:02:00 Mem orial Kevin Systolic (mm Hg) 2016-04-26 13:02:00 Arturo rial [facility] Heart Rate 2016-04-26 13:02:00 [facility] Respitory Rate 2016-04-26 13:00:00 Memori al Kevin Temperature Oral (F) 2016-04-26 13:00:00 98.1 F [facility] BMI Calculated 2016-04-22 01:09:00 Memori al Kevin Weight 2016-04-22 01:09:00 [facility] Height 2016-04-22 01:09:00 160.02 cm [facility] Procedures Procedure Date / Time Performing Clinician Source Performed ABORH CONFIRMATION (LAB 2023-02-22 02:56:00 Jefe Mae [facility] ONLY) Medical Branch CT CERVICAL SPINE WO 2023-02-22 01:47:18 Jefe Mae [facility] CONTRAST Medical Branch XR ANKLE <3 VW LEFT 2023-02-22 01:31:50 Jefe Mae [facility] XR FEMUR 2 VW LEFT 2023-02-22 01:31:50 Jefe Mae [facility] XR HIPS 3 VW LEFT 2023-02-22 01:31:50 Jefe Mae [facility] XR HUMERUS 2 VW LEFT 2023-02-22 01:31:50 Jefe Mae [facility] XR SHOULDER 2+ VW LEFT 2023-02-22 01:31:50 [facility] COMP. METABOLIC PANEL 2023-02-22 01:03:00 Jefe Mae [facility] ([id number]) [facility] CBC WITH DIFF 2023-02-22 01:03:[address] [facility] PROTHROMBIN TIME / INR 2023-02-22 01:03:00 Jefe Mae [facility] ACTIVATED PARTIAL THRMPLAS 2023-02-22 01:03:00 Jefe Mae [facility] HB ABO GROUPING 2023-02-22 01:03:[address] [facility] NOTICE OF PRIVACY 2023-02-22 00:24:15 Doctor Unakenzieigned, [facility] PRACTICES [facility] REFERRAL- REQUEST/RESPONSE 2023-02-21 05:01:00 [facility] EXTERNAL PROVIDER - ADC 2022-12-19 05:01:00 Doctor Chel, [facility] CARDIOLOGY [facility] EXTERNAL PROVIDER - ADC 2022-12-02 05:01:00 Doctor Unassigned, [facility] REFERRAL [facility] BASIC METABOLIC PANEL (NA, 2022-11-10 09:54:00 [facility] K, CL, CO2, GLUCOSE, BUN, Medica l Branch CREATININE, CA) CBC WITH DIFF 2022-11-10 09:54:00 Kellie Pereira [facility] N-TERMINAL PRO-BNP 2022-11-10 09:54:00 Kellie Pereira [facility] EKG-12 LEAD 2022-11-09 13:38:16 Gary [facility] TROPONIN I 2022-11-09 09:11:00 Ruthie Hester [facility] BASIC METABOLIC PANEL (NA, 2022-11-09 09:11:00 Kellie Pereira [facility] K, CL, CO2, GLUCOSE, BUN, Medica l Branch CREATININE, CA) CBC WITH DIFF 2022-11-09 09:11:00 Gary [facility] N-TERMINAL PRO-BNP 2022-11-09 09:11:00 Gary [facility] TROPONIN I 2022-11-08 21:42:00 Gary [facility] TRANSTHORACIC ECHO (TTE) 2022-11-08 14:55:00 [facility]eraj [facility] COMPLETE [facility] PHOSPHORUS 2022-11-08 11:28:[address] [facility] MAGNESIUM 2022-11-08 11:28:[address] [facility] FERRITIN SERUM 2022-11-08 11:28:[address] [facility] VITAMIN B12, LEVEL 2022-11-08 11:28:00 Neeraj Wei [facility] FOLATE 2022-11-08 11:28:[address] [facility] TROPONIN I 2022-11-08 11:28:[address] [facility] THYROID STIMULATING 2022-11-08 11:28:00 Neeraj Wei [facility] HORMONE [facility] HEPATIC FUNCTION PANEL 2022-11-08 11:28:00 Neeraj Wei [facility] ([id number]) (ALB,T.PRO,BILI Medical Branch T,BU/BC,ALT,AST,ALK PHOS) BASIC METABOLIC PANEL (NA, 2022-11-08 11:28:00 Neeraj Wei [facility] K, CL, CO2, GLUCOSE, BUN, Medica l Branch CREATININE, CA) DIFF CONSULT BY 2022-11-08 11:28:00 Neeraj Wei [facility] CBC WITH DIFF 2022-11-08 11:28:[address] [facility] PROTHROMBIN TIME / INR 2022-11-08 11:28:00 Neeraj Wei [facility] ACTIVATED PARTIAL THRMPLAS 2022-11-08 11:28:00 [facility] N-TERMINAL PRO-BNP 2022-11-08 11:28:00 Neeraj Wei [facility] VITAMIN D, 25-OH 2022-11-08 11:28:00 Sanjuana [facility] DIFF CONSULT 2022-11-08 11:28:00 Sanjuana [facility] URINE CULTURE 2022-11-08 03:55:00 Singer [facility] CT ABDOMEN PELVIS W 2022-11-07 23:17:00 Singer [facility] CONTRAST [facility] CT CHEST PULMONARY 2022-11-07 23:17:00 Singer [facility] ANGIOGRAM [facility] URINALYSIS 2022-11-07 21:12:00 Singer [facility] XR CHEST 1 VW 2022-11-07 20:37:01 Singer [facility] TROPONIN I 2022-11-07 20:16:00 Singer [facility] COMP. METABOLIC PANEL 2022-11-07 20:16:00 Ger Armstrong [facility] ([id number]) [facility] IRON PANEL 2022-11-07 20:16:[address] [facility] CBC WITH DIFF 2022-11-07 20:16:00 Singer [facility] RAPID INFLUENZA A/B 2022-11-07 20:16:00 Singer Ger [facility] N-TERMINAL PRO-BNP 2022-11-07 20:16:00 Singer [facility] COVID-19 (ID NOW RAPID 2022-11-07 20:16:00 Ger Armstrong [facility] TESTING) Medical Branch LAB ONLY COVID 2022-11-07 20:16:00 Ger Armstrong [facility] [place] INTERPRETATION Medical Branch HB ECG ROUTINE & RHYTHM 2022-11-07 20:14:49 Ger Armstrong [facility] STRIP Medical Branch CONSENT/REFUSAL FOR 2022-11-07 20:11:36 Doctor Unassigned, [facility] DIAGNOSIS AND TREATMENT [facility] ASSIGNMENT OF BENEFITS 2022-05-23 17:57:13 Doctor Unassigned, [facility] [id number] 2021-09-18 00:00:00 HAAER [facility] [id number] 2021-09-18 00:00:00 HAAER [facility] [id number] 2021-09-18 00:00:00 HAAER [facility] [id number] 2021-09-18 00:00:00 HAAER [facility] [id number] 2021-09-18 00:00:00 HAAER [facility] GASTROINTESTINAL PANEL 2021-08-16 20:00:00 [facility] 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 Martines prosthesis<sup>1</sup> Placement of stent in [facility] cardiac conduit Plan of Care Planned Activity Planned Date Details Comments Source Future Scheduled 2023-02-07 SHINGLES VACCINES (1 Met [facility] Hospital Test 06:26:43 of 2) [code = SHINGLES VACCINES (1 of 2)] Future Scheduled 2023-02-07 65+ [facility]CCAL [facility] 06:26:43 VACCINE (2 - PPSV23 if available, else PCV20) [code = 65+ PNEUMOCOCCAL VACCINE (2 - PPSV23 if available, else PCV20)] Future Scheduled 2023-02-07 COVID-19 VACCINE (4 - [facility] Hospital Test 06:26:43 Pfizer series) [code = COVID-19 VACCINE (4 - Pfizer series)] Future Scheduled 2023-02-07 INFLUENZA VACCINE [facility] Test 06:26:43 [code = INFLUENZA VACCINE] Future Scheduled 2023-02-07 SHINGLES VACCINES (1 [facility] Test 06:26:43 of 2) [code = SHINGLES VACCINES (1 of 2)] Future Scheduled 2023-02-07 65+ PNEUMOCOCCAL Methodi Hospital Test 06:26:43 VACCINE (2 - PPSV23 [...] Future Scheduled 2022-08-27 SHINGLES VACCINES (1 Met [facility] Hospital Test 09:13:03 of 2) [code = SHINGLES VACCINES (1 of 2)] Future Scheduled 2022-08-27 65+ PNEUMOCOCCAL Method[facility] Hospital Test 09:13:03 VACCINE (2 - PPSV23 if available, else PCV20) [code = 65+ PNEUMOCOCCAL VACCINE (2 - PPSV23 if available, else PCV20)] Future Scheduled 2022-08-27 COVID-19 VACCINE (4 - [facility] Test 09:13:03 Booster for Pfizer series) [code = COVID-19 VACCINE (4 - Booster for Pfizer series)] Future Scheduled 2022-08-27 INFLUENZA VACCINE [facility] Test 09:13:03 [code = INFLUENZA VACCINE] Future Scheduled 2022-06-28 HEPATITIS B VACCINES Met [facility] Test 18:57:48 (1 of 3 - 3-dose series) [code = HEPATITIS B VACCINES (1 of 3 - 3-dose series)] Future Scheduled 2022-06-28 SHINGLES VACCINES (1 Met [facility] Test 18:57:48 of 2) [code = SHINGLES VACCINES (1 of 2)] Future Scheduled 2022-06-28 65+ PNEUMOCOCCAL Method[facility] Hospital Test 18:57:48 VACCINE (2 - PPSV23 if available, else PCV20) [code = 65+ PNEUMOCOCCAL VACCINE (2 - PPSV23 if available, else PCV20)] Future Scheduled 2022-06-28 COVID-19 VACCINE (4 - Me [facility] Hospital Test 18:57:48 Booster for Pfizer series) [code = COVID-19 VACCINE (4 - Booster for Pfizer series)] Future Scheduled 2022-06-28 INFLUENZA VACCINE Method ist Hospital Test 18:57:48 [code = INFLUENZA VACCINE] Future Scheduled 2022-04-12 HEPATITIS B VACCINES Met [facility] Test 01:52:51 (1 of 3 - 3-dose series) [code = HEPATITIS B VACCINES (1 of 3 - 3-dose series)] Future Scheduled 2022-04-12 SHINGLES VACCINES (1 Met [facility] Hospital Test 01:52:51 of 2) [code = [...] series)] Future Scheduled 2022-04-12 INFLUENZA VACCINE [facility] Test 01:52:51 [code = INFLUENZA VACCINE] Encounters Start End Encounter Admission Attending Care Care Encounter Source Date/Time Date/Time Type Type Clinicians Facility Department ID 2022-05-03 Inpatient VINCENZO [facility] [id number] [facility] 10:30:[address] 2021-06-24 Outpatient Jeovany REYEZ [facility] CHANTE [id number] Univers 10:58:25 [facility] 2021-06-23 Outpatient Jeovany RYEEZ SCADONIS CHANTE [id number] Univers 23:07:21 RIKI [facility] 2023-07-24 2023-07-24 Outpatient Jeovany WATTS [facility] [id number] Univers 13:30:00 13:30:00 ETTA [facility] 2023-04-04 2023-04-04 Outpatient Jeovany VILLASEÑOR [facility] [id number] Univers 11:30:00 11:30:00 YUSUF [facility] 2023-04-04 2023-04-04 Outpatient Jeovany VILLASEÑOR [facility] [id number] Univers 11:00:00 11:00:00 YUSUF [facility] 2023-03-17 2023-03-17 [id number] Univers 14:45:00 14:45:00 STEPHANIE itirene o f [facility] 2023-02-26 2023-02-26 [facility] [id number] Univers 00:00:00 00:00:00 Etta MACIEL 350.1.13.10 ity [facility] [id number] [id number] N[place] dical NAL 059 [facility] 2023-02-24 2023-02-24 [facility] [id number] Univers 00:00:00 00:00:00 YUSUF vines [facility] 2023-02-21 2023-02-22 Emergency X [facility] ERT [id number] Univers 19:37:00 00:05:00 JEFE jasmyn [facility] 2023-02-21 2023-02-22 Emergency [facility] [id number] Univers 19:37:00 00:05:00 Jefe MACIEL 350.1.13.10 i ty [facility] [place].7.2.[place] [id number] [facility] 084 [place]bal[place] 2023-02-21 2023-02-21 Orders Doctor DEIRDRE 1.2.840.114 [id number] Univers 00:00:00 00:00:00 Only Unassigned, VELVET 350.1.13.[address] [facility] 4.2.7.2.686 Laurent as [id number] [facility] 009 Archbal[place] 2023-02-21 2023-02-21 Telephone Black, [facility] 1.2.840.114 [id number] Univers 00:00:00 00:00:00 Stephanie MACIEL 350.1.13.10 ity of [place] [id number] Nj dical NAL 204 [facility] 2023-02-20 2023-02-20 Telephone [facility] [id number] [facility] 00:00:00 00:00:00 Robbi MACIEL 350.1.13.10 i ty of [facility] 4[place].7.[place] [id number] Nj dic[address] 2023-02-18 2023-02-18 [facility] [id number] Univers 08:11:06 08:10:00 SENDIL ity [facility] 2023-01-21 2023-01-21 [facility] [id number] Univers 10:00:00 10:41:43 SENDIL ity [facility] 2023-01-21 2023-01-21 Office [facility] [id number] Univers 10:00:00 10:41:43 Visit Etta MACIEL 350.1.13.10 ity of [facility] [place] [id number] [address] 2023-01-07 2023-01-07 Refill [facility] [id number] Univers 00:00:00 00:00:00 Sendlucio MACIEL 350.1.13.10 ity of [place] [id number] [address] 2022-12-26 2022-12-26 Outpatient R CUONG ARTHUR [facility] [id number] Univers 11:20:00 11:56:50 CUONG ARTHUR itUT [facility] 2022-12-26 2022-12-26 Office [facility] 1.2.840.114 [id number] Univers 11:20:00 11:56:50 Visit Alberto MACIEL 350.1.13.10 ity of cur[place].2.[place] [id number] Nj dicla NAL [address] [place] [address] 2022-12-19 2022-12-19 Orders Doctor DEIRDRE 1.2.840.114 [id number] Univers 00:00:00 00:00:00 Only Unassigned, VELVET 350.1.13.[address] [facility] 4.2.7.2.686 Laurent as [id number] [address] 2022-12-02 2022-12-02 Telephone Mac [facility] [id number] Univers 00:00:00 00:00:00 Etta MACIEL 350.1.13.10 ity of [place] [id number] Nj dical NAL 059 [facility] 2022-12-02 2022-12-02 Orders Doctor DEIRDRE 1.2.840.114 [id number] Univers 00:00:00 00:00:00 Only Unassigned, VELVET 350.1.13.[address] [facility] 4.2.7.2.686 Laurent as [id number] [address] 2022-11-29 2022-11-29 Consumer Insights Intern 2, Adc Lab [facility] 1.2.840.114 [id number] Univers 09:30:00 10:56:55 Visit Etta Watts 350.1.13. 10 ity of [place] [id number] [facility] 353 [facility] 2022-11-29 2022-11-29 Outpatient R MAC SCADONIS [facility] [id number] Univers 10:00:00 10:32:38 SENDIL ity of [facility] 2022-11-29 2022-11-29 Office Mca [facility] 1.2.840.114 [id number] Univers 10:00:00 10:32:38 Visit Etta MACIEL 350.1.13.10 ity of [place] [id number] Nj dicla NAL 059 [facility] 2022-11-21 2022-11-21 Nurse 1, Adc Infusion Nurse [facility] 1.2. 840.114 [id number] Univers 10:00:00 10:15:00 Visit Yusuf Villaseñor 350.1.13.10 ity of [facility] 4.2.7.2.[place] [id number] [facility] 053 Branch 2022-11-21 2022-11-21 Outpatient R CHARLEEN [facility] [id number] Univers 10:00:00 10:00:00 YUSUF vines [facility] 2022-11-12 2022-11-12 Transition DelucaROSARIOGary 1.2.840.114 [id number] Univers 00:00:00 00:00:00 of Care Taniya CRAMER 350.1.13.10 i ty of [place] [id number] [facility] 403 Branch 2022-11-07 2022-11-11 Hospital Ger Armstrong [facility] 1.2.840.1 [id number] Univers 15:15:00 13:18:00 Encounter Ruthie Hester 350.1.13.10 ity [facility] 4[place].7.2.[place] [id number] [facility] 081 Branch 2022-11-07 2022-11-07 [facility] [id number] Univers 14:20:00 14:47:42 BARBARA swift [facility] 2022-11-07 2022-11-07 Outpatient R DAVID [facility] [id number] Univers 14:20:00 14:47:42 BARBARA murray [facility] 2022-11-07 2022-11-07 Urgent Barbara Hernandez [facility] 1.2.840 .114 [id number] Univers 14:20:00 14:47:42 Care Unknown, Attending HEALTH 350.1.13.10 ity maycol MACIEL 4.2.7.2.686 Laurent as [place]?BLEA [id number] Nj esha [address] MEDICAL OFFICE BUILDING 2022-10-31 2022-10-31 [facility] [id number] Univers 11:00:00 11:00:00 YUSUF vines [facility] 2022-05-23 2022-05-23 Nurse 1, Adc Infusion Nurse [facility] 1.2. 840.114 [id number] Univers 13:00:00 13:15:00 Visit Yusuf Villaseñor 350.1.13.10 ity of [place] [phone] [address] 2022-05-23 2022-05-23 Outpatient R CHARLEEN [facility] [id number] Univers 13:00:00 13:00:00 YUSUF irene [facility] 2022-05-23 2022-05-23 Orders Doctor DEIRDRE 1.2.840.114 [id number] Univers 00:00:00 00:00:00 Only Unassigned, VELVET 350.1.13.[address] [place] [facility] 4.2.7.2.686 Laurent as [phone] [address] 2022-04-30 2022-04-30 Outpatient R CHARLEEN [facility] [id number] Univers 13:00:00 13:00:00 YUSUF irene [facility] 2022-04-11 2022-04-11 Outpatient R CHARLEEN [facility] [id number] Univers 11:00:00 11:00:00 YUSUF vines [facility] 2022-04-05 2022-04-05 Outpatient R CHARLEEN [facility] [id number] Univers 11:30:00 12:40:58 YUSUF irene [facility] 2022-04-05 2022-04-05 Office Charleen [facility] 1.2.908.108 [id number] Univers 11:30:00 12:40:58 Visit Yusuf Harrison [facility] 350.1.13.10 it y of [place] 4.2.7.2.686 Laurent as [place]A [phone] [address] [facility] 2022-03-29 2022-03-29 Orders Doctor DEIRDRE 1.2.840.114 [id number] Univers 00:00:00 00:00:00 Only Unassigned, VELVET 350.1.13.[address] [place] [facility] 4.2.7.2.686 Laurent as [phone] [address] 2022-03-14 2022-03-14 Nurse Therapy, Adc Covid Infusion [facility] 1.2.840.114 [id number] Univers 16:00:00 17:00:00 Visit Ivan Fuentes 350.1.13.10 ity of [facility] [place] [phone] [place] [address] 2022-03-14 2022-03-14 [facility] [id number] Univers 16:00:00 16:00:00 IVAN vines [facility] 2022-03-14 2022-03-14 Orders Doctor DEIRDRE 1.2.840.114 [id number] Univers 00:00:00 00:00:00 Only Unassigned, VELVET 350.1.13.[address] [place] [facility] 4.2.7.2.686 Laurent as [phone] [address] 2022-03-13 2022-03-[address] [facility] [id number] Univers 17:00:00 17:53:42 REENA swift [facility] 2022-03-13 2022-03-13 Urgent Deirdre Bowie [facility] 1..840.114 9 [id number] Univers 17:00:00 17:20:00 Care [facility] 350.1.13.10 ity [facility] 4.2.7.2.686 Laurent as [place] [phone] [address] MEDICAL OFFICE BUILDING 2022-03-13 2022-03-[address] [facility] [id number] Univers 17:00:00 17:00:00 REENA swift [facility] 2022-02-27 2022-02-27 [facility] [id number] Univers 14:16:04 23:59:00 YUSUF vines [facility] 2022-02-27 2022-02-27 [facility] 1.2.840.114 [id number] Univers 14:15:00 23:59:00 Encounter Yusuf MACIEL 350.1.13.10 ity of [place] 4.2.7.2.686 [facility] [phone] [facility] [address] 2021-10-25 2021-10-25 Nurse 1, Adc Infusion Nurse [facility] 1.2. 840.114 [id number] Univers 09:00:00 09:15:00 Visit Yusuf Villaseñor 350.1.13.10 ity of [place] 4.2.7.2.686 [facility] [phone] [facility] [address] 2021-10-25 2021-10-25 Outpatient R CHARLEEN [facility] [id number] Univers 09:00:00 09:00:00 YUSUF vines [facility] 2021-10-25 2021-10-25 Orders Doctor GILMORE 1.2.840.114 [id number] Univers 00:00:00 00:00:00 Only Unassigned, EVLVET 350.1.13.[address] [place] [facility] 4.2.7.2.686 Laurent as [phone] [facility] [address] 2021-10-11 2021-10-11 Outpatient R CHARLEEN [facility] [id number] Univers 09:30:00 09:30:00 YUSUF vines [facility] 2021-09-18 2021-09-21 Inpatient Iván Root [facility] KD805 [id number] [facility] 00:40:00 18:15:00 20 [facility] 2021-09-18 2021-09-18 Outpatient [facility]án Cowan [facility]02 [id number] [facility] 18:46:00 18:46:00 80 [facility] 2021-09-14 2021-09-14 Outpatient Iván Root [facility] 3DAY BP00 [id number] [facility] 00:00:00 23:59:00 20 [facility] 2021-09-14 2021-09-14 Outpatient UNKNOWN HCACL LABO [id number] [facility] 17:46:00 17:46:00 15 [facility] 2021-08-16 2021-08-16 Lab Neida Blank 1. 2.840.1 [id number] Methodi 14:00:00 14:05:00 Iván Cowan [address] 3.430.2.7 Hospit a .3.988502 l .8 2021-08-15 2021-08-15 Orders Edward 1.2.840.1 [id number] Methodi 00:00:00 00:00:00 Only jeff 08147.1.[address] [place] 3.430.2.7 Hospi ta Amezquita .3.765987 l .8 2021-04-12 2021-04-12 Outpatient R CHARLEEN [facility] [id number] Univers 09:30:00 09:30:00 YUSUF vines [facility] 2021-04-12 2021-04-12 Nurse 1, Adc Infusion Nurse [facility] 1.2. 840.114 [id number] Univers 09:09:47 09:24:47 Visit Yusuf Villaseñor 350.1.13.10 [place] 4.2.7.2.686 [place] Surgical [phone] [place] 9[address] Branch 2021-04-06 2021-04-06 Outpatient R CHARLEEN [facility] [id number] [id number] Univers 10:00:00 10:00:00 YUSUF vines [facility] 2021-03-30 2021-03-30 Office Yusuf Villaseñor [facility] 1.2.840. 114 [id number] Univers 11:03:18 12:12:59 Visit Meaghan Varghese 350.1.13.10 [place] 4.2.7.2.686 [place] Profess[place] [phone] [address] 2021-03-30 2021-03-30 Outpatient R HALIMA [facility] [id number] Univers 11:00:00 11:00:00 MEAGHAN vines [facility] 2021-01-02 2021-01-02 Orders Doctor DEIRDRE 1.2.840.114 [id number] Univers 00:00:00 00:00:00 Only Unassigned, VELVET 350.1.13.[address] [place] 4.2.7.2.686 Laurent as [phone] [address] 2020-12-19 2020-12-19 Telephone [facility] 1.2.840.114 [id number] Univers 00:00:00 00:00:00 Yusuf Maciel 350.1.13.10 i ty of [place] [phone] Nj dical [facility] 220 [facility] 2020-12-08 2020-12-08 Orders Doctor DEIRDRE 1.2.840.114 [id number] Univers 00:00:00 00:00:00 Only Unassigned, VELVET 350.1.13.[address] [place] [facility] 4.2.7.2.686 Laurent as [phone] [address] 2020-12-07 2020-12-07 Surgery [facility] 1.2.292.209 [id number] Univers 09:00:00 11:18:00 Riki Maciel 350.1.13.10 i ty of [place] [phone] [facility] 0[address] 2020-12-07 2020-12-07 [facility] 1.2.840.114 [id number] Univers 07:58:00 10:51:00 Encounter Riki Maciel 350.1.13.10 it[place] of [place] [phone] [facility] 071 [address] 2020-12-07 2020-12-07 Orders Doctor GILMORE 1.2.840.114 [id number] Univers 00:00:00 00:00:00 Only Unassigned, VELVET 350.1.13.[address] [place] [facility] 4.2.7.2.686 Laurent as [phone] [address] 2020-12-06 2020-12-06 Laboratory Only, Adc Test [facility] 1.2.840. 114 [id number] Univers 08:50:27 09:05:27 Only Riki Reyez 350.1.13.10 ity of [place] 4.2.7.2.686 [facility] [phone] [facility] [address] 2020-12-06 2020-12-06 Consumer Insights Intern Alfredo, Adc Lab Main [facility] 1.2.8 40.114 [id number] Univers 08:49:30 09:04:30 Visit Riki Reyez 350.1.13.10 ity of [place] 4.2.7.2.686 [facility] Professio [phone] [facility] 353 [facility] 2020-12-06 2020-12-06 [facility] 1.2.840.114 [id number] Univers 08:45:00 08:46:00 Encounter Riki Maciel 350.1.13.10 ity of [place] 4.2.7.2.686 [facility] [phone] [facility] 8[address] 2020-12-06 2020-12-06 Outpatient Jeovany REYEZ [facility] [id number] Univers 08:15:00 08:15:00 RIKI vines [facility] 2020-12-06 2020-12-06 Orders Doctor DEIRDRE 1.2.840.114 [id number] Univers 00:00:00 00:00:00 Only Unassigned, VELVET 350.1.13.[address] [place] [facility] 4.2.7.2.686 Laurent as [phone] [facility] [address] 2020-11-06 2020-11-06 Outpatient Jeovany HOLMAN [facility] [id number] Univers 15:30:00 15:30:00 AIYANA jasmyn [facility] 2020-10-16 2020-10-16 Outpatient Jeovany HOLMAN [facility] [id number] Univers 16:10:00 16:10:00 AIYANA vines [facility] 2020-10-06 2020-10-06 [facility] 1.2.840.114 [id number] Univers 08:54:38 23:59:00 Encounter Riki Maciel 350.1.13.10 ity of [place] 4.2.7.2.686 [facility] [phone] Medi andrez [address] 2020-10-06 2020-10-06 Outpatient R DEREJE [facility] [id number] [id number] Univers 08:45:00 08:45:00 RIKI vines of [facility] 2020-10-06 2020-10-06 Laboratory Only, Adc Test [facility] 1.2.840. 114 [id number] Univers 08:28:29 08:43:29 Only Riki Reyez 350.1.13.10 ity [facility] 4.2.7.2.686 [facility] [phone] [facility] andrez [address] 2020-09-17 2020-09-17 Patient Sixto [facility] 1.2.840.114 [id number] Univers 00:00:00 00:00:00 Outreach Nathanael [facility] 350.1.13.10 i ty [facility] 4.2.7.2.686 [facility] [phone] Nj dical [address] 2020-08-30 2020-08-30 Ambulatory nullFlavo [facility] 35 [id number] Memoria 15:00:00 15:00:00 Pre-Reg r Specialty 04 l Clinic [facility] 2020-08-30 2020-08-30 Ambulatory nullFlavo [facility] 35 [id number] Memoria 15:00:00 15:00:00 Pre-Reg r Specialty 04 l [facility] 2020-08-30 2020-08-30 Outpatient Fitz MG MG [id number] 09:00:00 09:00:00 Mandie L 04 2020-08-23 2020-08-24 Outpatient nullFlavo [facility] 35 [id number] Memoria 15:00:00 05:59:59 r Specialty 05 l [facility] 2020-08-23 2020-08-24 Outpatient nullFlavo [facility] 35 [id number] Memoria 15:00:00 05:59:59 r Specialty 05 l [facility] 2020-08-23 2020-08-23 Outpatient Fitz MG MG [id number] 09:00:00 23:59:59 Mandie L 2020-08-23 2020-08-23 Outpatient MHIE MHIE [id number] Memoria 09:00:00 09:00:00 05 l Kevin 2020-07-26 2020-07-26 Outpatient MHIE MHIE [id number] Memoria 11:00:00 11:00:00 04 l Kevin 2020-06-14 2020-06-15 Outpatient [facility]Flavo [facility] Multi 35 [id number] Memoria 16:00:00 04:59:59 r Specialty 03 l Clinic [place] Laisha miller Sergio 2020-06-14 2020-06-15 Outpatient nullFlavo [facility] 35 [id number] Memoria 16:00:00 04:59:59 r Specialty 03 l Clinic [place] Laisha miller Sergio 2020-06-14 2020-06-14 Outpatient [place], [facility] [id number] 11:00:00 23:59:59 Mandie L 03 2020-06-14 2020-06-14 Outpatient MHIE MHIE [id number] Memoria 11:00:00 11:00:00 03 charles Martines 2020-04-11 2020-04-11 [facility] Yusuf Harrison [facility] 1.2.840 .114 [id number] 09:20:00 23:59:00 Encounter Radiology [place] 350.1.13.10 [place] 4.2.7.2.686 [place] [phone] [facility][note 3] 2020-04-11 2020-04-11 [facility] 1.2.840 .114 [id number] [facility] 09:20:00 23:59:00 Encounter Radiology [place] 350.1.13.10 ity of [place] 4.2.7.2.686 [facility] [phone] [address] 2020-04-11 2020-04-11 [facility] 1.2.840.114 [id number] 09:00:00 09:19:00 Encounter Yusuf Harrison [place] 350.1.13.10 [place] 4.2.7.2.686 [place] [phone] [facility][note 3] 2020-04-11 2020-04-11 [facility] 1.2.840.114 [id number] [facility] 09:00:00 09:19:00 Encounter Yusuf Harrison [place] 350.1.13.10 [place] of [place] [phone] [facility] [address] 2020-04-11 2020-04-11 [facility] [id number] Univers 00:00:00 00:00:00 YUSUF vines [facility] 2020-04-11 2020-04-11 Orders Doctor DEIRDRE 1.2.840.114 [id number] 00:00:00 00:00:00 Only Unassigned, VELVET 350.1.13.10 [facility] 4.2.7.2.686 [id number] 009 2020-04-11 2020-04-11 Orders Doctor DEIRDRE 1.2.840.114 [id number] Univers 00:00:00 00:00:00 Only Unassigned, VELVET 350.1.13.[address] [place] [facility] 4.2.7.2.686 Laurent as [phone] [address] 2020-03-31 2020-03-31 [facility] 1.2.051.219 [id number] 2593 11:28:01 12:47:12 Visit Yusuf Maciel 350.1.13.10 [place] 4.2.7.2.686 Professio [phone] [address] 2020-03-31 2020-03-31 [facility] 1.2.605.217 [id number] 2593 [facility] 11:28:01 12:47:12 Visit Yusuf Maciel 350.1.13.10 i ty [place] [phone] Nj dical nal [address] [place] [address] 2020-03-31 2020-03-31 [facility] [id number] Univers 11:30:00 11:30:00 YUSUF jasmyn [facility] 2019-10-15 2019-10-15 Office [facility] 1.2.784.023 [id number] Univers 11:31:15 12:29:05 Visit Yusuf Maciel 350.1.13.10 i ty of [place] [phone] Nj dical [address] 2019-10-15 2019-10-15 Outpatient R CHARLEEN, [facility] [id number] Univers 11:30:00 12:29:05 YUSUF vines of [facility] 2019-06-02 2019-06-02 Bedded nullFlavo [facility] [id number] Memoria 10:35:00 18:05:00 Outpatient r Williams 04 [facility] 2019-06-02 2019-06-02 Bedded nullFlavo [facility] [id number] Memoria 10:35:00 18:05:00 Outpatient r Williams 04 [facility] 2019-06-02 2019-06-02 Outpatient Jc [facility] [id number] 05:35:00 13:05:00 Pilo Jin 2019-06-02 2019-06-[address] [facility] CAR [address] [facility] 05:35:00 05:35:00 2019-05-19 2019-05-20 Outpt Diag nullFlavo [facility] [id number] Memoria 18:18:00 04:59:00 Services r Outpatient 05 l Imaging - [place] [facility] 2019-05-19 2019-05-20 Outpt Diag nullFlavo [facility] [id number] Memoria 18:18:00 04:59:00 Services r Outpatient 05 l Imaging - [place] [facility] 2019-05-19 2019-05-19 Outpatient [place], 2.16.840. 2.16.840.1. [id number] 13:18:00 23:59:00 Pilo Thayer 1.995081. 385927.3.61 05 3.615.101 5.101 2019-05-05 2019-05-06 Outpatient nullFlavo [facility] 170 [id number] Memoria 19:40:00 04:59:00 r Disease 03 l [facility] 2019-05-05 2019-05-06 Outpatient nullFlavo [facility] 948 [id number] Memoria 19:40:00 04:59:00 r Disease 03 l [facility] 2019-05-05 2019-05-05 Outpatient Glory [facility] [id number] 14:40:00 23:59:00 Atilla 03 2019-05-05 2019-05-05 Outpatient [facility] [id number] [facility] 14:40:00 14:40:00 2019-04-14 2019-04-14 [facility] 1.2.840.114 [id number] Univers 11:00:22 23:59:00 Encounter Yusuf Harrison Raheem 350.1.13.10 it[place] of [place] [phone] [facility] [address] 2019-04-09 2019-04-09 Office [facility] 1.2.017.289 [id number] Univers 08:26:57 10:14:43 Visit Yusuf Sanzton 350.1.13.10 i ty [place] [phone] Nj dical [facility] [address] [facility] 2019-04-09 2019-04-09 Orders Doctor DEIRDRE 1.2.840.114 [id number] Univers 00:00:00 00:00:00 Only Unassigned, VELVET 350.1.13.[address] [place] [facility] 4.2.7.2.686 Laurent as [phone] [facility] [address] 2016-10-28 2016-10-29 Bedded nullFlavo [facility] [id number] Memoria 18:02:00 15:07:00 Outpatient r Williams 02 [facility] 2016-10-28 2016-10-29 Bedded nullFlavo [facility] [id number] Memoria 18:02:00 15:07:00 Outpatient r Kevin 02 [facility] 2016-10-28 2016-10-29 Outpatient Jc [facility] [id number] 12:02:00 09:07:00 Pilo Suarez 2016-04-22 2016-04-27 Inpatient nullFlavo [facility] [id number] Memoria 00:43:00 01:07:00 jeovany Martines 41 [facility] 2016-04-22 2016-04-27 Inpatient nullFlavo [facility] [id number] Memoria 00:43:00 01:07:00 jeovany Martines 41 [facility] 2016-04-21 2016-04-26 Outpatient Jc [facility] [id number] 19:43:00 20:07:00 Pilo Rucker 2015-03-02 2015-03-03 Outpt Diag nullFlavo [facility] [id number] Memoria 17:37:00 04:59:00 Services r Outpatient 00 l Imaging Kevin Williams 2015-03-02 2015-03-03 Outpt Diag nullFlavo [facility] [id number] Memoria 17:37:00 04:59:00 Services r Outpatient 00 l Imaging Kevin Interianoann 2015-03-02 2015-03-02 Outpatient Cayden Fong 2.16.840. 2.16.840.1. [id number] 12:37:00 23:59:00 1.072393. 653029.3.61 00 3.615.0.1 5.0.555 05 4491-07-09 2015-03-02 Outpatient [facility] [id number] Memoria 13:30:00 13:30:00 00 [facility] 2015-03-02 2015-03-02 Outpatient [facility] [id number] Memoria 13:30:00 13:30:00 00 [facility] 2014-03-03 2014-03-04 Outpt Diag nullFlavo [facility] [id number] Memoria 16:41:00 04:59:00 Services r Outpatient 03 l Imaging Kevin Williams 2014-03-03 2014-03-04 Outpt Diag nullFlavo [facility] [id number] Memoria 16:41:00 04:59:00 Services r Outpatient 03 l Imaging Kevin Williams 2014-03-03 2014-03-03 Outpatient Cayden Fong 2.16.840. 2.16.840.1. [id number] 11:41:00 23:59:00 1.828313. 054361.3.61 03 3.615.0.1 5.0.101 01 Results Test Description Test Time Test Comments Results Result Comments Source ABORH Confirmation (Lab Only) 2023-02-22 03:28:00 Test Item Value Reference Range Interpretation Comme nts ABO & RH (test code = 20) O Positive [facility] ([id number])2023-02-22 01:27:45 Test Item Value Reference Range Interpretation Comments NA (test code = 138 mmol/L 135-145 0550521470) K (test code = 4.8 mmol/L 3.5-5.0 9565344508) CL (test code = 98 mmol/L 98-108 6920719604) CO2 TOTAL (test code = 33 mmol/L 23-31 H 6030786933) AGAP (test code = 7 2-16 7754133636) BUN (test code = 38 mg/dL 7-23 H 8304336254) GLUCOSE (test code = 182 mg/dL 70-110 H 3423660384) CREATININE (test code = 1.06 mg/dL 0.50-1.04 H 0713317725) TOTAL BILI (test code = 0.4 mg/dL 0.1-1.0 4852970156) CALCIUM (test code = 9.0 mg/dL 8.6-10.6 6238329586) T PROTEIN (test code = 8.0 g/dL 6.3-8.2 1397472440) ALBUMIN (test code = 4.1 g/dL 3.5-5.0 7363767623) ALK PHOS (test code = 63 U/L 34-122 0300063366) ALTv (test code = 27 U/L 5-35 2-6) AST(SGOT) (test code = 28 U/L 13-40 3077356736) eGFR (test code = 48.9 mL/min/1.73m2 7277436207) THO (test code = THO) Association of [...] tests). Lab Interpretation Abnormal (test code = 71042-7) [facility]en[facility]IV[facility] PART[facility] THRMPLAS [id number] 01:23:27 Test Item Value Reference Range Interpretation Comments APTT Patient (test 28 See_Comment [Automat ed code = 3173-2) message] The system which generated this result transmitted reference range : 23 - 38 Seconds . The reference range was not used to interpr et this result as normal/abnormal . THO (test code = THO) The [facility] patient population mean normal value for aPTT is 30 seconds. Lab Interpretation Normal (test code = 82762-1) [facility]enProthrombin Time / [id number] 01:21:06 Test Item Value Reference Range Interpretation [...] tions. Lab Interpretation (test Normal code = 29436-8) [facility] WITH [id number] 01:15:22 Test Item Value Reference Range Interpretation Comments WBC (test code = 6.26 See_Comment [Automated 2945-2) message] The sy stem which generated this result transmitted reference range : 4.30 - 11.10 10*3/?L. The reference range was not used to interpret this result as normal/abnormal . RBC (test code = 3.73 See_Comment L [Automated 629-8) message] The sy stem which generated this [...] RDW-SD (test code = 45.5 fL 39.0-49.9 79182-8) RDW-CV (test code = 13.2 % 12.0-15.5 788-0) PLT (test code = 232 See_Comment [Automated 777-3) message] The sy stem which generated this result transmitted reference range : 166 - 358 10*3/ ?L. The reference r robbie was not used to interpret this result as normal/abnormal . MPV (test code = 8.9 fL 9.5-12.9 L 07193-8) NRBC/100 WBC (test 0.0 See_Comment [Automat ed code = 0759069305) message] The system which generated this result transmitted reference range : 0.0 - 10.0 /100 WBCs. The refer ence range was not u sed to interpret th is result as normal/abnormal . NRBC x10^3 (test code See_Comment [Auto mated = 7160792292) message] The s ystem which generated this result transmitted reference range : 10*3/?L. The reference range was not used to interpret this result as normal/abnormal . GRAN MAT (NEUT) % 60.4 % (test code = 770-8) IMM GRAN % (test code 0.50 % = 4686427762) LYMPH % (test code = 25.7 % 736-9) MONO % (test code = 9.1 % 5905-5) EOS % (test code = 3.7 % 713-8) BASO % (test code = 0.6 % 706-2) GRAN MAT x10^3(ANC) 3.78 10*3/uL 1.88-7.09 (test code = 6227828171) IMM GRAN x10^3 (test 0.03 10*3/uL 0.00-0.06 code = 9922981263) LYMPH x10^3 (test code 1.61 10*3/uL 1.32-3.29 = 731-0) MONO x10^3 (test code 0.57 10*3/uL 0.33-0.92 = 742-7) EOS x10^3 (test code = 0.23 10*3/uL 0.03-0.39 711-2) BASO x10^3 (test code 0.04 10*3/uL 0.01-0.07 = 704-7) Lab Interpretation Abnormal (test code = 25203-7) [facility] [id number] 01:10:00 Test Item Value Reference Range Interpretation Comments ABO & RH (test code = 20) O Positive IAT (test code = 1185) Negative [facility] [id number] 22:26:47 Test Item Value Reference Range Interpretation Comments TROPONIN I (test code = 0.007 ng/mL <=0.034 [id number]) THO (test code = THO) Reference (Normal) [...] biotin. Lab Interpretation Normal (test code = 96656-9) [facility] [id number] 13:50:29 Test Item Value Reference Range Interpretation Comments IRON (test code = 7679903333) 23 ug/dL 50-160 L TIBC (test code = 1285052714) 223 ug/dL 250-410 L % FE SAT (test code = 2638109930) 10 % 20-50 L Lab Interpretation (test code = Abnormal 75308-7) [facility] [id number] 20:53:04 Test Item Value Reference Range Interpretation Comments TROPONIN I (test code = 0.007 ng/mL <=0.034 6579798710) THO (test code = THO) Reference (Normal) [...] biotin. Lab Interpretation Normal (test code = 75598-9) [facility] [id number] 20:50:05 Test Item Value Reference Range Interpretation Comments NT-proBNP (test code = 5920 pg/mL <=450 H [id number]) THO (test code = THO) Biotin has been reported to cause a negative bias, interpret results relative to patient's use of biotin. Lab Interpretation (test Abnormal code = 50905-1) [facility]OLIC PANEL ([id number])2022-11-07 20:41:24 Test Item Value Reference Range Interpretation Comments NA (test code = 137 mmol/L 135-145 8930951451) K (test code = 4.5 mmol/L 3.5-5.0 2689387823) CL (test code = 103 mmol/L 98-108 7888609623) CO2 TOTAL (test code = 25 mmol/L 23-31 0558356716) AGAP (test code = 9 2-16 8767762316) BUN (test code = 37 mg/dL 7-23 H 6688364235) GLUCOSE (test code = 130 mg/dL 70-110 H 7444133668) CREATININE (test code = 1.13 mg/dL 0.50-1.04 H 6008545633) TOTAL BILI (test code = 0.7 mg/dL 0.1-1.0 [id number]) CALCIUM (test code = 8.3 mg/dL 8.6-10.6 L 2613135030) T PROTEIN (test code = 6.8 g/dL 6.3-8.2 4564682644) ALBUMIN (test code = 3.2 g/dL 3.5-5.0 L 4146239382) ALK PHOS (test code = 53 U/L 34-122 8312137648) ALTv (test code = 27 U/L 5-35 1742-6) AST(SGOT) (test code = 25 U/L 13-40 4114680147) eGFR (test code = 45.5 mL/min/1.73m2 9321230085) THO (test code = THO) Association of [...] tests). Lab Interpretation Abnormal (test code = 66478-4) [facility] WITH [id number] 20:33:19 Test Item Value Reference Range Interpretation [...] (test code = 50.0 fL 39.0-49.9 H 60154-8) RDW-CV (test code = 14.3 % 12.0-15.5 788-0) PLT (test code = 293 See_Comment [Automated 777-3) message] The sy stem which generated this result transmitted reference range : 166 - 358 10*3/ ?L. The reference r robbie was not used to interpret this result as normal/abnormal . MPV (test code = 8.8 fL 9.5-12.9 L 03032-6) NRBC/100 WBC (test 0.0 See_Comment [Automat ed code = 8874951816) message] The system which generated this result transmitted reference range : 0.0 - 10.0 /100 WBCs. The refer ence range was not u sed to interpret th is result as normal/abnormal . NRBC x10^3 (test code See_Comment [Auto mated = 9731063735) message] The s ystem which generated this result transmitted reference range : 10*3/?L. The reference range was not used to interpret this result as normal/abnormal . GRAN MAT (NEUT) % 73.7 % (test code = 770-8) IMM GRAN % (test code 0.60 % = 3532597425) LYMPH % (test code = 10.6 % 736-9) MONO % (test code = 11.0 % 5905-5) EOS % (test code = 3.5 % 713-8) BASO % (test code = 0.6 % 706-2) GRAN MAT x10^3(ANC) 5.34 10*3/uL 1.88-7.09 (test code = 3519993078) IMM GRAN x10^3 (test 0.04 10*3/uL 0.00-0.06 code = 2021391450) LYMPH x10^3 (test code 0.77 10*3/uL 1.32-3.29 L = 731-0) MONO x10^3 (test code 0.80 10*3/uL 0.33-0.92 = 742-7) EOS x10^3 (test code = 0.25 10*3/uL 0.03-0.39 711-2) BASO x10^3 (test code 0.04 10*3/uL 0.01-0.07 = 704-7) Lab Interpretation Abnormal (test code = 04431-6) [facility] Test Item Value Reference Range Interpretation Comments SURGICAL (test code = SR) --------RUN DATE: 09/21/21 [facility] - LAB PAGE 1 RUN TIME: 1113 Specimen Inquiry RUN USER: INTERFACE --------PATIENT: JASON GOYAL LOC: P.5N POD B U #: [id number] AGE/SX: 86/F ROOM: [facility] RE[facility]18/[facility] DR: Iván Cowan MD : 35 BED: 1 DIS: STATUS: ADM IN TLOC: -------- SPEC #: [id number] RECD: 09/18/21 STATUS: ROLAND REQ #: [id number] BALDO: 09/18/21-[address]: Iván Cowan MD ENTERED: 09/18/21 SP TYPE: SURGICAL OTHR DR: Sam Mc MD ORDERED: 21622, 36723/2, ANATOMIC SPEC HISTOLOGY: TISSUE ID [id number] PCS [...] is opened to reveal green-yellow fecal material. Mud Grinder sections are submitted in cassettes A1 and A2 as follows: A1 - margin; A2 -appliance service representative sections of dilated bowel- full thickness. [...] CONTINUED ON NEXT PAGE --------RUN DATE: 09/21/21 [facility] - LAB PAGE 2 RUN TIME: 1113 Specimen Inquiry RUN USER: INTERFACE --------SPEC #: [id number] PATIENT: JASON GOYAL #[id number] (Continued) GROSS DESCRIPTION (Continued) average circumference ranging [...] identified. Two unremarkable colorectal donuts arealso received. Mud Grinder sections are submitted as follows: B1 - proximal margin; B2-distal margin; B3 - appliance service representative section of mesenteric margin and radial margin; B4 to B6- proximal serosal scar with diverticula; B7 - appliance service representative sections at middle area ofserosal fibrosis; B8 - appliance service representative sections at distal mural disruption; B9 and B10 -candidate lymph nodes; B11 - appliance service representative section from non-designated donuts; B12 to B14- additional soft tissue with possible lymph nodes. C. Received in formalin, labeled with patient's name, medical record number and "foreignbody rectum". It consists of a 3.0 x 1.5 x 0.9 cm portion of fibroadipose with embeddedstitches. Mud Grinder sections are submitted in cassette C. ASHLEY/araceli Technical component performed at [facility] [facility], [facility], [address] MICROSCOPIC DESCRIPTION NEGATIVE FOR MALIGNANCY. PERFORMED AND INCORPORATED INTO THE FINAL DIAGNOSIS. CLINICAL INFORMATION Diverticular stricture (per op note) Signed SIGNATURE ON FILE Steve Shell 09/21/21 1113 -------- END OF REPORT BASIC METABOLIC [id number] 08:32:00 Test Item Value Reference Range Interpretation [...] New = CA) Reference Range Sep 2020 [id number] 08:32:00 Test Item Value Reference Range Interpretation Comments MAGNESIUM (test code = 1.3 mg/dL 1.6-2.6 L Pleas e note: New MAG) Reference Range Sep 2020 CBC W/AUTO [id number] 08:16:00 Test Item Value Reference Range Interpretation [...] 0.02 x10 3/uL 0.0-0.20 N RECOLLECTCBC W/MANUAL [id number] 05:55:00 Test Item Value Reference Range Interpretation [...] code NORMAL NORMAL = PLTMORPH) BASIC METABOLIC [id number] 05:04:00 Test Item Value Reference Range Interpretation [...] New = CA) Reference Range Sep 2020 [id number] 05:04:00 Test Item Value Reference Range Interpretation Comments MAGNESIUM (test code = 2.0 mg/dL 1.6-2.6 N Pleas e note: New MAG) Reference Range Sep 2020 CBC W/AUTO [id number] 04:41:00 Test Item Value Reference Range Interpretation [...] 0.01 x10 3/uL 0.0-0.20 N BASIC METABOLIC [id number] 04:31:00 Test Item Value Reference Range Interpretation [...] New = CA) Reference Range Sep 2020 [id number] 04:31:00 Test Item Value Reference Range Interpretation Comments MAGNESIUM (test code = 1.5 mg/dL 1.6-2.6 L Pleas e note: New MAG) Reference Range Sep 2020 Novel Coronavirus 2019 [id number] 14:55:00 Test Item Value Reference Range Interpretation [...] det ection of nucleic acids f rom eafKHDB-TlS-0 v irus and diagnosis of SA RS-CoV-2 virusinfection. It is an Emergency Use Authorization ( EUA) testauthorized by the U.S. FDA. First test? UnknownEmployed in Healthcare? UnknownSymptomatic as defined by CDC? UnknownHospitalizeddue to COVID? UnknownIn ICU due to COVID? UnknownResident in a congregate care setting? Unknown? NoAge at collection: Jeremy Coronavirus 2019 Fjwewvq9109-19-68 14:55:00 Test Item Value Reference Range Interpretation [...] det ection of nucleic acids f rom nitTBLR-QsM-8 v irus and diagnosis of SA RS-CoV-2 virusinfection. It is an Emergency Use Authorization ( EUA) testauthorized by the U.S. FDA. First test? UnknownEmployed in Healthcare? UnknownSymptomatic as defined by CDC? UnknownHospitalizeddue to COVID? UnknownIn ICU due to COVID? UnknownResident in a congregate care setting? Unknown? NoAge at collection: YBASIC METABOLIC [id number] 11:15:00 Test Item Value Reference Range Interpretation [...] CA) Reference Range Sep 2020 CBC W/AUTO [id number] 10:57:00 Test Item Value Reference Range Interpretation [...] BA#) 0.05 x10 3/uL 0.0-0.20 N Gastrointestinal [id number] 02:35:09 Test Item Value Reference Interpretation Comments [...] Rotavirus PCR (test Not Detected code = 7501598) Salmonella PCR (test Not Detected code = [...] PCR Not Detected (test code = 7124) [id number] 02:35:09 Test Item Value Reference Interpretation Comments [...] Rotavirus PCR (test Not Detected code = 5005004) Salmonella PCR (test Not Detected code = [...] PCR Not Detected (test code = 7124) [facility] LAB [id number] 15:25:00 Test Item Value Reference Range Interpretation Comments Result 2 (Urine Culture) See Result Comment (test code = Result 2 (Urine Culture)) [facility] [id number] 15:25:00 Test Item Value Reference Range Interpretation Comments Result 2 (Urine Culture) See Result Comment (test code = Result 2 (Urine Culture)) [facility] [id number] 15:25:00 Test Item Value Reference Range Interpretation Comments Result 2 (Urine Culture) See Result Comment (test code = Result 2 (Urine Culture)) [facility] LAB [id number] 15:25:00 Test Item Value Reference Range Interpretation Comments Result 2 (Urine Culture) See Result Comment (test code = Result 2 (Urine Culture)) [facility] [id number] 15:25:00 Test Item Value Reference Range Interpretation Comments Result 2 (Urine Culture) See Result Comment (test code = Result 2 (Urine Culture)) [facility] [id number] 15:25:00 Test Item Value Reference Range Interpretation Comments Result 2 (Urine Culture) See Result Comment (test code = Result 2 (Urine Culture)) [facility] [id number] 15:25:00 Test Item Value Reference Range Interpretation Comments Result 2 (Urine Culture) See Result Comment (test code = Result 2 (Urine Culture)) [facility] [id number] 15:25:00 Test Item Value Reference Range Interpretation Comments Result 2 (Urine Culture) See Result Comment (test code = Result 2 (Urine Culture)) [facility] [id number] 15:25:00 Test Item Value Reference Range Interpretation Comments Result 2 (Urine Culture) See Result Comment (test code = Result 2 (Urine Culture)) [facility] [id number] 15:25:00 Test Item Value Reference Range Interpretation Comments Result 2 (Urine Culture) See Result Comment (test code = Result 2 (Urine Culture)) [facility] LAB [id number] 15:25:00 Test Item Value Reference Range Interpretation Comments Result 2 (Urine Culture) See Result Comment (test code = Result 2 (Urine Culture)) [facility] LAB [id number] 15:25:00 Test Item Value Reference Range Interpretation Comments Result 2 (Urine Culture) See Result Comment (test code = Result 2 (Urine Culture)) [facility] LAB [id number] 15:25:00 Test Item Value Reference Range Interpretation Comments Result 2 (Urine Culture) See Result Comment (test code = Result 2 (Urine Culture)) [facility]cdg[facility]GMPKOITNKY5914-69-[facility] 14:36:00 Test Item Value Reference Range Interpretation Comments POC Activated Clotting Time (test code 186 s = POC Activated Clotting Time) [facility] HospitalLdgdmtcTUXKPUZRKW5740-64-61 14:36:00 Test Item Value Reference Range Interpretation Comments POC Activated Clotting Time (test code 186 s = POC Activated Clotting Time) [facility] HospitalKpdgoqbYVLFTNRJSA2293-01-45 14:36:00 Test Item Value Reference Range Interpretation Comments POC Activated Clotting Time (test code 186 s = POC Activated Clotting Time) [facility] HospitalYwlsadbXPCIACKHAJ2404-74-07 14:36:00 Test Item Value Reference Range Interpretation Comments POC Activated Clotting Time (test code 186 s = POC Activated Clotting Time) [facility] HospitalCrrhfvzGBXLKSONJM5289-29-11 14:36:00 Test Item Value Reference Range Interpretation Comments POC Activated Clotting Time (test code 186 s = POC Activated Clotting Time) [facility] HospitalZnpuvmcIBYCZZJAHU5056-12-56 14:36:00 Test Item Value Reference Range Interpretation Comments POC Activated Clotting Time (test code 186 s = POC Activated Clotting Time) [facility] Hos[id number] 14:36:00 Test Item Value Reference Range Interpretation Comments POC Activated Clotting Time (test code 186 s = POC Activated Clotting Time) [facility] HospitalTnnndqkOTXRKBYZVB7954-91-76 14:36:00 Test Item Value Reference Range Interpretation Comments POC Activated Clotting Time (test code 186 s = POC Activated Clotting Time) [facility] H[id number] 14:36:00 Test Item Value Reference Range Interpretation Comments POC Activated Clotting Time (test code 186 s = POC Activated Clotting Time) [facility] HospitalChscmpeJHYIZODJPO4527-37-31 14:36:00 Test Item Value Reference Range Interpretation Comments POC Activated Clotting Time (test code 186 s = POC Activated Clotting Time) [facility] HospitalSvxljwdUWNARJPQEW5911-75-77 14:36:00 Test Item Value Reference Range Interpretation Comments POC Activated Clotting Time (test code 186 s = POC Activated Clotting Time) [facility] HospitalRoivgliNKTCEVNLHT4849-54-00 14:36:00 Test Item Value Reference Range Interpretation Comments POC Activated Clotting Time (test code 186 s = POC Activated Clotting Time) [facility] HospitalOlqigrzQWCQZLRVLG4116-60-85 14:36:00 Test Item Value Reference Range Interpretation Comments POC Activated Clotting Time (test code 186 s = POC Activated Clotting Time) [facility] HospitalHducdiaQZRTJFISII7732-03-35 10:47:00 Test Item Value Reference Range Interpretation Comments Basophils (test code = 0.6 See_Comment [Aut omated message] The Basophils) system which ge nerated this result tra nsmitted reference range : <=1.0. The reference r robbie was not used to int erpret this result as normal/abnormal . [facility] HospitalCwznqggAZXITCLZJW1958-40-03 10:47:00 Test Item Value Reference Range Interpretation Comments Neutrophils # (test code = Neutrophils 3.7 1.5-8.1 #) [facility] HospitalXpoecrjHBUVDBOTPU3049-85-18 10:47:00 Test Item Value Reference Range Interpretation Comments Lymphocytes # (test code = Lymphocytes 1.6 1.0-5.5 #) [facility] HospitalBcagstmQKOWGGYYLV4933-81-72 10:47:00 Test Item Value Reference Range Interpretation Comments Monocytes # (test code 0.5 See_Comment [Aut omated message] The = Monocytes #) system which generated this result tra nsmitted reference range : <=0.8. The reference r robbie was not used to int erpret this result as normal/abnormal . [facility] HospitalKpwytrdDGNOQULSZY2897-46-43 10:47:00 Test Item Value Reference Range Interpretation Comments Eosinophils # (test code 0.3 See_Comment [A utomated message] The = Eosinophils #) system whic h generated this result tra nsmitted reference range : <=0.5. The reference r robbie was not used to int erpret this result as normal/abnormal . [facility] [id number] 10:47:00 Test Item Value Reference Range Interpretation Comments ABO/Rh (test code = ABO/Rh) O POS [facility] [id number] 10:47:00 Test Item Value Reference Range Interpretation Comments Antibody Scrn (test Positive (06/02/19 5:47 code = Antibody Scrn) AM) [facility] [id number] 10:47:00 Test Item Value Reference Range Interpretation Comments AB Int (test code = Non-specific IgG AB Int) Antibody [facility] [id number] 10:47:00 Test Item Value Reference Range Interpretation Comments PAUL Gel Int (test Positive (06/02/19 5:47 code = PAUL Gel Int) AM) [facility] [id number] 10:47:00 Test Item Value Reference Range Interpretation Comments C3 Int (test code = Negative (06/02/19 5:47 C3 Int) AM) [facility] [id number] 10:47:00 Test Item Value Reference Range Interpretation Comments Eluate Int (test code = Eluate Int) See Note [facility] UTJSX6875-10-13 10:47:00 Test Item Value Reference Range Interpretation Comments Glucose Lvl (test code = Glucose Lvl) 102 70-99 [facility] MDALQ0799-56-26 10:47:00 Test Item Value Reference Range Interpretation Comments BUN (test code = BUN) 20 7-22 [facility] TZGEQ5756-04-60 10:47:00 Test Item Value Reference Range Interpretation Comments Creatinine Lvl (test code = Creatinine 1.00 0.50-1.40 Lvl) [facility] UOPXS0423-05-76 10:47:00 Test Item Value Reference Range Interpretation Comments Sodium Lvl (test code = Sodium Lvl) 143 135-145 [facility] ORMYR9492-58-01 10:47:00 Test Item Value Reference Range Interpretation Comments Potassium Lvl (test code = Potassium 3.7 3.5-5.1 Lvl) [facility] [id number] 10:47:00 Test Item Value Reference Range Interpretation Comments Chloride Lvl (test code = Chloride Lvl) 105 95-109 [facility] [id number] 10:47:00 Test Item Value Reference Range Interpretation Comments CO2 (test code = CO2) 31 24-32 [facility]2019-10-09 10:47:00 Test Item Value Reference Range Interpretation Comments Calcium Lvl (test code = Calcium Lvl) 10.0 8.5-10.5 [facility]2019-10-09 10:47:00 Test Item Value Reference Range Interpretation Comments eGFR (test code = eGFR) 52 [facility]2019-10-09 10:47:00 Test Item Value Reference Range Interpretation Comments AGAP (test code = AGAP) 10.7 10.0-20.0 [facility]2019-10-09 10:47:00 Test Item Value Reference Range Interpretation Comments Magnesium Lvl (test code = Magnesium 2.1 1.8-2.4 Lvl) [facility]2019-10-09 10:47:00 Test Item Value Reference Range Interpretation Comments Phosphorus (test code = Phosphorus) 3.4 2.5-4.5 [facility]FpckolkZQIAYSBQOT0351-03-47 10:47:00 Test Item Value Reference Range Interpretation Comments WBC (test code = WBC) 6.2 3.7-10.4 [facility] HospitalNbxhbmlDCMZAPCDUH4094-45-26 10:47:00 Test Item Value Reference Range Interpretation Comments RBC (test code = RBC) 4.17 4.20-5.40 [facility] HospitalTickiqsFSSXAQKQJI5033-56-18 10:47:00 Test Item Value Reference Range Interpretation Comments Hgb (test code = Hgb) 12.5 12.0-16.0 [facility] HospitalKfgagxvTCCXEGECPG0922-69-97 10:47:00 Test Item Value Reference Range Interpretation Comments Hct (test code = Hct) 37.7 36.0-48.0 [facility] HospitalOodycneBOLFQVSDYH6391-74-36 10:47:00 Test Item Value Reference Range Interpretation Comments MCV (test code = MCV) 90.4 80.0-98.0 [facility] HospitalXisyxzrGUJHIJAOWT5898-04-69 10:47:00 Test Item Value Reference Range Interpretation Comments MCH (test code = MCH) 30.0 pg 27.0-31.0 [facility] HospitalNoteusxCBTCDOVMUS8316-68-11 10:47:00 Test Item Value Reference Range Interpretation Comments MCHC (test code = MCHC) 33.2 32.0-36.0 [facility] HospitalObcofgtOCOGOSNALM7412-88-36 10:47:00 Test Item Value Reference Range Interpretation Comments RDW (test code = RDW) 13.5 11.5-14.5 [facility] HospitalVnfjooySIVNWHRDFR7004-89-99 10:47:00 Test Item Value Reference Range Interpretation Comments Platelet (test code = Platelet) 288 133-450 [facility] HospitalMojxphxCPXTDFWFSL5212-41-57 10:47:00 Test Item Value Reference Range Interpretation Comments MPV (test code = MPV) 7.1 7.4-10.4 [facility] HospitalVsdsjdnVEINVCBGUP1820-30-75 10:47:00 Test Item Value Reference Range Interpretation Comments PT (test code = PT) 13.0 s 12.0-14.7 [facility] HospitalZfqymyuFGGHMWOADI2566-62-01 10:47:00 Test Item Value Reference Range Interpretation Comments PTT (test code = PTT) 29.2 s 22.9-35.8 [facility] HospitalVzkrqqjLFOZDIRYER1859-17-63 10:47:00 Test Item Value Reference Range Interpretation Comments INR (test code = INR) 1.00 1 0.85-1.17 [facility] HospitalLblzfwnXIRVXDIXIM8899-65-86 10:47:00 Test Item Value Reference Range Interpretation Comments Segs (test code = Segs) 60.5 45.0-75.0 [facility] HospitalQfjcyboGCGVGSSILY6561-07-92 10:47:00 Test Item Value Reference Range Interpretation Comments Lymphocytes (test code = Lymphocytes) 26.2 20.0-40.0 [facility] HospitalLxtaubcZWOENWFIUV8418-59-85 10:47:00 Test Item Value Reference Range Interpretation Comments Monocytes (test code = Monocytes) 8.7 2.0-12.0 [facility] HospitalRyozsojKGEGWHSFQN9212-96-39 10:47:00 Test Item Value Reference Range Interpretation Comments Eosinophils (test code = 4.0 See_Comment [A utomated message] The Eosinophils) system which ge nerated this result tra nsmitted reference range : <=4.0. The reference r robbie was not used to int erpret this result as normal/abnormal . [facility] HospitalDjunaspESZGZSJSGO1423-43-19 10:47:00 Test Item Value Reference Range Interpretation Comments Basophils (test code = 0.6 See_Comment [Aut omated message] The Basophils) system which ge nerated this result tra nsmitted reference range : <=1.0. The reference r rbobie was not used to int erpret this result as normal/abnormal . [facility] HospitalQxxhesqRKCNCDRLIK5993-53-44 10:47:00 Test Item Value Reference Range Interpretation Comments Neutrophils # (test code = Neutrophils 3.7 1.5-8.1 #) [facility] HospitalIotauozGWHTOYQPNN3219-21-38 10:47:00 Test Item Value Reference Range Interpretation Comments Lymphocytes # (test code = Lymphocytes 1.6 1.0-5.5 #) [facility] HospitalLvoquutGZSBZTNUQR6357-16-50 10:47:00 Test Item Value Reference Range Interpretation Comments Monocytes # (test code 0.5 See_Comment [Aut omated message] The = Monocytes #) system which generated this result tra nsmitted reference range : <=0.8. The reference r robbie was not used to int erpret this result as normal/abnormal . [facility] HospitalNhdpqfoEKNRFBYFOG2713-87-63 10:47:00 Test Item Value Reference Range Interpretation Comments Eosinophils # (test code 0.3 See_Comment [A utomated message] The = Eosinophils #) system whic h generated this result tra nsmitted reference range : <=0.5. The reference r robbie was not used to int erpret this result as normal/abnormal . [facility] CFWGZBS1269-01-30 10:47:00 Test Item Value Reference Range Interpretation Comments ABO/Rh (test code = ABO/Rh) O POS [facility] TDGHTXW1890-99-76 10:47:00 Test Item Value Reference Range Interpretation Comments Antibody Scrn (test Positive (06/02/19 5:47 code = Antibody Scrn) AM) [facility] HJFKVYX6270-01-11 10:47:00 Test Item Value Reference Range Interpretation Comments AB Int (test code = Non-specific IgG AB Int) Antibody [facility] UGJSMCZ8886-39-59 10:47:00 Test Item Value Reference Range Interpretation Comments PAUL Gel Int (test Positive (06/02/19 5:47 code = PAUL Gel Int) AM) [facility] RLMCGBA4222-20-77 10:47:00 Test Item Value Reference Range Interpretation Comments C3 Int (test code = Negative (06/02/19 5:47 C3 Int) AM) [facility] SEAIOKP3014-07-97 10:47:00 Test Item Value Reference Range Interpretation Comments Eluate Int (test code = Eluate Int) See Note [facility]2019-10-09 10:47:00 Test Item Value Reference Range Interpretation Comments Glucose Lvl (test code = Glucose Lvl) 102 70-99 [facility]2019-10-09 10:47:00 Test Item Value Reference Range Interpretation Comments BUN (test code = BUN) 20 7-22 [facility]2019-10-09 10:47:00 Test Item Value Reference Range Interpretation Comments Creatinine Lvl (test code = Creatinine 1.00 0.50-1.40 Lvl) [facility]2019-10-09 10:47:00 Test Item Value Reference Range Interpretation Comments Sodium Lvl (test code = Sodium Lvl) 143 135-145 [facility]2019-10-09 10:47:00 Test Item Value Reference Range Interpretation Comments Potassium Lvl (test code = Potassium 3.7 3.5-5.1 Lvl) [facility]2019-10-09 10:47:00 Test Item Value Reference Range Interpretation Comments Chloride Lvl (test code = Chloride Lvl) 105 95-109 [facility]2019-10-09 10:47:00 Test Item Value Reference Range Interpretation Comments CO2 (test code = CO2) 31 24-32 [facility]2019-10-09 10:47:00 Test Item Value Reference Range Interpretation Comments Calcium Lvl (test code = Calcium Lvl) 10.0 8.5-10.5 [facility]2019-10-09 10:47:00 Test Item Value Reference Range Interpretation Comments eGFR (test code = eGFR) [facility]2019-10-09 10:47:00 Test Item Value Reference Range Interpretation Comments AGAP (test code = AGAP) 10.7 10.0-20.0 [facility]2019-10-09 10:47:00 Test Item Value Reference Range Interpretation Comments Magnesium Lvl (test code = Magnesium 2.1 1.8-2.4 Lvl) [facility]2019-[facility]-09 10:47:00 Test Item Value Reference Range Interpretation Comments Phosphorus (test code = Phosphorus) 3.4 2.5-4.5 [facility]ckxnwKMTNAAXFNA6444-64-96 10:47:00 Test Item Value Reference Range Interpretation Comments WBC (test code = WBC) 6.2 3.7-10.4 [facility]AhkrbwkCRHUNNSTRQ4950-35-71 10:47:00 Test Item Value Reference Range Interpretation Comments RBC (test code = RBC) 4.17 4.20-5.40 [facility] HospitalZivwpwoGTZTWYSZTN9169-11-80 10:47:00 Test Item Value Reference Range Interpretation Comments Hgb (test code = Hgb) 12.5 12.0-16.0 [facility] HospitalIidmdrfTWGBUEQMUI6015-57-86 10:47:00 Test Item Value Reference Range Interpretation Comments Hct (test code = Hct) 37.7 36.0-48.0 [facility] HospitalYmrxfplELERTZARQV2173-28-87 10:47:00 Test Item Value Reference Range Interpretation Comments MCV (test code = MCV) 90.4 80.0-98.0 [facility] HospitalKnichqnFLVULDQIAR4787-37-58 10:47:00 Test Item Value Reference Range Interpretation Comments MCH (test code = MCH) 30.0 pg 27.0-31.0 [facility] HospitalWhvorylVUDHIIUVUU2479-74-43 10:47:00 Test Item Value Reference Range Interpretation Comments MCHC (test code = MCHC) 33.2 32.0-36.0 [facility] HospitalIbafbqcMUCANDYEHL7308-38-44 10:47:00 Test Item Value Reference Range Interpretation Comments RDW (test code = RDW) 13.5 11.5-14.5 [facility] HospitalPaxprwpXDOQXULHEG1014-66-63 10:47:00 Test Item Value Reference Range Interpretation Comments Platelet (test code = Platelet) 288 133-450 [facility] HospitalLhvnqrgYUUIMSXZRV8475-03-79 10:47:00 Test Item Value Reference Range Interpretation Comments MPV (test code = MPV) 7.1 7.4-10.4 [facility] HospitalYrpckhgTWWKEZWKRY8811-08-46 10:47:00 Test Item Value Reference Range Interpretation Comments PT (test code = PT) 13.0 s 12.0-14.7 [facility] HospitalPgvbaufKHRFQXRYRO0082-16-12 10:47:00 Test Item Value Reference Range Interpretation Comments PTT (test code = PTT) 29.2 s 22.9-35.8 [facility] HospitalUnbyfwwUDIUEJRZFU4723-70-65 10:47:00 Test Item Value Reference Range Interpretation Comments INR (test code = INR) 1.00 1 0.85-1.17 [facility] HospitalYcqhwfxBHPJFGOZGM8779-89-62 10:47:00 Test Item Value Reference Range Interpretation Comments Segs (test code = Segs) 60.5 45.0-75.0 [facility] HospitalIlevlthJZXAKLWDHT5531-14-25 10:47:00 Test Item Value Reference Range Interpretation Comments Lymphocytes (test code = Lymphocytes) 26.2 20.0-40.0 [facility] HospitalNgkecqaZYOJLQZGIO1436-31-40 10:47:00 Test Item Value Reference Range Interpretation Comments Monocytes (test code = Monocytes) 8.7 2.0-12.0 [facility] HospitalTwcaenmETPUJSYRGK5940-57-37 10:47:00 Test Item Value Reference Range Interpretation Comments Eosinophils (test code = 4.0 See_Comment [A utomated message] The Eosinophils) system which ge nerated this result tra nsmitted reference range : <=4.0. The reference r robbie was not used to int erpret this result as normal/abnormal . [facility] HospitalMctxrtfVIUXBLRUXP8195-54-96 10:47:00 Test Item Value Reference Range Interpretation Comments Basophils (test code = 0.6 See_Comment [Aut omated message] The Basophils) system which ge nerated this result tra nsmitted reference range : <=1.0. The reference r robbie was not used to int erpret this result as normal/abnormal . [facility] HospitalPfttkwxUEVKQZDSIG6029-05-99 10:47:00 Test Item Value Reference Range Interpretation Comments Neutrophils # (test code = Neutrophils 3.7 1.5-8.1 #) [facility] HospitalTjynjwjNANIDCJTZX3091-38-83 10:47:00 Test Item Value Reference Range Interpretation Comments Lymphocytes # (test code = Lymphocytes 1.6 1.0-5.5 #) [facility] HospitalRpyanheQWVUOFKGBD2553-22-80 10:47:00 Test Item Value Reference Range Interpretation Comments Monocytes # (test code 0.5 See_Comment [Aut omated message] The = Monocytes #) system which generated this result tra nsmitted reference range : <=0.8. The reference r robbie was not used to int erpret this result as normal/abnormal . [facility] HospitalOisvotfIGWTYNXBHO3078-49-99 10:47:00 Test Item Value Reference Range Interpretation Comments Eosinophils # (test code 0.3 See_Comment [A utomated message] The = Eosinophils #) system whic h generated this result tra nsmitted reference range : <=0.5. The reference r robbie was not used to int erpret this result as normal/abnormal . [facility] QRZCSWH9875-28-91 10:47:00 Test Item Value Reference Range Interpretation Comments ABO/Rh (test code = ABO/Rh) O POS [facility] KVRBPWF7434-15-77 10:47:00 Test Item Value Reference Range Interpretation Comments Antibody Scrn (test Positive (06/02/19 5:47 code = Antibody Scrn) AM) [facility] TTOEPPC5288-92-01 10:47:00 Test Item Value Reference Range Interpretation Comments AB Int (test code = Non-specific IgG AB Int) Antibody [facility] [id number] 10:47:00 Test Item Value Reference Range Interpretation Comments PAUL Gel Int (test Positive (06/02/19 5:47 code = PAUL Gel Int) AM) [facility] RKHMOXA6470-96-62 10:47:00 Test Item Value Reference Range Interpretation Comments C3 Int (test code = Negative (06/02/19 5:47 C3 Int) AM) [facility] [employer] PFYACSJ7760-79-36 10:47:00 Test Item Value Reference Range Interpretation Comments Eluate Int (test code = Eluate Int) See Note [facility] [employer] GEKQF6587-09-57 10:47:00 Test Item Value Reference Range Interpretation Comments Glucose Lvl (test code = Glucose Lvl) 102 70-99 [facility] [employer] VKJSA4943-22-17 10:47:00 Test Item Value Reference Range Interpretation Comments BUN (test code = BUN) 20 7-22 [facility] [employer] [id number] 10:47:00 Test Item Value Reference Range Interpretation Comments Creatinine Lvl (test code = Creatinine 1.00 0.50-1.40 Lvl) [facility] [employer] [id number] 10:47:00 Test Item Value Reference Range Interpretation Comments Sodium Lvl (test code = Sodium Lvl) 143 135-145 [facility] [employer] HFBAQ8315-97-49 10:47:00 Test Item Value Reference Range Interpretation Comments Potassium Lvl (test code = Potassium 3.7 3.5-5.1 Lvl) [facility]2019-[facility] 10:47:00 Test Item Value Reference Range Interpretation Comments Chloride Lvl (test code = Chloride Lvl) 105 95-109 [facility]2019-10-09 10:47:00 Test Item Value Reference Range Interpretation Comments CO2 (test code = CO2) 31 24-32 [facility]2019-10-09 10:47:00 Test Item Value Reference Range Interpretation Comments Calcium Lvl (test code = Calcium Lvl) 10.0 8.5-10.5 [facility]2019-10-09 10:47:00 Test Item Value Reference Range Interpretation Comments eGFR (test code = eGFR) [facility]2019-10-09 10:47:00 Test Item Value Reference Range Interpretation Comments AGAP (test code = AGAP) 10.7 10.0-20.0 [facility]2019-10-09 10:47:00 Test Item Value Reference Range Interpretation Comments Magnesium Lvl (test code = Magnesium 2.1 1.8-2.4 Lvl) [facility]2019-10-09 10:47:00 Test Item Value Reference Range Interpretation Comments Phosphorus (test code = Phosphorus) 3.4 2.5-4.5 [facility] HospitalPkhmzmaTEJXFYZLOI4977-47-22 10:47:00 Test Item Value Reference Range Interpretation Comments WBC (test code = WBC) 6.2 3.7-10.4 [facility] HospitalIkpoqiyAABNXIEIBC3765-01-12 10:47:00 Test Item Value Reference Range Interpretation Comments RBC (test code = RBC) 4.17 4.20-5.40 [facility] HospitalEkjqamxMQJVVVLYXJ5083-08-47 10:47:00 Test Item Value Reference Range Interpretation Comments Hgb (test code = Hgb) 12.5 12.0-16.0 [facility] HospitalJstzhmpKVQHKORQUX5194-46-03 10:47:00 Test Item Value Reference Range Interpretation Comments Hct (test code = Hct) 37.7 36.0-48.0 [facility] HospitalNxldndoJZSGRQTHHV1529-02-45 10:47:00 Test Item Value Reference Range Interpretation Comments MCV (test code = MCV) 90.4 80.0-98.0 [facility] HospitalRhomlfmSIXTILHUWS5020-55-90 10:47:00 Test Item Value Reference Range Interpretation Comments MCH (test code = MCH) 30.0 pg 27.0-31.0 [facility] HospitalFptaapyHCAIFCTRJM9678-70-66 10:47:00 Test Item Value Reference Range Interpretation Comments MCHC (test code = MCHC) 33.2 32.0-36.0 [facility] HospitalMbtlsblDRRYJQIPDH3974-63-41 10:47:00 Test Item Value Reference Range Interpretation Comments RDW (test code = RDW) 13.5 11.5-14.5 [facility] HospitalQfzfxowNGXXHZEPBU1903-42-99 10:47:00 Test Item Value Reference Range Interpretation Comments Platelet (test code = Platelet) 288 133-450 [facility] HospitalCrvdaxxPHFWUMESSZ7645-85-08 10:47:00 Test Item Value Reference Range Interpretation Comments MPV (test code = MPV) 7.1 7.4-10.4 [facility] HospitalBsrhxuaVISNWYEKHK1212-01-59 10:47:00 Test Item Value Reference Range Interpretation Comments PT (test code = PT) 13.0 s 12.0-14.7 [facility] HospitalZtdhihsMSHVYKCNWW0765-60-86 10:47:00 Test Item Value Reference Range Interpretation Comments PTT (test code = PTT) 29.2 s 22.9-35.8 [facility] HospitalNaucjelHOYEWVCNKL8171-04-92 10:47:00 Test Item Value Reference Range Interpretation Comments INR (test code = INR) 1.00 1 0.85-1.17 [facility] HospitalSliblqdZDZNEBQIHK3305-28-15 10:47:00 Test Item Value Reference Range Interpretation Comments Segs (test code = Segs) 60.5 45.0-75.0 [facility] HospitalCwsnezzGVLBMEWGWA3351-77-98 10:47:00 Test Item Value Reference Range Interpretation Comments Lymphocytes (test code = Lymphocytes) 26.2 20.0-40.0 [facility] HospitalWpppspbQANDXEEATD1700-15-15 10:47:00 Test Item Value Reference Range Interpretation Comments Monocytes (test code = Monocytes) 8.7 2.0-12.0 [facility] HospitalJzpcvonKWJVJNPTMU6634-12-83 10:47:00 Test Item Value Reference Range Interpretation Comments Eosinophils (test code = 4.0 See_Comment [A utomated message] The Eosinophils) system which ge nerated this result tra nsmitted reference range : <=4.0. The reference r robbie was not used to int erpret this result as normal/abnormal . [facility] HospitalWgexobxYGIQBZSXRM7595-23-58 10:47:00 Test Item Value Reference Range Interpretation Comments Basophils (test code = 0.6 See_Comment [Aut omated message] The Basophils) system which ge nerated this result tra nsmitted reference range : <=1.0. The reference r robbie was not used to int erpret this result as normal/abnormal . [facility] HospitalGdaygezEPTINFBRGF7556-86-03 10:47:00 Test Item Value Reference Range Interpretation Comments Neutrophils # (test code = Neutrophils 3.7 1.5-8.1 #) [facility] HospitalAfrgxctRHJFEXTZTD6036-85-19 10:47:00 Test Item Value Reference Range Interpretation Comments Lymphocytes # (test code = Lymphocytes 1.6 1.0-5.5 #) [facility] HospitalFvkjuciRDFNEDREVL5887-53-29 10:47:00 Test Item Value Reference Range Interpretation Comments Monocytes # (test code 0.5 See_Comment [Aut omated message] The = Monocytes #) system which generated this result tra nsmitted reference range : <=0.8. The reference r robbie was not used to int erpret this result as normal/abnormal . [facility] HospitalAubbogpZWPGUEIMBL2312-39-75 10:47:00 Test Item Value Reference Range Interpretation Comments Eosinophils # (test code 0.3 See_Comment [A utomated message] The = Eosinophils #) system whic h generated this result tra nsmitted reference range : <=0.5. The reference r robbie was not used to int erpret this result as normal/abnormal . [facility] HGFZUIE3623-26-96 10:47:00 Test Item Value Reference Range Interpretation Comments ABO/Rh (test code = ABO/Rh) O POS [facility] [id number] 10:47:00 Test Item Value Reference Range Interpretation Comments Antibody Scrn (test Positive (06/02/19 5:47 code = Antibody Scrn) AM) [facility] [id number] 10:47:00 Test Item Value Reference Range Interpretation Comments AB Int (test code = Non-specific IgG AB Int) Antibody [facility] GBKFKCH7646-33-30 10:47:00 Test Item Value Reference Range Interpretation Comments PAUL Gel Int (test Positive (06/02/19 5:47 code = PAUL Gel Int) AM) [facility] [id number] 10:47:00 Test Item Value Reference Range Interpretation Comments C3 Int (test code = Negative (06/02/19 5:47 C3 Int) AM) [facility] ZSYQMUZ1852-09-30 10:47:00 Test Item Value Reference Range Interpretation Comments Eluate Int (test code = Eluate Int) See Note [facility]2019-10-09 10:47:00 Test Item Value Reference Range Interpretation Comments Glucose Lvl (test code = Glucose Lvl) 102 70-99 [facility]2019-10-09 10:47:00 Test Item Value Reference Range Interpretation Comments BUN (test code = BUN) 20 7-22 [facility]2019-10-09 10:47:00 Test Item Value Reference Range Interpretation Comments Creatinine Lvl (test code = Creatinine 1.00 0.50-1.40 Lvl) [facility]2019-10-09 10:47:00 Test Item Value Reference Range Interpretation Comments Sodium Lvl (test code = Sodium Lvl) 143 135-145 [facility] [id number] 10:47:00 Test Item Value Reference Range Interpretation Comments Potassium Lvl (test code = Potassium 3.7 3.5-5.1 Lvl) [facility]2019-10-09 10:47:00 Test Item Value Reference Range Interpretation Comments Chloride Lvl (test code = Chloride Lvl) 105 95-109 [facility]2019-10-09 10:47:00 Test Item Value Reference Range Interpretation Comments CO2 (test code = CO2) 31 24-32 [facility]2019-10-09 10:47:00 Test Item Value Reference Range Interpretation Comments Calcium Lvl (test code = Calcium Lvl) 10.0 8.5-10.5 [facility]2019-10-09 10:47:00 Test Item Value Reference Range Interpretation Comments eGFR (test code = eGFR) 52 [facility]2019-10-09 10:47:00 Test Item Value Reference Range Interpretation Comments AGAP (test code = AGAP) 10.7 10.0-20.0 [facility]2019-10-09 10:47:00 Test Item Value Reference Range Interpretation Comments Magnesium Lvl (test code = Magnesium 2.1 1.8-2.4 Lvl) [facility]2019-10-09 10:47:00 Test Item Value Reference Range Interpretation Comments Phosphorus (test code = Phosphorus) 3.4 2.5-4.5 [facility]FkshnvyJSIMOFDVJF6914-21-63 10:47:00 Test Item Value Reference Range Interpretation Comments WBC (test code = WBC) 6.2 3.7-10.4 [facility] HospitalOuzirkoNCXHEOVLDD4544-73-80 10:47:00 Test Item Value Reference Range Interpretation Comments RBC (test code = RBC) 4.17 4.20-5.40 [facility] HospitalIqbifmtONFEWIXKNT2209-42-46 10:47:00 Test Item Value Reference Range Interpretation Comments Hgb (test code = Hgb) 12.5 12.0-16.0 [facility] HospitalDcmcsaxYLJLQDRMIG5891-34-26 10:47:00 Test Item Value Reference Range Interpretation Comments Hct (test code = Hct) 37.7 36.0-48.0 [facility] HospitalEuqfkacBDAQBUZRCA8641-98-10 10:47:00 Test Item Value Reference Range Interpretation Comments MCV (test code = MCV) 90.4 80.0-98.0 [facility] HospitalSycvdqgHEMFYRUTLQ2963-37-16 10:47:00 Test Item Value Reference Range Interpretation Comments MCH (test code = MCH) 30.0 pg 27.0-31.0 [facility] HospitalUqmxblfOUFKCPTMXX6894-56-60 10:47:00 Test Item Value Reference Range Interpretation Comments MCHC (test code = MCHC) 33.2 32.0-36.0 [facility] HospitalZtrlzzcSSZNSNLCDU4150-58-66 10:47:00 Test Item Value Reference Range Interpretation Comments RDW (test code = RDW) 13.5 11.5-14.5 [facility] HospitalPwwtlerNZVGPHKEKK1241-65-65 10:47:00 Test Item Value Reference Range Interpretation Comments Platelet (test code = Platelet) 288 525-450 [facility] HospitalSsrdvsqDXOVXAFZRB8315-13-38 10:47:00 Test Item Value Reference Range Interpretation Comments MPV (test code = MPV) 7.1 7.4-10.4 [facility] HospitalFfsgqbcUAIWYFAUEV3637-62-12 10:47:00 Test Item Value Reference Range Interpretation Comments PT (test code = PT) 13.0 s 12.0-14.7 [facility] HospitalHdtgzqzJJAIMNZYJB1644-29-64 10:47:00 Test Item Value Reference Range Interpretation Comments PTT (test code = PTT) 29.2 s 22.9-35.8 [facility] HospitalKavsmflGNNTUPNYAM2741-61-09 10:47:00 Test Item Value Reference Range Interpretation Comments INR (test code = INR) 1.00 1 0.85-1.17 [facility] HospitalHhtrsqbTIMKRYRGHV1247-31-29 10:47:00 Test Item Value Reference Range Interpretation Comments Segs (test code = Segs) 60.5 45.0-75.0 [facility] HospitalZdakxlvFUNTJWFNXK7828-12-17 10:47:00 Test Item Value Reference Range Interpretation Comments Lymphocytes (test code = Lymphocytes) 26.2 20.0-40.0 [facility] HospitalUbshzoqKNGHFSUBCV2210-26-36 10:47:00 Test Item Value Reference Range Interpretation Comments Monocytes (test code = Monocytes) 8.7 2.0-12.0 [facility] HospitalDeqgxpuGAHEVQLSPS9160-36-76 10:47:00 Test Item Value Reference Range Interpretation Comments Eosinophils (test code = 4.0 See_Comment [A utomated message] The Eosinophils) system which ge nerated this result tra nsmitted reference range : <=4.0. The reference r robbie was not used to int erpret this result as normal/abnormal . [facility] HospitalVshvuqlTEOIXHCPKM9917-23-03 10:47:00 Test Item Value Reference Range Interpretation Comments Basophils (test code = 0.6 See_Comment [Aut omated message] The Basophils) system which ge nerated this result tra nsmitted reference range : <=1.0. The reference r robbie was not used to int erpret this result as normal/abnormal . [facility] HospitalYijbgnyGYFEARXEGX5817-67-44 10:47:00 Test Item Value Reference Range Interpretation Comments Neutrophils # (test code = Neutrophils 3.7 1.5-8.1 #) [facility] HospitalFnqoctcWZYYTTMWIV9561-06-22 10:47:00 Test Item Value Reference Range Interpretation Comments Lymphocytes # (test code = Lymphocytes 1.6 1.0-5.5 #) [facility] HospitalNuirljoMSDSDNWZWO6583-44-57 10:47:00 Test Item Value Reference Range Interpretation Comments Monocytes # (test code 0.5 See_Comment [Aut omated message] The = Monocytes #) system which generated this result tra nsmitted reference range : <=0.8. The reference r robbie was not used to int erpret this result as normal/abnormal . [facility] HospitalWkeirfrWQQHPOKPFS8551-66-68 10:47:00 Test Item Value Reference Range Interpretation Comments Eosinophils # (test code 0.3 See_Comment [A utomated message] The = Eosinophils #) system whic h generated this result tra nsmitted reference range : <=0.5. The reference r robbie was not used to int erpret this result as normal/abnormal . [facility] RXZYQVY2274-71-14 10:47:00 Test Item Value Reference Range Interpretation Comments ABO/Rh (test code = ABO/Rh) O POS [facility] VDJPBDM9159-22-99 10:47:00 Test Item Value Reference Range Interpretation Comments Antibody Scrn (test Positive (06/02/19 5:47 code = Antibody Scrn) AM) [facility] CBJYTVC9712-55-92 10:47:00 Test Item Value Reference Range Interpretation Comments AB Int (test code = Non-specific IgG AB Int) Antibody [facility] [employer] [facility] UHOITKX6321-10-25 10:47:00 Test Item Value Reference Range Interpretation Comments PAUL Gel Int (test Positive (06/02/19 5:47 code = PAUL Gel Int) AM) [facility] [id number] 10:47:00 Test Item Value Reference Range Interpretation Comments C3 Int (test code = Negative (06/02/19 5:47 C3 Int) AM) [facility] [employer] TMBRAJT0418-37-86 10:47:00 Test Item Value Reference Range Interpretation Comments Eluate Int (test code = Eluate Int) See Note [facility] [employer] [id number] 10:47:00 Test Item Value Reference Range Interpretation Comments Glucose Lvl (test code = Glucose Lvl) 102 70-99 [facility] [employer] WXTKC5219-65-60 10:47:00 Test Item Value Reference Range Interpretation Comments BUN (test code = BUN) 20 7-22 [facility] [employer] XSKFT5507-27-19 10:47:00 Test Item Value Reference Range Interpretation Comments Creatinine Lvl (test code = Creatinine 1.00 0.50-1.40 Lvl) [facility]2019-[facility] 10:47:00 Test Item Value Reference Range Interpretation Comments Sodium Lvl (test code = Sodium Lvl) 143 135-145 [facility]2019-10-09 10:47:00 Test Item Value Reference Range Interpretation Comments Potassium Lvl (test code = Potassium 3.7 3.5-5.1 Lvl) [facility]2019-10-09 10:47:00 Test Item Value Reference Range Interpretation Comments Chloride Lvl (test code = Chloride Lvl) 105 95-109 [facility]2019-10-09 10:47:00 Test Item Value Reference Range Interpretation Comments CO2 (test code = CO2) 31 24-32 [facility]2019-10-09 10:47:00 Test Item Value Reference Range Interpretation Comments Calcium Lvl (test code = Calcium Lvl) 10.0 8.5-10.5 [facility]2019-10-09 10:47:00 Test Item Value Reference Range Interpretation Comments eGFR (test code = eGFR) 52 [facility]2019-10-09 10:47:00 Test Item Value Reference Range Interpretation Comments AGAP (test code = AGAP) 10.7 10.0-20.0 [facility]2019-10-09 10:47:00 Test Item Value Reference Range Interpretation Comments Magnesium Lvl (test code = Magnesium 2.1 1.8-2.4 Lvl) [facility]2019-10-09 10:47:00 Test Item Value Reference Range Interpretation Comments Phosphorus (test code = Phosphorus) 3.4 2.5-4.5 [facility] HospitalPniuxvdMPZIWCUBDD2531-43-33 10:47:00 Test Item Value Reference Range Interpretation Comments WBC (test code = WBC) 6.2 3.7-10.4 [facility] HospitalFcskfckKLZCKUXXVP7798-11-94 10:47:00 Test Item Value Reference Range Interpretation Comments RBC (test code = RBC) 4.17 4.20-5.40 [facility] HospitalRfsqilgPAXMHHLZWJ8566-31-06 10:47:00 Test Item Value Reference Range Interpretation Comments Hgb (test code = Hgb) 12.5 12.0-16.0 [facility] HospitalUkljyedGCQIKWGSCP5118-76-39 10:47:00 Test Item Value Reference Range Interpretation Comments Hct (test code = Hct) 37.7 36.0-48.0 [facility] HospitalChhtegoHNUNYSVLFK8467-99-09 10:47:00 Test Item Value Reference Range Interpretation Comments MCV (test code = MCV) 90.4 80.0-98.0 [facility] HospitalRqugpsvSHSMWOIZJV3005-85-12 10:47:00 Test Item Value Reference Range Interpretation Comments MCH (test code = MCH) 30.0 pg 27.0-31.0 [facility] HospitalJdqvhxlPAPRQRXZRC6768-91-99 10:47:00 Test Item Value Reference Range Interpretation Comments MCHC (test code = MCHC) 33.2 32.0-36.0 [facility] HospitalMpnshiuGXRGUJAJQN7522-76-11 10:47:00 Test Item Value Reference Range Interpretation Comments RDW (test code = RDW) 13.5 11.5-14.5 [facility]KbvxvkeMAGJQLVAYG9360-94-90 10:47:00 Test Item Value Reference Range Interpretation Comments Platelet (test code = Platelet) 288 133-450 [facility] HospitalUbxrouqESDRWTGEZM9652-22-21 10:47:00 Test Item Value Reference Range Interpretation Comments MPV (test code = MPV) 7.1 7.4-10.4 [facility] HospitalClrpnweHUBHTGIISR2630-93-28 10:47:00 Test Item Value Reference Range Interpretation Comments PT (test code = PT) 13.0 s 12.0-14.7 [facility] HospitalOwhurrhAWKOLZRZPX7521-39-53 10:47:00 Test Item Value Reference Range Interpretation Comments PTT (test code = PTT) 29.2 s 22.9-35.8 [facility] HospitalQbddhtcELXBLEWLZH1046-45-38 10:47:00 Test Item Value Reference Range Interpretation Comments INR (test code = INR) 1.00 1 0.85-1.17 [facility] HospitalAhumqciBITOTEWUKH5570-26-56 10:47:00 Test Item Value Reference Range Interpretation Comments Segs (test code = Segs) 60.5 45.0-75.0 [facility] HospitalLkkewlbXNBIZEGOGY5475-26-27 10:47:00 Test Item Value Reference Range Interpretation Comments Lymphocytes (test code = Lymphocytes) 26.2 20.0-40.0 [facility] HospitalXygxmmdWDDSYXSIFT3942-89-57 10:47:00 Test Item Value Reference Range Interpretation Comments Monocytes (test code = Monocytes) 8.7 2.0-12.0 [facility] HospitalRxmsxmdMNIGRMHKUA4262-72-81 10:47:00 Test Item Value Reference Range Interpretation Comments Eosinophils (test code = 4.0 See_Comment [A utomated message] The Eosinophils) system which ge nerated this result tra nsmitted reference range : <=4.0. The reference r robbie was not used to int erpret this result as normal/abnormal . [facility] HospitalBlpdwccDYZFCKYTQW1565-78-85 10:47:00 Test Item Value Reference Range Interpretation Comments Basophils (test code = 0.6 See_Comment [Aut omated message] The Basophils) system which ge nerated this result tra nsmitted reference range : <=1.0. The reference r robbie was not used to int erpret this result as normal/abnormal . [facility] HospitalRwdzrrpLDPUDPHSIB8239-65-41 10:47:00 Test Item Value Reference Range Interpretation Comments Neutrophils # (test code = Neutrophils 3.7 1.5-8.1 #) [facility] HospitalZmhdasqWLFMQDJWYJ8079-04-86 10:47:00 Test Item Value Reference Range Interpretation Comments Lymphocytes # (test code = Lymphocytes 1.6 1.0-5.5 #) [facility] HospitalOfveoywZIPAKNCIES2700-31-96 10:47:00 Test Item Value Reference Range Interpretation Comments Monocytes # (test code 0.5 See_Comment [Aut omated message] The = Monocytes #) system which generated this result tra nsmitted reference range : <=0.8. The reference r robbie was not used to int erpret this result as normal/abnormal . [facility] HospitalSpehezbOJUKXLTGSO1329-73-99 10:47:00 Test Item Value Reference Range Interpretation Comments Eosinophils # (test code 0.3 See_Comment [A utomated message] The = Eosinophils #) system whic h generated this result tra nsmitted reference range : <=0.5. The reference r robbie was not used to int erpret this result as normal/abnormal . [facility] QHNKKYW3216-94-66 10:47:00 Test Item Value Reference Range Interpretation Comments ABO/Rh (test code = ABO/Rh) O POS [facility] ZUUTZCO4796-67-57 10:47:00 Test Item Value Reference Range Interpretation Comments Antibody Scrn (test Positive (06/02/19 5:47 code = Antibody Scrn) AM) [facility] HEQRRYH1852-68-91 10:47:00 Test Item Value Reference Range Interpretation Comments AB Int (test code = Non-specific IgG AB Int) Antibody [facility] [id number] 10:47:00 Test Item Value Reference Range Interpretation Comments PAUL Gel Int (test Positive (06/02/19 5:47 code = PAUL Gel Int) AM) [facility] GXNKRQG6291-43-72 10:47:00 Test Item Value Reference Range Interpretation Comments C3 Int (test code = Negative (06/02/19 5:47 C3 Int) AM) [facility] NZEOOKR0789-16-64 10:47:00 Test Item Value Reference Range Interpretation Comments Eluate Int (test code = Eluate Int) See Note [facility] PPNIS4316-02-13 10:47:00 Test Item Value Reference Range Interpretation Comments Glucose Lvl (test code = Glucose Lvl) 102 70-99 [facility] SJXJO0287-91-24 10:47:00 Test Item Value Reference Range Interpretation Comments BUN (test code = BUN) 20 7-22 [facility] BVSHX1892-02-28 10:47:00 Test Item Value Reference Range Interpretation Comments Creatinine Lvl (test code = Creatinine 1.00 0.50-1.40 Lvl) [facility] [id number] 10:47:00 Test Item Value Reference Range Interpretation Comments Sodium Lvl (test code = Sodium Lvl) 143 135-145 [facility] MQKNZ3875-43-67 10:47:00 Test Item Value Reference Range Interpretation Comments Potassium Lvl (test code = Potassium 3.7 3.5-5.1 Lvl) [facility] NYNLF3663-77-64 10:47:00 Test Item Value Reference Range Interpretation Comments Chloride Lvl (test code = Chloride Lvl) 105 95-109 [facility] VQFQO5904-99-23 10:47:00 Test Item Value Reference Range Interpretation Comments CO2 (test code = CO2) 31 24-32 [facility] [id number] 10:47:00 Test Item Value Reference Range Interpretation Comments Calcium Lvl (test code = Calcium Lvl) 10.0 8.5-10.5 [facility]2019-10-09 10:47:00 Test Item Value Reference Range Interpretation Comments eGFR (test code = eGFR) 52 [facility]2019-10-09 10:47:00 Test Item Value Reference Range Interpretation Comments AGAP (test code = AGAP) 10.7 10.0-20.0 [facility]2019-10-09 10:47:00 Test Item Value Reference Range Interpretation Comments Magnesium Lvl (test code = Magnesium 2.1 1.8-2.4 Lvl) [facility]2019-10-09 10:47:00 Test Item Value Reference Range Interpretation Comments Phosphorus (test code = Phosphorus) 3.4 2.5-4.5 [facility] HospitalKovzifjARWWNWTERJ2217-41-67 10:47:00 Test Item Value Reference Range Interpretation Comments WBC (test code = WBC) 6.2 3.7-10.4 [facility] HospitalKwbtuugDBAFIPTYNN6909-26-16 10:47:00 Test Item Value Reference Range Interpretation Comments RBC (test code = RBC) 4.17 4.20-5.40 [facility] HospitalIjgelirSFYGXTOCIF9907-32-18 10:47:00 Test Item Value Reference Range Interpretation Comments Hgb (test code = Hgb) 12.5 12.0-16.0 [facility] HospitalHhlghvlZRTNLVAJEV5992-82-89 10:47:00 Test Item Value Reference Range Interpretation Comments Hct (test code = Hct) 37.7 36.0-48.0 [facility] HospitalJelfatiLIZQSKPMMO3341-25-66 10:47:00 Test Item Value Reference Range Interpretation Comments MCV (test code = MCV) 90.4 80.0-98.0 [facility] HospitalJbsrbsqUITMXIVIRM6865-09-25 10:47:00 Test Item Value Reference Range Interpretation Comments MCH (test code = MCH) 30.0 pg 27.0-31.0 [facility] HospitalKnpidryUQBIJDZIDC4290-20-06 10:47:00 Test Item Value Reference Range Interpretation Comments MCHC (test code = MCHC) 33.2 32.0-36.0 [facility] HospitalBvnxvvhJMCSNXUJZS2436-37-02 10:47:00 Test Item Value Reference Range Interpretation Comments RDW (test code = RDW) 13.5 11.5-14.5 [facility] HospitalSfhmngwKCPSRWCCPI8613-36-61 10:47:00 Test Item Value Reference Range Interpretation Comments Platelet (test code = Platelet) 288 133-450 [facility] HospitalRukcmnhSMFWLHPZVD2432-61-05 10:47:00 Test Item Value Reference Range Interpretation Comments MPV (test code = MPV) 7.1 7.4-10.4 [facility] HospitalOeudscpGSGIYXTZFZ6972-41-37 10:47:00 Test Item Value Reference Range Interpretation Comments PT (test code = PT) 13.0 s 12.0-14.7 [facility] HospitalBmfjqhgQZEQAWEYTT5422-33-97 10:47:00 Test Item Value Reference Range Interpretation Comments PTT (test code = PTT) 29.2 s 22.9-35.8 [facility] HospitalBwggaviOQTUOSJAEJ2877-98-00 10:47:00 Test Item Value Reference Range Interpretation Comments INR (test code = INR) 1.00 1 0.85-1.17 [facility] HospitalJsjzypbUPABYYVWJY1097-20-57 10:47:00 Test Item Value Reference Range Interpretation Comments Segs (test code = Segs) 60.5 45.0-75.0 [facility] HospitalAwvejjqEEVIPAPGMM8957-90-27 10:47:00 Test Item Value Reference Range Interpretation Comments Lymphocytes (test code = Lymphocytes) 26.2 20.0-40.0 [facility] HospitalHgvwofsSWDFOFNIRF9849-74-36 10:47:00 Test Item Value Reference Range Interpretation Comments Monocytes (test code = Monocytes) 8.7 2.0-12.0 [facility] HospitalPmjydyxFZMXWYTAEB4480-13-84 10:47:00 Test Item Value Reference Range Interpretation Comments Eosinophils (test code = 4.0 See_Comment [A utomated message] The Eosinophils) system which ge nerated this result tra nsmitted reference range : <=4.0. The reference r robbie was not used to int erpret this result as normal/abnormal . [facility] HospitalCikpfueKYDAJBAESA6148-45-19 10:47:00 Test Item Value Reference Range Interpretation Comments Basophils (test code = 0.6 See_Comment [Aut omated message] The Basophils) system which ge nerated this result tra nsmitted reference range : <=1.0. The reference r robbie was not used to int erpret this result as normal/abnormal . [facility] HospitalNkwyuelHICPXQGYCA6755-43-05 10:47:00 Test Item Value Reference Range Interpretation Comments Neutrophils # (test code = Neutrophils 3.7 1.5-8.1 #) [facility] HospitalPgzeywgMDDYYEPNBR0601-89-61 10:47:00 Test Item Value Reference Range Interpretation Comments Lymphocytes # (test code = Lymphocytes 1.6 1.0-5.5 #) [facility] HospitalQirltfmMTSSSTPCNE0690-57-01 10:47:00 Test Item Value Reference Range Interpretation Comments Monocytes # (test code 0.5 See_Comment [Aut omated message] The = Monocytes #) system which generated this result tra nsmitted reference range : <=0.8. The reference r robbie was not used to int erpret this result as normal/abnormal . [facility] HospitalPygzozaHWMZCQNFGB9367-98-46 10:47:00 Test Item Value Reference Range Interpretation Comments Eosinophils # (test code 0.3 See_Comment [A utomated message] The = Eosinophils #) system whic h generated this result tra nsmitted reference range : <=0.5. The reference r robbie was not used to int erpret this result as normal/abnormal . [facility] RMKWPUS3613-30-54 10:47:00 Test Item Value Reference Range Interpretation Comments ABO/Rh (test code = ABO/Rh) O POS [facility] [id number] 10:47:00 Test Item Value Reference Range Interpretation Comments Antibody Scrn (test Positive (06/02/19 5:47 code = Antibody Scrn) AM) [facility] [id number] 10:47:00 Test Item Value Reference Range Interpretation Comments AB Int (test code = Non-specific IgG AB Int) Antibody [facility] [id number] 10:47:00 Test Item Value Reference Range Interpretation Comments PAUL Gel Int (test Positive (06/02/19 5:47 code = PAUL Gel Int) AM) [facility] AMTEVWU2050-15-77 10:47:00 Test Item Value Reference Range Interpretation Comments C3 Int (test code = Negative (06/02/19 5:47 C3 Int) AM) [facility] GHVKNBH5029-19-31 10:47:00 Test Item Value Reference Range Interpretation Comments Eluate Int (test code = Eluate Int) See Note [facility] DWPDL4405-32-08 10:47:00 Test Item Value Reference Range Interpretation Comments Glucose Lvl (test code = Glucose Lvl) 102 70-99 [facility]2019-10-09 10:47:00 Test Item Value Reference Range Interpretation Comments BUN (test code = BUN) 20 7-22 [facility]2019-10-09 10:47:00 Test Item Value Reference Range Interpretation Comments Creatinine Lvl (test code = Creatinine 1.00 0.50-1.40 Lvl) [facility]2019-10-09 10:47:00 Test Item Value Reference Range Interpretation Comments Sodium Lvl (test code = Sodium Lvl) 143 135-145 [facility]2019-10-09 10:47:00 Test Item Value Reference Range Interpretation Comments Potassium Lvl (test code = Potassium 3.7 3.5-5.1 Lvl) [facility]2019-10-09 10:47:00 Test Item Value Reference Range Interpretation Comments Chloride Lvl (test code = Chloride Lvl) 105 95-109 [facility]2019-10-09 10:47:00 Test Item Value Reference Range Interpretation Comments CO2 (test code = CO2) 31 24-32 [facility]2019-10-09 10:47:00 Test Item Value Reference Range Interpretation Comments Calcium Lvl (test code = Calcium Lvl) 10.0 8.5-10.5 [facility]2019-10-09 10:47:00 Test Item Value Reference Range Interpretation Comments eGFR (test code = eGFR) 52 [facility]2019-10-09 10:47:00 Test Item Value Reference Range Interpretation Comments AGAP (test code = AGAP) 10.7 10.0-20.0 [facility]2019-10-09 10:47:00 Test Item Value Reference Range Interpretation Comments Magnesium Lvl (test code = Magnesium 2.1 1.8-2.4 Lvl) [facility]2019-10-09 10:47:00 Test Item Value Reference Range Interpretation Comments Phosphorus (test code = Phosphorus) 3.4 2.5-4.5 [facility]NfocydoJCOGBGOSIJ2128-43-63 10:47:00 Test Item Value Reference Range Interpretation Comments WBC (test code = WBC) 6.2 3.7-10.4 [facility] HospitalThwqlboMLGFUVUKXQ8961-52-42 10:47:00 Test Item Value Reference Range Interpretation Comments RBC (test code = RBC) 4.17 4.20-5.40 [facility] HospitalWhlagbaDWXITRYOFP5400-00-11 10:47:00 Test Item Value Reference Range Interpretation Comments Hgb (test code = Hgb) 12.5 12.0-16.0 [facility] HospitalUvnqoumYYVRXEKZIZ8007-59-37 10:47:00 Test Item Value Reference Range Interpretation Comments Hct (test code = Hct) 37.7 36.0-48.0 [facility] HospitalPllzbnsNESDRPQYRM3995-28-05 10:47:00 Test Item Value Reference Range Interpretation Comments MCV (test code = MCV) 90.4 80.0-98.0 [facility] HospitalCkkgrorEAJFLKVHCJ9762-00-86 10:47:00 Test Item Value Reference Range Interpretation Comments MCH (test code = MCH) 30.0 pg 27.0-31.0 [facility] HospitalAqdhbxxUAUJAQJCMQ5897-09-73 10:47:00 Test Item Value Reference Range Interpretation Comments MCHC (test code = MCHC) 33.2 32.0-36.0 [facility] HospitalPwfmcokBNANBMKJLL7821-70-93 10:47:00 Test Item Value Reference Range Interpretation Comments RDW (test code = RDW) 13.5 11.5-14.5 [facility] HospitalEeyzflaHUKQZIGVCO6553-00-67 10:47:00 Test Item Value Reference Range Interpretation Comments Platelet (test code = Platelet) 288 133-450 [facility] HospitalDjvlhctFVLMCEUNPV5599-56-15 10:47:00 Test Item Value Reference Range Interpretation Comments MPV (test code = MPV) 7.1 7.4-10.4 [facility] HospitalSsqnjvuCZKFONPPTE3421-65-90 10:47:00 Test Item Value Reference Range Interpretation Comments PT (test code = PT) 13.0 s 12.0-14.7 [facility] HospitalAhbcbkuWMLJDEKLUU7230-53-68 10:47:00 Test Item Value Reference Range Interpretation Comments PTT (test code = PTT) 29.2 s 22.9-35.8 [facility] HospitalSlgkrosZKBEHSZJVG5050-86-02 10:47:00 Test Item Value Reference Range Interpretation Comments INR (test code = INR) 1.00 1 0.85-1.17 [facility] HospitalAqwcdugEKWJWSCLJY2720-06-65 10:47:00 Test Item Value Reference Range Interpretation Comments Segs (test code = Segs) 60.5 45.0-75.0 [facility] HospitalQeyukxiAYITNEGQBC4492-75-20 10:47:00 Test Item Value Reference Range Interpretation Comments Lymphocytes (test code = Lymphocytes) 26.2 20.0-40.0 [facility] HospitalJgkfjgrAREKSFEVGO5920-92-58 10:47:00 Test Item Value Reference Range Interpretation Comments Monocytes (test code = Monocytes) 8.7 2.0-12.0 [facility] HospitalZgyjhmcUVJPHLTIPR2023-12-18 10:47:00 Test Item Value Reference Range Interpretation Comments Eosinophils (test code = 4.0 See_Comment [A utomated message] The Eosinophils) system which ge nerated this result tra nsmitted reference range : <=4.0. The reference r robbie was not used to int erpret this result as normal/abnormal . [facility] HospitalNztvuqaCCNGKGUDPI8407-93-87 10:47:00 Test Item Value Reference Range Interpretation Comments Basophils (test code = 0.6 See_Comment [Aut omated message] The Basophils) system which ge nerated this result tra nsmitted reference range : <=1.0. The reference r robbie was not used to int erpret this result as normal/abnormal . [facility] HospitalNtuwpdeLKNEBHXEKN1527-83-86 10:47:00 Test Item Value Reference Range Interpretation Comments Neutrophils # (test code = Neutrophils 3.7 1.5-8.1 #) [facility] HospitalSdprccgMQGNBUELDX7407-17-30 10:47:00 Test Item Value Reference Range Interpretation Comments Lymphocytes # (test code = Lymphocytes 1.6 1.0-5.5 #) [facility] HospitalZwftlyfREMAHLIPBN2569-55-24 10:47:00 Test Item Value Reference Range Interpretation Comments Monocytes # (test code 0.5 See_Comment [Aut omated message] The = Monocytes #) system which generated this result tra nsmitted reference range : <=0.8. The reference r robbie was not used to int erpret this result as normal/abnormal . [facility] HospitalPwcqrcqQGZMKMFDAD7664-96-96 10:47:00 Test Item Value Reference Range Interpretation Comments Eosinophils # (test code 0.3 See_Comment [A utomated message] The = Eosinophils #) system wh h generated this result tra nsmitted reference range : <=0.5. The reference r robbie was not used to int erpret this result as normal/abnormal . [facility] YAFTJMI3925-43-56 10:47:00 Test Item Value Reference Range Interpretation Comments ABO/Rh (test code = ABO/Rh) O POS [facility] OSCXCRT6076-59-35 10:47:00 Test Item Value Reference Range Interpretation Comments Antibody Scrn (test Positive (06/02/19 5:47 code = Antibody Scrn) AM) [facility] HTVUWWQ5334-13-77 10:47:00 Test Item Value Reference Range Interpretation Comments AB Int (test code = Non-specific IgG AB Int) Antibody [facility] RIWSEAP8387-41-34 10:47:00 Test Item Value Reference Range Interpretation Comments PAUL Gel Int (test Positive (06/02/19 5:47 code = PAUL Gel Int) AM) [facility] [id number] 10:47:00 Test Item Value Reference Range Interpretation Comments C3 Int (test code = Negative (06/02/19 5:47 C3 Int) AM) [facility] QWOEUIU5461-48-62 10:47:00 Test Item Value Reference Range Interpretation Comments Eluate Int (test code = Eluate Int) [facility] UGXMS4265-56-36 10:47:00 Test Item Value Reference Range Interpretation Comments Glucose Lvl (test code = Glucose Lvl) 102 70-99 [facility] FUKDO2792-32-75 10:47:00 Test Item Value Reference Range Interpretation Comments BUN (test code = BUN) 20 7-22 [facility] XZFZO5886-96-47 10:47:00 Test Item Value Reference Range Interpretation Comments Creatinine Lvl (test code = Creatinine 1.00 0.50-1.40 Lvl) [facility] [id number] 10:47:00 Test Item Value Reference Range Interpretation Comments Sodium Lvl (test code = Sodium Lvl) 143 135-145 [facility] NHHIZ2335-19-59 10:47:00 Test Item Value Reference Range Interpretation Comments Potassium Lvl (test code = Potassium 3.7 3.5-5.1 Lvl) [facility] UUUZJ4204-64-14 10:47:00 Test Item Value Reference Range Interpretation Comments Chloride Lvl (test code = Chloride Lvl) 105 95-109 [facility]2019-10-09 10:47:00 Test Item Value Reference Range Interpretation Comments CO2 (test code = CO2) 31 24-32 [facility]2019-10-09 10:47:00 Test Item Value Reference Range Interpretation Comments Calcium Lvl (test code = Calcium Lvl) 10.0 8.5-10.5 [facility]2019-10-09 10:47:00 Test Item Value Reference Range Interpretation Comments eGFR (test code = eGFR) 52 [facility]2019-10-09 10:47:00 Test Item Value Reference Range Interpretation Comments AGAP (test code = AGAP) 10.7 10.0-20.0 [facility]2019-10-09 10:47:00 Test Item Value Reference Range Interpretation Comments Magnesium Lvl (test code = Magnesium 2.1 1.8-2.4 Lvl) [facility]2019-10-09 10:47:00 Test Item Value Reference Range Interpretation Comments Phosphorus (test code = Phosphorus) 3.4 2.5-4.5 [facility] HospitalWmzwecmFDXLIIUKOR2345-03-06 10:47:00 Test Item Value Reference Range Interpretation Comments WBC (test code = WBC) 6.2 3.7-10.4 [facility] HospitalVdtsapnVLVLZBOJSB8260-37-90 10:47:00 Test Item Value Reference Range Interpretation Comments RBC (test code = RBC) 4.17 4.20-5.40 [facility] HospitalAefwqceQLOFVDPPTX0035-18-82 10:47:00 Test Item Value Reference Range Interpretation Comments Hgb (test code = Hgb) 12.5 12.0-16.0 [facility] HospitalSnigufhGLVGMJLEIZ8437-49-35 10:47:00 Test Item Value Reference Range Interpretation Comments Hct (test code = Hct) 37.7 36.0-48.0 [facility] HospitalZkiaacgKTQARGAITW4578-25-60 10:47:00 Test Item Value Reference Range Interpretation Comments MCV (test code = MCV) 90.4 80.0-98.0 [facility] HospitalSpmwesdJBJDPGOQAZ3603-29-18 10:47:00 Test Item Value Reference Range Interpretation Comments MCH (test code = MCH) 30.0 pg 27.0-31.0 [facility] HospitalFiwfrklVHRINSWZQF8160-71-78 10:47:00 Test Item Value Reference Range Interpretation Comments MCHC (test code = MCHC) 33.2 32.0-36.0 [facility] HospitalTkuebwjRILGADGQOH2279-46-53 10:47:00 Test Item Value Reference Range Interpretation Comments RDW (test code = RDW) 13.5 11.5-14.5 [facility] HospitalUadethvWUPACKPLGI9525-26-65 10:47:00 Test Item Value Reference Range Interpretation Comments Platelet (test code = Platelet) 288 133-450 [facility] HospitalJykkmuwUFFJBQKPDG7208-24-79 10:47:00 Test Item Value Reference Range Interpretation Comments MPV (test code = MPV) 7.1 7.4-10.4 [facility] HospitalQhprytfAWEMIAQSIS5322-31-07 10:47:00 Test Item Value Reference Range Interpretation Comments PT (test code = PT) 13.0 s 12.0-14.7 [facility] HospitalFqsyeqsQKZOVVFWGR0292-44-39 10:47:00 Test Item Value Reference Range Interpretation Comments PTT (test code = PTT) 29.2 s 22.9-35.8 [facility] HospitalLpmpayhIETBIWSVPK7414-20-68 10:47:00 Test Item Value Reference Range Interpretation Comments INR (test code = INR) 1.00 1 0.85-1.17 [facility] HospitalDsfvqjwDYSXMFNNYS8878-02-63 10:47:00 Test Item Value Reference Range Interpretation Comments Segs (test code = Segs) 60.5 45.0-75.0 [facility] HospitalEqazoejCISKICRZHZ0806-28-85 10:47:00 Test Item Value Reference Range Interpretation Comments Lymphocytes (test code = Lymphocytes) 26.2 20.0-40.0 [facility] HospitalJyucvdbUBBZYJGLEZ3479-52-89 10:47:00 Test Item Value Reference Range Interpretation Comments Monocytes (test code = Monocytes) 8.7 2.0-12.0 [facility] [facility]Z6426-11-51 10:47:00 Test Item Value Reference Range Interpretation Comments Eosinophils (test code = 4.0 See_Comment [A utomated message] The Eosinophils) system which ge nerated this result tra nsmitted reference range : <=4.0. The reference r robbie was not used to int erpret this result as normal/abnormal . [facility]juz[facility]UJHQFBZLNG2204-57-27 10:47:00 Test Item Value Reference Range Interpretation Comments Basophils (test code = 0.6 See_Comment [Aut omated message] The Basophils) system which ge nerated this result tra nsmitted reference range : <=1.0. The reference r robbie was not used to int erpret this result as normal/abnormal . [facility] HospitalRrkciaaCUGDVXWCAV9819-50-54 10:47:00 Test Item Value Reference Range Interpretation Comments Neutrophils # (test code = Neutrophils 3.7 1.5-8.1 #) [facility] HospitalKkdpuptNAYHJQJLWY4340-47-75 10:47:00 Test Item Value Reference Range Interpretation Comments Lymphocytes # (test code = Lymphocytes 1.6 1.0-5.5 #) [facility] HospitalOyfctjzWBEREMWPWD7928-34-04 10:47:00 Test Item Value Reference Range Interpretation Comments Monocytes # (test code 0.5 See_Comment [Aut omated message] The = Monocytes #) system which generated this result tra nsmitted reference range : <=0.8. The reference r robbie was not used to int erpret this result as normal/abnormal . [facility] HospitalNxlqfocQDLTIOHJOS7671-64-60 10:47:00 Test Item Value Reference Range Interpretation Comments Eosinophils # (test code 0.3 See_Comment [A utomated message] The = Eosinophils #) system whic h generated this result tra nsmitted reference range : <=0.5. The reference r robbie was not used to int erpret this result as normal/abnormal . [facility] [id number] 10:47:00 Test Item Value Reference Range Interpretation Comments ABO/Rh (test code = ABO/Rh) O POS [facility] [id number] 10:47:00 Test Item Value Reference Range Interpretation Comments Antibody Scrn (test Positive (06/02/19 5:47 code = Antibody Scrn) AM) [facility] [id number] 10:47:00 Test Item Value Reference Range Interpretation Comments AB Int (test code = Non-specific IgG AB Int) Antibody [facility] [id number] 10:47:00 Test Item Value Reference Range Interpretation Comments PAUL Gel Int (test Positive (06/02/19 5:47 code = PAUL Gel Int) AM) [facility] UGKARQZ6733-04-27 10:47:00 Test Item Value Reference Range Interpretation Comments C3 Int (test code = Negative (06/02/19 5:47 C3 Int) AM) [facility] [id number] 10:47:00 Test Item Value Reference Range Interpretation Comments Eluate Int (test code = Eluate Int) See Note [facility]2019-10-09 10:47:00 Test Item Value Reference Range Interpretation Comments Glucose Lvl (test code = Glucose Lvl) 102 70-99 [facility]2019-10-09 10:47:00 Test Item Value Reference Range Interpretation Comments BUN (test code = BUN) 20 7-22 [facility]2019-10-09 10:47:00 Test Item Value Reference Range Interpretation Comments Creatinine Lvl (test code = Creatinine 1.00 0.50-1.40 Lvl) [facility]2019-10-09 10:47:00 Test Item Value Reference Range Interpretation Comments Sodium Lvl (test code = Sodium Lvl) 143 135-145 [facility]2019-10-09 10:47:00 Test Item Value Reference Range Interpretation Comments Potassium Lvl (test code = Potassium 3.7 3.5-5.1 Lvl) [facility]2019-10-09 10:47:00 Test Item Value Reference Range Interpretation Comments Chloride Lvl (test code = Chloride Lvl) 105 95-109 [facility]2019-10-09 10:47:00 Test Item Value Reference Range Interpretation Comments CO2 (test code = CO2) 31 24-32 [facility]2019-10-09 10:47:00 Test Item Value Reference Range Interpretation Comments Calcium Lvl (test code = Calcium Lvl) 10.0 8.5-10.5 [facility]2019-10-09 10:47:00 Test Item Value Reference Range Interpretation Comments eGFR (test code = eGFR) 52 [facility]2019-10-09 10:47:00 Test Item Value Reference Range Interpretation Comments AGAP (test code = AGAP) 10.7 10.0-20.0 [facility]2019-10-09 10:47:00 Test Item Value Reference Range Interpretation Comments Magnesium Lvl (test code = Magnesium 2.1 1.8-2.4 Lvl) [facility]2019-10-09 10:47:00 Test Item Value Reference Range Interpretation Comments Phosphorus (test code = Phosphorus) 3.4 2.5-4.5 [facility]FubzwhbCBLEQNZUPX5575-80-66 10:47:00 Test Item Value Reference Range Interpretation Comments WBC (test code = WBC) 6.2 3.7-10.4 [facility] HospitalRytgvuaRJGBNOXDWR5134-34-40 10:47:00 Test Item Value Reference Range Interpretation Comments RBC (test code = RBC) 4.17 4.20-5.40 [facility] HospitalMhiikihXLVHPXVVLK9987-16-03 10:47:00 Test Item Value Reference Range Interpretation Comments Hgb (test code = Hgb) 12.5 12.0-16.0 [facility] HospitalWgmysukGEWLTUWIRM2625-49-91 10:47:00 Test Item Value Reference Range Interpretation Comments Hct (test code = Hct) 37.7 36.0-48.0 [facility] HospitalQuvcdtlDYTGAVNDKB8851-61-25 10:47:00 Test Item Value Reference Range Interpretation Comments MCV (test code = MCV) 90.4 80.0-98.0 [facility] HospitalOlebabwRRTZRCSOAN9629-12-75 10:47:00 Test Item Value Reference Range Interpretation Comments MCH (test code = MCH) 30.0 pg 27.0-31.0 [facility] HospitalXlhzkplEWBEPVSKLE2856-11-45 10:47:00 Test Item Value Reference Range Interpretation Comments MCHC (test code = MCHC) 33.2 32.0-36.0 [facility] HospitalQaxgvwiIVISNTJRED8591-34-49 10:47:00 Test Item Value Reference Range Interpretation Comments RDW (test code = RDW) 13.5 11.5-14.5 [facility] HospitalUwdkkadHOKFKSODRN1406-25-15 10:47:00 Test Item Value Reference Range Interpretation Comments Platelet (test code = Platelet) 288 241-450 [facility] HospitalHzyphxkOJRSCONHTU0197-18-67 10:47:00 Test Item Value Reference Range Interpretation Comments MPV (test code = MPV) 7.1 7.4-10.4 [facility] HospitalFnlrbfpBIZIIQBKMX8262-15-49 10:47:00 Test Item Value Reference Range Interpretation Comments PT (test code = PT) 13.0 s 12.0-14.7 [facility] HospitalAjcolscWXVBPVBLID8139-26-40 10:47:00 Test Item Value Reference Range Interpretation Comments PTT (test code = PTT) 29.2 s 22.9-35.8 [facility] HospitalRgfsgffCTKFAVGEHF6834-79-40 10:47:00 Test Item Value Reference Range Interpretation Comments INR (test code = INR) 1.00 1 0.85-1.17 [facility] HospitalEcfgkuvARMQIZPXPX4882-63-61 10:47:00 Test Item Value Reference Range Interpretation Comments Segs (test code = Segs) 60.5 45.0-75.0 [facility] HospitalUzgfuvmKTFZOVITTI5622-01-43 10:47:00 Test Item Value Reference Range Interpretation Comments Lymphocytes (test code = Lymphocytes) 26.2 20.0-40.0 [facility] HospitalLbmigkqJYMAKCEWZY8241-33-43 10:47:00 Test Item Value Reference Range Interpretation Comments Monocytes (test code = Monocytes) 8.7 2.0-12.0 [facility] HospitalBjdrqukGSKLNUJSYY5767-78-25 10:47:00 Test Item Value Reference Range Interpretation Comments Eosinophils (test code = 4.0 See_Comment [A utomated message] The Eosinophils) system which ge nerated this result tra nsmitted reference range : <=4.0. The reference r robbie was not used to int erpret this result as normal/abnormal . [facility] HospitalAzahiiyNZQEATJWAK8470-10-30 10:47:00 Test Item Value Reference Range Interpretation Comments Basophils (test code = 0.6 See_Comment [Aut omated message] The Basophils) system which ge nerated this result tra nsmitted reference range : <=1.0. The reference r robbie was not used to int erpret this result as normal/abnormal . [facility] HospitalLqynsfmBZPDNGKQFS7309-60-70 10:47:00 Test Item Value Reference Range Interpretation Comments Neutrophils # (test code = Neutrophils 3.7 1.5-8.1 #) [facility] HospitalYckgbvhMTXKDGHXSE8518-10-01 10:47:00 Test Item Value Reference Range Interpretation Comments Lymphocytes # (test code = Lymphocytes 1.6 1.0-5.5 #) [facility] HospitalQreokwoFTWUCAPVMF6286-60-20 10:47:00 Test Item Value Reference Range Interpretation Comments Monocytes # (test code 0.5 See_Comment [Aut omated message] The = Monocytes #) system which generated this result tra nsmitted reference range : <=0.8. The reference r robbie was not used to int erpret this result as normal/abnormal . [facility]ZbporbgTGSZJURYSL3815-29-40 10:47:00 Test Item Value Reference Range Interpretation Comments Eosinophils # (test code 0.3 See_Comment [A utomated message] The = Eosinophils #) system whic h generated this result tra nsmitted reference range : <=0.5. The reference r robbie was not used to int erpret this result as normal/abnormal . [facility] [id number] 10:47:00 Test Item Value Reference Range Interpretation Comments ABO/Rh (test code = ABO/Rh) O [facility] WDJOOJF3909-08-14 10:47:00 Test Item Value Reference Range Interpretation Comments Antibody Scrn (test Positive (06/02/19 5:47 code = Antibody Scrn) AM) [facility] [id number] 10:47:00 Test Item Value Reference Range Interpretation Comments AB Int (test code = Non-specific IgG AB Int) Antibody [facility] [id number] 10:47:00 Test Item Value Reference Range Interpretation Comments PAUL Gel Int (test Positive (06/02/19 5:47 code = PAUL Gel Int) AM) [facility] LXSNHQU8115-16-61 10:47:00 Test Item Value Reference Range Interpretation Comments C3 Int (test code = Negative (06/02/19 5:47 C3 Int) AM) [facility] GHININY0798-54-63 10:47:00 Test Item Value Reference Range Interpretation Comments Eluate Int (test code = Eluate Int) See Note [facility] [employer] MFCWE8870-14-56 10:47:00 Test Item Value Reference Range Interpretation Comments Glucose Lvl (test code = Glucose Lvl) 102 70-99 [facility] [employer] HUQJA9148-19-61 10:47:00 Test Item Value Reference Range Interpretation Comments BUN (test code = BUN) 20 7-22 [facility] [employer] QFAZY9943-51-71 10:47:00 Test Item Value Reference Range Interpretation Comments Creatinine Lvl (test code = Creatinine 1.00 0.50-1.40 Lvl) [facility] LOQDP1158-80-14 10:47:00 Test Item Value Reference Range Interpretation Comments Sodium Lvl (test code = Sodium Lvl) 143 135-145 [facility]2019-10-09 10:47:00 Test Item Value Reference Range Interpretation Comments Potassium Lvl (test code = Potassium 3.7 3.5-5.1 Lvl) [facility]2019-10-09 10:47:00 Test Item Value Reference Range Interpretation Comments Chloride Lvl (test code = Chloride Lvl) 105 95-109 [facility]2019-10-09 10:47:00 Test Item Value Reference Range Interpretation Comments CO2 (test code = CO2) 31 24-32 [facility]2019-10-09 10:47:00 Test Item Value Reference Range Interpretation Comments Calcium Lvl (test code = Calcium Lvl) 10.0 8.5-10.5 [facility]2019-10-09 10:47:00 Test Item Value Reference Range Interpretation Comments eGFR (test code = eGFR) 52 [facility]2019-10-09 10:47:00 Test Item Value Reference Range Interpretation Comments AGAP (test code = AGAP) 10.7 10.0-20.0 [facility]2019-10-09 10:47:00 Test Item Value Reference Range Interpretation Comments Magnesium Lvl (test code = Magnesium 2.1 1.8-2.4 Lvl) [facility]2019-10-09 10:47:00 Test Item Value Reference Range Interpretation Comments Phosphorus (test code = Phosphorus) 3.4 2.5-4.5 [facility] HospitalSbpwingIAUEWXXBNY8578-47-14 10:47:00 Test Item Value Reference Range Interpretation Comments WBC (test code = WBC) 6.2 3.7-10.4 [facility] HospitalDvbaggfMEDAHSZRMD0108-86-06 10:47:00 Test Item Value Reference Range Interpretation Comments RBC (test code = RBC) 4.17 4.20-5.40 [facility] HospitalVbmwjinOJKCQFNULJ7826-22-07 10:47:00 Test Item Value Reference Range Interpretation Comments Hgb (test code = Hgb) 12.5 12.0-16.0 [facility] HospitalYsimkexUOZXWAWGUH6204-84-10 10:47:00 Test Item Value Reference Range Interpretation Comments Hct (test code = Hct) 37.7 36.0-48.0 [facility] HospitalJajjgpuLPMCZBQDJJ8500-71-48 10:47:00 Test Item Value Reference Range Interpretation Comments MCV (test code = MCV) 90.4 80.0-98.0 [facility] HospitalGcvcjfaXDLRCAHNOS1832-47-12 10:47:00 Test Item Value Reference Range Interpretation Comments MCH (test code = MCH) 30.0 pg 27.0-31.0 [facility] HospitalRwqhvxpWHWMODCJAV2506-47-70 10:47:00 Test Item Value Reference Range Interpretation Comments MCHC (test code = MCHC) 33.2 32.0-36.0 [facility] HospitalIgbhvmdOHBVJJNTJF4092-97-63 10:47:00 Test Item Value Reference Range Interpretation Comments RDW (test code = RDW) 13.5 11.5-14.5 [facility] HospitalUjhtqvhDEFJVHYNBY3349-86-86 10:47:00 Test Item Value Reference Range Interpretation Comments Platelet (test code = Platelet) 288 133-450 [facility] HospitalArvcwuvUWSEMZMKXM4332-02-78 10:47:00 Test Item Value Reference Range Interpretation Comments MPV (test code = MPV) 7.1 7.4-10.4 [facility] HospitalVvbinvlQCKPQDODXB4939-00-09 10:47:00 Test Item Value Reference Range Interpretation Comments PT (test code = PT) 13.0 s 12.0-14.7 [facility] HospitalEtuqdfgHXMKNTTERR6653-25-99 10:47:00 Test Item Value Reference Range Interpretation Comments PTT (test code = PTT) 29.2 s 22.9-35.8 [facility] HospitalGeedxgwICRUHJCQNO1934-58-01 10:47:00 Test Item Value Reference Range Interpretation Comments INR (test code = INR) 1.00 1 0.85-1.17 [facility] HospitalVxcegkkTUKDQUFCTV4153-39-95 10:47:00 Test Item Value Reference Range Interpretation Comments Segs (test code = Segs) 60.5 45.0-75.0 [facility] HospitalYqwulieXDVYEQETMK7728-74-79 10:47:00 Test Item Value Reference Range Interpretation Comments Lymphocytes (test code = Lymphocytes) 26.2 20.0-40.0 [facility] HospitalNorzfmaMNQMOBCZRF8994-35-74 10:47:00 Test Item Value Reference Range Interpretation Comments Monocytes (test code = Monocytes) 8.7 2.0-12.0 [facility] HospitalXnvwccbEUGGILGRMP5309-99-51 10:47:00 Test Item Value Reference Range Interpretation Comments Eosinophils (test code = 4.0 See_Comment [A utomated message] The Eosinophils) system which ge nerated this result tra nsmitted reference range : <=4.0. The reference r robbie was not used to int erpret this result as normal/abnormal . [facility] HospitalHfflmxaWMMYOGUABU5727-21-83 10:47:00 Test Item Value Reference Range Interpretation Comments Basophils (test code = 0.6 See_Comment [Aut omated message] The Basophils) system which ge nerated this result tra nsmitted reference range : <=1.0. The reference r robbie was not used to int erpret this result as normal/abnormal . [facility] HospitalVroeolbRDUQKDJVXX4747-37-17 10:47:00 Test Item Value Reference Range Interpretation Comments Neutrophils # (test code = Neutrophils 3.7 1.5-8.1 #) [facility] HospitalGbgqaeuHZVSAEEIXB9918-16-69 10:47:00 Test Item Value Reference Range Interpretation Comments Lymphocytes # (test code = Lymphocytes 1.6 1.0-5.5 #) [facility] HospitalSglkcnnTQUYAGFXSR1799-49-28 10:47:00 Test Item Value Reference Range Interpretation Comments Monocytes # (test code 0.5 See_Comment [Aut omated message] The = Monocytes #) system which generated this result tra nsmitted reference range : <=0.8. The reference r robbie was not used to int erpret this result as normal/abnormal . [facility] HospitalOnixrioAEGUOOXIOI0222-66-66 10:47:00 Test Item Value Reference Range Interpretation Comments Eosinophils # (test code 0.3 See_Comment [A utomated message] The = Eosinophils #) system whic h generated this result tra nsmitted reference range : <=0.5. The reference r robbie was not used to int erpret this result as normal/abnormal . [facility] [id number] 10:47:00 Test Item Value Reference Range Interpretation Comments ABO/Rh (test code = ABO/Rh) O POS [facility] [id number] 10:47:00 Test Item Value Reference Range Interpretation Comments Antibody Scrn (test Positive (06/02/19 5:47 code = Antibody Scrn) AM) [facility] [id number] 10:47:00 Test Item Value Reference Range Interpretation Comments AB Int (test code = Non-specific IgG AB Int) Antibody [facility] [id number] 10:47:00 Test Item Value Reference Range Interpretation Comments PAUL Gel Int (test Positive (06/02/19 5:47 code = PAUL Gel Int) AM) [facility] APSSOVG7220-90-35 10:47:00 Test Item Value Reference Range Interpretation Comments C3 Int (test code = Negative (06/02/19 5:47 C3 Int) AM) [facility] RXTUCMK3833-98-78 10:47:00 Test Item Value Reference Range Interpretation Comments Eluate Int (test code = Eluate Int) [facility] Note [facility] [id number] 10:47:00 Test Item Value Reference Range Interpretation Comments Glucose Lvl (test code = Glucose Lvl) 102 70-99 [facility] WDQQX0336-49-00 10:47:00 Test Item Value Reference Range Interpretation Comments BUN (test code = BUN) 20 7-22 [facility] AOZHF9683-76-37 10:47:00 Test Item Value Reference Range Interpretation Comments Creatinine Lvl (test code = Creatinine 1.00 0.50-1.40 Lvl) [facility] [id number] 10:47:00 Test Item Value Reference Range Interpretation Comments Sodium Lvl (test code = Sodium Lvl) 143 135-145 [facility] JRRKP8662-53-78 10:47:00 Test Item Value Reference Range Interpretation Comments Potassium Lvl (test code = Potassium 3.7 3.5-5.1 Lvl) [facility] [id number] 10:47:00 Test Item Value Reference Range Interpretation Comments Chloride Lvl (test code = Chloride Lvl) 105 95-109 [facility] KTUXN1423-39-97 10:47:00 Test Item Value Reference Range Interpretation Comments CO2 (test code = CO2) 31 24-32 [facility] GTFYR4768-40-59 10:47:00 Test Item Value Reference Range Interpretation Comments Calcium Lvl (test code = Calcium Lvl) 10.0 8.5-10.5 [facility] [id number] 10:47:00 Test Item Value Reference Range Interpretation Comments eGFR (test code = eGFR) 52 [facility] UOGKN9003-85-84 10:47:00 Test Item Value Reference Range Interpretation Comments AGAP (test code = AGAP) 10.7 10.0-20.0 [facility]2019-10-09 10:47:00 Test Item Value Reference Range Interpretation Comments Magnesium Lvl (test code = Magnesium 2.1 1.8-2.4 Lvl) [facility]2019-10-09 10:47:00 Test Item Value Reference Range Interpretation Comments Phosphorus (test code = Phosphorus) 3.4 2.5-4.5 [facility] HospitalYpfydisEDENWHULUW0295-89-99 10:47:00 Test Item Value Reference Range Interpretation Comments WBC (test code = WBC) 6.2 3.7-10.4 [facility] HospitalMuinnthREWYSVRDOW2551-56-29 10:47:00 Test Item Value Reference Range Interpretation Comments RBC (test code = RBC) 4.17 4.20-5.40 [facility] HospitalNnmoqxpSFSTYYZCLW6968-28-77 10:47:00 Test Item Value Reference Range Interpretation Comments Hgb (test code = Hgb) 12.5 12.0-16.0 [facility] HospitalGxcalcoUVUFPVCXLM7281-42-87 10:47:00 Test Item Value Reference Range Interpretation Comments Hct (test code = Hct) 37.7 36.0-48.0 [facility] HospitalWiptnzaSJIJCFDOYY9523-61-27 10:47:00 Test Item Value Reference Range Interpretation Comments MCV (test code = MCV) 90.4 80.0-98.0 [facility] HospitalOxrhkasZNOLHVDRXR8957-70-07 10:47:00 Test Item Value Reference Range Interpretation Comments MCH (test code = MCH) 30.0 pg 27.0-31.0 [facility] HospitalAxwqjqkXVBGFROUXE4020-28-32 10:47:00 Test Item Value Reference Range Interpretation Comments MCHC (test code = MCHC) 33.2 32.0-36.0 [facility] HospitalXrjelluTZPULCNZAU8868-15-44 10:47:00 Test Item Value Reference Range Interpretation Comments RDW (test code = RDW) 13.5 11.5-14.5 [facility] HospitalKdaeecmRZOZIUXACU5837-08-96 10:47:00 Test Item Value Reference Range Interpretation Comments Platelet (test code = Platelet) 288 133-450 [facility] HospitalIwltguhBTZFLQJCDY1051-37-20 10:47:00 Test Item Value Reference Range Interpretation Comments MPV (test code = MPV) 7.1 7.4-10.4 [facility] HospitalLddbkvfXZNGHOXEHE9406-23-72 10:47:00 Test Item Value Reference Range Interpretation Comments PT (test code = PT) 13.0 s 12.0-14.7 [facility] HospitalQazgbouHTIRQCLZCP7568-21-75 10:47:00 Test Item Value Reference Range Interpretation Comments PTT (test code = PTT) 29.2 s 22.9-35.8 [facility] HospitalThoqcvgXGTPMYQSWO2599-64-60 10:47:00 Test Item Value Reference Range Interpretation Comments INR (test code = INR) 1.00 1 0.85-1.17 [facility] HospitalRruqbkpQYXYKTDDDZ2332-49-66 10:47:00 Test Item Value Reference Range Interpretation Comments Segs (test code = Segs) 60.5 45.0-75.0 [facility] HospitalIypxnxtPVBLDLDDZM8201-64-43 10:47:00 Test Item Value Reference Range Interpretation Comments Lymphocytes (test code = Lymphocytes) 26.2 20.0-40.0 [facility] HospitalCojomueXZOTATBVKB8489-72-10 10:47:00 Test Item Value Reference Range Interpretation Comments Monocytes (test code = Monocytes) 8.7 2.0-12.0 [facility] HospitalMseypwtMNEFJUCZOC8849-90-58 10:47:00 Test Item Value Reference Range Interpretation Comments Eosinophils (test code = 4.0 See_Comment [A utomated message] The Eosinophils) system which ge nerated this result tra nsmitted reference range : <=4.0. The reference r robbie was not used to int erpret this result as normal/abnormal . [facility] HospitalPbaumrcCCSFIHBTVR6388-88-83 10:47:00 Test Item Value Reference Range Interpretation Comments Basophils (test code = 0.6 See_Comment [Aut omated message] The Basophils) system which ge nerated this result tra nsmitted reference range : <=1.0. The reference r robbie was not used to int erpret this result as normal/abnormal . [facility] HospitalDdrwdglHZVYFLTYPQ2858-19-92 10:47:00 Test Item Value Reference Range Interpretation Comments Neutrophils # (test code = Neutrophils 3.7 1.5-8.1 #) [facility] HospitalHfopjgwIXCIHZSZYR5287-95-69 10:47:00 Test Item Value Reference Range Interpretation Comments Lymphocytes # (test code = Lymphocytes 1.6 1.0-5.5 #) [facility] HospitalPtzlkilJMUWEXZZDT4756-23-94 10:47:00 Test Item Value Reference Range Interpretation Comments Monocytes # (test code 0.5 See_Comment [Aut omated message] The = Monocytes #) system which generated this result tra nsmitted reference range : <=0.8. The reference r robbie was not used to int erpret this result as normal/abnormal . [facility] HospitalWyrdmjsLPKPQDNAAY6442-59-64 10:47:00 Test Item Value Reference Range Interpretation Comments Eosinophils # (test code 0.3 See_Comment [A utomated message] The = Eosinophils #) system whic h generated this result tra nsmitted reference range : <=0.5. The reference r robbie was not used to int erpret this result as normal/abnormal . [facility] [id number] 10:47:00 Test Item Value Reference Range Interpretation Comments ABO/Rh (test code = ABO/Rh) O POS [facility] [id number] 10:47:00 Test Item Value Reference Range Interpretation Comments Antibody Scrn (test Positive (06/02/19 5:47 code = Antibody Scrn) AM) [facility] [id number] 10:47:00 Test Item Value Reference Range Interpretation Comments AB Int (test code = Non-specific IgG AB Int) Antibody [facility] SGTTYWC6591-00-61 10:47:00 Test Item Value Reference Range Interpretation Comments PAUL Gel Int (test Positive (06/02/19 5:47 code = PAUL Gel Int) AM) [facility] [id number] 10:47:00 Test Item Value Reference Range Interpretation Comments C3 Int (test code = Negative (06/02/19 5:47 C3 Int) AM) [facility] [id number] 10:47:00 Test Item Value Reference Range Interpretation Comments Eluate Int (test code = Eluate Int) [facility] [id number] 10:47:00 Test Item Value Reference Range Interpretation Comments Glucose Lvl (test code = Glucose Lvl) 102 70-99 [facility] [id number] 10:47:00 Test Item Value Reference Range Interpretation Comments BUN (test code = BUN) 20 7-22 [facility]2019-10-09 10:47:00 Test Item Value Reference Range Interpretation Comments Creatinine Lvl (test code = Creatinine 1.00 0.50-1.40 Lvl) [facility]2019-10-09 10:47:00 Test Item Value Reference Range Interpretation Comments Sodium Lvl (test code = Sodium Lvl) 143 135-145 [facility]2019-10-09 10:47:00 Test Item Value Reference Range Interpretation Comments Potassium Lvl (test code = Potassium 3.7 3.5-5.1 Lvl) [facility]2019-10-09 10:47:00 Test Item Value Reference Range Interpretation Comments Chloride Lvl (test code = Chloride Lvl) 105 95-109 [facility]2019-10-09 10:47:00 Test Item Value Reference Range Interpretation Comments CO2 (test code = CO2) 31 24-32 [facility]2019-10-09 10:47:00 Test Item Value Reference Range Interpretation Comments Calcium Lvl (test code = Calcium Lvl) 10.0 8.5-10.5 [facility]2019-10-09 10:47:00 Test Item Value Reference Range Interpretation Comments eGFR (test code = eGFR) 52 [facility]2019-10-09 10:47:00 Test Item Value Reference Range Interpretation Comments AGAP (test code = AGAP) 10.7 10.0-20.0 [facility]2019-10-09 10:47:00 Test Item Value Reference Range Interpretation Comments Magnesium Lvl (test code = Magnesium 2.1 1.8-2.4 Lvl) [facility]2019-10-09 10:47:00 Test Item Value Reference Range Interpretation Comments Phosphorus (test code = Phosphorus) 3.4 2.5-4.5 [facility]ivAIOJBNIVJJ4204-42-87 10:47:00 Test Item Value Reference Range Interpretation Comments WBC (test code = WBC) 6.2 3.7-10.4 [facility]TntycwkRZTQUSSHDD1305-25-20 10:47:00 Test Item Value Reference Range Interpretation Comments RBC (test code = RBC) 4.17 4.20-5.40 [facility] HospitalTyfbtkoTHIYQBXZQM7255-86-08 10:47:00 Test Item Value Reference Range Interpretation Comments Hgb (test code = Hgb) 12.5 12.0-16.0 [facility] HospitalSarwntpDAALQWEJRW0941-45-48 10:47:00 Test Item Value Reference Range Interpretation Comments Hct (test code = Hct) 37.7 36.0-48.0 [facility] HospitalTkrvrpsMCJKGVXXYK6535-88-62 10:47:00 Test Item Value Reference Range Interpretation Comments MCV (test code = MCV) 90.4 80.0-98.0 [facility] HospitalHvvwonpSFDYRKPBSI8229-21-29 10:47:00 Test Item Value Reference Range Interpretation Comments MCH (test code = MCH) 30.0 pg 27.0-31.0 [facility] HospitalQoglacuGSIDVCDSMZ9397-91-12 10:47:00 Test Item Value Reference Range Interpretation Comments MCHC (test code = MCHC) 33.2 32.0-36.0 [facility] HospitalYmjimxdQQYVMCWFLE7849-94-71 10:47:00 Test Item Value Reference Range Interpretation Comments RDW (test code = RDW) 13.5 11.5-14.5 [facility] HospitalGyxsnrzYUCODYDBID8734-27-27 10:47:00 Test Item Value Reference Range Interpretation Comments Platelet (test code = Platelet) 288 133-450 [facility] HospitalWxhjcmtIBIVFKFRBA9059-58-47 10:47:00 Test Item Value Reference Range Interpretation Comments MPV (test code = MPV) 7.1 7.4-10.4 [facility] HospitalVowfuuzOTJCQTNFIC0894-68-09 10:47:00 Test Item Value Reference Range Interpretation Comments PT (test code = PT) 13.0 s 12.0-14.7 [facility] HospitalKosmpihJXAEDCEYIT4921-71-94 10:47:00 Test Item Value Reference Range Interpretation Comments PTT (test code = PTT) 29.2 s 22.9-35.8 [facility] HospitalWjvsnokXNNKHWFCBQ5151-95-87 10:47:00 Test Item Value Reference Range Interpretation Comments INR (test code = INR) 1.00 1 0.85-1.17 [facility] HospitalVwcfekdRGTCKYRRDM2544-28-59 10:47:00 Test Item Value Reference Range Interpretation Comments Segs (test code = Segs) 60.5 45.0-75.0 [facility] HospitalIvncoehMUATKNPGVY4550-14-57 10:47:00 Test Item Value Reference Range Interpretation Comments Lymphocytes (test code = Lymphocytes) 26.2 20.0-40.0 [facility] HospitalHtxnaelDDOLRLXJPK8885-57-98 10:47:00 Test Item Value Reference Range Interpretation Comments Monocytes (test code = Monocytes) 8.7 2.0-12.0 [facility] HospitalZitnqkzOIJUXKUVJH5905-54-57 10:47:00 Test Item Value Reference Range Interpretation Comments Eosinophils (test code = 4.0 See_Comment [A utomated message] The Eosinophils) system which ge nerated this result tra nsmitted reference range : <=4.0. The reference r robbie was not used to int erpret this result as normal/abnormal . [facility] HospitalVqiyhayMYIGLYYUWB4476-55-63 10:47:00 Test Item Value Reference Range Interpretation Comments Basophils (test code = 0.6 See_Comment [Aut omated message] The Basophils) system which ge nerated this result tra nsmitted reference range : <=1.0. The reference r robbie was not used to int erpret this result as normal/abnormal . [facility] HospitalLbkxlssNCHXGQNJST8124-79-18 10:47:00 Test Item Value Reference Range Interpretation Comments Neutrophils # (test code = Neutrophils 3.7 1.5-8.1 #) [facility] HospitalHfvvsrdBBGIPWILUN1283-72-61 10:47:00 Test Item Value Reference Range Interpretation Comments Lymphocytes # (test code = Lymphocytes 1.6 1.0-5.5 #) [facility] HospitalVadmhxqJYOIXGMXYI7738-34-73 10:47:00 Test Item Value Reference Range Interpretation Comments Monocytes # (test code 0.5 See_Comment [Aut omated message] The = Monocytes #) system which generated this result tra nsmitted reference range : <=0.8. The reference r robbie was not used to int erpret this result as normal/abnormal . [facility] HospitalRmojdbcBTMSOHTQJC4754-48-05 10:47:00 Test Item Value Reference Range Interpretation Comments Eosinophils # (test code 0.3 See_Comment [A utomated message] The = Eosinophils #) system whic h generated this result tra nsmitted reference range : <=0.5. The reference r robbie was not used to int erpret this result as normal/abnormal . [facility] PFCBIPL5485-68-19 10:47:00 Test Item Value Reference Range Interpretation Comments ABO/Rh (test code = ABO/Rh) O POS [facility] [id number] 10:47:00 Test Item Value Reference Range Interpretation Comments Antibody Scrn (test Positive (06/02/19 5:47 code = Antibody Scrn) AM) [facility] [id number] 10:47:00 Test Item Value Reference Range Interpretation Comments AB Int (test code = Non-specific IgG AB Int) Antibody [facility] [id number] 10:47:00 Test Item Value Reference Range Interpretation Comments PAUL Gel Int (test Positive (06/02/19 5:47 code = PAUL Gel Int) AM) [facility] [id number] 10:47:00 Test Item Value Reference Range Interpretation Comments C3 Int (test code = Negative (06/02/19 5:47 C3 Int) AM) [facility] YANBXIZ5664-85-05 10:47:00 Test Item Value Reference Range Interpretation Comments Eluate Int (test code = Eluate Int) See Note [facility]2019-10-09 10:47:00 Test Item Value Reference Range Interpretation Comments Glucose Lvl (test code = Glucose Lvl) 102 70-99 [facility] [id number] 10:47:00 Test Item Value Reference Range Interpretation Comments BUN (test code = BUN) 20 7-22 [facility] [id number] 10:47:00 Test Item Value Reference Range Interpretation Comments Creatinine Lvl (test code = Creatinine 1.00 0.50-1.40 Lvl) [facility] [id number] 10:47:00 Test Item Value Reference Range Interpretation Comments Sodium Lvl (test code = Sodium Lvl) 143 135-145 [facility] [id number] 10:47:00 Test Item Value Reference Range Interpretation Comments Potassium Lvl (test code = Potassium 3.7 3.5-5.1 Lvl) [facility] [id number] 10:47:00 Test Item Value Reference Range Interpretation Comments Chloride Lvl (test code = Chloride Lvl) 105 95-109 [facility] [id number] 10:47:00 Test Item Value Reference Range Interpretation Comments CO2 (test code = CO2) 31 24-32 [facility] PKYTJ9543-59-64 10:47:00 Test Item Value Reference Range Interpretation Comments Calcium Lvl (test code = Calcium Lvl) 10.0 8.5-10.5 [facility]2019-10-09 10:47:00 Test Item Value Reference Range Interpretation Comments eGFR (test code = eGFR) 52 [facility]2019-10-09 10:47:00 Test Item Value Reference Range Interpretation Comments AGAP (test code = AGAP) 10.7 10.0-20.0 [facility]2019-10-09 10:47:00 Test Item Value Reference Range Interpretation Comments Magnesium Lvl (test code = Magnesium 2.1 1.8-2.4 Lvl) [facility]2019-10-09 10:47:00 Test Item Value Reference Range Interpretation Comments Phosphorus (test code = Phosphorus) 3.4 2.5-4.5 [facility] HospitalTwegqtqMDUDCBBRRF7447-77-91 10:47:00 Test Item Value Reference Range Interpretation Comments WBC (test code = WBC) 6.2 3.7-10.4 [facility] HospitalSghfjsvQJHXJFNBOM1742-82-00 10:47:00 Test Item Value Reference Range Interpretation Comments RBC (test code = RBC) 4.17 4.20-5.40 [facility] HospitalAkdvxqwCFIHVKFNXL8525-05-71 10:47:00 Test Item Value Reference Range Interpretation Comments Hgb (test code = Hgb) 12.5 12.0-16.0 [facility] HospitalJjpjhqjIITFFDUEIH5239-88-89 10:47:00 Test Item Value Reference Range Interpretation Comments Hct (test code = Hct) 37.7 36.0-48.0 [facility] HospitalErfogagCHIBJERCGZ6677-87-90 10:47:00 Test Item Value Reference Range Interpretation Comments MCV (test code = MCV) 90.4 80.0-98.0 [facility] HospitalVlocsjfGVASZZBAMM3158-20-23 10:47:00 Test Item Value Reference Range Interpretation Comments MCH (test code = MCH) 30.0 pg 27.0-31.0 [facility] HospitalOgibqipVMSNKLIODZ8247-40-31 10:47:00 Test Item Value Reference Range Interpretation Comments MCHC (test code = MCHC) 33.2 32.0-36.0 [facility] HospitalLekyzvoFUYZDRAGYN5181-76-44 10:47:00 Test Item Value Reference Range Interpretation Comments RDW (test code = RDW) 13.5 11.5-14.5 [facility] HospitalEtqteogNWBUYKQUWC1364-47-59 10:47:00 Test Item Value Reference Range Interpretation Comments Platelet (test code = Platelet) 288 133-450 [facility] HospitalQxclyvlMUHQAAQCUH9149-20-78 10:47:00 Test Item Value Reference Range Interpretation Comments MPV (test code = MPV) 7.1 7.4-10.4 [facility] HospitalUabwgmeGWSEITACRB8784-11-64 10:47:00 Test Item Value Reference Range Interpretation Comments PT (test code = PT) 13.0 s 12.0-14.7 [facility] HospitalBbzywzvPKRFUKRMDA4982-90-49 10:47:00 Test Item Value Reference Range Interpretation Comments PTT (test code = PTT) 29.2 s 22.9-35.8 [facility] HospitalJjluokvTAODVTGREB5283-05-32 10:47:00 Test Item Value Reference Range Interpretation Comments INR (test code = INR) 1.00 1 0.85-1.17 [facility] HospitalIvcnfmxUIBTKBSQIE6266-29-08 10:47:00 Test Item Value Reference Range Interpretation Comments Segs (test code = Segs) 60.5 45.0-75.0 [facility] HospitalAfnmrgzUINRODKEHF5867-07-45 10:47:00 Test Item Value Reference Range Interpretation Comments Lymphocytes (test code = Lymphocytes) 26.2 20.0-40.0 [facility] HospitalJtjpadqPSWLCBEVUT5987-05-06 10:47:00 Test Item Value Reference Range Interpretation Comments Monocytes (test code = Monocytes) 8.7 2.0-12.0 [facility] HospitalHrfktrdJAHEOFPFIT0817-08-96 10:47:00 Test Item Value Reference Range Interpretation Comments Eosinophils (test code = 4.0 See_Comment [A utomated message] The Eosinophils) system which ge nerated this result tra nsmitted reference range : <=4.0. The reference r robbie was not used to int erpret this result as normal/abnormal . [facility] [id number] 11:37:00 Test Item Value Reference Range Interpretation Comments eGFR (test code = eGFR) 48 [facility] [id number] 11:37:00 Test Item Value Reference Range Interpretation Comments Creatinine Lvl (test code = Creatinine 1.08 0.50-1.40 Lvl) [facility] HospitalEivblzaNOURQGPNVR1761-97-73 11:37:00 Test Item Value Reference Range Interpretation Comments Hgb (test code = Hgb) 12.6 12.0-16.0 [facility]2017-03-07 11:37:00 Test Item Value Reference Range Interpretation Comments eGFR (test code = eGFR) 48 [facility]2017-03-07 11:37:00 Test Item Value Reference Range Interpretation Comments Creatinine Lvl (test code = Creatinine 1.08 0.50-1.40 Lvl) [facility] HospitalRcfcxxtAPHSOAUQWL5077-70-01 11:37:00 Test Item Value Reference Range Interpretation Comments Hgb (test code = Hgb) 12.6 12.0-16.0 [facility]2017-03-07 11:37:00 Test Item Value Reference Range Interpretation Comments eGFR (test code = eGFR) 48 [facility]2017-03-07 11:37:00 Test Item Value Reference Range Interpretation Comments Creatinine Lvl (test code = Creatinine 1.08 0.50-1.40 Lvl) [facility] HospitalFxnqvyuSFZTUXHGTV1163-22-79 11:37:00 Test Item Value Reference Range Interpretation Comments Hgb (test code = Hgb) 12.6 12.0-16.0 [facility]2017-03-07 11:37:00 Test Item Value Reference Range Interpretation Comments eGFR (test code = eGFR) 48 [facility]2017-03-07 11:37:00 Test Item Value Reference Range Interpretation Comments Creatinine Lvl (test code = Creatinine 1.08 0.50-1.40 Lvl) [facility] HospitalQceepssLDEDHSBOIB4409-25-35 11:37:00 Test Item Value Reference Range Interpretation Comments Hgb (test code = Hgb) 12.6 12.0-16.0 [facility]2017-03-07 11:37:00 Test Item Value Reference Range Interpretation Comments eGFR (test code = eGFR) 48 [facility]2017-03-07 11:37:00 Test Item Value Reference Range Interpretation Comments Creatinine Lvl (test code = Creatinine 1.08 0.50-1.40 Lvl) [facility] HospitalOoafhjkIBNTUJOPFB6626-13-55 11:37:00 Test Item Value Reference Range Interpretation Comments Hgb (test code = Hgb) 12.6 12.0-16.0 [facility]2017-03-07 11:37:00 Test Item Value Reference Range Interpretation Comments eGFR (test code = eGFR) 48 [facility]2017-03-07 11:37:00 Test Item Value Reference Range Interpretation Comments Creatinine Lvl (test code = Creatinine 1.08 0.50-1.40 Lvl) [facility] HospitalFpqoplbYRMGUXSMLC5752-77-12 11:37:00 Test Item Value Reference Range Interpretation Comments Hgb (test code = Hgb) 12.6 12.0-16.0 [facility]2017-03-07 11:37:00 Test Item Value Reference Range Interpretation Comments eGFR (test code = eGFR) 48 [facility]2017-03-07 11:37:00 Test Item Value Reference Range Interpretation Comments Creatinine Lvl (test code = Creatinine 1.08 0.50-1.40 Lvl) [facility] HospitalChdfbgkRSMYDMWLYC0723-67-96 11:37:00 Test Item Value Reference Range Interpretation Comments Hgb (test code = Hgb) 12.6 12.0-16.0 [facility]2017-03-07 11:37:00 Test Item Value Reference Range Interpretation Comments eGFR (test code = eGFR) 48 [facility]2017-03-07 11:37:00 Test Item Value Reference Range Interpretation Comments Creatinine Lvl (test code = Creatinine 1.08 0.50-1.40 Lvl) [facility] HospitalLrtbhejYMSVNCCJAW4116-58-93 11:37:00 Test Item Value Reference Range Interpretation Comments Hgb (test code = Hgb) 12.6 12.0-16.0 [facility]2017-03-07 11:37:00 Test Item Value Reference Range Interpretation Comments eGFR (test code = eGFR) 48 [facility]2017-03-07 11:37:00 Test Item Value Reference Range Interpretation Comments Creatinine Lvl (test code = Creatinine 1.08 0.50-1.40 Lvl) [facility] HospitalAishjmcWFUGAEKASU4268-22-43 11:37:00 Test Item Value Reference Range Interpretation Comments Hgb (test code = Hgb) 12.6 12.0-16.0 [facility]2017-03-07 11:37:00 Test Item Value Reference Range Interpretation Comments eGFR (test code = eGFR) 48 [facility]2017-03-07 11:37:00 Test Item Value Reference Range Interpretation Comments Creatinine Lvl (test code = Creatinine 1.08 0.50-1.40 Lvl) [facility] HospitalMvhpvmfTUCLTPVDHS2862-69-80 11:37:00 Test Item Value Reference Range Interpretation Comments Hgb (test code = Hgb) 12.6 12.0-16.0 [facility]2017-03-07 11:37:00 Test Item Value Reference Range Interpretation Comments eGFR (test code = eGFR) 48 [facility]2017-03-07 11:37:00 Test Item Value Reference Range Interpretation Comments Creatinine Lvl (test code = Creatinine 1.08 0.50-1.40 Lvl) [facility] HospitalEpclpvyRUNIXASOML1918-09-27 11:37:00 Test Item Value Reference Range Interpretation Comments Hgb (test code = Hgb) 12.6 12.0-16.0 [facility]2017-03-07 11:37:00 Test Item Value Reference Range Interpretation Comments eGFR (test code = eGFR) 48 [facility]2017-03-07 11:37:00 Test Item Value Reference Range Interpretation Comments Creatinine Lvl (test code = Creatinine 1.08 0.50-1.40 Lvl) [facility] HospitalYdczzkiKHTYXYUBRV2353-08-59 11:37:00 Test Item Value Reference Range Interpretation Comments Hgb (test code = Hgb) 12.6 12.0-16.0 [facility]2017-03-07 11:37:00 Test Item Value Reference Range Interpretation Comments eGFR (test code = eGFR) 48 [facility]2017-03-07 11:37:00 Test Item Value Reference Range Interpretation Comments Creatinine Lvl (test code = Creatinine 1.08 0.50-1.40 Lvl) [facility] HospitalTrucghvIKCZRVGIUW1282-80-52 11:37:00 Test Item Value Reference Range Interpretation Comments Hgb (test code = Hgb) 12.6 12.0-16.0 [facility] HospitalXjfzemqZIGEDUCUIY4280-93-45 00:09:00 Test Item Value Reference Range Interpretation Comments POC Activated Clotting Time (test code 198 s = POC Activated Clotting Time) [facility] HospitalExbqkuqDCQLJCADDM4283-62-23 00:09:00 Test Item Value Reference Range Interpretation Comments POC Activated Clotting Time (test code 198 s = POC Activated Clotting Time) [facility] HospitalZjtbipkOOOAWNWHOD2964-45-77 00:09:00 Test Item Value Reference Range Interpretation Comments POC Activated Clotting Time (test code 198 s = POC Activated Clotting Time) [facility] HospitalUhkqeyhTJTLETEBWP3281-92-61 00:09:00 Test Item Value Reference Range Interpretation Comments POC Activated Clotting Time (test code 198 s = POC Activated Clotting Time) [facility] HospitalIwkquxdCSYRCKZCTP1448-67-59 00:09:00 Test Item Value Reference Range Interpretation Comments POC Activated Clotting Time (test code 198 s = POC Activated Clotting Time) [facility] HospitalWryjkneYDEMANINER9209-48-40 00:09:00 Test Item Value Reference Range Interpretation Comments POC Activated Clotting Time (test code 198 s = POC Activated Clotting Time) [facility] HospitalGtjevdjYQHZVAOMPZ9522-04-90 00:09:00 Test Item Value Reference Range Interpretation Comments POC Activated Clotting Time (test code 198 s = POC Activated Clotting Time) [facility] HospitalMrvpwwmQNGNEMBPTM4265-19-85 00:09:00 Test Item Value Reference Range Interpretation Comments POC Activated Clotting Time (test code 198 s = POC Activated Clotting Time) [facility] HospitalYqdtnshRUTMIYUDOT4562-69-82 00:09:00 Test Item Value Reference Range Interpretation Comments POC Activated Clotting Time (test code 198 s = POC Activated Clotting Time) [facility] HospitalQtimphaBOQEDWEQUZ0410-88-39 00:09:00 Test Item Value Reference Range Interpretation Comments POC Activated Clotting Time (test code 198 s = POC Activated Clotting Time) [facility] HospitalGgtjevqZJDWFLPUSG9079-62-69 00:09:00 Test Item Value Reference Range Interpretation Comments POC Activated Clotting Time (test code 198 s = POC Activated Clotting Time) [facility] HospitalYwurghlBHJWSLXQQU4983-22-02 00:09:00 Test Item Value Reference Range Interpretation Comments POC Activated Clotting Time (test code 198 s = POC Activated Clotting Time) [facility] HospitalTgrbfqkXFWOMGJWWN1581-15-63 00:09:00 Test Item Value Reference Range Interpretation Comments POC Activated Clotting Time (test code 198 s = POC Activated Clotting Time) [facility] HospitalGsxerldPNRCUUGDBA9344-88-30 22:02:00 Test Item Value Reference Range Interpretation Comments POC Activated Clotting Time (test code 268 s = POC Activated Clotting Time) [facility] HospitalBmkdmyhPDYGIPBBBF5635-09-84 22:02:00 Test Item Value Reference Range Interpretation Comments POC Activated Clotting Time (test code 268 s = POC Activated Clotting Time) [facility] HospitalYacrzwtBEYTZBKWGS6288-13-94 22:02:00 Test Item Value Reference Range Interpretation Comments POC Activated Clotting Time (test code 268 s = POC Activated Clotting Time) [facility] HospitalPcssddwKPLPCBPGCN4603-36-69 22:02:00 Test Item Value Reference Range Interpretation Comments POC Activated Clotting Time (test code 268 s = POC Activated Clotting Time) [facility] HospitalJfmspahBAPISGWWEY4697-87-23 22:02:00 Test Item Value Reference Range Interpretation Comments POC Activated Clotting Time (test code 268 s = POC Activated Clotting Time) [facility] HospitalIaoddxqFMKEVAIVSV7156-27-72 22:02:00 Test Item Value Reference Range Interpretation Comments POC Activated Clotting Time (test code 268 s = POC Activated Clotting Time) [facility] HospitalDyulmvrKHFQRQQXYL8067-77-29 22:02:00 Test Item Value Reference Range Interpretation Comments POC Activated Clotting Time (test code 268 s = POC Activated Clotting Time) [facility] HospitalSpxnkvuGPTKWAYIEM0106-52-30 22:02:00 Test Item Value Reference Range Interpretation Comments POC Activated Clotting Time (test code 268 s = POC Activated Clotting Time) [facility] HospitalLskkvgbQQMDLQAHQX4278-63-09 22:02:00 Test Item Value Reference Range Interpretation Comments POC Activated Clotting Time (test code 268 s = POC Activated Clotting Time) [facility]qzloucQETZJTEWHT9185-[facility] 22:02:00 Test Item Value Reference Range Interpretation Comments POC Activated Clotting Time (test code 268 s = POC Activated Clotting Time) [facility] HospitalTabwxvcALFFRABRGD1692-82-14 22:02:00 Test Item Value Reference Range Interpretation Comments POC Activated Clotting Time (test code 268 s = POC Activated Clotting Time) [facility] HospitalCaeikuySYLPMCQSVG9900-31-33 22:02:00 Test Item Value Reference Range Interpretation Comments POC Activated Clotting Time (test code 268 s = POC Activated Clotting Time) [facility] HospitalMjzpbqrPECBVWWFOQ5705-93-17 22:02:00 Test Item Value Reference Range Interpretation Comments POC Activated Clotting Time (test code 268 s = POC Activated Clotting Time) [facility] WQGNRRY9232-13-17 18:25:00 Test Item Value Reference Range Interpretation Comments ABO/Rh (test code = ABO/Rh) O POS [facility] EJPOOQN0303-06-36 18:25:00 Test Item Value Reference Range Interpretation Comments Antibody Scrn (test Negative (3/6/17 12:25 code = Antibody Scrn) PM) [facility] 18:25:00 Test Item Value Reference Range Interpretation Comments Magnesium Lvl (test code = Magnesium 1.9 1.8-2.4 Lvl) [facility]YvltxcnQLDLDMTPDKDW6934-35-33 18:25:00 Test Item Value Reference Range Interpretation Comments Potassium Lvl (test code = Potassium 4.4 3.5-5.1 Lvl) [facility] CenterQdghvjdNSCJECJZTGHR6909-44-77 18:25:00 Test Item Value Reference Range Interpretation Comments Calcium Lvl (test code = Calcium Lvl) 9.4 8.5-10.5 [facility] CenterEpqjhscWJYXDNSXMTUW7467-41-34 18:25:00 Test Item Value Reference Range Interpretation Comments CO2 (test code = CO2) 31 24-32 [facility] CenterMxirpxuRRKLQOKEEZOF0699-17-40 18:25:00 Test Item Value Reference Range Interpretation Comments Chloride Lvl (test code = Chloride Lvl) 103 95-109 [facility] CenterCpnkotpCSTMQCEYFEXJ8220-33-26 18:25:00 Test Item Value Reference Range Interpretation Comments eGFR (test code = eGFR) 55 [facility] CenterSpxrlqtWTFGGOVIDLDH3196-00-18 18:25:00 Test Item Value Reference Range Interpretation Comments Sodium Lvl (test code = Sodium Lvl) 141 135-145 [facility] CenterXdqgdqsFKCDZMPGNORC7462-05-79 18:25:00 Test Item Value Reference Range Interpretation Comments Creatinine Lvl (test code = Creatinine 0.97 0.50-1.40 Lvl) [facility] CenterEtrecuvEDCRTHIKDVZQ3555-00-86 18:25:00 Test Item Value Reference Range Interpretation Comments BUN (test code = BUN) 24 7-22 [facility] CenterIbaaptsMIJUYXIKSWIC7789-55-23 18:25:00 Test Item Value Reference Range Interpretation Comments Glucose Lvl (test code = Glucose Lvl) 108 70-99 [facility] CenterYggimmhUERHDTVXXGWH8558-69-66 18:25:00 Test Item Value Reference Range Interpretation Comments AGAP (test code = AGAP) 11.4 10.0-20.0 [facility]CgrqvcxZUZTJYJDMH5674-11-29 18:25:00 Test Item Value Reference Range Interpretation Comments INR (test code = INR) 1.10 0.85-1.17 [facility] HospitalOypfgurWUHJUKEYQM2854-44-99 18:25:00 Test Item Value Reference Range Interpretation Comments PT (test code = PT) 14.4 s 12.0-14.7 [facility] HospitalIamcxjeWHCLDYUSVC2500-36-33 18:25:00 Test Item Value Reference Range Interpretation Comments PTT (test code = PTT) 30.3 s 22.9-35.8 [facility] HospitalBtskaamNQYFGTHSSV6813-88-76 18:25:00 Test Item Value Reference Range Interpretation Comments Hgb (test code = Hgb) 13.1 12.0-16.0 [facility] HospitalXvvqiinOPNDPVDCZQ7921-49-37 18:25:00 Test Item Value Reference Range Interpretation Comments RBC (test code = RBC) 4.51 4.20-5.40 [facility] HospitalYfdjqsvPJIPIJLBMI5385-93-14 18:25:00 Test Item Value Reference Range Interpretation Comments WBC (test code = WBC) 5.4 3.7-10.4 [facility] HospitalLsdfwjwGTRJDWHUNF6476-62-33 18:25:00 Test Item Value Reference Range Interpretation Comments MPV (test code = MPV) 7.2 7.4-10.4 [facility] HospitalHeqkwlcNUPGGEUTEE6710-89-35 18:25:00 Test Item Value Reference Range Interpretation Comments MCHC (test code = MCHC) 33.0 32.0-36.0 [facility] HospitalVdetayuVQZXGUOXLH5056-34-70 18:25:00 Test Item Value Reference Range Interpretation Comments RDW (test code = RDW) 14.0 11.5-14.5 [facility] HospitalIgrfnnkMLNHLRGUFL7709-91-97 18:25:00 Test Item Value Reference Range Interpretation Comments Platelet (test code = Platelet) 278 133-450 [facility] HospitalKclgojlGGHRFBOAEZ4305-44-05 18:25:00 Test Item Value Reference Range Interpretation Comments MCH (test code = MCH) 29.0 pg 27.0-31.0 [facility] HospitalDfizxcqGCDOWANMFC8411-75-42 18:25:00 Test Item Value Reference Range Interpretation Comments MCV (test code = MCV) 87.9 80.0-98.0 [facility] HospitalGuzozdlRVEMYVKKBI7380-53-50 18:25:00 Test Item Value Reference Range Interpretation Comments Hct (test code = Hct) 39.7 36.0-48.0 [facility] HospitalCvlaegsMFMTBDFPUG5323-69-01 18:25:00 Test Item Value Reference Range Interpretation Comments Eosinophils (test code = 2.2 See_Comment [A utomated message] The Eosinophils) system which ge nerated this result tra nsmitted reference range : <=4.0. The reference r robbie was not used to int erpret this result as normal/abnormal . [facility] HospitalWkggwfqAPPCRRGLHI8712-11-88 18:25:00 Test Item Value Reference Range Interpretation Comments Segs-Bands # (test code = Segs-Bands #) 2.8 1.5-8.1 [facility] HospitalExveirvVKMFHDDQJC7375-70-61 18:25:00 Test Item Value Reference Range Interpretation Comments Basophils (test code = 0.9 See_Comment [Aut omated message] The Basophils) system which ge nerated this result tra nsmitted reference range : <=1.0. The reference r robbie was not used to int erpret this result as normal/abnormal . [facility] HospitalEybwmbqROXVEHBXRN2890-97-45 18:25:00 Test Item Value Reference Range Interpretation Comments Lymphocytes # (test code = Lymphocytes 2.1 1.0-5.5 #) [facility] HospitalFvdbswcRTHMFAXDJV9128-87-49 18:25:00 Test Item Value Reference Range Interpretation Comments Segs (test code = Segs) 52.3 45.0-75.0 [facility] HospitalRmwuwdwVCHKFVFLMJ3425-23-90 18:25:00 Test Item Value Reference Range Interpretation Comments Lymphocytes (test code = Lymphocytes) 38.0 20.0-40.0 [facility] HospitalPzssjqyKRXSHEAYZV3363-94-22 18:25:00 Test Item Value Reference Range Interpretation Comments Monocytes (test code = Monocytes) 6.6 2.0-12.0 [facility] HospitalUayzrdeCHQWUSGFOW1620-59-88 18:25:00 Test Item Value Reference Range Interpretation Comments Basophils # (test code 0.1 See_Comment [Aut omated message] The = Basophils #) system which generated this result tra nsmitted reference range : <=0.2. The reference r robbie was not used to int erpret this result as normal/abnormal . [facility] HospitalXllfbkyINZRRUNWBJ8644-26-11 18:25:00 Test Item Value Reference Range Interpretation Comments Eosinophils # (test code 0.1 See_Comment [A utomated message] The = Eosinophils #) system whic h generated this result tra nsmitted reference range : <=0.5. The reference r robbie was not used to int erpret this result as normal/abnormal . [facility]RhytueaFQMFBCCKHH6504-25-17 18:25:00 Test Item Value Reference Range Interpretation Comments Monocytes # (test code 0.4 See_Comment [Aut omated message] The = Monocytes #) system which generated this result tra nsmitted reference range : <=0.8. The reference r robbie was not used to int erpret this result as normal/abnormal . [facility] CMOLVCT4613-29-80 18:25:00 Test Item Value Reference Range Interpretation Comments ABO/Rh (test code = ABO/Rh) O POS [facility] HospitalBioDigitalPlaysino [facility] VWCWCGX3806-57-72 18:25:00 Test Item Value Reference Range Interpretation Comments Antibody Scrn (test Negative (10/28/16 12:25 code = Antibody Scrn) PM) [facility] HospitalBioDigitalCHEM GMSTW2949-61-36 18:25:00 Test Item Value Reference Range Interpretation Comments Magnesium Lvl (test code = Magnesium 1.9 1.8-2.4 Lvl) [facility] CenterQuvnrgjXBEPLOKLNBEF3011-82-06 18:25:00 Test Item Value Reference Range Interpretation Comments Potassium Lvl (test code = Potassium 4.4 3.5-5.1 Lvl) [facility] CenterYzkjzudWJRWDMSMNOGC4669-31-26 18:25:00 Test Item Value Reference Range Interpretation Comments Calcium Lvl (test code = Calcium Lvl) 9.4 8.5-10.5 [facility] CenterFzhwomoWNSMHWXZJQRA9492-04-81 18:25:00 Test Item Value Reference Range Interpretation Comments CO2 (test code = CO2) 31 24-32 [facility] CenterXslsmmrDHRQKIUCNRIZ7487-89-30 18:25:00 Test Item Value Reference Range Interpretation Comments Chloride Lvl (test code = Chloride Lvl) 103 95-109 [facility] CenterSeqbzlaKNRVMKMSTMTT1613-34-57 18:25:00 Test Item Value Reference Range Interpretation Comments eGFR (test code = eGFR) 55 [facility] CenterOpgwglwIPIUKIVTJVAJ6250-06-71 18:25:00 Test Item Value Reference Range Interpretation Comments Sodium Lvl (test code = Sodium Lvl) 141 135-145 [facility] CenterUyvastbIXITWVZWFBRE4430-89-20 18:25:00 Test Item Value Reference Range Interpretation Comments Creatinine Lvl (test code = Creatinine 0.97 0.50-1.40 Lvl) [facility] CenterCfrwsdyKZMNRJNFYEWG6396-61-08 18:25:00 Test Item Value Reference Range Interpretation Comments BUN (test code = BUN) 24 7-22 [facility] CenterQxhkvayQNKFZQEJAXUS9299-35-00 18:25:00 Test Item Value Reference Range Interpretation Comments Glucose Lvl (test code = Glucose Lvl) 108 70-99 [facility] CenterOxuiwpzLAIMIEUFHFGS7109-73-52 18:25:00 Test Item Value Reference Range Interpretation Comments AGAP (test code = AGAP) 11.4 10.0-20.0 [facility] HospitalLobkbflAOQAOBQBYV9664-28-21 18:25:00 Test Item Value Reference Range Interpretation Comments INR (test code = INR) 1.10 0.85-1.17 [facility] HospitalVtdwexcZBLMHDWUKQ6773-22-22 18:25:00 Test Item Value Reference Range Interpretation Comments PT (test code = PT) 14.4 s 12.0-14.7 [facility] HospitalZkattsuKNDYWODYQM6620-00-63 18:25:00 Test Item Value Reference Range Interpretation Comments PTT (test code = PTT) 30.3 s 22.9-35.8 [facility] HospitalYhpwaftOQXISIJBPO2789-17-52 18:25:00 Test Item Value Reference Range Interpretation Comments Hgb (test code = Hgb) 13.1 12.0-16.0 [facility] HospitalZfcdhrhDOYUPYKPLQ0362-19-34 18:25:00 Test Item Value Reference Range Interpretation Comments RBC (test code = RBC) 4.51 4.20-5.40 [facility] HospitalKjbelbyDETHKELAUC0391-93-43 18:25:00 Test Item Value Reference Range Interpretation Comments WBC (test code = WBC) 5.4 3.7-10.4 [facility] HospitalQnlqakeFJJGBRPJDB6786-76-08 18:25:00 Test Item Value Reference Range Interpretation Comments MPV (test code = MPV) 7.2 7.4-10.4 [facility] HospitalRpuuagbSIGSYAXWDS8150-40-48 18:25:00 Test Item Value Reference Range Interpretation Comments MCHC (test code = MCHC) 33.0 32.0-36.0 [facility] HospitalAbsfjivDDQYRTDMJW1645-04-98 18:25:00 Test Item Value Reference Range Interpretation Comments RDW (test code = RDW) 14.0 11.5-14.5 [facility] HospitalAvvtnveDWKJQIVBOD0783-98-82 18:25:00 Test Item Value Reference Range Interpretation Comments Platelet (test code = Platelet) 278 133-450 [facility] HospitalYaqkcivLEWTBAOMXK2775-53-74 18:25:00 Test Item Value Reference Range Interpretation Comments MCH (test code = MCH) 29.0 pg 27.0-31.0 [facility] HospitalKzoikqaTJBMZLQOCV0973-60-27 18:25:00 Test Item Value Reference Range Interpretation Comments MCV (test code = MCV) 87.9 80.0-98.0 [facility] HospitalNjsphqjLQNKHCQVSB2365-98-66 18:25:00 Test Item Value Reference Range Interpretation Comments Hct (test code = Hct) 39.7 36.0-48.0 [facility] HospitalMwqboknZAPBFHVXRT3742-25-51 18:25:00 Test Item Value Reference Range Interpretation Comments Eosinophils (test code = 2.2 See_Comment [A utomated message] The Eosinophils) system which ge nerated this result tra nsmitted reference range : <=4.0. The reference r robbie was not used to int erpret this result as normal/abnormal . [facility] HospitalPsodzwjIQWSTLMBAN1466-85-61 18:25:00 Test Item Value Reference Range Interpretation Comments Segs-Bands # (test code = Segs-Bands #) 2.8 1.5-8.1 [facility] HospitalWlftaegXKTBAYXCSN7731-27-68 18:25:00 Test Item Value Reference Range Interpretation Comments Basophils (test code = 0.9 See_Comment [Aut omated message] The Basophils) system which ge nerated this result tra nsmitted reference range : <=1.0. The reference r robbie was not used to int erpret this result as normal/abnormal . [facility] HospitalFnyefaiGODHNCYHVG7149-74-49 18:25:00 Test Item Value Reference Range Interpretation Comments Lymphocytes # (test code = Lymphocytes 2.1 1.0-5.5 #) [facility] HospitalIemofqyWVJRIAWKKM4168-12-21 18:25:00 Test Item Value Reference Range Interpretation Comments Segs (test code = Segs) 52.3 45.0-75.0 [facility] HospitalRgrcqebBEUYZLNGAC1785-80-63 18:25:00 Test Item Value Reference Range Interpretation Comments Lymphocytes (test code = Lymphocytes) 38.0 20.0-40.0 [facility] HospitalCclbihtWBCNJZXKKJ9200-72-44 18:25:00 Test Item Value Reference Range Interpretation Comments Monocytes (test code = Monocytes) 6.6 2.0-12.0 [facility] ArlingtonMmkyolgYJMQSLVQKI9938-91-68 18:25:00 Test Item Value Reference Range Interpretation Comments Basophils # (test code 0.1 See_Comment [Aut omated message] The = Basophils #) system which generated this result tra nsmitted reference range : <=0.2. The reference r robbie was not used to int erpret this result as normal/abnormal . [facility] HospitalBrbztfuSZINUASAFU1017-51-38 18:25:00 Test Item Value Reference Range Interpretation Comments Eosinophils # (test code 0.1 See_Comment [A utomated message] The = Eosinophils #) system whic h generated this result tra nsmitted reference range : <=0.5. The reference r robbie was not used to int erpret this result as normal/abnormal . [facility] HospitalFcghgkqLIJNIUCQTC4465-67-59 18:25:00 Test Item Value Reference Range Interpretation Comments Monocytes # (test code 0.4 See_Comment [Aut omated message] The = Monocytes #) system which generated this result tra nsmitted reference range : <=0.8. The reference r robbie was not used to int erpret this result as normal/abnormal . [facility]stro XZDKCSP8385-94-45 18:25:00 Test Item Value Reference Range Interpretation Comments ABO/Rh (test code = ABO/Rh) O POS [facility] EKCWEWW2453-93-09 18:25:00 Test Item Value Reference Range Interpretation Comments Antibody Scrn (test Negative (10/28/16 12:25 code = Antibody Scrn) PM) [facility]BioDigitalCHEM VFOXZ9657-76-14 18:25:00 Test Item Value Reference Range Interpretation Comments Magnesium Lvl (test code = Magnesium 1.9 1.8-2.4 Lvl) [facility] CenterVklrxdpNLSEXFPAVKQE7865-57-66 18:25:00 Test Item Value Reference Range Interpretation Comments Potassium Lvl (test code = Potassium 4.4 3.5-5.1 Lvl) [facility] CenterIxrhrmdSNIWVJOSBTAK4718-99-24 18:25:00 Test Item Value Reference Range Interpretation Comments Calcium Lvl (test code = Calcium Lvl) 9.4 8.5-10.5 [facility] CenterJpvagpkOXEYEPBHMBON8840-82-95 18:25:00 Test Item Value Reference Range Interpretation Comments CO2 (test code = CO2) 31 24-32 [facility] CenterEkoglypZEYPVYYXZZIA8840-29-09 18:25:00 Test Item Value Reference Range Interpretation Comments Chloride Lvl (test code = Chloride Lvl) 103 95-109 [facility] CenterMajhyfrIQYURMAKFFQI6270-99-89 18:25:00 Test Item Value Reference Range Interpretation Comments eGFR (test code = eGFR) 55 [facility] CenterNqjwhmoEXAVKEFGGJDS2165-64-05 18:25:00 Test Item Value Reference Range Interpretation Comments Sodium Lvl (test code = Sodium Lvl) 141 135-145 [facility] CenterVflxuaqZQGANKXPPEZV3815-93-22 18:25:00 Test Item Value Reference Range Interpretation Comments Creatinine Lvl (test code = Creatinine 0.97 0.50-1.40 Lvl) [facility] CenterGlwdnnkXSYIGVXALPIS4141-20-81 18:25:00 Test Item Value Reference Range Interpretation Comments BUN (test code = BUN) 24 7-22 [facility] CenterZaonpzoYFJEJKYHTRGW8054-58-66 18:25:00 Test Item Value Reference Range Interpretation Comments Glucose Lvl (test code = Glucose Lvl) 108 70-99 [facility] CenterYmnwajcFORHMHHNAGVS2413-67-46 18:25:00 Test Item Value Reference Range Interpretation Comments AGAP (test code = AGAP) 11.4 10.0-20.0 [facility] HospitalKwnyicwZLCENBECGU1735-59-27 18:25:00 Test Item Value Reference Range Interpretation Comments INR (test code = INR) 1.10 0.85-1.17 [facility] HospitalBairgfuCZYODAJHRW3331-66-95 18:25:00 Test Item Value Reference Range Interpretation Comments PT (test code = PT) 14.4 s 12.0-14.7 [facility] HospitalXjhwkbhROLNEGJEOC2028-88-85 18:25:00 Test Item Value Reference Range Interpretation Comments PTT (test code = PTT) 30.3 s 22.9-35.8 [facility] HospitalSlegrkgTINTNCZFIN6424-59-34 18:25:00 Test Item Value Reference Range Interpretation Comments Hgb (test code = Hgb) 13.1 12.0-16.0 [facility] HospitalBilkvzcNTVDDISTZN0454-90-71 18:25:00 Test Item Value Reference Range Interpretation Comments RBC (test code = RBC) 4.51 4.20-5.40 [place] 526597-03-06 18:25:00 Test Item Value Reference Range Interpretation Comments WBC (test code = WBC) 5.4 3.7-10.4 [facility] HospitalTthkzioCLMIIFVWNW7115-49-84 18:25:00 Test Item Value Reference Range Interpretation Comments MPV (test code = MPV) 7.2 7.4-10.4 [facility] HospitalHwzywxwYQARISAFDG5124-30-22 18:25:00 Test Item Value Reference Range Interpretation Comments MCHC (test code = MCHC) 33.0 32.0-36.0 [facility] HospitalJolweoaHIHFXKLOGM6528-23-50 18:25:00 Test Item Value Reference Range Interpretation Comments RDW (test code = RDW) 14.0 11.5-14.5 [facility] HospitalEbjvfhpCLRUBJAUUW6093-30-95 18:25:00 Test Item Value Reference Range Interpretation Comments Platelet (test code = Platelet) 278 133-450 [facility] HospitalFuliwxmDIDSHAHYTZ4454-83-49 18:25:00 Test Item Value Reference Range Interpretation Comments MCH (test code = MCH) 29.0 pg 27.0-31.0 [facility] HospitalTqpokkhGJSEJKYZXK6827-52-99 18:25:00 Test Item Value Reference Range Interpretation Comments MCV (test code = MCV) 87.9 80.0-98.0 [facility] HospitalQvlregqTTMRSRBNEE8731-77-66 18:25:00 Test Item Value Reference Range Interpretation Comments Hct (test code = Hct) 39.7 36.0-48.0 [facility] HospitalIibbmwvCUYJIPTLKG5994-00-88 18:25:00 Test Item Value Reference Range Interpretation Comments Eosinophils (test code = 2.2 See_Comment [A utomated message] The Eosinophils) system which ge nerated this result tra nsmitted reference range : <=4.0. The reference r robbie was not used to int erpret this result as normal/abnormal . [facility] HospitalIeazseuZMFYXEOPUZ2505-10-76 18:25:00 Test Item Value Reference Range Interpretation Comments Segs-Bands # (test code = Segs-Bands #) 2.8 1.5-8.1 [facility] HospitalQlwhbvlSUJBVEUUJZ0392-96-22 18:25:00 Test Item Value Reference Range Interpretation Comments Basophils (test code = 0.9 See_Comment [Aut omated message] The Basophils) system which ge nerated this result tra nsmitted reference range : <=1.0. The reference r robbie was not used to int erpret this result as normal/abnormal . [facility] HospitalTpbtsvtGURUICVABF1036-36-83 18:25:00 Test Item Value Reference Range Interpretation Comments Lymphocytes # (test code = Lymphocytes 2.1 1.0-5.5 #) [facility] HospitalWqevptgKQYJHCHWXY4414-47-24 18:25:00 Test Item Value Reference Range Interpretation Comments Segs (test code = Segs) 52.3 45.0-75.0 [facility] HospitalLxgmkucBBEKDZAZSV1930-99-49 18:25:00 Test Item Value Reference Range Interpretation Comments Lymphocytes (test code = Lymphocytes) 38.0 20.0-40.0 [facility] HospitalQzpemltAJUQRBFUQI0856-26-97 18:25:00 Test Item Value Reference Range Interpretation Comments Monocytes (test code = Monocytes) 6.6 2.0-12.0 [facility] HospitalTmjwdxtNBOZLPANSU9586-23-04 18:25:00 Test Item Value Reference Range Interpretation Comments Basophils # (test code 0.1 See_Comment [Aut omated message] The = Basophils #) system which generated this result tra nsmitted reference range : <=0.2. The reference r robbie was not used to int erpret this result as normal/abnormal . [facility] HospitalBgwflmcYLKOMLAFPB3397-30-04 18:25:00 Test Item Value Reference Range Interpretation Comments Eosinophils # (test code 0.1 See_Comment [A utomated message] The = Eosinophils #) system whic h generated this result tra nsmitted reference range : <=0.5. The reference r robbie was not used to int erpret this result as normal/abnormal . [facility] HospitalNiqumzaZDMCYTJEUX9826-85-36 18:25:00 Test Item Value Reference Range Interpretation Comments Monocytes # (test code 0.4 See_Comment [Aut omated message] The = Monocytes #) system which generated this result tra nsmitted reference range : <=0.8. The reference r robbie was not used to int erpret this result as normal/abnormal . [facility] MGXCWTD8384-97-74 18:25:00 Test Item Value Reference Range Interpretation Comments ABO/Rh (test code = ABO/Rh) O POS [facility] NTBRQLO8459-03-63 18:25:00 Test Item Value Reference Range Interpretation Comments Antibody Scrn (test Negative (10/28/16 12:25 code = Antibody Scrn) PM) [facility] LAICS2874-08-11 18:25:00 Test Item Value Reference Range Interpretation Comments Magnesium Lvl (test code = Magnesium 1.9 1.8-2.4 Lvl) [facility] CenterIisesigHJUESVTPQWNB7729-16-13 18:25:00 Test Item Value Reference Range Interpretation Comments Potassium Lvl (test code = Potassium 4.4 3.5-5.1 Lvl) [facility] CenterBvdutyqAIIYXICYDYZL5565-08-47 18:25:00 Test Item Value Reference Range Interpretation Comments Calcium Lvl (test code = Calcium Lvl) 9.4 8.5-10.5 [facility] CenterMhgjanzVPUHRPZXJRID6299-99-71 18:25:00 Test Item Value Reference Range Interpretation Comments CO2 (test code = CO2) 31 24-32 [facility] CenterWtmpdgqKZHGSFXGGCAI4922-35-43 18:25:00 Test Item Value Reference Range Interpretation Comments Chloride Lvl (test code = Chloride Lvl) 103 95-109 [facility] CenterSasdaczMLLTGLYZJHAK7779-25-34 18:25:00 Test Item Value Reference Range Interpretation Comments eGFR (test code = eGFR) 55 [facility] CenterTotthpmHMKEUCNDYXMS2060-74-88 18:25:00 Test Item Value Reference Range Interpretation Comments Sodium Lvl (test code = Sodium Lvl) 141 135-145 [facility] CenterDymrjetJDGAFYERBVDN6302-99-77 18:25:00 Test Item Value Reference Range Interpretation Comments Creatinine Lvl (test code = Creatinine 0.97 0.50-1.40 Lvl) [facility] CenterUuvixpnRBWOFEBNEFEG9391-16-73 18:25:00 Test Item Value Reference Range Interpretation Comments BUN (test code = BUN) 24 7-22 [facility] CenterWbabwawYIAQIRLANGNC8692-74-00 18:25:00 Test Item Value Reference Range Interpretation Comments Glucose Lvl (test code = Glucose Lvl) 108 70-99 [facility] CenterWooqalbFJHIDFUMNTXU7028-58-98 18:25:00 Test Item Value Reference Range Interpretation Comments AGAP (test code = AGAP) 11.4 10.0-20.0 [facility] ArlingtonLngdmseHGTGJNWPNN0278-33-61 18:25:00 Test Item Value Reference Range Interpretation Comments INR (test code = INR) 1.10 0.85-1.17 [facility]DngjrylULYZVXBTSR7394-41-03 18:25:00 Test Item Value Reference Range Interpretation Comments PT (test code = PT) 14.4 s 12.0-14.7 [facility] HospitalPciugwrNTQPGHCPCB8147-81-36 18:25:00 Test Item Value Reference Range Interpretation Comments PTT (test code = PTT) 30.3 s 22.9-35.8 [facility] HospitalYpfbxknODRQQROQNS8760-46-79 18:25:00 Test Item Value Reference Range Interpretation Comments Hgb (test code = Hgb) 13.1 12.0-16.0 [facility] HospitalBebzwtcAZVJNALOFH6699-78-56 18:25:00 Test Item Value Reference Range Interpretation Comments RBC (test code = RBC) 4.51 4.20-5.40 [facility] HospitalJinaejePOJYQBMORZ7150-36-15 18:25:00 Test Item Value Reference Range Interpretation Comments WBC (test code = WBC) 5.4 3.7-10.4 [facility] HospitalTasfytgZJQSJTIYQA8883-84-40 18:25:00 Test Item Value Reference Range Interpretation Comments MPV (test code = MPV) 7.2 7.4-10.4 [facility] HospitalBwdvdnjIYGRRAIYKL9385-71-36 18:25:00 Test Item Value Reference Range Interpretation Comments MCHC (test code = MCHC) 33.0 32.0-36.0 [facility] HospitalBzlfeyyNZLCRVRSMY8478-14-61 18:25:00 Test Item Value Reference Range Interpretation Comments RDW (test code = RDW) 14.0 11.5-14.5 [facility] HospitalRxiizvlVDFXXGILAE8317-79-88 18:25:00 Test Item Value Reference Range Interpretation Comments Platelet (test code = Platelet) 278 133-450 [facility] HospitalYmrotgwXNITUALYXW8789-11-00 18:25:00 Test Item Value Reference Range Interpretation Comments MCH (test code = MCH) 29.0 pg 27.0-31.0 [facility] HospitalUyjyathITOWBADOTN3976-78-05 18:25:00 Test Item Value Reference Range Interpretation Comments MCV (test code = MCV) 87.9 80.0-98.0 [facility] HospitalVxncniaLEACCFWFLY3578-72-70 18:25:00 Test Item Value Reference Range Interpretation Comments Hct (test code = Hct) 39.7 36.0-48.0 [facility] HospitalSgxrzeoDVVMEHSBHY1486-34-36 18:25:00 Test Item Value Reference Range Interpretation Comments Eosinophils (test code = 2.2 See_Comment [A utomated message] The Eosinophils) system which ge nerated this result tra nsmitted reference range : <=4.0. The reference r robbie was not used to int erpret this result as normal/abnormal . [facility] HospitalBzkzvbhFQZFHDEWEE2652-32-56 18:25:00 Test Item Value Reference Range Interpretation Comments Segs-Bands # (test code = Segs-Bands #) 2.8 1.5-8.1 [place] [address]-03-06 18:25:00 Test Item Value Reference Range Interpretation Comments Basophils (test code = 0.9 See_Comment [Aut omated message] The Basophils) system which ge nerated this result tra nsmitted reference range : <=1.0. The reference r robbie was not used to int erpret this result as normal/abnormal . [facility] HospitalXacqcuxAZHVAHLIFJ5504-60-58 18:25:00 Test Item Value Reference Range Interpretation Comments Lymphocytes # (test code = Lymphocytes 2.1 1.0-5.5 #) [facility] HospitalYbquhstKFNRLHZGJG3818-67-71 18:25:00 Test Item Value Reference Range Interpretation Comments Segs (test code = Segs) 52.3 45.0-75.0 [facility] HospitalLmnugxrYGVKHRSVYP5083-92-29 18:25:00 Test Item Value Reference Range Interpretation Comments Lymphocytes (test code = Lymphocytes) 38.0 20.0-40.0 [facility] HospitalFidryukEAJBUALSHS5329-76-82 18:25:00 Test Item Value Reference Range Interpretation Comments Monocytes (test code = Monocytes) 6.6 2.0-12.0 [place] [address]-03-06 18:25:00 Test Item Value Reference Range Interpretation Comments Basophils # (test code 0.1 See_Comment [Aut omated message] The = Basophils #) system which generated this result tra nsmitted reference range : <=0.2. The reference r robbie was not used to int erpret this result as normal/abnormal . [facility] HospitalPhmnytkJMHVZUMYHF6435-37-31 18:25:00 Test Item Value Reference Range Interpretation Comments Eosinophils # (test code 0.1 See_Comment [A utomated message] The = Eosinophils #) system whic h generated this result tra nsmitted reference range : <=0.5. The reference r robbie was not used to int erpret this result as normal/abnormal . [facility] ArlingtonAtlfxmwRERYPVRQWO3477-12-30 18:25:00 Test Item Value Reference Range Interpretation Comments Monocytes # (test code 0.4 See_Comment [Aut omated message] The = Monocytes #) system which generated this result tra nsmitted reference range : <=0.8. The reference r robbie was not used to int erpret this result as normal/abnormal . [facility] TSWOQBT6454-35-93 18:25:00 Test Item Value Reference Range Interpretation Comments ABO/Rh (test code = ABO/Rh) O POS [facility]BioDigitalPlaysino [facility] WMDDYYC7919-59-34 18:25:00 Test Item Value Reference Range Interpretation Comments Antibody Scrn (test Negative (10/28/16 12:25 code = Antibody Scrn) PM) [facility]BioDigitalCHEM AELNK5032-10-62 18:25:00 Test Item Value Reference Range Interpretation Comments Magnesium Lvl (test code = Magnesium 1.9 1.8-2.4 Lvl) [facility] CenterRjksoivJWCQRTEEQRYR7057-09-40 18:25:00 Test Item Value Reference Range Interpretation Comments Potassium Lvl (test code = Potassium 4.4 3.5-5.1 Lvl) [facility] CenterCegxajbBVMBQVSBJNYI5743-97-06 18:25:00 Test Item Value Reference Range Interpretation Comments Calcium Lvl (test code = Calcium Lvl) 9.4 8.5-10.5 [facility] CenterUiyjxhcOSNZMAWSGNFW9136-97-61 18:25:00 Test Item Value Reference Range Interpretation Comments CO2 (test code = CO2) 31 24-32 [facility] CenterJhleznrANYXYOCXLZWM4791-42-43 18:25:00 Test Item Value Reference Range Interpretation Comments Chloride Lvl (test code = Chloride Lvl) 103 95-109 [facility] CenterFmhdgeuRTGRSCDWCHHT3586-91-21 18:25:00 Test Item Value Reference Range Interpretation Comments eGFR (test code = eGFR) 55 [facility] CenterGnoalctMFSXGOMMVEJN0713-82-59 18:25:00 Test Item Value Reference Range Interpretation Comments Sodium Lvl (test code = Sodium Lvl) 141 135-145 [facility]enLknffugBEFUEKRYUMNB0060-39-96 18:25:00 Test Item Value Reference Range Interpretation Comments Creatinine Lvl (test code = Creatinine 0.97 0.50-1.40 Lvl) [facility] CenterDwdugibPWOZOBTKPIQL0911-35-71 18:25:00 Test Item Value Reference Range Interpretation Comments BUN (test code = BUN) 24 7-22 [facility] CenterDrgnsuiPCTRGGPUDKDB6459-27-19 18:25:00 Test Item Value Reference Range Interpretation Comments Glucose Lvl (test code = Glucose Lvl) 108 70-99 [facility] CenterDopjgbyHWFLKLASXMEX8156-50-96 18:25:00 Test Item Value Reference Range Interpretation Comments AGAP (test code = AGAP) 11.4 10.0-20.0 [facility] HospitalRtsjqvkBEHGXTOVGY1629-01-07 18:25:00 Test Item Value Reference Range Interpretation Comments INR (test code = INR) 1.10 0.85-1.17 [facility] HospitalMsnsviiXGMITJKMQO5325-04-71 18:25:00 Test Item Value Reference Range Interpretation Comments PT (test code = PT) 14.4 s 12.0-14.7 [facility] HospitalPsnxyjfDRBAZYSQRW4885-13-39 18:25:00 Test Item Value Reference Range Interpretation Comments PTT (test code = PTT) 30.3 s 22.9-35.8 [facility] HospitalJvibyhcBZJXEBMXNP3010-23-58 18:25:00 Test Item Value Reference Range Interpretation Comments Hgb (test code = Hgb) 13.1 12.0-16.0 [facility] HospitalAnlqqfsPNTRAOKQOT9773-93-36 18:25:00 Test Item Value Reference Range Interpretation Comments RBC (test code = RBC) 4.51 4.20-5.40 [facility] HospitalPbpovzhQJFCVUZLJV2948-62-69 18:25:00 Test Item Value Reference Range Interpretation Comments WBC (test code = WBC) 5.4 3.7-10.4 [facility] HospitalBkynvulLNXATJGSKB3500-81-22 18:25:00 Test Item Value Reference Range Interpretation Comments MPV (test code = MPV) 7.2 7.4-10.4 [facility] HospitalGiyfzhaBORDBBSHPV6897-69-81 18:25:00 Test Item Value Reference Range Interpretation Comments MCHC (test code = MCHC) 33.0 32.0-36.0 [facility] HospitalAoixkagBCKLXXPSUR4459-28-38 18:25:00 Test Item Value Reference Range Interpretation Comments RDW (test code = RDW) 14.0 11.5-14.5 [facility] HospitalLhrexoeBKLSAVYXFI0181-86-73 18:25:00 Test Item Value Reference Range Interpretation Comments Platelet (test code = Platelet) 278 133-450 [facility] HospitalMovouvrGRKLYFRVIO1513-23-21 18:25:00 Test Item Value Reference Range Interpretation Comments MCH (test code = MCH) 29.0 pg 27.0-31.0 [facility] HospitalNjrhcakDUDKBOIAHX2615-53-28 18:25:00 Test Item Value Reference Range Interpretation Comments MCV (test code = MCV) 87.9 80.0-98.0 [facility] HospitalMysvkxpBTNXFFOQUI1968-04-63 18:25:00 Test Item Value Reference Range Interpretation Comments Hct (test code = Hct) 39.7 36.0-48.0 [facility] HospitalOcfruhwGJEXDFEQQW5572-62-10 18:25:00 Test Item Value Reference Range Interpretation Comments Eosinophils (test code = 2.2 See_Comment [A utomated message] The Eosinophils) system which ge nerated this result tra nsmitted reference range : <=4.0. The reference r robbie was not used to int erpret this result as normal/abnormal . [facility] HospitalPdixxaoQTBHUIVZWX0048-48-50 18:25:00 Test Item Value Reference Range Interpretation Comments Segs-Bands # (test code = Segs-Bands #) 2.8 1.5-8.1 [facility] HospitalAiwcrftHCSIMCRFEJ2432-39-13 18:25:00 Test Item Value Reference Range Interpretation Comments Basophils (test code = 0.9 See_Comment [Aut omated message] The Basophils) system which ge nerated this result tra nsmitted reference range : <=1.0. The reference r robbie was not used to int erpret this result as normal/abnormal . [facility] HospitalElahyqjJLFPHAZHUV4050-53-34 18:25:00 Test Item Value Reference Range Interpretation Comments Lymphocytes # (test code = Lymphocytes 2.1 1.0-5.5 #) [facility] HospitalDplvzsyVPYMPLMXEW3333-54-28 18:25:00 Test Item Value Reference Range Interpretation Comments Segs (test code = Segs) 52.3 45.0-75.0 [facility] HospitalHgnbcqqMGSDUXISKN0768-05-15 18:25:00 Test Item Value Reference Range Interpretation Comments Lymphocytes (test code = Lymphocytes) 38.0 20.0-40.0 [facility] HospitalLzsfilxWBYOCGLAGI1686-14-36 18:25:00 Test Item Value Reference Range Interpretation Comments Monocytes (test code = Monocytes) 6.6 2.0-12.0 [facility] HospitalLlhxzqcZFTUMQULFH2592-17-14 18:25:00 Test Item Value Reference Range Interpretation Comments Basophils # (test code 0.1 See_Comment [Aut omated message] The = Basophils #) system which generated this result tra nsmitted reference range : <=0.2. The reference r robbie was not used to int erpret this result as normal/abnormal . [facility] HospitalNuwcmxwLTAEOKVNEY1083-14-98 18:25:00 Test Item Value Reference Range Interpretation Comments Eosinophils # (test code 0.1 See_Comment [A utomated message] The = Eosinophils #) system whic h generated this result tra nsmitted reference range : <=0.5. The reference r robbie was not used to int erpret this result as normal/abnormal . [facility] HospitalJxbsywgWNHGADLYIU5536-03-61 18:25:00 Test Item Value Reference Range Interpretation Comments Monocytes # (test code 0.4 See_Comment [Aut omated message] The = Monocytes #) system which generated this result tra nsmitted reference range : <=0.8. The reference r robbie was not used to int erpret this result as normal/abnormal . [facility] XJHXWUM7030-87-30 18:25:00 Test Item Value Reference Range Interpretation Comments ABO/Rh (test code = ABO/Rh) O POS [facility] FOCJFZE8923-52-56 18:25:00 Test Item Value Reference Range Interpretation Comments Antibody Scrn (test Negative (10/28/16 12:25 code = Antibody Scrn) PM) [facility]CHE[facility] [id number] 18:25:00 Test Item Value Reference Range Interpretation Comments Magnesium Lvl (test code = Magnesium 1.9 1.8-2.4 Lvl) [facility] CenterBreutwsHZFJSRLTOMXC8333-93-53 18:25:00 Test Item Value Reference Range Interpretation Comments Potassium Lvl (test code = Potassium 4.4 3.5-5.1 Lvl) [facility] CenterHintuuwHGIJVTBLCQHE9847-69-57 18:25:00 Test Item Value Reference Range Interpretation Comments Calcium Lvl (test code = Calcium Lvl) 9.4 8.5-10.5 [facility] CenterOazucdxJVRGJCXJHRER6053-89-18 18:25:00 Test Item Value Reference Range Interpretation Comments CO2 (test code = CO2) 31 24-32 [facility] CenterYyfiuicTPKVSKSGCBWM6573-28-03 18:25:00 Test Item Value Reference Range Interpretation Comments Chloride Lvl (test code = Chloride Lvl) 103 95-109 [facility] CenterWkermidXEGCSCQOLMAH7643-75-67 18:25:00 Test Item Value Reference Range Interpretation Comments eGFR (test code = eGFR) 55 [facility] CenterCcteqzgUVMBQAVWVIFT9730-42-27 18:25:00 Test Item Value Reference Range Interpretation Comments Sodium Lvl (test code = Sodium Lvl) 141 135-145 [facility] CenterEtbbagkNSNYJKDROLZW4484-61-43 18:25:00 Test Item Value Reference Range Interpretation Comments Creatinine Lvl (test code = Creatinine 0.97 0.50-1.40 Lvl) [facility] CenterWkenqsiWDOZLAPCGHWE6639-96-59 18:25:00 Test Item Value Reference Range Interpretation Comments BUN (test code = BUN) 24 7-22 [facility] CenterGdysxvaSGVWHUQCADWB9887-82-82 18:25:00 Test Item Value Reference Range Interpretation Comments Glucose Lvl (test code = Glucose Lvl) 108 70-99 [facility] CenterLklpufzECZECUMFWCBK3830-73-70 18:25:00 Test Item Value Reference Range Interpretation Comments AGAP (test code = AGAP) 11.4 10.0-20.0 [facility] HospitalDexirpgZXIXBWQNCO8878-63-58 18:25:00 Test Item Value Reference Range Interpretation Comments INR (test code = INR) 1.10 0.85-1.17 [facility] HospitalTksmiovMCQPJRUHYN5918-81-28 18:25:00 Test Item Value Reference Range Interpretation Comments PT (test code = PT) 14.4 s 12.0-14.7 [facility] HospitalNjqxfcaKHRKXDJLOR0256-83-70 18:25:00 Test Item Value Reference Range Interpretation Comments PTT (test code = PTT) 30.3 s 22.9-35.8 [facility] HospitalGvergrtEWCJUCKQWY2294-89-65 18:25:00 Test Item Value Reference Range Interpretation Comments Hgb (test code = Hgb) 13.1 12.0-16.0 [facility] HospitalFsbuyoiZRTWTMPCJY1534-44-98 18:25:00 Test Item Value Reference Range Interpretation Comments RBC (test code = RBC) 4.51 4.20-5.40 [facility] HospitalYthsvvcMMCLFJJFGK9217-39-22 18:25:00 Test Item Value Reference Range Interpretation Comments WBC (test code = WBC) 5.4 3.7-10.4 [facility] HospitalVfhbpcjBEHVQCVEFJ5577-67-12 18:25:00 Test Item Value Reference Range Interpretation Comments MPV (test code = MPV) 7.2 7.4-10.4 [facility] HospitalNkrmiskIFJNRRHFSB6359-89-34 18:25:00 Test Item Value Reference Range Interpretation Comments MCHC (test code = MCHC) 33.0 32.0-36.0 [facility] HospitalBflvtpeBDLBNLGXBU5831-75-65 18:25:00 Test Item Value Reference Range Interpretation Comments RDW (test code = RDW) 14.0 11.5-14.5 [facility] HospitalVbyzteiYSUPCSMJRE2381-12-69 18:25:00 Test Item Value Reference Range Interpretation Comments Platelet (test code = Platelet) 278 133-450 [facility] HospitalTsnfsqfQANIYDKBLR4145-66-01 18:25:00 Test Item Value Reference Range Interpretation Comments MCH (test code = MCH) 29.0 pg 27.0-31.0 [facility] HospitalYwafrkrQTHECNIMJV1205-80-57 18:25:00 Test Item Value Reference Range Interpretation Comments MCV (test code = MCV) 87.9 80.0-98.0 [facility] HospitalZbxilgyOQGCULLXAZ2398-68-90 18:25:00 Test Item Value Reference Range Interpretation Comments Hct (test code = Hct) 39.7 36.0-48.0 [facility] HospitalFybosqnJCDROOGSOT6136-94-10 18:25:00 Test Item Value Reference Range Interpretation Comments Eosinophils (test code = 2.2 See_Comment [A utomated message] The Eosinophils) system which ge nerated this result tra nsmitted reference range : <=4.0. The reference r robbie was not used to int erpret this result as normal/abnormal . [facility] HospitalIxczkpcLPIXGVILPJ5723-30-33 18:25:00 Test Item Value Reference Range Interpretation Comments Segs-Bands # (test code = Segs-Bands #) 2.8 1.5-8.1 [facility] HospitalCwenhwhGTRHAZGTWJ7336-45-29 18:25:00 Test Item Value Reference Range Interpretation Comments Basophils (test code = 0.9 See_Comment [Aut omated message] The Basophils) system which ge nerated this result tra nsmitted reference range : <=1.0. The reference r robbie was not used to int erpret this result as normal/abnormal . [facility] HospitalHnbiantHNUSGDIJHW7433-39-45 18:25:00 Test Item Value Reference Range Interpretation Comments Lymphocytes # (test code = Lymphocytes 2.1 1.0-5.5 #) [facility] HospitalVdjezppOTTDXHKEWK6109-35-83 18:25:00 Test Item Value Reference Range Interpretation Comments Segs (test code = Segs) 52.3 45.0-75.0 [facility] HospitalCutlhnkBOKTKKWKNR5343-21-96 18:25:00 Test Item Value Reference Range Interpretation Comments Lymphocytes (test code = Lymphocytes) 38.0 20.0-40.0 [facility] HospitalLshfkiwLUCFKHOYWS2033-69-65 18:25:00 Test Item Value Reference Range Interpretation Comments Monocytes (test code = Monocytes) 6.6 2.0-12.0 [facility] HospitalXkjxgztIOAQFWAGIG9121-43-00 18:25:00 Test Item Value Reference Range Interpretation Comments Basophils # (test code 0.1 See_Comment [Aut omated message] The = Basophils #) system which generated this result tra nsmitted reference range : <=0.2. The reference r robbie was not used to int erpret this result as normal/abnormal . [facility] HospitalWzncrdpQNCEZKXJQL5260-01-60 18:25:00 Test Item Value Reference Range Interpretation Comments Eosinophils # (test code 0.1 See_Comment [A utomated message] The = Eosinophils #) system whic h generated this result tra nsmitted reference range : <=0.5. The reference r robbie was not used to int erpret this result as normal/abnormal . [facility] HospitalTnhsmwpVJUFNMOHNX2791-68-71 18:25:00 Test Item Value Reference Range Interpretation Comments Monocytes # (test code 0.4 See_Comment [Aut omated message] The = Monocytes #) system which generated this result tra nsmitted reference range : <=0.8. The reference r robbie was not used to int erpret this result as normal/abnormal . [facility] CenterBlippex WUGOLSU7676-58-91 18:25:00 Test Item Value Reference Range Interpretation Comments ABO/Rh (test code = ABO/Rh) O POS [facility] PHFFMPH3040-11-96 18:25:00 Test Item Value Reference Range Interpretation Comments Antibody Scrn (test Negative (10/28/16 12:25 code = Antibody Scrn) PM) [facility]CHE[facility] IIFYF1812-23-15 18:25:00 Test Item Value Reference Range Interpretation Comments Magnesium Lvl (test code = Magnesium 1.9 1.8-2.4 Lvl) [facility] CenterEnipjgcEZIWCJQFKQNG5297-51-56 18:25:00 Test Item Value Reference Range Interpretation Comments Potassium Lvl (test code = Potassium 4.4 3.5-5.1 Lvl) [facility] CenterDirzgwaNNSVDQXRHPVZ9226-70-56 18:25:00 Test Item Value Reference Range Interpretation Comments Calcium Lvl (test code = Calcium Lvl) 9.4 8.5-10.5 [facility] CenterNgbahveTEGQZGKQBFBJ5870-65-78 18:25:00 Test Item Value Reference Range Interpretation Comments CO2 (test code = CO2) 31 24-32 [facility] CenterTskaijbWPYOMODHGDLY0626-91-72 18:25:00 Test Item Value Reference Range Interpretation Comments Chloride Lvl (test code = Chloride Lvl) 103 95-109 [facility] CenterRdjlipgNUPRGYQBAEMP2778-13-54 18:25:00 Test Item Value Reference Range Interpretation Comments eGFR (test code = eGFR) 55 [facility] CenterVelnxyyLGJQSELAVHFN5391-54-53 18:25:00 Test Item Value Reference Range Interpretation Comments Sodium Lvl (test code = Sodium Lvl) 141 135-145 [facility] CenterRsqjidgWREREQYQISEI9652-86-71 18:25:00 Test Item Value Reference Range Interpretation Comments Creatinine Lvl (test code = Creatinine 0.97 0.50-1.40 Lvl) [facility] CenterUftbreyPZGGWQZCUYIZ6509-48-66 18:25:00 Test Item Value Reference Range Interpretation Comments BUN (test code = BUN) 24 7-22 [facility] CenterMxwbhizEPVSTLLAWSXD7465-03-25 18:25:00 Test Item Value Reference Range Interpretation Comments Glucose Lvl (test code = Glucose Lvl) 108 70-99 [facility] CenterJtddwmmSNSVSGFCUEOQ8522-64-63 18:25:00 Test Item Value Reference Range Interpretation Comments AGAP (test code = AGAP) 11.4 10.0-20.0 [facility] ArlingtonZdvtbogZCQNFFYTHB9488-01-58 18:25:00 Test Item Value Reference Range Interpretation Comments INR (test code = INR) 1.10 0.85-1.17 [facility] HospitalXerfbinMGTSCWCOCU9546-72-01 18:25:00 Test Item Value Reference Range Interpretation Comments PT (test code = PT) 14.4 s 12.0-14.7 [facility] HospitalIltiztbHVIDPCNDFA9048-40-48 18:25:00 Test Item Value Reference Range Interpretation Comments PTT (test code = PTT) 30.3 s 22.9-35.8 [facility] HospitalNdgsunkCSBNRPDBAW8391-56-80 18:25:00 Test Item Value Reference Range Interpretation Comments Hgb (test code = Hgb) 13.1 12.0-16.0 [facility] HospitalBbjeuowNJPNSVXRNU8150-34-93 18:25:00 Test Item Value Reference Range Interpretation Comments RBC (test code = RBC) 4.51 4.20-5.40 [facility] HospitalFskiwdgQQKBEUJCHH0967-30-15 18:25:00 Test Item Value Reference Range Interpretation Comments WBC (test code = WBC) 5.4 3.7-10.4 [facility] HospitalJbchmmfHVABKLDUML9944-90-67 18:25:00 Test Item Value Reference Range Interpretation Comments MPV (test code = MPV) 7.2 7.4-10.4 [facility] HospitalDyigvckMJVJUYEGUO5821-81-27 18:25:00 Test Item Value Reference Range Interpretation Comments MCHC (test code = MCHC) 33.0 32.0-36.0 [facility] HospitalIvreyiuUUWQNWUOZO7067-96-58 18:25:00 Test Item Value Reference Range Interpretation Comments RDW (test code = RDW) 14.0 11.5-14.5 [facility] HospitalWryxjwtPUCVGEWTWK1114-91-99 18:25:00 Test Item Value Reference Range Interpretation Comments Platelet (test code = Platelet) 278 133-450 [facility] HospitalSwmazrkQCCOCICSFD5262-70-88 18:25:00 Test Item Value Reference Range Interpretation Comments MCH (test code = MCH) 29.0 pg 27.0-31.0 [facility] HospitalTjsxogfQCSQGGGLLF5631-28-78 18:25:00 Test Item Value Reference Range Interpretation Comments MCV (test code = MCV) 87.9 80.0-98.0 [facility] HospitalGqzkcbxYIYFIPFVNQ5977-50-39 18:25:00 Test Item Value Reference Range Interpretation Comments Hct (test code = Hct) 39.7 36.0-48.0 [facility] HospitalJemfbzlWMMGIWYTFK8458-41-20 18:25:00 Test Item Value Reference Range Interpretation Comments Eosinophils (test code = 2.2 See_Comment [A utomated message] The Eosinophils) system which ge nerated this result tra nsmitted reference range : <=4.0. The reference r robbie was not used to int erpret this result as normal/abnormal . [facility] HospitalLxxrkziFSIUBQVPTC7067-38-53 18:25:00 Test Item Value Reference Range Interpretation Comments Segs-Bands # (test code = Segs-Bands #) 2.8 1.5-8.1 [facility]BxducuaONZKAAZHDZ2678-20-59 18:25:00 Test Item Value Reference Range Interpretation Comments Basophils (test code = 0.9 See_Comment [Aut omated message] The Basophils) system which ge nerated this result tra nsmitted reference range : <=1.0. The reference r robbie was not used to int erpret this result as normal/abnormal . [facility] HospitalUmpnnwxCHAVWYXCTU7724-95-37 18:25:00 Test Item Value Reference Range Interpretation Comments Lymphocytes # (test code = Lymphocytes 2.1 1.0-5.5 #) [facility] HospitalVwfcbvaSZEDPWFERF1421-82-72 18:25:00 Test Item Value Reference Range Interpretation Comments Segs (test code = Segs) 52.3 45.0-75.0 [facility] HospitalVhgkngvLKHXGUXYMP8374-45-87 18:25:00 Test Item Value Reference Range Interpretation Comments Lymphocytes (test code = Lymphocytes) 38.0 20.0-40.0 [facility] HospitalRnbitmwYJBPRXOMID2274-99-14 18:25:00 Test Item Value Reference Range Interpretation Comments Monocytes (test code = Monocytes) 6.6 2.0-12.0 [facility] HospitalTuehmdyIQYUWRLWAZ2592-64-57 18:25:00 Test Item Value Reference Range Interpretation Comments Basophils # (test code 0.1 See_Comment [Aut omated message] The = Basophils #) system which generated this result tra nsmitted reference range : <=0.2. The reference r robbie was not used to int erpret this result as normal/abnormal . [facility] HospitalCqfksaiTEBUJEUNOI5053-26-57 18:25:00 Test Item Value Reference Range Interpretation Comments Eosinophils # (test code 0.1 See_Comment [A utomated message] The = Eosinophils #) system whic h generated this result tra nsmitted reference range : <=0.5. The reference r robbie was not used to int erpret this result as normal/abnormal . [facility] ArlingtonBjykoioXETFKCSHCY0591-67-59 18:25:00 Test Item Value Reference Range Interpretation Comments Monocytes # (test code 0.4 See_Comment [Aut omated message] The = Monocytes #) system which generated this result tra nsmitted reference range : <=0.8. The reference r robbie was not used to int erpret this result as normal/abnormal . [facility] XRUYWGP9322-37-11 18:25:00 Test Item Value Reference Range Interpretation Comments ABO/Rh (test code = ABO/Rh) O POS [facility] [id number] 18:25:00 Test Item Value Reference Range Interpretation Comments Antibody Scrn (test Negative (10/28/16 12:25 code = Antibody Scrn) PM) [facility] ArlingtonCHE[facility] [id number] 18:25:00 Test Item Value Reference Range Interpretation Comments Magnesium Lvl (test code = Magnesium 1.9 1.8-2.4 Lvl) [facility]HbkmfzqTCCCJBXPKXYT7883-97-07 18:25:00 Test Item Value Reference Range Interpretation Comments Potassium Lvl (test code = Potassium 4.4 3.5-5.1 Lvl) [facility] CenterMvjewhkNJQTJSENIMWS8271-90-71 18:25:00 Test Item Value Reference Range Interpretation Comments Calcium Lvl (test code = Calcium Lvl) 9.4 8.5-10.5 [facility] CenterFpiteruFTHHQMCVNHJN3576-87-11 18:25:00 Test Item Value Reference Range Interpretation Comments CO2 (test code = CO2) 31 24-32 [facility] CenterJuczqvqOGWVDLBATDTE2909-50-14 18:25:00 Test Item Value Reference Range Interpretation Comments Chloride Lvl (test code = Chloride Lvl) 103 95-109 [facility] CenterDhvryqtATWEAFYPWDED4379-65-72 18:25:00 Test Item Value Reference Range Interpretation Comments eGFR (test code = eGFR) 55 [facility] CenterUmitfocVSDDOVKYZIPL1498-55-78 18:25:00 Test Item Value Reference Range Interpretation Comments Sodium Lvl (test code = Sodium Lvl) 141 135-145 [facility] CenterIcmnmplCCRSQHWKKYQU9908-92-16 18:25:00 Test Item Value Reference Range Interpretation Comments Creatinine Lvl (test code = Creatinine 0.97 0.50-1.40 Lvl) [facility] CenterUnhmjlsFXSCHIJBBMNM4952-61-71 18:25:00 Test Item Value Reference Range Interpretation Comments BUN (test code = BUN) 24 7-22 [facility] CenterZrbxkdoOXALSNWSHAIX3828-49-26 18:25:00 Test Item Value Reference Range Interpretation Comments Glucose Lvl (test code = Glucose Lvl) 108 70-99 [facility] CenterKxicllaHLNMCJMHGDSE5475-69-48 18:25:00 Test Item Value Reference Range Interpretation Comments AGAP (test code = AGAP) 11.4 10.0-20.0 [facility] HospitalNlcavtgFOTIHXSSHZ1257-99-78 18:25:00 Test Item Value Reference Range Interpretation Comments INR (test code = INR) 1.10 0.85-1.17 [facility] HospitalAnhbscdOJJHABRHRD6789-17-71 18:25:00 Test Item Value Reference Range Interpretation Comments PT (test code = PT) 14.4 s 12.0-14.7 [facility] HospitalXuralneMPPVRTSQRA6991-59-58 18:25:00 Test Item Value Reference Range Interpretation Comments PTT (test code = PTT) 30.3 s 22.9-35.8 [facility] HospitalWvjamkbALMEZDELPI5195-16-85 18:25:00 Test Item Value Reference Range Interpretation Comments Hgb (test code = Hgb) 13.1 12.0-16.0 [facility] HospitalKqithayNXRBSIHJSC5949-52-84 18:25:00 Test Item Value Reference Range Interpretation Comments RBC (test code = RBC) 4.51 4.20-5.40 [facility] HospitalFrdpqboJWBGYNHUXD3959-67-05 18:25:00 Test Item Value Reference Range Interpretation Comments WBC (test code = WBC) 5.4 3.7-10.4 [facility] HospitalJbbjdhtGIBKZGOOBB1334-69-92 18:25:00 Test Item Value Reference Range Interpretation Comments MPV (test code = MPV) 7.2 7.4-10.4 [facility] HospitalRyhdeqfPUEIKBNFOU4169-81-48 18:25:00 Test Item Value Reference Range Interpretation Comments MCHC (test code = MCHC) 33.0 32.0-36.0 [facility] HospitalCnhphowPSQCFOKYCG9015-65-36 18:25:00 Test Item Value Reference Range Interpretation Comments RDW (test code = RDW) 14.0 11.5-14.5 [facility] HospitalEhmtbzeDCOVBYPBYZ1134-79-85 18:25:00 Test Item Value Reference Range Interpretation Comments Platelet (test code = Platelet) 278 133-450 [facility] HospitalFjtyzyxRXBWIDXSUF1089-53-73 18:25:00 Test Item Value Reference Range Interpretation Comments MCH (test code = MCH) 29.0 pg 27.0-31.0 [facility] HospitalXjdaudkNMPIBMSKHZ8056-14-18 18:25:00 Test Item Value Reference Range Interpretation Comments MCV (test code = MCV) 87.9 80.0-98.0 [facility] HospitalDfmfcccHRVOQZGHED6453-61-53 18:25:00 Test Item Value Reference Range Interpretation Comments Hct (test code = Hct) 39.7 36.0-48.0 [facility] HospitalSnfsrhwTNDZQVZOKB3043-48-52 18:25:00 Test Item Value Reference Range Interpretation Comments Eosinophils (test code = 2.2 See_Comment [A utomated message] The Eosinophils) system which ge nerated this result tra nsmitted reference range : <=4.0. The reference r robbie was not used to int erpret this result as normal/abnormal . [facility] HospitalGrlyeskIPYHRFGRAE3106-76-21 18:25:00 Test Item Value Reference Range Interpretation Comments Segs-Bands # (test code = Segs-Bands #) 2.8 1.5-8.1 [facility] HospitalHolsaoiFHJIODRNKH0621-39-23 18:25:00 Test Item Value Reference Range Interpretation Comments Basophils (test code = 0.9 See_Comment [Aut omated message] The Basophils) system which ge nerated this result tra nsmitted reference range : <=1.0. The reference r robbie was not used to int erpret this result as normal/abnormal . [facility] HospitalYihyxsrJLLGXIYLJN9316-49-70 18:25:00 Test Item Value Reference Range Interpretation Comments Lymphocytes # (test code = Lymphocytes 2.1 1.0-5.5 #) [facility] HospitalRunuovfIOFCKRCKQD5073-49-47 18:25:00 Test Item Value Reference Range Interpretation Comments Segs (test code = Segs) 52.3 45.0-75.0 [facility] HospitalPihcjghSRKDYVDRWG2115-50-79 18:25:00 Test Item Value Reference Range Interpretation Comments Lymphocytes (test code = Lymphocytes) 38.0 20.0-40.0 [facility] HospitalIknfnrwDYIRTBOZYV9067-66-27 18:25:00 Test Item Value Reference Range Interpretation Comments Monocytes (test code = Monocytes) 6.6 2.0-12.0 [facility] HospitalKqkwejdEFIXSSCNEW6002-63-73 18:25:00 Test Item Value Reference Range Interpretation Comments Basophils # (test code 0.1 See_Comment [Aut omated message] The = Basophils #) system which generated this result tra nsmitted reference range : <=0.2. The reference r robbie was not used to int erpret this result as normal/abnormal . [facility] HospitalLbnfchcAGIGHDGNJS3030-51-42 18:25:00 Test Item Value Reference Range Interpretation Comments Eosinophils # (test code 0.1 See_Comment [A utomated message] The = Eosinophils #) system whic h generated this result tra nsmitted reference range : <=0.5. The reference r robbie was not used to int erpret this result as normal/abnormal . [facility] HospitalWqmeebhRKBAEMQIYE1412-16-41 18:25:00 Test Item Value Reference Range Interpretation Comments Monocytes # (test code 0.4 See_Comment [Aut omated message] The = Monocytes #) system which generated this result tra nsmitted reference range : <=0.8. The reference r robbie was not used to int erpret this result as normal/abnormal . [facility] OFRXMLL9890-18-58 18:25:00 Test Item Value Reference Range Interpretation Comments ABO/Rh (test code = ABO/Rh) O POS [facility] MCXKNXU4913-49-55 18:25:00 Test Item Value Reference Range Interpretation Comments Antibody Scrn (test Negative (10/28/16 12:25 code = Antibody Scrn) PM) [facility]Smart[facility] KUIUU3375-89-67 18:25:00 Test Item Value Reference Range Interpretation Comments Magnesium Lvl (test code = Magnesium 1.9 1.8-2.4 Lvl) [facility] CenterIjobbshGPRFYPOTXFLS3577-15-25 18:25:00 Test Item Value Reference Range Interpretation Comments Potassium Lvl (test code = Potassium 4.4 3.5-5.1 Lvl) [facility] CenterGfkheirVTCVPWQZLGVC2167-70-93 18:25:00 Test Item Value Reference Range Interpretation Comments Calcium Lvl (test code = Calcium Lvl) 9.4 8.5-10.5 [facility] CenterCrsryabMHUWWVWZANJG7565-96-17 18:25:00 Test Item Value Reference Range Interpretation Comments CO2 (test code = CO2) 31 24-32 [facility] CenterBazehmuAHGJUZMSDZXD2790-25-74 18:25:00 Test Item Value Reference Range Interpretation Comments Chloride Lvl (test code = Chloride Lvl) 103 95-109 [facility] CenterHhhzqwiBTFUDAAKGCRW5073-79-99 18:25:00 Test Item Value Reference Range Interpretation Comments eGFR (test code = eGFR) 55 [facility] CenterQpqbdfjWTPWGIFEIRFV2120-63-98 18:25:00 Test Item Value Reference Range Interpretation Comments Sodium Lvl (test code = Sodium Lvl) 141 135-145 [facility] CenterYjnrzxfNJXDEKXDOYEZ1899-50-91 18:25:00 Test Item Value Reference Range Interpretation Comments Creatinine Lvl (test code = Creatinine 0.97 0.50-1.40 Lvl) [facility] CenterWaorwwdRODIUWJRWHUT2735-94-11 18:25:00 Test Item Value Reference Range Interpretation Comments BUN (test code = BUN) 24 7-22 [facility] CenterWumjrsjXADDJRQNMKFR8930-10-65 18:25:00 Test Item Value Reference Range Interpretation Comments Glucose Lvl (test code = Glucose Lvl) 108 70-99 [facility] CenterFaixifpOCBLQUMFMLMX1170-45-77 18:25:00 Test Item Value Reference Range Interpretation Comments AGAP (test code = AGAP) 11.4 10.0-20.0 [facility] HospitalSgwzetvTJFVUJVYNW3846-05-00 18:25:00 Test Item Value Reference Range Interpretation Comments INR (test code = INR) 1.10 0.85-1.17 [facility] HospitalWezftbsBDKODVHSOR6672-19-21 18:25:00 Test Item Value Reference Range Interpretation Comments PT (test code = PT) 14.4 s 12.0-14.7 [facility] HospitalFcbnbynEYBEXUBKHJ5101-26-40 18:25:00 Test Item Value Reference Range Interpretation Comments PTT (test code = PTT) 30.3 s 22.9-35.8 [facility] HospitalTsofozhBDIUKJYAGQ3547-22-79 18:25:00 Test Item Value Reference Range Interpretation Comments Hgb (test code = Hgb) 13.1 12.0-16.0 [facility] HospitalDreenctSBFMHWGDUB9290-37-14 18:25:00 Test Item Value Reference Range Interpretation Comments RBC (test code = RBC) 4.51 4.20-5.40 [facility] HospitalByafeeqUNPQDLBVKT6820-31-14 18:25:00 Test Item Value Reference Range Interpretation Comments WBC (test code = WBC) 5.4 3.7-10.4 [facility] HospitalXbnoraoSQCUIVZJMD3572-59-88 18:25:00 Test Item Value Reference Range Interpretation Comments MPV (test code = MPV) 7.2 7.4-10.4 [facility] HospitalCcsgvpyVFNNSIKQJP9737-83-53 18:25:00 Test Item Value Reference Range Interpretation Comments MCHC (test code = MCHC) 33.0 32.0-36.0 [facility] HospitalAhqiwixKVMBRJUUBD6241-40-60 18:25:00 Test Item Value Reference Range Interpretation Comments RDW (test code = RDW) 14.0 11.5-14.5 [facility] HospitalFzmfrlqQMGOOCFDGT1319-86-27 18:25:00 Test Item Value Reference Range Interpretation Comments Platelet (test code = Platelet) 278 133-450 [facility] HospitalRcmhfsxYKZTOGTNJW8958-06-64 18:25:00 Test Item Value Reference Range Interpretation Comments MCH (test code = MCH) 29.0 pg 27.0-31.0 [facility] HospitalUigyfnkCVIJMABMJJ3945-04-40 18:25:00 Test Item Value Reference Range Interpretation Comments MCV (test code = MCV) 87.9 80.0-98.0 [facility] HospitalSkhunqmXLAFZEXGCH5378-97-15 18:25:00 Test Item Value Reference Range Interpretation Comments Hct (test code = Hct) 39.7 36.0-48.0 [facility] HospitalEepyqueIWLFMKRAXC2392-31-07 18:25:00 Test Item Value Reference Range Interpretation Comments Eosinophils (test code = 2.2 See_Comment [A utomated message] The Eosinophils) system which ge nerated this result tra nsmitted reference range : <=4.0. The reference r robbie was not used to int erpret this result as normal/abnormal . [facility] HospitalAwgtwmePTBHHJVRPX0104-83-06 18:25:00 Test Item Value Reference Range Interpretation Comments Segs-Bands # (test code = Segs-Bands #) 2.8 1.5-8.1 [facility] HospitalYxvekbvPEIGHNZKLG3847-88-36 18:25:00 Test Item Value Reference Range Interpretation Comments Basophils (test code = 0.9 See_Comment [Aut omated message] The Basophils) system which ge nerated this result tra nsmitted reference range : <=1.0. The reference r robbie was not used to int erpret this result as normal/abnormal . [facility] HospitalVtzugfmILVPEYZIXJ2618-75-09 18:25:00 Test Item Value Reference Range Interpretation Comments Lymphocytes # (test code = Lymphocytes 2.1 1.0-5.5 #) [facility] HospitalLbomwmyPOCFNZQVGA0949-65-03 18:25:00 Test Item Value Reference Range Interpretation Comments Segs (test code = Segs) 52.3 45.0-75.0 [facility] HospitalSdmwestWCJTRVBFXV4536-62-75 18:25:00 Test Item Value Reference Range Interpretation Comments Lymphocytes (test code = Lymphocytes) 38.0 20.0-40.0 [facility] HospitalMsjoeodCFKVJJENNO4803-27-95 18:25:00 Test Item Value Reference Range Interpretation Comments Monocytes (test code = Monocytes) 6.6 2.0-12.0 [facility] HospitalEvideukASGZTIJWBU0286-80-85 18:25:00 Test Item Value Reference Range Interpretation Comments Basophils # (test code 0.1 See_Comment [Aut omated message] The = Basophils #) system which generated this result tra nsmitted reference range : <=0.2. The reference r robbie was not used to int erpret this result as normal/abnormal . [facility] HospitalQwtdjibGJHPTFMBRN6046-71-31 18:25:00 Test Item Value Reference Range Interpretation Comments Eosinophils # (test code 0.1 See_Comment [A utomated message] The = Eosinophils #) system whic h generated this result tra nsmitted reference range : <=0.5. The reference r robbie was not used to int erpret this result as normal/abnormal . [facility] HospitalKshpruuSLAEKRNAPB4913-96-10 18:25:00 Test Item Value Reference Range Interpretation Comments Monocytes # (test code 0.4 See_Comment [Aut omated message] The = Monocytes #) system which generated this result tra nsmitted reference range : <=0.8. The reference r robbie was not used to int erpret this result as normal/abnormal . [facility] KWHWKHL5395-97-88 18:25:00 Test Item Value Reference Range Interpretation Comments ABO/Rh (test code = ABO/Rh) [facility] BAWUGQO2840-17-28 18:25:00 Test Item Value Reference Range Interpretation Comments Antibody Scrn (test Negative (10/28/16 12:25 code = Antibody Scrn) PM) [facility] ArlingtonCHE[facility] NARCF3858-42-27 18:25:00 Test Item Value Reference Range Interpretation Comments Magnesium Lvl (test code = Magnesium 1.9 1.8-2.4 Lvl) [facility] CenterYjohshoIWZZQLUUOKWB5128-68-52 18:25:00 Test Item Value Reference Range Interpretation Comments Potassium Lvl (test code = Potassium 4.4 3.5-5.1 Lvl) [facility] CenterAjqngfjQJWEZPOSKKEJ2720-98-57 18:25:00 Test Item Value Reference Range Interpretation Comments Calcium Lvl (test code = Calcium Lvl) 9.4 8.5-10.5 [facility] CenterLsnsbnfPDDRAOQGKIXF4667-03-67 18:25:00 Test Item Value Reference Range Interpretation Comments CO2 (test code = CO2) 31 24-32 [facility] CenterPhnfbdhHNHVIJJKJPDE8071-09-60 18:25:00 Test Item Value Reference Range Interpretation Comments Chloride Lvl (test code = Chloride Lvl) 103 95-109 [facility] CenterVsdddsvHGMDIXMCIGYF7826-76-66 18:25:00 Test Item Value Reference Range Interpretation Comments eGFR (test code = eGFR) 55 [facility] CenterMkyjnfgEOZLNEKWCGDQ4473-16-03 18:25:00 Test Item Value Reference Range Interpretation Comments Sodium Lvl (test code = Sodium Lvl) 141 135-145 [facility] CenterUuwfksfFIVLSRTVZCKO7585-02-28 18:25:00 Test Item Value Reference Range Interpretation Comments Creatinine Lvl (test code = Creatinine 0.97 0.50-1.40 Lvl) [facility] CenterWiqfzdtFWVVHCANOXYN0305-93-52 18:25:00 Test Item Value Reference Range Interpretation Comments BUN (test code = BUN) 24 7-22 [facility] CenterHvyrilmIDKVOYJNCFHX2537-43-03 18:25:00 Test Item Value Reference Range Interpretation Comments Glucose Lvl (test code = Glucose Lvl) 108 70-99 [facility] CenterHrgsbttSQSOTRNIAGPW4566-48-04 18:25:00 Test Item Value Reference Range Interpretation Comments AGAP (test code = AGAP) 11.4 10.0-20.0 [facility] HospitalCuoninoESSCPIWNBF9351-84-10 18:25:00 Test Item Value Reference Range Interpretation Comments INR (test code = INR) 1.10 0.85-1.17 [facility] HospitalHzltmxgCKYAVQCAKB0718-82-00 18:25:00 Test Item Value Reference Range Interpretation Comments PT (test code = PT) 14.4 s 12.0-14.7 [facility] HospitalTzvobyvRENUUPOTTC2299-50-89 18:25:00 Test Item Value Reference Range Interpretation Comments PTT (test code = PTT) 30.3 s 22.9-35.8 [facility] HospitalPfcumgxWRWBMTOCIL4925-51-62 18:25:00 Test Item Value Reference Range Interpretation Comments Hgb (test code = Hgb) 13.1 12.0-16.0 [facility] HospitalRuerfvzGTGQBDRYTU6674-73-65 18:25:00 Test Item Value Reference Range Interpretation Comments RBC (test code = RBC) 4.51 4.20-5.40 [facility] HospitalBxgfpxhAQINDHHBRU3005-50-68 18:25:00 Test Item Value Reference Range Interpretation Comments WBC (test code = WBC) 5.4 3.7-10.4 [facility] HospitalTwarityUNUWXVJYKP7218-08-92 18:25:00 Test Item Value Reference Range Interpretation Comments MPV (test code = MPV) 7.2 7.4-10.4 [facility] HospitalGoeheqyGLKGXOCOXL9760-22-45 18:25:00 Test Item Value Reference Range Interpretation Comments MCHC (test code = MCHC) 33.0 32.0-36.0 [facility] HospitalBmmbibyDTVMYUUJHJ9228-50-04 18:25:00 Test Item Value Reference Range Interpretation Comments RDW (test code = RDW) 14.0 11.5-14.5 [facility] HospitalZzuqaueFRIJRJWYYN5417-00-92 18:25:00 Test Item Value Reference Range Interpretation Comments Platelet (test code = Platelet) 278 133-450 [facility] HospitalSvaghvsFWSQODSLIM6624-08-88 18:25:00 Test Item Value Reference Range Interpretation Comments MCH (test code = MCH) 29.0 pg 27.0-31.0 [facility] HospitalWiznfcfTPFFVRFWDR9077-37-88 18:25:00 Test Item Value Reference Range Interpretation Comments MCV (test code = MCV) 87.9 80.0-98.0 [facility] HospitalLcpmnwcLHZRHDLOMV3277-89-29 18:25:00 Test Item Value Reference Range Interpretation Comments Hct (test code = Hct) 39.7 36.0-48.0 [facility] HospitalKgaxqhqGHVXHCAWSB6953-96-63 18:25:00 Test Item Value Reference Range Interpretation Comments Eosinophils (test code = 2.2 See_Comment [A utomated message] The Eosinophils) system which ge nerated this result tra nsmitted reference range : <=4.0. The reference r robbie was not used to int erpret this result as normal/abnormal . [facility] HospitalYlyodwrFVVORHRJLN5957-36-84 18:25:00 Test Item Value Reference Range Interpretation Comments Segs-Bands # (test code = Segs-Bands #) 2.8 1.5-8.1 [facility] HospitalPpmtrqzSACVYMVCEW5495-18-08 18:25:00 Test Item Value Reference Range Interpretation Comments Basophils (test code = 0.9 See_Comment [Aut omated message] The Basophils) system which ge nerated this result tra nsmitted reference range : <=1.0. The reference r robbie was not used to int erpret this result as normal/abnormal . [facility] HospitalDccafvjVFAUQRXNTP8802-80-01 18:25:00 Test Item Value Reference Range Interpretation Comments Lymphocytes # (test code = Lymphocytes 2.1 1.0-5.5 #) [facility] HospitalXuafkilJHTFVTNHVS0651-67-04 18:25:00 Test Item Value Reference Range Interpretation Comments Segs (test code = Segs) 52.3 45.0-75.0 [facility] HospitalMzfvhshJICJVGMTXA2461-75-68 18:25:00 Test Item Value Reference Range Interpretation Comments Lymphocytes (test code = Lymphocytes) 38.0 20.0-40.0 [facility] HospitalJqtyrvgAOAANPZBSO2695-45-81 18:25:00 Test Item Value Reference Range Interpretation Comments Monocytes (test code = Monocytes) 6.6 2.0-12.0 [facility] HospitalUmgkwzbGTBXBVCXBB8736-50-35 18:25:00 Test Item Value Reference Range Interpretation Comments Basophils # (test code 0.1 See_Comment [Aut omated message] The = Basophils #) system which generated this result tra nsmitted reference range : <=0.2. The reference r robbie was not used to int erpret this result as normal/abnormal . [facility] HospitalQlyquryDQOBANLKDX6152-51-49 18:25:00 Test Item Value Reference Range Interpretation Comments Eosinophils # (test code 0.1 See_Comment [A utomated message] The = Eosinophils #) system whic h generated this result tra nsmitted reference range : <=0.5. The reference r robbie was not used to int erpret this result as normal/abnormal . [facility] ArlingtonDyxshlwVEGUZBEMLB1366-15-99 18:25:00 Test Item Value Reference Range Interpretation Comments Monocytes # (test code 0.4 See_Comment [Aut omated message] The = Monocytes #) system which generated this result tra nsmitted reference range : <=0.8. The reference r robbie was not used to int erpret this result as normal/abnormal . [facility] GJDRZST0028-70-72 18:25:00 Test Item Value Reference Range Interpretation Comments ABO/Rh (test code = ABO/Rh) O POS [facility] ZMUTDWQ0716-09-93 18:25:00 Test Item Value Reference Range Interpretation Comments Antibody Scrn (test Negative (10/28/16 12:25 code = Antibody Scrn) PM) [facility] HospitalBioDigitalCHEM [id number] 18:25:00 Test Item Value Reference Range Interpretation Comments Magnesium Lvl (test code = Magnesium 1.9 1.8-2.4 Lvl) [facility] CenterLyzqcxdCNDQWQOJZWUC1816-44-40 18:25:00 Test Item Value Reference Range Interpretation Comments Potassium Lvl (test code = Potassium 4.4 3.5-5.1 Lvl) [facility] CenterLcxfbguCXJGGXPZMUXN9829-79-74 18:25:00 Test Item Value Reference Range Interpretation Comments Calcium Lvl (test code = Calcium Lvl) 9.4 8.5-10.5 [facility] CenterFkowztkRFVUZCEMTAXQ0358-28-45 18:25:00 Test Item Value Reference Range Interpretation Comments CO2 (test code = CO2) 31 24-32 [facility] CenterHhngwvcMFSZOUODVPGC1299-14-62 18:25:00 Test Item Value Reference Range Interpretation Comments Chloride Lvl (test code = Chloride Lvl) 103 95-109 [facility] CenterQeweywxKJNWGTUXEFFL8020-48-65 18:25:00 Test Item Value Reference Range Interpretation Comments eGFR (test code = eGFR) 55 [facility] CenterBptleyqTVODMJWXTKUL3596-22-88 18:25:00 Test Item Value Reference Range Interpretation Comments Sodium Lvl (test code = Sodium Lvl) 141 135-145 [facility] CenterJterunbNYGEYJHEBLQA8248-50-09 18:25:00 Test Item Value Reference Range Interpretation Comments Creatinine Lvl (test code = Creatinine 0.97 0.50-1.40 Lvl) [facility] CenterWnvtzrnDLGZHQSDMJOX4306-41-15 18:25:00 Test Item Value Reference Range Interpretation Comments BUN (test code = BUN) 24 7-22 [facility] CenterKspgwmjBEXLZHABHYRA6080-49-40 18:25:00 Test Item Value Reference Range Interpretation Comments Glucose Lvl (test code = Glucose Lvl) 108 70-99 [facility] CenterSyckxkaTYLQMVXGOYCI4633-48-44 18:25:00 Test Item Value Reference Range Interpretation Comments AGAP (test code = AGAP) 11.4 10.0-20.0 [facility]GytiaozVHGPHFGZJF5598-58-94 18:25:00 Test Item Value Reference Range Interpretation Comments INR (test code = INR) 1.10 0.85-1.17 [facility] HospitalMpnecqdHZUXYFYHBR7972-58-75 18:25:00 Test Item Value Reference Range Interpretation Comments PT (test code = PT) 14.4 s 12.0-14.7 [facility] HospitalAioiooeBWYQUSYMQS9003-06-61 18:25:00 Test Item Value Reference Range Interpretation Comments PTT (test code = PTT) 30.3 s 22.9-35.8 [facility] HospitalHyneimnDOASMPDKLD6611-73-03 18:25:00 Test Item Value Reference Range Interpretation Comments Hgb (test code = Hgb) 13.1 12.0-16.0 [facility] HospitalRxjgxwmVMVNONSSEU6482-66-67 18:25:00 Test Item Value Reference Range Interpretation Comments RBC (test code = RBC) 4.51 4.20-5.40 [facility] HospitalUvcmeruHXKNVPNYDO9909-05-80 18:25:00 Test Item Value Reference Range Interpretation Comments WBC (test code = WBC) 5.4 3.7-10.4 [facility] HospitalQanacdbZIDGTRJWZT6910-19-22 18:25:00 Test Item Value Reference Range Interpretation Comments MPV (test code = MPV) 7.2 7.4-10.4 [facility] HospitalYqqxoltVUZIDWLVOY2781-42-70 18:25:00 Test Item Value Reference Range Interpretation Comments MCHC (test code = MCHC) 33.0 32.0-36.0 [facility] HospitalLqzqjyyKXLZCNTPWF8856-03-34 18:25:00 Test Item Value Reference Range Interpretation Comments RDW (test code = RDW) 14.0 11.5-14.5 [facility] HospitalUyhbhlcZHRXSOBWWH8598-76-26 18:25:00 Test Item Value Reference Range Interpretation Comments Platelet (test code = Platelet) 278 133-450 [facility] HospitalFjdbydcCCUGJGLBCA1110-26-57 18:25:00 Test Item Value Reference Range Interpretation Comments MCH (test code = MCH) 29.0 pg 27.0-31.0 [facility] HospitalUaiwutxCCSEGNJDWA0621-79-63 18:25:00 Test Item Value Reference Range Interpretation Comments MCV (test code = MCV) 87.9 80.0-98.0 [facility] HospitalDybenzsTFWSJPLSOC0898-75-23 18:25:00 Test Item Value Reference Range Interpretation Comments Hct (test code = Hct) 39.7 36.0-48.0 [facility] HospitalXukxuigONVTTAQNMZ8466-39-97 18:25:00 Test Item Value Reference Range Interpretation Comments Eosinophils (test code = 2.2 See_Comment [A utomated message] The Eosinophils) system which ge nerated this result tra nsmitted reference range : <=4.0. The reference r robbie was not used to int erpret this result as normal/abnormal . [facility] HospitalTrdprlzEKBIKVUIMN7435-54-94 18:25:00 Test Item Value Reference Range Interpretation Comments Segs-Bands # (test code = Segs-Bands #) 2.8 1.5-8.1 [facility] HospitalRcvbrnoBBXREQHPHM8556-30-52 18:25:00 Test Item Value Reference Range Interpretation Comments Basophils (test code = 0.9 See_Comment [Aut omated message] The Basophils) system which ge nerated this result tra nsmitted reference range : <=1.0. The reference r robbie was not used to int erpret this result as normal/abnormal . [facility] HospitalPoftyopFCEEXRGNEQ0400-62-98 18:25:00 Test Item Value Reference Range Interpretation Comments Lymphocytes # (test code = Lymphocytes 2.1 1.0-5.5 #) [facility] HospitalZtxhlntICEQQZFWWY3955-29-05 18:25:00 Test Item Value Reference Range Interpretation Comments Segs (test code = Segs) 52.3 45.0-75.0 [facility] HospitalYaeofpmWXOAJNNFCQ2720-52-67 18:25:00 Test Item Value Reference Range Interpretation Comments Lymphocytes (test code = Lymphocytes) 38.0 20.0-40.0 [facility] HospitalZguhneeGCOBPTJUWI6885-65-82 18:25:00 Test Item Value Reference Range Interpretation Comments Monocytes (test code = Monocytes) 6.6 2.0-12.0 [facility] HospitalJhgyinpCIVGCSOWVG3289-74-60 18:25:00 Test Item Value Reference Range Interpretation Comments Basophils # (test code 0.1 See_Comment [Aut omated message] The = Basophils #) system which generated this result tra nsmitted reference range : <=0.2. The reference r robbie was not used to int erpret this result as normal/abnormal . [facility] HospitalUenriacYTUXAMLUKM1426-10-19 18:25:00 Test Item Value Reference Range Interpretation Comments Eosinophils # (test code 0.1 See_Comment [A utomated message] The = Eosinophils #) system whic h generated this result tra nsmitted reference range : <=0.5. The reference r robbie was not used to int erpret this result as normal/abnormal . [facility]QjjjzknWLMNXOAYJI7731-44-21 18:25:00 Test Item Value Reference Range Interpretation Comments Monocytes # (test code 0.4 See_Comment [Aut omated message] The = Monocytes #) system which generated this result tra nsmitted reference range : <=0.8. The reference r robbie was not used to int erpret this result as normal/abnormal . [facility] Callystro UGPVILU6390-00-39 18:25:00 Test Item Value Reference Range Interpretation Comments ABO/Rh (test code = ABO/Rh) O POS [facility] PEDJZLW2314-24-39 18:25:00 Test Item Value Reference Range Interpretation Comments Antibody Scrn (test Negative (10/28/16 12:25 code = Antibody Scrn) PM) [facility]Smart[facility] VRPYI5475-90-64 18:25:00 Test Item Value Reference Range Interpretation Comments Magnesium Lvl (test code = Magnesium 1.9 1.8-2.4 Lvl) [facility] CenterAwzqwwyFKHUZVZCIEQS0802-12-88 18:25:00 Test Item Value Reference Range Interpretation Comments Potassium Lvl (test code = Potassium 4.4 3.5-5.1 Lvl) [facility] CenterPdapmtcDCNGUDEIBCSK9148-28-69 18:25:00 Test Item Value Reference Range Interpretation Comments Calcium Lvl (test code = Calcium Lvl) 9.4 8.5-10.5 [facility] CenterQifzoakSZEDJKMETVKL1865-81-41 18:25:00 Test Item Value Reference Range Interpretation Comments CO2 (test code = CO2) 31 24-32 [facility] CenterPmgzwgaHQQMFQIEOAZJ4450-55-25 18:25:00 Test Item Value Reference Range Interpretation Comments Chloride Lvl (test code = Chloride Lvl) 103 95-109 [facility] CenterGaxjnukCSTRVFDCOVVS6468-20-57 18:25:00 Test Item Value Reference Range Interpretation Comments eGFR (test code = eGFR) 55 [facility] CenterSlypmktJGZYWCGTTNGW7861-55-24 18:25:00 Test Item Value Reference Range Interpretation Comments Sodium Lvl (test code = Sodium Lvl) 141 135-145 [facility] CenterFezytgcUKLBAFJPNFZR4820-34-81 18:25:00 Test Item Value Reference Range Interpretation Comments Creatinine Lvl (test code = Creatinine 0.97 0.50-1.40 Lvl) [facility] CenterOoxtfykWGBAFUUHLMUC4799-69-47 18:25:00 Test Item Value Reference Range Interpretation Comments BUN (test code = BUN) 24 7-22 [facility] CenterPbfjkpqLOOHSPAQBFRM0610-64-13 18:25:00 Test Item Value Reference Range Interpretation Comments Glucose Lvl (test code = Glucose Lvl) 108 70-99 [facility] CenterRzoiiekWYAXBHOYUEPE3692-50-05 18:25:00 Test Item Value Reference Range Interpretation Comments AGAP (test code = AGAP) 11.4 10.0-20.0 [facility] HospitalHegjngjJLQEXQHHZB6218-22-24 18:25:00 Test Item Value Reference Range Interpretation Comments INR (test code = INR) 1.10 0.85-1.17 [facility] HospitalPizlggpHKPLLTZBSC7198-61-30 18:25:00 Test Item Value Reference Range Interpretation Comments PT (test code = PT) 14.4 s 12.0-14.7 [facility] HospitalKvttfomJEEJPHLDRH9202-16-68 18:25:00 Test Item Value Reference Range Interpretation Comments PTT (test code = PTT) 30.3 s 22.9-35.8 [facility] HospitalRvpnrhuKMRRCMMYGO4364-45-86 18:25:00 Test Item Value Reference Range Interpretation Comments Hgb (test code = Hgb) 13.1 12.0-16.0 [facility] HospitalAecwdanMQMCIUCDFZ0800-92-68 18:25:00 Test Item Value Reference Range Interpretation Comments RBC (test code = RBC) 4.51 4.20-5.40 [facility] HospitalWlsstepSUXUQUFESQ6966-76-83 18:25:00 Test Item Value Reference Range Interpretation Comments WBC (test code = WBC) 5.4 3.7-10.4 [facility] HospitalVhiodxqRQTFIJFSLE8149-35-69 18:25:00 Test Item Value Reference Range Interpretation Comments MPV (test code = MPV) 7.2 7.4-10.4 [facility] HospitalOwgfsyuVZFDSYQYOU8730-37-12 18:25:00 Test Item Value Reference Range Interpretation Comments MCHC (test code = MCHC) 33.0 32.0-36.0 [facility] HospitalDgijtjsOFPELPCCCC9017-57-01 18:25:00 Test Item Value Reference Range Interpretation Comments RDW (test code = RDW) 14.0 11.5-14.5 [facility] HospitalKbfujagHSMGVUIVSA8742-43-91 18:25:00 Test Item Value Reference Range Interpretation Comments Platelet (test code = Platelet) 278 133-450 [facility] HospitalAoibshvWVMWBEPKCY2701-54-83 18:25:00 Test Item Value Reference Range Interpretation Comments MCH (test code = MCH) 29.0 pg 27.0-31.0 [facility] HospitalHamvkgdZEOZGUCDKR7345-05-64 18:25:00 Test Item Value Reference Range Interpretation Comments MCV (test code = MCV) 87.9 80.0-98.0 [facility] HospitalEinpgucFZDYTXKEJJ9226-75-09 18:25:00 Test Item Value Reference Range Interpretation Comments Hct (test code = Hct) 39.7 36.0-48.0 [facility] HospitalBkbdffiARJKPBQUTF9387-44-20 18:25:00 Test Item Value Reference Range Interpretation Comments Eosinophils (test code = 2.2 See_Comment [A utomated message] The Eosinophils) system which ge nerated this result tra nsmitted reference range : <=4.0. The reference r robbie was not used to int erpret this result as normal/abnormal . [facility] HospitalVxlpfoyLJZGIBTFOS5951-91-93 18:25:00 Test Item Value Reference Range Interpretation Comments Segs-Bands # (test code = Segs-Bands #) 2.8 1.5-8.1 [facility] HospitalMtanttnGKQQLBCWNU0032-31-06 18:25:00 Test Item Value Reference Range Interpretation Comments Basophils (test code = 0.9 See_Comment [Aut omated message] The Basophils) system which ge nerated this result tra nsmitted reference range : <=1.0. The reference r robbie was not used to int erpret this result as normal/abnormal . [facility] HospitalKjzormvPWKZAETMOK6729-82-01 18:25:00 Test Item Value Reference Range Interpretation Comments Lymphocytes # (test code = Lymphocytes 2.1 1.0-5.5 #) [facility] HospitalYmdddqlITCKKWNWZZ5811-81-65 18:25:00 Test Item Value Reference Range Interpretation Comments Segs (test code = Segs) 52.3 45.0-75.0 [facility] HospitalYjmzyuaXMJXREBTVX5222-02-65 18:25:00 Test Item Value Reference Range Interpretation Comments Lymphocytes (test code = Lymphocytes) 38.0 20.0-40.0 [facility] HospitalPwuwpbdCYSOHGLVOS6663-80-19 18:25:00 Test Item Value Reference Range Interpretation Comments Monocytes (test code = Monocytes) 6.6 2.0-12.0 [facility] HospitalLufsrdrWQFVRANQZM3408-71-29 18:25:00 Test Item Value Reference Range Interpretation Comments Basophils # (test code 0.1 See_Comment [Aut omated message] The = Basophils #) system which generated this result tra nsmitted reference range : <=0.2. The reference r robbie was not used to int erpret this result as normal/abnormal . [facility] HospitalJnjqqgjQOPEPIVAAX7458-76-07 18:25:00 Test Item Value Reference Range Interpretation Comments Eosinophils # (test code 0.1 See_Comment [A utomated message] The = Eosinophils #) system whic h generated this result tra nsmitted reference range : <=0.5. The reference r robbie was not used to int erpret this result as normal/abnormal . [facility] HospitalCmumlopUTGUDWEOVB8784-68-80 18:25:00 Test Item Value Reference Range Interpretation Comments Monocytes # (test code 0.4 See_Comment [Aut omated message] The = Monocytes #) system which generated this result tra nsmitted reference range : <=0.8. The reference r robbie was not used to int erpret this result as normal/abnormal . [facility] SGXIPZI8942-21-44 18:25:00 Test Item Value Reference Range Interpretation Comments ABO/Rh (test code = ABO/Rh) O POS [facility] ZWXCVCH7137-32-27 18:25:00 Test Item Value Reference Range Interpretation Comments Antibody Scrn (test Negative (10/28/16 12:25 code = Antibody Scrn) PM) [facility] ArlingtonCHE[facility] XAYUC6083-33-74 18:25:00 Test Item Value Reference Range Interpretation Comments Magnesium Lvl (test code = Magnesium 1.9 1.8-2.4 Lvl) [facility] CenterAslzdqvXRQNJPTZNJFJ0633-14-79 18:25:00 Test Item Value Reference Range Interpretation Comments Potassium Lvl (test code = Potassium 4.4 3.5-5.1 Lvl) [facility] CenterExadzjmXRHRNGSYCWAN1454-02-83 18:25:00 Test Item Value Reference Range Interpretation Comments Calcium Lvl (test code = Calcium Lvl) 9.4 8.5-10.5 [facility]VbygburGDCXVOQIMXSN6499-66-00 18:25:00 Test Item Value Reference Range Interpretation Comments CO2 (test code = CO2) 31 24-32 [facility] CenterPztuiruPSXCANANOMQB1701-64-22 18:25:00 Test Item Value Reference Range Interpretation Comments Chloride Lvl (test code = Chloride Lvl) 103 95-109 [facility] CenterJmpibppUXUYEHZSHOSX0660-27-89 18:25:00 Test Item Value Reference Range Interpretation Comments eGFR (test code = eGFR) 55 [facility] CenterLcfuycuCFNDLZKVMWSC9385-51-03 18:25:00 Test Item Value Reference Range Interpretation Comments Sodium Lvl (test code = Sodium Lvl) 141 135-145 [facility] CenterXcemghkUHHHGVWJNFJS8749-04-38 18:25:00 Test Item Value Reference Range Interpretation Comments Creatinine Lvl (test code = Creatinine 0.97 0.50-1.40 Lvl) [facility]ZqaunhyKUPOTUFLDMRW1761-97-61 18:25:00 Test Item Value Reference Range Interpretation Comments BUN (test code = BUN) 24 7-22 [facility] CenterTvqfccsWDPGSANMWTDS5525-32-16 18:25:00 Test Item Value Reference Range Interpretation Comments Glucose Lvl (test code = Glucose Lvl) 108 70-99 [facility] CenterXnehlqsRIIRAUZBTCXA1505-06-66 18:25:00 Test Item Value Reference Range Interpretation Comments AGAP (test code = AGAP) 11.4 10.0-20.0 [facility] HospitalIxhzcenFVEPLZNKGD0388-65-81 18:25:00 Test Item Value Reference Range Interpretation Comments INR (test code = INR) 1.10 0.85-1.17 [facility] HospitalFbydiieYLWVVMOAJS0913-16-98 18:25:00 Test Item Value Reference Range Interpretation Comments PT (test code = PT) 14.4 s 12.0-14.7 [facility] HospitalIttwxdjUSEBITLAZN5988-32-98 18:25:00 Test Item Value Reference Range Interpretation Comments PTT (test code = PTT) 30.3 s 22.9-35.8 [facility] HospitalRhkalmtYOEJONQKYL4890-71-66 18:25:00 Test Item Value Reference Range Interpretation Comments Hgb (test code = Hgb) 13.1 12.0-16.0 [facility] HospitalAphdrdhKOESWJSPCF4135-04-21 18:25:00 Test Item Value Reference Range Interpretation Comments RBC (test code = RBC) 4.51 4.20-5.40 [facility] HospitalLnsndhkPENEBKLSYC6432-05-21 18:25:00 Test Item Value Reference Range Interpretation Comments WBC (test code = WBC) 5.4 3.7-10.4 [facility] HospitalMkacogcVLORMJSAUV1711-69-01 18:25:00 Test Item Value Reference Range Interpretation Comments MPV (test code = MPV) 7.2 7.4-10.4 [facility] HospitalHwqjnuvTXCVGHDZRU4501-68-82 18:25:00 Test Item Value Reference Range Interpretation Comments MCHC (test code = MCHC) 33.0 32.0-36.0 [facility] HospitalTyjwsawRSFCODYGYI9213-00-92 18:25:00 Test Item Value Reference Range Interpretation Comments RDW (test code = RDW) 14.0 11.5-14.5 [facility] HospitalOdjwjviUHNYYUHJFR2924-71-37 18:25:00 Test Item Value Reference Range Interpretation Comments Platelet (test code = Platelet) 278 133-450 [facility] HospitalVwelvavNUQSTDQYFE0047-69-01 18:25:00 Test Item Value Reference Range Interpretation Comments MCH (test code = MCH) 29.0 pg 27.0-31.0 [facility] HospitalOrimwlaNVAQYZVLCX8394-64-26 18:25:00 Test Item Value Reference Range Interpretation Comments MCV (test code = MCV) 87.9 80.0-98.0 [facility] HospitalZomqxtcBKPPVCRRNB7745-24-02 18:25:00 Test Item Value Reference Range Interpretation Comments Hct (test code = Hct) 39.7 36.0-48.0 [facility] HospitalUcuhweiTUCAWUOXFX4685-47-83 18:25:00 Test Item Value Reference Range Interpretation Comments Eosinophils (test code = 2.2 See_Comment [A utomated message] The Eosinophils) system which ge nerated this result tra nsmitted reference range : <=4.0. The reference r robbie was not used to int erpret this result as normal/abnormal . [facility] HospitalKwowwwiTWODNXFYTW6165-71-65 18:25:00 Test Item Value Reference Range Interpretation Comments Segs-Bands # (test code = Segs-Bands #) 2.8 1.5-8.1 [facility] HospitalPjhtcaoMDJWAQNXGS1260-93-92 18:25:00 Test Item Value Reference Range Interpretation Comments Basophils (test code = 0.9 See_Comment [Aut omated message] The Basophils) system which ge nerated this result tra nsmitted reference range : <=1.0. The reference r robbie was not used to int erpret this result as normal/abnormal . [facility] HospitalUoppvsuSXAOBPPBUZ0191-42-72 18:25:00 Test Item Value Reference Range Interpretation Comments Lymphocytes # (test code = Lymphocytes 2.1 1.0-5.5 #) [facility] HospitalLztjhwiSJINZILNJF2031-21-10 18:25:00 Test Item Value Reference Range Interpretation Comments Segs (test code = Segs) 52.3 45.0-75.0 [facility] HospitalKnhlivmIFQPPGVKUD8630-73-11 18:25:00 Test Item Value Reference Range Interpretation Comments Lymphocytes (test code = Lymphocytes) 38.0 20.0-40.0 [facility] HospitalAnjacpyMDMBPTIPSN5765-91-18 18:25:00 Test Item Value Reference Range Interpretation Comments Monocytes (test code = Monocytes) 6.6 2.0-12.0 [facility] HospitalOqzyjeuBNBDOLWWFS8096-18-05 18:25:00 Test Item Value Reference Range Interpretation Comments Basophils # (test code 0.1 See_Comment [Aut omated message] The = Basophils #) system which generated this result tra nsmitted reference range : <=0.2. The reference r robbie was not used to int erpret this result as normal/abnormal . [facility] HospitalGdzeytnAYACPJQEFB1334-47-76 18:25:00 Test Item Value Reference Range Interpretation Comments Eosinophils # (test code 0.1 See_Comment [A utomated message] The = Eosinophils #) system whic h generated this result tra nsmitted reference range : <=0.5. The reference r robbie was not used to int erpret this result as normal/abnormal . [facility] HospitalQrinibqJRYJVSBPGZ2341-90-13 18:25:00 Test Item Value Reference Range Interpretation Comments Monocytes # (test code 0.4 See_Comment [Aut omated message] The = Monocytes #) system which generated this result tra nsmitted reference range : <=0.8. The reference r robbie was not used to int erpret this result as normal/abnormal . [facility] ArlingtonKamelio CVAUD5501-72-85 08:58:00 Test Item Value Reference Range Interpretation Comments Phosphorus (test code = Phosphorus) 2.9 2.5-4.5 [facility] ArlingtonKamelio KQDWY9472-84-42 08:58:00 Test Item Value Reference Range Interpretation Comments Magnesium Lvl (test code = Magnesium 2.4 1.8-2.4 Lvl) [facility] CenterBudeiepQSFEVALZLSZX1893-90-32 08:58:00 Test Item Value Reference Range Interpretation Comments Sodium Lvl (test code = Sodium Lvl) 139 135-145 [facility] CenterZzxwiwjNEPVTCHJMEAY6662-49-88 08:58:00 Test Item Value Reference Range Interpretation Comments Creatinine Lvl (test code = Creatinine 1.14 0.50-1.40 Lvl) [facility] CenterSpyppyuNBMBVDQDCFSF1553-97-90 08:58:00 Test Item Value Reference Range Interpretation Comments Chloride Lvl (test code = Chloride Lvl) 104 95-109 [facility] CenterFbpfyxiQSLCEYPZYAEI5529-88-10 08:58:00 Test Item Value Reference Range Interpretation Comments CO2 (test code = CO2) 28 24-32 [facility] CenterIqgaaijBCBGKBDFWNXV3614-29-81 08:58:00 Test Item Value Reference Range Interpretation Comments Calcium Lvl (test code = Calcium Lvl) 8.7 8.5-10.5 [facility] CenterVqdclnxXFLMFJJBYXME2678-66-48 08:58:00 Test Item Value Reference Range Interpretation Comments Potassium Lvl (test code = Potassium 4.8 3.5-5.1 Lvl) [facility] CenterGxmweteGTGPYXUCYVFX3709-39-34 08:58:00 Test Item Value Reference Range Interpretation Comments AGAP (test code = AGAP) 11.8 10.0-20.0 [facility] CenterWshdvdhFARCEEFZHVQR5599-77-82 08:58:00 Test Item Value Reference Range Interpretation Comments eGFR (test code = eGFR) 45 [facility] CenterXctnxpgGKMPBQZZCIDE4084-71-22 08:58:00 Test Item Value Reference Range Interpretation Comments BUN (test code = BUN) 25 7-22 [facility] CenterGbrwcaeKVXHTAAXONIQ2669-34-00 08:58:00 Test Item Value Reference Range Interpretation Comments Glucose Lvl (test code = Glucose Lvl) 113 70-99 [facility] HospitalWrjsxxiCVIYTCGKEG0377-31-00 08:58:00 Test Item Value Reference Range Interpretation Comments MPV (test code = MPV) 7.8 7.4-10.4 [facility] HospitalVefrlgvXEQMYIKLFO5211-65-30 08:58:00 Test Item Value Reference Range Interpretation Comments Platelet (test code = Platelet) 301 133-450 [facility] HospitalTrpsjyqFRETVJKCOM7326-32-99 08:58:00 Test Item Value Reference Range Interpretation Comments RDW (test code = RDW) 14.1 11.5-14.5 [facility] HospitalHyndbteGJUERCVHHT4841-35-67 08:58:00 Test Item Value Reference Range Interpretation Comments MCH (test code = MCH) 29.9 pg 27.0-31.0 [facility] HospitalRktxyvbDRQEUPHGXF0092-25-79 08:58:00 Test Item Value Reference Range Interpretation Comments MCV (test code = MCV) 89.6 80.0-98.0 [facility] HospitalVnhqfmaENCZQDQJYJ4657-59-31 08:58:00 Test Item Value Reference Range Interpretation Comments MCHC (test code = MCHC) 33.4 32.0-36.0 [facility] HospitalIgzwwnnYHUKGIYYUV6132-64-84 08:58:00 Test Item Value Reference Range Interpretation Comments Hct (test code = Hct) 34.3 36.0-48.0 [facility] HospitalCwfakjhIBCUIRYUSK9748-10-27 08:58:00 Test Item Value Reference Range Interpretation Comments Hgb (test code = Hgb) 11.5 12.0-16.0 [facility]ZoucpphECVNFXDJNO0984-86-45 08:58:00 Test Item Value Reference Range Interpretation Comments RBC (test code = RBC) 3.83 4.20-5.40 [facility] HospitalDfvukkcGKPBLBPQQG9682-92-41 08:58:00 Test Item Value Reference Range Interpretation Comments WBC (test code = WBC) 8.2 3.7-10.4 [facility] HospitalGyaurrlLLYEZYLLJE8003-43-04 08:58:00 Test Item Value Reference Range Interpretation Comments Lymphocytes # (test code = Lymphocytes 1.9 1.0-5.5 #) [facility] HospitalIqjuxunWVWJQDLZBJ5835-49-02 08:58:00 Test Item Value Reference Range Interpretation Comments Segs-Bands # (test code = Segs-Bands #) 5.5 1.5-8.1 [facility] HospitalTndtfoiMNGWTMCSSV5916-60-30 08:58:00 Test Item Value Reference Range Interpretation Comments Eosinophils (test code = 1.4 See_Comment [A utomated message] The Eosinophils) system which ge nerated this result tra nsmitted reference range : <=4.0. The reference r robbie was not used to int erpret this result as normal/abnormal . [facility] HospitalNabyswwUWNVACTSIM2695-48-01 08:58:00 Test Item Value Reference Range Interpretation Comments Basophils (test code = 0.5 See_Comment [Aut omated message] The Basophils) system which ge nerated this result tra nsmitted reference range : <=1.0. The reference r robbie was not used to int erpret this result as normal/abnormal . [facility] HospitalYigafwjJXLCZNRDQT1133-63-29 08:58:00 Test Item Value Reference Range Interpretation Comments Monocytes (test code = Monocytes) 9.1 2.0-12.0 [facility] HospitalUxnwozrTEIIMSPIWS9571-06-64 08:58:00 Test Item Value Reference Range Interpretation Comments Segs (test code = Segs) 66.2 45.0-75.0 [facility] HospitalJayhkibMQMZVUQCVZ8574-44-73 08:58:00 Test Item Value Reference Range Interpretation Comments Lymphocytes (test code = Lymphocytes) 22.8 20.0-40.0 [facility] HospitalLfuyshfYFHNIMZDTC2718-48-35 08:58:00 Test Item Value Reference Range Interpretation Comments Eosinophils # (test code 0.1 See_Comment [A utomated message] The = Eosinophils #) system whic h generated this result tra nsmitted reference range : <=0.5. The reference r robbie was not used to int erpret this result as normal/abnormal . [facility] ArlingtonRpizssnSNWHJRETAE8101-94-17 08:58:00 Test Item Value Reference Range Interpretation Comments Monocytes # (test code 0.7 See_Comment [Aut omated message] The = Monocytes #) system which generated this result tra nsmitted reference range : <=0.8. The reference r robbie was not used to int erpret this result as normal/abnormal . [facility] ArlingtonCHEM HWEPN1681-07-43 08:58:00 Test Item Value Reference Range Interpretation Comments Phosphorus (test code = Phosphorus) 2.9 2.5-4.5 [facility] ArlingtonCHEM RNNYF8090-37-17 08:58:00 Test Item Value Reference Range Interpretation Comments Magnesium Lvl (test code = Magnesium 2.4 1.8-2.4 Lvl) [facility]TfchzaeHBWTDMHVWPWZ2588-18-39 08:58:00 Test Item Value Reference Range Interpretation Comments Sodium Lvl (test code = Sodium Lvl) 139 135-145 [facility] CenterBykdpsmDYJLZYEXUEHC8534-54-69 08:58:00 Test Item Value Reference Range Interpretation Comments Creatinine Lvl (test code = Creatinine 1.14 0.50-1.40 Lvl) [facility] CenterPyqippsGMCSDQVWFNCO5305-87-33 08:58:00 Test Item Value Reference Range Interpretation Comments Chloride Lvl (test code = Chloride Lvl) 104 95-109 [facility] CenterGssfakjDZJWKYZIWRDP4020-87-19 08:58:00 Test Item Value Reference Range Interpretation Comments CO2 (test code = CO2) 28 24-32 [facility] CenterDalyksmGKQBEPBKYYRT3262-01-94 08:58:00 Test Item Value Reference Range Interpretation Comments Calcium Lvl (test code = Calcium Lvl) 8.7 8.5-10.5 [facility] CenterWihruexQWQCEQOWNINJ4358-44-55 08:58:00 Test Item Value Reference Range Interpretation Comments Potassium Lvl (test code = Potassium 4.8 3.5-5.1 Lvl) [facility] CenterVuuqubyQHYSNMHZNUSQ1133-29-70 08:58:00 Test Item Value Reference Range Interpretation Comments AGAP (test code = AGAP) 11.8 10.0-20.0 [facility] CenterBkrlreiJSQKRRDCFGLW6613-22-08 08:58:00 Test Item Value Reference Range Interpretation Comments eGFR (test code = eGFR) 45 [facility] CenterPigjbrcHVVLNMRXHCIW8250-95-65 08:58:00 Test Item Value Reference Range Interpretation Comments BUN (test code = BUN) 25 7-22 [facility] CenterIjyhgsjILMXHOIKSJXD7641-11-49 08:58:00 Test Item Value Reference Range Interpretation Comments Glucose Lvl (test code = Glucose Lvl) 113 70-99 [facility] HospitalOzmurmfVFHWONYUYD4585-46-70 08:58:00 Test Item Value Reference Range Interpretation Comments MPV (test code = MPV) 7.8 7.4-10.4 [facility] HospitalVdalfjsLPHZARRSDR2508-79-95 08:58:00 Test Item Value Reference Range Interpretation Comments Platelet (test code = Platelet) 301 133-450 [facility] HospitalUcirprrDMZBNRSUIH3314-80-32 08:58:00 Test Item Value Reference Range Interpretation Comments RDW (test code = RDW) 14.1 11.5-14.5 [facility] HospitalYsyrnsdYIHGSFPLBE8112-45-83 08:58:00 Test Item Value Reference Range Interpretation Comments MCH (test code = MCH) 29.9 pg 27.0-31.0 [facility] HospitalEjegbiwPZLLYTPKEE8031-67-75 08:58:00 Test Item Value Reference Range Interpretation Comments MCV (test code = MCV) 89.6 80.0-98.0 [facility] HospitalWwjiislGFJKWODRAG2702-64-45 08:58:00 Test Item Value Reference Range Interpretation Comments MCHC (test code = MCHC) 33.4 32.0-36.0 [facility] HospitalBepklhxFGCZCXCFUE7949-60-94 08:58:00 Test Item Value Reference Range Interpretation Comments Hct (test code = Hct) 34.3 36.0-48.0 [facility] HospitalWvsbmggAPWCSAVYMN6245-57-63 08:58:00 Test Item Value Reference Range Interpretation Comments Hgb (test code = Hgb) 11.5 12.0-16.0 [facility] HospitalWyjfxevVIQNIXCXBJ6069-60-94 08:58:00 Test Item Value Reference Range Interpretation Comments RBC (test code = RBC) 3.83 4.20-5.40 [facility] HospitalDzsazamTYLDURVCFY7282-78-94 08:58:00 Test Item Value Reference Range Interpretation Comments WBC (test code = WBC) 8.2 3.7-10.4 [facility] HospitalNlouaijNRNHFVHUXR6631-16-87 08:58:00 Test Item Value Reference Range Interpretation Comments Lymphocytes # (test code = Lymphocytes 1.9 1.0-5.5 #) [facility] HospitalVvapbzcYNUUGWSSKX5801-91-10 08:58:00 Test Item Value Reference Range Interpretation Comments Segs-Bands # (test code = Segs-Bands #) 5.5 1.5-8.1 [facility] HospitalHoyxdnvOHGVLYZPJD0450-28-01 08:58:00 Test Item Value Reference Range Interpretation Comments Eosinophils (test code = 1.4 See_Comment [A utomated message] The Eosinophils) system which ge nerated this result tra nsmitted reference range : <=4.0. The reference r robbie was not used to int erpret this result as normal/abnormal . [facility] HospitalUxasvmjFASLTMCXRV5868-54-14 08:58:00 Test Item Value Reference Range Interpretation Comments Basophils (test code = 0.5 See_Comment [Aut omated message] The Basophils) system which ge nerated this result tra nsmitted reference range : <=1.0. The reference r robbie was not used to int erpret this result as normal/abnormal . [facility] HospitalZvogkwlZUVYZPEZZM2026-37-17 08:58:00 Test Item Value Reference Range Interpretation Comments Monocytes (test code = Monocytes) 9.1 2.0-12.0 [facility] HospitalQdmlaveKYVIINSOOD7034-02-17 08:58:00 Test Item Value Reference Range Interpretation Comments Segs (test code = Segs) 66.2 45.0-75.0 [facility] HospitalBeygnraSHOYXVHJPK8104-86-67 08:58:00 Test Item Value Reference Range Interpretation Comments Lymphocytes (test code = Lymphocytes) 22.8 20.0-40.0 [facility] HospitalRnwzixrAZICUIBRZD0625-56-32 08:58:00 Test Item Value Reference Range Interpretation Comments Eosinophils # (test code 0.1 See_Comment [A utomated message] The = Eosinophils #) system whic h generated this result tra nsmitted reference range : <=0.5. The reference r robbie was not used to int erpret this result as normal/abnormal . [facility] HospitalBercwabLDBVZSFBJK2309-94-93 08:58:00 Test Item Value Reference Range Interpretation Comments Monocytes # (test code 0.7 See_Comment [Aut omated message] The = Monocytes #) system which generated this result tra nsmitted reference range : <=0.8. The reference r robbie was not used to int erpret this result as normal/abnormal . [facility] YBHSE4558-20-65 08:58:00 Test Item Value Reference Range Interpretation Comments Phosphorus (test code = Phosphorus) 2.9 2.5-4.5 [facility] ArlingtonCHE[facility] RHLJR2631-75-90 08:58:00 Test Item Value Reference Range Interpretation Comments Magnesium Lvl (test code = Magnesium 2.4 1.8-2.4 Lvl) [facility] CenterGexuukvJBROBSFNLEFD5853-41-34 08:58:00 Test Item Value Reference Range Interpretation Comments Sodium Lvl (test code = Sodium Lvl) 139 135-145 [facility] CenterYvyhdksCQRSCBJZUARB3550-88-46 08:58:00 Test Item Value Reference Range Interpretation Comments Creatinine Lvl (test code = Creatinine 1.14 0.50-1.40 Lvl) [facility] CenterHrvaxjyROMGMFDYSTJQ4268-33-82 08:58:00 Test Item Value Reference Range Interpretation Comments Chloride Lvl (test code = Chloride Lvl) 104 95-109 [facility] CenterWybrwncGTPTPTXWSPVL8231-21-37 08:58:00 Test Item Value Reference Range Interpretation Comments CO2 (test code = CO2) 28 24-32 [facility] CenterDhkkljnGLYUXDQHFZBI9829-79-63 08:58:00 Test Item Value Reference Range Interpretation Comments Calcium Lvl (test code = Calcium Lvl) 8.7 8.5-10.5 [facility] CenterWcyljfbAPLNGNJFPUSR8620-57-10 08:58:00 Test Item Value Reference Range Interpretation Comments Potassium Lvl (test code = Potassium 4.8 3.5-5.1 Lvl) [facility] CenterOtpwzpjQNMVPECRTYTE8698-14-44 08:58:00 Test Item Value Reference Range Interpretation Comments AGAP (test code = AGAP) 11.8 10.0-20.0 [facility] CenterOpnanbzTVEFGMPQCSIR0004-27-44 08:58:00 Test Item Value Reference Range Interpretation Comments eGFR (test code = eGFR) 45 [facility] CenterUfoyyfxITQPEMKDZVZV4563-81-49 08:58:00 Test Item Value Reference Range Interpretation Comments BUN (test code = BUN) 25 7-22 [facility] CenterJuumqqxSIISBFRFVQSK1441-54-25 08:58:00 Test Item Value Reference Range Interpretation Comments Glucose Lvl (test code = Glucose Lvl) 113 70-99 [facility] HospitalVmpaxpmJCKWTGEHXL2598-07-59 08:58:00 Test Item Value Reference Range Interpretation Comments MPV (test code = MPV) 7.8 7.4-10.4 [facility] HospitalZftovjbVOCBPEJLVI0578-08-82 08:58:00 Test Item Value Reference Range Interpretation Comments Platelet (test code = Platelet) 301 262-450 [facility] HospitalFqbexvaMQVUQWTRUL2355-43-73 08:58:00 Test Item Value Reference Range Interpretation Comments RDW (test code = RDW) 14.1 11.5-14.5 [facility] HospitalWchctzqHTUTOBILFA3859-02-43 08:58:00 Test Item Value Reference Range Interpretation Comments MCH (test code = MCH) 29.9 pg 27.0-31.0 [facility] HospitalDcziggcBFBOYTOUOO1408-02-41 08:58:00 Test Item Value Reference Range Interpretation Comments MCV (test code = MCV) 89.6 80.0-98.0 [facility] HospitalJvuukgkUVKTYYJEQQ0561-70-05 08:58:00 Test Item Value Reference Range Interpretation Comments MCHC (test code = MCHC) 33.4 32.0-36.0 [facility] HospitalHifrchmHQYSIORYYI7451-66-57 08:58:00 Test Item Value Reference Range Interpretation Comments Hct (test code = Hct) 34.3 36.0-48.0 [facility] HospitalGwzdldoCJZFIQHGEC6804-59-33 08:58:00 Test Item Value Reference Range Interpretation Comments Hgb (test code = Hgb) 11.5 12.0-16.0 [facility] HospitalCjmfrnjYGYHUJEBKY5627-35-14 08:58:00 Test Item Value Reference Range Interpretation Comments RBC (test code = RBC) 3.83 4.20-5.40 [facility] HospitalSxnxwlmXXOUAPCDKK1007-86-84 08:58:00 Test Item Value Reference Range Interpretation Comments WBC (test code = WBC) 8.2 3.7-10.4 [facility] HospitalRyjvbdxYROBEWPMNO1827-93-35 08:58:00 Test Item Value Reference Range Interpretation Comments Lymphocytes # (test code = Lymphocytes 1.9 1.0-5.5 #) [facility] HospitalBkcbvbaAJYGDCDRKE9869-65-68 08:58:00 Test Item Value Reference Range Interpretation Comments Segs-Bands # (test code = Segs-Bands #) 5.5 1.5-8.1 [facility] HospitalNjedspjAKJCWGGYKV3317-63-02 08:58:00 Test Item Value Reference Range Interpretation Comments Eosinophils (test code = 1.4 See_Comment [A utomated message] The Eosinophils) system which ge nerated this result tra nsmitted reference range : <=4.0. The reference r robbie was not used to int erpret this result as normal/abnormal . [facility] HospitalTtuvvtsABGLEWBEWY6864-10-43 08:58:00 Test Item Value Reference Range Interpretation Comments Basophils (test code = 0.5 See_Comment [Aut omated message] The Basophils) system which ge nerated this result tra nsmitted reference range : <=1.0. The reference r robbie was not used to int erpret this result as normal/abnormal . [facility] HospitalDzzhwgaNZSZBESQYL6439-20-92 08:58:00 Test Item Value Reference Range Interpretation Comments Monocytes (test code = Monocytes) 9.1 2.0-12.0 [facility] HospitalPamnkziAHIQVVVFSJ1357-40-17 08:58:00 Test Item Value Reference Range Interpretation Comments Segs (test code = Segs) 66.2 45.0-75.0 [facility] HospitalEftizcaNMGPJIRAIH9497-34-02 08:58:00 Test Item Value Reference Range Interpretation Comments Lymphocytes (test code = Lymphocytes) 22.8 20.0-40.0 [facility] HospitalKplrxreOBOFIOCRTL6721-82-57 08:58:00 Test Item Value Reference Range Interpretation Comments Eosinophils # (test code 0.1 See_Comment [A utomated message] The = Eosinophils #) system whic h generated this result tra nsmitted reference range : <=0.5. The reference r robbie was not used to int erpret this result as normal/abnormal . [facility] HospitalLqlsydiZAYAXQCCFO5213-63-26 08:58:00 Test Item Value Reference Range Interpretation Comments Monocytes # (test code 0.7 See_Comment [Aut omated message] The = Monocytes #) system which generated this result tra nsmitted reference range : <=0.8. The reference r robbie was not used to int erpret this result as normal/abnormal . [facility] 08:58:00 Test Item Value Reference Range Interpretation Comments Phosphorus (test code = Phosphorus) 2.9 2.5-4.5 [facility] ArlingtonKamelio MQCSU9768-22-15 08:58:00 Test Item Value Reference Range Interpretation Comments Magnesium Lvl (test code = Magnesium 2.4 1.8-2.4 Lvl) [facility] CenterCscotolPIWFDTSBUAFC1168-88-66 08:58:00 Test Item Value Reference Range Interpretation Comments Sodium Lvl (test code = Sodium Lvl) 139 135-145 [facility] CenterHvkgqiqBFQZKMCKJBBB3023-16-05 08:58:00 Test Item Value Reference Range Interpretation Comments Creatinine Lvl (test code = Creatinine 1.14 0.50-1.40 Lvl) [facility] CenterIkzenroPQAJDXDZJWMJ5134-80-02 08:58:00 Test Item Value Reference Range Interpretation Comments Chloride Lvl (test code = Chloride Lvl) 104 95-109 [facility] CenterFoqfjuhTXCWJIEXOAWJ4395-69-58 08:58:00 Test Item Value Reference Range Interpretation Comments CO2 (test code = CO2) 28 24-32 [facility] CenterImnkiwbCWJUSAZAPELY2921-57-55 08:58:00 Test Item Value Reference Range Interpretation Comments Calcium Lvl (test code = Calcium Lvl) 8.7 8.5-10.5 [facility] CenterUkzwoyqNRFRGBMWEPOM4379-19-35 08:58:00 Test Item Value Reference Range Interpretation Comments Potassium Lvl (test code = Potassium 4.8 3.5-5.1 Lvl) [facility] CenterZskhtrdFIEPMZDFOXWL2804-38-38 08:58:00 Test Item Value Reference Range Interpretation Comments AGAP (test code = AGAP) 11.8 10.0-20.0 [facility] CenterXcpncfvKDXEUXXCOXMS2963-18-14 08:58:00 Test Item Value Reference Range Interpretation Comments eGFR (test code = eGFR) 45 [facility] CenterTlnlvnxHOPETOBTQFGM6766-40-88 08:58:00 Test Item Value Reference Range Interpretation Comments BUN (test code = BUN) 25 7-22 [facility] CenterJszqcdzTVOGDMMNRKCH2588-93-36 08:58:00 Test Item Value Reference Range Interpretation Comments Glucose Lvl (test code = Glucose Lvl) 113 70-99 [facility] HospitalHnfswdwWKXONCVKQI1155-30-06 08:58:00 Test Item Value Reference Range Interpretation Comments MPV (test code = MPV) 7.8 7.4-10.4 [facility] HospitalJzvxjsnUXRNYYBDWS9211-34-69 08:58:00 Test Item Value Reference Range Interpretation Comments Platelet (test code = Platelet) 301 133-450 [facility] HospitalGfohtkjESJSLYJWPU9058-06-46 08:58:00 Test Item Value Reference Range Interpretation Comments RDW (test code = RDW) 14.1 11.5-14.5 [facility] HospitalPfytgpoJYVQUKMGQK1302-04-23 08:58:00 Test Item Value Reference Range Interpretation Comments MCH (test code = MCH) 29.9 pg 27.0-31.0 [facility] HospitalPuonlwzNJEOEMMKCX0481-05-06 08:58:00 Test Item Value Reference Range Interpretation Comments MCV (test code = MCV) 89.6 80.0-98.0 [facility] HospitalTgdttgbWFQOJHBBON8892-76-81 08:58:00 Test Item Value Reference Range Interpretation Comments MCHC (test code = MCHC) 33.4 32.0-36.0 [facility] HospitalZdlockeICOOVLSWCS3552-33-17 08:58:00 Test Item Value Reference Range Interpretation Comments Hct (test code = Hct) 34.3 36.0-48.0 [facility] HospitalDypdlalNKCIIUIZZV8614-99-66 08:58:00 Test Item Value Reference Range Interpretation Comments Hgb (test code = Hgb) 11.5 12.0-16.0 [facility] HospitalHhroivgEQGRRGZWSF5967-73-95 08:58:00 Test Item Value Reference Range Interpretation Comments RBC (test code = RBC) 3.83 4.20-5.40 [facility] HospitalErwmcsxHPDQKYRCAA0344-30-55 08:58:00 Test Item Value Reference Range Interpretation Comments WBC (test code = WBC) 8.2 3.7-10.4 [facility] HospitalFuuelsdDPNANAKHWR0905-64-00 08:58:00 Test Item Value Reference Range Interpretation Comments Lymphocytes # (test code = Lymphocytes 1.9 1.0-5.5 #) [facility] HospitalCpuqcveZZFDJWDAWH6114-84-94 08:58:00 Test Item Value Reference Range Interpretation Comments Segs-Bands # (test code = Segs-Bands #) 5.5 1.5-8.1 [facility] HospitalNixbtzwSOWOYBZRFV6616-61-42 08:58:00 Test Item Value Reference Range Interpretation Comments Eosinophils (test code = 1.4 See_Comment [A utomated message] The Eosinophils) system which ge nerated this result tra nsmitted reference range : <=4.0. The reference r robbie was not used to int erpret this result as normal/abnormal . [place] 526596-09-02 08:58:00 Test Item Value Reference Range Interpretation Comments Basophils (test code = 0.5 See_Comment [Aut omated message] The Basophils) system which ge nerated this result tra nsmitted reference range : <=1.0. The reference r robbie was not used to int erpret this result as normal/abnormal . [facility] HospitalGvjhwlsZZXTFYUIFK2145-10-10 08:58:00 Test Item Value Reference Range Interpretation Comments Monocytes (test code = Monocytes) 9.1 2.0-12.0 [facility] HospitalKtosphcBEXFLFURJE9134-53-32 08:58:00 Test Item Value Reference Range Interpretation Comments Segs (test code = Segs) 66.2 45.0-75.0 [facility] HospitalHpkcnztQDAGFXHDFX5597-17-81 08:58:00 Test Item Value Reference Range Interpretation Comments Lymphocytes (test code = Lymphocytes) 22.8 20.0-40.0 [facility] HospitalPnzcfqqQAZBROHDYQ1654-53-55 08:58:00 Test Item Value Reference Range Interpretation Comments Eosinophils # (test code 0.1 See_Comment [A utomated message] The = Eosinophils #) system whic h generated this result tra nsmitted reference range : <=0.5. The reference r robbie was not used to int erpret this result as normal/abnormal . [facility] HospitalZwremizDDZIKGJDRT7538-64-15 08:58:00 Test Item Value Reference Range Interpretation Comments Monocytes # (test code 0.7 See_Comment [Aut omated message] The = Monocytes #) system which generated this result tra nsmitted reference range : <=0.8. The reference r robbie was not used to int erpret this result as normal/abnormal . [facility] ArlingtonKamelio MADPH9211-98-59 08:58:00 Test Item Value Reference Range Interpretation Comments Phosphorus (test code = Phosphorus) 2.9 2.5-4.5 [facility] ArlingtonKamelio GULGG4964-51-18 08:58:00 Test Item Value Reference Range Interpretation Comments Magnesium Lvl (test code = Magnesium 2.4 1.8-2.4 Lvl) [facility] CenterVqslcvkBCUOYWKNJETV2359-78-90 08:58:00 Test Item Value Reference Range Interpretation Comments Sodium Lvl (test code = Sodium Lvl) 139 135-145 [facility] CenterAulfrrxPEVIQKYXMMSN7821-75-92 08:58:00 Test Item Value Reference Range Interpretation Comments Creatinine Lvl (test code = Creatinine 1.14 0.50-1.40 Lvl) [facility] CenterDkwinqlLZEZRRWEIXRK9990-90-00 08:58:00 Test Item Value Reference Range Interpretation Comments Chloride Lvl (test code = Chloride Lvl) 104 95-109 [facility] CenterNrbrojoDZVBVDSYNNMS0449-98-75 08:58:00 Test Item Value Reference Range Interpretation Comments CO2 (test code = CO2) 28 24-32 [facility] CenterZcwygqoVYBUDOICDFJX4558-45-00 08:58:00 Test Item Value Reference Range Interpretation Comments Calcium Lvl (test code = Calcium Lvl) 8.7 8.5-10.5 [facility] CenterMwteocuRDPPEXWYZWKW2728-36-23 08:58:00 Test Item Value Reference Range Interpretation Comments Potassium Lvl (test code = Potassium 4.8 3.5-5.1 Lvl) [facility] CenterVoqykaxOCTVFKTICTEP6713-56-91 08:58:00 Test Item Value Reference Range Interpretation Comments AGAP (test code = AGAP) 11.8 10.0-20.0 [facility] CenterOzxumoiZFQCNMYNCYUJ1572-05-88 08:58:00 Test Item Value Reference Range Interpretation Comments eGFR (test code = eGFR) 45 [facility] CenterLkbredzYCEVGNKYDNZL3747-72-62 08:58:00 Test Item Value Reference Range Interpretation Comments BUN (test code = BUN) 25 7-22 [facility] CenterSrhyoydCMGPRDJUHPVH4711-59-45 08:58:00 Test Item Value Reference Range Interpretation Comments Glucose Lvl (test code = Glucose Lvl) 113 70-99 [facility] HospitalQyfuwgkRSMMAWJHVL4525-36-78 08:58:00 Test Item Value Reference Range Interpretation Comments MPV (test code = MPV) 7.8 7.4-10.4 [facility] HospitalVhewhrsWBHVFTJXYM5665-01-30 08:58:00 Test Item Value Reference Range Interpretation Comments Platelet (test code = Platelet) 301 133-450 [facility] HospitalZjqczneRJQRURANBP6712-33-16 08:58:00 Test Item Value Reference Range Interpretation Comments RDW (test code = RDW) 14.1 11.5-14.5 [facility] HospitalFmkjseoPGLXZMAWHR6082-14-83 08:58:00 Test Item Value Reference Range Interpretation Comments MCH (test code = MCH) 29.9 pg 27.0-31.0 [facility] HospitalWgwaprhBRAIPBNHDU6435-29-51 08:58:00 Test Item Value Reference Range Interpretation Comments MCV (test code = MCV) 89.6 80.0-98.0 [facility] HospitalWvidwqoWBKZCKBYMX6974-24-00 08:58:00 Test Item Value Reference Range Interpretation Comments MCHC (test code = MCHC) 33.4 32.0-36.0 [facility] HospitalZoqvubpGKOVTWGAXI9959-82-74 08:58:00 Test Item Value Reference Range Interpretation Comments Hct (test code = Hct) 34.3 36.0-48.0 [facility] HospitalHjahjevSIRZWKLVYE2276-99-07 08:58:00 Test Item Value Reference Range Interpretation Comments Hgb (test code = Hgb) 11.5 12.0-16.0 [facility]RgsehpwGIGHGOKFRG6092-94-62 08:58:00 Test Item Value Reference Range Interpretation Comments RBC (test code = RBC) 3.83 4.20-5.40 [facility]NcvkljcEFPGWKYUDA9628-07-81 08:58:00 Test Item Value Reference Range Interpretation Comments WBC (test code = WBC) 8.2 3.7-10.4 [facility] HospitalQuvfrdtEJOPNTBZRF1834-98-35 08:58:00 Test Item Value Reference Range Interpretation Comments Lymphocytes # (test code = Lymphocytes 1.9 1.0-5.5 #) [facility] HospitalYszkhjeNUMFNJNBWO7347-12-48 08:58:00 Test Item Value Reference Range Interpretation Comments Segs-Bands # (test code = Segs-Bands #) 5.5 1.5-8.1 [facility] HospitalWddhkkkFAUYGBUTOY3175-32-58 08:58:00 Test Item Value Reference Range Interpretation Comments Eosinophils (test code = 1.4 See_Comment [A utomated message] The Eosinophils) system which ge nerated this result tra nsmitted reference range : <=4.0. The reference r robbie was not used to int erpret this result as normal/abnormal . [facility] HospitalEsklnglCUBEAPKVAG7446-17-33 08:58:00 Test Item Value Reference Range Interpretation Comments Basophils (test code = 0.5 See_Comment [Aut omated message] The Basophils) system which ge nerated this result tra nsmitted reference range : <=1.0. The reference r robbie was not used to int erpret this result as normal/abnormal . [facility] HospitalPtguywdVKTLVYFXTJ5516-69-58 08:58:00 Test Item Value Reference Range Interpretation Comments Monocytes (test code = Monocytes) 9.1 2.0-12.0 [facility] HospitalQnhwhsrYPBQUVFFGE8788-50-06 08:58:00 Test Item Value Reference Range Interpretation Comments Segs (test code = Segs) 66.2 45.0-75.0 [facility] HospitalUaleyttGVRPOUUNIB4525-73-52 08:58:00 Test Item Value Reference Range Interpretation Comments Lymphocytes (test code = Lymphocytes) 22.8 20.0-40.0 [facility] HospitalXutgbshGPNXXKWUXT3163-65-79 08:58:00 Test Item Value Reference Range Interpretation Comments Eosinophils # (test code 0.1 See_Comment [A utomated message] The = Eosinophils #) system whic h generated this result tra nsmitted reference range : <=0.5. The reference r robbie was not used to int erpret this result as normal/abnormal . [facility] HospitalNcizwpcWVVJHYFNUV9689-33-42 08:58:00 Test Item Value Reference Range Interpretation Comments Monocytes # (test code 0.7 See_Comment [Aut omated message] The = Monocytes #) system which generated this result tra nsmitted reference range : <=0.8. The reference r robbie was not used to int erpret this result as normal/abnormal . [facility] LXLXF9994-49-74 08:58:00 Test Item Value Reference Range Interpretation Comments Phosphorus (test code = Phosphorus) 2.9 2.5-4.5 [facility] ZBAJT4190-04-56 08:58:00 Test Item Value Reference Range Interpretation Comments Magnesium Lvl (test code = Magnesium 2.4 1.8-2.4 Lvl) [facility]RbixfenVTSIKNRKWQMS5621-46-15 08:58:00 Test Item Value Reference Range Interpretation Comments Sodium Lvl (test code = Sodium Lvl) 139 135-145 [facility] CenterIskhzkfAFIIDNXKJQVW1808-43-08 08:58:00 Test Item Value Reference Range Interpretation Comments Creatinine Lvl (test code = Creatinine 1.14 0.50-1.40 Lvl) [facility] CenterRywmnjpUNTTPZMCEXRM0931-79-62 08:58:00 Test Item Value Reference Range Interpretation Comments Chloride Lvl (test code = Chloride Lvl) 104 95-109 [place] 715296-09-02 08:58:00 Test Item Value Reference Range Interpretation Comments CO2 (test code = CO2) 28 24-32 [facility] CenterOlwfdgrAWWMWMITWOKX6731-97-27 08:58:00 Test Item Value Reference Range Interpretation Comments Calcium Lvl (test code = Calcium Lvl) 8.7 8.5-10.5 [facility] CenterPaciepuJMKKPUILSIRM8746-48-59 08:58:00 Test Item Value Reference Range Interpretation Comments Potassium Lvl (test code = Potassium 4.8 3.5-5.1 Lvl) [facility] CenterHfucochOCMEQDLELJTL0574-80-79 08:58:00 Test Item Value Reference Range Interpretation Comments AGAP (test code = AGAP) 11.8 10.0-20.0 [facility] CenterCowfgtpDPUBMMEYGWYL5361-74-43 08:58:00 Test Item Value Reference Range Interpretation Comments eGFR (test code = eGFR) 45 [facility] CenterPuulmtlRJXEJTVXYQGF8227-50-27 08:58:00 Test Item Value Reference Range Interpretation Comments BUN (test code = BUN) 25 7-22 [facility] CenterXmyhrwwANZIVYLVEKYH1172-54-71 08:58:00 Test Item Value Reference Range Interpretation Comments Glucose Lvl (test code = Glucose Lvl) 113 70-99 [facility] HospitalMnlvjvvJXLLGFKFQY9834-25-63 08:58:00 Test Item Value Reference Range Interpretation Comments MPV (test code = MPV) 7.8 7.4-10.4 [facility] HospitalBykncsmFSLORJPKJQ1432-38-25 08:58:00 Test Item Value Reference Range Interpretation Comments Platelet (test code = Platelet) 301 133-450 [facility] HospitalYjoztdfBVFHKPJHIA4636-47-57 08:58:00 Test Item Value Reference Range Interpretation Comments RDW (test code = RDW) 14.1 11.5-14.5 [facility] HospitalNbnwzfnUJGHIWGEYT6306-20-69 08:58:00 Test Item Value Reference Range Interpretation Comments MCH (test code = MCH) 29.9 pg 27.0-31.0 [facility] HospitalLxwmmoiDXKGJTOYAA4983-06-44 08:58:00 Test Item Value Reference Range Interpretation Comments MCV (test code = MCV) 89.6 80.0-98.0 [facility] HospitalEawhphbWFIDHIIHIH1070-74-61 08:58:00 Test Item Value Reference Range Interpretation Comments MCHC (test code = MCHC) 33.4 32.0-36.0 [facility] HospitalCvvgdxzZPCBLSVYNG5372-87-06 08:58:00 Test Item Value Reference Range Interpretation Comments Hct (test code = Hct) 34.3 36.0-48.0 [facility] HospitalScbtrsxIMWGWDXAUC8193-90-53 08:58:00 Test Item Value Reference Range Interpretation Comments Hgb (test code = Hgb) 11.5 12.0-16.0 [facility] HospitalNmluodaLUOAHLMQJE5536-73-63 08:58:00 Test Item Value Reference Range Interpretation Comments RBC (test code = RBC) 3.83 4.20-5.40 [facility] HospitalQovuawaHBHWDJUUCY3296-61-73 08:58:00 Test Item Value Reference Range Interpretation Comments WBC (test code = WBC) 8.2 3.7-10.4 [facility] HospitalDehacvtEIJBGLGZMT6795-60-44 08:58:00 Test Item Value Reference Range Interpretation Comments Lymphocytes # (test code = Lymphocytes 1.9 1.0-5.5 #) [facility] HospitalAanbnmjVZWBSETNNE1833-85-32 08:58:00 Test Item Value Reference Range Interpretation Comments Segs-Bands # (test code = Segs-Bands #) 5.5 1.5-8.1 [facility] HospitalGosprysQEBEPDHXKT9824-93-93 08:58:00 Test Item Value Reference Range Interpretation Comments Eosinophils (test code = 1.4 See_Comment [A utomated message] The Eosinophils) system which ge nerated this result tra nsmitted reference range : <=4.0. The reference r robbie was not used to int erpret this result as normal/abnormal . [facility] HospitalVeifttyAHKNZBJBTM8065-20-29 08:58:00 Test Item Value Reference Range Interpretation Comments Basophils (test code = 0.5 See_Comment [Aut omated message] The Basophils) system which ge nerated this result tra nsmitted reference range : <=1.0. The reference r robbie was not used to int erpret this result as normal/abnormal . [facility] HospitalRmoevxySKHESCYAZQ3902-09-25 08:58:00 Test Item Value Reference Range Interpretation Comments Monocytes (test code = Monocytes) 9.1 2.0-12.0 [facility] HospitalYqhzzjgPVFXMKAJIW5378-51-70 08:58:00 Test Item Value Reference Range Interpretation Comments Segs (test code = Segs) 66.2 45.0-75.0 [facility] HospitalEbtmsxfSEHKKFYLPL5987-88-97 08:58:00 Test Item Value Reference Range Interpretation Comments Lymphocytes (test code = Lymphocytes) 22.8 20.0-40.0 [facility] HospitalZkrgxigGUVVGWTOHL0170-15-56 08:58:00 Test Item Value Reference Range Interpretation Comments Eosinophils # (test code 0.1 See_Comment [A utomated message] The = Eosinophils #) system whic h generated this result tra nsmitted reference range : <=0.5. The reference r robbie was not used to int erpret this result as normal/abnormal . [facility] HospitalZalbpqhVKRNYDVZUF1564-60-72 08:58:00 Test Item Value Reference Range Interpretation Comments Monocytes # (test code 0.7 See_Comment [Aut omated message] The = Monocytes #) system which generated this result tra nsmitted reference range : <=0.8. The reference r robbie was not used to int erpret this result as normal/abnormal . [facility] DDGOA5263-96-51 08:58:00 Test Item Value Reference Range Interpretation Comments Phosphorus (test code = Phosphorus) 2.9 2.5-4.5 [facility] ArlingtonCHEM SPJYB9528-75-88 08:58:00 Test Item Value Reference Range Interpretation Comments Magnesium Lvl (test code = Magnesium 2.4 1.8-2.4 Lvl) [facility] CenterNjbkaxoTKSMOJJQYIFD4736-38-22 08:58:00 Test Item Value Reference Range Interpretation Comments Sodium Lvl (test code = Sodium Lvl) 139 135-145 [facility] CenterHjnfavqDLOXIFRZBUGG2989-70-61 08:58:00 Test Item Value Reference Range Interpretation Comments Creatinine Lvl (test code = Creatinine 1.14 0.50-1.40 Lvl) [facility] CenterJluysysBHEIIFEKHTTC0634-63-50 08:58:00 Test Item Value Reference Range Interpretation Comments Chloride Lvl (test code = Chloride Lvl) 104 95-109 [facility] CenterSttfncsBBSCJWYVLMJJ1904-11-63 08:58:00 Test Item Value Reference Range Interpretation Comments CO2 (test code = CO2) 28 24-32 [facility] CenterCwffuwaBUDVARGFKXBP9683-30-57 08:58:00 Test Item Value Reference Range Interpretation Comments Calcium Lvl (test code = Calcium Lvl) 8.7 8.5-10.5 [facility] CenterSbqnqfcGSFAPIHZYMMT3622-34-39 08:58:00 Test Item Value Reference Range Interpretation Comments Potassium Lvl (test code = Potassium 4.8 3.5-5.1 Lvl) [facility] CenterDtxuovsEOZPQTZPFSAC1385-84-83 08:58:00 Test Item Value Reference Range Interpretation Comments AGAP (test code = AGAP) 11.8 10.0-20.0 [facility] CenterLjjjcdsVTTNYECWVJEO9570-79-89 08:58:00 Test Item Value Reference Range Interpretation Comments eGFR (test code = eGFR) 45 [facility] CenterNhxicijMSXXMVEULNYC0551-83-35 08:58:00 Test Item Value Reference Range Interpretation Comments BUN (test code = BUN) 25 7-22 [facility] CenterSvxlcgdSLRGKXQZVLIF3001-74-72 08:58:00 Test Item Value Reference Range Interpretation Comments Glucose Lvl (test code = Glucose Lvl) 113 70-99 [facility] HospitalKxeevvkVOGCVMDUEI8032-61-62 08:58:00 Test Item Value Reference Range Interpretation Comments MPV (test code = MPV) 7.8 7.4-10.4 [facility] HospitalTvsvskxHEFEZJQZZN8426-59-92 08:58:00 Test Item Value Reference Range Interpretation Comments Platelet (test code = Platelet) 301 133-450 [facility] HospitalOhxisxcKLPNKGVPEU8305-35-39 08:58:00 Test Item Value Reference Range Interpretation Comments RDW (test code = RDW) 14.1 11.5-14.5 [facility] HospitalMvkegncFDJFUISVGF9941-81-44 08:58:00 Test Item Value Reference Range Interpretation Comments MCH (test code = MCH) 29.9 pg 27.0-31.0 [facility] HospitalBrslazjXMRAWBTLFA2215-83-80 08:58:00 Test Item Value Reference Range Interpretation Comments MCV (test code = MCV) 89.6 80.0-98.0 [facility] HospitalMvgqhuiBBOYYSNRLX6902-57-34 08:58:00 Test Item Value Reference Range Interpretation Comments MCHC (test code = MCHC) 33.4 32.0-36.0 [facility] HospitalFxblwlbAPICORIFNM4066-64-87 08:58:00 Test Item Value Reference Range Interpretation Comments Hct (test code = Hct) 34.3 36.0-48.0 [facility] HospitalEkdxayoHEJPONXASO4900-60-46 08:58:00 Test Item Value Reference Range Interpretation Comments Hgb (test code = Hgb) 11.5 12.0-16.0 [facility] HospitalXuinrcpKDKWIHUIPE8255-81-44 08:58:00 Test Item Value Reference Range Interpretation Comments RBC (test code = RBC) 3.83 4.20-5.40 [facility] HospitalUhqhxazWCOEZOJPWB2355-87-92 08:58:00 Test Item Value Reference Range Interpretation Comments WBC (test code = WBC) 8.2 3.7-10.4 [facility] HospitalUfkdwtvQSXURDMOZO4005-62-78 08:58:00 Test Item Value Reference Range Interpretation Comments Lymphocytes # (test code = Lymphocytes 1.9 1.0-5.5 #) [facility] HospitalPhlikszCFXTCFVRKH3542-66-49 08:58:00 Test Item Value Reference Range Interpretation Comments Segs-Bands # (test code = Segs-Bands #) 5.5 1.5-8.1 [place] 526596-09-02 08:58:00 Test Item Value Reference Range Interpretation Comments Eosinophils (test code = 1.4 See_Comment [A utomated message] The Eosinophils) system which ge nerated this result tra nsmitted reference range : <=4.0. The reference r robbie was not used to int erpret this result as normal/abnormal . [facility] HospitalMvhrdrfVKNGPIWIBY4845-41-89 08:58:00 Test Item Value Reference Range Interpretation Comments Basophils (test code = 0.5 See_Comment [Aut omated message] The Basophils) system which ge nerated this result tra nsmitted reference range : <=1.0. The reference r robbie was not used to int erpret this result as normal/abnormal . [facility] HospitalLbkiobbFAZGGJGOQI2486-91-49 08:58:00 Test Item Value Reference Range Interpretation Comments Monocytes (test code = Monocytes) 9.1 2.0-12.0 [facility] HospitalTpqustmMGLZFMWJXI4283-24-77 08:58:00 Test Item Value Reference Range Interpretation Comments Segs (test code = Segs) 66.2 45.0-75.0 [facility] HospitalPvjborjOPKUEFUBIJ0802 08:58:00 Test Item Value Reference Range Interpretation Comments Lymphocytes (test code = Lymphocytes) 22.8 20.0-40.0 [facility] HospitalTtczabkIDPKSKZYJP4055-93-09 08:58:00 Test Item Value Reference Range Interpretation Comments Eosinophils # (test code 0.1 See_Comment [A utomated message] The = Eosinophils #) system whic h generated this result tra nsmitted reference range : <=0.5. The reference r orbbie was not used to int erpret this result as normal/abnormal . [facility]PhlgsazFTQGURYXEG1824-78-68 08:58:00 Test Item Value Reference Range Interpretation Comments Monocytes # (test code 0.7 See_Comment [Aut omated message] The = Monocytes #) system which generated this result tra nsmitted reference range : <=0.8. The reference r robbie was not used to int erpret this result as normal/abnormal . [facility] ArlingtonCHEM STGCA0877-74-83 08:58:00 Test Item Value Reference Range Interpretation Comments Phosphorus (test code = Phosphorus) 2.9 2.5-4.5 [facility] ArlingtonCHEM ZUCJI8691-18-23 08:58:00 Test Item Value Reference Range Interpretation Comments Magnesium Lvl (test code = Magnesium 2.4 1.8-2.4 Lvl) [facility] CenterDgkmfwuIDQEPJQXTQUX2909-41-56 08:58:00 Test Item Value Reference Range Interpretation Comments Sodium Lvl (test code = Sodium Lvl) 139 135-145 [facility] CenterDimnrfwVKUIORAHKKMN4027-42-86 08:58:00 Test Item Value Reference Range Interpretation Comments Creatinine Lvl (test code = Creatinine 1.14 0.50-1.40 Lvl) [facility] CenterKbxpryiEHKTHQLOLZXT1453-90-60 08:58:00 Test Item Value Reference Range Interpretation Comments Chloride Lvl (test code = Chloride Lvl) 104 95-109 [facility] CenterFprehhvGEGPBQLPJAFH3119-09-27 08:58:00 Test Item Value Reference Range Interpretation Comments CO2 (test code = CO2) 28 24-32 [facility] CenterQohtktxNIRJPSHKHKQW5890-47-39 08:58:00 Test Item Value Reference Range Interpretation Comments Calcium Lvl (test code = Calcium Lvl) 8.7 8.5-10.5 [facility] CenterQwhnsyrOMWBEUTZXUPJ1420-44-92 08:58:00 Test Item Value Reference Range Interpretation Comments Potassium Lvl (test code = Potassium 4.8 3.5-5.1 Lvl) [facility] CenterJlegqgeWRFJWVZWSRYM3606-47-17 08:58:00 Test Item Value Reference Range Interpretation Comments AGAP (test code = AGAP) 11.8 10.0-20.0 [facility] CenterEebmlltBUGDLYFVWJVW2501-87-63 08:58:00 Test Item Value Reference Range Interpretation Comments eGFR (test code = eGFR) 45 [facility] CenterUekofltPDAOIQHXFFZU4651-67-06 08:58:00 Test Item Value Reference Range Interpretation Comments BUN (test code = BUN) 25 7-22 [facility] CenterDrkwfabASBDLVUHLIFO3664-31-61 08:58:00 Test Item Value Reference Range Interpretation Comments Glucose Lvl (test code = Glucose Lvl) 113 70-99 [facility] HospitalGkwsbvgKZYNHSYGQR6052-52-89 08:58:00 Test Item Value Reference Range Interpretation Comments MPV (test code = MPV) 7.8 7.4-10.4 [facility] HospitalWqugkboYTBUTJZGPE9570-52-77 08:58:00 Test Item Value Reference Range Interpretation Comments Platelet (test code = Platelet) 301 133-450 [facility] HospitalGlgbyaeAOBYLJKJBZ6954-50-13 08:58:00 Test Item Value Reference Range Interpretation Comments RDW (test code = RDW) 14.1 11.5-14.5 [facility] HospitalQzwasdfEQNZKTQXIL9604-66-09 08:58:00 Test Item Value Reference Range Interpretation Comments MCH (test code = MCH) 29.9 pg 27.0-31.0 [facility] HospitalSiecyteNHOXXNFEGE9741-45-59 08:58:00 Test Item Value Reference Range Interpretation Comments MCV (test code = MCV) 89.6 80.0-98.0 [facility] HospitalGrbkxqxTXWLGHMGNJ5242-55-51 08:58:00 Test Item Value Reference Range Interpretation Comments MCHC (test code = MCHC) 33.4 32.0-36.0 [facility] HospitalXlelhiqOENQVFXLKV5210-08-13 08:58:00 Test Item Value Reference Range Interpretation Comments Hct (test code = Hct) 34.3 36.0-48.0 [facility] HospitalNyqoelrJCNGIBLNOB1782-89-95 08:58:00 Test Item Value Reference Range Interpretation Comments Hgb (test code = Hgb) 11.5 12.0-16.0 [facility] HospitalRxrcnouSFHSBEQFWL8181-64-56 08:58:00 Test Item Value Reference Range Interpretation Comments RBC (test code = RBC) 3.83 4.20-5.40 [facility] HospitalLrhlvusHZNCXFWOFD5658-71-82 08:58:00 Test Item Value Reference Range Interpretation Comments WBC (test code = WBC) 8.2 3.7-10.4 [facility] HospitalTaduzrpSXETDDKMDB5501-96-34 08:58:00 Test Item Value Reference Range Interpretation Comments Lymphocytes # (test code = Lymphocytes 1.9 1.0-5.5 #) [facility] HospitalSiqtrsfZTGUUUSAKG1023-05-88 08:58:00 Test Item Value Reference Range Interpretation Comments Segs-Bands # (test code = Segs-Bands #) 5.5 1.5-8.1 [facility] HospitalRecgazlNRERFKNTGY0343-41-32 08:58:00 Test Item Value Reference Range Interpretation Comments Eosinophils (test code = 1.4 See_Comment [A utomated message] The Eosinophils) system which ge nerated this result tra nsmitted reference range : <=4.0. The reference r robbie was not used to int erpret this result as normal/abnormal . [facility] HospitalYatzuxvCMWXBAUAKV0674-73-36 08:58:00 Test Item Value Reference Range Interpretation Comments Basophils (test code = 0.5 See_Comment [Aut omated message] The Basophils) system which ge nerated this result tra nsmitted reference range : <=1.0. The reference r robbie was not used to int erpret this result as normal/abnormal . [facility] HospitalEhqlnfeEZHYYRHBYL7853-76-48 08:58:00 Test Item Value Reference Range Interpretation Comments Monocytes (test code = Monocytes) 9.1 2.0-12.0 [facility] HospitalDireexzDKFCJFESRU6884-58-46 08:58:00 Test Item Value Reference Range Interpretation Comments Segs (test code = Segs) 66.2 45.0-75.0 [facility] HospitalKejpjixYCWDIWIIZG7320-23-70 08:58:00 Test Item Value Reference Range Interpretation Comments Lymphocytes (test code = Lymphocytes) 22.8 20.0-40.0 [facility] HospitalOztclmrXCRPZUXVRB0168-21-77 08:58:00 Test Item Value Reference Range Interpretation Comments Eosinophils # (test code 0.1 See_Comment [A utomated message] The = Eosinophils #) system whic h generated this result tra nsmitted reference range : <=0.5. The reference r robbie was not used to int erpret this result as normal/abnormal . [facility] HospitalNybwinaPAARCZXMDX1411-66-83 08:58:00 Test Item Value Reference Range Interpretation Comments Monocytes # (test code 0.7 See_Comment [Aut omated message] The = Monocytes #) system which generated this result tra nsmitted reference range : <=0.8. The reference r robbie was not used to int erpret this result as normal/abnormal . [facility] ArlingtonKamelio SLWHC1891-43-64 08:58:00 Test Item Value Reference Range Interpretation Comments Phosphorus (test code = Phosphorus) 2.9 2.5-4.5 [facility] ArlingtonKamelio TNLPP1684-34-50 08:58:00 Test Item Value Reference Range Interpretation Comments Magnesium Lvl (test code = Magnesium 2.4 1.8-2.4 Lvl) [facility] CenterQiqbmgsKYXFILYKAZUK3771-52-20 08:58:00 Test Item Value Reference Range Interpretation Comments Sodium Lvl (test code = Sodium Lvl) 139 135-145 [facility] CenterWgizltuHBEQNPIPYKFH5165-26-83 08:58:00 Test Item Value Reference Range Interpretation Comments Creatinine Lvl (test code = Creatinine 1.14 0.50-1.40 Lvl) [facility] CenterTsviktaQMLKZVFELGEH5579-12-97 08:58:00 Test Item Value Reference Range Interpretation Comments Chloride Lvl (test code = Chloride Lvl) 104 95-109 [facility] CenterCwbgdidGIELKAGJROEG8980-34-45 08:58:00 Test Item Value Reference Range Interpretation Comments CO2 (test code = CO2) 28 24-32 [facility] CenterFxfhpalQPNHLYIVZIPR4379-80-63 08:58:00 Test Item Value Reference Range Interpretation Comments Calcium Lvl (test code = Calcium Lvl) 8.7 8.5-10.5 [facility] CenterEbipeevWGQWXGUYWOTP1168-58-87 08:58:00 Test Item Value Reference Range Interpretation Comments Potassium Lvl (test code = Potassium 4.8 3.5-5.1 Lvl) [facility] CenterHogngkxTSLLMQTMMWBY5696-53-58 08:58:00 Test Item Value Reference Range Interpretation Comments AGAP (test code = AGAP) 11.8 10.0-20.0 [facility] CenterZfglpxvSANKPLQRBJNT3814-44-91 08:58:00 Test Item Value Reference Range Interpretation Comments eGFR (test code = eGFR) 45 [facility] CenterPobmjyaQEKRPPEZMSUZ8571-09-23 08:58:00 Test Item Value Reference Range Interpretation Comments BUN (test code = BUN) 25 7-22 [facility]WnvgcbhPBKWGHDNGOUX2475-33-42 08:58:00 Test Item Value Reference Range Interpretation Comments Glucose Lvl (test code = Glucose Lvl) 113 70-99 [facility] HospitalLuskthoNFPENCLBGK8465-83-78 08:58:00 Test Item Value Reference Range Interpretation Comments MPV (test code = MPV) 7.8 7.4-10.4 [facility] HospitalIllovtpCDPBFUUMCA4540-09-26 08:58:00 Test Item Value Reference Range Interpretation Comments Platelet (test code = Platelet) 301 133-450 [facility] HospitalOracpjgNQOCETATOH5418-02-39 08:58:00 Test Item Value Reference Range Interpretation Comments RDW (test code = RDW) 14.1 11.5-14.5 [facility] HospitalDcjqpjqXDQISMQOIK9450-54-28 08:58:00 Test Item Value Reference Range Interpretation Comments MCH (test code = MCH) 29.9 pg 27.0-31.0 [facility] HospitalXcywvbrWQSOPJTTAR4053-59-82 08:58:00 Test Item Value Reference Range Interpretation Comments MCV (test code = MCV) 89.6 80.0-98.0 [facility] HospitalVkibnjqJJKSUBKAGF1930-69-44 08:58:00 Test Item Value Reference Range Interpretation Comments MCHC (test code = MCHC) 33.4 32.0-36.0 [facility] HospitalShyppctHBUACVFJYO5301-69-66 08:58:00 Test Item Value Reference Range Interpretation Comments Hct (test code = Hct) 34.3 36.0-48.0 [facility] HospitalFfjbnsaSAYCCTMTUN8474-71-69 08:58:00 Test Item Value Reference Range Interpretation Comments Hgb (test code = Hgb) 11.5 12.0-16.0 [facility]AtgzcirBGTFNMZWKX1997-86-43 08:58:00 Test Item Value Reference Range Interpretation Comments RBC (test code = RBC) 3.83 4.20-5.40 [facility] HospitalKhgkihiSWEODQNVTT4268-93-08 08:58:00 Test Item Value Reference Range Interpretation Comments WBC (test code = WBC) 8.2 3.7-10.4 [facility] HospitalPyzytgnHBFHYARKWR6937-43-23 08:58:00 Test Item Value Reference Range Interpretation Comments Lymphocytes # (test code = Lymphocytes 1.9 1.0-5.5 #) [facility] HospitalIbluaenCGXCDMDSVM7033-36-07 08:58:00 Test Item Value Reference Range Interpretation Comments Segs-Bands # (test code = Segs-Bands #) 5.5 1.5-8.1 [facility] HospitalTncrgldHVYOZMAHST2284-59-67 08:58:00 Test Item Value Reference Range Interpretation Comments Eosinophils (test code = 1.4 See_Comment [A utomated message] The Eosinophils) system which ge nerated this result tra nsmitted reference range : <=4.0. The reference r robbie was not used to int erpret this result as normal/abnormal . [facility] HospitalTtojhgfATGZPBDERT4432-28-00 08:58:00 Test Item Value Reference Range Interpretation Comments Basophils (test code = 0.5 See_Comment [Aut omated message] The Basophils) system which ge nerated this result tra nsmitted reference range : <=1.0. The reference r robbie was not used to int erpret this result as normal/abnormal . [facility] HospitalCugmvddGTPOXPGOTR9740-25-52 08:58:00 Test Item Value Reference Range Interpretation Comments Monocytes (test code = Monocytes) 9.1 2.0-12.0 [facility] HospitalJuypclcDSJXQBOJBF1144-49-72 08:58:00 Test Item Value Reference Range Interpretation Comments Segs (test code = Segs) 66.2 45.0-75.0 [facility] HospitalSmekvuwEEDHJZDEXA7809-53-94 08:58:00 Test Item Value Reference Range Interpretation Comments Lymphocytes (test code = Lymphocytes) 22.8 20.0-40.0 [facility] HospitalEugwgcjSOTFEPSQFI3448-08-83 08:58:00 Test Item Value Reference Range Interpretation Comments Eosinophils # (test code 0.1 See_Comment [A utomated message] The = Eosinophils #) system [facility] h generated this result tra nsmitted reference range : <=0.5. The reference r robbie was not used to int erpret this result as normal/abnormal . [facility] HospitalUnmnjjqVDJZLGIAST2515-96-13 08:58:00 Test Item Value Reference Range Interpretation Comments Monocytes # (test code 0.7 See_Comment [Aut omated message] The = Monocytes #) system which generated this result tra nsmitted reference range : <=0.8. The reference r robbie was not used to int erpret this result as normal/abnormal . [facility]-02 08:58:00 Test Item Value Reference Range Interpretation Comments Phosphorus (test code = Phosphorus) 2.9 2.5-4.5 [facility]CHEM EUJNE2850-78-35 08:58:00 Test Item Value Reference Range Interpretation Comments Magnesium Lvl (test code = Magnesium 2.4 1.8-2.4 Lvl) [facility]UroftjjVGSETYHQRZIE8999-56-49 08:58:00 Test Item Value Reference Range Interpretation Comments Sodium Lvl (test code = Sodium Lvl) 139 135-145 [facility] CenterHsommarWRXHXYCRJWHI6303-01-37 08:58:00 Test Item Value Reference Range Interpretation Comments Creatinine Lvl (test code = Creatinine 1.14 0.50-1.40 Lvl) [facility] CenterEgozhclXFYMRPZJYVVA0175-77-42 08:58:00 Test Item Value Reference Range Interpretation Comments Chloride Lvl (test code = Chloride Lvl) 104 95-109 [facility] CenterZszexzeHLHWLVWBVGMB6343-41-48 08:58:00 Test Item Value Reference Range Interpretation Comments CO2 (test code = CO2) 28 24-32 [facility] CenterGisoulaLPBZQEWVJFNJ4604-60-97 08:58:00 Test Item Value Reference Range Interpretation Comments Calcium Lvl (test code = Calcium Lvl) 8.7 8.5-10.5 [facility] CenterNtxhbqoEIMUMECKQIGY0223-06-82 08:58:00 Test Item Value Reference Range Interpretation Comments Potassium Lvl (test code = Potassium 4.8 3.5-5.1 Lvl) [facility] CenterPgsjqifVRYBJCEXQSHA7456-11-04 08:58:00 Test Item Value Reference Range Interpretation Comments AGAP (test code = AGAP) 11.8 10.0-20.0 [facility] CenterVvlikluINYZFFSEJYVB0314-74-22 08:58:00 Test Item Value Reference Range Interpretation Comments eGFR (test code = eGFR) 45 [facility] CenterJwaphscRNCGSFWNUSYD0647-43-91 08:58:00 Test Item Value Reference Range Interpretation Comments BUN (test code = BUN) 25 7-22 [facility] CenterYprxkjuDKKWUJBRYDYH1425-22-64 08:58:00 Test Item Value Reference Range Interpretation Comments Glucose Lvl (test code = Glucose Lvl) 113 70-99 [facility] ArlingtonRoszehqHTKYUCSVJY0133-65-94 08:58:00 Test Item Value Reference Range Interpretation Comments MPV (test code = MPV) 7.8 7.4-10.4 [facility] HospitalIsjzoshNIHFBBJGBP0957-02-68 08:58:00 Test Item Value Reference Range Interpretation Comments Platelet (test code = Platelet) 301 133-450 [facility] HospitalThcrhkyPHGQBGHWAM3114-30-35 08:58:00 Test Item Value Reference Range Interpretation Comments RDW (test code = RDW) 14.1 11.5-14.5 [facility] HospitalXayuebnKFXQQOVLSK5563-71-07 08:58:00 Test Item Value Reference Range Interpretation Comments MCH (test code = MCH) 29.9 pg 27.0-31.0 [facility] HospitalFqibatnIWKOKAMJZX7815-43-37 08:58:00 Test Item Value Reference Range Interpretation Comments MCV (test code = MCV) 89.6 80.0-98.0 [facility] HospitalAgpqidkRVYNZTWAER2000-58-52 08:58:00 Test Item Value Reference Range Interpretation Comments MCHC (test code = MCHC) 33.4 32.0-36.0 [facility] HospitalJnfmllkJXYIQMGCWI0282-12-55 08:58:00 Test Item Value Reference Range Interpretation Comments Hct (test code = Hct) 34.3 36.0-48.0 [facility] HospitalUrbprvaZTPEICYEBP9541-11-05 08:58:00 Test Item Value Reference Range Interpretation Comments Hgb (test code = Hgb) 11.5 12.0-16.0 [facility] HospitalTvfhgrpJIIFNSHWOK0729-21-94 08:58:00 Test Item Value Reference Range Interpretation Comments RBC (test code = RBC) 3.83 4.20-5.40 [facility] HospitalAtkvuehZEQTDCZGYD2385-80-04 08:58:00 Test Item Value Reference Range Interpretation Comments WBC (test code = WBC) 8.2 3.7-10.4 [facility] HospitalBfxdptrEAJPBAMBWN7004-29-70 08:58:00 Test Item Value Reference Range Interpretation Comments Lymphocytes # (test code = Lymphocytes 1.9 1.0-5.5 #) [facility] HospitalJaobhckKNSKBENKHQ5868-79-48 08:58:00 Test Item Value Reference Range Interpretation Comments Segs-Bands # (test code = Segs-Bands #) 5.5 1.5-8.1 [facility] HospitalFpstluwBIOFSYVRAC7168-06-94 08:58:00 Test Item Value Reference Range Interpretation Comments Eosinophils (test code = 1.4 See_Comment [A utomated message] The Eosinophils) system which ge nerated this result tra nsmitted reference range : <=4.0. The reference r robbie was not used to int erpret this result as normal/abnormal . [facility] HospitalFbwtwkrGPCXKGRWDA0747-77-77 08:58:00 Test Item Value Reference Range Interpretation Comments Basophils (test code = 0.5 See_Comment [Aut omated message] The Basophils) system which ge nerated this result tra nsmitted reference range : <=1.0. The reference r robbie was not used to int erpret this result as normal/abnormal . [facility] HospitalBclmxrkKGUCWASTGW1474-32-95 08:58:00 Test Item Value Reference Range Interpretation Comments Monocytes (test code = Monocytes) 9.1 2.0-12.0 [facility] HospitalGeaegvcGVSSYPGBYG3387-67-86 08:58:00 Test Item Value Reference Range Interpretation Comments Segs (test code = Segs) 66.2 45.0-75.0 [facility] HospitalBwjvgvbBZHSTBAKGQ2269-22-15 08:58:00 Test Item Value Reference Range Interpretation Comments Lymphocytes (test code = Lymphocytes) 22.8 20.0-40.0 [facility] HospitalQhersgcXWBMTQBUCJ4312-34-59 08:58:00 Test Item Value Reference Range Interpretation Comments Eosinophils # (test code 0.1 See_Comment [A utomated message] The = Eosinophils #) system whic h generated this result tra nsmitted reference range : <=0.5. The reference r robbie was not used to int erpret this result as normal/abnormal . [facility] HospitalFasqmmsVNXZMMYASR1087-83-00 08:58:00 Test Item Value Reference Range Interpretation Comments Monocytes # (test code 0.7 See_Comment [Aut omated message] The = Monocytes #) system which generated this result tra nsmitted reference range : <=0.8. The reference r robbie was not used to int erpret this result as normal/abnormal . [facility] ArlingtonKamelio VSESY0964-96-45 08:58:00 Test Item Value Reference Range Interpretation Comments Phosphorus (test code = Phosphorus) 2.9 2.5-4.5 [facility] ATIHU7441-60-54 08:58:00 Test Item Value Reference Range Interpretation Comments Magnesium Lvl (test code = Magnesium 2.4 1.8-2.4 Lvl) [facility]xx[facility]UGOGCXIJZVMI4572-72-89 08:58:00 Test Item Value Reference Range Interpretation Comments Sodium Lvl (test code = Sodium Lvl) 139 135-145 [facility] CenterPrddzctCNLHGCLMOHJW2055-07-00 08:58:00 Test Item Value Reference Range Interpretation Comments Creatinine Lvl (test code = Creatinine 1.14 0.50-1.40 Lvl) [facility] CenterTawhaizWXLMKCMSUEDX1490-72-44 08:58:00 Test Item Value Reference Range Interpretation Comments Chloride Lvl (test code = Chloride Lvl) 104 95-109 [facility] CenterQjviawoMTYGOBUZLVTX2607-46-43 08:58:00 Test Item Value Reference Range Interpretation Comments CO2 (test code = CO2) 28 24-32 [facility] CenterRqtpljkXKVUTRLNJIGK9153-28-52 08:58:00 Test Item Value Reference Range Interpretation Comments Calcium Lvl (test code = Calcium Lvl) 8.7 8.5-10.5 [facility] CenterIshmebqVVSWTGLUCCTZ3670-20-45 08:58:00 Test Item Value Reference Range Interpretation Comments Potassium Lvl (test code = Potassium 4.8 3.5-5.1 Lvl) [facility] CenterXkzshojBPNJAWXRDLBO2162-25-38 08:58:00 Test Item Value Reference Range Interpretation Comments AGAP (test code = AGAP) 11.8 10.0-20.0 [facility] CenterTufulutIBYVAWHUMGHX1497-95-10 08:58:00 Test Item Value Reference Range Interpretation Comments eGFR (test code = eGFR) 45 [facility] CenterUsqcqspQXCHICESYRWL1873-68-43 08:58:00 Test Item Value Reference Range Interpretation Comments BUN (test code = BUN) 25 7-22 [facility] CenterYzdbdohCVFIPUUHEYDP8511-48-22 08:58:00 Test Item Value Reference Range Interpretation Comments Glucose Lvl (test code = Glucose Lvl) 113 70-99 [facility] HospitalBeynfctBVVCCAXSDB5013-04-80 08:58:00 Test Item Value Reference Range Interpretation Comments MPV (test code = MPV) 7.8 7.4-10.4 [facility] HospitalHrrlfzeFNGIPBPNTN5528-48-80 08:58:00 Test Item Value Reference Range Interpretation Comments Platelet (test code = Platelet) 301 133-450 [facility] HospitalKuhggduLPJKABACHQ8609-10-39 08:58:00 Test Item Value Reference Range Interpretation Comments RDW (test code = RDW) 14.1 11.5-14.5 [facility] HospitalImbcthpVPRTFPEHKY5284-47-03 08:58:00 Test Item Value Reference Range Interpretation Comments MCH (test code = MCH) 29.9 pg 27.0-31.0 [facility] HospitalTlciovbUMMJRBGZDO4286-91-58 08:58:00 Test Item Value Reference Range Interpretation Comments MCV (test code = MCV) 89.6 80.0-98.0 [facility] HospitalBgcssusPNHZPTQEJK3707-61-86 08:58:00 Test Item Value Reference Range Interpretation Comments MCHC (test code = MCHC) 33.4 32.0-36.0 [facility] HospitalIbtzymjMPSRBYKAWW5478-71-11 08:58:00 Test Item Value Reference Range Interpretation Comments Hct (test code = Hct) 34.3 36.0-48.0 [facility] HospitalHuzjiclJRVZZPPHEV6054-56-68 08:58:00 Test Item Value Reference Range Interpretation Comments Hgb (test code = Hgb) 11.5 12.0-16.0 [facility] HospitalRzbyewvDKJGUMJTII1996-71-21 08:58:00 Test Item Value Reference Range Interpretation Comments RBC (test code = RBC) 3.83 4.20-5.40 [facility] HospitalPtwrzldDNEALZPOZV9728-40-59 08:58:00 Test Item Value Reference Range Interpretation Comments WBC (test code = WBC) 8.2 3.7-10.4 [facility] HospitalOmjiqbuZKXVGFMFEJ5271-88-88 08:58:00 Test Item Value Reference Range Interpretation Comments Lymphocytes # (test code = Lymphocytes 1.9 1.0-5.5 #) [facility] HospitalVtnohzpWAIHVAOZNV6931-40-39 08:58:00 Test Item Value Reference Range Interpretation Comments Segs-Bands # (test code = Segs-Bands #) 5.5 1.5-8.1 [facility] HospitalZndeyuhBLASMUBZPG3485-07-72 08:58:00 Test Item Value Reference Range Interpretation Comments Eosinophils (test code = 1.4 See_Comment [A utomated message] The Eosinophils) system which ge nerated this result tra nsmitted reference range : <=4.0. The reference r robbie was not used to int erpret this result as normal/abnormal . [facility] HospitalQknubxgGNGTYQBBDV0308-97-63 08:58:00 Test Item Value Reference Range Interpretation Comments Basophils (test code = 0.5 See_Comment [Aut omated message] The Basophils) system which ge nerated this result tra nsmitted reference range : <=1.0. The reference r robbie was not used to int erpret this result as normal/abnormal . [facility] HospitalQmcgyyrYBYJWOHCNZ8522-37-95 08:58:00 Test Item Value Reference Range Interpretation Comments Monocytes (test code = Monocytes) 9.1 2.0-12.0 [facility] HospitalEupyxgbOUCHJDBZOP9740-02-91 08:58:00 Test Item Value Reference Range Interpretation Comments Segs (test code = Segs) 66.2 45.0-75.0 [facility] HospitalAztsbesGHMUEVTVPQ8962-60-39 08:58:00 Test Item Value Reference Range Interpretation Comments Lymphocytes (test code = Lymphocytes) 22.8 20.0-40.0 [facility] HospitalSesebjaQGICHZCCTJ3318-72-27 08:58:00 Test Item Value Reference Range Interpretation Comments Eosinophils # (test code 0.1 See_Comment [A utomated message] The = Eosinophils #) system whic h generated this result tra nsmitted reference range : <=0.5. The reference r robbie was not used to int erpret this result as normal/abnormal . [facility] HospitalZwrnziaZQFNSEUHJU5803-45-22 08:58:00 Test Item Value Reference Range Interpretation Comments Monocytes # (test code 0.7 See_Comment [Aut omated message] The = Monocytes #) system which generated this result tra nsmitted reference range : <=0.8. The reference r robbie was not used to int erpret this result as normal/abnormal . [facility] ArlingtonKamelio YUEDW5441-40-39 08:58:00 Test Item Value Reference Range Interpretation Comments Phosphorus (test code = Phosphorus) 2.9 2.5-4.5 [facility] ArlingtonKamelio ZDGHT7489-46-65 08:58:00 Test Item Value Reference Range Interpretation Comments Magnesium Lvl (test code = Magnesium 2.4 1.8-2.4 Lvl) [facility] CenterPjghfvlQQWNAUYFSVUG2847-26-22 08:58:00 Test Item Value Reference Range Interpretation Comments Sodium Lvl (test code = Sodium Lvl) 139 135-145 [facility] CenterIprgwspYIIZHWJRZIZM8746-19-52 08:58:00 Test Item Value Reference Range Interpretation Comments Creatinine Lvl (test code = Creatinine 1.14 0.50-1.40 Lvl) [facility] CenterZwhdxwkRGKEZOTDNXWO1858-02-76 08:58:00 Test Item Value Reference Range Interpretation Comments Chloride Lvl (test code = Chloride Lvl) 104 95-109 [facility] CenterGgpuhneBQVENNIAEBVJ9590-85-74 08:58:00 Test Item Value Reference Range Interpretation Comments CO2 (test code = CO2) 28 24-32 [facility] CenterQpyudvpDJVWXMPXBMMK4804-93-59 08:58:00 Test Item Value Reference Range Interpretation Comments Calcium Lvl (test code = Calcium Lvl) 8.7 8.5-10.5 [facility] CenterKjbiuksFXLHCNLWCGOF5541-47-17 08:58:00 Test Item Value Reference Range Interpretation Comments Potassium Lvl (test code = Potassium 4.8 3.5-5.1 Lvl) [facility] CenterIqrubtsIIRKFTSVJTGZ6402-63-58 08:58:00 Test Item Value Reference Range Interpretation Comments AGAP (test code = AGAP) 11.8 10.0-20.0 [facility] CenterQjfagfbRAWNNQUYCHRB7473-39-06 08:58:00 Test Item Value Reference Range Interpretation Comments eGFR (test code = eGFR) 45 [facility] CenterVjrukjzNGEJZOPRCSHB9842-26-98 08:58:00 Test Item Value Reference Range Interpretation Comments BUN (test code = BUN) 25 7-22 [facility] CenterDelbtobYBQXJANYUEJZ3367-85-29 08:58:00 Test Item Value Reference Range Interpretation Comments Glucose Lvl (test code = Glucose Lvl) 113 70-99 [facility] HospitalGgnwfggNHBQYDGWPL0731-47-08 08:58:00 Test Item Value Reference Range Interpretation Comments MPV (test code = MPV) 7.8 7.4-10.4 [facility] HospitalTituxlkSAULDEAUAW2513-09-53 08:58:00 Test Item Value Reference Range Interpretation Comments Platelet (test code = Platelet) 301 133-450 [facility] HospitalRirtbnbRGSLFLNMWK8611-88-37 08:58:00 Test Item Value Reference Range Interpretation Comments RDW (test code = RDW) 14.1 11.5-14.5 [facility] HospitalQbmokpaJBDODWJZWP8755-29-25 08:58:00 Test Item Value Reference Range Interpretation Comments MCH (test code = MCH) 29.9 pg 27.0-31.0 [facility] HospitalNwbrvrvNGNWOTXUFC5229-75-96 08:58:00 Test Item Value Reference Range Interpretation Comments MCV (test code = MCV) 89.6 80.0-98.0 [facility] HospitalJntrvpwFLBWEQDTMS5541-52-96 08:58:00 Test Item Value Reference Range Interpretation Comments MCHC (test code = MCHC) 33.4 32.0-36.0 [facility] HospitalWgygqbgVBXEKJIYLA7556-17-06 08:58:00 Test Item Value Reference Range Interpretation Comments Hct (test code = Hct) 34.3 36.0-48.0 [facility] HospitalLzyjbyzBAMGVUVZPC6355-70-95 08:58:00 Test Item Value Reference Range Interpretation Comments Hgb (test code = Hgb) 11.5 12.0-16.0 [facility] HospitalUmyqmyuJSGTEDYOKE3996-21-26 08:58:00 Test Item Value Reference Range Interpretation Comments RBC (test code = RBC) 3.83 4.20-5.40 [facility] HospitalBnqbjdaJPZMJSTIYI8388-34-85 08:58:00 Test Item Value Reference Range Interpretation Comments WBC (test code = WBC) 8.2 3.7-10.4 [facility] HospitalYusootpJXZDKOCOLN2980-70-87 08:58:00 Test Item Value Reference Range Interpretation Comments Lymphocytes # (test code = Lymphocytes 1.9 1.0-5.5 #) [facility] HospitalQuxzirlRSEPBMCDOX8359-65-54 08:58:00 Test Item Value Reference Range Interpretation Comments Segs-Bands # (test code = Segs-Bands #) 5.5 1.5-8.1 [facility] HospitalWwzsfemXMYVPHSZSP0280-19-42 08:58:00 Test Item Value Reference Range Interpretation Comments Eosinophils (test code = 1.4 See_Comment [A utomated message] The Eosinophils) system which ge nerated this result tra nsmitted reference range : <=4.0. The reference r robbie was not used to int erpret this result as normal/abnormal . [facility] HospitalDejqnqsGUYHSUIZKA1709-53-27 08:58:00 Test Item Value Reference Range Interpretation Comments Basophils (test code = 0.5 See_Comment [Aut omated message] The Basophils) system which ge nerated this result tra nsmitted reference range : <=1.0. The reference r robbie was not used to int erpret this result as normal/abnormal . [facility] HospitalRddcwrlWXVIYKMOBV3373-73-37 08:58:00 Test Item Value Reference Range Interpretation Comments Monocytes (test code = Monocytes) 9.1 2.0-12.0 [facility] HospitalIbrllilTGUEDTPRNU0188-92-19 08:58:00 Test Item Value Reference Range Interpretation Comments Segs (test code = Segs) 66.2 45.0-75.0 [facility] HospitalRtbqwlkDBJYIWFYBZ5738-37-15 08:58:00 Test Item Value Reference Range Interpretation Comments Lymphocytes (test code = Lymphocytes) 22.8 20.0-40.0 [facility] HospitalKkyrmuyKUQXHFQILY7570-43-40 08:58:00 Test Item Value Reference Range Interpretation Comments Eosinophils # (test code 0.1 See_Comment [A utomated message] The = Eosinophils #) system whic h generated this result tra nsmitted reference range : <=0.5. The reference r robbie was not used to int erpret this result as normal/abnormal . [facility] HospitalFgrkmwsJQYZLMJHZX0065-73-90 08:58:00 Test Item Value Reference Range Interpretation Comments Monocytes # (test code 0.7 See_Comment [Aut omated message] The = Monocytes #) system which generated this result tra nsmitted reference range : <=0.8. The reference r robbie was not used to int erpret this result as normal/abnormal . [facility] ArlingtonKamelio QUVXG1760-92-92 08:58:00 Test Item Value Reference Range Interpretation Comments Phosphorus (test code = Phosphorus) 2.9 2.5-4.5 [facility] ArlingtonKamelio KYVBK8511-58-27 08:58:00 Test Item Value Reference Range Interpretation Comments Magnesium Lvl (test code = Magnesium 2.4 1.8-2.4 Lvl) [facility] CenterPhccwlkJCYVAYJODUHC2664-10-84 08:58:00 Test Item Value Reference Range Interpretation Comments Sodium Lvl (test code = Sodium Lvl) 139 135-145 [facility] CenterNfegylmBYPHZYSDKDKH6011-77-43 08:58:00 Test Item Value Reference Range Interpretation Comments Creatinine Lvl (test code = Creatinine 1.14 0.50-1.40 Lvl) [facility] CenterUiuspbeKHRBWWKFQTXH2938-84-27 08:58:00 Test Item Value Reference Range Interpretation Comments Chloride Lvl (test code = Chloride Lvl) 104 95-109 [facility] CenterApwizqmJPJZKCJTUPAR8348-70-52 08:58:00 Test Item Value Reference Range Interpretation Comments CO2 (test code = CO2) 28 24-32 [facility] CenterDtepisqAMNRVPGVQRFR1695-25-01 08:58:00 Test Item Value Reference Range Interpretation Comments Calcium Lvl (test code = Calcium Lvl) 8.7 8.5-10.5 [facility] CenterHvavbklYXQSFJLEQIKX5774-13-22 08:58:00 Test Item Value Reference Range Interpretation Comments Potassium Lvl (test code = Potassium 4.8 3.5-5.1 Lvl) [facility] CenterSefxhqmAAHEAGQFQWTZ3904-59-47 08:58:00 Test Item Value Reference Range Interpretation Comments AGAP (test code = AGAP) 11.8 10.0-20.0 [facility] CenterLngtvshUYIXZXYBQDRU6172-15-02 08:58:00 Test Item Value Reference Range Interpretation Comments eGFR (test code = eGFR) 45 [facility] CenterNvlecmhVFBQQXHGRNXL4720-60-45 08:58:00 Test Item Value Reference Range Interpretation Comments BUN (test code = BUN) 25 7-22 [facility] CenterRcvknytLRMODBNJOUIC1008-21-77 08:58:00 Test Item Value Reference Range Interpretation Comments Glucose Lvl (test code = Glucose Lvl) 113 70-99 [facility] HospitalLztsumpPPMJQRUWMB6636-52-12 08:58:00 Test Item Value Reference Range Interpretation Comments MPV (test code = MPV) 7.8 7.4-10.4 [facility] HospitalDymgsqjGIPKEUSJSI7313-41-08 08:58:00 Test Item Value Reference Range Interpretation Comments Platelet (test code = Platelet) 301 133-450 [facility] HospitalSplymivMHGANLILXQ1961-31-24 08:58:00 Test Item Value Reference Range Interpretation Comments RDW (test code = RDW) 14.1 11.5-14.5 [facility] HospitalEsbxtqyDYVIOGTYSY4467-92-58 08:58:00 Test Item Value Reference Range Interpretation Comments MCH (test code = MCH) 29.9 pg 27.0-31.0 [facility] HospitalDncmbfmPIMNFOXDEB2289-83-34 08:58:00 Test Item Value Reference Range Interpretation Comments MCV (test code = MCV) 89.6 80.0-98.0 [facility] HospitalWajrhzmCAZFJCMSBN6937-83-85 08:58:00 Test Item Value Reference Range Interpretation Comments MCHC (test code = MCHC) 33.4 32.0-36.0 [facility] HospitalNlnoqcvMHMTNDYSZE5320-98-01 08:58:00 Test Item Value Reference Range Interpretation Comments Hct (test code = Hct) 34.3 36.0-48.0 [facility]5450[facility] 08:58:00 Test Item Value Reference Range Interpretation Comments Hgb (test code = Hgb) 11.5 12.0-16.0 [facility]IgfcaeeQQSBKYWDKL8044-83-09 08:58:00 Test Item Value Reference Range Interpretation Comments RBC (test code = RBC) 3.83 4.20-5.40 [facility]SkyblodBDXZLZELUY6183-33-99 08:58:00 Test Item Value Reference Range Interpretation Comments WBC (test code = WBC) 8.2 3.7-10.4 [facility]AcxhgowAMELGFRGAR8951-02-25 08:58:00 Test Item Value Reference Range Interpretation Comments Lymphocytes # (test code = Lymphocytes 1.9 1.0-5.5 #) [facility]HosnvkgJYKAARHCOY1845-37-65 08:58:00 Test Item Value Reference Range Interpretation Comments Segs-Bands # (test code = Segs-Bands #) 5.5 1.5-8.1 [facility]EeqbihzXHUMITWWHJ5216-84-54 08:58:00 Test Item Value Reference Range Interpretation Comments Eosinophils (test code = 1.4 See_Comment [A utomated message] The Eosinophils) system which ge nerated this result tra nsmitted reference range : <=4.0. The reference r robbie was not used to int erpret this result as normal/abnormal . [facility]SopekdxZTPJFIGMQJ0602-56-43 08:58:00 Test Item Value Reference Range Interpretation Comments Basophils (test code = 0.5 See_Comment [Aut omated message] The Basophils) system which ge nerated this result tra nsmitted reference range : <=1.0. The reference r robbie was not used to int erpret this result as normal/abnormal . [facility]GfeuzahMJLRBXKDXC7246-63-70 08:58:00 Test Item Value Reference Range Interpretation Comments Monocytes (test code = Monocytes) 9.1 2.0-12.0 [facility]ShztuiaYKTAKZFMAC7601-81-29 08:58:00 Test Item Value Reference Range Interpretation Comments Segs (test code = Segs) 66.2 45.0-75.0 [facility]LobbbreQWUUIAFJAK2054-56-17 08:58:00 Test Item Value Reference Range Interpretation Comments Lymphocytes (test code = Lymphocytes) 22.8 20.0-40.0 [facility]TmchshbFPZFRLYCVR8305-44-72 08:58:00 Test Item Value Reference Range Interpretation Comments Eosinophils # (test code 0.1 See_Comment [A utomated message] The = Eosinophils #) system whic h generated this result tra nsmitted reference range : <=0.5. The reference r robbie was not used to int erpret this result as normal/abnormal . [facility]WbgpbwmJYSEJCWKIY0438-61-59 08:58:00 Test Item Value Reference Range Interpretation Comments Monocytes # (test code 0.7 See_Comment [Aut omated message] The = Monocytes #) system which generated this result tra nsmitted reference range : <=0.8. The reference r robbie was not used to int erpret this result as normal/abnormal . [facility]2016-09-01 09:58:00 Test Item Value Reference Range Interpretation Comments Phosphorus (test code = Phosphorus) 3.7 2.5-4.5 [facility]2016-09-01 09:58:00 Test Item Value Reference Range Interpretation Comments Magnesium Lvl (test code = Magnesium 2.1 1.8-2.4 Lvl) [facility]2016-09-01 09:58:00 Test Item Value Reference Range Interpretation Comments eGFR (test code = eGFR) 42 [facility]2016-09-01 09:58:00 Test Item Value Reference Range Interpretation Comments AGAP (test code = AGAP) 12.9 10.0-20.0 [facility]2016-09-01 09:58:00 Test Item Value Reference Range Interpretation Comments Chloride Lvl (test code = Chloride Lvl) 104 95-109 [facility]2016-09-01 09:58:00 Test Item Value Reference Range Interpretation Comments CO2 (test code = CO2) 25 24-32 [facility]2016-09-01 09:58:00 Test Item Value Reference Range Interpretation Comments Calcium Lvl (test code = Calcium Lvl) 8.5 8.5-10.5 [facility]2016-09-01 09:58:00 Test Item Value Reference Range Interpretation Comments Potassium Lvl (test code = Potassium 3.9 3.5-5.1 Lvl) [place] 250966-09-01 09:58:00 Test Item Value Reference Range Interpretation Comments Creatinine Lvl (test code = Creatinine 1.22 0.50-1.40 Lvl) [facility]2016-09-01 09:58:00 Test Item Value Reference Range Interpretation Comments Sodium Lvl (test code = Sodium Lvl) 138 135-145 [facility]2016-09-01 09:58:00 Test Item Value Reference Range Interpretation Comments BUN (test code = BUN) 24 7-22 [facility]2016-09-01 09:58:00 Test Item Value Reference Range Interpretation Comments Glucose Lvl (test code = Glucose Lvl) 92 70-99 [facility]2016-09-01 09:58:00 Test Item Value Reference Range Interpretation Comments Phosphorus (test code = Phosphorus) 3.7 2.5-4.5 [facility]2016-09-01 09:58:00 Test Item Value Reference Range Interpretation Comments Magnesium Lvl (test code = Magnesium 2.1 1.8-2.4 Lvl) [facility]2016-09-01 09:58:00 Test Item Value Reference Range Interpretation Comments eGFR (test code = eGFR) 42 [facility]2016-09-01 09:58:00 Test Item Value Reference Range Interpretation Comments AGAP (test code = AGAP) 12.9 10.0-20.0 [facility]2016-09-01 09:58:00 Test Item Value Reference Range Interpretation Comments Chloride Lvl (test code = Chloride Lvl) 104 95-109 [facility]2016-09-01 09:58:00 Test Item Value Reference Range Interpretation Comments CO2 (test code = CO2) 25 24-32 [facility]2016-09-01 09:58:00 Test Item Value Reference Range Interpretation Comments Calcium Lvl (test code = Calcium Lvl) 8.5 8.5-10.5 [facility]2016-09-01 09:58:00 Test Item Value Reference Range Interpretation Comments Potassium Lvl (test code = Potassium 3.9 3.5-5.1 Lvl) [facility]2016-09-01 09:58:00 Test Item Value Reference Range Interpretation Comments Creatinine Lvl (test code = Creatinine 1.22 0.50-1.40 Lvl) [facility]2016-09-01 09:58:00 Test Item Value Reference Range Interpretation Comments Sodium Lvl (test code = Sodium Lvl) 138 135-145 [facility]2016-09-01 09:58:00 Test Item Value Reference Range Interpretation Comments BUN (test code = BUN) 24 7-22 [facility]2016-09-01 09:58:00 Test Item Value Reference Range Interpretation Comments Glucose Lvl (test code = Glucose Lvl) 92 70-99 [facility]2016-09-01 09:58:00 Test Item Value Reference Range Interpretation Comments Phosphorus (test code = Phosphorus) 3.7 2.5-4.5 [facility]2016-09-01 09:58:00 Test Item Value Reference Range Interpretation Comments Magnesium Lvl (test code = Magnesium 2.1 1.8-2.4 Lvl) [facility]2016-09-01 09:58:00 Test Item Value Reference Range Interpretation Comments eGFR (test code = eGFR) 42 [facility]2016-09-01 09:58:00 Test Item Value Reference Range Interpretation Comments AGAP (test code = AGAP) 12.9 10.0-20.0 [facility]2016-09-01 09:58:00 Test Item Value Reference Range Interpretation Comments Chloride Lvl (test code = Chloride Lvl) 104 95-109 [facility]2016-09-01 09:58:00 Test Item Value Reference Range Interpretation Comments CO2 (test code = CO2) 25 24-32 [facility]2016-09-01 09:58:00 Test Item Value Reference Range Interpretation Comments Calcium Lvl (test code = Calcium Lvl) 8.5 8.5-10.5 [facility]2016-09-01 09:58:00 Test Item Value Reference Range Interpretation Comments Potassium Lvl (test code = Potassium 3.9 3.5-5.1 Lvl) [facility]2016-09-01 09:58:00 Test Item Value Reference Range Interpretation Comments Creatinine Lvl (test code = Creatinine 1.22 0.50-1.40 Lvl) [facility]2016-09-01 09:58:00 Test Item Value Reference Range Interpretation Comments Sodium Lvl (test code = Sodium Lvl) 138 135-145 [facility]2016-09-01 09:58:00 Test Item Value Reference Range Interpretation Comments BUN (test code = BUN) 24 7-22 [facility]2016-09-01 09:58:00 Test Item Value Reference Range Interpretation Comments Glucose Lvl (test code = Glucose Lvl) 92 70-99 [facility]2016-09-01 09:58:00 Test Item Value Reference Range Interpretation Comments Phosphorus (test code = Phosphorus) 3.7 2.5-4.5 [facility]2016-09-01 09:58:00 Test Item Value Reference Range Interpretation Comments Magnesium Lvl (test code = Magnesium 2.1 1.8-2.4 Lvl) [facility]2016-09-01 09:58:00 Test Item Value Reference Range Interpretation Comments eGFR (test code = eGFR) 42 [facility]2016-09-01 09:58:00 Test Item Value Reference Range Interpretation Comments AGAP (test code = AGAP) 12.9 10.0-20.0 [facility]2016-09-01 09:58:00 Test Item Value Reference Range Interpretation Comments Chloride Lvl (test code = Chloride Lvl) 104 95-109 [facility]2016-09-01 09:58:00 Test Item Value Reference Range Interpretation Comments CO2 (test code = CO2) 25 24-32 [facility]2016-09-01 09:58:00 Test Item Value Reference Range Interpretation Comments Calcium Lvl (test code = Calcium Lvl) 8.5 8.5-10.5 [facility]2016-09-01 09:58:00 Test Item Value Reference Range Interpretation Comments Potassium Lvl (test code = Potassium 3.9 3.5-5.1 Lvl) [facility]2016-09-01 09:58:00 Test Item Value Reference Range Interpretation Comments Creatinine Lvl (test code = Creatinine 1.22 0.50-1.40 Lvl) [facility]2016-09-01 09:58:00 Test Item Value Reference Range Interpretation Comments Sodium Lvl (test code = Sodium Lvl) 138 135-145 [facility]2016-09-01 09:58:00 Test Item Value Reference Range Interpretation Comments BUN (test code = BUN) 24 7- [facility]2016-09-01 09:58:00 Test Item Value Reference Range Interpretation Comments Glucose Lvl (test code = Glucose Lvl) 92 70-99 [facility]2016-09-01 09:58:00 Test Item Value Reference Range Interpretation Comments Phosphorus (test code = Phosphorus) 3.7 2.5-4.5 [facility]2016-09-01 09:58:00 Test Item Value Reference Range Interpretation Comments Magnesium Lvl (test code = Magnesium 2.1 1.8-2.4 Lvl) [facility]2016-09-01 09:58:00 Test Item Value Reference Range Interpretation Comments eGFR (test code = eGFR) 42 [facility]2016-09-01 09:58:00 Test Item Value Reference Range Interpretation Comments AGAP (test code = AGAP) 12.9 10.0-20.0 [facility]2016-09-01 09:58:00 Test Item Value Reference Range Interpretation Comments Chloride Lvl (test code = Chloride Lvl) 104 95-109 [facility]2016-09-01 09:58:00 Test Item Value Reference Range Interpretation Comments CO2 (test code = CO2) 25 24-32 [facility]2016-09-01 09:58:00 Test Item Value Reference Range Interpretation Comments Calcium Lvl (test code = Calcium Lvl) 8.5 8.5-10.5 [facility]2016-09-01 09:58:00 Test Item Value Reference Range Interpretation Comments Potassium Lvl (test code = Potassium 3.9 3.5-5.1 Lvl) [facility]2016-09-01 09:58:00 Test Item Value Reference Range Interpretation Comments Creatinine Lvl (test code = Creatinine 1.22 0.50-1.40 Lvl) [facility]2016-09-01 09:58:00 Test Item Value Reference Range Interpretation Comments Sodium Lvl (test code = Sodium Lvl) 138 135-145 [facility]2016-09-01 09:58:00 Test Item Value Reference Range Interpretation Comments BUN (test code = BUN) 24 7- [facility]2016-09-01 09:58:00 Test Item Value Reference Range Interpretation Comments Glucose Lvl (test code = Glucose Lvl) 92 70-99 [facility]2016-09-01 09:58:00 Test Item Value Reference Range Interpretation Comments Phosphorus (test code = Phosphorus) 3.7 2.5-4.5 [facility]2016-09-01 09:58:00 Test Item Value Reference Range Interpretation Comments Magnesium Lvl (test code = Magnesium 2.1 1.8-2.4 Lvl) [facility]2016-09-01 09:58:00 Test Item Value Reference Range Interpretation Comments eGFR (test code = eGFR) 42 [facility]2016-09-01 09:58:00 Test Item Value Reference Range Interpretation Comments AGAP (test code = AGAP) 12.9 10.0-20.0 [facility]2016-09-01 09:58:00 Test Item Value Reference Range Interpretation Comments Chloride Lvl (test code = Chloride Lvl) 104 95-109 [facility]2016-09-01 09:58:00 Test Item Value Reference Range Interpretation Comments CO2 (test code = CO2) 25 24-32 [facility]2016-09-01 09:58:00 Test Item Value Reference Range Interpretation Comments Calcium Lvl (test code = Calcium Lvl) 8.5 8.5-10.5 [facility]2016-09-01 09:58:00 Test Item Value Reference Range Interpretation Comments Potassium Lvl (test code = Potassium 3.9 3.5-5.1 Lvl) [facility]2016-09-01 09:58:00 Test Item Value Reference Range Interpretation Comments Creatinine Lvl (test code = Creatinine 1.22 0.50-1.40 Lvl) [facility]2016-09-01 09:58:00 Test Item Value Reference Range Interpretation Comments Sodium Lvl (test code = Sodium Lvl) 138 135-145 [facility]2016-09-01 09:58:00 Test Item Value Reference Range Interpretation Comments BUN (test code = BUN) 24 7-22 [facility]2016-09-01 09:58:00 Test Item Value Reference Range Interpretation Comments Glucose Lvl (test code = Glucose Lvl) 92 70-99 [facility]2016-09-01 09:58:00 Test Item Value Reference Range Interpretation Comments Phosphorus (test code = Phosphorus) 3.7 2.5-4.5 [facility]2016-09-01 09:58:00 Test Item Value Reference Range Interpretation Comments Magnesium Lvl (test code = Magnesium 2.1 1.8-2.4 Lvl) [facility]2016-09-01 09:58:00 Test Item Value Reference Range Interpretation Comments eGFR (test code = eGFR) 42 [facility]2016-09-01 09:58:00 Test Item Value Reference Range Interpretation Comments AGAP (test code = AGAP) 12.9 10.0-20.0 [facility]2016-09-01 09:58:00 Test Item Value Reference Range Interpretation Comments Chloride Lvl (test code = Chloride Lvl) 104 95-109 [facility]2016-09-01 09:58:00 Test Item Value Reference Range Interpretation Comments CO2 (test code = CO2) 25 24-32 [facility]2016-09-01 09:58:00 Test Item Value Reference Range Interpretation Comments Calcium Lvl (test code = Calcium Lvl) 8.5 8.5-10.5 [facility]2016-09-01 09:58:00 Test Item Value Reference Range Interpretation Comments Potassium Lvl (test code = Potassium 3.9 3.5-5.1 Lvl) [facility]2016-09-01 09:58:00 Test Item Value Reference Range Interpretation Comments Creatinine Lvl (test code = Creatinine 1.22 0.50-1.40 Lvl) [facility]2016-09-01 09:58:00 Test Item Value Reference Range Interpretation Comments Sodium Lvl (test code = Sodium Lvl) 138 135-145 [facility]2016-09-01 09:58:00 Test Item Value Reference Range Interpretation Comments BUN (test code = BUN) 24 7-22 [facility]2016-09-01 09:58:00 Test Item Value Reference Range Interpretation Comments Glucose Lvl (test code = Glucose Lvl) 92 70-99 [facility]2016-09-01 09:58:00 Test Item Value Reference Range Interpretation Comments Phosphorus (test code = Phosphorus) 3.7 2.5-4.5 [facility]2016-09-01 09:58:00 Test Item Value Reference Range Interpretation Comments Magnesium Lvl (test code = Magnesium 2.1 1.8-2.4 Lvl) [facility]2016-09-01 09:58:00 Test Item Value Reference Range Interpretation Comments eGFR (test code = eGFR) 42 [facility]2016-09-01 09:58:00 Test Item Value Reference Range Interpretation Comments AGAP (test code = AGAP) 12.9 10.0-20.0 [facility]2016-09-01 09:58:00 Test Item Value Reference Range Interpretation Comments Chloride Lvl (test code = Chloride Lvl) 104 95-109 [facility]2016-09-01 09:58:00 Test Item Value Reference Range Interpretation Comments CO2 (test code = CO2) 25 24-32 [facility]2016-09-01 09:58:00 Test Item Value Reference Range Interpretation Comments Calcium Lvl (test code = Calcium Lvl) 8.5 8.5-10.5 [facility]2016-09-01 09:58:00 Test Item Value Reference Range Interpretation Comments Potassium Lvl (test code = Potassium 3.9 3.5-5.1 Lvl) [facility]2016-09-01 09:58:00 Test Item Value Reference Range Interpretation Comments Creatinine Lvl (test code = Creatinine 1.22 0.50-1.40 Lvl) [facility]2016-09-01 09:58:00 Test Item Value Reference Range Interpretation Comments Sodium Lvl (test code = Sodium Lvl) 138 135-145 [facility]2016-09-01 09:58:00 Test Item Value Reference Range Interpretation Comments BUN (test code = BUN) 24 7-22 [facility]2016-09-01 09:58:00 Test Item Value Reference Range Interpretation Comments Glucose Lvl (test code = Glucose Lvl) 92 70-99 [facility]2016-09-01 09:58:00 Test Item Value Reference Range Interpretation Comments Phosphorus (test code = Phosphorus) 3.7 2.5-4.5 [facility]2016-09-01 09:58:00 Test Item Value Reference Range Interpretation Comments Magnesium Lvl (test code = Magnesium 2.1 1.8-2.4 Lvl) [facility]2016-09-01 09:58:00 Test Item Value Reference Range Interpretation Comments eGFR (test code = eGFR) 42 [facility]2016-09-01 09:58:00 Test Item Value Reference Range Interpretation Comments AGAP (test code = AGAP) 12.9 10.0-20.0 [facility]2016-09-01 09:58:00 Test Item Value Reference Range Interpretation Comments Chloride Lvl (test code = Chloride Lvl) 104 95-109 [facility]2016-09-01 09:58:00 Test Item Value Reference Range Interpretation Comments CO2 (test code = CO2) 25 24-32 [facility]2016-09-01 09:58:00 Test Item Value Reference Range Interpretation Comments Calcium Lvl (test code = Calcium Lvl) 8.5 8.5-10.5 [facility]2016-09-01 09:58:00 Test Item Value Reference Range Interpretation Comments Potassium Lvl (test code = Potassium 3.9 3.5-5.1 Lvl) [facility]2016-09-01 09:58:00 Test Item Value Reference Range Interpretation Comments Creatinine Lvl (test code = Creatinine 1.22 0.50-1.40 Lvl) [facility]2016-09-01 09:58:00 Test Item Value Reference Range Interpretation Comments Sodium Lvl (test code = Sodium Lvl) 138 135-145 [facility]2016-09-01 09:58:00 Test Item Value Reference Range Interpretation Comments BUN (test code = BUN) 24 7-22 [facility]2016-09-01 09:58:00 Test Item Value Reference Range Interpretation Comments Glucose Lvl (test code = Glucose Lvl) 92 70-99 [facility]2016-09-01 09:58:00 Test Item Value Reference Range Interpretation Comments Phosphorus (test code = Phosphorus) 3.7 2.5-4.5 [facility]2016-09-01 09:58:00 Test Item Value Reference Range Interpretation Comments Magnesium Lvl (test code = Magnesium 2.1 1.8-2.4 Lvl) [facility]2016-09-01 09:58:00 Test Item Value Reference Range Interpretation Comments eGFR (test code = eGFR) 42 [facility]2016-09-01 09:58:00 Test Item Value Reference Range Interpretation Comments AGAP (test code = AGAP) 12.9 10.0-20.0 [facility]2016-09-01 09:58:00 Test Item Value Reference Range Interpretation Comments Chloride Lvl (test code = Chloride Lvl) 104 95-109 [facility]2016-09-01 09:58:00 Test Item Value Reference Range Interpretation Comments CO2 (test code = CO2) 25 24-32 [facility]2016-09-01 09:58:00 Test Item Value Reference Range Interpretation Comments Calcium Lvl (test code = Calcium Lvl) 8.5 8.5-10.5 [facility]2016-09-01 09:58:00 Test Item Value Reference Range Interpretation Comments Potassium Lvl (test code = Potassium 3.9 3.5-5.1 Lvl) [facility]2016-09-01 09:58:00 Test Item Value Reference Range Interpretation Comments Creatinine Lvl (test code = Creatinine 1.22 0.50-1.40 Lvl) [facility]2016-09-01 09:58:00 Test Item Value Reference Range Interpretation Comments Sodium Lvl (test code = Sodium Lvl) 138 135-145 [facility]2016-09-01 09:58:00 Test Item Value Reference Range Interpretation Comments BUN (test code = BUN) 24 7-22 [facility]2016-09-01 09:58:00 Test Item Value Reference Range Interpretation Comments Glucose Lvl (test code = Glucose Lvl) 92 70-99 [facility]2016-09-01 09:58:00 Test Item Value Reference Range Interpretation Comments Phosphorus (test code = Phosphorus) 3.7 2.5-4.5 [facility]2016-09-01 09:58:00 Test Item Value Reference Range Interpretation Comments Magnesium Lvl (test code = Magnesium 2.1 1.8-2.4 Lvl) [facility]2016-09-01 09:58:00 Test Item Value Reference Range Interpretation Comments eGFR (test code = eGFR) 42 [facility]2016-09-01 09:58:00 Test Item Value Reference Range Interpretation Comments AGAP (test code = AGAP) 12.9 10.0-20.0 [facility]2016-09-01 09:58:00 Test Item Value Reference Range Interpretation Comments Chloride Lvl (test code = Chloride Lvl) 104 95-109 [facility]2016-09-01 09:58:00 Test Item Value Reference Range Interpretation Comments CO2 (test code = CO2) 25 24-32 [facility]2016-09-01 09:58:00 Test Item Value Reference Range Interpretation Comments Calcium Lvl (test code = Calcium Lvl) 8.5 8.5-10.5 [facility]2016-09-01 09:58:00 Test Item Value Reference Range Interpretation Comments Potassium Lvl (test code = Potassium 3.9 3.5-5.1 Lvl) [facility]2016-09-01 09:58:00 Test Item Value Reference Range Interpretation Comments Creatinine Lvl (test code = Creatinine 1.22 0.50-1.40 Lvl) [facility]2016-09-01 09:58:00 Test Item Value Reference Range Interpretation Comments Sodium Lvl (test code = Sodium Lvl) 138 135-145 [facility]2016-09-01 09:58:00 Test Item Value Reference Range Interpretation Comments BUN (test code = BUN) 24 7-22 [facility]2016-09-01 09:58:00 Test Item Value Reference Range Interpretation Comments Glucose Lvl (test code = Glucose Lvl) 92 70-99 [facility]2016-09-01 09:58:00 Test Item Value Reference Range Interpretation Comments Phosphorus (test code = Phosphorus) 3.7 2.5-4.5 [facility]2016-09-01 09:58:00 Test Item Value Reference Range Interpretation Comments Magnesium Lvl (test code = Magnesium 2.1 1.8-2.4 Lvl) [facility]2016-09-01 09:58:00 Test Item Value Reference Range Interpretation Comments eGFR (test code = eGFR) 42 [facility]2016-09-01 09:58:00 Test Item Value Reference Range Interpretation Comments AGAP (test code = AGAP) 12.9 10.0-20.0 [facility]2016-09-01 09:58:00 Test Item Value Reference Range Interpretation Comments Chloride Lvl (test code = Chloride Lvl) 104 95-109 [facility]2016-09-01 09:58:00 Test Item Value Reference Range Interpretation Comments CO2 (test code = CO2) 25 24-32 [facility]2016-09-01 09:58:00 Test Item Value Reference Range Interpretation Comments Calcium Lvl (test code = Calcium Lvl) 8.5 8.5-10.5 [facility]2016-09-01 09:58:00 Test Item Value Reference Range Interpretation Comments Potassium Lvl (test code = Potassium 3.9 3.5-5.1 Lvl) [facility]2016-09-01 09:58:00 Test Item Value Reference Range Interpretation Comments Creatinine Lvl (test code = Creatinine 1.22 0.50-1.40 Lvl) [facility]2016-09-01 09:58:00 Test Item Value Reference Range Interpretation Comments Sodium Lvl (test code = Sodium Lvl) 138 135-145 [facility]2016-09-01 09:58:00 Test Item Value Reference Range Interpretation Comments BUN (test code = BUN) 24 7-22 [facility]2016-09-01 09:58:00 Test Item Value Reference Range Interpretation Comments Glucose Lvl (test code = Glucose Lvl) 92 70-99 [facility]2016-09-01 09:58:00 Test Item Value Reference Range Interpretation Comments Phosphorus (test code = Phosphorus) 3.7 2.5-4.5 [facility]2016-09-01 09:58:00 Test Item Value Reference Range Interpretation Comments Magnesium Lvl (test code = Magnesium 2.1 1.8-2.4 Lvl) [facility]2016-09-01 09:58:00 Test Item Value Reference Range Interpretation Comments eGFR (test code = eGFR) 42 [facility]2016-09-01 09:58:00 Test Item Value Reference Range Interpretation Comments AGAP (test code = AGAP) 12.9 10.0-20.0 [facility]2016-09-01 09:58:00 Test Item Value Reference Range Interpretation Comments Chloride Lvl (test code = Chloride Lvl) 104 95-109 [facility]2016-09-01 09:58:00 Test Item Value Reference Range Interpretation Comments CO2 (test code = CO2) 25 24-32 [facility]2016-09-01 09:58:00 Test Item Value Reference Range Interpretation Comments Calcium Lvl (test code = Calcium Lvl) 8.5 8.5-10.5 [facility]2016-09-01 09:58:00 Test Item Value Reference Range Interpretation Comments Potassium Lvl (test code = Potassium 3.9 3.5-5.1 Lvl) [facility]2016-09-01 09:58:00 Test Item Value Reference Range Interpretation Comments Creatinine Lvl (test code = Creatinine 1.22 0.50-1.40 Lvl) [facility]2016-09-01 09:58:00 Test Item Value Reference Range Interpretation Comments Sodium Lvl (test code = Sodium Lvl) 138 135-145 [facility] [id number] 09:58:00 Test Item Value Reference Range Interpretation Comments BUN (test code = BUN) 24 7-22 [facility] [id number] 09:58:00 Test Item Value Reference Range Interpretation Comments Glucose Lvl (test code = Glucose Lvl) 92 70-99 [facility] [id number] 14:11:00 Test Item Value Reference Range Interpretation Comments Aldosterone (test code = Aldosterone) [facility] [id number] 14:11:00 Test Item Value Reference Range Interpretation Comments Aldosterone (test code = Aldosterone) no [facility]2016-08-31 14:11:00 Test Item Value Reference Range Interpretation Comments Aldosterone (test code = Aldosterone) [facility] [id number] 14:11:00 Test Item Value Reference Range Interpretation Comments Aldosterone (test code = Aldosterone) no [facility]2016-08-31 14:11:00 Test Item Value Reference Range Interpretation Comments Aldosterone (test code = Aldosterone) no [facility]2016-08-31 14:11:00 Test Item Value Reference Range Interpretation Comments Aldosterone (test code = Aldosterone) no [facility]2016-08-31 14:11:00 Test Item Value Reference Range Interpretation Comments Aldosterone (test code = Aldosterone) no [facility]2016-08-31 14:11:00 Test Item Value Reference Range Interpretation Comments Aldosterone (test code = Aldosterone) no [facility]2016-08-31 14:11:00 Test Item Value Reference Range Interpretation Comments Aldosterone (test code = Aldosterone) no [facility]2016-08-31 14:11:00 Test Item Value Reference Range Interpretation Comments Aldosterone (test code = Aldosterone) no [facility]2016-08-31 14:11:00 Test Item Value Reference Range Interpretation Comments Aldosterone (test code = Aldosterone) no [facility]2016-08-31 14:11:00 Test Item Value Reference Range Interpretation Comments Aldosterone (test code = Aldosterone) no [facility]2016-08-31 14:11:00 Test Item Value Reference Range Interpretation Comments Aldosterone (test code = Aldosterone) no [place] [address]2016-08-31 13:47:00 Test Item Value Reference Range Interpretation Comments Cortisol (test code = Cortisol) 8.6 [place] [id number] 13:47:00 Test Item Value Reference Range Interpretation Comments Cortisol (test code = Cortisol) 8.6 [place] [id number] 13:47:00 Test Item Value Reference Range Interpretation Comments Cortisol (test code = Cortisol) 8.6 [place] [id number] 13:47:00 Test Item Value Reference Range Interpretation Comments Cortisol (test code = Cortisol) 8.6 [place] [id number] 13:47:00 Test Item Value Reference Range Interpretation Comments Cortisol (test code = Cortisol) 8.6 [place] [id number] 13:47:00 Test Item Value Reference Range Interpretation Comments Cortisol (test code = Cortisol) 8.6 [place] [id number] 13:47:00 Test Item Value Reference Range Interpretation Comments Cortisol (test code = Cortisol) 8.6 [place] [id number] 13:47:00 Test Item Value Reference Range Interpretation Comments Cortisol (test code = Cortisol) 8.6 [facility]AoqethaKWHPWBZVQAAYZ8635-87-81 13:47:00 Test Item Value Reference Range Interpretation Comments Cortisol (test code = Cortisol) 8.6 [facility]MjkxrxaCAIAYMNXBEKWJ8674-73-38 13:47:00 Test Item Value Reference Range Interpretation Comments Cortisol (test code = Cortisol) 8.6 [facility] CenterUfvbyzjEFFZUSHBUURSM5857-75-65 13:47:00 Test Item Value Reference Range Interpretation Comments Cortisol (test code = Cortisol) 8.6 [facility]PqbjetlTNVWJFLUMZKAE0049-95-84 13:47:00 Test Item Value Reference Range Interpretation Comments Cortisol (test code = Cortisol) 8.6 [facility] ArlingtonZffortfVVRAIUXRATUXC5497-84-43 13:47:00 Test Item Value Reference Range Interpretation Comments Cortisol (test code = Cortisol) 8.6 [facility] [id number] 07:59:00 Test Item Value Reference Range Interpretation Comments Phosphorus (test code = Phosphorus) 3.3 2.5-4.5 [facility] [id number] 07:59:00 Test Item Value Reference Range Interpretation Comments Magnesium Lvl (test code = Magnesium 1.8 1.8-2.4 Lvl) [facility]MzjymwsTACDWRHMJKKM8639-72-55 07:59:00 Test Item Value Reference Range Interpretation Comments AGAP (test code = AGAP) 11.2 10.0-20.0 [facility]IghremwRDYSJEGFRVNN5833-71-65 07:59:00 Test Item Value Reference Range Interpretation Comments eGFR (test code = eGFR) 49 [facility]KagkcfrIFQIKUGVUZHD5794-91-12 07:59:00 Test Item Value Reference Range Interpretation Comments Calcium Lvl (test code = Calcium Lvl) 8.4 8.5-10.5 [facility] HospitalRslqrtsBXWRSJHUKOUN2153-43-45 07:59:00 Test Item Value Reference Range Interpretation Comments Potassium Lvl (test code = Potassium 4.2 3.5-5.1 Lvl) [facility] HospitalZwvwufuRIXDSLPCUWYE0357-22-30 07:59:00 Test Item Value Reference Range Interpretation Comments Chloride Lvl (test code = Chloride Lvl) 105 95-109 [facility] HospitalSapfibsIQRWODVEEHOY6700-23-53 07:59:00 Test Item Value Reference Range Interpretation Comments CO2 (test code = CO2) 28 24-32 [facility]FpnvibdLCNAKJQFJSIR2656-50-55 07:59:00 Test Item Value Reference Range Interpretation Comments BUN (test code = BUN) 22 7-22 [facility] CenterBahaiarGIOHXXYQKIIV6674-72-43 07:59:00 Test Item Value Reference Range Interpretation Comments Glucose Lvl (test code = Glucose Lvl) 109 70-99 [facility] CenterUsjdizoOSGBPEBGLAMG9161-42-80 07:59:00 Test Item Value Reference Range Interpretation Comments Creatinine Lvl (test code = Creatinine 1.07 0.50-1.40 Lvl) [facility] CenterPgsbmleOPAZQDXYCNRY5134-89-01 07:59:00 Test Item Value Reference Range Interpretation Comments Sodium Lvl (test code = Sodium Lvl) 140 135-145 [facility] HospitalZnofakmGYYCUNIXWY7265-32-75 07:59:00 Test Item Value Reference Range Interpretation Comments WBC (test code = WBC) 7.3 3.7-10.4 [facility] HospitalJprmuamEWTASKLBFH2445-34-95 07:59:00 Test Item Value Reference Range Interpretation Comments MCH (test code = MCH) 29.6 pg 27.0-31.0 [facility] HospitalExtsyyxYALVXMKPAX0393-64-07 07:59:00 Test Item Value Reference Range Interpretation Comments MCV (test code = MCV) 88.9 80.0-98.0 [facility] HospitalYvarllmCVQVRXZEUZ4101-36-71 07:59:00 Test Item Value Reference Range Interpretation Comments Hct (test code = Hct) 36.7 36.0-48.0 [facility] HospitalInzmyclHMPLMUUTDO9620-64-63 07:59:00 Test Item Value Reference Range Interpretation Comments Hgb (test code = Hgb) 12.2 12.0-16.0 [facility] HospitalTpxhefbSPGRFRCHLH0755-12-87 07:59:00 Test Item Value Reference Range Interpretation Comments RBC (test code = RBC) 4.12 4.20-5.40 [facility] HospitalGzuemymENQZNKUDHQ3425-78-61 07:59:00 Test Item Value Reference Range Interpretation Comments MPV (test code = MPV) 7.3 7.4-10.4 [facility] HospitalYumclciBTFSWVKPLJ2888-39-54 07:59:00 Test Item Value Reference Range Interpretation Comments Platelet (test code = Platelet) 290 133-450 [facility] HospitalLyrbzkzZKHTMXPFFD3798-04-79 07:59:00 Test Item Value Reference Range Interpretation Comments RDW (test code = RDW) 13.8 11.5-14.5 [facility] HospitalPgzsvxuMKQFADYGRV2298-52-07 07:59:00 Test Item Value Reference Range Interpretation Comments MCHC (test code = MCHC) 33.3 32.0-36.0 [facility] HospitalLtznptaHBFQSLKENV9471-83-77 07:59:00 Test Item Value Reference Range Interpretation Comments Lymphocytes # (test code = Lymphocytes 1.6 1.0-5.5 #) [facility] HospitalWamajmsENDXWCGTLH1290-50-07 07:59:00 Test Item Value Reference Range Interpretation Comments Segs-Bands # (test code = Segs-Bands #) 4.8 1.5-8.1 [facility] HospitalSycehvxQWEWGJQBLL1346-42-99 07:59:00 Test Item Value Reference Range Interpretation Comments Eosinophils # (test code 0.2 See_Comment [A utomated message] The = Eosinophils #) system whic h generated this result tra nsmitted reference range : <=0.5. The reference r robbie was not used to int erpret this result as normal/abnormal . [facility] HospitalTirvkzeKLSMHWEFML3312-01-66 07:59:00 Test Item Value Reference Range Interpretation Comments Monocytes # (test code 0.7 See_Comment [Aut omated message] The = Monocytes #) system which generated this result tra nsmitted reference range : <=0.8. The reference r robbie was not used to int erpret this result as normal/abnormal . [facility] HospitalCxmrlnhBRDDHAQNKQ9200-39-86 07:59:00 Test Item Value Reference Range Interpretation Comments Basophils # (test code 0.1 See_Comment [Aut omated message] The = Basophils #) system which generated this result tra nsmitted reference range : <=0.2. The reference r robbie was not used to int erpret this result as normal/abnormal . [facility] HospitalWhwpzayFOCEWGRGPH6245-02-71 07:59:00 Test Item Value Reference Range Interpretation Comments Lymphocytes (test code = Lymphocytes) 21.7 20.0-40.0 [facility] HospitalZwwgvkvOWHCJAJHZL3445-84-67 07:59:00 Test Item Value Reference Range Interpretation Comments Segs (test code = Segs) 65.6 45.0-75.0 [facility] HospitalLnkhoxhJCMCCHDIKI5488-15-57 07:59:00 Test Item Value Reference Range Interpretation Comments Basophils (test code = 0.8 See_Comment [Aut omated message] The Basophils) system which ge nerated this result tra nsmitted reference range : <=1.0. The reference r robbie was not used to int erpret this result as normal/abnormal . [facility] HospitalDfsmydcUAEINITJSA6523-24-75 07:59:00 Test Item Value Reference Range Interpretation Comments Eosinophils (test code = 2.1 See_Comment [A utomated message] The Eosinophils) system which ge nerated this result tra nsmitted reference range : <=4.0. The reference r robbie was not used to int erpret this result as normal/abnormal . [facility] HospitalFeaageaXBXWYMNLEB1325-22-36 07:59:00 Test Item Value Reference Range Interpretation Comments Monocytes (test code = Monocytes) 9.8 2.0-12.0 [facility] [id number] 07:59:00 Test Item Value Reference Range Interpretation Comments Phosphorus (test code = Phosphorus) 3.3 2.5-4.5 [facility] OKXCX8474-24-12 07:59:00 Test Item Value Reference Range Interpretation Comments Magnesium Lvl (test code = Magnesium 1.8 1.8-2.4 Lvl) [facility] CenterCwtifotNUHWVCDPFTEK3872-12-14 07:59:00 Test Item Value Reference Range Interpretation Comments AGAP (test code = AGAP) 11.2 10.0-20.0 [facility] CenterRuahnadOFZAJBGUAKYI1932-57-65 07:59:00 Test Item Value Reference Range Interpretation Comments eGFR (test code = eGFR) 49 [facility] CenterXpekolsUIVFIUZSHTIY9448-60-94 07:59:00 Test Item Value Reference Range Interpretation Comments Calcium Lvl (test code = Calcium Lvl) 8.4 8.5-10.5 [facility] CenterNbucsiwCPSECHMRTBQN4991-38-91 07:59:00 Test Item Value Reference Range Interpretation Comments Potassium Lvl (test code = Potassium 4.2 3.5-5.1 Lvl) [facility] CenterPmpfhixMLWCIXLUQSYT3382-41-15 07:59:00 Test Item Value Reference Range Interpretation Comments Chloride Lvl (test code = Chloride Lvl) 105 95-109 [facility] CenterCecrajwFYASVWUWMABB8578-12-37 07:59:00 Test Item Value Reference Range Interpretation Comments CO2 (test code = CO2) 28 24-32 [facility] CenterZjkkfanRCRPOMETMGQV0002-20-34 07:59:00 Test Item Value Reference Range Interpretation Comments BUN (test code = BUN) 22 7-22 [facility] CenterXaclmyaDABAYJYARQFT0247-33-52 07:59:00 Test Item Value Reference Range Interpretation Comments Glucose Lvl (test code = Glucose Lvl) 109 70-99 [facility] CenterKvwnwlpHQUEHGAMGWJW6737-79-93 07:59:00 Test Item Value Reference Range Interpretation Comments Creatinine Lvl (test code = Creatinine 1.07 0.50-1.40 Lvl) [facility] CenterRfvykzaHFOOXZIVNSHR9594-67-38 07:59:00 Test Item Value Reference Range Interpretation Comments Sodium Lvl (test code = Sodium Lvl) 140 135-145 [facility] HospitalNwopgtkISMSBZTNZQ9275-14-88 07:59:00 Test Item Value Reference Range Interpretation Comments WBC (test code = WBC) 7.3 3.7-10.4 [facility] HospitalTbgpteoAXDIKYLVZN4232-16-97 07:59:00 Test Item Value Reference Range Interpretation Comments MCH (test code = MCH) 29.6 pg 27.0-31.0 [facility] HospitalKxtrqrqNKJWNRQPAF1530-90-68 07:59:00 Test Item Value Reference Range Interpretation Comments MCV (test code = MCV) 88.9 80.0-98.0 [facility] HospitalJiqmumcRCVFAEXMRK6743-13-12 07:59:00 Test Item Value Reference Range Interpretation Comments Hct (test code = Hct) 36.7 36.0-48.0 [facility] HospitalLkqpewnKOCHRVPAMG4440-76-99 07:59:00 Test Item Value Reference Range Interpretation Comments Hgb (test code = Hgb) 12.2 12.0-16.0 [facility] HospitalYukgdliWRHVQROWPP6266-81-42 07:59:00 Test Item Value Reference Range Interpretation Comments RBC (test code = RBC) 4.12 4.20-5.40 [facility] HospitalXxmgobgNNBLKCYHLN8244-76-09 07:59:00 Test Item Value Reference Range Interpretation Comments MPV (test code = MPV) 7.3 7.4-10.4 [facility] HospitalFcduklqRYELFJLAZU3943-56-00 07:59:00 Test Item Value Reference Range Interpretation Comments Platelet (test code = Platelet) 290 133-450 [facility] HospitalFpkwdvkALFMYJIVKP5675-33-11 07:59:00 Test Item Value Reference Range Interpretation Comments RDW (test code = RDW) 13.8 11.5-14.5 [facility] HospitalCxrdpinRCPBEPUVVE3871-98-80 07:59:00 Test Item Value Reference Range Interpretation Comments MCHC (test code = MCHC) 33.3 32.0-36.0 [facility] HospitalUdyqxgkFMFMSWWJTB5192-38-57 07:59:00 Test Item Value Reference Range Interpretation Comments Lymphocytes # (test code = Lymphocytes 1.6 1.0-5.5 #) [facility] HospitalQvfeosqLARVYPQAAJ1392-12-76 07:59:00 Test Item Value Reference Range Interpretation Comments Segs-Bands # (test code = Segs-Bands #) 4.8 1.5-8.1 [facility] HospitalSxvnjybBSVRJDKMFV0808-57-71 07:59:00 Test Item Value Reference Range Interpretation Comments Eosinophils # (test code 0.2 See_Comment [A utomated message] The = Eosinophils #) system whic h generated this result tra nsmitted reference range : <=0.5. The reference r robbie was not used to int erpret this result as normal/abnormal . [facility] HospitalBgtagysWMKSFZJCNX0666-50-44 07:59:00 Test Item Value Reference Range Interpretation Comments Monocytes # (test code 0.7 See_Comment [Aut omated message] The = Monocytes #) system which generated this result tra nsmitted reference range : <=0.8. The reference r robbie was not used to int erpret this result as normal/abnormal . [facility] HospitalWokoumhDATOIJPWXT6947-03-37 07:59:00 Test Item Value Reference Range Interpretation Comments Basophils # (test code 0.1 See_Comment [Aut omated message] The = Basophils #) system which generated this result tra nsmitted reference range : <=0.2. The reference r robbie was not used to int erpret this result as normal/abnormal . [facility] HospitalOfjjappERTWUDRFLO0221-77-76 07:59:00 Test Item Value Reference Range Interpretation Comments Lymphocytes (test code = Lymphocytes) 21.7 20.0-40.0 [facility] HospitalNyxkgdoQMGYRDVNZI8276-82-81 07:59:00 Test Item Value Reference Range Interpretation Comments Segs (test code = Segs) 65.6 45.0-75.0 [facility] HospitalBzycvcmOHEKSZSEGB9481-36-41 07:59:00 Test Item Value Reference Range Interpretation Comments Basophils (test code = 0.8 See_Comment [Aut omated message] The Basophils) system which ge nerated this result tra nsmitted reference range : <=1.0. The reference r robbie was not used to int erpret this result as normal/abnormal . [facility] HospitalAfhjlgbBDMPKJNOUB1317-45-93 07:59:00 Test Item Value Reference Range Interpretation Comments Eosinophils (test code = 2.1 See_Comment [A utomated message] The Eosinophils) system which ge nerated this result tra nsmitted reference range : <=4.0. The reference r robbie was not used to int erpret this result as normal/abnormal . [facility] HospitalQxmriydSOHDMDKLJO1157-32-19 07:59:00 Test Item Value Reference Range Interpretation Comments Monocytes (test code = Monocytes) 9.8 2.0-12.0 [facility] ZOMJZ4417-49-12 07:59:00 Test Item Value Reference Range Interpretation Comments Phosphorus (test code = Phosphorus) 3.3 2.5-4.5 [facility] MAERR8668-26-22 07:59:00 Test Item Value Reference Range Interpretation Comments Magnesium Lvl (test code = Magnesium 1.8 1.8-2.4 Lvl) [facility] CenterWhxokmyCKSWWYNGELOX5735-36-79 07:59:00 Test Item Value Reference Range Interpretation Comments AGAP (test code = AGAP) 11.2 10.0-20.0 [facility] CenterEqlyipxRRXKQQPNTPLI8423-58-94 07:59:00 Test Item Value Reference Range Interpretation Comments eGFR (test code = eGFR) 49 [facility] CenterCadvabjLDSLWHCRAAJA9728-06-36 07:59:00 Test Item Value Reference Range Interpretation Comments Calcium Lvl (test code = Calcium Lvl) 8.4 8.5-10.5 [facility] CenterFairwpeJZYVZJLTSCAR0313-70-02 07:59:00 Test Item Value Reference Range Interpretation Comments Potassium Lvl (test code = Potassium 4.2 3.5-5.1 Lvl) [facility] CenterXzboktmENFGADKRGFIL8445-91-23 07:59:00 Test Item Value Reference Range Interpretation Comments Chloride Lvl (test code = Chloride Lvl) 105 95-109 [facility] CenterExqmyzaFKVPJDGLNXRZ2744-15-88 07:59:00 Test Item Value Reference Range Interpretation Comments CO2 (test code = CO2) 28 24-32 [facility] CenterTislwpmOJTEDORIHTSQ0032-28-01 07:59:00 Test Item Value Reference Range Interpretation Comments BUN (test code = BUN) 22 7-22 [facility] CenterRdifdfdZHEAYCESVSZF2111-17-13 07:59:00 Test Item Value Reference Range Interpretation Comments Glucose Lvl (test code = Glucose Lvl) 109 70-99 [facility] CenterCqqaxgkQTMPGTBQVEWA6649-75-23 07:59:00 Test Item Value Reference Range Interpretation Comments Creatinine Lvl (test code = Creatinine 1.07 0.50-1.40 Lvl) [facility] CenterKyqqbmnKYXYEWQUTOXP8300-54-37 07:59:00 Test Item Value Reference Range Interpretation Comments Sodium Lvl (test code = Sodium Lvl) 140 135-145 [facility] HospitalRikyjnoFXEFANNNPI6416-80-18 07:59:00 Test Item Value Reference Range Interpretation Comments WBC (test code = WBC) 7.3 3.7-10.4 [facility] HospitalPfhckrfCQRSCACXKZ5674-22-35 07:59:00 Test Item Value Reference Range Interpretation Comments MCH (test code = MCH) 29.6 pg 27.0-31.0 [facility] HospitalPptcpctKBQDQHTCCM6339-13-49 07:59:00 Test Item Value Reference Range Interpretation Comments MCV (test code = MCV) 88.9 80.0-98.0 [facility] HospitalWfkwpchUHQFBOLCRN5104-20-71 07:59:00 Test Item Value Reference Range Interpretation Comments Hct (test code = Hct) 36.7 36.0-48.0 [facility] HospitalUpkhncjQWFXFLSSKQ6541-23-39 07:59:00 Test Item Value Reference Range Interpretation Comments Hgb (test code = Hgb) 12.2 12.0-16.0 [facility] HospitalTkcrrjxOSOBBNDGAF1596-64-59 07:59:00 Test Item Value Reference Range Interpretation Comments RBC (test code = RBC) 4.12 4.20-5.40 [facility] HospitalIupvpzjLLPAMLCTYT8882-10-39 07:59:00 Test Item Value Reference Range Interpretation Comments MPV (test code = MPV) 7.3 7.4-10.4 [facility] HospitalUsvwkujAWTZPTXFHL3203-07-98 07:59:00 Test Item Value Reference Range Interpretation Comments Platelet (test code = Platelet) 290 133-450 [place] 526596-08-31 07:59:00 Test Item Value Reference Range Interpretation Comments RDW (test code = RDW) 13.8 11.5-14.5 [facility] HospitalLbrxqpmLBHBTUFBNL5819-03-49 07:59:00 Test Item Value Reference Range Interpretation Comments MCHC (test code = MCHC) 33.3 32.0-36.0 [facility] HospitalIrqmbolEXCTYVJHFC1015-92-39 07:59:00 Test Item Value Reference Range Interpretation Comments Lymphocytes # (test code = Lymphocytes 1.6 1.0-5.5 #) [facility] HospitalUfbtdzvZBDDZPQJZO4171-60-28 07:59:00 Test Item Value Reference Range Interpretation Comments Segs-Bands # (test code = Segs-Bands #) 4.8 1.5-8.1 [facility] HospitalHyruwdgRDOISBQPDI8852-03-87 07:59:00 Test Item Value Reference Range Interpretation Comments Eosinophils # (test code 0.2 See_Comment [A utomated message] The = Eosinophils #) system whic h generated this result tra nsmitted reference range : <=0.5. The reference r robbie was not used to int erpret this result as normal/abnormal . [facility] HospitalCglpjisPZUUZKBWIF8906-31-24 07:59:00 Test Item Value Reference Range Interpretation Comments Monocytes # (test code 0.7 See_Comment [Aut omated message] The = Monocytes #) system which generated this result tra nsmitted reference range : <=0.8. The reference r robbie was not used to int erpret this result as normal/abnormal . [facility] HospitalZypxyxhFNKYFHGPNX8789-55-30 07:59:00 Test Item Value Reference Range Interpretation Comments Basophils # (test code 0.1 See_Comment [Aut omated message] The = Basophils #) system which generated this result tra nsmitted reference range : <=0.2. The reference r robbie was not used to int erpret this result as normal/abnormal . [facility] HospitalPkyitqnFOQFCDBPDU3033-17-33 07:59:00 Test Item Value Reference Range Interpretation Comments Lymphocytes (test code = Lymphocytes) 21.7 20.0-40.0 [facility] HospitalAmvhuzpQTTARTAWIW2489-90-23 07:59:00 Test Item Value Reference Range Interpretation Comments Segs (test code = Segs) 65.6 45.0-75.0 [facility] HospitalGyajbnvOBUSACLWVQ4189-81-89 07:59:00 Test Item Value Reference Range Interpretation Comments Basophils (test code = 0.8 See_Comment [Aut omated message] The Basophils) system which ge nerated this result tra nsmitted reference range : <=1.0. The reference r robbie was not used to int erpret this result as normal/abnormal . [facility] HospitalHkevnnoEANDPUQAWX5665-67-96 07:59:00 Test Item Value Reference Range Interpretation Comments Eosinophils (test code = 2.1 See_Comment [A utomated message] The Eosinophils) system which ge nerated this result tra nsmitted reference range : <=4.0. The reference r robbie was not used to int erpret this result as normal/abnormal . [facility]EwfiyunLFQWFHZYCE6639-49-96 07:59:00 Test Item Value Reference Range Interpretation Comments Monocytes (test code = Monocytes) 9.8 2.0-12.0 [facility] SUJ[facility]2516[facility]-52 07:59:00 Test Item Value Reference Range Interpretation Comments Phosphorus (test code = Phosphorus) 3.3 2.5-4.5 [facility] VCTCY5496-38-73 07:59:00 Test Item Value Reference Range Interpretation Comments Magnesium Lvl (test code = Magnesium 1.8 1.8-2.4 Lvl) [facility]EczapmsUILKBDZDRFTK8331-71-18 07:59:00 Test Item Value Reference Range Interpretation Comments AGAP (test code = AGAP) 11.2 10.0-20.0 [facility] CenterXhzmxwgXHGYTFPHMDAM1089-04-16 07:59:00 Test Item Value Reference Range Interpretation Comments eGFR (test code = eGFR) 49 [facility] CenterKusnlgtFVWAWSWCWDFL4273-02-21 07:59:00 Test Item Value Reference Range Interpretation Comments Calcium Lvl (test code = Calcium Lvl) 8.4 8.5-10.5 [facility] CenterJallmhrJNQRIFFZZQCD0932-55-95 07:59:00 Test Item Value Reference Range Interpretation Comments Potassium Lvl (test code = Potassium 4.2 3.5-5.1 Lvl) [facility] CenterMzgvibpGXXOXJBTPDZK8820-48-48 07:59:00 Test Item Value Reference Range Interpretation Comments Chloride Lvl (test code = Chloride Lvl) 105 95-109 [facility] CenterSncruggJPLGAHDZTHED8431-65-06 07:59:00 Test Item Value Reference Range Interpretation Comments CO2 (test code = CO2) 28 24-32 [facility] CenterNgjrwxvSGYDWZKPGAYA1581-00-94 07:59:00 Test Item Value Reference Range Interpretation Comments BUN (test code = BUN) 22 7-22 [facility] CenterHaztuzbAJKRAMOHMFFP0379-78-91 07:59:00 Test Item Value Reference Range Interpretation Comments Glucose Lvl (test code = Glucose Lvl) 109 70-99 [facility] CenterJhuacyaWFKPGPHHNAJA6746-88-33 07:59:00 Test Item Value Reference Range Interpretation Comments Creatinine Lvl (test code = Creatinine 1.07 0.50-1.40 Lvl) [facility] CenterYkdubpfULZIHVAUHDCK0984-11-58 07:59:00 Test Item Value Reference Range Interpretation Comments Sodium Lvl (test code = Sodium Lvl) 140 135-145 [facility]QdyspvlLYXJXPEDCU2100-19-18 07:59:00 Test Item Value Reference Range Interpretation Comments WBC (test code = WBC) 7.3 3.7-10.4 [facility] HospitalTtfhhsyVLETOLGDHS9716-78-97 07:59:00 Test Item Value Reference Range Interpretation Comments MCH (test code = MCH) 29.6 pg 27.0-31.0 [facility] HospitalPzzvrvgUZOAGECQTM2921-40-54 07:59:00 Test Item Value Reference Range Interpretation Comments MCV (test code = MCV) 88.9 80.0-98.0 [facility] HospitalJvbggllEBNKYTYKMI4522-09-67 07:59:00 Test Item Value Reference Range Interpretation Comments Hct (test code = Hct) 36.7 36.0-48.0 [facility] HospitalTbggqbeMJZNOTWEJF5760-74-58 07:59:00 Test Item Value Reference Range Interpretation Comments Hgb (test code = Hgb) 12.2 12.0-16.0 [facility] HospitalSodvtbzVBNAZBXPMZ4607-77-57 07:59:00 Test Item Value Reference Range Interpretation Comments RBC (test code = RBC) 4.12 4.20-5.40 [facility] HospitalMnvvkzhFVLHLILMIP8039-94-26 07:59:00 Test Item Value Reference Range Interpretation Comments MPV (test code = MPV) 7.3 7.4-10.4 [facility] HospitalRzmssjeIPXXAUSCTK4376-86-18 07:59:00 Test Item Value Reference Range Interpretation Comments Platelet (test code = Platelet) 290 133-450 [facility] HospitalNvymljbYAALSYPILW1839-93-14 07:59:00 Test Item Value Reference Range Interpretation Comments RDW (test code = RDW) 13.8 11.5-14.5 [facility] HospitalRxmukwyIUHQLXLMOM2404-22-40 07:59:00 Test Item Value Reference Range Interpretation Comments MCHC (test code = MCHC) 33.3 32.0-36.0 [facility] HospitalDfcngovXHBLMXOSPK1699-29-35 07:59:00 Test Item Value Reference Range Interpretation Comments Lymphocytes # (test code = Lymphocytes 1.6 1.0-5.5 #) [facility] HospitalEvpujrgAEXZDIABXM6688-92-32 07:59:00 Test Item Value Reference Range Interpretation Comments Segs-Bands # (test code = Segs-Bands #) 4.8 1.5-8.1 [facility] HospitalLoknqkoBBHPLXDBKR4757-69-11 07:59:00 Test Item Value Reference Range Interpretation Comments Eosinophils # (test code 0.2 See_Comment [A utomated message] The = Eosinophils #) system whic h generated this result tra nsmitted reference range : <=0.5. The reference r robbie was not used to int erpret this result as normal/abnormal . [facility] HospitalGflcuaiWXNXFAXUNS5411-98-68 07:59:00 Test Item Value Reference Range Interpretation Comments Monocytes # (test code 0.7 See_Comment [Aut omated message] The = Monocytes #) system which generated this result tra nsmitted reference range : <=0.8. The reference r robbie was not used to int erpret this result as normal/abnormal . [facility] HospitalDuvmbcjAIEUDILJPJ6436-37-22 07:59:00 Test Item Value Reference Range Interpretation Comments Basophils # (test code 0.1 See_Comment [Aut omated message] The = Basophils #) system which generated this result tra nsmitted reference range : <=0.2. The reference r robbie was not used to int erpret this result as normal/abnormal . [facility] HospitalUacnfsqNXDHUNXSWM6354-98-34 07:59:00 Test Item Value Reference Range Interpretation Comments Lymphocytes (test code = Lymphocytes) 21.7 20.0-40.0 [facility] HospitalSiununyKGYTBQMRUP7668-67-22 07:59:00 Test Item Value Reference Range Interpretation Comments Segs (test code = Segs) 65.6 45.0-75.0 [facility] HospitalEzzvprwOGAXUAQNGP5519-75-56 07:59:00 Test Item Value Reference Range Interpretation Comments Basophils (test code = 0.8 See_Comment [Aut omated message] The Basophils) system which ge nerated this result tra nsmitted reference range : <=1.0. The reference r robbie was not used to int erpret this result as normal/abnormal . [facility] HospitalApsdbzaONZFSFIFWC4920-47-28 07:59:00 Test Item Value Reference Range Interpretation Comments Eosinophils (test code = 2.1 See_Comment [A utomated message] The Eosinophils) system which ge nerated this result tra nsmitted reference range : <=4.0. The reference r robbie was not used to int erpret this result as normal/abnormal . [facility] HospitalIlfhbbgWVPYFICVSQ1035-75-64 07:59:00 Test Item Value Reference Range Interpretation Comments Monocytes (test code = Monocytes) 9.8 2.0-12.0 [facility] AQMDQ6898-42-70 07:59:00 Test Item Value Reference Range Interpretation Comments Phosphorus (test code = Phosphorus) 3.3 2.5-4.5 [facility] GGMGJ4189-40-31 07:59:00 Test Item Value Reference Range Interpretation Comments Magnesium Lvl (test code = Magnesium 1.8 1.8-2.4 Lvl) [facility] CenterUvncrxgAVWDWDAWIQWS9130-76-67 07:59:00 Test Item Value Reference Range Interpretation Comments AGAP (test code = AGAP) 11.2 10.0-20.0 [facility] CenterAgcoxxcFTOSFZFSIHYT3567-47-25 07:59:00 Test Item Value Reference Range Interpretation Comments eGFR (test code = eGFR) 49 [facility] CenterCvzqynnWWBXWTGSMYVL4822-29-03 07:59:00 Test Item Value Reference Range Interpretation Comments Calcium Lvl (test code = Calcium Lvl) 8.4 8.5-10.5 [facility] CenterYkubfmlCIIXQPCIMNTT7189-84-56 07:59:00 Test Item Value Reference Range Interpretation Comments Potassium Lvl (test code = Potassium 4.2 3.5-5.1 Lvl) [facility] CenterEprtgkzNGDXPCFAMRGG8329-88-87 07:59:00 Test Item Value Reference Range Interpretation Comments Chloride Lvl (test code = Chloride Lvl) 105 95-109 [facility] CenterXxlomieRBPLBGIZFUIA8871-62-54 07:59:00 Test Item Value Reference Range Interpretation Comments CO2 (test code = CO2) 28 24-32 [facility] CenterMhaqvmvMYCFRKWZZATY5271-09-21 07:59:00 Test Item Value Reference Range Interpretation Comments BUN (test code = BUN) 22 7-22 [facility] CenterXgafqkzFYJYPNPZHPGD8863-74-41 07:59:00 Test Item Value Reference Range Interpretation Comments Glucose Lvl (test code = Glucose Lvl) 109 70-99 [facility] CenterQcnncarGUMFJXELROSF5794-39-94 07:59:00 Test Item Value Reference Range Interpretation Comments Creatinine Lvl (test code = Creatinine 1.07 0.50-1.40 Lvl) [facility] CenterXypixicQCQQRGTHIBLP8741-09-11 07:59:00 Test Item Value Reference Range Interpretation Comments Sodium Lvl (test code = Sodium Lvl) 140 135-145 [facility] HospitalSkpbjhhHDIRKSPCSH2599-26-38 07:59:00 Test Item Value Reference Range Interpretation Comments WBC (test code = WBC) 7.3 3.7-10.4 [facility] HospitalDthayhwEVPNERMXXY6989-74-66 07:59:00 Test Item Value Reference Range Interpretation Comments MCH (test code = MCH) 29.6 pg 27.0-31.0 [facility] HospitalQgtrdonWHFNQSAQVW7379-94-89 07:59:00 Test Item Value Reference Range Interpretation Comments MCV (test code = MCV) 88.9 80.0-98.0 [facility] HospitalVyhpelrBVFYRBZJZX9560-74-82 07:59:00 Test Item Value Reference Range Interpretation Comments Hct (test code = Hct) 36.7 36.0-48.0 [facility] HospitalYowqgifIUOSLYSDVL8069-27-50 07:59:00 Test Item Value Reference Range Interpretation Comments Hgb (test code = Hgb) 12.2 12.0-16.0 [facility] HospitalAwyzvrpXJXKHTXATZ3461-27-42 07:59:00 Test Item Value Reference Range Interpretation Comments RBC (test code = RBC) 4.12 4.20-5.40 [facility] HospitalMrhivbvESHREGJBTL5480-23-51 07:59:00 Test Item Value Reference Range Interpretation Comments MPV (test code = MPV) 7.3 7.4-10.4 [facility] HospitalVntrjqzJPLZPMYSCJ9195-41-57 07:59:00 Test Item Value Reference Range Interpretation Comments Platelet (test code = Platelet) 290 133-450 [facility] HospitalBwtjefjTDZXKPCSHO7912-25-45 07:59:00 Test Item Value Reference Range Interpretation Comments RDW (test code = RDW) 13.8 11.5-14.5 [facility] HospitalZqqdixyQLEFIQJXVP6657-59-74 07:59:00 Test Item Value Reference Range Interpretation Comments MCHC (test code = MCHC) 33.3 32.0-36.0 [facility] HospitalPfdribnRFSWSCXJIY5510-00-76 07:59:00 Test Item Value Reference Range Interpretation Comments Lymphocytes # (test code = Lymphocytes 1.6 1.0-5.5 #) [facility] HospitalCuapbgyHRMMEIVDJS3533-07-30 07:59:00 Test Item Value Reference Range Interpretation Comments Segs-Bands # (test code = Segs-Bands #) 4.8 1.5-8.1 [facility] HospitalOwnzaopBSCNYHPJYU3342-48-25 07:59:00 Test Item Value Reference Range Interpretation Comments Eosinophils # (test code 0.2 See_Comment [A utomated message] The = Eosinophils #) system whic h generated this result tra nsmitted reference range : <=0.5. The reference r robbie was not used to int erpret this result as normal/abnormal . [facility] HospitalTxnhzaeLEQMTDBPWE3890-63-77 07:59:00 Test Item Value Reference Range Interpretation Comments Monocytes # (test code 0.7 See_Comment [Aut omated message] The = Monocytes #) system which generated this result tra nsmitted reference range : <=0.8. The reference r robbie was not used to int erpret this result as normal/abnormal . [facility] HospitalCangefvDODPBKUTFJ2861-79-53 07:59:00 Test Item Value Reference Range Interpretation Comments Basophils # (test code 0.1 See_Comment [Aut omated message] The = Basophils #) system which generated this result tra nsmitted reference range : <=0.2. The reference r robbie was not used to int erpret this result as normal/abnormal . [facility] HospitalEjldadeXYSAARFSVO4279-05-43 07:59:00 Test Item Value Reference Range Interpretation Comments Lymphocytes (test code = Lymphocytes) 21.7 20.0-40.0 [facility] HospitalQnsagawXXWZJSXEUT0578-69-18 07:59:00 Test Item Value Reference Range Interpretation Comments Segs (test code = Segs) 65.6 45.0-75.0 [facility] HospitalVxyeiqsEDUPVSNYVT7464-50-43 07:59:00 Test Item Value Reference Range Interpretation Comments Basophils (test code = 0.8 See_Comment [Aut omated message] The Basophils) system which ge nerated this result tra nsmitted reference range : <=1.0. The reference r robbie was not used to int erpret this result as normal/abnormal . [facility] HospitalSlaohgkLPFTNRIGKW7876-10-68 07:59:00 Test Item Value Reference Range Interpretation Comments Eosinophils (test code = 2.1 See_Comment [A utomated message] The Eosinophils) system which ge nerated this result tra nsmitted reference range : <=4.0. The reference r robbie was not used to int erpret this result as normal/abnormal . [facility] HospitalDwkvnkyTGYXZQONGX5163-12-84 07:59:00 Test Item Value Reference Range Interpretation Comments Monocytes (test code = Monocytes) 9.8 2.0-12.0 [facility] QIWYA3884-13-27 07:59:00 Test Item Value Reference Range Interpretation Comments Phosphorus (test code = Phosphorus) 3.3 2.5-4.5 [facility] ArlingtonK[facility] GDROX4095-92-96 07:59:00 Test Item Value Reference Range Interpretation Comments Magnesium Lvl (test code = Magnesium 1.8 1.8-2.4 Lvl) [facility] CenterLyhvwsyPOLULPYWWYFP1121-56-71 07:59:00 Test Item Value Reference Range Interpretation Comments AGAP (test code = AGAP) 11.2 10.0-20.0 [facility] CenterOrpkvvmZTTNVHORKEJB9553-09-38 07:59:00 Test Item Value Reference Range Interpretation Comments eGFR (test code = eGFR) 49 [facility] CenterDuwanadIINXGZXLKJHH3677-11-60 07:59:00 Test Item Value Reference Range Interpretation Comments Calcium Lvl (test code = Calcium Lvl) 8.4 8.5-10.5 [facility] CenterNqcfrvlLQVKHVHAGKOL3281-67-62 07:59:00 Test Item Value Reference Range Interpretation Comments Potassium Lvl (test code = Potassium 4.2 3.5-5.1 Lvl) [facility] CenterIisonbkFHFPSRDUEIZE8854-81-43 07:59:00 Test Item Value Reference Range Interpretation Comments Chloride Lvl (test code = Chloride Lvl) 105 95-109 [facility] CenterZudgyayLDQQLSFXNYBV5534-13-02 07:59:00 Test Item Value Reference Range Interpretation Comments CO2 (test code = CO2) 28 24-32 [facility] CenterQzicfgzAPCYWCFUOITU6458-13-44 07:59:00 Test Item Value Reference Range Interpretation Comments BUN (test code = BUN) 22 7-22 [facility] CenterWajtvjxNQBDDQRIQNYW5454-08-99 07:59:00 Test Item Value Reference Range Interpretation Comments Glucose Lvl (test code = Glucose Lvl) 109 70-99 [facility] CenterLelmuprCSNKUOTIASZR2302-24-14 07:59:00 Test Item Value Reference Range Interpretation Comments Creatinine Lvl (test code = Creatinine 1.07 0.50-1.40 Lvl) [facility] CenterQoxafldSSPKSNHKERXK6173-82-84 07:59:00 Test Item Value Reference Range Interpretation Comments Sodium Lvl (test code = Sodium Lvl) 140 135-145 [facility] HospitalDpjhyinCIQSBUWXOG0517-75-40 07:59:00 Test Item Value Reference Range Interpretation Comments WBC (test code = WBC) 7.3 3.7-10.4 [facility] HospitalIznepxmZDDUOYVGPW2861-42-27 07:59:00 Test Item Value Reference Range Interpretation Comments MCH (test code = MCH) 29.6 pg 27.0-31.0 [facility] HospitalUqhvhdvMLSUCWUFWK6859-58-57 07:59:00 Test Item Value Reference Range Interpretation Comments MCV (test code = MCV) 88.9 80.0-98.0 [facility] HospitalRzqtahyTVCORLJPVF6402-66-63 07:59:00 Test Item Value Reference Range Interpretation Comments Hct (test code = Hct) 36.7 36.0-48.0 [facility] HospitalVbrkkvcGIDKSPJSKT9161-11-56 07:59:00 Test Item Value Reference Range Interpretation Comments Hgb (test code = Hgb) 12.2 12.0-16.0 [facility] HospitalKwdafphGJZYFQCBQC1240-23-54 07:59:00 Test Item Value Reference Range Interpretation Comments RBC (test code = RBC) 4.12 4.20-5.40 [facility] HospitalWzlofwqJFAAKUCRTG0983-71-71 07:59:00 Test Item Value Reference Range Interpretation Comments MPV (test code = MPV) 7.3 7.4-10.4 [facility] HospitalTbprkfgVHFOXNVKCQ6727-33-77 07:59:00 Test Item Value Reference Range Interpretation Comments Platelet (test code = Platelet) 290 133-450 [facility] HospitalXjmrigjTPWQMGBSKN4805-17-56 07:59:00 Test Item Value Reference Range Interpretation Comments RDW (test code = RDW) 13.8 11.5-14.5 [facility] HospitalZzyxnehFSGVZTGJIP8882-47-59 07:59:00 Test Item Value Reference Range Interpretation Comments MCHC (test code = MCHC) 33.3 32.0-36.0 [facility] HospitalWiazywaWFHQYZZARX3527-46-92 07:59:00 Test Item Value Reference Range Interpretation Comments Lymphocytes # (test code = Lymphocytes 1.6 1.0-5.5 #) [facility] HospitalFojbggeRGCVLDMBCG0434-00-48 07:59:00 Test Item Value Reference Range Interpretation Comments Segs-Bands # (test code = Segs-Bands #) 4.8 1.5-8.1 [facility] HospitalRgjayjtZOVPRUWANS7493-13-31 07:59:00 Test Item Value Reference Range Interpretation Comments Eosinophils # (test code 0.2 See_Comment [A utomated message] The = Eosinophils #) system whic h generated this result tra nsmitted reference range : <=0.5. The reference r robbie was not used to int erpret this result as normal/abnormal . [facility] HospitalOqfsrbvGIEQFRYIOV4880-75-75 07:59:00 Test Item Value Reference Range Interpretation Comments Monocytes # (test code 0.7 See_Comment [Aut omated message] The = Monocytes #) system which generated this result tra nsmitted reference range : <=0.8. The reference r robbie was not used to int erpret this result as normal/abnormal . [facility] HospitalYnxfvndYEIAWPPNYJ8715-95-85 07:59:00 Test Item Value Reference Range Interpretation Comments Basophils # (test code 0.1 See_Comment [Aut omated message] The = Basophils #) system which generated this result tra nsmitted reference range : <=0.2. The reference r robbie was not used to int erpret this result as normal/abnormal . [facility] HospitalAgnbhudVBXQQFKQVK9169-24-81 07:59:00 Test Item Value Reference Range Interpretation Comments Lymphocytes (test code = Lymphocytes) 21.7 20.0-40.0 [facility] HospitalOnjxbzxLJMMPKBGWP2884-66-37 07:59:00 Test Item Value Reference Range Interpretation Comments Segs (test code = Segs) 65.6 45.0-75.0 [facility] HospitalLhqfutwEOILXMQIWN3795-60-97 07:59:00 Test Item Value Reference Range Interpretation Comments Basophils (test code = 0.8 See_Comment [Aut omated message] The Basophils) system which ge nerated this result tra nsmitted reference range : <=1.0. The reference r robbie was not used to int erpret this result as normal/abnormal . [facility] HospitalXilphimZBGQHDUNSS4749-40-77 07:59:00 Test Item Value Reference Range Interpretation Comments Eosinophils (test code = 2.1 See_Comment [A utomated message] The Eosinophils) system which ge nerated this result tra nsmitted reference range : <=4.0. The reference r robbie was not used to int erpret this result as normal/abnormal . [facility] HospitalRqztytpVFRSBKULTY5299-10-18 07:59:00 Test Item Value Reference Range Interpretation Comments Monocytes (test code = Monocytes) 9.8 2.0-12.0 [facility]CHEM GWLBG4619-90-00 07:59:00 Test Item Value Reference Range Interpretation Comments Phosphorus (test code = Phosphorus) 3.3 2.5-4.5 [facility] ArlingtonCHEM BBCDF7649-48-35 07:59:00 Test Item Value Reference Range Interpretation Comments Magnesium Lvl (test code = Magnesium 1.8 1.8-2.4 Lvl) [facility]EjjnhesLFFDFNOIUNPS7854-48-54 07:59:00 Test Item Value Reference Range Interpretation Comments AGAP (test code = AGAP) 11.2 10.0-20.0 [facility] CenterPldqjbcAXHGKBTYYHHF2373-93-36 07:59:00 Test Item Value Reference Range Interpretation Comments eGFR (test code = eGFR) 49 [facility] CenterEtknujeGXMUVUUFUUNU0138-89-63 07:59:00 Test Item Value Reference Range Interpretation Comments Calcium Lvl (test code = Calcium Lvl) 8.4 8.5-10.5 [facility] CenterLjzdrsoMTIKVBGLEUSY3628-47-20 07:59:00 Test Item Value Reference Range Interpretation Comments Potassium Lvl (test code = Potassium 4.2 3.5-5.1 Lvl) [facility] CenterTbxbszlNKHZZCLMXWBM1368-03-66 07:59:00 Test Item Value Reference Range Interpretation Comments Chloride Lvl (test code = Chloride Lvl) 105 95-109 [facility] CenterYjeagidJNOLBFBXLBBE0437-30-28 07:59:00 Test Item Value Reference Range Interpretation Comments CO2 (test code = CO2) 28 24-32 [facility] CenterGseeykfKCSTSEBHASBY7811-40-44 07:59:00 Test Item Value Reference Range Interpretation Comments BUN (test code = BUN) 22 7-22 [facility] CenterCfilwytCKCSFOUMHGHQ7899-00-68 07:59:00 Test Item Value Reference Range Interpretation Comments Glucose Lvl (test code = Glucose Lvl) 109 70-99 [facility] CenterGpeehvyRIRNXNJGTQKJ1765-11-33 07:59:00 Test Item Value Reference Range Interpretation Comments Creatinine Lvl (test code = Creatinine 1.07 0.50-1.40 Lvl) [facility] CenterUofkiiuBPDWOEULSCGC8583-05-97 07:59:00 Test Item Value Reference Range Interpretation Comments Sodium Lvl (test code = Sodium Lvl) 140 135-145 [facility] HospitalYipdiweKOSLQEZUMG2358-19-29 07:59:00 Test Item Value Reference Range Interpretation Comments WBC (test code = WBC) 7.3 3.7-10.4 [facility] HospitalGfygmwrXAWWMOKLLR6759-07-64 07:59:00 Test Item Value Reference Range Interpretation Comments MCH (test code = MCH) 29.6 pg 27.0-31.0 [facility] HospitalVmhqiepWJDXUKZIRI6584-89-79 07:59:00 Test Item Value Reference Range Interpretation Comments MCV (test code = MCV) 88.9 80.0-98.0 [facility] HospitalRlzvlxcLVRLQPHGMM7731-78-85 07:59:00 Test Item Value Reference Range Interpretation Comments Hct (test code = Hct) 36.7 36.0-48.0 [facility] HospitalCrwhqlcEAORXRBCFH8829-67-47 07:59:00 Test Item Value Reference Range Interpretation Comments Hgb (test code = Hgb) 12.2 12.0-16.0 [facility] HospitalJidawinZHRDFPUKYR9853-68-73 07:59:00 Test Item Value Reference Range Interpretation Comments RBC (test code = RBC) 4.12 4.20-5.40 [facility] HospitalIvgkvobNQPNKLVSND9717-17-03 07:59:00 Test Item Value Reference Range Interpretation Comments MPV (test code = MPV) 7.3 7.4-10.4 [facility] HospitalKglmtmuCHNIOLOMBL5234-36-94 07:59:00 Test Item Value Reference Range Interpretation Comments Platelet (test code = Platelet) 290 133-450 [facility] HospitalGlikaavFGDXXHQXNZ4261-76-70 07:59:00 Test Item Value Reference Range Interpretation Comments RDW (test code = RDW) 13.8 11.5-14.5 [facility] HospitalAcmcyygUMNVRNPJOG8362-87-06 07:59:00 Test Item Value Reference Range Interpretation Comments MCHC (test code = MCHC) 33.3 32.0-36.0 [facility] HospitalTpxmzcsVHNGUDSNEU9948-11-89 07:59:00 Test Item Value Reference Range Interpretation Comments Lymphocytes # (test code = Lymphocytes 1.6 1.0-5.5 #) [facility] HospitalVqqmwqtATKTQLZDNE5823-83-30 07:59:00 Test Item Value Reference Range Interpretation Comments Segs-Bands # (test code = Segs-Bands #) 4.8 1.5-8.1 [facility] HospitalYwmfbzyVPMERJGHOF7252-98-52 07:59:00 Test Item Value Reference Range Interpretation Comments Eosinophils # (test code 0.2 See_Comment [A utomated message] The = Eosinophils #) system whic h generated this result tra nsmitted reference range : <=0.5. The reference r robbie was not used to int erpret this result as normal/abnormal . [facility] HospitalGjftrssQYEXQQEKWL8853-70-00 07:59:00 Test Item Value Reference Range Interpretation Comments Monocytes # (test code 0.7 See_Comment [Aut omated message] The = Monocytes #) system which generated this result tra nsmitted reference range : <=0.8. The reference r robbie was not used to int erpret this result as normal/abnormal . [facility]CtjogsfAEXCFEONRN0216-81-75 07:59:00 Test Item Value Reference Range Interpretation Comments Basophils # (test code 0.1 See_Comment [Aut omated message] The = Basophils #) system which generated this result tra nsmitted reference range : <=0.2. The reference r robbie was not used to int erpret this result as normal/abnormal . [facility] HospitalJqjawplNHWOIBZEPA3651-21-26 07:59:00 Test Item Value Reference Range Interpretation Comments Lymphocytes (test code = Lymphocytes) 21.7 20.0-40.0 [facility] HospitalTnfpiowZXVVPVUPFO4738-32-09 07:59:00 Test Item Value Reference Range Interpretation Comments Segs (test code = Segs) 65.6 45.0-75.0 [facility] HospitalVoivakhWUEHEOIAJO7580-30-05 07:59:00 Test Item Value Reference Range Interpretation Comments Basophils (test code = 0.8 See_Comment [Aut omated message] The Basophils) system which ge nerated this result tra nsmitted reference range : <=1.0. The reference r robbie was not used to int erpret this result as normal/abnormal . [facility] HospitalSjiqbriMVBDDNFXNK9734-45-85 07:59:00 Test Item Value Reference Range Interpretation Comments Eosinophils (test code = 2.1 See_Comment [A utomated message] The Eosinophils) system which ge nerated this result tra nsmitted reference range : <=4.0. The reference r robbie was not used to int erpret this result as normal/abnormal . [facility] HospitalQdmhldgMACQZGXVSQ1108-57-83 07:59:00 Test Item Value Reference Range Interpretation Comments Monocytes (test code = Monocytes) 9.8 2.0-12.0 [facility] [id number] 07:59:00 Test Item Value Reference Range Interpretation Comments Phosphorus (test code = Phosphorus) 3.3 2.5-4.5 [facility] UVCXU8712-37-50 07:59:00 Test Item Value Reference Range Interpretation Comments Magnesium Lvl (test code = Magnesium 1.8 1.8-2.4 Lvl) [facility]XlfqxilHNKYQRCLPJTH4433-47-16 07:59:00 Test Item Value Reference Range Interpretation Comments AGAP (test code = AGAP) 11.2 10.0-20.0 [facility] CenterLvrmxoyPHBDGKDXXAVN5460-94-78 07:59:00 Test Item Value Reference Range Interpretation Comments eGFR (test code = eGFR) 49 [facility] CenterPimicebEXDHANBHHBDQ0748-44-70 07:59:00 Test Item Value Reference Range Interpretation Comments Calcium Lvl (test code = Calcium Lvl) 8.4 8.5-10.5 [facility] CenterCzwbnomWIUKEIOVMTUK5178-67-97 07:59:00 Test Item Value Reference Range Interpretation Comments Potassium Lvl (test code = Potassium 4.2 3.5-5.1 Lvl) [facility] CenterEilzgejQBFSOVFXMILY7849-40-14 07:59:00 Test Item Value Reference Range Interpretation Comments Chloride Lvl (test code = Chloride Lvl) 105 95-109 [facility] CenterDrkuktvSJPMLAVXOCVE0069-00-51 07:59:00 Test Item Value Reference Range Interpretation Comments CO2 (test code = CO2) 28 24-32 [facility] CenterXmovpqoIDYSRLJFJTXI9472-28-31 07:59:00 Test Item Value Reference Range Interpretation Comments BUN (test code = BUN) 22 7-22 [facility] CenterIyvteloDQAVORUORPTT2515-69-54 07:59:00 Test Item Value Reference Range Interpretation Comments Glucose Lvl (test code = Glucose Lvl) 109 70-99 [facility] CenterXogsazcZZFNQNLBXJSZ9577-99-44 07:59:00 Test Item Value Reference Range Interpretation Comments Creatinine Lvl (test code = Creatinine 1.07 0.50-1.40 Lvl) [facility] CenterXexadrgOYDNIUYJKEPW2888-41-34 07:59:00 Test Item Value Reference Range Interpretation Comments Sodium Lvl (test code = Sodium Lvl) 140 135-145 [facility] HospitalHdsyrmrJWHBGCJZCY6302-53-31 07:59:00 Test Item Value Reference Range Interpretation Comments WBC (test code = WBC) 7.3 3.7-10.4 [facility] HospitalUrazjfcNCVKFLEPHW1227-41-97 07:59:00 Test Item Value Reference Range Interpretation Comments MCH (test code = MCH) 29.6 pg 27.0-31.0 [facility] HospitalEekrwzxRCJTVPEPLX5426-57-98 07:59:00 Test Item Value Reference Range Interpretation Comments MCV (test code = MCV) 88.9 80.0-98.0 [facility] HospitalEqnyzocLWKJYVAPLA8525-02-82 07:59:00 Test Item Value Reference Range Interpretation Comments Hct (test code = Hct) 36.7 36.0-48.0 [facility] HospitalJgaqscuDLFYLOONQO7019-28-61 07:59:00 Test Item Value Reference Range Interpretation Comments Hgb (test code = Hgb) 12.2 12.0-16.0 [facility] HospitalDsyifskOPECNHKAXJ3332-84-58 07:59:00 Test Item Value Reference Range Interpretation Comments RBC (test code = RBC) 4.12 4.20-5.40 [facility] HospitalItsjzyqQTBEUCBIRO4486-91-25 07:59:00 Test Item Value Reference Range Interpretation Comments MPV (test code = MPV) 7.3 7.4-10.4 [facility] HospitalZbihaidYMVCMDJLQA2216-98-91 07:59:00 Test Item Value Reference Range Interpretation Comments Platelet (test code = Platelet) 290 133-450 [facility] HospitalQvexhiwBDVDIMIZZB7782-19-18 07:59:00 Test Item Value Reference Range Interpretation Comments RDW (test code = RDW) 13.8 11.5-14.5 [facility] HospitalIaefzcgWPDQBFHALF1542-35-86 07:59:00 Test Item Value Reference Range Interpretation Comments MCHC (test code = MCHC) 33.3 32.0-36.0 [facility] HospitalSxxxswaFXEUNLWJJK5422-72-84 07:59:00 Test Item Value Reference Range Interpretation Comments Lymphocytes # (test code = Lymphocytes 1.6 1.0-5.5 #) [facility] HospitalEbloygdTSYDSCXSRE8352-70-07 07:59:00 Test Item Value Reference Range Interpretation Comments Segs-Bands # (test code = Segs-Bands #) 4.8 1.5-8.1 [facility] HospitalEtjqqfbNBFSLRDTSG3511-39-12 07:59:00 Test Item Value Reference Range Interpretation Comments Eosinophils # (test code 0.2 See_Comment [A utomated message] The = Eosinophils #) system whic h generated this result tra nsmitted reference range : <=0.5. The reference r robbie was not used to int erpret this result as normal/abnormal . [facility] HospitalEsmtopeKFKLKLCLRW0693-08-37 07:59:00 Test Item Value Reference Range Interpretation Comments Monocytes # (test code 0.7 See_Comment [Aut omated message] The = Monocytes #) system which generated this result tra nsmitted reference range : <=0.8. The reference r robbie was not used to int erpret this result as normal/abnormal . [facility] HospitalUylcodbDOZNQBIRMQ9232-39-65 07:59:00 Test Item Value Reference Range Interpretation Comments Basophils # (test code 0.1 See_Comment [Aut omated message] The = Basophils #) system which generated this result tra nsmitted reference range : <=0.2. The reference r robbie was not used to int erpret this result as normal/abnormal . [facility] HospitalGyeizfySSOYDQHWGY6191-55-55 07:59:00 Test Item Value Reference Range Interpretation Comments Lymphocytes (test code = Lymphocytes) 21.7 20.0-40.0 [facility] HospitalSpxwmsrGVXCSHGINJ9962-38-86 07:59:00 Test Item Value Reference Range Interpretation Comments Segs (test code = Segs) 65.6 45.0-75.0 [facility] HospitalBsxjawnEBZKZJVNJH9496-35-52 07:59:00 Test Item Value Reference Range Interpretation Comments Basophils (test code = 0.8 See_Comment [Aut omated message] The Basophils) system which ge nerated this result tra nsmitted reference range : <=1.0. The reference r robbie was not used to int erpret this result as normal/abnormal . [facility] HospitalDxtamcyIMPHZMAEBD7503-57-42 07:59:00 Test Item Value Reference Range Interpretation Comments Eosinophils (test code = 2.1 See_Comment [A utomated message] The Eosinophils) system which ge nerated this result tra nsmitted reference range : <=4.0. The reference r robbie was not used to int erpret this result as normal/abnormal . [facility] HospitalNmslhfoERHNJNDTBW0089-31-77 07:59:00 Test Item Value Reference Range Interpretation Comments Monocytes (test code = Monocytes) 9.8 2.0-12.0 [facility] XZYNZ0653-50-84 07:59:00 Test Item Value Reference Range Interpretation Comments Phosphorus (test code = Phosphorus) 3.3 2.5-4.5 [facility] QASKR3461-95-94 07:59:00 Test Item Value Reference Range Interpretation Comments Magnesium Lvl (test code = Magnesium 1.8 1.8-2.4 Lvl) [facility] CenterGbixpndMPYLCZHBONPR0754-19-07 07:59:00 Test Item Value Reference Range Interpretation Comments AGAP (test code = AGAP) 11.2 10.0-20.0 [facility] CenterIelmbmpKEFTIDMDHMFP5007-47-98 07:59:00 Test Item Value Reference Range Interpretation Comments eGFR (test code = eGFR) 49 [facility] CenterDvumsznISYKMRZOQPOQ1450-65-20 07:59:00 Test Item Value Reference Range Interpretation Comments Calcium Lvl (test code = Calcium Lvl) 8.4 8.5-10.5 [facility] CenterIcdzcoxCHJHRTJWIHRT5876-99-81 07:59:00 Test Item Value Reference Range Interpretation Comments Potassium Lvl (test code = Potassium 4.2 3.5-5.1 Lvl) [facility] CenterFbrbdqkVOARCIOKXBHF3815-13-00 07:59:00 Test Item Value Reference Range Interpretation Comments Chloride Lvl (test code = Chloride Lvl) 105 95-109 [facility] CenterZyrtfomEJOCMIVYINWP2270-30-88 07:59:00 Test Item Value Reference Range Interpretation Comments CO2 (test code = CO2) 28 24-32 [facility] CenterPmvxxncHMBAPSUMWPKZ1105-14-05 07:59:00 Test Item Value Reference Range Interpretation Comments BUN (test code = BUN) 22 7-22 [facility] CenterGgmcdphISDTUKKWKTDS2837-06-31 07:59:00 Test Item Value Reference Range Interpretation Comments Glucose Lvl (test code = Glucose Lvl) 109 70-99 [facility] CenterIfdmrmtNWGNHPOTRZFN7223-65-03 07:59:00 Test Item Value Reference Range Interpretation Comments Creatinine Lvl (test code = Creatinine 1.07 0.50-1.40 Lvl) [facility] CenterRinpkvwGIYWNFHLDPRZ2235-49-78 07:59:00 Test Item Value Reference Range Interpretation Comments Sodium Lvl (test code = Sodium Lvl) 140 135-145 [facility] HospitalDhcjyxkVVOUVHFXQO3497-52-16 07:59:00 Test Item Value Reference Range Interpretation Comments WBC (test code = WBC) 7.3 3.7-10.4 [facility] HospitalAeqoqsnWZXZLHHOLN5668-29-55 07:59:00 Test Item Value Reference Range Interpretation Comments MCH (test code = MCH) 29.6 pg 27.0-31.0 [facility] HospitalOrnhjptWXBTPSDRXA9717-23-15 07:59:00 Test Item Value Reference Range Interpretation Comments MCV (test code = MCV) 88.9 80.0-98.0 [facility] HospitalVhogjxcXKEHTAHFOH1903-54-61 07:59:00 Test Item Value Reference Range Interpretation Comments Hct (test code = Hct) 36.7 36.0-48.0 [facility] HospitalHcqihxjBYAEUBEJZO7978-23-25 07:59:00 Test Item Value Reference Range Interpretation Comments Hgb (test code = Hgb) 12.2 12.0-16.0 [facility] HospitalGjudiwvAZSMLEIMMR0704-14-25 07:59:00 Test Item Value Reference Range Interpretation Comments RBC (test code = RBC) 4.12 4.20-5.40 [facility] HospitalPtgceclHTEHIIVOAB9491-87-19 07:59:00 Test Item Value Reference Range Interpretation Comments MPV (test code = MPV) 7.3 7.4-10.4 [facility] HospitalOmnlmifYSVYKUPHYA2791-83-92 07:59:00 Test Item Value Reference Range Interpretation Comments Platelet (test code = Platelet) 290 133-450 [facility] HospitalYghbgrlFJZQZWXJMH2032-25-39 07:59:00 Test Item Value Reference Range Interpretation Comments RDW (test code = RDW) 13.8 11.5-14.5 [facility] HospitalIpfpyikWKDVMHEKIC3211-53-87 07:59:00 Test Item Value Reference Range Interpretation Comments MCHC (test code = MCHC) 33.3 32.0-36.0 [facility] HospitalBjogjjjREGUWMVURI1050-88-48 07:59:00 Test Item Value Reference Range Interpretation Comments Lymphocytes # (test code = Lymphocytes 1.6 1.0-5.5 #) [facility] HospitalPmfkpukFQKZBNCBKZ1015-56-26 07:59:00 Test Item Value Reference Range Interpretation Comments Segs-Bands # (test code = Segs-Bands #) 4.8 1.5-8.1 [facility] HospitalVlgchysIDXKSXAWDO7543-49-39 07:59:00 Test Item Value Reference Range Interpretation Comments Eosinophils # (test code 0.2 See_Comment [A utomated message] The = Eosinophils #) system whic h generated this result tra nsmitted reference range : <=0.5. The reference r robbie was not used to int erpret this result as normal/abnormal . [facility] HospitalAnjljveCJDOKIROMF7037-08-46 07:59:00 Test Item Value Reference Range Interpretation Comments Monocytes # (test code 0.7 See_Comment [Aut omated message] The = Monocytes #) system which generated this result tra nsmitted reference range : <=0.8. The reference r robbie was not used to int erpret this result as normal/abnormal . [facility] HospitalQzyoedbSUHADMPXMR6260-14-81 07:59:00 Test Item Value Reference Range Interpretation Comments Basophils # (test code 0.1 See_Comment [Aut omated message] The = Basophils #) system which generated this result tra nsmitted reference range : <=0.2. The reference r robbie was not used to int erpret this result as normal/abnormal . [facility] HospitalNwkddlzDIDGIYBBRD5427-07-37 07:59:00 Test Item Value Reference Range Interpretation Comments Lymphocytes (test code = Lymphocytes) 21.7 20.0-40.0 [facility] HospitalGrcxqsaHZSDMILVAW0086-18-66 07:59:00 Test Item Value Reference Range Interpretation Comments Segs (test code = Segs) 65.6 45.0-75.0 [facility] HospitalLkjgxhvJULJVJCRTF3438-19-09 07:59:00 Test Item Value Reference Range Interpretation Comments Basophils (test code = 0.8 See_Comment [Aut omated message] The Basophils) system which ge nerated this result tra nsmitted reference range : <=1.0. The reference r robbie was not used to int erpret this result as normal/abnormal . [facility] HospitalSorsgvaXOKGTIPUBI1725-49-21 07:59:00 Test Item Value Reference Range Interpretation Comments Eosinophils (test code = 2.1 See_Comment [A utomated message] The Eosinophils) system which ge nerated this result tra nsmitted reference range : <=4.0. The reference r robbie was not used to int erpret this result as normal/abnormal . [facility] HospitalYkdccsbEYBJXKQJPM8112-52-83 07:59:00 Test Item Value Reference Range Interpretation Comments Monocytes (test code = Monocytes) 9.8 2.0-12.0 [facility]CHEM YYJOW2218-33-72 07:59:00 Test Item Value Reference Range Interpretation Comments Phosphorus (test code = Phosphorus) 3.3 2.5-4.5 [facility] ArlingtonCHEM MBCGG3622-31-70 07:59:00 Test Item Value Reference Range Interpretation Comments Magnesium Lvl (test code = Magnesium 1.8 1.8-2.4 Lvl) [facility] CenterGkripayTRTTBLVKGAKZ7395-74-99 07:59:00 Test Item Value Reference Range Interpretation Comments AGAP (test code = AGAP) 11.2 10.0-20.0 [facility] CenterEkbcaxjBQWMUUJQOIQY7787-21-81 07:59:00 Test Item Value Reference Range Interpretation Comments eGFR (test code = eGFR) 49 [facility]enLhtciofPJRQJRHUUMAS0723-28-60 07:59:00 Test Item Value Reference Range Interpretation Comments Calcium Lvl (test code = Calcium Lvl) 8.4 8.5-10.5 [facility] CenterNwoslkeAAFXZXRMZJMW5425-35-48 07:59:00 Test Item Value Reference Range Interpretation Comments Potassium Lvl (test code = Potassium 4.2 3.5-5.1 Lvl) [facility] CenterVjbyqqnHUYDRHPXAPYJ0690-20-63 07:59:00 Test Item Value Reference Range Interpretation Comments Chloride Lvl (test code = Chloride Lvl) 105 95-109 [facility] CenterUeghsfyRDKCFTBQUJFV1238-30-92 07:59:00 Test Item Value Reference Range Interpretation Comments CO2 (test code = CO2) 28 24-32 [facility] CenterColelbvOOFCZDHPRILI5483-04-51 07:59:00 Test Item Value Reference Range Interpretation Comments BUN (test code = BUN) 22 7-22 [facility] CenterBqzqbjeBCJGSKWKZPIN0552-00-10 07:59:00 Test Item Value Reference Range Interpretation Comments Glucose Lvl (test code = Glucose Lvl) 109 70-99 [facility] CenterMeppewpXDDXEVNAJQXY6564-54-55 07:59:00 Test Item Value Reference Range Interpretation Comments Creatinine Lvl (test code = Creatinine 1.07 0.50-1.40 Lvl) [facility] CenterPumjfvrSJBOJVJIMWYD1794-77-88 07:59:00 Test Item Value Reference Range Interpretation Comments Sodium Lvl (test code = Sodium Lvl) 140 135-145 [facility] HospitalPjqazvlSHVQHQQUTN9741-35-75 07:59:00 Test Item Value Reference Range Interpretation Comments WBC (test code = WBC) 7.3 3.7-10.4 [facility] HospitalValnzvoHWKQBSUOOB9183-06-58 07:59:00 Test Item Value Reference Range Interpretation Comments MCH (test code = MCH) 29.6 pg 27.0-31.0 [facility] HospitalResezxgUHWXCEEZOC4738-69-23 07:59:00 Test Item Value Reference Range Interpretation Comments MCV (test code = MCV) 88.9 80.0-98.0 [facility] HospitalQldlwuqAXOONEHZCX3210-75-64 07:59:00 Test Item Value Reference Range Interpretation Comments Hct (test code = Hct) 36.7 36.0-48.0 [facility] HospitalUkvltmpOEUMLVZIMV3654-38-71 07:59:00 Test Item Value Reference Range Interpretation Comments Hgb (test code = Hgb) 12.2 12.0-16.0 [facility] HospitalYokqnfbPOMDKTKGIX8056-61-34 07:59:00 Test Item Value Reference Range Interpretation Comments RBC (test code = RBC) 4.12 4.20-5.40 [facility] HospitalGozckcwLXGKNVHPPB7542-89-69 07:59:00 Test Item Value Reference Range Interpretation Comments MPV (test code = MPV) 7.3 7.4-10.4 [facility] HospitalHmmqbhaKZYHSHQFVA3448-70-22 07:59:00 Test Item Value Reference Range Interpretation Comments Platelet (test code = Platelet) 290 133-450 [facility] HospitalXxhwpztFONKUKFTHH7409-42-78 07:59:00 Test Item Value Reference Range Interpretation Comments RDW (test code = RDW) 13.8 11.5-14.5 [facility] HospitalQvqjfolHUWAAHRGPK0632-09-40 07:59:00 Test Item Value Reference Range Interpretation Comments MCHC (test code = MCHC) 33.3 32.0-36.0 [facility] HospitalImltbevLGQSLUWDNO2429-40-50 07:59:00 Test Item Value Reference Range Interpretation Comments Lymphocytes # (test code = Lymphocytes 1.6 1.0-5.5 #) [facility] HospitalZnipnubKVWXJODOSH1929-34-65 07:59:00 Test Item Value Reference Range Interpretation Comments Segs-Bands # (test code = Segs-Bands #) 4.8 1.5-8.1 [facility] HospitalCmmkcggDYIJRUJQOL8639-25-86 07:59:00 Test Item Value Reference Range Interpretation Comments Eosinophils # (test code 0.2 See_Comment [A utomated message] The = Eosinophils #) system whic h generated this result tra nsmitted reference range : <=0.5. The reference r robbie was not used to int erpret this result as normal/abnormal . [facility] HospitalStkmserCZNEMDGSSL2039-40-80 07:59:00 Test Item Value Reference Range Interpretation Comments Monocytes # (test code 0.7 See_Comment [Aut omated message] The = Monocytes #) system which generated this result tra nsmitted reference range : <=0.8. The reference r robbie was not used to int erpret this result as normal/abnormal . [facility] HospitalBgbtibsHYCOUTBKPQ9844-99-27 07:59:00 Test Item Value Reference Range Interpretation Comments Basophils # (test code 0.1 See_Comment [Aut omated message] The = Basophils #) system which generated this result tra nsmitted reference range : <=0.2. The reference r robbie was not used to int erpret this result as normal/abnormal . [facility] HospitalOpxdwtoQTFRSUMEBI2148-77-19 07:59:00 Test Item Value Reference Range Interpretation Comments Lymphocytes (test code = Lymphocytes) 21.7 20.0-40.0 [facility] HospitalUgzoqmeQHAAYDUSIU2691-49-76 07:59:00 Test Item Value Reference Range Interpretation Comments Segs (test code = Segs) 65.6 45.0-75.0 [facility] HospitalThweplqYNWDJNGJYP1432-80-60 07:59:00 Test Item Value Reference Range Interpretation Comments Basophils (test code = 0.8 See_Comment [Aut omated message] The Basophils) system which ge nerated this result tra nsmitted reference range : <=1.0. The reference r robbie was not used to int erpret this result as normal/abnormal . [facility] HospitalUugdjhcLAVSNFLHRB6754-42-63 07:59:00 Test Item Value Reference Range Interpretation Comments Eosinophils (test code = 2.1 See_Comment [A utomated message] The Eosinophils) system which ge nerated this result tra nsmitted reference range : <=4.0. The reference r robbie was not used to int erpret this result as normal/abnormal . [facility] HospitalBewwrkaETONOYXIFZ3869-57-28 07:59:00 Test Item Value Reference Range Interpretation Comments Monocytes (test code = Monocytes) 9.8 2.0-12.0 [facility] CWZQE7108-50-31 07:59:00 Test Item Value Reference Range Interpretation Comments Phosphorus (test code = Phosphorus) 3.3 2.5-4.5 [facility] VHELJ5215-00-11 07:59:00 Test Item Value Reference Range Interpretation Comments Magnesium Lvl (test code = Magnesium 1.8 1.8-2.4 Lvl) [facility] CenterNjwruzeGTQNRWYBHMEX6546-38-94 07:59:00 Test Item Value Reference Range Interpretation Comments AGAP (test code = AGAP) 11.2 10.0-20.0 [facility] CenterEicuouoGTMBEBHXVCST1965-07-61 07:59:00 Test Item Value Reference Range Interpretation Comments eGFR (test code = eGFR) 49 [facility] CenterLwqcclsKSYEASWBRJXB1714-35-56 07:59:00 Test Item Value Reference Range Interpretation Comments Calcium Lvl (test code = Calcium Lvl) 8.4 8.5-10.5 [facility] CenterSvrlgtiTQBPNUQILFLK8336-53-20 07:59:00 Test Item Value Reference Range Interpretation Comments Potassium Lvl (test code = Potassium 4.2 3.5-5.1 Lvl) [facility] CenterFxtbgahOIGCBNMUGGKI5834-24-78 07:59:00 Test Item Value Reference Range Interpretation Comments Chloride Lvl (test code = Chloride Lvl) 105 95-109 [facility] CenterIfqygbsXTHUDIDCGJPN0567-02-55 07:59:00 Test Item Value Reference Range Interpretation Comments CO2 (test code = CO2) 28 24-32 [facility] CenterAhgpymlUEOJWRGRRHCW4123-12-44 07:59:00 Test Item Value Reference Range Interpretation Comments BUN (test code = BUN) 22 7-22 [facility] CenterBkyoouaPBWLMUWTJUXX6218-22-16 07:59:00 Test Item Value Reference Range Interpretation Comments Glucose Lvl (test code = Glucose Lvl) 109 70-99 [facility] CenterSiuvmewHGPVBQHZGNUJ9143-19-43 07:59:00 Test Item Value Reference Range Interpretation Comments Creatinine Lvl (test code = Creatinine 1.07 0.50-1.40 Lvl) [facility] CenterAocuhczSGGNGGORLSIZ3288-37-63 07:59:00 Test Item Value Reference Range Interpretation Comments Sodium Lvl (test code = Sodium Lvl) 140 135-145 [facility] HospitalDnfcpufSVIZHOVRFF9150-15-42 07:59:00 Test Item Value Reference Range Interpretation Comments WBC (test code = WBC) 7.3 3.7-10.4 [facility] HospitalAuxeapkUPNYQSTOQJ0264-95-86 07:59:00 Test Item Value Reference Range Interpretation Comments MCH (test code = MCH) 29.6 pg 27.0-31.0 [facility] HospitalKtsfyvnHSFMEPJDGZ1194-74-09 07:59:00 Test Item Value Reference Range Interpretation Comments MCV (test code = MCV) 88.9 80.0-98.0 [facility] HospitalNmrtsbrTTVGKJVBMB3941-54-78 07:59:00 Test Item Value Reference Range Interpretation Comments Hct (test code = Hct) 36.7 36.0-48.0 [facility] HospitalUqihkxqUWPIYQEZSR7674-62-76 07:59:00 Test Item Value Reference Range Interpretation Comments Hgb (test code = Hgb) 12.2 12.0-16.0 [facility] HospitalHhebnyjFVUNUBGPJV5915-62-81 07:59:00 Test Item Value Reference Range Interpretation Comments RBC (test code = RBC) 4.12 4.20-5.40 [facility] HospitalYbgcfkaIMXOJEJZFG5171-11-92 07:59:00 Test Item Value Reference Range Interpretation Comments MPV (test code = MPV) 7.3 7.4-10.4 [facility]NsjovtqCMUTAOXMQV7440-97-01 07:59:00 Test Item Value Reference Range Interpretation Comments Platelet (test code = Platelet) 290 133-450 [facility] HospitalQimfkgcJOWUVGYYBO8678-40-83 07:59:00 Test Item Value Reference Range Interpretation Comments RDW (test code = RDW) 13.8 11.5-14.5 [facility] HospitalLwlsxnyAGCGADNGBJ9033-40-47 07:59:00 Test Item Value Reference Range Interpretation Comments MCHC (test code = MCHC) 33.3 32.0-36.0 [facility] HospitalAvzrqsvCHOPDNKOWU7948-78-00 07:59:00 Test Item Value Reference Range Interpretation Comments Lymphocytes # (test code = Lymphocytes 1.6 1.0-5.5 #) [facility] HospitalDzutoteUMZIURWPBJ4588-43-41 07:59:00 Test Item Value Reference Range Interpretation Comments Segs-Bands # (test code = Segs-Bands #) 4.8 1.5-8.1 [facility] HospitalHunhyucFFIMXPWPVV7343-06-94 07:59:00 Test Item Value Reference Range Interpretation Comments Eosinophils # (test code 0.2 See_Comment [A utomated message] The = Eosinophils #) system whic h generated this result tra nsmitted reference range : <=0.5. The reference r robbie was not used to int erpret this result as normal/abnormal . [facility] HospitalBxzhxczROSLPPPABH6928-79-82 07:59:00 Test Item Value Reference Range Interpretation Comments Monocytes # (test code 0.7 See_Comment [Aut omated message] The = Monocytes #) system which generated this result tra nsmitted reference range : <=0.8. The reference r robbie was not used to int erpret this result as normal/abnormal . [facility] HospitalSvzrsfuEKGXPTBNOP7038-86-50 07:59:00 Test Item Value Reference Range Interpretation Comments Basophils # (test code 0.1 See_Comment [Aut omated message] The = Basophils #) system which generated this result tra nsmitted reference range : <=0.2. The reference r robbie was not used to int erpret this result as normal/abnormal . [facility] HospitalAjoqtnyXHWPPIYZFN4180-81-56 07:59:00 Test Item Value Reference Range Interpretation Comments Lymphocytes (test code = Lymphocytes) 21.7 20.0-40.0 [facility] HospitalYnkbkoqPLJRSGBHVI8071-67-68 07:59:00 Test Item Value Reference Range Interpretation Comments Segs (test code = Segs) 65.6 45.0-75.0 [facility] HospitalYrihknwNOUINIJDTH2108-84-82 07:59:00 Test Item Value Reference Range Interpretation Comments Basophils (test code = 0.8 See_Comment [Aut omated message] The Basophils) system which ge nerated this result tra nsmitted reference range : <=1.0. The reference r robbie was not used to int erpret this result as normal/abnormal . [facility] HospitalWogrjpnXMLUHZILQJ1137-97-45 07:59:00 Test Item Value Reference Range Interpretation Comments Eosinophils (test code = 2.1 See_Comment [A utomated message] The Eosinophils) system which ge nerated this result tra nsmitted reference range : <=4.0. The reference r robbie was not used to int erpret this result as normal/abnormal . [facility] HospitalUfrtwweGXKRWOBEST5146-36-23 07:59:00 Test Item Value Reference Range Interpretation Comments Monocytes (test code = Monocytes) 9.8 2.0-12.0 [facility]CHEM DOXGG8412-16-19 07:59:00 Test Item Value Reference Range Interpretation Comments Phosphorus (test code = Phosphorus) 3.3 2.5-4.5 [facility] ArlingtonKamelio KMFDK0169-38-78 07:59:00 Test Item Value Reference Range Interpretation Comments Magnesium Lvl (test code = Magnesium 1.8 1.8-2.4 Lvl) [facility]GzojcziBNQTEQWIAOJX8987-55-69 07:59:00 Test Item Value Reference Range Interpretation Comments AGAP (test code = AGAP) 11.2 10.0-20.0 [facility] CenterIuuygvcDCAYMFKWICVC3900-80-13 07:59:00 Test Item Value Reference Range Interpretation Comments eGFR (test code = eGFR) 49 [facility] CenterBthrtlhHIUHGAWXFAXP1975-59-43 07:59:00 Test Item Value Reference Range Interpretation Comments Calcium Lvl (test code = Calcium Lvl) 8.4 8.5-10.5 [facility] CenterDownqemMDULTFBAHJMM9920-50-16 07:59:00 Test Item Value Reference Range Interpretation Comments Potassium Lvl (test code = Potassium 4.2 3.5-5.1 Lvl) [facility] CenterBtweoftGRRUMHPKRGGQ7257-11-76 07:59:00 Test Item Value Reference Range Interpretation Comments Chloride Lvl (test code = Chloride Lvl) 105 95-109 [facility] CenterNgzbpbyDVTZUKXTEXTE0600-76-04 07:59:00 Test Item Value Reference Range Interpretation Comments CO2 (test code = CO2) 28 24-32 [facility] CenterRpxzeloLROCPBFRXZGY4577-09-01 07:59:00 Test Item Value Reference Range Interpretation Comments BUN (test code = BUN) 22 7-22 [facility] CenterNmzpuapWDAHRCAEDOPW4089-09-25 07:59:00 Test Item Value Reference Range Interpretation Comments Glucose Lvl (test code = Glucose Lvl) 109 70-99 [facility] CenterFrejcdfQQBUBHGXKHDP1633-03-12 07:59:00 Test Item Value Reference Range Interpretation Comments Creatinine Lvl (test code = Creatinine 1.07 0.50-1.40 Lvl) [facility] CenterTfynjfrLFVYSPWSAOGN1919-84-60 07:59:00 Test Item Value Reference Range Interpretation Comments Sodium Lvl (test code = Sodium Lvl) 140 135-145 [facility] HospitalBtfpwouLPBEVXNLAG5666-65-50 07:59:00 Test Item Value Reference Range Interpretation Comments WBC (test code = WBC) 7.3 3.7-10.4 [facility] HospitalLjaghxzFAHWGBWMIP3222-95-46 07:59:00 Test Item Value Reference Range Interpretation Comments MCH (test code = MCH) 29.6 pg 27.0-31.0 [facility] HospitalMflmxybARSDZALYEV3726-36-26 07:59:00 Test Item Value Reference Range Interpretation Comments MCV (test code = MCV) 88.9 80.0-98.0 [facility] HospitalUzcxmchTEMZJOZEMQ8745-32-86 07:59:00 Test Item Value Reference Range Interpretation Comments Hct (test code = Hct) 36.7 36.0-48.0 [facility] HospitalImnsrxfFNSYMMLATY0793-11-78 07:59:00 Test Item Value Reference Range Interpretation Comments Hgb (test code = Hgb) 12.2 12.0-16.0 [facility] HospitalYkzsyqvMJAMFDGJBE5859-33-04 07:59:00 Test Item Value Reference Range Interpretation Comments RBC (test code = RBC) 4.12 4.20-5.40 [facility] HospitalHhshikyJRQYPWUNWY1778-71-41 07:59:00 Test Item Value Reference Range Interpretation Comments MPV (test code = MPV) 7.3 7.4-10.4 [facility] HospitalPpmhbnbBSIPINKCRI7655-88-78 07:59:00 Test Item Value Reference Range Interpretation Comments Platelet (test code = Platelet) 290 133-450 [facility] HospitalHefqoonMOOLEDUSPH6221-25-72 07:59:00 Test Item Value Reference Range Interpretation Comments RDW (test code = RDW) 13.8 11.5-14.5 [facility] HospitalDfapfnbWLWLGKNVXU8246-67-56 07:59:00 Test Item Value Reference Range Interpretation Comments MCHC (test code = MCHC) 33.3 32.0-36.0 [facility] HospitalBdgwrzeRGNQMCBMMX0858-58-86 07:59:00 Test Item Value Reference Range Interpretation Comments Lymphocytes # (test code = Lymphocytes 1.6 1.0-5.5 #) [facility] HospitalDdwdjcuWWYURDSRZY9962-62-83 07:59:00 Test Item Value Reference Range Interpretation Comments Segs-Bands # (test code = Segs-Bands #) 4.8 1.5-8.1 [facility] HospitalRnjotkeTOMMMTAEBM6046-58-60 07:59:00 Test Item Value Reference Range Interpretation Comments Eosinophils # (test code 0.2 See_Comment [A utomated message] The = Eosinophils #) system whic h generated this result tra nsmitted reference range : <=0.5. The reference r robbie was not used to int erpret this result as normal/abnormal . [facility] HospitalMljvcdjRUFJEHNHYM9181-59-73 07:59:00 Test Item Value Reference Range Interpretation Comments Monocytes # (test code 0.7 See_Comment [Aut omated message] The = Monocytes #) system which generated this result tra nsmitted reference range : <=0.8. The reference r robbie was not used to int erpret this result as normal/abnormal . [facility] HospitalEwjswfpRRUOJTSQIJ2207-97-28 07:59:00 Test Item Value Reference Range Interpretation Comments Basophils # (test code 0.1 See_Comment [Aut omated message] The = Basophils #) system which generated this result tra nsmitted reference range : <=0.2. The reference r robbie was not used to int erpret this result as normal/abnormal . [facility] HospitalTjryazhHTTFUHTYGW7661-15-70 07:59:00 Test Item Value Reference Range Interpretation Comments Lymphocytes (test code = Lymphocytes) 21.7 20.0-40.0 [facility] HospitalLjjddiuJFWTXSGOMO1492-92-04 07:59:00 Test Item Value Reference Range Interpretation Comments Segs (test code = Segs) 65.6 45.0-75.0 [facility] HospitalPwxvdkwPAJOXFRWZF9806-12-26 07:59:00 Test Item Value Reference Range Interpretation Comments Basophils (test code = 0.8 See_Comment [Aut omated message] The Basophils) system which ge nerated this result tra nsmitted reference range : <=1.0. The reference r robbie was not used to int erpret this result as normal/abnormal . [facility] HospitalLtvdfuiVOQSDNKNVL2491-89-21 07:59:00 Test Item Value Reference Range Interpretation Comments Eosinophils (test code = 2.1 See_Comment [A utomated message] The Eosinophils) system which ge nerated this result tra nsmitted reference range : <=4.0. The reference r robbie was not used to int erpret this result as normal/abnormal . [facility] HospitalHnrtwpoUHSRKAMBQA3610-63-98 07:59:00 Test Item Value Reference Range Interpretation Comments Monocytes (test code = Monocytes) 9.8 2.0-12.0 [facility] ArlingtonK[facility] FQWJF1636-82-67 07:59:00 Test Item Value Reference Range Interpretation Comments Phosphorus (test code = Phosphorus) 3.3 2.5-4.5 [facility] ArlingtonKamelio WJLLK6647-81-13 07:59:00 Test Item Value Reference Range Interpretation Comments Magnesium Lvl (test code = Magnesium 1.8 1.8-2.4 Lvl) [facility] CenterEjvkqhcBIOXVSAOTFRR8459-78-26 07:59:00 Test Item Value Reference Range Interpretation Comments AGAP (test code = AGAP) 11.2 10.0-20.0 [facility] CenterBzbtjhqWOGKAPEKMOGG9218-80-42 07:59:00 Test Item Value Reference Range Interpretation Comments eGFR (test code = eGFR) 49 [facility] CenterUvbhacqTPIDFKQKORIY5755-56-51 07:59:00 Test Item Value Reference Range Interpretation Comments Calcium Lvl (test code = Calcium Lvl) 8.4 8.5-10.5 [facility] CenterYpsssuyWHMJNCEKFVWM3231-17-96 07:59:00 Test Item Value Reference Range Interpretation Comments Potassium Lvl (test code = Potassium 4.2 3.5-5.1 Lvl) [facility] CenterEzxfoowKXEOBDGRJXJP4395-51-39 07:59:00 Test Item Value Reference Range Interpretation Comments Chloride Lvl (test code = Chloride Lvl) 105 95-109 [facility] CenterThnmnypLDUPRVTALLMI0073-72-97 07:59:00 Test Item Value Reference Range Interpretation Comments CO2 (test code = CO2) 28 24-32 [facility] CenterUfwokycVIOVEXYXCXYP4233-19-37 07:59:00 Test Item Value Reference Range Interpretation Comments BUN (test code = BUN) 22 7-22 [facility] CenterDloeubkSNADLHOROEQA3492-64-06 07:59:00 Test Item Value Reference Range Interpretation Comments Glucose Lvl (test code = Glucose Lvl) 109 70-99 [facility] CenterTvqfrieVUDURRZMQMBK4885-96-02 07:59:00 Test Item Value Reference Range Interpretation Comments Creatinine Lvl (test code = Creatinine 1.07 0.50-1.40 Lvl) [facility] CenterJoevotlNLIESSMZZQDR1947-93-20 07:59:00 Test Item Value Reference Range Interpretation Comments Sodium Lvl (test code = Sodium Lvl) 140 135-145 [facility] HospitalOsqflbgSHEZQUZKIW3519-67-24 07:59:00 Test Item Value Reference Range Interpretation Comments WBC (test code = WBC) 7.3 3.7-10.4 [facility] HospitalShyegsdTFSVUGSECF6496-71-90 07:59:00 Test Item Value Reference Range Interpretation Comments MCH (test code = MCH) 29.6 pg 27.0-31.0 [facility] HospitalJlqnsgnUTVQVAMOOU9648-14-05 07:59:00 Test Item Value Reference Range Interpretation Comments MCV (test code = MCV) 88.9 80.0-98.0 [facility] HospitalOvhvgzcEQMYLTLPPG4481-98-11 07:59:00 Test Item Value Reference Range Interpretation Comments Hct (test code = Hct) 36.7 36.0-48.0 [facility] HospitalAbkexywHQZFEFIBJS2259-43-55 07:59:00 Test Item Value Reference Range Interpretation Comments Hgb (test code = Hgb) 12.2 12.0-16.0 [facility] HospitalNmvyiqeNJCZKLRELH9175-62-80 07:59:00 Test Item Value Reference Range Interpretation Comments RBC (test code = RBC) 4.12 4.20-5.40 [facility] HospitalEnpfbxsCXHVBTQKSU9439-02-60 07:59:00 Test Item Value Reference Range Interpretation Comments MPV (test code = MPV) 7.3 7.4-10.4 [facility] HospitalVdxgituVQHWNCIBTA7641-20-37 07:59:00 Test Item Value Reference Range Interpretation Comments Platelet (test code = Platelet) 290 133-450 [facility] HospitalLpvuupuXHAOYVLIEK4820-02-44 07:59:00 Test Item Value Reference Range Interpretation Comments RDW (test code = RDW) 13.8 11.5-14.5 [facility] HospitalKpadytxTKLLUFJVNB9062-69-72 07:59:00 Test Item Value Reference Range Interpretation Comments MCHC (test code = MCHC) 33.3 32.0-36.0 [facility] HospitalJdevjjzZBQXEFOQAR3205-37-04 07:59:00 Test Item Value Reference Range Interpretation Comments Lymphocytes # (test code = Lymphocytes 1.6 1.0-5.5 #) [facility] HospitalUxticauASGECKKBHC9830-80-59 07:59:00 Test Item Value Reference Range Interpretation Comments Segs-Bands # (test code = Segs-Bands #) 4.8 1.5-8.1 [facility] HospitalAyrbrvbATSJEIRCLV9527-79-09 07:59:00 Test Item Value Reference Range Interpretation Comments Eosinophils # (test code 0.2 See_Comment [A utomated message] The = Eosinophils #) system whic h generated this result tra nsmitted reference range : <=0.5. The reference r robbie was not used to int erpret this result as normal/abnormal . [facility] HospitalZnsaxiqHOSRPTLSKT5888-52-73 07:59:00 Test Item Value Reference Range Interpretation Comments Monocytes # (test code 0.7 See_Comment [Aut omated message] The = Monocytes #) system which generated this result tra nsmitted reference range : <=0.8. The reference r robbie was not used to int erpret this result as normal/abnormal . [facility] HospitalMokkxuiRUIROYNBTM2661-07-13 07:59:00 Test Item Value Reference Range Interpretation Comments Basophils # (test code 0.1 See_Comment [Aut omated message] The = Basophils #) system which generated this result tra nsmitted reference range : <=0.2. The reference r robbie was not used to int erpret this result as normal/abnormal . [facility] HospitalSpqjziwCXHRVRNYFD6418-69-26 07:59:00 Test Item Value Reference Range Interpretation Comments Lymphocytes (test code = Lymphocytes) 21.7 20.0-40.0 [facility] HospitalAmsneblZOCVIJCWYS7030-32-52 07:59:00 Test Item Value Reference Range Interpretation Comments Segs (test code = Segs) 65.6 45.0-75.0 [facility] HospitalKemlqviPSEJNKBCVB8538-00-20 07:59:00 Test Item Value Reference Range Interpretation Comments Basophils (test code = 0.8 See_Comment [Aut omated message] The Basophils) system which ge nerated this result tra nsmitted reference range : <=1.0. The reference r robbie was not used to int erpret this result as normal/abnormal . [facility] HospitalTpgsgqaQNRZLBNBBX1730-80-59 07:59:00 Test Item Value Reference Range Interpretation Comments Eosinophils (test code = 2.1 See_Comment [A utomated message] The Eosinophils) system which ge nerated this result tra nsmitted reference range : <=4.0. The reference r robbie was not used to int erpret this result as normal/abnormal . [facility] HospitalHfhjntdWXZEHMICMA2709-27-05 07:59:00 Test Item Value Reference Range Interpretation Comments Monocytes (test code = Monocytes) 9.8 2.0-12.0 [facility] HospitalOibvqlnBFZWMVWOQS0370-49-76 08:51:00 Test Item Value Reference Range Interpretation Comments Segs (test code = Segs) 53.8 45.0-75.0 [facility] HospitalLqnpxawZOYNOSUGLC1680-66-67 08:51:00 Test Item Value Reference Range Interpretation Comments Monocytes # (test code 0.6 See_Comment [Aut omated message] The = Monocytes #) system which generated this result tra nsmitted reference range : <=0.8. The reference r robbie was not used to int erpret this result as normal/abnormal . [facility] HospitalXvixgrbTDPYKZNSWX1344-97-87 08:51:00 Test Item Value Reference Range Interpretation Comments Basophils (test code = 0.7 See_Comment [Aut omated message] The Basophils) system which ge nerated this result tra nsmitted reference range : <=1.0. The reference r robbie was not used to int erpret this result as normal/abnormal . [facility] HospitalKcfaujiNIAEGVGDXB3641-60-24 08:51:00 Test Item Value Reference Range Interpretation Comments Segs-Bands # (test code = Segs-Bands #) 3.1 1.5-8.1 [facility] HospitalWukaykzRVUTCVAKZV9916-21-17 08:51:00 Test Item Value Reference Range Interpretation Comments Monocytes (test code = Monocytes) 9.7 2.0-12.0 [facility] HospitalMquazhsUBPWITZTOV7345-87-87 08:51:00 Test Item Value Reference Range Interpretation Comments Eosinophils (test code = 3.5 See_Comment [A utomated message] The Eosinophils) system which ge nerated this result tra nsmitted reference range : <=4.0. The reference r robbie was not used to int erpret this result as normal/abnormal . [facility] HospitalUiyivuoSCPOTTSGXN6363-05-19 08:51:00 Test Item Value Reference Range Interpretation Comments Lymphocytes (test code = Lymphocytes) 32.3 20.0-40.0 [facility] HospitalXxmdzvtSSFPYUNUHT6290-30-44 08:51:00 Test Item Value Reference Range Interpretation Comments Eosinophils # (test code 0.2 See_Comment [A utomated message] The = Eosinophils #) system whic h generated this result tra nsmitted reference range : <=0.5. The reference r robbie was not used to int erpret this result as normal/abnormal . [facility] HospitalAuifwskKKUOSWNCTK7785-25-45 08:51:00 Test Item Value Reference Range Interpretation Comments Lymphocytes # (test code = Lymphocytes 1.8 1.0-5.5 #) [facility] HospitalDreaobdDAXOESVROC8549-87-36 08:51:00 Test Item Value Reference Range Interpretation Comments MPV (test code = MPV) 7.6 7.4-10.4 [facility] HospitalAdahawdSTCEPGHEIY9698-19-25 08:51:00 Test Item Value Reference Range Interpretation Comments MCH (test code = MCH) 30.0 pg 27.0-31.0 [facility] HospitalStbsbzfBLHSXZSUMK8981-40-58 08:51:00 Test Item Value Reference Range Interpretation Comments MCV (test code = MCV) 89.1 80.0-98.0 [facility] HospitalFeizaapXAGWBPIYMP4067-71-31 08:51:00 Test Item Value Reference Range Interpretation Comments MCHC (test code = MCHC) 33.7 32.0-36.0 [facility] HospitalRdheojwAXWLFLBSTV4579-83-24 08:51:00 Test Item Value Reference Range Interpretation Comments RDW (test code = RDW) 13.8 11.5-14.5 [facility] HospitalXxkmrhmTKIRPXBFWR7825-42-62 08:51:00 Test Item Value Reference Range Interpretation Comments Platelet (test code = Platelet) 266 133-450 [facility] HospitalYmsejqdILZDMKOLZU1828-55-97 08:51:00 Test Item Value Reference Range Interpretation Comments Hgb (test code = Hgb) 12.1 12.0-16.0 [facility] HospitalQedvsgnXYVYQLGQFC5070-01-04 08:51:00 Test Item Value Reference Range Interpretation Comments Hct (test code = Hct) 35.8 36.0-48.0 [facility] HospitalCiyobjjTUFRKHALKZ0524-60-27 08:51:00 Test Item Value Reference Range Interpretation Comments WBC (test code = WBC) 5.7 3.7-10.4 [facility] HospitalAfxafjiIZNVBYOMRH8525-61-18 08:51:00 Test Item Value Reference Range Interpretation Comments RBC (test code = RBC) 4.01 4.20-5.40 [facility] HospitalMobctxhFURDXFXCKM7590-21-10 08:51:00 Test Item Value Reference Range Interpretation Comments Segs (test code = Segs) 53.8 45.0-75.0 [facility] HospitalOtbgnbmKVJKILOGLY5572-13-98 08:51:00 Test Item Value Reference Range Interpretation Comments Monocytes # (test code 0.6 See_Comment [Aut omated message] The = Monocytes #) system which generated this result tra nsmitted reference range : <=0.8. The reference r robbie was not used to int erpret this result as normal/abnormal . [facility] HospitalLckyojdTIBAWIMVEX5756-68-67 08:51:00 Test Item Value Reference Range Interpretation Comments Basophils (test code = 0.7 See_Comment [Aut omated message] The Basophils) system which ge nerated this result tra nsmitted reference range : <=1.0. The reference r robbie was not used to int erpret this result as normal/abnormal . [facility] HospitalBfyvarjRHUIHMBAQP1898-26-85 08:51:00 Test Item Value Reference Range Interpretation Comments Segs-Bands # (test code = Segs-Bands #) 3.1 1.5-8.1 [facility] HospitalWfuhcwqDDCHODINHU9121-78-56 08:51:00 Test Item Value Reference Range Interpretation Comments Monocytes (test code = Monocytes) 9.7 2.0-12.0 [facility] HospitalHvlftysONHESBFRFZ5896-72-45 08:51:00 Test Item Value Reference Range Interpretation Comments Eosinophils (test code = 3.5 See_Comment [A utomated message] The Eosinophils) system which ge nerated this result tra nsmitted reference range : <=4.0. The reference r robbie was not used to int erpret this result as normal/abnormal . [facility] HospitalBosramfEEQYITFSKB2041-47-94 08:51:00 Test Item Value Reference Range Interpretation Comments Lymphocytes (test code = Lymphocytes) 32.3 20.0-40.0 [facility] HospitalZydrhkiHMVSSWBAJC1220-25-89 08:51:00 Test Item Value Reference Range Interpretation Comments Eosinophils # (test code 0.2 See_Comment [A utomated message] The = Eosinophils #) system whic h generated this result tra nsmitted reference range : <=0.5. The reference r robbie was not used to int erpret this result as normal/abnormal . [facility] HospitalWctrelaBTKLSXDRXL2784-64-40 08:51:00 Test Item Value Reference Range Interpretation Comments Lymphocytes # (test code = Lymphocytes 1.8 1.0-5.5 #) [facility] HospitalFmgkfjkQJGJWCDJRN9915-69-21 08:51:00 Test Item Value Reference Range Interpretation Comments MPV (test code = MPV) 7.6 7.4-10.4 [facility] HospitalFiurckcPDTWZECDHS7904-95-82 08:51:00 Test Item Value Reference Range Interpretation Comments MCH (test code = MCH) 30.0 pg 27.0-31.0 [facility] HospitalTbiytduJXWXQVUDPN3543-97-39 08:51:00 Test Item Value Reference Range Interpretation Comments MCV (test code = MCV) 89.1 80.0-98.0 [facility] HospitalBfufntuNJPNREHXRK8059-76-23 08:51:00 Test Item Value Reference Range Interpretation Comments MCHC (test code = MCHC) 33.7 32.0-36.0 [facility] HospitalPkpdppqHHZPTXWOEP5208-64-24 08:51:00 Test Item Value Reference Range Interpretation Comments RDW (test code = RDW) 13.8 11.5-14.5 [facility] HospitalKhdnphfKULWBATGSN3307-50-09 08:51:00 Test Item Value Reference Range Interpretation Comments Platelet (test code = Platelet) 266 133-450 [facility] HospitalEbcdumwKVCQOLOKPA2763-88-42 08:51:00 Test Item Value Reference Range Interpretation Comments Hgb (test code = Hgb) 12.1 12.0-16.0 [facility] HospitalDhkkqhvMCUBRNJHSV3856-99-78 08:51:00 Test Item Value Reference Range Interpretation Comments Hct (test code = Hct) 35.8 36.0-48.0 [facility] HospitalFvfzymyCQHYHZYESM7336-02-04 08:51:00 Test Item Value Reference Range Interpretation Comments WBC (test code = WBC) 5.7 3.7-10.4 [facility]MsjkyqfTRSKVQWSDI9056-80-55 08:51:00 Test Item Value Reference Range Interpretation Comments RBC (test code = RBC) 4.01 4.20-5.40 [facility]LcqbcjmSFQSZEWLOY9672-85-02 08:51:00 Test Item Value Reference Range Interpretation Comments Segs (test code = Segs) 53.8 45.0-75.0 [facility] HospitalMolstqmEWPVWGBTUG2528-34-07 08:51:00 Test Item Value Reference Range Interpretation Comments Monocytes # (test code 0.6 See_Comment [Aut omated message] The = Monocytes #) system which generated this result tra nsmitted reference range : <=0.8. The reference r robbie was not used to int erpret this result as normal/abnormal . [facility] HospitalFuqasgzBEPREQFWDW0334-32-05 08:51:00 Test Item Value Reference Range Interpretation Comments Basophils (test code = 0.7 See_Comment [Aut omated message] The Basophils) system which ge nerated this result tra nsmitted reference range : <=1.0. The reference r robbie was not used to int erpret this result as normal/abnormal . [facility] HospitalVrkmmmvZYAWLMVQLE1412-12-23 08:51:00 Test Item Value Reference Range Interpretation Comments Segs-Bands # (test code = Segs-Bands #) 3.1 1.5-8.1 [facility] HospitalFrufpcsBSEMWNNFJF0242-67-03 08:51:00 Test Item Value Reference Range Interpretation Comments Monocytes (test code = Monocytes) 9.7 2.0-12.0 [facility] HospitalFytmbpbYYDNXGMOAA6288-90-44 08:51:00 Test Item Value Reference Range Interpretation Comments Eosinophils (test code = 3.5 See_Comment [A utomated message] The Eosinophils) system which ge nerated this result tra nsmitted reference range : <=4.0. The reference r robbie was not used to int erpret this result as normal/abnormal . [facility] HospitalNbohmvgRMQLLXFPAN0618-93-58 08:51:00 Test Item Value Reference Range Interpretation Comments Lymphocytes (test code = Lymphocytes) 32.3 20.0-40.0 [facility] HospitalRyhliucDRFBMCIIOU7992-10-56 08:51:00 Test Item Value Reference Range Interpretation Comments Eosinophils # (test code 0.2 See_Comment [A utomated message] The = Eosinophils #) system whic h generated this result tra nsmitted reference range : <=0.5. The reference r robbie was not used to int erpret this result as normal/abnormal . [facility] HospitalIxzaoycIYKJURHWXY2985-22-33 08:51:00 Test Item Value Reference Range Interpretation Comments Lymphocytes # (test code = Lymphocytes 1.8 1.0-5.5 #) [facility] HospitalYubwthzRPWIJMBGPE7589-87-98 08:51:00 Test Item Value Reference Range Interpretation Comments MPV (test code = MPV) 7.6 7.4-10.4 [facility] HospitalMbhfddfIRGVKRDKXR6656-10-14 08:51:00 Test Item Value Reference Range Interpretation Comments MCH (test code = MCH) 30.0 pg 27.0-31.0 [facility] HospitalDmohdubAXOMEWHWDI3673-84-13 08:51:00 Test Item Value Reference Range Interpretation Comments MCV (test code = MCV) 89.1 80.0-98.0 [facility] HospitalVpyhyzrDYZQKOTCUG5574-08-25 08:51:00 Test Item Value Reference Range Interpretation Comments MCHC (test code = MCHC) 33.7 32.0-36.0 [facility] HospitalTevukjxRENYYFSJGG5948-56-44 08:51:00 Test Item Value Reference Range Interpretation Comments RDW (test code = RDW) 13.8 11.5-14.5 [facility] HospitalOlvmrmpLMHUGAWGLT7368-96-60 08:51:00 Test Item Value Reference Range Interpretation Comments Platelet (test code = Platelet) 266 133-450 [facility] HospitalGotgkohPQBWZRAWSN3220-58-09 08:51:00 Test Item Value Reference Range Interpretation Comments Hgb (test code = Hgb) 12.1 12.0-16.0 [facility] HospitalNarolsfBZQRSHFFGQ4621-22-20 08:51:00 Test Item Value Reference Range Interpretation Comments Hct (test code = Hct) 35.8 36.0-48.0 [facility] HospitalLhihjhjISFVHOEIJW0438-88-09 08:51:00 Test Item Value Reference Range Interpretation Comments WBC (test code = WBC) 5.7 3.7-10.4 [facility] HospitalFjqcrvrLQCSHCWYUI9444-04-15 08:51:00 Test Item Value Reference Range Interpretation Comments RBC (test code = RBC) 4.01 4.20-5.40 [facility] HospitalUrmmtlrMRVEACAHOM7912-27-18 08:51:00 Test Item Value Reference Range Interpretation Comments Segs (test code = Segs) 53.8 45.0-75.0 [facility] HospitalOgweswhCPRMUMCZOJ1128-06-46 08:51:00 Test Item Value Reference Range Interpretation Comments Monocytes # (test code 0.6 See_Comment [Aut omated message] The = Monocytes #) system which generated this result tra nsmitted reference range : <=0.8. The reference r robbie was not used to int erpret this result as normal/abnormal . [facility] HospitalCsllaviOYNDPOZNRJ0021-64-96 08:51:00 Test Item Value Reference Range Interpretation Comments Basophils (test code = 0.7 See_Comment [Aut omated message] The Basophils) system which ge nerated this result tra nsmitted reference range : <=1.0. The reference r robbie was not used to int erpret this result as normal/abnormal . [facility] HospitalDmzwsciKDPPAYTWDE0110-57-24 08:51:00 Test Item Value Reference Range Interpretation Comments Segs-Bands # (test code = Segs-Bands #) 3.1 1.5-8.1 [facility] HospitalFqdtfdmIDLGRQXLAP0832-45-08 08:51:00 Test Item Value Reference Range Interpretation Comments Monocytes (test code = Monocytes) 9.7 2.0-12.0 [facility] HospitalXytwsngAMSWRGRVQW3486-39-90 08:51:00 Test Item Value Reference Range Interpretation Comments Eosinophils (test code = 3.5 See_Comment [A utomated message] The Eosinophils) system which ge nerated this result tra nsmitted reference range : <=4.0. The reference r robbie was not used to int erpret this result as normal/abnormal . [facility]MszzotrKOZXQEDNUU2589-47-43 08:51:00 Test Item Value Reference Range Interpretation Comments Lymphocytes (test code = Lymphocytes) 32.3 20.0-40.0 [facility] HospitalIvzgifpPWSHBFWBUW8323-99-76 08:51:00 Test Item Value Reference Range Interpretation Comments Eosinophils # (test code 0.2 See_Comment [A utomated message] The = Eosinophils #) system whic h generated this result tra nsmitted reference range : <=0.5. The reference r robbie was not used to int erpret this result as normal/abnormal . [facility] HospitalAbfpvtwQOPOJQRBED9554-07-70 08:51:00 Test Item Value Reference Range Interpretation Comments Lymphocytes # (test code = Lymphocytes 1.8 1.0-5.5 #) [facility] HospitalJecajsfIBNBCDPKBF1496-07-55 08:51:00 Test Item Value Reference Range Interpretation Comments MPV (test code = MPV) 7.6 7.4-10.4 [facility] HospitalZwjtsraRBIPPQTGVQ7978-54-71 08:51:00 Test Item Value Reference Range Interpretation Comments MCH (test code = MCH) 30.0 pg 27.0-31.0 [facility] HospitalXqzpbqrTDINSIEZSJ6817-58-62 08:51:00 Test Item Value Reference Range Interpretation Comments MCV (test code = MCV) 89.1 80.0-98.0 [facility] HospitalTfvtokaIYCKNCAMKL6689-53-08 08:51:00 Test Item Value Reference Range Interpretation Comments MCHC (test code = MCHC) 33.7 32.0-36.0 [facility] HospitalTmekcpjVDTZUTLRQN2395-67-02 08:51:00 Test Item Value Reference Range Interpretation Comments RDW (test code = RDW) 13.8 11.5-14.5 [facility] HospitalRjzgqkjLBCXFUDUVW3229-80-21 08:51:00 Test Item Value Reference Range Interpretation Comments Platelet (test code = Platelet) 266 133-450 [facility] HospitalFznhnzbBPKPETSUSZ1954-24-97 08:51:00 Test Item Value Reference Range Interpretation Comments Hgb (test code = Hgb) 12.1 12.0-16.0 [facility] HospitalYtsujpiTYZIDXFJXO7301-39-21 08:51:00 Test Item Value Reference Range Interpretation Comments Hct (test code = Hct) 35.8 36.0-48.0 [facility] HospitalIcyczxnUOKNDVOXMW4801-08-62 08:51:00 Test Item Value Reference Range Interpretation Comments WBC (test code = WBC) 5.7 3.7-10.4 [facility] HospitalOqofsguDPQZDLRBSP8443-14-89 08:51:00 Test Item Value Reference Range Interpretation Comments RBC (test code = RBC) 4.01 4.20-5.40 [facility] HospitalLzttdreBGJXCCKKXD8948-24-25 08:51:00 Test Item Value Reference Range Interpretation Comments Segs (test code = Segs) 53.8 45.0-75.0 [facility] HospitalHwvexrfNPPSYLOLVL5951-14-83 08:51:00 Test Item Value Reference Range Interpretation Comments Monocytes # (test code 0.6 See_Comment [Aut omated message] The = Monocytes #) system which generated this result tra nsmitted reference range : <=0.8. The reference r robbie was not used to int erpret this result as normal/abnormal . [facility] HospitalKygpvobYOOFIJCYKI1551-68-36 08:51:00 Test Item Value Reference Range Interpretation Comments Basophils (test code = 0.7 See_Comment [Aut omated message] The Basophils) system which ge nerated this result tra nsmitted reference range : <=1.0. The reference r robbie was not used to int erpret this result as normal/abnormal . [facility] HospitalBzcdacgHQMRXFZVNZ7390-56-04 08:51:00 Test Item Value Reference Range Interpretation Comments Segs-Bands # (test code = Segs-Bands #) 3.1 1.5-8.1 [facility] HospitalLstujvhZQHRKUYTEQ9389-17-09 08:51:00 Test Item Value Reference Range Interpretation Comments Monocytes (test code = Monocytes) 9.7 2.0-12.0 [facility] HospitalWuwjumjWRDGMIOINF3973-78-44 08:51:00 Test Item Value Reference Range Interpretation Comments Eosinophils (test code = 3.5 See_Comment [A utomated message] The Eosinophils) system which ge nerated this result tra nsmitted reference range : <=4.0. The reference r robbie was not used to int erpret this result as normal/abnormal . [facility] HospitalWquhinaZDAGXUYPDP7050-15-98 08:51:00 Test Item Value Reference Range Interpretation Comments Lymphocytes (test code = Lymphocytes) 32.3 20.0-40.0 [facility] HospitalJejugakURHJDHHLJA4276-40-45 08:51:00 Test Item Value Reference Range Interpretation Comments Eosinophils # (test code 0.2 See_Comment [A utomated message] The = Eosinophils #) system whic h generated this result tra nsmitted reference range : <=0.5. The reference r robbie was not used to int erpret this result as normal/abnormal . [facility] HospitalWmlyycvKJXCUHOGYE6685-04-40 08:51:00 Test Item Value Reference Range Interpretation Comments Lymphocytes # (test code = Lymphocytes 1.8 1.0-5.5 #) [facility] HospitalWoihmsfWHGXJKLDFE8943-67-91 08:51:00 Test Item Value Reference Range Interpretation Comments MPV (test code = MPV) 7.6 7.4-10.4 [facility] HospitalEaqybvpXMBWHHZFWF6442-67-02 08:51:00 Test Item Value Reference Range Interpretation Comments MCH (test code = MCH) 30.0 pg 27.0-31.0 [facility] HospitalElmommxGVOAIUQBOR5231-66-02 08:51:00 Test Item Value Reference Range Interpretation Comments MCV (test code = MCV) 89.1 80.0-98.0 [facility] HospitalXswuorjRSDVBBBQQY5703-05-16 08:51:00 Test Item Value Reference Range Interpretation Comments MCHC (test code = MCHC) 33.7 32.0-36.0 [facility] HospitalCppyezoURZVPVQPAY3758-00-12 08:51:00 Test Item Value Reference Range Interpretation Comments RDW (test code = RDW) 13.8 11.5-14.5 [facility] HospitalUxyqyppKFXSWAPKGF7867-86-76 08:51:00 Test Item Value Reference Range Interpretation Comments Platelet (test code = Platelet) 266 418-450 [facility] HospitalIpexhsgFGITNBUQWR8178-82-08 08:51:00 Test Item Value Reference Range Interpretation Comments Hgb (test code = Hgb) 12.1 12.0-16.0 [facility] HospitalTlamaubAKFGWISIHC7522-71-82 08:51:00 Test Item Value Reference Range Interpretation Comments Hct (test code = Hct) 35.8 36.0-48.0 [facility] HospitalCseuelpUKPSKFSJHH5739-40-35 08:51:00 Test Item Value Reference Range Interpretation Comments WBC (test code = WBC) 5.7 3.7-10.4 [facility] HospitalDixulofKBCPEEFTYN4858-18-90 08:51:00 Test Item Value Reference Range Interpretation Comments RBC (test code = RBC) 4.01 4.20-5.40 [facility] HospitalMydxnulAXPGGYQXVV5411-28-93 08:51:00 Test Item Value Reference Range Interpretation Comments Segs (test code = Segs) 53.8 45.0-75.0 [facility] HospitalPbzpeivQSDLXFCQWG8451-13-91 08:51:00 Test Item Value Reference Range Interpretation Comments Monocytes # (test code 0.6 See_Comment [Aut omated message] The = Monocytes #) system which generated this result tra nsmitted reference range : <=0.8. The reference r robbie was not used to int erpret this result as normal/abnormal . [facility] HospitalQezlqwoCZPRVOJMDW9227-78-17 08:51:00 Test Item Value Reference Range Interpretation Comments Basophils (test code = 0.7 See_Comment [Aut omated message] The Basophils) system which ge nerated this result tra nsmitted reference range : <=1.0. The reference r robbie was not used to int erpret this result as normal/abnormal . [facility] HospitalYyimaedCCCKBHNLIY4394-60-37 08:51:00 Test Item Value Reference Range Interpretation Comments Segs-Bands # (test code = Segs-Bands #) 3.1 1.5-8.1 [facility] HospitalJekcdkwWTAJRXXULV0716-80-05 08:51:00 Test Item Value Reference Range Interpretation Comments Monocytes (test code = Monocytes) 9.7 2.0-12.0 [facility] HospitalLjjjaqaZWMYTGRKGW7977-10-32 08:51:00 Test Item Value Reference Range Interpretation Comments Eosinophils (test code = 3.5 See_Comment [A utomated message] The Eosinophils) system which ge nerated this result tra nsmitted reference range : <=4.0. The reference r robbie was not used to int erpret this result as normal/abnormal . [facility] HospitalIbfykrwMLZRDDFRHJ7183-22-33 08:51:00 Test Item Value Reference Range Interpretation Comments Lymphocytes (test code = Lymphocytes) 32.3 20.0-40.0 [facility] HospitalTtocvlpBCKIYAGQFN0010-33-33 08:51:00 Test Item Value Reference Range Interpretation Comments Eosinophils # (test code 0.2 See_Comment [A utomated message] The = Eosinophils #) system whic h generated this result tra nsmitted reference range : <=0.5. The reference r robbie was not used to int erpret this result as normal/abnormal . [facility] HospitalAedqjqoZKGMHXVNAJ9500-47-25 08:51:00 Test Item Value Reference Range Interpretation Comments Lymphocytes # (test code = Lymphocytes 1.8 1.0-5.5 #) [facility] HospitalBedrgnlVFPJDUVJFB8688-95-26 08:51:00 Test Item Value Reference Range Interpretation Comments MPV (test code = MPV) 7.6 7.4-10.4 [facility] HospitalWkrrumqSZXKCTFRHE3247-20-48 08:51:00 Test Item Value Reference Range Interpretation Comments MCH (test code = MCH) 30.0 pg 27.0-31.0 [facility] HospitalYlpkpsiQYGBVQZJLX3605-63-07 08:51:00 Test Item Value Reference Range Interpretation Comments MCV (test code = MCV) 89.1 80.0-98.0 [facility] HospitalQvizplzAJRGQEKPGF4520-23-90 08:51:00 Test Item Value Reference Range Interpretation Comments MCHC (test code = MCHC) 33.7 32.0-36.0 [facility] HospitalEsozsdzTNJEJZZYZZ0542-04-44 08:51:00 Test Item Value Reference Range Interpretation Comments RDW (test code = RDW) 13.8 11.5-14.5 [facility] HospitalMkuofycYKZVRHXBLB7922-73-12 08:51:00 Test Item Value Reference Range Interpretation Comments Platelet (test code = Platelet) 266 133-450 [facility] HospitalGjhfdctAXPVKIZQME7470-98-17 08:51:00 Test Item Value Reference Range Interpretation Comments Hgb (test code = Hgb) 12.1 12.0-16.0 [facility] HospitalRrbpettHYCGEBJXAI5018-63-54 08:51:00 Test Item Value Reference Range Interpretation Comments Hct (test code = Hct) 35.8 36.0-48.0 [facility] HospitalSjaavinXLMMXIHUTH7387-85-85 08:51:00 Test Item Value Reference Range Interpretation Comments WBC (test code = WBC) 5.7 3.7-10.4 [facility] HospitalXihdcooLWYNXWFDLB6850-93-57 08:51:00 Test Item Value Reference Range Interpretation Comments RBC (test code = RBC) 4.01 4.20-5.40 [facility] HospitalIfpqvduREJTKEBWTS8668-60-68 08:51:00 Test Item Value Reference Range Interpretation Comments Segs (test code = Segs) 53.8 45.0-75.0 [facility] HospitalJcgjjeuAFYJUAPGBJ4871-29-14 08:51:00 Test Item Value Reference Range Interpretation Comments Monocytes # (test code 0.6 See_Comment [Aut omated message] The = Monocytes #) system which generated this result tra nsmitted reference range : <=0.8. The reference r robbie was not used to int erpret this result as normal/abnormal . [facility] HospitalPuubgwmAKXJJDRRHW0925-14-61 08:51:00 Test Item Value Reference Range Interpretation Comments Basophils (test code = 0.7 See_Comment [Aut omated message] The Basophils) system which ge nerated this result tra nsmitted reference range : <=1.0. The reference r robbie was not used to int erpret this result as normal/abnormal . [facility] HospitalVslglimSSYOWMLLDT6691-57-86 08:51:00 Test Item Value Reference Range Interpretation Comments Segs-Bands # (test code = Segs-Bands #) 3.1 1.5-8.1 [facility] HospitalBfxllfeIJEFAHWZUM5724-56-03 08:51:00 Test Item Value Reference Range Interpretation Comments Monocytes (test code = Monocytes) 9.7 2.0-12.0 [facility] HospitalAmfgxgzPWFVDILCYS9302-24-49 08:51:00 Test Item Value Reference Range Interpretation Comments Eosinophils (test code = 3.5 See_Comment [A utomated message] The Eosinophils) system which ge nerated this result tra nsmitted reference range : <=4.0. The reference r robbie was not used to int erpret this result as normal/abnormal . [facility] HospitalAdhlqruHDYDPWQPTX2621-67-04 08:51:00 Test Item Value Reference Range Interpretation Comments Lymphocytes (test code = Lymphocytes) 32.3 20.0-40.0 [facility] HospitalXngskvqFAHJLXBOTK7748-04-23 08:51:00 Test Item Value Reference Range Interpretation Comments Eosinophils # (test code 0.2 See_Comment [A utomated message] The = Eosinophils #) system whic h generated this result tra nsmitted reference range : <=0.5. The reference r robbie was not used to int erpret this result as normal/abnormal . [facility] HospitalZxmrinmENJOFTYVJY5125-93-19 08:51:00 Test Item Value Reference Range Interpretation Comments Lymphocytes # (test code = Lymphocytes 1.8 1.0-5.5 #) [facility] HospitalFfpxcwoKJKOXCZKLW9060-38-17 08:51:00 Test Item Value Reference Range Interpretation Comments MPV (test code = MPV) 7.6 7.4-10.4 [facility] HospitalTtcjbysBBCOSPAEWQ9930-66-16 08:51:00 Test Item Value Reference Range Interpretation Comments MCH (test code = MCH) 30.0 pg 27.0-31.0 [facility] HospitalLmopxfkBIRSJKJLPV4933-71-48 08:51:00 Test Item Value Reference Range Interpretation Comments MCV (test code = MCV) 89.1 80.0-98.0 [facility] HospitalTylrxbdNBIZUVZTNJ2785-91-11 08:51:00 Test Item Value Reference Range Interpretation Comments MCHC (test code = MCHC) 33.7 32.0-36.0 [facility] HospitalGqwzmpaSSBRSICOPL1116-05-76 08:51:00 Test Item Value Reference Range Interpretation Comments RDW (test code = RDW) 13.8 11.5-14.5 [facility] HospitalGtmlujiLJHLLSXGTT7321-96-04 08:51:00 Test Item Value Reference Range Interpretation Comments Platelet (test code = Platelet) 266 133-450 [facility] HospitalCcrfloyQQAQQGQWSR7183-77-17 08:51:00 Test Item Value Reference Range Interpretation Comments Hgb (test code = Hgb) 12.1 12.0-16.0 [facility] HospitalUwbmuifKBBYEFLNAZ8059-80-29 08:51:00 Test Item Value Reference Range Interpretation Comments Hct (test code = Hct) 35.8 36.0-48.0 [facility] HospitalGwoviwlRAMKMTYZLL2426-26-08 08:51:00 Test Item Value Reference Range Interpretation Comments WBC (test code = WBC) 5.7 3.7-10.4 [facility] HospitalSqifavmKDGDZHCXHD4495-07-41 08:51:00 Test Item Value Reference Range Interpretation Comments RBC (test code = RBC) 4.01 4.20-5.40 [facility] HospitalGhtfgzwKZAGDMDYCO7278-82-25 08:51:00 Test Item Value Reference Range Interpretation Comments Segs (test code = Segs) 53.8 45.0-75.0 [facility] HospitalRzwakgxXCMVRXXPFU8007-48-12 08:51:00 Test Item Value Reference Range Interpretation Comments Monocytes # (test code 0.6 See_Comment [Aut omated message] The = Monocytes #) system which generated this result tra nsmitted reference range : <=0.8. The reference r robbie was not used to int erpret this result as normal/abnormal . [facility] HospitalVdopgmrHAMJQOTYLW9903-91-16 08:51:00 Test Item Value Reference Range Interpretation Comments Basophils (test code = 0.7 See_Comment [Aut omated message] The Basophils) system which ge nerated this result tra nsmitted reference range : <=1.0. The reference r robbie was not used to int erpret this result as normal/abnormal . [facility] HospitalGxvgqxeOOXRPZVTOT1983-48-97 08:51:00 Test Item Value Reference Range Interpretation Comments Segs-Bands # (test code = Segs-Bands #) 3.1 1.5-8.1 [facility] HospitalEbeaemqXFFPNSIWJO7730-05-83 08:51:00 Test Item Value Reference Range Interpretation Comments Monocytes (test code = Monocytes) 9.7 2.0-12.0 [facility] HospitalQymvpwrKAOBQGTHVD6367-90-70 08:51:00 Test Item Value Reference Range Interpretation Comments Eosinophils (test code = 3.5 See_Comment [A utomated message] The Eosinophils) system which ge nerated this result tra nsmitted reference range : <=4.0. The reference r robbie was not used to int erpret this result as normal/abnormal . [facility] HospitalJymvaieHCZIWIBSGT7961-67-62 08:51:00 Test Item Value Reference Range Interpretation Comments Lymphocytes (test code = Lymphocytes) 32.3 20.0-40.0 [facility] HospitalMbdwketQGEDVTJJHU5707-28-15 08:51:00 Test Item Value Reference Range Interpretation Comments Eosinophils # (test code 0.2 See_Comment [A utomated message] The = Eosinophils #) system whic h generated this result tra nsmitted reference range : <=0.5. The reference r robbie was not used to int erpret this result as normal/abnormal . [facility] HospitalUnesqvsOMWOQCLRCT4824-97-71 08:51:00 Test Item Value Reference Range Interpretation Comments Lymphocytes # (test code = Lymphocytes 1.8 1.0-5.5 #) [facility] HospitalNdltuawWEVUTJQXRL0158-44-53 08:51:00 Test Item Value Reference Range Interpretation Comments MPV (test code = MPV) 7.6 7.4-10.4 [facility] HospitalPsaeuuuQGKIJOJZEC5700-52-04 08:51:00 Test Item Value Reference Range Interpretation Comments MCH (test code = MCH) 30.0 pg 27.0-31.0 [facility] HospitalGagicyvWYXBETDMGM3651-91-83 08:51:00 Test Item Value Reference Range Interpretation Comments MCV (test code = MCV) 89.1 80.0-98.0 [facility] HospitalDdtsdhoESVJOMOHHB9483-10-88 08:51:00 Test Item Value Reference Range Interpretation Comments MCHC (test code = MCHC) 33.7 32.0-36.0 [facility] HospitalVxrldirQRUXNESUMV7092-83-85 08:51:00 Test Item Value Reference Range Interpretation Comments RDW (test code = RDW) 13.8 11.5-14.5 [facility] HospitalQrcqmvrTQXUPNODPI3779-26-43 08:51:00 Test Item Value Reference Range Interpretation Comments Platelet (test code = Platelet) 266 133-450 [facility] HospitalPftolwrICVKTXDPAB0659-07-01 08:51:00 Test Item Value Reference Range Interpretation Comments Hgb (test code = Hgb) 12.1 12.0-16.0 [facility] HospitalSxokiunUEMUSKWUBI6586-09-12 08:51:00 Test Item Value Reference Range Interpretation Comments Hct (test code = Hct) 35.8 36.0-48.0 [facility]vaszvxJGAMSIKMUU5358-38-10 08:51:00 Test Item Value Reference Range Interpretation Comments WBC (test code = WBC) 5.7 3.7-10.4 [facility]LhqhepmZGIPISCPJF9296-35-57 08:51:00 Test Item Value Reference Range Interpretation Comments RBC (test code = RBC) 4.01 4.20-5.40 [facility] HospitalEkrosgsUQIXWOOPVT8345-41-71 08:51:00 Test Item Value Reference Range Interpretation Comments Segs (test code = Segs) 53.8 45.0-75.0 [facility] HospitalFcujnkmDQZVBDDUUT5638-22-68 08:51:00 Test Item Value Reference Range Interpretation Comments Monocytes # (test code 0.6 See_Comment [Aut omated message] The = Monocytes #) system which generated this result tra nsmitted reference range : <=0.8. The reference r robbie was not used to int erpret this result as normal/abnormal . [facility] HospitalTdhfhuoUWUMZDPXSB5249-71-75 08:51:00 Test Item Value Reference Range Interpretation Comments Basophils (test code = 0.7 See_Comment [Aut omated message] The Basophils) system which ge nerated this result tra nsmitted reference range : <=1.0. The reference r robbie was not used to int erpret this result as normal/abnormal . [facility] HospitalZjuekgyUBYDGMLRFA7499-27-99 08:51:00 Test Item Value Reference Range Interpretation Comments Segs-Bands # (test code = Segs-Bands #) 3.1 1.5-8.1 [facility] HospitalYjgudbrBEHQZPRSMY9131-37-34 08:51:00 Test Item Value Reference Range Interpretation Comments Monocytes (test code = Monocytes) 9.7 2.0-12.0 [facility] HospitalBijrwbgUJNGRWOWHC1071-32-94 08:51:00 Test Item Value Reference Range Interpretation Comments Eosinophils (test code = 3.5 See_Comment [A utomated message] The Eosinophils) system which ge nerated this result tra nsmitted reference range : <=4.0. The reference r robbie was not used to int erpret this result as normal/abnormal . [facility] HospitalVphmyhmQEXEPMUCDW5752-11-59 08:51:00 Test Item Value Reference Range Interpretation Comments Lymphocytes (test code = Lymphocytes) 32.3 20.0-40.0 [facility] HospitalBegcyqjWKYCJKISIX5528-75-67 08:51:00 Test Item Value Reference Range Interpretation Comments Eosinophils # (test code 0.2 See_Comment [A utomated message] The = Eosinophils #) system whic h generated this result tra nsmitted reference range : <=0.5. The reference r robbie was not used to int erpret this result as normal/abnormal . [facility] HospitalXmxnwndSMSDMCVHAG0954-68-58 08:51:00 Test Item Value Reference Range Interpretation Comments Lymphocytes # (test code = Lymphocytes 1.8 1.0-5.5 #) [facility] HospitalYixtaxqXBVNTHKROT0945-95-97 08:51:00 Test Item Value Reference Range Interpretation Comments MPV (test code = MPV) 7.6 7.4-10.4 [facility] HospitalZmihlnwAVYQMQABHK5693-32-57 08:51:00 Test Item Value Reference Range Interpretation Comments MCH (test code = MCH) 30.0 pg 27.0-31.0 [facility] HospitalTfixxdgKVDTQJDGLA2939-34-16 08:51:00 Test Item Value Reference Range Interpretation Comments MCV (test code = MCV) 89.1 80.0-98.0 [facility] HospitalOratgotEYMVCTZVFU9325-59-49 08:51:00 Test Item Value Reference Range Interpretation Comments MCHC (test code = MCHC) 33.7 32.0-36.0 [facility] HospitalAcsobbfUZXWUFPSBL5408-45-57 08:51:00 Test Item Value Reference Range Interpretation Comments RDW (test code = RDW) 13.8 11.5-14.5 [facility] HospitalLuzicktXPUALUEQUW4711-72-95 08:51:00 Test Item Value Reference Range Interpretation Comments Platelet (test code = Platelet) 266 133-450 [facility] HospitalIlbvreqADTASPHGKU2363-22-10 08:51:00 Test Item Value Reference Range Interpretation Comments Hgb (test code = Hgb) 12.1 12.0-16.0 [facility] HospitalReigpxnQQZIRRUBQX5227-08-76 08:51:00 Test Item Value Reference Range Interpretation Comments Hct (test code = Hct) 35.8 36.0-48.0 [facility] HospitalAtxndvaXHNQREIWSQ5029-78-50 08:51:00 Test Item Value Reference Range Interpretation Comments WBC (test code = WBC) 5.7 3.7-10.4 [facility] HospitalWhoatzuYGCMETJRTZ2265-64-10 08:51:00 Test Item Value Reference Range Interpretation Comments RBC (test code = RBC) 4.01 4.20-5.40 [facility] HospitalNgtsnnnWGUBAIGTNE1609-64-32 08:51:00 Test Item Value Reference Range Interpretation Comments Segs (test code = Segs) 53.8 45.0-75.0 [facility] HospitalJhgfhpiQGBPHHBWWP7421-65-51 08:51:00 Test Item Value Reference Range Interpretation Comments Monocytes # (test code 0.6 See_Comment [Aut omated message] The = Monocytes #) system which generated this result tra nsmitted reference range : <=0.8. The reference r robbie was not used to int erpret this result as normal/abnormal . [facility] HospitalZxipzfiOOUKMCKKXI7148-30-25 08:51:00 Test Item Value Reference Range Interpretation Comments Basophils (test code = 0.7 See_Comment [Aut omated message] The Basophils) system which ge nerated this result tra nsmitted reference range : <=1.0. The reference r robbie was not used to int erpret this result as normal/abnormal . [facility] HospitalHislmgpUILIQJDRDC8220-09-63 08:51:00 Test Item Value Reference Range Interpretation Comments Segs-Bands # (test code = Segs-Bands #) 3.1 1.5-8.1 [place] [address]-08-30 08:51:00 Test Item Value Reference Range Interpretation Comments Monocytes (test code = Monocytes) 9.7 2.0-12.0 [facility] HospitalKwkktugTWNFEBZRGA3536-34-95 08:51:00 Test Item Value Reference Range Interpretation Comments Eosinophils (test code = 3.5 See_Comment [A utomated message] The Eosinophils) system which ge nerated this result tra nsmitted reference range : <=4.0. The reference r robbie was not used to int erpret this result as normal/abnormal . [facility] HospitalKrqrfrnTDBBUVJNMF7921-86-07 08:51:00 Test Item Value Reference Range Interpretation Comments Lymphocytes (test code = Lymphocytes) 32.3 20.0-40.0 [facility] HospitalAginpzvOBRNZNREYW3233-24-21 08:51:00 Test Item Value Reference Range Interpretation Comments Eosinophils # (test code 0.2 See_Comment [A utomated message] The = Eosinophils #) system whic h generated this result tra nsmitted reference range : <=0.5. The reference r robbie was not used to int erpret this result as normal/abnormal . [facility] HospitalNnxhnbiUGGBQYGUBC9939-99-13 08:51:00 Test Item Value Reference Range Interpretation Comments Lymphocytes # (test code = Lymphocytes 1.8 1.0-5.5 #) [facility] HospitalXxezwrcFTWWGDONZK9047-92-71 08:51:00 Test Item Value Reference Range Interpretation Comments MPV (test code = MPV) 7.6 7.4-10.4 [facility] HospitalRhdwtooHDFOFKZDEX0819-60-30 08:51:00 Test Item Value Reference Range Interpretation Comments MCH (test code = MCH) 30.0 pg 27.0-31.0 [facility] HospitalDmrqltzCEOLPFHGAF7326-46-82 08:51:00 Test Item Value Reference Range Interpretation Comments MCV (test code = MCV) 89.1 80.0-98.0 [facility] HospitalPmeouzcJLUGVMGITK0814-89-30 08:51:00 Test Item Value Reference Range Interpretation Comments MCHC (test code = MCHC) 33.7 32.0-36.0 [facility] HospitalEotralhUVBUDPMDDV3222-87-79 08:51:00 Test Item Value Reference Range Interpretation Comments RDW (test code = RDW) 13.8 11.5-14.5 [facility] HospitalDvnbttlISWSIKVBTP6987-55-69 08:51:00 Test Item Value Reference Range Interpretation Comments Platelet (test code = Platelet) 266 133-450 [facility] HospitalOrqfurxKHHRKMCNZL0652-76-81 08:51:00 Test Item Value Reference Range Interpretation Comments Hgb (test code = Hgb) 12.1 12.0-16.0 [facility] HospitalFfptojlCZOGFTTYGK4706-81-23 08:51:00 Test Item Value Reference Range Interpretation Comments Hct (test code = Hct) 35.8 36.0-48.0 [facility] HospitalKujpyzqHLANEXJXWK5599-15-94 08:51:00 Test Item Value Reference Range Interpretation Comments WBC (test code = WBC) 5.7 3.7-10.4 [facility] HospitalHcfujlqJYLWNOCEZR5500-32-18 08:51:00 Test Item Value Reference Range Interpretation Comments RBC (test code = RBC) 4.01 4.20-5.40 [facility] HospitalOqrfybjPZOORTFIHD7369-95-48 08:51:00 Test Item Value Reference Range Interpretation Comments Segs (test code = Segs) 53.8 45.0-75.0 [facility] HospitalLorifpdKYABGTQVIE7120-53-28 08:51:00 Test Item Value Reference Range Interpretation Comments Monocytes # (test code 0.6 See_Comment [Aut omated message] The = Monocytes #) system which generated this result tra nsmitted reference range : <=0.8. The reference r robbie was not used to int erpret this result as normal/abnormal . [facility] HospitalUbawhkhVWKMRKYSAQ7759-34-08 08:51:00 Test Item Value Reference Range Interpretation Comments Basophils (test code = 0.7 See_Comment [Aut omated message] The Basophils) system which ge nerated this result tra nsmitted reference range : <=1.0. The reference r robbie was not used to int erpret this result as normal/abnormal . [facility] HospitalJvzcfwdZBXDUFNTIZ1789-90-74 08:51:00 Test Item Value Reference Range Interpretation Comments Segs-Bands # (test code = Segs-Bands #) 3.1 1.5-8.1 [facility] HospitalKnrpxelKAKXCIYTYI3711-03-69 08:51:00 Test Item Value Reference Range Interpretation Comments Monocytes (test code = Monocytes) 9.7 2.0-12.0 [facility] HospitalMkqrmwaXEAKIHWJIY0541-40-01 08:51:00 Test Item Value Reference Range Interpretation Comments Eosinophils (test code = 3.5 See_Comment [A utomated message] The Eosinophils) system which ge nerated this result tra nsmitted reference range : <=4.0. The reference r robbie was not used to int erpret this result as normal/abnormal . [facility] HospitalRddgsqsKJUXGNDMLL9639-59-81 08:51:00 Test Item Value Reference Range Interpretation Comments Lymphocytes (test code = Lymphocytes) 32.3 20.0-40.0 [facility] HospitalYfhzzomFJUZXTFLBW1934-59-77 08:51:00 Test Item Value Reference Range Interpretation Comments Eosinophils # (test code 0.2 See_Comment [A utomated message] The = Eosinophils #) system whic h generated this result tra nsmitted reference range : <=0.5. The reference r robbie was not used to int erpret this result as normal/abnormal . [facility] HospitalQtpmywgAAUCFQEEIL4694-39-66 08:51:00 Test Item Value Reference Range Interpretation Comments Lymphocytes # (test code = Lymphocytes 1.8 1.0-5.5 #) [facility] HospitalVrwebleCPKOOIUTGN4277-73-79 08:51:00 Test Item Value Reference Range Interpretation Comments MPV (test code = MPV) 7.6 7.4-10.4 [facility] HospitalOfswgrjBVFTDLANMI9982-44-88 08:51:00 Test Item Value Reference Range Interpretation Comments MCH (test code = MCH) 30.0 pg 27.0-31.0 [facility] HospitalCrjgdfkOWAMHQFNFT8841-70-98 08:51:00 Test Item Value Reference Range Interpretation Comments MCV (test code = MCV) 89.1 80.0-98.0 [facility] HospitalZbdpjtkABEGULKVOT9230-26-76 08:51:00 Test Item Value Reference Range Interpretation Comments MCHC (test code = MCHC) 33.7 32.0-36.0 [facility] HospitalDwxeiqcOINAYHLXVT7943-22-66 08:51:00 Test Item Value Reference Range Interpretation Comments RDW (test code = RDW) 13.8 11.5-14.5 [facility] HospitalIyrbwtbMKYLBUBWPI8293-64-00 08:51:00 Test Item Value Reference Range Interpretation Comments Platelet (test code = Platelet) 266 133-450 [facility] HospitalSabzgzrXPUQVXJZNH7034-08-99 08:51:00 Test Item Value Reference Range Interpretation Comments Hgb (test code = Hgb) 12.1 12.0-16.0 [facility] HospitalHrgkbldNTQJPLAIMN8518-25-25 08:51:00 Test Item Value Reference Range Interpretation Comments Hct (test code = Hct) 35.8 36.0-48.0 [facility] HospitalNuzesgaXFAXWRBVOF8334-09-25 08:51:00 Test Item Value Reference Range Interpretation Comments WBC (test code = WBC) 5.7 3.7-10.4 [facility] HospitalRdneeywHAMFYBRZCI4374-49-77 08:51:00 Test Item Value Reference Range Interpretation Comments RBC (test code = RBC) 4.01 4.20-5.40 [facility] HospitalZdbtngaVOOBJJRGPN9545-56-18 08:51:00 Test Item Value Reference Range Interpretation Comments Segs (test code = Segs) 53.8 45.0-75.0 [facility] HospitalPvcyiafWGSSTLKHJE9496-51-12 08:51:00 Test Item Value Reference Range Interpretation Comments Monocytes # (test code 0.6 See_Comment [Aut omated message] The = Monocytes #) system which generated this result tra nsmitted reference range : <=0.8. The reference r robbie was not used to int erpret this result as normal/abnormal . [facility]XgwklqgXJCVFPZVHZ1557-25-54 08:51:00 Test Item Value Reference Range Interpretation Comments Basophils (test code = 0.7 See_Comment [Aut omated message] The Basophils) system which ge nerated this result tra nsmitted reference range : <=1.0. The reference r robbie was not used to int erpret this result as normal/abnormal . [facility] HospitalNzbpiyrEDLNNXMZDC7957-20-98 08:51:00 Test Item Value Reference Range Interpretation Comments Segs-Bands # (test code = Segs-Bands #) 3.1 1.5-8.1 [facility] HospitalKgsayooEPQBHGKLWT2084-47-97 08:51:00 Test Item Value Reference Range Interpretation Comments Monocytes (test code = Monocytes) 9.7 2.0-12.0 [facility] HospitalQbeheliDPDWYNVTEK7651-70-27 08:51:00 Test Item Value Reference Range Interpretation Comments Eosinophils (test code = 3.5 See_Comment [A utomated message] The Eosinophils) system which ge nerated this result tra nsmitted reference range : <=4.0. The reference r robbie was not used to int erpret this result as normal/abnormal . [facility] HospitalSuvytfsQYWXALVRKX7016-70-02 08:51:00 Test Item Value Reference Range Interpretation Comments Lymphocytes (test code = Lymphocytes) 32.3 20.0-40.0 [facility] HospitalCrbscnaKGZIXLTPDG4413-19-00 08:51:00 Test Item Value Reference Range Interpretation Comments Eosinophils # (test code 0.2 See_Comment [A utomated message] The = Eosinophils #) system whic h generated this result tra nsmitted reference range : <=0.5. The reference r robbie was not used to int erpret this result as normal/abnormal . [facility] HospitalBpmbxwzTOOARMMENX6522-84-00 08:51:00 Test Item Value Reference Range Interpretation Comments Lymphocytes # (test code = Lymphocytes 1.8 1.0-5.5 #) [facility] HospitalExkefqrAQKJXYIISX0797-57-49 08:51:00 Test Item Value Reference Range Interpretation Comments MPV (test code = MPV) 7.6 7.4-10.4 [facility] HospitalOuvdkmeQFJIHFQSIL9806-02-28 08:51:00 Test Item Value Reference Range Interpretation Comments MCH (test code = MCH) 30.0 pg 27.0-31.0 [facility] HospitalCpaxwdiBSATEFDFJT3866-36-75 08:51:00 Test Item Value Reference Range Interpretation Comments MCV (test code = MCV) 89.1 80.0-98.0 [facility] HospitalXytgqviOSFHEDVDNN7096-51-39 08:51:00 Test Item Value Reference Range Interpretation Comments MCHC (test code = MCHC) 33.7 32.0-36.0 [facility] HospitalHmoetafHFTYPUFFSG2798-09-82 08:51:00 Test Item Value Reference Range Interpretation Comments RDW (test code = RDW) 13.8 11.5-14.5 [facility] HospitalXwjjfmiQOQDZUTPLA0923-67-76 08:51:00 Test Item Value Reference Range Interpretation Comments Platelet (test code = Platelet) 266 133-450 [facility] HospitalBxqnhgbBYJBAGQCXJ2190-75-40 08:51:00 Test Item Value Reference Range Interpretation Comments Hgb (test code = Hgb) 12.1 12.0-16.0 [facility] HospitalJsscrjtZAVCZSIRVG9542-83-44 08:51:00 Test Item Value Reference Range Interpretation Comments Hct (test code = Hct) 35.8 36.0-48.0 [facility] HospitalYfoqbybVRRCVFQBOV8525-99-32 08:51:00 Test Item Value Reference Range Interpretation Comments WBC (test code = WBC) 5.7 3.7-10.4 [facility] HospitalJnuyiygREWLGIRXXP1440-05-50 08:51:00 Test Item Value Reference Range Interpretation Comments RBC (test code = RBC) 4.01 4.20-5.40 [facility] HospitalFhmpwbvZKBMINMJGC5057-40-08 08:51:00 Test Item Value Reference Range Interpretation Comments Segs (test code = Segs) 53.8 45.0-75.0 [facility] HospitalFpzenqiAJINKSLZXK5918-44-95 08:51:00 Test Item Value Reference Range Interpretation Comments Monocytes # (test code 0.6 See_Comment [Aut omated message] The = Monocytes #) system which generated this result tra nsmitted reference range : <=0.8. The reference r robbie was not used to int erpret this result as normal/abnormal . [facility] HospitalBipomiySPAIVTLSZC5196-95-53 08:51:00 Test Item Value Reference Range Interpretation Comments Basophils (test code = 0.7 See_Comment [Aut omated message] The Basophils) system which ge nerated this result tra nsmitted reference range : <=1.0. The reference r robbie was not used to int erpret this result as normal/abnormal . [facility] HospitalWadvovtRWWIYKNLRR7846-19-11 08:51:00 Test Item Value Reference Range Interpretation Comments Segs-Bands # (test code = Segs-Bands #) 3.1 1.5-8.1 [facility] HospitalVqblbexDWMNRPCDYG3613-24-55 08:51:00 Test Item Value Reference Range Interpretation Comments Monocytes (test code = Monocytes) 9.7 2.0-12.0 [facility] HospitalTxnmfljDHJZZQTYFS4023-05-30 08:51:00 Test Item Value Reference Range Interpretation Comments Eosinophils (test code = 3.5 See_Comment [A utomated message] The Eosinophils) system which ge nerated this result tra nsmitted reference range : <=4.0. The reference r robbie was not used to int erpret this result as normal/abnormal . [facility] HospitalRphprxgKTCKEMMSIO8603-96-67 08:51:00 Test Item Value Reference Range Interpretation Comments Lymphocytes (test code = Lymphocytes) 32.3 20.0-40.0 [facility] HospitalLxoxfvbYISACVEKOR8543-79-89 08:51:00 Test Item Value Reference Range Interpretation Comments Eosinophils # (test code 0.2 See_Comment [A utomated message] The = Eosinophils #) system [employer] h generated this result tra nsmitted reference range : <=0.5. The reference r robbie was not used to int erpret this result as normal/abnormal . [facility] HospitalGvzxhgjDMNRAEJABL6079-50-00 08:51:00 Test Item Value Reference Range Interpretation Comments Lymphocytes # (test code = Lymphocytes 1.8 1.0-5.5 #) [facility] HospitalJehaygoULGBQFHIGU9277-44-72 08:51:00 Test Item Value Reference Range Interpretation Comments MPV (test code = MPV) 7.6 7.4-10.4 [facility] HospitalJtxmagpSWOAINCLCE0909-59-52 08:51:00 Test Item Value Reference Range Interpretation Comments MCH (test code = MCH) 30.0 pg 27.0-31.0 [facility] HospitalBcwtkenCLXAFWOJAW1354-71-19 08:51:00 Test Item Value Reference Range Interpretation Comments MCV (test code = MCV) 89.1 80.0-98.0 [facility] HospitalAqcketpCZAQRDOHGV9365-17-98 08:51:00 Test Item Value Reference Range Interpretation Comments MCHC (test code = MCHC) 33.7 32.0-36.0 [facility] HospitalOyzphjnPYZONJVQAV1761-98-48 08:51:00 Test Item Value Reference Range Interpretation Comments RDW (test code = RDW) 13.8 11.5-14.5 [facility] HospitalVemmdrxYBSNNFLCCQ2098-74-67 08:51:00 Test Item Value Reference Range Interpretation Comments Platelet (test code = Platelet) 266 133-450 [facility] HospitalZiszucwYVDLGYCMWM6826-14-02 08:51:00 Test Item Value Reference Range Interpretation Comments Hgb (test code = Hgb) 12.1 12.0-16.0 [facility] HospitalIesfzixLIRYVSBDSL4294-75-94 08:51:00 Test Item Value Reference Range Interpretation Comments Hct (test code = Hct) 35.8 36.0-48.0 [facility] HospitalWwzolosRQOTIFGSSL9136-87-46 08:51:00 Test Item Value Reference Range Interpretation Comments WBC (test code = WBC) 5.7 3.7-10.4 [facility] HospitalWcjvbntRGJDZBKRTX9521-51-17 08:51:00 Test Item Value Reference Range Interpretation Comments RBC (test code = RBC) 4.01 4.20-5.40 [facility]2016-08-29 06:54:00 Test Item Value Reference Range Interpretation Comments Bili Total (test code = Bili Total) 0.5 0.2-1.3 [facility]2016-08-29 06:54:00 Test Item Value Reference Range Interpretation Comments Alk Phos (test code = Alk Phos) 66 39-136 [facility]2016-08-29 06:54:00 Test Item Value Reference Range Interpretation Comments AST (test code = AST) 23 See_Comment [Auto mated message] The system which ge nerated this result transmit randolph reference range : <=37. The reference range was not used to interpr et this result as juan m l/abnormal. [facility]2016-08-29 06:54:00 Test Item Value Reference Range Interpretation Comments Albumin Lvl (test code = Albumin Lvl) 3.2 3.5-5.0 [facility]2016-08-29 06:54:00 Test Item Value Reference Range Interpretation Comments ALT (test code = ALT) 29 See_Comment [Auto mated message] The system which ge nerated this result transmit randolph reference range : <=65. The reference range was not used to interpr et this result as juan m l/abnormal. [facility]2016-08-29 06:54:00 Test Item Value Reference Range Interpretation Comments Total Protein (test code = Total 7.4 6.4-8.4 Protein) [facility]2016-08-29 06:54:00 Test Item Value Reference Range Interpretation Comments B/C Ratio (test code = B/C Ratio) 19 6-25 [facility]2016-08-29 06:54:00 Test Item Value Reference Range Interpretation Comments A/G Ratio (test code = A/G Ratio) 0.8 0.7-1.6 [facility]2016-08-29 06:54:00 Test Item Value Reference Range Interpretation Comments Globulin (test code = Globulin) 4.2 2.7-4.2 [facility]2016-08-29 06:54:00 Test Item Value Reference Range Interpretation Comments Bili Total (test code = Bili Total) 0.5 0.2-1.3 [facility] EHGWD8706-91-26 06:54:00 Test Item Value Reference Range Interpretation Comments Alk Phos (test code = Alk Phos) 66 39-136 [facility]BioDigital[facility] BL[facility] RIDGERPUBX6081-73-76 06:54:00 Test Item Value Reference Range Interpretation Comments AST (test code = AST) 23 See_Comment [Auto mated message] The system which ge nerated this result transmit randolph reference range : <=37. The reference range was not used to interpr et this result as juan m l/abnormal. [facility]BioDigitalUNC [facility] BLUE RIDGEEDYRH7560-39-18 06:54:00 Test Item Value Reference Range Interpretation Comments Albumin Lvl (test code = Albumin Lvl) 3.2 3.5-5.0 [facility]2016-08-29 06:54:00 Test Item Value Reference Range Interpretation Comments ALT (test code = ALT) 29 See_Comment [Auto mated message] The system which ge nerated this result transmit randolph reference range : <=65. The reference range was not used to interpr et this result as juan m l/abnormal. [facility]Smart[facility] MVUXP3327-88-57 06:54:00 Test Item Value Reference Range Interpretation Comments Total Protein (test code = Total 7.4 6.4-8.4 Protein) [facility]2016-08-29 06:54:00 Test Item Value Reference Range Interpretation Comments B/C Ratio (test code = B/C Ratio) 19 6-25 [facility]BioDigitalUNC [facility]ALTH BLUE RIDGEUIDXE9649-05-34 06:54:00 Test Item Value Reference Range Interpretation Comments A/G Ratio (test code = A/G Ratio) 0.8 0.7-1.6 [facility]BioDigitalUNC HEALTH BLUE RIDGEAFGJJ0539-34-28 06:54:00 Test Item Value Reference Range Interpretation Comments Globulin (test code = Globulin) 4.2 2.7-4.2 [facility]Digital[facility] [id number] 06:54:00 Test Item Value Reference Range Interpretation Comments Bili Total (test code = Bili Total) 0.5 0.2-1.3 [facility]BioDigitalUNC [facility] BLUE [id number] 06:54:00 Test Item Value Reference Range Interpretation Comments Alk Phos (test code = Alk Phos) 66 39-136 [facility] [id number] 06:54:00 Test Item Value Reference Range Interpretation Comments AST (test code = AST) 23 See_Comment [Auto mated message] The system which ge nerated this result transmit randolph reference range : <=37. The reference range was not used to interpr et this result as juan m l/abnormal. [facility]2016-08-29 06:54:00 Test Item Value Reference Range Interpretation Comments Albumin Lvl (test code = Albumin Lvl) 3.2 3.5-5.0 [facility]2016-08-29 06:54:00 Test Item Value Reference Range Interpretation Comments ALT (test code = ALT) 29 See_Comment [Auto mated message] The system which ge nerated this result transmit randolph reference range : <=65. The reference range was not used to interpr et this result as juan m l/abnormal. [facility]2016-08-29 06:54:00 Test Item Value Reference Range Interpretation Comments Total Protein (test code = Total 7.4 6.4-8.4 Protein) [facility]2016-08-29 06:54:00 Test Item Value Reference Range Interpretation Comments B/C Ratio (test code = B/C Ratio) 19 6-25 [facility]2016-08-29 06:54:00 Test Item Value Reference Range Interpretation Comments A/G Ratio (test code = A/G Ratio) 0.8 0.7-1.6 [place] [id number] 06:54:00 Test Item Value Reference Range Interpretation Comments Globulin (test code = Globulin) 4.2 2.7-4.2 [facility]2016-08-29 06:54:00 Test Item Value Reference Range Interpretation Comments Bili Total (test code = Bili Total) 0.5 0.2-1.3 [facility]2016-08-29 06:54:00 Test Item Value Reference Range Interpretation Comments Alk Phos (test code = Alk Phos) 66 39-136 [facility]2016-08-29 06:54:00 Test Item Value Reference Range Interpretation Comments AST (test code = AST) 23 See_Comment [Auto mated message] The system which ge nerated this result transmit randolph reference range : <=37. The reference range was not used to interpr et this result as juan m l/abnormal. [facility]2016-08-29 06:54:00 Test Item Value Reference Range Interpretation Comments Albumin Lvl (test code = Albumin Lvl) 3.2 3.5-5.0 [facility]2016-08-29 06:54:00 Test Item Value Reference Range Interpretation Comments ALT (test code = ALT) 29 See_Comment [Auto mated message] The system which ge nerated this result transmit randolph reference range : <=65. The reference range was not used to interpr et this result as juan m l/abnormal. [facility]2016-08-29 06:54:00 Test Item Value Reference Range Interpretation Comments Total Protein (test code = Total 7.4 6.4-8.4 Protein) [facility]2016-08-29 06:54:00 Test Item Value Reference Range Interpretation Comments B/C Ratio (test code = B/C Ratio) 19 6-25 [facility]2016-08-29 06:54:00 Test Item Value Reference Range Interpretation Comments A/G Ratio (test code = A/G Ratio) 0.8 0.7-1.6 [facility]2016-08-29 06:54:00 Test Item Value Reference Range Interpretation Comments Globulin (test code = Globulin) 4.2 2.7-4.2 [facility]2016-08-29 06:54:00 Test Item Value Reference Range Interpretation Comments Bili Total (test code = Bili Total) 0.5 0.2-1.3 [facility]2016-08-29 06:54:00 Test Item Value Reference Range Interpretation Comments Alk Phos (test code = Alk Phos) 66 39-136 [facility]2016-08-29 06:54:00 Test Item Value Reference Range Interpretation Comments AST (test code = AST) 23 See_Comment [Auto mated message] The system which ge nerated this result transmit randolph reference range : <=37. The reference range was not used to interpr et this result as juan m l/abnormal. [facility] [id number] 06:54:00 Test Item Value Reference Range Interpretation Comments Albumin Lvl (test code = Albumin Lvl) 3.2 3.5-5.0 [facility] [id number] 06:54:00 Test Item Value Reference Range Interpretation Comments ALT (test code = ALT) 29 See_Comment [Auto mated message] The system which ge nerated this result transmit randolph reference range : <=65. The reference range was not used to interpr et this result as juan m l/abnormal. [facility]2016-08-29 06:54:00 Test Item Value Reference Range Interpretation Comments Total Protein (test code = Total 7.4 6.4-8.4 Protein) [facility]2016-08-29 06:54:00 Test Item Value Reference Range Interpretation Comments B/C Ratio (test code = B/C Ratio) 19 6-25 [facility]2016-08-29 06:54:00 Test Item Value Reference Range Interpretation Comments A/G Ratio (test code = A/G Ratio) 0.8 0.7-1.6 [facility]2016-08-29 06:54:00 Test Item Value Reference Range Interpretation Comments Globulin (test code = Globulin) 4.2 2.7-4.2 [facility]2016-08-29 06:54:00 Test Item Value Reference Range Interpretation Comments Bili Total (test code = Bili Total) 0.5 0.2-1.3 [facility]2016-08-29 06:54:00 Test Item Value Reference Range Interpretation Comments Alk Phos (test code = Alk Phos) 66 39-136 [facility]2016-08-29 06:54:00 Test Item Value Reference Range Interpretation Comments AST (test code = AST) 23 See_Comment [Auto mated message] The system which ge nerated this result transmit randolph reference range : <=37. The reference range was not used to interpr et this result as juan m l/abnormal. [facility]2016-08-29 06:54:00 Test Item Value Reference Range Interpretation Comments Albumin Lvl (test code = Albumin Lvl) 3.2 3.5-5.0 [facility]2016-08-29 06:54:00 Test Item Value Reference Range Interpretation Comments ALT (test code = ALT) 29 See_Comment [Auto mated message] The system which ge nerated this result transmit randolph reference range : <=65. The reference range was not used to interpr et this result as juan m l/abnormal. [facility]2016-08-29 06:54:00 Test Item Value Reference Range Interpretation Comments Total Protein (test code = Total 7.4 6.4-8.4 Protein) [facility]2016-08-29 06:54:00 Test Item Value Reference Range Interpretation Comments B/C Ratio (test code = B/C Ratio) 19 6-25 [facility]2016-08-29 06:54:00 Test Item Value Reference Range Interpretation Comments A/G Ratio (test code = A/G Ratio) 0.8 0.7-1.6 [facility]2016-08-29 06:54:00 Test Item Value Reference Range Interpretation Comments Globulin (test code = Globulin) 4.2 2.7-4.2 [facility]2016-08-29 06:54:00 Test Item Value Reference Range Interpretation Comments Bili Total (test code = Bili Total) 0.5 0.2-1.3 [facility]2016-08-29 06:54:00 Test Item Value Reference Range Interpretation Comments Alk Phos (test code = Alk Phos) 66 39-136 [facility]2016-08-29 06:54:00 Test Item Value Reference Range Interpretation Comments AST (test code = AST) 23 See_Comment [Auto mated message] The system which ge nerated this result transmit randolph reference range : <=37. The reference range was not used to interpr et this result as juan m l/abnormal. [facility]2016-08-29 06:54:00 Test Item Value Reference Range Interpretation Comments Albumin Lvl (test code = Albumin Lvl) 3.2 3.5-5.0 [facility]2016-08-29 06:54:00 Test Item Value Reference Range Interpretation Comments ALT (test code = ALT) 29 See_Comment [Auto mated message] The system which ge nerated this result transmit randolph reference range : <=65. The reference range was not used to interpr et this result as juan m l/abnormal. [facility]2016-08-29 06:54:00 Test Item Value Reference Range Interpretation Comments Total Protein (test code = Total 7.4 6.4-8.4 Protein) [place] [id number] 06:54:00 Test Item Value Reference Range Interpretation Comments B/C Ratio (test code = B/C Ratio) 19 02-16 [facility]BioDigitalUNC [facility] BLUE [id number] 06:54:00 Test Item Value Reference Range Interpretation Comments A/G Ratio (test code = A/G Ratio) 0.8 0.7-1.6 [facility]2016-08-29 06:54:00 Test Item Value Reference Range Interpretation Comments Globulin (test code = Globulin) 4.2 2.7-4.2 [facility]2016-08-29 06:54:00 Test Item Value Reference Range Interpretation Comments Bili Total (test code = Bili Total) 0.5 0.2-1.3 [facility]2016-08-29 06:54:00 Test Item Value Reference Range Interpretation Comments Alk Phos (test code = Alk Phos) 66 39-136 [facility]2016-08-29 06:54:00 Test Item Value Reference Range Interpretation Comments AST (test code = AST) 23 See_Comment [Auto mated message] The system which ge nerated this result transmit randolph reference range : <=37. The reference range was not used to interpr et this result as juan m l/abnormal. [facility] [id number] 06:54:00 Test Item Value Reference Range Interpretation Comments Albumin Lvl (test code = Albumin Lvl) 3.2 3.5-5.0 [facility]2016-08-29 06:54:00 Test Item Value Reference Range Interpretation Comments ALT (test code = ALT) 29 See_Comment [Auto mated message] The system which ge nerated this result transmit randolph reference range : <=65. The reference range was not used to interpr et this result as juan m l/abnormal. [facility] [id number] 06:54:00 Test Item Value Reference Range Interpretation Comments Total Protein (test code = Total 7.4 6.4-8.4 Protein) [facility]2016-08-29 06:54:00 Test Item Value Reference Range Interpretation Comments B/C Ratio (test code = B/C Ratio) 02-16 [facility] [id number] 06:54:00 Test Item Value Reference Range Interpretation Comments A/G Ratio (test code = A/G Ratio) 0.8 0.7-1.6 [facility]2016-08-29 06:54:00 Test Item Value Reference Range Interpretation Comments Globulin (test code = Globulin) 4.2 2.7-4.2 [facility]2016-08-29 06:54:00 Test Item Value Reference Range Interpretation Comments Bili Total (test code = Bili Total) 0.5 0.2-1.3 [facility]2016-08-29 06:54:00 Test Item Value Reference Range Interpretation Comments Alk Phos (test code = Alk Phos) 66 39-136 [facility]2016-08-29 06:54:00 Test Item Value Reference Range Interpretation Comments AST (test code = AST) 23 See_Comment [Auto mated message] The system which ge nerated this result transmit randolph reference range : <=37. The reference range was not used to interpr et this result as juan m l/abnormal. [facility]2016-08-29 06:54:00 Test Item Value Reference Range Interpretation Comments Albumin Lvl (test code = Albumin Lvl) 3.2 3.5-5.0 [facility]2016-08-29 06:54:00 Test Item Value Reference Range Interpretation Comments ALT (test code = ALT) 29 See_Comment [Auto mated message] The system which ge nerated this result transmit randolph reference range : <=65. The reference range was not used to interpr et this result as juan m l/abnormal. [facility] [id number] 06:54:00 Test Item Value Reference Range Interpretation Comments Total Protein (test code = Total 7.4 6.4-8.4 Protein) [facility]2016-08-29 06:54:00 Test Item Value Reference Range Interpretation Comments B/C Ratio (test code = B/C Ratio) 19 6-25 [facility]2016-08-29 06:54:00 Test Item Value Reference Range Interpretation Comments A/G Ratio (test code = A/G Ratio) 0.8 0.7-1.6 [facility]2016-08-29 06:54:00 Test Item Value Reference Range Interpretation Comments Globulin (test code = Globulin) 4.2 2.7-4.2 [facility]2016-08-29 06:54:00 Test Item Value Reference Range Interpretation Comments Bili Total (test code = Bili Total) 0.5 0.2-1.3 [facility]2016-08-29 06:54:00 Test Item Value Reference Range Interpretation Comments Alk Phos (test code = Alk Phos) 66 39-136 [facility]2016-08-29 06:54:00 Test Item Value Reference Range Interpretation Comments AST (test code = AST) 23 See_Comment [Auto mated message] The system which ge nerated this result transmit randolph reference range : <=37. The reference range was not used to interpr et this result as juan m l/abnormal. [facility]2016-08-29 06:54:00 Test Item Value Reference Range Interpretation Comments Albumin Lvl (test code = Albumin Lvl) 3.2 3.5-5.0 [facility]2016-08-29 06:54:00 Test Item Value Reference Range Interpretation Comments ALT (test code = ALT) 29 See_Comment [Auto mated message] The system which ge nerated this result transmit randolph reference range : <=65. The reference range was not used to interpr et this result as juan m l/abnormal. [facility]2016-08-29 06:54:00 Test Item Value Reference Range Interpretation Comments Total Protein (test code = Total 7.4 6.4-8.4 Protein) [facility]2016-08-29 06:54:00 Test Item Value Reference Range Interpretation Comments B/C Ratio (test code = B/C Ratio) 19 6-25 [facility]2016-08-29 06:54:00 Test Item Value Reference Range Interpretation Comments A/G Ratio (test code = A/G Ratio) 0.8 0.7-1.6 [facility]2016-08-29 06:54:00 Test Item Value Reference Range Interpretation Comments Globulin (test code = Globulin) 4.2 2.7-4.2 [facility]2016-08-29 06:54:00 Test Item Value Reference Range Interpretation Comments Bili Total (test code = Bili Total) 0.5 0.2-1.3 [place] [id number] 06:54:00 Test Item Value Reference Range Interpretation Comments Alk Phos (test code = Alk Phos) 66 39-136 [facility]BioDigitalUNC [facility] BLUE [id number] 06:54:00 Test Item Value Reference Range Interpretation Comments AST (test code = AST) 23 See_Comment [Auto mated message] The system which ge nerated this result transmit randolph reference range : <=37. The reference range was not used to interpr et this result as juan m l/abnormal. [facility]BioDigitalUNC [facility] BLUE [id number] 06:54:00 Test Item Value Reference Range Interpretation Comments Albumin Lvl (test code = Albumin Lvl) 3.2 3.5-5.0 [facility]BioDigitalUNC [facility] BL[facility] [id number] 06:54:00 Test Item Value Reference Range Interpretation Comments ALT (test code = ALT) 29 See_Comment [Auto mated message] The system which ge nerated this result transmit randolph reference range : <=65. The reference range was not used to interpr et this result as juan m l/abnormal. [facility] [id number] 06:54:00 Test Item Value Reference Range Interpretation Comments Total Protein (test code = Total 7.4 6.4-8.4 Protein) [facility]2016-08-29 06:54:00 Test Item Value Reference Range Interpretation Comments B/C Ratio (test code = B/C Ratio) 19 6-25 [facility]2016-08-29 06:54:00 Test Item Value Reference Range Interpretation Comments A/G Ratio (test code = A/G Ratio) 0.8 0.7-1.6 [facility]BioDigitalUNC [facility]ALTH BLUE [id number] 06:54:00 Test Item Value Reference Range Interpretation Comments Globulin (test code = Globulin) 4.2 2.7-4.2 [facility]BioDigitalUNC [facility] BLUE [id number] 06:54:00 Test Item Value Reference Range Interpretation Comments Bili Total (test code = Bili Total) 0.5 0.2-1.3 [facility]2016-08-29 06:54:00 Test Item Value Reference Range Interpretation Comments Alk Phos (test code = Alk Phos) 66 39-136 [facility]BioDigitalUNC [facility] BLUE [id number] 06:54:00 Test Item Value Reference Range Interpretation Comments AST (test code = AST) 23 See_Comment [Auto mated message] The system which ge nerated this result transmit randolph reference range : <=37. The reference range was not used to interpr et this result as juan m l/abnormal. [facility]2016-08-29 06:54:00 Test Item Value Reference Range Interpretation Comments Albumin Lvl (test code = Albumin Lvl) 3.2 3.5-5.0 [facility]2016-08-29 06:54:00 Test Item Value Reference Range Interpretation Comments ALT (test code = ALT) 29 See_Comment [Auto mated message] The system which ge nerated this result transmit randolph reference range : <=65. The reference range was not used to interpr et this result as juan m l/abnormal. [facility]2016-08-29 06:54:00 Test Item Value Reference Range Interpretation Comments Total Protein (test code = Total 7.4 6.4-8.4 Protein) [facility]2016-08-29 06:54:00 Test Item Value Reference Range Interpretation Comments B/C Ratio (test code = B/C Ratio) 19 6-25 [facility]2016-08-29 06:54:00 Test Item Value Reference Range Interpretation Comments A/G Ratio (test code = A/G Ratio) 0.8 0.7-1.6 [facility]2016-08-29 06:54:00 Test Item Value Reference Range Interpretation Comments Globulin (test code = Globulin) 4.2 2.7-4.2 [facility]BioDigitalUNC [facility] BLUE [id number] 06:54:00 Test Item Value Reference Range Interpretation Comments Bili Total (test code = Bili Total) 0.5 0.2-1.3 [facility]BioDigitalUNC [facility] BLUE [id number] 06:54:00 Test Item Value Reference Range Interpretation Comments Alk Phos (test code = Alk Phos) 66 39-136 [facility]2016-08-29 06:54:00 Test Item Value Reference Range Interpretation Comments AST (test code = AST) 23 See_Comment [Auto mated message] The system which ge nerated this result transmit randolph reference range : <=37. The reference range was not used to interpr et this result as juan m l/abnormal. [facility] HospitalBioDigitalCHEM [id number] 06:54:00 Test Item Value Reference Range Interpretation Comments Albumin Lvl (test code = Albumin Lvl) 3.2 3.5-5.0 [facility] ArlingtonCHEM [id number] 06:54:00 Test Item Value Reference Range Interpretation Comments ALT (test code = ALT) 29 See_Comment [Auto mated message] The system which ge nerated this result transmit randolph reference range : <=65. The reference range was not used to interpr et this result as juan m l/abnormal. [facility] [id number] 06:54:00 Test Item Value Reference Range Interpretation Comments Total Protein (test code = Total 7.4 6.4-8.4 Protein) [facility] [id number] 06:54:00 Test Item Value Reference Range Interpretation Comments B/C Ratio (test code = B/C Ratio) 19 6-25 [facility] [id number] 06:54:00 Test Item Value Reference Range Interpretation Comments A/G Ratio (test code = A/G Ratio) 0.8 0.7-1.6 [facility] [id number] 06:54:00 Test Item Value Reference Range Interpretation Comments Globulin (test code = Globulin) 4.2 2.7-4.2 [facility] HospitalannCARDIAC [id number] 03:48:00 Test Item Value Reference Range Interpretation Comments Troponin-I (test code no gt See_Comment [Auto mated message] The = Troponin-I) system which g enerated this result transmit randolph reference range : <=0.40. The reference r robbie was not used to interpr et this result as juan m l/abnormal. [facility] [id number] 03:48:00 Test Item Value Reference Range Interpretation Comments PTT (test code = PTT) 30.5 s 22.9-35.8 [facility] [id number] 03:48:00 Test Item Value Reference Range Interpretation Comments Etoh (%) (test code = Etoh (%)) no gt [facility] [id number] 03:48:00 Test Item Value Reference Range Interpretation Comments Ethanol Lvl (test code = Ethanol Lvl) [facility] [id number] 03:48:00 Test Item Value Reference Range Interpretation Comments UA Renal Epi (test code = UA Renal Epi) RARE [facility] AND [id number] 03:48:00 Test Item Value Reference Range Interpretation Comments UA Urobilinogen (test code = UA <=1.0 mg/dL 0.1-1.0 Urobilinogen) [facility] AND [id number] 03:48:00 Test Item Value Reference Range Interpretation Comments UA Color (test code = Yellow *NA*(04/21/16 UA Color) 10:48 PM) [facility] AND [id number] 03:48:00 Test Item Value Reference Range Interpretation Comments UA pH (test code = UA pH) 8.0 5.0-8.0 [facility] AND [id number] 03:48:00 Test Item Value Reference Range Interpretation Comments UA Spec Grav (test code = UA Spec Grav) 1.011 [facility] AND [id number] 03:48:00 Test Item Value Reference Range Interpretation Comments UA Turbidity (test code Slight *ABN*(04/21/16 = UA Turbidity) 10:48 PM) [facility] AND [id number] 03:48:00 Test Item Value Reference Range Interpretation Comments UA Glucose (test code = UA Negative mg/dL Glucose) [facility] AND [id number] 03:48:00 Test Item Value Reference Range Interpretation Comments UA Blood (test code = Negative (04/21/16 10:48 UA Blood) PM) [facility] AND [id number] 03:48:00 Test Item Value Reference Range Interpretation Comments UA Protein (test code = UA Protein) 30 mg/dL [facility] AND [id number] 03:48:00 Test Item Value Reference Range Interpretation Comments UA Bili (test code = Negative *NA*(04/21/16 UA Bili) 10:48 PM) [facility] AND [id number] 03:48:00 Test Item Value Reference Range Interpretation Comments UA Ketones (test code = UA Negative mg/dL Ketones) [facility] AND [id number] 03:48:00 Test Item Value Reference Range Interpretation Comments UA Nitrite (test code Negative (04/21/16 10:48 = UA Nitrite) PM) [facility] AND [id number] 03:48:00 Test Item Value Reference Range Interpretation Comments UA Leuk Est (test Negative (04/21/16 10:48 code = UA Leuk Est) PM) [facility] AND [id number] 03:48:00 Test Item Value Reference Range Interpretation Comments UA Amorph Chari (test code = Occasional /HPF UA Amorph Chari) [facility] AND [id number] 03:48:00 Test Item Value Reference Range Interpretation Comments UA WBC (test code = 1 See_Comment [Automa randolph message] The UA WBC) system which ge nerated this result transmit randolph reference range : <=5. The reference range was not used to interpr et this result as juan m l/abnormal. [facility] AND [id number] 03:48:00 Test Item Value Reference Range Interpretation Comments UA Mucus (test code = UA Mucus) Few /LPF [facility] AND [id number] 03:48:00 Test Item Value Reference Range Interpretation Comments UA Sq Epi (test code = UA Sq Occasional /LPF Epi) [facility]ARD[facility] [id number] 03:48:00 Test Item Value Reference Range Interpretation Comments Troponin-I (test code no gt See_Comment [Auto mated message] The = Troponin-I) system which g enerated this result transmit randolph reference range : <=0.40. The reference r robbie was not used to interpr et this result as juan m l/abnormal. [facility] [id number] 03:48:00 Test Item Value Reference Range Interpretation Comments PTT (test code = PTT) 30.5 s 22.9-35.8 [facility] [id number] 03:48:00 Test Item Value Reference Range Interpretation Comments Etoh (%) (test code = Etoh (%)) no gt [facility] [id number] 03:48:00 Test Item Value Reference Range Interpretation Comments Ethanol Lvl (test code = Ethanol Lvl) no gt [facility]annSA[facility] [id number] 03:48:00 Test Item Value Reference Range Interpretation Comments UA Renal Epi (test code = UA Renal Epi) RARE [facility] AND [id number] 03:48:00 Test Item Value Reference Range Interpretation Comments UA Urobilinogen (test code = UA <=1.0 mg/dL 0.1-1.0 Urobilinogen) [facility] AND [id number] 03:48:00 Test Item Value Reference Range Interpretation Comments UA Color (test code = Yellow *NA*(04/21/16 UA Color) 10:48 PM) [facility] AND [id number] 03:48:00 Test Item Value Reference Range Interpretation Comments UA pH (test code = UA pH) 8.0 5.0-8.0 [facility] AND [id number] 03:48:00 Test Item Value Reference Range Interpretation Comments UA Spec Grav (test code = UA Spec Grav) 1.011 [facility] AND [id number] 03:48:00 Test Item Value Reference Range Interpretation Comments UA Turbidity (test code Slight *ABN*(04/21/16 = UA Turbidity) 10:48 PM) [facility] AND [id number] 03:48:00 Test Item Value Reference Range Interpretation Comments UA Glucose (test code = UA Negative mg/dL Glucose) [facility] AND [id number] 03:48:00 Test Item Value Reference Range Interpretation Comments UA Blood (test code = Negative (04/21/16 10:48 UA Blood) PM) [facility] AND [id number] 03:48:00 Test Item Value Reference Range Interpretation Comments UA Protein (test code = UA Protein) 30 mg/dL [facility] AND [id number] 03:48:00 Test Item Value Reference Range Interpretation Comments UA Bili (test code = Negative *NA*(04/21/16 UA Bili) 10:48 PM) [facility] AND [id number] 03:48:00 Test Item Value Reference Range Interpretation Comments UA Ketones (test code = UA Negative mg/dL Ketones) [facility] AND [id number] 03:48:00 Test Item Value Reference Range Interpretation Comments UA Nitrite (test code Negative (04/21/16 10:48 = UA Nitrite) PM) [facility] AND [id number] 03:48:00 Test Item Value Reference Range Interpretation Comments UA Leuk Est (test Negative (04/21/16 10:48 code = UA Leuk Est) PM) [facility] [id number] 03:48:00 Test Item Value Reference Range Interpretation Comments UA Amorph Chari (test code = Occasional /HPF UA Amorph Chari) [facility] [id number] 03:48:00 Test Item Value Reference Range Interpretation Comments UA WBC (test code = 1 See_Comment [Automa randolph message] The UA WBC) system which ge nerated this result transmit randolph reference range : <=5. The reference range was not used to interpr et this result as juan m l/abnormal. [facility] [id number] 03:48:00 Test Item Value Reference Range Interpretation Comments UA Mucus (test code = UA Mucus) Few /LPF [facility] AND [id number] 03:48:00 Test Item Value Reference Range Interpretation Comments UA Sq Epi (test code = UA Sq Occasional /LPF Epi) [facility] [id number] 03:48:00 Test Item Value Reference Range Interpretation Comments Troponin-I (test code no gt See_Comment [Auto mated message] The = Troponin-I) system which g enerated this result transmit randolph reference range : <=0.40. The reference r robbie was not used to interpr et this result as juan m l/abnormal. [id number] 03:48:00 Test Item Value Reference Range Interpretation Comments PTT (test code = PTT) 30.5 s 22.9-35.8 [facility] [id number] 03:48:00 Test Item Value Reference Range Interpretation Comments Etoh (%) (test code = Etoh (%)) no gt [facility] [id number] 03:48:00 Test Item Value Reference Range Interpretation Comments Ethanol Lvl (test code = Ethanol Lvl) no gt [facility] [id number] 03:48:00 Test Item Value Reference Range Interpretation Comments UA Renal Epi (test code = UA Renal Epi) [facility] [id number] 03:48:00 Test Item Value Reference Range Interpretation Comments UA Urobilinogen (test code = UA <=1.0 mg/dL 0.1-1.0 Urobilinogen) [facility] AND [id number] 03:48:00 Test Item Value Reference Range Interpretation Comments UA Color (test code = Yellow *NA*(04/21/16 UA Color) 10:48 PM) [facility] AND [id number] 03:48:00 Test Item Value Reference Range Interpretation Comments UA pH (test code = UA pH) 8.0 5.0-8.0 [facility] AND [id number] 03:48:00 Test Item Value Reference Range Interpretation Comments UA Spec Grav (test code = UA Spec Grav) 1.011 [facility] AND [id number] 03:48:00 Test Item Value Reference Range Interpretation Comments UA Turbidity (test code Slight *ABN*(04/21/16 = UA Turbidity) 10:48 PM) [facility] AND [id number] 03:48:00 Test Item Value Reference Range Interpretation Comments UA Glucose (test code = UA Negative mg/dL Glucose) [facility] AND [id number] 03:48:00 Test Item Value Reference Range Interpretation Comments UA Blood (test code = Negative (04/21/16 10:48 UA Blood) PM) [facility] AND [id number] 03:48:00 Test Item Value Reference Range Interpretation Comments UA Protein (test code = UA Protein) 30 mg/dL [facility] AND [id number] 03:48:00 Test Item Value Reference Range Interpretation Comments UA Bili (test code = Negative *NA*(04/21/16 UA Bili) 10:48 PM) [facility] AND [id number] 03:48:00 Test Item Value Reference Range Interpretation Comments UA Ketones (test code = UA Negative mg/dL Ketones) [facility] AND [id number] 03:48:00 Test Item Value Reference Range Interpretation Comments UA Nitrite (test code Negative (04/21/16 10:48 = UA Nitrite) PM) [facility] AND [id number] 03:48:00 Test Item Value Reference Range Interpretation Comments UA Leuk Est (test Negative (04/21/16 10:48 code = UA Leuk Est) PM) [facility] [id number] 03:48:00 Test Item Value Reference Range Interpretation Comments UA Amorph Chari (test code = Occasional /HPF UA Amorph Chari) [facility] [id number] 03:48:00 Test Item Value Reference Range Interpretation Comments UA WBC (test code = 1 See_Comment [Automa randolph message] The UA WBC) system which ge nerated this result transmit randolph reference range : <=5. The reference range was not used to interpr et this result as juan m l/abnormal. [facility] [id number] 03:48:00 Test Item Value Reference Range Interpretation Comments UA Mucus (test code = UA Mucus) Few /LPF [facility] [id number] 03:48:00 Test Item Value Reference Range Interpretation Comments UA Sq Epi (test code = UA Sq Occasional /LPF Epi) [facility] [id number] 03:48:00 Test Item Value Reference Range Interpretation Comments Troponin-I (test code no gt See_Comment [Auto mated message] The = Troponin-I) system which g enerated this result transmit randolph reference range : <=0.40. The reference r robbie was not used to interpr et this result as juan m l/abnormal. [facility] [id number] 03:48:00 Test Item Value Reference Range Interpretation Comments PTT (test code = PTT) 30.5 s 22.9-35.8 [facility] [id number] 03:48:00 Test Item Value Reference Range Interpretation Comments Etoh (%) (test code = Etoh (%)) no gt [facility] [id number] 03:48:00 Test Item Value Reference Range Interpretation Comments Ethanol Lvl (test code = Ethanol Lvl) no gt [facility] [id number] 03:48:00 Test Item Value Reference Range Interpretation Comments UA Renal Epi (test code = UA Renal Epi) [facility] [id number] 03:48:00 Test Item Value Reference Range Interpretation Comments UA Urobilinogen (test code = UA <=1.0 mg/dL 0.1-1.0 Urobilinogen) [facility] [id number] 03:48:00 Test Item Value Reference Range Interpretation Comments UA Color (test code = Yellow *NA*(04/21/16 UA Color) 10:48 PM) [facility] AND [id number] 03:48:00 Test Item Value Reference Range Interpretation Comments UA pH (test code = UA pH) 8.0 5.0-8.0 [facility] AND [id number] 03:48:00 Test Item Value Reference Range Interpretation Comments UA Spec Grav (test code = UA Spec Grav) 1.011 [facility] AND [id number] 03:48:00 Test Item Value Reference Range Interpretation Comments UA Turbidity (test code Slight *ABN*(04/21/16 = UA Turbidity) 10:48 PM) [facility] AND [id number] 03:48:00 Test Item Value Reference Range Interpretation Comments UA Glucose (test code = UA Negative mg/dL Glucose) [facility] AND [id number] 03:48:00 Test Item Value Reference Range Interpretation Comments UA Blood (test code = Negative (04/21/16 10:48 UA Blood) PM) [facility] AND [id number] 03:48:00 Test Item Value Reference Range Interpretation Comments UA Protein (test code = UA Protein) 30 mg/dL [facility] AND [id number] 03:48:00 Test Item Value Reference Range Interpretation Comments UA Bili (test code = Negative *NA*(04/21/16 UA Bili) 10:48 PM) [facility] AND [id number] 03:48:00 Test Item Value Reference Range Interpretation Comments UA Ketones (test code = UA Negative mg/dL Ketones) [facility] AND [id number] 03:48:00 Test Item Value Reference Range Interpretation Comments UA Nitrite (test code Negative (04/21/16 10:48 = UA Nitrite) PM) [facility] AND [id number] 03:48:00 Test Item Value Reference Range Interpretation Comments UA Leuk Est (test Negative (04/21/16 10:48 code = UA Leuk Est) PM) [facility] AND [id number] 03:48:00 Test Item Value Reference Range Interpretation Comments UA Amorph Chari (test code = Occasional /HPF UA Amorph Chari) [facility] [id number] 03:48:00 Test Item Value Reference Range Interpretation Comments UA WBC (test code = 1 See_Comment [Automa randolph message] The UA WBC) system which ge nerated this result transmit randolph reference range : <=5. The reference range was not used to interpr et this result as juan m l/abnormal. [facility] [id number] 03:48:00 Test Item Value Reference Range Interpretation Comments UA Mucus (test code = UA Mucus) Few /LPF [facility] [id number] 03:48:00 Test Item Value Reference Range Interpretation Comments UA Sq Epi (test code = UA Sq Occasional /LPF Epi) [facility] [id number] 03:48:00 Test Item Value Reference Range Interpretation Comments Troponin-I (test code no gt See_Comment [Auto mated message] The = Troponin-I) system which g enerated this result transmit randolph reference range : <=0.40. The reference r robbie was not used to interpr et this result as juan m l/abnormal. [facility] [id number] 03:48:00 Test Item Value Reference Range Interpretation Comments PTT (test code = PTT) 30.5 s 22.9-35.8 [facility] [id number] 03:48:00 Test Item Value Reference Range Interpretation Comments Etoh (%) (test code = Etoh (%)) no gt [facility] [id number] 03:48:00 Test Item Value Reference Range Interpretation Comments Ethanol Lvl (test code = Ethanol Lvl) no gt [facility] [id number] 03:48:00 Test Item Value Reference Range Interpretation Comments UA Renal Epi (test code = UA Renal Epi) [facility] [id number] 03:48:00 Test Item Value Reference Range Interpretation Comments UA Urobilinogen (test code = UA <=1.0 mg/dL 0.1-1.0 Urobilinogen) [facility] [id number] 03:48:00 Test Item Value Reference Range Interpretation Comments UA Color (test code = Yellow *NA*(04/21/16 UA Color) 10:48 PM) [facility] AND [id number] 03:48:00 Test Item Value Reference Range Interpretation Comments UA pH (test code = UA pH) 8.0 5.0-8.0 [facility] AND [id number] 03:48:00 Test Item Value Reference Range Interpretation Comments UA Spec Grav (test code = UA Spec Grav) 1.011 [facility] AND [id number] 03:48:00 Test Item Value Reference Range Interpretation Comments UA Turbidity (test code Slight *ABN*(04/21/16 = UA Turbidity) 10:48 PM) [facility] AND [id number] 03:48:00 Test Item Value Reference Range Interpretation Comments UA Glucose (test code = UA Negative mg/dL Glucose) [facility] AND [id number] 03:48:00 Test Item Value Reference Range Interpretation Comments UA Blood (test code = Negative (04/21/16 10:48 UA Blood) PM) [facility] AND [id number] 03:48:00 Test Item Value Reference Range Interpretation Comments UA Protein (test code = UA Protein) 30 mg/dL [facility] AND [id number] 03:48:00 Test Item Value Reference Range Interpretation Comments UA Bili (test code = Negative *NA*(04/21/16 UA Bili) 10:48 PM) [facility] AND [id number] 03:48:00 Test Item Value Reference Range Interpretation Comments UA Ketones (test code = UA Negative mg/dL Ketones) [facility] AND [id number] 03:48:00 Test Item Value Reference Range Interpretation Comments UA Nitrite (test code Negative (04/21/16 10:48 = UA Nitrite) PM) [facility] AND [id number] 03:48:00 Test Item Value Reference Range Interpretation Comments UA Leuk Est (test Negative (04/21/16 10:48 code = UA Leuk Est) PM) [facility] AND [id number] 03:48:00 Test Item Value Reference Range Interpretation Comments UA Amorph Chari (test code = Occasional /HPF UA Amorph Chari) [facility] AND [id number] 03:48:00 Test Item Value Reference Range Interpretation Comments UA WBC (test code = 1 See_Comment [Automa randolph message] The UA WBC) system which ge nerated this result transmit randolph reference range : <=5. The reference range was not used to interpr et this result as juan m l/abnormal. [facility] [id number] 03:48:00 Test Item Value Reference Range Interpretation Comments UA Mucus (test code = UA Mucus) Few /LPF [facility] [id number] 03:48:00 Test Item Value Reference Range Interpretation Comments UA Sq Epi (test code = UA Sq Occasional /LPF Epi) [facility] [id number] 03:48:00 Test Item Value Reference Range Interpretation Comments Troponin-I (test code no gt See_Comment [Auto mated message] The = Troponin-I) system which g enerated this result transmit randolph reference range : <=0.40. The reference r robbie was not used to interpr et this result as juan m l/abnormal. [facility] [id number] 03:48:00 Test Item Value Reference Range Interpretation Comments PTT (test code = PTT) 30.5 s 22.9-35.8 [facility] [id number] 03:48:00 Test Item Value Reference Range Interpretation Comments Etoh (%) (test code = Etoh (%)) no gt [facility] [id number] 03:48:00 Test Item Value Reference Range Interpretation Comments Ethanol Lvl (test code = Ethanol Lvl) no gt [facility] [id number] 03:48:00 Test Item Value Reference Range Interpretation Comments UA Renal Epi (test code = UA Renal Epi) [facility] [id number] 03:48:00 Test Item Value Reference Range Interpretation Comments UA Urobilinogen (test code = UA <=1.0 mg/dL 0.1-1.0 Urobilinogen) [facility] [id number] 03:48:00 Test Item Value Reference Range Interpretation Comments UA Color (test code = Yellow *NA*(04/21/16 UA Color) 10:48 PM) [facility] [id number] 03:48:00 Test Item Value Reference Range Interpretation Comments UA pH (test code = UA pH) 8.0 5.0-8.0 [facility] AND [id number] 03:48:00 Test Item Value Reference Range Interpretation Comments UA Spec Grav (test code = UA Spec Grav) 1.011 [facility] AND [id number] 03:48:00 Test Item Value Reference Range Interpretation Comments UA Turbidity (test code Slight *ABN*(04/21/16 = UA Turbidity) 10:48 PM) [facility] AND [id number] 03:48:00 Test Item Value Reference Range Interpretation Comments UA Glucose (test code = UA Negative mg/dL Glucose) [facility] AND [id number] 03:48:00 Test Item Value Reference Range Interpretation Comments UA Blood (test code = Negative (04/21/16 10:48 UA Blood) PM) [facility] AND [id number] 03:48:00 Test Item Value Reference Range Interpretation Comments UA Protein (test code = UA Protein) 30 mg/dL [facility] AND [id number] 03:48:00 Test Item Value Reference Range Interpretation Comments UA Bili (test code = Negative *NA*(04/21/16 UA Bili) 10:48 PM) [facility] AND [id number] 03:48:00 Test Item Value Reference Range Interpretation Comments UA Ketones (test code = UA Negative mg/dL Ketones) [facility] AND [id number] 03:48:00 Test Item Value Reference Range Interpretation Comments UA Nitrite (test code Negative (04/21/16 10:48 = UA Nitrite) PM) [facility] AND [id number] 03:48:00 Test Item Value Reference Range Interpretation Comments UA Leuk Est (test Negative (04/21/16 10:48 code = UA Leuk Est) PM) [facility] AND [id number] 03:48:00 Test Item Value Reference Range Interpretation Comments UA Amorph Chari (test code = Occasional /HPF UA Amorph Chari) [facility] AND [id number] 03:48:00 Test Item Value Reference Range Interpretation Comments UA WBC (test code = 1 See_Comment [Automa randolph message] The UA WBC) system which ge nerated this result transmit randolph reference range : <=5. The reference range was not used to interpr et this result as juan m l/abnormal. [facility] [id number] 03:48:00 Test Item Value Reference Range Interpretation Comments UA Mucus (test code = UA Mucus) Few /LPF [facility] [id number] 03:48:00 Test Item Value Reference Range Interpretation Comments UA Sq Epi (test code = UA Sq Occasional /LPF Epi) [facility] [id number] 03:48:00 Test Item Value Reference Range Interpretation Comments Troponin-I (test code no gt See_Comment [Auto mated message] The = Troponin-I) system which g enerated this result transmit randolph reference range : <=0.40. The reference r robbie was not used to interpr et this result as juan m l/abnormal. [facility] [id number] 03:48:00 Test Item Value Reference Range Interpretation Comments PTT (test code = PTT) 30.5 s 22.9-35.8 [facility] [id number] 03:48:00 Test Item Value Reference Range Interpretation Comments Etoh (%) (test code = Etoh (%)) no gt [facility] [id number] 03:48:00 Test Item Value Reference Range Interpretation Comments Ethanol Lvl (test code = Ethanol Lvl) no gt [facility] [id number] 03:48:00 Test Item Value Reference Range Interpretation Comments UA Renal Epi (test code = UA Renal Epi) [facility] [id number] 03:48:00 Test Item Value Reference Range Interpretation Comments UA Urobilinogen (test code = UA <=1.0 mg/dL 0.1-1.0 Urobilinogen) [facility] [id number] 03:48:00 Test Item Value Reference Range Interpretation Comments UA Color (test code = Yellow *NA*(04/21/16 UA Color) 10:48 PM) [facility] [id number] 03:48:00 Test Item Value Reference Range Interpretation Comments UA pH (test code = UA pH) 8.0 5.0-8.0 [facility] [id number] 03:48:00 Test Item Value Reference Range Interpretation Comments UA Spec Grav (test code = UA Spec Grav) 1.011 [facility] AND [id number] 03:48:00 Test Item Value Reference Range Interpretation Comments UA Turbidity (test code Slight *ABN*(04/21/16 = UA Turbidity) 10:48 PM) [facility] AND [id number] 03:48:00 Test Item Value Reference Range Interpretation Comments UA Glucose (test code = UA Negative mg/dL Glucose) [facility] AND [id number] 03:48:00 Test Item Value Reference Range Interpretation Comments UA Blood (test code = Negative (04/21/16 10:48 UA Blood) PM) [facility] AND [id number] 03:48:00 Test Item Value Reference Range Interpretation Comments UA Protein (test code = UA Protein) 30 mg/dL [facility] AND [id number] 03:48:00 Test Item Value Reference Range Interpretation Comments UA Bili (test code = Negative *NA*(04/21/16 UA Bili) 10:48 PM) [facility] AND [id number] 03:48:00 Test Item Value Reference Range Interpretation Comments UA Ketones (test code = UA Negative mg/dL Ketones) [facility] AND [id number] 03:48:00 Test Item Value Reference Range Interpretation Comments UA Nitrite (test code Negative (04/21/16 10:48 = UA Nitrite) PM) [facility] AND [id number] 03:48:00 Test Item Value Reference Range Interpretation Comments UA Leuk Est (test Negative (04/21/16 10:48 code = UA Leuk Est) PM) [facility] AND [id number] 03:48:00 Test Item Value Reference Range Interpretation Comments UA Amorph Chari (test code = Occasional /HPF UA Amorph Chari) [facility] AND [id number] 03:48:00 Test Item Value Reference Range Interpretation Comments UA WBC (test code = 1 See_Comment [Automa randolph message] The UA WBC) system which ge nerated this result transmit randolph reference range : <=5. The reference range was not used to interpr et this result as juan m l/abnormal. [facility] AND [id number] 03:48:00 Test Item Value Reference Range Interpretation Comments UA Mucus (test code = UA Mucus) Few /LPF [facility] [id number] 03:48:00 Test Item Value Reference Range Interpretation Comments UA Sq Epi (test code = UA Sq Occasional /LPF Epi) [facility] [id number] 03:48:00 Test Item Value Reference Range Interpretation Comments Troponin-I (test code no gt See_Comment [Auto mated message] The = Troponin-I) system which g enerated this result transmit randolph reference range : <=0.40. The reference r robbie was not used to interpr et this result as juan m l/abnormal. [facility] [id number] 03:48:00 Test Item Value Reference Range Interpretation Comments PTT (test code = PTT) 30.5 s 22.9-35.8 [facility] [id number] 03:48:00 Test Item Value Reference Range Interpretation Comments Etoh (%) (test code = Etoh (%)) no gt [facility] [id number] 03:48:00 Test Item Value Reference Range Interpretation Comments Ethanol Lvl (test code = Ethanol Lvl) no gt [facility] [id number] 03:48:00 Test Item Value Reference Range Interpretation Comments UA Renal Epi (test code = UA Renal Epi) [facility] [id number] 03:48:00 Test Item Value Reference Range Interpretation Comments UA Urobilinogen (test code = UA <=1.0 mg/dL 0.1-1.0 Urobilinogen) [facility] [id number] 03:48:00 Test Item Value Reference Range Interpretation Comments UA Color (test code = Yellow *NA*(04/21/16 UA Color) 10:48 PM) [facility] [id number] 03:48:00 Test Item Value Reference Range Interpretation Comments UA pH (test code = UA pH) 8.0 5.0-8.0 [facility] [id number] 03:48:00 Test Item Value Reference Range Interpretation Comments UA Spec Grav (test code = UA Spec Grav) 1.011 [facility] [id number] 03:48:00 Test Item Value Reference Range Interpretation Comments UA Turbidity (test code Slight *ABN*(04/21/16 = UA Turbidity) 10:48 PM) [facility] AND [id number] 03:48:00 Test Item Value Reference Range Interpretation Comments UA Glucose (test code = UA Negative mg/dL Glucose) [facility] AND [id number] 03:48:00 Test Item Value Reference Range Interpretation Comments UA Blood (test code = Negative (04/21/16 10:48 UA Blood) PM) [facility] AND [id number] 03:48:00 Test Item Value Reference Range Interpretation Comments UA Protein (test code = UA Protein) 30 mg/dL [facility] AND [id number] 03:48:00 Test Item Value Reference Range Interpretation Comments UA Bili (test code = Negative *NA*(04/21/16 UA Bili) 10:48 PM) [facility] AND [id number] 03:48:00 Test Item Value Reference Range Interpretation Comments UA Ketones (test code = UA Negative mg/dL Ketones) [facility] AND [id number] 03:48:00 Test Item Value Reference Range Interpretation Comments UA Nitrite (test code Negative (04/21/16 10:48 = UA Nitrite) PM) [facility] AND [id number] 03:48:00 Test Item Value Reference Range Interpretation Comments UA Leuk Est (test Negative (04/21/16 10:48 code = UA Leuk Est) PM) [facility] AND [id number] 03:48:00 Test Item Value Reference Range Interpretation Comments UA Amorph Chari (test code = Occasional /HPF UA Amorph Chari) [facility] AND [id number] 03:48:00 Test Item Value Reference Range Interpretation Comments UA WBC (test code = 1 See_Comment [Automa randolph message] The UA WBC) system which ge nerated this result transmit randolph reference range : <=5. The reference range was not used to interpr et this result as juan m l/abnormal. [facility] AND [id number] 03:48:00 Test Item Value Reference Range Interpretation Comments UA Mucus (test code = UA Mucus) Few /LPF [facility] AND [id number] 03:48:00 Test Item Value Reference Range Interpretation Comments UA Sq Epi (test code = UA Sq Occasional /LPF Epi) [facility] [id number] 03:48:00 Test Item Value Reference Range Interpretation Comments Troponin-I (test code no gt See_Comment [Auto mated message] The = Troponin-I) system which g enerated this result transmit randolph reference range : <=0.40. The reference r robbie was not used to interpr et this result as juan m l/abnormal. [facility] [id number] 03:48:00 Test Item Value Reference Range Interpretation Comments PTT (test code = PTT) 30.5 s 22.9-35.8 [facility] [id number] 03:48:00 Test Item Value Reference Range Interpretation Comments Etoh (%) (test code = Etoh (%)) no gt [id number] 03:48:00 Test Item Value Reference Range Interpretation Comments Ethanol Lvl (test code = Ethanol Lvl) [facility] gt [facility] [id number] 03:48:00 Test Item Value Reference Range Interpretation Comments UA Renal Epi (test code = UA Renal Epi) [facility] [id number] 03:48:00 Test Item Value Reference Range Interpretation Comments UA Urobilinogen (test code = UA <=1.0 mg/dL 0.1-1.0 Urobilinogen) [facility] [id number] 03:48:00 Test Item Value Reference Range Interpretation Comments UA Color (test code = Yellow *NA*(04/21/16 UA Color) 10:48 PM) [facility] [id number] 03:48:00 Test Item Value Reference Range Interpretation Comments UA pH (test code = UA pH) 8.0 5.0-8.0 [facility] [id number] 03:48:00 Test Item Value Reference Range Interpretation Comments UA Spec Grav (test code = UA Spec Grav) 1.011 [facility] [id number] 03:48:00 Test Item Value Reference Range Interpretation Comments UA Turbidity (test code Slight *ABN*(04/21/16 = UA Turbidity) 10:48 PM) [facility] AND [id number] 03:48:00 Test Item Value Reference Range Interpretation Comments UA Glucose (test code = UA Negative mg/dL Glucose) [facility] AND [id number] 03:48:00 Test Item Value Reference Range Interpretation Comments UA Blood (test code = Negative (04/21/16 10:48 UA Blood) PM) [facility] AND [id number] 03:48:00 Test Item Value Reference Range Interpretation Comments UA Protein (test code = UA Protein) 30 mg/dL [facility] AND [id number] 03:48:00 Test Item Value Reference Range Interpretation Comments UA Bili (test code = Negative *NA*(04/21/16 UA Bili) 10:48 PM) [facility] AND [id number] 03:48:00 Test Item Value Reference Range Interpretation Comments UA Ketones (test code = UA Negative mg/dL Ketones) [facility] AND [id number] 03:48:00 Test Item Value Reference Range Interpretation Comments UA Nitrite (test code Negative (04/21/16 10:48 = UA Nitrite) PM) [facility] AND [id number] 03:48:00 Test Item Value Reference Range Interpretation Comments UA Leuk Est (test Negative (04/21/16 10:48 code = UA Leuk Est) PM) [facility] AND [id number] 03:48:00 Test Item Value Reference Range Interpretation Comments UA Amorph Chari (test code = Occasional /HPF UA Amorph Chari) [facility] AND [id number] 03:48:00 Test Item Value Reference Range Interpretation Comments UA WBC (test code = 1 See_Comment [Automa randolph message] The UA WBC) system which ge nerated this result transmit randolph reference range : <=5. The reference range was not used to interpr et this result as juan m l/abnormal. [facility] AND [id number] 03:48:00 Test Item Value Reference Range Interpretation Comments UA Mucus (test code = UA Mucus) Few /LPF [facility] AND [id number] 03:48:00 Test Item Value Reference Range Interpretation Comments UA Sq Epi (test code = UA Sq Occasional /LPF Epi) [facility] [id number] 03:48:00 Test Item Value Reference Range Interpretation Comments Troponin-I (test code no gt See_Comment [Auto mated message] The = Troponin-I) system which g enerated this result transmit randolph reference range : <=0.40. The reference r robbie was not used to interpr et this result as juan m l/abnormal. [facility] [id number] 03:48:00 Test Item Value Reference Range Interpretation Comments PTT (test code = PTT) 30.5 s 22.9-35.8 [facility] [id number] 03:48:00 Test Item Value Reference Range Interpretation Comments Etoh (%) (test code = Etoh (%)) no gt [facility] [id number] 03:48:00 Test Item Value Reference Range Interpretation Comments Ethanol Lvl (test code = Ethanol Lvl) no gt [facility] [id number] 03:48:00 Test Item Value Reference Range Interpretation Comments UA Renal Epi (test code = UA Renal Epi) [facility] [id number] 03:48:00 Test Item Value Reference Range Interpretation Comments UA Urobilinogen (test code = UA <=1.0 mg/dL 0.1-1.0 Urobilinogen) [facility] [id number] 03:48:00 Test Item Value Reference Range Interpretation Comments UA Color (test code = Yellow *NA*(04/21/16 UA Color) 10:48 PM) [facility] [id number] 03:48:00 Test Item Value Reference Range Interpretation Comments UA pH (test code = UA pH) 8.0 5.0-8.0 [facility] [id number] 03:48:00 Test Item Value Reference Range Interpretation Comments UA Spec Grav (test code = UA Spec Grav) 1.011 [facility] [id number] 03:48:00 Test Item Value Reference Range Interpretation Comments UA Turbidity (test code Slight *ABN*(04/21/16 = UA Turbidity) 10:48 PM) [facility] [id number] 03:48:00 Test Item Value Reference Range Interpretation Comments UA Glucose (test code = UA Negative mg/dL Glucose) [facility] AND [id number] 03:48:00 Test Item Value Reference Range Interpretation Comments UA Blood (test code = Negative (04/21/16 10:48 UA Blood) PM) [facility] AND [id number] 03:48:00 Test Item Value Reference Range Interpretation Comments UA Protein (test code = UA Protein) 30 mg/dL [facility] AND [id number] 03:48:00 Test Item Value Reference Range Interpretation Comments UA Bili (test code = Negative *NA*(04/21/16 UA Bili) 10:48 PM) [facility] AND [id number] 03:48:00 Test Item Value Reference Range Interpretation Comments UA Ketones (test code = UA Negative mg/dL Ketones) [facility] AND [id number] 03:48:00 Test Item Value Reference Range Interpretation Comments UA Nitrite (test code Negative (04/21/16 10:48 = UA Nitrite) PM) [facility] AND [id number] 03:48:00 Test Item Value Reference Range Interpretation Comments UA Leuk Est (test Negative (04/21/16 10:48 code = UA Leuk Est) PM) [facility] AND [id number] 03:48:00 Test Item Value Reference Range Interpretation Comments UA Amorph Chari (test code = Occasional /HPF UA Amorph Chari) [facility] AND [id number] 03:48:00 Test Item Value Reference Range Interpretation Comments UA WBC (test code = 1 See_Comment [Automa randolph message] The UA WBC) system which ge nerated this result transmit randolph reference range : <=5. The reference range was not used to interpr et this result as juan m l/abnormal. [facility] AND [id number] 03:48:00 Test Item Value Reference Range Interpretation Comments UA Mucus (test code = UA Mucus) Few /LPF [facility] AND [id number] 03:48:00 Test Item Value Reference Range Interpretation Comments UA Sq Epi (test code = UA Sq Occasional /LPF Epi) [facility] [id number] 03:48:00 Test Item Value Reference Range Interpretation Comments Troponin-I (test code no gt See_Comment [Auto mated message] The = Troponin-I) system which g enerated this result transmit randolph reference range : <=0.40. The reference r robbie was not used to interpr et this result as juan m l/abnormal. [facility] [id number] 03:48:00 Test Item Value Reference Range Interpretation Comments PTT (test code = PTT) 30.5 s 22.9-35.8 [facility] [id number] 03:48:00 Test Item Value Reference Range Interpretation Comments Etoh (%) (test code = Etoh (%)) no gt [facility] [id number] 03:48:00 Test Item Value Reference Range Interpretation Comments Ethanol Lvl (test code = Ethanol Lvl) no gt [facility] AND [id number] 03:48:00 Test Item Value Reference Range Interpretation Comments UA Renal Epi (test code = UA Renal Epi) RARE [facility] AND [id number] 03:48:00 Test Item Value Reference Range Interpretation Comments UA Urobilinogen (test code = UA <=1.0 mg/dL 0.1-1.0 Urobilinogen) [facility] AND [id number] 03:48:00 Test Item Value Reference Range Interpretation Comments UA Color (test code = Yellow *NA*(04/21/16 UA Color) 10:48 PM) [facility] AND [id number] 03:48:00 Test Item Value Reference Range Interpretation Comments UA pH (test code = UA pH) 8.0 5.0-8.0 [facility] AND [id number] 03:48:00 Test Item Value Reference Range Interpretation Comments UA Spec Grav (test code = UA Spec Grav) 1.011 [facility] AND [id number] 03:48:00 Test Item Value Reference Range Interpretation Comments UA Turbidity (test code Slight *ABN*(04/21/16 = UA Turbidity) 10:48 PM) [facility] AND [id number] 03:48:00 Test Item Value Reference Range Interpretation Comments UA Glucose (test code = UA Negative mg/dL Glucose) [facility] AND [id number] 03:48:00 Test Item Value Reference Range Interpretation Comments UA Blood (test code = Negative (04/21/16 10:48 UA Blood) PM) [facility] [id number] 03:48:00 Test Item Value Reference Range Interpretation Comments UA Protein (test code = UA Protein) 30 mg/dL [facility] [id number] 03:48:00 Test Item Value Reference Range Interpretation Comments UA Bili (test code = Negative *NA*(04/21/16 UA Bili) 10:48 PM) [facility] [id number] 03:48:00 Test Item Value Reference Range Interpretation Comments UA Ketones (test code = UA Negative mg/dL Ketones) [facility] [id number] 03:48:00 Test Item Value Reference Range Interpretation Comments UA Nitrite (test code Negative (04/21/16 10:48 = UA Nitrite) PM) [facility] AND [id number] 03:48:00 Test Item Value Reference Range Interpretation Comments UA Leuk Est (test Negative (04/21/16 10:48 code = UA Leuk Est) PM) [facility] [id number] 03:48:00 Test Item Value Reference Range Interpretation Comments UA Amorph Chari (test code = Occasional /HPF UA Amorph Chari) [facility] [id number] 03:48:00 Test Item Value Reference Range Interpretation Comments UA WBC (test code = 1 See_Comment [Automa randolph message] The UA WBC) system which ge nerated this result transmit randolph reference range : <=5. The reference range was not used to interpr et this result as juan m l/abnormal. [facility] [id number] 03:48:00 Test Item Value Reference Range Interpretation Comments UA Mucus (test code = UA Mucus) Few /LPF [facility] [id number] 03:48:00 Test Item Value Reference Range Interpretation Comments UA Sq Epi (test code = UA Sq Occasional /LPF Epi) [facility] [id number] 03:48:00 Test Item Value Reference Range Interpretation Comments Troponin-I (test code no gt See_Comment [Auto mated message] The = Troponin-I) system which g enerated this result transmit randolph reference range : <=0.40. The reference r robbie was not used to interpr et this result as juan m l/abnormal. [facility] A[id number] 03:48:00 Test Item Value Reference Range Interpretation Comments PTT (test code = PTT) 30.5 s 22.9-35.8 [facility] [id number] 03:48:00 Test Item Value Reference Range Interpretation Comments Etoh (%) (test code = Etoh (%)) no gt [facility] A[id number] 03:48:00 Test Item Value Reference Range Interpretation Comments Ethanol Lvl (test code = Ethanol Lvl) no gt [facility] AND [id number] 03:48:00 Test Item Value Reference Range Interpretation Comments UA Renal Epi (test code = UA Renal Epi) RARE [facility] AND [id number] 03:48:00 Test Item Value Reference Range Interpretation Comments UA Urobilinogen (test code = UA <=1.0 mg/dL 0.1-1.0 Urobilinogen) [facility] AND [id number] 03:48:00 Test Item Value Reference Range Interpretation Comments UA Color (test code = Yellow *NA*(04/21/16 UA Color) 10:48 PM) [facility] AND [id number] 03:48:00 Test Item Value Reference Range Interpretation Comments UA pH (test code = UA pH) 8.0 5.0-8.0 [facility] AND [id number] 03:48:00 Test Item Value Reference Range Interpretation Comments UA Spec Grav (test code = UA Spec Grav) 1.011 [facility] AND [id number] 03:48:00 Test Item Value Reference Range Interpretation Comments UA Turbidity (test code Slight *ABN*(04/21/16 = UA Turbidity) 10:48 PM) [facility] AND [id number] 03:48:00 Test Item Value Reference Range Interpretation Comments UA Glucose (test code = UA Negative mg/dL Glucose) [facility] AND [id number] 03:48:00 Test Item Value Reference Range Interpretation Comments UA Blood (test code = Negative (04/21/16 10:48 UA Blood) PM) [facility] AND [id number] 03:48:00 Test Item Value Reference Range Interpretation Comments UA Protein (test code = UA Protein) 30 mg/dL [facility] AND [id number] 03:48:00 Test Item Value Reference Range Interpretation Comments UA Bili (test code = Negative *NA*(04/21/16 UA Bili) 10:48 PM) [facility] AND [id number] 03:48:00 Test Item Value Reference Range Interpretation Comments UA Ketones (test code = UA Negative mg/dL Ketones) [facility] AND [id number] 03:48:00 Test Item Value Reference Range Interpretation Comments UA Nitrite (test code Negative (04/21/16 10:48 = UA Nitrite) PM) [facility] AND [id number] 03:48:00 Test Item Value Reference Range Interpretation Comments UA Leuk Est (test Negative (04/21/16 10:48 code = UA Leuk Est) PM) [facility] AND [id number] 03:48:00 Test Item Value Reference Range Interpretation Comments UA Amorph Chari (test code = Occasional /HPF UA Amorph Chari) [facility] AND [id number] 03:48:00 Test Item Value Reference Range Interpretation Comments UA WBC (test code = 1 See_Comment [Automa randolph message] The UA WBC) system which ge nerated this result transmit randolph reference range : <=5. The reference range was not used to interpr et this result as juan m l/abnormal. [facility] AND [id number] 03:48:00 Test Item Value Reference Range Interpretation Comments UA Mucus (test code = UA Mucus) Few /LPF [facility] AND [id number] 03:48:00 Test Item Value Reference Range Interpretation Comments UA Sq Epi (test code = UA Sq Occasional /LPF Epi) [facility] [id number] 03:48:00 Test Item Value Reference Range Interpretation Comments Troponin-I (test code no gt See_Comment [Auto mated message] The = Troponin-I) system which g enerated this result transmit randolph reference range : <=0.40. The reference r robbie was not used to interpr et this result as juan m l/abnormal. [facility] [id number] 03:48:00 Test Item Value Reference Range Interpretation Comments PTT (test code = PTT) 30.5 s 22.9-35.8 [facility] [id number] 03:48:00 Test Item Value Reference Range Interpretation Comments Etoh (%) (test code = Etoh (%)) no gt [id number] 03:48:00 Test Item Value Reference Range Interpretation Comments Ethanol Lvl (test code = Ethanol Lvl) no gt [facility] AND [id number] 03:48:00 Test Item Value Reference Range Interpretation Comments UA Renal Epi (test code = UA Renal Epi) RARE [facility] AND [id number] 03:48:00 Test Item Value Reference Range Interpretation Comments UA Urobilinogen (test code = UA <=1.0 mg/dL 0.1-1.0 Urobilinogen) [facility] AND [id number] 03:48:00 Test Item Value Reference Range Interpretation Comments UA Color (test code = Yellow *NA*(04/21/16 UA Color) 10:48 PM) [facility] AND [id number] 03:48:00 Test Item Value Reference Range Interpretation Comments UA pH (test code = UA pH) 8.0 5.0-8.0 [facility] AND [id number] 03:48:00 Test Item Value Reference Range Interpretation Comments UA Spec Grav (test code = UA Spec Grav) 1.011 [facility] AND [id number] 03:48:00 Test Item Value Reference Range Interpretation Comments UA Turbidity (test code Slight *ABN*(04/21/16 = UA Turbidity) 10:48 PM) [facility] AND [id number] 03:48:00 Test Item Value Reference Range Interpretation Comments UA Glucose (test code = UA Negative mg/dL Glucose) [facility] AND [id number] 03:48:00 Test Item Value Reference Range Interpretation Comments UA Blood (test code = Negative (04/21/16 10:48 UA Blood) PM) [facility] AND [id number] 03:48:00 Test Item Value Reference Range Interpretation Comments UA Protein (test code = UA Protein) 30 mg/dL [facility] AND [id number] 03:48:00 Test Item Value Reference Range Interpretation Comments UA Bili (test code = Negative *NA*(04/21/16 UA Bili) 10:48 PM) [facility] AND [id number] 03:48:00 Test Item Value Reference Range Interpretation Comments UA Ketones (test code = UA Negative mg/dL Ketones) [facility] AND [id number] 03:48:00 Test Item Value Reference Range Interpretation Comments UA Nitrite (test code Negative (04/21/16 10:48 = UA Nitrite) PM) [facility] [id number] 03:48:00 Test Item Value Reference Range Interpretation Comments UA Leuk Est (test Negative (04/21/16 10:48 code = UA Leuk Est) PM) [facility] AND [id number] 03:48:00 Test Item Value Reference Range Interpretation Comments UA Amorph Chari (test code = Occasional /HPF UA Amorph Chari) [facility] AND [id number] 03:48:00 Test Item Value Reference Range Interpretation Comments UA WBC (test code = 1 See_Comment [Automa randolph message] The UA WBC) system which ge nerated this result transmit randolph reference range : <=5. The reference range was not used to interpr et this result as juan m l/abnormal. [facility] AND [id number] 03:48:00 Test Item Value Reference Range Interpretation Comments UA Mucus (test code = UA Mucus) Few /LPF [facility] AND [id number] 03:48:00 Test Item Value Reference Range Interpretation Comments UA Sq Epi (test code = UA Sq Occasional /LPF Epi) [facility] Notes Date/Time Note Provider Source 2021-09-27 [id number] [facility] 17:38:00-00:00 [place] [address] PATIENT NAME: JASON GOYAL ADMIT DATE: ACCOUNT NO: [id number] ROOM NO: [id number] AGE: 86 REPORT TYPE: 360 - QUERY RESPONSE DOCUMENT SEX: F ADMITTING PHYSICIAN:Iván Cowan MD ATTENDING PHYSICIAN:Iván Cowan MD Provider Query QUERY TEXT: Condition Blood 360MD Query related questions should be directed to: Yrn HUTCHINSON RN, BSN [email or web address] Based on your clinical judgment, can you [...] PATIENT NAME: JASON GOYAL ACCOUNT #: [id number] 2021-09-21 [facility] 15:38:00-00:00 [facility] ([facility]) Med Order Sheet REPORT #: [id number] REPORT STATUS: Signed DATE: 09/21/21 TIME: 1538 PATIENT: JASON GOYAL UNIT #: [id number] ROOM #: P.0580 BED: 1 : 35 AGE: 86 SEX: F ATTEND: Iván Cowan MD ADM AUTHOR: Silviano Henson APRN ATTENTION *EDITS and/or ADDENDA must be made in Patient Ke eper for this note. * * Edits and ammendments created in [facility] are not visible * * in Patient [...] * * Edits and ammendments created in [employer] are not visible * * in Patient Keeper or the legal medical record (HPF). * RPT #: [id number] END OF REPORT 2021-09-21 [facility] 11:04:00-00:00 [facility] ([facility]) Internal Med. D/C Summary REPORT #: [id number] REPORT STATUS: Signed DATE: 09/21/21 TIME: 1104 PATIENT: JASON GOYAL UNIT #: [id number] ROOM #: P0580 BED: 1 : 35 AGE: 86 SEX: F ATTEND: Iván Cowan MD ADM AUTHOR: Silviano Henson APRN ATTENTION *EDITS and/or ADDENDA must be made in Patient Ke eper for this note. * * Edits and ammendments created in [employer] are not visible * * in Patient Keeper or the legal medical record (HPF). * -- CO-SIGNATURE -- COMMENTS: Patient seen and examined doing well POD 3 Plan of care discussed with patient, all questions answered to her satisfaction Agree with the findings as detailed by Silviano smith APRN Discussed with Dr. White ms for discharge Plans upon discharge are enumerated below Total time spent coordinating care > 35 mins Signed in PatientKeeper by SAM [facility] MD o n 09/21/21 at 21:36 -- PROBLEMS/PROCEDURES -- ADMISSION [...] woman with coronary ar manny disease s/p [place]/PCI 2002, depression, hypertension, hy pothyroidism and colon cancer who underwent robotic assisted left colectomy and lysis of adhesions b y Dr. Aquino. Patient is doing well POD#3. Pain is well controlled, and she is ambulating with a walker. Patient is passing flatus, and tolerating a soft diet. Discussed with CRS. Judd for discharge. -- DISCHARGE MEDICATIONS -- ALLERGIES: [...] * * Edits and ammendments created in [facility] are not visible * * in Patient Keeper or the legal medical record (HPF). * [facility] #: [id number] END OF REPORT 2021-09-18 [id number] [facility] 18:31:00-00:00 [address] [place] [address] PATIENT NAME: JASON GOYAL ADMIT DATE: ACCOUNT NO: [id number] [facility] AGE[facility] 86 REPORT TYPE: OPERATIVE REPORT SEX: [...] anastomosis, closure. COLORECTAL SURGEON: Iván Cowan MD LOCKER OPERATOR: Naga Mcgee M.D. ANESTHESIA: General endotracheal anesthesia. [...] PATIENT NAME: JASON GOYAL ACCOUNT #: [id number] In addition, however, and al so unrelated [...] d the procedure well without complications. Surgical restaurant assistant was present and required for the procedure. PROCEDURE IN DETAIL: The patient was taken to [facility] operating room and after induction of anesthesia, [...] got distally, there was significant distortion of th e rectum beyond the sigmoid diverticular disease [...] taken to recovery PATIENT NAME: JASON GOYAL ARANA ACCOUNT #: [id number] room in good condition. Dictated By: Iván Cowan MD WT: OP:PRAD/BASILIO/MELO Conf#: [id number]/DID#: [id number] Authenticated by Iván Cowan MD On 09/19/2021 0 8:41:26 AM Electronically Signed by Iván Cowan MD on 08/26 02/13 at 0841 PATIENT NAME: JASON GOYAL SUMIT ACCOUNT #: [id number] 2021-09-14 [id number] [facility] 10:39:00-00:00 [facility] [address] [place] [address] PATIENT NAME: JASON GOYAL ADMIT DATE: ACCOUNT NO: [id number] ROOM NO: AGE: 86 REPORT TYPE: eELECTROCARDIOGRAM SEX: F ADMITTING PHYSICIAN: Iván Cowan MD ATTENDING PHYSICIAN: Iván Cowan MD Order: [id number] Test Reason : PRE OP PER ANESTHESIA [...] UNCONFIRMED Confirmed by JOSE ROBERTO MARTIN MD ([id number]) on 09/17/19 2:54:14 PM Referred By: Iván Cowan Confirmed by:JOSE ROBERTO Martínez MD Electronically Signed by Jose Roberto Martin MD on 0 09/17/21 at 1454 PATIENT NAME: JASON GOYAL ACCOUNT #: [id number] 2019-05-19 EXAM: Abdomen CTA [facility] 13:38:00-00:00 DATE: 05/19/2019 13:38 CDT. INDICATION: I15.0 [...] is partially imaged. 2019-05-19 EXAM: [facility] 13:38:00-00:00 DATE: 05/19/2019 13:38 CDT. INDICATION: [...] is partially imaged. 2019-05-19 EXAM: Abdomen CTA [facility] 13:38:00-00:00 DATE: 05/19/2019 13:38 CDT. INDICATION: I15.0 [...] is partially imaged. 2019-05-19 EXAM: Abdomen CTA [facility] 13:38:00-00:00 DATE: 05/19/2019 13:38 CDT. INDICATION: I15.0 [...] is partially imaged. 2019-05-19 EXAM: [facility] 13:38:00-00:00 DATE: 05/19/2019 13:38 CDT. INDICATION: [...] imaged. 2016-04-22 EXAM: MRI BRAIN WITHOUT CONTRAST [facility] 11:02:00-00:00 DATE: 04/21/2016 Center INDICATION: Vertigo COMPARISON: [...] atrophy. 2016-04-22 EXAM: MRI BRAIN WITHOUT CONTRAST [facility] 11:02:00-00:00 DATE: 04/21/2016 Center INDICATION: Vertigo COMPARISON: [...] atrophy. 2016-04-22 EXAM: MRI BRAIN WITHOUT CONTRAST [facility] 11:02:00-00:00 DATE: 04/21/2016 Center INDICATION: Vertigo COMPARISON: [...] atrophy. 2016-04-22 EXAM: MRI BRAIN WITHOUT CONTRAST [facility] 11:02:00-00:00 DATE: 04/21/2016 Center INDICATION: Vertigo COMPARISON: [...] atrophy. 2016-04-22 EXAM: MRI BRAIN WITHOUT CONTRAST [facility] 11:02:00-00:00 DATE: 04/21/2016 Center INDICATION: Vertigo COMPARISON: [...] Moderate diffuse cerebral atrophy. 2015-03-02 EXAM: RENAL [facility] 12:46:45-00:00 DATE: 03/02/2015. INDICATION: Follow [...] compared to previous exam. 2015-03-02 [facility] 12:46:45-00:00 DATE: 03/02/2015. INDICATION: Follow up renal [...] compared to previous exam. 2015-03-02 EXAM: RENAL [facility] 12:46:45-00:00 DATE: 03/02/2015. INDICATION: Follow up renal [...] compared to previous exam. 2015-03-02 EXAM: [facility] 12:46:45-00:00 DATE: 03/02/2015. INDICATION: Follow up renal [...] to previous exam. 2015-03-02 EXAM: US RENAL [facility] 12:46:45-00:00 DATE: 03/02/2015. INDICATION: Follow up renal [...]
[2023-03-04] MEDS ORDERED: BISACODYL 10 MG RECTAL SUPP PR PRN (17:30)
[2023-03-04] MEDS ORDERED: MELATONIN 5 MG TABLET PO PRN (17:40)
[2023-03-04] MEDS ORDERED: ONDANSETRON 4 MG (ODT) TAB PO PRN (17:41)
[2023-03-04] MEDS ORDERED: [UNRECOGNIZED DRUG - OTHER] PO SCH (20:00)
[2023-03-04 20:36] LABS: Specific Gravity 1.012 (1.005-1.030); Urine Bacteria <20 /HPF (<20); Urine Bilirubin NEGATIVE (Negative); Urine Blood 1+ (Negative); Urine Clarity Extremely Turbid (Clear); Urine Color Light-Yellow (Yellow); Urine Crystals Unidentified Few /HPF (None Seen); Urine Glucose NEGATIVE (Negative); Urine Mucus Slight /HPF (None Seen); Urine Protein NEGATIVE (Negative); Urine RBC <5 /HPF (None Seen); Urine Urobilinogen Normal (Normal)
[2023-03-04] MEDS: MAGNESIUM OXIDE 400 MG TAB PO SCH (21:17)
[2023-03-04] MEDS: GUAIFENESIN 600 MG SA TAB PO SCH (21:17)
[2023-03-04] MEDS: FERROUS SULFATE 325 MG TAB PO SCH (21:17)
[2023-03-04] MEDS: APIXABAN 2.5 MG TABLET PO SCH (21:18)
[2023-03-05] MEDS: TRAMADOL HCL 50 MG TAB PO PRN (00:03)
[2023-03-05 04:10] LABS: Absolute Lymphocytes (CBC) 1.9 K/uL (0.7-4.9); Hematocrit 26.6 % (36.0-45.0); Lymphocytes % 22.4 % (15.3-44.8); MCV 90.4 fL (80-100); MPV 6.4 fL (7.6-11.3); RBC Red Blood Cell Count 2.95 M/uL (3.86-4.86)
[2023-03-05 04:34] LABS: Albumin 2.4 g/dL (3.4-5.0); Magnesium 2.1 mg/dL (1.6-2.4); Potassium 3.8 mEq/L (3.5-5.1); Prealbumin 14.4 mg/dL (20-40)
[2023-03-05] MEDS: METOPROLOL XL 25 MG TAB PO SCH (06:19)
[2023-03-05] MEDS: LEVOTHYROXINE SOD 0.075 MG TAB PO SCH (06:19)
[2023-03-05] MEDS: PANTOPRAZOLE 40MG TABLET PO SCH ×2 (07:12→16:44)
[2023-03-05] MEDS ORDERED: AMLODIPINE 2.5 MG TAB PO SCH (08:00)
[2023-03-05] MEDS ORDERED: LIDOCAINE 4% PATCH TOP SCH (08:00)
[2023-03-05] MEDS: APIXABAN 2.5 MG TABLET PO SCH ×2 (09:05→20:53)
[2023-03-05] MEDS: FLUOXETINE 10 MG CAP PO SCH (09:05)
[2023-03-05] MEDS: CYANOCOBALAMIN 1,000 MCG TAB PO SCH (09:05)
[2023-03-05] MEDS: FERROUS SULFATE 325 MG TAB PO SCH ×2 (09:05→20:53)
[2023-03-05] MEDS: FOLIC ACID 1 MG TABLET PO SCH (09:06)
[2023-03-05] MEDS: FUROSEMIDE 40 MG TABLET PO SCH (09:06)
[2023-03-05] MEDS: ACETAMINOPHEN 500 MG TAB PO PRN (09:07)
[2023-03-05] MEDS: MAGNESIUM OXIDE 400 MG TAB PO SCH ×2 (09:45→20:54)
[2023-03-05] MEDS: GABAPENTIN 100 MG CAP PO SCH ×2 (11:27→20:53)
[2023-03-05] MEDS: GUAIFENESIN 600 MG SA TAB PO SCH (20:53)
[2023-03-05] MEDS: D MANNOSE PO SCH (20:54)
[2023-03-05] MEDS: JUVEN PACKET PO SCH (20:55)
--- NOTE | 2023-03-06 00:56 | HP ---
Date of Admission: 03/04/2023 Time Of Service: 9 a.m. Chief Complaint: "I fell and broke my left hip and my left arm, it is also hurting." History Of Present Illness: Ms. Gray is an 88-year-old right-handed patient with atrial fi brillation, coronary artery disease, chronic diastolic congestive heart failure, hypertension, chroni c kidney disease stage 3, and gastroesophageal reflux who came to [facility] with leg and ar m pain after a fall on 02/21. She was initially seen at an outside facility and discharged home. Ho wever, she had more pain in the left arm and there was a suspected periprosthetic intertrochanteric f racture in the left hip where she also had pain. She was unable to ambulate due to significant pain. She came back to the emergency room where she was evaluated by CT scan of the abdomen and pelvis, w hich identified a subacute comminuted avulsion fracture in the greater trochanter on the left and mar ked amount of stool in the colon. She did receive IV medications, treated for congestive heart failu re, management of hypertension, and atrial fibrillation. However, due to significant pain in the lef t arm and leg, she is unable to ambulate and safely perform activities of daily living and therefore, she was determined to be a more appropriate candidate given her complex medical conditions for [facility] rehabilitation. Past Medical History: Atrial fibrillation, chronic diastolic congestive heart failure, hypertension, stage 3 kidney disease, gastroesophageal reflux disease. Allergies: CODEINE, NITROFURANTOIN, AND PENICILLIN ALONG WITH LATEX AND SULFA. Medications: Tylenol 500 mg every 6 hours, Eliquis 2.5 mg twice daily, Dulcolax 10 per rectum as nee ded, B12 1000 mcg daily, ferrous sulfate 325 mg twice daily, Prozac 10 mg daily, folic acid 1 mg lily y, Lasix 40 mg daily, gabapentin 100 mg twice daily, Mucinex 60 mg at bedtime, Synthroid 0.075 mg gia ly, lidocaine 2 patches apply daily, magnesium oxide 400 mg twice daily, melatonin 5 mg at bedtime as needed, Toprol-XL 25 mg daily, Zofran 4 mg every 6 hours as needed, Protonix 40 mg twice daily, Ultr am 50 mg every 6 hours. Family History: Mother had cancer and father had stroke. Social History: No alcohol, tobacco, or IV drug use. Laboratory Studies: White blood cell 8.6, hemoglobin 8.9, platelets 529. Sodium 131, potassium 3.8, chloride 94, carbon dioxide 34, BUN 36, creatinine 0.96, prealbumin 14.4. Urinalysis shows extremel y turbid clarity, 1+ blood, 500 esterase, bacteria less than 20, nitrite negative. X-ray/imaging: On 03/01/2023, CT scan of the abdomen reveals subacute comminuted avulsive fracture w ith greater trochanteric femur and a marked amount of stool throughout the colon. Review of Systems: Ms. Gray does report some left arm pain where she fell and also hit the left arm and, of course, wher e she has a femur fracture in the left hip area and thigh. She has pain patches as noted and multipl e medications for pain in addition to gabapentin. Otherwise, no fevers, no chills. She does have my algias and arthralgias. No rash. No headache. No psychiatric issues. Mild issues of shortness of breath with exertion and no chest pain or significant abdominal pain, but she is constipated. Physical Examination: Vital Signs: Blood pressure 110/55, pulse 65, respiratory rate 16, temperature 97.4, oxygen saturati on 98%. General: Ms. Gray is sitting in a chair beside the bed. She does appear normocephalic and atraumati c. She is holding her left arm across the chest with some pain in the proximal and distal left arm. She does favor the left hip by sitting more on the right. Her general exam otherwise, with no signi ficant edema in the extremities. Neurologic: She is alert and oriented. She responds appropriately to communication. No aphasia det ected. On motor examination, giveaway strength, which is at least 4 in the left upper extremity and also in the left lower extremity. On the right upper and lower extremities, no focal weakness there. No sensory loss and with gait, she will be ambulated with the physical therapist with a gait belt b eing used. Current Level Of Functioning: Currently with moderate assistance for toileting, showering, maximal a ssistance for upper and lower body dressing, as well as donning and doffing footwear. Maximum assist ance from rolling left to right and right to left, maximum assistance during [id number] with a slid e on the side of the bed. She is dependent from sit to stand and chair transfer to bed also dependen t, maximum assistance for toilet transfers. She is unable to ambulate at this point at least as of y et. We will attempt a rolling walker and use a wheelchair for mobilization until she can stand and a ttempt to take steps. Rehab And Medical Assessment And Plan: Ms. Gray is admitted to the rehabilitation unit with an impai rment category of 07 orthopedic, lower extremity fracture. Her impairment group code is 08.11, statu s post unilateral hip fracture. Etiologic diagnosis, left femur fracture and her comorbidities are a trial fibrillation, decrease in physical functioning, congestive heart failure, essential hypertensio n, hypothyroidism, osteoporosis, gastroesophageal reflux disease, and aggressive left femur fracture. Plan: 1.She will have physical and occupational therapy along with speech therapy if needed for 3.5 hours, 5 of 7 days. 2.Her multiple comorbid conditions which are outlined above will be addressed by continuing medicati ons, which are Eliquis 2.5 mg twice daily for DVT prophylaxis; Dulcolax for constipation in addition to milk of Mag as appropriate if she still is constipated; melatonin for insomnia; and Toprol-XL, Las ix together will be used for hypertension; ferrous sulfate and vitamin B12 for her anemia. Synthroid for hyperthyroidism and lidocaine patch will be applied to the left hip and arm where she has pain. Impact Of Comorbidities: She has pain in the left arm and in the hip where she has a periprosthetic issue with the fracture and those do limit her significantly and at this point not able to stand and ambulate. Pain will be mitigated by adjusting neuro modulators and pain patches and tramadol along w ith judicious use of narcotic medications. She is retaining large amount of stool and will have supp ositories as appropriate to help with that. Rehab Specific Plan: 1.Ms. Gray will have 3.5 hours of physical, occupational, and speech therapy, 5 of 7 days. 2.She will have retirement on daily basis as appropriate per shift for addressing issues relate d to potential infection, her lung function, renal function, to follow hemoglobin and hematocrit and administer home medications. 3.Ms. Gray has a good understanding of the process of admission to the inpatient rehabilitation faci lity. She will require at least 2 of the disciplines which is physical and occupational therapy and likely speech therapy as well to improve into the best. In addition, services such as a Pulmonary Se rvice, Renal Service, Nutrition Services, Wound Care Service will be consulted. 4.Given her complex medical condition and further risk of complication, rehabilitation cannot be saf ibrahima or affectively performed at a lower level facility such as retirement. Barriers To Discharge: At this point, her pain is a significant barrier making it difficult for her to stand and ambulate. Otherwise, medications are going to be adjusted for that and her comorbiditie s. Length Of Stay: About 14 days. Disposition: Home with family. Prognosis: Fair. Rehabilitation Goals: 1.To become at a supervision level at minimum upper and lower body dressing, transferring, toileting , and performing activities of daily living with modified independence. 2.Be able to mobilize a wheelchair 250 feet with modified independence. 3.Be able to do at least household distances perhaps with min assist at least 50 feet and attempts t o go up and down at least 5 steps with min assist. 4.Perform cognitive functioning and safety awareness issues with supervision. 5.I have reviewed goals with Ms. Gray and she is in agreement. I acknowledge I personally performed a full physical examination on Ms. Gray within 24 hours of admis roel to the inpatient rehabilitation facility and determined that she is able to tolerate the above c ourse of treatment at an intensive level for a reasonable period of time. A detailed individualized plan of care for her will be completed by hospital day 4 based on the preadmission screen history and physical and therapy evaluations. PRACHI/LIDIA Voice ID: [id number]
[2023-03-06 04:49] LABS: Absolute Lymphocytes (CBC) 1.6 K/uL (0.7-4.9); Hematocrit 26.4 % (36.0-45.0); Lymphocytes % 20.6 % (15.3-44.8); MPV 6.6 fL (7.6-11.3)
[2023-03-06] MEDS: LEVOTHYROXINE SOD 0.075 MG TAB PO SCH (05:08)
[2023-03-06] MEDS: METOPROLOL XL 25 MG TAB PO SCH (05:08)
[2023-03-06 05:25] LABS: Albumin 2.4 g/dL (3.4-5.0); Magnesium 2.4 mg/dL (1.6-2.4); Potassium 4.2 mEq/L (3.5-5.1); Prealbumin 14.8 mg/dL (20-40)
[2023-03-06] MEDS: FE SULF/FA/VIT B COMP & C TAB PO SCH (08:56)
[2023-03-06] MEDS: FERROUS SULFATE 325 MG TAB PO SCH ×2 (08:56→20:42)
[2023-03-06] MEDS: GABAPENTIN 100 MG CAP PO SCH ×2 (08:56→20:42)
[2023-03-06] MEDS: FOLIC ACID 1 MG TABLET PO SCH (08:57)
[2023-03-06] MEDS: FLUOXETINE 10 MG CAP PO SCH (08:57)
[2023-03-06] MEDS: ACETAMINOPHEN 500 MG TAB PO PRN ×2 (08:57→20:42)
[2023-03-06] MEDS: CYANOCOBALAMIN 1,000 MCG TAB PO SCH (08:57)
[2023-03-06] MEDS: APIXABAN 2.5 MG TABLET PO SCH ×2 (08:57→20:42)
[2023-03-06] MEDS: FUROSEMIDE 40 MG TABLET PO SCH (08:57)
[2023-03-06] MEDS: LIDOCAINE 4% PATCH TOP SCH (09:00)
[2023-03-06] MEDS: PANTOPRAZOLE 40MG TABLET PO SCH ×2 (09:02→17:16)
[2023-03-06] MEDS: MAGNESIUM OXIDE 400 MG TAB PO SCH ×2 (10:59→20:42)
[2023-03-06] MEDS: JUVEN PACKET PO SCH ×2 (10:59→20:00)
[2023-03-06] MEDS: TRAMADOL HCL 50 MG TAB PO PRN (15:10)
[2023-03-06] MEDS: GUAIFENESIN 600 MG SA TAB PO SCH (20:42)
[2023-03-06] MEDS: D MANNOSE PO SCH (20:43)
[2023-03-06] MEDS: CRANBERRY FRUIT EXTRACT 200 MG CAP PO SCH (20:44)
[2023-03-07] MEDS: METOPROLOL XL 25 MG TAB PO SCH (05:05)
[2023-03-07] MEDS: LEVOTHYROXINE SOD 0.075 MG TAB PO SCH (05:05)
[2023-03-07] MEDS: LIDOCAINE 4% PATCH TOP SCH (07:27)
[2023-03-07] MEDS: CYANOCOBALAMIN 1,000 MCG TAB PO SCH (07:27)
[2023-03-07] MEDS: CRANBERRY FRUIT EXTRACT 200 MG CAP PO SCH ×2 (07:27→20:06)
[2023-03-07] MEDS: APIXABAN 2.5 MG TABLET PO SCH ×2 (07:27→20:06)
[2023-03-07] MEDS: PANTOPRAZOLE 40MG TABLET PO SCH ×2 (07:27→15:53)
[2023-03-07] MEDS: FERROUS SULFATE 325 MG TAB PO SCH ×2 (07:28→20:06)
[2023-03-07] MEDS: FE SULF/FA/VIT B COMP & C TAB PO SCH (07:28)
[2023-03-07] MEDS: FUROSEMIDE 40 MG TABLET PO SCH (07:28)
[2023-03-07] MEDS: GABAPENTIN 100 MG CAP PO SCH ×2 (07:29→20:07)
[2023-03-07] MEDS: MAGNESIUM OXIDE 400 MG TAB PO SCH ×2 (07:29→20:07)
[2023-03-07] MEDS: FLUOXETINE 10 MG CAP PO SCH (07:29)
[2023-03-07] MEDS: JUVEN PACKET PO SCH ×3 (07:29→20:06)
[2023-03-07] MEDS: ACETAMINOPHEN 500 MG TAB PO PRN ×2 (07:34→15:04)
[2023-03-07] MEDS: FOLIC ACID 1 MG TABLET PO SCH (07:38)
--- NOTE | 2023-03-07 14:01 | P.RH.PN ---
Estimated Length of Stay: 16 Expected Discharge Date: 03/15/23 Discharge Disposition Plan: Home Family Support: Yes Penitentiary Goal: Mobility, Transfers, Self Care Vital Signs: Last Vital Signs Temp 97.4 F 03/07/23 07:35 Pulse 63 03/07/23 07:35 Resp 16 03/07/23 07:35 BP 165/81 H 03/07/23 07:35 Pulse Ox 99 03/07/23 07:35 Laboratory: Laboratory Last Values WBC 8.00 thou/uL (4.3-10.9) 03/06/23 03:55 RBC 2.90 M/uL (3.86-4.86) L 03/06/23 03:55 Hgb 8.8 g/dL (12.0-15.0) L 03/06/23 03:55 Hct 26.4 % (36.0-45.0) L 03/06/23 03:55 MCV 91.0 fL (80-100) 03/06/23 03:55 MCH 30.2 pg (27.0-35.0) 03/06/23 03:55 MCHC 33.2 g/dL (32.0-36.0) 03/06/23 03:55 RDW 14.4 % (12.1-15.2) 03/06/23 03:55 Plt Count 490 thou/uL (152-406) H 03/06/23 03:55 MPV 6.6 fL (7.6-11.3) L 03/06/23 03:55 Neutrophils % 64.9 % (41.7-73.7) 03/06/23 03:55 Lymphocytes % 20.6 % (15.3-44.8) 03/06/23 03:55 Monocytes % 11.0 % (3.3-12.3) 03/06/23 03:55 Eosinophils % 2.7 % (0-4.4) 03/06/23 03:55 Basophils % 0.8 % (0-1.3) 03/06/23 03:55 Absolute Neutrophils 5.2 K/uL (1.8-8.0) 03/06/23 03:55 Absolute Lymphocytes 1.6 K/uL (0.7-4.9) 03/06/23 03:55 Absolute Monocytes 0.9 K/uL (0.1-1.3) 03/06/23 03:55 Absolute Eosinophils 0.2 K/uL (0-0.5) 03/06/23 03:55 Absolute Basophils 0.1 K/uL (0-0.5) 03/06/23 03:55 Sodium 132 mEq/L (136-145) L 03/06/23 03:55 Potassium 4.2 mEq/L (3.5-5.1) 03/06/23 03:55 Chloride 98 mEq/L (98-107) 03/06/23 03:55 Carbon Dioxide 34 mEq/L (21-32) H 03/06/23 03:55 Anion Gap 4.2 mEq/L (5.0-15.0) L 03/06/23 03:55 BUN 43 mg/dL (7-18) H 03/06/23 03:55 Creatinine 1.05 mg/dL (0.55-1.02) H 03/06/23 03:55 Est GFR (CKD-EPI) 51 ml/min (=/>90) L 03/06/23 03:55 Glucose 111 mg/dL (74-106) H 03/06/23 03:55 Calcium 9.1 mg/dL (8.5-10.1) 03/06/23 03:55 Magnesium 2.4 mg/dL (1.6-2.4) 03/06/23 03:55 Albumin 2.4 g/dL (3.4-5.0) L 03/06/23 03:55 Prealbumin 14.8 mg/dL (20-40) L 03/06/23 03:55 Urine Color Light-yellow (Yellow) 03/04/23 19:45 Urine Clarity Extremely turbid (Clear) H 03/04/23 19:45 Urine pH 6.0 (5.0-7.0) 03/04/23 19:45 Ur Specific [place] 1.012 (1.005-1.030) 03/04/23 19:45 Glucose (UA)(Auto) Negative (Negative) 03/04/23 19:45 Urine Ketones Negative (Negative) 03/04/23 19:45 Urine Blood 1+ (Negative) H 03/04/23 19:45 Urine Nitrite Negative (Negative) 03/04/23 19:45 Urine Bilirubin Negative (Negative) 03/04/23 19:45 Urine Urobilinogen Normal (Normal) 03/04/23 19:45 Ur Leukocyte Esterase 500 Donna/uL (Negative) H 03/04/23 19:45 Urine RBC <5 /HPF (None Seen) 03/04/23 19:45 Urine WBC <5 /HPF (<5) 03/04/23 19:45 Ur Squamous Epith Cells <5 /HPF (None Seen) 03/04/23 19:45 Unidentified Crystals Few /HPF (None Seen) 03/04/23 19:45 Urine Bacteria <20 /HPF (<20) 03/04/23 19:45 Urine Mucus Slight /HPF (None Seen) 03/04/23 19:45 Urine Culture Reflexed Not needed 03/04/23 19:45 Urine Total Protein Negative (Negative) 03/04/23 19:45 Weight: 111 lb Wound Present: No Closed Surgical Incision Present: No Negative Pressure Wound Therapy Present: No Physician Update: Still has significant pain. Only walked 3' with max assistance. Wheelchair 50' with mod assistance. Mod to max assistance with ADLs and transfers. Labs reviewed and are stable. Summary: Patient's care plan and intermediate designer goals have been reviewed and revised as necessary. Please see the Rehabilitation Signature page for all necessary signatures.
[2023-03-07] MEDS: TRAMADOL HCL 50 MG TAB PO PRN (15:03)
[2023-03-07] MEDS: LOPERAMIDE HCL 2 MG CAPSULE PO PRN (15:54)
[2023-03-07] MEDS: GUAIFENESIN 600 MG SA TAB PO SCH ×2 (20:06→20:20)
[2023-03-07] MEDS: D MANNOSE PO SCH (20:08)
[2023-03-08] MEDS: METOPROLOL XL 25 MG TAB PO SCH (05:37)
[2023-03-08] MEDS: LEVOTHYROXINE SOD 0.075 MG TAB PO SCH (05:37)
[2023-03-08] MEDS: PANTOPRAZOLE 40MG TABLET PO SCH ×2 (08:04→16:59)
[2023-03-08] MEDS: LIDOCAINE 4% PATCH TOP SCH (08:05)
[2023-03-08] MEDS: MAGNESIUM OXIDE 400 MG TAB PO SCH ×2 (08:05→19:02)
[2023-03-08] MEDS: FERROUS SULFATE 325 MG TAB PO SCH ×2 (08:05→19:02)
[2023-03-08] MEDS: FE SULF/FA/VIT B COMP & C TAB PO SCH (08:05)
[2023-03-08] MEDS: CRANBERRY FRUIT EXTRACT 200 MG CAP PO SCH ×2 (08:05→19:02)
[2023-03-08] MEDS: FOLIC ACID 1 MG TABLET PO SCH (08:05)
[2023-03-08] MEDS: APIXABAN 2.5 MG TABLET PO SCH ×2 (08:06→19:02)
[2023-03-08] MEDS: GABAPENTIN 100 MG CAP PO SCH ×2 (08:06→19:02)
[2023-03-08] MEDS: FUROSEMIDE 40 MG TABLET PO SCH (08:06)
[2023-03-08] MEDS: FLUOXETINE 10 MG CAP PO SCH (08:15)
[2023-03-08] MEDS: CYANOCOBALAMIN 1,000 MCG TAB PO SCH (08:15)
[2023-03-08] MEDS: JUVEN PACKET PO SCH ×2 (08:15→19:03)
[2023-03-08] MEDS: ACETAMINOPHEN 500 MG TAB PO PRN (19:02)
[2023-03-08] MEDS: GUAIFENESIN 600 MG SA TAB PO SCH (19:02)
[2023-03-08] MEDS: D MANNOSE PO SCH (19:03)
[2023-03-08] MEDS: TRAMADOL HCL 50 MG TAB PO PRN (20:35)
[2023-03-09] MEDS: METOPROLOL XL 25 MG TAB PO SCH (05:54)
[2023-03-09] MEDS: LEVOTHYROXINE SOD 0.075 MG TAB PO SCH (06:15)
[2023-03-09] MEDS: FERROUS SULFATE 325 MG TAB PO SCH ×2 (07:41→20:42)
[2023-03-09] MEDS: LIDOCAINE 4% PATCH TOP SCH (07:41)
[2023-03-09] MEDS: FUROSEMIDE 40 MG TABLET PO SCH (07:41)
[2023-03-09] MEDS: PANTOPRAZOLE 40MG TABLET PO SCH ×2 (07:41→17:26)
[2023-03-09] MEDS: FLUOXETINE 10 MG CAP PO SCH (07:42)
[2023-03-09] MEDS: CRANBERRY FRUIT EXTRACT 200 MG CAP PO SCH ×2 (07:42→20:42)
[2023-03-09] MEDS: FOLIC ACID 1 MG TABLET PO SCH (07:42)
[2023-03-09] MEDS: FE SULF/FA/VIT B COMP & C TAB PO SCH (07:42)
[2023-03-09] MEDS: GABAPENTIN 100 MG CAP PO SCH ×2 (07:42→20:42)
[2023-03-09] MEDS: CYANOCOBALAMIN 1,000 MCG TAB PO SCH (07:42)
[2023-03-09] MEDS: APIXABAN 2.5 MG TABLET PO SCH ×2 (07:43→20:42)
[2023-03-09] MEDS: JUVEN PACKET PO SCH ×2 (07:44→20:00)
[2023-03-09] MEDS: MAGNESIUM OXIDE 400 MG TAB PO SCH ×2 (07:44→20:43)
[2023-03-09] MEDS: TRAMADOL HCL 50 MG TAB PO PRN (14:36)
--- NOTE | 2023-03-09 19:59 | PN ---
Date of Progress Note: 03/09/2023 [id number] progress note visit. Time Of Service: 2 p.m. Subjective: Ms. Gray is resting comfortably. She denies any significant pain in the left hip surgic al site as she is resting today. Review of Systems: No fevers, chills. No significant myalgias, arthralgias, rash, headache, weight change. No psychiat rachel issues, gastrointestinal or genitourinary issues. Physical Examination: Vital Signs: Blood pressure 134/60, pulse 67, respiratory rate 16, temperature 97.2, oxygen saturati on 94%. General: Ms. Gray is resting in bed, in no significant distress. HEENT: She is normocephalic, atraumatic. Sclerae anicteric. Extremities: No significant clubbing or cyanosis. Mild edema in the left lower extremity that is we ll managed. No focal neurological deficits. Giveaway weakness on the left side due to hip fracture and surgery. Laboratory Studies: White blood cell count 8, hemoglobin 8.8, platelets 490. Sodium 132, potassium 4.2, creatinine 1.05 which did increase from 03/05 from 0.96 and 1.05 on 03/06. Prealbumin 14.8, alb umin 2.4, calcium 9.1, magnesium 2.4. Urinalysis on the showed extreme turbidity, 1+ blood, 500 esterase, and her urinalysis and cultures did grow gram-negative rods, greater than 100,000 colony-f orming units with sensitivity pending. X-rays/imaging: No new x-rays or imaging. Medications: Tylenol 500 mg every 4 hours as needed, Eliquis 2.5 mg twice daily, Dulcolax 10 mg per rectum for constipation, vitamin B12 1000 mcg daily, ferrous sulfate 325 mg twice daily, Prozac 10 mg daily, folic acid 1 mg daily, Lasix 40 mg daily, gabapentin 100 mg twice daily, Mucinex 600 mg at be dtime, Josse 1 packet twice daily, Synthroid 0.075 mg twice daily, lidocaine patch apply topically da sayda, Imodium 2 mg as needed for diarrhea daily, magnesium oxide 400 mg twice daily, melatonin 5 mg at bedtime, Hemocyte Plus 1 tablet with breakfast, Toprol-XL 25 mg daily, Zofran 4 mg every 6 hours as needed, Protonix 40 mg twice daily, tramadol 50 mg every 6 hours as needed. Current Functional Status: Ms. Gray was able to ambulate with a quad cane 50 feet once with minimal assistance to contact guard assistance, verbal cues needed. Bilateral lower extremity exercises done with 20 sets repetition. She did roll over the bed left and right with minimal assistance. With oc cupational therapy, she completed oral hygiene with standby assistance, transfer from supine to edge of bed with minimum assistance. To stand, she was with contact guard assistance with a front wheel w alker. Progress Towards Rehabilitation Goals: Ms. Gray is making fair progress towards her goals of becomin g independent with upper and lower body dressing, transferring, toileting, showering, ambulating 250 feet with modified independence, up and down 5 steps with modified independence and continuing her co gnitive functioning independently. Assessment: Ms. Gray is an 88-year-old patient in the rehabilitation unit with left hip fracture sta tus post surgical repair, who is making fair progress overall with her physical and weather stripper apy. She has comorbid hypothyroidism, congestive heart failure, essential hypertension, osteoporosis , GE reflux. Plan: 1.Continue with physical and occupational therapy and as needed speech therapy. 2.Continue with Eliquis for DVT prophylaxis, Dulcolax for constipation, magnesium for muscle impaire d relaxation, Toprol and Lasix for blood pressure, ferrous sulfate, B12 and protein supplementation f or anemia, Synthroid for hypothyroidism, lidocaine patch for pain, and continue with Synthroid again for hypothyroidism. Comorbidities That Continue To Impact Rehabilitation: She does have multiple comorbidities, which ar e managed by medications as noted above and she is doing fairly well with that. They are not negatively impacting her rehabilitation clif zhou. PRACHI/LIDIA Voice ID: [id number] Report ID: [id number]
[2023-03-09] MEDS: GUAIFENESIN 600 MG SA TAB PO SCH (20:42)
[2023-03-09] MEDS: D MANNOSE PO SCH (20:43)
[2023-03-09] MEDS: LOPERAMIDE HCL 2 MG CAPSULE PO PRN (20:44)
[2023-03-10] MEDS: METOPROLOL XL 25 MG TAB PO SCH (06:00)
[2023-03-10] MEDS: LEVOTHYROXINE SOD 0.075 MG TAB PO SCH (06:30)
[2023-03-10] MEDS: TRAMADOL HCL 50 MG TAB PO PRN ×2 (07:15→13:21)
[2023-03-10] MEDS: PANTOPRAZOLE 40MG TABLET PO SCH ×2 (07:30→16:55)
[2023-03-10] MEDS: CYANOCOBALAMIN 1,000 MCG TAB PO SCH (08:00)
[2023-03-10] MEDS: FUROSEMIDE 40 MG TABLET PO SCH (08:00)
[2023-03-10] MEDS: APIXABAN 2.5 MG TABLET PO SCH ×2 (08:00→20:24)
[2023-03-10] MEDS: FLUOXETINE 10 MG CAP PO SCH (08:00)
[2023-03-10] MEDS: FERROUS SULFATE 325 MG TAB PO SCH ×2 (08:00→20:23)
[2023-03-10] MEDS: FE SULF/FA/VIT B COMP & C TAB PO SCH (08:00)
[2023-03-10] MEDS: FOLIC ACID 1 MG TABLET PO SCH (08:00)
[2023-03-10] MEDS: MAGNESIUM OXIDE 400 MG TAB PO SCH ×2 (08:00→20:24)
[2023-03-10] MEDS: GABAPENTIN 100 MG CAP PO SCH ×2 (08:00→20:23)
[2023-03-10] MEDS: JUVEN PACKET PO SCH ×2 (08:00→20:00)
[2023-03-10] MEDS: CRANBERRY FRUIT EXTRACT 200 MG CAP PO SCH ×2 (08:00→20:23)
[2023-03-10] MEDS: LIDOCAINE 4% PATCH TOP SCH (09:52)
[2023-03-10 12:51] LABS: C.diff Antigen/Toxin Ag neg : Tox neg (NEG : NEG)
[2023-03-10] MEDS: GUAIFENESIN 600 MG SA TAB PO SCH (20:23)
[2023-03-10] MEDS: D MANNOSE PO SCH (20:24)
--- NOTE | 2023-03-10 22:02 | CON ---
Date of Consultation: 03/10/2023 Reason For Consultation: Diarrhea. History Of Present Illness: Patient is an 88-year-old female, who has a complicated past medical his tory with multiple abdominal surgeries with the most recent being the correction of organoaxial gastr ic volvulus by Dr. Hernandez that was in March of last year. Recently, patient fell and broke her lef t arm and left hip, underwent surgery. She was in rehab. She did have some issues with constipation last week, but she started having some diarrhea last night and this morning and patient requested th at Dr. Hernandez come and see her. That time, I was asked to come and evaluate this patient. She is a wake, alert, hungry, and denies any nausea or vomiting. No more pain except last time when she was h aving some discomfort going to the bathroom. She did have a CAT scan done on March 01 and it did eun w some constipation. There were no other significant findings. Patient's vitals have remained stabl e. She is tolerating diet. Her pain is better and her diarrhea appears to have slowed down. Stool cultures are still pending. There was no sore throat, runny nose, cough, headaches, or dizziness. N o chest pain. No fever or chills. Review of Systems: Otherwise unremarkable. Past Medical History: Significant for hypertension; AFib, on Eliquis; GERD; chronic kidney disease; chronic renal disease; hyperthyroidism. Past Surgical History: Includes 2 fundoplications and possible paraesophageal hernia repair and plac ement of G-tube by Dr. Hernandez last year. She had a history of heart catheterization; cholecystectom y; hysterectomy; right knee and right hip surgery, recently on the left side hip surgery; and bladder stimulator placement. Allergies: INCLUDE CODEINE, MACROBID, PENICILLIN, SULFA, AND LATEX. Social History: The patient currently does not smoke or drink alcohol. Physical Examination: VITAL SIGNS: Stable. She is afebrile. General: She is awake, alert, and oriented x3. Head and Neck: No masses. Chest: Clear. Heart: S1 and S2. Abdomen: Soft, nondistended, nontender. Positive bowel sounds. No abdominal wall hernia appreciate d. Extremity: Adequately perfused. Nontender. Neuro: Nonfocal. Assessment: An 88-year-old female with multiple medical problems, and a recent episode of diarrhea, probably gastroenteritis could be a result of constipation and her constipation is slowly resolving. We will await the cultures that were done. If they are positive, GI service can help manage this. There is no need for any surgical intervention at this time. This was explained to the patient and s he was in agreement with the plan of care as detailed to her. Please re-consult Surgery pjaycob VELASQUEZ/LIDIA Voice ID: [id number] Report ID: [id number]
--- NOTE | 2023-03-11 02:41 | PN ---
Date of Progress Note: 03/10/2023 Time Of Service: 1:30 p.m. Subjective: Ms. Gray is resting in bed. She has no new complaints. Surgical site shows good hemost asis. No complaints. Review of Systems: No significant fevers, chills, myalgias, arthralgias, rash, headache, weight change. She has good he mostasis at the left hip surgical site. Physical Examination: Vital Signs: Blood pressure 103/57, pulse 77, respiratory rate 16, temperature 98.1, oxygen saturati on 95%. General: Ms. Gray is resting in bed in between therapy sessions. She has no significant complaints as noted, doing better. is at the bedside. She is ambulating better distances, mobilizing i n a wheelchair well. Again, no focal deficits except there is some give-way weakness in the left low er extremity, where she has had a left hip arthroplasty. Laboratory Studies: No new laboratory studies. X-ray/imaging: No new x-rays or imaging. Medications: Medications have been reviewed and remained unchanged. Current Functional Status: With rehabilitation, she is able to continue nonweightbearing status on t he left lower extremity. She did self propel a wheelchair 60 feet with the right upper extremity and bilateral lower extremities. She did ambulate 50 feet with contact guard assistance. She continues to be a moderate fall risk. Moderate assistance needed for sit to stand x4. With per diem physical therapist apy, maximum assistance for toilet hygiene, to pull up briefs. Extra time for transfer due to poor v ision and some dizziness as she is attempting transfer. Progress Towards Rehabilitation Goals: Ms. Gray is making slow progress overall with her goals of be coming a min assist level for mobilization towards modified independence level, for wheelchair mobili zation, and to ambulate 50 feet at a minimum with contact guard to supervision assistance level. She is somewhat limited by the nonweightbearing status on the left lower extremity. Assessment: Ms. Gray is an 88-year-old patient in the rehabilitation unit with left hip fracture, st atus post surgical repair, who is making more slow than fair progress with physical and occupational therapy. She does have essential hypertension, congestive heart failure, gastroesophageal reflux, os teoporosis, hypothyroidism. Plan: 1.Continue physical and occupational therapy 3 hours a day, 5 of 7 days. 2.Continue with multiple comorbid condition medications as noted including Synthroid for hypothyroid ism. She will continue lidocaine patches for pain; Toprol and Lasix for blood pressure management; f errous sulfate; B12 and protein supplementation for anemia; Eliquis for DVT prophylaxis; magnesium fo r impaired muscle relaxation and prophylaxis for constipation. Comorbidities That Continue To Impact The Rehabilitation: Her major challenge in the left hip with n onweightbearing status is making difficult for her to do well as upper body strength is weak and she is working to strengthen that. Comorbidities are managed well and do not negatively impact her abili ty to do well. LB/MODL Voice ID: [id number] Report ID: [id number]
[2023-03-11] MEDS: METOPROLOL XL 25 MG TAB PO SCH (05:28)
[2023-03-11] MEDS: LEVOTHYROXINE SOD 0.075 MG TAB PO SCH (06:22)
[2023-03-11] MEDS: JUVEN PACKET PO SCH ×2 (08:00→20:00)
[2023-03-11] MEDS: LIDOCAINE 4% PATCH TOP SCH (08:07)
[2023-03-11] MEDS: CYANOCOBALAMIN 1,000 MCG TAB PO SCH (08:07)
[2023-03-11] MEDS: FE SULF/FA/VIT B COMP & C TAB PO SCH (08:07)
[2023-03-11] MEDS: PANTOPRAZOLE 40MG TABLET PO SCH ×2 (08:07→16:44)
[2023-03-11] MEDS: FLUOXETINE 10 MG CAP PO SCH (08:07)
[2023-03-11] MEDS: FERROUS SULFATE 325 MG TAB PO SCH ×2 (08:08→20:01)
[2023-03-11] MEDS: FUROSEMIDE 40 MG TABLET PO SCH (08:08)
[2023-03-11] MEDS: MAGNESIUM OXIDE 400 MG TAB PO SCH ×2 (08:08→20:00)
[2023-03-11] MEDS: FOLIC ACID 1 MG TABLET PO SCH (08:08)
[2023-03-11] MEDS: APIXABAN 2.5 MG TABLET PO SCH ×2 (08:08→20:01)
[2023-03-11] MEDS: GABAPENTIN 100 MG CAP PO SCH ×2 (08:08→20:01)
[2023-03-11] MEDS: CRANBERRY FRUIT EXTRACT 200 MG CAP PO SCH ×2 (08:08→20:00)
[2023-03-11] MEDS: TRAMADOL HCL 50 MG TAB PO PRN (08:33)
[2023-03-11] MEDS: MECLIZINE HCL 12.5 MG TAB PO PRN (14:21)
[2023-03-11] MEDS: GUAIFENESIN 600 MG SA TAB PO SCH (20:00)
[2023-03-11] MEDS: D MANNOSE PO SCH (20:02)
--- NOTE | 2023-03-12 01:26 | PN ---
Date of Progress Note: 03/11/2023 Time Of Service: 1:30 p.m. Subjective: Ms. Gray is resting in bed. No additional issues such as active GI issues and she was s een by the surgeon, Dr. Vela, who is covering for Dr. Hernandez, who is out of town. His evaluation i s that the patient did have recent episode of diarrhea, probably gastroenteritis, could result consti pation, which has started resolving. He determined that she did not require any surgical interventio n and she is in agreement with the plan. Review of Systems: Again, stool habitus is improving. No new complaints there. No myalgias, arthralgias. No rash, hea dache, weight change. Her left hip surgical site is doing well. No loss of blood or exudate from th e area. Mild edema in the lower and upper left extremities. Physical Examination: Vital Signs: Blood pressure 135/63, pulse 89, respiratory rate 18, temperature 99, oxygen saturation 92%. General: Ms. Gray is resting comfortably. No significant distress. Again, making fair progress ove rall. HEENT: She is normocephalic, atraumatic. Sclerae anicteric. Extremities: She does have some mild edema in the left lower extremity where she has good hemostasis of the left hip surgical site. Again she saw Dr. Vela, covering for Dr. Hernandez. No active issues requiring surgery in the GI trac t. Laboratory Studies: No new laboratory studies. X-ray/imaging: No new x-rays or imaging done. Medications: Medications have been reviewed and remained unchanged. Current Functional Status: Today, Ms. Gray was able to perform bed mobility including turning in bed . Supine to sit x2, demonstrated some progress there and scoot in bed. She is contact guard assista nce for her turning. She worked on wheelchair mobilization, needed help with the right upper extremi ty and left lower extremity to be able to propel and manage propelling of the wheelchair. She needed minimal assistance to manage 1/4 attempts and standby assistance for covering 150 feet with rest maximino aks with the wheelchair. With her occupational therapy, she tolerated manual therapy with gentle pas sive stretching of the shoulders and scapular region. The pain did improve to 3/10. She did have so me dizziness in the morning and has had Zofran for nausea. Progress Towards Rehabilitation Goals: Ms. Gray is making slow progress so far with her rehabilitati on goals. She did ambulate little bit better yesterday, but had nausea, did wheelchair mobilization today. She does have some limitation with nonweightbearing status of the left lower extremity. Assessment: Ms. Gray is an 88-year-old patient with left hip fracture status post repair and making slow progress overall with physical and occupational therapy. She has comorbidities which are manage d including gastrointestinal related issues. She saw Dr. Vela and he determined no surgery or surgi andrez intervention is required for any abdominal issues. She does have hypertension, congestive heart failure, osteoporosis with gastroesophageal reflux and hypotension. Plan: 1.Continue with physical and occupational therapy 3 hours a day, 5 of 7 days. 2.Continue with all comorbid condition medications have been outlined in the past and as stated she will continue Eliquis for DVT prophylaxis. Comorbids That Continue To Impact Rehabilitation: At this point, nonweightbearing status of left low er extremity is a big limitation to her thriving and she has multiple comorbid conditions, but they a re well managed. LB/MODL Voice ID: [id number] Report ID: [id number]
[2023-03-12] MEDS: LEVOTHYROXINE SOD 0.075 MG TAB PO SCH (05:20)
[2023-03-12] MEDS: METOPROLOL XL 25 MG TAB PO SCH (05:20)
[2023-03-12] MEDS: PANTOPRAZOLE 40MG TABLET PO SCH ×2 (07:38→16:33)
[2023-03-12] MEDS: FE SULF/FA/VIT B COMP & C TAB PO SCH (07:39)
[2023-03-12] MEDS: MAGNESIUM OXIDE 400 MG TAB PO SCH ×2 (07:39→20:00)
[2023-03-12] MEDS: FLUOXETINE 10 MG CAP PO SCH (07:39)
[2023-03-12] MEDS: FERROUS SULFATE 325 MG TAB PO SCH ×2 (07:39→20:06)
[2023-03-12] MEDS: CRANBERRY FRUIT EXTRACT 200 MG CAP PO SCH ×2 (07:39→20:06)
[2023-03-12] MEDS: APIXABAN 2.5 MG TABLET PO SCH ×2 (07:40→20:06)
[2023-03-12] MEDS: GABAPENTIN 100 MG CAP PO SCH ×2 (07:40→20:06)
[2023-03-12] MEDS: CYANOCOBALAMIN 1,000 MCG TAB PO SCH (07:40)
[2023-03-12] MEDS: FOLIC ACID 1 MG TABLET PO SCH (07:40)
[2023-03-12] MEDS: JUVEN PACKET PO SCH (08:00)
[2023-03-12] MEDS: MECLIZINE HCL 12.5 MG TAB PO PRN (08:39)
[2023-03-12] MEDS: LIDOCAINE 4% PATCH TOP SCH (08:41)
[2023-03-12] MEDS: FUROSEMIDE 40 MG TABLET PO SCH (10:16)
--- NOTE | 2023-03-12 13:04 | RAD REPORT ---
EXAM DESCRIPTION: RAD - Humerus Left - 03/12/2023 11:32 am CLINICAL HISTORY: pain Pain and swelling. COMPARISON: Humerus Left dated 03/02/2023 FINDINGS: Impacted fracture of the proximal left humerus is again seen. No evidence of significant h ealing at this time. No dislocation.
[2023-03-12] MEDS ORDERED: MECLIZINE HCL 12.5 MG TAB PO SCH (14:00)
[2023-03-12] MEDS: DULOXETINE 20 MG CAP PO SCH (15:14)
[2023-03-12] MEDS: AMINO ACIDS/PROTEIN HYDROLYS 30 ML LIQUID.PKT PO SCH (20:00)
[2023-03-12] MEDS: GUAIFENESIN 600 MG SA TAB PO SCH (20:06)
[2023-03-12] MEDS: D MANNOSE PO SCH (20:07)
[2023-03-13] MEDS: METOPROLOL XL 25 MG TAB PO SCH (05:10)
[2023-03-13] MEDS: LEVOTHYROXINE SOD 0.075 MG TAB PO SCH (05:11)
[2023-03-13] MEDS: LIDOCAINE 4% PATCH TOP SCH (07:04)
[2023-03-13] MEDS: FUROSEMIDE 40 MG TABLET PO SCH (07:05)
[2023-03-13] MEDS: FERROUS SULFATE 325 MG TAB PO SCH ×2 (07:06→19:15)
[2023-03-13] MEDS: APIXABAN 2.5 MG TABLET PO SCH ×2 (07:06→19:15)
[2023-03-13] MEDS: FLUOXETINE 10 MG CAP PO SCH (07:06)
[2023-03-13] MEDS: CRANBERRY FRUIT EXTRACT 200 MG CAP PO SCH ×2 (07:06→19:15)
[2023-03-13] MEDS: FE SULF/FA/VIT B COMP & C TAB PO SCH (07:06)
[2023-03-13] MEDS: FOLIC ACID 1 MG TABLET PO SCH (07:06)
[2023-03-13] MEDS: DULOXETINE 20 MG CAP PO SCH (07:06)
[2023-03-13] MEDS: MAGNESIUM OXIDE 400 MG TAB PO SCH ×2 (07:06→19:15)
[2023-03-13] MEDS: GABAPENTIN 100 MG CAP PO SCH ×2 (07:07→19:15)
[2023-03-13] MEDS: CYANOCOBALAMIN 1,000 MCG TAB PO SCH (07:07)
[2023-03-13] MEDS: PANTOPRAZOLE 40MG TABLET PO SCH ×2 (07:07→16:32)
[2023-03-13] MEDS: AMINO ACIDS/PROTEIN HYDROLYS 30 ML LIQUID.PKT PO SCH ×2 (07:09→19:15)
[2023-03-13 07:43] LABS: Absolute Lymphocytes (CBC) 1.5 K/uL (0.7-4.9); Hematocrit 27.7 % (36.0-45.0); Lymphocytes % 19.3 % (15.3-44.8); MCV 90.8 fL (80-100); MPV 6.3 fL (7.6-11.3); RBC Red Blood Cell Count 3.05 M/uL (3.86-4.86)
[2023-03-13 08:01] LABS: Albumin 2.7 g/dL (3.4-5.0); Magnesium 2.5 mg/dL (1.6-2.4); Potassium 4.8 mEq/L (3.5-5.1)
[2023-03-13 12:22] LABS: Specific Gravity 1.017 (1.005-1.030); Urine Bacteria 20-50 /HPF (<20); Urine Bilirubin NEGATIVE (Negative); Urine Blood 1+ (Negative); Urine Clarity Extremely Turbid (Clear); Urine Color Yellow (Yellow); Urine Glucose NEGATIVE (Negative); Urine Mucus Slight /HPF (None Seen); Urine Protein TRACE (Negative); Urine Urobilinogen Normal (Normal); Urine WBC Clump Moderate /HPF (None Seen)
[2023-03-13] MEDS ORDERED: NA CHLORIDE 0.9% 1,000 ML IV SCH (14:00)
[2023-03-13] MEDS: D MANNOSE PO SCH (19:15)
[2023-03-13] MEDS: GUAIFENESIN 600 MG SA TAB PO SCH (19:15)
--- NOTE | 2023-03-14 02:21 | PN ---
Date of Progress Note: 03/13/2023 Time Of Service: 1:30 p.m. Subjective: Ms. Gray is resting comfortably. She has no acute complaints or any distress and she is somewhat sleepy. Aside from that, no new complaints. Review of Systems: Mildly sleepy. She does say she thinks that medication she is receiving is contributing and she is n ot sure how well she is sleeping at night. Otherwise, she does not have any nausea or vomiting. No significant myalgias or arthralgias. Left hip surgical site shows mild pain, especially as she is re sting. Physical Examination: Vital Signs: Blood pressure 132/58, respiratory rate 18, pulse 78, temperature 97.3, O2 saturation 9 4%. General: Ms. Gray is resting in bed. She is in no significant distress, somewhat sleepy, but is patrice usable. Follows commands appropriately. Neurologic: Cranial nerves, no deficits. Left hip, she does have some mild weakness, likely related to her recent surgery in the left hip, where there was no significant clubbing, cyanosis, or edema n oted in left lower extremity. Laboratory Studies: White blood cell count 7.8, hemoglobin 9.4, platelets 577. Sodium 130, potassiu m 4.8, chloride 95, BUN 53, creatinine 1.05. Prealbumin 19. Her urinalysis did show extremely turbi d, 1+ blood, 500 esterase, red blood cells 5-10, white blood cells greater than 50, clumps of white b lood cells moderate, bacteria 20-50, trace protein. C. diff was negative on 16. Cultures are pend ing. It should be noted that the patient does seem to have some evidence of dehydration at this point and urinary tract infection with low sodium. She was given a liter of fluid and started on Levaquin, ant ibiotic, with repeat blood work to assess in 2 days for correction of hyponatremia. X-ray/imaging: No new x-rays or imaging. Medications: As noted, she is now on Levaquin 500 mg daily. We will continue Synthroid for hypothyr oidism, magnesium oxide for muscle spasms, lidocaine patch for pain, Protonix for GE reflux, Hemocyte Plus for anemia, Toprol-XL for heart rate and blood pressure management, Eliquis 2.5 mg twice daily f or DVT prophylaxis. She will have B12 injections 1000 mcg IM daily for energy levels. We will kayley nue duloxetine 20 mg daily for depression. Current Functional Status: Today, she will work on bed mobility including [id number] turning was a t minimum assistance; supine to sit, moderate assistance. Did have some pain in the left shoulder, w here she is nonweightbearing. X-ray did show a fracture that is not healing and with the gait traini ng, she was able to walk 50 feet with minimum assistance. Did have some retropulsion noted. With he r occupational therapy, she again was lethargic, agreed to participate in bed exercises, and did requ aviva verbal cuing to participate and stay awake with bed exercises. Progress Towards Rehabilitation Goals: Ms. Gray made slower progress today due to somewhat being in a lethargic state, possibly a combination of dehydration, urinary tract infection, and poor sleep. S he does again have IV hydration started, antibiotics going, and B12 IM injections. Assessment: Ms. Gray is an 88-year-old patient with left hip fracture, status post surgical repair. She is nonweightbearing left upper extremity from a proximal left humerus fracture that is impacted. In addition, comorbidities include likely urinary tract infection, insomnia, dehydration, gastroeso phageal reflux, congestive heart failure with fluid management, need to be carefully monitored. Plan: 1.Continue with physical and occupational therapy for 3 hours a day, 5 of 7 days. 2.She will have a liter of fluid, but will be careful to watch for any volume overload. We will con tinue antibiotics as stated, 5 days of Levaquin. Follow up cultures. 3.I will continue with Eliquis for DVT prophylaxis. Continue B12 for more energy level improvement. Continue with Synthroid for hypothyroidism. Comorbidities That Continue To Impact The Rehabilitation: She is nonweightbearing with left upper ex tremity, where she has a fracture and difficult to maintain weightbearing status in left lower extrem ity also, where she has left hip surgery. She is somewhat more lethargic, perhaps due to a combinati on of things including dehydration, poor sleep, urinary tract infection, hyponatremia. Those are semaj ng addressed aggressively. She has B12 injections as well. LB/MODL Voice ID: [id number] Report ID: [id number]
[2023-03-14] MEDS: LEVOTHYROXINE SOD 0.075 MG TAB PO SCH (05:21)
[2023-03-14] MEDS: METOPROLOL XL 25 MG TAB PO SCH (05:21)
[2023-03-14] MEDS: PANTOPRAZOLE 40MG TABLET PO SCH ×2 (07:13→17:19)
[2023-03-14] MEDS ORDERED: CYANOCOBALAMIN 1000MCG/ML INJ IM SCH (08:00)
[2023-03-14] MEDS: AMINO ACIDS/PROTEIN HYDROLYS 30 ML LIQUID.PKT PO SCH ×3 (08:00→20:00)
[2023-03-14] MEDS: LIDOCAINE 4% PATCH TOP SCH (08:35)
[2023-03-14] MEDS: CRANBERRY FRUIT EXTRACT 200 MG CAP PO SCH ×2 (08:36→21:36)
[2023-03-14] MEDS: DULOXETINE 20 MG CAP PO SCH (08:36)
[2023-03-14] MEDS: levoFLOXacin 500 MG TAB PO SCH (08:36)
[2023-03-14] MEDS: FLUOXETINE 10 MG CAP PO SCH (08:36)
[2023-03-14] MEDS: APIXABAN 2.5 MG TABLET PO SCH ×2 (08:36→21:36)
[2023-03-14] MEDS: GABAPENTIN 100 MG CAP PO SCH ×2 (08:37→21:36)
[2023-03-14] MEDS: FOLIC ACID 1 MG TABLET PO SCH (08:37)
[2023-03-14] MEDS: MAGNESIUM OXIDE 400 MG TAB PO SCH ×2 (08:37→21:36)
[2023-03-14] MEDS: FE SULF/FA/VIT B COMP & C TAB PO SCH (09:04)
[2023-03-14] MEDS: FERROUS SULFATE 325 MG TAB PO SCH ×2 (09:04→21:36)
[2023-03-14 09:56] LABS: Absolute Lymphocytes (CBC) 1.1 K/uL (0.7-4.9); Hematocrit 29.1 % (36.0-45.0); Lymphocytes % 12.3 % (15.3-44.8); MCV 92.8 fL (80-100); MPV 6.4 fL (7.6-11.3); RBC Red Blood Cell Count 3.13 M/uL (3.86-4.86)
[2023-03-14 10:25] LABS: Magnesium 2.3 mg/dL (1.6-2.4); Potassium 3.9 mEq/L (3.5-5.1)
--- NOTE | 2023-03-14 14:06 | P.RH.PN ---
Estimated Length of Stay: 13 Expected Discharge Date: 03/15/23 Discharge Disposition Plan: Home Family Support: Yes [facility] Goal: Mobility, Transfers, Self Care Vital Signs: Last Vital Signs Temp 97.7 F 03/14/23 07:03 Pulse 70 03/14/23 07:03 Resp 17 03/14/23 07:03 BP 146/63 H 03/14/23 07:03 Pulse Ox 99 03/14/23 07:03 Laboratory: Laboratory Last Values WBC 9.30 thou/uL (4.3-10.9) 03/14/23 09:28 RBC 3.13 M/uL (3.86-4.86) L 03/14/23 09:28 Hgb 9.5 g/dL (12.0-15.0) L 03/14/23 09:28 Hct 29.1 % (36.0-45.0) L 03/14/23 09:28 MCV 92.8 fL (80-100) 03/14/23 09:28 MCH 30.4 pg (27.0-35.0) 03/14/23 09:28 MCHC 32.8 g/dL (32.0-36.0) 03/14/23 09:28 RDW 15.1 % (12.1-15.2) 03/14/23 09:28 Plt Count 571 thou/uL (152-406) H 03/14/23 09:28 MPV 6.4 fL (7.6-11.3) L 03/14/23 09:28 Neutrophils % 80.1 % (41.7-73.7) H 03/14/23 09:28 Lymphocytes % 12.3 % (15.3-44.8) L 03/14/23 09:28 Monocytes % 6.9 % (3.3-12.3) 03/14/23 09:28 Eosinophils % 0.3 % (0-4.4) 03/14/23 09:28 Basophils % 0.4 % (0-1.3) 03/14/23 09:28 Absolute Neutrophils 7.5 K/uL (1.8-8.0) 03/14/23 09:28 Absolute Lymphocytes 1.1 K/uL (0.7-4.9) 03/14/23 09:28 Absolute Monocytes 0.6 K/uL (0.1-1.3) 03/14/23 09:28 Absolute Eosinophils 0.0 K/uL (0-0.5) 03/14/23 09:28 Absolute Basophils 0.0 K/uL (0-0.5) 03/14/23 09:28 Sodium 131 mEq/L (136-145) L 03/14/23 09:28 Potassium 3.9 mEq/L (3.5-5.1) D 03/14/23 09:28 Chloride 98 mEq/L (98-107) 03/14/23 09:28 Carbon Dioxide 28 mEq/L (21-32) 03/14/23 09:28 Anion Gap 8.9 mEq/L (5.0-15.0) 03/14/23 09:28 BUN 48 mg/dL (7-18) H 03/14/23 09:28 Creatinine 0.98 mg/dL (0.55-1.02) 03/14/23 09:28 Est GFR (CKD-EPI) 56 ml/min (=/>90) L 03/14/23 09:28 Glucose 218 mg/dL (74-106) H 03/14/23 09:28 Calcium 8.8 mg/dL (8.5-10.1) 03/14/23 09:28 Magnesium 2.3 mg/dL (1.6-2.4) 03/14/23 09:28 Albumin 2.7 g/dL (3.4-5.0) L 03/13/23 07:03 Prealbumin 19.0 mg/dL (20-40) L 03/13/23 07:03 Urine Color Yellow (Yellow) 03/13/23 11:30 Urine Clarity Extremely turbid (Clear) H 03/13/23 11:30 Urine pH 6.0 (5.0-7.0) 03/13/23 11:30 Ur Specific [place] 1.017 (1.005-1.030) 03/13/23 11:30 Glucose (UA)(Auto) Negative (Negative) 03/13/23 11:30 Urine Ketones Negative (Negative) 03/13/23 11:30 Urine Blood 1+ (Negative) H 03/13/23 11:30 Urine Nitrite Negative (Negative) 03/13/23 11:30 Urine Bilirubin Negative (Negative) 03/13/23 11:30 Urine Urobilinogen Normal (Normal) 03/13/23 11:30 Ur Leukocyte Esterase 500 Donna/uL (Negative) H 03/13/23 11:30 Urine RBC 5-10 /HPF (None Seen) H 03/13/23 11:30 Urine WBC >50 /HPF (<5) H 03/13/23 11:30 Urine WBC Clumps Moderate /HPF (None Seen) H 03/13/23 11:30 Ur Squamous Epith Cells None seen /HPF (None Seen) 03/13/23 11:30 Unidentified Crystals Few /HPF (None Seen) 03/04/23 19:45 Urine Bacteria 20-50 /HPF (<20) H 03/13/23 11:30 Hyaline Casts 0-5 /LPF (None Seen) 03/13/23 11:30 Urine Mucus Slight /HPF (None Seen) 03/13/23 11:30 Urine Culture Reflexed Reflexed 03/13/23 11:30 Urine Total Protein Trace (Negative) H 03/13/23 11:30 C. difficile Ag & Toxin Ag neg : tox neg (NEG : NEG) 03/09/23 21:40 Weight: 113 lb 9.6 oz Wound Present: No Closed Surgical Incision Present: No Negative Pressure Wound Therapy Present: No Physician Update: Labs reviewed and has elevated BUN and low Na. She will get one L of fluid and 1 gram of NaCl. Now doing better with physical therapy. No CGA to min assist with bed mobility and transfers. Walker 100' and 5 steps with min assistance. Pushed wheelchair 325' with supervision. Summary: Patient's care plan and retirement goals have been reviewed and revised as necessary. Please see the Rehabilitation Signature page for all necessary signatures.
[2023-03-14] MEDS ORDERED: NA CHLORIDE 0.9% 1,000 ML IV SCH (16:00)
[2023-03-14] MEDS: SODIUM CHLORIDE 1 GM TAB PO SCH (17:19)
[2023-03-14] MEDS: D MANNOSE PO SCH (21:00)
[2023-03-14] MEDS: GUAIFENESIN 600 MG SA TAB PO SCH ×2 (21:00→21:36)
[2023-03-15] MEDS: METOPROLOL XL 25 MG TAB PO SCH (05:22)
[2023-03-15] MEDS: LEVOTHYROXINE SOD 0.075 MG TAB PO SCH (05:22)
[2023-03-15] MEDS: PANTOPRAZOLE 40MG TABLET PO SCH (06:48)
[2023-03-15 07:42] VITALS: BP 136/62; TEMP 97.8
[2023-03-15] MEDS ORDERED: CYANOCOBALAMIN 1,000 MCG TAB PO SCH (08:00)
[2023-03-15] MEDS: AMINO ACIDS/PROTEIN HYDROLYS 30 ML LIQUID.PKT PO SCH (08:00)
[2023-03-15] MEDS ORDERED: CYANOCOBALAMIN 1000MCG/ML INJ SQ SCH (08:00)
[2023-03-15] MEDS: APIXABAN 2.5 MG TABLET PO SCH (09:00)
[2023-03-15] MEDS: FE SULF/FA/VIT B COMP & C TAB PO SCH (09:06)
[2023-03-15] MEDS: FERROUS SULFATE 325 MG TAB PO SCH (09:06)
[2023-03-15] MEDS: CRANBERRY FRUIT EXTRACT 200 MG CAP PO SCH (09:07)
[2023-03-15] MEDS: FOLIC ACID 1 MG TABLET PO SCH (09:07)
[2023-03-15] MEDS: levoFLOXacin 500 MG TAB PO SCH (09:07)
[2023-03-15] MEDS: SODIUM CHLORIDE 1 GM TAB PO SCH (09:07)
[2023-03-15] MEDS: DULOXETINE 20 MG CAP PO SCH (09:08)
[2023-03-15] MEDS: GABAPENTIN 100 MG CAP PO SCH (09:08)
[2023-03-15] MEDS: MAGNESIUM OXIDE 400 MG TAB PO SCH (09:08)
[2023-03-15] MEDS: FLUOXETINE 10 MG CAP PO SCH (09:08)
[2023-03-15] MEDS: LIDOCAINE 4% PATCH TOP SCH (09:09)
== END 2023-03-15 10:45 | DRG 560 ==
LOC: 5TH 14:55
PROVIDERS: ADMIT Psychiatry & Neurology Neurology with Special Qualifications in Child Neurology; ATTEND Psychiatry & Neurology Neurology with Special Qualifications in Child Neurology
DX: S72.112D Displaced fracture of greater trochanter of left femur, subsequent encounter for closed fracture with routine healing (principal); E87.1 Hypo-osmolality and hyponatremia; I13.0 Hypertensive heart and chronic kidney disease with heart failure and stage 1 through stage 4 chronic kidney disease, or unspecified chronic kidney disease; I50.32 Chronic diastolic (congestive) heart failure; N39.0 Urinary tract infection, site not specified; I48.91 Unspecified atrial fibrillation; I25.10 Atherosclerotic heart disease of native coronary artery without angina pectoris; N18.30 Chronic kidney disease, stage 3 unspecified; K21.9 Gastro-esophageal reflux disease without esophagitis; E03.9 Hypothyroidism, unspecified; M81.0 Age-related osteoporosis without current pathological fracture; G47.00 Insomnia, unspecified; E86.0 Dehydration
CPT/HCPCS: 36415; 80048; 81001; 82040; 83735; 84134; 85025; 87045; 87046; 87077; 87086; 87088; 87177; 87186; 87209; 87324; 97110; 97116; 97124; 97163; 97165; 97530; 97542; J2001; J3420; J7030; J8597